=== PATIENT | male | born 1980 | race Caucasian/White ===

== ENCOUNTER 2023-04-20 08:13 | Outpatient (OUT) | payer BC, SELFPAY ==
[2023-04-20 08:46] LABS: Basophils Absolute Auto 0.2 10^3/uL (0.0-0.1); Basophils Percent Auto 1.9 % (0.2-2.0); Eosinophils Absolute Auto 0.7 10^3/uL (0.0-0.7); Eosinophils Percent Auto 7.8 % (0.9-7.0); Hematocrit 32.8 % (42.0-54.0); Hemoglobin 10.8 g/dL (14.0-18.0); Immature Granulocytes Abs Auto 0.02 10^3/uL (0.00-0.03); Immature Granulocytes Pct Auto 0.2 % (0.0-0.5); Lymphocytes Absolute Auto 1.3 10^3/uL (1.2-3.8); Lymphocytes Percent Auto 13.9 % (20.5-60.0); Mean Corpuscular HGB Conc 32.9 g/dL (29.9-35.2); Mean Corpuscular Hemoglobin 34.6 pg (25.9-34.0); Mean Corpuscular Volume 105.1 fL (80.0-94.0); Mean Platelet Volume 8.7 fL (9.5-13.5); Monocytes Absolute Auto 0.9 10^3/uL (0.3-0.8); Monocytes Percent Auto 9.7 % (1.7-12.0); Neutrophils Absolute Auto 6.2 10^3/uL (1.4-6.5); Neutrophils Percent Auto 66.5 % (43.0-75.0); Platelet Count 137 10^3/uL (150-450); Red Blood Count 3.12 10^6/uL (4.70-6.10); Red Cell Distribution Width 17.7 % (11.0-15.0); White Blood Count 9.4 10^3/uL (4.0-11.0)
[2023-04-20 09:15] LABS: BOX Test Sent Out Y
[2023-04-20 09:19] LABS: Alanine Aminotransferase 26 U/L (16-63); Albumin Globulin Ratio 0.7; Albumin Level 2.1 g/dL (3.4-5.0); Alkaline Phosphatase 82 U/L (46-116); Anion Gap 6.9; Aspartate Amino Transferase 17 U/L (15-37); BUN Creatinine Ratio 11.8; Bilirubin Total 0.6 mg/dL (0.2-1.0); Calcium 8.5 mg/dL (8.5-10.1); Carbon Dioxide 33.3 mmol/L (21.0-32.0); Chloride 105 mmol/L (98-107); Estimated GFR (African America >60 (>=60); Estimated GFR (Non-African Ame >60 (>=60); Gamma Glutamyl Transpeptidase 152 U/L (15-85); Glucose 80 mg/dL (74-106); Magnesium 1.5 mg/dL (1.8-2.4); Phosphorus 3.4 mg/dL (2.6-4.7); Potassium 4.2 mmol/L (3.5-5.1); Sodium 141 mmol/L (136-145); Total Protein 5.1 g/dL (6.4-8.2)
[2023-04-23 09:08] LABS: Basophils Absolute Auto 0.1 10^3/uL (0.0-0.1); Basophils Percent Auto 2.1 % (0.2-2.0); Eosinophils Absolute Auto 0.5 10^3/uL (0.0-0.7); Eosinophils Percent Auto 8.8 % (0.9-7.0); Hematocrit 32.6 % (42.0-54.0); Hemoglobin 10.7 g/dL (14.0-18.0); Immature Granulocytes Abs Auto 0.01 10^3/uL (0.00-0.03); Immature Granulocytes Pct Auto 0.2 % (0.0-0.5); Lymphocytes Absolute Auto 1.1 10^3/uL (1.2-3.8); Lymphocytes Percent Auto 19.2 % (20.5-60.0); Mean Corpuscular HGB Conc 32.8 g/dL (29.9-35.2); Mean Corpuscular Hemoglobin 34.1 pg (25.9-34.0); Mean Corpuscular Volume 103.8 fL (80.0-94.0); Mean Platelet Volume 8.6 fL (9.5-13.5); Monocytes Absolute Auto 0.5 10^3/uL (0.3-0.8); Monocytes Percent Auto 9.1 % (1.7-12.0); Neutrophils Absolute Auto 3.5 10^3/uL (1.4-6.5); Neutrophils Percent Auto 60.6 % (43.0-75.0); Platelet Count 114 10^3/uL (150-450); Red Blood Count 3.14 10^6/uL (4.70-6.10); White Blood Count 5.8 10^3/uL (4.0-11.0)
[2023-04-23 10:33] LABS: Alanine Aminotransferase 24 U/L (16-63); Albumin Globulin Ratio 0.8; Albumin Level 2.4 g/dL (3.4-5.0); Alkaline Phosphatase 82 U/L (46-116); Anion Gap 6.8; Aspartate Amino Transferase 15 U/L (15-37); BUN Creatinine Ratio 8.7; Bilirubin Total 0.6 mg/dL (0.2-1.0); Calcium 8.8 mg/dL (8.5-10.1); Carbon Dioxide 34.7 mmol/L (21.0-32.0); Chloride 102 mmol/L (98-107); Estimated GFR (African America >60 (>=60); Estimated GFR (Non-African Ame >60 (>=60); Gamma Glutamyl Transpeptidase 138 U/L (15-85); Globulin 3.2 g/dL; Glucose 78 mg/dL (74-106); Magnesium 1.3 mg/dL (1.8-2.4); Phosphorus 3.6 mg/dL (2.6-4.7); Potassium 3.5 mmol/L (3.5-5.1); Sodium 140 mmol/L (136-145); Total Protein 5.6 g/dL (6.4-8.2)
== END 2023-04-20 08:14 | disposition home or self-care (01) ==
LOC: LAB 08:20
DX: K76.9 Liver disease, unspecified (principal); Z48.23 Encounter for aftercare following liver transplant; Z94.4 Liver transplant status; Z41.8 Encounter for other procedures for purposes other than remedying health state; E61.2 Magnesium deficiency; E83.30 Disorder of phosphorus metabolism, unspecified; R73.02 Impaired glucose tolerance (oral)
CPT/HCPCS: 36415; 80053; 82977; 83735; 84100; 85025

== ENCOUNTER 2023-04-23 08:30 | Outpatient (OUT) | payer BC, SELFPAY | END 2023-04-23 08:31 | disposition home or self-care (01) | LOC: LAB 04-28 15:40 | DX: K76.9 Liver disease, unspecified (principal); Z48.23 Encounter for aftercare following liver transplant; Z94.4 Liver transplant status; Z41.8 Encounter for other procedures for purposes other than remedying health state; E61.2 Magnesium deficiency; E83.30 Disorder of phosphorus metabolism, unspecified; R73.02 Impaired glucose tolerance (oral) | CPT/HCPCS: 36415; 80053; 82977; 83735; 84100; 85025 ==

== ENCOUNTER 2023-04-28 07:52 | Outpatient (RCR) | payer BC, SELFPAY ==
[2023-04-28 08:17] LABS: Basophils Absolute Auto 0.1 10^3/uL (0.0-0.1); Basophils Percent Auto 2.2 % (0.2-2.0); Eosinophils Percent Auto 19.4 % (0.9-7.0); Hematocrit 33.1 % (42.0-54.0); Hemoglobin 10.8 g/dL (14.0-18.0); Immature Granulocytes Abs Auto 0.01 10^3/uL (0.00-0.03); Immature Granulocytes Pct Auto 0.2 % (0.0-0.5); Lymphocytes Absolute Auto 1.2 10^3/uL (1.2-3.8); Lymphocytes Percent Auto 23.7 % (20.5-60.0); Mean Corpuscular HGB Conc 32.6 g/dL (29.9-35.2); Mean Corpuscular Hemoglobin 33.5 pg (25.9-34.0); Mean Corpuscular Volume 102.8 fL (80.0-94.0); Mean Platelet Volume 8.6 fL (9.5-13.5); Monocytes Absolute Auto 0.5 10^3/uL (0.3-0.8); Monocytes Percent Auto 10.9 % (1.7-12.0); Neutrophils Absolute Auto 2.2 10^3/uL (1.4-6.5); Neutrophils Percent Auto 43.6 % (43.0-75.0); Platelet Count 166 10^3/uL (150-450); Red Blood Count 3.22 10^6/uL (4.70-6.10); Red Cell Distribution Width 15.8 % (11.0-15.0); White Blood Count 4.9 10^3/uL (4.0-11.0)
[2023-04-28 08:49] LABS: Alanine Aminotransferase 20 U/L (16-63); Albumin Globulin Ratio 0.8; Albumin Level 2.7 g/dL (3.4-5.0); Alkaline Phosphatase 84 U/L (46-116); Aspartate Amino Transferase 14 U/L (15-37); BUN Creatinine Ratio 10.3; Bilirubin Total 0.5 mg/dL (0.2-1.0); Carbon Dioxide 34.9 mmol/L (21.0-32.0); Chloride 103 mmol/L (98-107); Estimated GFR (African America >60 (>=60); Estimated GFR (Non-African Ame >60 (>=60); Gamma Glutamyl Transpeptidase 126 U/L (15-85); Globulin 3.3 g/dL; Glucose 81 mg/dL (74-106); Magnesium 1.5 mg/dL (1.8-2.4); Phosphorus 3.3 mg/dL (2.6-4.7); Potassium 4.9 mmol/L (3.5-5.1); Sodium 140 mmol/L (136-145)
[2023-04-30 08:35] LABS: Basophils Absolute Auto 0.1 10^3/uL (0.0-0.1); Basophils Percent Auto 1.6 % (0.2-2.0); Eosinophils Absolute Auto 0.9 10^3/uL (0.0-0.7); Eosinophils Percent Auto 17.8 % (0.9-7.0); Hematocrit 32.1 % (42.0-54.0); Hemoglobin 10.6 g/dL (14.0-18.0); Immature Granulocytes Abs Auto 0.01 10^3/uL (0.00-0.03); Immature Granulocytes Pct Auto 0.2 % (0.0-0.5); Lymphocytes Absolute Auto 1.2 10^3/uL (1.2-3.8); Lymphocytes Percent Auto 24.8 % (20.5-60.0); Mean Corpuscular Hemoglobin 33.2 pg (25.9-34.0); Mean Corpuscular Volume 100.6 fL (80.0-94.0); Mean Platelet Volume 8.2 fL (9.5-13.5); Monocytes Absolute Auto 0.6 10^3/uL (0.3-0.8); Monocytes Percent Auto 11.9 % (1.7-12.0); Neutrophils Absolute Auto 2.2 10^3/uL (1.4-6.5); Neutrophils Percent Auto 43.7 % (43.0-75.0); Platelet Count 176 10^3/uL (150-450); Red Blood Count 3.19 10^6/uL (4.70-6.10); Red Cell Distribution Width 15.3 % (11.0-15.0)
[2023-04-30 09:12] LABS: Alanine Aminotransferase 19 U/L (16-63); Albumin Globulin Ratio 0.8; Albumin Level 2.8 g/dL (3.4-5.0); Alkaline Phosphatase 91 U/L (46-116); Anion Gap 8.9; Aspartate Amino Transferase 18 U/L (15-37); BUN Creatinine Ratio 11.8; Bilirubin Total 0.5 mg/dL (0.2-1.0); Calcium 9.5 mg/dL (8.5-10.1); Chloride 103 mmol/L (98-107); Cholesterol 163 mg/dL (<=200); Estimated GFR (African America >60 (>=60); Estimated GFR (Non-African Ame >60 (>=60); Gamma Glutamyl Transpeptidase 121 U/L (15-85); Globulin 3.3 g/dL; Glucose 83 mg/dL (74-106); HDL Cholesterol 55 mg/dL (40-60); Magnesium 1.6 mg/dL (1.8-2.4); Phosphorus 3.6 mg/dL (2.6-4.7); Potassium 4.9 mmol/L (3.5-5.1); Sodium 136 mmol/L (136-145); Total Protein 6.1 g/dL (6.4-8.2); Triglycerides 105 mg/dL (<=150)
[2023-05-04 09:25] LABS: Basophils Absolute Auto 0.1 10^3/uL (0.0-0.1); Basophils Percent Auto 2.2 % (0.2-2.0); Eosinophils Absolute Auto 0.6 10^3/uL (0.0-0.7); Eosinophils Percent Auto 11.5 % (0.9-7.0); Hematocrit 33.9 % (42.0-54.0); Hemoglobin 11.2 g/dL (14.0-18.0); Immature Granulocytes Abs Auto 0.01 10^3/uL (0.00-0.03); Immature Granulocytes Pct Auto 0.2 % (0.0-0.5); Lymphocytes Absolute Auto 1.3 10^3/uL (1.2-3.8); Lymphocytes Percent Auto 24.3 % (20.5-60.0); Mean Corpuscular Hemoglobin 32.7 pg (25.9-34.0); Mean Corpuscular Volume 98.8 fL (80.0-94.0); Mean Platelet Volume 8.3 fL (9.5-13.5); Monocytes Absolute Auto 0.7 10^3/uL (0.3-0.8); Monocytes Percent Auto 12.2 % (1.7-12.0); Neutrophils Absolute Auto 2.7 10^3/uL (1.4-6.5); Neutrophils Percent Auto 49.6 % (43.0-75.0); Platelet Count 215 10^3/uL (150-450); Red Blood Count 3.43 10^6/uL (4.70-6.10); Red Cell Distribution Width 14.8 % (11.0-15.0); White Blood Count 5.5 10^3/uL (4.0-11.0)
[2023-05-04 10:47] LABS: Anion Gap 8.2; BUN Creatinine Ratio 12.1; Calcium 9.4 mg/dL (8.5-10.1); Carbon Dioxide 29.9 mmol/L (21.0-32.0); Chloride 105 mmol/L (98-107); Estimated GFR (African America >60 (>=60); Estimated GFR (Non-African Ame >60 (>=60); Glucose 83 mg/dL (74-106); Potassium 5.1 mmol/L (3.5-5.1); Sodium 138 mmol/L (136-145)
[2023-05-04 10:48] LABS: Alanine Aminotransferase 19 U/L (16-63); Albumin Globulin Ratio 0.9; Albumin Level 2.9 g/dL (3.4-5.0); Alkaline Phosphatase 95 U/L (46-116); Aspartate Amino Transferase 17 U/L (15-37); Bilirubin Total 0.5 mg/dL (0.2-1.0); Gamma Glutamyl Transpeptidase 109 U/L (15-85); Globulin 3.4 g/dL; Magnesium 1.4 mg/dL (1.8-2.4); Phosphorus 3.6 mg/dL (2.6-4.7); Total Protein 6.3 g/dL (6.4-8.2)
[2023-05-07 08:21] LABS: Basophils Absolute Auto 0.1 10^3/uL (0.0-0.1); Basophils Percent Auto 1.7 % (0.2-2.0); Eosinophils Absolute Auto 0.4 10^3/uL (0.0-0.7); Eosinophils Percent Auto 5.7 % (0.9-7.0); Hematocrit 34.8 % (42.0-54.0); Hemoglobin 11.7 g/dL (14.0-18.0); Immature Granulocytes Abs Auto 0.01 10^3/uL (0.00-0.03); Immature Granulocytes Pct Auto 0.2 % (0.0-0.5); Lymphocytes Absolute Auto 1.7 10^3/uL (1.2-3.8); Lymphocytes Percent Auto 25.5 % (20.5-60.0); Mean Corpuscular HGB Conc 33.6 g/dL (29.9-35.2); Mean Corpuscular Hemoglobin 33.3 pg (25.9-34.0); Mean Corpuscular Volume 99.1 fL (80.0-94.0); Mean Platelet Volume 8.7 fL (9.5-13.5); Monocytes Absolute Auto 0.8 10^3/uL (0.3-0.8); Monocytes Percent Auto 11.7 % (1.7-12.0); Neutrophils Absolute Auto 3.6 10^3/uL (1.4-6.5); Neutrophils Percent Auto 55.2 % (43.0-75.0); Platelet Count 164 10^3/uL (150-450); Red Blood Count 3.51 10^6/uL (4.70-6.10); Red Cell Distribution Width 14.3 % (11.0-15.0); White Blood Count 6.5 10^3/uL (4.0-11.0)
[2023-05-07 08:55] LABS: Alanine Aminotransferase 16 U/L (16-63); Albumin Level 3.2 g/dL (3.4-5.0); Alkaline Phosphatase 100 U/L (46-116); Anion Gap 9.9; Aspartate Amino Transferase 15 U/L (15-37); BUN Creatinine Ratio 11.9; Bilirubin Total 0.6 mg/dL (0.2-1.0); Calcium 9.5 mg/dL (8.5-10.1); Carbon Dioxide 31.2 mmol/L (21.0-32.0); Chloride 102 mmol/L (98-107); Estimated GFR (African America >60 (>=60); Estimated GFR (Non-African Ame 58 (>=60); Gamma Glutamyl Transpeptidase 103 U/L (15-85); Globulin 3.2 g/dL; Glucose 92 mg/dL (74-106); Magnesium 1.4 mg/dL (1.8-2.4); Phosphorus 4.6 mg/dL (2.6-4.7); Potassium 5.1 mmol/L (3.5-5.1); Sodium 138 mmol/L (136-145); Total Protein 6.4 g/dL (6.4-8.2)
[2023-05-07 09:14] LABS: BOX Test Sent Out Y
[2023-05-11 08:12] LABS: Basophils Absolute Auto 0.1 10^3/uL (0.0-0.1); Basophils Percent Auto 1.8 % (0.2-2.0); Eosinophils Absolute Auto 0.3 10^3/uL (0.0-0.7); Eosinophils Percent Auto 4.9 % (0.9-7.0); Hematocrit 36.8 % (42.0-54.0); Hemoglobin 12.1 g/dL (14.0-18.0); Immature Granulocytes Abs Auto 0.01 10^3/uL (0.00-0.03); Immature Granulocytes Pct Auto 0.2 % (0.0-0.5); Lymphocytes Absolute Auto 1.4 10^3/uL (1.2-3.8); Lymphocytes Percent Auto 23.5 % (20.5-60.0); Mean Corpuscular HGB Conc 32.9 g/dL (29.9-35.2); Mean Corpuscular Hemoglobin 32.3 pg (25.9-34.0); Mean Corpuscular Volume 98.1 fL (80.0-94.0); Mean Platelet Volume 8.9 fL (9.5-13.5); Monocytes Absolute Auto 0.7 10^3/uL (0.3-0.8); Monocytes Percent Auto 10.8 % (1.7-12.0); Neutrophils Absolute Auto 3.6 10^3/uL (1.4-6.5); Neutrophils Percent Auto 58.8 % (43.0-75.0); Platelet Count 161 10^3/uL (150-450); Red Blood Count 3.75 10^6/uL (4.70-6.10); Red Cell Distribution Width 13.7 % (11.0-15.0); White Blood Count 6.1 10^3/uL (4.0-11.0)
[2023-05-11 10:18] LABS: Alanine Aminotransferase 17 U/L (16-63); Albumin Level 3.4 g/dL (3.4-5.0); Alkaline Phosphatase 107 U/L (46-116); Anion Gap 10.8; Aspartate Amino Transferase 16 U/L (15-37); BUN Creatinine Ratio 14.6; Bilirubin Total 0.5 mg/dL (0.2-1.0); Calcium 9.4 mg/dL (8.5-10.1); Carbon Dioxide 26.4 mmol/L (21.0-32.0); Chloride 104 mmol/L (98-107); Estimated GFR (African America >60 (>=60); Estimated GFR (Non-African Ame >60 (>=60); Gamma Glutamyl Transpeptidase 109 U/L (15-85); Globulin 3.3 g/dL; Glucose 79 mg/dL (74-106); Magnesium 1.4 mg/dL (1.8-2.4); Phosphorus 3.2 mg/dL (2.6-4.7); Potassium 4.2 mmol/L (3.5-5.1); Sodium 137 mmol/L (136-145); Total Protein 6.7 g/dL (6.4-8.2)
[2023-05-14 08:24] LABS: Basophils Absolute Auto 0.1 10^3/uL (0.0-0.1); Basophils Percent Auto 1.6 % (0.2-2.0); Eosinophils Absolute Auto 0.3 10^3/uL (0.0-0.7); Eosinophils Percent Auto 5.1 % (0.9-7.0); Hematocrit 36.6 % (42.0-54.0); Immature Granulocytes Abs Auto 0.01 10^3/uL (0.00-0.03); Immature Granulocytes Pct Auto 0.2 % (0.0-0.5); Lymphocytes Absolute Auto 1.5 10^3/uL (1.2-3.8); Lymphocytes Percent Auto 26.5 % (20.5-60.0); Mean Corpuscular HGB Conc 32.8 g/dL (29.9-35.2); Mean Corpuscular Hemoglobin 31.3 pg (25.9-34.0); Mean Corpuscular Volume 95.6 fL (80.0-94.0); Mean Platelet Volume 8.9 fL (9.5-13.5); Monocytes Absolute Auto 0.6 10^3/uL (0.3-0.8); Monocytes Percent Auto 9.8 % (1.7-12.0); Neutrophils Absolute Auto 3.2 10^3/uL (1.4-6.5); Neutrophils Percent Auto 56.8 % (43.0-75.0); Platelet Count 181 10^3/uL (150-450); Red Blood Count 3.83 10^6/uL (4.70-6.10); Red Cell Distribution Width 13.3 % (11.0-15.0); White Blood Count 5.7 10^3/uL (4.0-11.0)
[2023-05-14 09:14] LABS: Alanine Aminotransferase 17 U/L (16-63); Albumin Globulin Ratio 1.1; Albumin Level 3.5 g/dL (3.4-5.0); Alkaline Phosphatase 95 U/L (46-116); Anion Gap 8.6; Aspartate Amino Transferase 13 U/L (15-37); BUN Creatinine Ratio 13.6; Bilirubin Total 0.6 mg/dL (0.2-1.0); Calcium 9.6 mg/dL (8.5-10.1); Carbon Dioxide 33.2 mmol/L (21.0-32.0); Chloride 101 mmol/L (98-107); Estimated GFR (African America >60 (>=60); Estimated GFR (Non-African Ame 59 (>=60); Gamma Glutamyl Transpeptidase 90 U/L (15-85); Globulin 3.3 g/dL; Glucose 96 mg/dL (74-106); Magnesium 1.5 mg/dL (1.8-2.4); Phosphorus 3.9 mg/dL (2.6-4.7); Potassium 4.8 mmol/L (3.5-5.1); Sodium 138 mmol/L (136-145); Total Protein 6.8 g/dL (6.4-8.2)
[2023-05-14 11:57] LABS: BOX Test Sent Out Y
[2023-05-21 08:25] LABS: Basophils Absolute Auto 0.1 10^3/uL (0.0-0.1); Basophils Percent Auto 1.2 % (0.2-2.0); Eosinophils Absolute Auto 0.3 10^3/uL (0.0-0.7); Eosinophils Percent Auto 5.5 % (0.9-7.0); Hematocrit 35.4 % (42.0-54.0); Immature Granulocytes Abs Auto 0.01 10^3/uL (0.00-0.03); Immature Granulocytes Pct Auto 0.2 % (0.0-0.5); Lymphocytes Absolute Auto 1.6 10^3/uL (1.2-3.8); Lymphocytes Percent Auto 26.7 % (20.5-60.0); Mean Corpuscular HGB Conc 33.9 g/dL (29.9-35.2); Mean Corpuscular Hemoglobin 32.1 pg (25.9-34.0); Mean Corpuscular Volume 94.7 fL (80.0-94.0); Mean Platelet Volume 8.7 fL (9.5-13.5); Monocytes Absolute Auto 0.5 10^3/uL (0.3-0.8); Monocytes Percent Auto 9.1 % (1.7-12.0); Neutrophils Absolute Auto 3.4 10^3/uL (1.4-6.5); Neutrophils Percent Auto 57.3 % (43.0-75.0); Platelet Count 162 10^3/uL (150-450); Red Blood Count 3.74 10^6/uL (4.70-6.10); Red Cell Distribution Width 13.2 % (11.0-15.0)
[2023-05-21 09:29] LABS: Alanine Aminotransferase 19 U/L (16-63); Albumin Globulin Ratio 1.2; Albumin Level 3.6 g/dL (3.4-5.0); Alkaline Phosphatase 84 U/L (46-116); Anion Gap 10.7; Aspartate Amino Transferase 17 U/L (15-37); BUN Creatinine Ratio 12.8; Bilirubin Total 0.5 mg/dL (0.2-1.0); Calcium 9.3 mg/dL (8.5-10.1); Carbon Dioxide 28.5 mmol/L (21.0-32.0); Chloride 104 mmol/L (98-107); Estimated GFR (African America >60 (>=60); Estimated GFR (Non-African Ame >60 (>=60); Gamma Glutamyl Transpeptidase 64 U/L (15-85); Glucose 93 mg/dL (74-106); Magnesium 1.6 mg/dL (1.8-2.4); Phosphorus 3.8 mg/dL (2.6-4.7); Potassium 5.2 mmol/L (3.5-5.1); Sodium 138 mmol/L (136-145); Total Protein 6.6 g/dL (6.4-8.2)
[2023-05-21 15:37] LABS: BOX Test Sent Out y
== END 2023-05-23 11:54 | disposition home or self-care (01) ==
LOC: LAB 07:52
DX: K76.9 Liver disease, unspecified (principal); Z48.23 Encounter for aftercare following liver transplant; Z94.4 Liver transplant status; Z41.8 Encounter for other procedures for purposes other than remedying health state; E61.2 Magnesium deficiency; E83.30 Disorder of phosphorus metabolism, unspecified; R73.02 Impaired glucose tolerance (oral)
CPT/HCPCS: 36415; 80053; 80061; 80197; 82977; 83735; 84100; 85025; 87497

== ENCOUNTER 2023-05-25 08:05 | Outpatient (RCR) | payer BC, SELFPAY ==
[2023-05-25 08:55] LABS: Basophils Absolute Auto 0.1 10^3/uL (0.0-0.1); Basophils Percent Auto 0.9 % (0.2-2.0); Eosinophils Absolute Auto 0.4 10^3/uL (0.0-0.7); Hematocrit 37.7 % (42.0-54.0); Hemoglobin 12.5 g/dL (14.0-18.0); Immature Granulocytes Abs Auto 0.01 10^3/uL (0.00-0.03); Immature Granulocytes Pct Auto 0.2 % (0.0-0.5); Lymphocytes Absolute Auto 1.6 10^3/uL (1.2-3.8); Lymphocytes Percent Auto 28.4 % (20.5-60.0); Mean Corpuscular HGB Conc 33.2 g/dL (29.9-35.2); Mean Corpuscular Hemoglobin 31.3 pg (25.9-34.0); Mean Corpuscular Volume 94.3 fL (80.0-94.0); Mean Platelet Volume 9.5 fL (9.5-13.5); Monocytes Absolute Auto 0.5 10^3/uL (0.3-0.8); Monocytes Percent Auto 9.5 % (1.7-12.0); Platelet Count 165 10^3/uL (150-450); White Blood Count 5.6 10^3/uL (4.0-11.0)
[2023-05-25 09:29] LABS: Alanine Aminotransferase 19 U/L (16-63); Albumin Globulin Ratio 1.2; Albumin Level 3.5 g/dL (3.4-5.0); Alkaline Phosphatase 81 U/L (46-116); Aspartate Amino Transferase 15 U/L (15-37); BUN Creatinine Ratio 16.5; Bilirubin Total 0.5 mg/dL (0.2-1.0); Calcium 9.2 mg/dL (8.5-10.1); Carbon Dioxide 29.7 mmol/L (21.0-32.0); Chloride 103 mmol/L (98-107); Estimated GFR (African America >60 (>=60); Estimated GFR (Non-African Ame >60 (>=60); Gamma Glutamyl Transpeptidase 56 U/L (15-85); Glucose 91 mg/dL (74-106); Magnesium 1.5 mg/dL (1.8-2.4); Phosphorus 4.1 mg/dL (2.6-4.7); Potassium 4.7 mmol/L (3.5-5.1); Sodium 138 mmol/L (136-145); Total Protein 6.5 g/dL (6.4-8.2)
[2023-05-28 08:20] LABS: Basophils Absolute Auto 0.1 10^3/uL (0.0-0.1); Basophils Percent Auto 1.3 % (0.2-2.0); Eosinophils Absolute Auto 0.4 10^3/uL (0.0-0.7); Eosinophils Percent Auto 7.1 % (0.9-7.0); Hematocrit 37.2 % (42.0-54.0); Hemoglobin 12.4 g/dL (14.0-18.0); Immature Granulocytes Abs Auto 0.01 10^3/uL (0.00-0.03); Immature Granulocytes Pct Auto 0.2 % (0.0-0.5); Lymphocytes Absolute Auto 1.9 10^3/uL (1.2-3.8); Lymphocytes Percent Auto 31.5 % (20.5-60.0); Mean Corpuscular HGB Conc 33.3 g/dL (29.9-35.2); Mean Corpuscular Hemoglobin 31.2 pg (25.9-34.0); Mean Corpuscular Volume 93.5 fL (80.0-94.0); Monocytes Absolute Auto 0.7 10^3/uL (0.3-0.8); Monocytes Percent Auto 10.9 % (1.7-12.0); Platelet Count 153 10^3/uL (150-450); Red Blood Count 3.98 10^6/uL (4.70-6.10); Red Cell Distribution Width 12.8 % (11.0-15.0); White Blood Count 6.1 10^3/uL (4.0-11.0)
[2023-05-28 08:31] LABS: BOX Test Sent Out Y
[2023-05-28 09:00] LABS: Alanine Aminotransferase 17 U/L (16-63); Albumin Globulin Ratio 1.2; Albumin Level 3.5 g/dL (3.4-5.0); Alkaline Phosphatase 79 U/L (46-116); Anion Gap 10.9; Aspartate Amino Transferase 15 U/L (15-37); BUN Creatinine Ratio 12.7; Bilirubin Total 0.4 mg/dL (0.2-1.0); Calcium 9.3 mg/dL (8.5-10.1); Carbon Dioxide 28.8 mmol/L (21.0-32.0); Chloride 103 mmol/L (98-107); Estimated GFR (African America >60 (>=60); Estimated GFR (Non-African Ame >60 (>=60); Gamma Glutamyl Transpeptidase 53 U/L (15-85); Globulin 2.8 g/dL; Glucose 115 mg/dL (74-106); Magnesium 1.5 mg/dL (1.8-2.4); Phosphorus 4.1 mg/dL (2.6-4.7); Potassium 4.7 mmol/L (3.5-5.1); Sodium 138 mmol/L (136-145); Total Protein 6.3 g/dL (6.4-8.2)
[2023-06-01 10:13] LABS: Basophils Absolute Auto 0.1 10^3/uL (0.0-0.1); Eosinophils Absolute Auto 0.3 10^3/uL (0.0-0.7); Eosinophils Percent Auto 5.6 % (0.9-7.0); Hematocrit 37.7 % (42.0-54.0); Hemoglobin 12.9 g/dL (14.0-18.0); Immature Granulocytes Abs Auto 0.02 10^3/uL (0.00-0.03); Immature Granulocytes Pct Auto 0.3 % (0.0-0.5); Lymphocytes Absolute Auto 1.7 10^3/uL (1.2-3.8); Lymphocytes Percent Auto 29.2 % (20.5-60.0); Mean Corpuscular HGB Conc 34.2 g/dL (29.9-35.2); Mean Corpuscular Hemoglobin 31.2 pg (25.9-34.0); Mean Corpuscular Volume 91.3 fL (80.0-94.0); Mean Platelet Volume 9.4 fL (9.5-13.5); Monocytes Absolute Auto 0.5 10^3/uL (0.3-0.8); Monocytes Percent Auto 8.9 % (1.7-12.0); Neutrophils Absolute Auto 3.2 10^3/uL (1.4-6.5); Platelet Count 149 10^3/uL (150-450); Red Blood Count 4.13 10^6/uL (4.70-6.10); Red Cell Distribution Width 12.8 % (11.0-15.0); White Blood Count 5.9 10^3/uL (4.0-11.0)
[2023-06-01 10:42] LABS: Alanine Aminotransferase 24 U/L (16-63); Albumin Globulin Ratio 1.2; Albumin Level 3.6 g/dL (3.4-5.0); Alkaline Phosphatase 84 U/L (46-116); Anion Gap 10.7; Aspartate Amino Transferase 19 U/L (15-37); BUN Creatinine Ratio 15.8; Bilirubin Total 0.5 mg/dL (0.2-1.0); Calcium 9.4 mg/dL (8.5-10.1); Carbon Dioxide 28.9 mmol/L (21.0-32.0); Chloride 103 mmol/L (98-107); Estimated GFR (African America >60 (>=60); Estimated GFR (Non-African Ame >60 (>=60); Gamma Glutamyl Transpeptidase 55 U/L (15-85); Glucose 108 mg/dL (74-106); Magnesium 1.5 mg/dL (1.8-2.4); Phosphorus 3.5 mg/dL (2.6-4.7); Potassium 4.6 mmol/L (3.5-5.1); Sodium 138 mmol/L (136-145); Total Protein 6.6 g/dL (6.4-8.2)
[2023-06-04 08:56] LABS: Basophils Absolute Auto 0.1 10^3/uL (0.0-0.1); Basophils Percent Auto 1.1 % (0.2-2.0); Eosinophils Absolute Auto 0.3 10^3/uL (0.0-0.7); Eosinophils Percent Auto 6.5 % (0.9-7.0); Hematocrit 37.5 % (42.0-54.0); Hemoglobin 12.6 g/dL (14.0-18.0); Immature Granulocytes Abs Auto 0.01 10^3/uL (0.00-0.03); Immature Granulocytes Pct Auto 0.2 % (0.0-0.5); Lymphocytes Absolute Auto 1.5 10^3/uL (1.2-3.8); Lymphocytes Percent Auto 28.5 % (20.5-60.0); Mean Corpuscular HGB Conc 33.6 g/dL (29.9-35.2); Mean Corpuscular Hemoglobin 30.9 pg (25.9-34.0); Mean Corpuscular Volume 91.9 fL (80.0-94.0); Mean Platelet Volume 9.2 fL (9.5-13.5); Monocytes Absolute Auto 0.6 10^3/uL (0.3-0.8); Monocytes Percent Auto 11.8 % (1.7-12.0); Neutrophils Absolute Auto 2.7 10^3/uL (1.4-6.5); Neutrophils Percent Auto 51.9 % (43.0-75.0); Platelet Count 156 10^3/uL (150-450); Red Blood Count 4.08 10^6/uL (4.70-6.10); Red Cell Distribution Width 12.8 % (11.0-15.0); White Blood Count 5.3 10^3/uL (4.0-11.0)
[2023-06-04 09:25] LABS: Alanine Aminotransferase 23 U/L (16-63); Albumin Globulin Ratio 1.2; Albumin Level 3.7 g/dL (3.4-5.0); Alkaline Phosphatase 83 U/L (46-116); Anion Gap 7.8; Aspartate Amino Transferase 17 U/L (15-37); BUN Creatinine Ratio 13.5; Bilirubin Total 0.6 mg/dL (0.2-1.0); Calcium 9.1 mg/dL (8.5-10.1); Carbon Dioxide 29.8 mmol/L (21.0-32.0); Chloride 103 mmol/L (98-107); Estimated GFR (African America >60 (>=60); Estimated GFR (Non-African Ame >60 (>=60); Gamma Glutamyl Transpeptidase 50 U/L (15-85); Globulin 3.1 g/dL; Glucose 115 mg/dL (74-106); Magnesium 1.6 mg/dL (1.8-2.4); Phosphorus 3.6 mg/dL (2.6-4.7); Potassium 4.6 mmol/L (3.5-5.1); Sodium 136 mmol/L (136-145); Total Protein 6.8 g/dL (6.4-8.2)
[2023-06-08 08:18] LABS: Basophils Absolute Auto 0.1 10^3/uL (0.0-0.1); Basophils Percent Auto 1.6 % (0.2-2.0); Eosinophils Absolute Auto 0.4 10^3/uL (0.0-0.7); Hematocrit 39.2 % (42.0-54.0); Hemoglobin 13.5 g/dL (14.0-18.0); Immature Granulocytes Abs Auto 0.01 10^3/uL (0.00-0.03); Immature Granulocytes Pct Auto 0.2 % (0.0-0.5); Lymphocytes Absolute Auto 1.7 10^3/uL (1.2-3.8); Lymphocytes Percent Auto 30.5 % (20.5-60.0); Mean Corpuscular HGB Conc 34.4 g/dL (29.9-35.2); Mean Corpuscular Hemoglobin 31.1 pg (25.9-34.0); Mean Corpuscular Volume 90.3 fL (80.0-94.0); Mean Platelet Volume 8.9 fL (9.5-13.5); Monocytes Absolute Auto 0.6 10^3/uL (0.3-0.8); Monocytes Percent Auto 9.9 % (1.7-12.0); Neutrophils Absolute Auto 2.8 10^3/uL (1.4-6.5); Neutrophils Percent Auto 50.8 % (43.0-75.0); Platelet Count 159 10^3/uL (150-450); Red Blood Count 4.34 10^6/uL (4.70-6.10); Red Cell Distribution Width 12.7 % (11.0-15.0); White Blood Count 5.5 10^3/uL (4.0-11.0)
[2023-06-08 09:38] LABS: BOX Test Sent Out Y
[2023-06-08 10:31] LABS: Alanine Aminotransferase 15 U/L (16-63); Albumin Globulin Ratio 1.3; Albumin Level 3.8 g/dL (3.4-5.0); Alkaline Phosphatase 80 U/L (46-116); Anion Gap 9.4; Aspartate Amino Transferase 15 U/L (15-37); BUN Creatinine Ratio 13.6; Bilirubin Total 0.5 mg/dL (0.2-1.0); Calcium 9.3 mg/dL (8.5-10.1); Carbon Dioxide 30.9 mmol/L (21.0-32.0); Chloride 103 mmol/L (98-107); Estimated GFR (African America >60 (>=60); Estimated GFR (Non-African Ame >60 (>=60); Gamma Glutamyl Transpeptidase 44 U/L (15-85); Glucose 108 mg/dL (74-106); Magnesium 1.7 mg/dL (1.8-2.4); Phosphorus 3.9 mg/dL (2.6-4.7); Potassium 4.3 mmol/L (3.5-5.1); Sodium 139 mmol/L (136-145); Total Protein 6.8 g/dL (6.4-8.2)
[2023-06-11 08:36] LABS: Basophils Absolute Auto 0.1 10^3/uL (0.0-0.1); Basophils Percent Auto 1.4 % (0.2-2.0); Eosinophils Absolute Auto 0.3 10^3/uL (0.0-0.7); Eosinophils Percent Auto 5.7 % (0.9-7.0); Hematocrit 38.4 % (42.0-54.0); Hemoglobin 13.3 g/dL (14.0-18.0); Immature Granulocytes Abs Auto 0.02 10^3/uL (0.00-0.03); Immature Granulocytes Pct Auto 0.4 % (0.0-0.5); Lymphocytes Absolute Auto 1.6 10^3/uL (1.2-3.8); Lymphocytes Percent Auto 31.8 % (20.5-60.0); Mean Corpuscular HGB Conc 34.6 g/dL (29.9-35.2); Mean Corpuscular Hemoglobin 30.9 pg (25.9-34.0); Mean Corpuscular Volume 89.3 fL (80.0-94.0); Mean Platelet Volume 8.9 fL (9.5-13.5); Monocytes Absolute Auto 0.5 10^3/uL (0.3-0.8); Monocytes Percent Auto 9.8 % (1.7-12.0); Neutrophils Absolute Auto 2.6 10^3/uL (1.4-6.5); Neutrophils Percent Auto 50.9 % (43.0-75.0); Platelet Count 160 10^3/uL (150-450); Red Cell Distribution Width 12.7 % (11.0-15.0); White Blood Count 5.1 10^3/uL (4.0-11.0)
[2023-06-11 09:41] LABS: Alanine Aminotransferase 19 U/L (16-63); Albumin Globulin Ratio 1.3; Albumin Level 3.7 g/dL (3.4-5.0); Alkaline Phosphatase 81 U/L (46-116); Anion Gap 9.3; Aspartate Amino Transferase 17 U/L (15-37); BUN Creatinine Ratio 15.5; Bilirubin Total 0.6 mg/dL (0.2-1.0); Calcium 9.1 mg/dL (8.5-10.1); Carbon Dioxide 30.4 mmol/L (21.0-32.0); Chloride 102 mmol/L (98-107); Estimated GFR (African America >60 (>=60); Estimated GFR (Non-African Ame >60 (>=60); Gamma Glutamyl Transpeptidase 39 U/L (15-85); Globulin 2.9 g/dL; Glucose 96 mg/dL (74-106); Magnesium 1.7 mg/dL (1.8-2.4); Phosphorus 3.8 mg/dL (2.6-4.7); Potassium 4.7 mmol/L (3.5-5.1); Sodium 137 mmol/L (136-145); Total Protein 6.6 g/dL (6.4-8.2)
[2023-06-15 08:32] LABS: Basophils Absolute Auto 0.1 10^3/uL (0.0-0.1); Basophils Percent Auto 1.3 % (0.2-2.0); Eosinophils Absolute Auto 0.3 10^3/uL (0.0-0.7); Hematocrit 39.7 % (42.0-54.0); Hemoglobin 13.4 g/dL (14.0-18.0); Immature Granulocytes Abs Auto 0.02 10^3/uL (0.00-0.03); Immature Granulocytes Pct Auto 0.4 % (0.0-0.5); Lymphocytes Absolute Auto 1.8 10^3/uL (1.2-3.8); Lymphocytes Percent Auto 33.5 % (20.5-60.0); Mean Corpuscular HGB Conc 33.8 g/dL (29.9-35.2); Mean Corpuscular Hemoglobin 30.5 pg (25.9-34.0); Mean Corpuscular Volume 90.2 fL (80.0-94.0); Mean Platelet Volume 8.8 fL (9.5-13.5); Monocytes Absolute Auto 0.6 10^3/uL (0.3-0.8); Monocytes Percent Auto 10.6 % (1.7-12.0); Neutrophils Absolute Auto 2.6 10^3/uL (1.4-6.5); Neutrophils Percent Auto 49.2 % (43.0-75.0); Platelet Count 168 10^3/uL (150-450); Red Cell Distribution Width 12.5 % (11.0-15.0); White Blood Count 5.4 10^3/uL (4.0-11.0)
[2023-06-15 10:20] LABS: Alanine Aminotransferase 19 U/L (16-63); Albumin Globulin Ratio 1.3; Albumin Level 3.7 g/dL (3.4-5.0); Alkaline Phosphatase 82 U/L (46-116); Anion Gap 11.6; Aspartate Amino Transferase 16 U/L (15-37); BUN Creatinine Ratio 16.2; Bilirubin Total 0.5 mg/dL (0.2-1.0); Calcium 9.1 mg/dL (8.5-10.1); Carbon Dioxide 29.9 mmol/L (21.0-32.0); Chloride 103 mmol/L (98-107); Estimated GFR (African America >60 (>=60); Estimated GFR (Non-African Ame >60 (>=60); Gamma Glutamyl Transpeptidase 41 U/L (15-85); Globulin 2.9 g/dL; Glucose 90 mg/dL (74-106); Magnesium 1.5 mg/dL (1.8-2.4); Phosphorus 4.2 mg/dL (2.6-4.7); Potassium 4.5 mmol/L (3.5-5.1); Sodium 140 mmol/L (136-145); Total Protein 6.6 g/dL (6.4-8.2)
[2023-06-15 13:30] LABS: BOX Test Sent Out DONE
[2023-06-18 08:24] LABS: Basophils Absolute Auto 0.1 10^3/uL (0.0-0.1); Basophils Percent Auto 1.3 % (0.2-2.0); Eosinophils Absolute Auto 0.2 10^3/uL (0.0-0.7); Eosinophils Percent Auto 4.4 % (0.9-7.0); Hematocrit 39.9 % (42.0-54.0); Hemoglobin 13.4 g/dL (14.0-18.0); Lymphocytes Absolute Auto 1.9 10^3/uL (1.2-3.8); Lymphocytes Percent Auto 36.2 % (20.5-60.0); Mean Corpuscular HGB Conc 33.6 g/dL (29.9-35.2); Mean Corpuscular Hemoglobin 30.5 pg (25.9-34.0); Mean Corpuscular Volume 90.7 fL (80.0-94.0); Mean Platelet Volume 8.9 fL (9.5-13.5); Monocytes Absolute Auto 0.6 10^3/uL (0.3-0.8); Monocytes Percent Auto 10.6 % (1.7-12.0); Neutrophils Absolute Auto 2.5 10^3/uL (1.4-6.5); Neutrophils Percent Auto 47.5 % (43.0-75.0); Platelet Count 150 10^3/uL (150-450); Red Cell Distribution Width 12.6 % (11.0-15.0); White Blood Count 5.2 10^3/uL (4.0-11.0)
[2023-06-18 09:11] LABS: Alanine Aminotransferase 19 U/L (16-63); Albumin Globulin Ratio 1.3; Albumin Level 3.8 g/dL (3.4-5.0); Alkaline Phosphatase 84 U/L (46-116); Anion Gap 11.8; Aspartate Amino Transferase 18 U/L (15-37); Bilirubin Total 0.6 mg/dL (0.2-1.0); Calcium 9.2 mg/dL (8.5-10.1); Carbon Dioxide 27.6 mmol/L (21.0-32.0); Chloride 103 mmol/L (98-107); Estimated GFR (African America >60 (>=60); Estimated GFR (Non-African Ame >60 (>=60); Gamma Glutamyl Transpeptidase 36 U/L (15-85); Glucose 96 mg/dL (74-106); Magnesium 1.6 mg/dL (1.8-2.4); Phosphorus 4.2 mg/dL (2.6-4.7); Potassium 4.4 mmol/L (3.5-5.1); Sodium 138 mmol/L (136-145); Total Protein 6.8 g/dL (6.4-8.2)
[2023-06-18 10:04] LABS: BOX Test Sent Out Y
[2023-06-22 09:50] LABS: Basophils Absolute Auto 0.1 10^3/uL (0.0-0.1); Basophils Percent Auto 1.2 % (0.2-2.0); Eosinophils Absolute Auto 0.2 10^3/uL (0.0-0.7); Eosinophils Percent Auto 4.8 % (0.9-7.0); Hematocrit 40.2 % (42.0-54.0); Hemoglobin 13.6 g/dL (14.0-18.0); Lymphocytes Absolute Auto 1.8 10^3/uL (1.2-3.8); Lymphocytes Percent Auto 37.4 % (20.5-60.0); Mean Corpuscular HGB Conc 33.8 g/dL (29.9-35.2); Mean Corpuscular Hemoglobin 30.2 pg (25.9-34.0); Mean Corpuscular Volume 89.3 fL (80.0-94.0); Mean Platelet Volume 9.6 fL (9.5-13.5); Monocytes Absolute Auto 0.5 10^3/uL (0.3-0.8); Monocytes Percent Auto 10.3 % (1.7-12.0); Neutrophils Absolute Auto 2.2 10^3/uL (1.4-6.5); Neutrophils Percent Auto 46.3 % (43.0-75.0); Platelet Count 172 10^3/uL (150-450); Red Cell Distribution Width 12.5 % (11.0-15.0); White Blood Count 4.8 10^3/uL (4.0-11.0)
[2023-06-22 10:27] LABS: Alanine Aminotransferase 19 U/L (16-63); Albumin Globulin Ratio 1.2; Albumin Level 3.7 g/dL (3.4-5.0); Alkaline Phosphatase 86 U/L (46-116); Anion Gap 9.8; Aspartate Amino Transferase 12 U/L (15-37); BUN Creatinine Ratio 16.3; Bilirubin Total 0.5 mg/dL (0.2-1.0); Calcium 9.1 mg/dL (8.5-10.1); Carbon Dioxide 31.1 mmol/L (21.0-32.0); Chloride 104 mmol/L (98-107); Estimated GFR (African America >60 (>=60); Estimated GFR (Non-African Ame >60 (>=60); Gamma Glutamyl Transpeptidase 36 U/L (15-85); Glucose 95 mg/dL (74-106); Magnesium 1.6 mg/dL (1.8-2.4); Phosphorus 4.2 mg/dL (2.6-4.7); Potassium 4.9 mmol/L (3.5-5.1); Sodium 140 mmol/L (136-145); Total Protein 6.7 g/dL (6.4-8.2)
== END 2023-06-23 17:51 | disposition home or self-care (01) ==
LOC: LAB 08:05
DX: K76.9 Liver disease, unspecified (principal); Z48.23 Encounter for aftercare following liver transplant; Z94.4 Liver transplant status; Z41.8 Encounter for other procedures for purposes other than remedying health state; E61.2 Magnesium deficiency; E83.30 Disorder of phosphorus metabolism, unspecified; R73.02 Impaired glucose tolerance (oral)
CPT/HCPCS: 36415; 80053; 80321; 82977; 83735; 84100; 85025

== ENCOUNTER 2023-06-25 09:00 | Outpatient (RCR) | payer BC, SELFPAY ==
[2023-06-25 09:29] LABS: Basophils Absolute Auto 0.1 10^3/uL (0.0-0.1); Eosinophils Absolute Auto 0.3 10^3/uL (0.0-0.7); Eosinophils Percent Auto 5.2 % (0.9-7.0); Hematocrit 39.7 % (42.0-54.0); Hemoglobin 13.6 g/dL (14.0-18.0); Immature Granulocytes Abs Auto 0.01 10^3/uL (0.00-0.03); Immature Granulocytes Pct Auto 0.2 % (0.0-0.5); Lymphocytes Absolute Auto 1.7 10^3/uL (1.2-3.8); Lymphocytes Percent Auto 33.5 % (20.5-60.0); Mean Corpuscular HGB Conc 34.3 g/dL (29.9-35.2); Mean Corpuscular Hemoglobin 29.8 pg (25.9-34.0); Mean Corpuscular Volume 86.9 fL (80.0-94.0); Mean Platelet Volume 9.1 fL (9.5-13.5); Monocytes Absolute Auto 0.5 10^3/uL (0.3-0.8); Monocytes Percent Auto 9.8 % (1.7-12.0); Neutrophils Absolute Auto 2.5 10^3/uL (1.4-6.5); Neutrophils Percent Auto 50.3 % (43.0-75.0); Platelet Count 165 10^3/uL (150-450); Red Blood Count 4.57 10^6/uL (4.70-6.10); Red Cell Distribution Width 12.3 % (11.0-15.0)
[2023-06-25 09:41] LABS: BOX Test Sent Out Y
[2023-06-25 09:52] LABS: Alanine Aminotransferase 18 U/L (16-63); Albumin Globulin Ratio 1.3; Albumin Level 3.8 g/dL (3.4-5.0); Alkaline Phosphatase 87 U/L (46-116); Aspartate Amino Transferase 15 U/L (15-37); BUN Creatinine Ratio 14.9; Bilirubin Total 0.6 mg/dL (0.2-1.0); Calcium 9.1 mg/dL (8.5-10.1); Carbon Dioxide 29.6 mmol/L (21.0-32.0); Chloride 101 mmol/L (98-107); Estimated GFR (African America >60 (>=60); Estimated GFR (Non-African Ame >60 (>=60); Gamma Glutamyl Transpeptidase 35 U/L (15-85); Glucose 106 mg/dL (74-106); Magnesium 1.4 mg/dL (1.8-2.4); Phosphorus 4.6 mg/dL (2.6-4.7); Potassium 4.6 mmol/L (3.5-5.1); Sodium 136 mmol/L (136-145); Total Protein 6.8 g/dL (6.4-8.2)
[2023-06-29 08:40] LABS: Basophils Absolute Auto 0.1 10^3/uL (0.0-0.1); Basophils Percent Auto 1.3 % (0.2-2.0); Eosinophils Absolute Auto 0.3 10^3/uL (0.0-0.7); Eosinophils Percent Auto 5.4 % (0.9-7.0); Hematocrit 38.6 % (42.0-54.0); Hemoglobin 13.3 g/dL (14.0-18.0); Lymphocytes Absolute Auto 1.8 10^3/uL (1.2-3.8); Lymphocytes Percent Auto 37.8 % (20.5-60.0); Mean Corpuscular HGB Conc 34.5 g/dL (29.9-35.2); Mean Corpuscular Hemoglobin 30.3 pg (25.9-34.0); Mean Corpuscular Volume 87.9 fL (80.0-94.0); Mean Platelet Volume 10.3 fL (9.5-13.5); Monocytes Absolute Auto 0.5 10^3/uL (0.3-0.8); Monocytes Percent Auto 10.8 % (1.7-12.0); Neutrophils Absolute Auto 2.1 10^3/uL (1.4-6.5); Neutrophils Percent Auto 44.7 % (43.0-75.0); Platelet Count 150 10^3/uL (150-450); Red Blood Count 4.39 10^6/uL (4.70-6.10); Red Cell Distribution Width 12.3 % (11.0-15.0); White Blood Count 4.7 10^3/uL (4.0-11.0)
[2023-06-29 08:50] LABS: Alanine Aminotransferase 20 U/L (16-63); Albumin Globulin Ratio 1.2; Albumin Level 3.6 g/dL (3.4-5.0); Alkaline Phosphatase 88 U/L (46-116); Anion Gap 10.9; Aspartate Amino Transferase 18 U/L (15-37); BUN Creatinine Ratio 18.1; Bilirubin Total 0.6 mg/dL (0.2-1.0); Calcium 9.4 mg/dL (8.5-10.1); Carbon Dioxide 29.1 mmol/L (21.0-32.0); Chloride 102 mmol/L (98-107); Estimated GFR (African America >60 (>=60); Estimated GFR (Non-African Ame >60 (>=60); Gamma Glutamyl Transpeptidase 31 U/L (15-85); Globulin 3.1 g/dL; Glucose 98 mg/dL (74-106); Phosphorus 4.9 mg/dL (2.6-4.7); Sodium 137 mmol/L (136-145); Total Protein 6.7 g/dL (6.4-8.2)
[2023-06-29 09:18] LABS: Magnesium 1.6 mg/dL (1.8-2.4)
[2023-07-06 08:23] LABS: Basophils Absolute Auto 0.1 10^3/uL (0.0-0.1); Basophils Percent Auto 1.1 % (0.2-2.0); Eosinophils Absolute Auto 0.3 10^3/uL (0.0-0.7); Eosinophils Percent Auto 5.8 % (0.9-7.0); Hematocrit 38.2 % (42.0-54.0); Immature Granulocytes Abs Auto 0.01 10^3/uL (0.00-0.03); Immature Granulocytes Pct Auto 0.2 % (0.0-0.5); Lymphocytes Absolute Auto 1.9 10^3/uL (1.2-3.8); Lymphocytes Percent Auto 33.2 % (20.5-60.0); Mean Corpuscular Hemoglobin 29.8 pg (25.9-34.0); Mean Corpuscular Volume 87.6 fL (80.0-94.0); Mean Platelet Volume 9.5 fL (9.5-13.5); Monocytes Absolute Auto 0.6 10^3/uL (0.3-0.8); Monocytes Percent Auto 10.9 % (1.7-12.0); Neutrophils Absolute Auto 2.8 10^3/uL (1.4-6.5); Neutrophils Percent Auto 48.8 % (43.0-75.0); Platelet Count 163 10^3/uL (150-450); Red Blood Count 4.36 10^6/uL (4.70-6.10); Red Cell Distribution Width 12.4 % (11.0-15.0); White Blood Count 5.7 10^3/uL (4.0-11.0)
[2023-07-06 08:27] LABS: BOX Test Sent Out Y
[2023-07-06 08:51] LABS: Alanine Aminotransferase 23 U/L (16-63); Albumin Globulin Ratio 1.2; Albumin Level 3.6 g/dL (3.4-5.0); Alkaline Phosphatase 89 U/L (46-116); Anion Gap 10.6; Aspartate Amino Transferase 13 U/L (15-37); BUN Creatinine Ratio 17.8; Bilirubin Total 0.4 mg/dL (0.2-1.0); Calcium 8.8 mg/dL (8.5-10.1); Carbon Dioxide 31.2 mmol/L (21.0-32.0); Chloride 102 mmol/L (98-107); Estimated GFR (African America >60 (>=60); Estimated GFR (Non-African Ame >60 (>=60); Gamma Glutamyl Transpeptidase 31 U/L (15-85); Glucose 117 mg/dL (74-106); Phosphorus 4.3 mg/dL (2.6-4.7); Potassium 4.8 mmol/L (3.5-5.1); Sodium 139 mmol/L (136-145); Total Protein 6.6 g/dL (6.4-8.2)
[2023-07-06 09:12] LABS: Magnesium 1.6 mg/dL (1.8-2.4)
[2023-07-13 08:21] LABS: Basophils Absolute Auto 0.1 10^3/uL (0.0-0.1); Eosinophils Absolute Auto 0.3 10^3/uL (0.0-0.7); Eosinophils Percent Auto 5.9 % (0.9-7.0); Hematocrit 38.3 % (42.0-54.0); Hemoglobin 13.3 g/dL (14.0-18.0); Immature Granulocytes Abs Auto 0.02 10^3/uL (0.00-0.03); Immature Granulocytes Pct Auto 0.4 % (0.0-0.5); Lymphocytes Absolute Auto 1.8 10^3/uL (1.2-3.8); Lymphocytes Percent Auto 33.3 % (20.5-60.0); Mean Corpuscular HGB Conc 34.7 g/dL (29.9-35.2); Mean Corpuscular Hemoglobin 29.9 pg (25.9-34.0); Mean Corpuscular Volume 86.1 fL (80.0-94.0); Mean Platelet Volume 9.4 fL (9.5-13.5); Monocytes Absolute Auto 0.5 10^3/uL (0.3-0.8); Monocytes Percent Auto 9.1 % (1.7-12.0); Neutrophils Absolute Auto 2.6 10^3/uL (1.4-6.5); Neutrophils Percent Auto 50.3 % (43.0-75.0); Platelet Count 163 10^3/uL (150-450); Red Blood Count 4.45 10^6/uL (4.70-6.10); Red Cell Distribution Width 12.6 % (11.0-15.0); White Blood Count 5.3 10^3/uL (4.0-11.0)
[2023-07-13 09:05] LABS: BOX Test Sent Out Y
[2023-07-13 09:51] LABS: Alanine Aminotransferase 15 U/L (16-63); Albumin Globulin Ratio 1.3; Albumin Level 3.7 g/dL (3.4-5.0); Alkaline Phosphatase 89 U/L (46-116); Anion Gap 10.4; Aspartate Amino Transferase 15 U/L (15-37); BUN Creatinine Ratio 17.3; Bilirubin Total 0.5 mg/dL (0.2-1.0); Calcium 9.2 mg/dL (8.5-10.1); Carbon Dioxide 30.9 mmol/L (21.0-32.0); Chloride 103 mmol/L (98-107); Estimated GFR (African America >60 (>=60); Estimated GFR (Non-African Ame >60 (>=60); Gamma Glutamyl Transpeptidase 25 U/L (15-85); Globulin 2.9 g/dL; Glucose 105 mg/dL (74-106); Magnesium 1.5 mg/dL (1.8-2.4); Phosphorus 3.8 mg/dL (2.6-4.7); Potassium 4.3 mmol/L (3.5-5.1); Sodium 140 mmol/L (136-145); Total Protein 6.6 g/dL (6.4-8.2)
[2023-07-20 08:14] LABS: Basophils Absolute Auto 0.1 10^3/uL (0.0-0.1); Basophils Percent Auto 1.4 % (0.2-2.0); Eosinophils Absolute Auto 0.4 10^3/uL (0.0-0.7); Hemoglobin 13.6 g/dL (14.0-18.0); Immature Granulocytes Abs Auto 0.02 10^3/uL (0.00-0.03); Immature Granulocytes Pct Auto 0.4 % (0.0-0.5); Lymphocytes Absolute Auto 1.8 10^3/uL (1.2-3.8); Lymphocytes Percent Auto 34.4 % (20.5-60.0); Mean Corpuscular Hemoglobin 29.7 pg (25.9-34.0); Mean Corpuscular Volume 87.3 fL (80.0-94.0); Mean Platelet Volume 9.4 fL (9.5-13.5); Monocytes Absolute Auto 0.6 10^3/uL (0.3-0.8); Monocytes Percent Auto 11.7 % (1.7-12.0); Neutrophils Absolute Auto 2.3 10^3/uL (1.4-6.5); Neutrophils Percent Auto 45.1 % (43.0-75.0); Platelet Count 172 10^3/uL (150-450); Red Blood Count 4.58 10^6/uL (4.70-6.10); Red Cell Distribution Width 12.9 % (11.0-15.0); White Blood Count 5.1 10^3/uL (4.0-11.0)
[2023-07-20 09:25] LABS: Alanine Aminotransferase 23 U/L (16-63); Albumin Globulin Ratio 1.2; Albumin Level 3.5 g/dL (3.4-5.0); Alkaline Phosphatase 94 U/L (46-116); Anion Gap 9.5; Aspartate Amino Transferase 17 U/L (15-37); BUN Creatinine Ratio 17.8; Bilirubin Total 0.4 mg/dL (0.2-1.0); Calcium 8.7 mg/dL (8.5-10.1); Carbon Dioxide 31.9 mmol/L (21.0-32.0); Chloride 102 mmol/L (98-107); Estimated GFR (African America >60 (>=60); Estimated GFR (Non-African Ame >60 (>=60); Gamma Glutamyl Transpeptidase 34 U/L (15-85); Glucose 98 mg/dL (74-106); Phosphorus 4.4 mg/dL (2.6-4.7); Potassium 4.4 mmol/L (3.5-5.1); Sodium 139 mmol/L (136-145); Total Protein 6.5 g/dL (6.4-8.2)
[2023-07-20 09:47] LABS: Magnesium 1.6 mg/dL (1.8-2.4)
[2023-08-10 08:19] LABS: Basophils Absolute Auto 0.1 10^3/uL (0.0-0.1); Basophils Percent Auto 1.4 % (0.2-2.0); Eosinophils Absolute Auto 0.4 10^3/uL (0.0-0.7); Eosinophils Percent Auto 5.6 % (0.9-7.0); Hematocrit 40.1 % (42.0-54.0); Hemoglobin 13.6 g/dL (14.0-18.0); Immature Granulocytes Abs Auto 0.02 10^3/uL (0.00-0.03); Immature Granulocytes Pct Auto 0.3 % (0.0-0.5); Lymphocytes Percent Auto 30.6 % (20.5-60.0); Mean Corpuscular HGB Conc 33.9 g/dL (29.9-35.2); Mean Corpuscular Hemoglobin 29.5 pg (25.9-34.0); Mean Platelet Volume 9.4 fL (9.5-13.5); Monocytes Absolute Auto 0.7 10^3/uL (0.3-0.8); Monocytes Percent Auto 10.5 % (1.7-12.0); Neutrophils Absolute Auto 3.3 10^3/uL (1.4-6.5); Neutrophils Percent Auto 51.6 % (43.0-75.0); Platelet Count 171 10^3/uL (150-450); Red Blood Count 4.61 10^6/uL (4.70-6.10); Red Cell Distribution Width 12.6 % (11.0-15.0); White Blood Count 6.4 10^3/uL (4.0-11.0)
[2023-08-10 09:21] LABS: Alanine Aminotransferase 24 U/L (16-63); Albumin Globulin Ratio 1.1; Albumin Level 3.5 g/dL (3.4-5.0); Alkaline Phosphatase 96 U/L (46-116); Anion Gap 11.8; Aspartate Amino Transferase 13 U/L (15-37); BUN Creatinine Ratio 19.6; Bilirubin Total 0.5 mg/dL (0.2-1.0); Calcium 9.2 mg/dL (8.5-10.1); Carbon Dioxide 30.5 mmol/L (21.0-32.0); Chloride 100 mmol/L (98-107); Chol HDL Ratio 3.6; Cholesterol 169 mg/dL (<=200); Estimated GFR (African America >60 (>=60); Estimated GFR (Non-African Ame >60 (>=60); Gamma Glutamyl Transpeptidase 31 U/L (15-85); Globulin 3.3 g/dL; Glucose 101 mg/dL (74-106); HDL Cholesterol 47 mg/dL (40-60); Magnesium 1.9 mg/dL (1.8-2.4); Phosphorus 3.9 mg/dL (2.6-4.7); Potassium 4.3 mmol/L (3.5-5.1); Sodium 138 mmol/L (136-145); Total Protein 6.8 g/dL (6.4-8.2); Triglycerides 166 mg/dL (<=150); VLDL CHOLESTEROL 33.2 mg/dL
== END 2023-07-23 16:56 | disposition home or self-care (01) ==
LOC: LAB 09:00
DX: K76.9 Liver disease, unspecified (principal); Z48.23 Encounter for aftercare following liver transplant; Z94.4 Liver transplant status; Z41.8 Encounter for other procedures for purposes other than remedying health state; E61.2 Magnesium deficiency; E83.30 Disorder of phosphorus metabolism, unspecified; R73.02 Impaired glucose tolerance (oral)
CPT/HCPCS: 36415; 80053; 80321; 82977; 83735; 84100; 85025

== ENCOUNTER 2023-07-27 08:02 | Outpatient (RCR) | payer BC, SELFPAY ==
[2023-07-27 08:28] LABS: Basophils Absolute Auto 0.1 10^3/uL (0.0-0.1); Basophils Percent Auto 1.1 % (0.2-2.0); Eosinophils Absolute Auto 0.4 10^3/uL (0.0-0.7); Eosinophils Percent Auto 6.7 % (0.9-7.0); Hematocrit 39.8 % (42.0-54.0); Hemoglobin 13.7 g/dL (14.0-18.0); Immature Granulocytes Abs Auto 0.01 10^3/uL (0.00-0.03); Immature Granulocytes Pct Auto 0.2 % (0.0-0.5); Lymphocytes Absolute Auto 1.7 10^3/uL (1.2-3.8); Lymphocytes Percent Auto 31.2 % (20.5-60.0); Mean Corpuscular HGB Conc 34.4 g/dL (29.9-35.2); Mean Corpuscular Hemoglobin 29.5 pg (25.9-34.0); Mean Corpuscular Volume 85.6 fL (80.0-94.0); Mean Platelet Volume 9.4 fL (9.5-13.5); Monocytes Absolute Auto 0.6 10^3/uL (0.3-0.8); Monocytes Percent Auto 11.2 % (1.7-12.0); Neutrophils Absolute Auto 2.7 10^3/uL (1.4-6.5); Neutrophils Percent Auto 49.6 % (43.0-75.0); Platelet Count 174 10^3/uL (150-450); Red Blood Count 4.65 10^6/uL (4.70-6.10); Red Cell Distribution Width 12.8 % (11.0-15.0); White Blood Count 5.4 10^3/uL (4.0-11.0)
[2023-07-27 09:20] LABS: Alanine Aminotransferase 18 U/L (16-63); Albumin Globulin Ratio 1.2; Albumin Level 3.8 g/dL (3.4-5.0); Alkaline Phosphatase 93 U/L (46-116); Aspartate Amino Transferase 18 U/L (15-37); BUN Creatinine Ratio 18.6; Bilirubin Total 0.9 mg/dL (0.2-1.0); Calcium 9.3 mg/dL (8.5-10.1); Carbon Dioxide 30.5 mmol/L (21.0-32.0); Chloride 100 mmol/L (98-107); Estimated GFR (African America >60 (>=60); Estimated GFR (Non-African Ame >60 (>=60); Gamma Glutamyl Transpeptidase 35 U/L (15-85); Globulin 3.2 g/dL; Glucose 99 mg/dL (74-106); Magnesium 1.6 mg/dL (1.8-2.4); Phosphorus 4.1 mg/dL (2.6-4.7); Potassium 4.5 mmol/L (3.5-5.1); Sodium 138 mmol/L (136-145)
== END 2023-08-21 15:47 | disposition home or self-care (01) ==
LOC: LAB 08:02
DX: K76.9 Liver disease, unspecified (principal); Z48.23 Encounter for aftercare following liver transplant; Z94.4 Liver transplant status; Z41.8 Encounter for other procedures for purposes other than remedying health state; E83.30 Disorder of phosphorus metabolism, unspecified; R73.02 Impaired glucose tolerance (oral)
CPT/HCPCS: 36415; 80053; 80061; 82977; 83735; 84100; 85025

== ENCOUNTER 2023-08-25 10:21 | Outpatient (RCR) | payer BC, SELFPAY ==
[2023-08-25 10:53] LABS: Basophils Absolute Auto 0.1 10^3/uL (0.0-0.1); Basophils Percent Auto 1.3 % (0.2-2.0); Eosinophils Absolute Auto 0.4 10^3/uL (0.0-0.7); Eosinophils Percent Auto 6.3 % (0.9-7.0); Hematocrit 40.5 % (42.0-54.0); Hemoglobin 13.7 g/dL (14.0-18.0); Immature Granulocytes Abs Auto 0.01 10^3/uL (0.00-0.03); Immature Granulocytes Pct Auto 0.2 % (0.0-0.5); Lymphocytes Absolute Auto 1.7 10^3/uL (1.2-3.8); Lymphocytes Percent Auto 31.5 % (20.5-60.0); Mean Corpuscular HGB Conc 33.8 g/dL (29.9-35.2); Mean Corpuscular Hemoglobin 29.6 pg (25.9-34.0); Mean Corpuscular Volume 87.5 fL (80.0-94.0); Mean Platelet Volume 9.4 fL (9.5-13.5); Monocytes Absolute Auto 0.6 10^3/uL (0.3-0.8); Monocytes Percent Auto 10.1 % (1.7-12.0); Neutrophils Absolute Auto 2.8 10^3/uL (1.4-6.5); Neutrophils Percent Auto 50.6 % (43.0-75.0); Platelet Count 161 10^3/uL (150-450); Red Blood Count 4.63 10^6/uL (4.70-6.10); Red Cell Distribution Width 12.6 % (11.0-15.0); White Blood Count 5.5 10^3/uL (4.0-11.0)
[2023-08-25 12:35] LABS: BOX Test Sent Out Y
[2023-08-25 16:25] LABS: Alanine Aminotransferase 31 U/L (16-63); Albumin Globulin Ratio 1.1; Albumin Level 3.6 g/dL (3.4-5.0); Alkaline Phosphatase 99 U/L (46-116); Anion Gap 11.1; Aspartate Amino Transferase 23 U/L (15-37); BUN Creatinine Ratio 13.1; Bilirubin Total 0.5 mg/dL (0.2-1.0); Calcium 9.4 mg/dL (8.5-10.1); Carbon Dioxide 29.5 mmol/L (21.0-32.0); Chloride 103 mmol/L (98-107); Estimated GFR (African America >60 (>=60); Estimated GFR (Non-African Ame >60 (>=60); Gamma Glutamyl Transpeptidase 30 U/L (15-85); Globulin 3.2 g/dL; Glucose 100 mg/dL (74-106); Magnesium 1.6 mg/dL (1.8-2.4); Phosphorus 4.2 mg/dL (2.6-4.7); Potassium 4.6 mmol/L (3.5-5.1); Sodium 139 mmol/L (136-145); Total Protein 6.8 g/dL (6.4-8.2)
== END 2023-08-25 10:22 | disposition home or self-care (01) ==
LOC: LAB 10:21
DX: K76.9 Liver disease, unspecified (principal); Z48.23 Encounter for aftercare following liver transplant; Z94.4 Liver transplant status; Z41.8 Encounter for other procedures for purposes other than remedying health state; E61.2 Magnesium deficiency; E83.30 Disorder of phosphorus metabolism, unspecified; R73.02 Impaired glucose tolerance (oral)
CPT/HCPCS: 36415; 80053; 82977; 83735; 84100; 85025; 87497

== ENCOUNTER 2023-09-16 09:06 | Outpatient (RCR) | payer BC, SELFPAY ==
[2023-09-16 09:20] LABS: BOX Test Sent Out Y
[2023-09-16 09:33] LABS: Basophils Absolute Auto 0.1 10^3/uL (0.0-0.1); Eosinophils Absolute Auto 0.3 10^3/uL (0.0-0.7); Eosinophils Percent Auto 4.5 % (0.9-7.0); Hematocrit 42.3 % (42.0-54.0); Hemoglobin 14.3 g/dL (14.0-18.0); Immature Granulocytes Abs Auto 0.01 10^3/uL (0.00-0.03); Immature Granulocytes Pct Auto 0.1 % (0.0-0.5); Lymphocytes Absolute Auto 2.1 10^3/uL (1.2-3.8); Lymphocytes Percent Auto 28.7 % (20.5-60.0); Mean Corpuscular HGB Conc 33.8 g/dL (29.9-35.2); Mean Corpuscular Hemoglobin 29.7 pg (25.9-34.0); Mean Corpuscular Volume 87.9 fL (80.0-94.0); Mean Platelet Volume 9.1 fL (9.5-13.5); Monocytes Absolute Auto 0.6 10^3/uL (0.3-0.8); Monocytes Percent Auto 7.5 % (1.7-12.0); Neutrophils Absolute Auto 4.3 10^3/uL (1.4-6.5); Neutrophils Percent Auto 58.2 % (43.0-75.0); Platelet Count 194 10^3/uL (150-450); Red Blood Count 4.81 10^6/uL (4.70-6.10); Red Cell Distribution Width 12.2 % (11.0-15.0); White Blood Count 7.3 10^3/uL (4.0-11.0)
[2023-09-16 09:41] LABS: Alanine Aminotransferase 25 U/L (16-63); Albumin Globulin Ratio 1.1; Albumin Level 3.8 g/dL (3.4-5.0); Alkaline Phosphatase 117 U/L (46-116); Anion Gap 10.8; Aspartate Amino Transferase 19 U/L (15-37); BUN Creatinine Ratio 12.7; Bilirubin Total 0.8 mg/dL (0.2-1.0); Calcium 9.5 mg/dL (8.5-10.1); Carbon Dioxide 30.7 mmol/L (21.0-32.0); Chloride 102 mmol/L (98-107); Estimated GFR (African America >60 (>=60); Estimated GFR (Non-African Ame >60 (>=60); Gamma Glutamyl Transpeptidase 41 U/L (15-85); Globulin 3.5 g/dL; Glucose 93 mg/dL (74-106); Magnesium 1.7 mg/dL (1.8-2.4); Phosphorus 3.2 mg/dL (2.6-4.7); Potassium 4.5 mmol/L (3.5-5.1); Sodium 139 mmol/L (136-145); Total Protein 7.3 g/dL (6.4-8.2)
== END 2023-09-23 17:25 | disposition home or self-care (01) ==
LOC: LAB 09:06
DX: K76.9 Liver disease, unspecified (principal); Z48.23 Encounter for aftercare following liver transplant; Z94.4 Liver transplant status; Z41.8 Encounter for other procedures for purposes other than remedying health state; E83.30 Disorder of phosphorus metabolism, unspecified; E61.2 Magnesium deficiency; R73.02 Impaired glucose tolerance (oral)
CPT/HCPCS: 36415; 80053; 82977; 83735; 84100; 85025

== ENCOUNTER 2023-09-28 08:01 | Outpatient (RCR) | payer OTHER, SELFPAY ==
--- OUTSIDE RECORDS SUMMARY | 2023-09-28 08:09 | XMS_ITS | CCD ---
Author Name Unknown Address [id number] [place] [address] Organization [facility] Care Team Providers Care Solar Consultant Name Role Phone MIKE MCGOWAN Primary Care Physician MISC, DR BULLOCK Attending Unavailable MISC, DR BULLOCK Consulting Unavailable MISC, DR BULLOCK Admitting Unavailable ZIEBER, DR DORI Frias Consulting Unavailable CHINEDU SETHI Primary Care Physician [phone] Unavailable Primary Care Provider Unavailabl e Unavailable Primary Care Provider Unavailabl e Unavailable Primary Care Provider Unavailabl e GHAZARIAN, KAUSHAL V Primary Care Physician Ghazarian V, [facility] Primary Care Provider [phone] Teena Gonzalez CNP Unavailable Zuleika RN, Christine Castro Unavailable Unavailable Ghazarian MD Ramses [facility] Primary Care Provider ROSE SAUCEDO Attending Unavailable JERONIMO, SELMA Referring [facility] Primary Care Unavailable DEANGELO BOLAND Referring Unavailable [facility] Primary Care Unavailable TREVA LOERA Attending Unavailabl e ABSTACY PAUL Referring Unavailable AZARIAN, [facility] Primary Care Unavailable JERONIMO, SELMA Admitting Unavailable GHAZARIAN, KAUSHAL Primary Care Unavailable YOLIS MCKEON Attending Unavailable STACY BAER Referring Unavailable LUIS E BROOKS Referring Unavailable LUIS E BROOKS Attending Unavailable [facility] Primary Care Unavailable TREVA LOERA Referring Unavailabl e DEANGELO BOLAND Attending Unavailable [facility], [facility] Primary Care Unavailable AMANDA VILLARREAL Referring Unavailable MELLY PHAN Referring Unavailabl e LINGANNA, GEE Attending Unavailable LINGANNA, GEE Admitting Unavailable JERONIMO, SELMA Referring Unavailable GHAZARIAN, KAUSHAL Primary Care Unavailable JERONIMO, SELMA Referring Unavailable JERONIMO, SELMA Attending Unavailable GHAZARIAN, KAUSHAL Primary Care Unavailable WAKIM WOLFF, TREVA Referring Unavailabl e GHAZARIAN, KAUSHAL Primary Care Unavailable GHAZARIAN, KAUSHAL Primary Care Unavailable LUIS E BROOKS Attending Unavailable ROSE SAUCEDO Referring Unavailable GHAZARIAN, KAUSHAL Primary Care Unavailable SALAM, DANIELS Referring Unavailable SALAM, DANIELS Referring Unavailable WAKIM WOLFF, TREVA Referring Unavailabl e GHAZARIAN, KAUSHAL Primary Care Unavailable GHAZARIAN, KAUSHAL Primary Care Unavailable AMANDA VILLARREAL Attending Unavailable SALAM, Daniels Attending Unavailable AARONMAGGY Attending Unavailable SALAM, Daniels Admitting Unavailable SALAM, Daniels Attending Unavailable SALAM, Daniels Referring Unavailable PULLCE, HORTENSIA Admitting Unavailable PULLCE, HORTENSIA Attending Unavailable WAKIM-WOLFF, TREVA Admitting Unavailabl e WAKIM-WOLFF, TREVA Attending Unavailabl e WAKIM-WOLFF, TREVA Admitting Unavailabl e WAKIM-WOLFF, TREVA Attending Unavailabl e WAKIM-WOLFF, TREVA Attending Unavailabl e WAKIM-WOLFF, TREVA Admitting Unavailabl e Sarmini, Amrik Mcgowan Attending Unavaila ble Allergies Allergy Classification Reported Allergen(s) Allergy Type Date of Onset Reaction(s) Facility (20 sources) Penicillins; Translations: [penicillins] Drug allergy (disorder) 5 unknown [facility] Repository (20 sources) Penicillins Drug Allergy 5 Unknown [facility] (1 source) No Known Medication Allergies; Translations: [No Known Medication Allergies] Propensity to adverse reactions (disorder) [facility] Repository Medications Current Medications Medication Drug Class(es) Dates Sig (Normalized) Sig (Original) aspirin 81 mg oral tablet (14 sources) Platelet Aggregation Inhibitor, Nonsteroidal Anti-inflammatory Drug Start: 05-28-2023 Aspirin Low Dose 81 mg oral enteric coated tablet Refills(s) 0 Start Date: 05/28/23 Status: Ordered Start: 09-07-2023 take 1 tablet by page th once daily aspirin, enteric coated (ECOTRIN LOW STRENGTH) 81 mg EC tablet Take 1 tablet by mouth once daily. 30 tablet 11 04/30/2023 Active Comment on above: Take 1 tablet by [facility] once daily. BMX Solution (16 sources) Start: 2 take 5 mL by mouth every two hours BMX Solution 5 mL, Oral, q2hr Chest pain, 90 mL, Refill(s) 1 Start Date: 04/30/22 Status: Ordered buprenorphine 8 mg / naloxone 2 mg sublingual tablet (20 sources) Partial Opioid Agonist, Opioid Antagonist Start: 3 take 1 tablet by mouth twice daily buprenorphine-nalox one 8 mg-2 mg sublingual tablet DISSOLVE 1 TABLET IN MOUTH TWICE A DAY Start Date: 05/28/23 Status: Ordered buprenorphine-na loxone (SUBOXONE) 8-2 mg film Dissolve 1 Film under the tongue twice daily. 0 Active Comment on above: Dissolve 1 Film unde r the tongue twice daily. cyclobenzaprine hydrochloride 5 mg oral tablet (20 sources) Muscle Relaxant Start: End: 023 take 1 tablet by mouth at bedtime cyclobenzaprine 5 mg Tab 5 mg = 1 tab(s), Oral, Bedtime, # 14 tab(s), Refills(s) 0, Pharmacy: [facility]/pharmacy #[id number], 193, cm, 03/20/22 16:13:00 EDT, Height/Length Dosing, 103, kg, 03/20/22 16:13:00 EDT, Weight Dosing Start Date: 04/03/22 Status: Ordered Comment on above: Take 5 mg by mouth. Take 5 mg by mouth t wice daily as needed. fluticasone (20 sources) Corticosteroid Start: 022 fluticasone Top 0.05% Crm 30 gram 1 oly, Topical, BID, 60 gm, Refill(s) 1, [facility]/pharmacy #[id number], 193, cm, 03/20/22 16:13:00 EDT, Height/Length Dosing, 103, kg, 03/20/22 16:13:00 EDT, Weight Dosing Start Date: 03/20/22 Status: Ordered Start: 03-20-2022 fluticasone To p 0.05% Crm 30 gram 1 oly, Topical, BID, 60 gm, Refill(s) 1, [facility]/pharmacy #[id number], 193, cm, 03/20/22 16:13:00 EDT, Height/Length Dosing, 103, kg, 03/20/22 16:13:00 EDT, Weight Dosing Start Date: 03/20/22 Status: Ordered Start: 03-20-2022 Fluticasone Pr opionate (CUTIVATE) 0.05 % cream Apply to affected area twice daily. APPLY TO AFFECTED AREA 0 03/20/2022 Active Comment on above: Apply to affected ar ea twice daily. APPLY TO AFFECTED AREA iv contrast (will be provided with radiology test) (2 sources) Start: 12-11-2022 End: 12-12-2022 iv contrast (will be provided with radiology test) Indications: Alcoholic cirrhosis of liver with ascites (HCC) CT LIVER W IVCON Inject, intravenously, once for 1 dose. No IV access, insert saline lock prior to the beginning of sedation, infusion, injection of imaging exam. Discontinue saline lock post exam. If Pt. has a central line or IVAD, may access for administration according to line specific nursing protocol. Once exam is complete flush line and de-access according to line specific nursing protocol in the CT contrast administration guidelines link. 1 Each 0 12/11/2022 12/12/2022 Active Start: 04-30-2022 End: 05-01-2022 iv contrast (will be provide d with radiology test) Indications: Alcoholic cirrhosis of liver with ascites (HCC) , Liver transplant candidate CT LIVER W IVCON Inject, intravenously, once for 1 dose. No IV access, insert saline lock prior to the beginning of sedation, infusion, injection of imaging exam. Discontinue saline lock post exam. If Pt. has a central line or IVAD, may access for administration according to line specific nursing protocol. Once exam is complete flush line and de-access according to line specific nursing protocol in the CT contrast administration guidelines link. 1 Each 0 04/30/2022 05/01/2022 Active Comment on above: CT LIVER W IVCON Inj ect, intravenously, once for 1 dose. No IV access, insert saline lock prior to the beginning of sedation, infusion, injection of imaging exam. Discontinue saline lock post exam. If Pt. has a central line or IVAD, may access for administration according to line specific nursing protocol. Once exam is complete flush line and de-access according to line specific nursing protocol in the CT contrast administration guidelines link. losartan potassium 50 mg oral tablet (14 sources) Angiotensin 2 Receptor Estela Start: 05-22-2023 End: 05-21-2024 take 1 tablet by mouth once daily losartan 50 mg Tab TAKE 1 TABLET BY MOUTH EVERY DAY Start Date: 05/28/23 Status: Ordered take 1 tablet by mouth once lorenzo y losartan (COZAAR) 50 mg tablet Take 50 mg by mouth once daily. 0 Suspended Comment on above: Take 50 mg by mouth once daily. Take 1 tablet by page th once daily. mecobalamin 1 mg oral lozenge (4 sources) Start: 2021 take 1 mg by mouth once daily methylcobalamin 1 mg oral lozenge 1 lozenge, Oral, Daily, # 30 EA, Refills(s) 0, Pharmacy: [facility]/pharmacy #[id number], 193, cm, 03/20/22 16:13:00 EDT, Height/Length Dosing, 103, kg, 03/20/22 16:13:00 EDT, Weight Dosing Start Date: 03/27/22 Status: Ordered methylPREDNISolone 4 mg oral tablet (1 source) Corticosteroid Start: 2021 End: 2021 Medrol Dosepack 4 mg Tab = 1 packet(s), Oral, As Directed, as directed on package labeling, X 6 day(s), # 21 tab(s), Refills(s) 0, Pharmacy: [facility]/pharmacy #[id number], 193, cm, 03/20/22 16:13:00 EDT, Height/Length Dosing, 103, kg, 03/20/22 16:13:00 EDT, Weight Dosing Start Date: 03/20/22 Stop Date: 03/26/22 Status: Ordered nystatin [id number] unt/ml oral suspension (8 sources) Polyene Antifungal Start: 2022 End: 2022 take 5 mL by mouth four times daily nystatin (MYCOSTATIN) 100,000 units/mL oral liquid Take 5 mL by mouth four times daily for 15 days. Swish and swallow. 300 mL 0 04/10/2023 04/28/2023 Active Comment on above: Take 5 mL by mouth f our times daily for 15 days. Swish and swallow. oxyCODONE hydrochloride 5 mg oral tablet (5 sources) Opioid Agonist Start: 2022 End: 2022 take 1 tablet by mouth every six hours as needed oxyCODONE IR (ROXICODONE) 5 mg immediate release tablet Indications: Postoperative pain , Liver transplant recipient (HCC) Take 1 tablet by mouth every 6 hours as needed for up to 5 days. 20 tablet 0 04/13/2023 04/18/2023 Active Comment on above: Take 1 tablet by page every 6 hours as needed for up to 5 days. predniSONE 5 mg oral tablet (9 sources) Start: 2022 End: 2022 predniSONE (DELTASONE) 5 mg tablet Take 3 tablets by mouth daily from 04/14-04/17/23. Take 2 tablets daily from 04/18-04/21/23. Take 1 tablet daily from 04/22-04/25/23. 24 tablet 0 04/22/2023 04/13/2023 Discontinued Start: 04-22-2023 End: 04-13-2023 predniSONE (DELTASONE) 5 mg tablet Take 4 tablets daily from 04/10-04/13/23. Take 3 tablets daily from 04/14-04/17/23. Take 2 tablets daily from 04/18-04/21/23. Take 1 tablet daily from 04/22-04/25/23. 40 tablet 0 04/22/2023 04/13/2023 Discontinued Start: 04-14-2023 End: 04-30-2023 predniSONE (DELTASONE) 5 mg tablet Take 3 tablets by mouth daily from 04/14-04/17/23. Take 2 tablets daily from 04/18-04/21/23. Take 1 tablet daily from 04/22-04/25/23. 24 tablet 0 04/14/2023 04/30/2023 Discontinued (Course of therapy completed) Comment on above: Take 4 tablets daily from 04/10-04/13/23. Take 3 tablets daily from 04/14-04/17/23. Take 2 tablets daily from 04/18-04/21/23. Take 1 tablet daily from 04/22-04/25/23. Take 3 tablets by mo uth daily from 04/14-04/17/23. Take 2 tablets daily from 04/18-04/21/23. Take 1 tablet daily from 04/22-04/25/23. sulfamethoxazole 800 mg / trimethoprim 160 mg oral tablet (20 sources) Dihydrofolate Reductase Inhibitor Antibacterial, Sulfonamide Antimicrobial Start: take 1 tablet by mouth once sulfamethoxazole- trimethoprim 800 mg-160 mg Tab TAKE 1 TABLET BY MOUTH EVERY THURSDAY,THURSDAY, AND THURSDAY Start Date: 05/28/23 Status: Ordered Comment on above: Take 1 tablet by page th every Thursday,Thursday,Thursday. tacrolimus 1 mg oral capsule (20 sources) Calcineurin Inhibitor Immunosuppressant Start: End: tacrolimus 1 mg oral capsule Refills(s) 0 Start Date: 05/28/23 Status: Ordered Start: 04-10-2023 End: 04-30-2023 take 1 capsule by mouth twice daily tacrolimus IR (PROGRAF) 1 mg capsule Take 5 capsules by mouth twice daily. Dose increase 300 capsule 11 04/30/2023 Active Comment on above: Take 3 capsules by m outh twice daily. Take 4 capsules by m outh twice daily. Take 5 capsules by m outh twice daily. Dose increase Take 3 capsules by m outh two times a day. Take 4 capsules by m outh two times a day. torsemide 20 mg oral tablet (17 sources) Loop Diuretic Start: 04-22-2023 End: 05-21-2024 take 2 tablets by mouth once daily as needed torsemide 20 mg Tab TAKE 2 TABLETS BY MOUTH EVERY DAY NEEDED Start Date: 05/28/23 Status: Ordered Comment on above: Take 2 tablets by mo uth once daily. Take 2 tablets by mo uth as needed. Ventolin HFA 90 mcg/inh Aerosol (4 sources) Start: 03-28-2022 take 2 puff(s) by inhalation four times daily for wheezing Ventolin HFA 90 mcg/inh Aerosol 2 puff(s), Inhalation, QID for wheezing, 18 gram, Refill(s) 0, [facility]/pharmacy #[id number], 193, cm, 03/20/22 16:13:00 EDT, Height/Length Dosing, 103, kg, 03/20/22 16:13:00 EDT, Weight Dosing Start Date: 03/28/22 Status: Ordered Vitamin B12 1000 mcg Tab (17 sources) Start: 04-24-2022 take 1 tablet by mouth once daily Vitamin B12 1000 mcg Tab 1,000 mcg = 1 tab(s), Oral, Daily, # 100 tab(s), Refills(s) 1, Pharmacy: [facility]/pharmacy #[id number], 193, cm, 04/24/22 13:13:00 EDT, Height/Length Dosing, 99.9, kg, 04/24/22 13:13:00 EDT, Weight Dosing Start Date: 04/24/22 Status: Ordered Completed/Discontinued Medications Medication Drug Class(es) Dates Sig (Normalized) Sig (Original) acyclovir 400 mg oral tablet (20 sources) Herpesvirus Nucleoside Analog DNA Polymerase Inhibitor, Herpes Simplex Virus Nucleoside Analog DNA Polymerase Inhibitor, Herpes Zoster Virus Nucleoside Analog DNA Polymerase Inhibitor Start: 04-10-2023 take 1 tablet by mouth twice daily acyclovir (ZOVIRAX) 400 mg tablet Take 1 tablet by mouth twice daily. 60 tablet 2 04/10/2023 Active Comment on above: Take 1 tablet by page twice daily. carvedilol 12.5 mg oral tablet (20 sources) alpha-Adrenergic Estela, beta-Adrenergic Estela Start: 04-10-2023 End: 07-07-2023 take 1 tablet by mouth twice daily at mealtime carvedilol (COREG) 12.5 mg tablet Take 1 tablet by mouth twice daily with meals. 60 tablet 11 07/07/2023 Active Start: 03-23-2023 take 1 tablet by page th twice daily carvedilol (COREG) 3.125 mg tablet Take 1 tablet by mouth twice daily. 60 tablet 11 03/23/2023 Suspended Comment on above: Take 1 tablet by page th twice daily. Take 1 tablet by page twice daily with meals. docusate sodium 100 mg oral capsule (20 sources) Start: 04-13-20 take 1 capsule by mouth twice daily docusate sodium (COLACE) 100 mg capsule Take 1 capsule by mouth twice daily. 60 capsule 1 04/13/2023 Active Comment on above: Take 1 capsule by mo [facility] twice daily. fludrocortisone acetate 0.1 mg oral tablet (18 sources) Start: 04-15-20 End: 07-07-20 take 1 tablet by mouth once daily fludrocortisone (FLORINEF) 0.1 mg tablet Take 1 tablet by mouth once daily. 30 tablet 5 07/07/2023 Active Comment on above: Take 1 tablet by page th once daily. furosemide 40 mg oral tablet (20 sources) Loop Diuretic Start: 04-17-20 take 1 tablet by mouth once daily as needed furosemide (LASIX) 40 mg tablet Take 1 tablet by mouth once daily as needed. only take one dose if 2-3 pound weight gain that is persistent over 48 hours(2 days) 14 tablet 0 04/13/2023 Active Start: 03-28-2022 take 1 tablet by page th once daily Lasix 20 mg Tab 20 mg = 1 tab(s), Oral, Daily, # 30 tab(s), Refills(s) 0, Pharmacy: [facility]/pharmacy #[id number], 193, cm, 03/20/22 16:13:00 EDT, Height/Length Dosing, 103, kg, 03/20/22 16:13:00 EDT, Weight Dosing Start Date: 03/28/22 Status: Ordered Comment on above: Take 40 mg by mouth once daily. Take 1 tablet by page th once daily as needed. only take one dose if 2-3 pound weight gain that is persistent over 48 hours(2 days) gabapentin 100 mg oral capsule (18 sources) Anti-epileptic Agent Start: 04-30-2023 End: 05-30-2023 NEURONTIN 100 mg capsule Take 1 capsule by mouth twice daily for 30 days. Working on lowering dose -bid for one week and then lower to daily and then stop 60 capsule 0 04/30/2023 05/22/2023 Discontinued (Course of therapy completed) Start: 03-23-2023 End: 05-22-2023 take 1 capsule by mouth three times daily NEURONTIN 100 mg capsule Take 1 capsule by mouth three times daily for 60 days. 90 capsule 1 03/23/2023 04/30/2023 Discontinued Comment on above: Take 1 capsule by mo [facility] three times daily for 60 days. Take 1 capsule by mo [facility] twice daily for 30 days. Working on lowering dose -bid for one week and then lower to daily and then stop hydrALAZINE hydrochloride 25 mg oral tablet (10 sources) Arteriolar Vasodilator Start: 08 End: take 1 tablet by mouth every eight hours hydrALAZINE (APRESOLINE) 25 mg tablet Take 1 tablet by mouth every 8 hours. 90 tablet 1 04/13/2023 05/22/2023 Discontinued (Course of therapy completed) Comment on above: Take 1 tablet by page every 8 hours. isosorbide dinitrate 10 mg oral tablet (10 sources) Nitrate Vasodilator Start: End: take 1 tablet by mouth three times daily isosorbide dinitrate (ISORDIL) 10 mg tablet Take 1 tablet by mouth three times daily. Take at 9am, 3pm and 9pm 90 tablet 1 04/13/2023 05/22/2023 Discontinued (Course of therapy completed) Comment on above: Take 1 tablet by page three times daily. Take at 9am, 3pm and 9pm magnesium oxide 400 mg oral tablet (12 sources) Start: take 2 tablets by mouth twice daily magnesium oxide (MAG-OX) 400 mg (241.3 mg magnesium) tablet Take 2 tablets by mouth twice daily. Separate from Cellcept (mycophenolate) by 2 hours, so take them at 12pm and 5pm. 120 tablet 5 05/10/2023 Active Comment on above: Take 2 tablets by mo [facility] twice daily. Separate from Cellcept by 2 hours, so take them at 12pm and 5pm. Take 2 tablets by mo ut twice daily. Separate from Cellcept (mycophenolate) by 2 hours, so take them at 12pm and 5pm. mycophenolate mofetil 250 mg oral capsule (20 sources) Start: take 4 capsules by mouth twice daily mycophenolate mofetil (CELLCEPT) 250 mg capsule Take 4 capsules by mouth twice daily. 240 capsule 11 04/10/2023 Active Comment on above: Take 4 capsules by m out twice daily. naloxone hydrochloride 40 mg/ml nasal spray (20 sources) Opioid Antagonist Start: naloxone 4 mg/actuation nasal spray (NARCAN) Use 1 spray in one nostril as needed for overdose. May repeat every 2 to 3 min in alternating nostrils until medical assistance is available 1 Each 0 04/13/2023 Active Comment on above: Use 1 spray in one n ostril as needed for overdose. May repeat every 2 to 3 min in alternating nostrils until medical assistance is available 24 hr nicotine 0.875 mg/hr transdermal system (18 sources) Cholinergic Nicotinic Agonist Start: End: apply 1 dose transdermal route once daily nicotine (NICODERM) 21 mg/24 hr Apply 1 Patch as directed once daily. 35 Patch 0 04/14/2023 Active Comment on above: Apply 1 Patch as dir ected once daily. pantoprazole 40 mg delayed release oral tablet (11 sources) Proton Pump Inhibitor Start: End: take 1 tablet by mouth once daily pantoprazole DR (PROTONIX) 40 mg tablet Take 1 tablet by mouth once daily. 30 tablet 1 04/13/2023 05/22/2023 Discontinued (Course of therapy completed) Comment on above: Take 1 tablet by page th DAILY (6 AM). Take 1 tablet by page th once daily. perflutren lipid microspheres 1.3 mL in NaCl (PF) 0.9% 10 mL injection (DEFINITY) (20 sources) Start: End: perflutren lipid microspheres 1.3 mL in NaCl (PF) 0.9% 10 mL injection (DEFINITY) Start: 04-01-2023 End: 06-30-2024 perflutren lipid microsphere s 1.3 mL in NaCl (PF) 0.9% 10 mL injection (DEFINITY) Start: 04-30-2022 End: 05-22-2023 perflutren lipid microsphere s 1.3 mL in NaCl (PF) 0.9% 10 mL injection (DEFINITY) Start: 04-30-2022 End: 07-30-2023 perflutren lipid microsphere s 1.3 mL in NaCl (PF) 0.9% 10 mL injection (DEFINITY) potassium chloride 20 meq extended release oral tablet (1 source) take 20 mEq by mouth once daily POTASSIUM CHLORIDE ORAL Take 20 mEq by mouth once daily. 0 Suspended Comment on above: Take 20 mEq by mouth once daily. sennosides, skilled nursing 8.6 mg oral tablet (8 sources) Start: 04-13-2023 End: 04-30-2023 take 1 tablet by mouth every twelve hours as needed senna (SENOKOT) 8.6 mg tab Take 1 tablet by mouth twice daily as needed for constipation. 0 04/13/2023 04/30/2023 Discontinued (Course of therapy completed) Comment on above: Take 1 tablet by page th twice daily as needed for constipation. sodium chloride 1000 mg oral tablet (20 sources) Start: 04-13-2023 End: 04-30-2023 take 1 tablet by mouth three times daily sodium chloride 1 gram tab Take 1 tablet by mouth three times daily. 90 tablet 0 04/13/2023 04/30/2023 Discontinued (Clinical Decision) Start: 04-30-2022 End: 06-30-2024 sodium chloride 0.9 % (flush ) 10 mL (BD POSIFLUSH) Comment on above: Take 1 tablet by page three times daily. spironolactone 100 mg oral tablet (20 sources) Aldosterone Antagonist Start: 04-02-20 take 1 tablet by mouth once daily spironolactone (ALDACTONE) 100 mg tablet Take 100 mg by mouth once daily. 0 04/02/2022 Suspended Start: 03-28-2022 take 1 tablet by page once daily spironolactone 25 mg Tab 25 mg = 1 tab(s), Oral, Daily, # 30 tab(s), Refills(s) 0, Pharmacy: [facility]/pharmacy #[id number], 193, cm, 03/20/22 16:13:00 EDT, Height/Length Dosing, 103, kg, 03/20/22 16:13:00 EDT, Weight Dosing Start Date: 03/28/22 Status: Ordered Comment on above: Take 100 mg by mouth . Take 100 mg by mouth once daily. vitamin b12 1 mg oral tablet (20 sources) Vitamin B12 Start: 04-24-2022 End: 04-13-2023 take 1 tablet by mouth once daily cyanocobalamin (VITAMIN B-12) 1,000 mcg tab Take 1,000 mcg by mouth once daily. 0 04/24/2022 04/13/2023 Discontinued Start: 04-17-2022 Vitamin B12 Re fills(s) 0 Start Date: 04/17/22 Status: Ordered Comment on above: Take 1,000 mcg by mo [facility] once daily. Problems Active Problems Problem Classification Problem Date Documented Da te Episodic/Chronic Alcohol-related disorders (20 sources) Alcohol abuse; Translations: [Alcohol abuse, uncomplicated] Onset: 04-09-2022 Chronic Congestive heart failure; nonhypertensive (20 sources) Acute systolic heart failure; Translations: [Acute systolic (congestive) heart failure] Onset: 04-07-2023 04-13-2023 Chronic Deficiency and other anemia (20 sources) Anemia; Translations: [Anemia, unspecified] Onset: 04-03-2023 10-23-2022 Episodic Diseases of white blood cells (20 sources) Leukocytosis; Translations: [Elevated white blood cell count, unspecified] Onset: 04-08-2023 04-09-2023 Chronic Esophageal disorders (20 sources) Esophageal varices without bleeding; Translations: [Esophageal varices without bleeding] Onset: 05-23-2022 Chronic Essential hypertension (20 sources) Hypertensive disorder; Translations: [Essential (primary) hypertension] Onset: 04-03-2023 04-03-2023 Chronic Genitourinary symptoms and ill-defined conditions (20 sources) Blood in urine; Translations: [Hematuria, unspecified] Onset: 03-20-2022 Episodic Immunity disorders (20 sources) Patient immunocompromised; Translations: [Immunodeficiency, unspecified] Onset: 04-08-2023 04-09-2023 Chronic Open wounds of extremities (20 sources) Laceration of forearm 04-03-2022 Episodic Other aftercare (1 source) Encounter for aftercare following liver transplant; Translations: [Encounter for aftercare following liver transplant (HCC)] Onset: 04-15-2023 Chronic Other gastrointestinal disorders (1 source) Abdominal bloating 09-15-2023 Episodic Other liver diseases (20 sources) Cirrhosis of liver; Translations: [Unspecified cirrhosis of liver] Onset: 04-02-2022 Chronic Other liver diseases (3 sources) Liver transplant status; Translations: [Immunosuppressive management encounter following liver transplant (HCC)] Onset: 04-06-2023 Chronic Other liver diseases (20 sources) Jaundice; Translations: [Unspecified jaundice] Onset: 03-20-2022 Episodic Other liver diseases (4 sources) Unspecified jaundice; Translations: [UNSPECIFIED JAUNDICE] Onset: 03-21-2022 Episodic Other nutritional; endocrine; and metabolic disorders (1 source) Overweight in adulthood with body mass index of 25 or more but less than 30; Translations: [Body mass index (BMI) 27.0-27.9, adult] Onset: 03-20-2022 Episodic Laureen-; endo-; and myocarditis; cardiomyopathy (except that caused by tuberculosis or sexually transmitted disease) (1 source) Cardiomyopathy; Translations: [Other cardiomyopathies] 05-22-2023 Chronic Residual codes; unclassified (20 sources) Awaiting transplantation of liver; Translations: [Awaiting organ transplant status] Onset: 04-04-2023 Chronic Residual codes; unclassified (1 source) Awaiting transplantation; Translations: [Awaiting organ transplant status] Chronic Residual codes; unclassified (19 sources) Edema of lower extremity 04-17-2022 Episodic Residual codes; unclassified (20 sources) Edema of lower leg ; Translations: [Localized edema] Onset: 04-21-2023 04-24-2022 Episodic Residual codes; unclassified (1 source) Prevention status; Translations: [Encounter for other specified prophylactic measures] 04-15-2023 Episodic Spondylosis; intervertebral disc disorders; other back problems (20 sources) Low back pain; Translations: [Low back pain, unspecified] Onset: 03-20-2022 Episodic Substance-related disorders (12 sources) Nicotine dependence; Translations: [Nicotine dependence, unspecified, uncomplicated] Onset: 04-02-2023 04-02-2023 Chronic Unclassified (1 source) LOW BACK PAIN, UNSPECIFIED; Translations: [LOW BACK PAIN, UNSPECIFIED] Onset: 03-27-2022 Unclassified (20 sources) Liver function test increased 04-09-2022 Unclassified (1 source) NO SHOW Unclassified (1 source) Finding of sensation of bladder 09-15-2023 Unclassified (1 source) Established Patient Onset: 05-22-2023 Unclassified (1 source) Encounter for monitoring tacrolimus therapy; Translations: [Encounter for monitoring tacrolimus therapy] Onset: 04-15-2023 Past or Other Problems Problem Classification Problem Date Documented Date Episodic/Chronic Acute and unspecified renal failure (20 sources) Acute injury of kidney; Translations: [Acute kidney failure, unspecified] Onset: 04-01-2023 04-01-2023 Episodic Acute posthemorrhagic anemia (20 sources) Acute posthemorrhagic anemia; Translations: [Acute posthemorrhagic anemia] Onset: 04-06-2023 04-06-2023 Episodic Administrative/social admission (6 sources) Patient encounter status; Translations: [Other specified counseling] Onset: 04-15-2023 Episodic Allergic reactions (20 sources) Allergy to penicillin; Translations: [Allergy status to penicillin] Onset: 04-08-2023 04-09-2023 Episodic Complications of surgical procedures or medical care (20 sources) Pulmonary insufficiency following surgery; Translations: [Other postprocedural complications and disorders of respiratory system, not elsewhere classified] Onset: 04-04-2023 04-04-2023 Episodic Deficiency and other anemia (1 source) Anemia, unspecified; Translations: [Anemia, unspecified type] Onset: 05-22-2023 Episodic Fluid and electrolyte disorders (2 sources) Hyponatremia; Translations: [Hypo-osmolality and hyponatremia] Onset: 04-15-2023 04-15-2023 Episodic Intestinal obstruction without hernia (20 sources) Intestinal obstruction co-occurrent and due to decreased peristalsis; Translations: [Ileus, unspecified] Onset: 04-06-2023 04-06-2023 Episodic Nutritional deficiencies (16 sources) Cobalamin deficiency; Translations: [Deficiency of other specified B group vitamins] Onset: 05-22-2023 11-27-2022 Episodic Other aftercare (1 source) Other usp (current) drug therapy; Translations: [Immunosuppressive management encounter following liver transplant (HCC)] Onset: 04-06-2023 Episodic Other aftercare (1 source) Encounter for therapeutic drug level monitoring; Translations: [Encounter for monitoring tacrolimus therapy] Onset: 04-15-2023 Episodic Other nervous system disorders (20 sources) Postoperative pain ; Translations: [Other acute postprocedural pain] Onset: 04-04-2023 04-04-2023 Episodic Other nervous system disorders (1 source) Other acute postprocedural pain; Translations: [Postoperative pain] Onset: 04-04-2023 Episodic Other screening for suspected conditions (not mental disorders or infectious disease) (6 sources) Blood chemistry abnormal; Translations: [Other specified abnormal findings of blood chemistry] Onset: 04-09-2022 Episodic Residual codes; unclassified (13 sources) Tobacco user; Translations: [Tobacco use] Onset: 03-20-2022 Episodic Residual codes; unclassified (1 source) Localized edema; Translations: [Lower leg edema] Onset: 05-22-2023 Episodic Residual codes; unclassified (1 source) Tobacco use; Translations: [Tobacco user] Onset: 05-22-2023 Episodic Residual codes; unclassified (1 source) Encounter for other specified prophylactic measures; Translations: [Need for prophylactic immunotherapy] Onset: 04-15-2023 Episodic Respiratory failure; insufficiency; arrest (adult) (20 sources) Acute hypoxemic respiratory failure; Translations: [Acute respiratory failure with hypoxia] Onset: 04-06-2023 04-06-2023 Episodic Substance-related disorders (20 sources) Psychoactive substance abuse; Translations: [Other psychoactive substance use, unspecified, uncomplicated] Onset: 04-09-2022 Episodic Unclassified (3 sources) Exposure to 2019 novel coronavirus; Translations: [Contact with and (suspected) exposure to COVID19] Results Test Name Value Interpretation Reference Range Facility CYTOMEGALOVIRUS (CMV) DNA, Q UANTITATIVE PCR, PLASMAon 09-16-2023 CMV DNA DEVYN+probe Qn (P) Not detected Normal Not Detected [facility] Comment on above: Order Comment: Rasta kennedy Type: BLOOD SPECIMENOrdering Facility: [facility] Address: , , Performed By: #### C MVQNT ####[facility] LAB[facility]IA [id number] [place] [address] [place] Tacrolimus Bld-mCncon 2023 Tacrolimus (Bld) [Mass/Vol] 5.1 ng/mL Normal 5.0-20.0 [facility] Comment on above: Order Comment: Rasta kennedy Type: BLOOD SPECIMENOrdering Facility: [facility] Address: , , Result Comment: Jennifer vidualized target levels for a given patient will depend on many factors (including the type of organ transplant, time since transplantation, concurrent medications, and other clinical factors), and should be assessed by those health care providers experienced in the management of immunosuppression. Reference ranges and high/low indicator flags are provided as general guidelines only. The treating physician must determine appropriate target levels/dosing based on the specific clinical situation. Test performed by chemiluminescent immunoassay using NWIXniTraklight i. Performed By: #### 1 1253-2 ####[facility] LABCLIA [id number] [facility] AREAAnup [id number] [place] [id number] [place] Lab Reportson 09-15-2023 Lab Reports [id number] Normal [facility] Patient Educationon 09-15-19 Patient Education Gastroenterology Abdominal Bloating When you have abdominal bloating, your abdomen may feel full, tight, or painful. It may also look bigger than normal or swollen (distended). Common causes of abdominal bloating include: ? Swallowing air. ? Constipation. ? Problems digesting food. ? Eating too much. ? Irritable bowel syndrome. This is a condition that affects the large intestine. ? Lactose intolerance. This is an inability to digest lactose, a natural sugar in dairy products. ? Celiac disease. This is a condition that affects the ability to digest gluten, a protein found in some grains. ? Gastroparesis. This is a condition that slows down the movement of food in the stomach and small intestine. It is more common in people with diabetes mellitus. ? Gastroesophageal reflux disease (GERD). This is a condition that makes stomach acid flow back into the esophagus. ? Urinary retention. This means that the body is holding onto urine, and the bladder cannot be emptied all the way. Follow these instructions at home: Eating and drinking ? Avoid eating too much. ? Try not to swallow air while talking or eating. ? Avoid eating while lying down. ? Avoid these foods and drinks: ? Foods that cause gas, such as broccoli, cabbage, cauliflower, and baked beans. ? Carbonated drinks. ? Hard candy. ? Chewing gum. Medicines ? Take vrga-fcg-iwerkcy and prescription medicines only as told by your health care provider. ? Take probiotic medicines. These medicines contain live bacteria or yeasts that can help digestion. ? Take coated peppermint oil capsules. General instructions ? Try to exercise regularly. Exercise may help to relieve bloating that is caused by gas and relieve constipation. ? Keep all follow-up visits. This is important. Contact a health care provider if: ? You have nausea and vomiting. ? You have diarrhea. ? You have abdominal pain. ? You have unusual weight loss or weight gain. ? You have severe pain, and medicines do not help. Get help right away if: ? You have chest pain. ? You have trouble breathing. ? You have shortness of breath. ? You have trouble urinating. ? You have darker urine than normal. ? You have blood in your stools or have dark, tarry stools. These symptoms may represent a serious problem that is an emergency. Do not wait to see if the symptoms will go away. Get medical help right away. Call your local emergency services (911 in the [place] Do not drive yourself to the hospital. Summary ? Abdominal bloating means that the abdomen is swollen. ? Common causes of abdominal bloating are swallowing air, constipation, and problems digesting food. ? Avoid eating too much and avoid swallowing air. ? Avoid foods that cause gas, carbonated drinks, hard candy, and chewing gum. This information is not intended to replace advice given to you by your health care provider. Make sure you discuss any questions you have with your health care provider. Document Revised: 03/12/2021 Document Reviewed: 03/12/2021 [employer] Patient Education ? [address] [employer] [facility] Urology Office/Clinic Noteon 09-15-2023 Urology Office/Clinic Note Chief Complaint New Pt *Incomplete Bladder Emptying HPI Staff New pt, Never before seen in our office. Here today due to feeling like he is not emptying his bladder. S/P Liver Transplant 04/04/23 @ [facility]. Still feels bloated in lower abdomen. States the bloating worsens over a few days time. During this time his urinary output is a lower volume. His stream is weak, sometimes just dribbling. Has to force it out sometimes. Sometimes a little burning. Will get severe urgency, then only a small amount when he goes to void. Then pt takes a diuretic. Bloating improves significantly. Urine volume increases significantly. Urine stream/flow improves and returns to baseline as it has been prior to surgery/transplant. No urinary complaints at this time. Then process starts again. Says he spoke w the transplant team and they told him he needed to see a local urologist. Drinks about 2-3x 16oz bottles sprite daily, 2-3x 16oz water bottles daily, and a few glasses of juice or milk. no urinary issues prior to transplant. had severe kidney dysfunction during post-op period but recent renal fx back to normal. PVR 32ml Denies constipation. Says bowels working well/normally. No issues w UTIs. No gross hematuria. History of Present Illness staff HPI reviewed and agree. Review of Systems PHQ Score Initial Depression Screen Score: 0 SCORE no fever, chills, malaise, myalgia. no rash/lesions. no chest pain, palpitations, or SOB. no nausea, vomiting. no unilateral calf swelling, redness, pain Physical Exam Vitals & Measurements HR: 68(Peripheral) RR: 16 BP: 116/77 HT: 77 in HT: 195 cm WT: 111.9 kg WT: 246.18 lb BMI: 29.43 General: nontoxic, NAD Mouth: moist mucosa Lungs: normal respiratory effort Cardio: regular rate, good distal perfusion Abdomen: mild diffuse abdominal distention, no suprapubic tenderness, no CVA tenderness Neurologic: Grossly normal Skin: No rashes or suspicious lesions Assessment/Plan 1. Feeling of incomplete bladder emptying (R39.14: Feeling of incomplete bladder emptying) PVR (cc): 09/15/23 - 32 Labs: 03/30/23 - BUN 35, Cr 2.2, eGFR 38 08/27/23 - BUN 14, Cr 1.07, eGFR 60 No issues with urination prior to transplant. Sx seem directly related to volume of urine. Reports difficulty voiding when urine volume/output is low and improved/normal voiding when urine volume/output is high w diuretic use. This does not sound like bladder/prostate/urethral issue but rather pre-renal. Recommended pt to complete voiding diary, including several days off diuretic and several days on diuretic. Pt to drop it off for review once complete. We discussed possible evaluation of lower urinary tract with cystoscopy +/- UroCuff/UDS, however this seems unnecessary at this point. Ordered: [id number] Measure Post Void residual urine and/or bladder capacity by US- non-imaging Urnls Dip Stick Auto w/o Microscopy POC 18040 2. Weak urinary stream (R39.12: Poor urinary stream) see #1. 3. Alcoholic cirrhosis (K70.30: Alcoholic cirrhosis of liver without ascites) S/p liver transplant 04/04/23 @ [facility]. Follow-up With When Contact Information AARON DINH, MAGGY Gonzalez, URL [address] [place] [address] Additional Instructions: Follow up pending voiding diary Patient Education Abdominal Bloating Total time spent reviewing previous notes/results/external documents, preparing the chart, conducting the encounter with the patient and family, ordering tests/medications, and documenting the encounter was 30 minutes. Documentation recorded by the scribcarlos Villagomez accurately reflects the services(s) I performed and decisions made by me. Authenticated by Maggy Suarez PA-C on 09/15/2023 18:10:18. I, Rita Villagomez, personally scribed for Maggy Suarez PA-C on 09/15/2023 14:11:36. Problem List/Past Medical History Ongoing Abdominal bloating ALC (alcoholic liver cirrhosis) Alcohol abuse Alcoholic cirrhosis Anemia Esophageal varices Feeling of incomplete bladder emptying Forearm laceration Hematuria Illicit drug use Jaundice LFT elevation Lower back pain Lower extremity edema Lower leg edema Vitamin B 12 deficiency Historical No qualifying data Procedure/Surgical History Esophagogastroduodenoscopy (07/18/2022), Esophagogastroduodenoscopy (05/23/2022), Esophagogastroduodenoscopy (04/30/2022), Entire transplanted liver. Medications Aspirin Low Dose 81 mg oral enteric coated tablet buprenorphine-naloxone 8 mg-2 mg sublingual tablet Lasix 40 mg Tab, 40 mg= 1 tab(s), Oral, Daily, 3 refills losartan 50 mg Tab sulfamethoxazole-trimethopr im 800 mg-160 mg Tab tacrolimus 1 mg oral capsule torsemide 20 mg Tab Allergies penicillins (unknown) Social History Alcohol Past, 05/28/2023 Substance Abuse - Denies Substance Abuse, 05/28/2023 Tobacco - High Risk, 03/20/2022 10 or more cigaret (more content not included)... Normal [facility] Comment on above: Result Comment: Elec tronically Signed By: MAGGY SUAREZ PA-C\.br\Date and Time Signed: 09/15/23 18:11 EST\.br\Electronically Co-Signed By: Rita Villagomez.br\Date and Time Co-Signed: 01/23/24 14:15 EST PHOSPHATIDYLETHANOL (PETH)on 08-25-2023 EER PETH See Note Normal [facility] Comment on above: Order Comment: Speci men Type: BLOOD SPECIMENOrdering Facility: [facility] Address: , , Result Comment: Auth orized individuals can access the [facility] Report using the following link:[email or web address] Performed By: #### P ETH ####[facility] [id number] [place] [address] PETH 16:0/18.2 (PLPETH) <10 Normal [facility] Comment on above: Order Comment: Speci men Type: BLOOD SPECIMENOrdering Facility: [facility] Address: , , Result Comment: Refe rence ranges are not well established. Performed By: #### P ETH ####[facility] [id number] [place] [address] PETH 16:0/18:1 (POPETH) <10 Normal [facility] Comment on above: Order Comment: Speci men Type: BLOOD SPECIMENOrdering Facility: [facility] Address: , , Result Comment: PEth 16:0/18:1 (POPEth)Less than 10 ng/mL............Not detectedLess than 20 ng/mL............Abstinence or light [id number] - 200 ng/mL................Moderate alcohol consumptionGreater than 200 ng/mL........Heavy alcohol consumption or chronicalcohol use(Reference: Jessica Pulliam and Anup Dee 2018 J. Forensic Sci) Performed By: #### P ETH ####[facility] [id number] [place] [address] PETH INTERPRETATION See Note Normal [facility] Comment on above: Order Comment: Speci men Type: BLOOD SPECIMENOrdering Facility: [facility] Address: , , Result Comment: Phos phatidylethanol (PEth) is a group of phospholipids formed inthe presence of ethanol, phospholipase D and phosphatidylcholine.PEth is known to be a direct alcohol biomarker. The predominantPEth homologues are PEth 16:0/18:1 (POPEth) and PEth 16:0/18:2(PLPEth), which account for 37-46% and 26-28% of the total PEthhomologues, respectively. PEth is incorporated into thephospholipid membrane of red blood cells and has a generalhalf-life of 4-10 days and a window of detection of 2-4 weeks.However, the window of detection is longer in individuals whochronically or excessively consume alcohol. The limit ofquantification is 10 ng/mL. Serial monitoring of PEth may behelpful in monitoring alcohol abstinence over time. PEth resultsshould be interpreted in the context of the patient's clinical andbehavioral history.Patients with advanced liver disease may have falsely elevatedPEth concentrations (Reyna GALLOWAY et al 2018, Alcoholism Clinical &Experimental Research).This test was developed and its performance characteristicsdetermined by [employer]. It has not been cleared orapproved by the U.S. Food and Drug Administration. This test wasperformed in a CLIA-certified laboratory and is intended forclinical purposes.Performed By: [employer] [place], [place] [address]Mnpmumluhk Director: Audi Bundy MD, PhDCLIA Number: [id number] Performed By: #### P ETH ####[facility] [id number] [place] [address] CYTOMEGALOVIRUS (CMV) DNA, Q UANTITATIVE PCR, PLASMAon 08-10-2023 CMV DNA DEVYN+probe Qn (P) Not detected Normal Not Detected [facility] Comment on above: Order Comment: Speci men Type: BLOOD SPECIMENOrdering Facility: [facility] Address: , , Performed By: #### C MVQNT ####[facility] LABCLIA [id number] [place] [address] [place] Tacrolimus Bld-mCncon 2022 Tacrolimus (Bld) [Mass/Vol] 6.0 ng/mL Normal 5.0-20.0 [facility] Comment on above: Order Comment: Rasta kennedy Type: BLOOD SPECIMENOrdering Facility: [facility] Address: , , Result Comment: Jennifer vidualized target levels for a given patient will depend on many factors (including the type of organ transplant, time since transplantation, concurrent medications, and other clinical factors), and should be assessed by those health care providers experienced in the management of immunosuppression. Reference ranges and high/low indicator flags are provided as general guidelines only. The treating physician must determine appropriate target levels/dosing based on the specific clinical situation. Test performed by chemiluminescent immunoassay using D[employer] Al[employer] i. Performed By: #### 1 1253-2 ####[facility] LABCLIA [id number] [place] [address] [place] CYTOMEGALOVIRUS (CMV) DNA, Q UANTITATIVE PCR, PLASMAon 07-27-2023 CMV DNA DEVYN+probe Qn (P) Not detected Normal Not Detected [facility] Comment on above: Order Comment: Rasta kennedy Type: BLOOD SPECIMENOrdering Facility: [facility] Address: , , Performed By: #### C MVQNT ####[facility] LABCLIA [id number] [place] [address] [place] Tacrolimus Bld-ncon 2022 Tacrolimus (Bld) [Mass/Vol] 6.5 ng/mL Normal 5.0-20.0 [facility] Comment on above: Order Comment: Rasta kennedy Type: BLOOD SPECIMENOrdering Facility: [facility] Address: , , Result Comment: Jennifer vidualized target levels for a given patient will depend on many factors (including the type of organ transplant, time since transplantation, concurrent medications, and other clinical factors), and should be assessed by those health care providers experienced in the management of immunosuppression. Reference ranges and high/low indicator flags are provided as general guidelines only. The treating physician must determine appropriate target levels/dosing based on the specific clinical situation. Test performed by chemiluminescent immunoassay using Dickson Alinity i. Performed By: #### 1 1253-2 ####[facility] LABCLIA [id number] [address] [place] CYTOMEGALOVIRUS (CMV) DNA, Q UANTITATIVE PCR, PLASMAon 07-20-2023 CMV DNA DEVYN+probe (P) [Log units/Vol] <1.54 Normal [facility] Comment on above: Order Comment: Rasta kennedy Type: BLOOD SPECIMENOrdering Facility: [facility] Address: , , Performed By: #### C MVQNT ####[facility] LABCLIA [id number] [address] [place] CMV DNA DEVYN+probe Qn (P) Detected Abnormal Not Detected [facility] Comment on above: Order Comment: Rasta kennedy Type: BLOOD SPECIMENOrdering Facility: [facility] Address: , , Performed By: #### C MVQNT ####[facility] LABCLIA [id number] [address] [place] CMV DNA NUMERIC <35 Normal [facility] Comment on above: Order Comment: Rasta kennedy Type: BLOOD SPECIMENOrdering Facility: [facility] Address: , , Performed By: #### C MVQNT ####[facility] LABCLIA [id number] [place] [address] [place] Tacrolimus Bld-[facility] 2022 Tacrolimus (Bld) [Mass/Vol] 8.8 ng/mL Normal 5.0-20.0 [facility] Comment on above: Order Comment: Rasta kennedy Type: BLOOD SPECIMENOrdering Facility: [facility] Address: , , Result Comment: Jennifer vidualized target levels for a given patient will depend on many factors (including the type of organ transplant, time since transplantation, concurrent medications, and other clinical factors), and should be assessed by those health care providers experienced in the management of immunosuppression. Reference ranges and high/low indicator flags are provided as general guidelines only. The treating physician must determine appropriate target levels/dosing based on the specific clinical situation. Test performed by chemiluminescent immunoassay using NWIXniTraklight i. Performed By: #### 1 1253-2 ####[facility] LABCLIA [id number] [place] [address] [place] CYTOMEGALOVIRUS (CMV) DNA, Q UANTITATIVE PCR, PLASMAon 07-13-2023 CMV DNA DEVYN+probe Qn (P) Not detected Normal Not Detected [facility] Comment on above: Order Comment: Rasta kennedy Type: BLOOD SPECIMENOrdering Facility: [facility] Address: , , Performed By: #### C MVQNT ####[facility] LABIA [id number] [place] [address] [place] Tacrolimus Bld-mCncon 2022 Tacrolimus (Bld) [Mass/Vol] 7.8 ng/mL Normal 5.0-20.0 [facility] Comment on above: Order Comment: Rasta kennedy Type: BLOOD SPECIMENOrdering Facility: [facility] Address: , , Result Comment: Jennifer vidualized target levels for a given patient will depend on many factors (including the type of organ transplant, time since transplantation, concurrent medications, and other clinical factors), and should be assessed by those health care providers experienced in the management of immunosuppression. Reference ranges and high/low indicator flags are provided as general guidelines only. The treating physician must determine appropriate target levels/dosing based on the specific clinical situation. Test performed by chemiluminescent immunoassay using Dickson Alinity i. Performed By: #### 1 1253-2 ####[facility] [id number] [place] [address] [place] CYTOMEGALOVIRUS (CMV) DNA, Q [facility]ANTITATIVE PCR, [facility] CMV DNA DEVYN+probe Qn (P) Not detected Normal Not Detected [facility] Comment on above: Order Comment: Rasta kennedy Type: BLOOD SPECIMENOrdering Facility: [facility] Address: , , Performed By: #### C MVQNT ####[facility] [id number] [place] [address] [place] Tacrolimus Bld-mCncon 2022 Tacrolimus (Bld) [Mass/Vol] 8.1 ng/mL Normal 5.0-20.0 [facility] Comment on above: Order Comment: Rasta kennedy Type: BLOOD SPECIMENOrdering Facility: [facility] Address: , , Result Comment: Jennifer vidualized target levels for a given patient will depend on many factors (including the type of organ transplant, time since transplantation, concurrent medications, and other clinical factors), and should be assessed by those health care providers experienced in the management of immunosuppression. Reference ranges and high/low indicator flags are provided as general guidelines only. The treating physician must determine appropriate target levels/dosing based on the specific clinical situation. Test performed by chemiluminescent immunoassay using Dickson Alinity i. Performed By: #### 1 1253-2 ####[facility] LABCLIA [id number] [place] [address] [place] CYTOMEGALOVIRUS (CMV) DNA, Q UANTITATIVE PCR, PL[facility]MAon 06-29-2023 CMV DNA DEVYN+probe Qn (P) Not detected Normal Not Detected [facility] Comment on above: Order Comment: Rasta kennedy Type: BLOOD SPECIMENOrdering Facility: [facility] Address: , , Performed By: #### C MVQNT ####[facility] LABCLIA [id number] [place] [address] [place] Tacrolimus Bld-mCncon 2022 Tacrolimus (Bld) [Mass/Vol] 12.8 ng/mL Normal 5.0-20.0 [facility] Comment on above: Order Comment: Rasta kennedy Type: BLOOD SPECIMENOrdering Facility: [facility] Address: , , Result Comment: Jennifer vidualized target levels for a given patient will depend on many factors (including the type of organ transplant, time since transplantation, concurrent medications, and other clinical factors), and should be assessed by those health care providers experienced in the management of immunosuppression. Reference ranges and high/low indicator flags are provided as general guidelines only. The treating physician must determine appropriate target levels/dosing based on the specific clinical situation. Test performed by chemiluminescent immunoassay using Dickson Alinity i. Performed By: #### 1 1253-2 ####[facility] LABCLIA [id number] [place] [address] [place] CYTOMEGALOVIRUS (CMV) DNA, Q UANTITATIVE PCR, [facility]MAon 06-25-2023 CMV DNA DEVYN+probe (P) [Log units/Vol] <1.54 Normal [facility] Comment on above: Order Comment: Rasta kennedy Type: BLOOD SPECIMENOrdering Facility: [facility] Address: , , Performed By: #### C MVQNT ####[facility] LABCLIA [id number] [place] [address] [place] [facility] [place] CMV DNA DEVYN+probe Qn (P) Detected Abnormal Not Detected [facility] Comment on above: Order Comment: Rasta kennedy Type: BLOOD SPECIMENOrdering Facility: [facility] Address: , , Performed By: #### C MVQNT ####[facility] LABCLIA [id number] [address] [place] CMV DNA NUMERIC <35 Normal [facility] Comment on above: Order Comment: Rasta kennedy Type: BLOOD SPECIMENOrdering Facility: [facility] Address: , , Performed By: #### C MVQNT ####[facility] LABCLIA [id number] [place] [address] [place] Tacrolimus Bld-ncon 2022 Tacrolimus (Bld) [Mass/Vol] 9.3 ng/mL Normal 5.0-20.0 [facility] Comment on above: Order Comment: Rasta kennedy Type: BLOOD SPECIMENOrdering Facility: [facility] Address: , , Result Comment: Jennifer vidualized target levels for a given patient will depend on many factors (including the type of organ transplant, time since transplantation, concurrent medications, and other clinical factors), and should be assessed by those health care providers experienced in the management of immunosuppression. Reference ranges and high/low indicator flags are provided as general guidelines only. The treating physician must determine appropriate target levels/dosing based on the specific clinical situation. Test performed by chemiluminescent immunoassay using NWIXniTraklight i. Performed By: #### 1 1253-2 ####[facility] LABCLIA [id number] [place] [address] [place] Physician Orderon 06-24-2023 Physician Order [id number] Normal [facility] CYTOMEGALOVIRUS (CMV) DNA, Q UANTITATIVE PCR, PLASMAon 06-22-2023 CMV DNA DEVYN+probe (P) [Log units/Vol] <1.54 Normal [facility] Comment on above: Order Comment: Rasta kennedy Type: BLOOD SPECIMENOrdering Facility: [facility] Address: , , Performed By: #### C MVQNT ####[facility] LABIA [id number] [address] [place] CMV DNA DEVYN+probe Qn (P) Detected Abnormal Not Detected [facility] Comment on above: Order Comment: Rasta kennedy Type: BLOOD SPECIMENOrdering Facility: [facility] Address: , , Performed By: #### C MVQNT ####[facility] LABIA [id number] [address] [place] CMV DNA NUMERIC <35 Normal [facility] Comment on above: Order Comment: Rasta kennedy Type: BLOOD SPECIMENOrdering Facility: [facility] Address: , , Performed By: #### C MVQNT ####[facility] LABIA [id number] [place] [address] [place] Tacrolimus Bld-mCncon 2022 Tacrolimus (Bld) [Mass/Vol] 9.1 ng/mL Normal 5.0-20.0 [facility] Comment on above: Order Comment: Rasta kennedy Type: BLOOD SPECIMENOrdering Facility: [facility] Address: , , Result Comment: Jennifer vidualized target levels for a given patient will depend on many factors (including the type of organ transplant, time since transplantation, concurrent medications, and other clinical factors), and should be assessed by those health care providers experienced in the management of immunosuppression. Reference ranges and high/low indicator flags are provided as general guidelines only. The treating physician must determine appropriate target levels/dosing based on the specific clinical situation. Test performed by chemiluminescent immunoassay using SWYF Alinity i. Performed By: #### 1 1253-2 ####[facility] LABCLIA [id number] [place] [address] [place] CYTOMEGALOVIRUS (CMV) DNA, Q UANTITATIVE PCR, PLASMAon 06-18-2023 CMV DNA DEVYN+probe (P) [Log units/Vol] 1.57 log IU/mL Normal [facility] Comment on above: Order Comment: Rasta kennedy Type: BLOOD SPECIMENOrdering Facility: [facility] Address: , , Performed By: #### C MVQNT ####[facility] LABCLIA [id number] [place] [address] [place] CMV DNA DEVYN+probe Qn (P) Detected Abnormal Not Detected [facility] Comment on above: Order Comment: Rasta kennedy Type: BLOOD SPECIMENOrdering Facility: [facility] Address: , , Performed By: #### C MVQNT ####[facility] LABCLIA [id number] [place] [address] [place] CMV DNA NUMERIC 37 IU/mL High [facility] Comment on above: Order Comment: Rasta kennedy Type: BLOOD SPECIMENOrdering Facility: [facility] Address: , , Performed By: #### C MVQNT ####[facility] LABCLIA [id number] [place] [address] [place] Tacrolimus Bld-[facility] 2022 Tacrolimus (Bld) [Mass/Vol] 9.7 ng/mL Normal 5.0-20.0 [facility] Comment on above: Order Comment: Rasta kennedy Type: BLOOD SPECIMENOrdering Facility: [facility] Address: , , Result Comment: Jennifer vidualized target levels for a given patient will depend on many factors (including the type of organ transplant, time since transplantation, concurrent medications, and other clinical factors), and should be assessed by those health care providers experienced in the management of immunosuppression. Reference ranges and high/low indicator flags are provided as general guidelines only. The treating physician must determine appropriate target levels/dosing based on the specific clinical situation. Test performed by chemiluminescent immunoassay using Dickson Alinity i. Performed By: #### 1 1253-2 ####[facility] LABCLIA [id number] [place] [address] [place] CYTOMEGALOVIRUS (CMV) DNA, Q UANTITATIVE PCR, PLASMAon 06-15-2023 CMV DNA DEVYN+probe Qn (P) Not detected Normal Not Detected [facility] Comment on above: Order Comment: Rasta kennedy Type: BLOOD SPECIMENOrdering Facility: [facility] Address: , , Performed By: #### C MVQNT ####[facility] LABCLIA [id number] [address] STATES OF [facility] Tacrolimus Bld-mCncon 2022 Tacrolimus (Bld) [Mass/Vol] 10.9 ng/mL Normal 5.0-20.0 [facility] Comment on above: Order Comment: Rasta kennedy Type: BLOOD SPECIMENOrdering Facility: [facility] Address: , , Result Comment: Jennifer vidualized target levels for a given patient will depend on many factors (including the type of organ transplant, time since transplantation, concurrent medications, and other clinical factors), and should be assessed by those health care providers experienced in the management of immunosuppression. Reference ranges and high/low indicator flags are provided as general guidelines only. The treating physician must determine appropriate target levels/dosing based on the specific clinical situation. Test performed by chemiluminescent immunoassay using Dickson Alinity i. Performed By: #### 1 1253-2 ####[facility] LABCLIA [id number] [place] [address] [place] CYTOMEGALOVIRUS (CMV) DNA, Q UANTITATIVE PCR, PLASMAon 06-11-2023 CMV DNA DEVYN+probe Qn (P) Not detected Normal Not Detected [facility] Comment on above: Order Comment: Speci men Type: BLOOD SPECIMENOrdering Facility: [facility] Address: , , Performed By: #### C MVQNT ####[facility] LABCLIA [id number] [place] [id number] [place] PHOSPHATIDYLETHANOL (PETH)on 06-11-2023 EER PETH See Note Normal [facility] Comment on above: Order Comment: Speci men Type: BLOOD SPECIMENOrdering Facility: [facility] Address: , , Result Comment: Auth orized individuals can access the [facility] Report using the following link:[email or web address] By: [employer] [place], [place] [address]Vberkttska Director: Audi Bundy MD, PhDCLIA Number: [id number] Performed By: #### P ETH ####[facility] [id number] [place] [address] PETH 16:0/18.2 (PLPETH) <10 Normal [facility] Comment on above: Order Comment: Speci men Type: BLOOD SPECIMENOrdering Facility: [facility] Address: , , Performed By: #### P ETH ####[facility] [id number] [place] [address] PETH 16:0/18:1 (POPETH) <10 Normal [facility] Comment on above: Order Comment: Speci men Type: BLOOD SPECIMENOrdering Facility: [facility] Address: , , Result Comment: INTE RPRETIVE INFORMATION:Phosphatidylethanol (PEth), Whole BloodPhosphatidylethanol (PEth) homologues Result InterpretationPEth 16:0/18:1 (POPEth)Less than 10 ng/mL............Not detectedLess than 20 ng/mL............Abstinence or light alcohol [id number] - 200 ng/mL................Moderate alcohol consumptionGreater than 200 ng/mL........Heavy alcohol consumption or chronic alcohol usePEth 16:0/18:2 (PLPEth).......Reference ranges are not well established.(Reference: Jessica Pulliam and Anup Dee 2018 J. Forensic Sci)Phosphatidylethanol (PEth) is a group of phospholipids formed inthe presence of ethanol, phospholipase D and phosphatidylcholine.PEth is known to be a direct alcohol biomarker. The predominantPEth homologues are PEth 16:0/18:1 (POPEth) and PEth 16:0/18:2(PLPEth), which account for 37-46% and 26-28% of the total PEthhomologues, respectively. PEth is incorporated into thephospholipid membrane of red blood cells and has a generalhalf-life of 4-10 days and a window of detection of 2-4 weeks.However, the window of detection is longer in individuals whochronically or excessively consume alcohol. The limit ofquantification is 10 ng/mL. Serial monitoring of PEth may behelpful in monitoring alcohol abstinence over time. PEth resultsshould be interpreted in the context of the patient's clinical andbehavioral history. Patients with advanced liver disease may havefalsely elevated PEth concentrations (Reyna GALLOWAY et al 2018,Alcoholism Clinical and Experimental Research).This test was developed and its performance characteristicsdetermined by [employer]. It has not been cleared orapproved by the U.S. Food and Drug Administration. This test wasperformed in a CLIA-certified laboratory and is intended forclinical purposes. Performed By: #### P ETH ####[facility] [id number] [place] [address] Tacrolimus Bld-[facility] 2022 Tacrolimus (Bld) [Mass/Vol] 8.3 ng/mL Normal 5.0-20.0 [facility] Comment on above: Order Comment: Speci men Type: BLOOD SPECIMENOrdering Facility: [facility] Address: , , Result Comment: Jennifer vidualized target levels for a given patient will depend on many factors (including the type of organ transplant, time since transplantation, concurrent medications, and other clinical factors), and should be assessed by those health care providers experienced in the management of immunosuppression. Reference ranges and high/low indicator flags are provided as general guidelines only. The treating physician must determine appropriate target levels/dosing based on the specific clinical situation. Test performed by chemiluminescent immunoassay using SWYF Alinity i. Performed By: #### 1 1253-2 ####[facility] LABIA [id number] [place] [address] [place] CYTOMEGALOVIRUS (CMV) DNA, Q UANTITATIVE PCR, PLASMAon 06-08-2023 CMV DNA DEVYN+probe (P) [Log units/Vol] <1.54 Normal [facility] Comment on above: Order Comment: Rasta kennedy Type: BLOOD SPECIMENOrdering Facility: [facility] Address: , , Performed By: #### C MVQNT ####[facility] LABIA [id number] [address] [place] CMV DNA DEVYN+probe Qn (P) Detected Abnormal Not Detected [facility] Comment on above: Order Comment: Rasta kennedy Type: BLOOD SPECIMENOrdering Facility: [facility] Address: , , Performed By: #### C MVQNT ####[facility] LABIA [id number] [address] [place] CMV DNA NUMERIC <35 Normal [facility] Comment on above: Order Comment: Rasta kennedy Type: BLOOD SPECIMENOrdering Facility: [facility] Address: , , Performed By: #### C MVQNT ####[facility] LABIA [id number] [place] [address] [place] Tacrolimus Bld-ncon 2022 Tacrolimus (Bld) [Mass/Vol] 7.2 ng/mL Normal 5.0-20.0 [facility] Comment on above: Order Comment: Rasta kennedy Type: BLOOD SPECIMENOrdering Facility: [facility] Address: , , Result Comment: Jennifer vidualized target levels for a given patient will depend on many factors (including the type of organ transplant, time since transplantation, concurrent medications, and other clinical factors), and should be assessed by those health care providers experienced in the management of immunosuppression. Reference ranges and high/low indicator flags are provided as general guidelines only. The treating physician must determine appropriate target levels/dosing based on the specific clinical situation. Test performed by chemiluminescent immunoassay using Dickson Alinity i. Performed By: #### 1 1253-2 ####[facility] LABCLIA [id number] [place] [address] [place] CYTOMEGALOVIRUS (CMV) DNA, Q UANTITATIVE PCR, PLASMAon 06-04-2023 CMV DNA DEVYN+probe Qn (P) Not detected Normal Not Detected [facility] Comment on above: Order Comment: Rasta kennedy Type: BLOOD SPECIMENOrdering Facility: [facility] Address: , , Performed By: #### C MVQNT ####[facility] LABCLIA [id number] [place] [address] [place] Tacrolimus Bld-mCncon 2022 Tacrolimus (Bld) [Mass/Vol] 4.2 ng/mL Low 5.0-20.0 [facility] Comment on above: Order Comment: Rasta kennedy Type: BLOOD SPECIMENOrdering Facility: [facility] Address: , , Result Comment: Jennifer vidualized target levels for a given patient will depend on many factors (including the type of organ transplant, time since transplantation, concurrent medications, and other clinical factors), and should be assessed by those health care providers experienced in the management of immunosuppression. Reference ranges and high/low indicator flags are provided as general guidelines only. The treating physician must determine appropriate target levels/dosing based on the specific clinical situation. Test performed by chemiluminescent immunoassay using Dickson Alinity i. Performed By: #### 1 1253-2 ####[facility] LABCLIA [id number] [place] [address] [place] CYTOMEGALOVIRUS (CMV) DNA, Q UANTITATIVE PCR, PLASMAon 06-01-2023 CMV DNA DEVYN+probe Qn (P) Not detected Normal Not Detected [facility] Comment on above: Order Comment: Rasta kennedy Type: BLOOD SPECIMENOrdering Facility: [facility] Address: , , Performed By: #### C MVQNT ####[facility] LABCLIA [id number] [facility] [id number] [address] [place] [facility] Comprehensive metabolic 2000 panelon 06-01-2023 Albumin [Mass/Vol] 4.6 g/dL Normal 3.9-4.9 [facility] Comment on above: Order Comment: Speci men Type: BLOOD SPECIMENOrdering Facility: [facility] Address: [address] [place] [address] Performed By: #### 2 4323-8 ####[facility] LABCLIA [id number] [place] [address] ALP [Catalytic activity/Vol] 92 U/L Normal 38-113 [facility] Comment on above: Order Comment: Speci men Type: BLOOD SPECIMENOrdering Facility: [facility] Address: [address] [place] [address] Performed By: #### 2 4323-8 ####[facility] LABCLIA [id number] [place] [address] ALT [Catalytic activity/Vol] 15 U/L Normal 10-54 [facility] Comment on above: Order Comment: Speci men Type: BLOOD SPECIMENOrdering Facility: [facility] Address: [address] [place] [address] Performed By: #### 2 4323-8 ####[facility] LABCLIA [id number] [place] [address] Anion gap [Moles/Vol] 10 mmol/L Normal 9-18 [facility] Comment on above: Order Comment: Speci men Type: BLOOD SPECIMENOrdering Facility: [facility] Address: [address] [place] [address] Performed By: #### 2 4323-8 ####[facility] LABCLIA [id number] [place] [address] AST [Catalytic activity/Vol] 18 U/L Normal 14-40 [facility] Comment on above: Order Comment: Speci men Type: BLOOD SPECIMENOrdering Facility: [facility] Address: [address] [place] [address] Performed By: #### 2 4323-8 ####[facility] LABCLIA [id number] [place] [address] Bilirubin [Mass/Vol] 0.6 mg/dL Normal 0.2-1.3 [facility] Comment on above: Order Comment: Speci men Type: BLOOD SPECIMENOrdering Facility: [facility] Address: [address] [place] [address] Performed By: #### 2 4323-8 ####[facility] LABCLIA [id number] [place] [address] Calcium [Mass/Vol] 10.2 mg/dL Normal 8.5-10.2 [facility] Comment on above: Order Comment: Speci men Type: BLOOD SPECIMENOrdering Facility: [facility] Address: [address] [place] [address] Performed By: #### 2 4323-8 ####[facility] LABCLIA [id number] [place] [address] Chloride [Moles/Vol] 102 mmol/L Normal 97-105 [facility] Comment on above: Order Comment: Speci men Type: BLOOD SPECIMENOrdering Facility: [facility] Address: [address] [place] [address] Performed By: #### 2 4323-8 ####[facility] LABCLIA [id number] [place] [address] CO2 [Moles/Vol] 28 mmol/L Normal 22-30 [facility] Comment on above: Order Comment: Speci men Type: BLOOD SPECIMENOrdering Facility: [facility] Address: [address] [place] [address] Performed By: #### 2 4323-8 ####[facility] LABCLIA [id number] [place] [address] Creatinine [Mass/Vol] 1.00 mg/dL Normal 0.73-1.22 [facility] Comment on above: Order Comment: Rasta kennedy Type: BLOOD SPECIMENOrdering Facility: [facility] Address: [place] [address] Performed By: #### 2 4323-8 ####[facility] LABCLIA [id number] [place] [address] Creatinine and Glomerular filtration rate.predicted panel (S/P/Bld) 96 mL/min/1.73m??? Normal >=60 [facility] Comment on above: Order Comment: Rasta kennedy Type: BLOOD SPECIMENOrdering Facility: [facility] Address: [place] [address] Result Comment: Karma mated Glomerular Filtration Rate (eGFR) is calculated using the 2020 CKD-EPI creatinine equation. This equation utilizes serum creatinine, sex, and age as parameters. The creatinine assay has traceable calibration to isotope dilution-mass spectrometry. Refer to KDIGO guidelines for clinical interpretation. In patients with unstable renal function, e.g. those with acute kidney injury, the eGFR may not accurately reflect actual GFR. Performed By: #### 2 4323-8 ####[facility] LABCLIA [id number] [place] [address] Glucose [Mass/Vol] 114 mg/dL High 74-99 [facility] Comment on above: Order Comment: Rasta kennedy Type: BLOOD SPECIMENOrdering Facility: [facility] Address: [address] [place] [id number] Result Comment: The [place] Diabetes Association (ADA) provides guidance for cutoff values for fasting glucose and random glucose. The ADA defines fasting as no caloric intake for at least 8 hours. Fasting plasma glucose results between 100 to 125 mg/dL indicate increased risk for diabetes (prediabetes).Fasting plasma glucose results greater than or equal to 126 mg/dL meet the criteria for diagnosis of diabetes. In the absence of unequivocal hyperglycemia, results should be confirmed by repeat testing. In a patient with classic symptoms of hyperglycemia or hyperglycemic crisis, random plasma glucose results greater than or equal to 200 mg/dL meet the criteria for diagnosis of diabetes.Reference: Standards of Medical Care in Diabetes 2016, [place] [employer]. Diabetes Care. 2016.39(Suppl 1). Performed By: #### 2 4323-8 ####[facility] LABCLIA [id number] [place] [address] Potassium [Moles/Vol] 5.0 mmol/L Normal 3.7-5.1 [facility] Comment on above: Order Comment: Speci men Type: BLOOD SPECIMENOrdering Facility: [facility] Address: [address] [place] [address] Performed By: #### 2 4323-8 ####[facility] LABCLIA [id number] [place] [address] Protein [Mass/Vol] 6.4 g/dL Normal 6.3-8.0 [facility] Comment on above: Order Comment: Speci men Type: BLOOD SPECIMENOrdering Facility: [facility] Address: [address] [place] [address] Performed By: #### 2 4323-8 ####[facility] LABCLIA [id number] [place] [address] Sodium [Moles/Vol] 140 mmol/L Normal 136-144 [facility] Comment on above: Order Comment: Speci men Type: BLOOD SPECIMENOrdering Facility: [facility] Address: [address] [place] [address] Performed By: #### 2 4323-8 ####[facility] LABCLIA [id number] [place] [address] Urea nitrogen [Mass/Vol] 16 mg/dL Normal 9-24 [facility] Comment on above: Order Comment: Speci men Type: BLOOD SPECIMENOrdering Facility: [facility] Address: [address] [place] [address] Performed By: #### 2 4323-8 ####[facility] LABCLIA [id number] [place] [address] Albumin [Mass/Vol] 4.6 g/dL 3.9 - 4.9 g/dL [facility] ALP [Catalytic activity/Vol] 92 U/L 38 - 113 U/L [facility] ALT [Catalytic activity/Vol] 15 U/L 10 - 54 U/L [facility] Anion gap [Moles/Vol] 10 mmol/L 9 - 18 mmol/L [facility] AST [Catalytic activity/Vol] 18 U/L 14 - 40 U/L [facility] Bilirubin [Mass/Vol] 0.6 mg/dL 0.2 - 1 .3 mg/dL [facility] Calcium [Mass/Vol] 10.2 mg/dL 8.5 - 10. 2 mg/dL [facility] Chloride [Moles/Vol] 102 mmol/L 97 - 10 5 mmol/L [facility] CO2 [Moles/Vol] 28 mmol/L 22 - 30 mmol/L [facility] Creatinine [Mass/Vol] 1.00 mg/dL 0.73 - 1.22 mg/dL [facility] Estimated Glomerular Filtration Rate 96 mL/min/1.73m >=60 mL/min/1.73m [facility] Glucose [Mass/Vol] 114 mg/dL High 74 - 99 mg/dL [facility] Potassium [Moles/Vol] 5.0 mmol/L 3.7 - 5.1 mmol/L [facility] Protein [Mass/Vol] 6.4 g/dL 6.3 - 8.0 g/dL [facility] Sodium [Moles/Vol] 140 mmol/L 136 - 144 mmol/L [facility] Urea nitrogen [Mass/Vol] 16 mg/dL 9 - 24 mg/dL [facility] NT PRO BNPon 06-01-2023 Natriuretic peptide.B prohormone N-Terminal [Mass/Vol] 486 pg/mL High <125 pg/mL [facility] NT-proBNP SerPl-mCncon 06-01 Natriuretic peptide.B prohormone N-Terminal [Mass/Vol] 486 pg/mL High <125 [facility] Comment on above: Order Comment: Speci men Type: BLOOD SPECIMENOrdering Facility: [facility] Address: [address] [place] [address] Performed By: #### 3 3762-6 ####[facility] LABCLIA [id number] [place] [address] [place] Tacrolimus Bld-mCncon 2022 Tacrolimus (Bld) [Mass/Vol] 5.8 ng/mL Normal 5.0-20.0 [facility] Comment on above: Order Comment: Speci men Type: BLOOD SPECIMENOrdering Facility: [facility] Address: , , Result Comment: Jennifer vidualized target levels for a given patient will depend on many factors (including the type of organ transplant, time since transplantation, concurrent medications, and other clinical factors), and should be assessed by those health care providers experienced in the management of immunosuppression. Reference ranges and high/low indicator flags are provided as general guidelines only. The treating physician must determine appropriate target levels/dosing based on the specific clinical situation. Test performed by chemiluminescent immunoassay using SWYF Alinity i. Performed By: #### 1 1253-2 ####[facility] LABCLIA [id number] [place] [address] [place] CNPNon 05-29-2023 CNPN Normal [facility] Ambulatory Visit Summaryon 1 Ambulatory Visit Summary KATHY HAYNES Mauricio :1980 Visit Date:05/28/2023 Ambulatory Visit Instructions Your Diagnosis ALC (alcoholic liver cirrhosis) Esophageal varices Jaundice Vitamin B 12 deficiency Your Care Team Attending Physician - Rachele EUGENE, Amrik Mcgowan Primary Care Physician - JANAY EUGENE, KAUSHAL Pearce This Is Your Medications List BMX Solution acyclovir (acyclovir 400 mg Tab) aspirin (Aspirin Low Dose 81 mg oral enteric coated tablet) buprenorphine-naloxone (buprenorphine-naloxone 8 mg-2 mg sublingual tablet) carvedilol (carvedilol 12.5 mg Tab) cyanocobalamin (Vitamin B12 1000 mcg Tab) cyclobenzaprine (cyclobenzaprine 5 mg Tab) docusate (docusate sodium 100 mg Cap) fludrocortisone (fludrocortisone 0.1 mg Tab) fluticasone topical (fluticasone Top 0.05% Crm 30 gram) furosemide (Lasix 40 mg Tab) furosemide (Lasix 40 mg Tab) losartan (losartan 50 mg Tab) magnesium oxide (magnesium oxide 400 mg Tab) mycophenolate mofetil (mycophenolate mofetil 250 mg Cap) naloxone (naloxone 4 mg/0.1 mL nasal spray) nicotine (nicotine 21 mg/24 hr Transderm ER Film) spironolactone (spironolactone 100 mg Tab) spironolactone (spironolactone 100 mg Tab) sulfamethoxazole-trimethopr im (sulfamethoxazole-trimethop rim 800 mg-160 mg Tab) tacrolimus (tacrolimus 1 mg oral capsule) torsemide (torsemide 20 mg Tab) Procedures Performed Esophagogastroduodenoscopy (07/18/2022), Esophagogastroduodenoscopy (05/23/2022), Esophagogastroduodenoscopy (04/30/2022), Entire transplanted liver. Discharge Vitals Heart Rate (Peripheral) 62 Respiratory Rate 16 Blood Pressure 149/83 Height 193 cm Height 76 in Weight 94.2 kg Weight 207.24 lb BMI 25.29 Medications What How Much When Why Instructions Unchanged acyclovir (acyclovir 400 mg Tab) TAKE 1 TABLET TWICE A DAY Unchanged aspirin (Aspirin Low Dose 81 mg oral enteric coated tablet) Unchanged BMX Solution 5 Milliliter By Mouth Every 2 hours as needed for Chest pain Unchanged buprenorphine-naloxone (buprenorphine-naloxone 8 mg-2 mg sublingual tablet) DISSOLVE 1 TABLET IN MOUTH TWICE A DAY Unchanged carvedilol (carvedilol 12.5 mg Tab) TAKE 1 TABLET TWICE A DAY WITH MEALS Unchanged cyanocobalamin (Vitamin B12 1000 mcg Tab) 1 Tablets By Mouth Every day Unchanged cyclobenzaprine (cyclobenzaprine 5 mg Tab) 1 Tablets By Mouth At bedtime Muscle strain Unchanged docusate (docusate sodium 100 mg Cap) TAKE 1 CAPSULE TWICE A DAY Unchanged fludrocortisone (fludrocortisone 0.1 mg Tab) TAKE 1 TABLET BY MOUTH EVERY DAY Unchanged fluticasone topical (fluticasone Top 0.05% Crm 30 gram) 1 Application Topical 2 times a day Unchanged furosemide (Lasix 40 mg Tab) 1 Tablets By Mouth Every day Unchanged furosemide (Lasix 40 mg Tab) 1 Tablets By Mouth Every day Unchanged losartan (losartan 50 mg Tab) TAKE 1 TABLET BY MOUTH EVERY DAY Unchanged magnesium oxide (magnesium oxide 400 mg Tab) TAKE 2 TABS TWICE A DAY (AT 12 PM AND 5 PM), SEPARATE FROM CELLCEPT BY 2 HOURS Unchanged mycophenolate mofetil (mycophenolate mofetil 250 mg Cap) TAKE 4 CAPSULES BY MOUTH TWICE A DAY Unchanged naloxone (naloxone 4 mg/ 0.1 mL nasal spray) 4 Milligram Nasal Inhalation As Directed for suspected overdose symptoms Unchanged nicotine (nicotine 21 mg/ 24 hr Transderm ER Film) Unchanged spironolactone (spironolactone 100 mg Tab) 1 Tablets By Mouth Every day Unchanged spironolactone (spironolactone 100 mg Tab) 1 Tablets By Mouth Every day Unchanged sulfamethoxazole-trimethopr im (sulfamethoxazole-trimethop rim 800 mg-160 mg Tab) TAKE 1 TABLET BY MOUTH EVERY THURSDAY,THURSDAY,AND THURSDAY Unchanged tacrolimus (tacrolimus 1 mg oral capsule) Unchanged torsemide (torsemide 20 mg Tab) TAKE 2 TABLETS BY MOUTH EVERY DAY NEEDED Medications and Immunizations Administered Not Given influenza virus vaccine, inactivated, Patient Refuses Allergies penicillins (unknown) Problems Ongoing - Any problem that you are currently receiving treatment for. ALC (alcoholic liver cirrhosis) Alcohol abuse Alcoholic cirrhosis Anemia Esophageal varices Forearm laceration Hematuria Illicit drug use Jaundice LFT elevation Lower back pain Lower extremity edema Lower leg edema Vitamin B [address] [facility] Family Medicine Office/Clini c Noteon 05-28-2023 Gastroenterology Office/Clinic Note Chief Complaint 6 mon follow up HPI Staff This is a 42 year old male who presents today for a 6 month follow up. History of Present Illness Kathy Haynes is a 42-year-old male who presents today for a follow-up. He is accompanied by an adult female. He was last seen in 04/2022. He has a history of alcohol induced liver cirrhosis. His MELD score initially was 25, but has been gradually improving down to 221 based on his last visit. It is complicated with esophageal varices that was banded, ascites, and lower extremities edema for which he was started on step 1 diuretics. He was sent to [facility] for liver transplant evaluation. The patient reports that he was told that he should be on the list by 12/11/2022. He states that he is considering a live donor. He denies confusion. He has stopped drinking alcohol completely. The patient reports that he was seeing Dr. Sethi. He states that he switched to his primary care physician and he was given vitamin B12 due to it being low. He states that it helps him with his energy. Review of Systems PHQ Score Initial Depression Screen Score: 0 Constitutional: no fever, no chills, no sweats, no weakness Skin: no Jaundice, no rash, no lesions, no petechiae ENMT: no ear pain, no sore throat, no congestion, no hoarseness Respiratory: no shortness of breath, no cough, no orthopnea, no wheezing Cardiovascular: no chest pain, no palpitations, no edema Gastrointestinal: no nausea, no vomiting, no diarrhea, no constipation, no GI bleeding, no abdominal pain, no dysphagia, no bloating, no heartburn Genitourinary: no dysuria, no hematuria, no discharge, no pain Musculoskeletal: no back pain, no trauma Neurologic: no numbness, no sleeping problems Additional ROS info: Except as noted in the above Review of Systems and in the History of Present Illness all other systems have been reviewed and are negative or noncontributory. Physical Exam Vitals & Measurements HR: 112(Peripheral) RR: 16 BP: 139/56 HT: 76 in HT: 193 cm WT: 101.1 kg WT: 222.42 lb BMI: 27.14 Constitutional: Appearance: well developed Skin: Inspection: no rashes, ulcers, icterus, or telangiectasias. Jaundice. Eyes: Conjunctivae/lids: normal conjunctivae and lids. Sclera icterus bilaterally. ENMT: Hearing: within normal limits. Lips/Teeth/Gums: normal oral mucosa Neck: Neck: normal motion, central trachea Respiratory: Percussion: thorax normoresonant. Auscultation: normal breath sounds; no rubs, wheezes, rale or ronchi. Cardiovascular: Auscultation: normal rhythm, S1 and S2; no rubs, murmurs or gallop. Peripheral: no edema Gastrointestinal/Abdomen: Abdomen: normal consistency and bowel sounds; no tenderness or masses. Liver/Spleen: normal size and consistency, not palpable. Rectal: deferred Musculoskeletal: Gait/station: normal gait Assessment/Plan 1. ALC (alcoholic liver cirrhosis) (K70.30: Alcoholic cirrhosis of liver without ascites) MELD score is 18. The patient quit drinking alcohol on 06/2022. His liver cirrhosis decompensated with esophageal varices which was banded and he had esophageal varices which was banded. 2. Esophageal varices (I85.00: Esophageal varices without bleeding) The patient has large esophageal varices which was banded. His last EGD was done in 06/2022 and showed distal esophageal varices. We will repeat an EGD annually.4The patient is currently being evaluated at [facility] for potential listing.This is well controlled with STI, 1 diuretics and 2 g salt restriction. 3. 3. Jaundice (R17: Unspecified jaundice) Hepatic encephalopathy: None. This is secondary to liver cirrhosis. The patient is being considered for liver transplant listing. 4. Vitamin B 12 deficiency (E53.8: Deficiency of other specified B group vitamins) His last ultrasound was done on 10/2022 and showed no focal liver lesions. Vitamin B12 deficiency: We will recheck vitamin B12. ATTESTATION: Documentation services were performed after patient or guardian consented to allow Arline Sonal Robison to record this visit. GORDY patient service specialist and provider reviewed before signing. GORDY: Cody Quiros. Follow-up No qualifying data available Problem List/Past Medical History Ongoing ALC (alcoholic liver cirrhosis) Alcohol abuse Alcoholic cirrhosis Anemia Esophageal varices Forearm laceration Hematuria Illicit drug use Jaundice LFT elevation Lower back pain Lower extremity edema Lower leg edema Vitamin B 12 deficiency Historical No qualifying data Procedure/Surgical History Esophagogastroduodenoscopy (07/18/2022), Esophagogastroduodenoscopy (05/23/2022), Esophagogastroduodenoscopy (04/30/2022). Medications BMX Solution, 5 mL, Oral, q2hr, PRN, 1 refills, Self Directed cyclobenzaprine 5 mg Tab, 5 mg= 1 tab(s), Oral, Bedtime fluticasone Top 0.05% Crm 30 gram, 1 oly, Topical, BID, 1 refills, Self Directed Lasix 40 mg Tab, 40 mg= 1 tab(s), Oral, Daily, 3 refills (more content not included)... Normal [facility] Comment on above: Result Comment: Elec tronically Signed By: Deangelo Sampson I\.meme\Date and Time Signed: 05/28/23 08:21 EDT Gastroenterology Office/Clin ic Noteon 05-28-2023 Gastroenterology Office/Clinic Note Chief Complaint alcoholic liver cirrhosis HPI Staff Patient is a(n) 43 year old male who presents today for a(n) 6 month follow up. Last visit 11/27/22 w/Dr. Pepe: 1. ALC (alcoholic liver cirrhosis) (K70.30: Alcoholic cirrhosis of liver without ascites) MELD score is 18. The patient quit drinking alcohol on 06/2022. His liver cirrhosis decompensated with esophageal varices which was banded and he had esophageal varices which was banded. 2. Esophageal varices (I85.00: Esophageal varices without bleeding) The patient has large esophageal varices which was banded. His last EGD was done in 06/2022 and showed distal esophageal varices. We will repeat an EGD annually. The patient is currently being evaluated at [facility] for potential listing.This is well controlled with STI, 1 diuretics and 2 g salt restriction. 3. Jaundice (R17: Unspecified jaundice) Hepatic encephalopathy: None. This is secondary to liver cirrhosis. The patient is being considered for liver transplant listing. 4. Vitamin B 12 deficiency (E53.8: Deficiency of other specified B group vitamins) His last ultrasound was done on 10/2022 and showed no focal liver lesions. Vitamin B12 deficiency: We will recheck vitamin B12. Cirrhosis etiology: Years of diagnosis: Labs: 04/09/22 -KIRAN: positive -AMA: -Anti smooth muscle antibody: 10 -Ceruloplasmin: 26.4 -alpha 1 antitrypsin: -Hepatitis panel (Hep A, Hep B and Hep C serologies) - Hep A IgM: negative - Hep B surface antigen: non-reactive antibody: non-reactive core antibody: negative - Hep C: -Iron Studies: 07/03/22 --Iron: 192 --Ferritin: 523 --TIBC: 223 US liver 11/04/22: IMPRESSION: CIRRHOSIS. GALLBLADDER SLUDGE AND/OR TINY CALCULI, GALLBLADDER DISTENTION, AND MILD GALLBLADDER WALL THICKENING WITHOUT SIGNIFICANT CHANGE. Fibroscan: Liver Biopsy 04/04/2023: A. [place] liver and gallbladder, total hepatectomy and cholecystectomy: - Cirrhosis. See comment A - Mild chronic cholecystitis with cholelithiasis. B. Donor gallbladder, cholecystectomy: - Acute hemorrhagic cholecystitis with mucosal reactive changes. C. Donor liver, wedge biopsy: - Subcapsular hepatic parenchyma with mild ischemia/reperfusion injury. See comment C NOSIS COMMENT Result Comments: Comment A: The hepatic parenchyma demonstrates established cirrhosis. The portal tracts and fibrous septa contain imxp-sd-edqiqfcu lymphocyte-predominant inflammatory infiltrate and minimal interface activity. Foci of bile ductular reaction are present, but the [place] bile ducts are intact. There is no significant steatosis, hepatocyte ballooning, Porsha-Denk bodies, or inflammation. Occasional canalicular cholestasis is noted. PAS-D stain does not reveal diagnostic intracytoplasmic inclusions. Prussian blue stain highlights iron deposition (3+ out of 4+) predominantly within hepatocytes. Overall, given the clinical history of long-term ethanol use, the histologic changes may represent cirrhosis due to burnt-out steatotic liver disease. Comment C: A verma finding in the current wedge biopsy is the presence of confluent hepatocyte necrosis involving approximately 10% of the parenchyma, together with occasional centrilobular hepatocyte loss and acidophil bodies. The lobules demonstrate minimal (<5 %) macrovesicular steatosis but no hepatocyte ballooning, Porsha Denk bodies or inflammation. The portal areas contain intact [place] bile ducts and vasculature, and txuulr-ac-iodivku lymphocytic inflammation. Neutrophilic inflammation in the portal areas is likely procedural (i.e.surgical hepatitis). Trichrome stain highlights some portal and perivenular/perisinusoidal fibrosis, the significance of which is unclear due to the subcapsular nature of this biopsy. No diagnostic cytoplasmic inclusions are identified on PAS-D stain. Prussian blue stain is negative for iron. Overall, these histologic features are likely attributable to mild ischemia/reperfusion injury. Please correlate clinically History of Present Illness s/p OLT March doner Doing well issues On [facility], follows closely transplant team there, was seeing Dr. Wolff as well from hepatology there Review of Systems PHQ Score Initial Depression Screen Score: 0 Physical Exam Vitals & Measurements HR: 62(Peripheral) RR: 16 BP: 149/83 SpO2: 100% HT: 76 in HT: 193 cm WT: 94.2 kg WT: 207.24 lb BMI: 25.29 Assessment/Plan 1. ALC (alcoholic liver cirrhosis) (K70.30: Alcoholic cirrhosis of liver without ascites) Status post OLT cadaver, March 2023, excellent result Following closely with transplant team, continue to follow their 2. Esophageal varices (I85.00: Esophageal varices without bleeding) Status post transplant, no need to repeat EGDs 3. Jaundice (R17: Unspecified jaundice) Resolved 4. Vitamin B 12 deficiency (E53.8: Deficiency of other specified B group vitamins) F (more content not included)... Normal [facility] Comment on above: Result Comment: Elec tronically Signed By: Rachele EUGENE, Amrik Mcgowan\.br\Date and Time Signed: 05/28/23 15:27 EDT CYTOMEGALOVIRUS (CMV) DNA, Q UANTITATIVE PCR, PLASMAon 05-27-2023 CMV DNA DEVYN+probe Qn (P) Not detected Normal Not Detected [facility] Comment on above: Order Comment: Rasta kennedy Type: BLOOD SPECIMENOrdering Facility: [facility] Address: , , Performed By: #### C MVQNT ####[facility] LABCLIA [id number] [place] [address] [place] Tacrolimus Bld-mCncon 2022 Tacrolimus (Bld) [Mass/Vol] 19.4 ng/mL Normal 5.0-20.0 [facility] Comment on above: Order Comment: Rasta kennedy Type: BLOOD SPECIMENOrdering Facility: [facility] Address: , , Result Comment: Jennifer vidualized target levels for a given patient will depend on many factors (including the type of organ transplant, time since transplantation, concurrent medications, and other clinical factors), and should be assessed by those health care providers experienced in the management of immunosuppression. Reference ranges and high/low indicator flags are provided as general guidelines only. The treating physician must determine appropriate target levels/dosing based on the specific clinical situation. Test performed by chemiluminescent immunoassay using SWYF Alinity i. Performed By: #### 1 1253-2 ####[facility] LABCLIA [id number] [place] [address] [place] CYTOMEGALOVIRUS (CMV) DNA, Q UANTITATIVE PCR, PLASMAon 05-25-2023 CMV DNA DEVYN+probe Qn (P) Not detected Normal Not Detected [facility] Comment on above: Order Comment: Rasta kennedy Type: BLOOD SPECIMENOrdering Facility: [facility] Address: , , Performed By: #### C MVQNT ####[facility] LABIA [id number] [place] [address] [place] Tacrolimus Bld-mCncon 2022 Tacrolimus (Bld) [Mass/Vol] 10.6 ng/mL Normal 5.0-20.0 [facility] Comment on above: Order Comment: Rasta kennedy Type: BLOOD SPECIMENOrdering Facility: [facility] Address: , , Result Comment: Jennifer vidualized target levels for a given patient will depend on many factors (including the type of organ transplant, time since transplantation, concurrent medications, and other clinical factors), and should be assessed by those health care providers experienced in the management of immunosuppression. Reference ranges and high/low indicator flags are provided as general guidelines only. The treating physician must determine appropriate target levels/dosing based on the specific clinical situation. Test performed by chemiluminescent immunoassay using [employer]Traklight i. Performed By: #### 1 1253-2 ####[facility] [id number] [place] [address] [place] CNOVon 05-22-2023 CNOV Normal [facility] CNOV Normal [facility] CYTOMEGALOVIRUS (CMV) DNA, Q UANTITATIVE PCR, PLASMAon 05-21-2023 CMV DNA DEVYN+probe Qn (P) Not detected Normal Not Detected [facility] Comment on above: Order Comment: Rasta kennedy Type: BLOOD SPECIMENOrdering Facility: [facility] Address: , , Performed By: #### C MVQNT ####[facility] [id number] [place] [address] [place] Tacrolimus Bld-mCncon 2022 Tacrolimus (Bld) [Mass/Vol] 9.8 ng/mL Normal 5.0-20.0 [facility] Comment on above: Order Comment: Rasta kennedy Type: BLOOD SPECIMENOrdering Facility: [facility] Address: , , Result Comment: Jennifer vidualized target levels for a given patient will depend on many factors (including the type of organ transplant, time since transplantation, concurrent medications, and other clinical factors), and should be assessed by those health care providers experienced in the management of immunosuppression. Reference ranges and high/low indicator flags are provided as general guidelines only. The treating physician must determine appropriate target levels/dosing based on the specific clinical situation. Test performed by chemiluminescent immunoassay using SWYF Alinity i. Performed By: #### 1 1253-2 ####[facility] LABCLIA [id number] [facility] [id number] CBC W Auto Differential pane l (Bld)on 05-18-2023 Basophils (Bld) [#/Vol] 0.07 10*3/uL Normal <0.11 [facility] Comment on above: Order Comment: Speci men Type: BLOOD SPECIMENOrdering Facility: [facility] Address: [address] [address] Performed By: #### 5 7021-8 ####[facility] LABCLIA [id number] [place] [address] Basophils/100 WBC (Bld) 1.2 % Normal [facility] Comment on above: Order Comment: Speci men Type: BLOOD SPECIMENOrdering Facility: [facility] Address: [address] [address] Performed By: #### 5 7021-8 ####[facility] LABCLIA [id number] [place] [address] Differential cell count method Nom (Bld) Auto Normal [facility] Comment on above: Order Comment: Speci men Type: BLOOD SPECIMENOrdering Facility: [facility] Address: [address] [address] Performed By: #### 5 7021-8 ####[facility] LABCLIA [id number] [place] [address] Eosinophils (Bld) [#/Vol] 0.30 10*3/uL Normal <0.46 [facility] Comment on above: Order Comment: Speci men Type: BLOOD SPECIMENOrdering Facility: [facility] Address: [address] [address] Performed By: #### 5 7021-8 ####[facility] LABCLIA [id number] [place] [address] Eosinophils/100 WBC (Bld) 5.0 % Normal [facility] Comment on above: Order Comment: Speci men Type: BLOOD SPECIMENOrdering Facility: [facility] Address: [address] [place] [address] Performed By: #### 5 7021-8 ####[facility] LABCLIA [id number] [place] [address] Erythrocyte distribution width (RBC) [Ratio] 13.3 % Normal 11.5-15.0 [facility] Comment on above: Order Comment: Speci men Type: BLOOD SPECIMENOrdering Facility: [facility] Address: [address] [place] [address] Performed By: #### 5 7021-8 ####[facility] LABCLIA [id number] [place] [address] Hematocrit (Bld) [Volume fraction] 35.7 % Low 39.0-51.0 [facility] Comment on above: Order Comment: Speci men Type: BLOOD SPECIMENOrdering Facility: [facility] Address: [address] [place] [address] Performed By: #### 5 7021-8 ####[facility] LABCLIA [id number] [place] [address] Hemoglobin (Bld) [Mass/Vol] 12.0 g/dL Low 13.0-17.0 [facility] Comment on above: Order Comment: Speci men Type: BLOOD SPECIMENOrdering Facility: [facility] Address: [address] [place] [address] Performed By: #### 5 7021-8 ####[facility] LABCLIA [id number] [place] [address] Immature granulocytes (Bld) [#/Vol] 10*3/uL Normal <0.10 [facility] Comment on above: Order Comment: Speci men Type: BLOOD SPECIMENOrdering Facility: [facility] Address: [address] [place] [address] Performed By: #### 5 7021-8 ####[facility] LABCLIA [id number] [place] [address] Immature granulocytes/100 WBC (Bld) 0.3 % Normal [facility] Comment on above: Order Comment: Speci men Type: BLOOD SPECIMENOrdering Facility: [facility] Address: [address] [place] [address] Performed By: #### 5 7021-8 ####[facility] LABCLIA [id number] [place] [address] Lymphocytes (Bld) [#/Vol] 1.70 10*3/uL Normal 1.00-4.00 [facility] Comment on above: Order Comment: Speci men Type: BLOOD SPECIMENOrdering Facility: [facility] Address: [address] [address] Performed By: #### 5 7021-8 ####[facility] LABCLIA [id number] [place] [address] Lymphocytes/100 WBC (Bld) 28.3 % Normal [facility] Comment on above: Order Comment: Speci men Type: BLOOD SPECIMENOrdering Facility: [facility] Address: [address] [address] Performed By: #### 5 7021-8 ####[facility] LABCLIA [id number] [place] [address] MCH (RBC) [Entitic mass] 31.3 pg Normal 26.0-34.0 [facility] Comment on above: Order Comment: Speci men Type: BLOOD SPECIMENOrdering Facility: [facility] Address: [address] [place] [address] Performed By: #### 5 7021-8 ####[facility] LABCLIA [id number] [place] [address] MCHC (RBC) [Mass/Vol] 33.6 g/dL Normal 30.5-36.0 [facility] Comment on above: Order Comment: Speci men Type: BLOOD SPECIMENOrdering Facility: [facility] Address: [address] [place] [address] Performed By: #### 5 7021-8 ####[facility] LABIA [id number] [place] [address] MCV (RBC) [Entitic vol] 93.2 fL Normal 80.0-100.0 [facility] Comment on above: Order Comment: Speci men Type: BLOOD SPECIMENOrdering Facility: [facility] Address: [address] [place] [address] Performed By: #### 5 7021-8 ####[facility] LABIA [id number] [place] [address] Monocytes (Bld) [#/Vol] 0.71 10*3/uL Normal <0.87 [facility] Comment on above: Order Comment: Speci men Type: BLOOD SPECIMENOrdering Facility: [facility] Address: [address] [place] [address] Performed By: #### 5 7021-8 ####[facility] LABCLIA [id number] [place] [address] Monocytes/100 WBC (Bld) 11.8 % Normal [facility] Comment on above: Order Comment: Speci men Type: BLOOD SPECIMENOrdering Facility: [facility] Address: [address] [place] [address] Performed By: #### 5 7021-8 ####[facility] LABCLIA [id number] [place] [address] Neutrophils (Bld) [#/Vol] 3.21 10*3/uL Normal 1.45-7.50 [facility] Comment on above: Order Comment: Speci men Type: BLOOD SPECIMENOrdering Facility: [facility] Address: [address] [place] [address] Performed By: #### 5 7021-8 ####[facility] LABCLIA [id number] [place] [address] Neutrophils/100 WBC (Bld) 53.4 % Normal [facility] Comment on above: Order Comment: Speci men Type: BLOOD SPECIMENOrdering Facility: [facility] Address: [address] [place] [address] Performed By: #### 5 7021-8 ####[facility] LABCLIA [id number] [place] [address] Nucleated RBC (Bld) [#/Vol] 10*3/uL Normal <0.01 [facility] Comment on above: Order Comment: Speci men Type: BLOOD SPECIMENOrdering Facility: [facility] Address: [address] [place] [address] Performed By: #### 5 7021-8 ####[facility] LABCLIA [id number] [place] [address] Nucleated RBC/100 WBC (Bld) [Ratio] 0.0 /100 WBC Normal [facility] Comment on above: Order Comment: Speci men Type: BLOOD SPECIMENOrdering Facility: [facility] Address: [address] [place] [address] Performed By: #### 5 7021-8 ####[facility] LABCLIA [id number] [place] [address] Platelet mean volume (Bld) [Entitic vol] 8.7 fL Low 9.0-12.7 [facility] Comment on above: Order Comment: Speci men Type: BLOOD SPECIMENOrdering Facility: [facility] Address: [address] [place] [address] Performed By: #### 5 7021-8 ####[facility] LABCLIA [id number] [place] [address] Platelets (Bld) [#/Vol] 164 10*3/uL Normal 150-400 [facility] Comment on above: Order Comment: Speci men Type: BLOOD SPECIMENOrdering Facility: [facility] Address: [address] [place] [address] Performed By: #### 5 7021-8 ####[facility] LABCLIA [id number] [place] [address] RBC (Bld) [#/Vol] 3.83 10*6/uL Low 4.20-6.00 [facility] Comment on above: Order Comment: Speci men Type: BLOOD SPECIMENOrdering Facility: [facility] Address: [address] [place] [address] Performed By: #### 5 7021-8 ####[facility] LABCLIA [id number] [place] [address] WBC (Bld) [#/Vol] 6.01 10*3/uL Normal 3.70-11.00 [facility] Comment on above: Order Comment: Speci men Type: BLOOD SPECIMENOrdering Facility: [facility] Address: [address] [place] [address] Performed By: #### 5 7021-8 ####[facility] LABCLIA [id number] [place] [address] CYTOMEGALOVIRUS (CMV) DNA, Q UANTITATIVE PCR, PLASMAon 05-18-2023 CMV DNA DEVYN+probe Qn (P) Not detected Normal Not Detected [facility] Comment on above: Order Comment: Speci men Type: BLOOD SPECIMENOrdering Facility: [facility] Address: [address] [place] [address] Performed By: #### C MVQNT ####[facility] LABCLIA [id number] [facility] [id number] [address] [facility] Comprehensive metabolic 2000 panelon 05-18-2023 Albumin [Mass/Vol] 4.2 g/dL Normal 3.9-4.9 [facility] Comment on above: Order Comment: Speci men Type: BLOOD SPECIMENOrdering Facility: [facility] Address: [address] [place] [address] Performed By: #### 2 777-1, , ####[facility] LABCLIA [id number] [place] [address] ALP [Catalytic activity/Vol] 96 U/L Normal 38-113 [facility] Comment on above: Order Comment: Speci men Type: BLOOD SPECIMENOrdering Facility: [facility] Address: [address] [place] [address] Performed By: #### 2 777-1, , ####[facility] LABIA [id number] [place] [address] ALT [Catalytic activity/Vol] 9 U/L Low 10-54 [facility] Comment on above: Order Comment: Speci men Type: BLOOD SPECIMENOrdering Facility: [facility] Address: [address] [place] [address] Performed By: #### 2 777-1, , ####[facility] LABIA [id number] [place] [address] Anion gap [Moles/Vol] 8 mmol/L Low 9-18 [facility] Comment on above: Order Comment: Speci men Type: BLOOD SPECIMENOrdering Facility: [facility] Address: [address] [place] [address] Performed By: #### 2 777-1, , ####[facility] LABIA [id number] [place] [address] AST [Catalytic activity/Vol] 14 U/L Normal 14-40 [facility] Comment on above: Order Comment: Speci men Type: BLOOD SPECIMENOrdering Facility: [facility] Address: [address] Performed By: #### 2 777-1, , ####[facility] LABCLIA [id number] [place] [address] Bilirubin [Mass/Vol] 0.3 mg/dL Normal 0.2-1.3 [facility] Comment on above: Order Comment: Speci men Type: BLOOD SPECIMENOrdering Facility: [facility] Address: [address] [address] Performed By: #### 2 777-1, , ####[facility] LABIA [id number] [place] [address] Calcium [Mass/Vol] 10.1 mg/dL Normal 8.5-10.2 [facility] Comment on above: Order Comment: Speci men Type: BLOOD SPECIMENOrdering Facility: [facility] Address: [address] [address] Performed By: #### 2 777-1, , ####[facility] LABIA [id number] [place] [address] Chloride [Moles/Vol] 105 mmol/L Normal 97-105 [facility] Comment on above: Order Comment: Speci men Type: BLOOD SPECIMENOrdering Facility: [facility] Address: [address] [address] Performed By: #### 2 777-1, , ####[facility] LABIA [id number] [place] [address] CO2 [Moles/Vol] 28 mmol/L Normal 22-30 [facility] Comment on above: Order Comment: Speci men Type: BLOOD SPECIMENOrdering Facility: [facility] Address: [address] [address] Performed By: #### 2 777-1, , ####[facility] LABCLIA [id number] [place] [address] Creatinine [Mass/Vol] 1.24 mg/dL High 0.73-1.22 [facility] Comment on above: Order Comment: Speci men Type: BLOOD SPECIMENOrdering Facility: [facility] Address: [address] [place] [address] Performed By: #### 2 777-1, , ####[facility] LABIA [id number] [place] [address] Creatinine and Glomerular filtration rate.predicted panel (S/P/Bld) 74 mL/min/1.73m??? Normal >=60 [facility] Comment on above: Order Comment: Rasta kennedy Type: BLOOD SPECIMENOrdering Facility: [facility] Address: [address] [place] [address] Result Comment: Karma mated Glomerular Filtration Rate (eGFR) is calculated using the 2020 CKD-EPI creatinine equation. This equation utilizes serum creatinine, sex, and age as parameters. The creatinine assay has traceable calibration to isotope dilution-mass spectrometry. Refer to KDIGO guidelines for clinical interpretation. In patients with unstable renal function, e.g. those with acute kidney injury, the eGFR may not accurately reflect actual GFR. Performed By: #### 2 777-1, , ####[facility] LABCLIA [id number] [place] [address] Glucose [Mass/Vol] 95 mg/dL Normal 74-99 [facility] Comment on above: Order Comment: Speci brent Type: BLOOD SPECIMENOrdering Facility: [facility] Address: [address] [place] [address] Result Comment: The [place] Diabetes Association (ADA) provides guidance for cutoff values for fasting glucose and random glucose. The ADA defines fasting as no caloric intake for at least 8 hours. Fasting plasma glucose results between 100 to 125 mg/dL indicate increased risk for diabetes (prediabetes).Fasting plasma glucose results greater than or equal to 126 mg/dL meet the criteria for diagnosis of diabetes. In the absence of unequivocal hyperglycemia, results should be confirmed by repeat testing. In a patient with classic symptoms of hyperglycemia or hyperglycemic crisis, random plasma glucose results greater than or equal to 200 mg/dL meet the criteria for diagnosis of diabetes.Reference: Standards of Medical Care in Diabetes 2016, [place] Diabetes Association. Diabetes Care. 2016.39(Suppl 1). Performed By: #### 2 777-1, , ####[facility] LABCLIA [id number] [place] [address] Potassium [Moles/Vol] 5.2 mmol/L High 3.7-5.1 [facility] Comment on above: Order Comment: Speci men Type: BLOOD SPECIMENOrdering Facility: [facility] Address: [address] [place] [address] Performed By: #### 2 777-1, , ####[facility] LABIA [id number] [place] [address] Protein [Mass/Vol] 6.2 g/dL Low 6.3-8.0 [facility] Comment on above: Order Comment: Speci men Type: BLOOD SPECIMENOrdering Facility: [facility] Address: [address] [place] [address] Performed By: #### 2 777-1, , ####[facility] LABCLIA [id number] [place] [address] Sodium [Moles/Vol] 141 mmol/L Normal 136-144 [facility] Comment on above: Order Comment: Speci men Type: BLOOD SPECIMENOrdering Facility: [facility] Address: [address] [address] Performed By: #### 2 777-1, , ####[facility] LABCLIA [id number] [place] [address] Urea nitrogen [Mass/Vol] 21 mg/dL Normal 9-24 [facility] Comment on above: Order Comment: Speci men Type: BLOOD SPECIMENOrdering Facility: [facility] Address: [address] [place] [address] Performed By: #### 2 777-1, 04114-8, 79619-9 ####[facility] LABCLIA [id number] [place] [address] GGT SerPl-cCncon 05-18-2023 Gamma glutamyl transferase [Catalytic activity/Vol] 61 U/L Normal 10-70 [facility] Comment on above: Order Comment: Speci men Type: BLOOD SPECIMENOrdering Facility: [facility] Address: [address] [place] [address] Performed By: #### 2 324-2 ####[facility] LABCLIA [id number] [place] [address] [place] HBV DNA Qn (S)on 05-18-2023 HBV DNA DEVYN+probe Qn Not detected Normal HBV DNA not detected by PCR [facility] Comment on above: Order Comment: Speci men Type: BLOOD SPECIMENOrdering Facility: [facility] Address: [address] [place] [address] Performed By: #### 1 1258-1 ####[facility] LABCLIA [id number] [place] [address] [place] HCV RNA SerPl DEVYN+probe-aCnc on 05-18-2023 HCV RNA DEVYN+probe Qn Not detected Normal HCV RNA not detected by PCR. [facility] Comment on above: Order Comment: Speci men Type: BLOOD SPECIMENOrdering Facility: [facility] Address: [address] [place] [address] Performed By: #### 1 1011-4 ####[facility] LABCLIA [id number] [place] [address] [place] HIV1 RNA # SerPl DEVYN+probeon 05-18-2023 HIV 1 RNA DEVYN+probe [#/Vol] Not detected Normal HIV-1 RNA not detected by PCR. [facility] Comment on above: Order Comment: Speci men Type: BLOOD SPECIMENOrdering Facility: [facility] Address: [address] [place], [place] [id number] Performed By: #### 2 0447-9 ####[facility] LABCLIA [id number] [place] [address] [facility] Magnesium SerPl-mCncon 05-18 Magnesium [Mass/Vol] 1.7 mg/dL Normal 1.7-2.3 [facility] Comment on above: Order Comment: Speci men Type: BLOOD SPECIMENOrdering Facility: [facility] Address: [address] [place] [address] Performed By: #### 2 777-1, 19759-1, 15275-9 ####[facility] LABCLIA [id number] [place] [address] PHOSPHATIDYLETHANOL (PETH)on 05-18-2023 EER PETH See Note Normal [facility] Comment on above: Order Comment: Speci men Type: BLOOD SPECIMENOrdering Facility: [facility] Address: [address] [place] [address] Result Comment: Auth orized individuals can access the [facility] Report using the following link:[email or web address] By: KORTNEY [address] [place], [place] [address]Euqvtznehq Director: Audi Bundy MD, PhDCLIA Number: [id number] Performed By: #### P ETH ####[facility] [id number] [place] [address] PETH 16:0/18.2 (PLPETH) <10 Normal [facility] Comment on above: Order Comment: Speci men Type: BLOOD SPECIMENOrdering Facility: [facility] Address: [address] [place], [place] [address] [address] Performed By: #### P ETH ####[facility] [id number] [place] [address] PETH 16:0/18:1 (POPETH) <10 Normal [facility] Comment on above: Order Comment: Speci men Type: BLOOD SPECIMENOrdering Facility: [facility] Address: [address] [place] [id number] Result Comment: INTE RPRETIVE INFORMATION:Phosphatidylethanol (PEth), Whole BloodPhosphatidylethanol (PEth) homologues Result InterpretationPEth 16:0/18:1 (POPEth)Less than 10 ng/mL............Not detectedLess than 20 ng/mL............Abstinence or light alcohol [id number] - 200 ng/mL................Moderate alcohol consumptionGreater than 200 ng/mL........Heavy alcohol consumption or chronic alcohol usePEth 16:0/18:2 (PLPEth).......Reference ranges are not well established.(Reference: Jessica Pulliam and Anup Dee 2018 J. Forensic Sci)Phosphatidylethanol (PEth) is a group of phospholipids formed inthe presence of ethanol, phospholipase D and phosphatidylcholine.PEth is known to be a direct alcohol biomarker. The predominantPEth homologues are PEth 16:0/18:1 (POPEth) and PEth 16:0/18:2(PLPEth), which account for 37-46% and 26-28% of the total PEthhomologues, respectively. PEth is incorporated into thephospholipid membrane of red blood cells and has a generalhalf-life of 4-10 days and a window of detection of 2-4 weeks.However, the window of detection is longer in individuals whochronically or excessively consume alcohol. The limit ofquantification is 10 ng/mL. Serial monitoring of PEth may behelpful in monitoring alcohol abstinence over time. PEth resultsshould be interpreted in the context of the patient's clinical andbehavioral history. Patients with advanced liver disease may havefalsely elevated PEth concentrations (Reyna GALLOWAY et al 2018,Alcoholism Clinical and Experimental Research).This test was developed and its performance characteristicsdetermined by [employer]. It has not been cleared orapproved by the U.S. Food and Drug Administration. This test wasperformed in a CLIA-certified laboratory and is intended forclinical purposes. Performed By: #### P ETH ####[facility] [id number] [place] [address] Phosphate SerPl-mCncon 05-18 Phosphate [Mass/Vol] 4.1 mg/dL Normal 2.7-4.8 [facility] Comment on above: Order Comment: Rasta kennedy Type: BLOOD SPECIMENOrdering Facility: [facility] Address: [address] [place] [address] Performed By: #### 2 777-1, 37982-0, 56744-5 ####[facility] LABCLIA [id number] [place] [address] Tacrolimus Bld-ncon 2022 Tacrolimus (Bld) [Mass/Vol] 13.6 ng/mL Normal 5.0-20.0 [facility] Comment on above: Order Comment: Rasta kennedy Type: BLOOD SPECIMENOrdering Facility: [facility] Address: [address] [place] [address] Result Comment: Jennifer vidualized target levels for a given patient will depend on many factors (including the type of organ transplant, time since transplantation, concurrent medications, and other clinical factors), and should be assessed by those health care providers experienced in the management of immunosuppression. Reference ranges and high/low indicator flags are provided as general guidelines only. The treating physician must determine appropriate target levels/dosing based on the specific clinical situation. Test performed by chemiluminescent immunoassay using Dickson Alinity i. Performed By: #### 1 1253-2 ####[facility] LABCLIA [id number] [place] [address] [place] CNPNon 05-14-2023 CNPN Normal [facility] CYTOMEGALOVIRUS (CMV) DNA, Q UANTITATIVE PCR, PLASMAon 05-14-2023 CMV DNA DEVYN+probe (P) [Log units/Vol] <1.54 Normal [facility] Comment on above: Order Comment: Rasta kennedy Type: BLOOD SPECIMENOrdering Facility: [facility] Address: , , Performed By: #### C MVQNT ####[facility] LABCLIA [id number] [place] [address] [place] CMV DNA DEVYN+probe Qn (P) Detected Abnormal Not Detected [facility] Comment on above: Order Comment: Rasta kennedy Type: BLOOD SPECIMENOrdering Facility: [facility] Address: , , Performed By: #### C MVQNT ####[facility] LABCLIA [id number] [place] [address] [place] CMV DNA NUMERIC <35 Normal [facility] Comment on above: Order Comment: Rasta kennedy Type: BLOOD SPECIMENOrdering Facility: [facility] Address: , , Performed By: #### C MVQNT ####[facility] LABCLIA [id number] [place] [address] [place] Tacrolimus Bld-[facility] 2022 Tacrolimus (Bld) [Mass/Vol] 11.1 ng/mL Normal 5.0-20.0 [facility] Comment on above: Order Comment: Rasta kennedy Type: BLOOD SPECIMENOrdering Facility: [facility] Address: , , Result Comment: Jennifer vidualized target levels for a given patient will depend on many factors (including the type of organ transplant, time since transplantation, concurrent medications, and other clinical factors), and should be assessed by those health care providers experienced in the management of immunosuppression. Reference ranges and high/low indicator flags are provided as general guidelines only. The treating physician must determine appropriate target levels/dosing based on the specific clinical situation. Test performed by chemiluminescent immunoassay using SWYF Alinity i. Performed By: #### 1 1253-2 ####[facility] LABCLIA [id number] [place] [address] [place] CYTOMEGALOVIRUS (CMV) DNA, Q UANTITATIVE PCR, PLASMAon 05-07-2023 CMV DNA DEVYN+probe Qn (P) Not detected Normal Not Detected [facility] Comment on above: Order Comment: Rasta kennedy Type: BLOOD SPECIMENOrdering Facility: [facility] Address: , , Performed By: #### C MVQNT ####[facility] LABCLIA [id number] [place] [address] [place] Tacrolimus Bld-mCncon 2022 Tacrolimus (Bld) [Mass/Vol] 10.9 ng/mL Normal 5.0-20.0 [facility] Comment on above: Order Comment: Rasta kennedy Type: BLOOD SPECIMENOrdering Facility: [facility] Address: , , Result Comment: Jennifer vidualized target levels for a given patient will depend on many factors (including the type of organ transplant, time since transplantation, concurrent medications, and other clinical factors), and should be assessed by those health care providers experienced in the management of immunosuppression. Reference ranges and high/low indicator flags are provided as general guidelines only. The treating physician must determine appropriate target levels/dosing based on the specific clinical situation. Test performed by chemiluminescent immunoassay using Dickson Alinity i. Performed By: #### 1 1253-2 ####[facility] LABIA [id number] [place] [address] [place] Basic metabolic 2000 panelon 04-30-2023 Anion gap [Moles/Vol] 8 mmol/L Low 9-18 [facility] Comment on above: Order Comment: Rasta kennedy Type: BLOOD SPECIMENOrdering Facility: [facility] Address: [address] [place] [address] Performed By: #### 2 4321-2, 16556-9 ####[facility] LABIA [id number] [place] [address] [place] Calcium [Mass/Vol] 9.7 mg/dL Normal 8.5-10.2 [facility] Comment on above: Order Comment: Rasta kennedy Type: BLOOD SPECIMENOrdering Facility: [facility] Address: [address] Performed By: #### 2 4321-2, 85042-9 ####[facility] LABCLIA [id number] [place] [address] [place] Chloride [Moles/Vol] 103 mmol/L Normal 97-105 [facility] Comment on above: Order Comment: Speci men Type: BLOOD SPECIMENOrdering Facility: [facility] Address: [address] [place] [address] Performed By: #### 2 4321-2, 82851-0 ####[facility] LABCLIA [id number] [address] [place] CO2 [Moles/Vol] 30 mmol/L Normal 22-30 [facility] Comment on above: Order Comment: Speci men Type: BLOOD SPECIMENOrdering Facility: [facility] Address: [address] [place] [address] Performed By: #### 2 4321-2, 77104-1 ####[facility] LABCLIA [id number] [place] [address] [place] Creatinine [Mass/Vol] 1.19 mg/dL Normal 0.73-1.22 [facility] Comment on above: Order Comment: Speci men Type: BLOOD SPECIMENOrdering Facility: [facility] Address: [address] [place], [place] [address] Performed By: #### 2 4321-2, 88260-4 ####[facility] LABCLIA [id number] [place] [address] [place] Creatinine and Glomerular filtration rate.predicted panel (S/P/Bld) 79 mL/min/1.73m??? Normal >=60 [facility] Comment on above: Order Comment: Speci men Type: BLOOD SPECIMENOrdering Facility: [facility] Address: [address] [place], [place] [address] Result Comment: Karma mated Glomerular Filtration Rate (eGFR) is calculated using the 2020 CKD-EPI creatinine equation. This equation utilizes serum creatinine, sex, and age as parameters. The creatinine assay has traceable calibration to isotope dilution-mass spectrometry. Refer to KDIGO guidelines for clinical interpretation. In patients with unstable renal function, e.g. those with acute kidney injury, the eGFR may not accurately reflect actual GFR. Performed By: #### 2 4321-2, 02067-3 ####[facility] LABCLIA [id number] [place] [address] [place] Glucose [Mass/Vol] 100 mg/dL High 74-99 [facility] Comment on above: Order Comment: Rasta kennedy Type: BLOOD SPECIMENOrdering Facility: [facility] Address: [address] [place] [address] Result Comment: The [place] Diabetes Association (ADA) provides guidance for cutoff values for fasting glucose and random glucose. The ADA defines fasting as no caloric intake for at least 8 hours. Fasting plasma glucose results between 100 to 125 mg/dL indicate increased risk for diabetes (prediabetes).Fasting plasma glucose results greater than or equal to 126 mg/dL meet the criteria for diagnosis of diabetes. In the absence of unequivocal hyperglycemia, results should be confirmed by repeat testing. In a patient with classic symptoms of hyperglycemia or hyperglycemic crisis, random plasma glucose results greater than or equal to 200 mg/dL meet the criteria for diagnosis of diabetes.Reference: Standards of Medical Care in Diabetes 2016, [place] [employer]. Diabetes Care. 2016.39(Suppl 1). Performed By: #### 2 4321-2, 44376-0 ####[facility] LABIA [id number] [place] [address] [place] Potassium [Moles/Vol] 4.9 mmol/L Normal 3.7-5.1 [facility] Comment on above: Order Comment: Rasta kennedy Type: BLOOD SPECIMENOrdering Facility: [facility] Address: [address] [id number] Performed By: #### 2 4321-2, 61339-8 ####[facility] LABCLIA [id number] [place] [address] [place] Sodium [Moles/Vol] 141 mmol/L Normal 136-144 [facility] Comment on above: Order Comment: Speci men Type: BLOOD SPECIMENOrdering Facility: [facility] Address: [address] [place] [address] Performed By: #### 2 4321-2, 60512-1 ####[facility] LABIA [id number] [place] [address] [place] Urea nitrogen [Mass/Vol] 11 mg/dL Normal 9-24 [facility] Comment on above: Order Comment: Speci men Type: BLOOD SPECIMENOrdering Facility: [facility] Address: [address] [place] [place] [address] Performed By: #### 2 4321-2, 32883-0 ####[facility] [id number] [place] [address] [place] CNOVon 04-30-2023 CNOV Normal [facility] NT-proBNP SerPl-mCncon 04-30 Natriuretic peptide.B prohormone N-Terminal [Mass/Vol] 4754 pg/mL High <125 [facility] Comment on above: Order Comment: Speci men Type: BLOOD SPECIMENOrdering Facility: [facility] Address: [address] [place] [address] Performed By: #### 2 4321-2, 27685-2 ####[facility] LABIA [id number] [place] [address] [place] CYTOMEGALOVIRUS (CMV) DNA, Q UANTITATIVE PCR, PLASMAon 04-28-2023 CMV DNA DEVYN+probe Qn (P) Not detected Normal Not Detected [facility] Comment on above: Order Comment: Speci men Type: BLOOD SPECIMENOrdering Facility: [facility] Address: , , Performed By: #### C MVQNT ####[facility] LABCLIA [id number] [address] [place] CMV DNA DEVYN+probe Qn (P) Not detected Normal Not Detected [facility] Comment on above: Order Comment: Rasta kennedy Type: BLOOD SPECIMENOrdering Facility: [facility] Address: , , Performed By: #### C MVQNT ####[facility] LABCLIA [id number] [address] [place] Tacrolimus Bld-mCncon 2022 Tacrolimus (Bld) [Mass/Vol] 8.3 ng/mL Normal 5.0-20.0 [facility] Comment on above: Order Comment: Rasta kennedy Type: BLOOD SPECIMENOrdering Facility: [facility] Address: , , Result Comment: Jennifer vidualized target levels for a given patient will depend on many factors (including the type of organ transplant, time since transplantation, concurrent medications, and other clinical factors), and should be assessed by those health care providers experienced in the management of immunosuppression. Reference ranges and high/low indicator flags are provided as general guidelines only. The treating physician must determine appropriate target levels/dosing based on the specific clinical situation. Test performed by chemiluminescent immunoassay using Dickson Alinity i. Performed By: #### 1 1253-2 ####[facility] LABCLIA [id number] [address] [place] Tacrolimus (Bld) [Mass/Vol] 6.0 ng/mL Normal 5.0-20.0 [facility] Comment on above: Order Comment: Rasta kennedy Type: BLOOD SPECIMENOrdering Facility: [facility] Address: , , Result Comment: Jennifer vidualized target levels for a given patient will depend on many factors (including the type of organ transplant, time since transplantation, concurrent medications, and other clinical factors), and should be assessed by those health care providers experienced in the management of immunosuppression. Reference ranges and high/low indicator flags are provided as general guidelines only. The treating physician must determine appropriate target levels/dosing based on the specific clinical situation. Test performed by chemiluminescent immunoassay using Dickson Alinity i. Performed By: #### 1 1253-2 ####[facility] LABCLIA [id number] [place] [address] [place] CNOVon 04-22-2023 CNOV Normal [facility] CYTOMEGALOVIRUS (CMV) DNA, Q UANTITATIVE PCR, PLASMAon 04-20-2023 CMV DNA DEVYN+probe Qn (P) Not detected Normal Not Detected [facility] Comment on above: Order Comment: Rasta kennedy Type: BLOOD SPECIMENOrdering Facility: [facility] Address: , , Performed By: #### C MVQNT ####[facility] LABCLIA [id number] [place] [address] [place] CMV DNA DEVYN+probe Qn (P) Not detected Normal Not Detected [facility] Comment on above: Order Comment: Rasta kennedy Type: BLOOD SPECIMENOrdering Facility: [facility] Address: , , Performed By: #### C MVQNT ####[facility] LABIA [id number] [place] [address] [place] Tacrolimus Bld-ncon 2022 Tacrolimus (Bld) [Mass/Vol] 5.2 ng/mL Normal 5.0-20.0 [facility] Comment on above: Order Comment: Rasta kennedy Type: BLOOD SPECIMENOrdering Facility: [facility] Address: , , Result Comment: Jennifer vidualized target levels for a given patient will depend on many factors (including the type of organ transplant, time since transplantation, concurrent medications, and other clinical factors), and should be assessed by those health care providers experienced in the management of immunosuppression. Reference ranges and high/low indicator flags are provided as general guidelines only. The treating physician must determine appropriate target levels/dosing based on the specific clinical situation. Test performed by chemiluminescent immunoassay using Dickson Alinity i. Performed By: #### 1 1253-2 ####[facility] LABCLIA [id number] [place] [address] [place] Tacrolimus (Bld) [Mass/Vol] 2.7 ng/mL Low 5.0-20.0 [facility] Comment on above: Order Comment: Rasta kennedy Type: BLOOD SPECIMENOrdering Facility: [facility] Address: , , Result Comment: Jennifer vidualized target levels for a given patient will depend on many factors (including the type of organ transplant, time since transplantation, concurrent medications, and other clinical factors), and should be assessed by those health care providers experienced in the management of immunosuppression. Reference ranges and high/low indicator flags are provided as general guidelines only. The treating physician must determine appropriate target levels/dosing based on the specific clinical situation. Test performed by chemiluminescent immunoassay using SWYF Alinity i. Performed By: #### 1 1253-2 ####[facility] LABCLIA [id number] [place] [address] [place] CNPNon 04-17-2023 CNPN Normal [facility] CNPNon 04-16-2023 CNPN Normal [facility] CBC W Auto Differential pane l (Bld)on 04-15-2023 Anisocytosis Ql (Bld) Present Normal [facility] Comment on above: Order Comment: Rasta kennedy Type: BLOOD SPECIMENOrdering Facility: [facility] Address: [address] [place] [address] Performed By: #### 5 7021-8 ####[facility] LABIA [id number] [place] [address] [place] Basophils (Bld) [#/Vol] 0.27 10*3/uL High <0.11 [facility] Comment on above: Order Comment: Yuryi men Type: BLOOD SPECIMENOrdering Facility: [facility] Address: [address] [place] [address] Performed By: #### 5 7021-8 ####[facility] LABIA [id number] [address] [place] Basophils/100 WBC (Bld) 1.7 % Normal [facility] Comment on above: Order Comment: Yuryi men Type: BLOOD SPECIMENOrdering Facility: [facility] Address: [address] Performed By: #### 5 7021-8 ####[facility] LABCLIA [id number] [place] [address] [place] Differential cell count method Nom (Bld) Manual Normal [facility] Comment on above: Order Comment: Speci men Type: BLOOD SPECIMENOrdering Facility: [facility] Address: [address] [place], [place] [address] Performed By: #### 5 7021-8 ####[facility] LABCLIA [id number] [place] [address] [place] Eosinophils (Bld) [#/Vol] 1.98 10*3/uL High <0.46 [facility] Comment on above: Order Comment: Speci men Type: BLOOD SPECIMENOrdering Facility: [facility] Address: [address] [place], [place] [address] Performed By: #### 5 7021-8 ####[facility] LABCLIA [id number] [place] [address] [place] Eosinophils/100 WBC (Bld) 12.7 % Normal [facility] Comment on above: Order Comment: Speci men Type: BLOOD SPECIMENOrdering Facility: [facility] Address: [address] [place], [place] [address] Performed By: #### 5 7021-8 ####[facility] LABCLIA [id number] [place] [address] [place] Erythrocyte distribution width (RBC) [Ratio] 18.6 % High 11.5-15.0 [facility] Comment on above: Order Comment: Speci men Type: BLOOD SPECIMENOrdering Facility: [facility] Address: [address] [place], [place] [address] Performed By: #### 5 7021-8 ####[facility] LABCLIA [id number] [place] [address] [place] Hematocrit (Bld) [Volume fraction] 32.5 % Low 39.0-51.0 [facility] Comment on above: Order Comment: Speci men Type: BLOOD SPECIMENOrdering Facility: [facility] Address: [address] [place], [place] [address] Performed By: #### 5 7021-8 ####[facility] LABCLIA [id number] [place] [address] [place] Hemoglobin (Bld) [Mass/Vol] 10.9 g/dL Low 13.0-17.0 [facility] Comment on above: Order Comment: Speci men Type: BLOOD SPECIMENOrdering Facility: [facility] Address: [address] [place] [address] Performed By: #### 5 7021-8 ####[facility] LABCLIA [id number] [place] [address] [place] Lymphocytes (Bld) [#/Vol] 2.78 10*3/uL Normal 1.00-4.00 [facility] Comment on above: Order Comment: Speci men Type: BLOOD SPECIMENOrdering Facility: [facility] Address: [address] [place], [place] [address] Performed By: #### 5 7021-8 ####[facility] LABIA [id number] [place] [address] [place] Lymphocytes/100 WBC (Bld) 17.8 % Normal [facility] Comment on above: Order Comment: Speci men Type: BLOOD SPECIMENOrdering Facility: [facility] Address: [address] [place], [place] [address] Performed By: #### 5 7021-8 ####[facility] LABCLIA [id number] [place] [address] [place] MCH (RBC) [Entitic mass] 34.6 pg High 26.0-34.0 [facility] Comment on above: Order Comment: Speci men Type: BLOOD SPECIMENOrdering Facility: [facility] Address: [address] Performed By: #### 5 7021-8 ####[facility] LABCLIA [id number] [place] [address] [place] MCHC (RBC) [Mass/Vol] 33.5 g/dL Normal 30.5-36.0 [facility] Comment on above: Order Comment: Speci men Type: BLOOD SPECIMENOrdering Facility: [facility] Address: [address] Performed By: #### 5 7021-8 ####[facility] LABCLIA [id number] [place] [address] [place] MCV (RBC) [Entitic vol] 103.2 fL High 80.0-100.0 [facility] Comment on above: Order Comment: Speci men Type: BLOOD SPECIMENOrdering Facility: [facility] Address: [address] Performed By: #### 5 7021-8 ####[facility] LABCLIA [id number] [place] [address] [place] Monocytes (Bld) [#/Vol] 0.92 10*3/uL High <0.87 [facility] Comment on above: Order Comment: Speci men Type: BLOOD SPECIMENOrdering Facility: [facility] Address: [address] Performed By: #### 5 7021-8 ####[facility] LABCLIA [id number] [place] [address] [place] Monocytes/100 WBC (Bld) 5.9 % Normal [facility] Comment on above: Order Comment: Speci men Type: BLOOD SPECIMENOrdering Facility: [facility] Address: [address] Performed By: #### 5 7021-8 ####[facility] LABCLIA [id number] [place] [address] [place] MYELO% 1.7 % Normal [facility] Comment on above: Order Comment: Speci men Type: BLOOD SPECIMENOrdering Facility: [facility] Address: [address] [place] [address] Performed By: #### 5 7021-8 ####[facility] LABCLIA [id number] [place] [address] [place] Neutrophils (Bld) [#/Vol] 9.40 10*3/uL High 1.45-7.50 [facility] Comment on above: Order Comment: Speci men Type: BLOOD SPECIMENOrdering Facility: [facility] Address: [address] [place] [address] Performed By: #### 5 7021-8 ####[facility] LABCLIA [id number] [place] [address] [place] Neutrophils/100 WBC (Bld) 60.2 % Normal [facility] Comment on above: Order Comment: Speci men Type: BLOOD SPECIMENOrdering Facility: [facility] Address: [address] [place], [place] [address] Performed By: #### 5 7021-8 ####[facility] LABCLIA [id number] [place] [address] [place] Nucleated RBC (Bld) [#/Vol] 10*3/uL Normal <0.01 [facility] Comment on above: Order Comment: Speci men Type: BLOOD SPECIMENOrdering Facility: [facility] Address: [address] [place], [place] [address] Performed By: #### 5 7021-8 ####[facility] LABCLIA [id number] [place] [address] [place] Nucleated RBC/100 WBC (Bld) [Ratio] 0.0 /100 WBC Normal [facility] Comment on above: Order Comment: Speci men Type: BLOOD SPECIMENOrdering Facility: [facility] Address: [address] [place] [address] Performed By: #### 5 7021-8 ####[facility] LABCLIA [id number] [place] [address] [place] Ovalocytes LM Ql (Bld) Few Normal [facility] Comment on above: Order Comment: Speci men Type: BLOOD SPECIMENOrdering Facility: [facility] Address: [address] [place] [address] Performed By: #### 5 7021-8 ####[facility] [facility] [id number] [place] [address] [place] Platelet mean volume (Bld) [Entitic vol] 10.1 fL Normal 9.0-12.7 [facility] Comment on above: Order Comment: Speci men Type: BLOOD SPECIMENOrdering Facility: [facility] Address: [address] [place] [address] Performed By: #### 5 7021-8 ####[facility] [id number] [place] [address] [place] Platelets (Bld) [#/Vol] 153 10*3/uL Normal 150-400 [facility] Comment on above: Order Comment: Speci men Type: BLOOD SPECIMENOrdering Facility: [facility] Address: [address] [place] [address] Performed By: #### 5 7021-8 ####[facility]CLIA [id number] [place] [address] [place] Platelets Estimate (Bld) [#/Vol] Adequate Normal [facility] Comment on above: Order Comment: Speci men Type: BLOOD SPECIMENOrdering Facility: [facility] Address: [address] [place] [address] Performed By: #### 5 7021-8 ####[facility]CL[facility] [id number] [place] [address] [place] Polychromasia LM Ql (Bld) Slight Normal [facility] Comment on above: Order Comment: Speci men Type: BLOOD SPECIMENOrdering Facility: [facility] Address: [address] [place], [place] [address] Performed By: #### 5 7021-8 ####[facility]CL[facility] [id number] [place] [address] [place] RBC (Bld) [#/Vol] 3.15 10*6/uL Low 4.20-6.00 [facility] Comment on above: Order Comment: Speci men Type: BLOOD SPECIMENOrdering Facility: [facility] Address: [address] [place] [address] Performed By: #### 5 7021-8 ####[facility] [id number] [place] [address] [place] RED CELL MORPH Reviewed: see result s of individual morphologies Normal [facility] Comment on above: Order Comment: Speci men Type: BLOOD SPECIMENOrdering Facility: [facility] Address: [address] [place], [place] [address] Performed By: #### 5 7021-8 ####[facility] [id number] [place] [address] [place] WBC (Bld) [#/Vol] 15.62 10*3/uL High 3.70-11.00 [facility] Comment on above: Order Comment: Speci men Type: BLOOD SPECIMENOrdering Facility: [facility] Address: [address] [place], [place] [address] Performed By: #### 5 7021-8 ####[facility] [id number] [place] [address] [place] WBC Left Shift Ql (Bld) Present Normal [facility] Comment on above: Order Comment: Speci men Type: BLOOD SPECIMENOrdering Facility: [facility] Address: [address] [place] [id number] Performed By: #### 5 7021-8 ####[facility] [id number] [place] [address] [place] CNOVon 04-15-2023 CNOV Normal [facility] metabolic 2000 panelon 04-15-2023 Albumin [Mass/Vol] 2.7 g/dL Low 3.9-4.9 [facility] Comment on above: Order Comment: Speci men Type: BLOOD SPECIMENOrdering Facility: [facility] Address: [address] [place] [address] Performed By: #### 2 4323-8, 2324-2, , 2776- ####[facility] [id number] [place] [address] [place] ALP [Catalytic activity/Vol] 92 U/L Normal 38-113 [facility] Comment on above: Order Comment: Speci men Type: BLOOD SPECIMENOrdering Facility: [facility] Address: [address] [place] [address] Performed By: #### 2 4323-8, 4-2, , 2776- ####[facility] [id number] [place] [address] [place] ALT [Catalytic activity/Vol] 39 U/L Normal 10-54 [facility] Comment on above: Order Comment: Speci men Type: BLOOD SPECIMENOrdering Facility: [facility] Address: [address] [place] [id number] Performed By: #### 2 4323-8, 4-2, , 2776- ####[facility] [id number] [place] [address] [place] Anion gap [Moles/Vol] 6 mmol/L Low 9-18 [facility] Comment on above: Order Comment: Speci men Type: BLOOD SPECIMENOrdering Facility: [facility] Address: [address] [place], [place] [address] Performed By: #### 2 4323-8, 4-2, , 2776-08 ####[facility] [id number] [place] [address] [place] AST [Catalytic activity/Vol] 28 U/L Normal 14-40 [facility] Comment on above: Order Comment: Speci men Type: BLOOD SPECIMENOrdering Facility: [facility] Address: [address] [place] [address] Performed By: #### 2 4323-8, 4-2, , 2776-08 ####[facility] [id number] [place] [address] [place] Bilirubin [Mass/Vol] 0.6 mg/dL Normal 0.2-1.3 [facility] Comment on above: Order Comment: Speci men Type: BLOOD SPECIMENOrdering Facility: [facility] Address: [address] [place] [address] Performed By: #### 2 4323-8, 2324-2, , 2776-08 ####[facility] [id number] [place] [address] [place] Calcium [Mass/Vol] 8.3 mg/dL Low 8.5-10.2 [facility] Comment on above: Order Comment: Speci men Type: BLOOD SPECIMENOrdering Facility: [facility] Address: [address] [place] [place] [address] Performed By: #### 2 4323-8, 2324-2, , 2776-08 ####[facility] [id number] [place] [address] [place] Chloride [Moles/Vol] 98 mmol/L Normal 97-105 [facility] Comment on above: Order Comment: Speci men Type: BLOOD SPECIMENOrdering Facility: [facility] Address: [address] [place] [id number] Performed By: #### 2 4323-8, 2324-2, , 2776- ####[facility] [id number] [place] [address] [place] CO2 [Moles/Vol] 27 mmol/L Normal 22-30 [facility] Comment on above: Order Comment: Speci men Type: BLOOD SPECIMENOrdering Facility: [facility] Address: [address] [place] [place] [address] Performed By: #### 2 4323-8, 2324-2, , 2776-08 ####[facility] [id number] [place] [address] [place] Creatinine [Mass/Vol] 1.21 mg/dL Normal 0.73-1.22 [facility] Comment on above: Order Comment: Speci men Type: BLOOD SPECIMENOrdering Facility: [facility] Address: [address] [place] [address] Performed By: #### 2 4323-8, 2324-2, , 2776-08 ####[facility] [id number] [place] [address] [place] Creatinine and Glomerular filtration rate.predicted panel (S/P/Bld) 77 mL/min/1.73m??? Normal >=60 [facility] Comment on above: Order Comment: Speci men Type: BLOOD SPECIMENOrdering Facility: [facility] Address: [address] [place] [address] Result Comment: Karma mated Glomerular Filtration Rate (eGFR) is calculated using the 2020 CKD-EPI creatinine equation. This equation utilizes serum creatinine, sex, and age as parameters. The creatinine assay has traceable calibration to isotope dilution-mass spectrometry. Refer to KDIGO guidelines for clinical interpretation. In patients with unstable renal function, e.g. those with acute kidney injury, the eGFR may not accurately reflect actual GFR. Performed By: #### 2 4323-8, 4-2, , 2776-08 ####[facility]CL[facility] [id number] [address] [address] [place] Glucose [Mass/Vol] 88 mg/dL Normal 74-99 [facility] Comment on above: Order Comment: Rasta kennedy Type: BLOOD SPECIMENOrdering Facility: [facility] Address: [address] [place] [address] Result Comment: The [place] [employer] (ADA) provides guidance for cutoff values for fasting glucose and random glucose. The ADA defines fasting as no caloric intake for at least 8 hours. Fasting plasma glucose results between 100 to 125 mg/dL indicate increased risk for diabetes (prediabetes).Fasting plasma glucose results greater than or equal to 126 mg/dL meet the criteria for diagnosis of diabetes. In the absence of unequivocal hyperglycemia, results should be confirmed by repeat testing. In a patient with classic symptoms of hyperglycemia or hyperglycemic crisis, random plasma glucose results greater than or equal to 200 mg/dL meet the criteria for diagnosis of diabetes.Reference: Standards of Medical Care in Diabetes 2016, [place] [employer]. Diabetes Care. 2016.39(Suppl 1). Performed By: #### 2 4323-8, 2323-2, , 2776-08 ####[facility] [id number] [address] [address] [place] Potassium [Moles/Vol] 4.8 mmol/L Normal 3.7-5.1 [facility] Comment on above: Order Comment: Rasta kennedy Type: BLOOD SPECIMENOrdering Facility: [facility] Address: [address] [place] [address] Performed By: #### 2 4323-8, 2323-2, , 2776-08 ####[facility]CLIA [id number] [address] [address] [place] Protein [Mass/Vol] 4.5 g/dL Low 6.3-8.0 [facility] Comment on above: Order Comment: Speci men Type: BLOOD SPECIMENOrdering Facility: [facility] Address: [address] [place] [address] Performed By: #### 2 4323-8, 2324-2, 64362-5, 7- ####[facility] [id number] [place] [address] [place] Sodium [Moles/Vol] 131 mmol/L Low 136-144 [facility] Comment on above: Order Comment: Speci men Type: BLOOD SPECIMENOrdering Facility: [facility] Address: [address] [place] [address] Performed By: #### 2 4323-8, 4-2, , 2776- ####[facility] [id number] [place] [address] [place] Urea nitrogen [Mass/Vol] 17 mg/dL Normal 9-24 [facility] Comment on above: Order Comment: Speci men Type: BLOOD SPECIMENOrdering Facility: [facility] Address: [address] [place] [address] Performed By: #### 2 4323-8, 4-2, , 2776- ####[facility] [id number] [place] [address] [place] GGT SerPl-cCncon 04-15-2023 Gamma glutamyl transferase [Catalytic activity/Vol] 184 U/L High 10-70 [facility] Comment on above: Order Comment: Speci men Type: BLOOD SPECIMENOrdering Facility: [facility] Address: [address] [place] [address] Performed By: #### 2 4323-8, 4-2, , 2776- ####[facility] [id number] [place] [address] [place] Magnesium SerPl-mCncon 04-15 Magnesium [Mass/Vol] 1.8 mg/dL Normal 1.7-2.3 [facility] Comment on above: Order Comment: Speci men Type: BLOOD SPECIMENOrdering Facility: [facility] Address: [address] [place] [address] Performed By: #### 2 4323-8, 2324-2, 49116-9, 7-1 ####[facility] [id number] [place] [address] [place] Phosphate SerPl-ncon 04-15 Phosphate [Mass/Vol] 3.5 mg/dL Normal 2.7-4.8 [facility] Comment on above: Order Comment: Speci men Type: BLOOD SPECIMENOrdering Facility: [facility] Address: [address] [place] [address] Performed By: #### 2 4323-8, 2324-2, , 2776- ####[facility] [id number] [place] [address] [place] Tacrolimus Bld-ncon 2022 Tacrolimus (Bld) [Mass/Vol] 6.2 ng/mL Normal 5.0-20.0 [facility] Comment on above: Order Comment: Speci brent Type: BLOOD SPECIMENOrdering Facility: [facility] Address: [address] [place] [address] Result Comment: Jennifer vidualized target levels for a given patient will depend on many factors (including the type of organ transplant, time since transplantation, concurrent medications, and other clinical factors), and should be assessed by those health care providers experienced in the management of immunosuppression. Reference ranges and high/low indicator flags are provided as general guidelines only. The treating physician must determine appropriate target levels/dosing based on the specific clinical situation. Test performed by chemiluminescent immunoassay using SWYF Alinity i. Performed By: #### 1 1253-2 ####[facility] [id number] [place] [address] [place] CNPNon 04-14-2023 CNPN Normal [facility] CASE MANAGEMon 04-13-2023 CASE MANAGEM Normal [facility] CBC W Auto Differential pane l (Bld)on 04-13-2023 Anisocytosis Ql (Bld) Present Normal [facility] Comment on above: Order Comment: Speci men Type: BLOOD SPECIMENOrdering Facility: [facility] Address: [address] [place] [address] Performed By: #### 5 7021-8 ####[facility] [id number] [place] [address] [place] Basophils (Bld) [#/Vol] 0.18 10*3/uL High <0.11 [facility] Comment on above: Order Comment: Speci men Type: BLOOD SPECIMENOrdering Facility: [facility] Address: [address] [place] [address] Performed By: #### 5 7021-8 ####[facility] [id number] [place] [address] [place] Basophils/100 WBC (Bld) 0.9 % Normal [facility] Comment on above: Order Comment: Speci men Type: BLOOD SPECIMENOrdering Facility: [facility] Address: [address] [place] [address] Performed By: #### 5 7021-8 ####[facility]CL[facility] [id number] [place] [address] [place] Differential cell count method Nom (Bld) Manual Normal [facility] Comment on above: Order Comment: Speci men Type: BLOOD SPECIMENOrdering Facility: [facility] Address: [address] [place] [address] Performed By: #### 5 7021-8 ####[facility] [id number] [place] [address] [place] Eosinophils (Bld) [#/Vol] 2.71 10*3/uL High <0.46 [facility] Comment on above: Order Comment: Speci men Type: BLOOD SPECIMENOrdering Facility: [facility] Address: [address] Performed By: #### 5 7021-8 ####[facility]CLIA [id number] [place] [address] [place] Eosinophils/100 WBC (Bld) 13.2 % Normal [facility] Comment on above: Order Comment: Speci men Type: BLOOD SPECIMENOrdering Facility: [facility] Address: [address] [place], [place] [address] Performed By: #### 5 7021-8 ####[facility] [id number] [place] [address] [place] Erythrocyte distribution width (RBC) [Ratio] 17.4 % High 11.5-15.0 [facility] Comment on above: Order Comment: Speci men Type: BLOOD SPECIMENOrdering Facility: [facility] Address: [address] [place], [place] [address] Performed By: #### 5 7021-8 ####[facility] [id number] [place] [address] [place] Hematocrit (Bld) [Volume fraction] 32.9 % Low 39.0-51.0 [facility] Comment on above: Order Comment: Speci men Type: BLOOD SPECIMENOrdering Facility: [facility] Address: [address] Performed By: #### 5 7021-8 ####[facility] [id number] [place] [address] [place] Hemoglobin (Bld) [Mass/Vol] 11.8 g/dL Low 13.0-17.0 [facility] Comment on above: Order Comment: Speci men Type: BLOOD SPECIMENOrdering Facility: [facility] Address: [address] Performed By: #### 5 7021-8 ####[facility]CL[facility] [id number] [place] [address] [place] Lymphocytes (Bld) [#/Vol] 2.71 10*3/uL Normal 1.00-4.00 [facility] Comment on above: Order Comment: Speci men Type: BLOOD SPECIMENOrdering Facility: [facility] Address: [address] Performed By: #### 5 7021-8 ####[facility]CL[facility] [id number] [address] [place] Lymphocytes/100 WBC (Bld) 13.2 % Normal [facility] Comment on above: Order Comment: Speci men Type: BLOOD SPECIMENOrdering Facility: [facility] Address: [address] Performed By: #### 5 7021-8 ####[facility]CLIA [id number] [place] [address] [place] MCH (RBC) [Entitic mass] 34.5 pg High 26.0-34.0 [facility] Comment on above: Order Comment: Speci men Type: BLOOD SPECIMENOrdering Facility: [facility] Address: [address] Performed By: #### 5 7021-8 ####[facility] [id number] [place] [address] [place] MCHC (RBC) [Mass/Vol] 35.9 g/dL Normal 30.5-36.0 [facility] Comment on above: Order Comment: Speci men Type: BLOOD SPECIMENOrdering Facility: [facility] Address: [address] Performed By: #### 5 7021-8 ####[facility] [id number] [place] [address] [place] MCV (RBC) [Entitic vol] 96.2 fL Normal 80.0-100.0 [facility] Comment on above: Order Comment: Speci men Type: BLOOD SPECIMENOrdering Facility: [facility] Address: [address] [place] [address] Performed By: #### 5 7021-8 ####[facility] [id number] [place] [address] [place] Metamyelocytes/100 WBC (Bld) 0.9 % Normal [facility] Comment on above: Order Comment: Speci men Type: BLOOD SPECIMENOrdering Facility: [facility] Address: [address] [place] [address] Performed By: #### 5 7021-8 ####[facility] [id number] [place] [address] [place] Monocytes (Bld) [#/Vol] 1.44 10*3/uL High <0.87 [facility] Comment on above: Order Comment: Speci men Type: BLOOD SPECIMENOrdering Facility: [facility] Address: [address] [place], [place] [address] Performed By: #### 5 7021-8 ####[facility] [id number] [place] [address] [place] Monocytes/100 WBC (Bld) 7.0 % Normal [facility] Comment on above: Order Comment: Speci men Type: BLOOD SPECIMENOrdering Facility: [facility] Address: [address] [place], [place] [address] Performed By: #### 5 7021-8 ####[facility] [id number] [place] [address] [place] Neutrophils (Bld) [#/Vol] 13.30 10*3/uL High 1.45-7.50 [facility] Comment on above: Order Comment: Speci men Type: BLOOD SPECIMENOrdering Facility: [facility] Address: [address] Performed By: #### 5 7021-8 ####[facility] [id number] [address] [place] Neutrophils/100 WBC (Bld) 64.8 % Normal [facility] Comment on above: Order Comment: Speci men Type: BLOOD SPECIMENOrdering Facility: [facility] Address: [address] [place], [place] [address] Performed By: #### 5 7021-8 ####[facility] [id number] [place] [address] [place] Nucleated RBC (Bld) [#/Vol] 10*3/uL Normal <0.01 [facility] Comment on above: Order Comment: Speci men Type: BLOOD SPECIMENOrdering Facility: [facility] Address: [address] [place], [place] [address] Performed By: #### 5 7021-8 ####[facility] [id number] [address] [place] Nucleated RBC/100 WBC (Bld) [Ratio] 0.0 /100 WBC Normal [facility] Comment on above: Order Comment: Speci men Type: BLOOD SPECIMENOrdering Facility: [facility] Address: [address] [place], [place] [address] Performed By: #### 5 7021-8 ####[facility] [id number] [place] [address] [place] Ovalocytes LM Ql (Bld) Few Normal [facility] Comment on above: Order Comment: Speci men Type: BLOOD SPECIMENOrdering Facility: [facility] Address: [address] [place], [place] [address] Performed By: #### 5 7021-8 ####[facility] [id number] [place] [address] [place] Platelet mean volume (Bld) [Entitic vol] 9.4 fL Normal 9.0-12.7 [facility] Comment on above: Order Comment: Speci men Type: BLOOD SPECIMENOrdering Facility: [facility] Address: [address] [place] [address] Performed By: #### 5 7021-8 ####[facility] [id number] [place] [address] [place] Platelets (Bld) [#/Vol] 116 10*3/uL Low 150-400 [facility] Comment on above: Order Comment: Speci men Type: BLOOD SPECIMENOrdering Facility: [facility] Address: [address] [place] [address] Performed By: #### 5 7021-8 ####[facility] [id number] [place] [address] [place] Platelets Estimate (Bld) [#/Vol] Decreased Normal [facility] Comment on above: Order Comment: Speci men Type: BLOOD SPECIMENOrdering Facility: [facility] Address: [address] [place] [address] Performed By: #### 5 7021-8 ####[facility] [id number] [place] [address] [place] Polychromasia LM Ql (Bld) Slight Normal [facility] Comment on above: Order Comment: Speci men Type: BLOOD SPECIMENOrdering Facility: [facility] Address: [address] [place], [place] [address] Performed By: #### 5 7021-8 ####[facility] [id number] [place] [address] [place] RBC (Bld) [#/Vol] 3.42 10*6/uL Low 4.20-6.00 [facility] Comment on above: Order Comment: Speci men Type: BLOOD SPECIMENOrdering Facility: [facility] Address: [address] [place] [address] Performed By: #### 5 7021-8 ####[facility] [facility] [id number] [place] [address] [place] RED CELL MORPH Reviewed: see result s of individual morphologies Normal [facility] Comment on above: Order Comment: Speci men Type: BLOOD SPECIMENOrdering Facility: [facility] Address: [address] [address] Performed By: #### 5 7021-8 ####[facility]IA [id number] [place] [address] [place] WBC (Bld) [#/Vol] 20.53 10*3/uL High 3.70-11.00 [facility] Comment on above: Order Comment: Speci men Type: BLOOD SPECIMENOrdering Facility: [facility] Address: [address] [place] [address] Performed By: #### 5 7021-8 ####[facility] [id number] [place] [address] [place] WBC Left Shift Ql (Bld) Present Normal [facility] Comment on above: Order Comment: Speci men Type: BLOOD SPECIMENOrdering Facility: [facility] Address: [address] [place] [address] Performed By: #### 5 7021-8 ####[facility] [id number] [place] [address] [place] CMV DNA DETECTION AND QUANTo n 04-13-2023 CMV DNA DEVYN+probe Qn (P) Not detected Normal Not Detected [facility] Comment on above: Order Comment: Speci men Type: BLOOD SPECIMENOrdering Facility: [facility] Address: [address] [place] [address] Performed By: #### C MVQNT ####[facility] [id number] [place] [address] [place] CNCOon 04-13-2023 CNCO Letter Text Letter Text Normal [facility] CNDSon 04-13-2023 CNDS Normal [facility] CONSULT PROGon 04-13-2023 CONSULT PROG Normal [facility] Comprehensive metabolic 2000 panelon 04-13-2023 Albumin [Mass/Vol] 2.5 g/dL Low 3.9-4.9 [facility] Comment on above: Order Comment: Speci men Type: BLOOD SPECIMENOrdering Facility: [facility] Address: [address] [address] Performed By: #### 2 4323-8, , 2776-08 ####[facility] [id number] [place] [address] [place] ALP [Catalytic activity/Vol] 102 U/L Normal 38-113 [facility] Comment on above: Order Comment: Speci men Type: BLOOD SPECIMENOrdering Facility: [facility] Address: [address] [place] [address] Performed By: #### 2 4323-8, , 2776-08 ####[facility] [id number] [address] [place] ALT [Catalytic activity/Vol] 44 U/L Normal 10-54 [facility] Comment on above: Order Comment: Speci men Type: BLOOD SPECIMENOrdering Facility: [facility] Address: [address] [id number] Performed By: #### 2 4323-8, , 2776-08 ####[facility] [id number] [place] [address] [place] Anion gap [Moles/Vol] 7 mmol/L Low 9-18 [facility] Comment on above: Order Comment: Speci men Type: BLOOD SPECIMENOrdering Facility: [facility] Address: [address] Performed By: #### 2 4323-8, 95713-0, 2776-08 ####[facility] [id number] [place] [address] [place] AST [Catalytic activity/Vol] 25 U/L Normal 14-40 [facility] Comment on above: Order Comment: Speci men Type: BLOOD SPECIMENOrdering Facility: [facility] Address: [address] Performed By: #### 2 4323-8, 66158-6, 2776- ####[facility]IA [id number] [place] [address] [place] Bilirubin [Mass/Vol] 0.7 mg/dL Normal 0.2-1.3 [facility] Comment on above: Order Comment: Speci men Type: BLOOD SPECIMENOrdering Facility: [facility] Address: [address] [address] Performed By: #### 2 4323-8, , 2776-08 ####[facility]IA [id number] [place] [address] [place] Calcium [Mass/Vol] 8.1 mg/dL Low 8.5-10.2 [facility] Comment on above: Order Comment: Speci men Type: BLOOD SPECIMENOrdering Facility: [facility] Address: [address] Performed By: #### 2 4323-8, 61158-2, 2776-08 ####[facility]IA [id number] [place] [address] [place] Chloride [Moles/Vol] 95 mmol/L Low 97-105 [facility] Comment on above: Order Comment: Speci men Type: BLOOD SPECIMENOrdering Facility: [facility] Address: [address] Performed By: #### 2 4323-8, , 2776-08 ####[facility] [id number] [place] [address] [place] CO2 [Moles/Vol] 26 mmol/L Normal 22-30 [facility] Comment on above: Order Comment: Speci men Type: BLOOD SPECIMENOrdering Facility: [facility] Address: [address] [place] [address] Performed By: #### 2 4323-8, , 2776-08 ####[facility]IA [id number] [place] [address] [place] Creatinine [Mass/Vol] 1.40 mg/dL High 0.73-1.22 [facility] Comment on above: Order Comment: Speci men Type: BLOOD SPECIMENOrdering Facility: [facility] Address: [address] [place] [address] Performed By: #### 2 4323-8, , 2776-08 ####[facility] LABIA [id number] [address] [place] Creatinine and Glomerular filtration rate.predicted panel (S/P/Bld) 65 mL/min/1.73m??? Normal >=60 [facility] Comment on above: Order Comment: Speci men Type: BLOOD SPECIMENOrdering Facility: [facility] Address: [address] [place] [address] Result Comment: Karma mated Glomerular Filtration Rate (eGFR) is calculated using the 2020 CKD-EPI creatinine equation. This equation utilizes serum creatinine, sex, and age as parameters. The creatinine assay has traceable calibration to isotope dilution-mass spectrometry. Refer to KDIGO guidelines for clinical interpretation. In patients with unstable renal function, e.g. those with acute kidney injury, the eGFR may not accurately reflect actual GFR. Performed By: #### 2 4323-8, 75263-9, 2776-08 ####[facility]CL[facility] [id number] [place] [address] [place] Glucose [Mass/Vol] 93 mg/dL Normal 74-99 [facility] Comment on above: Order Comment: Speci men Type: BLOOD SPECIMENOrdering Facility: [facility] Address: [address] [place] [address] Result Comment: The [place] [employer] (ADA) provides guidance for cutoff values for fasting glucose and random glucose. The ADA defines fasting as no caloric intake for at least 8 hours. Fasting plasma glucose results between 100 to 125 mg/dL indicate increased risk for diabetes (prediabetes).Fasting plasma glucose results greater than or equal to 126 mg/dL meet the criteria for diagnosis of diabetes. In the absence of unequivocal hyperglycemia, results should be confirmed by repeat testing. In a patient with classic symptoms of hyperglycemia or hyperglycemic crisis, random plasma glucose results greater than or equal to 200 mg/dL meet the criteria for diagnosis of diabetes.Reference: Standards of Medical Care in Diabetes 2016, [place] [employer]. Diabetes Care. 2016.39(Suppl 1). Performed By: #### 2 4323-8, , 2776-08 ####[facility]IA [id number] [place] [address] [place] Potassium [Moles/Vol] 5.0 mmol/L Normal 3.7-5.1 [facility] Comment on above: Order Comment: Speci men Type: BLOOD SPECIMENOrdering Facility: [facility] Address: [address] [place], [place] [address] Performed By: #### 2 4323-8, , 2776-08 ####[facility] LABIA [id number] [address] [address] [place] Protein [Mass/Vol] 4.1 g/dL Low 6.3-8.0 [facility] Comment on above: Order Comment: Speci men Type: BLOOD SPECIMENOrdering Facility: [facility] Address: [address] [place] [address] Performed By: #### 2 4323-8, , 2776-08 ####[facility] LABIA [id number] [address] [address] [place] Sodium [Moles/Vol] 128 mmol/L Low 136-144 [facility] Comment on above: Order Comment: Speci men Type: BLOOD SPECIMENOrdering Facility: [facility] Address: [address] [place] [address] Performed By: #### 2 4323-8, , 2776-08 ####[facility] LABIA [id number] [address] [address] [place] Urea nitrogen [Mass/Vol] 28 mg/dL High 9-24 [facility] Comment on above: Order Comment: Speci men Type: BLOOD SPECIMENOrdering Facility: [facility] Address: [address] [place] [address] Performed By: #### 2 4323-8, , 2776-08 ####[facility] [id number] [address] [address] [place] Magnesium SerPl-mCncon 04-13 Magnesium [Mass/Vol] 2.1 mg/dL Normal 1.7-2.3 [facility] Comment on above: Order Comment: Speci men Type: BLOOD SPECIMENOrdering Facility: [facility] Address: [address] [place] [address] Performed By: #### 2 4323-8, , 2776-08 ####[facility] [id number] [address] [address] [place] NURSING PROGon 04-13-2023 NURSING PROG Normal [facility] NUTRITIONon 04-13-2023 NUTRITION Normal [facility] PT EDon 04-13-2023 PT ED Normal [facility] PT ED Normal [facility] PT ED Normal [facility] PT panel Coag (PPP)on 2022 INR Coag (PPP) [Relative time] 1.1 {INR} Normal 0.9-1.3 [facility] Comment on above: Order Comment: Rasta kennedy Type: BLOOD SPECIMENOrdering Facility: [facility] Address: [address] [id number] Result Comment: Binta min K Antagonist (VKA) Therapeutic Range: INR 2 to 3 (Target INR of 2.5)Note: For patients treated with VKA drugs, such as warfarin, the [place] [employer] 2012 Guideline recommends a therapeutic INR range of 2 to 3 (target INR of 2.5). This recommendation includes high-risk patients with antiphospholipid syndrome with previous arterial or venous thromboembolism, current-generation mechanical or bioprosthetic aortic heart valve replacement.Note: Patients with mechanical aortic valve replacement and additional risk factors for thromboembolic events (atrial fibrillation, previous thromboembolism, LV dysfunction, hypercoagulable conditions) or an older generation mechanical AVR (i.e., ball in-Cage) or any mechanical MVR should have a INR therapeutic range of 2.5 to 3.5 (target INR of 3).Robyn GH, et al. Chest 2012, 141:7S-47SNishimyumiko RA, et al. [facility] 2017, 70: 252-289 Performed By: #### 3 4528-0, 17543-0 ####[facility] [id number] [place] [address] [place] PT Coag (PPP) [Time] 11.1 s Normal 9.7-13.0 [facility] Comment on above: Order Comment: Rasta kennedy Type: BLOOD SPECIMENOrdering Facility: [facility] Address: [place] [address] Performed By: #### 3 4528-0, 31556-3 ####[facility] [id number] [place] [address] [place] Phosphate SerPl-mCncon 04-13 Phosphate [Mass/Vol] 3.2 mg/dL Normal 2.7-4.8 [facility] Comment on above: Order Comment: Rasta kennedy Type: BLOOD SPECIMENOrdering Facility: [facility] Address: [address] [place] [address] Performed By: #### 2 4323-8, 70582-0, 2777-1 ####[facility] [id number] [place] [address] [place] SOCIAL WORKon 04-13-2023 SOCIAL WORK Normal [facility] TYPE + SCREENon 04-13-2023 ABO A Normal [facility] Comment on above: Order Comment: Speci men Type: BLOOD SPECIMENOrdering Facility: [facility] Address: [address] [place] [address] Performed By: #### T SCR ####[facility] [id number] [place] [address] [place] HISTORICAL AB SCR STATUS Negative Normal [facility] Comment on above: Order Comment: Speci men Type: BLOOD SPECIMENOrdering Facility: [facility] Address: [address] [place] [address] Performed By: #### T SCR ####[facility] [id number] [place] [address] [place] Rh Nom (Bld) Positive Normal [facility] Comment on above: Order Comment: Speci men Type: BLOOD SPECIMENOrdering Facility: [facility] Address: [address] [place] [address] Performed By: #### T SCR ####[facility] [id number] [place] [address] [place] TYPE AND SCREEN EXPIRATION 04/16/2023 23:59 Normal [facility] Comment on above: Order Comment: Speci men Type: BLOOD SPECIMENOrdering Facility: [facility] Address: [address] [place] [address] Performed By: #### T SCR ####[facility] [id number] [place] [address] [place] Tacrolimus Bld-mCncon 2022 Tacrolimus (Bld) [Mass/Vol] 7.8 ng/mL Normal 5.0-20.0 [facility] Comment on above: Order Comment: Rasta kennedy Type: BLOOD SPECIMENOrdering Facility: [facility] Address: [address] [place] [address] Result Comment: Jennifer vidualized target levels for a given patient will depend on many factors (including the type of organ transplant, time since transplantation, concurrent medications, and other clinical factors), and should be assessed by those health care providers experienced in the management of immunosuppression. Reference ranges and high/low indicator flags are provided as general guidelines only. The treating physician must determine appropriate target levels/dosing based on the specific clinical situation. Test performed by chemiluminescent immunoassay using SWYF Alinity i. Performed By: #### 1 1253-2 ####[facility] [id number] [address] [place] aPTT PPPon 04-13-2023 aPTT Coag (PPP) [Time] 23.2 s Normal 23.0-32.4 [facility] Comment on above: Order Comment: Rasta kennedy Type: BLOOD SPECIMENOrdering Facility: [facility] Address: [address] [place] [address] Performed By: #### 3 4528-0, 51088-6 ####[facility] [id number] [place] [address] [place] CBC W Auto Differential pane l (Bld)on 04-12-2023 Anisocytosis Ql (Bld) Present Normal [facility] Comment on above: Order Comment: Rasta kennedy Type: BLOOD SPECIMENOrdering Facility: [facility] Address: [address] [place] [address] Performed By: #### 5 7021-8 ####[facility] [id number] [place] [address] [place] Basophils (Bld) [#/Vol] 0.00 10*3/uL Normal <0.11 [facility] Comment on above: Order Comment: Speci men Type: BLOOD SPECIMENOrdering Facility: [facility] Address: [address] Performed By: #### 5 7021-8 ####[facility] [id number] [place] [address] [place] Basophils/100 WBC (Bld) 0.0 % Normal [facility] Comment on above: Order Comment: Speci men Type: BLOOD SPECIMENOrdering Facility: [facility] Address: [address] [place], [place] [address] Performed By: #### 5 7021-8 ####[facility] [id number] [place] [address] [place] Differential cell count method Nom (Bld) Manual Normal [facility] Comment on above: Order Comment: Speci men Type: BLOOD SPECIMENOrdering Facility: [facility] Address: [address] [place], [place] [address] Performed By: #### 5 7021-8 ####[facility]CLIA [id number] [place] [address] [place] Eosinophils (Bld) [#/Vol] 3.58 10*3/uL High <0.46 [facility] Comment on above: Order Comment: Speci men Type: BLOOD SPECIMENOrdering Facility: [facility] Address: [address] [place], [place] [address] Performed By: #### 5 7021-8 ####[facility]CL[facility] [id number] [place] [address] [place] Eosinophils/100 WBC (Bld) 14.8 % Normal [facility] Comment on above: Order Comment: Speci men Type: BLOOD SPECIMENOrdering Facility: [facility] Address: [address] [place], [place] [address] Performed By: #### 5 7021-8 ####[facility] LABIA [id number] [place] [address] [place] Erythrocyte distribution width (RBC) [Ratio] 17.4 % High 11.5-15.0 [facility] Comment on above: Order Comment: Speci men Type: BLOOD SPECIMENOrdering Facility: [facility] Address: [address] [place] [address] Performed By: #### 5 7021-8 ####[facility]IA [id number] [place] [address] [place] Hematocrit (Bld) [Volume fraction] 32.7 % Low 39.0-51.0 [facility] Comment on above: Order Comment: Speci men Type: BLOOD SPECIMENOrdering Facility: [facility] Address: [address] [place] [address] Performed By: #### 5 7021-8 ####[facility] [id number] [place] [address] [place] Hemoglobin (Bld) [Mass/Vol] 11.8 g/dL Low 13.0-17.0 [facility] Comment on above: Order Comment: Speci men Type: BLOOD SPECIMENOrdering Facility: [facility] Address: [address] [place] [address] Performed By: #### 5 7021-8 ####[facility] [id number] [place] [address] [place] Lymphocytes (Bld) [#/Vol] 1.26 10*3/uL Normal 1.00-4.00 [facility] Comment on above: Order Comment: Speci men Type: BLOOD SPECIMENOrdering Facility: [facility] Address: [address] [place], [place] [address] Performed By: #### 5 7021-8 ####[facility] [id number] [place] [address] [place] Lymphocytes/100 WBC (Bld) 5.2 % Normal [facility] Comment on above: Order Comment: Speci men Type: BLOOD SPECIMENOrdering Facility: [facility] Address: [address] [place], [place] [address] Performed By: #### 5 7021-8 ####[facility] LABIA [id number] [place] [address] [place] MCH (RBC) [Entitic mass] 34.9 pg High 26.0-34.0 [facility] Comment on above: Order Comment: Speci men Type: BLOOD SPECIMENOrdering Facility: [facility] Address: [address] [place], [place] [address] Performed By: #### 5 7021-8 ####[facility]IA [id number] [place] [address] [place] MCHC (RBC) [Mass/Vol] 36.1 g/dL High 30.5-36.0 [facility] Comment on above: Order Comment: Speci men Type: BLOOD SPECIMENOrdering Facility: [facility] Address: [address] [place], [place] [address] Performed By: #### 5 7021-8 ####[facility]IA [id number] [place] [address] [place] MCV (RBC) [Entitic vol] 96.7 fL Normal 80.0-100.0 [facility] Comment on above: Order Comment: Speci men Type: BLOOD SPECIMENOrdering Facility: [facility] Address: [address] [place], [place] [address] Performed By: #### 5 7021-8 ####[facility]IA [id number] [place] [address] [place] Monocytes (Bld) [#/Vol] 1.89 10*3/uL High <0.87 [facility] Comment on above: Order Comment: Speci men Type: BLOOD SPECIMENOrdering Facility: [facility] Address: [address] [place] [address] Performed By: #### 5 7021-8 ####[facility] [id number] [place] [address] [place] Monocytes/100 WBC (Bld) 7.8 % Normal [facility] Comment on above: Order Comment: Speci men Type: BLOOD SPECIMENOrdering Facility: [facility] Address: [address] [place], [place] [address] Performed By: #### 5 7021-8 ####[facility] [id number] [place] [address] [place] MYELO% 2.6 % Normal [facility] Comment on above: Order Comment: Speci men Type: BLOOD SPECIMENOrdering Facility: [facility] Address: [address] [place], [place] [address] Performed By: #### 5 7021-8 ####[facility]IA [id number] [place] [address] [place] Neutrophils (Bld) [#/Vol] 16.82 10*3/uL High 1.45-7.50 [facility] Comment on above: Order Comment: Speci men Type: BLOOD SPECIMENOrdering Facility: [facility] Address: [address] [place], [place] [address] Performed By: #### 5 7021-8 ####[facility] [id number] [place] [address] [place] Neutrophils/100 WBC (Bld) 69.6 % Normal [facility] Comment on above: Order Comment: Speci men Type: BLOOD SPECIMENOrdering Facility: [facility] Address: [address] [place], [place] [address] Performed By: #### 5 7021-8 ####[facility] [id number] [place] [address] [place] Nucleated RBC (Bld) [#/Vol] 10*3/uL Normal <0.01 [facility] Comment on above: Order Comment: Speci men Type: BLOOD SPECIMENOrdering Facility: [facility] Address: [address] Performed By: #### 5 7021-8 ####[facility] [id number] [place] [address] [place] Nucleated RBC/100 WBC (Bld) [Ratio] 0.0 /100 WBC Normal [facility] Comment on above: Order Comment: Speci men Type: BLOOD SPECIMENOrdering Facility: [facility] Address: [address] [place], [place] [address] Performed By: #### 5 7021-8 ####[facility] [id number] [place] [address] [place] Ovalocytes LM Ql (Bld) Few Normal [facility] [facility] Comment on above: Order Comment: Speci men Type: BLOOD SPECIMENOrdering Facility: [facility] Address: [address] [place], [place] [address] Performed By: #### 5 7021-8 ####[facility] LABIA [id number] [place] [address] [place] Platelet mean volume (Bld) [Entitic vol] 10.7 fL Normal 9.0-12.7 [facility] Comment on above: Order Comment: Speci men Type: BLOOD SPECIMENOrdering Facility: [facility] Address: [address] [place], [place] [address] Performed By: #### 5 7021-8 ####[facility] LABCLIA [id number] [place] [address] [place] Platelets (Bld) [#/Vol] 97 10*3/uL Low 150-400 [facility] Comment on above: Order Comment: Speci men Type: BLOOD SPECIMENOrdering Facility: [facility] Address: [address] [place] [address] Result Comment: No c lot detected. Performed By: #### 5 7021-8 ####[facility] LABCLIA [id number] [place] [address] [place] Platelets Estimate (Bld) [#/Vol] Decreased Normal [facility] Comment on above: Order Comment: Speci men Type: BLOOD SPECIMENOrdering Facility: [facility] Address: [address] Performed By: #### 5 7021-8 ####[facility]IA [id number] [place] [address] [place] Polychromasia LM Ql (Bld) Slight Normal [facility] Comment on above: Order Comment: Speci men Type: BLOOD SPECIMENOrdering Facility: [facility] Address: [address] [place], [place] [address] Performed By: #### 5 7021-8 ####[facility]IA [id number] [place] [address] [place] RBC (Bld) [#/Vol] 3.38 10*6/uL Low 4.20-6.00 [facility] Comment on above: Order Comment: Speci men Type: BLOOD SPECIMENOrdering Facility: [facility] Address: [address] [place] [address] Performed By: #### 5 7021-8 ####[facility]IA [id number] [place] [address] [place] RBC FRAGMENTS Few Abnormal None Seen [facility] Comment on above: Order Comment: Speci men Type: BLOOD SPECIMENOrdering Facility: [facility] Address: [address] [place] [address] Performed By: #### 5 7021-8 ####[facility]IA [id number] [place] [address] [place] RED CELL MORPH Reviewed: see result s of individual morphologies Normal [facility] Comment on above: Order Comment: Speci men Type: BLOOD SPECIMENOrdering Facility: [facility] Address: [address] [place] [address] Performed By: #### 5 7021-8 ####[facility] LABCLIA [id number] [place] [address] [place] WBC (Bld) [#/Vol] 24.17 10*3/uL High 3.70-11.00 [facility] Comment on above: Order Comment: Speci men Type: BLOOD SPECIMENOrdering Facility: [facility] Address: [address] [place] [address] Performed By: #### 5 7021-8 ####[facility] LABCLIA [id number] [place] [address] [place] WBC Left Shift Ql (Bld) Present Normal [facility] Comment on above: Order Comment: Speci men Type: BLOOD SPECIMENOrdering Facility: [facility] Address: [address] [place] [address] Performed By: #### 5 7021-8 ####[facility]IA [id number] [place] [address] [place] Comprehensive metabolic 2000 panelon 04-12-2023 Albumin [Mass/Vol] 2.6 g/dL Low 3.9-4.9 [facility] Comment on above: Order Comment: Speci men Type: BLOOD SPECIMENOrdering Facility: [facility] Address: [address] [place], [place] [address] Performed By: #### 2 4323-8, 06771-2, 2777-1 ####[facility]IA [id number] [place] [address] [place] ALP [Catalytic activity/Vol] 105 U/L Normal 38-113 [facility] Comment on above: Order Comment: Speci men Type: BLOOD SPECIMENOrdering Facility: [facility] Address: [address] [address] Performed By: #### 2 4323-8, 48745-4, 2776-08 ####[facility] LABCLIA [id number] [place] [address] [place] ALT [Catalytic activity/Vol] 50 U/L Normal 10-54 [facility] Comment on above: Order Comment: Speci men Type: BLOOD SPECIMENOrdering Facility: [facility] Address: [address] [place] [address] Performed By: #### 2 4323-8, , 2776-08 ####[facility]IA [id number] [place] [address] [place] Anion gap [Moles/Vol] 9 mmol/L Normal 9-18 [facility] Comment on above: Order Comment: Speci men Type: BLOOD SPECIMENOrdering Facility: [facility] Address: [address] [place] [address] Performed By: #### 2 4323-8, , 2776-08 ####[facility]IA [id number] [place] [address] [place] AST [Catalytic activity/Vol] 37 U/L Normal 14-40 [facility] Comment on above: Order Comment: Speci men Type: BLOOD SPECIMENOrdering Facility: [facility] Address: [address] [place], [place] [address] Performed By: #### 2 4323-8, , 2776-08 ####[facility] LABCLIA [id number] [place] [address] [place] Bilirubin [Mass/Vol] 0.9 mg/dL Normal 0.2-1.3 [facility] Comment on above: Order Comment: Speci men Type: BLOOD SPECIMENOrdering Facility: [facility] Address: [address] [place], [place] [address] Performed By: #### 2 4323-8, , 2776-08 ####[facility] LABCLIA [id number] [place] [address] [place] Calcium [Mass/Vol] 7.9 mg/dL Low 8.5-10.2 [facility] Comment on above: Order Comment: Speci men Type: BLOOD SPECIMENOrdering Facility: [facility] Address: [address] [address] Performed By: #### 2 432-8, , 2776-08 ####[facility] LABCLIA [id number] [place] [address] [place] Chloride [Moles/Vol] 95 mmol/L Low 97-105 [facility] Comment on above: Order Comment: Speci men Type: BLOOD SPECIMENOrdering Facility: [facility] Address: [address] [address] Performed By: #### 2 432-8, , 2776-08 ####[facility] LABCLIA [id number] [place] [address] [place] CO2 [Moles/Vol] 24 mmol/L Normal 22-30 [facility] Comment on above: Order Comment: Speci men Type: BLOOD SPECIMENOrdering Facility: [facility] Address: [address] Performed By: #### 2 432-8, , 2776-08 ####[facility] LABCLIA [id number] [place] [address] [place] Creatinine [Mass/Vol] 1.23 mg/dL High 0.73-1.22 [facility] Comment on above: Order Comment: Speci men Type: BLOOD SPECIMENOrdering Facility: [facility] Address: [address] Performed By: #### 2 4323-8, 19368-72776-08 ####[facility] LABCLIA [id number] [place] [address] [place] Creatinine and Glomerular filtration rate.predicted panel (S/P/Bld) 76 mL/min/1.73m??? Normal >=60 [facility] Comment on above: Order Comment: Rasta kennedy Type: BLOOD SPECIMENOrdering Facility: [facility] Address: [address] [place] [address] Result Comment: Karma mated Glomerular Filtration Rate (eGFR) is calculated using the 2020 CKD-EPI creatinine equation. This equation utilizes serum creatinine, sex, and age as parameters. The creatinine assay has traceable calibration to isotope dilution-mass spectrometry. Refer to KDIGO guidelines for clinical interpretation. In patients with unstable renal function, e.g. those with acute kidney injury, the eGFR may not accurately reflect actual GFR. Performed By: #### 2 4323-8, 89573-1, 2776-08 ####[facility]IA [id number] [place] [address] [place] Glucose [Mass/Vol] 81 mg/dL Normal 74-99 [facility] Comment on above: Order Comment: Rasta kennedy Type: BLOOD SPECIMENOrdering Facility: [facility] Address: [address] [place] [address] Result Comment: The [place] [employer] (ADA) provides guidance for cutoff values for fasting glucose and random glucose. The ADA defines fasting as no caloric intake for at least 8 hours. Fasting plasma glucose results between 100 to 125 mg/dL indicate increased risk for diabetes (prediabetes).Fasting plasma glucose results greater than or equal to 126 mg/dL meet the criteria for diagnosis of diabetes. In the absence of unequivocal hyperglycemia, results should be confirmed by repeat testing. In a patient with classic symptoms of hyperglycemia or hyperglycemic crisis, random plasma glucose results greater than or equal to 200 mg/dL meet the criteria for diagnosis of diabetes.Reference: Standards of Medical Care in Diabetes 2016, [place] [employer]. Diabetes Care. 2016.39(Suppl 1). Performed By: #### 2 4323-8, 83569-2, 2776- ####[facility] LABCLIA [id number] [place] [address] [place] Potassium [Moles/Vol] 4.8 mmol/L Normal 3.7-5.1 [facility] Comment on above: Order Comment: Speci men Type: BLOOD SPECIMENOrdering Facility: [facility] Address: [address] [place] [address] Performed By: #### 2 4323-8, , 2776-08 ####[facility] LABCLIA [id number] [place] [address] [place] Protein [Mass/Vol] 4.3 g/dL Low 6.3-8.0 [facility] Comment on above: Order Comment: Speci men Type: BLOOD SPECIMENOrdering Facility: [facility] Address: [address] [place] [address] Performed By: #### 2 4323-8, , 2776-08 ####[facility] LABIA [id number] [place] [address] [place] Sodium [Moles/Vol] 128 mmol/L Low 136-144 [facility] Comment on above: Order Comment: Speci men Type: BLOOD SPECIMENOrdering Facility: [facility] Address: [address] [place] [address] Performed By: #### 2 4323-8, , 2776-08 ####[facility] LABCLIA [id number] [place] [address] [place] Urea nitrogen [Mass/Vol] 34 mg/dL High 9-24 [facility] Comment on above: Order Comment: Speci men Type: BLOOD SPECIMENOrdering Facility: [facility] Address: [address] Performed By: #### 2 4323-8, , 2776-08 ####[facility] LABCLIA [id number] [place] [address] [place] Magnesium SerPl-mCncon 04-12 Magnesium [Mass/Vol] 2.3 mg/dL Normal 1.7-2.3 [facility] Comment on above: Order Comment: Speci men Type: BLOOD SPECIMENOrdering Facility: [facility] Address: [address] [place] [address] Performed By: #### 2 4323-8, 10479-7, 2777-1 ####[facility] LABCLIA [id number] [place] [address] [place] PT panel Coag (PPP)on 2022 INR Coag (PPP) [Relative time] 1.1 {INR} Normal 0.9-1.3 [facility] Comment on above: Order Comment: Speci men Type: BLOOD SPECIMENOrdering Facility: [facility] Address: [address] [place] [address] Result Comment: Binta min K Antagonist (VKA) Therapeutic Range: INR 2 to 3 (Target INR of 2.5)Note: For patients treated with VKA drugs, such as warfarin, the [place] [employer] 2012 Guideline recommends a therapeutic INR range of 2 to 3 (target INR of 2.5). This recommendation includes high-risk patients with antiphospholipid syndrome with previous arterial or venous thromboembolism, current-generation mechanical or bioprosthetic aortic heart valve replacement.Note: Patients with mechanical aortic valve replacement and additional risk factors for thromboembolic events (atrial fibrillation, previous thromboembolism, LV dysfunction, hypercoagulable conditions) or an older generation mechanical AVR (i.e., ball in-Cage) or any mechanical MVR should have a INR therapeutic range of 2.5 to 3.5 (target INR of 3).Robyn GH, et al. Chest 2012, 141:7S-47SNishimura RA, et al. [facility] 2017, 70: 252-289 Performed By: #### 3 4528-0, 87749-4 ####[facility] LABCLIA [id number] [address] [place] PT Coag (PPP) [Time] 11.2 s Normal 9.7-13.0 [facility] Comment on above: Order Comment: Rasta kennedy Type: BLOOD SPECIMENOrdering Facility: [facility] Address: [address] [place] [address] Performed By: #### 3 4528-0, 19839-3 ####[facility] LABCLIA [id number] [place] [address] [place] Phosphate SerPl-ncon 04-12 Phosphate [Mass/Vol] 2.7 mg/dL Normal 2.7-4.8 [facility] Comment on above: Order Comment: Rasta kennedy Type: BLOOD SPECIMENOrdering Facility: [facility] Address: [address] [place] [address] Performed By: #### 2 4323-8, 63975-2, 2777-1 ####[facility] LABCLIA [id number] [place] [address] [place] Tacrolimus Bld-mCncon 2022 Tacrolimus (Bld) [Mass/Vol] 8.1 ng/mL Normal 5.0-20.0 [facility] Comment on above: Order Comment: Rasta kennedy Type: BLOOD SPECIMENOrdering Facility: [facility] Address: [address] [place] [address] Result Comment: Jennifer vidualized target levels for a given patient will depend on many factors (including the type of organ transplant, time since transplantation, concurrent medications, and other clinical factors), and should be assessed by those health care providers experienced in the management of immunosuppression. Reference ranges and high/low indicator flags are provided as general guidelines only. The treating physician must determine appropriate target levels/dosing based on the specific clinical situation. Test performed by chemiluminescent immunoassay using SWYF Alinity i. Performed By: #### 1 1253-2 ####[facility] LABCLIA [id number] [place] [address] [place] aPTT PPPon 04-12-2023 aPTT Coag (PPP) [Time] 23.4 s Normal 23.0-32.4 [facility] Comment on above: Order Comment: Speci men Type: BLOOD SPECIMENOrdering Facility: [facility] Address: [address] [place] [address] Performed By: #### 3 4528-0, 21249-8 ####[facility] LABCLIA [id number] [place] [address] [place] CBC W Auto Differential pane l (Bld)on 04-11-2023 Anisocytosis Ql (Bld) Present Normal [facility] Comment on above: Order Comment: Speci men Type: BLOOD SPECIMENOrdering Facility: [facility] Address: [address] [place] [address] Performed By: #### 5 7021-8 ####[facility] LABCLIA [id number] [place] [address] [place] Basophils (Bld) [#/Vol] 0.00 10*3/uL Normal <0.11 [facility] Comment on above: Order Comment: Speci men Type: BLOOD SPECIMENOrdering Facility: [facility] Address: [address] [place] [address] Performed By: #### 5 7021-8 ####[facility] LABCLIA [id number] [address] [place] Basophils/100 WBC (Bld) 0.0 % Normal [facility] Comment on above: Order Comment: Speci men Type: BLOOD SPECIMENOrdering Facility: [facility] Address: [address] [place], [place] [address] Performed By: #### 5 7021-8 ####[facility] LABCLIA [id number] [place] [address] [place] Differential cell count method Nom (Bld) Manual Normal [facility] Comment on above: Order Comment: Speci men Type: BLOOD SPECIMENOrdering Facility: [facility] Address: [address] Performed By: #### 5 7021-8 ####[facility] LABCLIA [id number] [place] [address] [place] Eosinophils (Bld) [#/Vol] 2.88 10*3/uL High <0.46 [facility] Comment on above: Order Comment: Speci men Type: BLOOD SPECIMENOrdering Facility: [facility] Address: [address] [address] Performed By: #### 5 7021-8 ####[facility] LABCLIA [id number] [place] [address] [place] Eosinophils/100 WBC (Bld) 12.8 % Normal [facility] Comment on above: Order Comment: Speci men Type: BLOOD SPECIMENOrdering Facility: [facility] Address: [address] [place], [place] [address] Performed By: #### 5 7021-8 ####[facility] LABCLIA [id number] [place] [address] [place] Erythrocyte distribution width (RBC) [Ratio] 16.2 % High 11.5-15.0 [facility] Comment on above: Order Comment: Speci men Type: BLOOD SPECIMENOrdering Facility: [facility] Address: [address] [place], [place] [address] Performed By: #### 5 7021-8 ####[facility] LABCLIA [id number] [place] [address] [place] Hematocrit (Bld) [Volume fraction] 32.9 % Low 39.0-51.0 [facility] Comment on above: Order Comment: Speci men Type: BLOOD SPECIMENOrdering Facility: [facility] Address: [address] [place], [place] [address] Performed By: #### 5 7021-8 ####[facility] LABCLIA [id number] [place] [address] [place] Hemoglobin (Bld) [Mass/Vol] 12.0 g/dL Low 13.0-17.0 [facility] Comment on above: Order Comment: Speci men Type: BLOOD SPECIMENOrdering Facility: [facility] Address: [address] [place] [address] Performed By: #### 5 7021-8 ####[facility] LABCLIA [id number] [place] [address] [place] Lymphocytes (Bld) [#/Vol] 0.36 10*3/uL Low 1.00-4.00 [facility] Comment on above: Order Comment: Speci men Type: BLOOD SPECIMENOrdering Facility: [facility] Address: [address] [place] [address] Performed By: #### 5 7021-8 ####[facility]CLIA [id number] [address] [place] Lymphocytes/100 WBC (Bld) 1.6 % Normal [facility] Comment on above: Order Comment: Speci men Type: BLOOD SPECIMENOrdering Facility: [facility] Address: [address] [place] [address] Performed By: #### 5 7021-8 ####[facility] LABCLIA [id number] [place] [address] [place] MCH (RBC) [Entitic mass] 34.7 pg High 26.0-34.0 [facility] Comment on above: Order Comment: Speci men Type: BLOOD SPECIMENOrdering Facility: [facility] Address: [address] [place] [address] Performed By: #### 5 7021-8 ####[facility] LABCLIA [id number] [place] [address] [place] MCHC (RBC) [Mass/Vol] 36.5 g/dL High 30.5-36.0 [facility] Comment on above: Order Comment: Speci men Type: BLOOD SPECIMENOrdering Facility: [facility] Address: [address] Performed By: #### 5 7021-8 ####[facility]IA [id number] [place] [address] [place] MCV (RBC) [Entitic vol] 95.1 fL Normal 80.0-100.0 [facility] Comment on above: Order Comment: Speci men Type: BLOOD SPECIMENOrdering Facility: [facility] Address: [address] Performed By: #### 5 7021-8 ####[facility] [id number] [place] [address] [place] Monocytes (Bld) [#/Vol] 1.62 10*3/uL High <0.87 [facility] Comment on above: Order Comment: Speci men Type: BLOOD SPECIMENOrdering Facility: [facility] Address: [address] Performed By: #### 5 7021-8 ####[facility] [id number] [place] [address] [place] Monocytes/100 WBC (Bld) 7.2 % Normal [facility] Comment on above: Order Comment: Speci men Type: BLOOD SPECIMENOrdering Facility: [facility] Address: [address] [place] [address] Performed By: #### 5 7021-8 ####[facility]IA [id number] [place] [address] [place] Neutrophils (Bld) [#/Vol] 17.62 10*3/uL High 1.45-7.50 [facility] Comment on above: Order Comment: Speci men Type: BLOOD SPECIMENOrdering Facility: [facility] Address: [address] Performed By: #### 5 7021-8 ####[facility]CLIA [id number] [place] [address] [place] Neutrophils/100 WBC (Bld) 78.4 % Normal [facility] Comment on above: Order Comment: Speci men Type: BLOOD SPECIMENOrdering Facility: [facility] Address: [address] [place], [place] [address] Performed By: #### 5 7021-8 ####[facility]CLIA [id number] [place] [address] [place] Nucleated RBC (Bld) [#/Vol] 10*3/uL Normal <0.01 [facility] Comment on above: Order Comment: Speci men Type: BLOOD SPECIMENOrdering Facility: [facility] Address: [address] [place] [address] Performed By: #### 5 7021-8 ####[facility]IA [id number] [place] [address] [place] Nucleated RBC/100 WBC (Bld) [Ratio] 0.0 /100 WBC Normal [facility] Comment on above: Order Comment: Speci men Type: BLOOD SPECIMENOrdering Facility: [facility] Address: [address] [place], [place] [address] Performed By: #### 5 7021-8 ####[facility] [id number] [place] [address] [place] Ovalocytes LM Ql (Bld) Few Normal [facility] Comment on above: Order Comment: Speci men Type: BLOOD SPECIMENOrdering Facility: [facility] Address: [address] [place], [place] [address] Performed By: #### 5 7021-8 ####[facility] LABCLIA [id number] [place] [address] [place] Platelet mean volume (Bld) [Entitic vol] 10.8 fL Normal 9.0-12.7 [facility] Comment on above: Order Comment: Speci men Type: BLOOD SPECIMENOrdering Facility: [facility] Address: [address] Performed By: #### 5 7021-8 ####[facility] LABCLIA [id number] [place] [address] [place] Platelets (Bld) [#/Vol] 70 10*3/uL Low 150-400 [facility] Comment on above: Order Comment: Speci men Type: BLOOD SPECIMENOrdering Facility: [facility] Address: [address] [address] Result Comment: No c lot detected. Performed By: #### 5 7021-8 ####[facility] LABCLIA [id number] [place] [address] [place] Platelets Estimate (Bld) [#/Vol] Decreased Normal [facility] Comment on above: Order Comment: Speci men Type: BLOOD SPECIMENOrdering Facility: [facility] Address: [address] [address] Performed By: #### 5 7021-8 ####[facility] LABCLIA [id number] [place] [address] [place] Polychromasia LM Ql (Bld) Slight Normal [facility] Comment on above: Order Comment: Speci men Type: BLOOD SPECIMENOrdering Facility: [facility] Address: [address] Performed By: #### 5 7021-8 ####[facility] LABCLIA [id number] [place] [address] [place] RBC (Bld) [#/Vol] 3.46 10*6/uL Low 4.20-6.00 [facility] Comment on above: Order Comment: Speci men Type: BLOOD SPECIMENOrdering Facility: [facility] Address: [address] Performed By: #### 5 7021-8 ####[facility] LABIA [id number] [place] [address] [place] RED CELL MORPH Reviewed: see result s of individual morphologies Normal [facility] Comment on above: Order Comment: Speci men Type: BLOOD SPECIMENOrdering Facility: [facility] Address: [address] [place], [place] [address] Performed By: #### 5 7021-8 ####[facility] LABIA [id number] [place] [address] [place] WBC (Bld) [#/Vol] 22.47 10*3/uL High 3.70-11.00 [facility] Comment on above: Order Comment: Speci men Type: BLOOD SPECIMENOrdering Facility: [facility] Address: [address] [place], [place] [address] Performed By: #### 5 7021-8 ####[facility] [id number] [place] [address] [place] CONSULT PROGon 04-11-2023 CONSULT PROG Normal [facility] Comprehensive metabolic 2000 panelon 04-11-2023 Albumin [Mass/Vol] 2.6 g/dL Low 3.9-4.9 [facility] Comment on above: Order Comment: Speci men Type: BLOOD SPECIMENOrdering Facility: [facility] Address: [address] [id number] Performed By: #### 2 4323-8, LIPNF, 20422-1, 2777-1 ####[facility] [id number] [place] [address] [place] ALP [Catalytic activity/Vol] 121 U/L High 38-113 [facility] Comment on above: Order Comment: Speci men Type: BLOOD SPECIMENOrdering Facility: [facility] Address: [address] [place], [place] [address] Performed By: #### 2 4323-8, LIPNF, 60291-1, 2776-08 ####[facility] LABCLIA [id number] [place] [address] [place] ALT [Catalytic activity/Vol] 54 U/L Normal 10-54 [facility] Comment on above: Order Comment: Speci men Type: BLOOD SPECIMENOrdering Facility: [facility] Address: [address] [place] [address] Performed By: #### 2 4323-8, LIPNF, , 2776-08 ####[facility] LABCLIA [id number] [place] [address] [place] Anion gap [Moles/Vol] 7 mmol/L Low 9-18 [facility] Comment on above: Order Comment: Speci men Type: BLOOD SPECIMENOrdering Facility: [facility] Address: [address] [place] [address] Performed By: #### 2 4323-8, LIPNF, , 2776-08 ####[facility] LABIA [id number] [place] [address] [place] AST [Catalytic activity/Vol] 37 U/L Normal 14-40 [facility] Comment on above: Order Comment: Speci men Type: BLOOD SPECIMENOrdering Facility: [facility] Address: [address] [place] [address] Performed By: #### 2 4323-8, LIPNF, , 2776-08 ####[facility] LABCLIA [id number] [place] [address] [place] Bilirubin [Mass/Vol] 1.1 mg/dL Normal 0.2-1.3 [facility] Comment on above: Order Comment: Speci men Type: BLOOD SPECIMENOrdering Facility: [facility] Address: [address] [place] [address] Performed By: #### 2 4323-8, LIPNF, , 2776-08 ####[facility] LABCLIA [id number] [place] [address] [place] Calcium [Mass/Vol] 7.6 mg/dL Low 8.5-10.2 [facility] Comment on above: Order Comment: Speci men Type: BLOOD SPECIMENOrdering Facility: [facility] Address: [address] [place] [address] Performed By: #### 2 4323-8, LIPNF, , 2776-08 ####[facility] LABCLIA [id number] [place] [address] [place] Chloride [Moles/Vol] 95 mmol/L Low 97-105 [facility] Comment on above: Order Comment: Speci men Type: BLOOD SPECIMENOrdering Facility: [facility] Address: [address] [place] [address] Performed By: #### 2 4323-8, LIPNF, , 2776-08 ####[facility] LABIA [id number] [place] [address] [place] CO2 [Moles/Vol] 23 mmol/L Normal 22-30 [facility] Comment on above: Order Comment: Speci men Type: BLOOD SPECIMENOrdering Facility: [facility] Address: [address] [place], [place] [address] Performed By: #### 2 4323-8, LIPNF, , 2776-08 ####[facility] LABCLIA [id number] [place] [address] [place] Creatinine [Mass/Vol] 1.48 mg/dL High 0.73-1.22 [facility] Comment on above: Order Comment: Speci men Type: BLOOD SPECIMENOrdering Facility: [facility] Address: [address] [place] [address] Performed By: #### 2 4323-8, LIPNF, 73471-42776-08 ####[facility] LABCLIA [id number] [place] [address] [place] Creatinine and Glomerular filtration rate.predicted panel (S/P/Bld) 61 mL/min/1.73m??? Normal >=60 [facility] Comment on above: Order Comment: Rasta kennedy Type: BLOOD SPECIMENOrdering Facility: [facility] Address: [address] [place] [address] Result Comment: Karma mated Glomerular Filtration Rate (eGFR) is calculated using the 2020 CKD-EPI creatinine equation. This equation utilizes serum creatinine, sex, and age as parameters. The creatinine assay has traceable calibration to isotope dilution-mass spectrometry. Refer to KDIGO guidelines for clinical interpretation. In patients with unstable renal function, e.g. those with acute kidney injury, the eGFR may not accurately reflect actual GFR. Performed By: #### 2 4323-8, LIPSEBASTIAN, , 2776-08 ####[facility] LABCLIA [id number] [place] [address] [place] Glucose [Mass/Vol] 137 mg/dL High 74-99 [facility] Comment on above: Order Comment: Rasta kennedy Type: BLOOD SPECIMENOrdering Facility: [facility] Address: [address] [place] [address] Result Comment: The [place] Diabetes Association (ADA) provides guidance for cutoff values for fasting glucose and random glucose. The ADA defines fasting as no caloric intake for at least 8 hours. Fasting plasma glucose results between 100 to 125 mg/dL indicate increased risk for diabetes (prediabetes).Fasting plasma glucose results greater than or equal to 126 mg/dL meet the criteria for diagnosis of diabetes. In the absence of unequivocal hyperglycemia, results should be confirmed by repeat testing. In a patient with classic symptoms of hyperglycemia or hyperglycemic crisis, random plasma glucose results greater than or equal to 200 mg/dL meet the criteria for diagnosis of diabetes.Reference: Standards of Medical Care in Diabetes 2016, [place] Diabetes Association. Diabetes Care. 2016.39(Suppl 1). Performed By: #### 2 4323-8, LIPNF, , 2776-08 ####[facility] LABCLIA [id number] [place] [address] [place] Potassium [Moles/Vol] 4.1 mmol/L Normal 3.7-5.1 [facility] Comment on above: Order Comment: Speci men Type: BLOOD SPECIMENOrdering Facility: [facility] Address: [address] [place], [place] [address] Performed By: #### 2 4323-8, LIPNF, , 2776-08 ####[facility] LABIA [id number] [place] [address] [place] Protein [Mass/Vol] 4.4 g/dL Low 6.3-8.0 [facility] Comment on above: Order Comment: Speci men Type: BLOOD SPECIMENOrdering Facility: [facility] Address: [address] [place], [place] [address] Performed By: #### 2 4323-8, LIPNF, , 2776-08 ####[facility] [id number] [place] [address] [place] Sodium [Moles/Vol] 125 mmol/L Low 136-144 [facility] Comment on above: Order Comment: Speci men Type: BLOOD SPECIMENOrdering Facility: [facility] Address: [address] [place], [place] [address] Performed By: #### 2 4323-8, LIPNF, , 2776-08 ####[facility] LABIA [id number] [place] [address] [place] Urea nitrogen [Mass/Vol] 52 mg/dL High 9-24 [facility] Comment on above: Order Comment: Speci men Type: BLOOD SPECIMENOrdering Facility: [facility] Address: [address] [place], [place] [address] Performed By: #### 2 4323-8, LIPNF, , 2777-1 ####[facility] LABCLIA [id number] [address] HbA1c (Bld)on 04-11-2023 Average glucose Estimated from glycated hemoglobin (Bld) [Mass/Vol] 68 mg/dL Normal [facility] Comment on above: Order Comment: Rasta kennedy Type: BLOOD SPECIMENOrdering Facility: [facility] Address: [address] [place] [address] Result Comment: eAG: (Estimated average glucose) is a calculated value from HgbA1c and is senior patient account representative of the average blood glucose level in the last 2-3 month period. Performed By: #### 5 5454-3 ####[facility] LABIA [id number] [address] HbA1c (Bld) [Mass fraction] 4.0 % Low 4.3-5.6 [facility] Comment on above: Order Comment: Rasta kenndey Type: BLOOD SPECIMENOrdering Facility: [facility] Address: [address] [place] [address] Result Comment: [place] Diabetes Association guidelines indicate that patients with HgbA1c in the range 5.7-6.4% are at increased risk for development of diabetes, and intervention by lifestyle modification may be beneficial. HgbA1c greater or equal to 6.5% is considered diagnostic of diabetes. Performed By: #### 5 5454-3 ####[facility] LABCLIA [id number] [address] OF [facility] LIPID PANEL, NONFASTINGon Cholesterol [Mass/Vol] 92 mg/dL Normal <200 [facility] Comment on above: Order Comment: Rasta kennedy Type: BLOOD SPECIMENOrdering Facility: [facility] Address: [address] [place] [address] Result Comment: <200 mg/dL, Desirable 200-239 mg/dL, Borderline high>239 mg/dL, High Performed By: #### 2 4323-8, LIPNF, 26552-5, 2777-1 ####[facility] LABCLIA [id number] [address] OF [facility] HDL CHOLESTEROL, NF 32 mg/dL Low >39 [facility] Comment on above: Order Comment: Yuryi men Type: BLOOD SPECIMENOrdering Facility: [facility] Address: [address] [address] Result Comment: 40-5 9 mg/dL, Acceptable>59 mg/dL, High: Negative risk factor for coronary heart disease<40 mg/dL, Low: Positive risk factor for coronary heart disease Performed By: #### 2 4323-8, LIPNF, 94949-9, 2777-1 ####[facility] LABCLIA [id number] [address] LDL CHOLESTEROL, NF 38 mg/dL Normal <100 [facility] Comment on above: Order Comment: Speci men Type: BLOOD SPECIMENOrdering Facility: [facility] Address: [address] [address] Result Comment: <100 mg/dL, Optimal 100-129 mg/dL, Near optimal/above optimal 130-159 mg/dL, Borderline high 160-189 mg/dL, High>189 mg/dL, Very highSecondary prevention optimal LDL Cholesterol levels are recommended to be < 70 mg/dL Performed By: #### 2 4323-8, LIPNF, 19595-5, 2777-1 ####[facility] LABCLIA [id number] [address] LDL/HDL RATIO, NF 1.19 mg/dL Normal <2.54 [facility] Comment on above: Order Comment: Speci men Type: BLOOD SPECIMENOrdering Facility: [facility] Address: [address] [place] [address] Result Comment: Refcarlos talamantesce:1. National Cholesterol Education Program ATP III Guideline At-A-Glance Quick Desk Reference: National Heart, Lung, and Blood [place]. National Institutes of Health. 2001: NIH Publication No. 01-3305.2. An International Atherosclerosis Society position paper: global recommendations for the management of dyslipidemia: executive summary, Atherosclerosis. 2014: 232(2):410-413. Performed By: #### 2 4323-8, LIPNF, , 2776- ####[facility] LABCLIA [id number] [address] [place] NON HDL CHOL, NF 60 mg/dL Normal <130 [facility] Comment on above: Order Comment: Speci men Type: BLOOD SPECIMENOrdering Facility: [facility] Address: [address] [place] [address] Result Comment: <130 mg/dL, Optimal 130-159 mg/dL, Near optimal/above optimal 160-189 mg/dL, Borderline high 190-219 mg/dL, High>219 mg/dL, Very highSecondary prevention optimal non HDL Cholesterol levels are recommended to be <100 mg/dL Performed By: #### 2 4323-8, LIPNF, , 2776-08 ####[facility] LABCLIA [id number] [address] OF [facility] T CHOL/HDL RATIO NF 2.88 mg/dL Normal <5.10 [facility] Comment on above: Order Comment: Rasta kennedy Type: BLOOD SPECIMENOrdering Facility: [facility] Address: [address] [place] [address] Performed By: #### 2 4323-8, LIPNF, , 2776-08 ####[facility] LABCLIA [id number] [address] [place] TRIGLYCERIDES, NF 108 mg/dL Normal <150 [facility] Comment on above: Order Comment: Rasta kennedy Type: BLOOD SPECIMENOrdering Facility: [facility] Address: [address] [address] Result Comment: <150 mg/dL, Normal 150-199 mg/dL, Borderline high 200-499 mg/dL, High>499 mg/dL, Very high Performed By: #### 2 4323-8, LIPNF, , 2776-08 ####[facility] LABCLIA [id number] [place] [address] [place] VLDL CHOLESTEROL, NF 22 mg/dL Normal <30 [facility] Comment on above: Order Comment: Rasta kennedy Type: BLOOD SPECIMENOrdering Facility: [facility] Address: [address] [place] [address] Performed By: #### 2 4323-8, LIPNF, , 2776-08 ####[facility] LABCLIA [id number] [place] [address] [place] Magnesium SerPl-mCncon 04-11 Magnesium [Mass/Vol] 2.6 mg/dL High 1.7-2.3 [facility] Comment on above: Order Comment: Rasta kennedy Type: BLOOD SPECIMENOrdering Facility: [facility] Address: [address] [place] [address] Performed By: #### 2 4323-8, LIPSEBASTIAN, , 2776-08 ####[facility] LABIA [id number] [address] [place] PT panel Coag (PPP)on 2022 INR Coag (PPP) [Relative time] 1.1 {INR} Normal 0.9-1.3 [facility] Comment on above: Order Comment: Rasta kennedy Type: BLOOD SPECIMENOrdering Facility: [facility] Address: [address] [place] [address] Result Comment: Binta min K Antagonist (VKA) Therapeutic Range: INR 2 to 3 (Target INR of 2.5)Note: For patients treated with VKA drugs, such as warfarin, the [place] [employer] 2012 Guideline recommends a therapeutic INR range of 2 to 3 (target INR of 2.5). This recommendation includes high-risk patients with antiphospholipid syndrome with previous arterial or venous thromboembolism, current-generation mechanical or bioprosthetic aortic heart valve replacement.Note: Patients with mechanical aortic valve replacement and additional risk factors for thromboembolic events (atrial fibrillation, previous thromboembolism, LV dysfunction, hypercoagulable conditions) or an older generation mechanical AVR (i.e., ball in-Cage) or any mechanical MVR should have a INR therapeutic range of 2.5 to 3.5 (target INR of 3).Robyn ALFORD, et al. Chest 2012, 141:7S-47SSindhu RA, et al. [facility] 2017, 70: 252-289 Performed By: #### 3 4528-0, 06826-8 ####[facility] LABIA [id number] [place] [address] [place] PT Coag (PPP) [Time] 11.2 s Normal 9.7-13.0 [facility] Comment on above: Order Comment: Speci men Type: BLOOD SPECIMENOrdering Facility: [facility] Address: [address] [place] [address] Performed By: #### 3 4528-0, 72456-5 ####[facility] LABIA [id number] [place] [address] [place] Phosphate SerPl-mCncon 04-11 Phosphate [Mass/Vol] 2.7 mg/dL Normal 2.7-4.8 [facility] Comment on above: Order Comment: Yuryi men Type: BLOOD SPECIMENOrdering Facility: [facility] Address: [address] [place] [address] Performed By: #### 2 4323-8, LIPNF, 79176-8, 2777-1 ####[facility] [id number] [place] [address] [place] Tacrolimus Bld-mCncon 2022 Tacrolimus (Bld) [Mass/Vol] 9.2 ng/mL Normal 5.0-20.0 [facility] Comment on above: Order Comment: Speci men Type: BLOOD SPECIMENOrdering Facility: [facility] Address: [address] [place] [address] Result Comment: Jennifer vidualized target levels for a given patient will depend on many factors (including the type of organ transplant, time since transplantation, concurrent medications, and other clinical factors), and should be assessed by those health care providers experienced in the management of immunosuppression. Reference ranges and high/low indicator flags are provided as general guidelines only. The treating physician must determine appropriate target levels/dosing based on the specific clinical situation. Test performed by chemiluminescent immunoassay using [employer]Traklight i. Performed By: #### 1 1253-2 ####[facility] LABCLIA [id number] [address] STATES OF [facility] aPTT PPPon 04-11-2023 aPTT Coag (PPP) [Time] 24.4 s Normal 23.0-32.4 [facility] Comment on above: Order Comment: Rasta kennedy Type: BLOOD SPECIMENOrdering Facility: [facility] Address: [address] [place] [address] Performed By: #### 3 4528-0, 60245-6 ####[facility] LABIA [id number] [address] [place] CASE MANAGEMon 04-10-2023 CASE MANAGEM Normal [facility] CBC W Auto Differential pane l (Bld)on 04-10-2023 Anisocytosis Ql (Bld) Present Normal [facility] Comment on above: Order Comment: Rasta kennedy Type: BLOOD SPECIMENOrdering Facility: [facility] Address: [address] [address] Performed By: #### 5 7021-8 ####[facility] LABIA [id number] [place] [address] [place] Basophils (Bld) [#/Vol] 0.03 10*3/uL Normal <0.11 [facility] Comment on above: Order Comment: Rasta kennedy Type: BLOOD SPECIMENOrdering Facility: [facility] Address: [address] [address] Performed By: #### 5 7021-8 ####[facility] LABCLIA [id number] [place] [address] [place] Basophils/100 WBC (Bld) 0.2 % Normal [facility] Comment on above: Order Comment: Speci men Type: BLOOD SPECIMENOrdering Facility: [facility] Address: [address] [place] [address] Performed By: #### 5 7021-8 ####[facility] LABCLIA [id number] [place] [address] [place] Differential cell count method Nom (Bld) Auto Normal [facility] Comment on above: Order Comment: Speci men Type: BLOOD SPECIMENOrdering Facility: [facility] Address: [address] [place] [address] Performed By: #### 5 7021-8 ####[facility] LABCLIA [id number] [place] [address] [place] Eosinophils (Bld) [#/Vol] 2.79 10*3/uL High <0.46 [facility] Comment on above: Order Comment: Speci men Type: BLOOD SPECIMENOrdering Facility: [facility] Address: [address] [place], [place] [address] Performed By: #### 5 7021-8 ####[facility] LABCLIA [id number] [place] [address] [place] Eosinophils/100 WBC (Bld) 16.6 % Normal [facility] Comment on above: Order Comment: Speci men Type: BLOOD SPECIMENOrdering Facility: [facility] Address: [address] [place], [place] [address] Performed By: #### 5 7021-8 ####[facility] LABCLIA [id number] [place] [address] [place] Erythrocyte distribution width (RBC) [Ratio] 16.5 % High 11.5-15.0 [facility] Comment on above: Order Comment: Speci men Type: BLOOD SPECIMENOrdering Facility: [facility] Address: [address] Performed By: #### 5 7021-8 ####[facility] LABCLIA [id number] [place] [address] [place] Hematocrit (Bld) [Volume fraction] 29.9 % Low 39.0-51.0 [facility] Comment on above: Order Comment: Speci men Type: BLOOD SPECIMENOrdering Facility: [facility] Address: [address] [place], [place] [address] Performed By: #### 5 7021-8 ####[facility] LABCLIA [id number] [place] [address] [place] Hemoglobin (Bld) [Mass/Vol] 11.2 g/dL Low 13.0-17.0 [facility] Comment on above: Order Comment: Speci men Type: BLOOD SPECIMENOrdering Facility: [facility] Address: [address] [place], [place] [address] Performed By: #### 5 7021-8 ####[facility] LABCLIA [id number] [place] [address] [place] Immature granulocytes (Bld) [#/Vol] 0.10 10*3/uL High <0.10 [facility] Comment on above: Order Comment: Speci men Type: BLOOD SPECIMENOrdering Facility: [facility] Address: [address] [place], [place] [address] Performed By: #### 5 7021-8 ####[facility] LABCLIA [id number] [place] [address] [place] Immature granulocytes/100 WBC (Bld) 0.6 % Normal [facility] Comment on above: Order Comment: Speci men Type: BLOOD SPECIMENOrdering Facility: [facility] Address: [address] [place], [place] [address] Performed By: #### 5 7021-8 ####[facility] LABCLIA [id number] [place] [address] [place] Lymphocytes (Bld) [#/Vol] 1.06 10*3/uL Normal 1.00-4.00 [facility] Comment on above: Order Comment: Speci men Type: BLOOD SPECIMENOrdering Facility: [facility] Address: [address] [place] [address] Performed By: #### 5 7021-8 ####[facility] LABIA [id number] [address] [place] Lymphocytes/100 WBC (Bld) 6.3 % Normal [facility] Comment on above: Order Comment: Speci men Type: BLOOD SPECIMENOrdering Facility: [facility] Address: [address] [place] [address] Performed By: #### 5 7021-8 ####[facility] LABIA [id number] [address] [place] MCH (RBC) [Entitic mass] 34.9 pg High 26.0-34.0 [facility] Comment on above: Order Comment: Speci men Type: BLOOD SPECIMENOrdering Facility: [facility] Address: [address] [place] [address] Performed By: #### 5 7021-8 ####[facility] LABIA [id number] [place] [address] [place] MCHC (RBC) [Mass/Vol] 37.5 g/dL High 30.5-36.0 [facility] Comment on above: Order Comment: Speci men Type: BLOOD SPECIMENOrdering Facility: [facility] Address: [address] [place], [place] [address] Performed By: #### 5 7021-8 ####[facility] LABIA [id number] [place] [address] [place] MCV (RBC) [Entitic vol] 93.1 fL Normal 80.0-100.0 [facility] Comment on above: Order Comment: Speci men Type: BLOOD SPECIMENOrdering Facility: [facility] Address: [address] [place], [place] [address] Performed By: #### 5 7021-8 ####[facility] LABCLIA [id number] [place] [address] [place] Monocytes (Bld) [#/Vol] 1.78 10*3/uL High <0.87 [facility] Comment on above: Order Comment: Speci men Type: BLOOD SPECIMENOrdering Facility: [facility] Address: [address] [place], [place] [address] Performed By: #### 5 7021-8 ####[facility] LABCLIA [id number] [place] [address] [place] Monocytes/100 WBC (Bld) 10.6 % Normal [facility] Comment on above: Order Comment: Speci men Type: BLOOD SPECIMENOrdering Facility: [facility] Address: [address] [place], [place] [address] Performed By: #### 5 7021-8 ####[facility] LABCLIA [id number] [place] [address] [place] Neutrophils (Bld) [#/Vol] 11.00 10*3/uL High 1.45-7.50 [facility] Comment on above: Order Comment: Speci men Type: BLOOD SPECIMENOrdering Facility: [facility] Address: [address] [place], [place] [address] Performed By: #### 5 7021-8 ####[facility] LABCLIA [id number] [place] [address] [place] Neutrophils/100 WBC (Bld) 65.7 % Normal [facility] Comment on above: Order Comment: Speci men Type: BLOOD SPECIMENOrdering Facility: [facility] Address: [address] [place], [place] [address] Result Comment: Diff erential confirmed by visual scan of peripheral blood smear slide. Performed By: #### 5 7021-8 ####[facility] LABIA [id number] [address] Nucleated RBC (Bld) [#/Vol] 10*3/uL Normal <0.01 [facility] Comment on above: Order Comment: Speci men Type: BLOOD SPECIMENOrdering Facility: [facility] Address: [address] [place], [place] [address] Performed By: #### 5 7021-8 ####[facility] [id number] [address] [place] Nucleated RBC/100 WBC (Bld) [Ratio] 0.0 /100 WBC Normal [facility] Comment on above: Order Comment: Speci men Type: BLOOD SPECIMENOrdering Facility: [facility] Address: [address] [place], [place] [address] Performed By: #### 5 7021-8 ####[facility] [id number] [address] STATES [facility] Ovalocytes LM Ql (Bld) Few Normal [facility] Comment on above: Order Comment: Speci men Type: BLOOD SPECIMENOrdering Facility: [facility] Address: [address] [place], [place] [address] Performed By: #### 5 7021-8 ####[facility] LABIA [id number] [address] [place] Platelet mean volume (Bld) [Entitic vol] 10.9 fL Normal 9.0-12.7 [facility] Comment on above: Order Comment: Speci men Type: BLOOD SPECIMENOrdering Facility: [facility] Address: [address] [place], [place] [address] Performed By: #### 5 7021-8 ####[facility] LABIA [id number] [place] [address] [place] Platelets (Bld) [#/Vol] 43 10*3/uL Low 150-400 [facility] Comment on above: Order Comment: Speci men Type: BLOOD SPECIMENOrdering Facility: [facility] Address: [address] [place] [address] Result Comment: No c lot detected. Performed By: #### 5 7021-8 ####[facility] LABCLIA [id number] [place] [address] [place] Platelets Estimate (Bld) [#/Vol] Decreased Normal [facility] Comment on above: Order Comment: Speci men Type: BLOOD SPECIMENOrdering Facility: [facility] Address: [address] [place] [address] Performed By: #### 5 7021-8 ####[facility] LABCLIA [id number] [place] [address] [place] Polychromasia LM Ql (Bld) Slight Normal [facility] Comment on above: Order Comment: Speci men Type: BLOOD SPECIMENOrdering Facility: [facility] Address: [address] [place], [place] [address] Performed By: #### 5 7021-8 ####[facility] LABCLIA [id number] [place] [address] [place] RBC (Bld) [#/Vol] 3.21 10*6/uL Low 4.20-6.00 [facility] Comment on above: Order Comment: Speci men Type: BLOOD SPECIMENOrdering Facility: [facility] Address: [address] [place], [place] [address] Performed By: #### 5 7021-8 ####[facility] LABCLIA [id number] [place] [address] [place] RED CELL MORPH Reviewed: see result s of individual morphologies Normal [facility] Comment on above: Order Comment: Speci men Type: BLOOD SPECIMENOrdering Facility: [facility] Address: [address] Performed By: #### 5 7021-8 ####[facility] LABCLIA [id number] [place] [address] [place] WBC (Bld) [#/Vol] 16.76 10*3/uL High 3.70-11.00 [facility] Comment on above: Order Comment: Speci men Type: BLOOD SPECIMENOrdering Facility: [facility] Address: [address] Performed By: #### 5 7021-8 ####[facility] LABIA [id number] [place] [address] [place] CONSULT PROGon 04-10-2023 CONSULT PROG Normal [facility] CONSULT PROG Normal [facility] metabolic 2000 panelon 04-10-2023 Albumin [Mass/Vol] 2.6 g/dL Low 3.9-4.9 [facility] Comment on above: Order Comment: Speci men Type: BLOOD SPECIMENOrdering Facility: [facility] Address: [address] [place], [place] [address] Performed By: #### 1 9123-9, 2777-, 22398-9 ####[facility] LABIA [id number] [place] [address] [place] ALP [Catalytic activity/Vol] 103 U/L Normal 38-113 [facility] Comment on above: Order Comment: Speci men Type: BLOOD SPECIMENOrdering Facility: [facility] Address: [address] Performed By: #### 1 9123-9, 2777-1, 95920-4 ####[facility] LABCLIA [id number] [place] [address] [place] ALT [Catalytic activity/Vol] 60 U/L High 10-54 [facility] Comment on above: Order Comment: Speci men Type: BLOOD SPECIMENOrdering Facility: [facility] Address: [address] [place], [place] [address] Performed By: #### 1 9123-9, 27702-21, 46576-4 ####[facility] LABCLIA [id number] [place] [address] [place] Anion gap [Moles/Vol] 8 mmol/L Low 9-18 [facility] Comment on above: Order Comment: Speci men Type: BLOOD SPECIMENOrdering Facility: [facility] Address: [address] [place] [address] Performed By: #### 1 9123-9, 27702-21, ####[facility] LABCLIA [id number] [place] [address] [place] AST [Catalytic activity/Vol] 42 U/L High 14-40 [facility] Comment on above: Order Comment: Speci men Type: BLOOD SPECIMENOrdering Facility: [facility] Address: [address] [place] [address] Performed By: #### 1 9123-9, 27702-21, 59974-4 ####[facility] LABIA [id number] [place] [address] [place] Bilirubin [Mass/Vol] 1.3 mg/dL Normal 0.2-1.3 [facility] Comment on above: Order Comment: Speci men Type: BLOOD SPECIMENOrdering Facility: [facility] Address: [address] [place], [place] [address] Performed By: #### 1 9123-9, 27702-21, 81634-0 ####[facility] LABIA [id number] [place] [address] [place] Calcium [Mass/Vol] 7.7 mg/dL Low 8.5-10.2 [facility] Comment on above: Order Comment: Speci men Type: BLOOD SPECIMENOrdering Facility: [facility] Address: [address] [place] [address] Performed By: #### 1 9123-9, 2777-, 76052-0 ####[facility] LABIA [id number] [place] [address] [place] Chloride [Moles/Vol] 94 mmol/L Low 97-105 [facility] Comment on above: Order Comment: Speci men Type: BLOOD SPECIMENOrdering Facility: [facility] Address: [address] [place] [address] Performed By: #### 1 9123-9, 2777, 57551-9 ####[facility] LABIA [id number] [place] [address] [place] CO2 [Moles/Vol] 23 mmol/L Normal 22-30 [facility] Comment on above: Order Comment: Speci men Type: BLOOD SPECIMENOrdering Facility: [facility] Address: [address] [place] [address] Performed By: #### 1 9123-9, 2777, 94901-5 ####[facility] LABIA [id number] [place] [address] [place] Creatinine [Mass/Vol] 2.02 mg/dL High 0.73-1.22 [facility] Comment on above: Order Comment: Speci men Type: BLOOD SPECIMENOrdering Facility: [facility] Address: [address] [place] [address] Performed By: #### 1 9123-9, 2777-, 42566-6 ####[facility] LABIA [id number] [place] [address] [place] Creatinine and Glomerular filtration rate.predicted panel (S/P/Bld) 42 mL/min/1.73m??? Low >=60 [facility] Comment on above: Order Comment: Speci men Type: BLOOD SPECIMENOrdering Facility: [facility] Address: [address] [place] [address] [place] [address] Result Comment: Karma mated Glomerular Filtration Rate (eGFR) is calculated using the 2020 CKD-EPI creatinine equation. This equation utilizes serum creatinine, sex, and age as parameters. The creatinine assay has traceable calibration to isotope dilution-mass spectrometry. Refer to KDIGO guidelines for clinical interpretation. In patients with unstable renal function, e.g. those with acute kidney injury, the eGFR may not accurately reflect actual GFR. Performed By: #### 1 9123-9, 27702-21, ####[facility] LABCLIA [id number] [place] [address] [place] Glucose [Mass/Vol] 103 mg/dL High 74-99 [facility] Comment on above: Order Comment: Specсергей kennedy Type: BLOOD SPECIMENOrdering Facility: [facility] Address: [address] Result Comment: The [place] [employer] (ADA) provides guidance for cutoff values for fasting glucose and random glucose. The ADA defines fasting as no caloric intake for at least 8 hours. Fasting plasma glucose results between 100 to 125 mg/dL indicate increased risk for diabetes (prediabetes).Fasting plasma glucose results greater than or equal to 126 mg/dL meet the criteria for diagnosis of diabetes. In the absence of unequivocal hyperglycemia, results should be confirmed by repeat testing. In a patient with classic symptoms of hyperglycemia or hyperglycemic crisis, random plasma glucose results greater than or equal to 200 mg/dL meet the criteria for diagnosis of diabetes.Reference: Standards of Medical Care in Diabetes 2016, [place] [employer]. Diabetes Care. 2016.39(Suppl 1). Performed By: #### 1 9123-9, 27702-21, 80669-6 ####[facility] LABIA [id number] [place] [address] [place] Potassium [Moles/Vol] 4.5 mmol/L Normal 3.7-5.1 [facility] Comment on above: Order Comment: Speci men Type: BLOOD SPECIMENOrdering Facility: [facility] Address: [address] [id number] Performed By: #### 1 9123-9, 2777-, 24034-5 ####[facility] LABCLIA [id number] [place] [address] [place] Protein [Mass/Vol] 4.6 g/dL Low 6.3-8.0 [facility] Comment on above: Order Comment: Speci men Type: BLOOD SPECIMENOrdering Facility: [facility] Address: [address] [place] [address] Performed By: #### 1 9123-9, 2777-, 74926-0 ####[facility] LABCLIA [id number] [place] [address] [place] Sodium [Moles/Vol] 125 mmol/L Low 136-144 [facility] Comment on above: Order Comment: Speci men Type: BLOOD SPECIMENOrdering Facility: [facility] Address: [address] [place] [address] Performed By: #### 1 9123-9, 27702-21, 00844-7 ####[facility] LABIA [id number] [place] [address] [place] Urea nitrogen [Mass/Vol] 73 mg/dL High 9-24 [facility] Comment on above: Order Comment: Speci men Type: BLOOD SPECIMENOrdering Facility: [facility] Address: [address] [place] [address] Performed By: #### 1 9123-9, 2777, 97383-7 ####[facility] LABCLIA [id number] [place] [address] [place] Magnesium SerPl-mCncon 04-10 Magnesium [Mass/Vol] 2.8 mg/dL High 1.7-2.3 [facility] Comment on above: Order Comment: Speci men Type: BLOOD SPECIMENOrdering Facility: [facility] Address: [address] [place] [address] Performed By: #### 1 9123-9, 2777-1, 60670-3 ####[facility] LABIA [id number] [place] [address] [place] NUTRITIONon 04-10-2023 NUTRITION Normal [facility] PT EDon 04-10-2023 PT ED Normal [facility] PT panel Coag (PPP)on 2022 INR Coag (PPP) [Relative time] 1.1 {INR} Normal 0.9-1.3 [facility] Comment on above: Order Comment: Speci men Type: BLOOD SPECIMENOrdering Facility: [facility] Address: [address] [place] [address] Result Comment: Binta min K Antagonist (VKA) Therapeutic Range: INR 2 to 3 (Target INR of 2.5)Note: For patients treated with VKA drugs, such as warfarin, the [place] [employer] 2012 Guideline recommends a therapeutic INR range of 2 to 3 (target INR of 2.5). This recommendation includes high-risk patients with antiphospholipid syndrome with previous arterial or venous thromboembolism, current-generation mechanical or bioprosthetic aortic heart valve replacement.Note: Patients with mechanical aortic valve replacement and additional risk factors for thromboembolic events (atrial fibrillation, previous thromboembolism, LV dysfunction, hypercoagulable conditions) or an older generation mechanical AVR (i.e., ball in-Cage) or any mechanical MVR should have a INR therapeutic range of 2.5 to 3.5 (target INR of 3).Robyn GH, et al. Chest 2012, 141:7S-47SNishdino RA, et al. JAC 2017, 70: 252-289 Performed By: #### 3 4528-0, 75440-0 ####[facility] LABIA [id number] [place] [address] [place] PT Coag (PPP) [Time] 11.4 s Normal 9.7-13.0 [facility] Comment on above: Order Comment: Speci men Type: BLOOD SPECIMENOrdering Facility: [facility] Address: [address] [place] [id number] Performed By: #### 3 4528-0, 11699-4 ####[facility] LABCLIA [id number] [address] OF [facility] Phosphate SerPl-mCncon 04-10 Phosphate [Mass/Vol] 3.5 mg/dL Normal 2.7-4.8 [facility] Comment on above: Order Comment: Speci men Type: BLOOD SPECIMENOrdering Facility: [facility] Address: [address] [place] [address] Performed By: #### 1 9123-9, 2777-1, 68143-5 ####[facility] LABCLIA [id number] [address] THERAPY NTon 04-10-2023 THERAPY NT Normal [facility] TYPE + SCREENon 04-10-2023 ABO A Normal [facility] Comment on above: Order Comment: Speci men Type: BLOOD SPECIMENOrdering Facility: [facility] Address: [address] [place] [address] Performed By: #### T SCR ####[facility] BANKIA [id number] [address] HISTORICAL AB SCR STATUS Negative Normal [facility] Comment on above: Order Comment: Speci men Type: BLOOD SPECIMENOrdering Facility: [facility] Address: [address] [place] [address] Performed By: #### T SCR ####[facility] BLOOD BANKCLIA [id number] [address] Rh Nom (Bld) Positive Normal [facility] Comment on above: Order Comment: Speci men Type: BLOOD SPECIMENOrdering Facility: [facility] Address: [address] [place] [address] Performed By: #### T SCR ####[facility]LO[facility] BANKIA [id number] [address] OF [facility] TYPE AND SCREEN EXPIRATION 04/13/2023 23:59 Normal [facility] Comment on above: Order Comment: Speci men Type: BLOOD SPECIMENOrdering Facility: [facility] Address: [address] [place] [phone] Performed By: #### T SCR ####CC [facility] BLOOD BANKCLMS [id number] [address] [place] Tacrolimus Bld-mCncon 2022 Tacrolimus (Bld) [Mass/Vol] 8.8 ng/mL Normal 5.0-20.0 [facility] Comment on above: Order Comment: Speci men Type: BLOOD SPECIMENOrdering Facility: [facility] Address: [address] [address] Result Comment: Jennifer vidualized target levels for a given patient will depend on many factors (including the type of organ transplant, time since transplantation, concurrent medications, and other clinical factors), and should be assessed by those health care providers experienced in the management of immunosuppression. Reference ranges and high/low indicator flags are provided as general guidelines only. The treating physician must determine appropriate target levels/dosing based on the specific clinical situation. Test performed by chemiluminescent immunoassay using Dickson Alinity i. Performed By: #### 1 1253-2 ####[facility] LABIA [id number] [address] [place] aPTT PPPon 04-10-2023 aPTT Coag (PPP) [Time] 23.1 s Normal 23.0-32.4 [facility] Comment on above: Order Comment: Speci men Type: BLOOD SPECIMENOrdering Facility: [facility] Address: [address] [place] [address] Performed By: #### 3 4528-0, 42445-6 ####[facility] LABIA [id number] [address] [place] CASE MANAGEMon 04-09-2023 CASE MANAGEM Normal [facility] CBC W Auto Differential pane l (Bld)on 04-09-2023 Basophils (Bld) [#/Vol] 10*3/uL Normal <0.11 [facility] Comment on above: Order Comment: Speci men Type: BLOOD SPECIMENOrdering Facility: [facility] Address: [address] [place] [address] Performed By: #### 5 7021-8 ####[facility] LABCLIA [id number] [place] [address] [place] Basophils/100 WBC (Bld) 0.1 % Normal [facility] Comment on above: Order Comment: Speci men Type: BLOOD SPECIMENOrdering Facility: [facility] Address: [address] [place] [address] Performed By: #### 5 7021-8 ####[facility] LABCLIA [id number] [place] [address] [place] Differential cell count method Nom (Bld) Auto Normal [facility] Comment on above: Order Comment: Speci men Type: BLOOD SPECIMENOrdering Facility: [facility] Address: [address] [place], [place] [address] Performed By: #### 5 7021-8 ####[facility] LABCLIA [id number] [place] [address] [place] Eosinophils (Bld) [#/Vol] 0.13 10*3/uL Normal <0.46 [facility] Comment on above: Order Comment: Speci men Type: BLOOD SPECIMENOrdering Facility: [facility] Address: [address] Performed By: #### 5 7021-8 ####[facility] LABCLIA [id number] [place] [address] [place] Eosinophils/100 WBC (Bld) 1.1 % Normal [facility] Comment on above: Order Comment: Speci men Type: BLOOD SPECIMENOrdering Facility: [facility] Address: [address] [place], [place] [address] Performed By: #### 5 7021-8 ####[facility] LABIA [id number] [place] [address] [place] Erythrocyte distribution width (RBC) [Ratio] 14.5 % Normal 11.5-15.0 [facility] Comment on above: Order Comment: Speci men Type: BLOOD SPECIMENOrdering Facility: [facility] Address: [address] [place], [place] [address] Performed By: #### 5 7021-8 ####[facility] LABIA [id number] [place] [address] [place] Hematocrit (Bld) [Volume fraction] 26.2 % Low 39.0-51.0 [facility] Comment on above: Order Comment: Speci men Type: BLOOD SPECIMENOrdering Facility: [facility] Address: [address] [place], [place] [address] Performed By: #### 5 7021-8 ####[facility] LABIA [id number] [place] [address] [place] Hemoglobin (Bld) [Mass/Vol] 9.7 g/dL Low 13.0-17.0 [facility] Comment on above: Order Comment: Speci men Type: BLOOD SPECIMENOrdering Facility: [facility] Address: [address] [place], [place] [address] Performed By: #### 5 7021-8 ####[facility] LABIA [id number] [place] [address] [place] Immature granulocytes (Bld) [#/Vol] 0.09 10*3/uL Normal <0.10 [facility] Comment on above: Order Comment: Speci men Type: BLOOD SPECIMENOrdering Facility: [facility] Address: [address] [place], [place] [address] Performed By: #### 5 7021-8 ####[facility] LABIA [id number] [place] [address] [place] Immature granulocytes/100 WBC (Bld) 0.8 % Normal [facility] Comment on above: Order Comment: Speci men Type: BLOOD SPECIMENOrdering Facility: [facility] Address: [address] [place] [address] Performed By: #### 5 7021-8 ####[facility] LABCLIA [id number] [place] [address] [place] Lymphocytes (Bld) [#/Vol] 0.63 10*3/uL Low 1.00-4.00 [facility] Comment on above: Order Comment: Speci men Type: BLOOD SPECIMENOrdering Facility: [facility] Address: [address] [place] [address] Performed By: #### 5 7021-8 ####[facility] LABCLIA [id number] [place] [address] [place] Lymphocytes/100 WBC (Bld) 5.3 % Normal [facility] Comment on above: Order Comment: Speci men Type: BLOOD SPECIMENOrdering Facility: [facility] Address: [address] [place] [address] Performed By: #### 5 7021-8 ####[facility] LABCLIA [id number] [place] [address] [place] MCH (RBC) [Entitic mass] 34.3 pg High 26.0-34.0 [facility] Comment on above: Order Comment: Speci men Type: BLOOD SPECIMENOrdering Facility: [facility] Address: [address] [place], [place] [address] Performed By: #### 5 7021-8 ####[facility] LABCLIA [id number] [place] [address] [place] MCHC (RBC) [Mass/Vol] 37.0 g/dL High 30.5-36.0 [facility] Comment on above: Order Comment: Speci men Type: BLOOD SPECIMENOrdering Facility: [facility] Address: [address] Performed By: #### 5 7021-8 ####[facility] LABCLIA [id number] [place] [address] [place] MCV (RBC) [Entitic vol] 92.6 fL Normal 80.0-100.0 [facility] Comment on above: Order Comment: Speci men Type: BLOOD SPECIMENOrdering Facility: [facility] Address: [address] Performed By: #### 5 7021-8 ####[facility] LABCLIA [id number] [place] [address] [place] Monocytes (Bld) [#/Vol] 1.07 10*3/uL High <0.87 [facility] Comment on above: Order Comment: Speci men Type: BLOOD SPECIMENOrdering Facility: [facility] Address: [address] Performed By: #### 5 7021-8 ####[facility] LABCLIA [id number] [place] [address] [place] Monocytes/100 WBC (Bld) 9.0 % Normal [facility] Comment on above: Order Comment: Speci men Type: BLOOD SPECIMENOrdering Facility: [facility] Address: [address] Performed By: #### 5 7021-8 ####[facility] LABCLIA [id number] [place] [address] [place] Neutrophils (Bld) [#/Vol] 9.98 10*3/uL High 1.45-7.50 [facility] Comment on above: Order Comment: Speci men Type: BLOOD SPECIMENOrdering Facility: [facility] Address: [address] Performed By: #### 5 7021-8 ####[facility] LABCLIA [id number] [place] [address] [place] Neutrophils/100 WBC (Bld) 83.7 % Normal [facility] Comment on above: Order Comment: Speci men Type: BLOOD SPECIMENOrdering Facility: [facility] Address: [address] [place] [address] Performed By: #### 5 7021-8 ####[facility] LABCLIA [id number] [place] [address] [place] Nucleated RBC (Bld) [#/Vol] 10*3/uL Normal <0.01 [facility] Comment on above: Order Comment: Speci men Type: BLOOD SPECIMENOrdering Facility: [facility] Address: [address] [place], [place] [address] Performed By: #### 5 7021-8 ####[facility] LABCLIA [id number] [place] [address] [place] Nucleated RBC/100 WBC (Bld) [Ratio] 0.0 /100 WBC Normal [facility] Comment on above: Order Comment: Speci men Type: BLOOD SPECIMENOrdering Facility: [facility] Address: [address] [place], [place] [address] Performed By: #### 5 7021-8 ####[facility] LABCLIA [id number] [place] [address] [place] Platelet mean volume (Bld) [Entitic vol] 12.7 fL Normal 9.0-12.7 [facility] Comment on above: Order Comment: Speci men Type: BLOOD SPECIMENOrdering Facility: [facility] Address: [address] [place], [place] [address] Performed By: #### 5 7021-8 ####[facility] LABCLIA [id number] [place] [address] [place] Platelets (Bld) [#/Vol] 36 10*3/uL Low 150-400 [facility] Comment on above: Order Comment: Speci men Type: BLOOD SPECIMENOrdering Facility: [facility] Address: [address] [place] [address] Result Comment: No c lot detected.Results checked and verified. Performed By: #### 5 7021-8 ####[facility] LABIA [id number] [place] [address] [place] RBC (Bld) [#/Vol] 2.83 10*6/uL Low 4.20-6.00 [facility] Comment on above: Order Comment: Speci men Type: BLOOD SPECIMENOrdering Facility: [facility] Address: [address] [place] [address] Performed By: #### 5 7021-8 ####[facility] LABIA [id number] [place] [address] [place] WBC (Bld) [#/Vol] 11.91 10*3/uL High 3.70-11.00 [facility] Comment on above: Order Comment: Speci men Type: BLOOD SPECIMENOrdering Facility: [facility] Address: [address] [place] [address] Result Comment: No c lot detected.Results checked and verified. Performed By: #### 5 7021-8 ####[facility] [id number] [place] [address] [place] CONSULTon 04-09-2023 CONSULT Normal [facility] CONSULT PROGon 04-09-2023 CONSULT PROG Normal [facility] CONSULT PROG Normal [facility] CRP SerPl-mCncon 04-09-2023 CRP [Mass/Vol] 0.5 mg/dL Normal <0.9 [facility] Comment on above: Order Comment: Speci men Type: BLOOD SPECIMENOrdering Facility: [facility] Address: [address] [place] [address] Performed By: #### 1 988-5, 58806-1, 69043-5, 2777- ####[facility] LABCLIA [id number] [place] [address] [place] Comprehensive metabolic 2000 panelon 04-09-2023 Albumin [Mass/Vol] 2.7 g/dL Low 3.9-4.9 [facility] Comment on above: Order Comment: Speci men Type: BLOOD SPECIMENOrdering Facility: [facility] Address: [address] [place], [place] [address] Performed By: #### 1 988-5, 67931-0, 62074-7, 2776- ####[facility] LABIA [id number] [place] [address] [place] ALP [Catalytic activity/Vol] 103 U/L Normal 38-113 [facility] Comment on above: Order Comment: Speci men Type: BLOOD SPECIMENOrdering Facility: [facility] Address: [address] [place], [place] [address] Performed By: #### 1 988-5, 56926-5, , 2776-08 ####[facility] LABIA [id number] [place] [address] [place] ALT [Catalytic activity/Vol] 58 U/L High 10-54 [facility] Comment on above: Order Comment: Speci men Type: BLOOD SPECIMENOrdering Facility: [facility] Address: [address] [place], [place] [address] Performed By: #### 1 988-5, 13189-3, 79498-8, 2776-08 ####[facility] LABIA [id number] [place] [address] [place] Anion gap [Moles/Vol] 11 mmol/L Normal 9-18 [facility] Comment on above: Order Comment: Speci men Type: BLOOD SPECIMENOrdering Facility: [facility] Address: [address] [place], [place] [address] Performed By: #### 1 988-5, 37886-5, , 2776-08 ####[facility] LABCLIA [id number] [place] [address] [place] AST [Catalytic activity/Vol] 40 U/L Normal 14-40 [facility] Comment on above: Order Comment: Speci men Type: BLOOD SPECIMENOrdering Facility: [facility] Address: [address] [place] [address] Performed By: #### 1 988-5, 59003-2, , 2776-08 ####[facility] LABIA [id number] [place] [address] [place] Bilirubin [Mass/Vol] 1.5 mg/dL High 0.2-1.3 [facility] Comment on above: Order Comment: Speci men Type: BLOOD SPECIMENOrdering Facility: [facility] Address: [address] [place] [address] Performed By: #### 1 988-5, 61552-3, , 2776-08 ####[facility] LABIA [id number] [place] [address] [place] Calcium [Mass/Vol] 7.7 mg/dL Low 8.5-10.2 [facility] Comment on above: Order Comment: Speci men Type: BLOOD SPECIMENOrdering Facility: [facility] Address: [address] [place], [place] [address] Performed By: #### 1 988-5, 37632-5, , 2776-08 ####[facility]IA [id number] [place] [address] [place] Chloride [Moles/Vol] 92 mmol/L Low 97-105 [facility] Comment on above: Order Comment: Speci men Type: BLOOD SPECIMENOrdering Facility: [facility] Address: [address] [place] [address] Performed By: #### 1 988-5, 02569-1, , 2776-08 ####[facility] LABCLIA [id number] [place] [address] [place] CO2 [Moles/Vol] 21 mmol/L Low 22-30 [facility] Comment on above: Order Comment: Speci men Type: BLOOD SPECIMENOrdering Facility: [facility] Address: [address] [place] [address] Performed By: #### 1 988-5, 22325-8, , 2776-08 ####[facility]IA [id number] [place] [address] [place] Creatinine [Mass/Vol] 2.02 mg/dL High 0.73-1.22 [facility] Comment on above: Order Comment: Speci men Type: BLOOD SPECIMENOrdering Facility: [facility] Address: [address] [place] [address] Performed By: #### 1 988-5, 61626-8, , 2776-08 ####[facility] LABIA [id number] [address] [place] Creatinine and Glomerular filtration rate.predicted panel (S/P/Bld) 42 mL/min/1.73m??? Low >=60 [facility] Comment on above: Order Comment: Speci men Type: BLOOD SPECIMENOrdering Facility: [facility] Address: [address] [place] [address] Result Comment: Karma mated Glomerular Filtration Rate (eGFR) is calculated using the 2020 CKD-EPI creatinine equation. This equation utilizes serum creatinine, sex, and age as parameters. The creatinine assay has traceable calibration to isotope dilution-mass spectrometry. Refer to KDIGO guidelines for clinical interpretation. In patients with unstable renal function, e.g. those with acute kidney injury, the eGFR may not accurately reflect actual GFR. Performed By: #### 1 988-5, 66747-1, 91886-6, 2776-08 ####[facility] LABCLIA [id number] [address] [address] [place] Glucose [Mass/Vol] 128 mg/dL High 74-99 [facility] Comment on above: Order Comment: Speci men Type: BLOOD SPECIMENOrdering Facility: [facility] Address: [address] [place], [place] [address] Result Comment: The [place] [employer] (ADA) provides guidance for cutoff values for fasting glucose and random glucose. The ADA defines fasting as no caloric intake for at least 8 hours. Fasting plasma glucose results between 100 to 125 mg/dL indicate increased risk for diabetes (prediabetes).Fasting plasma glucose results greater than or equal to 126 mg/dL meet the criteria for diagnosis of diabetes. In the absence of unequivocal hyperglycemia, results should be confirmed by repeat testing. In a patient with classic symptoms of hyperglycemia or hyperglycemic crisis, random plasma glucose results greater than or equal to 200 mg/dL meet the criteria for diagnosis of diabetes.Reference: Standards of Medical Care in Diabetes 2016, [place] [employer]. Diabetes Care. 2016.39(Suppl 1). Performed By: #### 1 988-5, 82866-1, 60588-9, 2777-1 ####[facility] LABCLIA [id number] [place] [address] [place] Potassium [Moles/Vol] 4.8 mmol/L Normal 3.7-5.1 [facility] Comment on above: Order Comment: Speci men Type: BLOOD SPECIMENOrdering Facility: [facility] Address: [address] [place], [place] [id number] Performed By: #### 1 988-5, 72953-1, 19115-1, 2777-1 ####[facility] LABIA [id number] [place] [address] [place] Protein [Mass/Vol] 4.4 g/dL Low 6.3-8.0 [facility] Comment on above: Order Comment: Speci men Type: BLOOD SPECIMENOrdering Facility: [facility] Address: [address] [place] [address] Performed By: #### 1 988-5, 26635-2, 38937-4, 2777-1 ####[facility] LABCLIA [id number] [place] [address] [place] Sodium [Moles/Vol] 124 mmol/L Low 136-144 [facility] Comment on above: Order Comment: Speci men Type: BLOOD SPECIMENOrdering Facility: [facility] Address: [address] [place] [address] Performed By: #### 1 988-5, 79997-2, 86359-1, 2776- ####[facility]IA [id number] [place] [address] [place] Urea nitrogen [Mass/Vol] 83 mg/dL High 9-24 [facility] Comment on above: Order Comment: Speci men Type: BLOOD SPECIMENOrdering Facility: [facility] Address: [address] [place] [address] Performed By: #### 1 988-5, 36316-2, 86928-2, 2776- ####[facility] [id number] [place] [address] [place] Magnesium SerPl-mCncon 04-09 Magnesium [Mass/Vol] 2.8 mg/dL High 1.7-2.3 [facility] Comment on above: Order Comment: Speci men Type: BLOOD SPECIMENOrdering Facility: [facility] Address: [address] [place], [place] [phone] Performed By: #### 1 988-5, 57369-4, 15206-5, 2777-1 ####[facility] LABIA [id number] [place] [address] [place] PT panel Coag (PPP)on 2022 INR Coag (PPP) [Relative time] 1.2 {INR} Normal 0.9-1.3 [facility] Comment on above: Order Comment: Rasta kennedy Type: BLOOD SPECIMENOrdering Facility: [facility] Address: [place] [address] Result Comment: Binta min K Antagonist (VKA) Therapeutic Range: INR 2 to 3 (Target INR of 2.5)Note: For patients treated with VKA drugs, such as warfarin, the [place] [employer] 2012 Guideline recommends a therapeutic INR range of 2 to 3 (target INR of 2.5). This recommendation includes high-risk patients with antiphospholipid syndrome with previous arterial or venous thromboembolism, current-generation mechanical or bioprosthetic aortic heart valve replacement.Note: Patients with mechanical aortic valve replacement and additional risk factors for thromboembolic events (atrial fibrillation, previous thromboembolism, LV dysfunction, hypercoagulable conditions) or an older generation mechanical AVR (i.e., ball in-Cage) or any mechanical MVR should have a INR therapeutic range of 2.5 to 3.5 (target INR of 3).Robyn GH, et al. Chest 2012, 141:7S-47SNishdino RA, et al. [facility] 2017, 70: 252-289 Performed By: #### 3 4528-0, 71268-8 ####[facility] [id number] [place] [address] [place] PT Coag (PPP) [Time] 12.3 s Normal 9.7-13.0 [facility] Comment on above: Order Comment: Rasta kennedy Type: BLOOD SPECIMENOrdering Facility: [facility] Address: [place] [address] Performed By: #### 3 4528-0, 38149-0 ####[facility] [id number] [place] [address] [place] Phosphate SerPl-mCncon 04-09 Phosphate [Mass/Vol] 5.1 mg/dL High 2.7-4.8 [facility] Comment on above: Order Comment: Rasta kennedy Type: BLOOD SPECIMENOrdering Facility: [facility] Address: [place] [address] Performed By: #### 1 988-5, 03818-8, 77497-8, 2777-1 ####[facility]IA [id number] [place] [address] [place] Tacrolimus Bld-mCncon 2022 Tacrolimus (Bld) [Mass/Vol] 9.9 ng/mL Normal 5.0-20.0 [facility] Comment on above: Order Comment: Rasta kennedy Type: BLOOD SPECIMENOrdering Facility: [facility] Address: [address] [place] [address] Result Comment: Jennifer vidualized target levels for a given patient will depend on many factors (including the type of organ transplant, time since transplantation, concurrent medications, and other clinical factors), and should be assessed by those health care providers experienced in the management of immunosuppression. Reference ranges and high/low indicator flags are provided as general guidelines only. The treating physician must determine appropriate target levels/dosing based on the specific clinical situation. Test performed by chemiluminescent immunoassay using Dickson Alinity i. Performed By: #### 1 1253-2 ####[facility] [id number] [address] [place] aPTT PPPon 04-09-2023 aPTT Coag (PPP) [Time] 24.5 s Normal 23.0-32.4 [facility] Comment on above: Order Comment: Rasta kennedy Type: BLOOD SPECIMENOrdering Facility: [facility] Address: [address] [place] [address] Performed By: #### 3 4528-0, 24747-0 ####[facility] [id number] [address] [place] CBC W Auto Differential pane l (Bld)on 04-08-2023 Basophils (Bld) [#/Vol] 10*3/uL Normal <0.11 [facility] Comment on above: Order Comment: Rasta kennedy Type: BLOOD SPECIMENOrdering Facility: [facility] Address: [address] [place], [place] [phone] Performed By: #### 5 7021-8 ####[facility] LABCLIA [id number] [address] [place] Basophils/100 WBC (Bld) 0.1 % Normal [facility] Comment on above: Order Comment: Speci men Type: BLOOD SPECIMENOrdering Facility: [facility] Address: [address] [place], [place] [address] Performed By: #### 5 7021-8 ####[facility] LABCLIA [id number] [place] [address] [place] Differential cell count method Nom (Bld) Auto Normal [facility] Comment on above: Order Comment: Speci men Type: BLOOD SPECIMENOrdering Facility: [facility] Address: [address] [place], [place] [address] Performed By: #### 5 7021-8 ####[facility]CLIA [id number] [address] [place] Eosinophils (Bld) [#/Vol] 0.07 10*3/uL Normal <0.46 [facility] Comment on above: Order Comment: Speci men Type: BLOOD SPECIMENOrdering Facility: [facility] Address: [address] [place], [place] [address] Performed By: #### 5 7021-8 ####[facility] LABCLIA [id number] [address] [place] [facility] Eosinophils/100 WBC (Bld) 0.5 % Normal [facility] Comment on above: Order Comment: Speci men Type: BLOOD SPECIMENOrdering Facility: [facility] Address: [address] [place] [address] Performed By: #### 5 7021-8 ####[facility]CLIA [id number] [address] [place] Erythrocyte distribution width (RBC) [Ratio] 14.3 % Normal 11.5-15.0 [facility] Comment on above: Order Comment: Speci men Type: BLOOD SPECIMENOrdering Facility: [facility] Address: [address] [place] [address] Performed By: #### 5 7021-8 ####[facility] LABCLIA [id number] [place] [address] [place] Hematocrit (Bld) [Volume fraction] 30.2 % Low 39.0-51.0 [facility] Comment on above: Order Comment: Speci men Type: BLOOD SPECIMENOrdering Facility: [facility] Address: [address] [place] [address] Performed By: #### 5 7021-8 ####[facility]CL[facility] [id number] [place] [address] [place] Hemoglobin (Bld) [Mass/Vol] 11.0 g/dL Low 13.0-17.0 [facility] Comment on above: Order Comment: Speci men Type: BLOOD SPECIMENOrdering Facility: [facility] Address: [address] [place], [place] [address] Performed By: #### 5 7021-8 ####[facility] [id number] [place] [address] [place] Immature granulocytes (Bld) [#/Vol] 0.14 10*3/uL High <0.10 [facility] Comment on above: Order Comment: Speci men Type: BLOOD SPECIMENOrdering Facility: [facility] [facility] Address: [address] Performed By: #### 5 7021-8 ####[facility] LABCLIA [id number] [place] [address] [place] Immature granulocytes/100 WBC (Bld) 1.0 % Normal [facility] Comment on above: Order Comment: Speci men Type: BLOOD SPECIMENOrdering Facility: [facility] Address: [address] [place] [address] Performed By: #### 5 7021-8 ####[facility] LABCLIA [id number] [place] [address] [place] Lymphocytes (Bld) [#/Vol] 0.77 10*3/uL Low 1.00-4.00 [facility] Comment on above: Order Comment: Speci men Type: BLOOD SPECIMENOrdering Facility: [facility] Address: [address] Performed By: #### 5 7021-8 ####[facility] LABCLIA [id number] [address] [place] Lymphocytes/100 WBC (Bld) 5.8 % Normal [facility] Comment on above: Order Comment: Speci men Type: BLOOD SPECIMENOrdering Facility: [facility] Address: [address] [place], [place] [address] Performed By: #### 5 7021-8 ####[facility] LABIA [id number] [place] [address] [place] MCH (RBC) [Entitic mass] 33.6 pg Normal 26.0-34.0 [facility] Comment on above: Order Comment: Speci men Type: BLOOD SPECIMENOrdering Facility: [facility] Address: [address] Performed By: #### 5 7021-8 ####[facility] LABCLIA [id number] [place] [address] [place] MCHC (RBC) [Mass/Vol] 36.4 g/dL High 30.5-36.0 [facility] Comment on above: Order Comment: Speci men Type: BLOOD SPECIMENOrdering Facility: [facility] Address: [address] Performed By: #### 5 7021-8 ####[facility] LABCLIA [id number] [place] [address] [place] MCV (RBC) [Entitic vol] 92.4 fL Normal 80.0-100.0 [facility] Comment on above: Order Comment: Speci men Type: BLOOD SPECIMENOrdering Facility: [facility] Address: [address] [place] [address] Performed By: #### 5 7021-8 ####[facility] LABCLIA [id number] [place] [address] [place] Monocytes (Bld) [#/Vol] 0.74 10*3/uL Normal <0.87 [facility] Comment on above: Order Comment: Speci men Type: BLOOD SPECIMENOrdering Facility: [facility] Address: [address] [place] [address] Performed By: #### 5 7021-8 ####[facility] LABCLIA [id number] [address] [place] Monocytes/100 WBC (Bld) 5.5 % Normal [facility] Comment on above: Order Comment: Speci men Type: BLOOD SPECIMENOrdering Facility: [facility] Address: [address] [place], [place] [address] Performed By: #### 5 7021-8 ####[facility] LABIA [id number] [place] [address] [place] Neutrophils (Bld) [#/Vol] 11.66 10*3/uL High 1.45-7.50 [facility] Comment on above: Order Comment: Speci men Type: BLOOD SPECIMENOrdering Facility: [facility] Address: [address] [place], [place] [address] Performed By: #### 5 7021-8 ####[facility] LABCLIA [id number] [place] [address] [place] Neutrophils/100 WBC (Bld) 87.1 % Normal [facility] Comment on above: Order Comment: Speci men Type: BLOOD SPECIMENOrdering Facility: [facility] Address: [address] Performed By: #### 5 7021-8 ####[facility] LABIA [id number] [address] [place] Nucleated RBC (Bld) [#/Vol] 0.02 10*3/uL High <0.01 [facility] Comment on above: Order Comment: Speci men Type: BLOOD SPECIMENOrdering Facility: [facility] Address: [address] Performed By: #### 5 7021-8 ####[facility] LABIA [id number] [address] [place] Nucleated RBC/100 WBC (Bld) [Ratio] 0.1 /100 WBC Normal [facility] Comment on above: Order Comment: Speci men Type: BLOOD SPECIMENOrdering Facility: [facility] Address: [address] Performed By: #### 5 7021-8 ####[facility] LABIA [id number] [place] [address] [place] Platelet mean volume (Bld) [Entitic vol] 12.5 fL Normal 9.0-12.7 [facility] Comment on above: Order Comment: Speci men Type: BLOOD SPECIMENOrdering Facility: [facility] Address: [address] Performed By: #### 5 7021-8 ####[facility] LABIA [id number] [place] [address] [place] Platelets (Bld) [#/Vol] 42 10*3/uL Low 150-400 [facility] Comment on above: Order Comment: Speci men Type: BLOOD SPECIMENOrdering Facility: [facility] Address: [address] [place] [address] Result Comment: No c lot detected. Performed By: #### 5 7021-8 ####[facility] LABCLIA [id number] [place] [address] [place] RBC (Bld) [#/Vol] 3.27 10*6/uL Low 4.20-6.00 [facility] Comment on above: Order Comment: Speci men Type: BLOOD SPECIMENOrdering Facility: [facility] Address: [address] [place] [address] Performed By: #### 5 7021-8 ####[facility] LABCLIA [id number] [place] [address] [place] WBC (Bld) [#/Vol] 13.39 10*3/uL High 3.70-11.00 [facility] Comment on above: Order Comment: Speci men Type: BLOOD SPECIMENOrdering Facility: [facility] Address: [address] [place] [address] Performed By: #### 5 7021-8 ####[facility] LABIA [id number] [place] [address] [place] CONSULTon 04-08-2023 CONSULT Normal [facility] CONSULT PROGon 04-08-2023 CONSULT PROG Normal [facility] CRP SerPl-mCncon 04-08-2023 CRP [Mass/Vol] 1.1 mg/dL High <0.9 [facility] Comment on above: Order Comment: Speci men Type: BLOOD SPECIMENOrdering Facility: [facility] Address: [address] [place] [address] Performed By: #### 1 988-5, 80560-1, HSTNT, 73451-7, 2777-1 ####[facility] LABCLIA [id number] [place] [address] [place] Comprehensive metabolic 2000 panelon 04-08-2023 Albumin [Mass/Vol] 3.2 g/dL Low 3.9-4.9 [facility] Comment on above: Order Comment: Speci men Type: BLOOD SPECIMENOrdering Facility: [facility] Address: [address] Performed By: #### 1 988-5, 90335-9, HSTNT, , 2776- ####[facility] LABCLIA [id number] [place] [address] [place] ALP [Catalytic activity/Vol] 99 U/L Normal 38-113 [facility] Comment on above: Order Comment: Speci men Type: BLOOD SPECIMENOrdering Facility: [facility] Address: [address] Performed By: #### 1 988-5, 32940-7, HSTNT, , 2776-08 ####[facility] [id number] [place] [address] [place] ALT [Catalytic activity/Vol] 74 U/L High 10-54 [facility] Comment on above: Order Comment: Speci men Type: BLOOD SPECIMENOrdering Facility: [facility] Address: [address] [place], [place] [address] Performed By: #### 1 988-5, 90664-4, HSTNT, , 2776-08 ####[facility] LABIA [id number] [place] [address] [place] Anion gap [Moles/Vol] 12 mmol/L Normal 9-18 [facility] Comment on above: Order Comment: Speci men Type: BLOOD SPECIMENOrdering Facility: [facility] Address: [address] Performed By: #### 1 988-5, 38337-6, HSTNT, , 2776- ####[facility] LABCLIA [id number] [place] [address] [place] AST [Catalytic activity/Vol] 48 U/L High 14-40 [facility] Comment on above: Order Comment: Speci men Type: BLOOD SPECIMENOrdering Facility: [facility] Address: [address] [place] [address] Performed By: #### 1 988-5, 86821-9, HSTNT, 75975-1, 2777-1 ####[facility] LABCLIA [id number] [place] [address] [place] Bilirubin [Mass/Vol] 2.2 mg/dL High 0.2-1.3 [facility] Comment on above: Order Comment: Speci men Type: BLOOD SPECIMENOrdering Facility: [facility] Address: [address] [place] [address] Performed By: #### 1 988-5, 88853-9, HSTNT, 29002-6, 2776-1 ####[facility] LABCLIA [id number] [place] [address] [place] Calcium [Mass/Vol] 7.9 mg/dL Low 8.5-10.2 [facility] Comment on above: Order Comment: Speci men Type: BLOOD SPECIMENOrdering Facility: [facility] Address: [address] [place] [address] Performed By: #### 1 988-5, 66429-5, HSTNT, 43091-0, 2776-1 ####[facility] LABCLIA [id number] [place] [address] [place] Chloride [Moles/Vol] 91 mmol/L Low 97-105 [facility] Comment on above: Order Comment: Speci men Type: BLOOD SPECIMENOrdering Facility: [facility] Address: [address] [place] [address] Performed By: #### 1 988-5, 64896-3, HSTNT, 20607-5, 7-1 ####[facility] LABCLIA [id number] [id number] [address] [place] CO2 [Moles/Vol] 21 mmol/L Low 22-30 [facility] Comment on above: Order Comment: Speci men Type: BLOOD SPECIMENOrdering Facility: [facility] Address: [address] [place] [address] Performed By: #### 1 988-5, 97853-2, HSTNT, 37470-6, 2776- ####[facility] LABCLIA [id number] [place] [address] [place] Creatinine [Mass/Vol] 1.67 mg/dL High 0.73-1.22 [facility] Comment on above: Order Comment: Speci men Type: BLOOD SPECIMENOrdering Facility: [facility] Address: [address] [place] [address] Performed By: #### 1 988-5, 11253-2, HSTNT, , 2776-08 ####[facility] LABIA [id number] [place] [address] [place] ESTIMATED GLOMERULAR FILTRATION RATE 52 mL/min/1.73m??? Low >=60 [facility] Comment on above: Order Comment: Rasta kennedy Type: BLOOD SPECIMENOrdering Facility: [facility] Address: [address] [place] [address] Result Comment: Karma mated Glomerular Filtration Rate (eGFR) is calculated using the 2020 CKD-EPI creatinine equation. This equation utilizes serum creatinine, sex, and age as parameters. The creatinine assay has traceable calibration to isotope dilution-mass spectrometry. Refer to KDIGO guidelines for clinical interpretation. In patients with unstable renal function, e.g. those with acute kidney injury, the eGFR may not accurately reflect actual GFR. Performed By: #### 1 988-5, 76412-0, HSTNT, 60656-5, 2776- ####[facility] LABCLIA [id number] [place] [address] [place] Glucose [Mass/Vol] 130 mg/dL High 74-99 [facility] Comment on above: Order Comment: Speci men Type: BLOOD SPECIMENOrdering Facility: [facility] Address: [address] [place], [place] [address] Result Comment: The [place] [employer] (ADA) provides guidance for cutoff values for fasting glucose and random glucose. The ADA defines fasting as no caloric intake for at least 8 hours. Fasting plasma glucose results between 100 to 125 mg/dL indicate increased risk for diabetes (prediabetes).Fasting plasma glucose results greater than or equal to 126 mg/dL meet the criteria for diagnosis of diabetes. In the absence of unequivocal hyperglycemia, results should be confirmed by repeat testing. In a patient with classic symptoms of hyperglycemia or hyperglycemic crisis, random plasma glucose results greater than or equal to 200 mg/dL meet the criteria for diagnosis of diabetes.Reference: Standards of Medical Care in Diabetes 2016, [place] [employer]. Diabetes Care. 2016.39(Suppl 1). Performed By: #### 1 988-5, 13433-9, HSTNT, , 2776-08 ####[facility] LABCLIA [id number] [place] [address] [place] Potassium [Moles/Vol] 4.8 mmol/L Normal 3.7-5.1 [facility] Comment on above: Order Comment: Yuryi brent Type: BLOOD SPECIMENOrdering Facility: [facility] Address: [address] [place], [place] [address] Performed By: #### 1 988-5, 52001-1, HSTNT, , 2776-08 ####[facility] LABCLIA [id number] [place] [address] [place] Protein [Mass/Vol] 5.0 g/dL Low 6.3-8.0 [facility] Comment on above: Order Comment: Yuryi men Type: BLOOD SPECIMENOrdering Facility: [facility] Address: [address] [place], [place] [address] Performed By: #### 1 988-5, 98652-3, HSTNT, , 2776-08 ####[facility] LABCLIA [id number] [address] [address] [place] Sodium [Moles/Vol] 124 mmol/L Low 136-144 [facility] Comment on above: Order Comment: Speci men Type: BLOOD SPECIMENOrdering Facility: [facility] Address: [address] [place] [address] Performed By: #### 1 988-5, 24669-7, HSTNT, 11382-7, 2776- ####[facility] LABCLIA [id number] [place] [address] [place] Urea nitrogen [Mass/Vol] 76 mg/dL High 9-24 [facility] Comment on above: Order Comment: Speci men Type: BLOOD SPECIMENOrdering Facility: [facility] Address: [address] [place] [address] Performed By: #### 1 988-5, 57887-6, HSTNT, , 2776- ####[facility] LABIA [id number] [place] [address] [place] HIGH SENSITIVITY TROPONIN To n 04-08-2023 HIGH SENSITIVITY AZRA 91 ng/L High <12 [facility] Comment on above: Order Comment: Speci men Type: BLOOD SPECIMENOrdering Facility: [facility] Address: [address] [place] [address] Result Comment: When assessing risk for acute coronary syndromes: In patients undergoing blood draw greater than or equal to 2 hours from symptom onset, with history of very low to moderate risk and non-ischemic ECG, an initial hs-Troponin T less than 12 ng/L AND a 1 hour delta hs-Troponin T less than 3 ng/L should be considered very low risk for 30 day MACE. Performed By: #### 1 988-5, 93738-6, HSTNT, 06524-2, 2776-1 ####[facility] LABCLIA [id number] [place] [address] [place] Magnesium SerPl-mCncon 04-08 Magnesium [Mass/Vol] 2.8 mg/dL High 1.7-2.3 [facility] Comment on above: Order Comment: Speci men Type: BLOOD SPECIMENOrdering Facility: [facility] Address: [address] [place] [address] Performed By: #### 1 9123-9, 2777-1 ####[facility] LABCLIA [id number] [address] Magnesium [Mass/Vol] 2.7 mg/dL High 1.7-2.3 [facility] Comment on above: Order Comment: Speci men Type: BLOOD SPECIMENOrdering Facility: [facility] Address: [address] [place] [address] Performed By: #### 1 988-5, 79883-3, HSTNT, 38726-8, 2777-1 ####[facility] LABCLIA [id number] [address] [place] Osmolality SerPlon Osmolality [Osmolality] 286 mosm/kg Normal 275-300 [facility] Comment on above: Order Comment: Speci men Type: BLOOD SPECIMENOrdering Facility: [facility] Address: [address] [place] [address] Performed By: #### 2 692-2 ####[facility] LABCLIA [id number] [address] [place] Osmolality Uron 04-08-2023 Osmolality (U) [Osmolality] 547 mosm/kg Normal 50-1200 [facility] Comment on above: Order Comment: Speci men Type: URINE SPECIMENOrdering Facility: [facility] Address: [address] [place], [place] [address] Performed By: #### 2 695-5 ####[facility] LABCLIA [id number] [address] [id number] [address] [place] PT panel Coag (PPP)on 2022 INR Coag (PPP) [Relative time] 1.2 {INR} Normal 0.9-1.3 [facility] Comment on above: Order Comment: Rasta kennedy Type: BLOOD SPECIMENOrdering Facility: [facility] Address: [place] [address] Result Comment: Binta min K Antagonist (VKA) Therapeutic Range: INR 2 to 3 (Target INR of 2.5)Note: For patients treated with VKA drugs, such as warfarin, the [place] [employer] 2012 Guideline recommends a therapeutic INR range of 2 to 3 (target INR of 2.5). This recommendation includes high-risk patients with antiphospholipid syndrome with previous arterial or venous thromboembolism, current-generation mechanical or bioprosthetic aortic heart valve replacement.Note: Patients with mechanical aortic valve replacement and additional risk factors for thromboembolic events (atrial fibrillation, previous thromboembolism, LV dysfunction, hypercoagulable conditions) or an older generation mechanical AVR (i.e., ball in-Cage) or any mechanical MVR should have a INR therapeutic range of 2.5 to 3.5 (target INR of 3).Robyn GH, et al. Chest 2012, 141:7S-47SNishimura RA, et al. [facility] 2017, 70: 252-289 Performed By: #### 3 4528-0, 03993-9 ####[facility] LABIA [id number] [address] [address] [place] PT Coag (PPP) [Time] 12.7 s Normal 9.7-13.0 [facility] Comment on above: Order Comment: Rasta kennedy Type: BLOOD SPECIMENOrdering Facility: [facility] Address: [place] [address] Performed By: #### 3 4528-0, 90304-0 ####[facility] LABIA [id number] [address] [address] [place] Phosphate SerPl-mCncon 04-08 Phosphate [Mass/Vol] 5.0 mg/dL High 2.7-4.8 [facility] Comment on above: Order Comment: Speci men Type: BLOOD SPECIMENOrdering Facility: [facility] Address: [place] [id number] Performed By: #### 1 9123-9, 2777-1 ####[facility] LABCLIA [id number] [place] [address] [place] Phosphate [Mass/Vol] 5.4 mg/dL High 2.7-4.8 [facility] Comment on above: Order Comment: Speci men Type: BLOOD SPECIMENOrdering Facility: [facility] Address: [place] [address] Performed By: #### 1 988-5, 30752-7, HSTNT, 37236-2, 277- ####[facility] LABIA [id number] [address] [place] SOCIAL WORKon 04-08-2023 SOCIAL WORK Normal [facility] THERAPY NTon 04-08-2023 THERAPY NT Normal [facility] Tacrolimus Bld-mCncon 2022 Tacrolimus (Bld) [Mass/Vol] 9.6 ng/mL Normal 5.0-20.0 [facility] Comment on above: Order Comment: Speci men Type: BLOOD SPECIMENOrdering Facility: [facility] Address: [place] [address] Result Comment: Jennifer vidualized target levels for a given patient will depend on many factors (including the type of organ transplant, time since transplantation, concurrent medications, and other clinical factors), and should be assessed by those health care providers experienced in the management of immunosuppression. Reference ranges and high/low indicator flags are provided as general guidelines only. The treating physician must determine appropriate target levels/dosing based on the specific clinical situation. Test performed by chemiluminescent immunoassay using SWYF Alinity i. Performed By: #### 1 1253-2 ####[facility] LABCLIA [id number] [place] [address] [place] XR CHEST 1V FRONTAL PORTon 0 04-08-2023 XR CHEST 1V FRONTAL PORT Normal [facility] aPTT PPPon 04-08-2023 aPTT Coag (PPP) [Time] 25.1 s Normal 23.0-32.4 [facility] Comment on above: Order Comment: Speci men Type: BLOOD SPECIMENOrdering Facility: [facility] Address: [address] [place] [address] Performed By: #### 3 4528-0, 34715-3 ####[facility] LABCLIA [id number] [place] [address] [place] CBC W Auto Differential pane l (Bld)on 04-07-2023 Basophils (Bld) [#/Vol] 0.00 10*3/uL Normal <0.11 [facility] Comment on above: Order Comment: Speci men Type: BLOOD SPECIMENOrdering Facility: [facility] Address: [address] [place] [address] Performed By: #### 5 7021-8 ####[facility] LABCLIA [id number] [place] [address] [place] Basophils/100 WBC (Bld) 0.0 % Normal [facility] Comment on above: Order Comment: Speci men Type: BLOOD SPECIMENOrdering Facility: [facility] Address: [address] [place] [address] Performed By: #### 5 7021-8 ####[facility] LABCLIA [id number] [place] [address] [place] Differential cell count method Nom (Bld) Manual Normal [facility] Comment on above: Order Comment: Speci men Type: BLOOD SPECIMENOrdering Facility: [facility] Address: [address] [place] [address] Performed By: #### 5 7021-8 ####[facility] LABCLIA [id number] [place] [address] [place] Eosinophils (Bld) [#/Vol] 0.00 10*3/uL Normal <0.46 [facility] Comment on above: Order Comment: Speci men Type: BLOOD SPECIMENOrdering Facility: [facility] Address: [address] [place] [address] Performed By: #### 5 7021-8 ####[facility] LABCLIA [id number] [address] [place] Eosinophils/100 WBC (Bld) 0.0 % Normal [facility] Comment on above: Order Comment: Speci men Type: BLOOD SPECIMENOrdering Facility: [facility] Address: [address] [place] [address] Performed By: #### 5 7021-8 ####[facility] LABIA [id number] [address] [place] Erythrocyte distribution width (RBC) [Ratio] 14.5 % Normal 11.5-15.0 [facility] Comment on above: Order Comment: Speci men Type: BLOOD SPECIMENOrdering Facility: [facility] Address: [address] [place], [place] [address] Performed By: #### 5 7021-8 ####[facility] LABIA [id number] 73 [address] [place] Hematocrit (Bld) [Volume fraction] 30.8 % Low 39.0-51.0 [facility] Comment on above: Order Comment: Speci men Type: BLOOD SPECIMENOrdering Facility: [facility] Address: [address] [place], [place] [address] Performed By: #### 5 7021-8 ####[facility] LABIA [id number] [place] [address] [place] Hemoglobin (Bld) [Mass/Vol] 11.1 g/dL Low 13.0-17.0 [facility] Comment on above: Order Comment: Speci men Type: BLOOD SPECIMENOrdering Facility: [facility] Address: [address] Performed By: #### 5 7021-8 ####[facility] LABCLIA [id number] [place] [address] [place] Lymphocytes (Bld) [#/Vol] 0.22 10*3/uL Low 1.00-4.00 [facility] Comment on above: Order Comment: Speci men Type: BLOOD SPECIMENOrdering Facility: [facility] Address: [address] Performed By: #### 5 7021-8 ####[facility] LABCLIA [id number] [address] [place] Lymphocytes/100 WBC (Bld) 0.9 % Normal [facility] Comment on above: Order Comment: Speci men Type: BLOOD SPECIMENOrdering Facility: [facility] Address: [address] [place], [place] [address] Performed By: #### 5 7021-8 ####[facility] LABCLIA [id number] [place] [address] [place] MCH (RBC) [Entitic mass] 33.9 pg Normal 26.0-34.0 [facility] Comment on above: Order Comment: Speci men Type: BLOOD SPECIMENOrdering Facility: [facility] Address: [address] [place], [place] [address] Performed By: #### 5 7021-8 ####[facility] LABCLIA [id number] [place] [address] [place] MCHC (RBC) [Mass/Vol] 36.0 g/dL Normal 30.5-36.0 [facility] Comment on above: Order Comment: Speci men Type: BLOOD SPECIMENOrdering Facility: [facility] Address: [address] [place], [place] [address] Performed By: #### 5 7021-8 ####[facility] LABCLIA [id number] [place] [address] [place] MCV (RBC) [Entitic vol] 94.2 fL Normal 80.0-100.0 [facility] Comment on above: Order Comment: Speci men Type: BLOOD SPECIMENOrdering Facility: [facility] Address: [address] [place] [address] Performed By: #### 5 7021-8 ####[facility] LABCLIA [id number] [place] [address] [place] Monocytes (Bld) [#/Vol] 1.45 10*3/uL High <0.87 [facility] Comment on above: Order Comment: Speci men Type: BLOOD SPECIMENOrdering Facility: [facility] Address: [address] [place], [place] [address] Performed By: #### 5 7021-8 ####[facility] LABCLIA [id number] [place] [address] [place] Monocytes/100 WBC (Bld) 6.0 % Normal [facility] Comment on above: Order Comment: Speci men Type: BLOOD SPECIMENOrdering Facility: [facility] Address: [address] [place], [place] [address] Performed By: #### 5 7021-8 ####[facility] LABCLIA [id number] [place] [address] [place] Neutrophils (Bld) [#/Vol] 22.45 10*3/uL High 1.45-7.50 [facility] Comment on above: Order Comment: Speci men Type: BLOOD SPECIMENOrdering Facility: [facility] Address: [address] [place], [place] [address] Performed By: #### 5 7021-8 ####[facility] LABCLIA [id number] [place] [address] [place] Neutrophils/100 WBC (Bld) 93.1 % Normal [facility] Comment on above: Order Comment: Speci men Type: BLOOD SPECIMENOrdering Facility: [facility] Address: [address] Performed By: #### 5 7021-8 ####[facility] LABCLIA [id number] [address] [place] [facility] Nucleated RBC (Bld) [#/Vol] 10*3/uL Normal <0.01 [facility] Comment on above: Order Comment: Speci men Type: BLOOD SPECIMENOrdering Facility: [facility] Address: [address] Performed By: #### 5 7021-8 ####[facility] LABCLIA [id number] [place] [address] [place] Nucleated RBC/100 WBC (Bld) [Ratio] 0.0 /100 WBC Normal [facility] Comment on above: Order Comment: Speci men Type: BLOOD SPECIMENOrdering Facility: [facility] Address: [address] Performed By: #### 5 7021-8 ####[facility] LABCLIA [id number] [place] [address] [place] Ovalocytes LM Ql (Bld) Few Normal [facility] Comment on above: Order Comment: Speci men Type: BLOOD SPECIMENOrdering Facility: [facility] Address: [address] Performed By: #### 5 7021-8 ####[facility] LABCLIA [id number] [place] [address] [place] Platelet mean volume (Bld) [Entitic vol] 11.6 fL Normal 9.0-12.7 [facility] Comment on above: Order Comment: Speci men Type: BLOOD SPECIMENOrdering Facility: [facility] Address: [address] Performed By: #### 5 7021-8 ####[facility] LABCLIA [id number] [place] [address] [place] Platelets (Bld) [#/Vol] 54 10*3/uL Low 150-400 [facility] Comment on above: Order Comment: Speci men Type: BLOOD SPECIMENOrdering Facility: [facility] Address: [address] [place] [address] Result Comment: Resu lts checked and verified.No clot detected. Performed By: #### 5 7021-8 ####[facility] LABCLIA [id number] [place] [address] [place] Platelets Estimate (Bld) [#/Vol] Decreased Normal [facility] Comment on above: Order Comment: Speci men Type: BLOOD SPECIMENOrdering Facility: [facility] Address: [address] [place] [address] Performed By: #### 5 7021-8 ####[facility] LABCLIA [id number] [place] [address] [place] Polychromasia LM Ql (Bld) Slight Normal [facility] Comment on above: Order Comment: Speci men Type: BLOOD SPECIMENOrdering Facility: [facility] Address: [address] [place] [address] Performed By: #### 5 7021-8 ####[facility] LABCLIA [id number] [place] [address] [place] RBC (Bld) [#/Vol] 3.27 10*6/uL Low 4.20-6.00 [facility] Comment on above: Order Comment: Speci men Type: BLOOD SPECIMENOrdering Facility: [facility] Address: [address] [place] [address] Performed By: #### 5 7021-8 ####[facility] LABCLIA [id number] [place] [address] [place] RBC FRAGMENTS Few Abnormal None Seen [facility] Comment on above: Order Comment: Speci men Type: BLOOD SPECIMENOrdering Facility: [facility] Address: [address] Performed By: #### 5 7021-8 ####[facility] LABCLIA [id number] [place] [address] [place] RED CELL MORPH Reviewed: see result s of individual morphologies Normal [facility] Comment on above: Order Comment: Speci men Type: BLOOD SPECIMENOrdering Facility: [facility] Address: [address] Performed By: #### 5 7021-8 ####[facility] LABIA [id number] [place] [address] [place] WBC (Bld) [#/Vol] 24.11 10*3/uL High 3.70-11.00 [facility] Comment on above: Order Comment: Speci men Type: BLOOD SPECIMENOrdering Facility: [facility] Address: [address] Performed By: #### 5 7021-8 ####[facility] LABIA [id number] [place] [address] [place] CNPNon 04-07-2023 CNPN Normal [facility] CONSULTon 04-07-2023 CONSULT Normal [facility] CRP SerPl-mCncon 04-07-2023 CRP [Mass/Vol] 1.5 mg/dL High <0.9 [facility] Comment on above: Order Comment: Speci men Type: BLOOD SPECIMENOrdering Facility: [facility] Address: [address] Performed By: #### 2 4323-8, 1987-5, 44718-4, 2777-1 ####[facility] LABCLIA [id number] [place] [address] [place] Comprehensive metabolic 2000 panelon 04-07-2023 Albumin [Mass/Vol] 2.9 g/dL Low 3.9-4.9 [facility] Comment on above: Order Comment: Speci men Type: BLOOD SPECIMENOrdering Facility: [facility] Address: [address] [place] [address] Performed By: #### 2 4323-8, HSTNT, 10494-8 ####[facility] LABCLIA [id number] [place] [address] [place] ALP [Catalytic activity/Vol] 79 U/L Normal 38-113 [facility] Comment on above: Order Comment: Speci men Type: BLOOD SPECIMENOrdering Facility: [facility] Address: [address] [place] [address] Performed By: #### 2 4323-8, HSTNT, 56671-3 ####[facility] LABCLIA [id number] [place] [address] [place] ALT [Catalytic activity/Vol] 82 U/L High 10-54 [facility] Comment on above: Order Comment: Speci men Type: BLOOD SPECIMENOrdering Facility: [facility] Address: [address] [place] [address] Performed By: #### 2 4323-8, HSTNT, 43278-9 ####[facility] LABCLIA [id number] [place] [address] [place] Anion gap [Moles/Vol] 12 mmol/L Normal 9-18 [facility] Comment on above: Order Comment: Speci men Type: BLOOD SPECIMENOrdering Facility: [facility] Address: [address] [place], [place] [address] Performed By: #### 2 4323-8, HSTNT, 12290-6 ####[facility] LABCLIA [id number] [place] [address] [place] AST [Catalytic activity/Vol] 69 U/L High 14-40 [facility] Comment on above: Order Comment: Speci men Type: BLOOD SPECIMENOrdering Facility: [facility] Address: [address] [place] [id number] Performed By: #### 2 4323-8, HSTNT, 54407-0 ####[facility] LABCLIA [id number] [place] [address] [place] Bilirubin [Mass/Vol] 2.1 mg/dL High 0.2-1.3 [facility] Comment on above: Order Comment: Speci men Type: BLOOD SPECIMENOrdering Facility: [facility] Address: [address] [place] [address] Performed By: #### 2 4323-8, HSTNT, 28204-2 ####[facility] LABCLIA [id number] [place] [address] [place] Calcium [Mass/Vol] 7.9 mg/dL Low 8.5-10.2 [facility] Comment on above: Order Comment: Speci men Type: BLOOD SPECIMENOrdering Facility: [facility] Address: [address] [place] [address] Performed By: #### 2 4323-8, HSTNT, 36008-3 ####[facility] LABCLIA [id number] [place] [address] [place] Chloride [Moles/Vol] 94 mmol/L Low 97-105 [facility] Comment on above: Order Comment: Speci men Type: BLOOD SPECIMENOrdering Facility: [facility] Address: [address] [place] [id number] Performed By: #### 2 4323-8, HSTNT, 94341-8 ####[facility] LABCLIA [id number] [place] [address] [place] CO2 [Moles/Vol] 20 mmol/L Low 22-30 [facility] Comment on above: Order Comment: Speci men Type: BLOOD SPECIMENOrdering Facility: [facility] Address: [address] [place] [address] Performed By: #### 2 4323-8, HSTNT, 04402-6 ####[facility] LABIA [id number] [address] [place] Creatinine [Mass/Vol] 1.64 mg/dL High 0.73-1.22 [facility] Comment on above: Order Comment: Rasta men Type: BLOOD SPECIMENOrdering Facility: [facility] Address: [address] [place] [address] Performed By: #### 2 4323-8, HSTNT, 47339-4 ####[facility] LABIA [id number] [place] [address] [place] ESTIMATED GLOMERULAR FILTRATION RATE 54 mL/min/1.73m??? Low >=60 [facility] Comment on above: Order Comment: Rasta kennedy Type: BLOOD SPECIMENOrdering Facility: [facility] Address: [address] [place] [address] Result Comment: Karma mated Glomerular Filtration Rate (eGFR) is calculated using the 2020 CKD-EPI creatinine equation. This equation utilizes serum creatinine, sex, and age as parameters. The creatinine assay has traceable calibration to isotope dilution-mass spectrometry. Refer to KDIGO guidelines for clinical interpretation. In patients with unstable renal function, e.g. those with acute kidney injury, the eGFR may not accurately reflect actual GFR. Performed By: #### 2 4323-8, HSTNT, 72982-0 ####[facility] LABIA [id number] [place] [address] [place] Glucose [Mass/Vol] 135 mg/dL High 74-99 [facility] Comment on above: Order Comment: Yuryi men Type: BLOOD SPECIMENOrdering Facility: [facility] Address: [address] [place] [address] Result Comment: The [place] [employer] (ADA) provides guidance for cutoff values for fasting glucose and random glucose. The ADA defines fasting as no caloric intake for at least 8 hours. Fasting plasma glucose results between 100 to 125 mg/dL indicate increased risk for diabetes (prediabetes).Fasting plasma glucose results greater than or equal to 126 mg/dL meet the criteria for diagnosis of diabetes. In the absence of unequivocal hyperglycemia, results should be confirmed by repeat testing. In a patient with classic symptoms of hyperglycemia or hyperglycemic crisis, random plasma glucose results greater than or equal to 200 mg/dL meet the criteria for diagnosis of diabetes.Reference: Standards of Medical Care in Diabetes 2016, [place] [employer]. Diabetes Care. 2016.39(Suppl 1). Performed By: #### 2 4323-8, HSTNT, 41176-6 ####[facility] LABCLIA [id number] [place] [address] [place] Potassium [Moles/Vol] 4.5 mmol/L Normal 3.7-5.1 [facility] Comment on above: Order Comment: Speci men Type: BLOOD SPECIMENOrdering Facility: [facility] Address: [address] [place] [address] Performed By: #### 2 4323-8, HSTNT, 97435-7 ####[facility] LABCLIA [id number] [place] [address] [place] Protein [Mass/Vol] 5.2 g/dL Low 6.3-8.0 [facility] Comment on above: Order Comment: Speci men Type: BLOOD SPECIMENOrdering Facility: [facility] Address: [address] Performed By: #### 2 4323-8, HSTNT, 09031-0 ####[facility] LABCLIA [id number] [place] [address] [place] Sodium [Moles/Vol] 126 mmol/L Low 136-144 [facility] Comment on above: Order Comment: Speci men Type: BLOOD SPECIMENOrdering Facility: [facility] Address: [address] [place] [address] Performed By: #### 2 4323-8, HSTNT, 07602-0 ####[facility] LABCLIA [id number] [place] [address] [place] Urea nitrogen [Mass/Vol] 67 mg/dL High 9-24 [facility] Comment on above: Order Comment: Speci men Type: BLOOD SPECIMENOrdering Facility: [facility] Address: [address] [place] [address] Performed By: #### 2 4323-8, HSTNT, 31910-3 ####[facility] LABCLIA [id number] [place] [address] [place] Albumin [Mass/Vol] 3.1 g/dL Low 3.9-4.9 [facility] Comment on above: Order Comment: Speci men Type: BLOOD SPECIMENOrdering Facility: [facility] Address: [address] [place] [address] Performed By: #### 2 4328, 1987-12, , 2776-08 ####[facility] LABCLIA [id number] [place] [address] [place] ALP [Catalytic activity/Vol] 80 U/L Normal 38-113 [facility] Comment on above: Order Comment: Speci men Type: BLOOD SPECIMENOrdering Facility: [facility] Address: [address] [place], [place] [address] Performed By: #### 2 4323-8, 1987-12, , 2776-08 ####[facility] LABCLIA [id number] [place] [address] [place] ALT [Catalytic activity/Vol] 85 U/L High 10-54 [facility] Comment on above: Order Comment: Speci men Type: BLOOD SPECIMENOrdering Facility: [facility] Address: [address] [place], [place] [address] Performed By: #### 2 4323-8, 1987-12, , 2776-08 ####[facility] LABCLIA [id number] [place] [address] [place] Anion gap [Moles/Vol] 13 mmol/L Normal 9-18 [facility] Comment on above: Order Comment: Speci men Type: BLOOD SPECIMENOrdering Facility: [facility] Address: [address] [place] [address] Performed By: #### 2 432-8, 1987-12, , 2776-08 ####[facility] LABCLIA [id number] [place] [address] [place] AST [Catalytic activity/Vol] 78 U/L High 14-40 [facility] Comment on above: Order Comment: Speci men Type: BLOOD SPECIMENOrdering Facility: [facility] Address: [address] [place] [address] Performed By: #### 2 4328, 1987-12, , 2776-08 ####[facility] LABCLIA [id number] [place] [address] [place] Bilirubin [Mass/Vol] 2.1 mg/dL High 0.2-1.3 [facility] Comment on above: Order Comment: Speci men Type: BLOOD SPECIMENOrdering Facility: [facility] Address: [address] [place] [address] Performed By: #### 2 4328, 1987-12, , 2776-08 ####[facility] LABCLIA [id number] [place] [address] [place] Calcium [Mass/Vol] 7.9 mg/dL Low 8.5-10.2 [facility] Comment on above: Order Comment: Speci men Type: BLOOD SPECIMENOrdering Facility: [facility] Address: [address] [place], [place] [address] Performed By: #### 2 4328, 1987-12, , 2776-08 ####[facility] LABCLIA [id number] [place] [address] [place] Chloride [Moles/Vol] 94 mmol/L Low 97-105 [facility] Comment on above: Order Comment: Speci men Type: BLOOD SPECIMENOrdering Facility: [facility] Address: [address] [place] [address] Performed By: #### 2 432-8, 1987-12, , 2776-08 ####[facility] LABIA [id number] [place] [id number] [place] CO2 [Moles/Vol] 18 mmol/L Low 22-30 [facility] Comment on above: Order Comment: Speci men Type: BLOOD SPECIMENOrdering Facility: [facility] Address: [address] [place] [address] Performed By: #### 2 432-8, 1987-12, , 2776-08 ####[facility] LABIA [id number] [place] [address] [place] Creatinine [Mass/Vol] 1.57 mg/dL High 0.73-1.22 [facility] Comment on above: Order Comment: Speci men Type: BLOOD SPECIMENOrdering Facility: [facility] Address: [address] [place] [address] Performed By: #### 2 4328, 1987-12, , 2776-08 ####[facility] LABIA [id number] [place] [address] [place] ESTIMATED GLOMERULAR FILTRATION RATE 56 mL/min/1.73m??? Low >=60 [facility] Comment on above: Order Comment: Speci men Type: BLOOD SPECIMENOrdering Facility: [facility] Address: [address] [place] [address] Result Comment: Karma mated Glomerular Filtration Rate (eGFR) is calculated using the 2020 CKD-EPI creatinine equation. This equation utilizes serum creatinine, sex, and age as parameters. The creatinine assay has traceable calibration to isotope dilution-mass spectrometry. Refer to KDIGO guidelines for clinical interpretation. In patients with unstable renal function, e.g. those with acute kidney injury, the eGFR may not accurately reflect actual GFR. Performed By: #### 2 4323-03, 1987-12, , 2776-08 ####[facility] LABCLIA [id number] [address] [address] [place] Glucose [Mass/Vol] 141 mg/dL High 74-99 [facility] Comment on above: Order Comment: Rasta kennedy Type: BLOOD SPECIMENOrdering Facility: [facility] Address: [address] [place] [address] Result Comment: The [place] Diabetes [employer] (ADA) provides guidance for cutoff values for fasting glucose and random glucose. The ADA defines fasting as no caloric intake for at least 8 hours. Fasting plasma glucose results between 100 to 125 mg/dL indicate increased risk for diabetes (prediabetes).Fasting plasma glucose results greater than or equal to 126 mg/dL meet the criteria for diagnosis of diabetes. In the absence of unequivocal hyperglycemia, results should be confirmed by repeat testing. In a patient with classic symptoms of hyperglycemia or hyperglycemic crisis, random plasma glucose results greater than or equal to 200 mg/dL meet the criteria for diagnosis of diabetes.Reference: Standards of Medical Care in Diabetes 2016, [place] [employer]. Diabetes Care. 2016.39(Suppl 1). Performed By: #### 2 4323-03, 1987-12, , 2776-08 ####[facility] LABCLIA [id number] [place] [id number] [place] Potassium [Moles/Vol] 4.6 mmol/L Normal 3.7-5.1 [facility] Comment on above: Order Comment: Rasta kennedy Type: BLOOD SPECIMENOrdering Facility: [facility] Address: [address] [place] [address] Performed By: #### 2 4323-03, 1987-12, , 2776-08 ####[facility] LABCLIA [id number] [place] [address] [place] Protein [Mass/Vol] 5.2 g/dL Low 6.3-8.0 [facility] Comment on above: Order Comment: Speci men Type: BLOOD SPECIMENOrdering Facility: [facility] Address: [address] [place], [place] [id number] Performed By: #### 2 8, 1987-12, , 2776-08 ####[facility] LABCLIA [id number] [place] [address] [place] Sodium [Moles/Vol] 125 mmol/L Low 136-144 [facility] Comment on above: Order Comment: Speci men Type: BLOOD SPECIMENOrdering Facility: [facility] Address: [address] [place] [address] Performed By: #### 2 8, 1987-12, , 2776-08 ####[facility] LABCLIA [id number] [place] [address] [place] Urea nitrogen [Mass/Vol] 66 mg/dL High 9-24 [facility] Comment on above: Order Comment: Speci men Type: BLOOD SPECIMENOrdering Facility: [facility] Address: [address] [place], [place] [id number] Performed By: #### 2 4328, 1987-12, , 2776-08 ####[facility] LABIA [id number] [place] [address] [place] ECG COMPLETEon 04-07-2023 ECG COMPLETE Normal [facility] HIGH SENSITIVITY TROPONIN To n 04-07-2023 HIGH SENSITIVITY AZRA 121 ng/L High <12 [facility] Comment on above: Order Comment: Speci men Type: BLOOD SPECIMENOrdering Facility: [facility] Address: [address] [place], [place] [address] Result Comment: When assessing risk for acute coronary syndromes: In patients undergoing blood draw greater than or equal to 2 hours from symptom onset, with history of very low to moderate risk and non-ischemic ECG, an initial hs-Troponin T less than 12 ng/L AND a 1 hour delta hs-Troponin T less than 3 ng/L should be considered very low risk for 30 day MACE. Performed By: #### 2 4323-8, HSTNT, 89218-8 ####[facility] LABCLIA [id number] [place] [address] [place] Magnesium SerPl-mCncon 04-07 Magnesium [Mass/Vol] 2.4 mg/dL High 1.7-2.3 [facility] Comment on above: Order Comment: Speci men Type: BLOOD SPECIMENOrdering Facility: [facility] Address: [address] [place] [address] Performed By: #### 2 4323-8, 1987-, 79183-7, 2777-1 ####[facility] [id number] [address] [place] Osmolality Uron 04-07-2023 Osmolality (U) [Osmolality] 645 mosm/kg Normal 50-1200 [facility] Comment on above: Order Comment: Speci men Type: URINE SPECIMENOrdering Facility: [facility] Address: [address] [place] [address] Performed By: #### 2 695-5 ####[facility] [id number] [address] [place] PT panel Coag (PPP)on 2022 INR Coag (PPP) [Relative time] 1.3 {INR} Normal 0.9-1.3 [facility] Comment on above: Order Comment: Speci men Type: BLOOD SPECIMENOrdering Facility: [facility] Address: [address] [place] [address] Result Comment: Binta min K Antagonist (VKA) Therapeutic Range: INR 2 to 3 (Target INR of 2.5)Note: For patients treated with VKA drugs, such as warfarin, the [place] [employer] 2012 Guideline recommends a therapeutic INR range of 2 to 3 (target INR of 2.5). This recommendation includes high-risk patients with antiphospholipid syndrome with previous arterial or venous thromboembolism, current-generation mechanical or bioprosthetic aortic heart valve replacement.Note: Patients with mechanical aortic valve replacement and additional risk factors for thromboembolic events (atrial fibrillation, previous thromboembolism, LV dysfunction, hypercoagulable conditions) or an older generation mechanical AVR (i.e., ball in-Cage) or any mechanical MVR should have a INR therapeutic range of 2.5 to 3.5 (target INR of 3).Robyn ALFORD, et al. Chest 2012, 141:7S-47SNishdino RA, et al. [facility] 2017, 70: 252-289 Performed By: #### 3 4528-0, 35351-5 ####[facility] LABCLIA [id number] [place] [address] [place] PT Coag (PPP) [Time] 13.5 s High 9.7-13.0 [facility] Comment on above: Order Comment: Speci men Type: BLOOD SPECIMENOrdering Facility: [facility] Address: [address] [place] [address] Performed By: #### 3 4528-0, 70796-4 ####[facility] LABIA [id number] [place] [address] [place] Phosphate SerPl-mCncon 04-07 Phosphate [Mass/Vol] 4.8 mg/dL Normal 2.7-4.8 [facility] Comment on above: Order Comment: Speci men Type: BLOOD SPECIMENOrdering Facility: [facility] Address: [address] [id number] Performed By: #### 2 4323-8, 1987-, 94524-2, 2777-1 ####[facility] LABIA [id number] [place] [address] [place] Procalcitonin SerPl-mCncon 0 04-07-2023 Procalcitonin [Mass/Vol] 4.14 ng/mL High <0.09 [facility] Comment on above: Order Comment: Speci men Type: BLOOD SPECIMENOrdering Facility: [facility] Address: [address] [place] [address] Result Comment: For a guided interpretation of test results, please visit the Change in Procalcitonin Calculator, [email or web address]. Performed By: #### 3 3959-8 ####[facility] LABCLIA [id number] [address] [place] Procalcitonin [Mass/Vol] 3.45 ng/mL High <0.09 [facility] Comment on above: Order Comment: Speci men Type: BLOOD SPECIMENOrdering Facility: [facility] Address: [address] [place] [address] Result Comment: For a guided interpretation of test results, please visit the Change in Procalcitonin Calculator, [email or web address]. Performed By: #### 2 4323-8, HSTNT, 11917-2 ####[facility] LABIA [id number] [place] [address] [place] Sodium ?Tm Ur-sCncon 023 Sodium Unsp time (U) [Moles/Vol] <20 Normal 14-216 [facility] Comment on above: Order Comment: Speci men Type: URINE SPECIMENOrdering Facility: [facility] Address: [address] [place] [address] Performed By: #### 3 5678-2 ####[facility] LABIA [id number] [place] [address] [place] THERAPY NTon 04-07-2023 THERAPY NT Normal [facility] TYPE + SCREENon 04-07-2023 ABO A Normal [facility] Comment on above: Order Comment: Speci men Type: BLOOD SPECIMENOrdering Facility: [facility] Address: [address] [place] [address] Performed By: #### T SCR ####[facility] BANKCLIA [id number] [address] HISTORICAL AB SCR STATUS Negative Normal [facility] Comment on above: Order Comment: Speci men Type: BLOOD SPECIMENOrdering Facility: [facility] Address: [address] [place] [address] Performed By: #### T SCR ####[facility] BLOOD BANKCLIA [id number] [address] [place] Rh Nom (Bld) Positive Normal [facility] Comment on above: Order Comment: Speci men Type: BLOOD SPECIMENOrdering Facility: [facility] Address: [address] [place] [address] Performed By: #### T SCR ####[facility] BLOOD BANKCLIA [id number] [address] [place] TYPE AND SCREEN EXPIRATION 04/10/2023 23:59 Normal [facility] Comment on above: Order Comment: Speci men Type: BLOOD SPECIMENOrdering Facility: [facility] Address: [address] [place] [address] Performed By: #### T SCR ####[facility] BLOOD BANKCLIA [id number] [address] [place] Tacrolimus Bld-mCncon 2022 Tacrolimus (Bld) [Mass/Vol] 2.8 ng/mL Low 5.0-20.0 [facility] Comment on above: Order Comment: Speci men Type: BLOOD SPECIMENOrdering Facility: [facility] Address: [address] [place] [address] Result Comment: Jennifer vidualized target levels for a given patient will depend on many factors (including the type of organ transplant, time since transplantation, concurrent medications, and other clinical factors), and should be assessed by those health care providers experienced in the management of immunosuppression. Reference ranges and high/low indicator flags are provided as general guidelines only. The treating physician must determine appropriate target levels/dosing based on the specific clinical situation. Test performed by chemiluminescent immunoassay using SWYF Alinity i. Performed By: #### 1 1253-2 ####[facility] LABCLIA [id number] [place] [address] [place] XR CHEST 1V FRONTAL PORTon 0 04-07-2023 XR CHEST 1V FRONTAL PORT Normal [facility] aPTT PPPon 04-07-2023 aPTT Coag (PPP) [Time] 26.4 s Normal 23.0-32.4 [facility] Comment on above: Order Comment: Speci men Type: BLOOD SPECIMENOrdering Facility: [facility] Address: [address] [place] [address] Performed By: #### 3 4528-0, 61592-5 ####[facility] LABIA [id number] [place] [address] [place] ALLIED HEALTHon 04-06-2023 ALLIED HEALTH Normal [facility] CASE MGT INIT ASSESon 2022 CASE MGT INIT ASSES Normal [facility] CBC W Auto Differential pane l (Bld)on 04-06-2023 Basophils (Bld) [#/Vol] 0.04 10*3/uL Normal <0.11 [facility] Comment on above: Order Comment: Speci men Type: BLOOD SPECIMENOrdering Facility: [facility] Address: [address] [place] [place] [address] Performed By: #### 5 7021-8 ####[facility] LABIA [id number] [address] [place] Basophils/100 WBC (Bld) 0.2 % Normal [facility] Comment on above: Order Comment: Speci men Type: BLOOD SPECIMENOrdering Facility: [facility] Address: [address] [place] [address] Performed By: #### 5 7021-8 ####[facility] LABIA [id number] [address] [place] Differential cell count method Nom (Bld) Auto Normal [facility] Comment on above: Order Comment: Speci men Type: BLOOD SPECIMENOrdering Facility: [facility] Address: [address] [place] [address] Performed By: #### 5 7021-8 ####[facility] LABCLIA [id number] [place] [address] [place] Eosinophils (Bld) [#/Vol] 0.03 10*3/uL Normal <0.46 [facility] Comment on above: Order Comment: Speci men Type: BLOOD SPECIMENOrdering Facility: [facility] Address: [address] [place] [address] Performed By: #### 5 7021-8 ####[facility] LABCLIA [id number] [place] [address] [place] Eosinophils/100 WBC (Bld) 0.1 % Normal [facility] Comment on above: Order Comment: Speci men Type: BLOOD SPECIMENOrdering Facility: [facility] Address: [address] [place], [place] [address] Performed By: #### 5 7021-8 ####[facility] LABCLIA [id number] [place] [address] [place] Erythrocyte distribution width (RBC) [Ratio] 14.2 % Normal 11.5-15.0 [facility] Comment on above: Order Comment: Speci men Type: BLOOD SPECIMENOrdering Facility: [facility] Address: [address] [place], [place] [address] Performed By: #### 5 7021-8 ####[facility] LABCLIA [id number] [place] [address] [place] Hematocrit (Bld) [Volume fraction] 28.2 % Low 39.0-51.0 [facility] Comment on above: Order Comment: Speci men Type: BLOOD SPECIMENOrdering Facility: [facility] Address: [address] Performed By: #### 5 7021-8 ####[facility] LABCLIA [id number] [place] [address] [place] Hemoglobin (Bld) [Mass/Vol] 10.1 g/dL Low 13.0-17.0 [facility] Comment on above: Order Comment: Speci men Type: BLOOD SPECIMENOrdering Facility: [facility] Address: [address] Performed By: #### 5 7021-8 ####[facility] LABCLIA [id number] [place] [address] [place] Immature granulocytes (Bld) [#/Vol] 0.23 10*3/uL High <0.10 [facility] Comment on above: Order Comment: Speci men Type: BLOOD SPECIMENOrdering Facility: [facility] Address: [address] Performed By: #### 5 7021-8 ####[facility] LABIA [id number] [place] [address] [place] Immature granulocytes/100 WBC (Bld) 1.0 % Normal [facility] Comment on above: Order Comment: Speci men Type: BLOOD SPECIMENOrdering Facility: [facility] Address: [address] Performed By: #### 5 7021-8 ####[facility] LABCLIA [id number] [place] [address] [place] Lymphocytes (Bld) [#/Vol] 0.67 10*3/uL Low 1.00-4.00 [facility] Comment on above: Order Comment: Speci men Type: BLOOD SPECIMENOrdering Facility: [facility] Address: [address] Performed By: #### 5 7021-8 ####[facility] LABCLIA [id number] [place] [address] [place] Lymphocytes/100 WBC (Bld) 2.9 % Normal [facility] Comment on above: Order Comment: Speci men Type: BLOOD SPECIMENOrdering Facility: [facility] Address: [address] [place] [address] Performed By: #### 5 7021-8 ####[facility] LABIA [id number] [place] [address] [place] MCH (RBC) [Entitic mass] 33.9 pg Normal 26.0-34.0 [facility] Comment on above: Order Comment: Speci men Type: BLOOD SPECIMENOrdering Facility: [facility] Address: [address] [place] [address] Performed By: #### 5 7021-8 ####[facility] [id number] [place] [address] [place] MCHC (RBC) [Mass/Vol] 35.8 g/dL Normal 30.5-36.0 [facility] Comment on above: Order Comment: Speci men Type: BLOOD SPECIMENOrdering Facility: [facility] Address: [address] [place], [place] [address] Performed By: #### 5 7021-8 ####[facility] [id number] [place] [address] [place] MCV (RBC) [Entitic vol] 94.6 fL Normal 80.0-100.0 [facility] Comment on above: Order Comment: Speci men Type: BLOOD SPECIMENOrdering Facility: [facility] Address: [address] [place], [place] [address] Performed By: #### 5 7021-8 ####[facility] LABIA [id number] [place] [address] [place] Monocytes (Bld) [#/Vol] 1.21 10*3/uL High <0.87 [facility] Comment on above: Order Comment: Speci men Type: BLOOD SPECIMENOrdering Facility: [facility] Address: [address] Performed By: #### 5 7021-8 ####[facility] LABCLIA [id number] [place] [address] [place] Monocytes/100 WBC (Bld) 5.2 % Normal [facility] Comment on above: Order Comment: Speci men Type: BLOOD SPECIMENOrdering Facility: [facility] Address: [address] Performed By: #### 5 7021-8 ####[facility] LABIA [id number] [place] [address] [place] Neutrophils (Bld) [#/Vol] 21.30 10*3/uL High 1.45-7.50 [facility] Comment on above: Order Comment: Speci men Type: BLOOD SPECIMENOrdering Facility: [facility] Address: [address] Performed By: #### 5 7021-8 ####[facility] LABCLIA [id number] [place] [address] [place] Neutrophils/100 WBC (Bld) 90.6 % Normal [facility] Comment on above: Order Comment: Speci men Type: BLOOD SPECIMENOrdering Facility: [facility] Address: [address] [place] [address] Performed By: #### 5 7021-8 ####[facility] LABCLIA [id number] [place] [address] [place] Nucleated RBC (Bld) [#/Vol] 10*3/uL Normal <0.01 [facility] Comment on above: Order Comment: Speci men Type: BLOOD SPECIMENOrdering Facility: [facility] Address: [address] Performed By: #### 5 7021-8 ####[facility] LABIA [id number] [place] [address] [place] Nucleated RBC/100 WBC (Bld) [Ratio] 0.0 /100 WBC Normal [facility] Comment on above: Order Comment: Speci men Type: BLOOD SPECIMENOrdering Facility: [facility] Address: [address] [place] [address] Performed By: #### 5 7021-8 ####[facility] LABIA [id number] [place] [address] [place] Platelet mean volume (Bld) [Entitic vol] 10.5 fL Normal 9.0-12.7 [facility] Comment on above: Order Comment: Speci men Type: BLOOD SPECIMENOrdering Facility: [facility] Address: [address] [place] [address] Performed By: #### 5 7021-8 ####[facility] [id number] [place] [address] [place] Platelets (Bld) [#/Vol] 74 10*3/uL Low 150-400 [facility] Comment on above: Order Comment: Speci men Type: BLOOD SPECIMENOrdering Facility: [facility] Address: [address] [place] [address] Result Comment: No c lot detected. Performed By: #### 5 7021-8 ####[facility] [id number] [place] [address] [place] RBC (Bld) [#/Vol] 2.98 10*6/uL Low 4.20-6.00 [facility] Comment on above: Order Comment: Speci men Type: BLOOD SPECIMENOrdering Facility: [facility] Address: [address] [place] [address] Performed By: #### 5 7021-8 ####[facility] LABIA [id number] [place] [address] [place] WBC (Bld) [#/Vol] 23.48 10*3/uL High 3.70-11.00 [facility] Comment on above: Order Comment: Speci men Type: BLOOD SPECIMENOrdering Facility: [facility] Address: [address] [place] [address] Performed By: #### 5 7021-8 ####[facility] LABCLIA [id number] [address] STATES OF [facility] CBC panel Auto (Bld)on 04-06 Erythrocyte distribution width (RBC) [Ratio] 14.5 % Normal 11.5-15.0 [facility] Comment on above: Order Comment: Speci men Type: BLOOD SPECIMENOrdering Facility: [facility] Address: [address] [place] [address] Performed By: #### 5 8410-2 ####[facility] LABIA [id number] [address] [place] Hematocrit (Bld) [Volume fraction] 29.6 % Low 39.0-51.0 [facility] Comment on above: Order Comment: Speci men Type: BLOOD SPECIMENOrdering Facility: [facility] Address: [address] [place] [address] Performed By: #### 5 8410-2 ####[facility] LABCLIA [id number] [place] [address] [place] Hemoglobin (Bld) [Mass/Vol] 10.7 g/dL Low 13.0-17.0 [facility] Comment on above: Order Comment: Speci men Type: BLOOD SPECIMENOrdering Facility: [facility] Address: [address] [place] [address] Performed By: #### 5 8410-2 ####[facility] LABCLIA [id number] [place] [address] [place] MCH (RBC) [Entitic mass] 34.7 pg High 26.0-34.0 [facility] Comment on above: Order Comment: Speci men Type: BLOOD SPECIMENOrdering Facility: [facility] Address: [address] [place], [place] [address] Performed By: #### 5 8410-2 ####[facility] LABCLIA [id number] [address] [place] MCHC (RBC) [Mass/Vol] 36.1 g/dL High 30.5-36.0 [facility] Comment on above: Order Comment: Speci men Type: BLOOD SPECIMENOrdering Facility: [facility] Address: [address] [place] [address] Performed By: #### 5 8410-2 ####[facility] LABIA [id number] [address] [place] MCV (RBC) [Entitic vol] 96.1 fL Normal 80.0-100.0 [facility] Comment on above: Order Comment: Speci men Type: BLOOD SPECIMENOrdering Facility: [facility] Address: [address] [place], [place] [address] Performed By: #### 5 8410-2 ####[facility] LABIA [id number] [place] [address] [place] Nucleated RBC (Bld) [#/Vol] 0.02 10*3/uL High <0.01 [facility] Comment on above: Order Comment: Speci men Type: BLOOD SPECIMENOrdering Facility: [facility] Address: [address] [place], [place] [address] Performed By: #### 5 8410-2 ####[facility] LABIA [id number] [address] [place] Platelet mean volume (Bld) [Entitic vol] 11.2 fL Normal 9.0-12.7 [facility] Comment on above: Order Comment: Speci men Type: BLOOD SPECIMENOrdering Facility: [facility] Address: [address] [address] Performed By: #### 5 8410-2 ####[facility] LABIA [id number] [place] [address] [place] Platelets (Bld) [#/Vol] 39 10*3/uL Low 150-400 [facility] Comment on above: Order Comment: Speci men Type: BLOOD SPECIMENOrdering Facility: [facility] Address: [address] [place] [address] Result Comment: Resu lts checked and verified.No clot detected. Performed By: #### 5 8410-2 ####[facility] [id number] [place] [address] [place] RBC (Bld) [#/Vol] 3.08 10*6/uL Low 4.20-6.00 [facility] Comment on above: Order Comment: Speci men Type: BLOOD SPECIMENOrdering Facility: [facility] Address: [address] [place] [address] Performed By: #### 5 8410-2 ####[facility] LABIA [id number] [place] [address] [place] WBC (Bld) [#/Vol] 34.26 10*3/uL High 3.70-11.00 [facility] Comment on above: Order Comment: Speci men Type: BLOOD SPECIMENOrdering Facility: [facility] Address: [address] [place] [address] Performed By: #### 5 8410-2 ####[facility] LABIA [id number] [place] [address] [place] CMV DNA DETECTION AND QUANTo n 04-06-2023 CMV DNA DEVYN+probe Qn (P) Not detected Normal Not Detected [facility] Comment on above: Order Comment: Speci men Type: BLOOD SPECIMENOrdering Facility: [facility] Address: [address] [place] [address] Performed By: #### C MVQNT ####[facility] LABCLIA [id number] [place] [address] [place] CRP SerPl-mCncon 04-06-2023 CRP [Mass/Vol] 0.9 mg/dL High <0.9 [facility] Comment on above: Order Comment: Speci men Type: BLOOD SPECIMENOrdering Facility: [facility] Address: [address] Performed By: #### 1 988-5, 27859-2, HSTNT, 79484-2, 2777-1 ####[facility] LABIA [id number] [place] [address] [place] Comprehensive metabolic 2000 panelon 04-06-2023 Albumin [Mass/Vol] 3.2 g/dL Low 3.9-4.9 [facility] Comment on above: Order Comment: Speci men Type: BLOOD SPECIMENOrdering Facility: [facility] Address: [address] Performed By: #### 2 4323-8 ####[facility] LABIA [id number] [place] [address] [place] ALP [Catalytic activity/Vol] 81 U/L Normal 38-113 [facility] Comment on above: Order Comment: Speci men Type: BLOOD SPECIMENOrdering Facility: [facility] Address: [address] Performed By: #### 2 4323-8 ####[facility] LABIA [id number] [place] [address] [place] ALT [Catalytic activity/Vol] 90 U/L High 10-54 [facility] Comment on above: Order Comment: Speci men Type: BLOOD SPECIMENOrdering Facility: [facility] Address: [address] Performed By: #### 2 4323-8 ####[facility] LABCLIA [id number] [place] [address] [place] Anion gap [Moles/Vol] 12 mmol/L Normal 9-18 [facility] Comment on above: Order Comment: Speci men Type: BLOOD SPECIMENOrdering Facility: [facility] Address: [address] [place] [address] Performed By: #### 2 4323-8 ####[facility] LABCLIA [id number] [place] [address] [place] AST [Catalytic activity/Vol] 126 U/L High 14-40 [facility] Comment on above: Order Comment: Speci men Type: BLOOD SPECIMENOrdering Facility: [facility] Address: [address] [place] [address] Performed By: #### 2 4323-8 ####[facility] LABCLIA [id number] [place] [address] [place] Bilirubin [Mass/Vol] 2.5 mg/dL High 0.2-1.3 [facility] Comment on above: Order Comment: Speci men Type: BLOOD SPECIMENOrdering Facility: [facility] Address: [address] [place], [place] [address] Performed By: #### 2 4323-8 ####[facility] LABCLIA [id number] [place] [address] [place] Calcium [Mass/Vol] 8.1 mg/dL Low 8.5-10.2 [facility] Comment on above: Order Comment: Speci men Type: BLOOD SPECIMENOrdering Facility: [facility] Address: [address] [place], [place] [address] Performed By: #### 2 4323-8 ####[facility] LABCLIA [id number] [place] [address] [place] Chloride [Moles/Vol] 101 mmol/L Normal 97-105 [facility] Comment on above: Order Comment: Speci men Type: BLOOD SPECIMENOrdering Facility: [facility] Address: [address] [place] [address] Performed By: #### 2 4323-8 ####[facility] LABCLIA [id number] [place] [address] [place] CO2 [Moles/Vol] 18 mmol/L Low 22-30 [facility] Comment on above: Order Comment: Speci men Type: BLOOD SPECIMENOrdering Facility: [facility] Address: [address] [place] [address] Performed By: #### 2 4323-8 ####[facility] LABIA [id number] [address] STATES OF [facility] Creatinine [Mass/Vol] 1.49 mg/dL High 0.73-1.22 [facility] Comment on above: Order Comment: Speci men Type: BLOOD SPECIMENOrdering Facility: [facility] Address: [address] [place] [address] Performed By: #### 2 4323-8 ####[facility] LABIA [id number] [address] ESTIMATED GLOMERULAR FILTRATION RATE 60 mL/min/1.73m??? Normal >=60 [facility] Comment on above: Order Comment: Speci men Type: BLOOD SPECIMENOrdering Facility: [facility] Address: [address] [place] [address] Result Comment: Karma mated Glomerular Filtration Rate (eGFR) is calculated using the 2020 CKD-EPI creatinine equation. This equation utilizes serum creatinine, sex, and age as parameters. The creatinine assay has traceable calibration to isotope dilution-mass spectrometry. Refer to KDIGO guidelines for clinical interpretation. In patients with unstable renal function, e.g. those with acute kidney injury, the eGFR may not accurately reflect actual GFR. Performed By: #### 2 4323-8 ####[facility] LABCLIA [id number] [place] [address] [place] Glucose [Mass/Vol] 162 mg/dL High 74-99 [facility] Comment on above: Order Comment: Speci men Type: BLOOD SPECIMENOrdering Facility: [facility] Address: [address] [place] [address] Result Comment: The [place] Diabetes [employer] (ADA) provides guidance for cutoff values for fasting glucose and random glucose. The ADA defines fasting as no caloric intake for at least 8 hours. Fasting plasma glucose results between 100 to 125 mg/dL indicate increased risk for diabetes (prediabetes).Fasting plasma glucose results greater than or equal to 126 mg/dL meet the criteria for diagnosis of diabetes. In the absence of unequivocal hyperglycemia, results should be confirmed by repeat testing. In a patient with classic symptoms of hyperglycemia or hyperglycemic crisis, random plasma glucose results greater than or equal to 200 mg/dL meet the criteria for diagnosis of diabetes.Reference: Standards of Medical Care in Diabetes 2016, [place] [employer]. Diabetes Care. 2016.39(Suppl 1). Performed By: #### 2 4323-8 ####[facility] LABCLIA [id number] [place] [address] [place] Potassium [Moles/Vol] 4.4 mmol/L Normal 3.7-5.1 [facility] Comment on above: Order Comment: Speci men Type: BLOOD SPECIMENOrdering Facility: [facility] Address: [address] [place] [address] Performed By: #### 2 4323-8 ####[facility] LABCLIA [id number] [place] [address] [place] Protein [Mass/Vol] 4.9 g/dL Low 6.3-8.0 [facility] Comment on above: Order Comment: Speci men Type: BLOOD SPECIMENOrdering Facility: [facility] Address: [address] [place] [address] Performed By: #### 2 4323-8 ####[facility] LABCLIA [id number] [place] [address] [place] Sodium [Moles/Vol] 131 mmol/L Low 136-144 [facility] Comment on above: Order Comment: Speci men Type: BLOOD SPECIMENOrdering Facility: [facility] Address: [address] [place], [place] [address] Performed By: #### 2 4323-8 ####[facility] LABCLIA [id number] [place] [address] [place] Urea nitrogen [Mass/Vol] 59 mg/dL High 9-24 [facility] Comment on above: Order Comment: Speci men Type: BLOOD SPECIMENOrdering Facility: [facility] Address: [address] [place], [place] [address] Performed By: #### 2 4323-8 ####[facility] LABCLIA [id number] [place] [address] [place] Albumin [Mass/Vol] 3.3 g/dL Low 3.9-4.9 [facility] Comment on above: Order Comment: Speci men Type: BLOOD SPECIMENOrdering Facility: [facility] Address: [address] [place], [place] [address] Performed By: #### 1 988-5, 76041-2, HSTNT, 16729-7, 2776- ####[facility] LABCLIA [id number] [place] [address] [place] ALP [Catalytic activity/Vol] 69 U/L Normal 38-113 [facility] Comment on above: Order Comment: Speci men Type: BLOOD SPECIMENOrdering Facility: [facility] Address: [address] Performed By: #### 1 988-5, 74369-7, HSTNT, 73565-5, 2776-1 ####[facility] LABCLIA [id number] [place] [address] [place] ALT [Catalytic activity/Vol] 95 U/L High 10-54 [facility] Comment on above: Order Comment: Speci men Type: BLOOD SPECIMENOrdering Facility: [facility] Address: [address] Performed By: #### 1 988-5, 90472-8, HSTNT, , 2776- ####[facility] LABCLIA [id number] [place] [address] [place] Anion gap [Moles/Vol] 12 mmol/L Normal 9-18 [facility] Comment on above: Order Comment: Speci men Type: BLOOD SPECIMENOrdering Facility: [facility] Address: [address] [place], [place] [address] Performed By: #### 1 988-5, 71260-8, HSTNT, , 2776- ####[facility] LABIA [id number] [place] [address] [place] AST [Catalytic activity/Vol] 146 U/L High 14-40 [facility] Comment on above: Order Comment: Speci men Type: BLOOD SPECIMENOrdering Facility: [facility] Address: [address] [place], [place] [address] Performed By: #### 1 988-5, 13927-8, HSTNT, , 2776- ####[facility] LABCLIA [id number] [place] [address] [place] Bilirubin [Mass/Vol] 2.7 mg/dL High 0.2-1.3 [facility] Comment on above: Order Comment: Speci men Type: BLOOD SPECIMENOrdering Facility: [facility] Address: [address] [place], [place] [address] Performed By: #### 1 988-5, 68065-6, HSTNT, , 2776- ####[facility] LABCLIA [id number] [place] [address] [place] Calcium [Mass/Vol] 8.4 mg/dL Low 8.5-10.2 [facility] Comment on above: Order Comment: Speci men Type: BLOOD SPECIMENOrdering Facility: [facility] Address: [address] [place] [address] Performed By: #### 1 988-5, 44299-3, HSTNT, 64257-8, 2776-1 ####[facility] LABCLIA [id number] [place] [address] [place] Chloride [Moles/Vol] 100 mmol/L Normal 97-105 [facility] Comment on above: Order Comment: Speci men Type: BLOOD SPECIMENOrdering Facility: [facility] Address: [address] [place] [address] Performed By: #### 1 988-5, 83884-9, HSTNT, 47840-8, 2776- ####[facility] LABCLIA [id number] [place] [address] [place] CO2 [Moles/Vol] 19 mmol/L Low 22-30 [facility] Comment on above: Order Comment: Speci men Type: BLOOD SPECIMENOrdering Facility: [facility] Address: [address] [place] [address] Performed By: #### 1 988-5, 76160-1, HSTNT, 95033-3, 2776- ####[facility] LABCLIA [id number] [place] [address] [place] Creatinine [Mass/Vol] 1.30 mg/dL High 0.73-1.22 [facility] Comment on above: Order Comment: Speci men Type: BLOOD SPECIMENOrdering Facility: [facility] Address: [address] [place] [address] Performed By: #### 1 988-5, 42828-9, HSTNT, 43711-1, 2776-1 ####[facility] LABCLIA [id number] [place] [address] [place] ESTIMATED GLOMERULAR FILTRATION RATE 71 mL/min/1.73m??? Normal >=60 [facility] Comment on above: Order Comment: Rasta kennedy Type: BLOOD SPECIMENOrdering Facility: [facility] Address: [address] [facility] [place] [address] Result Comment: Karma mated Glomerular Filtration Rate (eGFR) is calculated using the 2020 CKD-EPI creatinine equation. This equation utilizes serum creatinine, sex, and age as parameters. The creatinine assay has traceable calibration to isotope dilution-mass spectrometry. Refer to KDIGO guidelines for clinical interpretation. In patients with unstable renal function, e.g. those with acute kidney injury, the eGFR may not accurately reflect actual GFR. Performed By: #### 1 988-5, 21706-1, HSTNT, 62791-8, 2776- ####[facility] LABCLIA [id number] [place] [address] [place] Glucose [Mass/Vol] 152 mg/dL High 74-99 [facility] Comment on above: Order Comment: Rasta kennedy Type: BLOOD SPECIMENOrdering Facility: [facility] Address: [address] [place] [address] Result Comment: The [place] Diabetes Association (ADA) provides guidance for cutoff values for fasting glucose and random glucose. The ADA defines fasting as no caloric intake for at least 8 hours. Fasting plasma glucose results between 100 to 125 mg/dL indicate increased risk for diabetes (prediabetes).Fasting plasma glucose results greater than or equal to 126 mg/dL meet the criteria for diagnosis of diabetes. In the absence of unequivocal hyperglycemia, results should be confirmed by repeat testing. In a patient with classic symptoms of hyperglycemia or hyperglycemic crisis, random plasma glucose results greater than or equal to 200 mg/dL meet the criteria for diagnosis of diabetes.Reference: Standards of Medical Care in Diabetes 2016, [place] [employer]. Diabetes Care. 2016.39(Suppl 1). Performed By: #### 1 988-5, 01389-0, HSTNT, 92857-4, 2776- ####[facility] LABCLIA [id number] [place] [address] [place] Potassium [Moles/Vol] 4.6 mmol/L Normal 3.7-5.1 [facility] Comment on above: Order Comment: Speci men Type: BLOOD SPECIMENOrdering Facility: [facility] Address: [address] [place] [address] Performed By: #### 1 988-5, 67310-6, HSTNT, , 2776- ####[facility] LABIA [id number] [place] [address] [place] Protein [Mass/Vol] 5.4 g/dL Low 6.3-8.0 [facility] Comment on above: Order Comment: Speci men Type: BLOOD SPECIMENOrdering Facility: [facility] Address: [address] [place] [address] Performed By: #### 1 988-5, 67693-9, HSTNT, , 2776- ####[facility] LABIA [id number] [place] [address] [place] Sodium [Moles/Vol] 131 mmol/L Low 136-144 [facility] Comment on above: Order Comment: Speci men Type: BLOOD SPECIMENOrdering Facility: [facility] Address: [address] [place] [address] Performed By: #### 1 988-5, 69141-4, HSTNT, , 2776- ####[facility] LABCLIA [id number] [place] [address] [place] Urea nitrogen [Mass/Vol] 46 mg/dL High 9-24 [facility] Comment on above: Order Comment: Speci men Type: BLOOD SPECIMENOrdering Facility: [facility] Address: [address] [place] [address] Performed By: #### 1 988-5, 89245-8, HSTNT, , 2776- ####[facility] LABCLIA [id number] [place] [id number] [place] Creatinine Unsp time (U) [Ma ss/Vol]on 04-06-2023 Creatinine (U) [Mass/Vol] 39.7 mg/dL Normal 20.0-300.0 [facility] Comment on above: Order Comment: Speci men Type: URINE SPECIMENOrdering Facility: [facility] Address: [address] [place] [address] Performed By: #### U UNR, 65821-3 ####[facility] LABCLIA [id number] [address] HIGH SENSITIVITY TROPONIN To n 04-06-2023 HIGH SENSITIVITY AZRA 175 ng/L High <12 [facility] Comment on above: Order Comment: Speci men Type: BLOOD SPECIMENOrdering Facility: [facility] Address: [address] [place] [address] Result Comment: When assessing risk for acute coronary syndromes: In patients undergoing blood draw greater than or equal to 2 hours from symptom onset, with history of very low to moderate risk and non-ischemic ECG, an initial hs-Troponin T less than 12 ng/L AND a 1 hour delta hs-Troponin T less than 3 ng/L should be considered very low risk for 30 day MACE. Performed By: #### 1 988-5, 67858-5, HSTNT, 92171-8, 2777-1 ####[facility] LABCLIA [id number] [place] [id number] [place] Lab Miscellaneous-LCon 04-06 Lab Miscellaneous COMMENT Invalid Interpretation Code [facility] Comment on above: Result Comment: Test Ordered: [id number] Phosphatidylethanol (PEth) PHOSPHATIDYLETHANOL Negative MX Phosphatidylethanol (PEth) Negative ng/mL MX Analyzed compound: PEth 16:0/18:1. 3-vylpahwmz-4-vivdzz-hj-rxdzjsa-3-phosphoethanol. Analysis performed by Liquid Chromatography with Tandem Mass Spectrometry (LC/MS/MS). Detection limit: 20 ng/mL PEth levels in excess of 20 ng/mL are considered evidence of moderate to heavy ethanol consumption. However, the Center for Substance Abuse Treatment (CSAT) advises caution in interpretation and use of biomarkers alone to assess alcohol use. Results should be interpreted in the context of all available clinical and behavioral information. Reference: Substance Abuse and Mental Health Services Administration (2012). The Role of Biomarkers in the Treatment of Alcohol Use Disorders , 2012 Revision. Advisory, Volume 11, Issue 2. This test was developed and its performance characteristics determined by [employer]. It has not been cleared or approved by the Food and Drug Administration. Performed at: [facility] [id number] PhD Arcelia Banegas Performed By: #### 1 [id number] ####[facility] [address] [place] [address] Magnesium [facility] 04-06 Magnesium [Mass/Vol] 2.4 mg/dL High 1.7-2.3 [facility] Comment on above: Order Comment: Speci men Type: BLOOD SPECIMENOrdering Facility: [facility] Address: [address] [place] [address] Performed By: #### 1 988-5, 89605-9, HSTNT, 22233-8, 2777-1 ####[facility] LABCLIA [id number] [facility] [id number] [address] [place] PT panel Coag (PPP)on 2022 INR Coag (PPP) [Relative time] 1.4 {INR} High 0.9-1.3 [facility] Comment on above: Order Comment: Speci brent Type: BLOOD SPECIMENOrdering Facility: [facility] Address: [address] [place] [address] Result Comment: Binta min K Antagonist (VKA) Therapeutic Range: INR 2 to 3 (Target INR of 2.5)Note: For patients treated with VKA drugs, such as warfarin, the [place] [employer] 2012 Guideline recommends a therapeutic INR range of 2 to 3 (target INR of 2.5). This recommendation includes high-risk patients with antiphospholipid syndrome with previous arterial or venous thromboembolism, current-generation mechanical or bioprosthetic aortic heart valve replacement.Note: Patients with mechanical aortic valve replacement and additional risk factors for thromboembolic events (atrial fibrillation, previous thromboembolism, LV dysfunction, hypercoagulable conditions) or an older generation mechanical AVR (i.e., ball in-Cage) or any mechanical MVR should have a INR therapeutic range of 2.5 to 3.5 (target INR of 3).Robyn GH, et al. Chest 2012, 141:7S-47SNishimura RA, et al. [facility] 2017, 70: 252-289 Performed By: #### 3 4528-0, 37825-1 ####[facility] LABCLIA [id number] [place] [address] [place] PT Coag (PPP) [Time] 14.2 s High 9.7-13.0 [facility] Comment on above: Order Comment: Speci men Type: BLOOD SPECIMENOrdering Facility: [facility] Address: [address] [place] [address] Performed By: #### 3 4528-0, 96570-1 ####[facility] LABCLIA [id number] [place] [address] [place] Phosphate SerPl-ncon 04-06 Phosphate [Mass/Vol] 3.4 mg/dL Normal 2.7-4.8 [facility] Comment on above: Order Comment: Rasta kennedy Type: BLOOD SPECIMENOrdering Facility: [facility] Address: [address] [place] [address] Performed By: #### 1 988-5, 11310-3, HSTNT, 21531-1, 2777-1 ####[facility] LABCLIA [id number] [place] [address] [place] THERAPY NTon 04-06-2023 THERAPY NT Normal [facility] THERAPY NT Normal [facility] Tacrolimus Bld-mCncon 2022 Tacrolimus (Bld) [Mass/Vol] ng/mL Low 5.0-20.0 [facility] Comment on above: Order Comment: Speci men Type: BLOOD SPECIMENOrdering Facility: [facility] Address: Vishal [facility] [address] Result Comment: Drug concentration below assay detection limit. Please confirm drug regimen and cancel any standing orders for this drug level if the drug has been discontinued. Reference ranges and high/low indicator flags are provided as general guidelines only. The treating physician must determine appropriate target levels/dosing based on the specific clinical situation. Test performed by chemiluminescent immunoassay using SWYF Alinity i. Performed By: #### 1 1253-2 ####[facility] LABCLIA [id number] [place] [address] [place] UREA NITROGEN RND URon 04-06 Urea nitrogen [Mass/Vol] 549 mg/dL Normal 140-1500 [facility] Comment on above: Order Comment: Speci men Type: URINE SPECIMENOrdering Facility: [facility] Address: [address] Performed By: #### U UNR, 19706-1 ####[facility] LABCLIA [id number] [place] [address] [place] XR ABDOMEN 1V SUPINEon 04-06 XR ABDOMEN 1V SUPINE Normal [facility] XR CHEST 1V FRONTAL PORTon 0 04-06-2023 XR CHEST 1V FRONTAL PORT Normal [facility] aPTT PPPon 04-06-2023 aPTT Coag (PPP) [Time] 25.7 s Normal 23.0-32.4 [facility] Comment on above: Order Comment: Speci men Type: BLOOD SPECIMENOrdering Facility: [facility] Address: [address] Performed By: #### 3 4528-0, 15534-5 ####[facility] LABCLIA [id number] [place] [address] [place] ARTERIAL BLOOD GASESon 04-05 Base deficit (BldA) [Moles/Vol] -2 mmol/L Normal -2-0 [facility] Comment on above: Order Comment: Speci men Type: ARTERIAL BLOOD SPECIMENOrdering Facility: [facility] Address: [address] [place] [address] Performed By: #### A LLBG ####[facility] LABCLIA [id number] [place] [address] [place] Body temperature 100.22 [degF] Normal [facility] Comment on above: Order Comment: Speci men Type: ARTERIAL BLOOD SPECIMENOrdering Facility: [facility] Address: [address] [place] [address] Performed By: #### A LLBG ####[facility] LABIA [id number] [place] [place] [address] [place] Calcium.ionized (Bld) [Mass/Vol] 1.19 mmol/L Normal 1.08-1.30 [facility] Comment on above: Order Comment: Speci men Type: ARTERIAL BLOOD SPECIMENOrdering Facility: [facility] Address: [address] [place], [place] [address] Performed By: #### A LLBG ####[facility] LABIA [id number] [address] [place] Calcium.ionized adjusted to pH 7.4 (BldA) [Moles/Vol] 1.19 mmol/L Normal 1.08-1.30 [facility] Comment on above: Order Comment: Speci men Type: ARTERIAL BLOOD SPECIMENOrdering Facility: [facility] Address: [address] [place], [place] [address] Performed By: #### A LLBG ####[facility] LABCLIA [id number] [place] [address] [place] Carboxyhemoglobin (BldA) [Mass fraction] 2.0 % Normal 0.0-2.0 [facility] Comment on above: Order Comment: Speci men Type: ARTERIAL BLOOD SPECIMENOrdering Facility: [facility] Address: [address] [address] Result Comment: Carb oxyhemoglobin Reference Range for Smokers: 2.0-8.0% Performed By: #### A LLBG ####[facility] LABCLIA [id number] [place] [address] [place] CO2 (Bld) [Partial pressure] 35 mm Hg Low 36-46 [facility] Comment on above: Order Comment: Speci men Type: ARTERIAL BLOOD SPECIMENOrdering Facility: [facility] Address: [address] [address] Performed By: #### A LLBG ####[facility] LABCLIA [id number] [place] [address] [place] CO2 adjusted to patient's actual temperature (Bld) [Partial pressure] 37 mmHg Normal 36-46 [facility] Comment on above: Order Comment: Speci men Type: ARTERIAL BLOOD SPECIMENOrdering Facility: [facility] Address: [address] [address] Performed By: #### A LLBG ####[facility] LABCLIA [id number] [place] [address] [place] Glucose [Mass/Vol] 191 mg/dL High 60-105 [facility] Comment on above: Order Comment: Speci men Type: ARTERIAL BLOOD SPECIMENOrdering Facility: [facility] Address: [address] Performed By: #### A LLBG ####[facility] LABCLIA [id number] [place] [address] [place] HCO3 (Bld) [Moles/Vol] 21 mmol/L Low 22-26 [facility] Comment on above: Order Comment: Speci men Type: ARTERIAL BLOOD SPECIMENOrdering Facility: [facility] Address: [address] Performed By: #### A LLBG ####[facility] LABCLIA [id number] [place] [address] [place] Hematocrit (Bld) [Volume fraction] 28.1 % Low 39.0-51.0 [facility] Comment on above: Order Comment: Speci men Type: ARTERIAL BLOOD SPECIMENOrdering Facility: [facility] Address: [address] [place] [address] Performed By: #### A LLBG ####[facility] LABIA [id number] [place] [address] [place] Hemoglobin (Bld) [Mass/Vol] 9.1 g/dL Low 13.0-17.0 [facility] Comment on above: Order Comment: Speci men Type: ARTERIAL BLOOD SPECIMENOrdering Facility: [facility] Address: [address] [place] [address] Performed By: #### A LLBG ####[facility] LABIA [id number] [address] STATES OF [facility] Lactate [Moles/Vol] 2.9 mmol/L High 0.5-2.2 [facility] Comment on above: Order Comment: Speci men Type: ARTERIAL BLOOD SPECIMENOrdering Facility: [facility] Address: [address] [place] [address] Performed By: #### A LLBG ####[facility] LABIA [id number] [address] [place] Methemoglobin (Bld) [Mass fraction] 0.6 % Normal 0.0-1.5 [facility] Comment on above: Order Comment: Speci men Type: ARTERIAL BLOOD SPECIMENOrdering Facility: [facility] Address: [address] [place], [place] [address] Performed By: #### A LLBG ####[facility] LABIA [id number] [place] [address] [place] O2 THERAPY Ventilator Normal [facility] Comment on above: Order Comment: Speci men Type: ARTERIAL BLOOD SPECIMENOrdering Facility: [facility] Address: [address] Performed By: #### A LLBG ####[facility] LABCLIA [id number] [place] [address] [place] Oxygen (Bld) [Partial pressure] 148 mm Hg High 85-95 [facility] Comment on above: Order Comment: Speci men Type: ARTERIAL BLOOD SPECIMENOrdering Facility: [facility] Address: [address] Performed By: #### A LLBG ####[facility] LABCLIA [id number] [address] [place] Oxygen adjusted to patient's actual temperature (Bld) [Partial pressure] 153 mmHg High 85-95 [facility] Comment on above: Order Comment: Speci men Type: ARTERIAL BLOOD SPECIMENOrdering Facility: [facility] Address: [address] Performed By: #### A LLBG ####[facility] LABCLIA [id number] [place] [address] [place] Oxyhemoglobin (BldA) [Mass fraction] 97 % Normal 95-98 [facility] Comment on above: Order Comment: Speci men Type: ARTERIAL BLOOD SPECIMENOrdering Facility: [facility] Address: [address] Performed By: #### A LLBG ####[facility] LABCLIA [id number] [place] [address] [place] pH (Bld) 7.40 [pH] Normal 7.35-7.45 [facility] Comment on above: Order Comment: Speci men Type: ARTERIAL BLOOD SPECIMENOrdering Facility: [facility] Address: [address] Performed By: #### A LLBG ####[facility] LABCLIA [id number] [place] [address] [place] pH adjusted to patient's actual temperature (Bld) 7.39 Normal 7.35-7.45 [facility] Comment on above: Order Comment: Speci men Type: ARTERIAL BLOOD SPECIMENOrdering Facility: [facility] Address: [address] [place] [address] Performed By: #### A LLBG ####[facility] LABCLIA [id number] [place] [address] [place] Potassium [Moles/Vol] 4.3 mmol/L Normal 3.5-5.0 [facility] Comment on above: Order Comment: Speci men Type: ARTERIAL BLOOD SPECIMENOrdering Facility: [facility] Address: [address] [place] [address] Performed By: #### A LLBG ####[facility] LABIA [id number] [place] [address] [place] Sodium [Moles/Vol] 135 mmol/L Low 136-144 [facility] Comment on above: Order Comment: Speci men Type: ARTERIAL BLOOD SPECIMENOrdering Facility: [facility] Address: [address] [place] [address] Performed By: #### A LLBG ####[facility] LABIA [id number] [place] [address] [place] Order Comment: Speci men Type: BLOOD SPECIMENOrdering Facility: [facility] Address: [address] [place] [address] Performed By: #### 2 4323-8, 1987-5, HSTNT, 83019-1, 2777-1 ####[facility] LABIA [id number] [place] [address] [place] Ammonia Plas-sCncon 04-05-20 23 Ammonia (P) [Moles/Vol] 38 umol/L Normal 16-60 [facility] Comment on above: Order Comment: Speci men Type: BLOOD SPECIMENOrdering Facility: [facility] Address: [address] [place], [place] [address] Performed By: #### 1 6362-6 ####[facility] LABCLIA [id number] [place] [address] [place] CBC W Auto Differential pane l (Bld)on 04-05-2023 Basophils (Bld) [#/Vol] 10*3/uL Normal <0.11 [facility] Comment on above: Order Comment: Speci men Type: BLOOD SPECIMENOrdering Facility: [facility] Address: [address] [place], [place] [address] Performed By: #### 5 7021-8 ####[facility] LABIA [id number] [place] [address] [place] Basophils/100 WBC (Bld) 0.2 % Normal [facility] Comment on above: Order Comment: Speci men Type: BLOOD SPECIMENOrdering Facility: [facility] Address: [address] [place], [place] [address] Performed By: #### 5 7021-8 ####[facility] LABIA [id number] [place] [address] [place] Differential cell count method Nom (Bld) Auto Normal [facility] Comment on above: Order Comment: Speci men Type: BLOOD SPECIMENOrdering Facility: [facility] Address: [address] [place], [place] [address] Performed By: #### 5 7021-8 ####[facility] LABCLIA [id number] [place] [address] [place] Eosinophils (Bld) [#/Vol] 10*3/uL Normal <0.46 [facility] Comment on above: Order Comment: Speci men Type: BLOOD SPECIMENOrdering Facility: [facility] Address: [address] [place], [place] [address] Performed By: #### 5 7021-8 ####[facility] LABCLIA [id number] [place] [address] [place] Eosinophils/100 WBC (Bld) 0.0 % Normal [facility] Comment on above: Order Comment: Speci men Type: BLOOD SPECIMENOrdering Facility: [facility] Address: [address] [place], [place] [address] Performed By: #### 5 7021-8 ####[facility] LABIA [id number] [place] [address] [place] Erythrocyte distribution width (RBC) [Ratio] 14.6 % Normal 11.5-15.0 [facility] Comment on above: Order Comment: Speci men Type: BLOOD SPECIMENOrdering Facility: [facility] Address: [address] [place], [place] [address] Performed By: #### 5 7021-8 ####[facility] LABIA [id number] [address] [place] Hematocrit (Bld) [Volume fraction] 26.7 % Low 39.0-51.0 [facility] Comment on above: Order Comment: Speci men Type: BLOOD SPECIMENOrdering Facility: [facility] Address: [address] [place], [place] [address] Performed By: #### 5 7021-8 ####[facility] LABIA [id number] [place] [address] [place] Hemoglobin (Bld) [Mass/Vol] 9.3 g/dL Low 13.0-17.0 [facility] Comment on above: Order Comment: Speci men Type: BLOOD SPECIMENOrdering Facility: [facility] Address: [address] [place], [place] [address] Performed By: #### 5 7021-8 ####[facility] LABIA [id number] [address] [id number] [address] [place] Immature granulocytes (Bld) [#/Vol] 0.03 10*3/uL Normal <0.10 [facility] Comment on above: Order Comment: Speci men Type: BLOOD SPECIMENOrdering Facility: [facility] Address: [address] [place] [address] Performed By: #### 5 7021-8 ####[facility] LABCLIA [id number] [address] [place] Immature granulocytes/100 WBC (Bld) 0.5 % Normal [facility] Comment on above: Order Comment: Speci men Type: BLOOD SPECIMENOrdering Facility: [facility] Address: [address] [place] [address] Performed By: #### 5 7021-8 ####[facility] LABCLIA [id number] [place] [address] [place] Lymphocytes (Bld) [#/Vol] 0.43 10*3/uL Low 1.00-4.00 [facility] Comment on above: Order Comment: Speci men Type: BLOOD SPECIMENOrdering Facility: [facility] Address: [address] [place], [place] [address] Performed By: #### 5 7021-8 ####[facility] LABCLIA [id number] [address] [place] Lymphocytes/100 WBC (Bld) 6.5 % Normal [facility] Comment on above: Order Comment: Speci men Type: BLOOD SPECIMENOrdering Facility: [facility] Address: [address] [place], [place] [address] Performed By: #### 5 7021-8 ####[facility] LABCLIA [id number] [place] [address] [place] MCH (RBC) [Entitic mass] 34.1 pg High 26.0-34.0 [facility] Comment on above: Order Comment: Speci men Type: BLOOD SPECIMENOrdering Facility: [facility] Address: [address] Performed By: #### 5 7021-8 ####[facility] LABCLIA [id number] [address] [place] MCHC (RBC) [Mass/Vol] 34.8 g/dL Normal 30.5-36.0 [facility] Comment on above: Order Comment: Speci men Type: BLOOD SPECIMENOrdering Facility: [facility] Address: [address] [place], [place] [address] Performed By: #### 5 7021-8 ####[facility] LABIA [id number] [place] [address] [place] MCV (RBC) [Entitic vol] 97.8 fL Normal 80.0-100.0 [facility] Comment on above: Order Comment: Speci men Type: BLOOD SPECIMENOrdering Facility: [facility] Address: [address] [place], [place] [address] Performed By: #### 5 7021-8 ####[facility] LABIA [id number] [place] [address] [place] Monocytes (Bld) [#/Vol] 0.24 10*3/uL Normal <0.87 [facility] Comment on above: Order Comment: Speci men Type: BLOOD SPECIMENOrdering Facility: [facility] Address: [address] [place], [place] [address] Performed By: #### 5 7021-8 ####[facility] LABCLIA [id number] [address] [place] Monocytes/100 WBC (Bld) 3.7 % Normal [facility] Comment on above: Order Comment: Speci men Type: BLOOD SPECIMENOrdering Facility: [facility] Address: [address] [place], [place] [address] Performed By: #### 5 7021-8 ####[facility] LABCLIA [id number] [place] [address] [place] Neutrophils (Bld) [#/Vol] 5.86 10*3/uL Normal 1.45-7.50 [facility] Comment on above: Order Comment: Speci men Type: BLOOD SPECIMENOrdering Facility: [facility] Address: [address] [place] [address] Performed By: #### 5 7021-8 ####[facility] LABCLIA [id number] [place] [address] [place] Neutrophils/100 WBC (Bld) 89.1 % Normal [facility] Comment on above: Order Comment: Speci men Type: BLOOD SPECIMENOrdering Facility: [facility] Address: [address] [place] [address] Performed By: #### 5 7021-8 ####[facility] LABCLIA [id number] [place] [address] [place] Nucleated RBC (Bld) [#/Vol] 10*3/uL Normal <0.01 [facility] Comment on above: Order Comment: Speci men Type: BLOOD SPECIMENOrdering Facility: [facility] Address: [address] [place], [place] [address] Performed By: #### 5 7021-8 ####[facility] LABIA [id number] [place] [address] [place] Nucleated RBC/100 WBC (Bld) [Ratio] 0.0 /100 WBC Normal [facility] Comment on above: Order Comment: Speci men Type: BLOOD SPECIMENOrdering Facility: [facility] Address: [address] [place], [place] [address] Performed By: #### 5 7021-8 ####[facility] LABCLIA [id number] [place] [address] [place] Platelet mean volume (Bld) [Entitic vol] 9.8 fL Normal 9.0-12.7 [facility] Comment on above: Order Comment: Speci men Type: BLOOD SPECIMENOrdering Facility: [facility] Address: [address] [place] [address] Performed By: #### 5 7021-8 ####[facility] LABCLIA [id number] [place] [address] [place] Platelets (Bld) [#/Vol] 42 10*3/uL Low 150-400 [facility] Comment on above: Order Comment: Speci men Type: BLOOD SPECIMENOrdering Facility: [facility] Address: [address] [place] [address] Result Comment: No c lot detected. Performed By: #### 5 7021-8 ####[facility] LABIA [id number] [place] [address] [place] RBC (Bld) [#/Vol] 2.73 10*6/uL Low 4.20-6.00 [facility] Comment on above: Order Comment: Speci men Type: BLOOD SPECIMENOrdering Facility: [facility] Address: [address] [place] [address] Performed By: #### 5 7021-8 ####[facility] LABIA [id number] [place] [address] [place] WBC (Bld) [#/Vol] 6.57 10*3/uL Normal 3.70-11.00 [facility] Comment on above: Order Comment: Speci men Type: BLOOD SPECIMENOrdering Facility: [facility] Address: [address] [place] [address] Performed By: #### 5 7021-8 ####[facility] LABIA [id number] [place] [address] [place] CMV DNA DETECTION AND QUANTo n 04-05-2023 CMV DNA DEVYN+probe Qn (P) Not detected Normal Not Detected [facility] Comment on above: Order Comment: Speci men Type: BLOOD SPECIMENOrdering Facility: [facility] Address: [address] [place] [address] Performed By: #### C MVQNT ####[facility] LABCLIA [id number] [place] [address] [place] CRP SerPl-mCncon 04-05-2023 CRP [Mass/Vol] 0.9 mg/dL High <0.9 [facility] Comment on above: Order Comment: Speci men Type: BLOOD SPECIMENOrdering Facility: [facility] Address: [address] [place] [address] Performed By: #### 2 4323-03, 1987-12, HSTNT, , 2776-08 ####[facility] LABCLIA [id number] [place] [address] [place] Comprehensive metabolic 2000 panelon 04-05-2023 Albumin [Mass/Vol] 3.8 g/dL Low 3.9-4.9 [facility] Comment on above: Order Comment: Speci men Type: BLOOD SPECIMENOrdering Facility: [facility] Address: [address] [place] [address] Performed By: #### 2 4323-03, 1987-12, HSTNT, , 2776-08 ####[facility] LABIA [id number] [place] [address] [place] ALP [Catalytic activity/Vol] 48 U/L Normal 38-113 [facility] Comment on above: Order Comment: Speci men Type: BLOOD SPECIMENOrdering Facility: [facility] Address: [address] [place], [place] [address] Performed By: #### 2 4323-03, 1987-12, HSTNT, , 2776-08 ####[facility] LABCLIA [id number] [place] [address] [place] ALT [Catalytic activity/Vol] 99 U/L High 10-54 [facility] Comment on above: Order Comment: Speci men Type: BLOOD SPECIMENOrdering Facility: [facility] Address: [address] Performed By: #### 2 4323-03, 1987-12, HSTNT, , 2776-08 ####[facility] LABCLIA [id number] [place] [address] [place] Anion gap [Moles/Vol] 14 mmol/L Normal 9-18 [facility] Comment on above: Order Comment: Speci men Type: BLOOD SPECIMENOrdering Facility: [facility] Address: [address] Performed By: #### 2 4323-03, 1987-12, HSTNT, , 2776-08 ####[facility] LABIA [id number] [place] [address] [place] AST [Catalytic activity/Vol] 251 U/L High 14-40 [facility] Comment on above: Order Comment: Speci men Type: BLOOD SPECIMENOrdering Facility: [facility] Address: [address] [place], [place] [address] Performed By: #### 2 4323-03, 1987-12, HSTNT, , 2776-08 ####[facility] LABIA [id number] [place] [address] [place] Bilirubin [Mass/Vol] 3.6 mg/dL High 0.2-1.3 [facility] Comment on above: Order Comment: Speci men Type: BLOOD SPECIMENOrdering Facility: [facility] Address: [address] Performed By: #### 2 4323-03, 1987-12, HSTNT, , 2776-08 ####[facility] LABCLIA [id number] [place] [id number] [place] Calcium [Mass/Vol] 8.7 mg/dL Normal 8.5-10.2 [facility] Comment on above: Order Comment: Speci men Type: BLOOD SPECIMENOrdering Facility: [facility] Address: [address] [place], [place] [address] Performed By: #### 2 4323-03, 1987-12, HSTNT, , 2776-08 ####[facility] LABCLIA [id number] [place] [id number] [place] Chloride [Moles/Vol] 102 mmol/L Normal 97-105 [facility] Comment on above: Order Comment: Speci men Type: BLOOD SPECIMENOrdering Facility: [facility] Address: [address] [place] [address] Performed By: #### 2 4323-03, 1987-12, HSTNT, , 2776-08 ####[facility] LABCLIA [id number] [place] [address] [place] CO2 [Moles/Vol] 19 mmol/L Low 22-30 [facility] Comment on above: Order Comment: Speci men Type: BLOOD SPECIMENOrdering Facility: [facility] Address: [address] [place] [address] Performed By: #### 2 4323-03, 1987-12, HSTNT, , 2776-08 ####[facility] LABCLIA [id number] [place] [address] [place] Creatinine [Mass/Vol] 1.07 mg/dL Normal 0.73-1.22 [facility] Comment on above: Order Comment: Speci men Type: BLOOD SPECIMENOrdering Facility: [facility] Address: [address] [place], [place] [address] Performed By: #### 2 4323-03, 1987-12, HSTNT, , 2776-08 ####[facility] LABCLIA [id number] [place] [id number] [place] ESTIMATED GLOMERULAR FILTRATION RATE 89 mL/min/1.73m??? Normal >=60 [facility] Comment on above: Order Comment: Rasta kennedy Type: BLOOD SPECIMENOrdering Facility: [facility] Address: [place] [place] [address] Result Comment: Karma mated Glomerular Filtration Rate (eGFR) is calculated using the 2020 CKD-EPI creatinine equation. This equation utilizes serum creatinine, sex, and age as parameters. The creatinine assay has traceable calibration to isotope dilution-mass spectrometry. Refer to KDIGO guidelines for clinical interpretation. In patients with unstable renal function, e.g. those with acute kidney injury, the eGFR may not accurately reflect actual GFR. Performed By: #### 2 4323-03, 1987-12, HSTNT, , 2776-08 ####[facility] LABCLIA [id number] [place] [id number] [place] Glucose [Mass/Vol] 193 mg/dL High 74-99 [facility] Comment on above: Order Comment: Rasta kennedy Type: BLOOD SPECIMENOrdering Facility: [facility] Address: [place] [address] Result Comment: The [place] Diabetes Association (ADA) provides guidance for cutoff values for fasting glucose and random glucose. The ADA defines fasting as no caloric intake for at least 8 hours. Fasting plasma glucose results between 100 to 125 mg/dL indicate increased risk for diabetes (prediabetes).Fasting plasma glucose results greater than or equal to 126 mg/dL meet the criteria for diagnosis of diabetes. In the absence of unequivocal hyperglycemia, results should be confirmed by repeat testing. In a patient with classic symptoms of hyperglycemia or hyperglycemic crisis, random plasma glucose results greater than or equal to 200 mg/dL meet the criteria for diagnosis of diabetes.Reference: Standards of Medical Care in Diabetes 2016, [place] [employer]. Diabetes Care. 2016.39(Suppl 1). Performed By: #### 2 4323-03, 1987-12, HSTNT, , 2776-08 ####[facility] LABCLIA [id number] [place] [address] [place] Potassium [Moles/Vol] 4.5 mmol/L Normal 3.7-5.1 [facility] Comment on above: Order Comment: Speci men Type: BLOOD SPECIMENOrdering Facility: [facility] Address: [address] [place] [address] Performed By: #### 2 8, 1987-12, HSTNT, , 2776-08 ####[facility] LABCLIA [id number] [place] [address] [place] Protein [Mass/Vol] 5.5 g/dL Low 6.3-8.0 [facility] Comment on above: Order Comment: Speci men Type: BLOOD SPECIMENOrdering Facility: [facility] Address: [address] [place] [address] Performed By: #### 2 8, 1987-12, HSTNT, , 2776-08 ####[facility] LABCLIA [id number] [place] [address] [place] Urea nitrogen [Mass/Vol] 20 mg/dL Normal 9-24 [facility] Comment on above: Order Comment: Speci men Type: BLOOD SPECIMENOrdering Facility: [facility] Address: [address] [place] [address] Performed By: #### 2 8, 1987-12, HSTNT, , 2776-08 ####[facility] LABCLIA [id number] [place] [address] [place] Fibrinogen PPP-mCncon 2022 Fibrinogen Coag (PPP) [Mass/Vol] 151 mg/dL Low 200-400 [facility] Comment on above: Order Comment: Speci men Type: BLOOD SPECIMENOrdering Facility: [facility] Address: [address] [place] [address] Performed By: #### 3 255-7, 53683-1, 58992-3 ####[facility] LABCLIA [id number] [place] [address] [place] HIGH SENSITIVITY TROPONIN To n 04-05-2023 HIGH SENSITIVITY AZRA 14 ng/L High <12 [facility] Comment on above: Order Comment: Speci men Type: BLOOD SPECIMENOrdering Facility: [facility] Address: [address] [place] [address] Result Comment: When assessing risk for acute coronary syndromes: In patients undergoing blood draw greater than or equal to 2 hours from symptom onset, with history of very low to moderate risk and non-ischemic ECG, an initial hs-Troponin T less than 12 ng/L AND a 1 hour delta hs-Troponin T less than 3 ng/L should be considered very low risk for 30 day MACE. Performed By: #### 2 4323-8, 1987-12, HSTNT, , 2776-08 ####[facility] LABIA [id number] [place] [address] [place] Magnesium SerPl-mCncon 04-05 Magnesium [Mass/Vol] 2.3 mg/dL Normal 1.7-2.3 [facility] Comment on above: Order Comment: Speci men Type: BLOOD SPECIMENOrdering Facility: [facility] Address: [address] [place] [address] Performed By: #### 2 432-8, 1987-12, HSTNT, , 2776-08 ####[facility] LABIA [id number] [place] [id number] [place] NUTRITIONon 04-05-2023 NUTRITION Normal [facility] PT panel Coag (PPP)on 2022 INR Coag (PPP) [Relative time] 1.5 {INR} High 0.9-1.3 [facility] Comment on above: Order Comment: Speci men Type: BLOOD SPECIMENOrdering Facility: [facility] Address: [address] [place], [place] [address] Result Comment: Binta min K Antagonist (VKA) Therapeutic Range: INR 2 to 3 (Target INR of 2.5)Note: For patients treated with VKA drugs, such as warfarin, the [place] [employer] 2012 Guideline recommends a therapeutic INR range of 2 to 3 (target INR of 2.5). This recommendation includes high-risk patients with antiphospholipid syndrome with previous arterial or venous thromboembolism, current-generation mechanical or bioprosthetic aortic heart valve replacement.Note: Patients with mechanical aortic valve replacement and additional risk factors for thromboembolic events (atrial fibrillation, previous thromboembolism, LV dysfunction, hypercoagulable conditions) or an older generation mechanical AVR (i.e., ball in-Cage) or any mechanical MVR should have a INR therapeutic range of 2.5 to 3.5 (target INR of 3).Robyn GH, et al. Chest 2012, 141:7S-47SNishimura RA, et al. [facility] 2017, 70: 252-289 Performed By: #### 3 255-7, 04618-2, 42460-9 ####[facility] LABCLIA [id number] [place] [address] [place] PT Coag (PPP) [Time] 15.3 s High 9.7-13.0 [facility] Comment on above: Order Comment: Specсергей men Type: BLOOD SPECIMENOrdering Facility: [facility] Address: [address] [place] [address] Performed By: #### 3 255-7, 82073-5, 07634-4 ####[facility] LABCLIA [id number] [place] [address] [place] Phosphate SerPl-mCncon 04-05 Phosphate [Mass/Vol] 3.9 mg/dL Normal 2.7-4.8 [facility] Comment on above: Order Comment: Rasta kennedy Type: BLOOD SPECIMENOrdering Facility: [facility] Address: [address] [place] [address] Performed By: #### 2 4323-8, 1988-5, HSTNT, 34479-3, 2777-1 ####[facility] LABCLIA [id number] [address] Procalcitonin SerPl-mCncon 0 04-05-2023 Procalcitonin [Mass/Vol] 7.97 ng/mL High <0.09 [facility] Comment on above: Order Comment: Speci men Type: BLOOD SPECIMENOrdering Facility: [facility] Address: [address] [place] [address] Result Comment: For a guided interpretation of test results, please visit the Change in Procalcitonin Calculator, [email or web address]. Performed By: #### 3 3959-8 ####[facility] [id number] [address] [place] THROMBOGRAPH PANELon 023 Clot angle TEG (Bld) [Angle] 59.6 degrees Normal 47.0-74.0 [facility] Comment on above: Order Comment: Speci men Type: BLOOD SPECIMENOrdering Facility: [facility] Address: [address] [place] [address] Performed By: #### T EGPNP ####[facility] [id number] [address] STATES [facility] Clot Lysis 30 Min post maximum clot amplitude TEG (Bld) [Length fraction] 0.2 % Normal 0.0-8.0 [facility] Comment on above: Order Comment: Speci men Type: BLOOD SPECIMENOrdering Facility: [facility] Address: [address] [place] [address] Performed By: #### T EGPNP ####[facility] [id number] [address] [place] Clotting time after addition of heparinase TEG (Bld) Reviewed by Ame Weiss M.D., Ph.D Normal [facility] Comment on above: Order Comment: Speci men Type: BLOOD SPECIMENOrdering Facility: [facility] Address: [address] [place] [address] Performed By: #### T EGPNP ####[facility] LABCLIA [id number] [address] [place] Clotting time TEG (Bld) 4.7 minutes Normal 4.0-10.0 [facility] Comment on above: Order Comment: Speci men Type: BLOOD SPECIMENOrdering Facility: [facility] Address: [address] [place] [address] Performed By: #### T EGPNP ####[facility] LABCLIA [id number] [address] [place] Coagulation index TEG Qn (Bld) -2.6 Normal -4.6-3.2 [facility] Comment on above: Order Comment: Yuryi brent Type: BLOOD SPECIMENOrdering Facility: [facility] Address: [address] [place] [address] Result Comment: The Coagulation Index, a secondary parameter, is labeled by the electronics assembler and tester as for research use only and is used per the electronics assembler and tester's instructions. Its performance characteristics were determined by [facility]'s Jass Abril [facility] Pathology and Laboratory Medicine [place] in a manner consistent with CLIA requirements. This test has not been cleared by the U.S. Food and Drug Administration. Performed By: #### T EGPNP ####[facility] LABIA [id number] [address] [place] INTERPRETATION(THROM BOGRAPH HEPARINASE) Normal [facility] Comment on above: Order Comment: Speci men Type: BLOOD SPECIMENOrdering Facility: [facility] Address: [address] [place] [address] Result Comment: A th romboelastograph (TEG) study was performed using citrate-anticoagulated whole blood.The R value, a measure of coagulation function, is within the normal range. This indicates normal coagulation function. The angle, a measure of fibrinogen function, is within normal range. This is indicative of normal fibrinogen concentration or function. The Maximal Amplitude (MA), a measure of platelet function, is decreased. A decreased MA can be seen with increased anti-platelet drug effect, thrombocytopenia, or platelet dysfunction. The Ly30, a measure of fibrinolysis, is normal. This is indicative of normal fibrinolytic function. The coagulation index (CI), a measure of hemostasis function, is within the normal range. The CI is a calculated parameter based on the other TEG results. Performed By: #### T EGPNP ####[facility] LABCLIA [id number] [place] [address] [place] Maximum clot firmness TEG (Bld) [Length] 40.2 mm Low 51.0-75.0 [facility] Comment on above: Order Comment: Rasta kennedy Type: BLOOD SPECIMENOrdering Facility: [facility] Address: [address] [place] [address] Performed By: #### T EGPNP ####[facility] LABIA [id number] [place] [address] [place] XR CHEST 1V FRONTAL PORTon 0 04-05-2023 XR CHEST 1V FRONTAL PORT Normal [facility] XR CHEST 1V FRONTAL PORT Normal [facility] XR CHEST 1V FRONTAL PORT Normal [facility] aPTT PPPon 04-05-2023 aPTT Coag (PPP) [Time] 35.6 s High 23.0-32.4 [facility] Comment on above: Order Comment: Rasta kennedy Type: BLOOD SPECIMENOrdering Facility: [facility] Address: [address] [place] [address] Performed By: #### 3 255-7, 31530-2, 21688-6 ####[facility] LABIA [id number] [address] [place] ANES POSTPROC EVALon 023 ANES POSTPROC EVAL Normal [facility] ANES PRE-OPon 04-04-2023 ANES PRE-OP Normal [facility] ARTERIAL BLOOD GASESon 04-04 Base deficit (BldA) [Moles/Vol] -3 mmol/L Low -2-0 [facility] Comment on above: Order Comment: Speci men Type: ARTERIAL BLOOD SPECIMENOrdering Facility: [facility] Address: [address] [place] [address] Performed By: #### A LLBG ####[facility] LABIA [id number] [place] [address] [place] Body temperature 98.6 [degF] Normal [facility] Comment on above: Order Comment: Speci men Type: ARTERIAL BLOOD SPECIMENOrdering Facility: [facility] Address: [address] [place] [address] Performed By: #### A LLBG ####[facility] [id number] [place] [address] [place] Calcium.ionized (Bld) [Mass/Vol] 1.23 mmol/L Normal 1.08-1.30 [facility] Comment on above: Order Comment: Speci men Type: ARTERIAL BLOOD SPECIMENOrdering Facility: [facility] Address: [address] [place] [address] Performed By: #### A LLBG ####[facility] [id number] [address] [place] Calcium.ionized adjusted to pH 7.4 (BldA) [Moles/Vol] 1.21 mmol/L Normal 1.08-1.30 [facility] Comment on above: Order Comment: Speci men Type: ARTERIAL BLOOD SPECIMENOrdering Facility: [facility] Address: [address] [place], [place] [address] Performed By: #### A LLBG ####[facility] [id number] [place] [address] [place] Carboxyhemoglobin (BldA) [Mass fraction] 2.7 % High 0.0-2.0 [facility] Comment on above: Order Comment: Speci men Type: ARTERIAL BLOOD SPECIMENOrdering Facility: [facility] Address: [address] [place], [place] [address] Result Comment: Carb oxyhemoglobin Reference Range for Smokers: 2.0-8.0% Performed By: #### A LLBG ####[facility] LABCLIA [id number] [address] [place] CO2 (Bld) [Partial pressure] 38 mm Hg Normal 36-46 [facility] Comment on above: Order Comment: Speci men Type: ARTERIAL BLOOD SPECIMENOrdering Facility: [facility] Address: [address] Performed By: #### A LLBG ####[facility] LABCLIA [id number] [place] [address] [place] Glucose [Mass/Vol] 164 mg/dL High 60-105 [facility] Comment on above: Order Comment: Speci men Type: ARTERIAL BLOOD SPECIMENOrdering Facility: [facility] Address: [address] Performed By: #### A LLBG ####[facility] LABIA [id number] [place] [address] [place] HCO3 (Bld) [Moles/Vol] 22 mmol/L Normal 22-26 [facility] Comment on above: Order Comment: Speci men Type: ARTERIAL BLOOD SPECIMENOrdering Facility: [facility] Address: [address] Performed By: #### A LLBG ####[facility] LABCLIA [id number] [address] [place] Hematocrit (Bld) [Volume fraction] 29.7 % Low 39.0-51.0 [facility] Comment on above: Order Comment: Speci men Type: ARTERIAL BLOOD SPECIMENOrdering Facility: [facility] Address: [address] Performed By: #### A LLBG ####[facility] LABCLIA [id number] [place] Hemoglobin (Bld) [Mass/Vol] 9.6 g/dL Low 13.0-17.0 [facility] Comment on above: Order Comment: Speci men Type: ARTERIAL BLOOD SPECIMENOrdering Facility: [facility] Address: [address] [place] [address] Performed By: #### A LLBG ####[facility] LABIA [id number] [place] [address] [place] Lactate [Moles/Vol] 2.7 mmol/L High 0.5-2.2 [facility] Comment on above: Order Comment: Speci men Type: ARTERIAL BLOOD SPECIMENOrdering Facility: [facility] Address: [address] [place] [address] Performed By: #### A LLBG ####[facility] LABIA [id number] [address] [place] Methemoglobin (Bld) [Mass fraction] 0.7 % Normal 0.0-1.5 [facility] Comment on above: Order Comment: Speci men Type: ARTERIAL BLOOD SPECIMENOrdering Facility: [facility] Address: [address] [place], [place] [address] Performed By: #### A LLBG ####[facility] LABIA [id number] [place] [address] [place] O2 THERAPY Ventilator Normal [facility] Comment on above: Order Comment: Speci men Type: ARTERIAL BLOOD SPECIMENOrdering Facility: [facility] Address: [address] [place], [place] [address] Performed By: #### A LLBG ####[facility] LABCLIA [id number] [address] [place] Oxygen (Bld) [Partial pressure] 120 mm Hg High 85-95 [facility] Comment on above: Order Comment: Speci men Type: ARTERIAL BLOOD SPECIMENOrdering Facility: [facility] Address: [address] [place] [address] Performed By: #### A LLBG ####[facility] LABIA [id number] [place] [address] [place] Oxyhemoglobin (BldA) [Mass fraction] 96 % Normal 95-98 [facility] Comment on above: Order Comment: Speci men Type: ARTERIAL BLOOD SPECIMENOrdering Facility: [facility] Address: [address] Performed By: #### A LLBG ####[facility] LABIA [id number] [place] [address] [place] pH (Bld) 7.37 [pH] Normal 7.35-7.45 [facility] Comment on above: Order Comment: Speci men Type: ARTERIAL BLOOD SPECIMENOrdering Facility: [facility] Address: [address] [place], [place] [address] Performed By: #### A LLBG ####[facility] LABIA [id number] [place] [address] [place] Potassium [Moles/Vol] 4.8 mmol/L Normal 3.5-5.0 [facility] Comment on above: Order Comment: Speci men Type: ARTERIAL BLOOD SPECIMENOrdering Facility: [facility] Address: [address] [place], [place] [address] Performed By: #### A LLBG ####[facility] LABIA [id number] [place] [address] [place] Sodium [Moles/Vol] 135 mmol/L Low 136-144 [facility] Comment on above: Order Comment: Speci men Type: ARTERIAL BLOOD SPECIMENOrdering Facility: [facility] Address: [address] [place] [address] Performed By: #### A LLBG ####[facility] LABIA [id number] [place] [address] [place] Base deficit (BldA) [Moles/Vol] -4 mmol/L Low -2-0 [facility] Comment on above: Order Comment: Speci men Type: ARTERIAL BLOOD SPECIMENOrdering Facility: [facility] Address: [address] [place] [address] Performed By: #### A LLBG ####[facility] LABCLIA [id number] [place] [address] [place] Calcium.ionized (Bld) [Mass/Vol] 1.19 mmol/L Normal 1.08-1.30 [facility] Comment on above: Order Comment: Speci men Type: ARTERIAL BLOOD SPECIMENOrdering Facility: [facility] Address: [address] [place] [address] Performed By: #### A LLBG ####[facility] LABCLIA [id number] [place] [address] [place] Calcium.ionized adjusted to pH 7.4 (BldA) [Moles/Vol] 1.17 mmol/L Normal 1.08-1.30 [facility] Comment on above: Order Comment: Speci men Type: ARTERIAL BLOOD SPECIMENOrdering Facility: [facility] Address: [address] [place] [address] Performed By: #### A LLBG ####[facility] LABCLIA [id number] [place] [address] [place] Carboxyhemoglobin (BldA) [Mass fraction] 2.4 % High 0.0-2.0 [facility] Comment on above: Order Comment: Speci men Type: ARTERIAL BLOOD SPECIMENOrdering Facility: [facility] Address: [address] [place], [place] [address] Result Comment: Carb oxyhemoglobin Reference Range for Smokers: 2.0-8.0% Performed By: #### A LLBG ####[facility] LABCLIA [id number] [place] [address] [place] CO2 (Bld) [Partial pressure] 37 mm Hg Normal 36-46 [facility] Comment on above: Order Comment: Speci men Type: ARTERIAL BLOOD SPECIMENOrdering Facility: [facility] Address: [address] Performed By: #### A LLBG ####[facility] LABCLIA [id number] [place] [address] [place] CO2 adjusted to patient's actual temperature (Bld) [Partial pressure] 37 mmHg Normal 36-46 [facility] Comment on above: Order Comment: Speci men Type: ARTERIAL BLOOD SPECIMENOrdering Facility: [facility] Address: [address] Performed By: #### A LLBG ####[facility] LABCLIA [id number] [place] [address] [place] Glucose [Mass/Vol] 149 mg/dL High 60-105 [facility] Comment on above: Order Comment: Speci men Type: ARTERIAL BLOOD SPECIMENOrdering Facility: [facility] Address: [address] [place], [place] [address] Performed By: #### A LLBG ####[facility] LABCLIA [id number] [place] [address] [place] HCO3 (Bld) [Moles/Vol] 21 mmol/L Low 22-26 [facility] Comment on above: Order Comment: Speci men Type: ARTERIAL BLOOD SPECIMENOrdering Facility: [facility] Address: [address] Performed By: #### A LLBG ####[facility] LABCLIA [id number] [place] [address] [place] Hematocrit (Bld) [Volume fraction] 29.5 % Low 39.0-51.0 [facility] Comment on above: Order Comment: Speci men Type: ARTERIAL BLOOD SPECIMENOrdering Facility: [facility] Address: [address] Performed By: #### A LLBG ####[facility] LABIA [id number] [place] [address] [place] Hemoglobin (Bld) [Mass/Vol] 9.5 g/dL Low 13.0-17.0 [facility] Comment on above: Order Comment: Speci men Type: ARTERIAL BLOOD SPECIMENOrdering Facility: [facility] Address: [address] [place], [place] [address] Performed By: #### A LLBG ####[facility] LABIA [id number] [place] [address] [place] Lactate [Moles/Vol] 3.3 mmol/L High 0.5-2.2 [facility] Comment on above: Order Comment: Speci men Type: ARTERIAL BLOOD SPECIMENOrdering Facility: [facility] Address: [address] [place], [place] [address] Performed By: #### A LLBG ####[facility] LABIA [id number] [place] [address] [place] Methemoglobin (Bld) [Mass fraction] 1.8 % High 0.0-1.5 [facility] Comment on above: Order Comment: Speci men Type: ARTERIAL BLOOD SPECIMENOrdering Facility: [facility] Address: [address] [place] [address] Performed By: #### A LLBG ####[facility] LABIA [id number] [place] [address] [place] Oxygen (Bld) [Partial pressure] 117 mm Hg High 85-95 [facility] Comment on above: Order Comment: Speci men Type: ARTERIAL BLOOD SPECIMENOrdering Facility: [facility] Address: [address] [place], [place] [address] Performed By: #### A LLBG ####[facility] LABIA [id number] [address] [id number] [address] [place] Oxygen adjusted to patient's actual temperature (Bld) [Partial pressure] 117 mmHg High 85-95 [facility] Comment on above: Order Comment: Speci men Type: ARTERIAL BLOOD SPECIMENOrdering Facility: [facility] Address: [address] [place] [address] Performed By: #### A LLBG ####[facility] LABCLIA [id number] [address] [place] Oxyhemoglobin (BldA) [Mass fraction] 94 % Low 95-98 [facility] Comment on above: Order Comment: Speci men Type: ARTERIAL BLOOD SPECIMENOrdering Facility: [facility] Address: [address] [place], [place] [address] Performed By: #### A LLBG ####[facility] LABCLIA [id number] [address] [place] pH (Bld) 7.37 [pH] Normal 7.35-7.45 [facility] Comment on above: Order Comment: Speci men Type: ARTERIAL BLOOD SPECIMENOrdering Facility: [facility] Address: [address] [place], [place] [address] Performed By: #### A LLBG ####[facility] LABCLIA [id number] [address] pH adjusted to patient's actual temperature (Bld) 7.37 Normal 7.35-7.45 [facility] Comment on above: Order Comment: Speci men Type: ARTERIAL BLOOD SPECIMENOrdering Facility: [facility] Address: [address] [place], [place] [address] Performed By: #### A LLBG ####[facility] LABCLIA [id number] [place] [address] [place] Potassium [Moles/Vol] 4.8 mmol/L Normal 3.5-5.0 [facility] Comment on above: Order Comment: Speci men Type: ARTERIAL BLOOD SPECIMENOrdering Facility: [facility] Address: [address] [place] [address] Performed By: #### A LLBG ####[facility] LABCLIA [id number] [place] [address] [place] Sodium [Moles/Vol] 134 mmol/L Low 136-144 [facility] Comment on above: Order Comment: Speci men Type: ARTERIAL BLOOD SPECIMENOrdering Facility: [facility] Address: [address] Performed By: #### A LLBG ####[facility] LABIA [id number] [address] [place] Base deficit (BldA) [Moles/Vol] -2 mmol/L Normal -2-0 [facility] Comment on above: Order Comment: Speci men Type: ARTERIAL BLOOD SPECIMENOrdering Facility: [facility] Address: [address] Performed By: #### A LLBG ####[facility] LABIA [id number] [place] [address] [place] Calcium.ionized (Bld) [Mass/Vol] 1.20 mmol/L Normal 1.08-1.30 [facility] Comment on above: Order Comment: Speci men Type: ARTERIAL BLOOD SPECIMENOrdering Facility: [facility] Address: [address] [place] [address] Performed By: #### A LLBG ####[facility] LABIA [id number] [place] [address] [place] Calcium.ionized adjusted to pH 7.4 (BldA) [Moles/Vol] 1.21 mmol/L Normal 1.08-1.30 [facility] Comment on above: Order Comment: Speci men Type: ARTERIAL BLOOD SPECIMENOrdering Facility: [facility] Address: [address] [place] [address] Performed By: #### A LLBG ####[facility] LABCLIA [id number] [place] [address] [place] Carboxyhemoglobin (BldA) [Mass fraction] 2.2 % High 0.0-2.0 [facility] Comment on above: Order Comment: Speci men Type: ARTERIAL BLOOD SPECIMENOrdering Facility: [facility] Address: [address] [place] [address] Result Comment: Carb oxyhemoglobin Reference Range for Smokers: 2.0-8.0% Performed By: #### A LLBG ####[facility] LABCLIA [id number] [place] [address] [place] CO2 (Bld) [Partial pressure] 34 mm Hg Low 36-46 [facility] Comment on above: Order Comment: Speci men Type: ARTERIAL BLOOD SPECIMENOrdering Facility: [facility] Address: [address] [place] [address] Performed By: #### A LLBG ####[facility] LABIA [id number] [place] [address] [place] CO2 adjusted to patient's actual temperature (Bld) [Partial pressure] 34 mmHg Low 36-46 [facility] Comment on above: Order Comment: Speci men Type: ARTERIAL BLOOD SPECIMENOrdering Facility: [facility] Address: [address] [place] [address] Performed By: #### A LLBG ####[facility] LABIA [id number] [place] [address] [place] Glucose [Mass/Vol] 134 mg/dL High 60-105 [facility] Comment on above: Order Comment: Speci men Type: ARTERIAL BLOOD SPECIMENOrdering Facility: [facility] Address: [address] [place], [place] [address] Performed By: #### A LLBG ####[facility] LABIA [id number] [place] [address] [place] HCO3 (Bld) [Moles/Vol] 21 mmol/L Low 22-26 [facility] Comment on above: Order Comment: Speci men Type: ARTERIAL BLOOD SPECIMENOrdering Facility: [facility] Address: [address] [place], [place] [address] Performed By: #### A LLBG ####[facility] LABIA [id number] [place] [address] [place] Hematocrit (Bld) [Volume fraction] 32.2 % Low 39.0-51.0 [facility] Comment on above: Order Comment: Speci men Type: ARTERIAL BLOOD SPECIMENOrdering Facility: [facility] Address: [address] [place], [place] [address] Performed By: #### A LLBG ####[facility] LABIA [id number] [address] [place] Hemoglobin (Bld) [Mass/Vol] 10.4 g/dL Low 13.0-17.0 [facility] Comment on above: Order Comment: Speci men Type: ARTERIAL BLOOD SPECIMENOrdering Facility: [facility] Address: [address] [place], [place] [address] Performed By: #### A LLBG ####[facility] LABIA [id number] [place] [address] [place] Lactate [Moles/Vol] 2.3 mmol/L High 0.5-2.2 [facility] Comment on above: Order Comment: Speci men Type: ARTERIAL BLOOD SPECIMENOrdering Facility: [facility] Address: [address] Performed By: #### A LLBG ####[facility] LABIA [id number] [place] [address] [place] Methemoglobin (Bld) [Mass fraction] 1.4 % Normal 0.0-1.5 [facility] Comment on above: Order Comment: Speci men Type: ARTERIAL BLOOD SPECIMENOrdering Facility: [facility] Address: [address] [place], [place] Performed By: #### A LLBG ####[facility] LABCLIA [id number] [place] [address] [place] Oxygen (Bld) [Partial pressure] 179 mm Hg High 85-95 [facility] Comment on above: Order Comment: Speci men Type: ARTERIAL BLOOD SPECIMENOrdering Facility: [facility] Address: [address] Performed By: #### A LLBG ####[facility] LABCLIA [id number] [place] [address] [place] Oxygen adjusted to patient's actual temperature (Bld) [Partial pressure] 179 mmHg High 85-95 [facility] Comment on above: Order Comment: Speci men Type: ARTERIAL BLOOD SPECIMENOrdering Facility: [facility] Address: [address] Performed By: #### A LLBG ####[facility] LABCLIA [id number] [place] [address] [place] Oxyhemoglobin (BldA) [Mass fraction] 96 % Normal 95-98 [facility] Comment on above: Order Comment: Speci men Type: ARTERIAL BLOOD SPECIMENOrdering Facility: [facility] Address: [address] [place] [address] Performed By: #### A LLBG ####[facility] LABCLIA [id number] [place] [address] [place] pH (Bld) 7.41 [pH] Normal 7.35-7.45 [facility] Comment on above: Order Comment: Speci men Type: ARTERIAL BLOOD SPECIMENOrdering Facility: [facility] Address: [address] [place] [address] Performed By: #### A LLBG ####[facility] LABCLIA [id number] [place] [address] [place] pH adjusted to patient's actual temperature (Bld) 7.41 Normal 7.35-7.45 [facility] Comment on above: Order Comment: Speci men Type: ARTERIAL BLOOD SPECIMENOrdering Facility: [facility] Address: [address] [place], [place] [address] Performed By: #### A LLBG ####[facility] LABCLIA [id number] [place] [address] [place] Potassium [Moles/Vol] 4.5 mmol/L Normal 3.5-5.0 [facility] Comment on above: Order Comment: Speci men Type: ARTERIAL BLOOD SPECIMENOrdering Facility: [facility] Address: [address] [place], [place] [address] Performed By: #### A LLBG ####[facility] LABCLIA [id number] [place] [address] [place] Sodium [Moles/Vol] 135 mmol/L Low 136-144 [facility] Comment on above: Order Comment: Speci men Type: ARTERIAL BLOOD SPECIMENOrdering Facility: [facility] Address: [address] [place], [place] [address] Performed By: #### A LLBG ####[facility] LABCLIA [id number] [place] [address] [place] ARTERIAL BLOOD GASES WITH IO NIZED MAGNESIUMon 04-04-2023 Base deficit (BldA) [Moles/Vol] -4 mmol/L Low -2-0 [facility] Comment on above: Order Comment: Speci men Type: ARTERIAL BLOOD SPECIMENOrdering Facility: [facility] Address: [address] [place], [place] [address] Performed By: #### A LLMG ####[facility] LABCLIA [id number] [place] [address] [place] Calcium.ionized (Bld) [Mass/Vol] 1.18 mmol/L Normal 1.08-1.30 [facility] Comment on above: Order Comment: Speci men Type: ARTERIAL BLOOD SPECIMENOrdering Facility: [facility] Address: [address] [place] [address] Performed By: #### A LLMG ####[facility] LABCLIA [id number] [place] [address] [place] Calcium.ionized adjusted to pH 7.4 (BldA) [Moles/Vol] 1.15 mmol/L Normal 1.08-1.30 [facility] Comment on above: Order Comment: Speci men Type: ARTERIAL BLOOD SPECIMENOrdering Facility: [facility] Address: [address] [place] [address] Performed By: #### A LLMG ####[facility] LABIA [id number] [place] [address] [place] Carboxyhemoglobin (BldA) [Mass fraction] 2.6 % High 0.0-2.0 [facility] Comment on above: Order Comment: Speci men Type: ARTERIAL BLOOD SPECIMENOrdering Facility: [facility] Address: [address] [place] [address] Result Comment: Carb oxyhemoglobin Reference Range for Smokers: 2.0-8.0% Performed By: #### A LLMG ####[facility] LABIA [id number] [place] [address] [place] CO2 (Bld) [Partial pressure] 36 mm Hg Normal 36-46 [facility] Comment on above: Order Comment: Speci men Type: ARTERIAL BLOOD SPECIMENOrdering Facility: [facility] Address: [address] [place] [address] Performed By: #### A LLMG ####[facility] LABCLIA [id number] [place] [address] [place] CO2 adjusted to patient's actual temperature (Bld) [Partial pressure] 36 mmHg Normal 36-46 [facility] Comment on above: Order Comment: Speci men Type: ARTERIAL BLOOD SPECIMENOrdering Facility: [facility] Address: [address] Performed By: #### A LLMG ####[facility] LABCLIA [id number] [place] [address] [place] Glucose [Mass/Vol] 141 mg/dL High 60-105 [facility] Comment on above: Order Comment: Speci men Type: ARTERIAL BLOOD SPECIMENOrdering Facility: [facility] Address: [address] Performed By: #### A LLMG ####[facility] LABCLIA [id number] [place] [address] [place] HCO3 (Bld) [Moles/Vol] 20 mmol/L Low 22-26 [facility] Comment on above: Order Comment: Speci men Type: ARTERIAL BLOOD SPECIMENOrdering Facility: [facility] Address: [address] [place], [place] [address] Performed By: #### A LLMG ####[facility] LABIA [id number] [place] [address] [place] Hematocrit (Bld) [Volume fraction] 29.2 % Low 39.0-51.0 [facility] Comment on above: Order Comment: Speci men Type: ARTERIAL BLOOD SPECIMENOrdering Facility: [facility] Address: [address] [place], [place] [address] Performed By: #### A LLMG ####[facility] LABCLIA [id number] [place] [address] [place] Hemoglobin (Bld) [Mass/Vol] 9.4 g/dL Low 13.0-17.0 [facility] Comment on above: Order Comment: Speci men Type: ARTERIAL BLOOD SPECIMENOrdering Facility: [facility] Address: [address] [place], [place] [address] Performed By: #### A LLMG ####[facility] LABCLIA [id number] [place] [address] [place] Lactate [Moles/Vol] 2.7 mmol/L High 0.5-2.2 [facility] Comment on above: Order Comment: Speci men Type: ARTERIAL BLOOD SPECIMENOrdering Facility: [facility] Address: [address] [place] [address] Performed By: #### A LLMG ####[facility] LABIA [id number] [place] [address] [place] Magnesium [Moles/Vol] 0.78 mmol/L High 0.45-0.60 [facility] Comment on above: Order Comment: Speci men Type: ARTERIAL BLOOD SPECIMENOrdering Facility: [facility] Address: [address] [place] [address] Performed By: #### A LLMG ####[facility] LABIA [id number] [address] [place] Methemoglobin (Bld) [Mass fraction] 1.1 % Normal 0.0-1.5 [facility] Comment on above: Order Comment: Speci men Type: ARTERIAL BLOOD SPECIMENOrdering Facility: [facility] Address: [address] [place], [place] [address] Performed By: #### A LLMG ####[facility] LABIA [id number] [place] [address] [place] Oxygen (Bld) [Partial pressure] 186 mm Hg High 85-95 [facility] Comment on above: Order Comment: Speci men Type: ARTERIAL BLOOD SPECIMENOrdering Facility: [facility] Address: [address] [place], [place] [address] Performed By: #### A LLMG ####[facility] LABCLIA [id number] [place] [address] [place] Oxygen adjusted to patient's actual temperature (Bld) [Partial pressure] 186 mmHg High 85-95 [facility] Comment on above: Order Comment: Speci men Type: ARTERIAL BLOOD SPECIMENOrdering Facility: [facility] Address: [address] [place], [place] [address] Performed By: #### A LLMG ####[facility] LABCLIA [id number] [place] [address] [place] Oxyhemoglobin (BldA) [Mass fraction] 96 % Normal 95-98 [facility] Comment on above: Order Comment: Speci men Type: ARTERIAL BLOOD SPECIMENOrdering Facility: [facility] Address: [address] Performed By: #### A LLMG ####[facility] LABCLIA [id number] [place] [address] [place] pH (Bld) 7.36 [pH] Normal 7.35-7.45 [facility] Comment on above: Order Comment: Speci men Type: ARTERIAL BLOOD SPECIMENOrdering Facility: [facility] Address: [address] [place], [place] [address] Performed By: #### A LLMG ####[facility] LABCLIA [id number] [place] [address] [place] pH adjusted to patient's actual temperature (Bld) 7.36 Normal 7.35-7.45 [facility] Comment on above: Order Comment: Speci men Type: ARTERIAL BLOOD SPECIMENOrdering Facility: [facility] Address: [address] Performed By: #### A LLMG ####[facility] LABCLIA [id number] [place] [address] [place] Potassium [Moles/Vol] 4.5 mmol/L Normal 3.5-5.0 [facility] Comment on above: Order Comment: Speci men Type: ARTERIAL BLOOD SPECIMENOrdering Facility: [facility] Address: [address] [place], [place] [address] Performed By: #### A LLMG ####[facility] LABCLIA [id number] [place] [address] [place] Sodium [Moles/Vol] 133 mmol/L Low 136-144 [facility] Comment on above: Order Comment: Speci men Type: ARTERIAL BLOOD SPECIMENOrdering Facility: [facility] Address: [address] [place] [address] Performed By: #### A LLMG ####[facility] [id number] [place] [address] [place] Base deficit (BldA) [Moles/Vol] -4 mmol/L Low -2-0 [facility] Comment on above: Order Comment: Speci men Type: ARTERIAL BLOOD SPECIMENOrdering Facility: [facility] Address: [address] [place] [address] Performed By: #### A LLMG ####[facility] [id number] [place] [address] [place] Calcium.ionized (Bld) [Mass/Vol] 1.22 mmol/L Normal 1.08-1.30 [facility] Comment on above: Order Comment: Speci men Type: ARTERIAL BLOOD SPECIMENOrdering Facility: [facility] Address: [address] [place], [place] [address] Performed By: #### A LLMG ####[facility] [id number] [place] [address] [place] Calcium.ionized adjusted to pH 7.4 (BldA) [Moles/Vol] 1.19 mmol/L Normal 1.08-1.30 [facility] Comment on above: Order Comment: Speci men Type: ARTERIAL BLOOD SPECIMENOrdering Facility: [facility] Address: [address] [place], [place] [address] Performed By: #### A LLMG ####[facility] [id number] [place] [address] [place] Carboxyhemoglobin (BldA) [Mass fraction] 2.1 % High 0.0-2.0 [facility] Comment on above: Order Comment: Speci men Type: ARTERIAL BLOOD SPECIMENOrdering Facility: [facility] Address: [address] [place], [place] [address] Result Comment: Carb oxyhemoglobin Reference Range for Smokers: 2.0-8.0% Performed By: #### A LLMG ####[facility] LABCLIA [id number] [place] [address] [place] CO2 (Bld) [Partial pressure] 38 mm Hg Normal 36-46 [facility] Comment on above: Order Comment: Speci men Type: ARTERIAL BLOOD SPECIMENOrdering Facility: [facility] Address: [address] [place] [address] Performed By: #### A LLMG ####[facility] LABCLIA [id number] [place] [address] [place] CO2 adjusted to patient's actual temperature (Bld) [Partial pressure] 38 mmHg Normal 36-46 [facility] Comment on above: Order Comment: Speci men Type: ARTERIAL BLOOD SPECIMENOrdering Facility: [facility] Address: [address] [place], [place] [address] Performed By: #### A LLMG ####[facility] LABCLIA [id number] [place] [address] [place] Glucose [Mass/Vol] 138 mg/dL High 60-105 [facility] Comment on above: Order Comment: Speci men Type: ARTERIAL BLOOD SPECIMENOrdering Facility: [facility] Address: [address] [place] [address] Performed By: #### A LLMG ####[facility] LABCLIA [id number] [place] [address] [place] HCO3 (Bld) [Moles/Vol] 21 mmol/L Low 22-26 [facility] Comment on above: Order Comment: Speci men Type: ARTERIAL BLOOD SPECIMENOrdering Facility: [facility] Address: [address] Performed By: #### A LLMG ####[facility] LABCLIA [id number] [address] [place] Hematocrit (Bld) [Volume fraction] 30.7 % Low 39.0-51.0 [facility] Comment on above: Order Comment: Speci men Type: ARTERIAL BLOOD SPECIMENOrdering Facility: [facility] Address: [address] [place] [address] Performed By: #### A LLMG ####[facility] LABCLIA [id number] [place] [address] [place] Hemoglobin (Bld) [Mass/Vol] 9.9 g/dL Low 13.0-17.0 [facility] Comment on above: Order Comment: Speci men Type: ARTERIAL BLOOD SPECIMENOrdering Facility: [facility] Address: [address] [place] [address] Performed By: #### A LLMG ####[facility] LABCLIA [id number] [place] [address] [place] Lactate [Moles/Vol] 2.6 mmol/L High 0.5-2.2 [facility] Comment on above: Order Comment: Speci men Type: ARTERIAL BLOOD SPECIMENOrdering Facility: [facility] Address: [address] [place], [place] [address] Performed By: #### A LLMG ####[facility] LABCLIA [id number] [place] [address] [place] Magnesium [Moles/Vol] 0.49 mmol/L Normal 0.45-0.60 [facility] Comment on above: Order Comment: Speci men Type: ARTERIAL BLOOD SPECIMENOrdering Facility: [facility] Address: [address] [place], [place] [address] Performed By: #### A LLMG ####[facility] LABCLIA [id number] [place] [address] [place] Methemoglobin (Bld) [Mass fraction] 1.8 % High 0.0-1.5 [facility] Comment on above: Order Comment: Speci men Type: ARTERIAL BLOOD SPECIMENOrdering Facility: [facility] Address: [address] [place] [address] Performed By: #### A LLMG ####[facility] LABCLIA [id number] [place] [address] [place] Oxygen (Bld) [Partial pressure] 249 mm Hg High 85-95 [facility] Comment on above: Order Comment: Speci men Type: ARTERIAL BLOOD SPECIMENOrdering Facility: [facility] Address: [address] [place] [address] Performed By: #### A LLMG ####[facility] LABCLIA [id number] [place] [address] [place] Oxygen adjusted to patient's actual temperature (Bld) [Partial pressure] 249 mmHg High 85-95 [facility] Comment on above: Order Comment: Speci men Type: ARTERIAL BLOOD SPECIMENOrdering Facility: [facility] Address: [address] [place], [place] [address] Performed By: #### A LLMG ####[facility] LABCLIA [id number] [place] [address] [place] Oxyhemoglobin (BldA) [Mass fraction] 95 % Normal 95-98 [facility] Comment on above: Order Comment: Speci men Type: ARTERIAL BLOOD SPECIMENOrdering Facility: [facility] Address: [address] [place], [place] [address] Performed By: #### A LLMG ####[facility] LABCLIA [id number] [place] [address] [place] pH (Bld) 7.35 [pH] Normal 7.35-7.45 [facility] Comment on above: Order Comment: Speci men Type: ARTERIAL BLOOD SPECIMENOrdering Facility: [facility] Address: [address] Performed By: #### A LLMG ####[facility] LABCLIA [id number] [place] [address] [place] pH adjusted to patient's actual temperature (Bld) 7.35 Normal 7.35-7.45 [facility] Comment on above: Order Comment: Speci men Type: ARTERIAL BLOOD SPECIMENOrdering Facility: [facility] Address: [address] Performed By: #### A LLMG ####[facility] LABCLIA [id number] [place] [address] [place] Potassium [Moles/Vol] 4.4 mmol/L Normal 3.5-5.0 [facility] Comment on above: Order Comment: Speci men Type: ARTERIAL BLOOD SPECIMENOrdering Facility: [facility] Address: [address] Performed By: #### A LLMG ####[facility] LABCLIA [id number] [place] [address] [place] Sodium [Moles/Vol] 134 mmol/L Low 136-144 [facility] Comment on above: Order Comment: Speci men Type: ARTERIAL BLOOD SPECIMENOrdering Facility: [facility] Address: [address] [place] [address] Performed By: #### A LLMG ####[facility] LABCLIA [id number] [place] [address] [place] Base deficit (BldA) [Moles/Vol] -3 mmol/L Low -2-0 [facility] Comment on above: Order Comment: Speci men Type: ARTERIAL BLOOD SPECIMENOrdering Facility: [facility] Address: [address] Performed By: #### A LLMG ####[facility] LABCLIA [id number] [place] [address] [place] Calcium.ionized (Bld) [Mass/Vol] 1.19 mmol/L Normal 1.08-1.30 [facility] Comment on above: Order Comment: Speci men Type: ARTERIAL BLOOD SPECIMENOrdering Facility: [facility] Address: [address] [place] [address] Performed By: #### A LLMG ####[facility] LABCLIA [id number] [place] [address] [place] Calcium.ionized adjusted to pH 7.4 (BldA) [Moles/Vol] 1.20 mmol/L Normal 1.08-1.30 [facility] Comment on above: Order Comment: Speci men Type: ARTERIAL BLOOD SPECIMENOrdering Facility: [facility] Address: [address] [place] [address] Performed By: #### A LLMG ####[facility] LABIA [id number] [place] [address] [place] Carboxyhemoglobin (BldA) [Mass fraction] 2.4 % High 0.0-2.0 [facility] Comment on above: Order Comment: Speci men Type: ARTERIAL BLOOD SPECIMENOrdering Facility: [facility] Address: [address] [place] [address] Result Comment: Carb oxyhemoglobin Reference Range for Smokers: 2.0-8.0% Performed By: #### A LLMG ####[facility] LABCLIA [id number] [place] [address] [place] CO2 (Bld) [Partial pressure] 33 mm Hg Low 36-46 [facility] Comment on above: Order Comment: Speci men Type: ARTERIAL BLOOD SPECIMENOrdering Facility: [facility] Address: [address] [place] [address] Performed By: #### A LLMG ####[facility] LABCLIA [id number] [address] [place] CO2 adjusted to patient's actual temperature (Bld) [Partial pressure] 33 mmHg Low 36-46 [facility] Comment on above: Order Comment: Speci men Type: ARTERIAL BLOOD SPECIMENOrdering Facility: [facility] Address: [address] [place] [address] Performed By: #### A LLMG ####[facility] LABCLIA [id number] [place] [address] [place] Glucose [Mass/Vol] 147 mg/dL High 60-105 [facility] Comment on above: Order Comment: Speci men Type: ARTERIAL BLOOD SPECIMENOrdering Facility: [facility] Address: [address] [place], [place] [address] Performed By: #### A LLMG ####[facility] LABCLIA [id number] [place] [address] [place] HCO3 (Bld) [Moles/Vol] 21 mmol/L Low 22-26 [facility] Comment on above: Order Comment: Speci men Type: ARTERIAL BLOOD SPECIMENOrdering Facility: [facility] Address: [address] [place], [place] [address] Performed By: #### A LLMG ####[facility] LABCLIA [id number] [place] [address] [place] Hematocrit (Bld) [Volume fraction] 30.9 % Low 39.0-51.0 [facility] Comment on above: Order Comment: Speci men Type: ARTERIAL BLOOD SPECIMENOrdering Facility: [facility] Address: [address] [place], [place] [address] Performed By: #### A LLMG ####[facility] LABCLIA [id number] [place] [address] [place] Hemoglobin (Bld) [Mass/Vol] 10.0 g/dL Low 13.0-17.0 [facility] Comment on above: Order Comment: Speci men Type: ARTERIAL BLOOD SPECIMENOrdering Facility: [facility] Address: [address] Performed By: #### A LLMG ####[facility] LABCLIA [id number] [place] [address] [place] Lactate [Moles/Vol] 2.2 mmol/L Normal 0.5-2.2 [facility] Comment on above: Order Comment: Speci men Type: ARTERIAL BLOOD SPECIMENOrdering Facility: [facility] Address: [address] Performed By: #### A LLMG ####[facility] LABIA [id number] [place] [address] [place] Magnesium [Moles/Vol] 0.37 mmol/L Low 0.45-0.60 [facility] Comment on above: Order Comment: Speci men Type: ARTERIAL BLOOD SPECIMENOrdering Facility: [facility] Address: [address] [place], [place] [address] Performed By: #### A LLMG ####[facility] LABIA [id number] [place] [address] [place] Methemoglobin (Bld) [Mass fraction] 1.9 % High 0.0-1.5 [facility] Comment on above: Order Comment: Speci men Type: ARTERIAL BLOOD SPECIMENOrdering Facility: [facility] Address: [address] Performed By: #### A LLMG ####[facility] LABIA [id number] [place] [address] [place] Oxygen (Bld) [Partial pressure] 172 mm Hg High 85-95 [facility] Comment on above: Order Comment: Speci men Type: ARTERIAL BLOOD SPECIMENOrdering Facility: [facility] Address: [address] Performed By: #### A LLMG ####[facility] LABCLIA [id number] [place] [address] [place] Oxygen adjusted to patient's actual temperature (Bld) [Partial pressure] 172 mmHg High 85-95 [facility] Comment on above: Order Comment: Speci men Type: ARTERIAL BLOOD SPECIMENOrdering Facility: [facility] Address: [address] [place] [address] Performed By: #### A LLMG ####[facility] LABIA [id number] [place] [address] [place] Oxyhemoglobin (BldA) [Mass fraction] 95 % Normal 95-98 [facility] Comment on above: Order Comment: Speci men Type: ARTERIAL BLOOD SPECIMENOrdering Facility: [facility] Address: [address] [place] [address] Performed By: #### A LLMG ####[facility] LABIA [id number] [place] [address] [place] pH (Bld) 7.41 [pH] Normal 7.35-7.45 [facility] Comment on above: Order Comment: Speci men Type: ARTERIAL BLOOD SPECIMENOrdering Facility: [facility] Address: [address] [place], [place] [address] Performed By: #### A LLMG ####[facility] LABIA [id number] [place] [address] [place] pH adjusted to patient's actual temperature (Bld) 7.41 Normal 7.35-7.45 [facility] Comment on above: Order Comment: Speci men Type: ARTERIAL BLOOD SPECIMENOrdering Facility: [facility] Address: [address] [place], [place] [address] Performed By: #### A LLMG ####[facility] LABCLIA [id number] [place] [address] [place] Potassium [Moles/Vol] 4.2 mmol/L Normal 3.5-5.0 [facility] Comment on above: Order Comment: Speci men Type: ARTERIAL BLOOD SPECIMENOrdering Facility: [facility] Address: [address] [place] [address] Performed By: #### A LLMG ####[facility] LABIA [id number] [place] [address] [place] Sodium [Moles/Vol] 133 mmol/L Low 136-144 [facility] Comment on above: Order Comment: Speci men Type: ARTERIAL BLOOD SPECIMENOrdering Facility: [facility] Address: [address] [place] [address] Performed By: #### A LLMG ####[facility] LABIA [id number] [address] [place] Base deficit (BldA) [Moles/Vol] -2 mmol/L Normal -2-0 [facility] Comment on above: Order Comment: Speci men Type: ARTERIAL BLOOD SPECIMENOrdering Facility: [facility] Address: [address] [place] [address] Performed By: #### A LLMG ####[facility] LABIA [id number] [place] [address] [place] Calcium.ionized (Bld) [Mass/Vol] 1.23 mmol/L Normal 1.08-1.30 [facility] Comment on above: Order Comment: Speci men Type: ARTERIAL BLOOD SPECIMENOrdering Facility: [facility] Address: [address] Performed By: #### A LLMG ####[facility] LABIA [id number] [place] [address] [place] Calcium.ionized adjusted to pH 7.4 (BldA) [Moles/Vol] 1.24 mmol/L Normal 1.08-1.30 [facility] Comment on above: Order Comment: Speci men Type: ARTERIAL BLOOD SPECIMENOrdering Facility: [facility] Address: [address] [place], [place] [address] Performed By: #### A LLMG ####[facility] LABCLIA [id number] [address] [place] Carboxyhemoglobin (BldA) [Mass fraction] 2.7 % High 0.0-2.0 [facility] Comment on above: Order Comment: Speci men Type: ARTERIAL BLOOD SPECIMENOrdering Facility: [facility] Address: [address] [place] [address] Result Comment: Carb oxyhemoglobin Reference Range for Smokers: 2.0-8.0% Performed By: #### A LLMG ####[facility] LABCLIA [id number] [place] [address] [place] CO2 (Bld) [Partial pressure] 35 mm Hg Low 36-46 [facility] Comment on above: Order Comment: Speci men Type: ARTERIAL BLOOD SPECIMENOrdering Facility: [facility] Address: [address] Performed By: #### A LLMG ####[facility] LABCLIA [id number] [address] [place] CO2 adjusted to patient's actual temperature (Bld) [Partial pressure] 35 mmHg Low 36-46 [facility] Comment on above: Order Comment: Speci men Type: ARTERIAL BLOOD SPECIMENOrdering Facility: [facility] Address: [address] Performed By: #### A LLMG ####[facility] LABCLIA [id number] [place] [address] [place] Glucose [Mass/Vol] 140 mg/dL High 60-105 [facility] Comment on above: Order Comment: Speci men Type: ARTERIAL BLOOD SPECIMENOrdering Facility: [facility] Address: [address] Performed By: #### A LLMG ####[facility] LABCLIA [id number] [place] [address] [place] HCO3 (Bld) [Moles/Vol] 22 mmol/L Normal 22-26 [facility] Comment on above: Order Comment: Speci men Type: ARTERIAL BLOOD SPECIMENOrdering Facility: [facility] Address: [address] [place] [address] Performed By: #### A LLMG ####[facility] LABIA [id number] [place] [address] [place] Hematocrit (Bld) [Volume fraction] 28.5 % Low 39.0-51.0 [facility] Comment on above: Order Comment: Speci men Type: ARTERIAL BLOOD SPECIMENOrdering Facility: [facility] Address: [address] [place] [address] Performed By: #### A LLMG ####[facility] LABCLIA [id number] [place] [address] [place] Hemoglobin (Bld) [Mass/Vol] 9.2 g/dL Low 13.0-17.0 [facility] Comment on above: Order Comment: Speci men Type: ARTERIAL BLOOD SPECIMENOrdering Facility: [facility] Address: [address] [place] [address] Performed By: #### A LLMG ####[facility] LABIA [id number] [place] [address] [place] Lactate [Moles/Vol] 2.0 mmol/L Normal 0.5-2.2 [facility] Comment on above: Order Comment: Speci men Type: ARTERIAL BLOOD SPECIMENOrdering Facility: [facility] Address: [address] [place] [address] Performed By: #### A LLMG ####[facility] LABCLIA [id number] [place] [address] [place] Magnesium [Moles/Vol] 0.36 mmol/L Low 0.45-0.60 [facility] Comment on above: Order Comment: Speci men Type: ARTERIAL BLOOD SPECIMENOrdering Facility: [facility] Address: [address] [place] [address] Performed By: #### A LLMG ####[facility] LABCLIA [id number] [place] [address] [place] Methemoglobin (Bld) [Mass fraction] 1.7 % High 0.0-1.5 [facility] Comment on above: Order Comment: Speci men Type: ARTERIAL BLOOD SPECIMENOrdering Facility: [facility] Address: [address] Performed By: #### A LLMG ####[facility] LABCLIA [id number] [place] [address] [place] Oxygen (Bld) [Partial pressure] 128 mm Hg High 85-95 [facility] Comment on above: Order Comment: Speci men Type: ARTERIAL BLOOD SPECIMENOrdering Facility: [facility] Address: [address] [place] [address] Performed By: #### A LLMG ####[facility] LABCLIA [id number] [place] [address] [place] Oxygen adjusted to patient's actual temperature (Bld) [Partial pressure] 128 mmHg High 85-95 [facility] Comment on above: Order Comment: Speci men Type: ARTERIAL BLOOD SPECIMENOrdering Facility: [facility] Address: [address] [place] [address] Performed By: #### A LLMG ####[facility] LABCLIA [id number] [place] [address] [place] Oxyhemoglobin (BldA) [Mass fraction] 95 % Normal 95-98 [facility] Comment on above: Order Comment: Speci men Type: ARTERIAL BLOOD SPECIMENOrdering Facility: [facility] Address: [address] [place] [address] Performed By: #### A LLMG ####[facility] LABCLIA [id number] [place] [address] [place] pH (Bld) 7.41 [pH] Normal 7.35-7.45 [facility] Comment on above: Order Comment: Speci men Type: ARTERIAL BLOOD SPECIMENOrdering Facility: [facility] Address: [address] [place] [address] Performed By: #### A LLMG ####[facility] LABCLIA [id number] [place] [address] [place] pH adjusted to patient's actual temperature (Bld) 7.41 Normal 7.35-7.45 [facility] Comment on above: Order Comment: Speci men Type: ARTERIAL BLOOD SPECIMENOrdering Facility: [facility] Address: [address] [place] [address] Performed By: #### A LLMG ####[facility] LABCLIA [id number] [place] [address] [place] Potassium [Moles/Vol] 4.2 mmol/L Normal 3.5-5.0 [facility] Comment on above: Order Comment: Speci men Type: ARTERIAL BLOOD SPECIMENOrdering Facility: [facility] Address: [address] [place], [place] [address] Performed By: #### A LLMG ####[facility] LABIA [id number] [place] [address] [place] Sodium [Moles/Vol] 134 mmol/L Low 136-144 [facility] Comment on above: Order Comment: Speci men Type: ARTERIAL BLOOD SPECIMENOrdering Facility: [facility] Address: [address] [place], [place] [address] Performed By: #### A LLMG ####[facility] LABCLIA [id number] [place] [address] [place] Base excess Calc (Bld) [Moles/Vol] 0 mmol/L Normal 0-2 [facility] Comment on above: Order Comment: Speci men Type: ARTERIAL BLOOD SPECIMENOrdering Facility: [facility] Address: [address] [place] [address] Performed By: #### A LLMG ####[facility] LABCLIA [id number] [place] [address] [place] Calcium.ionized (Bld) [Mass/Vol] 1.28 mmol/L Normal 1.08-1.30 [facility] Comment on above: Order Comment: Speci men Type: ARTERIAL BLOOD SPECIMENOrdering Facility: [facility] Address: [address] [place] [address] Performed By: #### A LLMG ####[facility] LABIA [id number] [place] [address] [place] Calcium.ionized adjusted to pH 7.4 (BldA) [Moles/Vol] 1.32 mmol/L High 1.08-1.30 [facility] Comment on above: Order Comment: Speci men Type: ARTERIAL BLOOD SPECIMENOrdering Facility: [facility] Address: [address] [place] [address] Performed By: #### A LLMG ####[facility] LABIA [id number] [place] [address] [place] Carboxyhemoglobin (BldA) [Mass fraction] 3.8 % High 0.0-2.0 [facility] Comment on above: Order Comment: Speci men Type: ARTERIAL BLOOD SPECIMENOrdering Facility: [facility] Address: [address] [place] [address] Result Comment: Carb oxyhemoglobin Reference Range for Smokers: 2.0-8.0% Performed By: #### A LLMG ####[facility] LABIA [id number] [place] [address] [place] CO2 (Bld) [Partial pressure] 33 mm Hg Low 36-46 [facility] Comment on above: Order Comment: Speci men Type: ARTERIAL BLOOD SPECIMENOrdering Facility: [facility] Address: [address] Performed By: #### A LLMG ####[facility] LABCLIA [id number] [address] [place] CO2 adjusted to patient's actual temperature (Bld) [Partial pressure] 33 mmHg Low 36-46 [facility] Comment on above: Order Comment: Speci men Type: ARTERIAL BLOOD SPECIMENOrdering Facility: [facility] Address: [address] Performed By: #### A LLMG ####[facility] LABCLIA [id number] [place] [address] [place] Glucose [Mass/Vol] 130 mg/dL High 60-105 [facility] Comment on above: Order Comment: Speci men Type: ARTERIAL BLOOD SPECIMENOrdering Facility: [facility] Address: [address] [place], [place] [address] Performed By: #### A LLMG ####[facility] LABCLIA [id number] [place] [address] [place] HCO3 (Bld) [Moles/Vol] 23 mmol/L Normal 22-26 [facility] Comment on above: Order Comment: Speci men Type: ARTERIAL BLOOD SPECIMENOrdering Facility: [facility] Address: [address] Performed By: #### A LLMG ####[facility] LABCLIA [id number] [place] [address] [place] Hematocrit (Bld) [Volume fraction] 24.1 % Low 39.0-51.0 [facility] Comment on above: Order Comment: Speci men Type: ARTERIAL BLOOD SPECIMENOrdering Facility: [facility] Address: [address] [place], [place] [address] Performed By: #### A LLMG ####[facility] LABCLIA [id number] [place] [address] [place] Hemoglobin (Bld) [Mass/Vol] 7.7 g/dL Low 13.0-17.0 [facility] Comment on above: Order Comment: Speci men Type: ARTERIAL BLOOD SPECIMENOrdering Facility: [facility] Address: [address] [place] [address] Performed By: #### A LLMG ####[facility] LABIA [id number] [place] [address] [place] Lactate [Moles/Vol] 1.4 mmol/L Normal 0.5-2.2 [facility] Comment on above: Order Comment: Speci men Type: ARTERIAL BLOOD SPECIMENOrdering Facility: [facility] Address: [address] [place] [address] Performed By: #### A LLMG ####[facility] LABIA [id number] [place] [address] [place] Magnesium [Moles/Vol] 0.35 mmol/L Low 0.45-0.60 [facility] Comment on above: Order Comment: Speci men Type: ARTERIAL BLOOD SPECIMENOrdering Facility: [facility] Address: [address] [place], [place] [address] Performed By: #### A LLMG ####[facility] LABIA [id number] [place] [address] [place] Methemoglobin (Bld) [Mass fraction] 0.8 % Normal 0.0-1.5 [facility] Comment on above: Order Comment: Speci men Type: ARTERIAL BLOOD SPECIMENOrdering Facility: [facility] Address: [address] [place], [place] [address] Performed By: #### A LLMG ####[facility] LABIA [id number] [place] [address] [place] Oxygen (Bld) [Partial pressure] 141 mm Hg High 85-95 [facility] Comment on above: Order Comment: Speci men Type: ARTERIAL BLOOD SPECIMENOrdering Facility: [facility] Address: [address] Performed By: #### A LLMG ####[facility] LABCLIA [id number] [place] [address] [place] Oxygen adjusted to patient's actual temperature (Bld) [Partial pressure] 141 mmHg High 85-95 [facility] Comment on above: Order Comment: Speci men Type: ARTERIAL BLOOD SPECIMENOrdering Facility: [facility] Address: [address] Performed By: #### A LLMG ####[facility] LABIA [id number] [place] [address] [place] Oxyhemoglobin (BldA) [Mass fraction] 95 % Normal 95-98 [facility] Comment on above: Order Comment: Speci men Type: ARTERIAL BLOOD SPECIMENOrdering Facility: [facility] Address: [address] Performed By: #### A LLMG ####[facility] LABIA [id number] [place] [address] [place] pH (Bld) 7.46 [pH] High 7.35-7.45 [facility] Comment on above: Order Comment: Speci men Type: ARTERIAL BLOOD SPECIMENOrdering Facility: [facility] Address: [address] [place] [address] Performed By: #### A LLMG ####[facility] LABCLIA [id number] [place] [address] [place] pH adjusted to patient's actual temperature (Bld) 7.46 High 7.35-7.45 [facility] Comment on above: Order Comment: Speci men Type: ARTERIAL BLOOD SPECIMENOrdering Facility: [facility] Address: [address] Performed By: #### A LLMG ####[facility] LABIA [id number] [place] [address] [place] Potassium [Moles/Vol] 3.8 mmol/L Normal 3.5-5.0 [facility] Comment on above: Order Comment: Speci men Type: ARTERIAL BLOOD SPECIMENOrdering Facility: [facility] Address: [address] [place] [address] Performed By: #### A LLMG ####[facility] [id number] [address] [place] Sodium [Moles/Vol] 136 mmol/L Normal 136-144 [facility] Comment on above: Order Comment: Speci men Type: ARTERIAL BLOOD SPECIMENOrdering Facility: [facility] Address: [address] [place] [address] Performed By: #### A LLMG ####[facility] [id number] [place] [address] [place] Amylase SerPl-cCncon 023 Amylase [Catalytic activity/Vol] 29 U/L Low 30-104 [facility] Comment on above: Order Comment: Speci men Type: BLOOD SPECIMENOrdering Facility: [facility] Address: [address] [place] [address] Performed By: #### H STNT, 28732-5, 84832-7, 2777-1, 1798-8 ####[facility] [id number] [place] [address] [place] BRIEF OP NOTon 04-04-2023 BRIEF OP NOT Normal [facility] CBC W Auto Differential pane l (Bld)on 04-04-2023 Basophils (Bld) [#/Vol] 0.05 10*3/uL Normal <0.11 [facility] Comment on above: Order Comment: Speci men Type: BLOOD SPECIMENOrdering Facility: [facility] Address: [address] [place] [address] Performed By: #### 5 7021-8 ####[facility] LABCLIA [id number] [address] [place] Basophils/100 WBC (Bld) 1.1 % Normal [facility] Comment on above: Order Comment: Speci men Type: BLOOD SPECIMENOrdering Facility: [facility] Address: [address] [place], [place] [address] Performed By: #### 5 7021-8 ####[facility] LABCLIA [id number] [place] [address] [place] Differential cell count method Nom (Bld) Auto Normal [facility] Comment on above: Order Comment: Speci men Type: BLOOD SPECIMENOrdering Facility: [facility] Address: [address] [place], [place] [address] Performed By: #### 5 7021-8 ####[facility] LABCLIA [id number] [place] [address] [place] Eosinophils (Bld) [#/Vol] 0.15 10*3/uL Normal <0.46 [facility] Comment on above: Order Comment: Speci men Type: BLOOD SPECIMENOrdering Facility: [facility] Address: [address] [place], [place] [address] Performed By: #### 5 7021-8 ####[facility] LABCLIA [id number] [address] [place] Eosinophils/100 WBC (Bld) 3.4 % Normal [facility] Comment on above: Order Comment: Speci men Type: BLOOD SPECIMENOrdering Facility: [facility] Address: [address] [place], [place] [address] Performed By: #### 5 7021-8 ####[facility] LABCLIA [id number] [place] [address] [place] Erythrocyte distribution width (RBC) [Ratio] 13.2 % Normal 11.5-15.0 [facility] Comment on above: Order Comment: Speci men Type: BLOOD SPECIMENOrdering Facility: [facility] Address: [address] Performed By: #### 5 7021-8 ####[facility] LABCLIA [id number] [place] [address] [place] Hematocrit (Bld) [Volume fraction] 27.6 % Low 39.0-51.0 [facility] Comment on above: Order Comment: Speci men Type: BLOOD SPECIMENOrdering Facility: [facility] Address: [address] Performed By: #### 5 7021-8 ####[facility] LABIA [id number] [place] [address] [place] Hemoglobin (Bld) [Mass/Vol] 9.5 g/dL Low 13.0-17.0 [facility] Comment on above: Order Comment: Speci men Type: BLOOD SPECIMENOrdering Facility: [facility] Address: [address] Performed By: #### 5 7021-8 ####[facility] LABIA [id number] [place] [address] [place] Immature granulocytes (Bld) [#/Vol] 10*3/uL Normal <0.10 [facility] Comment on above: Order Comment: Speci men Type: BLOOD SPECIMENOrdering Facility: [facility] Address: [address] Performed By: #### 5 7021-8 ####[facility] LABCLIA [id number] [address] [place] Immature granulocytes/100 WBC (Bld) 0.2 % Normal [facility] Comment on above: Order Comment: Speci men Type: BLOOD SPECIMENOrdering Facility: [facility] Address: [address] Performed By: #### 5 7021-8 ####[facility] LABCLIA [id number] [place] [address] [place] Lymphocytes (Bld) [#/Vol] 1.08 10*3/uL Normal 1.00-4.00 [facility] Comment on above: Order Comment: Speci men Type: BLOOD SPECIMENOrdering Facility: [facility] Address: [address] [place], [place] [address] Performed By: #### 5 7021-8 ####[facility] LABCLIA [id number] [address] STATES OF [facility] Lymphocytes/100 WBC (Bld) 24.8 % Normal [facility] Comment on above: Order Comment: Speci men Type: BLOOD SPECIMENOrdering Facility: [facility] Address: [address] [place], [place] [address] Performed By: #### 5 7021-8 ####[facility] LABIA [id number] [address] [place] MCH (RBC) [Entitic mass] 34.9 pg High 26.0-34.0 [facility] Comment on above: Order Comment: Speci men Type: BLOOD SPECIMENOrdering Facility: [facility] Address: [address] [place], [place] [address] Performed By: #### 5 7021-8 ####[facility] LABIA [id number] [address] [place] MCHC (RBC) [Mass/Vol] 34.4 g/dL Normal 30.5-36.0 [facility] Comment on above: Order Comment: Speci men Type: BLOOD SPECIMENOrdering Facility: [facility] Address: [address] [place] [address] Performed By: #### 5 7021-8 ####[facility] LABIA [id number] [id number] [address] [place] MCV (RBC) [Entitic vol] 101.5 fL High 80.0-100.0 [facility] Comment on above: Order Comment: Speci men Type: BLOOD SPECIMENOrdering Facility: [facility] Address: [address] [place], [place] [address] Performed By: #### 5 7021-8 ####[facility] LABCLIA [id number] [place] [address] [place] Monocytes (Bld) [#/Vol] 0.45 10*3/uL Normal <0.87 [facility] Comment on above: Order Comment: Speci men Type: BLOOD SPECIMENOrdering Facility: [facility] Address: [address] [place], [place] [address] Performed By: #### 5 7021-8 ####[facility] LABCLIA [id number] [address] [place] Monocytes/100 WBC (Bld) 10.3 % Normal [facility] Comment on above: Order Comment: Speci men Type: BLOOD SPECIMENOrdering Facility: [facility] Address: [address] [place], [place] [address] Performed By: #### 5 7021-8 ####[facility] LABCLIA [id number] [place] [address] [place] Neutrophils (Bld) [#/Vol] 2.61 10*3/uL Normal 1.45-7.50 [facility] Comment on above: Order Comment: Speci men Type: BLOOD SPECIMENOrdering Facility: [facility] Address: [address] [place], [place] [address] Performed By: #### 5 7021-8 ####[facility] LABCLIA [id number] [place] [address] [place] Neutrophils/100 WBC (Bld) 60.2 % Normal [facility] Comment on above: Order Comment: Speci men Type: BLOOD SPECIMENOrdering Facility: [facility] Address: [address] Performed By: #### 5 7021-8 ####[facility] LABIA [id number] [place] [address] [place] Nucleated RBC (Bld) [#/Vol] 10*3/uL Normal <0.01 [facility] Comment on above: Order Comment: Speci men Type: BLOOD SPECIMENOrdering Facility: [facility] Address: [address] [place], [place] [address] Performed By: #### 5 7021-8 ####[facility] LABIA [id number] [place] [address] [place] Nucleated RBC/100 WBC (Bld) [Ratio] 0.0 /100 WBC Normal [facility] Comment on above: Order Comment: Speci men Type: BLOOD SPECIMENOrdering Facility: [facility] Address: [address] [place], [place] [address] Performed By: #### 5 7021-8 ####[facility] [id number] [place] [address] [place] Platelet mean volume (Bld) [Entitic vol] 10.4 fL Normal 9.0-12.7 [facility] Comment on above: Order Comment: Speci men Type: BLOOD SPECIMENOrdering Facility: [facility] Address: [address] [place], [place] [address] Performed By: #### 5 7021-8 ####[facility] LABIA [id number] [place] [address] [place] Platelets (Bld) [#/Vol] 64 10*3/uL Low 150-400 [facility] Comment on above: Order Comment: Speci men Type: BLOOD SPECIMENOrdering Facility: [facility] Address: [address] [place], [place] [address] Result Comment: Resu lts checked and verified.No clot detected. Performed By: #### 5 7021-8 ####[facility] LABCLIA [id number] [place] [address] [place] RBC (Bld) [#/Vol] 2.72 10*6/uL Low 4.20-6.00 [facility] Comment on above: Order Comment: Speci men Type: BLOOD SPECIMENOrdering Facility: [facility] Address: [address] [place] [address] Performed By: #### 5 7021-8 ####[facility] LABIA [id number] [place] [address] [place] WBC (Bld) [#/Vol] 4.35 10*3/uL Normal 3.70-11.00 [facility] Comment on above: Order Comment: Speci men Type: BLOOD SPECIMENOrdering Facility: [facility] Address: [address] [place] [address] Performed By: #### 5 7021-8 ####[facility] LABIA [id number] [address] [place] CBC panel Auto (Bld)on 04-04 Erythrocyte distribution width (RBC) [Ratio] 14.6 % Normal 11.5-15.0 [facility] Comment on above: Order Comment: Speci men Type: BLOOD SPECIMENOrdering Facility: [facility] Address: [address] [place], [place] [address] Performed By: #### 5 8410-2 ####[facility] LABIA [id number] [address] [place] Hematocrit (Bld) [Volume fraction] 27.4 % Low 39.0-51.0 [facility] Comment on above: Order Comment: Speci men Type: BLOOD SPECIMENOrdering Facility: [facility] Address: [address] [place] [address] Performed By: #### 5 8410-2 ####[facility] LABCLIA [id number] [address] [place] Hemoglobin (Bld) [Mass/Vol] 9.7 g/dL Low 13.0-17.0 [facility] Comment on above: Order Comment: Speci men Type: BLOOD SPECIMENOrdering Facility: [facility] Address: [address] [place] [address] Performed By: #### 5 8410-2 ####[facility] LABIA [id number] [address] [place] MCH (RBC) [Entitic mass] 34.6 pg High 26.0-34.0 [facility] Comment on above: Order Comment: Speci men Type: BLOOD SPECIMENOrdering Facility: [facility] Address: [address] [place] [address] Performed By: #### 5 8410-2 ####[facility] LABIA [id number] [address] [place] [facility] MCHC (RBC) [Mass/Vol] 35.4 g/dL Normal 30.5-36.0 [facility] Comment on above: Order Comment: Speci men Type: BLOOD SPECIMENOrdering Facility: [facility] Address: [address] [place], [place] [address] Performed By: #### 5 8410-2 ####[facility] LABIA [id number] [address] [place] MCV (RBC) [Entitic vol] 97.9 fL Normal 80.0-100.0 [facility] Comment on above: Order Comment: Speci men Type: BLOOD SPECIMENOrdering Facility: [facility] Address: [address] [place], [place] [address] Performed By: #### 5 8410-2 ####[facility] LABIA [id number] [address] [place] Nucleated RBC (Bld) [#/Vol] 10*3/uL Normal <0.01 [facility] Comment on above: Order Comment: Speci men Type: BLOOD SPECIMENOrdering Facility: [facility] Address: [address] [place] [address] Performed By: #### 5 8410-2 ####[facility] LABCLIA [id number] [place] [address] [place] Platelet mean volume (Bld) [Entitic vol] 10.1 fL Normal 9.0-12.7 [facility] Comment on above: Order Comment: Speci men Type: BLOOD SPECIMENOrdering Facility: [facility] Address: [address] [place] [address] Performed By: #### 5 8410-2 ####[facility]IA [id number] [place] [address] [place] Platelets (Bld) [#/Vol] 104 10*3/uL Low 150-400 [facility] Comment on above: Order Comment: Speci men Type: BLOOD SPECIMENOrdering Facility: [facility] Address: [address] [place] [address] Result Comment: Resu lts checked and verified.No clot detected. Performed By: #### 5 8410-2 ####[facility]IA [id number] [place] [address] [place] RBC (Bld) [#/Vol] 2.80 10*6/uL Low 4.20-6.00 [facility] Comment on above: Order Comment: Speci men Type: BLOOD SPECIMENOrdering Facility: [facility] Address: [address] [place] [address] Performed By: #### 5 8410-2 ####[facility]IA [id number] [place] [address] [place] WBC (Bld) [#/Vol] 13.90 10*3/uL High 3.70-11.00 [facility] Comment on above: Order Comment: Speci men Type: BLOOD SPECIMENOrdering Facility: [facility] Address: [address] [place] [address] Performed By: #### 5 8410-2 ####[facility] LABCLIA [id number] [place] [address] [place] CMV IgG Qnon 04-04-2023 CMV IGG QUAL Positive Abnormal Negative [facility] Comment on above: Order Comment: Speci men Type: BLOOD SPECIMENOrdering Facility: [facility] Address: [address] [place] [address] Result Comment: The result suggests recent or past infection with Cytomegalovirus (CMV). Positive result may also be seen due to presence of passively-transferred antibodies. Please correlate with patient's history. Performed By: #### 7 852-7 ####[facility] LABCLIA [id number] [place] [address] [place] CMV IgG SerPl-aCncon 023 CMV IgG Qn 2.70 U/mL Normal [facility] Comment on above: Order Comment: Speci [facility] Type: BLOOD SPECIMENOrdering Facility: [facility] Address: [address] [place] [address] Result Comment: The magnitude of the measured result is not indicative of the amount of antibody present.U/mL values are interpreted as follows:Negative <0.6Equivocal 0.6 to <0.70Positive >=0.70 Performed By: #### 7 852-7 ####[facility] LABCLIA [id number] [place] [address] [place] CNPNon 04-04-2023 CNPN Normal [facility] Comprehensive metabolic 2000 panelon 04-04-2023 Albumin [Mass/Vol] 3.7 g/dL Low 3.9-4.9 [facility] Comment on above: Order Comment: Speci men Type: BLOOD SPECIMENOrdering Facility: [facility] Address: [address] [place] [address] Performed By: #### 2 4323-8, 96587-2 ####[facility] LABCLIA [id number] [place] [address] [place] ALP [Catalytic activity/Vol] 56 U/L Normal 38-113 [facility] Comment on above: Order Comment: Speci men Type: BLOOD SPECIMENOrdering Facility: [facility] Address: [address] [place] [address] Performed By: #### 2 4323-8, 13747-1 ####[facility] LABCLIA [id number] [place] [address] [place] ALT [Catalytic activity/Vol] 110 U/L High 10-54 [facility] Comment on above: Order Comment: Speci men Type: BLOOD SPECIMENOrdering Facility: [facility] Address: [address] [place] [address] Performed By: #### 2 4323-8, 91664-6 ####[facility] LABCLIA [id number] [place] [address] [place] Anion gap [Moles/Vol] 13 mmol/L Normal 9-18 [facility] Comment on above: Order Comment: Speci men Type: BLOOD SPECIMENOrdering Facility: [facility] Address: [address] [place] [address] Performed By: #### 2 4323-8, 46583-2 ####[facility] LABCLIA [id number] [place] [address] [place] AST [Catalytic activity/Vol] 308 U/L High 14-40 [facility] Comment on above: Order Comment: Speci men Type: BLOOD SPECIMENOrdering Facility: [facility] Address: [address] [place] [address] Performed By: #### 2 4323-8, 21539-9 ####[facility] LABCLIA [id number] [place] [address] [place] Bilirubin [Mass/Vol] 4.3 mg/dL High 0.2-1.3 [facility] Comment on above: Order Comment: Speci men Type: BLOOD SPECIMENOrdering Facility: [facility] Address: [address] [place] [address] Performed By: #### 2 4323-8, 72359-2 ####[facility] LABCLIA [id number] [place] [address] [place] Calcium [Mass/Vol] 9.0 mg/dL Normal 8.5-10.2 [facility] Comment on above: Order Comment: Speci men Type: BLOOD SPECIMENOrdering Facility: [facility] Address: [address] [place] [address] Performed By: #### 2 4323-8, 39449-3 ####[facility] LABCLIA [id number] [place] [address] [place] Chloride [Moles/Vol] 102 mmol/L Normal 97-105 [facility] Comment on above: Order Comment: Speci men Type: BLOOD SPECIMENOrdering Facility: [facility] Address: [address] [place], [place] [address] Performed By: #### 2 4323-8, 51779-8 ####[facility] LABCLIA [id number] [place] [address] [place] CO2 [Moles/Vol] 20 mmol/L Low 22-30 [facility] Comment on above: Order Comment: Speci men Type: BLOOD SPECIMENOrdering Facility: [facility] Address: [address] [place] [id number] Performed By: #### 2 4323-8, 23295-1 ####[facility] LABCLIA [id number] [place] [address] [place] Creatinine [Mass/Vol] 0.98 mg/dL Normal 0.73-1.22 [facility] Comment on above: Order Comment: Speci men Type: BLOOD SPECIMENOrdering Facility: [facility] Address: [address] [address] Performed By: #### 2 4323-8, 30766-9 ####[facility] LABCLIA [id number] [place] [address] [place] ESTIMATED GLOMERULAR FILTRATION RATE 99 mL/min/1.73m??? Normal >=60 [facility] Comment on above: Order Comment: Rasta kennedy Type: BLOOD SPECIMENOrdering Facility: [facility] Address: [address] [address] Result Comment: Karma mated Glomerular Filtration Rate (eGFR) is calculated using the 2020 CKD-EPI creatinine equation. This equation utilizes serum creatinine, sex, and age as parameters. The creatinine assay has traceable calibration to isotope dilution-mass spectrometry. Refer to KDIGO guidelines for clinical interpretation. In patients with unstable renal function, e.g. those with acute kidney injury, the eGFR may not accurately reflect actual GFR. Performed By: #### 2 4323-8, 82171-6 ####[facility] LABCLIA [id number] [place] [address] [place] Glucose [Mass/Vol] 166 mg/dL High 74-99 [facility] Comment on above: Order Comment: Rasta kennedy Type: BLOOD SPECIMENOrdering Facility: [facility] Address: [address] [place] [address] Result Comment: The [place] Diabetes [employer] (ADA) provides guidance for cutoff values for fasting glucose and random glucose. The ADA defines fasting as no caloric intake for at least 8 hours. Fasting plasma glucose results between 100 to 125 mg/dL indicate increased risk for diabetes (prediabetes).Fasting plasma glucose results greater than or equal to 126 mg/dL meet the criteria for diagnosis of diabetes. In the absence of unequivocal hyperglycemia, results should be confirmed by repeat testing. In a patient with classic symptoms of hyperglycemia or hyperglycemic crisis, random plasma glucose results greater than or equal to 200 mg/dL meet the criteria for diagnosis of diabetes.Reference: Standards of Medical Care in Diabetes 2016, [place] [employer]. Diabetes Care. 2016.39(Suppl 1). Performed By: #### 2 4323-8, 58139-9 ####[facility] LABCLIA [id number] [place] [address] [place] Potassium [Moles/Vol] 4.9 mmol/L Normal 3.7-5.1 [facility] Comment on above: Order Comment: Speci men Type: BLOOD SPECIMENOrdering Facility: [facility] Address: [address] [place] [address] Performed By: #### 2 4323-8, 73453-2 ####[facility] LABCLIA [id number] [place] [address] [place] Protein [Mass/Vol] 5.5 g/dL Low 6.3-8.0 [facility] Comment on above: Order Comment: Speci men Type: BLOOD SPECIMENOrdering Facility: [facility] Address: [address] [place] [address] Performed By: #### 2 4323-8, 94539-0 ####[facility] LABIA [id number] [place] [address] [place] Sodium [Moles/Vol] 135 mmol/L Low 136-144 [facility] Comment on above: Order Comment: Speci men Type: BLOOD SPECIMENOrdering Facility: [facility] Address: [address] [place], [place] [address] Performed By: #### 2 4323-8, 90928-4 ####[facility] LABCLIA [id number] [place] [address] [place] Urea nitrogen [Mass/Vol] 16 mg/dL Normal 9-24 [facility] Comment on above: Order Comment: Speci men Type: BLOOD SPECIMENOrdering Facility: [facility] Address: [address] Performed By: #### 2 4323-8, 43629-5 ####[facility] LABCLIA [id number] [place] [address] [place] Albumin [Mass/Vol] 4.2 g/dL Normal 3.9-4.9 [facility] Comment on above: Order Comment: Speci men Type: BLOOD SPECIMENOrdering Facility: [facility] Address: [address] [place] [address] Performed By: #### 2 4323-8 ####[facility] LABCLIA [id number] [place] [address] [place] ALP [Catalytic activity/Vol] 98 U/L Normal 38-113 [facility] Comment on above: Order Comment: Speci men Type: BLOOD SPECIMENOrdering Facility: [facility] Address: [address] [place] [address] Performed By: #### 2 4323-8 ####[facility] LABCLIA [id number] [address] [place] ALT [Catalytic activity/Vol] 17 U/L Normal 10-54 [facility] Comment on above: Order Comment: Speci men Type: BLOOD SPECIMENOrdering Facility: [facility] Address: [address] [place], [place] [address] Performed By: #### 2 4323-8 ####[facility] LABCLIA [id number] [place] [address] [place] Anion gap [Moles/Vol] 10 mmol/L Normal 9-18 [facility] Comment on above: Order Comment: Speci men Type: BLOOD SPECIMENOrdering Facility: [facility] Address: [address] [place], [place] [address] Performed By: #### 2 4323-8 ####[facility] LABCLIA [id number] [place] [address] [place] AST [Catalytic activity/Vol] 42 U/L High 14-40 [facility] Comment on above: Order Comment: Speci men Type: BLOOD SPECIMENOrdering Facility: [facility] Address: [address] [place] [address], [place] Performed By: #### 2 4323-8 ####[facility] LABCLIA [id number] [place] [address] [place] Bilirubin [Mass/Vol] 3.2 mg/dL High 0.2-1.3 [facility] Comment on above: Order Comment: Speci men Type: BLOOD SPECIMENOrdering Facility: [facility] Address: [address] [place] [address] Performed By: #### 2 4323-8 ####[facility] LABCLIA [id number] [place] [address] [place] Calcium [Mass/Vol] 10.2 mg/dL Normal 8.5-10.2 [facility] Comment on above: Order Comment: Speci men Type: BLOOD SPECIMENOrdering Facility: [facility] Address: [address] Performed By: #### 2 4323-8 ####[facility] LABCLIA [id number] [place] [address] [place] Chloride [Moles/Vol] 99 mmol/L Normal 97-105 [facility] Comment on above: Order Comment: Speci men Type: BLOOD SPECIMENOrdering Facility: [facility] Address: [address] [place] [address] Performed By: #### 2 4323-8 ####[facility] LABCLIA [id number] [place] [address] [place] CO2 [Moles/Vol] 23 mmol/L Normal 22-30 [facility] Comment on above: Order Comment: Speci men Type: BLOOD SPECIMENOrdering Facility: [facility] Address: [address] [place] [address] Performed By: #### 2 4323-8 ####[facility] LABCLIA [id number] [address] OF [facility] Creatinine [Mass/Vol] 0.98 mg/dL Normal 0.73-1.22 [facility] Comment on above: Order Comment: Rasta kennedy Type: BLOOD SPECIMENOrdering Facility: [facility] Address: [address] [address] Performed By: #### 2 4323-8 ####[facility] LABCLIA [id number] [address] OF [facility] ESTIMATED GLOMERULAR FILTRATION RATE 99 mL/min/1.73m??? Normal >=60 [facility] Comment on above: Order Comment: Rasta kennedy Type: BLOOD SPECIMENOrdering Facility: [facility] Address: [address] [address] Result Comment: Karma mated Glomerular Filtration Rate (eGFR) is calculated using the 2020 CKD-EPI creatinine equation. This equation utilizes serum creatinine, sex, and age as parameters. The creatinine assay has traceable calibration to isotope dilution-mass spectrometry. Refer to KDIGO guidelines for clinical interpretation. In patients with unstable renal function, e.g. those with acute kidney injury, the eGFR may not accurately reflect actual GFR. Performed By: #### 2 4323-8 ####[facility] LABCLIA [id number] [address] [place] Glucose [Mass/Vol] 111 mg/dL High 74-99 [facility] Comment on above: Order Comment: Rasta kenendy Type: BLOOD SPECIMENOrdering Facility: [facility] Address: [address] [place] [address] Result Comment: The [place] Diabetes [employer] (ADA) provides guidance for cutoff values for fasting glucose and random glucose. The ADA defines fasting as no caloric intake for at least 8 hours. Fasting plasma glucose results between 100 to 125 mg/dL indicate increased risk for diabetes (prediabetes).Fasting plasma glucose results greater than or equal to 126 mg/dL meet the criteria for diagnosis of diabetes. In the absence of unequivocal hyperglycemia, results should be confirmed by repeat testing. In a patient with classic symptoms of hyperglycemia or hyperglycemic crisis, random plasma glucose results greater than or equal to 200 mg/dL meet the criteria for diagnosis of diabetes.Reference: Standards of Medical Care in Diabetes 2016, [place] [employer]. Diabetes Care. 2016.39(Suppl 1). Performed By: #### 2 4323-8 ####[facility] LABCLIA [id number] [place] [address] [place] Potassium [Moles/Vol] 4.5 mmol/L Normal 3.7-5.1 [facility] Comment on above: Order Comment: Speci men Type: BLOOD SPECIMENOrdering Facility: [facility] Address: [address] [address] Performed By: #### 2 4323-8 ####[facility] LABCLIA [id number] [place] [address] [place] Protein [Mass/Vol] 7.1 g/dL Normal 6.3-8.0 [facility] Comment on above: Order Comment: Speci men Type: BLOOD SPECIMENOrdering Facility: [facility] Address: [address] Performed By: #### 2 4323-8 ####[facility] LABCLIA [id number] [place] [address] [place] Sodium [Moles/Vol] 132 mmol/L Low 136-144 [facility] Comment on above: Order Comment: Speci men Type: BLOOD SPECIMENOrdering Facility: [facility] Address: [address] Performed By: #### 2 4323-8 ####[facility] LABCLIA [id number] [place] [address] [place] Urea nitrogen [Mass/Vol] 14 mg/dL Normal 9-24 [facility] Comment on above: Order Comment: Speci men Type: BLOOD SPECIMENOrdering Facility: [facility] Address: [address] Performed By: #### 2 4323-8 ####[facility] LABCLIA [id number] [place] [address] [place] ECG COMPLETEon 04-04-2023 ECG COMPLETE Normal [facility] Fibrinogen PPP-mCncon 2022 Fibrinogen Coag (PPP) [Mass/Vol] 154 mg/dL Low 200-400 [facility] Comment on above: Order Comment: Speci men Type: BLOOD SPECIMENOrdering Facility: [facility] Address: [address] [place] [address] Performed By: #### 3 255-7, 61745-4 ####[facility] [id number] [place] [address] [place] Fibrinogen Coag (PPP) [Mass/Vol] 131 mg/dL Low 200-400 [facility] Comment on above: Order Comment: Speci men Type: BLOOD SPECIMENOrdering Facility: [facility] Address: [address] [place] [address] Performed By: #### 3 255-7 ####[facility] [id number] [place] [address] [place] GLOBAL HEMOSTASISon 04-04-20 23 CITRATED FUNCTIONAL FIBRINOGEN LEVEL 228.1 mg/dL Low 278.0-581.0 [facility] Comment on above: Order Comment: Speci men Type: BLOOD SPECIMENOrdering Facility: [facility] Address: [address] [place] [address] Performed By: #### T EGGLBL ####[facility] LABIA [id number] [place] [address] [place] Clot angle TEG (Bld) [Angle] 59.6 degrees Low 63.0-78.0 [facility] Comment on above: Order Comment: Speci men Type: BLOOD SPECIMENOrdering Facility: [facility] Address: [address] [place] [address] Performed By: #### T EGGLBL ####[facility] LABIA [id number] [address] Clot formation TEG (Bld) [Time] 3.3 minutes High 0.8-2.1 [facility] Comment on above: Order Comment: Speci men Type: BLOOD SPECIMENOrdering Facility: [facility] Address: [address] [place] [address] Performed By: #### T EGGLBL ####[facility] LABCLIA [id number] [address] Clotting time after addition of heparinase TEG (Bld) 6.2 minutes Normal 4.3-8.3 [facility] Comment on above: Order Comment: Speci men Type: BLOOD SPECIMENOrdering Facility: [facility] Address: [address] [place] [address] Performed By: #### T EGGLBL ####[facility] LABCLIA [id number] [address] Clotting time.extrinsic coagulation system activated Rotational TEG (Bld) 8.7 minutes Normal 4.6-9.1 [facility] Comment on above: Order Comment: Speci men Type: BLOOD SPECIMENOrdering Facility: [facility] Address: [address] [place] [address] Performed By: #### T EGGLBL ####[facility] LABCLIA [id number] [address] Maximum clot firmness TEG (Bld) [Length] <40.0 Low 52.0-69.0 [facility] Comment on above: Order Comment: Speci men Type: BLOOD SPECIMENOrdering Facility: [facility] Address: [address] [place], [place] [address] Performed By: #### T EGGLBL ####[facility] LABCLIA [id number] [address] Maximum clot firmness.extrinsic coagulation system activated.platelets inhibited Rotational TEG (Bld) [Length] <40.0 Low 52.0-70.0 [facility] Comment on above: Order Comment: Speci men Type: BLOOD SPECIMENOrdering Facility: [facility] Address: [address] [place] [address] Result Comment: 12.5 Performed By: #### T EGGLBL ####[facility] LABCLIA [id number] [place] [address] [place] [facility]ROMBOGRAPH INTERP [facility] Comment on above: Order Comment: Speci men Type: BLOOD SPECIMENOrdering Facility: [facility] Address: [address] Result Comment: A th romboelastograph (TEG) study was performed using citrate-anticoagulated whole blood treated with and without heparinase to neutralize a heparin effect. The R value, a measure of coagulation function, is within the normal range. This indicates normal coagulation function. The K time (K), a measure of time to clot formation is prolonged. This is indicative of decreased fibrinogen and platelet function, and anticoagulants. The angle, a measure of fibrinogen function, is decreased. This is indicative of decreased fibrinogen concentration or function. The Maximal Amplitude (MA), a measure of platelet function, is decreased. A decreased MA can be seen with increased anti-platelet drug effect, thrombocytopenia, or platelet dysfunction. The fibrinogen contribution clot formation is decreased due to decreased fibrinogen concentration or dysfunction. Performed By: #### T EGGLBL ####[facility] LABCLIA [id number] [place] [address] [place] CITRATED FUNCTIONAL FIBRINOGEN LEVEL 242.7 mg/dL Low 278.0-581.0 [facility] Comment on above: Order Comment: Speci men Type: BLOOD SPECIMENOrdering Facility: [facility] Address: [address] [place] [address] Performed By: #### T EGGLBL ####[facility] LABCLIA [id number] [place] [address] [place] Clot angle TEG (Bld) [Angle] 68.7 degrees Normal 63.0-78.0 [facility] Comment on above: Order Comment: Speci men Type: BLOOD SPECIMENOrdering Facility: [facility] Address: [address] Performed By: #### T EGGLBL ####[facility] LABIA [id number] [address] [place] Clot formation TEG (Bld) [Time] 2.2 minutes High 0.8-2.1 [facility] Comment on above: Order Comment: Speci men Type: BLOOD SPECIMENOrdering Facility: [facility] Address: [address] Performed By: #### T EGGLBL ####[facility] LABIA [id number] [address] [place] Clotting time after addition of heparinase TEG (Bld) 5.5 minutes Normal 4.3-8.3 [facility] Comment on above: Order Comment: Speci men Type: BLOOD SPECIMENOrdering Facility: [facility] Address: [address] [place], [place] [address] Performed By: #### T EGGLBL ####[facility] [id number] [address] [place] Clotting time.extrinsic coagulation system activated Rotational TEG (Bld) 4.4 minutes Low 4.6-9.1 [facility] Comment on above: Order Comment: Speci men Type: BLOOD SPECIMENOrdering Facility: [facility] Address: [address] Performed By: #### T EGGLBL ####[facility] LABIA [id number] [address] [place] Maximum clot firmness TEG (Bld) [Length] <40.0 Low 52.0-69.0 [facility] Comment on above: Order Comment: Speci men Type: BLOOD SPECIMENOrdering Facility: [facility] Address: [address] [address] Performed By: #### T EGGLBL ####[facility] [id number] [address] Maximum clot firmness.extrinsic coagulation system activated.platelets inhibited Rotational TEG (Bld) [Length] <40.0 Low 52.0-70.0 [facility] Comment on above: Order Comment: Speci men Type: BLOOD SPECIMENOrdering Facility: [facility] Address: [address] [address] Result Comment: 13.3 Performed By: #### T EGGLBL ####[facility] [id number] [address] THROMBOGRAPH INTERP Normal [facility] Comment on above: Order Comment: Speci men Type: BLOOD SPECIMENOrdering Facility: [facility] Address: [address] [place] [address] Result Comment: A th romboelastograph (TEG) study was performed using citrate-anticoagulated whole blood treated with and without heparinase to neutralize a heparin effect. The R value, a measure of coagulation function, is within the normal range. This indicates normal coagulation function. The K time (K), a measure of time to clot formation is prolonged. This is indicative of decreased fibrinogen and platelet function, and anticoagulants. The angle, a measure of fibrinogen function, is within normal range. This is indicative of normal fibrinogen concentration or function. The Maximal Amplitude (MA), a measure of platelet function, is decreased. A decreased MA can be seen with increased anti-platelet drug effect, thrombocytopenia, or platelet dysfunction. The fibrinogen contribution clot formation is decreased due to decreased fibrinogen concentration or dysfunction. Performed By: #### T EGGLBL ####[facility] [id number] [address] OF [facility] HBV DNA Qn (S)on 04-04-2023 HBV DNA DEVYN+probe Qn Not detected Normal HBV DNA not detected by PCR [facility] Comment on above: Order Comment: Speci men Type: BLOOD SPECIMENOrdering Facility: [facility] Address: [address] [place] [address] Performed By: #### 1 1258-1 ####[facility] LABCLIA [id number] [address] OF [facility] HBV core Ab Ser Qlon 023 HBV core Ab Ql (S) Negative Normal Negative [facility] Comment on above: Order Comment: Speci men Type: BLOOD SPECIMENOrdering Facility: [facility] Address: [address] [place] [address] Result Comment: No e vidence of current or past infection with Hepatitis B virus. Should recent infection be suspected, repeat testing may be considered 3-4 weeks after this draw. Performed By: #### 5 195-3, 38906-1, 68849-6, 96134-1 ####[facility] LABCLIA [id number] [address] HBV surface Ab Ql (S)on 03-24 HBV surface Ab Qn (S) <8.00 Normal [facility] Comment on above: Order Comment: Speci men Type: BLOOD SPECIMENOrdering Facility: [facility] Address: [address] [place] [address] Result Comment: <8 m IU/mL: No serological evidence of immunity to Hepatitis B Virus.>/= 8 to <12 mIU/mL: No serological evidence of immunity to Hepatitis B Virus.>/= 12 mIU/mL: Consistent with serological evidence of immunity to Hepatitis B Virus. Performed By: #### 5 195-3, 55642-3, 70976-8, 78684-5 ####[facility] LABIA [id number] [address] OF [facility] HBV surface Ab Ser Qlon 03-24 HBV surface Ab Ql (S) Negative Normal [facility] Comment on above: Order Comment: Speci men Type: BLOOD SPECIMENOrdering Facility: [facility] Address: [address] [place] [address] Result Comment: No s erological evidence of immunity to Hepatitis B Virus. Performed By: #### 5 195-3, 60787-0, 44325-1, 44110-9 ####[facility] LABCLIA [id number] [address] [place] HBV surface Ag Ser Qlon 03-24 HBV surface Ag Ql (S) Negative Normal Negative [facility] Comment on above: Order Comment: Speci men Type: BLOOD SPECIMENOrdering Facility: [facility] Address: [address] [place] [address] Performed By: #### 5 195-3, 84111-1, 53984-5, 33823-9 ####[facility] LABIA [id number] [address] HCV Ab Ser Qlon 04-04-2023 HCV Ab Ql (S) Negative Normal Negative [facility] Comment on above: Order Comment: Speci [facility] Type: BLOOD SPECIMENOrdering Facility: [facility] Address: [address] [place] [address] Result Comment: The result suggests no evidence of active infection with Hepatitis C virus. Should recent infection be suspected, repeat testing may be considered 4-6 weeks after this draw. Performed By: #### 1 6128-1 ####[facility] LABIA [id number] [place] HCV RNA SerPl DEVYN+probe-aCnc on 04-04-2023 HCV RNA DEVYN+probe Qn Not detected Normal HCV RNA not detected by PCR. [facility] Comment on above: Order Comment: Speci [facility] Type: BLOOD SPECIMENOrdering Facility: [facility] Address: [address] [place] [address] Performed By: #### 1 1011-4 ####[facility] LABCLIA [id number] [address] [place] HIGH SENSITIVITY TROPONIN To n 04-04-2023 HIGH SENSITIVITY AZRA 31 ng/L High <12 [facility] Comment on above: Order Comment: Speci men Type: BLOOD SPECIMENOrdering Facility: [facility] Address: [address] [place] [address] Result Comment: When assessing risk for acute coronary syndromes: In patients undergoing blood draw greater than or equal to 2 hours from symptom onset, with history of very low to moderate risk and non-ischemic ECG, an initial hs-Troponin T less than 12 ng/L AND a 1 hour delta hs-Troponin T less than 3 ng/L should be considered very low risk for 30 day MACE. Performed By: #### H STNT, 07698-9, 08498-0, 2777-1, 1798-8 ####[facility] LABCLIA [id number] [place] [address] [place] HISTORY PHYSICALon 3 HISTORY PHYSICAL Normal [facility] HISTORY PHYSICAL Normal [facility] HIV 1+2 Ab IA Qlon 3 HIV 1 and 2 Ab IA.rapid Nom Normal [facility] Comment on above: Order Comment: Speci men Type: BLOOD SPECIMENOrdering Facility: [facility] Address: [address] [place], [place] [address] Result Comment: Test not indicated. Performed By: #### 5 195-3, 06193-3, 30665-0, 15504-5 ####[facility] LABCLIA [id number] [place] [address] [place] HIV 1+2 Ab+HIV1 p24 Ag IA Ql Non-Reactive Normal Nonreactive [facility] Comment on above: Order Comment: Speci men Type: BLOOD SPECIMENOrdering Facility: [facility] Address: [address] [place] [address] [place] [id number] Performed By: #### 5 195-3, 19160-1, 02809-3, 94143-9 ####[facility] LABCLIA [id number] [place] [address] [place] HIVINT Normal [facility] Comment on above: Order Comment: Speci men Type: BLOOD SPECIMENOrdering Facility: [facility] Address: [address] [place] [address] Result Comment: No e vidence of HIV-1 or HIV-2 infection. Should recent infection be suspected, repeat testing may be considered 2-3 weeks after this draw.[place] Rev. Code 3701.243(E): This information has been disclosed to you from confidential records protected from disclosure by state law. ???You shall make no further disclosure of this information without the specific, written, and informed release of the individual to whom it pertains or as otherwise permitted by state law. A general authorization for the release of medical or other information is not sufficient for the purpose of the release of HIV test results or diagnoses. Performed By: #### 5 195-3, 22935-7, 90909-4, 63271-1 ####[facility] LABCLIA [id number] [place] [address] [place] LIVER REC INIT W/Uon 023 ALLOGEN RESULTS TO FOLLOW See Allogen report to follow Normal [facility] Comment on above: Order Comment: Speci men Type: BLOOD SPECIMENOrdering Facility: [facility] Address: [address] [place] [address] Performed By: #### L RIPW ####[facility]IESCLIA [id number] [place] [address] [place] Magnesium [facility] 04-04 Magnesium [Mass/Vol] 2.3 mg/dL Normal 1.7-2.3 [facility] Comment on above: Order Comment: Speci men Type: BLOOD SPECIMENOrdering Facility: [facility] Address: [address] [place] [address] Performed By: #### H STNT, 78237-8, 57123-1, 2777-1, 1798-8 ####[facility] LABCLIA [id number] [place] [address] [place] NT-proBNP SerPl-ncon 04-04 Natriuretic peptide.B prohormone N-Terminal [Mass/Vol] 1309 pg/mL High <125 [facility] Comment on above: Order Comment: Speci men Type: BLOOD SPECIMENOrdering Facility: [facility] Address: [address] [place] [address] Performed By: #### H STNT, 87771-1, 27956-6, 2777-1, 1798-8 ####[facility] LABCLIA [id number] [address] [place] OPERATIVE NOon 04-04-2023 OPERATIVE NO Normal [facility] PT panel Coag (PPP)on 2022 INR Coag (PPP) [Relative time] 1.5 {INR} High 0.9-1.3 [facility] Comment on above: Order Comment: Speci men Type: BLOOD SPECIMENOrdering Facility: [facility] Address: [address] [place] [address] Result Comment: Binta min K Antagonist (VKA) Therapeutic Range: INR 2 to 3 (Target INR of 2.5)Note: For patients treated with VKA drugs, such as warfarin, the [place] [employer] 2012 Guideline recommends a therapeutic INR range of 2 to 3 (target INR of 2.5). This recommendation includes high-risk patients with antiphospholipid syndrome with previous arterial or venous thromboembolism, current-generation mechanical or bioprosthetic aortic heart valve replacement.Note: Patients with mechanical aortic valve replacement and additional risk factors for thromboembolic events (atrial fibrillation, previous thromboembolism, LV dysfunction, hypercoagulable conditions) or an older generation mechanical AVR (i.e., ball in-Cage) or any mechanical MVR should have a INR therapeutic range of 2.5 to 3.5 (target INR of 3).Robyn GH, et al. Chest 2012, 141:7S-47SNishimura RA, et al. [facility] 2017, 70: 252-289 Performed By: #### 3 255-7, 14908-0 ####[facility] LABCLIA [id number] [id number] [address] [place] PT Coag (PPP) [Time] 15.5 s High 9.7-13.0 [facility] Comment on above: Order Comment: Speci men Type: BLOOD SPECIMENOrdering Facility: [facility] Address: [place] [address] Performed By: #### 3 255-7, 53845-9 ####[facility] LABIA [id number] [address] [place] INR Coag (PPP) [Relative time] 1.7 {INR} High 0.9-1.3 [facility] Comment on above: Order Comment: Speci men Type: BLOOD SPECIMENOrdering Facility: [facility] Address: [address] [place] [address] Result Comment: Binta min K Antagonist (VKA) Therapeutic Range: INR 2 to 3 (Target INR of 2.5)Note: For patients treated with VKA drugs, such as warfarin, the [place] [employer] 2012 Guideline recommends a therapeutic INR range of 2 to 3 (target INR of 2.5). This recommendation includes high-risk patients with antiphospholipid syndrome with previous arterial or venous thromboembolism, current-generation mechanical or bioprosthetic aortic heart valve replacement.Note: Patients with mechanical aortic valve replacement and additional risk factors for thromboembolic events (atrial fibrillation, previous thromboembolism, LV dysfunction, hypercoagulable conditions) or an older generation mechanical AVR (i.e., ball in-Cage) or any mechanical MVR should have a INR therapeutic range of 2.5 to 3.5 (target INR of 3).Robyn GH, et al. Chest 2012, 141:7S-47SNishimyumiko RA, et al. [facility] 2017, 70: 252-289 Performed By: #### 3 4528-0 ####[facility] LABIA [id number] [address] [place] PT Coag (PPP) [Time] 16.9 s High 9.7-13.0 [facility] Comment on above: Order Comment: Speci men Type: BLOOD SPECIMENOrdering Facility: [facility] Address: [address] [place] [address] Performed By: #### 3 4528-0 ####[facility] LABIA [id number] [place] [address] [place] INR Coag (PPP) [Relative time] 1.4 {INR} High 0.9-1.3 [facility] Comment on above: Order Comment: Specсергей kennedy Type: BLOOD SPECIMENOrdering Facility: [facility] Address: [address] [place] [address] Result Comment: Binta min K Antagonist (VKA) Therapeutic Range: INR 2 to 3 (Target INR of 2.5)Note: For patients treated with VKA drugs, such as warfarin, the [place] [employer] 2012 Guideline recommends a therapeutic INR range of 2 to 3 (target INR of 2.5). This recommendation includes high-risk patients with antiphospholipid syndrome with previous arterial or venous thromboembolism, current-generation mechanical or bioprosthetic aortic heart valve replacement.Note: Patients with mechanical aortic valve replacement and additional risk factors for thromboembolic events (atrial fibrillation, previous thromboembolism, LV dysfunction, hypercoagulable conditions) or an older generation mechanical AVR (i.e., ball in-Cage) or any mechanical MVR should have a INR therapeutic range of 2.5 to 3.5 (target INR of 3).Robyn ALFORD, et al. Chest 2012, 141:7S-47SSindhu RA, et al. [facility] 2017, 70: 252-289 Performed By: #### 3 4528-0, 12727-9 ####[facility] LABIA [id number] [place] [address] [place] PT Coag (PPP) [Time] 14.1 s High 9.7-13.0 [facility] Comment on above: Order Comment: Rasta kennedy Type: BLOOD SPECIMENOrdering Facility: [facility] Address: [place] [address] Performed By: #### 3 4528-0, 13511-9 ####[facility] LABIA [id number] [address] [place] Phosphate SerPl-mCncon 04-04 Phosphate [Mass/Vol] 3.1 mg/dL Normal 2.7-4.8 [facility] Comment on above: Order Comment: Speci men Type: BLOOD SPECIMENOrdering Facility: [facility] Address: [address] [place] [address] Performed By: #### H STNT, 64431-2, 23394-3, 2777-1, 1798-8 ####[facility] LABCLIA [id number] [place] [address] [place] Platelets Auto (Bld) [#/Vol] on 04-04-2023 Platelets (Bld) [#/Vol] 88 10*3/uL Low 150-400 [facility] Comment on above: Order Comment: Speci men Type: BLOOD SPECIMENOrdering Facility: [facility] Address: [address] [place] [address] Result Comment: Resu lts checked and verified.No clot detected. Performed By: #### 7 77-3 ####[facility] LABIA [id number] [address] STATES [facility] Procalcitonin SerPl-mCncon 0 04-04-2023 Procalcitonin [Mass/Vol] 6.58 ng/mL High <0.09 [facility] Comment on above: Order Comment: Speci men Type: BLOOD SPECIMENOrdering Facility: [facility] Address: [address] [place] [address] Result Comment: For a guided interpretation of test results, please visit the Change in Procalcitonin Calculator, [email or web address]. Performed By: #### 2 4323-8, 61665-0 ####[facility] LABCLIA [id number] [address] [place] SARS-CoV-2 RNA Resp Ql DEVYN+p robeon 04-04-2023 SARS-CoV-2 (COVID-19) RNA DEVYN+probe Ql (Resp) COVID 19 RESULT: Not detected The method used is RT-PCR or an equivalent NAAT method. Reference Range(the expected result in uninfected individuals): Not detected Normal [facility] Comment on above: Performed By: #### 9 4500-6 ####[facility] LABCLIA [id number] [address] STAPH AUREUS PCRon 3 S. aureus and MRSA panel DEVYN+probe (Nose) Normal Negative [facility] Comment on above: Order Comment: Speci men Type: SWAB OF INTERNAL NOSEOrdering Facility: [facility] Address: [address] [place] [address] Result Comment: Nega tive for Staphylococcus aureus by PCR.Negative for MRSA by PCR Performed By: #### S APCR ####[facility] LABCLIA [id number] [address] OF [facility] SURGICAL PATHOLOGYon 023 CASE REPORT Normal [facility] Comment on above: Order Comment: Speci men Type: TISSUE SPECIMENOrdering Facility: [facility] Address: [address] [place] [address] Result Comment: Surg ical Pathology Report Case: [id number] Provider: Selma Gomez MD Collected: 04/04/2023 12:59 PMOrdering Location: Admitting Received: 04/06/2023 08:50 AMPathologist: Kenny Donovan MD, PhDSpecimens: A) - LIVER RESECTION, [place] Liver B) - GALLBLADDER, Donor gallbladder C) - LIVER BIOPSY, Donor liver biopsy Performed By: #### S ####[facility] LABCLIA [id number] [address] OF [facility] CLINICAL HISTORY Normal [facility] Comment on above: Order Comment: Speci men Type: TISSUE SPECIMENOrdering Facility: [facility] Address: [address] [place] [address] Result Comment: Pre- op diagnosis:Alcoholic cirrhosis of liver (HCC) [K70.30] Performed By: #### S ####[facility] LABCLIA [id number] [address] DIAGNOSIS COMMENT Normal [facility] Comment on above: Order Comment: Speci men Type: TISSUE SPECIMENOrdering Facility: [facility] Address: [address] [place] [address] Result Comment: Comm ent A: The hepatic parenchyma demonstrates established cirrhosis. The portal tracts and fibrous septa contain tjpj-ci-jalqwwhv lymphocyte-predominant inflammatory infiltrate and minimal interface activity. Foci of bile ductular reaction are present, but the [place] bile ducts are intact. There is no significant steatosis, hepatocyte ballooning, Porsha-Denk bodies, or inflammation. Occasional canalicular cholestasis is noted. PAS-D stain does not reveal diagnostic intracytoplasmic inclusions. Prussian blue stain highlights iron deposition (3+ out of 4+) predominantly within hepatocytes. Overall, given the clinical history of long-term ethanol use, the histologic changes may represent cirrhosis due to burnt-out steatotic liver disease.Comment C: A verma finding in the current wedge biopsy is the presence of confluent hepatocyte necrosis involving approximately 10% of the parenchyma, together with occasional centrilobular hepatocyte loss and acidophil bodies. The lobules demonstrate minimal (<5 %) macrovesicular steatosis but no hepatocyte ballooning, Porsha Denk bodies or inflammation. The portal areas contain intact [place] bile ducts and vasculature, and sudfkz-lq-opahcyu lymphocytic inflammation. Neutrophilic inflammation in the portal areas is likely procedural (i.e.surgical hepatitis). Trichrome stain highlights some portal and perivenular/perisinusoidal fibrosis, the significance of which is unclear due to the subcapsular nature of this biopsy. No diagnostic cytoplasmic inclusions are identified on PAS-D stain. Prussian blue stain is negative for iron. Overall, these histologic features are likely attributable to mild ischemia/reperfusion injury. Please correlate clinically Performed By: #### S ####[facility] LABCLIA [id number] [address] FINAL DIAGNOSIS Normal [facility] Comment on above: Order Comment: Speci men Type: TISSUE SPECIMENOrdering Facility: [facility] Address: [address] [place] [address] Result Comment: A. N ative liver and gallbladder, total hepatectomy and cholecystectomy:- Cirrhosis. See comment A- Mild chronic cholecystitis with cholelithiasis.B. Donor gallbladder, cholecystectomy:- Acute hemorrhagic cholecystitis with mucosal reactive changes.C. Donor liver, wedge biopsy:- Subcapsular hepatic parenchyma with mild ischemia/reperfusion injury. See comment C Performed By: #### S ####[facility] LABCLIA [id number] [address] FINAL PERFORMING LAB Normal [facility] Comment on above: Order Comment: Speci men Type: TISSUE SPECIMENOrdering Facility: [facility] Address: [address] [place] [address] Result Comment: Diag nostic interpretation performed at [facility], [address] [place] [address] CLIA# [id number] Director: Milind Yang M.D. Performed By: #### S ####[facility] LABIA [id number] [address] GROSS DESCRIPTION Normal [facility] Comment on above: Order Comment: Rasta kennedy Type: TISSUE SPECIMENOrdering Facility: [facility] Address: [address] [place] [address] Result Comment: Rita. Yuriy IVAZALEA RESECTIONReceived in formalin, labeled [place] liver is an entire liver with attached gallbladder weighing 1411.3 g and measuring 20.5 x 19 x 8.5 cm. The capsular surface is butts and dull with a micronodular texture. The overall configuration of the liver is swollen with blunted edges. The hepatic and portal veins are unremarkable. The specimen is sectioned to reveal butts-brown and fibrotic cut surfaces displaying a grossly micronodular pattern. Cirrhotic nodules range in size from less than 0.1 to 0.5 cm. Nodules >1cm are not present. Intrahepatic bile ducts are prominent. Bile lakes are not present. Fibrosis is centered about the portal tracts and is moderate. The gallbladder measures 11 x 5.8 x 2.5 cm with attached 0.2 cm in length by 0.2 cm in diameter cystic duct. The serosal surface is smooth and unremarkable. The hepatic bed is rough and irregular. Opening reveals a moderate amount of brown viscous bile admixed with multiple black, friable calculi ranging from 0.1 to 1 cm in greatest dimension 0.2. The mucosal surface is butts and velvety. No polyps or lesions are identified. The gallbladder wall measures 0.2 cm in thickness. Cnc Programmer sections are submitted as follows:A1 hepatic duct, artery, and portal vein margins shavedA2-A3 hepatic vein margins, shavedA4-A6 senior patient account representative liver to include central, peripheral and subcapsular areasA7 senior patient account representative liverA8 senior patient account representative gallbladder to include cystic ductB. GALLBLADDERReceived in formalin labeled donor gallbladder is a 6.2 x 2.5 x 2 cm cholecystectomy specimen. The serosal surface is duval-brown and remarkable for a sutured defect located at the fundus. The hepatic bed is cauterized. Opening of the gallbladder reveals dark brown-red viscous bile admixed with clotted blood. No calculi are identified. The gallbladder mucosa is brown-dark red and velvety with an average wall thickness of 0.3 cm. No polyps or mass lesions are identified. The cystic duct margin (en face) and senior patient account representative sections of the gallbladder wall are submitted in B1.C. LIVER BIOPSYReceived in formalin, labeled donor liver biopsy is a 0.8 x 0.5 x 0.3 cm wedge of butts, rubbery liver parenchyma. Sectioning reveals unremarkable cut surfaces. The specimen is submitted entirely in C1.[facility] April 06, 2023 11:38 AMGross examination performed at [facility], [address] [place] [address] Performed By: #### S ####[facility] LABCLIA [id number] [facility] [id number] [place] [address] [place] TRANSPLANT CONFIRM ABO/RHon 04-04-2023 ABO A Normal [facility] Comment on above: Order Comment: Speci men Type: BLOOD SPECIMENOrdering Facility: [facility] Address: [address] [place] [id number] Performed By: #### T RCABO ####CC MAIN BLOOD BANKCLIA [id number] [address] [place] Rh Nom (Bld) Positive Normal [facility] Comment on above: Order Comment: Speci men Type: BLOOD SPECIMENOrdering Facility: [facility] Address: [address] [place] [address] Performed By: #### T RCABO ####CC MAIN BLOOD BANKCLIA [id number] [address] TYPE + SCREENon 04-04-2023 ABO A Normal [facility] Comment on above: Order Comment: Speci men Type: BLOOD SPECIMENOrdering Facility: [facility] Address: [address] [place] [address] Performed By: #### T SCR ####CC MA[facility] BLOOD BANKCLIA [id number] [address] OF [facility] HISTORICAL AB SCR STATUS Negative Normal [facility] Comment on above: Order Comment: Speci men Type: BLOOD SPECIMENOrdering Facility: [facility] Address: [address] [place] [address] Performed By: #### T SCR ####CC MAIN BLOOD BANKCLIA [id number] [address] [place] Rh Nom (Bld) Positive Normal [facility] Comment on above: Order Comment: Speci men Type: BLOOD SPECIMENOrdering Facility: [facility] Address: [address] Performed By: #### T SCR ####CC MAIN BLOOD BANKCLIA [id number] [address] [place] TYPE AND SCREEN EXPIRATION 04/07/2023 23:59 Normal [facility] Comment on above: Order Comment: Speci men Type: BLOOD SPECIMENOrdering Facility: [facility] Address: [address] [place] [address] Performed By: #### T SCR ####CC [facility] BLOOD BANKCLIA [id number] [place] [address] [place] US ABD LIVER VASCULARon 03-24 US ABD LIVER VASCULAR Normal [facility] US DOPPLER COMPLETEon 2022 US DOPPLER COMPLETE Normal [facility] XR CHEST 1V FRONTAL PORTon 0 04-04-2023 XR CHEST 1V FRONTAL PORT Normal [facility] XR CHEST 1V FRONTAL PORT Normal [facility] XR CHEST 1V FRONTAL PORT Normal [facility] aPTT PPPon 04-04-2023 aPTT Coag (PPP) [Time] 72.3 s High 23.0-32.4 [facility] Comment on above: Order Comment: Speci men Type: BLOOD SPECIMENOrdering Facility: [facility] Address: [address] [place] [address] Performed By: #### 1 4979-9 ####[facility] LABCLIA [id number] [address] [place] aPTT Coag (PPP) [Time] 31.9 s Normal 23.0-32.4 [facility] Comment on above: Order Comment: Speci men Type: BLOOD SPECIMENOrdering Facility: [facility] Address: [address] [place] [address] Performed By: #### 3 4528-0, 81106-0 ####[facility] LABCLIA [id number] [place] [address] [place] Basic metabolic 2000 panelon 04-03-2023 Anion gap [Moles/Vol] 9 mmol/L Normal 9-18 [facility] Comment on above: Order Comment: Speci men Type: BLOOD SPECIMENOrdering Facility: [facility] Address: [address] [place] [address] Performed By: #### 2 4321-2 ####[facility] LABCLIA [id number] [place] [address] [place] Calcium [Mass/Vol] 9.6 mg/dL Normal 8.5-10.2 [facility] Comment on above: Order Comment: Speci men Type: BLOOD SPECIMENOrdering Facility: [facility] Address: [address] [place] [address] Performed By: #### 2 4321-2 ####[facility] LABCLIA [id number] [place] [address] [place] Chloride [Moles/Vol] 102 mmol/L Normal 97-105 [facility] Comment on above: Order Comment: Speci men Type: BLOOD SPECIMENOrdering Facility: [facility] Address: [address] [place] [address] Performed By: #### 2 4321-2 ####[facility] LABCLIA [id number] [place] [address] [place] CO2 [Moles/Vol] 24 mmol/L Normal 22-30 [facility] Comment on above: Order Comment: Speci men Type: BLOOD SPECIMENOrdering Facility: [facility] Address: [address] [place], [place] [address] Performed By: #### 2 4321-2 ####[facility] LABCLIA [id number] [place] [address] [place] Creatinine [Mass/Vol] 1.04 mg/dL Normal 0.73-1.22 [facility] Comment on above: Order Comment: Speci men Type: BLOOD SPECIMENOrdering Facility: [facility] Address: [address] Performed By: #### 2 4321-2 ####[facility] LABCLIA [id number] [place] [address] [place] ESTIMATED GLOMERULAR FILTRATION RATE 93 mL/min/1.73m??? Normal >=60 [facility] Comment on above: Order Comment: Speci men Type: BLOOD SPECIMENOrdering Facility: [facility] Address: [address] [place] [address] Result Comment: Karma mated Glomerular Filtration Rate (eGFR) is calculated using the 2020 CKD-EPI creatinine equation. This equation utilizes serum creatinine, sex, and age as parameters. The creatinine assay has traceable calibration to isotope dilution-mass spectrometry. Refer to KDIGO guidelines for clinical interpretation. In patients with unstable renal function, e.g. those with acute kidney injury, the eGFR may not accurately reflect actual GFR. Performed By: #### 2 4321-2 ####[facility] LABCLIA [id number] [place] [address] [place] Glucose [Mass/Vol] 106 mg/dL High 74-99 [facility] Comment on above: Order Comment: Rasta kennedy Type: BLOOD SPECIMENOrdering Facility: [facility] Address: [address] [address] Result Comment: The [place] Diabetes [employer] (ADA) provides guidance for cutoff values for fasting glucose and random glucose. The ADA defines fasting as no caloric intake for at least 8 hours. Fasting plasma glucose results between 100 to 125 mg/dL indicate increased risk for diabetes (prediabetes).Fasting plasma glucose results greater than or equal to 126 mg/dL meet the criteria for diagnosis of diabetes. In the absence of unequivocal hyperglycemia, results should be confirmed by repeat testing. In a patient with classic symptoms of hyperglycemia or hyperglycemic crisis, random plasma glucose results greater than or equal to 200 mg/dL meet the criteria for diagnosis of diabetes.Reference: Standards of Medical Care in Diabetes 2016, [place] [employer]. Diabetes Care. 2016.39(Suppl 1). Performed By: #### 2 4321-2 ####[facility] LABCLIA [id number] [place] [address] [place] Potassium [Moles/Vol] 4.8 mmol/L Normal 3.7-5.1 [facility] Comment on above: Order Comment: Rasta kennedy Type: BLOOD SPECIMENOrdering Facility: [facility] Address: [address] [address] Performed By: #### 2 4321-2 ####[facility] LABCLIA [id number] [place] [address] [place] Sodium [Moles/Vol] 135 mmol/L Low 136-144 [facility] Comment on above: Order Comment: Speci men Type: BLOOD SPECIMENOrdering Facility: [facility] Address: [address] [place] [address] Performed By: #### 2 4321-2 ####[facility] LABCLIA [id number] [place] [address] [place] Urea nitrogen [Mass/Vol] 18 mg/dL Normal 9-24 [facility] Comment on above: Order Comment: Speci men Type: BLOOD SPECIMENOrdering Facility: [facility] Address: [address] [place] [address] Performed By: #### 2 4321-2 ####[facility] LABCLIA [id number] [place] [address] [place] CBC panel Auto (Bld)on 04-03 Erythrocyte distribution width (RBC) [Ratio] 13.3 % Normal 11.5-15.0 [facility] Comment on above: Order Comment: Speci men Type: BLOOD SPECIMENOrdering Facility: [facility] Address: [address] [place], [place] [address] Performed By: #### 5 8410-2 ####[facility] LABCLIA [id number] [place] [address] [place] Hematocrit (Bld) [Volume fraction] 28.3 % Low 39.0-51.0 [facility] Comment on above: Order Comment: Speci men Type: BLOOD SPECIMENOrdering Facility: [facility] Address: [address] [place], [place] [address] Performed By: #### 5 8410-2 ####[facility] LABCLIA [id number] [place] [address] [place] Hemoglobin (Bld) [Mass/Vol] 9.6 g/dL Low 13.0-17.0 [facility] Comment on above: Order Comment: Speci men Type: BLOOD SPECIMENOrdering Facility: [facility] Address: [address] Performed By: #### 5 8410-2 ####[facility] [id number] [address] STATES [facility] MCH (RBC) [Entitic mass] 35.0 pg High 26.0-34.0 [facility] Comment on above: Order Comment: Speci men Type: BLOOD SPECIMENOrdering Facility: [facility] Address: [address] Performed By: #### 5 8410-2 ####[facility] [id number] [address] [place] MCHC (RBC) [Mass/Vol] 33.9 g/dL Normal 30.5-36.0 [facility] Comment on above: Order Comment: Speci men Type: BLOOD SPECIMENOrdering Facility: [facility] Address: [address] [place], [place] [address] Performed By: #### 5 8410-2 ####[facility] [id number] [address] [place] MCV (RBC) [Entitic vol] 103.3 fL High 80.0-100.0 [facility] Comment on above: Order Comment: Speci men Type: BLOOD SPECIMENOrdering Facility: [facility] Address: [address] Performed By: #### 5 8410-2 ####[facility] [id number] [address] [place] Nucleated RBC (Bld) [#/Vol] 10*3/uL Normal <0.01 [facility] Comment on above: Order Comment: Speci men Type: BLOOD SPECIMENOrdering Facility: [facility] Address: [address] Performed By: #### 5 8410-2 ####[facility] LABIA [id number] [place] [address] [place] Platelet mean volume (Bld) [Entitic vol] 10.2 fL Normal 9.0-12.7 [facility] Comment on above: Order Comment: Speci men Type: BLOOD SPECIMENOrdering Facility: [facility] Address: [address] [place], [place] [address] Performed By: #### 5 8410-2 ####[facility] LABIA [id number] [place] [address] [place] Platelets (Bld) [#/Vol] 67 10*3/uL Low 150-400 [facility] Comment on above: Order Comment: Speci men Type: BLOOD SPECIMENOrdering Facility: [facility] Address: [address] [place], [place] [address] Result Comment: Resu lts checked and verified.No clot detected. Performed By: #### 5 8410-2 ####[facility] LABIA [id number] [place] [address] [place] RBC (Bld) [#/Vol] 2.74 10*6/uL Low 4.20-6.00 [facility] Comment on above: Order Comment: Speci men Type: BLOOD SPECIMENOrdering Facility: [facility] Address: [address] [place], [place] [address] Performed By: #### 5 8410-2 ####[facility] LABIA [id number] [place] [address] [place] WBC (Bld) [#/Vol] 5.07 10*3/uL Normal 3.70-11.00 [facility] Comment on above: Order Comment: Speci men Type: BLOOD SPECIMENOrdering Facility: [facility] Address: [address] [place], [place] [address] Performed By: #### 5 8410-2 ####[facility] LABCLIA [id number] [place] [address] [place] CNCOon 04-03-2023 CNCO Letter Text Normal [facility] CNDSon 04-03-2023 CNDS Normal [facility] Comprehensive metabolic 2000 panelon 04-03-2023 Albumin [Mass/Vol] 3.9 g/dL Normal 3.9-4.9 [facility] Comment on above: Order Comment: Speci men Type: BLOOD SPECIMENOrdering Facility: [facility] Address: [address] [address] Performed By: #### 2 4323-8 ####[facility] LABCLIA [id number] [place] [address] [place] ALP [Catalytic activity/Vol] 91 U/L Normal 38-113 [facility] Comment on above: Order Comment: Speci men Type: BLOOD SPECIMENOrdering Facility: [facility] Address: [address] [address] Performed By: #### 2 4323-8 ####[facility] LABCLIA [id number] [place] [address] [place] ALT [Catalytic activity/Vol] 16 U/L Normal 10-54 [facility] Comment on above: Order Comment: Speci men Type: BLOOD SPECIMENOrdering Facility: [facility] Address: [address] [place] [address] Performed By: #### 2 4323-8 ####[facility] LABCLIA [id number] [place] [address] [place] Anion gap [Moles/Vol] 11 mmol/L Normal 9-18 [facility] Comment on above: Order Comment: Speci men Type: BLOOD SPECIMENOrdering Facility: [facility] Address: [address] Performed By: #### 2 4323-8 ####[facility] LABCLIA [id number] [place] [address] [place] AST [Catalytic activity/Vol] 37 U/L Normal 14-40 [facility] Comment on above: Order Comment: Speci men Type: BLOOD SPECIMENOrdering Facility: [facility] Address: [address] [place] [address] Performed By: #### 2 4323-8 ####[facility] LABCLIA [id number] [place] [address] [place] Bilirubin [Mass/Vol] 3.5 mg/dL High 0.2-1.3 [facility] Comment on above: Order Comment: Speci men Type: BLOOD SPECIMENOrdering Facility: [facility] Address: [address] [place] [address] Performed By: #### 2 4323-8 ####[facility] LABCLIA [id number] [place] [address] [place] Calcium [Mass/Vol] 9.5 mg/dL Normal 8.5-10.2 [facility] Comment on above: Order Comment: Speci men Type: BLOOD SPECIMENOrdering Facility: [facility] Address: [address] [place] [address] Performed By: #### 2 4323-8 ####[facility] LABCLIA [id number] [place] [address] [place] Chloride [Moles/Vol] 103 mmol/L Normal 97-105 [facility] Comment on above: Order Comment: Speci men Type: BLOOD SPECIMENOrdering Facility: [facility] Address: [address] [place], [place] [address] Performed By: #### 2 4323-8 ####[facility] LABCLIA [id number] [place] [address] [place] CO2 [Moles/Vol] 21 mmol/L Low 22-30 [facility] Comment on above: Order Comment: Speci men Type: BLOOD SPECIMENOrdering Facility: [facility] Address: [address] [address] Performed By: #### 2 4323-8 ####[facility] LABIA [id number] [address] STATES OF [facility] Creatinine [Mass/Vol] 1.04 mg/dL Normal 0.73-1.22 [facility] Comment on above: Order Comment: Speci men Type: BLOOD SPECIMENOrdering Facility: [facility] Address: [address] [address] Performed By: #### 2 4323-8 ####[facility] LABIA [id number] [address] OF [facility] ESTIMATED GLOMERULAR FILTRATION RATE 93 mL/min/1.73m??? Normal >=60 [facility] Comment on above: Order Comment: Speci men Type: BLOOD SPECIMENOrdering Facility: [facility] Address: [address] [address] Result Comment: Karma mated Glomerular Filtration Rate (eGFR) is calculated using the 2020 CKD-EPI creatinine equation. This equation utilizes serum creatinine, sex, and age as parameters. The creatinine assay has traceable calibration to isotope dilution-mass spectrometry. Refer to KDIGO guidelines for clinical interpretation. In patients with unstable renal function, e.g. those with acute kidney injury, the eGFR may not accurately reflect actual GFR. Performed By: #### 2 4323-8 ####[facility] LABIA [id number] [address] [place] Glucose [Mass/Vol] 94 mg/dL Normal 74-99 [facility] Comment on above: Order Comment: Speci men Type: BLOOD SPECIMENOrdering Facility: [facility] Address: [address] [address] Result Comment: The [place] Diabetes [employer] (ADA) provides guidance for cutoff values for fasting glucose and random glucose. The ADA defines fasting as no caloric intake for at least 8 hours. Fasting plasma glucose results between 100 to 125 mg/dL indicate increased risk for diabetes (prediabetes).Fasting plasma glucose results greater than or equal to 126 mg/dL meet the criteria for diagnosis of diabetes. In the absence of unequivocal hyperglycemia, results should be confirmed by repeat testing. In a patient with classic symptoms of hyperglycemia or hyperglycemic crisis, random plasma glucose results greater than or equal to 200 mg/dL meet the criteria for diagnosis of diabetes.Reference: Standards of Medical Care in Diabetes 2016, [place] [employer]. Diabetes Care. 2016.39(Suppl 1). Performed By: #### 2 4323-8 ####[facility] LABIA [id number] [place] [address] [place] Potassium [Moles/Vol] 4.5 mmol/L Normal 3.7-5.1 [facility] Comment on above: Order Comment: Speci men Type: BLOOD SPECIMENOrdering Facility: [facility] Address: [address] [place] [address] Performed By: #### 2 4323-8 ####[facility] LABIA [id number] [place] [address] [place] Protein [Mass/Vol] 6.6 g/dL Normal 6.3-8.0 [facility] Comment on above: Order Comment: Yuryi men Type: BLOOD SPECIMENOrdering Facility: [facility] Address: [address] [place] [address] Performed By: #### 2 4323-8 ####[facility] LABIA [id number] [place] [address] [place] Sodium [Moles/Vol] 135 mmol/L Low 136-144 [facility] Comment on above: Order Comment: Speci men Type: BLOOD SPECIMENOrdering Facility: [facility] Address: [address] [place] [address] Performed By: #### 2 4323-8 ####[facility] LABIA [id number] [place] [address] [place] Urea nitrogen [Mass/Vol] 17 mg/dL Normal 9-24 [facility] Comment on above: Order Comment: Speci men Type: BLOOD SPECIMENOrdering Facility: [facility] Address: [address] [place] [address] Performed By: #### 2 4323-8 ####[facility] LABCLIA [id number] [place] [address] [place] PT panel Coag (PPP)on 2022 INR Coag (PPP) [Relative time] 1.4 {INR} High 0.9-1.3 [facility] Comment on above: Order Comment: Speci brent Type: BLOOD SPECIMENOrdering Facility: [facility] Address: [place] [address] Result Comment: Binta min K Antagonist (VKA) Therapeutic Range: INR 2 to 3 (Target INR of 2.5)Note: For patients treated with VKA drugs, such as warfarin, the [place] [employer] 2012 Guideline recommends a therapeutic INR range of 2 to 3 (target INR of 2.5). This recommendation includes high-risk patients with antiphospholipid syndrome with previous arterial or venous thromboembolism, current-generation mechanical or bioprosthetic aortic heart valve replacement.Note: Patients with mechanical aortic valve replacement and additional risk factors for thromboembolic events (atrial fibrillation, previous thromboembolism, LV dysfunction, hypercoagulable conditions) or an older generation mechanical AVR (i.e., ball in-Cage) or any mechanical MVR should have a INR therapeutic range of 2.5 to 3.5 (target INR of 3).Robyn GH, et al. Chest 2012, 141:7S-47SNishimyumiko RA, et al. [facility] 2017, 70: 252-289 Performed By: #### 3 4528-0 ####[facility] [id number] [place] [address] [place] PT Coag (PPP) [Time] 14.2 s High 9.7-13.0 [facility] Comment on above: Order Comment: Speci men Type: BLOOD SPECIMENOrdering Facility: [facility] Address: [address] [place] [id number] Performed By: #### 3 4528-0 ####[facility] LABCLIA [id number] [place] [address] [place] Basic metabolic 2000 panelon 04-02-2023 Anion gap [Moles/Vol] 10 mmol/L Normal 9-18 [facility] Comment on above: Order Comment: Speci men Type: BLOOD SPECIMENOrdering Facility: [facility] Address: [address] [place] [address] Performed By: #### 2 4321-2, 2531-0 ####[facility] LABCLIA [id number] [place] [address] [place] Calcium [Mass/Vol] 9.9 mg/dL Normal 8.5-10.2 [facility] Comment on above: Order Comment: Speci men Type: BLOOD SPECIMENOrdering Facility: [facility] Address: [address] Performed By: #### 2 4320-2, 2531-0 ####[facility] LABCLIA [id number] [place] [address] [place] Chloride [Moles/Vol] 100 mmol/L Normal 97-105 [facility] Comment on above: Order Comment: Speci men Type: BLOOD SPECIMENOrdering Facility: [facility] Address: [address] [place] [address] Performed By: #### 2 4320-2, 2532-0 ####[facility] LABCLIA [id number] [place] [address] [place] CO2 [Moles/Vol] 23 mmol/L Normal 22-30 [facility] Comment on above: Order Comment: Speci men Type: BLOOD SPECIMENOrdering Facility: [facility] Address: [address] Performed By: #### 2 4320-2, 2532-0 ####[facility] LABCLIA [id number] [place] [address] [place] Creatinine [Mass/Vol] 1.10 mg/dL Normal 0.73-1.22 [facility] Comment on above: Order Comment: Rasta kennedy Type: BLOOD SPECIMENOrdering Facility: [facility] Address: [address] [place] [address] Performed By: #### 2 432-2, 2531-0 ####[facility] LABIA [id number] [address] STATES OF [facility] ESTIMATED GLOMERULAR FILTRATION RATE 86 mL/min/1.73m??? Normal >=60 [facility] Comment on above: Order Comment: Rasta kennedy Type: BLOOD SPECIMENOrdering Facility: [facility] Address: [address] [place] [address] Result Comment: Karma mated Glomerular Filtration Rate (eGFR) is calculated using the 2020 CKD-EPI creatinine equation. This equation utilizes serum creatinine, sex, and age as parameters. The creatinine assay has traceable calibration to isotope dilution-mass spectrometry. Refer to KDIGO guidelines for clinical interpretation. In patients with unstable renal function, e.g. those with acute kidney injury, the eGFR may not accurately reflect actual GFR. Performed By: #### 2 4320-09, 0 ####[facility] LABIA [id number] [place] [address] [place] Glucose [Mass/Vol] 90 mg/dL Normal 74-99 [facility] Comment on above: Order Comment: Rasta kennedy Type: BLOOD SPECIMENOrdering Facility: [facility] Address: [address] [place] [address] Result Comment: The [place] [employer] (ADA) provides guidance for cutoff values for fasting glucose and random glucose. The ADA defines fasting as no caloric intake for at least 8 hours. Fasting plasma glucose results between 100 to 125 mg/dL indicate increased risk for diabetes (prediabetes).Fasting plasma glucose results greater than or equal to 126 mg/dL meet the criteria for diagnosis of diabetes. In the absence of unequivocal hyperglycemia, results should be confirmed by repeat testing. In a patient with classic symptoms of hyperglycemia or hyperglycemic crisis, random plasma glucose results greater than or equal to 200 mg/dL meet the criteria for diagnosis of diabetes.Reference: Standards of Medical Care in Diabetes 2016, [place] [employer]. Diabetes Care. 2016.39(Suppl 1). Performed By: #### 2 4320-09, 0 ####[facility] LABCLIA [id number] [place] [address] [place] Potassium [Moles/Vol] 5.3 mmol/L High 3.7-5.1 [facility] Comment on above: Order Comment: Speci men Type: BLOOD SPECIMENOrdering Facility: [facility] Address: [address] [place] [address] Performed By: #### 2 4320-09, ####[facility] LABCLIA [id number] [place] [address] [place] Sodium [Moles/Vol] 133 mmol/L Low 136-144 [facility] Comment on above: Order Comment: Speci men Type: BLOOD SPECIMENOrdering Facility: [facility] Address: [address] [place], [place] [address] Performed By: #### 2 4320-09, ####[facility] LABCLIA [id number] [place] [address] [place] Urea nitrogen [Mass/Vol] 20 mg/dL Normal 9-24 [facility] Comment on above: Order Comment: Speci men Type: BLOOD SPECIMENOrdering Facility: [facility] Address: [address] [place] [address] Performed By: #### 2 4320-09, 0 ####[facility] LABCLIA [id number] [place] [id number] [place] CASE MGT INIT ASSESon 2022 CASE MGT INIT ASSES Normal [facility] CBC panel Auto (Bld)on 04-02 Erythrocyte distribution width (RBC) [Ratio] 13.3 % Normal 11.5-15.0 [facility] Comment on above: Order Comment: Speci men Type: BLOOD SPECIMENOrdering Facility: [facility] Address: [address] [place] [address] Performed By: #### 5 8410-2 ####[facility] LABIA [id number] [address] STATES OF [facility] Hematocrit (Bld) [Volume fraction] 30.4 % Low 39.0-51.0 [facility] Comment on above: Order Comment: Speci men Type: BLOOD SPECIMENOrdering Facility: [facility] Address: [address] [place] [address] Performed By: #### 5 8410-2 ####[facility] LABIA [id number] [address] [place] Hemoglobin (Bld) [Mass/Vol] 10.3 g/dL Low 13.0-17.0 [facility] Comment on above: Order Comment: Speci men Type: BLOOD SPECIMENOrdering Facility: [facility] Address: [address] [place] [address] Performed By: #### 5 8410-2 ####[facility] LABIA [id number] [place] [address] [place] MCH (RBC) [Entitic mass] 34.8 pg High 26.0-34.0 [facility] Comment on above: Order Comment: Speci men Type: BLOOD SPECIMENOrdering Facility: [facility] Address: [address] [place] [address] Performed By: #### 5 8410-2 ####[facility] LABIA [id number] [address] [place] MCHC (RBC) [Mass/Vol] 33.9 g/dL Normal 30.5-36.0 [facility] Comment on above: Order Comment: Speci men Type: BLOOD SPECIMENOrdering Facility: [facility] Address: [address] Performed By: #### 5 8410-2 ####[facility] LABIA [id number] [address] [place] MCV (RBC) [Entitic vol] 102.7 fL High 80.0-100.0 [facility] Comment on above: Order Comment: Speci men Type: BLOOD SPECIMENOrdering Facility: [facility] Address: [address] Performed By: #### 5 8410-2 ####[facility] [id number] [place] [address] [place] Nucleated RBC (Bld) [#/Vol] 10*3/uL Normal <0.01 [facility] Comment on above: Order Comment: Speci men Type: BLOOD SPECIMENOrdering Facility: [facility] Address: [address] [place], [place] [address] Performed By: #### 5 8410-2 ####[facility] [id number] [place] [address] [place] Platelet mean volume (Bld) [Entitic vol] 9.5 fL Normal 9.0-12.7 [facility] Comment on above: Order Comment: Speci men Type: BLOOD SPECIMENOrdering Facility: [facility] Address: [address] [place], [place] [address] Performed By: #### 5 8410-2 ####[facility]IA [id number] [place] [address] [place] Platelets (Bld) [#/Vol] 91 10*3/uL Low 150-400 [facility] Comment on above: Order Comment: Speci men Type: BLOOD SPECIMENOrdering Facility: [facility] Address: [address] [place], [place] [address] Result Comment: Resu lts checked and verified.No clot detected. Performed By: #### 5 8410-2 ####[facility] LABCLIA [id number] [place] [address] [place] RBC (Bld) [#/Vol] 2.96 10*6/uL Low 4.20-6.00 [facility] Comment on above: Order Comment: Speci men Type: BLOOD SPECIMENOrdering Facility: [facility] Address: [address] [address] Performed By: #### 5 8410-2 ####[facility] LABIA [id number] [place] [address] [place] [facility] [place] WBC (Bld) [#/Vol] 7.06 10*3/uL Normal 3.70-11.00 [facility] Comment on above: Order Comment: Speci men Type: BLOOD SPECIMENOrdering Facility: [facility] Address: [address] [place] [address] Performed By: #### 5 8410-2 ####[facility] LABIA [id number] [place] [address] [place] Erythrocyte distribution width (RBC) [Ratio] 13.4 % Normal 11.5-15.0 [facility] Comment on above: Order Comment: Speci men Type: BLOOD SPECIMENOrdering Facility: [facility] Address: [address] [place] [address] Performed By: #### 5 8410-2 ####[facility]IA [id number] [place] [address] [place] Hematocrit (Bld) [Volume fraction] 27.5 % Low 39.0-51.0 [facility] Comment on above: Order Comment: Speci men Type: BLOOD SPECIMENOrdering Facility: [facility] Address: [address] [place] [address] Performed By: #### 5 8410-2 ####[facility] [id number] [address] [place] Hemoglobin (Bld) [Mass/Vol] 9.1 g/dL Low 13.0-17.0 [facility] Comment on above: Order Comment: Speci men Type: BLOOD SPECIMENOrdering Facility: [facility] Address: [address] [place] [address] Performed By: #### 5 8410-2 ####[facility] [id number] [address] [place] MCH (RBC) [Entitic mass] 34.7 pg High 26.0-34.0 [facility] Comment on above: Order Comment: Speci men Type: BLOOD SPECIMENOrdering Facility: [facility] Address: [address] [place] [address] Performed By: #### 5 8410-2 ####[facility] [id number] [address] OF [facility] MCHC (RBC) [Mass/Vol] 33.1 g/dL Normal 30.5-36.0 [facility] Comment on above: Order Comment: Speci men Type: BLOOD SPECIMENOrdering Facility: [facility] Address: [address] [place] [address] Performed By: #### 5 8410-2 ####[facility] [id number] [place] [address] [place] MCV (RBC) [Entitic vol] 105.0 fL High 80.0-100.0 [facility] Comment on above: Order Comment: Speci men Type: BLOOD SPECIMENOrdering Facility: [facility] Address: [address] [place] [address] Performed By: #### 5 8410-2 ####[facility] [id number] [address] [place] Nucleated RBC (Bld) [#/Vol] 10*3/uL Normal <0.01 [facility] Comment on above: Order Comment: Speci men Type: BLOOD SPECIMENOrdering Facility: [facility] Address: [address] [place] [address] Performed By: #### 5 8410-2 ####[facility] LABCLIA [id number] [place] [address] [place] Platelet mean volume (Bld) [Entitic vol] 10.3 fL Normal 9.0-12.7 [facility] Comment on above: Order Comment: Speci men Type: BLOOD SPECIMENOrdering Facility: [facility] Address: [address] [place] [address] Performed By: #### 5 8410-2 ####[facility] LABIA [id number] [place] [address] [place] Platelets (Bld) [#/Vol] 57 10*3/uL Low 150-400 [facility] Comment on above: Order Comment: Speci men Type: BLOOD SPECIMENOrdering Facility: [facility] Address: [address] [place] [address] Result Comment: No c lot detected. Performed By: #### 5 8410-2 ####[facility]IA [id number] [place] [address] [place] RBC (Bld) [#/Vol] 2.62 10*6/uL Low 4.20-6.00 [facility] Comment on above: Order Comment: Speci men Type: BLOOD SPECIMENOrdering Facility: [facility] Address: [address] [place], [place] [address] Performed By: #### 5 8410-2 ####[facility]IA [id number] [place] [address] [place] WBC (Bld) [#/Vol] 4.53 10*3/uL Normal 3.70-11.00 [facility] Comment on above: Order Comment: Speci men Type: BLOOD SPECIMENOrdering Facility: [facility] Address: [address] [address] Performed By: #### 5 8410-2 ####[facility] LABIA [id number] [place] [address] [place] Comprehensive metabolic 2000 panelon 04-02-2023 Albumin [Mass/Vol] 3.6 g/dL Low 3.9-4.9 [facility] Comment on above: Order Comment: Speci men Type: BLOOD SPECIMENOrdering Facility: [facility] Address: [address] [place] [address] Performed By: #### 4 542-7, 09698-0 ####[facility]IA [id number] [place] [address] [place] ALP [Catalytic activity/Vol] 82 U/L Normal 38-113 [facility] Comment on above: Order Comment: Speci men Type: BLOOD SPECIMENOrdering Facility: [facility] Address: [address] Performed By: #### 4 542-7, 52207-6 ####[facility]IA [id number] [address] [place] ALT [Catalytic activity/Vol] 14 U/L Normal 10-54 [facility] Comment on above: Order Comment: Speci men Type: BLOOD SPECIMENOrdering Facility: [facility] Address: [address] Performed By: #### 4 542-7, 56422-5 ####[facility]IA [id number] [place] [address] [place] Anion gap [Moles/Vol] 11 mmol/L Normal 9-18 [facility] Comment on above: Order Comment: Speci men Type: BLOOD SPECIMENOrdering Facility: [facility] Address: [address] [place], [place] [address] Performed By: #### 4 542-7, 89698-3 ####[facility] LABCLIA [id number] [place] [address] [place] AST [Catalytic activity/Vol] 35 U/L Normal 14-40 [facility] Comment on above: Order Comment: Speci men Type: BLOOD SPECIMENOrdering Facility: [facility] Address: [address] [place] [address] Performed By: #### 4 542-7, 50310-9 ####[facility] [id number] [place] [address] [place] Bilirubin [Mass/Vol] 2.7 mg/dL High 0.2-1.3 [facility] Comment on above: Order Comment: Speci men Type: BLOOD SPECIMENOrdering Facility: [facility] Address: [address] [address] Performed By: #### 4 542-7, 26837-7 ####[facility] LABIA [id number] [place] [address] [place] Calcium [Mass/Vol] 9.3 mg/dL Normal 8.5-10.2 [facility] Comment on above: Order Comment: Speci men Type: BLOOD SPECIMENOrdering Facility: [facility] Address: [address] Performed By: #### 4 542-7, 28638-1 ####[facility]IA [id number] [place] [address] [place] Chloride [Moles/Vol] 105 mmol/L Normal 97-105 [facility] Comment on above: Order Comment: Speci men Type: BLOOD SPECIMENOrdering Facility: [facility] Address: [address] Performed By: #### 4 542-7, 06416-2 ####[facility] [id number] [address] [place] CO2 [Moles/Vol] 20 mmol/L Low 22-30 [facility] Comment on above: Order Comment: Speci men Type: BLOOD SPECIMENOrdering Facility: [facility] Address: [address] [place] [address] Performed By: #### 4 542-7, 46475-8 ####[facility] LABCLIA [id number] [address] STATES OF [facility] Creatinine [Mass/Vol] 1.17 mg/dL Normal 0.73-1.22 [facility] Comment on above: Order Comment: Speci men Type: BLOOD SPECIMENOrdering Facility: [facility] Address: [address] [place] [address] Performed By: #### 4 542-7, 26866-8 ####[facility] LABCLIA [id number] [address] OF [facility] ESTIMATED GLOMERULAR FILTRATION RATE 80 mL/min/1.73m??? Normal >=60 [facility] Comment on above: Order Comment: Speci men Type: BLOOD SPECIMENOrdering Facility: [facility] Address: [address] [place] [address] Result Comment: Karma mated Glomerular Filtration Rate (eGFR) is calculated using the 2020 CKD-EPI creatinine equation. This equation utilizes serum creatinine, sex, and age as parameters. The creatinine assay has traceable calibration to isotope dilution-mass spectrometry. Refer to KDIGO guidelines for clinical interpretation. In patients with unstable renal function, e.g. those with acute kidney injury, the eGFR may not accurately reflect actual GFR. Performed By: #### 4 542-7, 78737-8 ####[facility] LABCLIA [id number] [place] [address] [place] Glucose [Mass/Vol] 86 mg/dL Normal 74-99 [facility] Comment on above: Order Comment: Speci men Type: BLOOD SPECIMENOrdering Facility: [facility] Address: [address] [place] [address] Result Comment: The [place] [employer] (ADA) provides guidance for cutoff values for fasting glucose and random glucose. The ADA defines fasting as no caloric intake for at least 8 hours. Fasting plasma glucose results between 100 to 125 mg/dL indicate increased risk for diabetes (prediabetes).Fasting plasma glucose results greater than or equal to 126 mg/dL meet the criteria for diagnosis of diabetes. In the absence of unequivocal hyperglycemia, results should be confirmed by repeat testing. In a patient with classic symptoms of hyperglycemia or hyperglycemic crisis, random plasma glucose results greater than or equal to 200 mg/dL meet the criteria for diagnosis of diabetes.Reference: Standards of Medical Care in Diabetes 2016, [place] [employer]. Diabetes Care. 2016.39(Suppl 1). Performed By: #### 4 542-7, 85872-2 ####[facility] [id number] [place] [address] [place] Potassium [Moles/Vol] 5.6 mmol/L High 3.7-5.1 [facility] Comment on above: Order Comment: Speci men Type: BLOOD SPECIMENOrdering Facility: [facility] Address: [address] [address] Performed By: #### 4 542-7, 51515-1 ####[facility] [id number] [place] [address] [place] Protein [Mass/Vol] 6.0 g/dL Low 6.3-8.0 [facility] Comment on above: Order Comment: Speci men Type: BLOOD SPECIMENOrdering Facility: [facility] Address: [address] [address] Performed By: #### 4 542-7, 59214-1 ####[facility] [id number] [place] [address] [place] Sodium [Moles/Vol] 136 mmol/L Normal 136-144 [facility] Comment on above: Order Comment: Speci men Type: BLOOD SPECIMENOrdering Facility: [facility] Address: [address] [place], [place] [address] Performed By: #### 4 542-7, 00904-3 ####[facility] [id number] [place] [address] [place] [facility] Urea nitrogen [Mass/Vol] 24 mg/dL Normal 9-24 [facility] Comment on above: Order Comment: Speci men Type: BLOOD SPECIMENOrdering Facility: [facility] Address: [address] [place], [place] [address] Performed By: #### 4 542-7, 28437-8 ####[facility] [id number] [place] [address] [place] Haptoglob SerPl-mCncon 04-02 Haptoglobin [Mass/Vol] mg/dL Low 31-238 [facility] Comment on above: Order Comment: Speci men Type: BLOOD SPECIMENOrdering Facility: [facility] Address: [address] [place] [address] Performed By: #### 4 542-7, 52761-7 ####[facility] [id number] [place] [address] [place] LDH SerPl-cCncon 04-02-2023 LDH [Catalytic activity/Vol] 196 U/L Normal 135-225 [facility] Comment on above: Order Comment: Speci men Type: BLOOD SPECIMENOrdering Facility: [facility] Address: [address] [place], [place] [address] Performed By: #### 2 4321-2, 2532-0 ####[facility] [id number] [place] [address] [place] PT panel Coag (PPP)on 2022 INR Coag (PPP) [Relative time] 1.4 {INR} High 0.9-1.3 [facility] Comment on above: Order Comment: Speci men Type: BLOOD SPECIMENOrdering Facility: [facility] Address: [address] [place], [place] [address] Result Comment: Binta min K Antagonist (VKA) Therapeutic Range: INR 2 to 3 (Target INR of 2.5)Note: For patients treated with VKA drugs, such as warfarin, the [place] [employer] 2012 Guideline recommends a therapeutic INR range of 2 to 3 (target INR of 2.5). This recommendation includes high-risk patients with antiphospholipid syndrome with previous arterial or venous thromboembolism, current-generation mechanical or bioprosthetic aortic heart valve replacement.Note: Patients with mechanical aortic valve replacement and additional risk factors for thromboembolic events (atrial fibrillation, previous thromboembolism, LV dysfunction, hypercoagulable conditions) or an older generation mechanical AVR (i.e., ball in-Cage) or any mechanical MVR should have a INR therapeutic range of 2.5 to 3.5 (target INR of 3).Robyn ALFORD, et al. Chest 2012, 141:7S-47SNishdino RA, et al. [facility] 2017, 70: 252-289 Performed By: #### 3 4528-0 ####[facility] LABCL[facility] [id number] [place] [address] [place] PT Coag (PPP) [Time] 14.1 s High 9.7-13.0 [facility] Comment on above: Order Comment: Speci men Type: BLOOD SPECIMENOrdering Facility: [facility] Address: [address] [place], [place] [address] Performed By: #### 3 4528-0 ####[facility] LABCLIA [id number] [place] [address] [place] THERAPY NTon 04-02-2023 THERAPY NT Normal [facility] THERAPY NT Normal [facility] Urinalysis complete panel (U )on 04-02-2023 Bilirubin Ql (U) Negative Normal Negative [facility] Comment on above: Order Comment: Speci men Type: URINE SPECIMENOrdering Facility: [facility] Address: [address] [id number] Performed By: #### 2 4356-8 ####[facility]CL[facility] [id number] [place] [address] [place] Clarity (Unsp spec) Clear Normal Clear [facility] Comment on above: Order Comment: Speci men Type: URINE SPECIMENOrdering Facility: [facility] Address: [address] [address] Performed By: #### 2 4356-8 ####[facility]CL[facility] [id number] [place] [address] [place] Color (U) Yellow Normal Yellow [facility] Comment on above: Order Comment: Speci men Type: URINE SPECIMENOrdering Facility: [facility] Address: [address] [address] Performed By: #### 2 4356-8 ####[facility]CL[facility] [id number] [place] [address] [place] Epithelial cells LM.HPF (Urine sed) [#/Area] Few Normal [facility] Comment on above: Order Comment: Speci men Type: URINE SPECIMENOrdering Facility: [facility] Address: [address] [place] [address] Performed By: #### 2 4356-8 ####[facility]CL[facility] [id number] [place] [address] [place] Glucose Test strip (U) [Mass/Vol] Negative Normal Trace, Negative [facility] Comment on above: Order Comment: Speci men Type: URINE SPECIMENOrdering Facility: [facility] Address: [address] Performed By: #### 2 4356-8 ####[facility]CL[facility] [id number] [place] [address] [place] Hemoglobin Ql (U) Negative Normal Negative, Trace [facility] Comment on above: Order Comment: Speci men Type: URINE SPECIMENOrdering Facility: [facility] Address: [address] Performed By: #### 2 4356-8 ####[facility]CL[facility] [id number] [place] [address] [place] Hyaline casts (Urine sed) [#/Area] 1-3 /LPF Abnormal 0 /LPF [facility] Comment on above: Order Comment: Speci men Type: URINE SPECIMENOrdering Facility: [facility] Address: [address] [place] [address] Performed By: #### 2 4356-8 ####[facility]CL[facility] [id number] [place] [address] [place] Ketones Ql (U) Negative Normal Trace, Negative [facility] Comment on above: Order Comment: Speci men Type: URINE SPECIMENOrdering Facility: [facility] Address: [address] [place] [address] Performed By: #### 2 4356-8 ####[facility] [id number] [place] [address] [place] Leukocyte esterase Test strip Ql (U) Negative Normal Negative, 25 Ovidio/uL [facility] Comment on above: Order Comment: Speci men Type: URINE SPECIMENOrdering Facility: [facility] Address: [address] [place] [address] Performed By: #### 2 4356-8 ####[facility]CL[facility] [id number] [place] [address] [place] Nitrite Ql (U) Negative Normal Negative [facility] Comment on above: Order Comment: Speci men Type: URINE SPECIMENOrdering Facility: [facility] Address: [address] [place], [place] [address] Performed By: #### 2 4356-8 ####[facility]CL[facility] [id number] [place] [address] [place] pH (U) 6.0 [pH] Normal 5.0-8.0 [facility] Comment on above: Order Comment: Speci men Type: URINE SPECIMENOrdering Facility: [facility] Address: [address] [place], [place] [address] Performed By: #### 2 4356-8 ####[facility] [id number] [place] [address] [place] Protein (U) [Mass/Vol] Trace Normal Trace, Negative [facility] Comment on above: Order Comment: Speci men Type: URINE SPECIMENOrdering Facility: [facility] Address: [address] Performed By: #### 2 4356-8 ####[facility] [id number] [place] [address] [place] RBC LM.HPF (Urine sed) [#/Area] 0-3 /HPF Normal 0-3 /HPF [facility] Comment on above: Order Comment: Speci men Type: URINE SPECIMENOrdering Facility: [facility] Address: [address] [place], [place] [address] Performed By: #### 2 4356-8 ####[facility] [id number] [place] [address] [place] Specific gravity (U) [Rel density] 1.022 Normal 1.005-1.030 [facility] Comment on above: Order Comment: Speci men Type: URINE SPECIMENOrdering Facility: [facility] Address: [address] [place], [place] [address] Performed By: #### 2 4356-8 ####[facility] [id number] [place] [address] [place] Urobilinogen Ql (U) Negative Normal Negative [facility] Comment on above: Order Comment: Speci men Type: URINE SPECIMENOrdering Facility: [facility] Address: [address] Performed By: #### 2 4356-8 ####[facility] LABCLIA [id number] [place] [address] [place] WBC LM.HPF (Urine sed) [#/Area] 0-5 /HPF Normal 0-5 /HPF [facility] Comment on above: Order Comment: Speci men Type: URINE SPECIMENOrdering Facility: [facility] Address: [address] [place] [address] Performed By: #### 2 4356-8 ####[facility] LABIA [id number] [place] [address] [place] CBC panel Auto (Bld)on 04-01 Erythrocyte distribution width (RBC) [Ratio] 13.5 % Normal 11.5-15.0 [facility] Comment on above: Order Comment: Speci men Type: BLOOD SPECIMENOrdering Facility: [facility] Address: [address] [place] [address] Performed By: #### 5 8410-2 ####[facility] [id number] [place] [address] [place] Hematocrit (Bld) [Volume fraction] 30.2 % Low 39.0-51.0 [facility] Comment on above: Order Comment: Speci men Type: BLOOD SPECIMENOrdering Facility: [facility] Address: [address] [place] [address] Performed By: #### 5 8410-2 ####[facility] LABIA [id number] [place] [address] [place] Hemoglobin (Bld) [Mass/Vol] 10.5 g/dL Low 13.0-17.0 [facility] Comment on above: Order Comment: Speci men Type: BLOOD SPECIMENOrdering Facility: [facility] Address: [address] [place] [address] Performed By: #### 5 8410-2 ####[facility] LABIA [id number] [address] MCH (RBC) [Entitic mass] 35.5 pg High 26.0-34.0 [facility] Comment on above: Order Comment: Speci men Type: BLOOD SPECIMENOrdering Facility: [facility] Address: [address] [place] [address] Performed By: #### 5 8410-2 ####[facility] LABIA [id number] [address] STATES [facility] MCHC (RBC) [Mass/Vol] 34.8 g/dL Normal 30.5-36.0 [facility] Comment on above: Order Comment: Speci men Type: BLOOD SPECIMENOrdering Facility: [facility] Address: [address] [place] [address] Performed By: #### 5 8410-2 ####[facility] LABCLIA [id number] [address] [place] MCV (RBC) [Entitic vol] 102.0 fL High 80.0-100.0 [facility] Comment on above: Order Comment: Speci men Type: BLOOD SPECIMENOrdering Facility: [facility] Address: [address] [place] [address] Performed By: #### 5 8410-2 ####[facility] LABIA [id number] [address] [place] Nucleated RBC (Bld) [#/Vol] 10*3/uL Normal <0.01 [facility] Comment on above: Order Comment: Speci men Type: BLOOD SPECIMENOrdering Facility: [facility] Address: [address] [place], [place] [address] Performed By: #### 5 8410-2 ####[facility] LABCLIA [id number] [address] [place] Platelet mean volume (Bld) [Entitic vol] 9.9 fL Normal 9.0-12.7 [facility] Comment on above: Order Comment: Speci men Type: BLOOD SPECIMENOrdering Facility: [facility] Address: [address] [place] [address] Performed By: #### 5 8410-2 ####[facility] LABCLIA [id number] [place] [address] [place] Platelets (Bld) [#/Vol] 75 10*3/uL Low 150-400 [facility] Comment on above: Order Comment: Speci men Type: BLOOD SPECIMENOrdering Facility: [facility] Address: [address] [place] [address] Result Comment: No c lot detected. Performed By: #### 5 8410-2 ####[facility] LABCLIA [id number] [place] [address] [place] RBC (Bld) [#/Vol] 2.96 10*6/uL Low 4.20-6.00 [facility] Comment on above: Order Comment: Speci men Type: BLOOD SPECIMENOrdering Facility: [facility] Address: [address] [place] [address] Performed By: #### 5 8410-2 ####[facility] LABCLIA [id number] [place] [address] [place] WBC (Bld) [#/Vol] 5.72 10*3/uL Normal 3.70-11.00 [facility] Comment on above: Order Comment: Speci men Type: BLOOD SPECIMENOrdering Facility: [facility] Address: [address] [place] [address] Performed By: #### 5 8410-2 ####[facility] LABCLIA [id number] [place] [address] [place] CNCOon 04-01-2023 CN[facility] Letter Text Normal [facility] Comprehensive metabolic 2000 panelon 04-01-2023 Albumin [Mass/Vol] 3.7 g/dL Low 3.9-4.9 [facility] Comment on above: Order Comment: Speci men Type: BLOOD SPECIMENOrdering Facility: [facility] Address: [address] Performed By: #### 2 4323-8 ####[facility] LABCLIA [id number] [place] [address] [place] ALP [Catalytic activity/Vol] 99 U/L Normal 38-113 [facility] Comment on above: Order Comment: Speci men Type: BLOOD SPECIMENOrdering Facility: [facility] Address: [address] Performed By: #### 2 4323-8 ####[facility] LABCLIA [id number] [place] [address] [place] ALT [Catalytic activity/Vol] 17 U/L Normal 10-54 [facility] Comment on above: Order Comment: Speci men Type: BLOOD SPECIMENOrdering Facility: [facility] Address: [address] Performed By: #### 2 4323-8 ####[facility] LABCLIA [id number] [place] [address] [place] Anion gap [Moles/Vol] 8 mmol/L Low 9-18 [facility] Comment on above: Order Comment: Speci men Type: BLOOD SPECIMENOrdering Facility: [facility] Address: [address] Performed By: #### 2 4323-8 ####[facility] LABCLIA [id number] [place] [address] [place] AST [Catalytic activity/Vol] 42 U/L High 14-40 [facility] Comment on above: Order Comment: Speci men Type: BLOOD SPECIMENOrdering Facility: [facility] Address: [address] Performed By: #### 2 4323-8 ####[facility] LABCLIA [id number] [place] [address] [place] Bilirubin [Mass/Vol] 2.4 mg/dL High 0.2-1.3 [facility] Comment on above: Order Comment: Speci men Type: BLOOD SPECIMENOrdering Facility: [facility] Address: [address] [place] [address] Performed By: #### 2 4323-8 ####[facility] LABCLIA [id number] [place] [address] [place] Calcium [Mass/Vol] 9.8 mg/dL Normal 8.5-10.2 [facility] Comment on above: Order Comment: Speci men Type: BLOOD SPECIMENOrdering Facility: [facility] Address: [address] [place] [address] Performed By: #### 2 4323-8 ####[facility] LABCLIA [id number] [place] [address] [place] Chloride [Moles/Vol] 102 mmol/L Normal 97-105 [facility] Comment on above: Order Comment: Speci men Type: BLOOD SPECIMENOrdering Facility: [facility] Address: [address] [place] [address] Performed By: #### 2 4323-8 ####[facility] LABCLIA [id number] [place] [address] [place] CO2 [Moles/Vol] 25 mmol/L Normal 22-30 [facility] Comment on above: Order Comment: Speci men Type: BLOOD SPECIMENOrdering Facility: [facility] Address: [address] [place], [place] [address] Performed By: #### 2 4323-8 ####[facility] LABCLIA [id number] [place] [address] [place] Creatinine [Mass/Vol] 1.76 mg/dL High 0.73-1.22 [facility] Comment on above: Order Comment: Speci men Type: BLOOD SPECIMENOrdering Facility: [facility] Address: [address] [place] [address] Performed By: #### 2 4323-8 ####[facility] LABCLIA [id number] [place] [address] [place] ESTIMATED GLOMERULAR FILTRATION RATE 49 mL/min/1.73m??? Low >=60 [facility] Comment on above: Order Comment: Rasta men Type: BLOOD SPECIMENOrdering Facility: [facility] Address: [address] [place] [address] Result Comment: Karma mated Glomerular Filtration Rate (eGFR) is calculated using the 2020 CKD-EPI creatinine equation. This equation utilizes serum creatinine, sex, and age as parameters. The creatinine assay has traceable calibration to isotope dilution-mass spectrometry. Refer to KDIGO guidelines for clinical interpretation. In patients with unstable renal function, e.g. those with acute kidney injury, the eGFR may not accurately reflect actual GFR. Performed By: #### 2 4323-8 ####[facility] LABCLIA [id number] [place] [address] [place] Glucose [Mass/Vol] 116 mg/dL High 74-99 [facility] Comment on above: Order Comment: Rasta brent Type: BLOOD SPECIMENOrdering Facility: [facility] Address: [address] [place] [address] Result Comment: The [place] Diabetes [employer] (ADA) provides guidance for cutoff values for fasting glucose and random glucose. The ADA defines fasting as no caloric intake for at least 8 hours. Fasting plasma glucose results between 100 to 125 mg/dL indicate increased risk for diabetes (prediabetes).Fasting plasma glucose results greater than or equal to 126 mg/dL meet the criteria for diagnosis of diabetes. In the absence of unequivocal hyperglycemia, results should be confirmed by repeat testing. In a patient with classic symptoms of hyperglycemia or hyperglycemic crisis, random plasma glucose results greater than or equal to 200 mg/dL meet the criteria for diagnosis of diabetes.Reference: Standards of Medical Care in Diabetes 2016, [place] [employer]. Diabetes Care. 2016.39(Suppl 1). Performed By: #### 2 4323-8 ####[facility] LABCLIA [id number] [place] [address] [place] Potassium [Moles/Vol] 5.4 mmol/L High 3.7-5.1 [facility] Comment on above: Order Comment: Speci men Type: BLOOD SPECIMENOrdering Facility: [facility] Address: [address] [place] [address] Performed By: #### 2 4323-8 ####[facility] LABIA [id number] [place] [address] [place] Protein [Mass/Vol] 7.1 g/dL Normal 6.3-8.0 [facility] Comment on above: Order Comment: Speci men Type: BLOOD SPECIMENOrdering Facility: [facility] Address: [address] [place] [address] Performed By: #### 2 4323-8 ####[facility] LABIA [id number] [place] [address] [place] Sodium [Moles/Vol] 135 mmol/L Low 136-144 [facility] Comment on above: Order Comment: Speci men Type: BLOOD SPECIMENOrdering Facility: [facility] Address: [address] [place] [address] Performed By: #### 2 4323-8 ####[facility] LABIA [id number] [place] [address] [place] Urea nitrogen [Mass/Vol] 29 mg/dL High 9-24 [facility] Comment on above: Order Comment: Speci men Type: BLOOD SPECIMENOrdering Facility: [facility] Address: [address] [place] [address] Performed By: #### 2 4323-8 ####[facility] LABIA [id number] [place] [address] [place] Creatinine Unsp time (U) [Ma ss/Vol]on 04-01-2023 Creatinine (U) [Mass/Vol] 75.3 mg/dL Normal 20.0-300.0 [facility] Comment on above: Order Comment: Speci men Type: URINE SPECIMENOrdering Facility: [facility] Address: [address] [place] [address] Performed By: #### 3 5678-2, 36047-6 ####[facility] LABIA [id number] [place] [address] [place] ECG COMPLETEon 04-01-2023 ECG COMPLETE Normal [facility] HISTORY PHYSICALon HISTORY PHYSICAL [facility] NURSING PROGon 04-01-2023 NURSING PROG Normal [facility] Osmolality SerPlon Osmolality [Osmolality] 292 mosm/kg Normal 275-300 [facility] Comment on above: Order Comment: Speci men Type: BLOOD SPECIMENOrdering Facility: [facility] Address: [address] [place] [address] Performed By: #### 2 692-2 ####[facility] LABIA [id number] [place] [address] [place] Osmolality Uron 04-01-2023 Osmolality (U) [Osmolality] 471 mosm/kg Normal 50-1200 [facility] Comment on above: Order Comment: Speci men Type: URINE SPECIMENOrdering Facility: [facility] Address: [address] [place] [address] Performed By: #### 2 695-5 ####[facility] LABIA [id number] [place] [address] [place] Sodium ?Tm Ur-sCncon 023 Sodium Unsp time (U) [Moles/Vol] 108 mmol/L Normal 14-216 [facility] Comment on above: Order Comment: Speci men Type: URINE SPECIMENOrdering Facility: [facility] Address: [address] [place] [address] Performed By: #### 3 5678-2, 77588-7 ####[facility] LABCLIA [id number] [address] [place] [id number] [place] US KIDNEY/BLADDERon 04-01-20 23 US KIDNEY/BLADDER Normal [facility] CNCOon 03-31-2023 CNCO Clinical report post ed in error Void Comment: Liver Txp Listing Letter Letter Text Normal [facility] CNPNon 03-31-2023 CNPN Normal [facility] BMPon 03-30-2023 Creatinine [Mass/Vol] 2.2 mg/dL High 0.5-1.3 [facility] Comment on above: Performed By: #### 2 774444, 4614268, 64556475, 6641575, 9135201 ####[facility] [address] [place] [address] Urea nitrogen [Mass/Vol] 35 mg/dL High 5-21 [facility] Comment on above: Performed By: #### 2 732409, 8444664, 92223417, 7919554, 9651864 ####[facility] [address] [place] [address] Urea nitrogen/Creatinine [Mass ratio] 16 No Units Normal 10-20 [facility] Comment on above: Performed By: #### 2 264769, 7296714, 99536228, 5499104, 4713043 ####[facility] [address] [place] [address] Anion gap [Moles/Vol] 14 mmol/L Normal 6-16 [facility] Comment on above: Performed By: #### 2 231066, 7599935, 87949217, 4041516, 4088560 ####[facility] [address] [place] [address] Calcium [Mass/Vol] 9.7 mg/dL Normal 8.9-11.1 [facility] Comment on above: Performed By: #### 2 319361, 1004438, 19546782, 6178001, 0188251 ####[facility] [address] [place] [address] Chloride [Moles/Vol] 100 mmol/L Low 101-111 [facility] Comment on above: Performed By: #### 2 491188, 8739065, 44743281, 6640389, 0486627 ####[facility] [address] [place] [address] CO2 [Moles/Vol] 25 mmol/L Normal 21-31 [facility] Comment on above: Performed By: #### 2 346087, 0256917, 71678727, 1982569, 3807082 ####[facility] [address] [place] [address] Glucose [Mass/Vol] 142 mg/dL Normal 55-199 [facility] Comment on above: Result Comment: If t his glucose result represents a fasting glucose, interpretation should refer to the following reference range: 55-99 mg/dL Performed By: #### 2 074638, 5068687, 06797060, 2766997, 8204637 ####[facility] [address] [place] [address] Potassium [Moles/Vol] 5.2 mmol/L Normal 3.5-5.3 [facility] Comment on above: Performed By: #### 2 393310, 4208397, 52160346, 3220321, 8670056 ####[facility] [address] [place] [address] Sodium [Moles/Vol] 134 mmol/L Low 135-145 [facility] Comment on above: Performed By: #### 2 095825, 0239026, 19638476, 3125311, 1619347 ####[facility] [address] [place] [address] CBC w/Indiceson 03-30-2023 Erythrocyte distribution width (RBC) [Ratio] 14.4 % High 10.9-14.2 [facility] Comment on above: Performed By: #### 2 260393, 3440788, 79728382, 2834779, 8215944 ####[address] [place] [address] Hematocrit (Bld) [Volume fraction] 31.0 % Low 37.7-49.0 [facility] Comment on above: Performed By: #### 2 173575, 6716533, 08709556, 0426776, 2097825 ####[address] [address] Hemoglobin (Bld) [Mass/Vol] 10.8 g/dL Low 13.5-17.5 [facility] Comment on above: Performed By: #### 2 607092, 3487062, 59187112, 0976170, 5311839 ####[address] [address] MCH (RBC) [Entitic mass] 35.1 pg High 27.0-34.0 [facility] Comment on above: Performed By: #### 2 245014, 2816684, 02254944, 7575513, 2551607 ####[address] [address] MCHC (RBC) [Mass/Vol] 34.7 g/dL Normal 31.4-36.0 [facility] Comment on above: Performed By: #### 2 615845, 5271455, 17065458, 7266086, 2239019 ####[address] [address] MCV (RBC) [Entitic vol] 101.1 fL High 80.0-100.0 [facility] Comment on above: Performed By: #### 2 161766, 8430726, 49063024, 6487265, 0676313 ####[address] [address] Platelet mean volume (Bld) [Entitic vol] 7.5 fL Normal 6.4-10.8 [facility] Comment on above: Performed By: #### 2 410412, 0466217, 62074732, 3977882, 7935831 ####[address] [place] [address] Platelets (Bld) [#/Vol] 75.0 E9/L Low 150.0-500.0 [facility] Comment on above: Result Comment: Plat elet count verified using smear estimate 03/30/2023 17:26:53 EDT Performed By: #### 2 989030, 9264824, 88379264, 8159779, 0895995 ####[facility] [address] [place] [address] RBC (Bld) [#/Vol] 3.1 E12/L Low 4.3-5.9 [facility] Comment on above: Performed By: #### 2 344576, 4711135, 15612721, 8093405, 4503029 ####[facility] [address] [place] [address] WBC corrected for nucl RBC Auto (Bld) [#/Vol] 5.6 E9/L Normal 4.0-11.0 [facility] Comment on above: Performed By: #### 2 984499, 4579965, 16815649, 9870934, 5137876 ####[facility] [address] [place] [address] CHEMISTRYOrdered By: SYSTEM SYSTEM on 03-30-2023 Albumin [Mass/Vol] 3.8 g/dL Normal 3.3 - 5.0 gm/dL [facility] Albumin/Globulin [Mass ratio] 1.1 {ratio} Normal 1.1 - 2.2 [facility] ALP [Catalytic activity/Vol] 80 [iU]/d Normal 21 - 98 Int._Unit/L [facility] ALT No additional P-5'-P [Catalytic activity/Vol] 20 [iU]/d Normal 6 - 46 Int._Unit/L [facility] Anion gap [Moles/Vol] 14 mmol/L Normal 6 - 16 mEq/L [facility] AST [Catalytic activity/Vol] 48 [iU]/d High 5 - 43 Int._Unit/L [facility] Bilirubin [Mass/Vol] 3.2 mg/dL High 0.0 - 1 .1 mg/dL [facility] Bilirubin.direct [Mass/Vol] 0.9 mg/dL High 0.1 - 0.4 mg/dL [facility] Bilirubin.indirect [Mass or moles/Vol] 2.3 mg/dL High 0.1 - 0.9 mg/dL [facility] Calcium [Mass/Vol] 9.7 mg/dL Normal 8.9 - 11. 1 mg/dL [facility] Chloride [Moles/Vol] 100 mmol/L Low 101 - 1 11 mmol/L [facility] CO2 [Moles/Vol] 25 mmol/L Normal 21 - 31 mmol/L [facility] Creatinine [Mass/Vol] 2.2 mg/dL High 0.5 - 1.3 mg/dL [facility] GFR/1.73 sq M.predicted among non-blacks MDRD (S/P/Bld) [Vol rate/Area] 38 mL/min/1.73 m2 Low >=59mL/min/1 .73 m2 [facility] S Globulin (S) [Mass/Vol] 3.5 g/dL Normal 1.4 - 4.0 gm/dL [facility] Glucose [Mass/Vol] 142 mg/dL Normal 55 - 199 mg/dL [facility] Potassium [Moles/Vol] 5.2 mmol/L Normal 3.5 - 5.3 mmol/L [facility] Protein [Mass/Vol] 7.3 g/dL Normal 6.0 - 7.8 gm/dL [facility] Sodium [Moles/Vol] 134 mmol/L Low 135 - 145 mmol/L [facility] Urea nitrogen [Mass/Vol] 35 mg/dL High 5 - 21 mg/dL [facility] Urea nitrogen/Creatinine [Mass ratio] 16 mg/mg Normal 10 - 20 [facility] COAGULATIONOrdered By: Erendira Wolfe on 03-30-2023 INR Coag (PPP) [Relative time] 1.5 {INR} Invalid Interpretation Code [facility] Auto Coag PT Coag (PPP) [Time] 16.9 s High 9.4 - 1 2.5 second(s) [facility] Auto Coag HEMATOLOGYOrdered By: Elise Kumar on 03-30-2023 Erythrocyte distribution width (RBC) [Ratio] 14.4 % High 10.9 - 14.2 % [facility] HemeAutoSS Hematocrit (Bld) [Volume fraction] 31.0 % Low 37.7 - 49.0 % [facility] Hemoglobin (Bld) [Mass/Vol] 10.8 g/dL Low 13.5 - 17.5 gm/dL [facility] MCH (RBC) [Entitic mass] 35.1 pg High 27.0 - 34.0 pg [facility] MCHC (RBC) [Mass/Vol] 34.7 g/dL Normal 31.4 - 36.0 gm/dL [facility] MCV (RBC) [Entitic vol] 101.1 fL High 80.0 - 100.0 fL [facility] Platelet mean volume (Bld) [Entitic vol] 7.5 fL Normal 6.4 - 10.8 fL [facility] Platelets (Bld) [#/Vol] 75.0 E9/L Low 150.0 - 500.0 E9/L [facility] Comment on above: Result Comment: Plat elet count verified using smear estimate 03/30/2023 17:26:53 EDT RBC (Bld) [#/Vol] 3.1 E12/L Low 4.3 - 5.9 E12/L [facility] WBC corrected for nucl RBC Auto (Bld) [#/Vol] 5.6 E9/L Normal 4.0 - 11.0 E9/L [facility] HemeAutoSS Hep Func Panelon 03-30-2023 Albumin [Mass/Vol] 3.8 g/dL Normal 3.3-5.0 [facility] Comment on above: Performed By: #### 2 071714, 7345877, 36080294, 7250290, 6634713 ####[facility] [address] [place] [address] Albumin/Globulin (S) [Mass conc ratio] 1.1 Normal 1.1-2.2 [facility] Comment on above: Performed By: #### 2 562611, 3389910, 64591392, 8589800, 6821126 ####[facility] [address] [place] [address] ALP [Catalytic activity/Vol] 80 Int._Unit/L Normal 21-98 [facility] Comment on above: Performed By: #### 2 330088, 1899909, 80801341, 4942234, 5489164 ####[facility] [address] [place] [address] ALT No additional P-5'-P [Catalytic activity/Vol] 20 Int._Unit/L Normal 6-46 [facility] Comment on above: Performed By: #### 2 763225, 8078629, 93840024, 6016495, 3732852 ####[facility] [address] [place] [address] AST [Catalytic activity/Vol] 48 Int._Unit/L High 5-43 [facility] Comment on above: Performed By: #### 2 328921, 7917206, 04003818, 7323276, 9010623 ####[facility] [address] [place] [address] Bilirubin [Mass/Vol] 3.2 mg/dL High 0.0-1.1 [facility] Comment on above: Performed By: #### 2 442170, 2016154, 86822961, 6700332, 7997948 ####[facility] [address] [place] [address] Bilirubin.direct [Mass/Vol] 0.9 mg/dL High 0.1-0.4 [facility] Comment on above: Performed By: #### 2 872109, 3147086, 76029805, 8435821, 5405283 ####[facility] [address] [place] [address] Bilirubin.indirect [Mass or moles/Vol] 2.3 mg/dL High 0.1-0.9 [facility] Comment on above: Performed By: #### 2 828007, 8495418, 13824101, 9389919, 3191386 ####[facility] [address] [place] [address] Globulin (S) [Mass/Vol] 3.5 g/dL Normal 1.4-4.0 [facility] Comment on above: Performed By: #### 2 541507, 2143969, 71461717, 2021092, 2637235 ####[facility] [address] [place] [address] Protein [Mass/Vol] 7.3 g/dL Normal 6.0-7.8 [facility] Comment on above: Performed By: #### 2 150633, 2857190, 75442579, 5513777, 8229679 ####[facility] [address] [place] [address] Lab Miscellaneous-LCon 03-30 Test Code 799912 Invalid Interpretation Code [facility] Comment on above: Performed By: #### 1 [id number] ####[facility] [address] [place] [address] Test Name PEth Invalid Interpretation Code [facility] Comment on above: Performed By: #### 1 [id number] ####[facility] [address] [place] [address] PTon 03-30-2023 INR Coag (PPP) [Relative time] 1.5 {INR} Invalid Interpretation Code [facility] Comment on above: Result Comment: INR results are specifically intended to assess patients stabilized on long-term Anticoagulation therapy suggested INR?s ?Less Intensive Anticoagulation? 2.0 ? 3.0 Conventional Range 3.0 ? 4.5 Performed By: #### 2 049823, 3762002, 07006752, 0337694, 2161941 ####[facility] [address] [place] [address] PT Coag (PPP) [Time] 16.9 second(s) High 9.4-12.5 [facility] Comment on above: Result Comment: 15 d ays - 4 weeks 1 - 5 months 6 -11 months 1- 5 years 6-10 years 11 -17 years Mean: 11.2 (9.5-12.6) Mean: 11.0 (9.7-12.8) Mean: 11.0 (9.8-13.0) Mean: 11.3 (9.9-13.4) Mean: 11.7 (10.0-14.6) Mean: 11.8 (10.0 - 14.1) Pediatric Reference ranges were obtained from a study by adarsh Saul al. prepared from 1437 samples obtained at 7 different centers using the same coagulation reagent and instrumentation as [facility]. Currently there are no coagulation studies available worldwide for children to 14 days, and no normal ranges. Performed By: #### 2 357247, 2588439, 79532744, 6686761, 2701608 ####[facility] [address] [place] [address] Reference Laboratory Testing Ordered By: Wanda Dee on 03-30-2023 Test Code 843729 Invalid Interpretation Code [facility] SendOuts Test Name PEth Invalid Interpretation Code [facility] 03-30-2023 GFR/1.73 sq M.predicted among non-blacks MDRD (S/P/Bld) [Vol rate/Area] 38 mL/min/1.73 m2 Low >=59 [facility] Comment on above: Order Comment: Order added by Discern Expert. Result Comment: Marketing Production Manager nishi kidney disease could be indicated at eGFR's of less than 60 mL/min/1.73m2. Kidney failure is indicated at less than 15 mL/min/1.73m2. Performed By: #### 2 967270, 2111852, 06166068, 0588830, 2450868 ####[facility] [address] [place] [address] CNPNon 03-26-2023 CNPN Normal [facility] Lab Miscellaneous-LCon 03-17 Lab Miscellaneous COMMENT Invalid Interpretation Code [facility] Comment on above: Result Comment: Test Ordered: [id number] Phosphatidylethanol (PEth) PHOSPHATIDYLETHANOL Negative MX Phosphatidylethanol (PEth) Negative ng/mL MX Analyzed compound: PEth 16:0/18:1. 1-seixbibtq-8-chstqv-iu-updwmjy-3-phosphoethanol. Analysis performed by Liquid Chromatography with Tandem Mass Spectrometry (LC/MS/MS). Detection limit: 20 ng/mL PEth levels in excess of 20 ng/mL are considered evidence of moderate to heavy ethanol consumption. However, the Center for Substance Abuse Treatment (CSAT) advises caution in interpretation and use of biomarkers alone to assess alcohol use. Results should be interpreted in the context of all available clinical and behavioral information. Reference: Substance Abuse and Mental Health Services Administration (2012). The Role of Biomarkers in the Treatment of Alcohol Use Disorders , 2012 Revision. Advisory, Volume 11, Issue 2. This test was developed and its performance characteristics determined by [employer]. It has not been cleared or approved by the Food and Drug Administration. Performed at: [address] [id number] PhD Arcelia Banegas Performed By: #### 1 [id number] ####[facility] [address] [place] [address] CNPNon 03-13-2023 CNPN Normal [facility] 03-12-2023 Anion gap [Moles/Vol] 12 mmol/L Normal 6-16 [facility] Comment on above: Performed By: #### 2 552992, 4821608, 8590745, 8808660, 54456669 ####[facility] [address] [place] [address] Calcium [Mass/Vol] 10.1 mg/dL Normal 8.9-11.1 [facility] Comment on above: Performed By: #### 2 057580, 1997230, 1256093, 1270864, 20038277 ####[facility] [address] [place] [address] Chloride [Moles/Vol] 100 mmol/L Low 101-111 [facility] Comment on above: Performed By: #### 2 046324, 6306879, 0300226, 5496210, 49773457 ####[facility] [address] [place] [address] CO2 [Moles/Vol] 26 mmol/L Normal 21-31 [facility] Comment on above: Performed By: #### 2 100233, 6405602, 3898157, 2431331, 22975606 ####[facility] [address] [place] [address] Creatinine [Mass/Vol] 1.1 mg/dL Normal 0.5-1.3 [facility] Comment on above: Performed By: #### 2 784359, 9835308, 3992541, 1868638, 69887971 ####[facility] [address] [place] [address] Glucose [Mass/Vol] 60 mg/dL Normal 55-199 [facility] Comment on above: Result Comment: If t his glucose result represents a fasting glucose, interpretation should refer to the following reference range: 55-99 mg/dL Performed By: #### 2 430576, 0199888, 3245188, 8652852, 67817024 ####[facility] [address] [place] [address] Potassium [Moles/Vol] 4.1 mmol/L Normal 3.5-5.3 [facility] Comment on above: Performed By: #### 2 658490, 3940815, 6329518, 0211216, 23028608 ####[facility] [address] [place] [address] Sodium [Moles/Vol] 134 mmol/L Low 135-145 [facility] Comment on above: Performed By: #### 2 683619, 2492182, 6074273, 3356607, 54436802 ####[facility] [address] [place] [address] Urea nitrogen [Mass/Vol] 15 mg/dL Normal 5-21 [facility] Comment on above: Performed By: #### 2 911922, 9922028, 9941739, 8185747, 52616933 ####[facility] [address] [place] [address] Urea nitrogen/Creatinine [Mass ratio] 14 No Units Normal 10-20 [facility] Comment on above: Performed By: #### 2 990917, 6171647, 5267073, 5194606, 92851952 ####[facility] [address] [place] [address] CBC w/Indiceson 03-12-2023 Erythrocyte distribution width (RBC) [Ratio] 14.7 % High 10.9-14.2 [facility] Comment on above: Performed By: #### 2 199104, 6750587, 2443116, 2355667, 07693435 ####[address] [place] [address] Hematocrit (Bld) [Volume fraction] 30.8 % Low 37.7-49.0 [facility] Comment on above: Performed By: #### 2 404170, 5690928, 1235433, 8597063, 66388537 ####[address] [place] [address] Hemoglobin (Bld) [Mass/Vol] 10.8 g/dL Low 13.5-17.5 [facility] Comment on above: Performed By: #### 2 989564, 9493865, 5743428, 5131801, 38325200 ####[address] [address] MCH (RBC) [Entitic mass] 35.6 pg High 27.0-34.0 [facility] Comment on above: Performed By: #### 2 368340, 4544267, 9298641, 4124534, 10699459 ####[address] [address] MCHC (RBC) [Mass/Vol] 34.9 g/dL Normal 31.4-36.0 [facility] Comment on above: Performed By: #### 2 245038, 8864758, 9492362, 8357926, 82882234 ####[address] [place] [address] MCV (RBC) [Entitic vol] 101.9 fL High 80.0-100.0 [facility] Comment on above: Performed By: #### 2 482645, 4637750, 9400797, 4772815, 79217752 ####[address] [place] [address] Platelet mean volume (Bld) [Entitic vol] 7.8 fL Normal 6.4-10.8 [facility] Comment on above: Performed By: #### 2 412428, 9060649, 7378897, 7103334, 96304300 ####[facility] [address] [place] [address] Platelets (Bld) [#/Vol] 92.0 E9/L Low 150.0-500.0 [facility] Comment on above: Performed By: #### 2 454501, 0615877, 3565567, 5100925, 01401449 ####[address] [address] RBC (Bld) [#/Vol] 3.0 E12/L Low 4.3-5.9 [facility] Comment on above: Performed By: #### 2 549603, 4646646, 8135511, 8678389, 23405307 ####[facility] [address] [place] [address] WBC corrected for nucl RBC Auto (Bld) [#/Vol] 6.0 E9/L Normal 4.0-11.0 [facility] Comment on above: Performed By: #### 2 839651, 2381419, 2504149, 8162845, 36652722 ####[address] [address] CHEMISTRYOrdered By: SYSTEM SYSTEM on 03-12-2023 Albumin [Mass/Vol] 4.1 g/dL Normal 3.3 - 5.0 gm/dL [facility] Albumin/Globulin [Mass ratio] 1.1 {ratio} Normal 1.1 - 2.2 [facility] ALP [Catalytic activity/Vol] 100 [iU]/d High 21 - 98 Int._Unit/L [facility] ALT No additional P-5'-P [Catalytic activity/Vol] 21 [iU]/d Normal 6 - 46 Int._Unit/L [facility] Anion gap [Moles/Vol] 12 mmol/L Normal 6 - 16 mEq/L [facility] AST [Catalytic activity/Vol] 50 [iU]/d High 5 - 43 Int._Unit/L [facility] Bilirubin [Mass/Vol] 2.9 mg/dL High 0.0 - 1 .1 mg/dL [facility] Bilirubin.direct [Mass/Vol] 0.8 mg/dL High 0.1 - 0.4 mg/dL [facility] Bilirubin.indirect [Mass or moles/Vol] 2.1 mg/dL High 0.1 - 0.9 mg/dL [facility] Calcium [Mass/Vol] 10.1 mg/dL Normal 8.9 - 11. 1 mg/dL [facility] Chloride [Moles/Vol] 100 mmol/L Low 101 - 1 11 mmol/L [facility] CO2 [Moles/Vol] 26 mmol/L Normal 21 - 31 mmol/L [facility] Creatinine [Mass/Vol] 1.1 mg/dL Normal 0.5 - 1.3 mg/dL [facility] GFR/1.73 sq M.predicted among non-blacks MDRD (S/P/Bld) [Vol rate/Area] 86 mL/min/1.73 m2 Normal >=59mL/min/1 .73 m2 [facility] S Globulin (S) [Mass/Vol] 3.6 g/dL Normal 1.4 - 4.0 gm/dL [facility] Glucose [Mass/Vol] 60 mg/dL Normal 55 - 199 mg/dL [facility] Potassium [Moles/Vol] 4.1 mmol/L Normal 3.5 - 5.3 mmol/L [facility] Protein [Mass/Vol] 7.7 g/dL Normal 6.0 - 7.8 gm/dL [facility] Sodium [Moles/Vol] 134 mmol/L Low 135 - 145 mmol/L [facility] Urea nitrogen [Mass/Vol] 15 mg/dL Normal 5 - 21 mg/dL [facility] Urea nitrogen/Creatinine [Mass ratio] 14 mg/mg Normal 10 - 20 [facility] COAGULATIONOrdered By: Roxy Kumar on 03-12-2023 INR Coag (PPP) [Relative time] 1.5 {INR} Invalid Interpretation Code [facility] Auto Coag PT Coag (PPP) [Time] 17.4 s High 9.4 - 1 2.5 second(s) [facility] Auto Coag Consent for Treatmenton 02-22 Consent for Treatment [id number]#[id number]:[address] [facility] HEMATOLOGYOrdered By: Renae Martínez on 03-12-2023 Erythrocyte distribution width (RBC) [Ratio] 14.7 % High 10.9 - 14.2 % [facility] HemeAutoSS Hematocrit (Bld) [Volume fraction] 30.8 % Low 37.7 - 49.0 % [facility] HemeAutoSS Hemoglobin (Bld) [Mass/Vol] 10.8 g/dL Low 13.5 - 17.5 gm/dL [facility] HemeAutoSS MCH (RBC) [Entitic mass] 35.6 pg High 27.0 - 34.0 pg [facility] HemeAutoSS MCHC (RBC) [Mass/Vol] 34.9 g/dL Normal 31.4 - 36.0 gm/dL [facility] HemeAutoSS MCV (RBC) [Entitic vol] 101.9 fL High 80.0 - 100.0 fL [facility] HemeAutoSS Platelet mean volume (Bld) [Entitic vol] 7.8 fL Normal 6.4 - 10.8 fL [facility] HemeAutoSS Platelets (Bld) [#/Vol] 92.0 E9/L Low 150.0 - 500.0 E9/L [facility] HemeAutoSS RBC (Bld) [#/Vol] 3.0 E12/L Low 4.3 - 5.9 E12/L [facility] HemeAutoSS WBC corrected for nucl RBC Auto (Bld) [#/Vol] 6.0 E9/L Normal 4.0 - 11.0 E9/L [facility] HemeAutoSS Hep Func Panelon 03-12-2023 Albumin [Mass/Vol] 4.1 g/dL Normal 3.3-5.0 [facility] Comment on above: Performed By: #### 2 955348, 1171796, 5342075, 7008198, 94899974 ####[facility] [address] [place] [address] Albumin/Globulin (S) [Mass conc ratio] 1.1 Normal 1.1-2.2 [facility] Comment on above: Performed By: #### 2 117744, 3614564, 0762113, 4735003, 07885855 ####[facility] [address] [place] [address] ALP [Catalytic activity/Vol] 100 Int._Unit/L High 21-98 [facility] Comment on above: Performed By: #### 2 714472, 1452221, 9829344, 2852696, 80864300 ####[facility] [address] [place] [address] ALT No additional P-5'-P [Catalytic activity/Vol] 21 Int._Unit/L Normal 6-46 [facility] Comment on above: Performed By: #### 2 746860, 7104895, 7427959, 8339606, 14654785 ####[facility] [address] [place] [address] AST [Catalytic activity/Vol] 50 Int._Unit/L High 5-43 [facility] Comment on above: Performed By: #### 2 872202, 0189398, 3959218, 9062431, 34950116 ####[facility] [address] [place] [address] Bilirubin [Mass/Vol] 2.9 mg/dL High 0.0-1.1 [facility] Comment on above: Performed By: #### 2 770145, 9473692, 4944315, 9487626, 05104906 ####[facility] [address] [place] [address] Bilirubin.direct [Mass/Vol] 0.8 mg/dL High 0.1-0.4 [facility] Comment on above: Performed By: #### 2 687023, 5625988, 6766974, 1220903, 26517800 ####[facility] [address] [place] [address] Bilirubin.indirect [Mass or moles/Vol] 2.1 mg/dL High 0.1-0.9 [facility] Comment on above: Performed By: #### 2 009661, 0800416, 2317958, 2411169, 42223253 ####[facility] [address] [place] [address] Globulin (S) [Mass/Vol] 3.6 g/dL Normal 1.4-4.0 [facility] Comment on above: Performed By: #### 2 533126, 9985273, 1204609, 1572558, 92394221 ####[facility] [address] [place] [address] Protein [Mass/Vol] 7.7 g/dL Normal 6.0-7.8 [facility] Comment on above: Performed By: #### 2 157099, 9763332, 7375359, 6730966, 87980112 ####[facility] [address] [place] [address] Lab Miscellaneous-LCon 03-12 Test Code [id number] Invalid Interpretation Code [facility] Comment on above: Performed By: #### 1 [id number] ####[facility] [address] [place] [address] Test Name PET Invalid Interpretation Code [facility] Comment on above: Performed By: #### 1 [id number] ####[facility] [address] [place] [address] PTon 03-12-2023 INR Coag (PPP) [Relative time] 1.5 {INR} Invalid Interpretation Code [facility] Comment on above: Result Comment: INR results are specifically intended to assess patients stabilized on long-term Anticoagulation therapy suggested INR?s ?Less Intensive Anticoagulation? 2.0 ? 3.0 Conventional Range 3.0 ? 4.5 Performed By: #### 2 719170, 8723345, 8725288, 8976761, 74893690 ####[facility] [address] [place] [address] PT Coag (PPP) [Time] 17.4 second(s) High 9.4-12.5 [facility] Comment on above: Result Comment: 15 d ays - 4 weeks 1 - 5 months 6 -11 months 1- 5 years 6-10 years 11 -17 years Mean: 11.2 (9.5-12.6) Mean: 11.0 (9.7-12.8) Mean: 11.0 (9.8-13.0) Mean: 11.3 (9.9-13.4) Mean: 11.7 (10.0-14.6) Mean: 11.8 (10.0 - 14.1) Pediatric Reference ranges were obtained from a study by Jairon Kirk et al. prepared from 1437 samples obtained at 7 different centers using the same coagulation reagent and instrumentation as [facility]. Currently there are no coagulation studies available worldwide for children to 14 days, and no normal ranges. Performed By: #### 2 104281, 4870822, 5762833, 1739308, 50889923 ####[facility] [address] [place] [address] Physician Orderon 03-12-2023 Physician Order [id number]#[id number]:[address] [facility] Reference Laboratory Testing Ordered By: Mariza Rivas on 03-12-2023 Test Code 241729 Invalid Interpretation Code [facility] SendOutsSS Test Name PET Invalid Interpretation Code [facility] SendOutsSS eGFRon 03-12-2023 GFR/1.73 sq M.predicted among non-blacks MDRD (S/P/Bld) [Vol rate/Area] 86 mL/min/1.73 m2 Normal >=59 [facility] Comment on above: Order Comment: Order added by Discern Expert. Result Comment: Marketing Production Manager nishi kidney disease could be indicated at eGFR's of less than 60 mL/min/1.73m2. Kidney failure is indicated at less than 15 mL/min/1.73m2. Performed By: #### 2 851355, 7900646, 6877961, 4726538, 11455581 ####[facility] [address] [place] [address] AFP SerPl-mCncon 01-20-2023 AFP [Mass/Vol] 9.2 ng/mL Normal <11.0 [facility] Comment on above: Order Comment: Speci men Type: BLOOD SPECIMENOrdering Facility: [facility] Address: [address] [id number] Result Comment: The test is typically used as an aid in managing hepatocellular carcinoma and non-seminomatous testicular cancer when used in conjunction with physical examination, histology, and other clinical evaluation procedures. Normal levels of AFP do not entirely exclude the possibility of the above-mentioned conditions, other malignancies, and chronic liver diseases. The normal range has not been established for newborns.The Alpha-Fetoprotein test was performed using the Siemens NutraMedaur XP chemiluminometric immunoassay method. Results obtained with different assay methods or kits cannot be used interchangeably. Performed By: #### 1 834-1 ####[facility] LABIA [id number] [place] [address] [place] Basic metabolic 2000 panelon 01-20-2023 Anion gap [Moles/Vol] 13 mmol/L Normal 9-18 [facility] Comment on above: Order Comment: Speci men Type: BLOOD SPECIMENOrdering Facility: [facility] Address: [address] [place], [place] [id number] Performed By: #### 2 4321-2, 77185-7 ####[facility] LABIA [id number] [place] [address] [place] Calcium [Mass/Vol] 9.5 mg/dL Normal 8.5-10.2 [facility] Comment on above: Order Comment: Speci men Type: BLOOD SPECIMENOrdering Facility: [facility] Address: [address] [place] [address] Performed By: #### 2 4321-2, 27302-3 ####[facility] LABIA [id number] [place] [address] [place] Chloride [Moles/Vol] 97 mmol/L Normal 97-105 [facility] Comment on above: Order Comment: Speci men Type: BLOOD SPECIMENOrdering Facility: [facility] Address: [address] [address] Performed By: #### 2 4321-2, 35744-9 ####[facility] LABIA [id number] [address] CO2 [Moles/Vol] 23 mmol/L Normal 22-30 [facility] Comment on above: Order Comment: Speci men Type: BLOOD SPECIMENOrdering Facility: [facility] Address: [address] [place] [address] Performed By: #### 2 432-2, 24401-5 ####[facility] LABIA [id number] [address] Creatinine [Mass/Vol] 1.15 mg/dL Normal 0.73-1.22 [facility] Comment on above: Order Comment: Speci men Type: BLOOD SPECIMENOrdering Facility: [facility] Address: [address] [place] [address] Performed By: #### 2 4320-2, 84942-1 ####[facility]IA [id number] [address] ESTIMATED GLOMERULAR FILTRATION RATE 82 mL/min/1.73m??? Normal >=60 [facility] Comment on above: Order Comment: Speci men Type: BLOOD SPECIMENOrdering Facility: [facility] Address: [address] [place] [address] Result Comment: Karma mated Glomerular Filtration Rate (eGFR) is calculated using the 2020 CKD-EPI creatinine equation. This equation utilizes serum creatinine, sex, and age as parameters. The creatinine assay has traceable calibration to isotope dilution-mass spectrometry. Refer to KDIGO guidelines for clinical interpretation. In patients with unstable renal function, e.g. those with acute kidney injury, the eGFR may not accurately reflect actual GFR. Performed By: #### 2 4321-2, 69858-8 ####[facility] LABCLIA [id number] [id number], [place] [address] [place] Glucose [Mass/Vol] 100 mg/dL High 74-99 [facility] Comment on above: Order Comment: Speci men Type: BLOOD SPECIMENOrdering Facility: [facility] Address: [address] [place] [address] Result Comment: The [place] Diabetes Association (ADA) provides guidance for cutoff values for fasting glucose and random glucose. The ADA defines fasting as no caloric intake for at least 8 hours. Fasting plasma glucose results between 100 to 125 mg/dL indicate increased risk for diabetes (prediabetes).Fasting plasma glucose results greater than or equal to 126 mg/dL meet the criteria for diagnosis of diabetes. In the absence of unequivocal hyperglycemia, results should be confirmed by repeat testing. In a patient with classic symptoms of hyperglycemia or hyperglycemic crisis, random plasma glucose results greater than or equal to 200 mg/dL meet the criteria for diagnosis of diabetes.Reference: Standards of Medical Care in Diabetes 2016, [place] Diabetes Association. Diabetes Care. 2016.39(Suppl 1). Performed By: #### 2 432-, 29728-4 ####[facility] LABCLIA [id number] [place] [address] [place] Potassium [Moles/Vol] 4.7 mmol/L Normal 3.7-5.1 [facility] Comment on above: Order Comment: Speci men Type: BLOOD SPECIMENOrdering Facility: [facility] Address: [address] [place] [address] Performed By: #### 2 43208-25, 19722-9 ####[facility] LABCLIA [id number] [place] [address] [place] Sodium [Moles/Vol] 133 mmol/L Low 136-144 [facility] Comment on above: Order Comment: Speci men Type: BLOOD SPECIMENOrdering Facility: [facility] Address: [address] [place] [address] Performed By: #### 2 43208-25, 89084-6 ####[facility] LABCLIA [id number] [place] [address] [place] Urea nitrogen [Mass/Vol] 16 mg/dL Normal 9-24 [facility] Comment on above: Order Comment: Speci men Type: BLOOD SPECIMENOrdering Facility: [facility] Address: [address] [place] [address] Performed By: #### 2 4321-2, 29682-8 ####[facility] LABCLIA [id number] [place] [address] [place] CBC W Auto Differential pane l (Bld)on 01-20-2023 Basophils (Bld) [#/Vol] 0.07 10*3/uL Normal <0.11 [facility] Comment on above: Order Comment: Speci men Type: BLOOD SPECIMENOrdering Facility: [facility] Address: [address] [place] [address] Performed By: #### 5 7021-8 ####[facility] LABCLIA [id number] [place] [address] [place] Basophils/100 WBC (Bld) 1.0 % Normal [facility] Comment on above: Order Comment: Speci men Type: BLOOD SPECIMENOrdering Facility: [facility] Address: [address] [place] [address] Performed By: #### 5 7021-8 ####[facility] LABCLIA [id number] [address] [place] Differential cell count method Nom (Bld) Auto Normal [facility] Comment on above: Order Comment: Speci men Type: BLOOD SPECIMENOrdering Facility: [facility] Address: [address] [place] [address] Performed By: #### 5 7021-8 ####[facility] LABCLIA [id number] [place] [address] [place] Eosinophils (Bld) [#/Vol] 0.28 10*3/uL Normal <0.46 [facility] Comment on above: Order Comment: Speci men Type: BLOOD SPECIMENOrdering Facility: [facility] Address: [address] [address] Performed By: #### 5 7021-8 ####[facility] LABCLIA [id number] [place] [address] [place] Eosinophils/100 WBC (Bld) 4.1 % Normal [facility] Comment on above: Order Comment: Speci men Type: BLOOD SPECIMENOrdering Facility: [facility] Address: [address] Performed By: #### 5 7021-8 ####[facility] LABCLIA [id number] [place] [address] [place] Erythrocyte distribution width (RBC) [Ratio] 13.6 % Normal 11.5-15.0 [facility] Comment on above: Order Comment: Speci men Type: BLOOD SPECIMENOrdering Facility: [facility] Address: [address] Performed By: #### 5 7021-8 ####[facility] LABCLIA [id number] [place] [address] [place] Hematocrit (Bld) [Volume fraction] 31.6 % Low 39.0-51.0 [facility] Comment on above: Order Comment: Speci men Type: BLOOD SPECIMENOrdering Facility: [facility] Address: [address] [place], [place] [address] Performed By: #### 5 7021-8 ####[facility] LABCLIA [id number] [place] [address] [place] Hemoglobin (Bld) [Mass/Vol] 11.1 g/dL Low 13.0-17.0 [facility] Comment on above: Order Comment: Speci men Type: BLOOD SPECIMENOrdering Facility: [facility] Address: [address] Performed By: #### 5 7021-8 ####[facility] LABCLIA [id number] [place] [address] [place] Immature granulocytes (Bld) [#/Vol] 10*3/uL Normal <0.10 [facility] Comment on above: Order Comment: Speci men Type: BLOOD SPECIMENOrdering Facility: [facility] Address: [address] [place] [address] Performed By: #### 5 7021-8 ####[facility] LABCLIA [id number] [place] [address] [place] Immature granulocytes/100 WBC (Bld) 0.3 % Normal [facility] Comment on above: Order Comment: Speci men Type: BLOOD SPECIMENOrdering Facility: [facility] Address: [address] [place] [address] Performed By: #### 5 7021-8 ####[facility] LABIA [id number] [place] [address] [place] Lymphocytes (Bld) [#/Vol] 1.70 10*3/uL Normal 1.00-4.00 [facility] Comment on above: Order Comment: Speci men Type: BLOOD SPECIMENOrdering Facility: [facility] Address: [address] [place], [place] [address] Performed By: #### 5 7021-8 ####[facility] LABCLIA [id number] [place] [address] [place] Lymphocytes/100 WBC (Bld) 25.1 % Normal [facility] Comment on above: Order Comment: Speci men Type: BLOOD SPECIMENOrdering Facility: [facility] Address: [address] [place], [place] [address] Performed By: #### 5 7021-8 ####[facility] LABCLIA [id number] [place] [address] [place] MCH (RBC) [Entitic mass] 36.3 pg High 26.0-34.0 [facility] Comment on above: Order Comment: Speci men Type: BLOOD SPECIMENOrdering Facility: [facility] Address: [address] Performed By: #### 5 7021-8 ####[facility] LABIA [id number] [place] [address] [place] MCHC (RBC) [Mass/Vol] 35.1 g/dL Normal 30.5-36.0 [facility] Comment on above: Order Comment: Speci men Type: BLOOD SPECIMENOrdering Facility: [facility] Address: [address] Performed By: #### 5 7021-8 ####[facility] LABCLIA [id number] [place] [address] [place] MCV (RBC) [Entitic vol] 103.3 fL High 80.0-100.0 [facility] Comment on above: Order Comment: Speci men Type: BLOOD SPECIMENOrdering Facility: [facility] Address: [address] Performed By: #### 5 7021-8 ####[facility] LABIA [id number] [place] [address] [place] Monocytes (Bld) [#/Vol] 0.61 10*3/uL Normal <0.87 [facility] Comment on above: Order Comment: Speci men Type: BLOOD SPECIMENOrdering Facility: [facility] Address: [address] Performed By: #### 5 7021-8 ####[facility] LABIA [id number] [address] [place] Monocytes/100 WBC (Bld) 9.0 % Normal [facility] Comment on above: Order Comment: Speci men Type: BLOOD SPECIMENOrdering Facility: [facility] Address: [address] Performed By: #### 5 7021-8 ####[facility] LABCLIA [id number] [place] [address] [place] Neutrophils (Bld) [#/Vol] 4.09 10*3/uL Normal 1.45-7.50 [facility] Comment on above: Order Comment: Speci men Type: BLOOD SPECIMENOrdering Facility: [facility] Address: [address] [place] [address] Performed By: #### 5 7021-8 ####[facility] LABCLIA [id number] [place] [address] [place] Neutrophils/100 WBC (Bld) 60.5 % Normal [facility] Comment on above: Order Comment: Speci men Type: BLOOD SPECIMENOrdering Facility: [facility] Address: [address] [place] [address] Performed By: #### 5 7021-8 ####[facility] LABIA [id number] [place] [address] [place] Nucleated RBC (Bld) [#/Vol] 10*3/uL Normal <0.01 [facility] Comment on above: Order Comment: Speci men Type: BLOOD SPECIMENOrdering Facility: [facility] Address: [address] [place] [address] Performed By: #### 5 7021-8 ####[facility] LABCLIA [id number] [place] [address] [place] Nucleated RBC/100 WBC (Bld) [Ratio] 0.0 /100 WBC Normal [facility] Comment on above: Order Comment: Speci men Type: BLOOD SPECIMENOrdering Facility: [facility] Address: [address] [place], [place] [address] Performed By: #### 5 7021-8 ####[facility] LABIA [id number] [place] [address] [place] Platelet mean volume (Bld) [Entitic vol] 9.6 fL Normal 9.0-12.7 [facility] Comment on above: Order Comment: Speci men Type: BLOOD SPECIMENOrdering Facility: [facility] Address: [address] [place] [address] Performed By: #### 5 7021-8 ####[facility] LABCLIA [id number] [place] [address] [place] Platelets (Bld) [#/Vol] 109 10*3/uL Low 150-400 [facility] Comment on above: Order Comment: Speci men Type: BLOOD SPECIMENOrdering Facility: [facility] Address: [address] [place] [address] Result Comment: Resu lts checked and verified.No clot detected. Performed By: #### 5 7021-8 ####[facility] LABIA [id number] [place] [address] [place] RBC (Bld) [#/Vol] 3.06 10*6/uL Low 4.20-6.00 [facility] Comment on above: Order Comment: Speci men Type: BLOOD SPECIMENOrdering Facility: [facility] Address: [address] [place] [address] Performed By: #### 5 7021-8 ####[facility] LABIA [id number] [place] [address] [place] WBC (Bld) [#/Vol] 6.77 10*3/uL Normal 3.70-11.00 [facility] Comment on above: Order Comment: Speci men Type: BLOOD SPECIMENOrdering Facility: [facility] Address: [address] [place], [place] [address] Performed By: #### 5 7021-8 ####[facility] LABCLIA [id number] [place] [address] [place] CT LIVER W IVCONon 3 CT LIVER W IVCON Normal Cleadel[facility] Hepatic function 2000 panelo n 01-20-2023 Albumin [Mass/Vol] 3.8 g/dL Low 3.9-4.9 [facility] Comment on above: Order Comment: Speci men Type: BLOOD SPECIMENOrdering Facility: [facility] Address: [address] [place] [address] Performed By: #### 2 4321-2, 20529-7 ####[facility] LABCLIA [id number] [place] [address] [place] ALP [Catalytic activity/Vol] 110 U/L Normal 38-113 [facility] Comment on above: Order Comment: Speci men Type: BLOOD SPECIMENOrdering Facility: [facility] Address: [address] [place] [address] Performed By: #### 2 4320-2, 02425-0 ####[facility] LABCLIA [id number] [place] [address] [place] ALT [Catalytic activity/Vol] 26 U/L Normal 10-54 [facility] Comment on above: Order Comment: Speci men Type: BLOOD SPECIMENOrdering Facility: [facility] Address: [address] [place] [address] Performed By: #### 2 1-2, 17307-2 ####[facility] LABCLIA [id number] [place] [address] [place] AST [Catalytic activity/Vol] 56 U/L High 14-40 [facility] Comment on above: Order Comment: Speci men Type: BLOOD SPECIMENOrdering Facility: [facility] Address: [address] [place], [place] [address] Performed By: #### 2 1-2, 05628-5 ####[facility] LABCLIA [id number] [place] [address] [place] Bilirubin [Mass/Vol] 4.0 mg/dL High 0.2-1.3 [facility] Comment on above: Order Comment: Speci men Type: BLOOD SPECIMENOrdering Facility: [facility] Address: [address] [address] Performed By: #### 2 432-2, 71628-8 ####[facility] LABCLIA [id number] [place] [address] [place] Bilirubin.conjugated [Mass/Vol] 1.2 mg/dL High <0.2 [facility] Comment on above: Order Comment: Speci men Type: BLOOD SPECIMENOrdering Facility: [facility] Address: [address] [place] [address] Performed By: #### 2 2, 87894-4 ####[facility] LABIA [id number] [place] [address] [place] Protein [Mass/Vol] 7.1 g/dL Normal 6.3-8.0 [facility] Comment on above: Order Comment: Speci men Type: BLOOD SPECIMENOrdering Facility: [facility] Address: [address] [place] [address] Performed By: #### 2 2, 60210-3 ####[facility] LABIA [id number] [place] [address] [place] PHOSPHATIDYLETHANOL (PETH)on 01-20-2023 EER PETH See Note Normal [facility] Comment on above: Order Comment: Speci men Type: BLOOD SPECIMENOrdering Facility: [facility] Address: [address] [place] [address] Result Comment: Auth orized individuals can access the [facility] Report using the following link:[email or web address] By: KORTNEY Gordon[address] [place] [email or web address] Director: Audi Bundy MD, PhD Performed By: #### P ETH ####[facility] [id number] [place] [address] PETH 16:0/18.2 (PLPETH) <10 Normal [facility] Comment on above: Order Comment: Speci men Type: BLOOD SPECIMENOrdering Facility: [facility] Address: [address] [address] Performed By: #### P ETH ####[facility]CLIA [id number] [place] [address] PETH 16:0/18:1 (POPETH) <10 Normal [facility] Comment on above: Order Comment: Speci men Type: BLOOD SPECIMENOrdering Facility: [facility] Address: [address] [address] Result Comment: INTE RPRETIVE INFORMATION:Phosphatidylethanol (PEth), Whole BloodPhosphatidylethanol (PEth) homologues Result InterpretationPEth 16:0/18:1 (POPEth)Less than 10 ng/mL............Not detectedLess than 20 ng/mL............Abstinence or light alcohol jehgtsgrmde28 - 200 ng/mL................Moderate alcohol consumptionGreater than 200 ng/mL........Heavy alcohol consumption or chronic alcohol usePEth 16:0/18:2 (PLPEth).......Reference ranges are not well established.(Reference: Jessica Pulliam and Anup Dee 2018 J. Forensic Sci)Phosphatidylethanol (PEth) is a group of phospholipids formed inthe presence of ethanol, phospholipase D and phosphatidylcholine.PEth is known to be a direct alcohol biomarker. The predominantPEth homologues are PEth 16:0/18:1 (POPEth) and PEth 16:0/18:2(PLPEth), which account for 37-46% and 26-28% of the total PEthhomologues, respectively. PEth is incorporated into thephospholipid membrane of red blood cells and has a generalhalf-life of 4-10 days and a window of detection of 2-4 weeks.However, the window of detection is longer in individuals whochronically or excessively consume alcohol. The limit ofquantification is 10 ng/mL. Serial monitoring of PEth may behelpful in monitoring alcohol abstinence over time. PEth resultsshould be interpreted in the context of the patient's clinical andbehavioral history. Patients with advanced liver disease may havefalsely elevated PEth concentrations (Reyna GALLOWAY et al 2018,Alcoholism Clinical & Experimental Research).This test was developed and its performance characteristicsdetermined by [employer]. It has not been cleared orapproved by the U.S. Food and Drug Administration. This test wasperformed in a CLIA-certified laboratory and is intended forclinical purposes. Performed By: #### P ETH ####[facility]OR[facility]IESCLIA [id number] [place] [address] PT panel Coag (PPP)on 2022 INR Coag (PPP) [Relative time] 1.3 {INR} Normal 0.9-1.3 [facility] Comment on above: Order Comment: Speci men Type: BLOOD SPECIMENOrdering Facility: [facility] Address: [address] [place] [address] Result Comment: Binta min K Antagonist (VKA) Therapeutic Range: INR 2 to 3 (Target INR of 2.5)Note: For patients treated with VKA drugs, such as warfarin, the [place] [employer] 2012 Guideline recommends a therapeutic INR range of 2 to 3 (target INR of 2.5). This recommendation includes high-risk patients with antiphospholipid syndrome with previous arterial or venous thromboembolism, current-generation mechanical or bioprosthetic aortic heart valve replacement.Note: Patients with mechanical aortic valve replacement and additional risk factors for thromboembolic events (atrial fibrillation, previous thromboembolism, LV dysfunction, hypercoagulable conditions) or an older generation mechanical AVR (i.e., ball in-Cage) or any mechanical MVR should have a INR therapeutic range of 2.5 to 3.5 (target INR of 3).Robyn GH, et al. Chest 2012, 141:7S-47SSindhu RA, et al. [facility] 2017, 70: 252-289 Performed By: #### 3 4528-0 ####[facility] LABCLIA [id number] [facility] [id number] [address] [place] PT Coag (PPP) [Time] 13.4 s High 9.7-13.0 [facility] Comment on above: Order Comment: Speci men Type: BLOOD SPECIMENOrdering Facility: [facility] Address: [address] [place] [address] Performed By: #### 3 4528-0 ####[facility] LABCLIA [id number] [place] [address] [place] TOX SCREEN ROUT URon 023 Amphetamines Confirm (U) [Mass/Vol] Negative Normal Negative [facility] Comment on above: Order Comment: Speci men Type: URINE SPECIMENOrdering Facility: [facility] Address: [address] [place] [address] Result Comment: Cuto ff threshold at 1000 ng/mL. Performed By: #### U TOX2 ####[facility] LABIA [id number] [place] [address] [place] BARBITURATES, URINE Negative Normal Negative [facility] Comment on above: Order Comment: Speci men Type: URINE SPECIMENOrdering Facility: [facility] Address: [address] [place] [address] Result Comment: Cuto ff threshold at 200 ng/mL. Performed By: #### U TOX2 ####[facility] LABCLIA [id number] [place] [address] [place] BENZODIAZEPINES, UR Negative Normal Negative [facility] Comment on above: Order Comment: Speci men Type: URINE SPECIMENOrdering Facility: [facility] Address: [address] [place] [address] Result Comment: Cuto ff threshold at 200 ng/mL. Performed By: #### U TOX2 ####[facility] LABCLIA [id number] [place] [address] [place] CANNABINOIDS,URINE Positive Abnormal Negative [facility] Comment on above: Order Comment: Speci men Type: URINE SPECIMENOrdering Facility: [facility] Address: [address] [address] Result Comment: Cuto ff threshold at 50 ng/mL. Performed By: #### U TOX2 ####[facility] LABCLIA [id number] [place] [address] [place] Cocaine Ql (U) Negative Normal Negative [facility] Comment on above: Order Comment: Speci men Type: URINE SPECIMENOrdering Facility: [facility] Address: [address] [place] [address] Result Comment: Cuto ff threshold at 300 ng/mL. Performed By: #### U TOX2 ####[facility] LABCLIA [id number] [place] [address] [place] Ethanol (U) [Mass/Vol] <11 Normal <11 [facility] Comment on above: Order Comment: Speci men Type: URINE SPECIMENOrdering Facility: [facility] Address: [address] [place] [address] Performed By: #### U TOX2 ####[facility] LABCLIA [id number] [place] [address] [place] Opiates Screen Ql (U) Negative Normal Negative [facility] Comment on above: Order Comment: Speci men Type: URINE SPECIMENOrdering Facility: [facility] Address: [address] [place] [address] Result Comment: Cuto ff threshold at 300 ng/mL. Performed By: #### U TOX2 ####[facility] LABCLIA [id number] [place] [address] [place] oxyCODONE cutoff Screen (U) [Mass/Vol] Negative Normal Negative [facility] Comment on above: Order Comment: Speci men Type: URINE SPECIMENOrdering Facility: [facility] Address: [address] [place] [address] Result Comment: Cuto ff threshold at 100 ng/mL. Performed By: #### U TOX2 ####[facility] LABCLIA [id number] [place] [address] [place] Phencyclidine Ql (U) Negative Normal Negative [facility] Comment on above: Order Comment: Speci men Type: URINE SPECIMENOrdering Facility: [facility] Address: [address] [place] [address] Result Comment: Cuto ff threshold at 25 ng/mL. Performed By: #### U TOX2 ####[facility] LABCLIA [id number] [place] [address] [place] CNPNon 12-11-2022 CNPN Normal [facility] Lab Reportson 12-11-2022 Lab Reports [id number]:[address] [facility] RAD - Ultrasound Reporton RAD - Ultrasound Report [id number]#[id number]:[address] [facility] Coding Summary.on 12-10-2022 Coding Summary. CD:[id number] Ww+PGhl YWQ+HH3UAMWdQ41jvFVffZ9wH8B MTElOSywgQVBQTElOSyIgbmFtZT 1kaXNjZXJu IC8+GN3rVLQuEdvydBAsx4Q6fEN 2E17gks0dEFquiJQ8RBUmYdTypw yto2jvdQq5GMgdWcqyCtSm UFNodQ07KED2bS08Rj22aMZkvEU ta9puvHy5JcLvARZbJPV3nYkwGN bpk4JpMCChY20gqVJmh1W8 MXBejJjhwDNvQyOhwVL2qJ7tQKv tggxsm3yygoxnNfw9lx01sWTqd7 G1sKB9J6TlyrF2KIErxNQn TrjzlMRHqH7wiizdq4yyvywmFbK mJPNeJZc4VYi9FWNqoHmcTgYsEH 18MWO5XKYmluUzD0VmLCVm cWpxDjP8p7L1Oz2AL0KYCelaU3V NTUFSWTwvdGQ+RA14dc99I8KrOx wcAyp4BMVaMHC1eYZ3sN1r OHTqFCfcz0E8zYL4V4VpqkWqxs1 it2egZKAeMVucO80zpVSpb4A0QD CysVY3UXBgyXcfLsMrkG97 Oyc+TJKzzCxog1FvRecxt7oai0o pxFg3LdmvAYWefyXceYugHSR6o3 FjPl3bSIShxER0aPZ0xR1w ZmDzRbI3VEwtR022MpJljVYcYky vY73fD3SnqUO+EHDnZsz8QIPlnH ilMY6qI0NaBWHavnzupGZf uWwdTP6nHCHrxyftZJWmrX4xSWG oB9n5YdJlYzH0PDsaG6UfAKRyed rzGx04tS8nBhPdPfV7AAlp O6FixvJ6BFGedZDpPHkoFIC0T67 ot8U3HAEjACUnRWG7kCO0tQ8tlW lnbjogbGVmdDsgdmVydGlj UIyySDcmR299MRBifKmlRuSmLWe uZyBEYXRlOiAgMDQvMTkvMjAyMz wvdGQ+UKPkZMX9nFhgLOBa cIRxXJsnNw9euGpywOxwBF0aWWM trujeYQLmvP6yPATwmCZftJkcVF 5aOIQbohhrs299ItVqJXY2 JQNacYXiL0JmbB4lAqFlPFRzYFB hE4CwhKSsHNdtB757XNtaMjK9RI ImlnGcI0PaCLXyxJiqUvA9 v6J9Qs0Ve6OrvfqgT0GgqORuMzP gUinbUGv8L0IdSgesbTF+PC90YW CxDM95JLq2VWT9xQieKDkd PXMrL0TswG4tOcTnSZYfVQEfLny +PHRhYmxlIHdpZHRoPScxMDAlJy DinTowGN3cTe2cCSKxLAMj pPdqxZIqSdYce7pmNTFfCDmmHY7 xrQyiK4XpjCH6MIGka1k1Qf86Q5 0rI6YrbNZ+IQDtlLO5rLR1 zJ2aJxWhVtO9BXkjY592XxFilUO pObohr6akl8aamUu8HjW0ZFXgfz MpxReeOIG7y6OdMh76J09n IHdpZHRoPSIxNSUiIHZhbGlnbj0 pkE7aHv9+TTHdzUO1gAA9eS6yKh FuBeJ9OTgdJ824VoHrjIZj Aktqn3pvk1fgfAu6FmWiBTSlecF neIkmWFG3m2ToEt62V7KpyNbvs1 SrLbj5ek17qFUmz7K2cOZ2 A3JqIHSgkcvnrUEjfGgjDF2dQNT saexhAZUllL0wHNFmI5q0NxVyBg L7EXhfC1SzjyN9BJPxiIPk ZDLkdVJXgZ3yomjyd1qtfugsVeB jTJNoJAu0AUi1AZKtcGckHjUuMA D8ZrN1HOD4rMOhcD1opSgl vshjnW2gTrd+DVN0lXIwqGZKYX3 lOjwvdGQ+NWJmRUA3nVxsRBjfVL LhgA1uMFJmG7s5YaPyHtM7 LVnrM9CgjyR3QMLbdYFwMXLotQX RcD0uzlqna8wvwouwWxUjYNPzVZ g0NJs4RHGhzJenOvAsXKH6 HoA8IQT7qJLjiU6axIpnsfbzvZ9 wOyc+DqtltQbpECE0RJz2Q0OmWn h1MCYvmHmlOU5wwEHwEEyl Br1brWsjpCmfQV0sHOJgowyzr38 5MbMyw0yjUTUzeORnPGxjJEW7S2 0ol2H0OKQyHNKjIYI3eTG9 gY6diJaxzdhqaQEsmNwnkyOxrQr uMHbaAAcqZ120WAAvrGdwExXoWR m9K5MjLqj0HRJcuFrxZT2m rNGvBGjaYw1ezHnteCesWW6qCWQ pprjck112RqMjv3hhHPMduGNmUX lmCOB8I57lr5K6MIIaHFSb MIQ0iVD1nU3shQdlgktmwAEohTr jtoUigQjiXZwtZVotF635BCOgxP tdIwMbsIv6Z5AmYue0KIRj iEksUU1iiMWtSAgfEu6ooPdoqWa cVF0iMTNkeujwg053BrEcn8gnLU UgeIGdKMxlONL0O64qo4Z0 IMYmQMBrYBF8mSV7jD1syLophtq gbGVmdDsgdmVydGljYWwtYWxpZ2 46IHRvcDsnPlBhdGllbnQg SLcxFBf2M0IwAsivzFN+RW25OFI nHH98zJMqhVGsm0ujeRt5ZuVgUL DkJQP4hBeeUExrg5YzOUHm R77ysPMsc7V9GTEweOakkJLbCqR owRY5mT7iSFprkykex4xlzuyzNj cjf0yqvr67pS96V09aRDce IEFxCNSnKXXzHIKvkFcdqp9dkA2 wIi8+NDJtxBF9nOP8jU3vNTTjLs A9EIutP939OhCylMDjNmaf a2efx0rwiWv8DfM7NMFdvrEfuVs dLMR9m9YkIi55V99tZGfyEULyOK WyFAVlZIXgwKyhwh7tgV9g Ii8+WBNunKL7fQY1eT5hHrCzKyU 6WWdoW060OiTbwVFfYuwbH07cI9 JvdXA+YMLjTid4XETtoLwi DU6unBPyJJegHb4cBCL7MwZxFyS fGQqoO6NyZSXoxepihzytfXA5HW XwYDOiqY42Pk8kxXugFMJs sZIIpQ8gwncqi7wbcxkuZuIdHNO yOXo1QLn2YLMjsZrbSuDxCYY0Xw J3VZX5mUJxjY3gpCfmizuy rE8lI3CkCONsljiiIm97cI5zTcJ pJaJ2AKctNhz+SFVOVCwgVEhPTU FMQQo8T8TaLnl7ZPShkUkb TK0frJHfGFgbDu8joOfunBvkXN7 jYAPrnpqxVYIjaD1mSYIcvAQkgP mxBF6dZRHsfdfpk882HqJh XCN3VZLpiNCxJ6XqfU2bJlPvGRU rBHXxP2HfrQVaBMrtW660IEouAh L7SQTrfcNfX9CfYYYuoWri AcS9d6B9Ea8kNS7iBq1eIUudZB6 4UK27nSXqf8M6wBO2J4UeFZMmrh qkznuuvBI7TKKeGLWqtU44 xXXqWSezRi7bx5C2x040EEToKTV jaP47Jy0xjGjdUGYosSODpU6bfv yjf3ainhirBmAtORIvVMw6 WLf6XHDhsEnmHqDxFJM6QtY1KXJ 6gJTjfK0ndZtnwdtasT2aXhf+ND LnJSVimvV4S8WcNjp9BBFl kPefFE7feXXnVPnrAu8tuLgcdQo jZG0fKMUxdrkrXVOceX8zVQYutJ CvbYvzIX6zTTOyynmso944 WzAgZBX0HOYfzJXuI1HgiO5cMyC fOCQqZOQzK2PumTUyMAdbC255CJ awEfQ2OCQgcwZeV6WfDFVa dTxeTyS6d7N6Gn5GXJinBR55PH8 3lBHkl0M2hXF5D1QuOYPkttnpyt kgpLX4PEXgVUFpfC76wJHo JVgtCp2pk1N7a200FCPnIKBpuK6 5Va7fpWruGERbjSAGdO0uuzlck4 yjrltbHnGeKPHoEDy1TEs4 ZXHrlSuoHsAbKQN8NjF6MAJ5hOK icI7rqNxycvdueL0gKrx+T3V0cG D7rQIweRaygDE+SZ78rn34 M8OwVssfLlc9TVVfZGC1zHF9uX7 fFDPjCKmlf0K9wPQ8Q2QdllTmax 4ef6ejYSJlTGzaB36ckSIj u1G2MNQrxYI2QSYnjKeoWnPqwI4 3Oyc+FJLdjVfpn1CbNihfv6dgd8 vcbMt8JkFwCVAmbvZxcDue TUX2i3KfTz08G09aNEesWPUfNNG jQMCzOAEriMlvug9grS8sAd2+PG ZhxHG9hEB1wZ5mVcArEfA3 KNbvW970HzFmqIRjCigwm2ytl9j krKg7HeHaILYrsoWzoDonJDS1i5 ZaIo08G4AunEtml8KaKzc1 ab69mRXcx8S7iZU7T5EzTYSfqwo ylFYwaNifNP7qQVCvxctkWYOgzB 0cFRKwG0t1WgCnWrG0IFzg W9FmveN7PDSklWDsPJGbdMSDkO6 kuoqcx3ttwurwLiQbXUFhTOe0CA o5ZSKpaKbiZnTlSEA7FmI4 IDA1rVVwgE6qpTbgydhnaT1qKxa +IHn3l5rysVCnNB5ihSN1RX21ZS 70fEOsd2B3aUM4P6OaMGJe jaxaeblyxEG7NBLwPCVjaE87Zg6 yaUluVm9mRPPuQJW4HQYxaGEyM0 AscD7wMjYnWKNoTAKtN3Rr hQAeNOcwM251ROmwDgF8VVIjlgC yT8SbIAIcjLxtZxM7o4R6Ef0TCF 67ZJ18YI14bSBua1V0xTA5 H2HoYJIooqbolfqpnHN4SZYrXVO xgR83Xa2zsRakWb7xEFPlAGS4MS YdzDInX8BmeE2jCoSvQROz KHSpP0NspWYePLfmF631NBxnDaT 3MSEsdhIdH6IyNYFinMoaYtW1j8 H1Lc8FKd22VL79VT35oPDg f0S3eOP9A4DfMBNxjnlclibppOH 8UYIqJWQawI20Pr3jgAuzAu5dQZ QnHGL0PJVmhKCbB6KhbL7o XsOuBPEfRJSbT9RvhQLkCWidN99 0VRjlZoA1DIPcfrOsX5RjTBProO nxVeS9c3F3Kv3XPDluvzy1 V0KuYogpoEE+FG43TBWeZF20gFX trLUdb9xwxCs6LyJqWHPmSVM4fS uuOOnvs1KhDCNzO06ikKNp e0C3KIQq (more content not included)... Normal [facility] Coding Summary.on 12-03-2022 Coding Summary. CD:[id number] Ww+PGhl YWQ+QU9EHGHjL90csOKbsH8uI5R MTElOSywgQVBQTElOSyIgbmFtZT 1kaXNjZXJu IC8+AN6jBPVvXmlyeENws9J1hNX 3K22asz7hNFkxrPN2HUUrSqVjxu iqk9edvHz3HRmuYassQcPg HFKozF85URQ5uV43Bo35pPHplID mx9iqyLa0LiYxYYKoIXM6sRzbVU kwz7NwPUFmL88lqLWhu1C5 WMPaaSnxuIGiQeTanSS5yZ9hPSf wwahpw8sxkcdcHqg4qc45oPAhf9 F0iZZ8U0OqbxG3YTZjvJZn UlfgwFOBwA4tcjzeh6qyrzkkIoH jHSQmORt1ABg0TSYllJqvYzTfTP 10PMG4PRDigxIwH4WkMBWc uZdeIaF9x1F4Zl2MN1YXZhovM5I NTUFSWTwvdGQ+EC35vr17J4HaMd tbSkl1WGYpPQR7gBQ8eC3n SDZtXTntw9U6uPH1K4MwzlBghv2 de4uvHEExPOtaE17zoTGdh9V4QO ZnkYU0LOXfcAabCuKiiP66 Oyc+GTZxxQceg6GkUcpil8tmd2f arCz8AacbIGNsweQorThwRLC4n8 TfSd6mGYMhvFT3bZM8oU8d JaBcUuR5MNbmC875YjQzsFWtIxz mJ75jH1KmyIQ+IAOiMql1YERdwW bxYI6rP0PhHTWtpyktnXDz dKkaOR6zHGMfigaaNNZhpZ7jMHR yU4a0MmHfMwN7UWqjS0NfYYBxpx taVv60uS2sLuPtIjI9RPfi S5DojbU0FHLkgBXyURrzDKU4L30 ik7M5LGYqLSZsHCE7sJN6bZ7jsB lnbjogbGVmdDsgdmVydGlj KGwkGCsdX073LKKiwUdeQhTeHBv uZyBEYXRlOiAgMDQvMTIvMjAyMz wvdGQ+DMSmWOY4lNdhAKFg uMOmDAbcKe3dnRipgQnhFQ7cYUC vjwqgKTFajH7jCEYjqMHbgJuqYA 9aFZHkynrei424VhBiPSP8 PQMivEBpY8HclY2rJzDyHFFwPTD uP0OffVMmROhmX948GBejBqQ0CL NhubFeA3TjBWSuvJheIeH8 v1U7Gz7Uo7MyrxzjR6KfbKAbIdM qNknqWBh1O5ZsDdynrMT+PC90YW VwPF88EZc2UXL8pZffYLwj TUGcE4JbqC2vGrUcKVGyHQJbSdr +PHRhYmxlIHdpZHRoPScxMDAlJy OtmJjwMJ5dYj8yOADwBROw oUaylZHiStFbi3beRKCnYMrfVZ9 ktFljY5HjbVC1HJTux8s9Tw02O8 7fB9RwqXO+CUKtoNX0cCQ3 tP2gHlDwZbP5FLctA011FeYvtSE zRzabo7obi4rwkJu7HpV0OVFtnb EphIdbCPR0p3ZhIe06A71q IHdpZHRoPSIxNSUiIHZhbGlnbj0 yuB3xBn3+LLZhfYP9bQX9vX5aZx RgKoI1LMmvL358OhTknMHa Gvwka0ilu5bbqWm7WwCcGCEgcrJ irMsgCWN0z1MaPf22Z3ZqoEqnz7 IwVqy7sl73uUVpp6I7dOB8 O3XkVHYzokzznUIxqNbxKA5eKMU kzrynDVNirI9tJCMfJ4u3UuCfDc I9DLabF1XzaiF4JSNkiMFu ZGSzeIKUtZ5trovyd1dnrqgbRpA dKIHtTSa1KOv9CPFxwDltVvCmMS S8RvM0PBO5nVMauA7unXsi yccmjC2tSty+NEW0kCVroVUCYW7 lOjwvdGQ+BUGaWKX2lTmoBUshRO DveG7oLRGgN2z1JkLuCfN6 WZjrU8OvreB7PTLfjJVaUBNwvHK ZbS0cpgdcu7rceahtHnYzZPMnYC j9IJn4WVWpdOneKcTpBSQ2 OtY7JZE1qHZqoY2vgBifstswxV5 wOyc+BxkgaIvoTGX2ZHn3T4UyLb g9FXHlrMzlPM7shIFiZInp Hx1sdGwciIphSE9hSGVweygnn94 4OpUij4zoDJFvlSUwFOmqFUV9E3 0fc8R6TAJbIGRgGBI1eRC6 iA2qqKdmodmgxPJjuDzbhcNryOt nMNuyJVquE499VZHvxTuuFyZvOI i0P1UcWby7OXOlaVyjIO8r kLUyNDfaAt2zlSghfAwwZX2ePGK wdnozu026LkTwa5zkBFYfzSJsYK nqBVO1O44my1T9IPVxYIXt ZIX1hKZ4aB6mdJwhgghdvYAkkRj fskLfhUytMUjnJDooB526OVXcwB fhJvDhbRf0O7OcRue7JWWc jFqaNY0hdWEfUMoiYm8tvDsdtTr gZH6uFOXkumyhd536NlNio6mnPP RstYJoHUogLSN5Q45fd8A9 RYAcQVUrVOA5jWM6fR7agGdswjq gbGVmdDsgdmVydGljYWwtYWxpZ2 46IHRvcDsnPlBhdGllbnQg BKlhXCm9W2TtAcwkaAW+TB27VMK nCQ00gECamBNwx1shpGh6AgVyPQ DwNEY9yOplQZfac3LtRNCr W32clOKtt3N6LKZuhDwarSAjNoK qiYC7dA2sJSotsdtem0qhkstrQu ojm2rlud82lD62V60dKTbj AWEcTDGbGUPcFCNbeScksd2jqX5 wIi8+MGFqmFT0zDC8tF0oBKFuBr J5IKmnG638GsZvqTFxSnmk x8msw4rufOg4AmB3BHQzqmFsaAc dHES5f3GsMn29T16xJShrZRJrXX RwPTBtBZHmoTdxte8uqN8k Ii8+LWFewWW0vTC1kO8lKgMtDxM 8WEylD098RhHrxEAbMyccQ18oU9 JvdXA+SAVqAuh5YVAbrWfg PP1cjRBxXLqaMh9qVVE2ThPbUjR dXSaeB9HzJCCrqxzjkcaywZT5YY XmLGWzrS68Zf1ckMqkRHNs vRPEjW4okzuhm3oyoydoQsRuGIN lTLf7TPg7OQWuyPhaQdWmXOG8Ga U2BYK2qRUrfW9jgFstlurh oV3uK7NfYOZqiorkAb00wL7dNsP cOjW3OJgsUyh+SFVOVCwgVEhPTU PCINx3J5OyExp3VHNneCck RG6fmBSlOLbvLw6bxTjnhFyqTR9 kEACztmivYDXmaG3dUQJzzAMdtN wcJZ6jRWSzraklo726IaFk EYT8HLKrdYInO7BvhF7nJqQoRZS pARSmG0StgBPuPRxnS729NPbeQg C2HJMmlsXnS3VvVPZuzYyj IzW7m2L0Aq5sGE5rNy4vGVanVG8 6KY97vMFjh9X8xHA7J4UmQXSkxz kjgldddUM2XFAgCLWmmF18 zWEuLQcoLp9po8G5m087KRBxGWL zwG97Zk9xiZuqLFWxgGYGrK7qtx xsk8vcypteTqWkHTYgVOh6 TLm1TBJplKggPtNaOMO9AeG7XRP 4tBKalC0hzLqxybhzhU8xVnv+ND EdDULcldB6S9WqWug1UTVc vWsbVM7saZBwFLogLl5zfAaqpWz oTO7wWNUignjgQMHmpQ5sVLQnlU FfmVlvNU8sAFOnlsolo861 NuBvZVH3HHYfoKGcL2PlzL4fWmL aLEAcMUMtD4EbgGViRIlgF086QA uiVyY6UENgktAiY7QeVDBh qHyrPrN6r4O2Wl0NVLfaKO22HG7 5xSFem1Q8uNI1G0OhLOOiilqjhf agbOT9EKEmVCZigQ47vUAp CGxsEx1zh3N6v390OYJfGXZnfD7 1Eg9quNgjFYEagDPHvW5vrzkik5 wjunicIrBzKKRmIDl6OZx9 CVQqgKijLjRrAMA3TxE2VWE7mXQ amC7qmXycxxloxW3pZgi+T3V0cG U0yVAxzQqicOL+LI72ft11 W9AtNbhnShc6PAMeEQP5cLK4oC1 jIRDtZIlib7I4xWJ6B5BphuBirl 6ek9oxVLJtOPkmD92swECq x1F9DNXqyMZ4SSJpzGfiVvVauT3 3Oyc+EBNihEerr6SzZvolh8wsu3 qioIn3GsAfRULfmcOwmExq XWK4z5DzSx48R48rYMcmXQUlPHM yDEMxDZYkhAtzec6vfJ1qFr5+PG OvlBD5kIZ6hV8sXmHrOiH4 HGslR960PxVbcCMaDbgzc9lod6z lnKd7VpFpMWNdflVvqTtnQGG7o8 GdOg45U1JfyXdjv6LsCcg4 ez65yEVjl4Y0bTU0B1CjRORswas aeVGktSwuNQ2iMCMnmqjcQAQpwG 9hEVIaM6j9WpOcFvC3GPqb C1RlveB8ZBJwbOJoHXWbhLNHtU0 lpjtmk3rvuorsYwVeLPYnQUo3QP b7KJZtdBblHeJpKSZ8PtA0 QSA3rWZlhH9cbIjaistouF7kWtc +RCt6d8pbuWYaXZ0obWE5TI27UN 01kEEyx9Q8nBK5F9XnDJWy cyqbtbzkaNR0ADZxIICfvC00Tm8 nwXkkXj6dMCJgPMM2MUFoqOHaP5 JhdG2dOsHxSSWiVZCsQ9Tk kVYnBWsuZ009IPnnMfB9MMBjiqZ eR5LaHCPrkQcwSuE4j9D1Xz5WAV 55DZ03PC22eZNde2O1dFQ0 G3MbZSIzfzbexsocsUB2NZArFQZ ehV13Vs9kvLcoTf0cFOHeTMK4JF LbxNPfO5XfzJ5vVcWdFFUc WUVzD9LgkCAaGMpjW080RVlpClU 9VWUvyiWzA9AwJVKjvTepZsT4v7 F3Ex2VRr69JW94XP03nURj j3W8kVD0Q8JaXRTtyyowxhvjuNU 2SDEzOJMynC55Hn1qnSbmXk3zPH NiWHS9OVAxgHIwO5AxqD6q PxLpXMKjPLIkO4HwfTFnAJcgQ47 6NEisHbF0UUQbvzCqU6DaNBAjsW zuAqV1f9P2Wn7JFTpxkdo4 Y0VhCzuxmGR+ZQ09GKSuKV66oUR eqZDhf1yzgBz6FkAbBLHnZXN8oJ foADrgt8QiOSPbV67yjFPv f3X6RWGg (more content not included)... Normal [facility] Family Medicine Office/Clini c Noteon 12-01-2022 Family Medicine Office/Clinic Note Chief Complaint 6 mon follow up HPI Staff This is a 42 year old male who presents today for a 6 month follow up. History of Present Illness Kathy Haynes is a 42-year-old male who presents today for a follow-up. He is accompanied by an adult female. He was last seen in 04/2022. He has a history of alcohol induced liver cirrhosis. His MELD score initially was 25, but has been gradually improving down to 221 based on his last visit. It is complicated with esophageal varices that was banded, ascites, and lower extremities edema for which he was started on step 1 diuretics. He was sent to [facility] for liver transplant evaluation. The patient reports that he was told that he should be on the list by 12/11/2022. He states that he is considering a live donor. He denies confusion. He has stopped drinking alcohol completely. The patient reports that he was seeing Dr. Sethi. He states that he switched to his primary care physician and he was given vitamin B12 due to it being low. He states that it helps him with his energy. Review of Systems PHQ Score Initial Depression Screen Score: 0 Constitutional: no fever, no chills, no sweats, no weakness Skin: no Jaundice, no rash, no lesions, no petechiae ENMT: no ear pain, no sore throat, no congestion, no hoarseness Respiratory: no shortness of breath, no cough, no orthopnea, no wheezing Cardiovascular: no chest pain, no palpitations, no edema Gastrointestinal: no nausea, no vomiting, no diarrhea, no constipation, no GI bleeding, no abdominal pain, no dysphagia, no bloating, no heartburn Genitourinary: no dysuria, no hematuria, no discharge, no pain Musculoskeletal: no back pain, no trauma Neurologic: no numbness, no sleeping problems Additional ROS info: Except as noted in the above Review of Systems and in the History of Present Illness all other systems have been reviewed and are negative or noncontributory. Physical Exam Vitals & Measurements HR: 112(Peripheral) RR: 16 BP: 139/56 HT: 76 in HT: 193 cm WT: 101.1 kg WT: 222.42 lb BMI: 27.14 Constitutional: Appearance: well developed Skin: Inspection: no rashes, ulcers, icterus, or telangiectasias. Jaundice. Eyes: Conjunctivae/lids: normal conjunctivae and lids. Sclera icterus bilaterally. ENMT: Hearing: within normal limits. Lips/Teeth/Gums: normal oral mucosa Neck: Neck: normal motion, central trachea Respiratory: Percussion: thorax normoresonant. Auscultation: normal breath sounds; no rubs, wheezes, rale or ronchi. Cardiovascular: Auscultation: normal rhythm, S1 and S2; no rubs, murmurs or gallop. Peripheral: no edema Gastrointestinal/Abdomen: Abdomen: normal consistency and bowel sounds; no tenderness or masses. Liver/Spleen: normal size and consistency, not palpable. Rectal: deferred Musculoskeletal: Gait/station: normal gait Assessment/Plan 1. ALC (alcoholic liver cirrhosis) (K70.30: Alcoholic cirrhosis of liver without ascites) MELD score is 18. The patient quit drinking alcohol on 06/2022. His liver cirrhosis decompensated with esophageal varices which was banded and he had esophageal varices which was banded. 2. Esophageal varices (I85.00: Esophageal varices without bleeding) The patient has large esophageal varices which was banded. His last EGD was done in 06/2022 and showed distal esophageal varices. We will repeat an EGD annually.4The patient is currently being evaluated at [facility] for potential listing.This is well controlled with STI, 1 diuretics and 2 g salt restriction. 3. 3. Jaundice (R17: Unspecified jaundice) Hepatic encephalopathy: None. This is secondary to liver cirrhosis. The patient is being considered for liver transplant listing. 4. Vitamin B 12 deficiency (E53.8: Deficiency of other specified B group vitamins) His last ultrasound was done on 10/2022 and showed no focal liver lesions. Vitamin B12 deficiency: We will recheck vitamin B12. ATTESTATION: Documentation services were performed after patient or guardian consented to allow [employer] to record this visit. GORDY patient service specialist and provider reviewed before signing. GORDY: Cody Quiros. Follow-up No qualifying data available Problem List/Past Medical History Ongoing ALC (alcoholic liver cirrhosis) Alcohol abuse Alcoholic cirrhosis Anemia Esophageal varices Forearm laceration Hematuria Illicit drug use Jaundice LFT elevation Lower back pain Lower extremity edema Lower leg edema Vitamin B 12 deficiency Historical No qualifying data Procedure/Surgical History Esophagogastroduodenoscopy (07/18/2022), Esophagogastroduodenoscopy (05/23/2022), Esophagogastroduodenoscopy (04/30/2022). Medications BMX Solution, 5 mL, Oral, q2hr, PRN, 1 refills, Self Directed cyclobenzaprine 5 mg Tab, 5 mg= 1 tab(s), Oral, Bedtime fluticasone Top 0.05% Crm 30 gram, 1 oly, Topical, BID, 1 refills, Self Directed Lasix 40 mg Tab, 40 mg= 1 tab(s), Oral, Daily, 3 refills (more content not included)... Normal [facility] Comment on above: Result Comment: Elec tronically Signed By: Frances PEPE MD\.br\Date and Time Signed: 11/30/22 22:47 EDT\.br\Electronically Co-Signed By: CODY QUIROS\.br\Date and Time Co-Signed: 11/27/22 17:19 EDT Ambulatory Visit Summaryon 0 11-27-2022 Ambulatory Visit Summary KATHY HAYNES :1980 Visit Date:11/27/2022 Ambulatory Visit Instructions Your Diagnosis ALC (alcoholic liver cirrhosis) Esophageal varices Jaundice Vitamin B 12 deficiency Your Care Team Attending Physician - TONY EUGENE, Frances Primary Care Physician - JANAY EUGENE, KAUSHAL Pearce This Is Your Medications List furosemide (Lasix 40 mg Tab) spironolactone (spironolactone 100 mg Tab) Contact prescribing physician if questions or concerns BMX Solution cyanocobalamin (Vitamin B12 1000 mcg Tab) cyclobenzaprine (cyclobenzaprine 5 mg Tab) fluticasone topical (fluticasone Top 0.05% Crm 30 gram) Procedures Performed Esophagogastroduodenoscopy (07/18/2022), Esophagogastroduodenoscopy (05/23/2022), Esophagogastroduodenoscopy (04/30/2022). Discharge Vitals Heart Rate (Peripheral) 112 Respiratory Rate 16 Blood Pressure 139/56 Height 193 cm Height 76 in Weight 101.1 kg Weight 222.42 lb BMI 27.14 What to do next You Need to Complete the Following Vitamin B12 Level, Blood, Routine collect, 11/27/22, Order for future visit, Lab Collect, Vitamin B 12 deficiency, Print Label By Order Location Medications What How Much When Why Instructions Unchanged furosemide (Lasix 40 mg Tab) 1 Tablets By Mouth Every day Pickup at [facility]acy #[id number] Unchanged spironolactone (spironolactone 100 mg Tab) 1 Tablets By M[id number] Unchanged BMX Solution 5 Milliliter By Mouth Every 2 hours as needed for Chest pain Contact prescribing physician if questions or concerns Unchanged cyanocobalamin (Vitamin B12 1000 mcg Tab) 1 Tablets By Mouth Every day Contact prescribing physician if questions or concerns Unchanged cyclobenzaprine (cyclobenzaprine 5 mg Tab) 1 Tablets By Mouth At bedtime Muscle strain Contact prescribing physician if questions or concerns Unchanged fluticasone topical (fluticasone Top 0.05% Crm 30 gram) 1 Application Topical 2 times a day Contact prescribing physician if questions or concerns [id number] [address], [place] [phone] Allergies penicillins (unknown) Problems Ongoing - Any problem that you are currently receiving treatment for. ALC (alcoholic liver cirrhosis) Alcohol abuse Alcoholic cirrhosis Anemia Esophageal varices Forearm laceration Hematuria Illicit drug use Jaundice LFT elevation Lower back pain Lower extremity edema Lower leg edema Vitamin B [address] [facility] CNPNon 11-27-2022 CNPN Normal [facility] AFP SerPl-mCncon 11-20-2022 AFP [Mass/Vol] 9.0 ng/mL Normal <11.0 [facility] Comment on above: Order Comment: Speci men Type: BLOOD SPECIMENOrdering Facility: [facility] Address: [facility] [place] [address] Result Comment: The test is typically used as an aid in managing hepatocellular carcinoma and non-seminomatous testicular cancer when used in conjunction with physical examination, histology, and other clinical evaluation procedures. Normal levels of AFP do not entirely exclude the possibility of the above-mentioned conditions, other malignancies, and chronic liver diseases. The normal range has not been established for newborns.The Alpha-Fetoprotein test was performed using the Siemens NutraMedaur XP chemiluminometric immunoassay method. Results obtained with different assay methods or kits cannot be used interchangeably. Performed By: #### 1 834-1 ####[facility] [id number] [place] [address] [place] CBC panel Auto (Bld)on 11-20 Erythrocyte distribution width (RBC) [Ratio] 12.7 % Normal 11.5-15.0 [facility] Comment on above: Order Comment: Speci men Type: BLOOD SPECIMENOrdering Facility: [facility] Address: [address] [place] [address] Performed By: #### 5 8410-2 ####[facility] [id number] [place] [address] [place] Hematocrit (Bld) [Volume fraction] 36.5 % Low 39.0-51.0 [facility] Comment on above: Order Comment: Speci men Type: BLOOD SPECIMENOrdering Facility: [facility] Address: [address] [place] [address] Performed By: #### 5 8410-2 ####[facility] [id number] [place] [address] [place] Hemoglobin (Bld) [Mass/Vol] 12.4 g/dL Low 13.0-17.0 [facility] Comment on above: Order Comment: Speci men Type: BLOOD SPECIMENOrdering Facility: [facility] Address: [address] [place] [address] Performed By: #### 5 8410-2 ####[facility] [id number] [place] [address] [place] MCH (RBC) [Entitic mass] 34.3 pg High 26.0-34.0 [facility] Comment on above: Order Comment: Speci men Type: BLOOD SPECIMENOrdering Facility: [facility] Address: [address] [place] [address] Performed By: #### 5 8410-2 ####[facility] [id number] [address] MCHC (RBC) [Mass/Vol] 34.0 g/dL Normal 30.5-36.0 [facility] Comment on above: Order Comment: Speci men Type: BLOOD SPECIMENOrdering Facility: [facility] Address: [address] [place] [address] Performed By: #### 5 8410-2 ####[facility] [id number] [place] [address] [place] MCV (RBC) [Entitic vol] 101.1 fL High 80.0-100.0 [facility] Comment on above: Order Comment: Speci men Type: BLOOD SPECIMENOrdering Facility: [facility] Address: [address] [place] [address] Performed By: #### 5 8410-2 ####[facility] LABIA [id number] [place] [address] [place] Nucleated RBC (Bld) [#/Vol] 10*3/uL Normal <0.01 [facility] Comment on above: Order Comment: Speci men Type: BLOOD SPECIMENOrdering Facility: [facility] Address: [address] [place], [place] [address] Performed By: #### 5 8410-2 ####[facility] LABIA [id number] [place] [address] [place] Platelet mean volume (Bld) [Entitic vol] 8.8 fL Low 9.0-12.7 [facility] Comment on above: Order Comment: Speci men Type: BLOOD SPECIMENOrdering Facility: [facility] Address: [address] [place], [place] [address] Performed By: #### 5 8410-2 ####[facility] LABIA [id number] [place] [address] [place] Platelets (Bld) [#/Vol] 97 10*3/uL Low 150-400 [facility] Comment on above: Order Comment: Speci men Type: BLOOD SPECIMENOrdering Facility: [facility] Address: [address] Result Comment: Resu lts checked and verified.No clot detected. Performed By: #### 5 8410-2 ####[facility] LABCLIA [id number] [place] [address] [place] RBC (Bld) [#/Vol] 3.61 10*6/uL Low 4.20-6.00 [facility] Comment on above: Order Comment: Speci men Type: BLOOD SPECIMENOrdering Facility: [facility] Address: [address] [address] Performed By: #### 5 8410-2 ####[facility] LABCLIA [id number] [place] [address] [place] WBC (Bld) [#/Vol] 6.39 10*3/uL Normal 3.70-11.00 [facility] Comment on above: Order Comment: Speci men Type: BLOOD SPECIMENOrdering Facility: [facility] Address: [address] [place], [place] [address] Performed By: #### 5 8410-2 ####[facility] LABCLIA [id number] [place] [address] [place] CNSWon 11-20-2022 CNSW Normal [facility] Comprehensive metabolic 2000 panelon 11-20-2022 Albumin [Mass/Vol] 4.0 g/dL Normal 3.9-4.9 [facility] Comment on above: Order Comment: Speci men Type: BLOOD SPECIMENOrdering Facility: [facility] Address: [address] [place], [place] [address] Performed By: #### 2 4323-8 ####[facility] LABCLIA [id number] [place] [address] [place] ALP [Catalytic activity/Vol] 149 U/L High 38-113 [facility] Comment on above: Order Comment: Speci men Type: BLOOD SPECIMENOrdering Facility: [facility] Address: [address] [address] Performed By: #### 2 4323-8 ####[facility] LABCLIA [id number] [address] [place] ALT [Catalytic activity/Vol] 28 U/L Normal 10-54 [facility] Comment on above: Order Comment: Speci men Type: BLOOD SPECIMENOrdering Facility: [facility] Address: [address] [address] Performed By: #### 2 4323-8 ####[facility] LABCLIA [id number] [place] [address] [place] Anion gap [Moles/Vol] 11 mmol/L Normal 9-18 [facility] Comment on above: Order Comment: Speci men Type: BLOOD SPECIMENOrdering Facility: [facility] Address: [address] Performed By: #### 2 4323-8 ####[facility] LABCLIA [id number] [address] [place] AST [Catalytic activity/Vol] 56 U/L High 14-40 [facility] Comment on above: Order Comment: Speci men Type: BLOOD SPECIMENOrdering Facility: [facility] Address: [address] Performed By: #### 2 4323-8 ####[facility] LABCLIA [id number] [place] [address] [place] Bilirubin [Mass/Vol] 3.7 mg/dL High 0.2-1.3 [facility] Comment on above: Order Comment: Speci men Type: BLOOD SPECIMENOrdering Facility: [facility] Address: [address] Performed By: #### 2 4323-8 ####[facility] LABCLIA [id number] [place] [address] [place] Calcium [Mass/Vol] 9.9 mg/dL Normal 8.5-10.2 [facility] Comment on above: Order Comment: Speci men Type: BLOOD SPECIMENOrdering Facility: [facility] Address: [address] [place] [address] Performed By: #### 2 4323-8 ####[facility] LABCLIA [id number] [place] [address] [place] Chloride [Moles/Vol] 94 mmol/L Low 97-105 [facility] Comment on above: Order Comment: Speci men Type: BLOOD SPECIMENOrdering Facility: [facility] Address: [address] [place] [address] Performed By: #### 2 4323-8 ####[facility] LABCLIA [id number] [place] [address] [place] CO2 [Moles/Vol] 25 mmol/L Normal 22-30 [facility] Comment on above: Order Comment: Speci men Type: BLOOD SPECIMENOrdering Facility: [facility] Address: [address] [place], [place] [address] Performed By: #### 2 4323-8 ####[facility] LABCLIA [id number] [place] [address] [place] Creatinine [Mass/Vol] 0.85 mg/dL Normal 0.73-1.22 [facility] Comment on above: Order Comment: Speci men Type: BLOOD SPECIMENOrdering Facility: [facility] Address: [address] [place], [place] [address] Performed By: #### 2 4323-8 ####[facility] LABCLIA [id number] [place] [address] [place] ESTIMATED GLOMERULAR FILTRATION RATE 112 mL/min/1.73m??? Normal >=60 [facility] Comment on above: Order Comment: Rasta kennedy Type: BLOOD SPECIMENOrdering Facility: [facility] Address: [address] Result Comment: Karma mated Glomerular Filtration Rate (eGFR) is calculated using the 2020 CKD-EPI creatinine equation. This equation utilizes serum creatinine, sex, and age as parameters. The creatinine assay has traceable calibration to isotope dilution-mass spectrometry. Refer to KDIGO guidelines for clinical interpretation. In patients with unstable renal function, e.g. those with acute kidney injury, the eGFR may not accurately reflect actual GFR. Performed By: #### 2 4323-8 ####[facility] LABCLIA [id number] [place] [address] [place] Glucose [Mass/Vol] 102 mg/dL High 74-99 [facility] Comment on above: Order Comment: Rasta kennedy Type: BLOOD SPECIMENOrdering Facility: [facility] Address: [address] [place] [address] Result Comment: The [place] Diabetes Association (ADA) provides guidance for cutoff values for fasting glucose and random glucose. The ADA defines fasting as no caloric intake for at least 8 hours. Fasting plasma glucose results between 100 to 125 mg/dL indicate increased risk for diabetes (prediabetes).Fasting plasma glucose results greater than or equal to 126 mg/dL meet the criteria for diagnosis of diabetes. In the absence of unequivocal hyperglycemia, results should be confirmed by repeat testing. In a patient with classic symptoms of hyperglycemia or hyperglycemic crisis, random plasma glucose results greater than or equal to 200 mg/dL meet the criteria for diagnosis of diabetes.Reference: Standards of Medical Care in Diabetes 2016, [place] Diabetes Association. Diabetes Care. 2016.39(Suppl 1). Performed By: #### 2 4323-8 ####[facility] LABIA [id number] [place] [address] [place] Potassium [Moles/Vol] 4.9 mmol/L Normal 3.7-5.1 [facility] Comment on above: Order Comment: Rasta kennedy Type: BLOOD SPECIMENOrdering Facility: [facility] Address: [address] [address] Performed By: #### 2 4323-8 ####[facility] LABCLIA [id number] [address] [place] Protein [Mass/Vol] 7.7 g/dL Normal 6.3-8.0 [facility] Comment on above: Order Comment: Speci men Type: BLOOD SPECIMENOrdering Facility: [facility] Address: [address] [place] [address] Performed By: #### 2 4323-8 ####[facility] LABCLIA [id number] [place] [address] [place] Sodium [Moles/Vol] 130 mmol/L Low 136-144 [facility] Comment on above: Order Comment: Speci men Type: BLOOD SPECIMENOrdering Facility: [facility] Address: [address] [place] [address] Performed By: #### 2 4323-8 ####[facility] LABCLIA [id number] [address] [place] Urea nitrogen [Mass/Vol] 14 mg/dL Normal 9-24 [facility] Comment on above: Order Comment: Speci men Type: BLOOD SPECIMENOrdering Facility: [facility] Address: [address] [place] [address] Performed By: #### 2 4323-8 ####[facility] LABCLIA [id number] [place] [address] [place] LIVER REC HLA AB SCREENon ALLOGEN RESULTS TO FOLLOW See Allogen report to follow Normal [facility] Comment on above: Order Comment: Speci men Type: BLOOD SPECIMENOrdering Facility: [facility] Address: [address] [place] [address] Performed By: #### L RECAB ####[facility] [id number] [place] [address] [place] PHOSPHATIDYLETHANOL (PETH)on 11-20-2022 PETH 16:0/18.2 (PLPETH) <10 Normal [facility] Comment on above: Order Comment: Speci men Type: BLOOD SPECIMENOrdering Facility: [facility] Address: [address] [place] [address] Result Comment: Perf ormed By: [facility] [address] [place], [place] [address]Kiqbtkaqfg Director: Audi Bundy MD, PhD Performed By: #### P ETH ####[facility] LABORATORIESCLIA [id number] [place] [address] PETH 16:0/18:1 (POPETH) <10 Normal [facility] Comment on above: Order Comment: Speci men Type: BLOOD SPECIMENOrdering Facility: [facility] Address: [address] [place] [address] Result Comment: INTE RPRETIVE INFORMATION:Phosphatidylethanol (PEth), Whole BloodPhosphatidylethanol (PEth) homologues Result InterpretationPEth 16:0/18:1 (POPEth)Less than 10 ng/mL............Not detectedLess than 20 ng/mL............Abstinence or light alcohol voqqmwndrra76 - 200 ng/mL................Moderate alcohol consumptionGreater than 200 ng/mL........Heavy alcohol consumption or chronic alcohol usePEth 16:0/18:2 (PLPEth).......Reference ranges are not well established.(Reference: Jessica Pulliam and Anup Dee 2018 J. Forensic Sci)Phosphatidylethanol (PEth) is a group of phospholipids formed inthe presence of ethanol, phospholipase D and phosphatidylcholine.PEth is known to be a direct alcohol biomarker. The predominantPEth homologues are PEth 16:0/18:1 (POPEth) and PEth 16:0/18:2(PLPEth), which account for 37-46% and 26-28% of the total PEthhomologues, respectively. PEth is incorporated into thephospholipid membrane of red blood cells and has a generalhalf-life of 4-10 days and a window of detection of 2-4 weeks.However, the window of detection is longer in individuals whochronically or excessively consume alcohol. The limit ofquantification is 10 ng/mL. Serial monitoring of PEth may behelpful in monitoring alcohol abstinence over time. PEth resultsshould be interpreted in the context of the patient's clinical andbehavioral history. Patients with advanced liver disease may havefalsely elevated PEth concentrations (Reyna GALLOWAY et al 2018,Alcoholism Clinical & Experimental Research).This test was developed and its performance characteristicsdetermined by [employer]. It has not been cleared orapproved by the U.S. Food and Drug Administration. This test wasperformed in a CLIA-certified laboratory and is intended forclinical purposes. Performed By: #### P ETH ####[facility] LABORATORIESCLIA [id number] [place] [address] PT panel Coag (PPP)on 2022 INR Coag (PPP) [Relative time] 1.3 {INR} Normal 0.9-1.3 [facility] Comment on above: Order Comment: Speci men Type: BLOOD SPECIMENOrdering Facility: [facility] Address: [address] [place] [id number] Result Comment: Binta min K Antagonist (VKA) Therapeutic Range: INR 2 to 3 (Target INR of 2.5)Note: For patients treated with VKA drugs, such as warfarin, the [place] [employer] 2012 Guideline recommends a therapeutic INR range of 2 to 3 (target INR of 2.5). This recommendation includes high-risk patients with antiphospholipid syndrome with previous arterial or venous thromboembolism, current-generation mechanical or bioprosthetic aortic heart valve replacement.Note: Patients with mechanical aortic valve replacement and additional risk factors for thromboembolic events (atrial fibrillation, previous thromboembolism, LV dysfunction, hypercoagulable conditions) or an older generation mechanical AVR (i.e., ball in-Cage) or any mechanical MVR should have a INR therapeutic range of 2.5 to 3.5 (target INR of 3).Robyn ALFORD, et al. Chest 2012, 141:7S-47SSindhu FAUST, et al. [facility] 2017, 70: 252-289 Performed By: #### 3 4528-0 ####[facility] LABCLIA [id number] [place] [address] [place] PT Coag (PPP) [Time] 13.1 s High 9.7-13.0 [facility] Comment on above: Order Comment: Speci men Type: BLOOD SPECIMENOrdering Facility: [facility] Address: [address] [place] [address] Performed By: #### 3 4528-0 ####[facility] LABCLIA [id number] [address] [place] TYPE + SCREENon 11-20-2022 ABO A Normal [facility] Comment on above: Order Comment: Speci men Type: BLOOD SPECIMENOrdering Facility: [facility] Address: [address] [place] [address] Performed By: #### T SCR ####[facility] BLOOD BANKIA [id number] [place] [address] [place] HISTORICAL AB SCR STATUS Negative Normal [facility] Comment on above: Order Comment: Speci men Type: BLOOD SPECIMENOrdering Facility: [facility] Address: [address] [place] [address] Performed By: #### T SCR ####[facility] BLOOD BANKIA [id number] [place] [address] [place] Rh Nom (Bld) Positive Normal [facility] Comment on above: Order Comment: Speci men Type: BLOOD SPECIMENOrdering Facility: [facility] Address: [address] [place], [place] [address] Performed By: #### T SCR ####[facility] BLOOD BANKIA [id number] [place] [address] [place] TYPE AND SCREEN EXPIRATION 11/23/2022 23:59 Normal [facility] Comment on above: Order Comment: Speci men Type: BLOOD SPECIMENOrdering Facility: [facility] Address: [address] [place] [address] Performed By: #### T SCR ####[facility] BLOOD [facility] [id number] [place] [address] [place] US ABD LIVER VASCULARon -3 US ABD LIVER VASCULAR Normal [facility] US DOPPLER COMPLETEon 2022 US DOPPLER COMPLETE Normal [facility] Coding Summary.on 11-12-2022 Coding Summary. CD:[id number] Ww+PGhl YWQ+MY1PZHXpD82lnOPtdC6fH8E MTElOSywgQVBQTElOSyIgbmFtZT 1kaXNjZXJu IC8+YO8gPLFvFiscvMZff9V3vHH 7N57mhz4fGRxkgPB0PWJrSlTlfe qcy6gqiWp5BMjxUuyqZuLd ATGveF56XGX0oJ75Jz25hVNfiUN uu3fskFb0EkHgBJAiMSW9lZtwPH phu8RoSJNgK14ukSHkf1O3 PSUlrExluCVeMjTcaKF8rF1oOMe mdsxlh8htbjswRht8fc15cRCzh3 Z5qEI3M7ZghjT5SPRlnEIc JzooqXVDpF9cyspyn1hrkkpoImD jXKEhFOm7PWi2MLScxXuqBhClLT 81IZG7BDTklxJqI9UsIKMa kHhwRvT7i6H5Mx9CG0UJLgjzA9A NTUFSWTwvdGQ+CP35oo89Q4UlMk puCys3GTCoEQG9fDP9yX3b WCWjRJbig8Q2oEF7F1MpgqXxlc7 cg1qbMGVlNMghA65zqHZvd7B7BE SljBF0XLRyoBqsCvTmcW75 Oyc+CNKsvUjww1UkYusnx8oxj7i dlAn3YtltNRJbigBavJcfESU6x3 TlSt7aZOHnuND7sWI3iP6k FcSpXvP8OIlfZ969WgAmnUGxHcg mS82qU9KeeRD+EQBmQml9OHYvjQ tbGO4aD4YeNXLxqnvabXPu iXonEW1wVBQobpbhRALssK4jOCU oB0x1LsCbWcZ7YJfpG8RzWGBpkf hbHd29jJ4uNpCaCzW4BIdb F7KlbjN2PQSsoPVoPUzuOMP7W27 dp6J6QJYmMVQhAFH9oKO3zL5poI lnbjogbGVmdDsgdmVydGlj SUbhYPpgJ010ODIbiOcmRzHpQXu uZyBEYXRlOiAgMDMvMjIvMjAyMz wvdGQ+UTCeIZC8pZzwZVBw tQOzDKomZe1eeQtfcOxhJB9cRHL jpehqQPAfiF2iZSPteHYexDzuJN 2wTGIjuwwrl469QpZjTNK4 FLSzvLDbQ2HqlE0zQaTxNYAdECQ pC5KegEFtSYjiE053GXfzJfX3VF IfmhDlY6BrBXDqkWyiWvF4 n8X9Nz6Ik6FqxbtfB7JztDErLoL gVfcjYOb0O9LxAyenzWL+PC90YW TeJY45OQk9UEN0fTdcLDhq YGDxZ0WnqL6gMlOaMVRdUQTlDgm +PHRhYmxlIHdpZHRoPScxMDAlJy VimDazYS1pLu3eAYWrEFUi yAxrjSCePpNdc2urTRCyZSvoSG5 bfZkvF3OlrSU1RWEzk8w7Ey69Y0 5dQ9WzjKQ+VOTwbMG9gPT7 wH9hSpYpTpQ7PKeuV355PjImuKP qFgvjq3epa5walBc2HlU9HTOyro OufUyiAIB4f9VsFp73C86f IHdpZHRoPSIxNSUiIHZhbGlnbj0 rlT7wMa2+ROEcqEN0pWE6nP8aPz SxJfG8JRqhW787OnUemWEi Pjqms5nvb5iwiEa3DvTuVUOlkpZ rvDpiOFY4u8SdWn79Z3PsqFeum1 XnImp3ns75vYJti2I8yED9 U4BjBQBqhaiorOBnnRcoUM8sSKF wuotkUUAfxL4vXCNtB2t4FeOnWk M1ZGelN6SumgI0DMZosJQv MSDbyUKQzQ0ustzph6otsynbTiM wELKfVWg2ZZp5BFPakVxdPiVbCO Y2EsZ7ZJJ6fSWrwB6dnHdq twtbkS2xNof+QLT9hFNaxZUXIU8 lOjwvdGQ+PEXpPPL2lZmvJBtbXJ CulY7tIAKpR2b5NvQiEyE1 YPbpH9TuhnO9PXXuuHJzVSFwhBP SvT8hgqytz0rsracxHbMwPOShRV v8ONh5CGYbfUelEiNbGSS6 RnT0KTX8jQCjeR3omIhvplhxfZ1 wOyc+MerrdWoxNDR3YBw3T6GwNh m1XHLsuIcaVC6ylTKfQRir Bq4ngKbwcInnWS0oNTTlxmdsy73 1IdKza5orVPZjrRRuWLuuCRS0G5 6ol9Q5WADmQGMwLGK7xTL6 zF2kjKraksatoCHznWvkhrKycLi nLKviACmaR495FJEsaKgdWnMtMB z5J6SoIzi5LRZipSgcAF1z cECsYXucNd2yjAlupEynIU9qRVZ vcxdrf290WyJxq4cfPIOsiBAqLB yqTGN7L83fm5B9SOVvJWRd BQU2qKB3kC2fcYtbekhgaAZvxVo hbbUjaUlxGZjvAKujX641MCLnsS gfGjDnyKd7V7HfOww7QXRc vHccEQ8peUQgKXfxJh5yjMxycDj kMC1uTFNdlidto721NwCni2nfSQ UvkWKaKEopFIT6C36ks4F4 DRAkWJQlSNX6yWJ1bI7uiYpbzex gbGVmdDsgdmVydGljYWwtYWxpZ2 46IHRvcDsnPlBhdGllbnQg UNlaURw6F2YwBgcgaZT+CN75JQP bBU33dFJpsPFiz0ldwIn1KbCcCF MsCPU0wPjvYZnyk0YzWINx V55xrEDft5Y9BRMabEglgRYtBpQ amNO3cF0oUBzbpwlrj2irskxsWq lyg2ijhh55vZ56B68sIGln PBUtRIWaANRsMYZkjGwayb3cjQ0 wIi8+ZPZymWM5gRP7qI1gKAEtSj T3WMwfX888BjAbaQVvZmcx e0pxn1cbgRo7HjX4QLTfcmMmnXb eZXU4u0EaOw22C02pCNvoZGMyHK JvECPdEHBhsTwzeo2scT3y Ii8+SNSypYF1bNO4vB9qMtVjGqG 1VAmyJ382HmYysZZkPocrE40cU1 JvdXA+CARuNbl4BIKfnPll HQ6pqYDmWOphTi1rGDQ7UnGsTxK xRVujQ5CyNNDgmtxfcqsxpPI6EO OmRVItxY11Qg8noSamDICt aJGWiT4vfnyag5pswlqsPeNnPHE iAEt6RDv9UREuzCynWmFqULD7Mu L5AVV8aFZynG6nlKdijjhz oX0gF2SmPWSidqvhBa36jI3fTnO uSqX0YVkpTcv+SFVOVCwgVEhPTU OWZNe3Q8XlYdf0XDBhrAgb UU6skTHkDWxgCj2goDezeZrpCM4 xQYKqadopTZTdfV4eFLIzmLSaeI arNU3cIYTiytrgv183NmYy MBJ8EWJkrLRpS2FxoP2qJqTtQXN tUOQpN4NspUIgTFawV190VRskGm L8JPOxytVpA2AsDVEupClk VuJ7p7I1Kz7yZB1iOz2lNXpfID2 2DV37rLWla9O7wDW8Q9MsPJMxee apycvwuLD6DKAvMTItaU16 gAHbUKxcRl4qj9B1j694FQCiUYF vnK81Gw2wlIhcGLKkkVSUzL8szx eed1ickjrzLoUfXOBlNHn5 VWx5LHZdeQucVeJuFPB5GrA1IDQ 8nYQhsQ4rkEjrgxuasW1wFyo+ND OoPYMotyS4T2IpQys6JWYx eTqoMZ2tqXPqVGlaSc9bwVdjlWo lIG1qEGYevafbPZSskI8vOBSffD YqcYriXD1oBUSovwnng146 SyBzUTV3SIMirNFdS1YwnH9fLiX uHGIjDDMyY5CmeFNtAKcuH450YJ egQzV1JRBpfxBeG3ReEGMz tCbaTpL1b5K6Tm2INXhaRB02ZB8 2yOVud9I3nRS0M9UzVTDbhidlcu uohJC6MFDrULScjI45rEZr AIpcVj8ax2P3j624CUDvPRYvqU1 3Zn5uzLdyICAmxDGQoW1qyntwm2 amsphoLpYyXYCoBZf0DTg7 HKBmbFbvIiOkKKY9GzJ8VPP3oSQ hvI7xuHxkjdfpuW1zKia+T3V0cG Z0dCIzcMjbjRB+FO10tv92 R5YjSrpuZrg9UYQzWWD0xWO7kJ6 oTSEjSKfyx3T2xER5J0AsvjLtfw 3nv6ofBFWwYBayY11ukEMl s5N4YLNazJI3WJKfiJlkXeIvtU5 3Oyc+OAXnaNvhc8EyFzczo9llg1 ymfPn3YmLrVAPjzwQdcAig ATU1j4ChFl46L20vECyqAYPoNNL dRPDpNOOogQlikt3qtF9rLj2+PG IdwVW5mAW3jN3yLiVkHkV9 STxyD074EdQluLFhPnxor3kya0u tkYy7GrDwXAZieeIxmPleBSX3y2 EjOg25V2FzhEbhv7XbHfl5 eu99mMXtk3Y4mUY6D6NdQVAivoo dpLEhxCmeLS4eNYZalzmrRISdtC 5dFAWkX5k1BxAtBgQ5LLij S5MqgpR9SJKqxEKeECPxzUHIqJ1 uaolrz5gtgyiiAzTfTRSzUEq4VR x4MKGaaCdrMlHyPAA6ExW4 DPW3aKGdkP2ygEniotnppY2tKsc +CIn2b9ndbCGmQG4xnLQ0GQ26XL 60lECko6I6rHN3W0DjRHKq tnuswpwwwJJ7GMBzILRwrX66Qi0 ecGcaGo1yQATiPGK9AQFhtYViZ9 YeoQ9lUbVnCUTvSPIgM7Fa cMNjYEgbC747PBslQaJ8NBDjmhI iR8GoYTUzoMncJdJ5f6Z4Eo9HPN 36ZL23GW55cEMjw0T1gMP5 C5DxVPPmdjxbxjebsVF3DRFiMFQ wrA11Pe3kcXcrNk7rDAGkBDC4XP WfdBIoB2LgqS9rTzTyWARv OAToY1OphLCcUMhuG530NFjtFfZ 5PKOtcuPlJ6AdHCAmlLbmIbL4z5 V8Wo9IVc38MN18JP62lYAd v3K3gIX0P4QsDHMarpwhptdcjMQ 5EGIyDUBilS22Ff3zjAnvPd2bTU QpMHJ8DVHnsCYuI2PdrJ4u OgOiHESyWPUiB6KtwATuLQklK33 3MCttElR0CLBxxuJyF5ZfBYGtzD ogPjV5c7R2Lx0UFStlioj8 D3IjVahbuES+FY05MQVmRK83vXC bsTDtl4qaiDx2DmEuOUEdQRK9yT giHPekf6CbSRIyO26jyCIo z5K4OFLe (more content not included)... Normal [facility] US Abdomen, Limitedon 2022 US Abdomen, Limited Exam Date/Time: 11/04/2022 07:55 EDT Reason for Exam: [id number];Other (please specify) Report IMPRESSION: CIRRHOSIS. GALLBLADDER SLUDGE AND/OR TINY CALCULI, GALLBLADDER DISTENTION, AND MILD GALLBLADDER WALL THICKENING WITHOUT SIGNIFICANT CHANGE. EXAMINATION: US Abdomen, Limited HISTORY: Cirrhosis. COMPARISON: Ultrasound 04/11/2022 TECHNIQUE: Ultrasound evaluation was performed of the right upper quadrant of the abdomen FINDINGS: Nodularity of the contour of the liver. Increased echogenicity of the liver and coarsening of the echotexture. No liver lesion or intrahepatic biliary dilatation identified. Liver length measured at approximately 19.9 cm. The gallbladder is distended measuring approximately 14.4 cm in length. There is echogenic debris is present within the gallbladder. Irregularity of the nondependent inner wall of the gallbladder is nonspecific and may represent cholesterolosis or tiny polyps. The gallbladder wall is mildly thickened measuring approximately 4.3 mm in diameter, which is less thick than on prior examination. No pericholecystic fluid. Common bile duct is normal measuring approximately 4 mm in diameter. The pancreas is poorly Ordering Provider: Frances PEPE FINAL REPORT Dictated: 11/05/2022 10:46 am Jass Campbell DO Signed (Electronic Signature): 11/05/2022 10:46 am Signed by: Jass Campbell DO Transcribed by: LILLI Technologist: HW Normal [facility] Consent for Treatmenton 10-22 Consent for Treatment [id number]:[address] [facility] Lab Miscellaneous-LCon 11-04 Lab Miscellaneous COMMENT Invalid Interpretation Code [facility] Comment on above: Result Comment: Test Ordered: [id number] Phosphatidylethanol (PEth) Phosphatidylethanol (PEth) Negative ng/mL MX Reference Range: NEGATIVE Analyzed compound: PEth 16:0/18:1. 3-eroqimknn-7-fumswh-zj-pssccyh-3-phosphoethanol. Analysis performed by Liquid Chromatography with Tandem Mass Spectrometry (LC/MS/MS). Detection limit: 20 ng/mL PEth levels in excess of 20 ng/mL are considered evidence of moderate to heavy ethanol consumption. However, the Center for Substance Abuse Treatment (CSAT) advises caution in interpretation and use of biomarkers alone to assess alcohol use. Results should be interpreted in the context of all available clinical and behavioral information. Reference: Substance Abuse and Mental Health Services Administration (2012). The Role of Biomarkers in the Treatment of Alcohol Use Disorders , 2012 Revision. Advisory, Volume 11, Issue 2. This test was developed and its performance characteristics determined by [employer]. It has not been cleared or approved by the Food and Drug Administration. Performed at: [facility] [id number] PhD Arcelia Banegas Performed By: #### 1 [id number] ####[address] [place] [address] Coding Summary.on 11-01-2022 Coding Summary. CD:[id number] Gh0bWw+ PGhlYWQ+DR4KVMKuE83hpIIghK2 zT6YJXPmUFdgdOAZMQZaHNuUgfb AcGF1abXJgBNNz IC8+ZI5jTDLpLtrxzMEkj2B7nZZ 5Z04yue8iWUqipHL9EMZgXoHmye vza9mwxTr9KPkgUzplCqSg LWZnhX87LOL5fF56Qp91eOFqjYI ld3njjLc5FfQhEVHiGCF9zIabJH ooa1CfJZWkT64ntVXpj8N7 GMGjfUpxcSAqGuRigWL2eH8rQSw uhxrwn2cokpwfIrf9ke40qJKuv5 W1aUR7I7VdryB5XQBbvAVd UadwwDQSqR5kioccl3pmmwcnOzK jGDCfEHm7TOr7LOXoySucDkYqKW 96VAQ2DEKobmTuA4TvCMHx lSsgOjC7h7O5Pw2ST9LRHqjfO9V NTUFSWTwvdGQ+AA36tf06T9PnPb ntHpn9MRGzGVU9gMC7wE7l RDIqVGjsr4W4nVP1M8DvnsXicp8 qi1alCRKeYYylX08ngRQae1B7AO TrySC3UYLbnFmpLfEwlS45 Oyc+XSNamImac1LoJsuds7mye5u ceJe0JscrGTUtrmSfmOxpLDT5o0 KcVw7lIZWmxUY7oVC0lT4q TwYaBjS1IHexK621GqXrpFNxYoz sC14cL1JrlIM+OYPkQev6KLIvlV znYU7tX3BhSOEtsmacrRSo rXrmIO9uNHVqaqjdWMHfkE6aOVR hD8n1XyRrIwF8DQewD8UpRNQhlj kwZd69kB2jQcFpLdX1KEsz Q7CrhrT7UKAkhHOsQEpeEUW0G20 ak6B8MARjCGGrKZS4hQA1aD7taP lnbjogbGVmdDsgdmVydGlj YIxgMUcdT787HKVyvCveFlDiVLl uZyBEYXRlOiAgMDMvMTEvMjAyMz wvdGQ+NKDwKGN4sDioNZZx tZTaGDctQu8iuXyimMccKM5cVCA ffirnHODvmF1aGWXprXUesIkjTQ 1hUNImqlueo075FzUsSRE0 BUWxlAKdM6PyyN9nAzYfLADxZYK aG4FwrLHzMSakL523OGiwYsH5JV FlwkSdG2GuEEUutIcrJhM3 n2U7Ev0Dg4FaggrdL5FrpWWhTeG mFwklGPw4M8CzFlxgfSF+PC90YW KbFF69OSi7DAR7xEwjNPcw EDFzR0OsvH3hGrHvANTrOGDySyt +PHRhYmxlIHdpZHRoPScxMDAlJy GlwRjzYS7hYq6zTOPuJJIn mCcbwDBhJvExr1dcRTIuWCliZW5 noRkqW3NkqJK4KYNow3b6Xh35C8 4xL7SuqKT+LTIgsOB1rPF1 eL3jIgXpSpJ1UUorN780TcTjbGZ iWxvqf1obj4vdnTl3XoE8MIIgjx LbnEhaGUQ9p1QmXi99B09b IHdpZHRoPSIxNSUiIHZhbGlnbj0 akJ4qVs3+HUAzaAE6yRJ8gS5vIc JmMpD6CNgrY645HiFduLGa Mmlez2hcc7twlDw0TaCrXKRuzxZ tvPdiNMZ7g4GzIr90R2PtaQvsg0 VvXpb8mu25oTZon8K4sPO5 D9GxXZXrnsulbOBbiYelCC1hHRE ucnyhERYvoO1qHSQrN9i0QgCcXi S9NKthC4EmblP7OWJsxBRk IYYaiOOHyW1yagkzm9nbujfzBoF oDVOyAEt5NFl7ADKhsGbxKvBfZQ E5XvM0XGY8zXUmhJ8jvSox eanjqU9vQat+DWP8cUYbzDSCDJ9 lOjwvdGQ+OXTbCQJ7bZksHJgyRV WheG6nINXaH1x5FmMqShF6 MPwgA4EzepQ6UYIleGBnSFGjiCL MxR0eketqr7gpaulnEmVfXYAeNU d2UAl5DTWvjQhnXbSdDDZ6 LeT7EPD7rYEejV7mqGvgsgbxhA8 wOyc+IayynGevNQR9AQw7T3UcFg w8PQXgrXzdUM9hbYJrRYtu Bb1hxExinVqxLN2kAMDkvixel94 8QlTwq8kvMOTtoGLvBPwbKZM5Y2 8nz9H5RUZuYLZeDPZ8hBJ3 gZ0csPjfvnfhyVCccFraczJigCp eQPlfNNseF084KBSbeHakIjYkWE s8P1RkBwi6NYUspRhhLP7b cLJvHKgkYn8uwMxnoQzgRP8uOGX udmhck503XvKbp9nbBFEfxDWoHH qcPXT0I98sf2I3KVJwSVRx ZLU5lYR1tH8idJasfcigzMNidKy ydoOswNbaZRumLUekV324CZWhzZ apYoQhwYr9V3VwNvx0EVSy iQezWO2bvMHjBOsmMb5yaCijoJr nZX9zDGDagnuzk165XhYsz2kvUJ IxmEBtPBgfYML8G09sl3U4 EZFhOUJxSOJ6bHY6eH0foLfuuwj gbGVmdDsgdmVydGljYWwtYWxpZ2 46IHRvcDsnPlBhdGllbnQg TGgtQOt6H6WqImyrjTD+MR39XLO sOQ37jHTjjVLwe0ejvSm3LbMtOO YcEVZ9xYjxEPhxc1PzGTFy O49hcLIdr3A0IXWzvGrzvKWgBhD irFB2iM5kZKgbwprhl1anysxzBg epb9ohee70sB36M98oSSfv OULqVEXyUXUaNXTjaNwgux6beK9 wIi8+MKHlnBT9aGL9wA8dRPBySa H4YYbrT525KtMdnEBuBpev c9jcn3ioyLk8XtH5JYMlsqPczYd kKDL8h0DhZu25I05hEXtlEVEzJK KxLXBiEYGqjYvrww8bcC4c Ii8+NBYcxCJ8sHJ5kM0tIjFgBkP 7JRvcR526GsNiuSVsJefpS63vX9 JvdXA+JQTiTxu8AAAfiTfe KB4tmMBaHZihNl2kDQT2PiMgOvK vPGaeN1ZpCBRklxhgsxrlnVP6WS ZqEESagB24Aw3ffEetRPZo qEYDbI6noldjb8pdnwvtZrObKTA vUEc0FSj0FJQiiQyyMsRvNWA2Tx O6VHT1cUDodO4qxRjwptgp yX9xS8YdLYPyroixEu59tM3uCoV iLkI4CUaxMci+SFVOVCwgVEhPTU CLOBo7C7YjWgb5WRNcrHam YK1kwBQfCGaqCj4jvDkgtLotGP6 dQYXfbitfAHSdzT2qNECbyTFvjJ deQC5sOQQusaaee181UmRb PJA5MGDvxFRfH6TqsG9xXlRbSAP sBRKuD7YeqVKlLReiN031HXzoVx E3OVXxrtNfV9JqSIKxgWoa UcM8v7B6La6rDQ3hMe0fBFvwRJ3 5IK46wHPsz2I2jSK1Q4KgNTVcfk bjduwszNL2OPWqZOPdfI92 hCNqZGhoJc9mj4T1i662BBLiICQ vuF94Lv5oqKrbHXYdgNPArM4bmy trs2pccvalNjGsLULvAKn6 YDn5MZFuhSnzXoJnUCW8CaY1FPO 7lLYtmR9fgTfzwjyriP2uIzo+ND EsXAByaqR1J4XhGff5AUSr nJygJB1ohFShYWqvQp7xzHehcAa mTN2xFOXrlovsEEEzrD9iRWQzmC LdtWjeMX6rYGFadtmrr187 RcHgTUV7WWMgjYBiM9FxrC4yMtJ wXQHvQYChL0NwmNNqJQpuV501YJ beGkA1PQYbyzKuH5UvUAIs zWsnPfS6v1A8Qm2GBIqxOQ30XR0 9sTIpa5N7cYU3P9XtJBTivlwmyw hadOE0HBNeQEHllZ37uWWx TYqlBm4br7R0r618MQDdTOSwkR9 3Oz3vjHzsTRXilYGQdA6wcqcor7 nfjqzwOoVyVZGxBNy4AHi1 WUYxbSvnMkNmSUT7PyS3FAQ6zSX gkQ6rmErbmujkvW5jJpw+T3V0cG F8pJQjbRknhLA+KK17fm92 D7DrFlehFkl9KDCnAZI8xOP5yG7 zWXUbXZmis7Y8uMF2N4ZxzfAjbd 0ue9jrUOYwZLqcQ27ltDEh d7W1FHGzrNT5LRIwwOhmNoTftP0 3Oyc+TIErsZomg2WeNfvos0zfk6 yumOd1BdAzFRRxzuZqbBad KFF5y2LcBs96L27mOFyvRGFiOMO rTJHlQKVkuFqpof8tqI9dZk8+PG ShcJE5iGP2dV8zPlZaPyB9 RFltM576QxPltOUiZmrqm4snc7c ctCq2YvLpBRWcnsQspCkjJTM9n5 QuGo43J3XabBnld6FcHal6 lh82vRRow7J7oBL7Q8RrBDGnmfo nbMAhaRrjGR3tCUZpfjvwNBKinS 2sNRJoE2s5YwPgWaQ1XLco S5JwahR0IGXucUIsFDDyjHVHuP0 uuvqxw1iufwoeNpVgXVKbXQi4UJ z8LCEfcGckXxDoIRV1FmP5 GZJ1nVDawJ8xqAsoxztruU8xClc +WEx9j8zdoLHlVK5tqQY5QE79JE 53dFFjp1N1yID3T8YuFJPd vmptgwebdIT4XWFlPMCrgA99Xi2 mwHcuVo7zRNLgDTD0UESccLWfD1 TclJ3mOoOrHWYnPIUzT5Jr tIErEAbzA934ZUooAcR8DGLqytA gT7WmHYVytBqmRoI9v6I9Jz7IGA 61UE79RH94eWSoi7D5qXH7 J6QkHYHtoleocqtzwLB1KKWfAYY khN30Gh7zrBeeEn2eIPSgFFL1AU TsmGGyG9NndN4uNxGiNVHs BJZuG8XnvPOdWGtgG017QChwNnN 1AVYpcpCvW0NgCVWijXfjJcH0u5 M1Tg8PCb83AU11XN02qGZk v7Q0sOQ4J1JwAFZvpoqtnzzyeJG 6QLVxIGLpjS02Gv8ijNykRg6tYU DxAQB1ASJjiBTtP2PupC9w JkMiXRJuLVByB4HrjXFlXTzmC75 1OMjmPeR5FCJroxUdA0ZgVOZplD vyZpJ8s0N0Hz4DBAuohjj3 M1CaQmrlfZE+OE24CVXsDF53zIE xpNCyc2rxrCq4BfUyCIHjORD5eE bsURbsr8ReNYKzN63koFUa c2U6 (more content not included)... Normal [facility] Coding Summary.on 10-31-2022 Coding Summary. CD:[id number]:[id number] Gh0bWw+ PGhlYWQ+TD1DRKUsO67qbNRjzX8 mJ1TBQMyUHdadEAPHLOzKWtSfaf WzAQ6smYZoCOSp IC8+JU3dIQUvGvomjJKzx7N6lFD 8Z35lck2nJOifyZF3QYMdNiKnsm voa7htpKc0OJchYunkNdKz SXWwnC19TRB3qY28Tr84nOFhsSS nf9ykwEx0EcCuOQZiXBF7aUwmQC kup8VvLJLkA60hiYQfu1A9 HBZznRkkfPFcOzTgbCU8rN9pOPw psiamt4dbehjvUbk3xa29wLXkv3 E3sID6H2KsbjC7DQOwoJVl DenxlXIFlL5exjfmp1kwonvnSyT zBKJwSPn3LUm0SLOlyFqbWjTpBQ 35OGI5ZDYutqWnB1QaOEOe wZfgEjC3b5Q5Yq4DP6ACXxhrO7X NTUFSWTwvdGQ+ML65rf10J8RkEq dvHnv0ABAqYFA6pTN8gH4u IVLbDAqmj8V7lHV2B9LcmaGuxo1 ax9kgOUNnFOeeN77feMYoa0H1BO UpnCR2NGSwgXrmNpEckR39 Oyc+OYMkuOdav4XpSuxoj7xml1h lwWi9KhjvZBXvucEdiLxxWUS1b8 FaMw9aBWWyrLY2bRR2yX5k WfIkGkA3WCzsD092OeJyhTTjCdq pH21fV1TdlBC+MIObRbc1BJGkfN obVZ0bW7SoTBZvvesuvHSg mSwpUR1qUIQpnbmtNLEwgG3gCXI xQ8c8AcSyStJ7PSrzL7UvBQGlun gqSb62nS3xPzBpWzK2QRmz F5QoyqW5AWZfbEPxIJiiMQR9I90 ux9H8DADtRTVcFHU4iZY6lJ7raN lnbjogbGVmdDsgdmVydGlj KSszSUgyE498NZBkmCvgXuDkIFl uZyBEYXRlOiAgMDMvMTAvMjAyMz wvdGQ+BWQxNDM6hGfvORZc nWPyNHlhPd3mdXitjEgcWC4uULD wtrsuNDIjiG0pETJmnGZllRnpZW 7oWMYfaevgi515VaMvMIO5 RTHgpSNfD8IgsP0fHfFqKLXcETZ uS6OuzZEqCXtpX932TUicOvG8RG MfqwTcA0VrDBNtaFjbYaQ1 f8M4Rj8Ym0CfodxqC9DhzGJpCxN lHifbVSt5I7HrSqrsgGI+PC90YW GbZF07MAr6LDV6eFstBQqg FXRgS1WpbK4gQzKeHOKlQMJwOmx +PHRhYmxlIHdpZHRoPScxMDAlJy AcjUhjIW6sOj3rQKBjMADf aKqhoXSdBuWoq4dmBYCiQUvvXG5 mjHhlN5EmyIM8JHDkv4i8Yp17F0 6eA8OrkBR+BQHjwRB9aNL1 rO6kDoEiVbS1QXlgA506QlOleHM nWgdjq1ahm1pmyQa9HrD7LKXviu DknLegIIK1i9XoXv00K31d IHdpZHRoPSIxNSUiIHZhbGlnbj0 dhA3iSu8+KTAwnMO9fAC3aE4qYa YkQvS4QBkbA560LaRemGBs Lkdei7fdj7znzTj7WuNuMSDuolL usLgmOYL9t8KfUg02O4ZtbYnpa4 XfRbp8ce65xBSzd6R1aSP4 O9FcHKXtvpxscHOxuWcvEF7dNHT uommgBPDspV6xFBMkY1q9HlIgBe K9POnmI7OsfbX7LXMyzGIu CDHcpTUWaR6owybpl1tzgzwsBiI gIWEwILo0VIx7AGGwwZaySnAaTN I9EuJ6FQS6qHYjtO0llYlw nadouV6yHmc+KCK6hSHmuKRYVP3 lOjwvdGQ+FQYqCWD4vFvxTFmjIT BblV0qSFAeO2g6LeSzNpJ8 ILsoL4ThvtA1WNNnfVBdADLziNA IpO5vbkyse4xnbpzwEsWaYNLdRM k3JNy7MRMdwAvfYxGzYIP0 ByI4UPE6xOSorI9lnJtlmpcihW3 wOyc+AjjtfWmoORC0CCc9D7YqYi q6RBNrcZdbOK9pqKKpDBmi Da4mrYbudNepRW0rIDLscgdmp63 0JaJds9nvLIVhiBRdHHsbHHW2L3 2rc2C3FPWzLPNlHOZ2lBD2 rS5ksPmpghnykAPzvRifydIheUb pQHdzDAloL873IXEftItwLgVcVL c7G1NgBwc6KTJknEegXT5d fDDeGHqcCs2phYtkpJbtAX6pSFL rzlddk620SoQjj3ymKNFtjPIcRL uoUEH9N57gc2C8YHAxEZUu TFY7iTL4uI0ufXgavqufiZVovNj omcSksNdeKCkjSVztS283BWIidP cmLcUtgBd3E9HcDhy4UOMm iGynYU2rdSMtVQvnXs6bsEjjaLz mYD0lTRKymybgm152BiVgb7fiVG NdgBQrTAncTRZ9J87kn8J4 MHIrKARjHRU2xEF2dT3gcQxxtfh gbGVmdDsgdmVydGljYWwtYWxpZ2 46IHRvcDsnPlBhdGllbnQg JCohXGu0W1EmQackhML+IC88UXV nVB93iUPakLAro5ydkUq6AnIaEJ FgAOF8vSthSVgho6LbFQOo G62aqPOox3S2DPJsoCrxeMSmTdI zbES4bL8pVHagpvdld4ecxqapTk pyf3vavb35bQ40A12nTRcu UQBsRFKeKICsOBVrrDtrsz2lfS8 wIi8+SDMqsBB8cCY6nX6wJCNiNp I0LZwqX054SvFgzMTfLwdi q8rjt8clqJl8UuM3MEHumtRgkVu hHED0o1MhKe35P82gLZxaLTUcYR GlQFHkXRRrdBbaxu7ebT9a Ii8+LWUftLE4xAF7tZ2dGlWmLsK 9PMecM210NcDtaXWtSsuzB26oI0 JvdXA+MJFtFxb9FZZnfWva HM0oyLJhDCnmKw0oUJJ1JqJbVlJ nOJygJ5OlROOwurlarpkwmUH4UC GmIRViyG82Gj4moOrgRCZp wMZAvA9jlxnbp5oivtniYzPkLPR hLVm3LXu3GDExwUruQgOoTBZ5Le X6VFJ8dPEleR1ozKzlutfl dC1oN4HiQZDxwokhXc50lV3bNsE fBiZ7QFwbFuy+SFVOVCwgVEhPTU QBJUp5X5RnYoy0PSMzhSsi TO1yaDShAEyfFa7trLeukXxvHB5 lTRLzifjoHNNsfN6kWGLxaFVlgP gePH8fCPStitxwz020SbBo VJU9OFSdlQXkT2FocS6oGmCdSFV wEQWfX5VxdIVsJOfvR102VUjiHb Q4HNBittVuU9OjKMMkeIkx YdH4h7T1Tz5zOF3tQk6iBBxkPS1 6LA26uILxl4V4oYS2C0BbLTPpue ketwstpAG3BBCzSBNnrB08 hQYmCCsuRp9bi9X6l813JTVcEJR jlA89Fp3ffSzcTUTxvVSBcH6lvq fuz0vguixfMzLnBDNcHUc9 TQw1RSJkjSniPcXvDWS5MvZ8JZQ 0wFOspN9umWspgtcmwA3sCou+ND TiYLWcohK2H2DaFeo9UKXg eLgnAH6ywIHhFRhzJk7mlYigvFk xIZ7fLSYpeijsUMSieH9xQKHlhL XuiZkrRU9yFXLjxvewb733 SlQdVIZ9PNXhwPAoQ8PpeL0nSxY iLGTuILFoF3NhuMIkVAgaC586EQ efBrB4HRUlvrOaZ0LuEVTl rPjbJsS7q1B9Ru5BFDheDE51SL9 6nWJao6I7lFH7D6PqMMGdpkkelz cqkVX9NOEjSAUinL62sGEv GZmwEj6vo0R6h407BNYiCAUsvG0 7Az8jvRxhFUIpnEFNsF9cixecx0 dbjobeXyXtBJUlFMt7EXt9 DULfhEsfVqRyUXV0SvJ7KNG5nEJ txO7yhBwfarkysQ2kDwb+T3V0cG W6tFZvsIlcuCP+PT36rx36 G8NpYvxeHbj8MOHlTTG4zMQ6iV9 sRKGxKKxbu7H0fVL9Y0UkyiZilj 4rm7qoBGFtFHpnF33vzKSg e5E7UHOlyQW9XGTvtJuhFmGtiO0 3Oyc+YNIdcBobt4KiFuule1nte2 tdcXv6SgEpONYocqWljQfp QWX4r0ItRc99P44qFTglQBNiRDX vIJCmJHMkiFyadd7mbG1xUp6+PG VhaQT1vZU2aS3aTwXpGtK3 CUruK622UuBcxASmVzgto2ply3k lfDk2UsHpZOQdqhIeoXkmRJX8u7 XnNr57Z3TgaLtit7OmStg5 ds63lUSts3N5oGB4M9JkTHPiukf xmAOstEktWC6tBVLygfqxVCFtlY 1bBJYxQ2o4YaQaVcB4WXtd F9DdyuU2EBLcmFZkPOMfqYKBzA8 piurfs5ntpmpxZjWwSXHrCFh9ZI i3UCWvkFpxJyGgEMH1CsX0 HCN6dCVjxC3aaIocbmotjL5xIts +JZz7s8wwzBXdKH3obUE2NN80PN 82nDBuw7I3oLZ2E5WmCFMf fjdxvzfsjMC6ASMmTTDjfA92Lw0 maYftAy2cNTGaNUH7BLVszUSvD2 ZdvT7bMdYfLSSzZRRsZ6Lc sXJjWMuoM883XHpvYnM1ULDlwyW eN6GiVRQfqUzpBcL7i2F9Ra6KIX 58HS11OL94yZFvf9W4pTZ2 Z9XtPJGdhpgmtqsdeZB4QYWeHVF yrR57Ny5kyCjjRb1lPZPaYGP1XJ SzxOCbM5IljN2dHbVzBROt NTKjX1FnaFMyHRqjS517KLiaExU 2PQZvrfAoA5QkUVNnpBadEkT7b6 I6Mr9NEh08OW27VK32qUZi q0C9eMB4V9KcWNUceloyshynvZB 0KYHsEMMgoD04Rq9daQbuKq7iVX LmLYR8CNIwvKFxC7AzoQ5n RrJoHKWpSANqS8BlyJXhJKcbR26 0IWzaUyL2NJWyyyKuJ5CyNRVlfB bhAhK0i7S4Pp2XTChzkpt6 M5CoEtqrlDA+DN49NRSpET50qKU kaANan9wgnDs1HuNtKKIhDGR0kR niBPyyd5ZjTYJyQ18ggIQc c2U6 (more content not included)... [facility] Physician Orderon 10-31-2022 Physician Order [id number]#[id number]:127 [facility] Provider Letteron 10-29-2022 Provider Letter (Inserted Image. Moni ble to display) October 29, 2022 KATHY HAYNES [address] [place] [phone] KATHY HAYNES 1980 Dear Kathy Haynes, We have been trying to reach you with no success. It is important that you return our call regarding your lab results upon receiving this letter. Also, at the time of your call, please provide us with your current information. Thank you for your prompt attention to this matter. Sincerely, Chinedu Sethi, [facility] [address] [place] [address] [facility] CHEMISTRYOrdered By: SYSTEM SYSTEM on 10-28-2022 Albumin [Mass/Vol] 3.7 g/dL Normal 3.3 - 5.0 gm/dL [facility] Albumin/Globulin [Mass ratio] 1.1 {ratio} Normal 1.1 - 2.2 [facility] ALP [Catalytic activity/Vol] 103 [iU]/d High 21 - 98 Int._Unit/L [facility] ALT No additional P-5'-P [Catalytic activity/Vol] 26 [iU]/d Normal 6 - 46 Int._Unit/L [facility] AST [Catalytic activity/Vol] 51 [iU]/d High 5 - 43 Int._Unit/L [facility] Bilirubin [Mass/Vol] 6.3 mg/dL High 0.0 - 1 .1 mg/dL [facility] Bilirubin.direct [Mass/Vol] 1.8 mg/dL High 0.1 - 0.4 mg/dL [facility] Remisol Bilirubin.indirect [Mass or moles/Vol] 4.5 mg/dL High 0.1 - 0.9 mg/dL [facility] Remisol Globulin (S) [Mass/Vol] 3.5 g/dL Normal 1.4 - 4.0 gm/dL [facility] Remisol Protein [Mass/Vol] 7.2 g/dL Normal 6.0 - 7.8 gm/dL [facility] Remisol Consent for Treatmenton Consent for Treatment [id number]#[id number]:[address] [facility] Hep Func Panelon 10-28-2022 Albumin [Mass/Vol] 3.7 g/dL Normal 3.3-5.0 [facility] Comment on above: Performed By: #### 2 [id number] ####[facility] [address] [place] [address] Albumin/Globulin (S) [Mass conc ratio] 1.1 Normal 1.1-2.2 [facility] Comment on above: Performed By: #### 2 547886 ####[facility] [address] [place] [address] ALP [Catalytic activity/Vol] 103 Int._Unit/L High 21-98 [facility] Comment on above: Performed By: #### 2 921615 ####[facility] [address] [place] [address] ALT No additional P-5'-P [Catalytic activity/Vol] 26 Int._Unit/L Normal 6-46 [facility] Comment on above: Performed By: #### 2 413455 ####[facility] [address] [place] [address] AST [Catalytic activity/Vol] 51 Int._Unit/L High 5-43 [facility] Comment on above: Performed By: #### 2 125208 ####[facility] [address] [place] [address] Bilirubin [Mass/Vol] 6.3 mg/dL High 0.0-1.1 [facility] Comment on above: Performed By: #### 2 142432 ####[address] [address] Bilirubin.direct [Mass/Vol] 1.8 mg/dL High 0.1-0.4 [facility] Comment on above: Performed By: #### 2 282241 ####[address] [address] Bilirubin.indirect [Mass or moles/Vol] 4.5 mg/dL High 0.1-0.9 [facility] Comment on above: Performed By: #### 2 636220 ####[address] [address] Globulin (S) [Mass/Vol] 3.5 g/dL Normal 1.4-4.0 [facility] Comment on above: Performed By: #### 2 002628 ####[address] [address] Protein [Mass/Vol] 7.2 g/dL Normal 6.0-7.8 [facility] Comment on above: Performed By: #### 2 375843 ####[place] [id number] Lab Miscellaneous-LCon 10-28 Test Code 293495 Invalid Interpretation Code [facility] Comment on above: Performed By: #### 1 [id number] ####[place] [id number] Test Name PEth Invalid Interpretation Code [facility] Comment on above: Performed By: #### 1 [id number] ####[address] [address] Physician Orderon 10-28-2022 Physician Order [id number]#1.00CD:[address] [facility] Reference Laboratory Testing Ordered By: Estelita Reddy on 10-28-2022 Test Code 679510 Invalid Interpretation Code [facility] SendOutsSS Test Name Radha Invalid Interpretation Code [facility] SendOutsSS Auto Diffon 10-23-2022 Basophils/100 WBC (Bld) 1.1 % Normal 0.0-2.0 [facility] Comment on above: Order Comment: Order Added by Discern Expert. Performed By: #### 1 8052456, 0835645, 0995405, 9555187, 6762416 ####[facility] [address] [place] [address] Basophils/Leukocytes Auto (Bld) [Pure # fraction] 0.0 E9/L Normal 0.0-0.2 [facility] Comment on above: Order Comment: Order Added by Discern Expert. Performed By: #### 1 6656537, 9604429, 7612694, 3462430, 3084779 ####[address] [address] Eosinophils/100 WBC (Bld) 2.8 % Normal 0.0-8.0 [facility] Comment on above: Order Comment: Order Added by Discern Expert. Performed By: #### 1 6592750, 6339545, 1826351, 8906537, 3127706 ####[address] [address] Eosinophils/Leukocyt es Auto (Bld) [Pure # fraction] 0.1 E9/L Normal 0.0-0.5 [facility] Comment on above: Order Comment: Order Added by Discern Expert. Performed By: #### 1 3190823, 1414770, 3983861, 5404587, 4187105 ####[place] [address] [place] [address] Lymphocytes/100 WBC (Bld) 23.0 % Normal 14.0-50.0 [facility] Comment on above: Order Comment: Order Added by Discern Expert. Performed By: #### 1 2483451, 0098462, 9313945, 3547809, 1365238 ####[place] [address] [place] [address] Lymphocytes/Leukocyt es Auto (Bld) [Pure # fraction] 1.0 E9/L Normal 1.0-4.0 [facility] Comment on above: Order Comment: Order Added by Discern Expert. Performed By: #### 1 8266060, 4041663, 3843129, 6847808, 9561687 ####[facility] [address] [place] [address] Monocytes/100 WBC (Bld) 11.8 % Normal 4.0-14.0 [facility] Comment on above: Order Comment: Order Added by Discern Expert. Performed By: #### 1 8251066, 4168839, 1277149, 1172174, 3395241 ####[place] [address] [place] [address] Monocytes/Leukocytes Auto (Bld) [Pure # fraction] 0.5 E9/L Normal 0.2-1.0 [facility] Comment on above: Order Comment: Order Added by Discern Expert. Performed By: #### 1 7351895, 3351203, 4157436, 4933741, 2373912 ####[place] [address] [place] [address] Neutrophils/100 WBC (Bld) 61.3 % Normal 36.0-75.0 [facility] Comment on above: Order Comment: Order Added by Discern Expert. Performed By: #### 1 5434320, 6579395, 0426039, 2639582, 4704387 ####[place] [address] [place] [address] Neutrophils/Leukocyt es Auto (Bld) [Pure # fraction] 2.8 E9/L Normal 2.0-7.5 [facility] Comment on above: Order Comment: Order Added by Discern Expert. Performed By: #### 1 8963755, 3395900, 7420725, 3402227, 6514565 ####[place] [address] [place] [address] BMPon 10-23-2022 Anion gap [Moles/Vol] 9 mmol/L Normal 6-16 [facility] Comment on above: Performed By: #### 1 8640358, 2233243, 6270666, 5292995, 4742314 ####[facility] [address] [place] [address] Calcium [Mass/Vol] 9.2 mg/dL Normal 8.9-11.1 [facility] Comment on above: Performed By: #### 1 9937650, 8996725, 1389023, 9775327, 9081194 ####[facility] [address] [place] [address] Chloride [Moles/Vol] 98 mmol/L Low 101-111 [facility] Comment on above: Performed By: #### 1 7060501, 2264341, 5133920, 6971200, 8064535 ####[facility] [address] [place] [address] CO2 [Moles/Vol] 28 mmol/L Normal 21-31 [facility] Comment on above: Performed By: #### 1 5174873, 9739485, 4430277, 2804993, 3265164 ####[facility] [address] [place] [address] Creatinine [Mass/Vol] 0.9 mg/dL Normal 0.5-1.3 [facility] Comment on above: Performed By: #### 1 8703954, 9814297, 8167142, 2038115, 9905874 ####[facility] [address] [place] [address] Glucose [Mass/Vol] 115 mg/dL Normal 55-199 [facility] Comment on above: Result Comment: If t his glucose result represents a fasting glucose, interpretation should refer to the following reference range: 55-99 mg/dL Performed By: #### 1 5498809, 3565396, 2482120, 8550948, 4980923 ####[facility] [address] [place] [address] Potassium [Moles/Vol] 4.3 mmol/L Normal 3.5-5.3 [facility] Comment on above: Performed By: #### 1 1127391, 9388301, 5164916, 8920831, 0952570 ####[facility] [address] [place] [address] Sodium [Moles/Vol] 131 mmol/L Low 135-145 [facility] Comment on above: Performed By: #### 1 2950088, 6563144, 2870259, 7620558, 5631457 ####[facility] [address] [place] [address] Urea nitrogen [Mass/Vol] 11 mg/dL Normal 5-21 [facility] Comment on above: Performed By: #### 1 7670372, 6520583, 2572429, 1943732, 5051578 ####[facility] [address] [place] [address] Urea nitrogen/Creatinine [Mass ratio] 12 No Units Normal 10-20 [facility] Comment on above: Performed By: #### 1 1198791, 8901196, 1594378, 8981581, 6961141 ####[facility] [address] [place] [address]44157 CBC w/ Auto Diffon 3 Erythrocyte distribution width (RBC) [Ratio] 14.5 % High 10.9-14.2 [facility] Comment on above: Performed By: #### 1 4969644, 6596379, 8687345, 3959689, 4830894 ####[facility] [address] [place] [address] Hematocrit (Bld) [Volume fraction] 38.7 % Normal 37.7-49.0 [facility] Comment on above: Performed By: #### 1 4810025, 7580060, 6383095, 9313396, 3538808 ####[facility] [address] [place] [address] Hemoglobin (Bld) [Mass/Vol] 13.4 g/dL Low 13.5-17.5 [facility] Comment on above: Performed By: #### 1 4373007, 8859659, 5123843, 5712401, 1682295 ####[facility] [address] [place] [address] MCH (RBC) [Entitic mass] 36.1 pg High 27.0-34.0 [facility] Comment on above: Performed By: #### 1 0146724, 4051003, 9945923, 6128169, 9096148 ####[facility] [address] [place] [address] MCHC (RBC) [Mass/Vol] 34.7 g/dL Normal 31.4-36.0 [facility] Comment on above: Performed By: #### 1 5775843, 0290481, 0960763, 9923491, 0900090 ####[place] [address] [place] [address] MCV (RBC) [Entitic vol] 104.0 fL High 80.0-100.0 [facility] Comment on above: Performed By: #### 1 8961476, 8269189, 5354741, 1998826, 1305644 ####[address] [address] Platelet mean volume (Bld) [Entitic vol] 7.3 fL Normal 6.4-10.8 [facility] Comment on above: Performed By: #### 1 7623565, 0211095, 6786705, 0075730, 1596940 ####[address] [address] Platelets (Bld) [#/Vol] 85.0 E9/L Low 150.0-500.0 [facility] Comment on above: Result Comment: Plat elet count verified using smear estimate Results Verified By Repeat Analysis Slide reviewed by BR. Performed By: #### 1 2382889, 3478335, 1241708, 9729938, 1800410 ####[place] [address] [place] [address] RBC (Bld) [#/Vol] 3.7 E12/L Low 4.3-5.9 [facility] Comment on above: Performed By: #### 1 4376258, 5437302, 3288798, 4554290, 7919825 ####[address] [place] [address] WBC corrected for nucl RBC Auto (Bld) [#/Vol] 4.5 E9/L Normal 4.0-11.0 [facility] Comment on above: Performed By: #### 1 4821547, 9390540, 3624861, 8507385, 8044210 ####[facility] [address] [place] [address] CHEMISTRYOrdered By: SYSTEM SYSTEM on 10-23-2022 Anion gap [Moles/Vol] 9 mmol/L Normal 6 - 16 mEq/L [facility] Calcium [Mass/Vol] 9.2 mg/dL Normal 8.9 - 11. 1 mg/dL [facility] Chloride [Moles/Vol] 98 mmol/L Low 101 - 1 11 mmol/L [facility] CO2 [Moles/Vol] 28 mmol/L Normal 21 - 31 mmol/L [facility] Creatinine [Mass/Vol] 0.9 mg/dL Normal 0.5 - 1.3 mg/dL [facility] GFR/1.73 sq M.predicted among blacks MDRD (S/P/Bld) [Vol rate/Area] mL/min/1.73 m2 Normal >=59mL/min/1 .73 m2 [facility] Chem S GFR/1.73 sq M.predicted among non-blacks MDRD (S/P/Bld) [Vol rate/Area] mL/min/1.73 m2 Normal >=59mL/min/1 .73 m2 [facility] Chem S Glucose [Mass/Vol] 115 mg/dL Normal 55 - 199 mg/dL [facility] Potassium [Moles/Vol] 4.3 mmol/L Normal 3.5 - 5.3 mmol/L [facility] Sodium [Moles/Vol] 131 mmol/L Low 135 - 145 mmol/L [facility] Urea nitrogen [Mass/Vol] 11 mg/dL Normal 5 - 21 mg/dL [facility] Urea nitrogen/Creatinine [Mass ratio] 12 mg/mg Normal 10 - 20 [facility] COAGULATIONOrdered By: Lester Martínez on 10-23-2022 INR Coag (PPP) [Relative time] 1.8 {INR} Invalid Interpretation Code [facility] Auto Coag PT Coag (PPP) [Time] 20.0 s High 9.4 - 1 2.5 second(s) [facility] Auto Coag Consent for Treatmenton Consent for Treatment [id number]#1.00CD:[address] [facility] HEMATOLOGYOrdered By: SYSTEM SYSTEM on 10-23-2022 Basophils/100 WBC (Bld) 1.1 % Normal 0.0 - 2.0 % [facility] HemeAutoSS Basophils/Leukocytes Auto (Bld) [Pure # fraction] 0.0 E9/L Normal 0.0 - 0.2 E9/L [facility] HemeAutoSS Eosinophils/100 WBC (Bld) 2.8 % Normal 0.0 - 8.0 % [facility] Eosinophils/Leukocyt es Auto (Bld) [Pure # fraction] 0.1 E9/L Normal 0.0 - 0.5 E9/L [facility] Lymphocytes/100 WBC (Bld) 23.0 % Normal 14.0 - 50.0 % [facility] Lymphocytes/Leukocyt es Auto (Bld) [Pure # fraction] 1.0 E9/L Normal 1.0 - 4.0 E9/L [facility] Monocytes/100 WBC (Bld) 11.8 % Normal 4.0 - 14.0 % [facility] Monocytes/Leukocytes Auto (Bld) [Pure # fraction] 0.5 E9/L Normal 0.2 - 1.0 E9/L [facility] Neutrophils/100 WBC (Bld) 61.3 % Normal 36.0 - 75.0 % [facility] Neutrophils/Leukocyt es Auto (Bld) [Pure # fraction] 2.8 E9/L Normal 2.0 - 7.5 E9/L [facility] HEMATOLOGYOrdered By: Peri Washington on 10-23-2022 Erythrocyte distribution width (RBC) [Ratio] 14.5 % High 10.9 - 14.2 % [facility] Hematocrit (Bld) [Volume fraction] 38.7 % Normal 37.7 - 49.0 % [facility] Hemoglobin (Bld) [Mass/Vol] 13.4 g/dL Low 13.5 - 17.5 gm/dL [facility] MCH (RBC) [Entitic mass] 36.1 pg High 27.0 - 34.0 pg [facility] MCHC (RBC) [Mass/Vol] 34.7 g/dL Normal 31.4 - 36.0 gm/dL [facility] MCV (RBC) [Entitic vol] 104.0 fL High 80.0 - 100.0 fL [facility] Platelet mean volume (Bld) [Entitic vol] 7.3 fL Normal 6.4 - 10.8 fL [facility] Platelets (Bld) [#/Vol] 85.0 E9/L Low 150.0 - 500.0 E9/L [facility] Comment on above: Result Comment: Plat elet count verified using smear estimate Results Verified By Repeat Analysis Slide reviewed by BR. RBC (Bld) [#/Vol] 3.7 E12/L Low 4.3 - 5.9 E12/L [facility] WBC corrected for nucl RBC Auto (Bld) [#/Vol] 4.5 E9/L Normal 4.0 - 11.0 E9/L [facility] PTon 10-23-2022 INR Coag (PPP) [Relative time] 1.8 {INR} Invalid Interpretation Code [facility] Comment on above: Result Comment: INR results are specifically intended to assess patients stabilized on long-term Anticoagulation therapy suggested INR?s ?Less Intensive Anticoagulation? 2.0 ? 3.0 Conventional Range 3.0 ? 4.5 Performed By: #### 1 [id number] ####[facility] [address] [place] [address] PT Coag (PPP) [Time] 20.0 second(s) High 9.4-12.5 [facility] Comment on above: Result Comment: 15 d ays - 4 weeks 1 - 5 months 6 -11 months 1- 5 years 6-10 years 11 -17 years Mean: 11.2 (9.5-12.6) Mean: 11.0 (9.7-12.8) Mean: 11.0 (9.8-13.0) Mean: 11.3 (9.9-13.4) Mean: 11.7 (10.0-14.6) Mean: 11.8 (10.0 - 14.1) Pediatric Reference ranges were obtained from a study by daarsh Saul al. prepared from 1437 samples obtained at 7 different centers using the same coagulation reagent and instrumentation as [facility]. Currently there are no coagulation studies available worldwide for children to 14 days, and no normal ranges. Performed By: #### 1 [id number] ####[facility] [address] [place] [address] Physician Orderon 10-23-2022 Physician Order [id number]#1.00CD:[address] [facility] eGFRon 10-23-2022 GFR/1.73 sq M.predicted among blacks MDRD (S/P/Bld) [Vol rate/Area] mL/min/{1.73_m2} Normal >=59 [facility] Comment on above: Order Comment: Order added by Discern Expert. Result Comment: eGFR is race adjusted. AA=. Performed By: #### 1 [id number] ####[facility] [address] [place] [address] GFR/1.73 sq M.predicted among non-blacks MDRD (S/P/Bld) [Vol rate/Area] mL/min/{1.73_m2} Normal >=59 [facility] Comment on above: Order Comment: Order added by Discern Expert. Result Comment: Marketing Production Manager nishi kidney disease could be indicated at eGFR's of less than 60 mL/min/1.73m2. Kidney failure is indicated at less than 15 mL/min/1.73m2. Performed By: #### 1 [id number] ####[facility] [address] [place] [address] CNSWon 10-20-2022 CNSW Normal [facility] CNPNon 10-08-2022 CNPN [facility] CHEMISTRYOrdered By: iStreamPlan[employer] SYSTEM on 07-31-2022 Albumin [Mass/Vol] 4.0 g/dL Normal 3.3 - 5.0 gm/dL [facility] Remisol Albumin/Globulin [Mass ratio] 1.1 {ratio} Normal 1.1 - 2.2 [facility] Rem[facility] ALP [Catalytic activity/Vol] 118 [iU]/d High 21 - 98 Int._Unit/L [facility] Remisol ALT No additional P-5'-P [Catalytic activity/Vol] 23 [iU]/d Normal 6 - 46 Int._Unit/L [facility] Remisol AST [Catalytic activity/Vol] 49 [iU]/d High 5 - 43 Int._Unit/L [facility] Bilirubin [Mass/Vol] 5.4 mg/dL High 0.0 - 1 .1 mg/dL [facility] Bilirubin.direct [Mass/Vol] 1.8 mg/dL High 0.1 - 0.4 mg/dL [facility] Bilirubin.indirect [Mass or moles/Vol] 3.6 mg/dL High 0.1 - 0.9 mg/dL [facility] Globulin (S) [Mass/Vol] 3.7 g/dL Normal 1.4 - 4.0 gm/dL [facility] Protein [Mass/Vol] 7.7 g/dL Normal 6.0 - 7.8 gm/dL [facility] COAGULATIONOrdered By: Kane Light on 07-31-2022 aPTT Coag (PPP) [Time] 40.3 s High 25.1 - 36.5 second(s) [facility] Auto Coag INR Coag (PPP) [Relative time] 1.6 {INR} Invalid Interpretation Code [facility] Auto Coag PT Coag (PPP) [Time] 18.7 s High 9.4 - 1 2.5 second(s) [facility] Auto Coag Laboratory - Chemistry and C hemistry - challengeOrdered By: [employer]StreamPlan[employer] SYSTEM on 07-03-2022 Ferritin [Mass/Vol] 523 ng/mL High 24 - 336 ng/mL [facility] Rem[facility] Iron [Mass/Vol] 192 ug/dL High 35 - 153 mcg/dL [facility] Iron binding capacity [Mass/Vol] 223 ug/dL Low 250 - 400 mcg/dL [facility] Transferrin [Mass/Vol] 160 mg/dL Low 200 - 370 mg/dL [facility] Remisol No Panel InformationOrdered By: Generated DomainUser on 07-03-2022 Lab Miscellaneous COMMENT Invalid Interpretation Code [facility] Comment on above: Result Comment: Test Ordered: [id number] Hered.Hemochromatosis, DNA Hereditary Hemochromatosis Comment TG Result: c.845G>A (p.[id number]) - Not Detected c.187C>G (p.Mmi08Zmu) - Not Detected c.193A>T (p.Zyl23Gak) - Not Detected Not associated with increased risk to develop clinical symptoms of Hereditary Hemochromatosis. In symptomatic individuals, other causes of iron overload should be evaluated. See Additional Information and Comments. Additional Clinical Information: Hereditary hemochromatosis (HFE related) is an autosomal recessive iron storage disorder. Patients may have a genetic diagnosis of hereditary hemochromatosis and never show clinical symptoms. Clinical symptoms typically appear between 40 to 60 years in males and after menopause in females. Signs and symptoms may include organ damage, primarily in the liver, risk for hepatocellular carcinoma, diabetes, and heart disease due to iron accumulation. Life expectancy may be decreased in individuals who develop cirrhosis. Treatment for clinically symptomatic individuals may include therapeutic phlebotomy. Liver transplant may be used to treat end stage liver failure. For preventive care, monitoring for iron overload is recommended for patients who are homozygous for c.845G>A (p.[id number]) and have yet to experience clinical symptoms. Comments: The most common HFE variants associated with hereditary hemochromatosis are c.845G>A (p.Cwy251Nsu), c.187C>G (p.Rbt08Ezp), c.193A>T (p.Umz29Sea). While patients homozygous for c.845G>A (p.[id number]) are the most likely to present clinical symptoms, less than 10% develop clinically significant iron overload with tissue and organ damage. Genetic counseling is recommended to discuss the potential clinical implications of positive results, as well as recommendations for testing family members. Genetic Coordinators are available for health care providers to discuss results at [phone] Test Details: Three variants analyzed: c.845G>A (p.Cfp252Cjp), commonly referred to as C282Y c.187C>G (p.Gid11Yxb), commonly referred to as H63D c.193A>T (p.Adb88Xqh), commonly referred to as S65C Methods/Limitations: DNA Analysis of the HFE gene ([id number]) was performed by PCR amplification followed by restriction enzyme digestion analyses. Results must be combined with clinical information for the most accurate interpretation. Molecular-based testing is highly accurate, but as in any laboratory test, diagnostic errors may occur. False positive or false negative results may occur for reasons that include genetic variants, blood transfusions, bone marrow transplantation, somatic or tissue-specific mosaicism, mislabeled samples, or erroneous representation of family relationships. This test was developed and its performance characteristics determined by [facility]. It has not been cleared or approved by the Food and Drug Administration. References: Chuy BR, Joshua PC, Chance KV, Farooq LW, Rodrigo ; [place] [employer]. Diagnosis and management of hemochromatosis: 2011 practice guideline by the [place] [employer]. Hepatology. 2010;54(1):328-43. doi: 10.1002/hep.22049. PMID: 47302069; PMCID: OUV3822201. Rajeev G, Eze P, Erika DW, Carrie H, Dawn O, Felipe S, Robles I, Judson M, Fede S. [facility] best practice guidelines for the molecular genetic diagnosis of hereditary hemochromatosis (HH). Eur J Hum Radha. 2016 Nov;24(4):479-95. doi: 10.1038/ejhg.2015.128. Epub 2014Feb 28. PMID: 93450628; PMCID: [id number]. Nadira Campoverde, PhD, FACMG Keo Root, PhD Nickolas Pereira, PhD, FACMG Tai Jensen, PhD, FACMG Carlitos Mckeon, PhD, FACMG Mauricio Salmon, PhD, FACMG Wanda Sorto, PhD, FACMG Sakina Delgado, PhD, FACMG Performed at: [address] [id number] PhD Arcelia Pinedo Panel InformationOrdered By: Aminah Jean on 07-03-2022 Test Code [id number] Invalid Interpretation Code [facility] SendOutsSS Test Name Hemochromotosis Invalid Interpretation Code [facility] CHEMISTRYOrdered By: SYSTEM SYSTEM on 06-19-2022 CRP [Mass/Vol] mg/dL Normal <=1.9mg/dL [facility] Remisol CHEMISTRYOrdered By: Eric Chu on 06-19-2022 HbA1c (Bld) [Mass fraction] 4.0 % Normal <=5.9% [facility] ChemAutoSS HEMATOLOGYOrdered By: SYSTEM SYSTEM on 06-19-2022 Basophils/100 WBC (Bld) 0.8 % Normal 0.0 - 2.0 % [facility] Basophils/Leukocytes Auto (Bld) [Pure # fraction] 0.0 E9/L Normal 0.0 - 0.2 E9/L [facility] Eosinophils/100 WBC (Bld) 4.6 % Normal 0.0 - 8.0 % [facility] Eosinophils/Leukocyt es Auto (Bld) [Pure # fraction] 0.2 E9/L Normal 0.0 - 0.5 E9/L [facility] Lymphocytes/100 WBC (Bld) 38.5 % Normal 14.0 - 50.0 % [facility] Lymphocytes/Leukocyt es Auto (Bld) [Pure # fraction] 1.5 E9/L Normal 1.0 - 4.0 E9/L [facility] Monocytes/100 WBC (Bld) 10.4 % Normal 4.0 - 14.0 % [facility] Monocytes/Leukocytes Auto (Bld) [Pure # fraction] 0.4 E9/L Normal 0.2 - 1.0 E9/L [facility] Neutrophils/100 WBC (Bld) 45.7 % Normal 36.0 - 75.0 % [facility] Neutrophils/Leukocyt es Auto (Bld) [Pure # fraction] 1.8 E9/L Low 2.0 - 7.5 E9/L [facility] HEMATOLOGYOrdered By: Zoraida Hylton on 06-19-2022 Erythrocyte distribution width (RBC) [Ratio] 14.4 % High 10.9 - 14.2 % [facility] Hematocrit (Bld) [Volume fraction] 31.9 % Low 37.7 - 49.0 % [facility] Hemoglobin (Bld) [Mass/Vol] 11.2 g/dL Low 13.5 - 17.5 gm/dL [facility] MCH (RBC) [Entitic mass] 36.3 pg High 27.0 - 34.0 pg [facility] MCHC (RBC) [Mass/Vol] 35.0 g/dL Normal 31.4 - 36.0 gm/dL [facility] MCV (RBC) [Entitic vol] 103.7 fL High 80.0 - 100.0 fL [facility] Platelet mean volume (Bld) [Entitic vol] 7.2 fL Normal 6.4 - 10.8 fL [facility] Platelets (Bld) [#/Vol] 83.0 E9/L Low 150.0 - 500.0 E9/L [facility] Comment on above: Result Comment: Slid e reviewed by KD. RBC (Bld) [#/Vol] 3.1 E12/L Low 4.3 - 5.9 E12/L [facility] WBC corrected for nucl RBC Auto (Bld) [#/Vol] 4.0 E9/L Normal 4.0 - 11.0 E9/L [facility] Laboratory - Chemistry and C hemistry - challengeOrdered By: SYSTEM SYSTEM on 06-06-2022 Albumin [Mass/Vol] 3.6 g/dL Normal 3.3 - 5.0 gm/dL [facility] Albumin/Globulin [Mass ratio] 0.8 {ratio} Low 1.1 - 2.2 [facility] ALP [Catalytic activity/Vol] 114 [iU]/d High 21 - 98 Int._Unit/L [facility] ALT No additional P-5'-P [Catalytic activity/Vol] 23 [iU]/d Normal 6 - 46 Int._Unit/L [facility] AST [Catalytic activity/Vol] 57 [iU]/d High 5 - 43 Int._Unit/L [facility] Bilirubin [Mass/Vol] 5.7 mg/dL High 0.0 - 1 .1 mg/dL [facility] Bilirubin.direct [Mass/Vol] 2.1 mg/dL High 0.1 - 0.4 mg/dL [facility] Bilirubin.indirect [Mass or moles/Vol] 3.6 mg/dL High 0.1 - 0.9 mg/dL [facility] Globulin (S) [Mass/Vol] 4.4 g/dL High 1.4 - 4.0 gm/dL [facility] Protein [Mass/Vol] 8.0 g/dL High 6.0 - 7.8 gm/dL [facility] Laboratory - CoagulationOrde red By: Sherine Case on 06-06-2022 aPTT Coag (PPP) [Time] 40.3 s High 25.1 - 36.5 second(s) [facility] INR Coag (PPP) [Relative time] 1.3 {INR} Invalid Interpretation Code [facility] PT Coag (PPP) [Time] 15.1 s High 9.4 - 1 2.5 second(s) [facility] Laboratory - Chemistry and C hemistry - challengeOrdered By: SYSTEM SYSTEM on 05-30-2022 Albumin [Mass/Vol] 3.3 g/dL Normal 3.3 - 5.0 gm/dL [facility] Albumin/Globulin [Mass ratio] 0.8 {ratio} Low 1.1 - 2.2 [facility] ALP [Catalytic activity/Vol] 100 [iU]/d High 21 - 98 Int._Unit/L [facility] ALT No additional P-5'-P [Catalytic activity/Vol] 22 [iU]/d Normal 6 - 46 Int._Unit/L [facility] AST [Catalytic activity/Vol] 56 [iU]/d High 5 - 43 Int._Unit/L [facility] Bilirubin [Mass/Vol] 6.8 mg/dL High 0.0 - 1 .1 mg/dL [facility] Bilirubin.direct [Mass/Vol] 2.4 mg/dL High 0.1 - 0.4 mg/dL [facility] Bilirubin.indirect [Mass or moles/Vol] 4.4 mg/dL High 0.1 - 0.9 mg/dL [facility] Globulin (S) [Mass/Vol] 4.3 g/dL High 1.4 - 4.0 gm/dL [facility] Protein [Mass/Vol] 7.6 g/dL Normal 6.0 - 7.8 gm/dL [facility] Laboratory - CoagulationOrde red By: Maggy Chu on 05-30-2022 aPTT Coag (PPP) [Time] 40.6 s High 25.1 - 36.5 second(s) [facility] INR Coag (PPP) [Relative time] 1.7 {INR} Invalid Interpretation Code [facility] PT Coag (PPP) [Time] 19.5 s High 9.4 - 1 2.5 second(s) [facility] Laboratory - Chemistry and C hemistry - challengeOrdered By: SYSTEM SYSTEM on 05-21-2022 Albumin [Mass/Vol] 3.4 g/dL Normal 3.3 - 5.0 gm/dL [facility] Albumin/Globulin [Mass ratio] 0.8 {ratio} Low 1.1 - 2.2 [facility] ALP [Catalytic activity/Vol] 102 [iU]/d High 21 - 98 Int._Unit/L [facility] ALT No additional P-5'-P [Catalytic activity/Vol] 18 [iU]/d Normal 6 - 46 Int._Unit/L [facility] AST [Catalytic activity/Vol] 52 [iU]/d High 5 - 43 Int._Unit/L [facility] Bilirubin [Mass/Vol] 5.3 mg/dL High 0.0 - 1 .1 mg/dL [facility] Bilirubin.direct [Mass/Vol] 2.0 mg/dL High 0.1 - 0.4 mg/dL [facility] Bilirubin.indirect [Mass or moles/Vol] 3.3 mg/dL High 0.1 - 0.9 mg/dL [facility] Globulin (S) [Mass/Vol] 4.5 g/dL High 1.4 - 4.0 gm/dL [facility] Protein [Mass/Vol] 7.9 g/dL High 6.0 - 7.8 gm/dL [facility] Laboratory - CoagulationOrde red By: Tonya Washington on 05-21-2022 aPTT Coag (PPP) [Time] 40.2 s High 25.1 - 36.5 second(s) [facility] INR Coag (PPP) [Relative time] 1.7 {INR} Invalid Interpretation Code [facility] PT Coag (PPP) [Time] 18.9 s High 9.4 - 1 2.5 second(s) [facility] No Panel Informationon 05-13 [facility] CHEMISTRYOrdered By: SYSTEM SYSTEM on 04-24-2022 Albumin [Mass/Vol] 2.6 g/dL Low 3.3 - 5.0 gm/dL [facility] Albumin/Globulin [Mass ratio] 0.5 {ratio} Low 1.1 - 2.2 [facility] ALP [Catalytic activity/Vol] 113 [iU]/d High 21 - 98 Int._Unit/L [facility] ALT No additional P-5'-P [Catalytic activity/Vol] 22 [iU]/d Normal 6 - 46 Int._Unit/L [facility] AST [Catalytic activity/Vol] 64 [iU]/d High 5 - 43 Int._Unit/L [facility] Bilirubin [Mass/Vol] 8.9 mg/dL High 0.0 - 1 .1 mg/dL [facility] Bilirubin.direct [Mass/Vol] 3.9 mg/dL High 0.1 - 0.4 mg/dL [facility] Bilirubin.indirect [Mass or moles/Vol] 5.0 mg/dL High 0.1 - 0.9 mg/dL [facility] Globulin (S) [Mass/Vol] 4.8 g/dL High 1.4 - 4.0 gm/dL [facility] Protein [Mass/Vol] 7.4 g/dL Normal 6.0 - 7.8 gm/dL [facility] COAGULATIONOrdered By: Lester Martínez on 04-24-2022 INR Coag (PPP) [Relative time] 1.8 {INR} Invalid Interpretation Code [facility] PT Coag (PPP) [Time] 20.8 s High 9.4 - 1 2.5 second(s) [facility] HEMATOLOGYOrdered By: Conchita Hazel on 04-24-2022 Sed Rate Automated 57 mm/h High 0 - 19 mm/hr [facility] HemeAutoSS CHEMISTRYOrdered By: SYSTEM SYSTEM on 04-17-2022 Albumin [Mass/Vol] 2.7 g/dL Low 3.3 - 5.0 gm/dL [facility] Albumin/Globulin [Mass ratio] 0.6 {ratio} Low 1.1 - 2.2 [facility] ALP [Catalytic activity/Vol] 130 [iU]/d High 21 - 98 Int._Unit/L [facility] ALT No additional P-5'-P [Catalytic activity/Vol] 27 [iU]/d Normal 6 - 46 Int._Unit/L [facility] Anion gap [Moles/Vol] 13 mmol/L Normal 6 - 16 mEq/L [facility] AST [Catalytic activity/Vol] 79 [iU]/d High 5 - 43 Int._Unit/L [facility] Bilirubin [Mass/Vol] 13.3 mg/dL High 0.0 - 1 .1 mg/dL [facility] Calcium [Mass/Vol] 9.1 mg/dL Normal 8.9 - 11. 1 mg/dL [facility] Chloride [Moles/Vol] 99 mmol/L Low 101 - 1 11 mmol/L [facility] CO2 [Moles/Vol] 28 mmol/L Normal 21 - 31 mmol/L [facility] Creatinine [Mass/Vol] 0.6 mg/dL Normal 0.5 - 1.3 mg/dL [facility] GFR/1.73 sq M.predicted among blacks MDRD (S/P/Bld) [Vol rate/Area] mL/min/1.73 m2 Normal >=59mL/min/1 .73 m2 [facility] S GFR/1.73 sq M.predicted among non-blacks MDRD (S/P/Bld) [Vol rate/Area] mL/min/1.73 m2 Normal >=59mL/min/1 .73 m2 [facility] S Globulin (S) [Mass/Vol] 4.6 g/dL High 1.4 - 4.0 gm/dL [facility] Glucose [Mass/Vol] 96 mg/dL Normal 55 - 199 mg/dL [facility] Potassium [Moles/Vol] 4.0 mmol/L Normal 3.5 - 5.3 mmol/L [facility] Protein [Mass/Vol] 7.3 g/dL Normal 6.0 - 7.8 gm/dL [facility] Sodium [Moles/Vol] 136 mmol/L Normal 135 - 145 mmol/L [facility] Urea nitrogen [Mass/Vol] 9 mg/dL Normal 5 - 21 mg/dL [facility] Urea nitrogen/Creatinine [Mass ratio] 15 mg/mg Normal 10 - 20 [facility] COAGULATIONOrdered By: Kane Light on 04-17-2022 INR Coag (PPP) [Relative time] 1.8 {INR} Invalid Interpretation Code [facility] PT Coag (PPP) [Time] 20.3 s High 9.4 - 1 2.5 second(s) [facility] CHEMISTRYOrdered By: SYSTEM SYSTEM on 04-14-2022 ALP [Catalytic activity/Vol] 121 [iU]/d High 21 - 98 Int._Unit/L [facility] ALT No additional P-5'-P [Catalytic activity/Vol] 23 [iU]/d Normal 6 - 46 Int._Unit/L [facility] AST [Catalytic activity/Vol] 66 [iU]/d High 5 - 43 Int._Unit/L [facility] COAGULATIONOrdered By: Kane Light on 04-14-2022 INR Coag (PPP) [Relative time] 2.0 {INR} Invalid Interpretation Code [facility] PT Coag (PPP) [Time] 23.3 s High 9.4 - 1 2.5 second(s) [facility] CHEMISTRYOrdered By: SYSTEM SYSTEM on 04-09-2022 Albumin [Mass/Vol] 2.6 g/dL Low 3.3 - 5.0 gm/dL [facility] Albumin/Globulin [Mass ratio] 0.5 {ratio} Low 1.1 - 2.2 [facility] ALP [Catalytic activity/Vol] 154 [iU]/d High 21 - 98 Int._Unit/L [facility] ALT No additional P-5'-P [Catalytic activity/Vol] 32 [iU]/d Normal 6 - 46 Int._Unit/L [facility] Anion gap [Moles/Vol] 12 mmol/L Normal 6 - 16 mEq/L [facility] AST [Catalytic activity/Vol] 94 [iU]/d High 5 - 43 Int._Unit/L [facility] Bilirubin [Mass/Vol] 16.8 mg/dL Invalid Interpretation Code 0.0 - 1.1 mg/dL [facility] Comment on above: Result Comment: Crit ical Result verified by repeat analysis\Critical Result [id number] Called to JESSE MENA AT [facility] by ARON MARTÍNEZ And Read Back For Confirmation at: 04/09/2022 14:30:05 Calcium [Mass/Vol] 9.0 mg/dL Normal 8.9 - 11. 1 mg/dL [facility] Chloride [Moles/Vol] 99 mmol/L Low 101 - 1 11 mmol/L [facility] CO2 [Moles/Vol] 29 mmol/L Normal 21 - 31 mmol/L [facility] Creatinine [Mass/Vol] 0.6 mg/dL Normal 0.5 - 1.3 mg/dL [facility] GFR/1.73 sq M.predicted among blacks MDRD (S/P/Bld) [Vol rate/Area] mL/min/1.73 m2 Normal >=59mL/min/1 .73 m2 [facility] S GFR/1.73 sq M.predicted among non-blacks MDRD (S/P/Bld) [Vol rate/Area] mL/min/1.73 m2 Normal >=59mL/min/1 .73 m2 [facility] S Globulin (S) [Mass/Vol] 5.0 g/dL High 1.4 - 4.0 gm/dL [facility] Glucose [Mass/Vol] 115 mg/dL Normal 55 - 199 mg/dL [facility] Potassium [Moles/Vol] 3.7 mmol/L Normal 3.5 - 5.3 mmol/L [facility] Protein [Mass/Vol] 7.6 g/dL Normal 6.0 - 7.8 gm/dL [facility] Sodium [Moles/Vol] 136 mmol/L Normal 135 - 145 mmol/L [facility] Urea nitrogen [Mass/Vol] 5 mg/dL Normal 5 - 21 mg/dL [facility] Urea nitrogen/Creatinine [Mass ratio] 8 mg/mg Low 10 - 20 [facility] COAGULATIONOrdered By: Celena Chu on 04-09-2022 INR Coag (PPP) [Relative time] 1.8 {INR} Invalid Interpretation Code [facility] PT Coag (PPP) [Time] 20.5 s High 9.4 - 1 2.5 second(s) [facility] HEMATOLOGYOrdered By: SYSTEM SYSTEM on 04-09-2022 Basophils/100 WBC (Bld) 0.8 % Normal 0.0 - 2.0 % [facility] Basophils/Leukocytes Auto (Bld) [Pure # fraction] 0.0 E9/L Normal 0.0 - 0.2 E9/L [facility] Eosinophils/100 WBC (Bld) 4.0 % Normal 0.0 - 8.0 % [facility] Eosinophils/Leukocyt es Auto (Bld) [Pure # fraction] 0.3 E9/L Normal 0.0 - 0.5 E9/L [facility] Lymphocytes/100 WBC (Bld) 19.3 % Normal 14.0 - 50.0 % [facility] Lymphocytes/Leukocyt es Auto (Bld) [Pure # fraction] 1.2 E9/L Normal 1.0 - 4.0 E9/L [facility] Monocytes/100 WBC (Bld) 8.9 % Normal 4.0 - 14.0 % [facility] Monocytes/Leukocytes Auto (Bld) [Pure # fraction] 0.6 E9/L Normal 0.2 - 1.0 E9/L [facility] Neutrophils/100 WBC (Bld) 67.0 % Normal 36.0 - 75.0 % [facility] Neutrophils/Leukocyt es Auto (Bld) [Pure # fraction] 4.2 E9/L Normal 2.0 - 7.5 E9/L [facility] HEMATOLOGYOrdered By: Peri Luna on 04-09-2022 Erythrocyte distribution width (RBC) [Ratio] 14.9 % High 10.9 - 14.2 % [facility] Hematocrit (Bld) [Volume fraction] 37.4 % Low 37.7 - 49.0 % [facility] Hemoglobin (Bld) [Mass/Vol] 13.2 g/dL Low 13.5 - 17.5 gm/dL [facility] Macrocytes Ql (Bld) Present (04/09/22 11:36 AM) Normal [facility] MCH (RBC) [Entitic mass] 39.3 pg High 27.0 - 34.0 pg [facility] MCHC (RBC) [Mass/Vol] 35.3 g/dL Normal 31.4 - 36.0 gm/dL [facility] MCV (RBC) [Entitic vol] 111.5 fL High 80.0 - 100.0 fL [facility] Morphology Greg (Bld) [Interp] See Morphology (04/09/22 11:36 AM) Normal [facility] Platelet mean volume (Bld) [Entitic vol] 7.2 fL Normal 6.4 - 10.8 fL [facility] Platelets (Bld) [#/Vol] 100.0 E9/L Low 150.0 - 500.0 E9/L [facility] Comment on above: Result Comment: Plat elet count verified using smear estimate RBC (Bld) [#/Vol] 3.4 E12/L Low 4.3 - 5.9 E12/L [facility] WBC corrected for nucl RBC Auto (Bld) [#/Vol] 6.3 E9/L Normal 4.0 - 11.0 E9/L [facility] CBC AUTO DIFFon 03-21-2022 BASO # 0.0 103/ul Normal 0.0-0.1 [facility] Comment on above: Performed By: #### C BC #### [facility] [address] [address] [address] Geovany Cotter Basophils/100 WBC (Bld) 0.0 % Critically low 0.2-2.0 [facility] Comment on above: Performed By: #### C BC #### [facility] [address] [address] [address] Geovany Cotter EO # 0.0 103/ul Normal 0.0-0.7 [facility] Comment on above: Performed By: #### C BC #### [facility] [address] [address] [address] Geovany Cotter Eosinophils/100 WBC (Bld) 0.3 % Critically low 0.9-7.0 [facility] Comment on above: Performed By: #### C BC #### [facility] [address] [place] [address] Dr. Geovany Cotter Erythrocyte distribution width (RBC) [Ratio] 15.9 % Critically high 11.0-15.0 [facility] Comment on above: Performed By: #### C BC #### [facility] [address] [place] [address] Dr. Geovany Cotter Hematocrit (Bld) [Volume fraction] 36.2 % Critically low 42.0-54.0 [facility] Comment on above: Performed By: #### C BC #### [facility] [address] [place] [address] Dr. Geovany Cotter Hemoglobin (Bld) [Mass/Vol] 12.9 g/dL Critically low 14.0-18.0 [facility] Comment on above: Performed By: #### C BC #### [facility] [address] [place] [address] Dr. Geovany Cotter IG # 0.01 10e3/ul Normal 0.00-0.03 [facility] Comment on above: Performed By: #### C BC #### [facility] [address] [place] [address] Dr. Geovany Cotter IG % 0.2 % Normal 0.0-0.5 [facility] Comment on above: Performed By: #### C BC #### [facility] [address] [place] [address] Dr. Geovany Cotter LYMPH # 0.6 103/ul Critically low 1.2-3.8 [facility] Comment on above: Performed By: #### C BC #### [facility] [address] [place] [address] Dr. Geovany Cotter Lymphocytes/100 WBC (Bld) 9.6 % Critically low 20.5-60.0 [facility] Comment on above: Performed By: #### C BC #### [facility] [address] [place] [address] Dr. Geovany Cotter MANUAL DIFF REQ NO Normal [facility] Comment on above: Performed By: #### C BC #### [facility] [address] [place] [address] Dr. Geovany Cotter MCH (RBC) [Entitic mass] 37.5 pg Critically high 25.9-34.0 [facility] Comment on above: Performed By: #### C BC #### [facility] [address] [place] [address] Dr. Geovany Cotter MCHC (RBC) [Mass/Vol] 35.6 g/dL Critically high 29.9-35.2 [facility] Comment on above: Performed By: #### C BC #### [facility] [address] [place] [address] Dr. Geovany Cotter MCV (RBC) [Entitic vol] 105.2 fL Critically high 80.0-94.0 [facility] Comment on above: Performed By: #### C BC #### [facility] [address] [place] [address] Dr. Geovany Cotter MONO # 0.4 103/ul Normal 0.3-0.8 [facility] Comment on above: Performed By: #### C BC #### [facility] [address] [place] [address] Dr. Geovany Cotter Monocytes/100 WBC (Bld) 7.2 % Normal 1.7-12.0 [facility] Comment on above: Performed By: #### C BC #### [facility] [address] [place] [address] Dr. Geovany Cotter NEUT # 4.8 103/ul Normal 1.4-6.5 [facility] Comment on above: Performed By: #### C BC #### [facility] [address] [place] [address] Dr. Geovany Cotter Neutrophils/100 WBC (Bld) 82.7 % Critically high 43.0-75.0 [facility] Comment on above: Performed By: #### C BC #### [facility] [address] [place] [address] Dr. Geovany Cotter Platelet mean volume (Bld) [Entitic vol] 10.2 fL Normal 9.5-13.5 [facility] Comment on above: Performed By: #### C BC #### [facility] [address] [place] [address] Dr. Geovany Cotter PLT 80 103/ul Critically low 150-450 [facility] Comment on above: Performed By: #### C BC #### [facility] [address] [place] [address] Dr. Geovany Cotter RBC 3.44 106/ul Critically low 4.70-6.10 [facility] Comment on above: Performed By: #### C BC #### [facility] [address] [place] [address] Dr. Geovany Cotter WBC 5.9 103/ul Normal 4.0-11.0 [facility] Comment on above: Performed By: #### C BC #### [facility] [address] [place] [address] Dr. Geovany Cotter CRPon 03-21-2022 CRP 3.2 mg/dL Critically high <=1.0 [facility] Comment on above: Performed By: #### C RP, CMP #### [facility] [address] [place] [address] Dr. Geovany Cotter PROF 14(COMP METB)on 022 Albumin [Mass/Vol] 2.5 g/dL Critically low 3.4-5.0 [facility] Comment on above: Performed By: #### C RP, CMP #### [facility] [address] [place] [address] Dr. Geovany Cotter Albumin/Globulin [Mass ratio] 0.5 {ratio} Normal [facility] Comment on above: Performed By: #### C RP, CMP #### [facility] [address] [place] [address] Dr. Geovany Cotter ALP [Catalytic activity/Vol] 166 U/L Critically high 46-116 [facility] Comment on above: Performed By: #### C RP, CMP #### [facility] [address] [place] [address] Dr. Geovany Cotter ALT [Catalytic activity/Vol] 37 U/L Normal 16-63 [facility] Comment on above: Performed By: #### C RP, CMP #### [facility] [address] [address] [address] Geovany Cotter Anion gap [Moles/Vol] 11.6 mmol/L Normal [facility] Comment on above: Performed By: #### C RP, CMP #### [facility] [address] [address] [address] Geovany Cotter AST [Catalytic activity/Vol] 123 U/L Critically high 15-37 [facility] Comment on above: Performed By: #### C RP, CMP #### [facility] [address] [place] [address] Dr. Geovany Cotter Bilirubin [Mass/Vol] 10.6 mg/dL Critically high 0.2-1.0 [facility] Comment on above: Performed By: #### C RP, CMP #### [facility] [address] [place] [address] Dr. Geovany Cotter Calcium [Mass/Vol] 8.3 mg/dL Critically low 8.5-10.1 [facility] Comment on above: Performed By: #### C RP, CMP #### [facility] [address] [place] [address] Dr. Geovany Cotter Chloride [Moles/Vol] 97 mmol/L Critically low 98-107 [facility] Comment on above: Performed By: #### C RP, CMP #### [facility] [address] [place] [address] Dr. Geovany Cotter CO2 [Moles/Vol] 28.3 mmol/L Normal 21.0-32.0 [facility] Comment on above: Performed By: #### C RP, CMP #### [facility] [address] [place] [address] Dr. Geovany Cotter Creatinine [Mass/Vol] 1.21 mg/dL Normal 0.70-1.30 [facility] Comment on above: Performed By: #### C RP, CMP #### [facility] [address] [place] [address] Dr. Geovany Cotter EGFR-AF LATVIAN >60 Normal >=60 [facility] Comment on above: Performed By: #### C RP, CMP #### [facility] [address] [address] [address] Geovany Cotter EGFR-NON AF LATVIAN >60 Normal >=60 [facility] Comment on above: Performed By: #### C RP, CMP #### [facility] [address] [address] [address] Geovany Cotter Globulin (S) [Mass/Vol] 4.7 g/dL Normal [facility] Comment on above: Performed By: #### C RP, CMP #### [facility] [address] [address] [address] Geovany Cotter Glucose [Mass/Vol] 107 mg/dL Critically high 74-106 [facility] Comment on above: Performed By: #### C RP, CMP #### [facility] [address] [place] [address] Dr. Geovany Cotter Potassium [Moles/Vol] 3.9 mmol/L Normal 3.5-5.1 [facility] Comment on above: Performed By: #### C RP, CMP #### [facility] [address] [place] [address] Dr. Geovany Cotter Protein [Mass/Vol] 7.2 g/dL Normal 6.4-8.2 [facility] Comment on above: Performed By: #### C RP, CMP #### [facility] [address] [place] [address] Dr. eGovany Cotter Sodium [Moles/Vol] 133 mmol/L Critically low 136-145 [facility] Comment on above: Performed By: #### C RP, CMP #### [facility] [address] [place] [address] Dr. Geovany Cotter Urea nitrogen [Mass/Vol] 11.0 mg/dL Normal 7.0-18.0 [facility] Comment on above: Performed By: #### C RP, CMP #### [facility] [address] [place] [address] Dr. Geovany Cotter Urea nitrogen/Creatinine [Mass ratio] 9.0 mg/mg Normal [facility] Comment on above: Performed By: #### C RP, CMP #### [facility] [address] [place] [address] Dr. Geovany Cotter PROTIMEon 03-21-2022 INR Coag (PPP) [Relative time] 1.53 {INR} Normal [facility] Comment on above: Performed By: #### P T #### [facility] [address] [place] [address] Dr. Geovany Cotter INR GUIDELINES SEE BELOW Normal [facility] Comment on above: Result Comment: WILLIAMS RED INR: 2.0 - 3.0 CONDITIONS NOT LISTED BELOW 2.5 - 3.5 FOR PROSTHETIC HEART VALVE REPLACEMENT 2.5 - 3.5 RECURRENT THROMBOSIS Performed By: #### P T #### [facility] [address] [place] [address] Dr. Geovany Cotter PT Coag (PPP) [Time] 16.1 s Critically high 9.0-11.6 [facility] Comment on above: Performed By: #### P T #### [facility] [address] [place] [address] Dr. Geovany Cotter SED RATE [facility] 2021 SED RATE 24 mm/hr Critically high <=15 [facility] Comment on above: Performed By: #### S EDR #### [facility] [address] [place] [address] Dr. Geovany Cotter UA RANDOMon 03-21-2022 Bilirubin Ql (U) LARGE Abnormal NEGATIVE [facility] Comment on above: Performed By: #### U A #### [facility] [address] [place] [address] Dr. Geovany Cotter Clarity (U) CLOUDY Abnormal CLEAR [facility] Comment on above: Performed By: #### U A #### [facility] [address] [place] [address] Dr. Geovany Cotter Color (U) DK. ORANGE Abnormal YELLOW [facility] Comment on above: Performed By: #### U A #### [facility] [address] [place] [address] Dr. Geovayn Cotter Glucose Ql (U) Negative Normal NEGATIVE [facility] Comment on above: Performed By: #### U A #### [facility] [address] [place] [address] Dr. Geovany Cotter Hemoglobin Ql (U) LARGE Abnormal NEGATIVE [facility] Comment on above: Performed By: #### U A #### [facility] [address] [place] [address] Dr. Geovany Cotter Ketones Ql (U) Negative Normal NEGATIVE [facility] Comment on above: Performed By: #### U A #### [facility] [address] [place] [address] Dr. Geovany Cotter LEUKOCYTES Negative Normal NEGATIVE [facility] Comment on above: Performed By: #### U A #### [facility] [address] [place] [address] Dr. Geovany Cotter Nitrite Ql (U) Negative Normal NEGATIVE [facility] Comment on above: Performed By: #### U A #### [facility] [address] [place] [address] Dr. Geovany Cotter pH (U) 5.5 [pH] Normal 5-9 [facility] Comment on above: Performed By: #### U A #### [facility] [address] [place] [address] Dr. Geovany Cotter SPEC GRAVITY >=1.030 Abnormal 1.005-<=1.02 5 [facility] Comment on above: Performed By: #### U A #### [facility] [address] [place] [address] Dr. Geovany Cotter UA PROTEIN TRACE Normal NEGATIVE/ TRACE [facility] Comment on above: Performed By: #### U A #### [facility] [address] [place] [address] Dr. Geovany Cotter Urobilinogen Qn (U) 1.0 {Ruben'U}/dL Normal 0.2 - 1. 0 [facility] Comment on above: Performed By: #### U A #### [facility] [address] [place] [address] Dr. Geovany Cotter XR KUB 1 VIEWon 03-21-2022 XR KUB 1 VIEW EXAMINATION: XR KUB 1 VIEW HISTORY: Blood in urine , bilateral flank pain, bilateral leg swelling COMPARISON: No relevant comparison available. FINDINGS: KIDNEY/URETER - RIGHT: No visible renal or ureteral calcifications. KIDNEY/URETER - LEFT: No visible renal or ureteral calcifications. PELVIS: No visible ureteral calcifications. Any visible calcifications favor phleboliths. BOWEL: No abnormal dilation or deviation. BONES: No acute abnormality. OTHER: Negative. No abnormal gaseous collections. IMPRESSION: 1. No visible urinary tract calculi. 2. Normal bowel gas pattern. No suspicious findings. Electronically authenticated by: DORI YOO Date: 2022-03-21 17:58 Normal [facility] Vital Signs Date Time Vital Sign Value Performing Clinician Facility 09-15-2023 13:24-0500 Blood Pressure Location MAGGY SUAREZ [facility] 09-15-2023 13:24-0500 Diastolic blood pressure 77 mm[Hg] MAGGY SUAREZ [facility] 09-15-2023 13:24-0500 Heart rate 68 /min MAGGY SUAREZ [facility] 09-15-2023 13:24-0500 Respiratory rate 16 /min MAGGY SUAREZ [facility] 09-15-2023 13:24-0500 Systolic blood pressure 116 mm[Hg] MAGGY SUAREZ [facility] 05-22-2023 12:10-0400 Body height 195.6 cm Amanda Villarreal MD Work Phone: [facility] 05-22-2023 12:10-0400 Body weight 92.08 kg Amanda Villarreal MD Work Phone: [facility] 05-22-2023 12:10-0400 Diastolic blood pressure 89 mm[Hg] Amanda Villarreal MD Work Phone: [facility] 05-22-2023 12:10-0400 Heart rate 60 /min Amanda Villarreal MD Work Phone: [facility] 05-22-2023 12:10-0400 SaO2% (BldA) [Mass fraction] 98 % Amanda Villarreal MD Work Phone: [facility] 05-22-2023 12:10-0400 Systolic blood pressure 138 mm[Hg] Amanda Villarreal MD Work Phone: [facility] 04-30-2023 15:57-0400 Body height 195.6 cm Rose Saucedo AUTO DESIGN CHECKER.ELECTRICAL LOGGING OPERATOR Work Phone: [facility] 04-30-2023 15:57-0400 Body temperature 97 [degF] Rose Saucedo AUTO DESIGN CHECKER.ELECTRICAL LOGGING OPERATOR Work Phone: [facility] 04-30-2023 15:57-0400 Body weight 100.7 kg Rose Saucedo AUTO DESIGN CHECKER.ELECTRICAL LOGGING OPERATOR Work Phone: [facility] 04-30-2023 15:57-0400 Diastolic blood pressure 77 mm[Hg] Rose Saucedo AUTO DESIGN CHECKER.ELECTRICAL LOGGING OPERATOR Work Phone: [facility] 04-30-2023 15:57-0400 Heart rate 76 /min Rose Saucedo AUTO DESIGN CHECKER.ELECTRICAL LOGGING OPERATOR Work Phone: [facility] 04-30-2023 15:57-0400 Respiratory rate 16 /min Rose Saucedo AUTO DESIGN CHECKER.ELECTRICAL LOGGING OPERATOR Work Phone: [facility] 04-30-2023 15:57-0400 SaO2% (BldA) [Mass fraction] 99 % Rose Saucedo AUTO DESIGN CHECKER.ELECTRICAL LOGGING OPERATOR Work Phone: [facility] 04-30-2023 15:57-0400 Systolic blood pressure 122 mm[Hg] Rose Saucedo AUTO DESIGN CHECKER.ELECTRICAL LOGGING OPERATOR Work Phone: [facility] 04-15-2023 13:32-0400 Body height 195.6 cm Selma Gomez MD Work Phone: [facility] 04-15-2023 13:32-0400 Body temperature 97.11 [degF] Selma Gomez MD Work Phone: [facility] 04-15-2023 13:32-0400 Body weight 92.99 kg Selma Gomez MD Work Phone: [facility] 04-15-2023 13:32-0400 Diastolic blood pressure 75 mm[Hg] Selma Gomez MD Work Phone: [facility] 04-15-2023 13:32-0400 Heart rate 74 /min Selma Gomez MD Work Phone: [facility] 04-15-2023 13:32-0400 Respiratory rate 16 /min Selma Gomez MD Work Phone: [facility] 04-15-2023 13:32-0400 SaO2% (BldA) [Mass fraction] 99 % Selma Gomez MD Work Phone: [facility] 04-15-2023 13:32-0400 Systolic blood pressure 124 mm[Hg] Selma Gastelum Work Phone: [facility] 04-05-2023 02:02-0400 SaO2% (BldA) [Mass fraction] 100 % ROSE SAUCEDO [facility] Comment on above: Order Comment: Specimen Type: ARTERIAL B LOOD SPECIMENOrdering Facility: [facility] Address: [address] [place] [address] Performed By: #### A LLBG ####[facility] [id number] [address] OF [facility] 04-04-2023 19:48-0400 SaO2% (BldA) [Mass fraction] 99 % ROSE SAUCEDO [facility] Comment on above: Order Comment: Specimen Type: ARTERIAL B LOOD SPECIMENOrdering Facility: [facility] Address: [address] [place] [address] Performed By: #### A LLBG ####[facility] [id number] [address] [place] 04-04-2023 18:32-0400 SaO2% (BldA) [Mass fraction] 99 % ROSE SAUCEDO [facility] Comment on above: Order Comment: Specimen Type: ARTERIAL B LOOD SPECIMENOrdering Facility: [facility] Address: [address] [place], [place] [id number] Performed By: #### A LLBG ####[facility] [id number] [address] [id number] [facility] 04-04-2023 17:18-0400 SaO2% (BldA) [Mass fraction] 100 % ROSE SAUCEDO [facility] Comment on above: Order Comment: Specimen Type: ARTERIAL B LOOD SPECIMENOrdering Facility: [facility] Address: [address] [place] [address] Performed By: #### A LLMG ####[facility] [id number] [address] 04-04-2023 15:52-0400 SaO2% (BldA) [Mass fraction] 99 % ROES SAUCEDO [facility] Comment on above: Order Comment: Specimen Type: ARTERIAL B LOOD SPECIMENOrdering Facility: [facility] Address: [address] [place], [place] [address] Performed By: #### A LLMG ####[facility] [id number] [address] [id number] [facility] 04-04-2023 15:20-0400 SaO2% (BldA) [Mass fraction] 99 % ROSE SAUCEDO [facility] Comment on above: Order Comment: Specimen Type: ARTERIAL B LOOD SPECIMENOrdering Facility: [facility] Address: [address] [place], [place] [address] Performed By: #### A LLBG ####[facility] [id number] [address] [id number] [facility] 04-04-2023 14:44-0400 SaO2% (BldA) [Mass fraction] 99 % ROSE SAUCEDO [facility] Comment on above: Order Comment: Specimen Type: ARTERIAL B LOOD SPECIMENOrdering Facility: [facility] Address: [address] [place] [id number] Performed By: #### A LLMG ####[facility] LABCLIA [id number] [address] 04-04-2023 13:28-0400 SaO2% (BldA) [Mass fraction] 99 % ROSE SAUCEDO [facility] Comment on above: Order Comment: Specimen Type: ARTERIAL B LOOD SPECIMENOrdering Facility: [facility] Address: [address] [place] [address] Performed By: #### A LLMG ####[facility] [id number] [address] 04-04-2023 12:05-0400 SaO2% (BldA) [Mass fraction] 100 % ROSE SAUCEDO [facility] Comment on above: Order Comment: Specimen Type: ARTERIAL B LOOD SPECIMENOrdering Facility: [facility] Address: [address] [place] [address] Performed By: #### A LLMG ####[facility] LABCLIA [id number] [address] OF [facility] 07-18-2022 10:50-0500 Blood Pressure Location [employer] 07-18-2022 10:50-0500 Diastolic blood pressure 58 mm[Hg] Daniels SALAM [facility] 07-18-2022 10:50-0500 Heart rate 71 /min Daniels SALAM [facility] 07-18-2022 10:50-0500 Respiratory rate 14 /min [facility] [employer] 07-18-2022 10:50-0500 SaO2% (BldA) [Mass fraction] 100 % Daniels SALAM [facility] 07-18-2022 10:50-0500 Systolic blood pressure 144 mm[Hg] Daniels SALAM [facility] 07-18-2022 10:35-0500 Blood Pressure Location Daniels SALAM [facility] 07-18-2022 10:35-0500 Diastolic blood pressure 73 mm[Hg] Daniels SALAM [facility] 07-18-2022 10:35-0500 Heart rate 70 /min Daniels SALAM [facility] 07-18-2022 10:35-0500 Respiratory rate 13 /min Daniels SALAM [facility] 07-18-2022 10:35-0500 SaO2% (BldA) [Mass fraction] 99 % Daniels SALAM [facility] 07-18-2022 10:35-0500 Systolic blood pressure 130 mm[Hg] Daniels SALAM [facility] 07-18-2022 10:30-0500 Blood Pressure Location Daniels SAL[facility] 07-18-2022 10:30-0500 Diastolic blood pressure 74 mm[Hg] Daniels SALAM [facility] 07-18-2022 10:30-0500 Heart rate 64 /min Daniels SALAM [facility] 07-18-2022 10:30-0500 Respiratory rate 16 /min Daniels SALAM [facility] 07-18-2022 10:30-0500 SaO2% (BldA) [Mass fraction] 97 % Daniels SALAM [facility] 07-18-2022 10:30-0500 Systolic blood pressure 119 mm[Hg] Daniels SALAM [facility] 07-18-2022 10:22-0500 Body temperature 99.68 [degF] Daniels SALAM [facility] 07-18-2022 10:11-0500 Body temperature 98.6 [degF] Daniels SALAM [facility] 06-12-2022 14:14-0400 Blood Pressure Location Daniels SALAM [facility] 06-12-2022 14:14-0400 Diastolic blood pressure 84 mm[Hg] Daniels SALAM [facility] 06-12-2022 14:14-0400 Heart rate 70 /min Daniels SALAM [facility] 06-12-2022 14:14-0400 Respiratory rate 16 /min Daniels SALAM [facility] 06-12-2022 14:14-0400 Systolic blood pressure 132 mm[Hg] Daniels SALAM [facility] 05-23-2022 13:30-0400 Blood Pressure Location Daniels SALAM [facility] 05-23-2022 13:30-0400 Diastolic blood pressure 79 mm[Hg] Daniels SALAM [facility] 05-23-2022 13:30-0400 Heart rate 67 /min Daniels SALAM [facility] 05-23-2022 13:30-0400 Respiratory rate 12 /min Daniels SALAM [facility] 05-23-2022 13:30-0400 SaO2% (BldA) [Mass fraction] 99 % Daniels SALAM [facility] 05-23-2022 13:30-0400 Systolic blood pressure 131 mm[Hg] Daniels SALAM [facility] 05-23-2022 13:20-0400 Blood Pressure Location Daniels SALAM [facility] 05-23-2022 13:20-0400 Diastolic blood pressure 89 mm[Hg] Daniels SALAM [facility] 05-23-2022 13:20-0400 Heart rate 71 /min Daniels SALAM [facility] 05-23-2022 13:20-0400 Respiratory rate 12 /min Daniels SALAM [facility] 05-23-2022 13:20-0400 SaO2% (BldA) [Mass fraction] 100 % Daniels SALAM [facility] 05-23-2022 13:20-0400 Systolic blood pressure 131 mm[Hg] Daniels SALAM [facility] 05-23-2022 13:15-0400 Blood Pressure Location Daniels SALAM [facility] 05-23-2022 13:15-0400 Diastolic blood pressure 62 mm[Hg] Daniels SALAM [facility] 05-23-2022 13:15-0400 Heart rate 70 /min Daniels SALAM [facility] 05-23-2022 13:15-0400 Respiratory rate 14 /min Daniels SAL[facility] 05-23-2022 13:15-0400 SaO2% (BldA) [Mass fraction] 99 % Frances PEPE [facility] 05-23-2022 13:15-0400 Systolic blood pressure 102 mm[Hg] Frances ROMOAM [facility] 05-23-2022 13:07-0400 Body temperature 97.34 [degF] Frances ROMOAM [facility] 05-23-2022 12:00-0400 Body temperature 98.96 [degF] Frances PEPE [facility] 05-14-2022 15:33-0400 Body height 195.[address] Work Phone: [facility] 05-14-2022 15:33-0400 Body weight 92.[address] Work Phone: [facility] 05-14-2022 08:25-0400 Body height 195.6 cm [facility] Work Phone: [facility] 05-14-2022 08:25-0400 Body temperature 98.4 [degF] [facility] Work Phone: [facility] 05-14-2022 08:25-0400 Body weight 92.58 kg [facility] Work Phone: [facility] 05-14-2022 08:25-0400 Diastolic blood pressure 70 mm[Hg] [facility] Work Phone: [facility] 05-14-2022 08:25-0400 Heart rate 82 /min [facility] Work Phone: [facility] 05-14-2022 08:25-0400 Respiratory rate 14 /min [facility] Work Phone: [facility] 05-14-2022 08:25-0400 SaO2% (BldA) [Mass fraction] 95 % [facility] Work Phone: [facility] 05-14-2022 08:25-0400 Systolic blood pressure 124 mm[Hg] [facility] Work Phone: [facility] 05-12-2022 14:01-0400 Body height 195.6 cm Treva Wolff MD Work Phone: [facility] 05-12-2022 14:01-0400 Body temperature 98.2 [degF] Treva Wolff MD Work Phone: [facility] 05-12-2022 14:01-0400 Body weight 93.76 kg Treva Wolff MD Work Phone: [facility] 05-12-2022 14:01-0400 Diastolic blood pressure 68 mm[Hg] Treva Wolff MD Work Phone: [facility] 05-12-2022 14:01-0400 Heart rate 75 /min Treva Wolff MD Work Phone: [facility] 05-12-2022 14:01-0400 SaO2% (BldA) [Mass fraction] 100 % Treva Wolff MD Work Phone: [facility] 05-12-2022 14:01-0400 Systolic blood pressure 130 mm[Hg] Treva Wolff MD Work Phone: [facility] 04-30-2022 14:50-0400 Diastolic blood pressure 92 mm[Hg] Daniels SALAM [facility] 04-30-2022 14:50-0400 Heart rate 66 /min Daniels SALAM [facility] 04-30-2022 14:50-0400 Respiratory rate 11 /min Daniels SALAM [facility] 04-30-2022 14:50-0400 SaO2% (BldA) [Mass fraction] 99 % Daniels SALAM [facility] 04-30-2022 14:50-0400 Systolic blood pressure 154 mm[Hg] Daniels SALAM [facility] 04-30-2022 14:40-0400 Diastolic blood pressure 99 mm[Hg] Daniels SALAM [facility] 04-30-2022 14:40-0400 Heart rate 75 /min Daniels SALAM [facility] 04-30-2022 14:40-0400 Respiratory rate 22 /min Daniels SALAM [facility] 04-30-2022 14:40-0400 SaO2% (BldA) [Mass fraction] 99 % Daniels SALAM [facility] 04-30-2022 14:40-0400 Systolic blood pressure 136 mm[Hg] Daniels SALAM [facility] 04-30-2022 14:35-0400 Diastolic blood pressure 99 mm[Hg] Daniels SALAM [facility] 04-30-2022 14:35-0400 Heart rate 84 /min Daniels SALAM [facility] 04-30-2022 14:35-0400 Respiratory rate 76 /min Daniels SAL[facility] 04-30-2022 14:35-0400 SaO2% (BldA) [Mass fraction] 98 % Daniels SALAM [facility] 04-30-2022 14:35-0400 Systolic blood pressure 142 mm[Hg] Daniels SALAM [facility] 04-30-2022 14:27-0400 Blood Pressure Location Daniels SALAM [facility] 04-30-2022 14:27-0400 Body temperature 97.52 [degF] Daniels SALAM [facility] 04-30-2022 14:27-0400 Respiratory rate 18 /min Daniels SALAM [facility] 04-30-2022 14:23-0400 Respiratory rate 20 /min Daniels SALAM [facility] 04-30-2022 14:21-0400 Respiratory rate 20 /min Daniels SAL[facility] 04-30-2022 14:15-0400 Blood Pressure Location Daniels SALAM [facility] 04-30-2022 14:15-0400 Body temperature 97.52 [degF] Daniels SALAM [facility] 04-09-2022 10:30-0400 Blood Pressure Location Daniels SALAM [facility] 04-09-2022 10:30-0400 Diastolic blood pressure 80 mm[Hg] Daniels SALAM [facility] 04-09-2022 10:30-0400 Heart rate 85 /min Daniels SALAM [facility] 04-09-2022 10:30-0400 Respiratory rate 14 /min Daniels SALAM [facility] 04-09-2022 10:30-0400 Systolic blood pressure 130 mm[Hg] Daniels SALAM [facility] 03-20-2022 16:08-0400 Blood Pressure Location CHINEDU SETHI [facility] 03-20-2022 16:08-0400 Body temperature 98.42 [degF] CHINEDU SIDELL [facility] 03-20-2022 16:08-0400 Diastolic blood pressure 80 mm[Hg] CHINEDU SIDELL [facility] 03-20-2022 16:08-0400 Heart rate 89 /min CHINEDU SIDELL [facility] 03-20-2022 16:08-0400 SaO2% (BldA) [Mass fraction] 99 % CHINEDU SIDELL [facility] 03-20-2022 16:08-0400 Systolic blood pressure 134 mm[Hg] CHINEDU SIDELL [facility] Encounters Encounter Date Encounter Type Care Provider Facility Start: 09-25-2023 ambulatory Frances PEPE Facility:[facility] Start: 09-15-2023 End: 09-16-2023 ambulatory MAGGY SUAREZ Facility:[facility] Start: 09-15-2023 End: 09-15-2023 Patient encounter procedure MAGGY SUAREZ [facility] Start: 07-24-2023 End: 07-24-2023 ambulatory LUIS E BROOKS Facility:[facility] Start: 07-21-2023 ambulatory Luis E castro MD Work Phone: [facility] Comment on above: Still some bloating Start: 07-21-2023 Patient encounter procedure Luis E Brooks MD Work Phone: [facility] Comment on above: Coming up appointmen t Start: 07-13-2023 ambulatory Christine To [facility] Comment on above: Happy Thanksgiving! Start: 07-13-2023 E-mail encounter fro m caregiver Christine To RN [facility] Start: 07-07-2023 Refill Rose harmon AUTO DESIGN CHECKER.ELECTRICAL LOGGING OPERATOR Work Phone: [facility] Comment on above: Refill Request Start: 07-06-2023 Refill Rose Cheko s AUTO DESIGN CHECKER.ELECTRICAL LOGGING OPERATOR Work Phone: [facility] Comment on above: Refill Request Start: 07-03-2023 Refill [facility] Comment on above: Refill Request (Lowe r tacrolimus) Start: 06-26-2023 ambulatory [facility] Comment on above: Bloated Start: 06-08-2023 Refill [facility] Comment on above: Rx Refills (Increase fk back to 4mg bid) Start: 06-01-2023 End: 06-01-2023 ambulatory Christine To RN [facility] Comment on above: Bloodwork question Labs Start: 05-28-2023 End: 05-29-2023 ambulatory Amrik Jeffrey Facility:[facility] Start: 05-22-2023 End: 05-22-2023 ambulatory [facility] Facility:[facility] Start: 05-22-2023 End: 05-23-2023 ambulatory LUIS E BROOKS Facility:[facility] Start: 05-22-2023 End: 05-22-2023 Patient encounter procedure Amanda Villarreal MD Work Phone: Cardiology Comment on above: Cardiomyopathy, da schemic (HCC) (Primary Dx); Liver transplant recipient (HCC); Chronic systolic heart failure (HCC) Start: 05-18-2023 End: 05-18-2023 ambulatory KAUSHAL STEWART Facility:[facility] Start: 05-05-2023 End: 05-05-2023 ambulatory TREVA WOLFF Facility:[facility] Start: 04-30-2023 End: 05-01-2023 ambulatory DEANGELO BOLAND Facility:[facility] Start: 04-30-2023 End: 04-30-2023 Patient encounter procedure Rose Saucedo APRN.ELECTRICAL LOGGING OPERATOR Work Phone: [facility] Comment on above: Liver replaced by tr ansplant (HCC) (Primary Dx); Immunosuppressed status (HCC) Start: 04-22-2023 End: 04-22-2023 Refill Christine To RN [facility] Comment on above: Refill Request (Inc /) Refill Request Start: 04-17-2023 Telephone encounter Liver Txp Coordinator Work Phone: Transplant Center Comment on above: Medication Question (lasix) Start: 04-16-2023 Telephone encounter Liver Txp Coordinator Work Phone: Transplant Center Start: 04-15-2023 End: 04-16-2023 ambulatory SELMA JERONIMO Facility:[facility] Start: 04-15-2023 End: 04-15-2023 Patient encounter procedure Selma Gomez MD Work Phone: Transplant Center Comment on above: Encounter for afterc are following liver transplant (HCC) (Primary Dx); Liver replaced by transplant (HCC); Need for prophylactic immunotherapy; Encounter for monitoring tacrolimus therapy; Encounter for medication review and counseling; Hyponatremia Start: 04-15-2023 End: 04-16-2023 ambulatory SELMA JERONIMO Facility:[facility] Start: 04-14-2023 Telephone encounter Liver Txp Coordinator Work Phone: Transplant Center Comment on above: Hospital F/U Start: 04-13-2023 End: 04-13-2023 Orders Only Liver Txp Coordinator Work Phone: Transplant Center Comment on above: Liver replaced by tr ansplant (HCC) (Primary Dx) lab letter Start: 04-04-2023 Telephone encounter Pawel Machuca RN Transplant Center Comment on above: Organ Offer Start: 04-04-2023 End: 04-13-2023 Evaluation and management of inpatient SELMA JERONIMO Facility:[facility] Start: 04-03-2023 Orders Only Johnnie marion MD Work Phone: Pulmonary Medicine Comment on above: ALISON (acute kidney in jury) (HCC) (Primary Dx) Start: 04-01-2023 Orders Only Hortensia Angeles RN Transpl ant Center Comment on above: Alcoholic cirrhosis of liver with ascites (HCC) (Primary Dx) Start: 04-01-2023 End: 04-03-2023 Evaluation and management of inpatient MELLY VELÁZQUEZ [facility] Facility:[facility] Start: 03-31-2023 Telephone encounter Hortensia Angeles helicopter officer Center Comment on above: Listed For Liver Tra nsplant ALISON vs HRS; Follow U p Start: 03-30-2023 End: 03-31-2023 ambulatory TREVA HART Facility:[facility] Start: 03-30-2023 End: 03-30-2023 Patient encounter procedure TREVA HART [facility] Start: 03-26-2023 Orders Only Hortensia Angeles RN Transpl ant Center Comment on above: Alcoholic cirrhosis of liver with ascites (HCC) (Primary Dx) Start: 03-23-2023 End: 03-23-2023 ambulatory Treva Wolff MD Work Phone: Gastroenterology Comment on above: Alcoholic cirrhosis of liver with ascites (HCC) (Primary Dx) Start: 03-23-2023 End: 03-23-2023 Telemedicine consultation with patient Treva Wolff MD Work Phone: [facility] Start: 03-12-2023 End: 03-13-2023 ambulatory TREVA HART Facility:[facility] Start: 03-12-2023 End: 03-12-2023 Patient encounter procedure TREVA HART [facility] Start: 01-20-2023 End: 01-21-2023 ambulatory TREVA WOLFF Facility:[facility] Start: 01-20-2023 End: 01-20-2023 Subsequent hospital visit by physician Ct 2 Main Qb (I-Stat) Radiology Comment on above: Alcoholic cirrhosis of liver with ascites (HCC) [K70.31] Start: 12-11-2022 Telephone encounter Hortensia Angeles [facility] officer Center Comment on above: Liver Transplant Isabel ection Committee Outcome Patient Notifi Abnormal results of liver function studies (Primary Dx); Alcoholic cirrhosis of liver with ascites (HCC) Start: 11-27-2022 End: 11-28-2022 [facility] Start: 11-27-2022 Telephone encounter Hortensia Angeles helicopter officer Center Comment on above: CHEMICAL DEPENDENCY SUBCOMMITTEE OUTCOME PATIENT NOTIFICATI Start: 11-20-2022 End: 11-21-2022 ambulatory STACY WILSON ELMAGD Facility:[facility] Start: 11-20-2022 End: 11-20-2022 Subsequent hospital visit by physician Us Main A21 1 Radiology Comment on above: Alcoholic cirrhosis of liver with ascites (HCC) [K70.31] Start: 11-04-2022 End: 11-05-2022 ambulatory Daniels SALAM Facility:[facility] Start: 11-04-2022 End: 11-04-2022 Patient encounter procedure Daniels SALAM [facility] Start: 10-28-2022 End: 10-29-2022 ambulatory TREVA HART Facility:[facility] Start: 10-28-2022 End: 10-28-2022 Patient encounter procedure TREVA PUTNAMELLIOTTNICHOLAS [facility] Start: 10-23-2022 End: 10-24-2022 ambulatory HORTENSIA LIMA Facility:[facility] Start: 10-23-2022 End: 10-23-2022 Patient encounter procedure HORTENSIA LIMA [facility] Start: 10-21-2022 Orders Only Hortensia Angeles RN Transpl [facility] Comment on above: Alcoholic cirrhosis of liver with ascites (HCC) (Primary Dx) Start: 10-20-2022 Social Work Lobo Frazierkryfky Yuriy ISW Work Phone: Transplant Center Start: 10-14-2022 Orders Only Hortensia Pulice RN Transpl ant Center Comment on above: Alcoholic cirrhosis of liver with ascites (HCC) (Primary Dx) Start: 10-09-2022 Orders Only Hortensia Angeles RN Transpl ant Center Comment on above: Alcoholic cirrhosis of liver with ascites (HCC) (Primary Dx); Alcoholic cirrhosis, unspecified whether ascites present (HCC) Start: 10-08-2022 Telephone encounter Hortensia Angeles RN Transplant Center Comment on above: CHEMICAL DEPENDENCY SELECTION COMMITTEE OUTCOME PATIENT NOT Start: 09-19-2022 Telephone encounter Hortensia Angeles RN Transplant Center Comment on above: Patient Update Start: 09-18-2022 Telephone encounter Hortensia Angeles helicopter officer Center Comment on above: Patient Update Start: 09-04-2022 Telephone encounter Hortensia Angeles [facility] officer Center Comment on above: CHEMICAL DEPENDENCY OUTCOME PATIENT CALL Start: 09-03-2022 ambulatory Melly Castro MD Work Phone: Transplant Center Comment on above: CHEMICAL DEPENDENCY TRANSPLANT SELECTION MEETING OUTCOME Start: 08-29-2022 [facility] Comment on above: Appointment Start: 08-07-2022 Telephone encounter Hortensia Angeles helicopter officer Center Comment on above: CHEMICAL DEPENDENCY SUBCOMITTEE OUTCOME PATIENT CALL Start: 08-06-2022 ambulatory Melly Castro MD Work Phone: Transplant Center Comment on above: CHEMICAL DEPENDENCY SUBCOMMITTEE Start: 07-31-2022 End: 07-31-2022 Patient encounter procedure Daniels SALAM [facility] Start: 07-25-2022 Telephone encounter Liver Txp Coordinator Work Phone: Transplant Center Comment on above: Care Everywhere Start: 07-18-2022 End: 07-18-2022 Patient encounter procedure Daniels SALAM [facility] Start: 07-02-2022 Telephone encounter Hortensia Angeles helicopter officer Center Comment on above: POSITIVE PETH RESULT S Start: 06-26-2022 Telephone encounter Hortensia Angeles RN Transplant Center Comment on above: CHEMCICAL DEPENDENCY MEETING OUTCOME PATIENT CALL Alcoholic cirrhosis of liver with ascites (HCC) (Primary Dx) Start: 06-25-2022 ambulatory Melly Castro MD Work Phone: Transplant Center Comment on above: CHEMICAL DEPENDENCY SELECTION COMMITTEE Start: 06-19-2022 End: 06-19-2022 Patient encounter procedure CHINEDU SETHI [facility] Start: 06-12-2022 End: 10-09-2022 Recurring Frances PEPE [facility] Start: 06-12-2022 End: 06-12-2022 Patient encounter procedure Frances PEPE [facility] Start: 06-05-2022 Orders Only Hortensia Angeles RN [facility] Comment on above: Alcoholic cirrhosis of liver with ascites (HCC) (Primary Dx) Start: 06-04-2022 ambulatory Melly Castro MD Work Phone: Transplant Center Comment on above: CHEMCIAL DEPENDENCY MEETING Start: 06-02-2022 End: 06-02-2022 Social Work Lobo Roseanne CLANCY Work Phone: Transplant Center Start: 05-23-2022 End: 05-23-2022 Patient encounter procedure Frances PEPE [facility] Start: 05-22-2022 Orders Only Hortensia Angeles RN Transpl [facility] Comment on above: Alcoholic cirrhosis of liver with ascites (HCC) (Primary Dx); Alcoholic cirrhosis, unspecified whether ascites present (HCC) Start: 05-14-2022 End: 05-14-[address] Work Phone: Nutrition Therapy Comment on above: Patient Education; A ssessment Start: 05-14-2022 Nursing evaluation o f patient and report Hortensia Angeles RN Transplant Center Comment on above: Encounter for educat ion (Primary Dx) Start: 05-14-2022 End: 05-14-2022 Patient encounter procedure Anest[facility] Work Phone: Transplant Center Comment on above: Alcoholic cirrhosis of liver with ascites (HCC) (Primary Dx); Liver transplant candidate NO SHOW (Primary Dx) Alcoholic cirrhosis of liver with ascites (HCC) (Primary Dx); Pre-transplant evaluation for liver transplant [Z01.818 (ICD-10-CM)]; Liver transplant candidate Start: 05-14-2022 End: 05-14-2022 Patient encounter status Javi Nguyễn MD Work Phone: Transplant Center Start: 05-13-2022 End: 05-13-2022 Orders Only Hortensia Angeles RN Transplant Center Comment on above: Alcoholic cirrhosis of liver with ascites (HCC) (Primary Dx) Alcoholic cirrhosis of liver with ascites (HCC) [K70.31] Start: 05-12-2022 End: 05-12-2022 Patient encounter procedure Treva Wolff MD Work Phone: Transplant Center Comment on above: Alcoholic cirrhosis of liver with ascites (HCC) (Primary Dx); Liver transplant candidate Start: 05-09-2022 End: 05-09-2022 ambulatory Liver Txp Coordinator Work Phone: Transplant Center Comment on above: Encounter for educat ion about transplantation (Primary Dx) Start: 05-09-2022 End: 05-09-2022 Telemedicine consultation with patient Liver Txp Coordinator Work Phone: [facility] Start: 05-08-2022 End: 08-19-2022 Recurring [facility] [facility] Start: 05-08-2022 End: 11-04-2022 Recurring [employer] [facility] Start: 05-07-2022 Telephone encounter Liver Txp Coordinator Work Phone: Transplant Center Comment on above: Reminder Call Start: 04-30-2022 Telephone encounter Gracie Inder helicopter officer Center Comment on above: Referral - Liver Txp (Evaluation scheduling) Start: 04-30-2022 End: 04-30-2022 Patient encounter procedure Danielsazalea PEPE [facility] Start: 04-29-2022 Telephone encounter Gracie Loving RN Transplant Center Comment on above: Referral - Liver Txp (Intake-pt to call back about scheduling) Start: 04-24-2022 End: 04-24-2022 Patient encounter procedure Daniels SALAM [facility] Start: 04-24-2022 End: 07-24-2022 Recurring Frances ROMOAM [facility] Start: 04-18-2022 Telephone encounter Liver Txp Coordinator Work Phone: Transplant Center Comment on above: Referral - Liver Txp Start: 04-17-2022 End: 04-17-2022 Patient encounter procedure Daniels SALAM [facility] Start: 04-14-2022 End: 04-14-2022 Patient encounter procedure Daniels SALAM [facility] Start: 04-11-2022 End: 04-11-2022 Patient encounter procedure Daniels SALAM [facility] Start: 04-09-2022 End: 04-09-2022 Patient encounter procedure Daniels SALAM [facility] Start: 03-21-2022 End: 03-22-[address] BULLOCK [facility] Facility: Start: 03-20-2022 End: 03-20-2022 Patient encounter procedure CHINEDU SETHI [facility] [place] Procedures Date Procedure Procedure Detail Performing Clinician Start: 05-05-2023 Echocardiography ROSE SAUCEDO Start: 04-13-2023 Antibody screen ROSE SAUCEDO Comment on above: Order Comment: Specimen Type: BLOOD SPEC IMENOrdering Facility: [facility] Address: [address] [place] [address] Performed By: #### T SCR ####CC MAIN BLOOD BANKCLIA [id number] [address] Start: 04-11-2023 Lipid 1996 panel - Serum or Plasma Liver Coordinator Work Phone: Start: 04-10-2023 Antibody screen ROES SAUCEDO Comment on above: Order Comment: Specimen Type: BLOOD SPEC IMENOrdering Facility: [facility] Address: [address] [place] [address] Performed By: #### T SCR ####CC MAIN BLOOD BANKCLIA [id number] [address] Start: 04-08-2023 Echocardiography ROSE SAUCEDO Start: 04-07-2023 Echocardiography ROSE SAUCEDO Start: 04-07-2023 Antibody screen ROSE SAUCEDO Comment on above: Order Comment: Specimen Type: BLOOD SPEC IMENOrdering Facility: [facility] Address: [address] [place] [address] Performed By: #### T SCR ####CC MAIN BLOOD BANKCLIA [id number] [address] Start: 04-06-2023 H/O: liver recipient Liver transplant recipient Liver Coordinator Work Phone: Start: 04-04-2023 Antibody screen ROSE SAUCEDO Comment on above: Order Comment: Specimen Type: BLOOD SPEC IMENOrdering Facility: [facility] Address: [address] [place] [address] Performed By: #### T SCR ####CC MAIN BLOOD BANKCLIA [id number] [address] Start: 01-20-2023 Ct abdomen w/contrast material Hortensia frye RN Start: 11-20-2022 Antibody screen ROSE SAUCEDO Comment on above: Order Comment: Specimen Type: BLOOD SPEC IMENOrdering Facility: [facility] Address: [address] [place] [address] Performed By: #### T SCR ####CC MAIN BLOOD BANKCLIA [id number] [address] [place] Start: 11-20-2022 Dup-scan artl prudence abdl/pel/scrot&/rpr orgn com Hortensia Angeles RN Start: 11-20-2022 ABD LIVER VASCULAR Hortensia Angeles RN Start: 07-18-2022 Esophagogastroduodenoscopy [facility] [employer] Start: 05-23-2022 Esophagogastroduodenoscopy [facility] Start: 05-13-2022 Ct abdomen w/contrast material Treva Wolff MD Work Phone: Start: 05-13-2022 Ct thorax w/contrast material Treva Wolff MD Work Phone: Start: 04-30-2022 Esophagogastroduodenoscopy [facility] [employer] 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 Work Phone: H/O: liver recipient Liver trans plant recipient (HCC) Amanda Villarreal MD Work Phone: Plan of Treatment Date Care Activity Detail Author Start: 03-13-2032 [facility] Start: 04-11-2028 Lipid 1996 panel - Serum or Plasma Lipid Screening [facility] Start: 04-11-2028 LIPID SCREEN LIPID SCREEN [facility] Start: 05-12-2027 LIPID SCREEN LIPID SCREEN [facility] Start: 04-30-2024 BP CONTROLLED (<130/80) BP CONTROLLED (<130/80) [facility] Start: 04-15-2024 BP CONTROLLED (<130/80) BP CONTROLLED (<130/80) [facility] Start: 05-14-2023 BP CONTROLLED (<130/80) BP CONTROLLED (<130/80) [facility] Start: 05-04-2023 End: 04-01-2024 Echocardiography ECHO Cardiology Routine Alcoholic cirrhosis of liver with ascites (HCC) Expected: 05/04/2023, Expires: 04/01/2024 [facility] Work Phone: Comment on above: Expected: 05/04/2023, Expires: 4 Start: 04-24-2023 Influenza vaccination [facility] Start: 04-15-2023 End: 06-15-2023 CBC W Auto Differential panel - Blood CBC + DIFF Lab Routine Liver replaced by transplant (HCC) Expected: 04/15/2023, Expires: 06/15/2023 [facility] Work Phone: Comment on above: Expected: 04/15/2023, Expires: 3 Start: 04-15-2023 End: 06-15-2023 Comprehensive metabolic 2000 panel - Serum or Plasma COMP METABOLIC PANEL Lab Routine Liver replaced by transplant (HCC) Expected: 04/15/2023, Expires: 06/15/2023 [facility] Work Phone: Comment on above: Expected: 04/15/2023, Expires: 3 Start: 04-15-2023 End: 06-15-2023 Gamma glutamyl transferase [Enzymatic activity/volume] in Serum or Plasma GGT BLD Lab Routine Liver replaced by transplant (HCC) Expected: 04/15/2023, Expires: 06/15/2023 [facility] Work Phone: Comment on above: Expected: 04/15/2023, Expires: Start: 04-15-2023 End: 06-15-2023 Magnesium [Mass/volume] in Serum or Plasma MAGNESIUM BLD Lab Routine Liver replaced by transplant (HCC) Expected: 04/15/2023, Expires: 06/15/2023 [facility] Work Phone: Comment on above: Expected: 04/15/2023, Expires: Start: 04-15-2023 End: 06-15-2023 Phosphate [Mass/volume] in Serum or Plasma PHOSPHORUS INORGANIC Lab Routine Liver replaced by transplant (HCC) Expected: 04/15/2023, Expires: 06/15/2023 [facility] Work Phone: Comment on above: Expected: 04/15/2023, Expires: 3 Start: 04-15-2023 End: 06-15-2023 Tacrolimus [Mass/volume] in Blood TACROLIMUS/FK-506 BL Lab Routine Liver replaced by transplant (HCC) Expected: 04/15/2023, Expires: 06/15/2023 [facility] Work Phone: Comment on above: Expected: 04/15/2023, Expires: Start: 04-06-2023 End: 06-06-2023 Comprehensive metabolic 2000 panel - Serum or Plasma COMP METABOLIC PANEL Lab Routine ALISON (acute kidney injury) (HCC) Expected: 04/06/2023, Expires: 06/06/2023 [facility] Work Phone: Comment on above: Expected: 04/06/2023, Expires: Start: 01-10-2023 End: 01-10-2024 Ct abdomen w/contrast material CT LIVER W IVCON Radiology Routine Abnormal results of liver function studies Alcoholic cirrhosis of liver with ascites (HCC) Expected: 01/10/2023, Expires: 01/10/2024 [facility] Work Phone: Comment on above: Expected: 01/10/2023, Expires: 4 Start: 01-10-2023 End: 03-12-2023 TOX SCREEN ROUT UR TOX SCREEN ROUT UR Lab Routine Alcoholic cirrhosis of liver with ascites (HCC) Expected: 01/10/2023, Expires: 03/12/2023 [facility] Work Phone: Comment on above: Expected: 01/10/2023, Expires: 3 Start: 12-11-2022 End: 02-10-2023 [id number] [Mass/volume] in Serum or Plasma ALPHA FETOPROTEIN BL Lab Routine Alcoholic cirrhosis of liver with ascites (HCC) Expected: 12/11/2022 (Approximate), Expires: 02/10/2023 [facility] Work Phone: Comment on above: Expected: 12/11/2022 (Approximate), Expi res: 02/10/2023 Start: 12-11-2022 End: 02-10-2023 Basic metabolic 2000 panel - Serum or Plasma BASIC METABOLIC PNL Lab Routine Alcoholic cirrhosis of liver with ascites (HCC) Expected: 12/11/2022, Expires: 02/10/2023 [facility] Work Phone: Comment on above: Expected: 12/11/2022, Expires: 3 Start: 12-11-2022 End: 02-10-2023 CBC W Auto Differential panel - Blood CBC + DIFF Lab STAT Alcoholic cirrhosis of liver with ascites (HCC) Expected: 12/11/2022 (Approximate), Expires: 02/10/2023 [facility] Work Phone: Comment on above: Expected: 12/11/2022 (Approximate), Expi res: 02/10/2023 Start: 12-11-2022 End: 02-10-2023 Hepatic function 2000 panel - Serum or Plasma HEPATIC FUNCTION PNL Lab Routine Alcoholic cirrhosis of liver with ascites (HCC) Expected: 12/11/2022, Expires: 02/10/2023 [facility] Work Phone: Comment on above: Expected: 12/11/2022, Expires: 3 Start: 12-11-2022 End: 02-10-2023 PHOSPHATIDYLETHANOL (PETH) PHOSPHATIDYLETHANOL (PETH) Lab Routine Alcoholic cirrhosis of liver with ascites (HCC) Expected: 12/11/2022, Expires: 02/10/2023 [facility] Work Phone: Comment on above: Expected: 12/11/2022, Expires: 3 Start: 11-11-2022 Hepatitis A Vaccine (2 of 3 - Hep A Twinrix risk 3-dose series) Hepatitis A Vaccine (2 of 3 - Hep A Twinrix risk 3-dose series) [facility] Start: 11-11-2022 Hepatitis B Vaccine (2 of 3 - Hep B Twinrix 3-dose series) Hepatitis B Vaccine (2 of 3 - Hep B Twinrix 3-dose series) [facility] Start: 10-29-2022 End: 12-29-2022 [id number] [Mass/volume] in Serum or Plasma ALPHA FETOPROTEIN BL Lab Routine Alcoholic cirrhosis of liver with ascites (HCC) Expected: 10/29/2022 (Approximate), Expires: 12/29/2022 [facility] Work Phone: Comment on above: Expected: 10/29/2022 (Approximate), Expi res: 12/29/2022 Start: 10-29-2022 End: 12-29-2022 CBC panel - Blood by Automated count CBC Lab Routine Alcoholic cirrhosis of liver with ascites (HCC) Expected: 10/29/2022 (Approximate), Expires: 12/29/2022 [facility] Work Phone: Comment on above: Expected: 10/29/2022 (Approximate), Expi res: 12/29/2022 Start: 10-29-2022 End: 12-29-2022 Comprehensive metabolic 2000 panel - Serum or Plasma COMP METABOLIC PANEL Lab Routine Alcoholic cirrhosis of liver with ascites (HCC) Expected: 10/29/2022 (Approximate), Expires: 12/29/2022 [facility] Work Phone: Comment on above: Expected: 10/29/2022 (Approximate), Expi res: 12/29/2022 Start: 10-29-2022 End: 11-08-2023 Dup-scan artl prudence abdl/pel/scrot&/rpr orgn com US DOPPLER COMPLETE Radiology Routine Alcoholic cirrhosis of liver with ascites (HCC) Expected: 10/29/2022 (Approximate), Expires: 11/08/2023 [facility] Work Phone: Comment on above: Expected: 10/29/2022 (Approximate), Expi res: 11/08/2023 Start: 10-29-2022 End: 12-29-2022 PHOSPHATIDYLETHANOL (PETH) PHOSPHATIDYLETHANOL (PETH) Lab Routine Alcoholic cirrhosis of liver with ascites (HCC) Expected: 10/29/2022 (Approximate), Expires: 12/29/2022 [facility] Work Phone: Comment on above: Expected: 10/29/2022 (Approximate), Expi res: 12/29/2022 Start: 10-29-2022 End: 12-29-2022 PT panel - Platelet poor plasma by Coagulation assay PROTHROMBIN TIME/PT Lab Routine Alcoholic cirrhosis of liver with ascites (HCC) Expected: 10/29/2022 (Approximate), Expires: 12/29/2022 [facility] Work Phone: Comment on above: Expected: 10/29/2022 (Approximate), Expi res: 12/29/2022 Start: 10-29-2022 End: 12-29-2022 TOX SCREEN ROUT UR TOX SCREEN ROUT UR Lab Routine Alcoholic cirrhosis of liver with ascites (HCC) Expected: 10/29/2022 (Approximate), Expires: 12/29/2022 [facility] Work Phone: Comment on above: Expected: 10/29/2022 (Approximate), Expi res: 12/29/2022 Start: 10-29-2022 End: 12-29-2022 TYPE + SCREEN TYPE + SCREEN Blood Bank Routine Alcoholic cirrhosis of liver with ascites (HCC) Expected: 10/29/2022 (Approximate), Expires: 12/29/2022 [facility] Work Phone: Comment on above: Expected: 10/29/2022 (Approximate), Expi res: 12/29/2022 Start: 10-29-2022 End: 11-08-2023 US ABD LIVER VASCULAR US ABD LIVER VASCULAR Radiology Routine Alcoholic cirrhosis of liver with ascites (HCC) Expected: 10/29/2022 (Approximate), Expires: 11/08/2023 [facility] Work Phone: Comment on above: Expected: 10/29/2022 (Approximate), Expi res: 11/08/2023 Start: 10-21-2022 End: 12-21-2022 CBC panel - Blood by Automated count CBC Lab Routine Alcoholic cirrhosis of liver with ascites (HCC) Expected: 10/21/2022, Expires: 12/21/2022 [facility] Work Phone: Comment on above: Expected: 10/21/2022, Expires: 3 Start: 10-21-2022 End: 12-21-2022 Comprehensive metabolic 2000 panel - Serum or Plasma COMP METABOLIC PANEL Lab Routine Alcoholic cirrhosis of liver with ascites (HCC) Expected: 10/21/2022, Expires: 12/21/2022 [facility] Work Phone: Comment on above: Expected: 10/21/2022, Expires: 3 Start: 10-21-2022 End: 12-21-2022 PHOSPHATIDYLETHANOL (PETH) PHOSPHATIDYLETHANOL (PETH) Lab Routine Alcoholic cirrhosis of liver with ascites (HCC) Expected: 10/21/2022, Expires: 12/21/2022 [facility] Work Phone: Comment on above: Expected: 10/21/2022, Expires: 3 Start: 10-21-2022 End: 12-21-2022 PT panel - Platelet poor plasma by Coagulation assay PROTHROMBIN TIME/PT Lab Routine Alcoholic cirrhosis of liver with ascites (HCC) Expected: 10/21/2022, Expires: 12/21/2022 [facility] Work Phone: Comment on above: Expected: 10/21/2022, Expires: 3 Start: 08-24-2022 DEPRESSION ASSESSMENT DEPRESSION ASSESSMENT [facility] Start: 07-31-2022 End: 09-30-2022 CBC panel - Blood by Automated count CBC Lab Routine Alcoholic cirrhosis of liver with ascites (HCC) Expected: 07/31/2022 (Approximate), Expires: 09/30/2022 [facility] Work Phone: Comment on above: Expected: 07/31/2022 (Approximate), Expi res: 09/30/2022 Start: 07-31-2022 End: 09-30-2022 Comprehensive metabolic 2000 panel - Serum or Plasma COMP METABOLIC PANEL Lab Routine Alcoholic cirrhosis of liver with ascites (HCC) Expected: 07/31/2022 (Approximate), Expires: 09/30/2022 [facility] Work Phone: Comment on above: Expected: 07/31/2022 (Approximate), Expi res: 09/30/2022 Start: 07-31-2022 End: 09-30-2022 HERPES SIMPLEX TYPE 1 AND 2 IG HERPES SIMPLEX TYPE 1 AND 2 IG Lab Routine Alcoholic cirrhosis of liver with ascites (HCC) Expected: 07/31/2022 (Approximate), Expires: 09/30/2022 [facility] Work Phone: Comment on above: Expected: 07/31/2022 (Approximate), Expi res: 09/30/2022 Start: 07-31-2022 End: 06-26-2023 LIVER REC HLA AB SCREEN LIVER REC HLA AB SCREEN ALLOGEN JOSS Alcoholic cirrhosis of liver with ascites (HCC) Expected: 07/31/2022 (Approximate), Expires: 06/26/2023 [facility] Work Phone: Comment on above: Expected: 07/31/2022 (Approximate), Expi res: 06/26/2023 Start: 07-31-2022 End: 09-30-2022 PHOSPHATIDYLETHANOL (PETH) PHOSPHATIDYLETHANOL (PETH) Lab Routine Alcoholic cirrhosis of liver with ascites (HCC) Expected: 07/31/2022 (Approximate), Expires: 09/30/2022 [facility] Work Phone: Comment on above: Expected: 07/31/2022 (Approximate), Expi res: 09/30/2022 Start: 07-31-2022 End: 09-30-2022 PT panel - Platelet poor plasma by Coagulation assay PROTHROMBIN TIME/PT Lab Routine Alcoholic cirrhosis of liver with ascites (HCC) Expected: 07/31/2022 (Approximate), Expires: 09/30/2022 [facility] Work Phone: Comment on above: Expected: 07/31/2022 (Approximate), Expi res: 09/30/2022 Start: 07-31-2022 End: 09-30-2022 TYPE + SCREEN TYPE + SCREEN Blood Bank Routine Alcoholic cirrhosis of liver with ascites (HCC) Expected: 07/31/2022 (Approximate), Expires: 09/30/2022 [facility] Work Phone: Comment on above: Expected: 07/31/2022 (Approximate), Expi res: 09/30/2022 Start: 05-12-2022 End: 04-30-2023 25-hydroxyvitamin D3 [Mass/volume] in Serum or Plasma VITAMIN D 25 HYDROXY Lab Routine Alcoholic cirrhosis of liver with ascites (HCC) Liver transplant candidate Expected: 05/12/2022, Expires: 04/30/2023 [facility] Work Phone: Comment on above: Expected: 05/12/2022, Expires: 3 Start: 05-12-2022 End: 04-30-2023 ALPHA 1 ANTITRYPSIN PHENOTYPE ALPHA 1 ANTITRYPSIN PHENOTYPE Lab Routine Alcoholic cirrhosis of liver with ascites (HCC) Liver transplant candidate Expected: 05/12/2022, Expires: 04/30/2023 [facility] Work Phone: Comment on above: Expected: 05/12/2022, Expires: 3 Start: 05-12-2022 End: 04-30-2023 Alpha tocopherol [Mass/volume] in Serum or Plasma VITAMIN E/TOCOPHEROL Lab Routine Alcoholic cirrhosis of liver with ascites (HCC) Liver transplant candidate Expected: 05/12/2022, Expires: 04/30/2023 [facility] Work Phone: Comment on above: Expected: 05/12/2022, Expires: 3 Start: 05-12-2022 End: 04-30-2023 Pkust-[id number] [Mass/volume] in Serum or Plasma ALPHA FETOPROTEIN BL Lab Routine Alcoholic cirrhosis of liver with ascites (HCC) Liver transplant candidate Expected: 05/12/2022, Expires: 04/30/2023 [facility] Work Phone: Comment on above: Expected: 05/12/2022, Expires: 3 Start: 05-12-2022 End: 04-30-2023 aPTT in Platelet poor plasma by Coagulation assay ACTIVATED PTT Lab Routine Alcoholic cirrhosis of liver with ascites (HCC) Liver transplant candidate Expected: 05/12/2022, Expires: 04/30/2023 [facility] Work Phone: Comment on above: Expected: 05/12/2022, Expires: 3 Start: 05-12-2022 End: 04-30-2023 Basic metabolic 2000 panel - Serum or Plasma BASIC METABOLIC PNL Lab Routine Alcoholic cirrhosis of liver with ascites (HCC) Liver transplant candidate Expected: 05/12/2022, Expires: 04/30/2023 [facility] Work Phone: Comment on above: Expected: 05/12/2022, Expires: 3 Start: 05-12-2022 End: 04-30-2023 BLOOD TB SCREEN BLOOD TB SCREEN Lab Routine Alcoholic cirrhosis of liver with ascites (HCC) Liver transplant candidate Expected: 05/12/2022, Expires: 04/30/2023 [facility] Work Phone: Comment on above: Expected: 05/12/2022, Expires: 3 Start: 05-12-2022 End: 04-30-2023 CBC W Auto Differential panel - Blood CBC + DIFF Lab STAT Alcoholic cirrhosis of liver with ascites (HCC) Liver transplant candidate Expected: 05/12/2022, Expires: 04/30/2023 [facility] Work Phone: Comment on above: Expected: 05/12/2022, Expires: 3 Start: 05-12-2022 End: 04-30-2023 Chronic hepatitis differentiation between hepatitis B and C virus panel - Serum or Plasma HEP REMOTE PANEL BL Lab Routine Alcoholic cirrhosis of liver with ascites (HCC) Liver transplant candidate Expected: 05/12/2022, Expires: 04/30/2023 [facility] Work Phone: Comment on above: Expected: 05/12/2022, Expires: 3 Start: 05-12-2022 End: 05-30-2023 Ct abdomen w/contrast material CT LIVER W IVCON Radiology Routine Alcoholic cirrhosis of liver with ascites (HCC) Liver transplant candidate Expected: 05/12/2022, Expires: 05/30/2023 [facility] Work Phone: Comment on above: Expected: 05/12/2022, Expires: 3 Start: 05-12-2022 End: 05-30-2023 Ct thorax w/o contrast material CT CHEST WO IVCON Radiology Routine Alcoholic cirrhosis of liver with ascites (HCC) Liver transplant candidate Expected: 05/12/2022, Expires: 05/30/2023 [facility] Work Phone: Comment on above: Expected: 05/12/2022, Expires: 3 Start: 05-12-2022 End: 04-30-2023 Cytomegalovirus IgG Ab [Units/volume] in Serum or Plasma CMV IGG ANTIBODY BL Lab Routine Alcoholic cirrhosis of liver with ascites (HCC) Liver transplant candidate Expected: 05/12/2022, Expires: 04/30/2023 [facility] Work Phone: Comment on above: Expected: 05/12/2022, Expires: 3 Start: 05-12-2022 End: 04-30-2023 ECG COMPLETE ECG COMPLETE ECG Routine Alcoholic cirrhosis of liver with ascites (HCC) Liver transplant candidate Expected: 05/12/2022, Expires: 04/30/2023 [facility] Work Phone: Comment on above: Expected: 05/12/2022, Expires: 3 Start: 05-12-2022 End: 09-07-2023 Echocardiography ECHO Cardiology Routine Alcoholic cirrhosis of liver with ascites (HCC) Liver transplant candidate Expected: 05/12/2022, Expires: 04/30/2023 [facility] Work Phone: Comment on above: Expected: 05/12/2022, Expires: 3 Start: 05-12-2022 End: 04-30-2023 Татьяна Marino virus capsid IgG Ab [Units/volume] in Serum ТАТЬЯНА-MARINO VCA IGG Lab Routine Alcoholic cirrhosis of liver with ascites (HCC) Liver transplant candidate Expected: 05/12/2022, Expires: 04/30/2023 [facility] Work Phone: Comment on above: Expected: 05/12/2022, Expires: 3 Start: 05-12-2022 End: 04-30-2023 Ferritin [Mass/volume] in Serum or Plasma FERRITIN BLD Lab Routine Alcoholic cirrhosis of liver with ascites (HCC) Liver transplant candidate Expected: 05/12/2022, Expires: 04/30/2023 [facility] Work Phone: Comment on above: Expected: 05/12/2022, Expires: 3 Start: 05-12-2022 End: 04-30-2023 Hepatic function 2000 panel - Serum or Plasma HEPATIC FUNCTION PNL Lab Routine Alcoholic cirrhosis of liver with ascites (HCC) Liver transplant candidate Expected: 05/12/2022, Expires: 04/30/2023 [facility] Work Phone: Comment on above: Expected: 05/12/2022, Expires: 3 Start: 05-12-2022 End: 04-30-2023 HEPATITIS A ANTIBODY, IGG HEPATITIS A ANTIBODY, IGG Lab Routine Alcoholic cirrhosis of liver with ascites (HCC) Liver transplant candidate Expected: 05/12/2022, Expires: 04/30/2023 [facility] Work Phone: Comment on above: Expected: 05/12/2022, Expires: 3 Start: 05-12-2022 End: 04-30-2023 HIV 1+2 Ab [Presence] in Serum or Plasma by Immunoassay HIV 1 2 COMBO(AG/AB),WITH REFLEX TO DIFFERENTIATION Lab Routine Alcoholic cirrhosis of liver with ascites (HCC) Liver transplant candidate Expected: 05/12/2022, Expires: 04/30/2023 [facility] Work Phone: Comment on above: Expected: 05/12/2022, Expires: 3 Start: 05-12-2022 End: 04-30-2023 Iron and Iron binding capacity panel - Serum or Plasma IRON + TIBC Lab Routine Alcoholic cirrhosis of liver with ascites (HCC) Liver transplant candidate Expected: 05/12/2022, Expires: 04/30/2023 [facility] Work Phone: Comment on above: Expected: 05/12/2022, Expires: 3 Start: 05-12-2022 End: 04-30-2023 Lipid 1996 panel - Serum or Plasma LIPID PANEL BASIC Lab Routine Alcoholic cirrhosis of liver with ascites (HCC) Liver transplant candidate Expected: 05/12/2022, Expires: 04/30/2023 [facility] Work Phone: Comment on above: Expected: 05/12/2022, Expires: 3 Start: 05-12-2022 End: 04-30-2023 LIVER REC INIT W/U LIVER REC INIT W/U ALLOGEN Routine Alcoholic cirrhosis of liver with ascites (HCC) Liver transplant candidate Expected: 05/12/2022, Expires: 04/30/2023 [facility] Work Phone: Comment on above: Expected: 05/12/2022, Expires: 3 Start: 05-12-2022 End: 07-12-2022 PHOSPHATIDYLETHANOL (PETH) PHOSPHATIDYLETHANOL (PETH) Lab Routine Alcoholic cirrhosis of liver with ascites (HCC) Liver transplant candidate Expected: 05/12/2022, Expires: 07/12/2022 [facility] Work Phone: Comment on above: Expected: 05/12/2022, Expires: 2 Start: 05-12-2022 End: 04-30-2023 PT panel - Platelet poor plasma by Coagulation assay PROTHROMBIN TIME/PT Lab STAT Alcoholic cirrhosis of liver with ascites (HCC) Liver transplant candidate Expected: 05/12/2022, Expires: 04/30/2023 [facility] Work Phone: Comment on above: Expected: 05/12/2022, Expires: 3 Start: 05-12-2022 End: 04-30-2023 Retinol [Mass/volume] in Serum or Plasma VITAMIN A/RETINOL Lab Routine Alcoholic cirrhosis of liver with ascites (HCC) Liver transplant candidate Expected: 05/12/2022, Expires: 04/30/2023 [facility] Work Phone: Comment on above: Expected: 05/12/2022, Expires: 3 Start: 05-12-2022 End: 04-30-2023 RUBEOLA (MEASLES)IGG RUBEOLA (MEASLES)IGG Lab Routine Alcoholic cirrhosis of liver with ascites (HCC) Liver transplant candidate Expected: 05/12/2022, Expires: 04/30/2023 [facility] Work Phone: Comment on above: Expected: 05/12/2022, Expires: 3 Start: 05-12-2022 End: 05-30-2023 SPIROMETRY BASELINE ONLY SPIROMETRY BASELINE ONLY PFT Routine Alcoholic cirrhosis of liver with ascites (HCC) Liver transplant candidate Expected: 05/12/2022, Expires: 05/30/2023 [facility] Work Phone: Comment on above: Expected: 05/12/2022, Expires: 3 Start: 05-12-2022 End: 04-30-2023 SYPHILIS TOTAL W/REFLEX SYPHILIS TOTAL W/REFLEX Lab Routine Alcoholic cirrhosis of liver with ascites (HCC) Liver transplant candidate Expected: 05/12/2022, Expires: 04/30/2023 [facility] Work Phone: Comment on above: Expected: 05/12/2022, Expires: 3 Start: 05-12-2022 End: 04-30-2023 Thyrotropin [Units/volume] in Serum or Plasma TSH BLD Lab Routine Alcoholic cirrhosis of liver with ascites (HCC) Liver transplant candidate Expected: 05/12/2022, Expires: 04/30/2023 [facility] Work Phone: Comment on above: Expected: 05/12/2022, Expires: 3 Start: 05-12-2022 End: 07-12-2022 TOX SCREEN ROUT UR TOX SCREEN ROUT UR Lab Routine Alcoholic cirrhosis of liver with ascites (HCC) Liver transplant candidate Expected: 05/12/2022, Expires: 07/12/2022 [facility] Work Phone: Comment on above: Expected: 05/12/2022, Expires: 2 Start: 05-12-2022 End: 04-30-2023 TOXICOLOGY PANEL BLD TOXICOLOGY PANEL BLD Lab Routine Alcoholic cirrhosis of liver with ascites (HCC) Liver transplant candidate Expected: 05/12/2022, Expires: 04/30/2023 [facility] Work Phone: Comment on above: Expected: 05/12/2022, Expires: 3 Start: 05-12-2022 End: 04-30-2023 TRANSPLANT CONFIRM ABO/RH TRANSPLANT CONFIRM ABO/RH Blood Bank Routine Alcoholic cirrhosis of liver with ascites (HCC) Liver transplant candidate Expected: 05/12/2022, Expires: 04/30/2023 [facility] Work Phone: Comment on above: Expected: 05/12/2022, Expires: 3 Start: 05-12-2022 End: 04-30-2023 TYPE + SCREEN TYPE + SCREEN Blood Bank STAT Alcoholic cirrhosis of liver with ascites (HCC) Liver transplant candidate Expected: 05/12/2022, Expires: 04/30/2023 [facility] Work Phone: Comment on above: Expected: 05/12/2022, Expires: 3 Start: 05-12-2022 End: 04-30-2023 VARICELLA ZOSTER IGG VARICELLA ZOSTER IGG Lab Routine Alcoholic cirrhosis of liver with ascites (HCC) Liver transplant candidate Expected: 05/12/2022, Expires: 04/30/2023 [facility] Work Phone: Comment on above: Expected: 05/12/2022, Expires: 3 Start: 04-24-2022 Influenza vaccination INFLUENZA (#1) [facility] Start: 08-24-2021 DEPRESSION ASSESSMENT DEPRESSION ASSESSMENT [facility] Start: 2016 LIPID SCREEN LIPID SCREEN [facility] Start: 2000 HEPATITIS A (1 of 2 - Risk 2-dose series) HEPATITIS A (1 of 2 - Risk 2-dose series) [facility] Start: 2000 Hepatitis A Vaccine (1 of 2 - Risk 2-dose series) Hepatitis A Vaccine (1 of 2 - Risk 2-dose series) [facility] Start: 2000 SHINGRIX VACCINE (1 of 2) SHINGRIX VACCINE (1 of 2) [facility] Start: 1999 ANNUAL PCP TEAM CHRONIC DISEASE VISIT ANNUAL PCP TEAM CHRONIC DISEASE VISIT [facility] Start: 1999 BP CONTROLLED (<130/80) BP CONTROLLED (<130/80) [facility] Start: 1999 HEPATITIS C SCREENING HEPATITIS C SCREENING [facility] Start: 1999 HIV SCREENING HIV SCREENING [facility] Start: 1993 Adult depression screening assessment DEPRESSION SCREENING [facility] Start: 1987 PNEUMOCOCCAL (1 - PCV) PNEUMOCOCCAL (1 - PCV) [facility] Start: 1987 Pneumococcal vaccination Pneumococcal Vaccine (1 - PCV) [facility] Start: 1986 COVID-19 VACCINE (#1) COVID-19 VACCINE (#1) [facility] Start: 1982 HEPATITIS A (1 of 2 - Risk 2-dose series) HEPATITIS A (1 of 2 - Risk 2-dose series) [facility] Start: 1981 COVID-19 VACCINE (#1) COVID-19 VACCINE (#1) [facility] Start: 1981 HEPATITIS B (1 of 3 - 3-dose series) HEPATITIS B (1 of 3 - 3-dose series) [facility] Start: 1981 Hepatitis B Vaccine (1 of 3 - 3-dose series) Hepatitis B Vaccine (1 of 3 - 3-dose series) [facility] ALLOGEN HLA-AB SUM RPT ALLOGEN H LA-AB SUM RPT Lab Routine 11/20/2022 1:04 PM EDT [facility] TOX SCREEN ROUT UR TOX SCREEN RO UT UR Lab Routine Alcoholic cirrhosis of liver with ascites (HCC) Ordered: 10/21/2022 [facility] Work Phone: Comment on above: Ordered: 10/21/2022 [facility] PAVILIO N [facility] Immunizations Immunization Date Immunization Notes Care Provider Alexey villalta 10-14-2022 hepatitis A and hepatitis B vaccine TREVA HART [facility] 03-13-2022 tetanus toxoid, reduced diphtheria toxoid, and acellular pertussis vaccine, adsorbed Daniels SALAM [facility] NEGATED: Highlighted row has not occurred!05-28-2023 influenza virus vaccine, unspecified formulation MAGGY SUAREZ [facility] NEGATED: Highlighted row has not occurred!06-12-2022 influenza virus vaccine, unspecified formulation Daniels SALAM [facility] NEGATED: Highlighted row has not occurred!05-08-2022 influenza virus vaccine, unspecified formulation Daniels SALAM [facility] NEGATED: Highlighted row has not occurred!04-24-2022 influenza virus vaccine, unspecified formulation Daniels SALAM [facility] Payers Date Payer Category Payer Unknown [id number] 2022 Unknown [id number] 1981 Unknown [id number] 1981 Unknown [id number] [id number] 1981 Unknown [id number] 2.16.8 [id number] 1981 Unknown [id number] 2.16.8 [id number] 1981 Unknown [id number] 2.16.8 [id number] 1981 Unknown [id number] 2.16.8 [id number] 1981 Unknown [id number] 2.16.8 [id number] 1981 Unknown [id number] 2.16.8 [id number] 1981 Unknown [id number] 2.16.8 [id number] 1959 Self-pay [id number] Social History Date Type Detail Facility Start: 03-20-2022 End: 09-15-2023 Tobacco smoking status Heavy tobacco smoker (finding) [facility] Tobacco smoking status Never [facility] Start: 05-12-2022 End: 04-15-2023 Sex Assigned At Male [facility] Start: 1980 Sex Assigned At Not on file C [facility] Start: 04-27-2022 End: 05-23-2022 Exposure to SARS-CoV-2 (event) Unable to assess [facility] Start: 05-12-2022 Tobacco smoking stat [facility] Smokes tobacco daily [facility] Work Phone: End: 04-03-2023 History of tobacco use Cigarette Smoker [facility] Work Phone: Start: 05-12-2022 End: 04-15-2023 Cigarettes smoked current (pack per day) - Reported 1 [facility] Start: 05-12-2022 End: 05-22-2023 Tobacco use and exposure Smokeless tobacco non-user [facility] Work Phone: Start: 05-12-2022 End: 05-22-2023 Alcohol intake Ex-drinker (finding) [facility] Start: 05-02-2022 End: 05-14-2022 Exposure to SARS-CoV-2 (event) Not sure [facility] How hard is it for y ou to pay for the very basics like food, housing, medical care, and heating Not very hard [facility] (I/We) worried roro (my/our) food would run out before (I/we) got money to buy more. Never true [facility] In the past 12 month s, was there a time when you were not able to pay the mortgage or rent on time? No [facility] Start: 05-22-2023 Tobacco smoking stat [facility] Ex-smoker [facility] End: 04-03-2023 History of tobacco use Current smoker [facility] Functional Status Date Assessment Result Facility 09-15-2023 Functional Status N/A [facility] 07-18-2022 Functional Status N/A [facility] 06-12-2022 Functional Status N/A [facility] 05-23-2022 Functional Status N/A [facility] 04-30-2022 Functional Status N/A [facility] 04-09-2022 No [facility] 03-20-2022 Functional Status N/A [facility] [place] Clinical Notes 03-20-2022 to 09-15-2023 Telephone Encounter - Christine To RN - 07/07/2023 11:31 AM ESTTelephone Encounter - Mike Lopeznidhi [facility] - 07/07/2023 11:27 AM ESTPatient Amanda Alvarez MD - 05/22/2023 12:15 PM EDT Note Date & Type Note Facility 09-15-2023 Hospital Discharg e instructions Patient Education 09/15/2023 14:09:25 Abdominal Bloating Abdominal Bloating When you have abdominal bloating, your abdomen may feel full, tight, or painful. It may also look bigger than normal or swollen (distended). Common causes of abdominal bloating include: Swallowing air. Constipation. Problems digesting food. Eating too much. Irritable bowel syndrome. This is a condition that affects the large intestine. Lactose intolerance. This is an inability to digest lactose, a natural sugar in dairy products. Celiac disease. This is a condition that affects the ability to digest gluten, a protein found in some grains. Gastroparesis. This is a condition that slows down the movement of food in the stomach and small intestine. It is more common in people with diabetes mellitus. Gastroesophageal reflux disease (GERD). This is a condition that makes stomach acid flow back into the esophagus. Urinary retention. This means that the body is holding onto urine, and the bladder cannot be emptied all the way. Follow these instructions at home: Eating and drinking Avoid eating too much. Try not to swallow air while talking or eating. Avoid eating while lying down. Avoid these foods and drinks: ?Foods that cause gas, such as broccoli, cabbage, cauliflower, and baked beans. ?Carbonated drinks. ?Hard candy. ?Chewing gum. Medicines Take rkou-ypi-qoiqocr and prescription medicines only as told by your health care provider. Take probiotic medicines. These medicines contain live bacteria or yeasts that can help digestion. Take coated peppermint oil capsules. General instructions Try to exercise regularly. Exercise may help to relieve bloating that is caused by gas and relieve constipation. Keep all follow-up visits. This is important. Contact a health care provider if: You have nausea and vomiting. You have diarrhea. You have abdominal pain. You have unusual weight loss or weight gain. You have severe pain, and medicines do not help. Get help right away if: You have chest pain. You have trouble breathing. You have shortness of breath. You have trouble urinating. You have darker urine than normal. You have blood in your stools or have dark, tarry stools. These symptoms may represent a serious problem that is an emergency. Do not wait to see if the symptoms will go away. Get medical help right away. Call your local emergency services (911 in the [place] Do not drive yourself to the hospital. Summary Abdominal bloating means that the abdomen is swollen. Common causes of abdominal bloating are swallowing air, constipation, and problems digesting food. Avoid eating too much and avoid swallowing air. Avoid foods that cause gas, carbonated drinks, hard candy, and chewing gum. This information is not intended to replace advice given to you by your health care provider. Make sure you discuss any questions you have with your health care provider. Document Revised: 03/12/2021 Document Reviewed: 03/12/2021 [employer] Patient Education 2022 [employer]. Follow Up Care 07/31/2023 10:35:13 With:MAGGY SUAREZ PA-C, URL Address: [address] [facility] [place] [address] When: Unknown [facility] 08-26-2023 Note [facility] 07-07-2023 Miscellaneous Notes Patient's request for medication is as follows: Requested Prescriptions Pending Prescriptions Disp Refills fludrocortisone (FLORINEF) 0.1 mg tablet 30 tablet 5 Sig: Take 1 tablet by mouth once daily. Please approve the above prescription(s) to electronically send to pharmacy. Christine To RN Patient requests refill of: Requested Prescriptions Pending Prescriptions Disp Refills fludrocortisone (FLORINEF) 0.1 mg tablet 30 tablet 5 Sig: Take 1 tablet by mouth once daily. If approved, please e-script the attached order to [facility]. Thank you, Fariba Lopez [facility] [phone] documented in this encounter [facility] 07-06-2023 Miscellaneous Notes Patient's request for medication is as follows: please call Dr Amanda Villarreal for the carvedilol and he no longer needs acyclovir. Requested Prescriptions Pending Prescriptions Disp Refills fludrocortisone (FLORINEF) 0.1 mg tablet 30 tablet 4 Sig: Take 1 tablet by mouth once daily. Please approve the above prescription(s) to electronically send to pharmacy. Christine To RN Can patient stop acyclovir? Patient requests refill of: Requested Prescriptions Pending Prescriptions Disp Refills fludrocortisone (FLORINEF) 0.1 mg tablet 30 tablet 2 Sig: Take 1 tablet by mouth once daily. carvedilol (COREG) 12.5 mg tablet 60 tablet 2 Sig: Take 1 tablet by mouth twice daily with meals. acyclovir (ZOVIRAX) 400 mg tablet 60 tablet 0 Sig: Take 1 tablet by mouth twice daily. If approved, please e-script the attached order to [facility]. Thank you, Jenny Singh [facility] [phone] documented in this encounter [facility] 07-03-2023 Miscellaneous Notes Noted tacrolimus levels 9 and now 12, plan to lower to 3mg bid and continue to monitor labs. Per my r/w M> STEPAN Saucedo. Patient's request for medication is as follows: Requested Prescriptions Pending Prescriptions Disp Refills tacrolimus IR (PROGRAF) 1 mg capsule 180 capsule 11 Sig: Take 3 capsules by mouth two times a day. Please approve the above prescription(s) to electronically send to pharmacy. Christine To RN documented in this encounter [facility] 06-08-2023 Miscellaneous Notes Noted that there were 3 tacro levels put in under 05/25/23 but with entry dates of 05/26, 05/29 and 06/05- the one for 06/01 was entered correctly. I called to the reference lab to have them investigate the error and then d/w our staff the low fk level of 4.2 was from 06/05. We called to the pt, explained the issue and then asked him to increase the tacrolimus by 1mg now and then back to 4mg bid tonight. Rosa verbalized understanding of above instructions and will call with report or sooner PRN. Patient's request for medication is as follows: Requested Prescriptions Pending Prescriptions Disp Refills tacrolimus IR (PROGRAF) 1 mg capsule 240 capsule 11 Sig: Take 4 capsules by mouth two times a day. Please approve the above prescription(s) to electronically send to pharmacy. BAO Washington RN (Molly), BSN, [facility] Liver Hl7 Developer documented in this encounter [facility] 06-06-2023 Note HNO ID: [id number] Author: Note, Interface Service: ? Author Type: ? Type: Progress Notes Filed: 06/06/2023 2:30 AM Note Text: Epic Scheduled Downtime: 06/06/2023 1:00:00 AM to 06/06/2023 1:28:00 AM [facility] 06-04-2023 Note [facility] 05-22-2023 Note [facility] 05-22-2023 Instructions Amanda Villarreal MD - 05/22/2023 1:12 PM EDT Nice to meet you. Your ejection fraction has improved to normal. Continue your carvedilol twice a day. Stop hydralazine and isosorbide, both. Restart losartan 50 mg once a day. Get labs checked in a week. Otherwise I can see you in 6 months time. Goal BP is < 130/80. documented in this encounter [facility] 05-22-2023 History of Presen t illness Narrative Images from the original note were not included. Heart and Vascular [place] [facility] SECTION OF HEART FAILURE and CARDIAC TRANSPLANT MEDICINE OUTPATIENT VISIT DATE May 22, 2023 OUTPATIENT VISIT TYPE New patient PRIMARY CARE PHYSICIAN: Kaushal Stewart MD [address] [place] [id number] CHIEF COMPLAINT: Follow-up NURSING INTAKE (Patient s concerns and/or recent hospitalizations/ER visits): Kathy Haynes is a 43 year old male from [place], [place] here for cardiac evaluation after hospitalization 04/04-04/13/2023: HOSPITAL COURSE: Kathy Haynes is a 42 year old male with history of HTN, current smoker, and EtOH cirrhosis c/b portal HTN, ascites, splenomegaly, thrombocytopenia, EV s/p banding (04/2022) who 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 He is s/p DBD OLT, piggyback, PV main to PV main, donor AQUILES to donor AQUILES, [id number], NMP with organox on 04/04/23. MELD at time of transplant was 21. Patient was transferred to the SICU intubated but off pressors. Crossmatch was negative. No simulect and tacrolimus was started on 04/05/23. Ultrasound of the liver after surgery on 04/04/23 showed patent liver vasculature. He was extubated on 04/05/23. Patient with increased oxygen requirements on 04/06/23 with pulmonary edema on chest xray. He was given lasix postoperatively. He developed an ALISON that improved. He had infiltrates on the chest xray so Levofloxacin was started on 04/06/23 and consult with infectious disease. Levofloxacin was stopped on 04/08/23 as recommended by infectious disease due to no signs of pneumonia. He was weaned from oxygen on 04/08/23. Patient with leukocytosis but normal CRP. He did not show other signs of infection so he was monitored off of antibiotics postoperatively.Patient had a KUB that showed an ileus. Patient was given Miralax and senna with good results. Liver function was improving appropriately. Patient had an ECHO on 04/07/23 which showed a decreased EF of 35% so consult with cardiovascular medicine. Patient sodium was decreasing so he was started on salt tabs. Repeat ECHO on 04/08/23 showed an EF of 40%. Cardiology recommended hydralazine, carvedilol, and isordil. Patient was transferred to [facility] on 04/09/23. Consult with allergy medicine who recommended a test dose with amoxicillin. Patient was monitored off antibiotics but could followup with allergy medicine to assess for penicillin allergy. Physical therapy recommended home with no skilled needs. He was given a bolus of normal saline of 500cc before discharge due to creatinine was 1.40. He was tolerating a diet and having BMs. He was advised to continue with smoking cessation. He was advised to continue with his Suboxone as previously prescribed for his history of substance use.He was given a 5 day supply of oxycodone 5mg every 6 hours as needed for management of his acute postoperative pain after liver transplantation. Patient was stable for discharge to home on April 14, 2023. Mr. Haynes states that since discharge, he states he has been feeling well. His most recent echocardiogram on 05/04 showed an EF of 52%. He is here today for follow up. HF Nursing Assessment: Chest Pain: No Skipping or irregular heartbeats: No Shortness of breath at rest: no Shortness of breath with activity: No Cough: No Waking up in the middle of the night gasping for air: No Lightheadedness or dizziness: No Feeling like you are going to pass out: No Actually passing out: No Poor energy level: No Unintentional weight gain: No Unintentional weight loss: No Swelling in your legs,feet, abdomen: No Filling up quickly when you eat: No HISTORY OF PRESENT ILLNESS: 43 yoM with LV systolic dysfunction and chronic systolic HFrEF secondary to nonischemic CM. Recent OLT as noted above. Last seen by Deangelo Boland in HF clinic here on 04/22/23. Heart feels fine Some exercise - walking around He can walk for a while - standing in one spot feet gets tingly He can ride a bike a couple of blocks Denies chest pain or dyspnea Last 3 Encounter BP Readings: Date: BP: 05/22/2023 149/90 05/22/2023 138/89 04/30/2023 122/77 Last 2 Encounter Wt Readings: Date: Wt: 05/22/2023 92.1 kg (203 lb) 05/22/2023 92.1 kg (203 lb) PAST MEDICAL HISTORY Diagnosis Date Alcoholic cirrhosis (HCC) Ascites Bilateral leg edema COVID-19 virus infection 02/2022 positive home test, mild symptoms Current smoker 04/29/2022 3/4 PPD Hypertension Jaundice Low back pain PAST SURGICAL HISTORY Procedure Laterality Date UNLISTED STOMACH SURGERY stomach surgery as an infant (3 weeks old) SOCIAL HISTORY Social History Tobacco Use Smoking status: Every Day Packs/day: 1.00 Years: 12.00 Additional pack years: 0.00 Total pack years: 12.00 Types: Cigarettes Smokeless tobacco: Never Substance Use Topics Alcohol use: Not Currently Drug use: Yes Types: Marijuana FAMILY HISTORY Problem Relation Age of Onset Diabetes Mother other (liver cirrhosis) Paternal Grandmother ALLERGIES: ALLERGIES Allergen Reactions Penicillins Unknown CURRENT MEDICATIONS: tacrolimus IR (PROGRAF) 1 mg capsule^Take 4 capsules by mouth twice daily.^Disp: 240 capsule^Rfl: 11 magnesium oxide (MAG-OX) 400 mg (241.3 mg magnesium) tablet^Take 2 tablets by mouth twice daily. Separate from Cellcept by 2 hours, so take them at 12pm and 5pm.^Disp: 120 tablet^Rfl: 5 NEURONTIN 100 mg capsule^Take 1 capsule by mouth twice daily for 30 days. Working on lowering dose -bid for one week and then lower to daily and then stop^Disp: 60 capsule^Rfl: 0 aspirin, enteric coated (ECOTRIN LOW STRENGTH) 81 mg EC tablet^Take 1 tablet by mouth once daily.^Disp: 30 tablet^Rfl: 11 torsemide (DEMADEX) 20 mg tablet^Take 2 tablets by mouth once daily.^Disp: 60 tablet^Rfl: 5 fludrocortisone (FLORINEF) 0.1 mg tablet^Take 1 tablet by mouth once daily.^Disp: 30 tablet^Rfl: 2 docusate sodium (COLACE) 100 mg capsule^Take 1 capsule by mouth twice daily.^Disp: 60 capsule^Rfl: [address] (PROTONIX) 40 mg tablet^Take 1 tablet by mouth once daily.^Disp: 30 tablet^Rfl: 1 naloxone 4 mg/actuation nasal spray (NARCAN)^Use 1 spray in one nostril as needed for overdose. May repeat every 2 to 3 min in alternating nostrils until medical assistance is available^Disp: 1 Each^Rfl: 0 nicotine (NICODERM) 21 mg/24 hr^Apply 1 Patch as directed once daily.^Disp: 35 Patch^Rfl: 0 hydrALAZINE (APRESOLINE) 25 mg tablet^Take 1 tablet by mouth every 8 hours.^Disp: 90 tablet^Rfl: 1 isosorbide dinitrate (ISORDIL) 10 mg tablet^Take 1 tablet by mouth three times daily. Take at 9am, 3pm and 9pm^Disp: 90 tablet^Rfl: 1 acyclovir (ZOVIRAX) 400 mg tablet^Take 1 tablet by mouth twice daily.^Disp: 60 tablet^Rfl: 2 carvedilol (COREG) 12.5 mg tablet^Take 1 tablet by mouth twice daily with meals.^Disp: 60 tablet^Rfl: 2 mycophenolate mofetil (CELLCEPT) 250 mg capsule^Take 4 capsules by mouth twice daily.^Disp: 240 capsule^Rfl: 11 sulfamethoxazole-trimethoprim (BACTRIM DS) 800-160 mg per tablet^Take 1 tablet by mouth every Thursday,Thursday,Thursday.^Disp: 15 tablet^Rfl: 11 buprenorphine-naloxone (SUBOXONE) 8-2 mg film^Dissolve 1 Film under the tongue twice daily.^Disp: ^Rfl: REVIEW OF SYSTEMS: CONSTITUTION: Negative for: Fever, Night sweats and Recent weight change HEENT: Negative for: Hearing loss RESPIRATORY: Negative for: Cough and Difficulty breathing GASTROINTESTINAL: Negative for: Melena, Nausea, Diarrhea, Abdominal distention and Early satiety MUSCULOSKELETAL: Negative for: Arthralgias and Myalgias NEUROLOGICAL: SKIN: EYES: Negative for: Visual disturbance CARDIOVASCULAR: Negative for: Chest pain, Leg swelling, Arrhythmia and Pre-syncope GENITOURINARY: Negative for: Difficulty urinating all other systems reviewed and are negative PATIENT ENTERED DATA: KCCQ-12 Scores 04/22/2023 Physical Limitation Score 75 (Class II Heart Failure ) Symptom Frequency Score 56.25 (Class III Heart Failure ) Quality of Life Score 75 (Class II Heart Failure ) Social Limitation Score 75 (Class II Heart Failure) Overall Summary Score 70.31 (Class II Heart Failure ) PHQ-9 04/22/2023 Score 3 PROMIS Global Health - (T-Scores - the mean of general population = 50. Five points is a clinically meaningful difference.) 04/22/2023 Physical T-Score 57.7 Mental T-Score 67.6 PHYSICAL EXAMINATION: BP 138/89 (BP Site: Left Arm, BP Position: Sitting) Pulse 60 Ht 195.6 cm (6' 5 ) Wt 92.1 kg (203 lb) SpO2 98% BMI 24.07 kg/m General: Well appearing, in no acute distress. Skin: No clubbing, no cyanosis. Eyes: Extra ocular movements intact Oropharynx: Teeth in good repair. Neck: No jugular venous distention, no carotid bruits, carotids have a normal upstroke, no palpable thyromegaly. Lungs: Clear to auscultation bilaterally, no wheezing or rhonchi. Heart: Regular rhythm, PMI not displaced, S1, S2 normal, no S3, no S4, no heaves, no rub and no murmur. Abdomen: Soft, nontender, bowel sounds normal, no palpable organomegaly, no bruits. Extremities: No peripheral edema . Grade 2/4 distal pulses bilaterally. Neuro: Oriented to person, place and time, alert, cooperative, gait coordinated. CARDIOVASCULAR MEDICINE TESTING: I have personally reviewed the Electrocardiogram, Chest X-ray, Laboratory Testing, and Echocardiogram. Last ECHO Result Conclusion ECHO Collected: 05/05/2023 12:56 PM (Final result) Impression: CONCLUSIONS: - Exam indication: Limit LV Function - The left ventricle is mildly dilated. There is left ventricular hypertrophy. Left ventricular systolic function is normal. EF = 52 5% (2D biplane) Grade I left ventricular diastolic dysfunction. - Exam was compared with the prior echocardiographic exam performed on 04/08/2023. Improvement in in LV size and LVEF. * * * Final * * * Last EKG Result Conclusion ECG COMPLETE Collected: 04/07/2023 6:13 PM (Final result) Impression: NORMAL SINUS RHYTHM POSSIBLE LEFT ATRIAL ENLARGEMENT PROLONGED QT INTERVAL OR TU FUSION, CONSIDER HYPOKALEMIA ABNORMAL ECG Confirmed by STAN GRACE MD ([id number]) on 04/18/2023 6:09:49 PM Component Latest Ref Rng & Units 05/21/2023 WBC 4.0 - 11.0 10:3/uL 6.0 RBC 4.70 - 6.10 10:6uL 3.74 (A) HGB 14.0 - 18.0 g/dL 12.0 (A) HCT 42.0 - 54.0 % 35.4 (A) MCV 80.0 - 94.0 fL 94.7 (A) MCHC 29.9 - 35.2 g/dL 33.9 Platelet 150 - 450 10:3u/l 162 RDW 11.0 - 15.0 % 13.2 Neutrophil % 43.0 - 75.0 % 57.3 Immature Gran % 0.0 - 0.5 % 0.2 Lymphocyte % 20.5 - 60.0 10:3/uL 26.7 Monocyte % 1.7 - 12.0 10:3u/L 9.1 Eosinophil % 0.9 - 7.0 10:3u/L 5.5 Basophil % 0.2 - 2.0 10:3u/L 1.2 NEUT ABS 1.4 - 6.5 10:3u/L 3.4 LYMPH ABS 1.2 - 3.8 K/uL 1.6 MONO ABS 0.3 - 0.8 K/uL 0.5 EOS ABS 0.0 - 0.7 K/uL 0.3 BASO ABS 0.0 - 0.1 K/uL 0.1 NA 136 - 145 mmol/L 138 K 3.5 - 5.1 mmol/L 5.2 (A) Chloride 98 - 107 mmol/L 104 CO2 21.0 - 32.0 mmol/L 28.5 Glucose 74 - 106 mg/dL 93 BUN 7.0 - 18.0 mg/dL 16.0 Creatinine 0.70 - 1.30 mg/dL 1.25 GFR >=60 mL/MIN >60 (A) GFR AFR AMER >=60 mL/MIN >60 (A) Total Protein 6.4 - 8.2 g/dL 6.6 Albumin 3.4 - 5.0 g/dL 3.6 Calcium 8.5 - 10.1 mg/dL 9.3 Bili Total 0.2 - 1.0 mg/dL 0.5 AST 15 - 37 U/L 17 ALT (SGPT) 16 - 63 U/L 19 Alk Phos Total 46 - 116 U/L 84 GGT 15 - 85 U/L 64 Phosphorus 2.6 - 4.7 mg/dL 3.8 Magnesium 1.8 - 2.4 mg/dL 1.6 (A) CMV DNA Not Detected Not detected Tacrolimus/FK506 5.0 - 20.0 ng/mL 9.8 IMPRESSION: NYHA Functional Class: II Stage: C heart failure Target weight: current 43 yoM with previous LV systolic dysfunction and chronic systolic HFrEF now improved EF doing well. Heart Failure specific medications (list current, note updates or changes, note prior intolerance): BB: Carvedilol 12.5 mg BID ACEI/ARB/ARNI: Losartan 50 mg daily MRA: none SGLT2: none Diuretic: Torsemide 40 mg daily as needed Digoxin: none Vasodilators: none Anti-arrhythmics: none Ivabradine: none Other anti-HTN: none PLAN AND RECOMMENDATIONS: Nice to meet you. Your ejection fraction has improved to normal. Continue your carvedilol twice a day. Stop hydralazine and isosorbide, both. Restart losartan 50 mg once a day. Get labs checked in a week. Otherwise I can see you in 6 months time. Goal BP is < 130/80. I personally interviewed, confirmed and edited the above information as obtained by others I personally spent 60 minutes in total time involved in the management and care of this patient. We discussed natural history of disease, current treatment options, and future potential treatment options. We discussed diet, exercise, other non-medical management as above. Amanda Villarreal MD, [facility] Section Of Heart Failure and Cardiac Transplant Medicine Heart and Vascular [place] [facility] Desk [id number] [place] [address] documented in this encounter [facility] 04-30-2023 Note [facility] 04-30-2023 History of Presen t illness Narrative POST LIVER TRANSPLANT FOLLOW UP Kathy Haynes [id number] Date of Transplant: 04/04/23 Original liver diagnosis: alcoholic cirrhosis Explanted liver:alcoholic cirrhosis Medication List: Current Outpatient Medications Medication Sig tacrolimus IR (PROGRAF) 1 mg capsule Take 4 capsules by mouth twice daily. torsemide (DEMADEX) 20 mg tablet Take 2 tablets by mouth once daily. fludrocortisone (FLORINEF) 0.1 mg tablet Take 1 tablet by mouth once daily. docusate sodium (COLACE) 100 mg capsule Take 1 capsule by mouth twice daily. senna (SENOKOT) 8.6 mg tab Take 1 tablet by mouth twice daily as needed for constipation. sodium chloride 1 gram tab Take 1 tablet by mouth three times daily. pantoprazole DR (PROTONIX) 40 mg tablet Take 1 tablet by mouth once daily. naloxone 4 mg/actuation nasal spray (NARCAN) Use 1 spray in one nostril as needed for overdose. May repeat every 2 to 3 min in alternating nostrils until medical assistance is available nicotine (NICODERM) 21 mg/24 hr Apply 1 Patch as directed once daily. hydrALAZINE (APRESOLINE) 25 mg tablet Take 1 tablet by mouth every 8 hours. isosorbide dinitrate (ISORDIL) 10 mg tablet Take 1 tablet by mouth three times daily. Take at 9am, 3pm and 9pm predniSONE (DELTASONE) 5 mg tablet Take 3 tablets by mouth daily from 04/14-04/17/23. Take 2 tablets daily from 04/18-04/21/23. Take 1 tablet daily from 04/22-04/25/23. acyclovir (ZOVIRAX) 400 mg tablet Take 1 tablet by mouth twice daily. carvedilol (COREG) 12.5 mg tablet Take 1 tablet by mouth twice daily with meals. mycophenolate mofetil (CELLCEPT) 250 mg capsule Take 4 capsules by mouth twice daily. sulfamethoxazole-trimethoprim (BACTRIM DS) 800-160 mg per tablet Take 1 tablet by mouth every Thursday,Thursday,Thursday. buprenorphine-naloxone (SUBOXONE) 8-2 mg film Dissolve 1 Film under the tongue twice daily. NEURONTIN 100 mg capsule Take 1 capsule by mouth three times daily for 60 days. Current Facility-Administered Medications Medication Dose Route Frequency perflutren lipid microspheres 1.3 mL in NaCl (PF) 0.9% 10 mL injection (DEFINITY) INTRAVENOUS DIRECTED PRN sodium chloride 0.9 % (flush) 10 mL (BD POSIFLUSH) 10 mL INTRAVENOUS DIRECTED PRN perflutren lipid microspheres 1.3 mL in NaCl (PF) 0.9% 10 mL injection (DEFINITY) INTRAVENOUS DIRECTED PRN sodium chloride 0.9 % (flush) 10 mL (BD POSIFLUSH) 10 mL INTRAVENOUS DIRECTED PRN Vitals: BP 122/77 Pulse 76 Temp 97 Resp 16 Ht 6' 5 (1.96m) Wt 222 lb (100.7kg) SpO2 99% BMI 26.32 kg/(m^2). PHYSICAL EXAMINATION: General appearance: well appearing, in no acute distress, and alert Skin: skin color, texture, turgor normal, no rashes or lesions Heart: Negative. RRR without murmur, gallop, or rubs. No ectopy Abdomen: soft, ND, NT Hyder removed today Extremities: Extremities normal. No deformities, edema, or skin discoloration. Good capillary refill. Neuro: Negative. ASSESSMENT: Mr. Haynes is a 42 y/o male s/p OLT for ETOH with DBD donor. Post operatively he had an ECHO on 04/07/23 which showed a decreased EF of 35% so consult with cardiovascular medicine. Patient sodium was decreasing so he was started on salt tabs. Repeat ECHO on 04/08/23 showed an EF of 40%. Cardiology recommended hydralazine, carvedilol. He presents to clinic today for his 3 week post txp follow up and staple removal. He looks good and is feeling well, he has lost the excess fluid from last appt PLAN: - Labs - stable liver graft function - IS MMF 1 G bid, Tacrolmus 4 mg bid-->increase to 5mg bid pred taper completed - Torsemide increased by cardiology, and lasix stopped along w/ salt tabs - Cardiology for follow up with ECHO 05/22/23 - Plan to d/c florinef in the next 1-2 weeks - Start baby ASA 81 mg daily - ok to try and wean Neurontin--> TID to BID for now - RTC in 3 weeks *Pt. d/w Dr. Jeronimo Rose S CLARA Saucedo.ELECTRICAL LOGGING OPERATOR documented in this encounter [facility] 04-22-2023 Note [facility] 04-22-2023 Miscellaneous Notes Patient's request for medication is as follows: d/w staff on 04/22/23 , dose increased to 4mg bid and pt notified and dose increased on Thursday night. Requested Prescriptions Pending Prescriptions Disp Refills tacrolimus IR (PROGRAF) 1 mg capsule 240 capsule 11 Sig: Take 4 capsules by mouth twice daily. Please approve the above prescription(s) to electronically send to pharmacy. Christine To RN (Molly), BSN, [facility] Liver Hl7 Developer documented in this encounter [facility] 04-17-2023 Miscellaneous Notes Received a call from Kathy Haynes's s/o Rosa to clarify if lasix needs to be taken every day per clinic visit notes on 04/15/23 or per d/c instructions (only if sustained weight gain of 2-3lbs in 48hr period) Rosa stated pt has been between 205 and 208lbs, has gained 1-2lbs since leaving hospital. Instructed to have pt weigh himself same time every morning, after he has urinated, being mindful/ consistent of amount of clothing that he is wearing when weighing. Pt has been having frequent stools and instructed to decrease amount of laxatives/ stool softeners that pt is taking, goal of having at least 1 BM/ day. Rosa denies diarrhea, but rather frequent soft stools. Reached out to Dr. Gomez to clarify on lasix dose and will update Rosa. Instructed to follow d/c instructions for lasix per cardiology recs at this time unless instructed otherwise by Dr. Gomez. Noted cards appt scheduled for next week, instructed Rosa details in MyChart Instructed to call for any further issues or questions. Annamaria Hickey RN, BSN Liver Hl7 Developer documented in this encounter [facility] 04-16-2023 Miscellaneous Notes Reached out to Kathy Haynes'eden s/o Rosa and drainage from drain removal site improved after additional stitch placed yesterday. They had started florinef and have increased sodium as instructed yesterday. Rosa requesting letter stating that pt is not able work at this time. Reviewed that I will include 3 months post transplant and will reassess at that time. Reviewed that we want our patients back to work when able, goal is 3 months transplant. Instructed to call for any further issues or questions. Annamaria Hickey RN, BSN Liver Hl7 Developer documented in this encounter [facility] 04-15-2023 Note [facility] 04-15-2023 History of Presen t illness Narrative Images from the original note were not included. Patient Name: Kathy Haynes Date of Service: April 15, 2023 Kathy Haynes is a 42 yo male with a h/o EtOH related cirrhos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 Currently patient is feeling well, ambulating, tolerating diet. Denies fevers or chills. His main reported issue is significant draining from his drain sites. Also reporting some constipation for which he is taking miralax and colace. Otherwise no particular complaints. PHYSICAL EXAMINATION BP 124/75 Pulse 74 Temp 97.1 Resp 16 Ht 6' 5.008 (1.96m) Wt 205 lb (93.0kg) SpO2 99% BMI 24.30 kg/(m^2). Gen: alert, cooperative, not jaundice, NAD CV: RRR Resp: Unlabored on RA Abd: soft, ND, NT, incision healing well. Drain sites with fluid actively draining (sutured at bedside) Ext: warm, bilateral lower extremity pitting edema present Medications: Current Outpatient Medications on File Prior to Visit Medication Sig docusate sodium (COLACE) 100 mg capsule Take 1 capsule by mouth twice daily. senna (SENOKOT) 8.6 mg tab Take 1 tablet by mouth twice daily as needed for constipation. oxyCODONE IR (ROXICODONE) 5 mg immediate release tablet Take 1 tablet by mouth every 6 hours as needed for up to 5 days. sodium chloride 1 gram tab Take 1 tablet by mouth three times daily. pantoprazole DR (PROTONIX) 40 mg tablet Take 1 tablet by mouth once daily. naloxone 4 mg/actuation nasal spray (NARCAN) Use 1 spray in one nostril as needed for overdose. May repeat every 2 to 3 min in alternating nostrils until medical assistance is available nicotine (NICODERM) 21 mg/24 hr Apply 1 Patch as directed once daily. hydrALAZINE (APRESOLINE) 25 mg tablet Take 1 tablet by mouth every 8 hours. isosorbide dinitrate (ISORDIL) 10 mg tablet Take 1 tablet by mouth three times daily. Take at 9am, 3pm and 9pm furosemide (LASIX) 40 mg tablet Take 1 tablet by mouth once daily as needed. only take one dose if 2-3 pound weight gain that is persistent over 48 hours(2 days) predniSONE (DELTASONE) 5 mg tablet Take 3 tablets by mouth daily from 04/14-04/17/23. Take 2 tablets daily from 04/18-04/21/23. Take 1 tablet daily from 04/22-04/25/23. acyclovir (ZOVIRAX) 400 mg tablet Take 1 tablet by mouth twice daily. carvedilol (COREG) 12.5 mg tablet Take 1 tablet by mouth twice daily with meals. mycophenolate mofetil (CELLCEPT) 250 mg capsule Take 4 capsules by mouth twice daily. sulfamethoxazole-trimethoprim (BACTRIM DS) 800-160 mg per tablet Take 1 tablet by mouth every Thursday,Thursday,Thursday. tacrolimus IR (PROGRAF) 1 mg capsule Take 3 capsules by mouth twice daily. nystatin (MYCOSTATIN) 100,000 units/mL oral liquid Take 5 mL by mouth four times daily for 15 days. Swish and swallow. buprenorphine-naloxone (SUBOXONE) 8-2 mg film Dissolve 1 Film under the tongue twice daily. NEURONTIN 100 mg capsule Take 1 capsule by mouth three times daily for 60 days. Current Facility-Administered Medications on File Prior to Visit Medication perflutren lipid microspheres 1.3 mL in NaCl (PF) 0.9% 10 mL injection (DEFINITY) sodium chloride 0.9 % (flush) 10 mL (BD POSIFLUSH) perflutren lipid microspheres 1.3 mL in NaCl (PF) 0.9% 10 mL injection (DEFINITY) sodium chloride 0.9 % (flush) 10 mL (BD POSIFLUSH) LABORATORY RESULTS: WBC 15.62 04/15/2023 Hemoglobin 10.9 04/15/2023 Hematocrit 32.5 04/15/2023 Platelet Count 153 04/15/2023 Glucose 88 04/15/2023 BUN 17 04/15/2023 Creatinine 1.21 04/15/2023 Sodium 131 04/15/2023 Potassium 4.8 04/15/2023 Chloride 98 04/15/2023 CO2 27 04/15/2023 Albumin 2.7 04/15/2023 Calcium, Total 8.3 04/15/2023 Alkaline Phosphatase 92 04/15/2023 Bilirubin, Total 0.6 04/15/2023 AST 28 04/15/2023 ALT 39 04/15/2023 Explant Pathology: FINAL DIAGNOSIS A. [place] liver and gallbladder, total hepatectomy and cholecystectomy: - Cirrhosis. See comment A - Mild chronic cholecystitis with cholelithiasis. B. Donor gallbladder, cholecystectomy: - Acute hemorrhagic cholecystitis with mucosal reactive changes. C. Donor liver, wedge biopsy: - Subcapsular hepatic parenchyma with mild ischemia/reperfusion injury. See comment C ASSESSMENT/PLAN: Kathy Haynes is a 42 yo male with a h/o EtOH related cirrhosis s/p DBD-OLT on 04/04/23 Impression: Status post liver transplant. Doing well. - Liver function: Stable graft function. - Immunosuppression: Currently on FK 3 mg BID, MMF 1g BID, and prednisone taper. Therapeutic drug levels on current immunosuppressants. No change in IS - Lower extremity edema and ascites: continue Lasix dose increased to 40 mg daily, continue to monitor - Leukocytosis: downtrending, no current signs and symptoms of infection. Will continue to monitor. - Hyponatremia: Patient instructed to increase salt intake and limit free water. Florinef 0.1 mg daily ordered. - Explant pathology discussed with patient - Decreased EF ~40% after transplant - Asymptomatic. Has scheduled follow up with cardiology - appreciate recommendations - RTC in 2 weeks for staple removal Selma Gomez MD documented in this encounter [facility] 04-14-2023 Miscellaneous Notes Follow up phone call to [facility] where Kathy Haynes was recently discharged Reviewed and verified that they will be going to lab tomorrow 04/15/23 as in-pt team would like to see labs prior to appt. [facility] provided list of lab locations, likely will go to [place] or [place] location. Reminded to go in the morning prior to labs Reviewed and verified medication list. No issues setting up pill box [facility] had reported that pt had taken 20mg lasix as he was feeling swollen . Reviewed that per in-pt sign out, pt should only take lasix for weight gain of 2-3lbs in 48hrs. Pt reports continued weight loss, no weight gain. Reviewed vital signs and frequency. BP/ HR twice daily, weight and temperature daily Continues to lose weight Reviewed any current pain issues, prescribed pain meds and non-pharmacological interventions. - rotating oxycodone and tylenol, trying to wean myself off pain meds with the constipation . Moved BM's yesterday but still feels constipated- instructed to take stool softeners and can take miralax daily as well, until resolved. Reviewed upcoming appointments- Future Appointments Date Time Provider Department Center 04/15/2023 1:15 PM Surgeons, Liver [facility]CTMN [facility] 04/22/2023 3:00 PM Deangelo Boland APRN.ELECTRICAL LOGGING OPERATOR CARD [facility] 04/30/2023 3:30 PM Selma Gomez MD TXCTMN [facility] 05/05/2023 12:30 PM CARD SURGICAL ECHO MAIN JB2 CAFSMN [facility] 05/22/2023 12:15 PM Amanda Villarreal MD CARD [facility] Reviewed wounds, drains and dressing changes. - drain site removal leaking, [facility] thinks could use additional stitch- will assess tomorrow 04/15/23 and instructed to change dressing as needed. No s/s infection Reviewed nutritional status and supplements currently being used. - eating well with no nausea, no diarrhea. Drinking at least 64oz water/ day Reviewed office contact and after hours contact; [phone], coordinator contact Annamaria Hickey, BAO Liver Hl7 Developer documented in this encounter [facility] 04-13-2023 Note [facility] 04-12-2023 Note [facility] 04-12-2023 Note [facility] 04-11-2023 Note [facility] 04-10-2023 Note [facility] 04-09-2023 Note [facility] 04-09-2023 Note [facility] 04-08-2023 Note [facility] 04-08-2023 Note [facility] 04-07-2023 Note [facility] 04-07-2023 Note [facility] 04-06-2023 Note [facility] 04-06-2023 Note [facility] 04-06-2023 Note [facility] 04-05-2023 Note [facility] 04-05-2023 Note [facility] 04-05-2023 Note [facility] 04-04-2023 Note [facility] 04-04-2023 Note [facility] 04-04-2023 Note [facility] 04-04-2023 Note [facility] 04-04-2023 Note [facility] 04-04-2023 Note [facility] 04-04-2023 Note HNO ID: [id number] Author: Note, Interface Service: ? Author Type: ? Type: Progress Notes Filed: 04/04/2023 2:25 AM Note Text: Epic Scheduled Downtime: 04/04/2023 1:00:13 AM to 04/04/2023 2:13:13 AM [facility] 04-04-2023 Miscellaneous Notes Called and informed pt of a liver offer per Dr. Gomez. Informed pt that donors are tested prior to organ donation and the tests that are used to look for HIV, HCV and HBV are extremely good. However, as with every test, there can be a small chance that the test is negative even if the virus is present. A negative test might occur if the donor had a very recent infection. For this reason, we try to identify donors who have potential exposures for HIV, HCV or HBV in the last month that might be missed by our testing. The chance of dying while waiting for another organ offer may be greater than the risk of infection. While this risk is very low, it is important for all organ recipients to know that a small risk exists and for this reason all recipients will be tested for these viruses after transplantation. Donor is DCD No Donor has tested positive for COVID: No Patient has been informed that extra vessel/s may be used for the procedure and may be from a donor organ that has risk factors present for undetected HIV, HBV, and HCV infection. Explained that the donor was tested prior to organ donation, however, there can be a small chance that the test is negative even if the virus is present. The risk of transmission is very low but not zero. For this reason, all recipients are tested for these viruses after transplant. Pt agreed to come to the [facility] for potential liver transplant. Explained the possibility of a dry run and also the possibility of waiting prior to surgery for an extended period of time. Instructed the patient to stop eating and drinking at this time. Coordinator Contact information was provided to the patient and the patient was instructed to report to admitting unit for COVID testing. Gave them contact info to [facility] [phone] and [facility] [phone]. Pt informed to bring medications from home. All questions answered at this time. Contact information was provided to the patient. K score 80% Pawel Machuca RN documented in this encounter [facility] 04-03-2023 Note [facility] 04-02-2023 History of Past i llness Narrative Problem Noted Date Diagnosed Date Resolved Date Nicotine use disorder, F17.2 04/02/2023 05/22/2023 Last Assessment & Plan: Assessment: active tobacco use, 2 packs per day up to the day of transplant Plan: nicotine patch encourage cessation nicotine gum PRN documented as of this encounter (statuses as of 06/02/2023) [facility]08-10-2023 History of Past illness Narrative* Problem Noted Date Diagnosed Date Resolved Date Nicotine use disorder, F17.2 04/02/2023 05/22/2023 Last Assessment & Plan: Assessment: active tobacco use, 2 packs per day up to the day of transplant Plan: nicotine patch encourage cessation nicotine gum PRN documented as of this encounter (statuses as of 06/09/2023) [facility]08-10-2023 History of Past illness Narrative* Problem Noted Date Diagnosed Date Resolved Date Nicotine use disorder, F17.2 04/02/2023 05/22/2023 Last Assessment & Plan: Assessment: active tobacco use, 2 packs per day up to the day of transplant Plan: nicotine patch encourage cessation nicotine gum PRN documented as of this encounter (statuses as of 07/03/2023) [facility]-10-2023 History of Past illness Narrative* Problem Noted Date Diagnosed Date Resolved Date Nicotine use disorder, F17.2 04/02/2023 05/22/2023 Last Assessment & Plan: Assessment: active tobacco use, 2 packs per day up to the day of transplant Plan: nicotine patch encourage cessation nicotine gum PRN documented as of this encounter (statuses as of 07/07/2023) [facility]08-10-2023 History of Past illness Narrative* Problem Noted Date Diagnosed Date Resolved Date Nicotine use disorder, F17.2 04/02/2023 05/22/2023 Last Assessment & Plan: Assessment: active tobacco use, 2 packs per day up to the day of transplant Plan: nicotine patch encourage cessation nicotine gum PRN documented as of this encounter (statuses as of 07/07/2023) [facility]08-10-2023 History of Past illness Narrative* Problem Noted Date Diagnosed Date Resolved Date Nicotine use disorder, F17.2 04/02/2023 05/22/2023 Last Assessment & Plan: Assessment: active tobacco use, 2 packs per day up to the day of transplant Plan: nicotine patch encourage cessation nicotine gum PRN documented as of this encounter (statuses as of 07/19/2023) [facility] History of Past illness Narrative* Problem Noted Date Diagnosed Date Resolved Date Nicotine use disorder, F17.2 04/02/2023 05/22/2023 Last Assessment & Plan: Assessment: active tobacco use, 2 packs per day up to the day of transplant Plan: nicotine patch encourage cessation nicotine gum PRN documented as of this encounter (statuses as of 07/22/2023) [facility] History of Past illness Narrative* Problem Noted Date Diagnosed Date Resolved Date Nicotine use disorder, F17.2 04/02/2023 05/22/2023 Last Assessment & Plan: Assessment: active tobacco use, 2 packs per day up to the day of transplant Plan: nicotine patch encourage cessation nicotine gum PRN documented as of this encounter (statuses as of 07/23/2023) [facility] History of Past illness Narrative* Problem Noted Date Diagnosed Date Resolved Date Nicotine use disorder, F17.2 04/02/2023 05/22/2023 Last Assessment & Plan: Assessment: active tobacco use, 2 packs per day up to the day of transplant Plan: nicotine patch encourage cessation nicotine gum PRN documented as of this encounter (statuses as of 07/23/2023) [facility] History of Past illness Narrative* Problem Noted Date Diagnosed Date Resolved Date ALISON (acute kidney injury) 04/01/2023 documented as of this encounter (statuses as of 04/04/2023) [facility] History of Past illness Narrative* Problem Noted Date Diagnosed Date Resolved Date ALISON (acute kidney injury) 04/01/2023 documented as of this encounter (statuses as of 04/04/2023) [facility]08-08-2023 Miscellaneous Notes* Telephone Encounter - Hortensia Angeles RN - 03/31/2023 3:26 PM EDT Patient had labs drawn at [facility] yesterday and they are scanned into [employer]. Creat went up to 2.2 which is new for him. He is lsited and MELD is 25. Reviewed with Dr. Velázquez since I was unable to reach Dr Stephanie Wolff- she advised direct admission to work him up for ALISON vs HRS. Of note patient has been having some flank pain. Instructed to stop his diuretics and stop his coreg. Direct admission request called into bed management and they will call girlfriennirav Madrigal once bedis ready. Patient is currently at work today til 5pm. [facility] Miscellaneous Notes* Telephone Encounter - Hortensia Angeles RN - 03/31/2023 3:16 PM EDT Spoke with Girlfriend Kaitlin, advised that patient is listed for liver transplant, MELD 25. Lab results used for listing obtained at [facility] dated 03/30/23: Na 134, Cr 2.2, TB 3.2, Alb 3.8, INR 1.5. Pt reports encephalopathy: none and ascites: some. Advised Kaitlin to call the office with changesin phone/address/medical insurance/worsening medical condition/local hospitalizations. Pt informed on how to access post liver transplant educational information online at [email or web address] (login: liver). Upcoming appointments reviewed, importance of maintaining f/u appointments was discussed. Is pt on dialysis at time of listing? No Does pt have a living donor? No Patient is willing to accept a Hepatitis C positive donor: Yes Per discussion at selection committee, pt can receive a DCD donor: Yes KARNO[place]KY INDEX SCALE (Adult patients aged 18 and older) - Used to rate a patient's functional status before and after a medical procedure: 80 - Normal activity with effort: some signs or symptoms of disease. 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 Transplant Coordinators performing verification: 1. Hortensia Angeles RN, BSN, CCTC 2. Elizabeth Lamar RN, MSN, CCTC Patient has been added to the [facility] waiting list. report given to donor coordinator: Pawel Angeles RN Pre-Hl7 Developer [facility] History of Present illness Narrative* Treva Loera MD - 03/23/2023 2:57 PM EDT virtual visit [facility] He has a PMHx of: - alcohol associated cirrhosis c/b ascites, varices - scoliosis was presented to selection again in November 2022 deferred bec too well, amd to verify cirrhosis in the absence of a liver biopsy CT scan showed below. he is tired a lot , c/o peripheral neuropathy Liver History: Etiology: Alcohol associated cirrhosis diagnosed March 2022 Diagnosed: imaging Last Imaging: March 2022. No hepatic lesions, cirrhosis Last EGD: 05/01/2022 MELD 3.0: 18 at 01/20/2023 1:13 PM MELD-Na: 19 at 01/20/2023 1:13 PM Calculated from: Serum Creatinine: 1.15 mg/dL at 01/20/2023 1:13 PM Serum Sodium: 133 mmol/L at 01/20/2023 1:13 PM Total Bilirubin: 4.0 mg/dL at 01/20/2023 1:13 PM Serum Albumin: 3.8 g/dL (Using max of 3.5 g/dL) at 01/20/2023 1:13 PM INR(ratio): 1.3 at 01/20/2023 1:13 PM Age at listing (hypothetical): 42 years Sex: Male at 01/20/2023 1:13 PM Complications of Cirrhosis: 1. Ascites: Yes, never had a paracentesis 2. SBP: No 3. Non-bleeding varices: Yes 4. Variceal hemorrhage: No 5. Portosystemic encephalopathy: No 6. Hepatorenal syndrome: No 7. Hepatopulmonary syndrome: No 8. Hepatic hydrothorax: No 9. Recurrent cholangitis (PSC): N/A PAST MEDICAL HISTORY Diagnosis Date Alcoholic cirrhosis (HCC) Ascites Bilateral leg edema COVID-19 virus infection 02/2022 positive home test, mild symptoms Current smoker 04/29/2022 3/4 PPD Hypertension Jaundice Low back pain PAST SURGICAL HISTORY Procedure Laterality Date UNLISTED STOMACH SURGERY stomach surgery as an (3 weeks old) pyloroplasy as a baby psoriasis Social History Social History Tobacco Use Smoking status: Every Day Packs/day: 1.00 Years: 12.00 Total pack years: 12.00 Types: Cigarettes Smokeless tobacco: Never Substance Use Topics Alcohol use: Not Currently Drug use: Yes Types: Marijuana Family Hisotry FAMILY HISTORY Problem Relation Age of Onset Diabetes Mother other (liver cirrhosis) Paternal Grandmother Medications Medications reviewed: Yes No current outpatient medications on file prior to visit. Current Facility-Administered Medications on File Prior to Visit Medication perflutren lipid microspheres 1.3 mL in NaCl (PF) 0.9% 10 mL injection (DEFINITY) sodium chloride 0.9 % (flush) 10 mL (BD POSIFLUSH) Allergies ALLERGIES Allergen Reactions Penicillins Unknown Review of Systems: 14 point ROS -ve except as mentioned in the HPI o/e: video visit EGD done a few times, banded, last time was done by Dr Pepe in June Selection Committee 11/2022: This is a 42 yr old male with alcoholic cirrhosis. He has been deferred at this time as his latest ultrasound did not show cirrhosis and his MELD score is improving. He needs a follow up catscan and f/u with Dr Lora Wolff then to determine if liver biopsy is needed- as he may cont to improve and not need transplant. US:10/2022 IMPRESSION: PATENT HEPATIC VASCULATURE WITH APPROPRIATELY DIRECTED FLOW. MILDLY HETEROGENEOUS HEPATIC ECHOTEXTURE WITHOUT OVERT CIRRHOTIC MORPHOLOGY. NO HEPATIC LESION. 12/2022 IMPRESSION: Cirrhotic liver with secondary signs of portal hypertension including splenomegaly and a few small varices. No focal hepatic mass. Cholelithiasis. OPTN / Li-RADS: OPTN 5 / Li-RADS 5: None a/p; Mr Haynes has alcohol related cirrhosis based on imaging from OSH No liver Bx Portal hypertension , banded E varices, last egd was Jun 2022 no banding done Ascites responding to diuretics Was presented twice to CD committee and deferred for complete exam due to lack of liver biopsy and was improving However no improvement since last seen in clinic. Cirrhosis seen an CT with portal hypertension Plan: Continue diuretics Discuss starting coreg, did not discuss with pcp, I will start low dose Twinrix completed Liver US every 6m and rtc with me in 6m CT shows cirrhosis and P HTN continue w plan for transplant Alcohol neuropathy, start neurontin Reggie Hart MD During this visit, I Spent 30 min reviewing labs, prior notes, imaging studies, and discussing diagnosis and differential diagnosis and plan of care . [facility] Note[facility] History of Present illness Narrative* Jazzmine Arango RN - 01/20/2023 1:00 PM EDT Radiology Service Progress Note DATE OF SERVICE: January 20, 2023 TIME: 1:33 PM PATIENT WEIGHT: 220 LBS PATIENT IDENTITY VERIFICATION COMPLETED USING TWO (2) STANDARD IDENTIFIERS: Name and Date of confirmed by patient verbally and Name and Date of confirmed by identification band. FALL SCREENING: Has the patient had 2 falls in the last year or 1 fall with injury or currently using an Ambulatory Assistive Device (Walker, Cane, Wheelchair, Crutches, etc.)? No PATIENT GENDER DATA: Male ALLERGIES: Reviewed and unchanged CONTRAST ALLERGY: No EXAM: CT -CONTRAST INDUCED NEPHROPATHY RISK FACTORS: History of Kidney surgery, Kidney neoplasm, Liver disease, and/or any recent Nephrotoxic Chemotherapy or other Nephrotoxic medications CREATININE: Creatinine Date Value Ref Range Status 11/20/2022 0.85 0.73 - 1.22 mg/dL Final 05/12/2022 0.81 0.73 - 1.22 mg/dL Final Estimated Glomerular Filtration Rate Date Value Ref Range Status 11/20/2022 112 >=60 mL/min/1.73m Final Comment: Estimated Glomerular Filtration Rate (eGFR) is calculated using the 2020 CKD-EPI creatinine equation. This equation utilizes serum creatinine, sex, and age as parameters. The creatinine assay has traceable calibration to isotope dilution- mass spectrometry. Refer to KDIGO guidelines for clinical interpretation. In patients with unstable renal function, e.g. those with acute kidney injury, the eGFRmay not accurately reflect actual GFR. P.O.C.T. RESULTS: N/A January 20, 2023 TREATMENT: No Hydration needed. IV SITE: Ambulatory: A peripheral IV was started in the Right antecubital site with a Angio cath: 20 gauge. and A Saline lock was inserted per protocol IV SITE APPEARANCE: Clean,Dry and Intact SIGNATURE: Jazzmine Arango RN PATIENT NAME: Kathy Haynes DATE: January 20, 2023 TIME: 1:33 PM * RT Daryl(R) - 01/20/2023 1:00 PM EDT Radiology Service Progress Note PATIENT NAME: Kathy Haynes DATE OF SERVICE: January 20, 2023 TIME: 1:54 PM PATIENT IDENTITY VERIFICATION COMPLETED USING TWO (2) IDENTIFIERS: Name and Date of confirmedby patient verbally and Name and Date of confirmed by identification band. FALL SCREENING: Has the patient had 2 falls in the last year or 1 fall with injury or currently using an Ambulatory Assistive Device (Walker, Cane, Wheelchair, Crutches, etc.)? No PATIENT GENDER DATA: Male PATIENT RELEVANT IMPLANT DATA REVIEWED: Yes RADIOLOGY DEPARTMENT: CT; Exam(s) Completed: Liver PERIPHERAL IV DATA: Site assessment: Clean,Dry and Intact, Site disposition Discontinued SIGNED BY: RT Daryl(R) January 20, 2023 1:54 PM documented in [facility] encounter[facility] Evaluation + Plan note Future Scheduled Tests Laboratory* Basic Metabolic Panel 12/15/22 * Ferritin 10/23/22 * Iron Level 10/23/22 * Vitamin B12 Level 10/23/22 * Vitamin B12 Level 11/27/[address] [facility] 04-20-2023 Miscellaneous Notes* Telephone Encounter - Hortensia Angeles RN - 12/11/2022 9:47 AM EDT I spoke with patient and informed him that we discussed his case at our Liver Committee meeting andhe has been deferred at this time- as his latest ultrasound showed no cirrhosis and his MELD score has improved. He needs a follow up catscan and then to see Dr Stephanie Wolff to determine if a liver biopsy is warranted- as he may cont to improve off alcohol and may not require a transplant. He verbalized understanding and appreciated the call. documented in this encounterDayton [facility]04-06-2023 NoteFire[facility]04-06-2023 Miscellaneous Notes* Telephone Encounter - Hortensia Angeles RN - 11/27/2022 3:31 PM EDT I spoke with patient today and informed him that he was discussed at our chemical dependency subcommittee yesterday and has been approved to go to full committee. Informed him that I will present himon 12/10/22. He still needs to get his dental clearance which he will set up JOSS. He understands that he should cont to f/u with his counselor locally. All questions answered. documented in this encounterDayton Osteopathic Hospital04-05-2023 NoteFirelands [facility]04-05-2023 History of Present illness Narrative* JULIETH Sen - 11/26/2022 1:28 PM EDT OLTx Update to Original Psychosocial Evaluation Name: Kathy Haynes Medical Record: [id number] Assessment Date: November 26, 2022 Met with: Patient and his significant other in-clinic. MELD-Na score: 20 at 11/20/2022 9:59 AM MELD score: 14 at 11/20/2022 9:59 AM Calculated from: Serum Creatinine: 0.85 mg/dL (Using min of 1 mg/dL) at 11/20/2022 9:59 AM Serum Sodium: 130 mmol/L at 11/20/2022 9:59 AM Total Bilirubin: 3.7 mg/dL at 11/20/2022 9:59 AM INR(ratio): 1.3 at 11/20/2022 9:59 AM Age: 42 years IMPRESSION: Patient has made suitable progress with substance use treatment and development of insight. Patienthas completed substance use treatment program through [facility] and meets [facility] guidelines. RECOMMENDATION: Recommend patient be approved for liver transplant pending completion of OLT evaluation, approval by Selection Committee, and confirmation of patient's suboxone prescription. CHEMICAL DEPENDENCY: Met with patient in clinic to discuss patient's progress in substance use treatment and developmentof insight. Patient states that he has completed his treatment program through [facility], and that he is set up to see a counselor every few weeks to address substance use history as well as other concerns such as anger. Patient states that he glad he went through the program, and feels it has been helpful. Although patient demonstrates improved insight, he does still somewhat minimize his past alcohol use prior to treatment. Patient denied ongoing use of kratom, and stated that his use of the substance only occurred one time. Discussed with patient that he is to abstain from kratom moving forward. Patient expressed his understanding and agreement. Patient presented his medical marijuana card, which he sent electronically. Patient's [place] [employer] ID# [id number] and expires 05/23/2023. Discussed with patient that his counselor from [facility] indicated that he tested positive for suboxone. Discussed with patient that this medication is not in his chart. Patient stated that he was prescribed suboxone by a provider near his home. Discussed with patient that he should notify transplant team of any outside medications, and that his suboxone prescription will need to be verified. Patient's last reported use of alcohol was sometime around the beginning of August 2022. Patient [facility] on 11/20. Patient meets Standard [facility] Chemical Dependency Guidelines with three months sobriety and three months concurrent treatment. SHEILA Sen LISW-S, November 26, 2022 1:28 PM documented in this encounterDayton Osteopathic Hospital02-27-2023 NoteFirelands [facility]02-27-2023 History of Present illness Narrative* JULIETH Sen - 10/20/2022 3:38 PM EST Spoke to patient's substance use treatment counselor Connie ([phone]), along with pt's RN Coordinator Lesley. Connie called to inquire about patient being prescribed suboxone, whichshe stated patient was positive for at last tox screen with [facility]. There is no record in pt's EMR and med list indicating an active prescription for suboxone. There is also no indication in Care Everywhere of patient having an active suboxone prescription. Connie stated that they plan to ask patient to provide a prescription for suboxone at his next meeting. Connie stated that patient also uses medical marijuana and a substance available over the counter called kratom. Patient will need to provide a valid medical marijuana card to his substance use treatment program as well as to [facility]. Connie stated she will provide updates on pt's status, and will send to [facility] pt's suboxone prescription and medical marijuana card if patient is able to provide them. Patient will be asked to complete a PEth test in the next several days to ensure compliance with alcohol abstinence. Will plan to follow-up with patient to assess progress in substance use treatment and towards meeting standard [facility] chemical dependency guidelines. SHEILA Sen, JULIETH-S, October 20, 2022 3:38 PM documented in this encounterDayton Osteopathic Hospital02-16-2023 Miscellaneous Notes* Addendum Note - Hortensia Angeles RN - 10/09/2022 11:26 AM ESTAddended by: HORTENSIA ANGELES on: 10/09/2022 11:26 AM Modules accepted: Orders documented in this encounterDayton Osteopathic Hospital02-16-2023 NoteFirelands [facility]02-16-2023 Miscellaneous Notes* Telephone Encounter - Hortensia Angeles RN - 10/09/2022 8:20 AM EST I called and spoke with patient that he was discussed at our Chemical Dependency Selection Committee meeting and he has been deferred for 4 weeks. He needs to cont with his CD rehab and I also told him we would be checking some labs on him soon. I asked him about missing his appt with his CD counselor (Amandeep) however patient stated that he didn't know he had an appt with her. He will contacther this week to straighten this out. All other questions answered. documented in this encounterDayton Osteopathic Hospital01-27-2023 Miscellaneous Notes* Telephone Encounter - Hortensia Angeles RN - 09/19/2022 1:50 PM EST I spoke with patient and read him Michelle note from yesterday. He stated he would reach out to Connie about starting the program next week. 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 Patient told me that he would let me know next week once he starts his rehab. documented in this encounterDayton Osteopathic Hospital01-26-2023 History of Present illness Narrative* JULIETH Sen - 09/18/2022 4:07 PM EST OLTx Update to Original Psychosocial Evaluation Received return phone call from pt's substance use treatment counselor Connie ([phone] ex [phone]) with [facility]. Connie indicated that she is currently seeing patient once every three weeks, and that they are considering bringing patient in to their [facility] program which is a twice weekly group substance use treatment program. Connie stated that it was her determination that patient's alcohol use was not severe enough as to warrantinclusion in their IOP program. Connie was aware of patient's relapse at the end of 05/2022, butboocarlos was not aware that patient had a high positive PEth test with a value of 126 on 07/31/2022. Connie offered to provide weekly progress reports regarding patient's program participation. Pratima additionally have random tox screens through this program. Discussed with Connie that patient's relapse and general resistance to treatment demonstrate concerning behavior. Connie stated her agreement, but stated her opinion that the [facility] program would likely be best for patient. Patient should proceed with this program, but should be closely followed to ensure appropriate program participation. Provided Connie with email address to provide weekly progress reports. Patient should have continued PEth testing and follow-up to ensure compliance in maintaining sobriety and working towards meeting standard [facility] chemical dependency guidelines. As patient was previously recommended to complete an IOP program, patient should be required [facility] if there are any subsequent relapses or concerns regarding compliance. Recommendation: Recommend patient be deferred four (4) weeks from liver transplant listing in orderto begin substance use treatment participation and work towards meeting standard [facility] chemical dependency guidelines. SHEILA Sen, JULIETH-S, September 18, 2022 4:07 PM documented in this encounterDayton Osteopathic Hospital01-26-2023 Miscellaneous Notes* Telephone Encounter - Hortensia Angeles RN - 09/18/2022 9:37 AM EST I left a message for patients counselor Connie at [facility] [phone]- patient claims that she has been trying to reach our high school social studies tutor Lobo. I asked that she call us back. I have also asked Lobo earlier in the week to reach out to her. Patient is interested in doing the [facility] as his rehab through [facility] and then they also have an aftercare program. documented in this encounterDayton Osteopathic Hospital01-18-2023 Miscellaneous Notes* Telephone Encounter - Hortensia Angeles RN - 09/10/2022 11:06 AM EST I called patient again last evening and he didn't answer and I couldn't leave a voicemail- so then I sent him a text message to call me. He never did call me so I reached out to his girlfriend Kaitlin. I spoke with Kaitlin. She informed me that patient has NOT started his IOP yet and that he is stilldrinking some- not much but some. He states that he still has cravings- she is doing everything she can to get him into the IOP program- I informed her that he was discussed back on 09/03/2022 and deferred for 4 weeks and that he also already had the strike 1 that was given to him back in July. She will make sure that he gets this information- she and his mother are doing everything they can to help him. * Telephone Encounter - Hortensia Angeles RN - 09/04/2022 12:45 PM EST Message left for patient to call me. He was discussed at our CD committee yesterday and deferred for another 4 weeks to work on his IOP program. Will await his return call. documented in this encounterDayton Osteopathic Hospital01-12-2023 History of Present illness Narrative* Hortensia Angeles RN - 09/04/2022 12:37 PM EST The patient was re-presented at the Liver Transplant Chemical Dependency Subcommittee Meeting on 09/03/2022 and was deferred for 4 weeks. Patient does not meet chemical dependency guidelines set forth by the [place] [employer] [facility]. Narrative with diagnosis: This is a 42 yr old gentleman with alcoholic liver disease. Symptoms of his liver disease include portal htn, EV, ascites, and jaundice. MELD-Na score: 19 at 05/12/2022 12:13 PM MELD score: 17 at 05/12/2022 12:13 PM Calculated from: Serum Creatinine: 0.81 mg/dL (Using min of 1 mg/dL) at 05/12/2022 12:13 PM Serum Sodium: 135 mmol/L at 05/12/2022 12:13 PM Total Bilirubin: 6.5 mg/dL at 05/12/2022 12:13 PM INR(ratio): 1.4 at 05/12/2022 12:13 PM Age: 42 years Attendees included: Yolis Mckeon MD Amanda Mey, BAO Muleln, BAO Lamar, BAO Springer, Wanda Bruce MD Courtney Hale, MD Lobo Fowler, JULIETH Velázquez, MD Cohen, Gloria Hayes, Geovanna Pritchett, JOSE Angeles, BAO English, MD Yudy Young, RD BAO Oneal MD Sulemon Chaudhry, MD Jean Morgano, BAO documented in this encounterDayton Osteopathic Hospital01-06-2023 Miscellaneous Notes* Telephone Encounter - Kina Corona - 08/29/2022 2:44 PM EST Called Kathy Haynes to remind them of an appointment with Dr. Wolff on 09/01/22. Phone number provided was incorrect. Phone number in chart is a disconnected number. Did sent MyChart reminder documented in this encounterDayton Osteopathic Hospital12-15-2022 Miscellaneous Notes* Telephone Encounter - Hortensia Angeles RN - 08/07/2022 1:11 PM EST I spoke with patient today and informed him that he was discussed with the chemical dependency subcommittee yesterday 08/06/2022 and he has been deferred for 4 weeks and that he needs to start an IOPprogram. I also informed him that this is strike 1 since he had a relapse in May. He informed me that he does have an appointment with his counselor 08/13/21 to get started with IOP. All questions answered. documented in this encounterDayton Osteopathic Hospital12-15-2022 History of Present illness Narrative* Hortensia Angeles RN - 08/07/2022 12:10 PM EST The patient was re-presented at the Liver Transplant Chemical Dependency Subcommittee Meeting on 08/06/2022 and was deferred for 4 weeks. He was also given strike 1 since he had a relapse of alcohol in May. Patient does not meet chemical dependency guidelines set forth by the [place] [employer] [facility] [employer]. Narrative with diagnosis: This is a 42 yr old gentleman with alcoholic liver disease. Complicationsof liver disease include ascites, CHEY, and jaundice. He has been deferred for 4 weeks, and needs tostart an IOP program MELD-Na score: 19 at 05/12/2022 12:13 PM MELD score: 17 at 05/12/2022 12:13 PM Calculated from: Serum Creatinine: 0.81 mg/dL (Using min of 1 mg/dL) at 05/12/2022 12:13 PM Serum Sodium: 135 mmol/L at 05/12/2022 12:13 PM Total Bilirubin: 6.5 mg/dL at 05/12/2022 12:13 PM INR(ratio): 1.4 at 05/12/2022 12:13 PM Age: 42 years Attendees included: Aminah Woods, Tonya Szymanski RN Williams, Brittney, APP Haider, Mahnur, MD Dominguez, Supriya Bruce, Fiona Lugo OLY Jasmin Hawkins, MD Servando Wynn, MD Roro Blank, Dorothy aMyorga MD Bijan Eghtesad, MD Roddy James, PharmD Claritza English, BAO Farfan, JULIETH Dumont, BAO Springer, JULIETH Bradford, Selma Martel, MD Gabriel Kelley, MD Melba Miguel, ELECTRICAL LOGGING OPERATOR Lee Joseph, MD Nirav Ríos, PA-C Aletha Geller, MD Connie Ruff, MD Supriya Rajput, PA-C Elizabeth Lamar, BAO Najera, BAO Espinosa, PA-C Melly Velázquez, MD Gonzalo Woods, Jasmin Hernandez, MD Jenny Martinez, BAO Cronin, JULIETH Alvarado, PA-C Lesley Angeles, Sandra Garcia, MD Amee Clobert, BAO Saucedo, ELECTRICAL LOGGING OPERATOR MD Svetlana Guillen, MD Jayson Esparza, MD Gee Herrmann MD [facility], Yudy GARCIA documented in this encounterDayton Osteopathic Hospital11-25-2022 Hospital Discharge instructions Patient Education 07/18/2022 10:29:03 Esophageal Varices Esophageal Varices Esophageal varices are enlarged veins in the part of the body that moves food from the mouth to thestomach (esophagus). They develop when extra blood is forced to flow through these veins because the blood's normal pathway is blocked. Without treatment, esophageal varices eventually break and bleed (hemorrhage), which can be life-threatening. What are the causes? This condition may be caused by: Scarring of the liver (cirrhosis) due to alcoholism. This is the most common cause. Long-term (chronic) liver disease. Severe heart failure. A blood clot in a vein that supplies the liver (portal vein). A disease that causes inflammation in the organs and other body areas (sarcoidosis). A parasitic infection that can cause liver damage (schistosomiasis). What are the signs or symptoms? Esophageal varices usually do not cause symptoms unless they start to bleed. Symptoms of bleeding esophageal varices include: Vomiting material that is bright red or that is black and looks like coffee grounds. Coughing up blood. Stools (feces) that look black and tarry. Dizziness or light-headedness. Low blood pressure. Loss of consciousness. How is this diagnosed? This condition is diagnosed with a procedure called endoscopy. During endoscopy, your health care provider uses a flexible tube with a small camera on the end of it (endoscope) to look down your throat and examine your esophagus. You may also have other tests, including: Imaging tests such as a CT scan or ultrasound. Blood tests. How is this treated? This condition may be treated with medicines or procedures that reduce pressure in the varices and reduce the risk of bleeding. Medicines are usually used for varices that are not bleeding. Procedures that may be done for bleeding varices include: Placing an elastic band around the varices to keep them from bleeding (variceal ligation). Replacing blood that you have lost due to bleeding. This may include getting a transfusion of bloodor parts of blood, such as platelets or clotting factors. You may be given antibiotic medicine to help prevent infection. Getting an injection that causes the varices to shrink and close (sclerotherapy). You may also be given medicines that tighten (constrict) blood vessels or change blood flow. Placing a tube into your esophagus and then passing a balloon through the tube and inflating the balloon (balloon tamponade). The balloon applies pressure to the bleeding veins to help stop the bleeding. Placing a small tube within the veins in the liver (transjugular intrahepatic portosystemic shunt, TIPS). This decreases blood flow and pressure in the esophageal varices. If other treatments do not work, you may need a liver transplant. Follow these instructions at home: Take [id number] and prescription medicines only as told by your health care provider. If you were prescribed an antibiotic medicine, take it as told by your health care provider. Do notstop taking the antibiotic even if you start to feel better. Do not take any NSAIDs (such as aspirin or ibuprofen) before first getting approval from your health care provider. Do not drink alcohol. Return to your normal activities as told by your health care provider. Ask your health care provider what activities are safe for you. Keep all follow-up visits as told by your health care provider. This is important. Contact a health care provider if: You have abdominal pain. You are unable to eat or drink. Get help right away if: You have blood in your stool or vomit. You have stools that look black or tarry. You have chest pain. You feel dizzy or have low blood pressure. You lose consciousness. These symptoms may represent a serious problem that is an emergency. Do not wait to see if the symptoms will go away. Get medical help right away. Call your local emergency services (911 in the [place] Do not drive yourself to the hospital. Summary Esophageal varices are enlarged veins in the esophagus, the part of your body that moves food from your mouth to your stomach. Without treatment, esophageal varices eventually break and bleed (hemorrhage), which can be life-threatening. Esophageal varices usually do not cause symptoms unless they start to bleed. Keep all follow-up visits as told by your health care provider. This is important. This information is not intended to replace advice given to you by your health care provider. Make sure you discuss any questions you have with your health care provider. Document Released: 10/30/2004 Document Revised: 07/23/2018 Document Reviewed: 05/12/2018 [employer] Patient Education 2020 [employer]. 07/18/2022 10:29:03 Endoscopy, Care After Procedure [facility] Endoscopy Care After Procedure Please read the instructions outlined below and refer to this sheet in the next few weeks. These discharge instructions provide you with general information on caring [facility] Your doctor may also give you specific instructions. While your treatment has been planned according to the most current medical practices available, unavoidable complications occasionally occur. If you have any problems or questions after discharge, please call your doctor. ACTIVITY You may resume your regular activity but move at a slower pace for the next 24 hours. Take frequent rest periods for the next 24 hours. Walking will help expel (get rid of) the air and reduce the bloated feeling in your abdomen. No driving for 24 hours (because of the anesthesia (medicine) used during the test). You may shower. Do not sign any important legal documents or operate any machinery for 24 hours (because of the anesthesia used during the test). NUTRITION Drink plenty of fluids. You may resume your normal diet. Begin with a light meal and progress to your normal diet. Avoid alcoholic beverages for 24 hours or as instructed by your caregiver. MEDICATIONS You may resume your normal medications unless your caregiver tells you otherwise. WHAT YOU CAN EXPECT TODAY You may experience abdominal discomfort such as a feeling of fullness or gas pains. FOLLOW-UP Your doctor will discuss the results of your test with you. SEEK IMMEDIATE MEDICAL ATTENTION IF ANY OF THE FOLLOWING OCCUR: Excessive nausea (feeling sick to your stomach) and/or vomiting. Severe abdominal pain and distention (swelling). Trouble swallowing. Temperature over 100 F (37.8 C). Rectal bleeding or vomiting of blood. Document Released: 03/24/2005 Document Re-Released: 02/01/2007 [facility] Patient Information [employer]. Follow Up Care 06/12/2022 14:54:10 With:Frances PEPE Address: [address] [place] [address]. [address] [place] [address] [facility] (1) When:1 to 2 weeks Comments:Call for any problems. [facility]11-09-2022 Miscellaneous Notes* Telephone Encounter - Hortensia Angeles RN - 07/02/2022 1:55 PM EST I spoke with patient last evening regarding positive peth test from 06/19/2022 of 104. When confronted about this he stated he may have had a drink at a [employer] that had something in it but he wasn't sure. He said he would make sure that this doesn't happen again. I told him that with his history he needs definitely needs to make every attempt to make sure this doesn't happen again. I advised him to call his SW Lobo and discuss this with him also. documented in this encounterDayton Osteopathic Hospital11-03-2022 Miscellaneous Notes* Telephone Encounter - Hortensia Angeles RN - 06/26/2022 9:38 AM EDT I spoke to patient's significant other- Rosa Nuñez and informed her that Jim was discussed at CD committee yesterday and deferred for 4 weeks. Informed her that he needs to cont doing his AA meetings and that he is also eligible for medically urgent exception if needed. She verbalized understanding and relay all of this information to Jim. I told her that I would schedule Jim to come back for f/u in a month before we present him next- she agreed with the plan. All questions answered. documented in this encounterDayton Osteopathic Hospital11-03-2022 History of Present illness Narrative* Hortensia Angeles RN - 06/26/2022 9:31 AM EDT The patient was presented at the Liver Transplant Chemical Dependency Subcommittee Meeting on 06/25/2022 and was deferred for 4 weeks. Patient does not meet chemical dependency guidelines set forth by the [place] [facility] [employer] [facility]. Narrative with diagnosis: THis is a 42 yr old male with alcoholic liver disease. His liver disease has been complicated by ascites, CHEY, and jaundice. He has been deferred for 4 weeks. He can be eligible for a medical urgent exception if needed. MELD-Na score: 19 at 05/12/2022 12:13 PM MELD score: 17 at 05/12/2022 12:13 PM Calculated from: Serum Creatinine: 0.81 mg/dL (Using min of 1 mg/dL) at 05/12/2022 12:13 PM Serum Sodium: 135 mmol/L at 05/12/2022 12:13 PM Total Bilirubin: 6.5 mg/dL at 05/12/2022 12:13 PM INR(ratio): 1.4 at 05/12/2022 12:13 PM Age: 42 years Attendees included: MD Roro Rodriguez MD Steve Firkins, MD Maura George, BAO Farfan, MD Shoshana Scott LISW D Antoni Klein, PA-C Omar Massoud, MD Barb Mastroianni, BAO Najera, RN CLARA Hatch MD Jean Morgano, BAO Robb, ALLEGRA Martinez, JULIETH Mina PA-C Lori Pulice, BAO Colbert, BAO Saucedo, ELECTRICAL LOGGING OPERATOR Gee Foss, MD Teresa Berrios, ELECTRICAL LOGGING OPERATOR Helena Jimenes [facility] Wanda Camarena documented in this encounterDayton Osteopathic Hospital10-25-2022 Evaluation + Plan note Future Scheduled Tests Laboratory* Basic Metabolic Panel 06/17/22 * CBC w/ Auto Diff 06/17/22 * PT 03/20/22 Radiology* XR Abdomen 1 View 03/20/22 * XR Spine Lumbosacral Minimum 4 Views 03/20/22 [facility]10-13-20[facility] History of Present illness Narrative* Hortensia Angeles RN - 06/05/2022 9:30 AM EDT The patient was presented at the Liver Transplant Chemical Dependency Subcommittee Meeting on 06/04/2022 and was deferred for 4 weeks. Patient does not meet chemical dependency guidelines set forth by the [place] [facility]. Narrative with diagnosis: THis is a 42 yr old male with alcoholic liver disease. His liver disease has been complicated by ascites, CHEY, and jaundice. He has been deferred for 4 weeks. He needs to continue his 2-3 AA meeting weekly or his individual counseling. MELD-Na score: 19 at 05/12/2022 12:13 PM MELD score: 17 at 05/12/2022 12:13 PM Calculated from: Serum Creatinine: 0.81 mg/dL (Using min of 1 mg/dL) at 05/12/2022 12:13 PM Serum Sodium: 135 mmol/L at 05/12/2022 12:13 PM Total Bilirubin: 6.5 mg/dL at 05/12/2022 12:13 PM INR(ratio): 1.4 at 05/12/2022 12:13 PM Age: 42 years Attendees included: MD Geovanna Jimenez MD Dian Jung Chiang, MD Carly Pool, BAO English, BAO Farfan, JULIETH Dumont, MD Supriya Jensen, JULIETH Lamar, BAO Najera, BAO Hutchinson, DEANNA Espinosa, PA-C Melly Velázquez, MD Gonzalo Woods, BAO Martinez, BAO Cronin, JULIETH Alvarado, PA-C Lesley Angeles, BAO Colbert, BAO Cohen, MD Svetlana Denis, BAO Duncan, PA-C MD Gee Maloney, MD Bella Case, DEANNA documented in this encounterDayton Osteopathic Hospital10-10-2022 History of Present illness Narrative* JULIETH Sen - 06/02/2022 1:00 PM EDT Orthotopic Liver Transplant (OLT) Psychosocial Evaluation Patient: Kathy Haynes Date Evaluated: June 02, 2022 Patient consents to participate in psychosocial evaluation for liver transplant: Yes Patient agrees to have the following present during evaluation: Pt's significant other Rosa Patient Location: Patient at home and seen by video visit. Identifying Information: Pt prefers to be called: Jim or Kathy Preferred pronoun: his Age: [age] year old Ethnicity: White - White// Heritage [place] Citizen: Yes Preferred Language: German Lives now: Kathy Haynes [phone] [place] [id number] Impressions: Social Support- Patient lives at home with his partner and his partner's two children in a two story house in [place], [place]. Patient's partner Rosa Chow will serve as the primary caregiver, while pt's stepdaughter Carlos Cummings will serve as the secondary caregiver. Patient has his mother or niece available asadditional caregiver support as needed. Patient will stay at home or secure local lodging in [place] for their post-transplant recovery and follow-up period. Insurance/Financial- Patient has adequate insurance coverage for transplant through their [place] plan. Pt's insurance isbought and paid for by pt's parents. Patient has household income through his employment and his partner's employment. Patient reports that their household income is adequate to cover living expensesand bills, and is adequate to cover transplant related expenses including lodging if needed. Chemical Dependency- Patient has a substance use history that includes use of cigarettes, alcohol, and medicinal cannabis. Patient currently smokes, and reports smoking approximately 1 pack of cigarettes daily. Patient first started using alcohol around Age 19, and continued daily use for much of his adult life. Patient was drinking approximately 3-4 beers and 1-2 shots of liquor daily prior to cessation on 04/09/2022. Patient states that his cessation of alcohol occurred shortly after learning of his liver disease for the first time in February 2022. Patient's use has been somewhat problematic in that it involved cravings, driving while intoxicated to include a DUI arrest at Age 22, and withdrawal following cessation. Pt states that his partner and mother do not drink and are able to serve as sober supports for him. Patient meets DSM-5 criteria for diagnosis with a mild alcohol use disorder, in early remission.Discussed with patient that he should pursue some level of alcohol treatment to include individual counseling and/or regular participation in AA sessions. Patient expressed his understanding and agreement to pursue these treatment options. Patient does not meet standard OSOTC guidelines for chemical dependency at this time. Patient is not yet suitable for a medically urgent exception based on his need to participate in substance use treatment programming. Mental Health/Coping- Patient reports a mental health history that includes no past psychiatric diagnoses or concerns. Patient is future-oriented, and denies any history of SI/HI. Patient has minimal coping skills, and states that his main coping skill used to be drinking. Patient enjoys spending outside, but was not able to articulate any other coping skills. Discussed with patient that he should develop additional coping skills in moving forward with transplant evaluation and substance use treatment programming. There are no mental health concerns for this patient in proceeding with transplant evaluation and listing. Compliance- There are no compliance concerns for this patient at this time. Comprehension of Medical Issues and Transplant- Patient has fair understanding of their condition and associated treatment. Patient has fair understanding of the transplant process and post-transplant patient expectations. Patient is a reliable historian and generally accurate with providing information to the medical team. SIPAT Total Score: SIPAT Total Score: 21 SIPAT Score Interpretation 0 - 6 Excellent candidate Recommend to list for transplantation without reservations. 7 - 20 Good candidate Recommend to list for transplantation - although monitoring of identified risk factors may be required. 21 - 39 Minimally Acceptable Candidate Consider Listing. Identified risk factors must be satisfactorily addressed before representing for consideration. 40 - 69 Poor Candidate Recommend deferral while identified risks are satisfactorily addressed. > 70 High Risk candidate, significant risks identified Surgery is not recommended while identified risk factors continue to be present. Recommendations: Recommend patient be deferred four (4) weeks from liver transplant listing in order to begin participation in substance use treatment. Patient is a medium psychosocial risk for liver transplant from a social work perspective, and is unsuitable for listing at this time due to his need to participate in substance use treatment. Plan: Will plan for follow-up with patient to assess participation in substance use treatment programming. Medical History: Diagnosis/Reason for referral: It is inflammation of my liver that alcohol caused and put scar tissue on my liver. Date first told of liver disease: End February 2022 Symptoms: fluid in abdomen (ascites), fatigue, and cirrhosis Previously evaluated for OLT: NO MELD-Na score: 19 at 05/12/2022 12:13 PM MELD score: 17 at 05/12/2022 12:13 PM Calculated from: Serum Creatinine: 0.81 mg/dL (Using min of 1 mg/dL) at 05/12/2022 12:13 PM Serum Sodium: 135 mmol/L at 05/12/2022 12:13 PM Total Bilirubin: 6.5 mg/dL at 05/12/2022 12:13 PM INR(ratio): 1.4 at 05/12/2022 12:13 PM Age: 42 years Other medical concerns: None Previous surgeries: Stomach surgery as a small child PCP: Dr. Frances Pepe Date of last physical: One week ago Other providers/specialists: None Personal History: Born: [place] G[place] up where: [place] Parents: Pt was raised by: Mother and father Siblings: Two brothers Pt is the: Oldest Describes upbringing as: It was alright Life changing events: Parents divorce when patient was a teenager. 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 How many? 2 Names and Ages: Nikki 19, Janee-14, Partners two children are 18 and 15 and live with pt. Location: With patient. Health issues: None Quality of relationships:Good Currently Resides with: Partner and partner's two children Own/Rent: Owned by patient and partner Length of time at current residence:Five years Set up of home: [employer] Working Utilities: Yes Pets: Two dogs and three cats-Pt's mother or children can help care for pets as needed. Hobbies/Interests: Watching racing, watching football, spending time with children Community Supports: Restorationism: No Other supports: spouse/partner, adult children, parent(s), and friends Functioning Abilities: ADL's: is independent with all ADL's. Ambulation: No current problems noted Community Services/Agencies: None Driving: Yes Valid See [place]'s License: Yes Access to Transporation: Yes Caregiving for others: Minor children Medications/medical appointments: Uses MyChart: Yes How do you track appointments: Kept in partner's phone calendar. Does anyone attend appointments with you: Pt's partner Knows names of medications: Patient knows the names and purposes of all prescribed medications. How are medications stored/organized: Kept in weekly pillbox Medication compliance: Fair, missing only 1-2 doses per week Who else knows medications and where they are located: Pt's partner Rosa. Comprehension of Medical Situation: Level of understanding re: diagnosis, disease, condition: Patient has fair understanding of their condition and associated treatment. Knowledge of transplant: Patient has fair understanding of the transplant process and post-transplant patient expectations. Know a txp patient: No Volunteer to contact: Not at this time. History of working with medical records specialist: Patient works well with healthcare providers. Compliant: Good with consistent follow through Motivation for a transplant: I want to feel better and be able to see my girls graduate. Living Donor: Pt's partner, mother, and brother. Discussed MELD score, evaluation process, selection committee, listing, waiting, the call, surgery,hospital recovery time, hospital stay, discharge, usp recovery Financial: Insurance: [employer] [place]-Through pt's parents. Prescription Coverage : Yes Which pharmacy do you use: [facility] in [place], [place] Coverage for anti-rejection medications: Yes Travel/Lodging Benefits: Unknown Sources of Household income: Patient has household income through pt's employment and partner's employment. Disability (Y/N): No, but may apply for SSDI moving forward. Current Financial Concerns: None Plan for time away from work: Patient may apply for SSDI. Plan for lodging arrangements if needed: Patient will stay at or home or locally in [place] for post-transplant lodging during their follow-up period. Fundraising discussed/encouraged: Discussed with patient and provided fundraising information. Potential financial barriers to transplant: None Social Support: Where will you stay for your initial recovery?: Patient will stay at home or secure local lodging for post-transplant lodging during their follow-up period. Primary support person: Rosa Chanalicia-Partner Availability 16/03 Driving: Yes Medical/Health Concerns: History of Hepatitis C Secondary support people: Carlos Orozcoley-Pt's stepdaughter Contact #: [phone] Availability 16/03 Driving: Yes Medical/Health Concerns: None Who can drive you, be off work, learn your medications, etc.: Pt's partner, stepdaughter, or mother. Plan for children or pets: Family can help for children as needed. Other people available: Pt's mother or niece. Family stressors/disagreements: None If multiple caregivers are identified are they able to work together?: Yes Patient and Care -Partner(s) read and signed- Patient and Powder Mixer Commitment: Discussed verbally with patient and caregivers. Mental Health History/Coping: Current Mental Status: Patient is fully alert and oriented. Appearance: Patient appears stated age, is well dressed, and well groomed. Thought Content: Patient displays organized thought content, with appropriate mood and affect. MH History: None Suicidal Ideation/Attempts: None Psychiatric Hospitalizations: None Medications, Counseling, or professional help: None Coping Skills: Spend time outside, used to be drinking. Potential barriers to transplant: Needs to develop additional coping skills. Is a referral to Transplant Psychiatry needed?: Not at this time. Tobacco, Drugs, Alcohol Use: Tobacco: Yes First Use: Age 18 Last Use: Current Frequency: Daily Amount: 1ppd Method: Smoking Alcohol: Yes First Use: Age 19 Last Use: 04/09/2022 Frequency: 3-4 beers and 1-2 shots of fireball Amount: Daily Marijuana: Yes First Use: Age 16 Last Use: Current, medical. Discussed no longer smoking, but only using edibles moving forward. Cocaine: None Heroin: None LSD: None Uppers/Downers: None Prescription Drugs: Tried percocet as a teenager. Non Prescription Drugs (OTC): None Did anyone (medical doctors) tell you you should stop drinking and if so, who? Yes Problems associated with substance use? Work/School: No Family: No Social/Lost Relationships: No Debt: No Psychological/psychiatric problem: Yes Health/physical problem: Yes Violence: No Legal: Yes Preoccupation: Yes DSM 5 Substance Use Disorder Criteria: The substance is often taken in larger amounts or over a longer period than was intended. No 2. There is a persistent desire or unsuccessful effort to cut down or control use of the substance.No 3. A great deal of time is spent in activities necessary to obtain the substance, use the substance, or recover from its effects. No 4. Craving, or a strong desire or urge to use the substance. Yes 5. Recurrent use of the substance resulting in a failure to fulfill major role obligations at work,school, or home. No 6. Continued use of the substance despite having persistent or recurrent social or interpersonal problems caused or exacerbated by the effects of its use. No 7. Important social, occupational, or recreational activities are given up or reduced because of use of the substance. No 8. Recurrent use of the substance in situations in which it is physically hazardous. Yes 9. Use of the substance is continued despite knowledge of having a persistent or recurrent physicalor psychological problem that is likely to have been caused or exacerbated by the substance. No 10. Tolerance, as defined by either of the following: No a. A need for markedly increased amounts of the substance to achieve intoxication or desired effect. b. A markedly diminished effect with continued use of the same amount of the substance. 11. Withdrawal, as manifested by either of the following: Yes a. The characteristic withdrawal syndrome for that substance (as specified in the DSM- V for each substance). b. The substance (or a closely related substance) is taken to relieve or avoid withdrawal symptoms. Level of Severity: Mild (2-3) Moderate (4-5) Severe (6+) Insight: Aware of problem, Admits to problem, Realizes severity of problem, and Demonstrates fair insight Does the patient acknowledge dependence (Y/N)? Yes History of AoD treatment: None, but Feelings about lifelong sobriety: Patient is agreeable to treatment and lifelong sobriety. Substance present in the home: None Sober supports: Pt's partner and mother. Any interventions needed at this time: Yes, patient needs to participate in AA or individual counseling. Patient agreeable to treatment if recommended? Yes Does the patient meet standard OSOTC guidelines for chemical Dependency? Patient does not meet standard OSOTC guidelines for chemical dependency at this time. Medically Urgent Recidivism Risk Factors: Has not been abstinent for more than 3 months (outside a controlled environment): Yes 2. Has not participated in at least 1 month (3 meetings a week for 4 weeks=12) of an active recovery program (structured treatment program and/or documented 12 step meeting attendance with sponsor selection contact): Yes 3. Has not participated in at least 3 months (3 meetings a week for 12 weeks=36) of an active recovery program (structured treatment program and/or documented 12 step meeting attendance with sponsor selection contact): Yes 4. Does not have an adequate sober, stable social network to support the patient s commitment to abstinence both pre and post- transplant: No 5. Does not have insight into his/her past misuse/abuse: No 6. Persistent desire or unsuccessful efforts to cut down or control use: No 7. Continued to use substance despite being told the use is affecting his/her health: No 8. Has a psychiatric disorder and does not have adequate coping skills for dealing with stressors: Yes 9. History of problems at work, school or home due to substance use: No 10. Has had two or more failures with a structured rehabilitation program: No 11. Has failed random toxicology screens during medical evaluation for transplant: No 12. Meets criteria for multiple substance use disorders: Yes 13. History of driving under the influence or other legal consequences of substance use: Yes Appropriate for a Medically Urgency Exception Request: Patient is not suitable for a medically urgent exception at this time based on his need to participate in treatment. Patient is positive for / relapse risk factors. Advance Directives: Living Will: None Durable Power of Community Service Organization Director: None Information given: Discussed with patient and provided instructions on how to complete advanced directives. SHEILA Sen LISW-S June 02, 2022 12:56 PM documented in this encounterDayton Osteopathic Hospital09-30-2022 Hospital Discharge instructions Patient Education 05/23/2022 13:15:54 Endoscopy, Care After Procedure [facility] Endoscopy Care After Procedure Please read the instructions outlined below and refer to this sheet in the next few weeks. These discharge instructions provide you with general information on caring for [facility] Your doctor may also give you specific instructions. While your treatment has been planned according to the most current medical practices available, unavoidable complications occasionally occur. If you have any problems or questions after discharge, please call your doctor. ACTIVITY You may resume your regular activity but move at a slower pace for the next 24 hours. Take frequent rest periods for the next 24 hours. Walking will help expel (get rid of) the air and reduce the bloated feeling in your abdomen. No driving for 24 hours (because of the anesthesia (medicine) used during the test). You may shower. Do not sign any important legal documents or operate any machinery for 24 hours (because of the anesthesia used during the test). NUTRITION Drink plenty of fluids. You may resume your normal diet. Begin with a light meal and progress to your normal diet. Avoid alcoholic beverages for 24 hours or as instructed by your caregiver. MEDICATIONS You may resume your normal medications unless your caregiver tells you otherwise. WHAT YOU CAN EXPECT TODAY You may experience abdominal discomfort such as a feeling of fullness or gas pains. FOLLOW-UP Your doctor will discuss the results of your test with you. SEEK IMMEDIATE MEDICAL ATTENTION IF ANY OF THE FOLLOWING OCCUR: Excessive nausea (feeling sick to your stomach) and/or vomiting. Severe abdominal pain and distention (swelling). Trouble swallowing. Temperature over 100 F (37.8 C). Rectal bleeding or vomiting of blood. Document Released: 03/24/2005 Document Re-Released: 02/01/2007 ExitCare Patient Information 2010 [employer]. Follow Up Care 05/08/2022 12:26:51 With:Frances PEPE Address: [address] [place] [address]. [address] [place] [address] Business ([employer] When:1 to 2 weeks Comments:Call for any problems. [facility]09-30-2022 Evaluation + Plan noteExtracted from: Title:Anesthesia Pre-Op endo Author:Nirav Steve MD Date:05/23/22 Plan [place] Society of Anesthesiologists (ASA) physical status classification: Class II. Anesthetic Preoperative Plan Anesthesia: General. . Anesthetic plan, risks, benefits, and alternatives discussed with the patient and/or family. Patient verbalized understanding. Pt agrees with anesthetic plan and accepts all risks including but not limited to; Bleeding, infection(including covid-19), nerve injury, dental injury, eye injury, headache, low blood pressure, serious problems with the heart and lungs, allergic reactions, and .. Future Appointments Appointment Date:06/12/2022 02:00:00 PM Scheduled Provider:Frances PEPE MD Location:[facility]ment Type:[facility] Follow Up Future Scheduled Tests Laboratory* PT & PTT 05/15/22 * PT & PTT 05/29/22 * PT & PTT 06/05/22 * Urinalysis 03/20/22 * CBC w/ Auto Diff 03/20/22 * Comprehensive Metabolic Panel 03/20/22 * C-Reactive Protein 03/20/22 * Hepatic Function Panel 05/15/22 * Hepatic Function Panel 05/29/22 * Hepatic Function Panel 06/05/22 * PT 03/20/22 Radiology* XR Abdomen 1 View 03/20/22 * XR Spine Lumbosacral Minimum 4 Views 03/20/22 [facility]09-22-2022 History of Present illness Narrative* Forest Koenig - 05/15/2022 10:43 AM EDT Encounter closed per email 05/15/22 documented in this encounterDayton Osteopathic Hospital09-21-2022 Instructions* Patient Instructions* Yudy Parisi RD - 05/14/2022 4:41 PM EDT Plate method for Lunch/Dinner 1/2 plate vegetables, 1/4 plate starch or whole grains, 1/4 plate lean sources of protein Following a High protein diet & Low Fat Diet PRIORITIZE a good protein source at all meals and snacks -red meat 1x per week or use LEAN ground sirloin -lean cuts of chicken (no skin, fat trimmed) and turkey -Fish 2x per week -choose low-fat or non-fat dairy options (cheese, yogurt, cottage cheese, etc.) -AVOID fried foods Low-Sodium Diet *2000mg or less sodium/day *do not add any additional salt to food *use sodium-free seasonings like herbs and spices *avoid canned foods *avoid processed foods Personal: Home-made breakfast sandwich with egg, surinamese muffin, cheese OR cereal with milk 1% chocolate milk Zone [facility] Protein Bar KIND Breakfast protein bar Restaurant/fast food 1x per week Reduced Sodium Lunchmeat - [place] or ham or PB&J Premier Protein - Chocolate Shake or Muscle Milk No salt added cans or reduced sodium cans and rinse them and drain them documented in this encounterDayton Osteopathic Hospital09-21-2022 History of Present illness Narrative* Yudy Parisi RD - 05/14/2022 3:33 PM EDT This visit was performed via telephone interview due to the COVID-19 epidemic as an effort to protect patients and minimize exposure. This Team Access Model visit is a telephone encounter. It required patient-provider interaction for the medical decision making as documented below. Nutrition Therapy Initial Assessment Nutrition Diagnosis: Behavioral-Environmental: Food and nutrition related knowledge deficit, related to, lack of prior exposure to information , as evidenced by client has no prior knowledge of need for food and nutrition - related information. RECOMMENDED MALNUTRITION DIAGNOSIS: NO MALNUTRITION IDENTIFIED NUTRITION CARE PLAN Nutrition Intervention 05/14/2022: Plate method for Lunch/Dinner 1/2 plate vegetables, 1/4 plate starch or whole grains, 1/4 plate lean sources of protein Following a High protein diet & Low Fat Diet PRIORITIZE a good protein source at all meals and snacks -red meat 1x per week or use LEAN ground sirloin -lean cuts of chicken (no skin, fat trimmed) and turkey -Fish 2x per week -choose low-fat or non-fat dairy options (cheese, yogurt, cottage cheese, etc.) -AVOID fried foods Low-Sodium Diet *2000mg or less sodium/day *do not add any additional salt to food *use sodium-free seasonings like herbs and spices *avoid canned foods *avoid processed foods Personal: Home-made breakfast sandwich with egg, surinamese muffin, cheese OR cereal with milk 1% chocolate milk Zone Perfect Madhu's Bar [facility] Protein Bar KIND Breakfast protein bar Restaurant/fast food 1x per week Reduced Sodium Lunchmeat - [place]ira or ham or PB&J Premier Protein - Chocolate Shake or Muscle Milk No salt added cans or reduced sodium cans and rinse them and drain them Nutrition Pre-Transplant Assessment No contraindications Nutrition Monitoring & Evaluation: Monitor weight status and labs as available. Monitor diet recall for adherence to recommendations. Need for Follow up: PRN Patient presents for evaluation prior to consideration for liver transplant. Patient is on diuretics, weight has shifted related to fluid shifts. Patient's symptoms are: None Diet History: Breakfast - 2 blueberry (donuts hostes) and milk Snack - candy Lunch - sandwich or leftovers from home Or restaurant 3/3 Resturants 5-guys, long jerrica kojo, applebees Dinner - hamburger helper or chicken and spaghetti or lasagna with corn potatoes or peas Beverages - water, tea, gatorade Alcohol- none Vitamins/Supplements - B12 Activity: Activities of Daily Living: Active 75% of the day. 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 Resting Metabolic Rate: 1954 Malnutrition Screening Significant unintentional weight loss? No Eating less than 75% of usual intake for more than 2 weeks? No Potential Signs of Inflammation: unable to determine at this time Education Materials Provided: Healthy Lunch/Dinner Plate and Your Sodium- Controlled Diet READINESS TO LEARN Cognitive ability: Alert and oriented Motivation to learn: Interested Family support: Unable to assess - Family not present Instruction provided to: Patient Patient learns best by: Unable to Assess Factors affecting learning: Unable to assess Physical limitations affecting learning: None Referred/Supervised by: Abimael/Andre BHARDWAJ Billing Type: Initial Assess/15 min 3 units SIGNATURE: Yudy Parisi RD PATIENT NAME: Kathy Haynes DATE: May 14, 2022 TIME: 3:34 PM PAGER: N/A [facility] History of Present illness Narrative* Hortensia Angeles RN - 05/14/2022 12:48 PM EDT AMBULATORY PATIENT EDUCATION NOTE Met with patient/family to discuss the following information: [x] SRTR information provided and questions answered. Informed patient to call practice coordinator with any questions [x] Patient was provided the [facility]OS brochure on multiple listing and waiting time transfer [x]Evaluation process including presentation to selection committee, OSOTC approval and listing criteria reviewed [x]Surgical procedure, including post-operative management, hospitalization, lifelong immunosuppressive medications and their side effects (including the risk for hypertension, diabetes, kidney problems and cancers) and director long term care follow up after transplant. Possibility of recurrent disease discussed with patient. [x]Patient is aware of the potential medical, surgical or psychosocial risks [x] Patient is aware that they will need a care management associate to be available for the first 8-12 weeks after discharge from the hospital. [x] Patient informed that in order to maintain their UNOS listing status periodic test will be required. If they fail to keep appointments or to undergo required lab testing, listing status may be affected. [x]Discussed organ donor risk factors, including potential risk of developing transmissible diseaseincluding but not limited to HIV, hepatitis B and C, malaria, and malignancy during liver transplant. [x]Patient advised that they may be asked to consider donors with positive lab results such as Hepatitis B or Hepatitis C, depending on their circumstances [x]Patient was advised of his/her right to decline offers for transplant without any penalty [x]Patient was advised that he/she can refuse transplantation at any time prior to transplant without any penalty. [x]Patient was advised that if they choose not to proceed with transplant, alternative treatment will be provided. Alternative treatment may include medications to control fluid buildup or medications to prevent confusion. [x] Patient told their protected health information would be released to OSOT and OS in order linda placed on the UNOS waiting list for a donor organ. [x] Patient told that my medical information and procedures, without revealing my identity may be used for teaching and research activities. [x] Patient told they are responsible for arranging for payment for costs that are not covered by insurance. Patient advised that insurance approval is needed prior to listing. [x] Patient told that the [facility] is a teaching facility and part of care, under the guidance of my physicians, may be conducted by Residents, [place] and students. [x]Patient advised that transplants not performed in a medicare-approved hospital may negatively affect payment for medication coverage by Medicare Part B. [x]We make every attempt to provide transplant services 24 hours per day. We would notify you of any closure and assist in making alternative transplant arrangements. READINESS TO LEARN COGNITIVE ABILITY: Alert and oriented MOTIVATION TO LEARN: Eager FAMILY SUPPORT: High - Very involved in pt care INSTRUCTION PROVIDED TO: Patient and friend/other PATIENT LEARNS BEST BY: Multiple Methods FACTORS AFFECTING LEARNING: None PHYSICAL LIMITATIONS AFFECTING LEARNING: None LEARNING RESPONSE DIAGNOSIS: ALCOHOL METHOD OF INSTRUCTION: Group class instruction PATIENT / FAMILY RESPONSE: Verbalizes understanding of: OLT EVALUATION and SELECTION PROCESS FOLLOW-UP PLAN: Patient instructed to call with any further issues SUPPLEMENTAL MATERIAL: None REFERRAL (RECOMMENDATION): None Electronically Signed By: Hortensia Angeles RN In Department: TRANSPLANT CENTER documented in [facility]Day[facility] History of Present illness Narrative* Stan Phan MD - 05/14/2022 9:00 AM EDT INITIAL CONSULT ANESTHESIA LIVER TRANSPLANT SERVICE DATE: 05/14/2022 SERVICE TIME: 844 Consulting Service: Transplant Surgery (Dr. Gomez) Opinion/Advice Regarding: Anesthetic evaluation and preparation prior to possible transplantation. My findings and recommendations will be communicated through the shared medical records. ASSESSMENT AND PLAN: Kathy Haynes is a 42 year old male with end stage liver disease as described in the HPI below. According to my assessment, Mr. Kathy Haynes is an acceptable candidate for orthotopic liver transplant from an anesthetic point of view and requires no further workup at this time. Anesthesia for transplantation with risks, benefits, and alternatives was discussed with patient including the participation of anesthesiology residents, invasive monitoring, massive blood transfusion, and possibility of prolonged intubation. The patient and/or family appears to understand and wishes to proceed. SUBJECTIVE: CHIEF COMPLAINT: Consultation for liver transplant evaluation. HPI: This is a 42 year old male who presents with end-stage liver disease from ETOH complicated by the following:Ascites and Electrolyte Imbalance. Patient has had cirrhosis for 1 year. The patient also has the following active medical conditions to be considered in their evaluation: EtOH cirrhosis, smoker (tobacco and marijuana), Esophageal varices (S/P banding 05/01). Patient Currently has the Following Access: None There is no problem list on file for this patient. PAST MEDICAL HISTORY Diagnosis Date Alcoholic cirrhosis (HCC) Ascites Bilateral leg edema COVID-19 virus infection 02/2022 positive home test, mild symptoms Current smoker 04/29/2022 3/4 PPD Hypertension Jaundice Low back pain PAST SURGICAL HISTORY Procedure Laterality Date UNLISTED STOMACH SURGERY stomach surgery as an infant (3 weeks old) FAMILY HISTORY Problem Relation Age of Onset Diabetes Mother other (liver cirrhosis) Paternal Grandmother SOCIAL HISTORY: Social History Tobacco Use Smoking status: Every Day Packs/day: 1.00 Years: 12.00 Pack years: 12.00 Types: Cigarettes Smokeless tobacco: Never Substance Use Topics Alcohol use: Not Currently Drug use: Yes Types: Marijuana MEDICATIONS: Current Facility-Administered Medications Medication Dose Route Frequency perflutren lipid microspheres 1.3 mL in NaCl (PF) 0.9% 10 mL injection (DEFINITY) INTRAVENOUS DIRECTED PRN sodium chloride 0.9 % (flush) 10 mL (BD POSIFLUSH) 10 mL INTRAVENOUS DIRECTED PRN ALLERGIES: ALLERGIES Allergen Reactions Penicillins Unknown OBJECTIVE REVIEW OF SYSTEMS: PAIN ASSESSMENT: Negative for pain, history of chronic pain, or current treatment for a chronic pain condition. GENERAL: No weight loss, malaise or fevers. HEENT: No TMJ, dentition or trach. NECK: Negative for lumps, goiter, pain and significant neck swelling. RESPIRATORY: Cough dry. Wheezing. CARDIOVASCULAR: Negative for chest pain, leg swelling or palpitations. GI: Esophageal varices : No history of dysuria, frequency or incontinence. No difficulty urinating, nocturia > 1 timeper night or hematuria. MUSCULOSKELETAL: Negative for joint pain or swelling, back pain or muscle pain. SKIN: Jaundice. PSYCH: Negative for sleep disturbance, mood disorder and recent psychosocial stressors. HEMATOLOGY/LYMPHOLOGY: Negative for prolonged bleeding, bruising easily or swollen nodes. ENDOCRINE: Negative for cold or heat intolerance, polyuria, polydipsia and goiter. NEURO: No history of headaches, syncope, paralysis, seizures or tremors. PHYSICAL EXAM: VITAL SIGNS: There were no vitals taken for this visit. GENERAL: No distress. Cooperative. HEENT: PATIENT INTUBATED AND/OR HAS TRACHEOSTOMY: No MOUTH OPENING/TMJ: Full jaw ROM MICROGNATHIA/OVERBITE: No MALLAMPATI SCORE: MP 1 DENTITION: Upper dentures. Lower - few missing THYROMENTAL DIST: WNL SHORT NECK: No NECK FLEX: Full ROM. NECK EXTENSION: Full ROM. NECK: No carotid bruits, no neck mass or tracheal deviation. SKIN: Jaundice. CARDIAC: Regular rate and rhythm. LUNGS: Wheezing B/L lower lobes. NEURO: Grossly normal, no focal deficits. ABDOMEN: Abdomen soft, non-tender. Bowel sounds normal. No masses or organomegaly. MUSCULOSKELETAL: Negative ADVERSE ANESTHESIA EVENT: No history of adverse event. INTUBATION HISTORY: History of general anesthesia without difficulty. Patient WILL accept blood products while under anesthesia during surgery. PLANNED ANESTHETIC: General SPECIAL ANESTHESIA CONSIDERATIONS: Potential for multiple transfusions POST-OP PAIN MANAGEMENT PLAN: PRN and/or IV narcotics per PCP. DATA: Diagnostic tests reviewed for today's visit: EKG Reading: NSR Stress Test: Not done. Echocardiogram: 05/13/2022 CONCLUSIONS: - Exam indication: Pre-op evaluation for liver transplant - The left ventricle is mildly dilated. Left ventricular systolic function is normal. EF = 67 5% (2D biplane) Normal left ventricular diastolic function. - The right ventricle is normal in size. Right ventricular systolic function is normal. - The left atrial cavity is moderately dilated. - Estimated right ventricular systolic pressure is 39 mmHg consistent with mild pulmonary hypertension. Estimated right atrial pressure is 8 mmHg based on IVC assessment. - The patient has not had a prior CC echocardiographic exam for comparison. Cardiac Cath: Not done. PFT Test: PRE-BRONCH POST-BRONCH Pred LLN ULN Actual %Pred Actual %Chng SPIROMETRY FVC (L) 6.70 5.32 8.09 6.40 95 FEV1 (L) 5.27 4.17 6.32 4.82 91 FEV1/FVC 0.79 0.69 0.88 0.75 95 FEF25 (L/sec) 9.29 FEF50 (L/sec) 6.43 4.31 8.56 5.24 81 FEF75 (L/sec) 1.90 0.92 3.69 1.30 68 EIC94-92 (L/sec) 4.83 2.80 7.40 3.85 79 PEF L/s (L/sec) 11.94 9.10 14.79 11.47 96 FIVC (L) 6.44 FIF50 (L/sec) 6.91 PIF (L/sec) 6.99 Time (sec) 12.60 NEEMA (L) 0.12 FET PEF (sec) 0.07 Outside Hospital Records: To be scanned into [facility] Laboratory and Testing: Lab Value Units Date High Low HB 12.5 g/dL 05/12/2022 17.0 13.0 HCT 36.6 % 05/12/2022 51.0 39.0 WBC 4.62 k/uL 05/12/2022 11.00 3.70 PLT 123 k/uL 05/12/2022 400 150 NA 135 mmol/L 05/12/2022 144 136 K 4.2 mmol/L 05/12/2022 5.1 3.7 GLUC 149 mg/dL 05/12/2022 99 74 BUN 6 mg/dL 05/12/2022 24 9 CREAT 0.81 mg/dL 05/12/2022 1.22 0.73 PTSEC 14.9 sec 05/12/2022 13.0 9.7 INR 1.4 no uni* 05/12/2022 1.3 0.9 APTT 30.9 sec 05/12/2022 32.4 23.0 ALT 21 U/L 05/12/2022 54 10 AST 58 U/L 05/12/2022 40 14 TBILI 6.5 mg/dL 05/12/2022 1.3 0.2 TSH 1.580 mIU/L 05/12/2022 4.200 0.270 GFR No results within date range. FIBRAG No results within date range. No results found for: ANTINT SIGNATURE: Stan Phan MD PATIENT NAME: Kathy Haynes DATE: May 14, 2022 TIME: 7:09 AM PAGER/CONTACT #: [phone] documented in this [facility]Day[facility] History of Present illness Narrative* Javi Nguyễn MD - 05/14/2022 8:53 AM EDT Images from the original note were not included. LIVER TRANSPLANT EVALUATION Patient Name: Kathy Haynes Date of Service: May 14, 2022 Liver disease secondary to: Laennec's cirrhosis Liver disease diagnosed in: October 2021 Number of hospital admissions with liver disease: 1 HPI: Kathy Haynes is a 42 yo male current smoker with PMH significant for HTN, and alcohol cirrhosisc/b portal HTN, splenomegaly, thrombocytopenia, ascites, edema, EV. No GIB, no HE. EV with banding done 2 weeks ago. Patient had left arm injury from work in October 2021 where ED staff noted jaundice.Patient states he developed ascites and LE edema after having covid in January. Controlled with diuretics, has not required paracentesis. Reports alcohol use since his 20s, which increased to daily use for the last 5 years (3-4 beers daily, +/- liquor). He quit 04/09/22. Continues to smoke cigarettes. Also reports marijuana use (up to twice/day) for appetite stimulation. MELD-Na score: 19 at 05/12/2022 12:13 PM MELD score: 17 at 05/12/2022 12:13 PM Calculated from: Serum Creatinine: 0.81 mg/dL (Using min of 1 mg/dL) at 05/12/2022 12:13 PM Serum Sodium: 135 mmol/L at 05/12/2022 12:13 PM Total Bilirubin: 6.5 mg/dL at 05/12/2022 12:13 PM INR(ratio): 1.4 at 05/12/2022 12:13 PM Age: 42 years There is no height or weight on file to calculate BMI. Bilirubin, Total (mg/dL) Date Value 05/12/2022 6.5 INR (no units) Date Value 05/12/2022 1.4 Creatinine (mg/dL) Date Value 05/12/2022 0.81 PAST MEDICAL HISTORY Diagnosis Date Alcoholic cirrhosis (HCC) Ascites Bilateral leg edema COVID-19 virus infection 02/2022 positive home test, mild symptoms Current smoker 04/29/2022 3/4 PPD Hypertension Jaundice Low back pain PAST SURGICAL HISTORY Procedure Laterality Date UNLISTED STOMACH SURGERY stomach surgery as an infant (3 weeks old) FAMILY HISTORY Problem Relation Age of Onset Diabetes Mother other (liver cirrhosis) Paternal Grandmother Employer And Job Title: None on file Years Of Education Completed: Not specified Marital Status: Single Social History Tobacco Use Smoking status: Every Day Packs/day: 1.00 Years: 12.00 Pack years: 12.00 Types: Cigarettes Smokeless tobacco: Never Substance Use Topics Alcohol use: Not Currently Drug use: Yes Types: Marijuana ALLERGIES Allergen Reactions Penicillins Unknown Current Outpatient Medications Medication Sig cyanocobalamin (VITAMIN B-12) 1,000 mcg tab Take 1,000 mcg by mouth once daily. cyclobenzaprine (FLEXERIL) 5 mg tablet Take 5 mg by mouth. Fluticasone Propionate (CUTIVATE) 0.05 % cream Apply to affected area twice daily. APPLY TO AFFECTED AREA furosemide (LASIX) 40 mg tablet Take 40 mg by mouth once daily. spironolactone (ALDACTONE) 100 mg tablet Take 100 mg by mouth. Current Facility-Administered Medications Medication Dose Route Frequency perflutren lipid microspheres 1.3 mL in NaCl (PF) 0.9% 10 mL injection (DEFINITY) INTRAVENOUS DIRECTED PRN sodium chloride 0.9 % (flush) 10 mL (BD POSIFLUSH) 10 mL INTRAVENOUS DIRECTED PRN REVIEW OF SYSTEMS: MUSCULOSKELETAL: No arthralgia, joint pain, or swelling. SKIN: No rashes, lesions. + Jaundice HEMATOLOGY: No bruising or abnormal bleeding. ENDOCRINE: No chronic fatigue, significant weight loss/gain, heat/cold intolerance. INFECT: No fevers, chills, rigors or night sweats. CVS: No chest pain, palpitations, PND. RS: No cough, dyspnea, or hemoptysis. NEURO: No focal weakness, focal sensory loss, headache, visual changes, seizure activity, ataxia, speech/language loss. PSYCH: No history of psychiatric problems, no history of depression PHYSICAL EXAMINATION There were no vitals taken for this visit. General appearance: Awake, conversant, acutely ill, in no apparent distress. Eyes: Pupils equal and reactive bilaterally. Icteric sclera. ENT: Mucous membranes moist. No drainage from ears or nose. Neck supple and trachea midline. No lymphadenopathy. Respiratory: CTA bilaterally. Without respiratory distress, wheezing, or rhonchi. Equal chest excursion. Cardiovascular: S1 S2 auscultated. No murmur, rub, or gallop appreciated. Peripheral pulses palpable and equal. Minimal LE edema. Gastrointestinal: Abdomen soft, distended, nontender. Without mass or pulsatile mass. Atraumatic and without ecchymosis. Genitourinary: Deferred. Musculoskeletal: Appropriate muscle mass, without deformities. No clubbing, cyanosis, or edema. Skin: Limited exam due to patient clinical condition. Warm, pale, dry. CR < 3 seconds. Psychiatric: Calm, cooperative, appropriate affect. Heme/Lymph: No abnormal bleeding, ecchymosis, inflammation, or swelling. Neurologic: GCS = 15 (E4, V5, M6). Without focal deficits. LABORATORY RESULTS: CBC: Hemoglobin (g/dL) Date Value 05/12/2022 12.5 Hematocrit (%) Date Value 05/12/2022 36.6 WBC (k/uL) Date Value 05/12/2022 4.62 Platelet Count (k/uL) Date Value 05/12/2022 123 Chemistries: Glucose (mg/dL) Date Value 05/12/2022 149 Potassium (mmol/L) Date Value 05/12/2022 4.2 Sodium (mmol/L) Date Value 05/12/2022 135 Chloride (mmol/L) Date Value 05/12/2022 98 CO2 (mmol/L) Date Value 05/12/2022 29 Creatinine (mg/dL) Date Value 05/12/2022 0.81 BUN (mg/dL) Date Value 05/12/2022 6 Anion Gap (mmol/L) Date Value 05/12/2022 8 Calcium, Total (mg/dL) Date Value 05/12/2022 9.3 Albumin (g/dL) Date Value 05/12/2022 3.4 (L) Bilirubin, Total (mg/dL) Date Value 05/12/2022 6.5 (H) Bilirubin, Conjugated (mg/dL) Date Value 05/12/2022 3.0 (H) Alkaline Phosphatase (U/L) Date Value 05/12/2022 121 (H) AST (U/L) Date Value 05/12/2022 58 (H) ALT (U/L) Date Value 05/12/2022 21 Protein, Total (g/dL) Date Value 05/12/2022 7.0 Tumor Markers: 05/12/22 AFP: 7.5 RADIOLOGICAL INVESTIGATIONS: CXR: none CT chest w contrast 05/13/22: No CT evidence of neoplastic process in the chest. There is a small low-density left pleural effusion. There is associated dependent atelectasis in the left lower lobe. CT liver w contrast 05/13/22: Liver: Hepatic morphology and masses: Cirrhotic liver morphology. No mass. Geographic regions of peripheral hypervascularity within the right posterior hepatic lobe and lateral segment of left lobe, likely fatty sparing or perfusional. Hepatic vasculature and collaterals: ... Portal venous system (splenic vein, main portal vein, left and right anterior and right posterior portal vein branches): Patent. Portal vein diameter: 1.5 cm. Celiac trunk and SMA: Patent. No stenosis. Hepatic artery: Patent. Replaced right hepatic artery originates from SMA. Hepatic veins: Patent. Collaterals: Spontaneous splenorenal shunt: Small Recanalized paraumbilical vein: Suspect small recanalized umbilical vein Esophageal varices: Absent Mesenteric portosystemic collaterals: Present Related extrahepatic findings: Spleen: 17.3 cm (craniocaudally), enlarged. No mass. Few granulomatous calcifications. Mesentery/Peritoneum: Small volume ascites. No mass. Other findings: Biliary: No bile duct dilation. Cholelithiasis. Pancreas: No mass or duct dilation. Adrenals: No mass. Kidneys: No mass, calculus or hydronephrosis. GI tract: No dilation or wall thickening. Lymph nodes: No abdominal lymphadenopathy. Vasculature (other): No abdominal aortic aneurysm. Bones/Soft Tissues: Degenerative change. Lower thorax: A chest CT performed will be reported separately. [facility] [employer] (topogram) images: No additional findings. Duplex Liver: none Liver Biopsy: none Cardiac Evaluation: Echo 05/13/22 CONCLUSIONS: - Exam indication: Pre-op evaluation for liver transplant - The left ventricle is mildly dilated. Left ventricular systolic function is normal. EF = 67 5% (2D biplane) Normal left ventricular diastolic function. - The right ventricle is normal in size. Right ventricular systolic function is normal. - The left atrial cavity is moderately dilated. - Estimated right ventricular systolic pressure is 39 mmHg consistent with mild pulmonary hypertension. Estimated right atrial pressure is 8 mmHg based on IVC assessment. - The patient has not had a prior CC echocardiographic exam for comparison. ASSESSMENT: Kathy Haynes is a 42 yo male current smoker with HTN, ETOH cirrhosis portal HTN, splenomegaly, thrombocytopenia, EV, ascites, edema. Denies GIB, HE. Ascites and edema controlled with diuretics. Had EVbanding 2 weeks ago. Quit drinking alcohol 04/09/22. Currently doing outpatient counseling. He is working on obtaining his medical marijuana card. States he uses marijuana for appetite stimulation. 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 Patients states his ascites/edema has significantly improved in the last month. MELD-Na decreased from 24 --> 19. It is possible that his condition may continue to improve now that he has quit drinking. 1) Any sign/source of infection: No, Any positive culture: No 2) Any extra hepatic malignancy: No 3) Any major respiratory or cardiac co-morbidity (non hepatic related) precluding transplant:No 4) Any ongoing substance abuse: No 5) on any organ support: No 6) Any surgical risks: Previous surgery: Yes, pyloromyotomy during infancy. Any PV thrombus: No Any shunt: Yes, splenic. Any arterial pathology: No An overview of the transplant process was discussed with the patient. I reviewed types of organ donors, including standard and extended criteria donors; living donation was also discussed. Risks, benefits, and alternatives of liver transplant were reviewed with patient in detail, includingbut not limited to need for re-operation, primary non-function, bile leak, hepatic artery thrombosis, and . Short and director long term care outcomes data was discussed. I reviewed an expected standard post-operative recovery and early follow-up. Lastly, I discussed the need for immunosuppressive therapy associated with transplant. Kathy Haynes is a good candidate for liver transplantation. Possible living donor: Yes, patient's girlfriend. DCD candidate: Yes. HCV Donor: Kathy Haynes wishes to pursue the option of obtaining a HCV positive organ. Patient was accompanied by girlfriend. Advantages and disadvantages of HCV viremic donor transplantation were reviewed. Patient received education on the risk of transmission of HCV following HCV viremic donor transplantation, the natural history of HCV, current therapies for HCV, side effects of therapy, and need for monitoring during and after therapy for HCV. Provided ppatient with educational slide packet and handout titled Transplantation of Hepatitis C Viremic Organs into Hepatitis C Negative Recipients . The risks of HCV transmission post-transplant, fibrosing cholestatic HCV, treatment failure, chronic HCV, cirrhosis and hepatic and non-hepatic manifestations of acute and chronic HCV were specifically discussed. Patient and girlfriend verbalized understanding of the risks and benefits of receiving a hepatitis C viremic organ, and provided verbal consent to be enrolled in the protocol. All of their questions were answered. Rerlo-lm-BVSE: STUDY TITLE: A Multicenter, Prospective, Open-label, Randomized Controlled Clinical Trial to Compare the Safety and Effectiveness of the VitaSmartTM Liver Machine Perfusion System with Static Cold Storage for Organ Preservation Prior to Liver Transplantation ([facility] to [facility]) ([facility] to [facility]) IRB No: [id number] IT GENERALIST: Javi Nguyễn MD, PhD Pager: COORDINATOR/Research Coordinator/Rigger Supervisor: Christine Clement MS PI discussed the above mentioned research protocol with patient and family. All questions were addressed and answered. The IRB approved Informed Consent document was reviewed with the patient. The study purpose, follow up visits, risks, alternatives and costs were discussed. Patient is aware that this study is completely voluntary. A copy of the Informed Consent will be given to the patient, along with the Wireless Engineer's contact information. PLAN: - Continue transplant evaluation. - Smoking cessation. Teresa Israel APRN.ELECTRICAL LOGGING OPERATOR May 14, 2022 8:53 AM *Patient seen and discussed with Dr. Nguyễn. Attending Note I have personally performed a face to face assessment of the patient and have reviewed the OLY note. I performed a substantive portion of the visit including all aspects of the following. My verma findings include: history of alcoholic cirrhosis with decompensation. However, now his liver function and clinical symptoms are improving after he stopped drinking. Other additions or changes: No surgical contraindications for liver transplantation. Reasonable to list him, but this is possibility that he recovers further. Signature: Javi Nguyễn MD Date: 05/24/2022 Time: 1:55 AM documented in this encounterDay[facility] History of Present illness Narrative* Elise Do RN - 05/13/2022 1:30 PM EDT Radiology Service Progress Note DATE OF SERVICE: May 13, 2022 TIME: 12:47 PM PATIENT WEIGHT: 205 LBS PATIENT IDENTITY VERIFICATION COMPLETED USING TWO (2) STANDARD IDENTIFIERS: Name and Date of confirmed by patient verbally. FALL SCREENING: Has the patient had 2 falls in the last year or 1 fall with injury or currently using an Ambulatory Assistive Device (Walker, Cane, Wheelchair, Crutches, etc.)? No PATIENT GENDER DATA: Male ALLERGIES: Reviewed and unchanged CONTRAST ALLERGY: No EXAM: CT -CONTRAST INDUCED NEPHROPATHY RISK FACTORS: Not applicable CREATININE: Creatinine Date Value Ref Range Status 05/12/2022 0.81 0.73 - 1.22 mg/dL Final Estimated Glomerular Filtration Rate Date Value Ref Range Status 05/12/2022 114 >=60 mL/min/1.73m Final Comment: Estimated Glomerular Filtration Rate (eGFR) is calculated using the 2020 CKD-EPI creatinine equation. This equation utilizes serum creatinine, sex, and age as parameters. The creatinine assay has traceable calibration to isotope dilution- mass spectrometry. Refer to KDIGO guidelines for clinical interpretation. In patients with unstable renal function, e.g. those with acute kidney injury, the eGFRmay not accurately reflect actual GFR. P.O.C.T. RESULTS: N/A May 13, 2022 TREATMENT: N/A IV SITE: Ambulatory: A peripheral IV was started in the Right antecubital site with a Angio cath: 20 gauge. IV SITE APPEARANCE: Clean,Dry and Intact SIGNATURE: Elise Do RN PATIENT NAME: Kathy Haynes DATE: May 13, 2022 TIME: 12:47 PM * RT Yared(R) - 05/13/2022 1:30 PM EDT Radiology Service Progress Note PATIENT NAME: Kathy Haynes DATE OF SERVICE: May 13, 2022 TIME: 1:03 PM PATIENT IDENTITY VERIFICATION COMPLETED USING TWO (2) IDENTIFIERS: Name and Date of confirmedby patient verbally and Name and Date of confirmed by identification band. FALL SCREENING: Has the patient had 2 falls in the last year or 1 fall with injury or currently using an Ambulatory Assistive Device (Walker, Cane, Wheelchair, Crutches, etc.)? No PATIENT GENDER DATA: Male PATIENT RELEVANT IMPLANT DATA REVIEWED: Yes RADIOLOGY DEPARTMENT: CT; Exam(s) Completed: Chest and Liver PERIPHERAL IV DATA: Site assessment: Clean,Dry and Intact, Site disposition Discontinued SIGNED BY: RT Yared(R) May 13, 2022 1:03 PM documented in this encounterDayton [facility]09-19-[facility] History of Present illness Narrative* Treva Wolff MD - 05/12/2022 1:45 PM EDT Images from the original note were not included. Hepatology Clinic Note PATIENT NAME: Kathy Haynes ; AGE: 9 1980; 42 year old PCP: Dr. Pinedo primary care provider on file. FOLLOW UP PLAN: See end of note ATTENDING PRECEPTOR: See end of note SUBJECTIVE Kathy Haynes identified by name and personal history. Nursing notes reviewed Chief Complaint No chief complaint on file. History of Present Illness Kathy Haynes is a 42 year old male who presents to [facility] pre transplant evaluation clinic for OLT evaluation referred by Dr. Pepe. He has a PMHx of: - alcohol associated cirrhosis c/b ascites, varices - scoliosis Mr. Haynes is here today with his girlfriend. Mr. Haynes was diagnosed with cirrhosis in February 2022 when he presented to the ED for a sprain of his left forearm. Prior to this presentation he had noticed yellowing of his skin for several months. Atthat time he was found to have an elevated bilirubin (10), plt 80, hb 12.9, AST 123, ALT 37, alk phos 166, INR 1.53 and was referred to a electronic assembler group leader. He was seen by Dr. Pepe in March 2022. Since then work up of liver disease has included: negative for hep A, B C, normal KIRAN AMA ASMA normal ceruloplasmin. He underwent a screening EGD for varices on 05/01/2022 which showed large EV banded, moderate PHG. He had small volume ascites on imaging in March 2022 but has never had a paracentesis. On repeat labs in March 2022 he had an increasing bilirubin and INR so was referred to [facility] for anOLT eval. Today he has no complaints. Most labs are in progress, INR 1.4 (improved). States that the jandice has also improved. States that his last drink was on 04/09/2022 after clinic visit with Dr. Pepe; when he was informed that he has alcohol associated cirrhosis. Prior to this he was never told that alcohol was harming his body and he should quit. He use to have 2-3 beers during the week and a 6 packon the weekend + a couple of fireball shots. He has been drinking heavily for the last 10 years. Nohistory of withdrawal, no DUIs, never felt that his alcohol use was an issue and never tried to stop drinking. Last week he started outpatient alcohol counseling. In the past he had an opioid use disorder and would snort percocet daily in his early 20s for a few years. He quit on his own. Currentlysmokes marijuana and has an appointment next week for evaluation for medical marijuana. Smokes a pack a day for 10-12 years. 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 He lives with his girlfriend. Social support is his gf, mom and daughters. MELD Na: 24 from labs on 04/17/22 Liver History: Etiology: Alcohol associated cirrhosis diagnosed March 2022 Diagnosed: imaging Last Imaging: March 2022. No hepatic lesions, cirrhosis Last EGD: 05/01/2022 Transplant status: undergoing an OLT evaluation MELD-Na score: 19 at 05/12/2022 12:13 PM MELD score: 17 at 05/12/2022 12:13 PM Calculated from: Serum Creatinine: 0.81 mg/dL (Using min of 1 mg/dL) at 05/12/2022 12:13 PM Serum Sodium: 135 mmol/L at 05/12/2022 12:13 PM Total Bilirubin: 6.5 mg/dL at 05/12/2022 12:13 PM INR(ratio): 1.4 at 05/12/2022 12:13 PM Age: 42 years Complications of Cirrhosis: 1. Ascites: Yes, never had a paracentesis 2. SBP: No 3. Non-bleeding varices: Yes 4. Variceal hemorrhage: No 5. Portosystemic encephalopathy: No 6. Hepatorenal syndrome: No 7. Hepatopulmonary syndrome: No 8. Hepatic hydrothorax: No 9. Recurrent cholangitis (PSC): N/A CBC, Coags, BMP, Mg, Phos Recent Labs 05/12/22 1213 WBC 4.62 HB 12.5* HCT 36.6* PLT 123* INR 1.4* APTT 30.9 NA 135* K 4.2 CHLOR 98 CO2 29 BUN 6* CREAT 0.81 GLUC 149* CA 9.3 Liver Function, Amylase, & Lipase Recent Labs 05/12/22 1213 TPROT 7.0 ALB 3.4* ALT 21 AST 58* ALKPHOS 121* TBILI 6.5* PAST MEDICAL HISTORY Diagnosis Date Alcoholic cirrhosis (HCC) Ascites Bilateral leg edema COVID-19 virus infection 02/2022 positive home test, mild symptoms Current smoker 04/29/2022 3/4 PPD Hypertension Jaundice Low back pain PAST SURGICAL HISTORY Procedure Laterality Date UNLISTED STOMACH SURGERY stomach surgery as an infant (3 weeks old) Social History Social History Tobacco Use Smoking status: Every Day Packs/day: 1.00 Years: 12.00 Pack years: 12.00 Types: Cigarettes Smokeless tobacco: Never Substance Use Topics Alcohol use: Not Currently Drug use: Yes Types: Marijuana Family Hisotry FAMILY HISTORY Problem Relation Age of Onset Diabetes Mother other (liver cirrhosis) Paternal Grandmother Medications Medications reviewed: Yes No current outpatient medications on file prior to visit. Current Facility-Administered Medications on File Prior to Visit Medication perflutren lipid microspheres 1.3 mL in NaCl (PF) 0.9% 10 mL injection (DEFINITY) sodium chloride 0.9 % (flush) 10 mL (BD POSIFLUSH) Allergies ALLERGIES Allergen Reactions Penicillins Unknown Review of Systems: 14 point ROS -ve except as mentioned in the HPI OBJECTIVE BP 130/68 Pulse 75 Temp (Src) 98.2 (Oral) Ht 6' 5 (1.96m) Wt 206 lb 11.2 oz (93.8kg) SpO2 100% BMI 24.51 kg/(m^2). General: Pt sitting on bed in no acute distress, speaking in full coherent sentences, nondiaphoretic, cooperative HEENT: +ve scleral icterus, EOMI, oropharynx clear, moist mucous membranes Cardiac: Regular Rhythm, S1 and S2 without appreciation of murmurs, no rubs/gallops/clicks Lungs: clear to auscultation bilaterally Abdomen: soft, non-tender, non-distended, active bowel sounds, linear surgical scar on the right Extremities: warm, no edema, Radial pulses 2+ bilaterally Neurologic: A&Ox3, no asterixis Skin: +ve jaundice ASSESSMENT AND PLAN Kathy Haynes is a 42 year old male with recently diagnosed decompensated alcohol associated liver disease who is here for an OLT evaluation. MELD score in March 2022 was 24 but I suspect that it mustbe improved with cessation of alcohol use . His complications of liver disease are ascites which iswell controlled diuretics and non-bleeding EV s/p banding. He does not appear to have medical contraindications to transplant. His history of polysubstance use is concerning but he is highly motivated and has enrolled himself in a AUD program which is reassuring. When told to stop smoking and stop using non-medical marijuana he was receptive and agreed to do so. He has good social support, his girl friend accompanied him today and he has other family members to help as well. #Decompensated Alcohol associated cirrhosis c/b ascites and non-bleeding EV s/p banding - Ascites: continue lasix 40 and spironolactone 100 - EV: s/p banding 05/01/2022. He is scheduled for a repeat scope. - HCC screening: Will require q6 month screen - Will f/up Hep B and A serologies to see need for vaccination - continue transplant evaluation Preceptor: clinic visit and plan will be discussed with Dr. Abimael Colon MD Hepatology Fellow Date: May 12, 2022 Time: 12:27 PM Hepatology staff note: I saw and evaluated the patient. I agree with the findings and plan of care as listed above. Mr Haynes is a 42 yo . Has alcohol related cirrhosis dx 03/2022 when presented to ED for wrist sprain.His Liver panel was abnormal with elevated bilirubin. He had been drinking for years > 2-4 beersa day. last alcohol was 04/09/22 has enrolled with alcohol counseling. other laboratory work up was reported negative. EGD 05/01/2022 showed large varices that were banded. 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 psoriasis a/p; Mr Haynes has alcohol related cirrhosis based on imaging from OSH No liver Bx Portal hypertension Advised to stop smoking and opioids use and to continue with alcohol rehab No obvious contraindications to begin transplant evaluation Continue diuretics, PFT Start Coreg Continue with plan for EGD as planned with Dr Pepe at local hospital and HCC screening Vaccination if indicated Expect MELD will drop and medical condition will improve with abstinence Adviced to see account manager b2b locally Reggie Hart MD documented in this encounterDayton [facility]-16-[facility] History of Present illness Narrative* Gonzalo Woods RN - 05/09/2022 9:58 AM EDT The following information has been provided/discussed with the patient/family during Shared MedicalAppointment education class: Informed Consent for Organ Transplant Program Participation version June 24, 2021. SRTR information provided and questions answered. Informed patient to call practice coordinator with any questions. UNOS information regarding multiple listings for organ transplantation A copy of [place] solid Organ Transplant Consortium (OSOTC) criteria. The information was reviewed with patient and all questions answered. Evaluation process including presentation to selection committee, OSOTC approval and listing criteria Surgical procedure, including post-operative management, hospitalization, immunosuppressive medications and their side effects (including the risk for hypertension, diabetes, kidney problems and cancers) and usp follow up after transplant. Possibility of recurrent disease discussed with patient. Patient was advised that if they choose not to proceed with transplant, alternative treatment will be provided Potential medical or psychosocial risks Discussed organ donor risk factors including potential risk of developing transmissible disease including but not limited to HIV, hepatitis B and C, malaria, and malignancy. Patient's right to decline such offers for transplant was also addressed Patient was provided with [facility] information sheet regarding transplantation of HepatitisC viremic organs into Hepatitis C negative recipients. Risks and benefits of hepatitis C transplantand treatment were discussed. Patient was advised that he/she can refuse transplantation at any time prior to transplant without any penalty. Patient advised that transplants not performed in a medicare-approved hospital may negatively affect payment for medication coverage by Medicare Part B. INFORMED CONSENT Kathy Haynes Medical Record: [id number] Informed consent for Organ Transplant Program Participation Informed Consent for Organ Transplant Program Participation version June 24, 2021 was providedto patient. The risks, benefits, alternatives and anticipated outcomes of the Organ Transplant Program Participation, and tasks of the personnel to be involved were discussed with the patient. The patient consents to participation in the Organ Transplant Program. The patient was provided an opportunity to ask questions and have questions answered. Gonzalo Woods RN May 09, 2022 documented in this encounterDayton [facility]09-14-2022 Miscellaneous Notes* Telephone Encounter - Wili Rojas - 05/07/2022 9:54 AM EDT Unable to leave patient vm at this time . documented in this encounterDayton [facility]09-07-2022 Hospital Discharge instructions Patient Education 04/30/2022 14:48:16 Esophageal Varices Esophageal Varices Esophageal varices are enlarged veins in the part of the body that moves food from the mouth to thestomach (esophagus). They develop when extra blood is forced to flow through these veins because the blood's normal pathway is blocked. Without treatment, esophageal varices eventually break and bleed (hemorrhage), which can be life-threatening. What are the causes? This condition may be caused by: Scarring of the liver (cirrhosis) due to alcoholism. This is the most common cause. Long-term (chronic) liver disease. Severe heart failure. A blood clot in a vein that supplies the liver (portal vein). A disease that causes inflammation in the organs and other body areas (sarcoidosis). A parasitic infection that can cause liver damage (schistosomiasis). What are the signs or symptoms? Esophageal varices usually do not cause symptoms unless they start to bleed. Symptoms of bleeding esophageal varices include: Vomiting material that is bright red or that is black and looks like coffee grounds. Coughing up blood. Stools (feces) that look black and tarry. Dizziness or light-headedness. Low blood pressure. Loss of consciousness. How is this diagnosed? This condition is diagnosed with a procedure called endoscopy. During endoscopy, your health care provider uses a flexible tube with a small camera on the end of it (endoscope) to look down your throat and examine your esophagus. You may also have other tests, including: Imaging tests such as a CT scan or ultrasound. Blood tests. How is this treated? This condition may be treated with medicines or procedures that reduce pressure in the varices and reduce the risk of bleeding. Medicines are usually used for varices that are not bleeding. Procedures that may be done for bleeding varices include: Placing an elastic band around the varices to keep them from bleeding (variceal ligation). Replacing blood that you have lost due to bleeding. This may include getting a transfusion of bloodor parts of blood, such as platelets or clotting factors. You may be given antibiotic medicine to help prevent infection. Getting an injection that causes the varices to shrink and close (sclerotherapy). You may also be given medicines that tighten (constrict) blood vessels or change blood flow. Placing a tube into your esophagus and then passing a balloon through the tube and inflating the balloon (balloon tamponade). The balloon applies pressure to the bleeding veins to help stop the bleeding. Placing a small tube within the veins in the liver (transjugular intrahepatic portosystemic shunt, TIPS). This decreases blood flow and pressure in the esophageal varices. If other treatments do not work, you may need a liver transplant. Follow these instructions at home: Take zubr-peu-yuilqla and prescription medicines only as told by your health care provider. If you were prescribed an antibiotic medicine, take it as told by your health care provider. Do notstop taking the antibiotic even if you start to feel better. Do not take any NSAIDs (such as aspirin or ibuprofen) before first getting approval from your health care provider. Do not drink alcohol. Return to your normal activities as told by your health care provider. Ask your health care provider what activities are safe for you. Keep all follow-up visits as told by your health care provider. This is important. Contact a health care provider if: You have abdominal pain. You are unable to eat or drink. Get help right away if: You have blood in your stool or vomit. You have stools that look black or tarry. You have chest pain. You feel dizzy or have low blood pressure. You lose consciousness. These symptoms may represent a serious problem that is an emergency. Do not wait to see if the symptoms will go away. Get medical help right away. Call your local emergency services (911 in the [place] Do not drive yourself to the hospital. Summary Esophageal varices are enlarged veins in the esophagus, the part of your body that moves food from your mouth to your stomach. Without treatment, esophageal varices eventually break and bleed (hemorrhage), which can be life-threatening. Esophageal varices usually do not cause symptoms unless they start to bleed. Keep all follow-up visits as told by your health care provider. This is important. This information is not intended to replace advice given to you by your health care provider. Make sure you discuss any questions you have with your health care provider. Document Released: 10/30/2004 Document Revised: 07/23/2018 Document Reviewed: 05/12/2018 [employer] Patient Education 2020 [employer] 04/30/2022 14:48:16 Upper Endoscopy, Adult, Care After Upper Endoscopy, Adult, Care After This sheet gives you information about how to care for yourself after your procedure. Your health care provider may also give you more specific instructions. If you have problems or questions, contact your health care provider. What can I expect after the procedure? After the procedure, it is common to have: A sore throat. Mild stomach pain or discomfort. Bloating. Nausea. Follow these instructions at home: Follow instructions from your health care provider about what to eat or drink after your procedure. Return to your normal activities as told by your health care provider. Ask your health care provider what activities are safe for you. Take fbce-iku-vywpyjg and prescription medicines only as told by your health care provider. Do not drive for 24 hours if you were given a sedative during your procedure. Keep all follow-up visits as told by your health care provider. This is important. Contact a health care provider if you have: A sore throat that lasts longer than one day. Trouble swallowing. Get help right away if: You vomit blood or your vomit looks like coffee grounds. You have: ?A fever. ?Bloody, black, or tarry stools. ?A severe sore throat or you cannot swallow. ?Difficulty breathing. ?Severe pain in your chest or abdomen. Summary After the procedure, it is common to have a sore throat, mild stomach discomfort, bloating, and nausea. Do not drive for 24 hours if you were given a sedative during the procedure. Follow instructions from your health care provider about what to eat or drink after your procedure. Return to your normal activities as told by your health care provider. This information is not intended to replace advice given to you by your health care provider. Make sure you discuss any questions you have with your health care provider. Document Released: 02/08/2013 Document Revised: 02/01/2019 Document Reviewed: 01/10/2019 [employer] Patient Education 2020 [employer]. [facility]09-07-2022 Evaluation + Plan noteExtracted from: Title:Post-anesthesia - General Author:Maninder Harrington DO Date:04/30/22 Plan Transfer/ Discharge: Condition stable. Extracted from: Title:Pre-anesthesia - Endoscopy Author:Maninder Bañuelos Jr., DO Date:04/30/22 Plan [place] [employer] Anesthesiologists (ASA) physical status classification: Class III. Anesthetic Preoperative Plan Anesthesia: General. . Anesthetic plan, risks, benefits, and alternatives discussed with the patient and/or family. Patient verbalized understanding. Future Appointments Appointment Date:05/08/2022 10:20:00 AM Scheduled Provider: Location:[facility] Appointment Type: Nurse Visit Appointment Date:05/08/2022 12:00:00 PM Scheduled Provider:Frances PEPE MD Location:[facility] App[facility]ment Type:[facility] Follow Up Future Scheduled Tests Laboratory* Urinalysis 03/20/22 * CBC w/ Auto Diff 03/20/22 * Comprehensive Metabolic Panel 03/20/22 * C-Reactive Protein 03/20/22 * PT 03/20/22 Radiology* XR Abdomen 1 View 03/20/22 * XR Spine Lumbosacral Minimum 4 Views 03/20/22 [facility]09-07-2022 Miscellaneous Notes* Telephone Encounter - Gracie Loving RN - 04/30/2022 11:40 AM EDT See full intake note from 04/29/22. Spoke with pt's significant other. They would like to schedule transplant evaluation the week of 05/12/22. Advised that education class will be 05/09/22. Pt is now active on [employer]. Explained how to do virtual visits. Will submit orders for scheduling. Gracie Loving RN [facility] Miscellaneous Notes* Telephone Encounter - Gracie Loving RN - 04/29/2022 9:51 PM EDT [facility] Referral for Liver Transplant This is a 41 year old male with ETOH liver disease referred for OLT evaluation by Dr. Pepe. I spoke with Patient today and obtained all necessary information. Full eval will be scheduled per protocol. Pt has had a previous liver transplant evaluation: No Instructed Patient to get dental clearance and provide the following medical records: dermatology clearance, EGD report (sched for tomorrow). Pt has had COVID-19 vaccination: No-he is willing to get Pt to bring COVID-19 vaccination card: Yes If pt has not had COVID-19 vaccination, pt was advised that it is a requirement at [facility] to be fully vaccinated to be listed for transplant: Yes Patient instructed to review liver transplant information online at [email or web address] or paperinformation sent via FedEx and to have someone accompany them to appointments (explained current [facility] visitation policy regarding outpatient visits due to COVID 19). All questions answered. Contact information provided and advised to call our office with any questions/concerns or schedule changes. Will schedule eval after pt speaks with his support about coming for eval. He will call back to letme know dates. MELD Na: 24 from labs on 04/17/22 Medical History: PAST MEDICAL HISTORY Diagnosis Date Alcoholic cirrhosis (HCC) Ascites Bilateral leg edema COVID-19 virus infection 02/2022 positive home test, mild symptoms Current smoker 04/29/2022 3/4 PPD Hypertension Jaundice Low back pain Surgical History: PAST SURGICAL HISTORY Procedure Laterality Date UNLISTED STOMACH SURGERY stomach surgery as an (3 weeks old) Last Weight: 210 Lbs Mobility aid: None Substance History: Smoking: Yes: Amount: 3/4 PPD, # of years: 16, Last use: current Cough: No Hoarseness: No ETOH: Yes: Last Drink: January or February 2022-drank beer daily, more on weekends, Rehab: No Drugs: Yes: Last Use: snorted percocet age [age], marijuana a couple days ago- uses 1-2x/wk (no card) Rehab: No I advised pt to abstain from alcohol and/or drug use: Yes Advised to start alcohol treatment [facility] Maintenance: Last Mammogram: Not applicable Last Pap: Not applicable Last Dental Exam: 9-10 mo Last Derm Visit: never Last Colonoscopy: never, age 41 Last Endoscopy: scheduled tomorrow Medications: Med list obtained: Yes Beta Estela: No No current outpatient medications on file. No current facility-administered medications for this visit. ALLERGIES Allergen Reactions Penicillins Unknown Vaccination History (from previous 10 years - Hepatitis A and B, Tetanus, Zostivax, Flu, Pneumonia,etc.): Epic Gracie Loving RN documented in this encounterDay[facility] Miscellaneous Notes* Telephone Encounter - Angela Boss - 04/18/2022 9:27 AM EDT LIVER TRANSPLANT REFERRAL Kathy Haynes [id number] Diagnosis: Cirrhosis-ETOH, Last [id number] Date of diagnosis: 04-07-2022 MELD Na: 25 Referring MD: Dr. Frances Pepe Gastro MD: Dr. Frances Pepe COVID-19: Are you vaccinated for COVID19? No-patient is willing to get vaccine in order to get list. MyCHART Is the patient signed up for MyChart? No If YES - send patient the OLT New Referral Message If NO - obtain their email address AND send mychart sign up information: email address: [email or web address] How long does it take you to drive to [facility]? 2 hours Who will accompany you to your transplant evaluation? Patient's fiance, mom Have you ever been evaluated for liver transplant? No If yes, where? N/A Status: N/A Outside Records Needed: Yes Where are outside records being requested from: [facility] Requested? Yes Full or Partial Evaluation? partial Do you have a potential living donor? No A nurse will call for medical intake, -who should she call? Patient -what phone number? [phone] Advise patient that the call may come from a restricted phone number for intake. Additional Comments: Patient DOES NOT have any insurance and is currently working on getting insurance (Medicaid) Angela Boss documented in this [facility] Hospital Discharge instructions Follow Up Care 03/21/2022 10:56:46 With:TONY EUGENE, ISREAL Daniels, REGENCY MERIDIAN Address: [facility] [address] [place] [address]- When:2 weeks [facility] [id number] Evaluation + Plan note Future Scheduled Tests Laboratory* Sedimentation Rate Automated 03/20/22 * Urinalysis 03/20/22 * CBC w/ Auto Diff 03/20/22 * Comprehensive Metabolic Panel 03/20/22 * C-Reactive Protein 03/20/22 * PT 03/20/22 Radiology* XR Abdomen 1 View 03/20/22 * XR Spine Lumbosacral Minimum 4 Views 03/20/22 [facility] [place] Evaluation + Plan note Future Appointments Appointment Date:04/11/2022 08:00:00 AM Scheduled Provider: Location:.[facility] Appointment Type:US Abdominal/Pelvis (FT) Appointment Date:04/17/2022 01:00:00 PM Scheduled Provider:Frances PEPE MD Location:[facility] Appointment Type:[facility] Follow Up Appointment Date:04/17/2022 03:30:00 PM Scheduled Provider:Jass Caruso DO Location:[facility] Occupational Health Appointment Type:IH Injury Follow up BW (FT) Future Scheduled Tests Laboratory* Sedimentation Rate Automated 03/20/22 * Urinalysis 03/20/22 * CBC w/ Auto Diff 03/20/22 * Comprehensive Metabolic Panel 03/20/22 * C-Reactive Protein 03/20/22 * PT 03/20/22 Radiology* XR Abdomen 1 View 03/20/22 * US Liver 04/11/22 * XR Spine Lumbosacral Minimum 4 Views 03/20/22 [facility] Evaluation + Plan note Future Appointments Appointment Date:04/11/2022 08:00:00 AM Scheduled Provider: Location:.[facility] Appointment Type:US Abdominal/Pelvis (FT) Appointment Date:04/17/2022 01:00:00 PM Scheduled Provider:Frances PEPE MD Location:[facility] Appointment Type:[facility] Follow Up Appointment Date:04/17/2022 03:30:00 PM Scheduled Provider:Jass Caruso DO Location:[facility] Occupational Health Appointment Type:IH Injury Follow up BW (FT) Diagnostic Tests Pending * HCV Antibody RFX to Quant PCR 04/09/22 * KIRAN w/Reflex if POS 04/09/22 * Antineutrophil Cytoplasmic Antibody 04/09/22 * Ceruloplasmin 04/09/22 * CMV Antibody IgG 04/09/22 * CMV Antibody IgM 04/09/22 * HBV Core Ab 04/09/22 * Hepatitis A Antibody IgM 04/09/22 * Hepatitis B Surface Antibody 04/09/22 * Hepatitis B Surface Antigen 04/09/22 * HIV Screen 4th Generation wRfx 04/09/22 * Hsv,IgM I/II Combo 04/09/22 * Smooth Muscle Antibody Screen 04/09/22 Future Scheduled Tests Laboratory* Sedimentation Rate Automated 03/20/22 * Urinalysis 03/20/22 * CBC w/ Auto Diff 03/20/22 * Comprehensive Metabolic Panel 03/20/22 * C-Reactive Protein 03/20/22 * PT 03/20/22 Radiology* XR Abdomen 1 View 03/20/22 * US Liver 04/11/22 * XR Spine Lumbosacral Minimum 4 [facility] App[facility]ments Appointment Date:04/17/2022 01:00:00 PM Scheduled Provider:Frances PEPE MD Location:[facility] Appointment Type:BADH Follow Up Appointment Date:04/17/2022 03:30:00 PM Scheduled Provider:Jass Caruso DO Location:[facility] Occupational Health Appointment Type:IH Injury Follow up [facility] () Future Scheduled Tests Laboratory* Sedimentation Rate Automated 03/20/22 * Urinalysis 03/20/22 * CBC w/ Auto Diff 03/20/22 * Comprehensive Metabolic Panel 03/20/22 * C-Reactive Protein 03/20/22 * PT 03/20/22 Radiology* XR Abdomen 1 View 03/20/22 * XR Spine Lumbosacral Minimum 4 Views 03/20/22 [facility] Future Appointments Appointment Date:04/24/2022 01:00:00 PM Scheduled Provider:Frances PEPE MD Location:[facility] Appointment Type:BAD Follow Up Future Scheduled Tests Laboratory* Sedimentation Rate Automated 03/20/22 * Urinalysis 03/20/22 * CBC w/ Auto Diff 03/20/22 * Comprehensive Metabolic Panel 03/20/22 * C-Reactive Protein 03/20/22 * PT 03/20/22 Radiology* XR Abdomen 1 View 03/20/22 * XR Spine Lumbosacral Minimum 4 Views 03/20/22 [facility] Future Appointments Appointment Date:04/30/2022 02:45:00 PM Scheduled Provider: Location:[facility] Appointment Type:Surgery FT Appointment Date:05/08/2022 12:00:00 PM Scheduled Provider:Frances PEPE MD Location:[facility] Appointment Type:[facility] Follow Up Future Scheduled Tests Laboratory* Urinalysis 03/20/22 * CBC w/ Auto Diff 03/20/22 * Comprehensive Metabolic Panel 03/20/22 * C-Reactive Protein 03/20/22 * PT 03/20/22 Radiology* XR Abdomen 1 View 03/20/22 * XR Spine Lumbosacral Minimum 4 Views 03/20/22 [facility] Future Appointments Appointment Date:07/11/2022 03:15:00 PM Scheduled Provider: Location:[facility] Appointment Type:Surgery PAT COVID Testing Appointment Date:07/18/2022 11:00:00 AM Scheduled Provider: Location:[facility] Appointment Type:Surgery FT Future Scheduled Tests Laboratory* PT & PTT 05/15/22 * PT & PTT 06/06/22 * Urinalysis 03/20/22 * CBC w/ Auto Diff 03/20/22 * Comprehensive Metabolic Panel 03/20/22 * C-Reactive Protein 03/20/22 * Hepatic Function Panel 05/15/22 * Hepatic Function Panel 06/06/22 * PT 03/20/22 Radiology* XR Abdomen 1 View 03/20/22 * XR Spine Lumbosacral Minimum 4 Views 03/20/22 [facility] Evaluation + Plan note Future Appointments Appointment Date:07/11/2022 03:15:00 PM Scheduled Provider: Location:[facility] Appointment Type:Surgery PAT COVID Testing Appointment Date:07/18/2022 11:00:00 AM Scheduled Provider: Location:[facility] Appointment Type:Surgery FT Diagnostic Tests Pending * Urinalysis 06/19/22 Future Scheduled Tests Laboratory* PT & PTT 05/15/22 * PT & PTT 06/06/22 * Basic Metabolic Panel 06/17/22 * CBC w/ Auto Diff 06/17/22 * Hepatic Function Panel 05/15/22 * Hepatic Function Panel 06/06/22 * PT 03/20/22 Radiology* XR Abdomen 1 View 03/20/22 * XR Spine Lumbosacral Minimum 4 Views 03/20/22 [facility] Future Appointments Appointment Date:08/28/2022 02:15:00 PM Scheduled Provider:Frances PEPE MD Location:[facility] Appointment Type:BADH Follow Up Future Scheduled Tests Laboratory* PT & PTT 07/23/22 * Basic Metabolic Panel 06/17/22 * CBC w/ Auto Diff 06/17/22 * Hepatic Function Panel 07/23/22 * PT 03/20/22 Radiology* XR Abdomen 1 View 03/20/22 * XR Spine Lumbosacral Minimum 4 Views 03/20/22 [facility] Future Appointments Appointment Date:08/28/2022 02:15:00 PM Scheduled Provider:Frances PEPE MD Location:[facility] Appointment Type:BAD Follow Up Diagnostic Tests Pending * PT & PTT 07/31/22 * Hepatic Function Panel 07/31/22 Future Scheduled Tests Laboratory* Basic Metabolic Panel 06/17/22 * CBC w/ Auto Diff 06/17/22 * PT 03/20/22 Radiology* XR Abdomen 1 View 03/20/22 * XR Spine Lumbosacral Minimum 4 Views 03/20/22 [facility] Future Appointments Appointment Date:08/28/2022 02:15:00 PM Scheduled Provider:Frances PEPE MD Location:[facility] Appointment Type:BADH Follow Up Future Scheduled Tests Laboratory* Basic Metabolic Panel 06/17/22 * CBC w/ Auto Diff 06/17/22 * PT 03/20/22 Radiology* XR Abdomen 1 View 03/20/22 * XR Spine Lumbosacral Minimum 4 Views 03/20/22 [facility] Future Appointments Appointment Date:11/04/2022 07:30:00 AM Scheduled Provider: Location:.[facility] Appointment Type:US Abdominal/Pelvis (FT) Appointment Date:11/13/2022 01:30:00 PM Scheduled Provider:Frances PEPE MD Location:[facility] Appointment Type:BADH Follow Up Future Scheduled Tests Laboratory* Basic Metabolic Panel 06/17/22 * CBC w/ Auto Diff 06/17/22 * PT 03/20/22 Radiology* XR Abdomen 1 View 03/20/22 * US Liver 11/04/22 * XR Spine Lumbosacral Minimum 4 Views 03/20/22 [facility] Future Appointments Appointment Date:11/04/2022 07:30:00 AM Scheduled Provider: [facility] Appointment Type:US Abdominal/Pelvis () Appointment Date:11/13/2022 01:30:00 PM Scheduled Provider:Frances PEPE MD Location:[facility] Appointment Type:BAD Follow Up Future Scheduled Tests Laboratory* Ferritin 10/23/22 * Iron Level 10/23/22 * Vitamin B12 Level 10/23/22 Radiology* XR Abdomen 1 View 03/20/22 * US Liver 11/04/22 * XR Spine Lumbosacral Minimum 4 Views 03/20/22 [facility] Future Appointments Appointment Date:11/04/2022 07:30:00 AM Scheduled Provider: [facility] Appointment Type:US Abdominal/Pelvis () Appointment Date:11/13/2022 01:30:00 PM Scheduled Provider:Frances PEPE MD Location:[facility] Appointment Type:[facility] Follow Up Diagnostic Tests Pending * Drug Screen Urine 10/28/22 Future Scheduled Tests Laboratory* Ferritin 10/23/22 * Iron Level 10/23/22 * Vitamin B12 Level 10/23/22 Radiology* XR Abdomen 1 View 03/20/22 * US Liver 11/04/22 * XR Spine Lumbosacral Minimum 4 Views 03/20/22 [facility] Future Appointments Appointment Date:11/13/2022 01:30:00 PM Scheduled Provider:Frances PEPE MD Location:[facility] Appointment Type:BAD Follow Up Future Scheduled Tests Laboratory* Ferritin 10/23/22 * Iron Level 10/23/22 * Vitamin B12 Level 10/23/22 Radiology* XR Abdomen 1 View 03/20/22 * XR Spine Lumbosacral Minimum 4 Views 03/20/22 [facility] Future Appointments Appointment Date:05/28/2023 03:00:00 PM Scheduled Provider:Frances PEPE MD Location:[facility] Appointment Type:BAD Follow Up Future Scheduled Tests Laboratory* Basic Metabolic Panel 12/15/22 * Ferritin 10/23/22 * Iron Level 10/23/22 * Vitamin B12 Level 10/23/22 * Vitamin B12 Level 11/27/22 Radiology* XR Abdomen 1 View 03/20/22 * XR Spine Lumbosacral Minimum 4 Views 03/20/22 [facility] + Plan note Future Appointments Appointment Date:05/28/2023 03:00:00 PM Scheduled Provider:Amrik Jeffrey MD Location:[facility] Appointment Type:[facility] Follow Up Future Scheduled Tests Laboratory* Basic Metabolic Panel 12/15/22 * Ferritin 10/23/22 * Iron Level 10/23/22 * Vitamin B12 Level 10/23/22 * Vitamin B12 Level 11/27/22 [facility] note* Diagnosis Alcoholic cirrhosis of liver with ascites (HCC)- Primary Alcoholic cirrhosis of liver Liver transplant candidate [facility] Diagnosis Encounter for education about transplantation- Primary documented in this encounter [facility] note* Diagnosis Alcoholic cirrhosis of liver with ascites (HCC)- Primary Alcoholic cirrhosis of liver [facility]* Diagnosis Alcoholic cirrhosis of liver with ascites (HCC) Alcoholic cirrhosis of liver Liver transplant candidate [facility]* Diagnosis Alcoholic cirrhosis of liver with ascites (HCC)- Primary Alcoholic cirrhosis of liver Liver transplant candidate [facility]* Diagnosis Encounter for education- Primary Counseling NOS documented in this encounter [facility] note* Diagnosis NO SHOW- Primary [facility]* Diagnosis Alcoholic cirrhosis of liver with ascites (HCC)- Primary Alcoholic cirrhosis of liver Liver transplant candidate Dietary counseling and surveillance Dietary surveillance and counseling Awaiting organ transplant Awaiting organ transplant status [facility]* Diagnosis Alcoholic cirrhosis of liver with ascites (HCC)- Primary Alcoholic cirrhosis of liver Liver transplant candidate [facility]* Diagnosis Alcoholic cirrhosis, unspecified whether ascites present (HCC) [facility]* Diagnosis Alcoholic cirrhosis of liver with ascites (HCC)- Primary Alcoholic cirrhosis of liver Pre-transplant evaluation for liver transplant [Z01.818 (ICD-10-CM)] [facility] Diagnosis Alcoholic cirrhosis of liver with ascites (HCC)- Primary Alcoholic cirrhosis of liver [facility] Diagnosis Alcoholic cirrhosis, unspecified whether ascites present (HCC) [facility] Diagnosis Alcoholic cirrhosis of liver with ascites (HCC)- Primary Alcoholic cirrhosis of liver [facility] Diagnosis Alcoholic cirrhosis of liver with ascites (HCC)- Primary Alcoholic cirrhosis of liver [facility]* Diagnosis Alcoholic cirrhosis of liver with ascites (HCC) Alcoholic cirrhosis of liver [facility] Diagnosis Abnormal results of liver function studies- Primary Nonspecific abnormal results of liver function study Alcoholic cirrhosis of liver with ascites (HCC) Alcoholic cirrhosis of liver [facility] Diagnosis Abnormal results of liver function studies Nonspecific abnormal results of liver function study Alcoholic cirrhosis of liver with ascites (HCC) Alcoholic cirrhosis of liver [facility] Diagnosis Alcoholic cirrhosis of liver with ascites (HCC)- Primary Alcoholic cirrhosis of liver [facility] Diagnosis Alcoholic cirrhosis of liver with ascites (HCC)- Primary Alcoholic cirrhosis of liver [facility]* Diagnosis Alcoholic cirrhosis of liver with ascites (HCC)- Primary Alcoholic cirrhosis of liver [facility] Diagnosis ALISON (acute kidney injury) (HCC)- Primary Acute kidney failure, unspecified [facility] Diagnosis Alcoholic cirrhosis of liver with ascites (HCC) Alcoholic cirrhosis of liver [facility] Diagnosis Liver replaced by transplant (HCC)- Primary Liver replaced by transplant [facility] Diagnosis Liver replaced by transplant (HCC)- Primary Liver replaced by transplant [facility] Diagnosis Encounter for aftercare following liver transplant (HCC)- Primary Aftercare following organ transplant Liver replaced by transplant (HCC) Liver replaced by transplant Need for prophylactic immunotherapy Encounter for monitoring tacrolimus therapy Encounter for therapeutic drug monitoring Encounter for medication review and counseling Other specified counseling Hyponatremia Hyposmolality and/or hyponatremia [facility]* Diagnosis Postoperative pain Other acute postoperative pain Liver transplant recipient (HCC) documented in this encounter [facility] note* Diagnosis Liver replaced by transplant (HCC)- Primary Liver replaced by transplant Immunosuppressed status (HCC) Unspecified disorder of immune mechanism documented in this encounter [facility] note* Diagnosis Cardiomyopathy, nonischemic (HCC)- Primary Other primary cardiomyopathies Liver transplant recipient (HCC) Chronic systolic heart failure (HCC) Chronic systolic heart failure documented in this encounter [facility] course Narrative No data available for this section [facility] Discharge instructions No data available for this section [facility] Progress note No data available for this section [facility] Reason for referral (narrative)* Diagnostic Procedure Only (Routine) - Closed Specialty Diagnoses / Procedures Referred By Wendy small Referred To Contact CT IMAGING Diagnoses Alcoholic cirrhosis of liver with ascites (HCC) Liver transplant candidate Procedures CT LIVER W IVCON CT ABDOMEN W/CONTRAST Treva Loera MD [address] [place] [address] Ct Imaging Referral ID Status Reason Start Date Expiration Date V isits Requested Visits Authorized [id number] Closed Auto-Generate d Referral 04/30/2022 08/23/2022 1 1 [facility] for referral (narrative)* Diagnostic Procedure Only (Routine) - Pending Review Specialty Diagnoses / Procedures Referred By Wendy small Referred To Contact US IMAGING Diagnoses Alcoholic cirrhosis of liver with ascites (HCC) Procedures US DOPPLER COMPLETE DUP-SCAN ARTL PRUDENCE ABDL/PEL/SCROT&/RPR ORGN COM Treva Loera MD [address] [place] [address] Us Imaging Referral ID Status Reason Start Date Expiration Date Visits Requested Visits Authorized [id number] Pending Review Auto-Generat ed Referral 10/29/2022 11/08/2023 1 1 * Diagnostic Procedure Only (Routine) - Pending Review Specialty Diagnoses / Procedures Referred By Wendy t Referred To Contact US IMAGING Diagnoses Alcoholic cirrhosis of liver with ascites (HCC) Procedures US ABD LIVER VASCULAR US ABDOMINAL REAL TIME W/IMAGE LIMITED DUP-SCAN ARTL PRUDENCE ABDL/PEL/SCROT&/RPR ORGN COM Treva Loera MD [address] [place] [address] Us Imaging Referral ID Status Reason Start Date Expiration Date Visits Requested Visits Authorized [id number] Pending Review Auto-Generat ed Referral 10/29/2022 11/08/2023 1 1 [facility] for referral (narrative)* Diagnostic Procedure Only (Routine) - Closed Specialty Diagnoses / Procedures Referred By Wendy t Referred To Contact US IMAGING Diagnoses Alcoholic cirrhosis of liver with ascites (HCC) Procedures US DOPPLER COMPLETE DUP-SCAN ARTL PRUDENCE ABDL/PEL/SCROT&/RPR ORGN COM Treva Loera MD [address] [place] [address] Us Imaging Referral ID Status Reason Start Date Expiration Date V isits Requested Visits Authorized [id number] Closed Auto-Generated Referral Patient Cleared - INN Insurance Found 10/29/2022 11/08/2023 1 1 * Diagnostic Procedure Only (Routine) - Closed Specialty Diagnoses / Procedures Referred By Wendy t Referred To Contact US IMAGING Diagnoses Alcoholic cirrhosis of liver with ascites (HCC) Procedures US ABD LIVER VASCULAR US ABDOMINAL REAL TIME W/IMAGE LIMITED DUP-SCAN ARTL PRUDENCE ABDL/PEL/SCROT&/RPR ORGN COM Treva Loera MD [address] [place] [address] Us Imaging Referral ID Status Reason Start Date Expiration Date V isits Requested Visits Authorized [id number] Closed Auto-Generated Referral Patient Cleared - INN Insurance Found 10/29/2022 11/08/2023 1 1 [facility] ([facility]ative[facility] Outpatient Procedure (Routine) - Pending Review Specialty Diagnoses / Procedures Referred By Contac t Referred To Contact [facility] Diagnoses Alcoholic cirrhosis of liver with ascites (HCC) Procedures ECHO ECHO TTHRC R-T 2D W/WOM-MODE COMPL SPEC&COLR D Treva Loera MD [address] [place] [address] [facility] [address] [place] [address] Referral ID Status Reason Start Date Expiration Date Visits Requested Visits Authorized [id number] Pending Review Auto-Generat ed Referral 05/04/2023 03/31/2024 1 1 [facility] Summary Purpose Family History No Family History Records Found No data available for this section No Family History Records FoundNo Family History Records Found Advance Directives No Advanced Directives Records FoundLatest Code Status on File Code Status Date Activated Date Inactivated Comments Full Code 04/01/2023 12:07 PM Question Answer Comments Full Code Order Discussed With: Patient Documents on File Type Date 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 Advance Directive(s) 04/02/2023 6:07 PM Latest Code Status on File Code Status Date Activated Date Inactivated Comments Full Code 04/01/2023 12:07 PM 04/03/2023 6:22 PM Question Answer Comments Full Code Order Discussed With: Patient Latest Code Status on File Code Status Date Activated Date Inactivated Comments Full Code 04/06/2023 2:17 PM Question Answer Comments Full Code Order Discussed With: Discussion Not Medically Appropriate Code Status History Code Status Date Activated Date Inactivated Comments Full Code 04/01/2023 12:07 PM 04/03/2023 6:22 PM Question Answer Comments Full Code Order Discussed With: Patient Latest Code Status on File Code Status Date Activated Date Inactivated Comments Full Code 04/06/2023 2:17 PM 04/13/2023 8:28 PM Question Answer Comments Full Code Order Discussed With: Discussion Not Medically Appropriate Latest Code Status on File Code Status Date Activated Date Inactivated Comments Full Code 04/06/2023 2:17 PM 04/13/2023 8:28 PM Question Answer Comments Full Code Order Discussed With: Discussion Not Medically Appropriate Code Status History Code Status Date Activated Date Inactivated Comments Full Code 04/01/2023 12:07 PM 04/03/2023 6:22 PM Question Answer Comments Full Code Order Discussed With: Patient Reason for Referral Specialty Diagnoses / Procedures Referred By Contac t Referred To Contact TRANSPLANT Diagnoses Alcoholic cirrhosis of liver with ascites (HCC) Procedures REFERRAL FOR TRANSPLANT WAITLIST AUTHORIZATION Treva Loera MD [address] [place] [address] [facility] [address] [place] [address] Referral ID Status Reason Start Date Expiration Date Visits Requested Visits Authorized [id number] Pending Review PCP Requested Referral 03/26/2023 03/25/2024 99 99 Specialty Diagnoses / Procedures Referred By Contac t Referred To Contact CT IMAGING Diagnoses Abnormal results of liver function studies Alcoholic cirrhosis of liver with ascites (HCC) Procedures CT LIVER W IVCON CT ABDOMEN W/CONTRAST Treva Loera MD [address] [address] [address] Imaging Referral ID Status Reason Start Date Expiration Date Visits Requested Visits Authorized [id number] Pending Review Auto-Generat ed Referral 01/10/2023 01/10/2024 1 1 Specialty Diagnoses / Procedures Referred By Contac t Referred To Contact Diagnoses Alcoholic cirrhosis of liver with ascites (HCC) Liver transplant candidate Procedures CONSULT TO HEPATOLOGY OFFICE/OUTPATIENT [facility] MDM 60-74 MINUTES Treva Loera MD [address] [address] Referral ID Status Reason Start Date Expiration Date Visits Requested Visits Authorized [id number] Pending Review PCP Requested Referral 05/12/2022 04/30/2023 1 1 Specialty Diagnoses / Procedures Referred By Wendy t Referred To Contact [facility] Diagnoses Alcoholic cirrhosis of liver with ascites (HCC) Liver transplant candidate Procedures SPIROMETRY BASELINE ONLY SPMTRY W/VC EXPIRATORY PRUDENCE W/WO MXML VOL VNTJ Treva Loera MD [address] [place] [place] [address] [facility] [place] [facility] [place] [address] Referral ID Status Reason Start Date Expiration Date Visits Requested Visits Authorized [id number] Pending Review Auto-Generat ed Referral 05/12/2022 05/30/2023 1 1 Specialty Diagnoses / Procedures Referred By Contac t Referred To Contact [facility] Diagnoses Alcoholic cirrhosis of liver with ascites (HCC) Liver transplant candidate Procedures ECG COMPLETE ECG ROUTINE ECG W/LEAST 12 LDS W/I&R Treva Loera MD [address] [place] [address] [address] [place] [address] Referral ID Status Reason Start Date Expiration Date Visits Requested Visits Authorized [id number] Pending Review Auto-Generat ed Referral 05/12/2022 04/30/2023 1 1 Specialty Diagnoses / Procedures Referred By Wendy t Referred To Contact [facility] Diagnoses Alcoholic cirrhosis of liver with ascites (HCC) Liver transplant candidate Procedures ECHO ECHO TTHRC R-T 2D W/WOM-MODE COMPL SPEC&COLR D Treva Loera MD [address] [place] [address] [address] [place] [address] Referral ID Status Reason Start Date Expiration Date Visits Requested Visits Authorized [id number] Pending Review Auto-Generat ed Referral 05/12/2022 04/30/2023 1 1 Specialty Diagnoses / Procedures Referred By Wendy t Referred To Contact CT IMAGING Diagnoses Alcoholic cirrhosis of liver with ascites (HCC) Liver transplant candidate Procedures CT LIVER W IVCON CT ABDOMEN W/CONTRAST Treva Loera MD [address] [place] [address] Ct Imaging Referral ID Status Reason Start Date Expiration Date Visits Requested Visits Authorized [id number] Pending Review Auto-Generat ed Referral 05/12/2022 05/30/2023 1 1 Specialty Diagnoses / Procedures Referred By Contac t Referred To Contact CT IMAGING Diagnoses Alcoholic cirrhosis of liver with ascites (HCC) Liver transplant candidate Procedures CT CHEST WO IVCON DIAGNOSTIC COMPUTED TOMOGRAPHY THORAX W/O CNTRST Treva Loera MD [address] [place] [address] Ct Imaging Referral ID Status Reason Start Date Expiration Date Visits Requested Visits Authorized [id number] Pending Review Auto-Generat ed Referral 05/12/2022 05/30/2023 1 1 Specialty Diagnoses / Procedures Referred By Contac t Referred To Contact Nutrition Diagnoses Alcoholic cirrhosis of liver with ascites (HCC) Liver transplant candidate Procedures CONSULT TO NUTRITION THERAPY OFFICE/OUTPATIENT [facility] 60-74 MINUTES Treva Loera MD [address] [place] [address] Referral ID Status Reason Start Date Expiration Date Visits Requested Visits Authorized [id number] Pending Review PCP Requested Referral 05/12/2022 04/30/2023 1 1 Specialty Diagnoses / Procedures Referred By Contac t Referred To Contact Infectious Diseases Diagnoses Alcoholic cirrhosis of liver with ascites (HCC) Liver transplant candidate Procedures CONSULT TO INFECTIOUS DISEASES OFFICE/OUTPATIENT [facility] 60-74 MINUTES Treva Loera MD [address] [place] [address] Referral ID Status Reason Start Date Expiration Date Visits Requested Visits Authorized [id number] Pending Review PCP Requested Referral 05/12/2022 04/30/2023 1 1 Specialty Diagnoses / Procedures Referred By Contac t Referred To Contact Anesthesiology Diagnoses Alcoholic cirrhosis of liver with ascites (HCC) Liver transplant candidate Procedures CONSULT TO ANESTHESIOLOGY OFFICE/OUTPATIENT [facility] 60-74 MINUTES Treva Loera MD [address] [place] [address] Referral ID Status Reason Start Date Expiration Date Visits Requested Visits Authorized [id number] Pending Review PCP Requested Referral 05/12/2022 04/30/2023 1 1 Additional Source Comments Care Team (unrecognized sect ion and content) Solar Consultant Relationship Specialty Start Date End Date Kaushal Stewart V [address] [place] [id number] PCP - General Internal Medicine 04/02/23 Teena Gonzalez CNP [address] [place] [address] Family Medicine 04/02/23 Solar Consultant Relationship Specialty Start Date End Date Kaushal Stewart V [address] [place] [address] PCP - General Internal Medicine 04/02/23 Teena Gonzalez CNP [address] [place] [address] Family Medicine 04/02/23 Solar Consultant Relationship Specialty Start Date End Date Kaushal Stewart V [address] [place] [address] PCP - General Internal Medicine 04/02/23 Teena Gonzalez CNP [address] [place] [address] Family Medicine 04/02/23 Christine To RN [facility] [address] [place] [address] Registered Nurse Transplant Center 04/07/23 Solar Consultant Relationship Specialty Start Date End Date Kaushal Stewart V [address] [place] [address] PCP - General Internal Medicine 04/02/23 Teena Gonzalez CNP [address] [place] [address] Family Medicine 04/02/23 Christine To RN [facility] [address] [place] [address] Registered Nurse Transplant Center 04/07/23 Solar Consultant Relationship Specialty Start Date End Date BeeStefano josephhar Ramses [address] [place], [place] [phone] PCP - General Internal Medicine 04/02/23 Teena Gonzalez CNP [address] [place] [id number] Family Medicine 04/02/23 Christine To RN [facility] [address] [place] [address] Registered Nurse Transplant Center 04/07/23 Solar Consultant Relationship Specialty Start Date End Date Kaushal Stewart V [address] [place], [place] [phone] PCP - General Internal Medicine 04/02/23 Teena Gonzalez CNP [address] [id number] Family Medicine 04/02/23 Christine To, RN [facility] [address] [place] [address] Registered Nurse Transplant Center 04/07/23 Solar Consultant Relationship Specialty Start Date End Date Kaushal Stewart V [address] [place], [place] [phone] PCP - General Internal Medicine 04/02/23 Teena Gonzalez CNP [address] [place] [address] Family Medicine 04/02/23 Christine To, RN [facility] [address] [place] [address] Registered Nurse Transplant Center 04/07/23 Solar Consultant Relationship Specialty Start Date End Date Kaushal Stewart V [address] [place], [place] [phone] PCP - General Internal Medicine 04/02/23 Teena Gonzalez, STEPAN [address] [place] [address] Family Medicine 04/02/23 Christine To RN [address] [address] Registered Nurse Transplant Center 04/07/23 Solar Consultant Relationship Specialty Start Date End Date Zeeindra Kaushal, Ramses [address] [place], [place] [phone] PCP - General Internal Medicine 04/02/23 Teena Gonzalez CNP [address] [place] [address] Family Medicine 04/02/23 Christine To RN [address] [address] Registered Nurse Transplant Center 04/07/23 Solar Consultant Relationship Specialty Start Date End Date ZeeindraKaushal Ramses [address] [place] [address] PCP - General Internal Medicine 04/02/23 Teena Gonzalez CNP [address] [place] [address] Family Medicine 04/02/23 Christine To RN [id number] [place] [address] Registered Nurse Transplant Center 04/07/23 Solar Consultant Relationship Specialty Start Date End Date Kaushal Stewart V [address] [place] [address] PCP - General Internal Medicine 04/02/23 Teena Gonzalez CNP [address] [place] [address] Family Medicine 04/02/23 Christine To, RN [facility] [address] [place] [address] Registered Nurse Transplant Center 04/07/23 Solar Consultant Relationship Specialty Start Date End Date Kaushal Stewart V [address] [place] [phone] PCP - General Internal Medicine 04/02/23 Teena Gonzalez CNP [address] [phone] Family Medicine 04/02/23 Christine To, RN [facility] [address] [place] [address] Registered Nurse Transplant Center 04/07/23 Solar Consultant Relationship Specialty Start Date End Date Kaushal Stewart V, MD [address] [facility] [address] [place] [phone] PCP - General Internal Medicine 04/02/23 Teena Gonzalez CNP [address] [place] [address] Family Medicine 04/02/23 Christine To, RN [facility] [address] [place] [address] Registered Nurse Transplant Center 04/07/23 Solar Consultant Relationship Specialty Start Date End Date Kaushal Stewart V, MD [address] [place] [address] PCP - General Internal Medicine 04/02/23 Teena Gonzalez CNP [address] [place] [address] Family Medicine 04/02/23 Christine To RN [facility] [address] [place] [address] Registered Nurse Transplant Center 04/07/23 Solar Consultant Relationship Specialty Start Date End Date Kaushal Stewart V, MD [address] [place] [address] PCP - General Internal Medicine 04/02/23 Teena Gonzalez CNP [address] [place] [address] Family [facility] 04/02/23 Christine To RN [facility] [address] [place] [address] Registered Nurse Transplant Center 04/07/23 Solar Consultant Relationship Specialty Start Date End Date Kaushal Stewart V, MD [address] [place] [address] PCP - General Internal Medicine 04/02/23 Teena Gonzalez CNP [address] [place] [address] Family Medicine 04/02/23 Christine To RN [facility] [address] [place] [address] Registered Nurse Transplant Center 04/07/23 Solar Consultant Relationship Specialty Start Date End Date Kaushal Stewart V, MD [address] [place] [address] PCP - General Internal Medicine 04/02/23 Teena Gonzalez CNP [address] [place] [address] Family Medicine 04/02/23 Christine To RN [facility] [address] [place] [address] Registered Nurse Transplant [place] 04/07/23 Solar Consultant Relationship Specialty Start Date End Date Kaushal Stewart V, MD [address] [place] [address] PCP - General Internal Medicine 04/02/23 Teena Gonzalez CNP [address] [place] [address] Family Medicine 04/02/23 Christine To RN [facility] [address] [place] [address] Registered Nurse Transplant [place] 04/07/23 (unrecognized sect ion and content) No Status Records FoundNo Status Records FoundNo Status Records Found INFORMATION SOURCE (unrecogn ized section and content) DATE CREATED AUTHOR 03/28/2022 [facility] DATE CREATED AUTHOR AUTHOR'S ORGANIZ ATION 09/22/2023 [facility] DATE CREATED AUTHOR AUTHOR'S ORGANIZ ATION 09/27/2023 [facility] Source Comments (unrecognize d section and content) In the event this informatio n is protected by the Federal Confidentiality of Alcohol and Drug Abuse Patient Records regulations: The Federal rules restrict any use of the information to criminally investigate or prosecute any alcohol or drug abuse patient.[facility] HospitalIn the event this information is protected by the Federal Confidentiality of Alcohol and Drug Abuse Patient Records regulations: The Federal rules restrict any use of the information to criminally investigate or prosecute any alcohol or drug abuse patient.[facility] HospitalIn the event this information is protected by the Federal Confidentiality of Alcohol and Drug Abuse Patient Records regulations: The Federal rules restrict any use of the information to criminally investigate or prosecute any alcohol or drug abuse patient.[facility] HospitalIn the event this information is protected by the Federal Confidentiality of Alcohol and Drug Abuse Patient Records regulations: The Federal rules restrict any use of the information to criminally investigate or prosecute any alcohol or drug abuse patient.[facility] HospitalIn the event this information is protected by the Federal Confidentiality of Alcohol and Drug Abuse Patient Records regulations: The Federal rules restrict any use of the information to criminally investigate or prosecute any alcohol or drug abuse patient.[facility] HospitalIn the event this information is protected by the Federal Confidentiality of Alcohol and Drug Abuse Patient Records regulations: The Federal rules restrict any use of the information to criminally investigate or prosecute any alcohol or drug abuse patient.[facility] HospitalIn the event this information is protected by the Federal Confidentiality of Alcohol and Drug Abuse Patient Records regulations: The Federal rules restrict any use of the information to criminally investigate or prosecute any alcohol or drug abuse patient.[facility] HospitalIn the event this information is protected by the Federal Confidentiality of Alcohol and Drug Abuse Patient Records regulations: The Federal rules restrict any use of the information to criminally investigate or prosecute any alcohol or drug abuse patient.[facility] HospitalIn the event this information is protected by the Federal Confidentiality of Alcohol and Drug Abuse Patient Records regulations: The Federal rules restrict any use of the information to criminally investigate or prosecute any alcohol or drug abuse patient.[facility] HospitalIn the event this information is protected by the Federal Confidentiality of Alcohol and Drug Abuse Patient Records regulations: The Federal rules restrict any use of the information to criminally investigate or prosecute any alcohol or drug abuse patient.[facility] HospitalIn the event this information is protected by the Federal Confidentiality of Alcohol and Drug Abuse Patient Records regulations: The Federal rules restrict any use of the information to criminally investigate or prosecute any alcohol or drug abuse patient.[facility] HospitalIn the event this information is protected by the Federal Confidentiality of Alcohol and Drug Abuse Patient Records regulations: The Federal rules restrict any use of the information to criminally investigate or prosecute any alcohol or drug abuse patient.[facility] HospitalIn the event this information is protected by the Federal Confidentiality of Alcohol and Drug Abuse Patient Records regulations: The Federal rules restrict any use of the information to criminally investigate or prosecute any alcohol or drug abuse patient.[facility] HospitalIn the event this information is protected by the Federal Confidentiality of Alcohol and Drug Abuse Patient Records regulations: The Federal rules restrict any use of the information to criminally investigate or prosecute any alcohol or drug abuse patient.[facility] HospitalIn the event this information is protected by the Federal Confidentiality of Alcohol and Drug Abuse Patient Records regulations: The Federal rules restrict any use of the information to criminally investigate or prosecute any alcohol or drug abuse patient.[facility] HospitalIn the event this information is protected by the Federal Confidentiality of Alcohol and Drug Abuse Patient Records regulations: The Federal rules restrict any use of the information to criminally investigate or prosecute any alcohol or drug abuse patient.[facility] HospitalIn the event this information is protected by the Federal Confidentiality of Alcohol and Drug Abuse Patient Records regulations: The Federal rules restrict any use of the information to criminally investigate or prosecute any alcohol or drug abuse patient.[facility] HospitalIn the event this information is protected by the Federal Confidentiality of Alcohol and Drug Abuse Patient Records regulations: The Federal rules restrict any use of the information to criminally investigate or prosecute any alcohol or drug abuse patient.[facility] HospitalIn the event this information is protected by the Federal Confidentiality of Alcohol and Drug Abuse Patient Records regulations: The Federal rules restrict any use of the information to criminally investigate or prosecute any alcohol or drug abuse patient.[facility] HospitalIn the event this information is protected by the Federal Confidentiality of Alcohol and Drug Abuse Patient Records regulations: The Federal rules restrict any use of the information to criminally investigate or prosecute any alcohol or drug abuse patient.[facility] HospitalIn the event this information is protected by the Federal Confidentiality of Alcohol and Drug Abuse Patient Records regulations: The Federal rules restrict any use of the information to criminally investigate or prosecute any alcohol or drug abuse patient.[facility] HospitalIn the event this information is protected by the Federal Confidentiality of Alcohol and Drug Abuse Patient Records regulations: The Federal rules restrict any use of the information to criminally investigate or prosecute any alcohol or drug abuse patient.[facility] HospitalIn the event this information is protected by the Federal Confidentiality of Alcohol and Drug Abuse Patient Records regulations: The Federal rules restrict any use of the information to criminally investigate or prosecute any alcohol or drug abuse patient.[facility] HospitalIn the event this information is protected by the Federal Confidentiality of Alcohol and Drug Abuse Patient Records regulations: The Federal rules restrict any use of the information to criminally investigate or prosecute any alcohol or drug abuse patient.[facility] HospitalIn the event this information is protected by the Federal Confidentiality of Alcohol and Drug Abuse Patient Records regulations: The Federal rules restrict any use of the information to criminally investigate or prosecute any alcohol or drug abuse patient.[facility] HospitalIn the event this information is protected by the Federal Confidentiality of Alcohol and Drug Abuse Patient Records regulations: The Federal rules restrict any use of the information to criminally investigate or prosecute any alcohol or drug abuse patient.[facility] HospitalIn the event this information is protected by the Federal Confidentiality of Alcohol and Drug Abuse Patient Records regulations: The Federal rules restrict any use of the information to criminally investigate or prosecute any alcohol or drug abuse patient.[facility] HospitalIn the event this information is protected by the Federal Confidentiality of Alcohol and Drug Abuse Patient Records regulations: The Federal rules restrict any use of the information to criminally investigate or prosecute any alcohol or drug abuse patient.[facility] HospitalIn the event this information is protected by the Federal Confidentiality of Alcohol and Drug Abuse Patient Records regulations: The Federal rules restrict any use of the information to criminally investigate or prosecute any alcohol or drug abuse patient.[facility] HospitalIn the event this information is protected by the Federal Confidentiality of Alcohol and Drug Abuse Patient Records regulations: The Federal rules restrict any use of the information to criminally investigate or prosecute any alcohol or drug abuse patient.[facility] HospitalIn the event this information is protected by the Federal Confidentiality of Alcohol and Drug Abuse Patient Records regulations: The Federal rules restrict any use of the information to criminally investigate or prosecute any alcohol or drug abuse patient.[facility] HospitalIn the event this information is protected by the Federal Confidentiality of Alcohol and Drug Abuse Patient Records regulations: The Federal rules restrict any use of the information to criminally investigate or prosecute any alcohol or drug abuse patient.[facility] HospitalIn the event this information is protected by the Federal Confidentiality of Alcohol and Drug Abuse Patient Records regulations: The Federal rules restrict any use of the information to criminally investigate or prosecute any alcohol or drug abuse patient.[facility] HospitalIn the event this information is protected by the Federal Confidentiality of Alcohol and Drug Abuse Patient Records regulations: The Federal rules restrict any use of the information to criminally investigate or prosecute any alcohol or drug abuse patient.[facility] HospitalIn the event this information is protected by the Federal Confidentiality of Alcohol and Drug Abuse Patient Records regulations: The Federal rules restrict any use of the information to criminally investigate or prosecute any alcohol or drug abuse patient.[facility] HospitalIn the event this information is protected by the Federal Confidentiality of Alcohol and Drug Abuse Patient Records regulations: The Federal rules restrict any use of the information to criminally investigate or prosecute any alcohol or drug abuse patient.[facility] HospitalIn the event this information is protected by the Federal Confidentiality of Alcohol and Drug Abuse Patient Records regulations: The Federal rules restrict any use of the information to criminally investigate or prosecute any alcohol or drug abuse patient.[facility] HospitalIn the event this information is protected by the Federal Confidentiality of Alcohol and Drug Abuse Patient Records regulations: The Federal rules restrict any use of the information to criminally investigate or prosecute any alcohol or drug abuse patient.[facility] HospitalIn the event this information is protected by the Federal Confidentiality of Alcohol and Drug Abuse Patient Records regulations: The Federal rules restrict any use of the information to criminally investigate or prosecute any alcohol or drug abuse patient.[facility] HospitalIn the event this information is protected by the Federal Confidentiality of Alcohol and Drug Abuse Patient Records regulations: The Federal rules restrict any use of the information to criminally investigate or prosecute any alcohol or drug abuse patient.[facility] HospitalIn the event this information is protected by the Federal Confidentiality of Alcohol and Drug Abuse Patient Records regulations: The Federal rules restrict any use of the information to criminally investigate or prosecute any alcohol or drug abuse patient.[facility] HospitalIn the event this information is protected by the Federal Confidentiality of Alcohol and Drug Abuse Patient Records regulations: The Federal rules restrict any use of the information to criminally investigate or prosecute any alcohol or drug abuse patient.[facility] HospitalIn the event this information is protected by the Federal Confidentiality of Alcohol and Drug Abuse Patient Records regulations: The Federal rules restrict any use of the information to criminally investigate or prosecute any alcohol or drug abuse patient.[facility] HospitalIn the event this information is protected by the Federal Confidentiality of Alcohol and Drug Abuse Patient Records regulations: The Federal rules restrict any use of the information to criminally investigate or prosecute any alcohol or drug abuse patient.[facility] HospitalIn the event this information is protected by the Federal Confidentiality of Alcohol and Drug Abuse Patient Records regulations: The Federal rules restrict any use of the information to criminally investigate or prosecute any alcohol or drug abuse patient.[facility] HospitalIn the event this information is protected by the Federal Confidentiality of Alcohol and Drug Abuse Patient Records regulations: The Federal rules restrict any use of the information to criminally investigate or prosecute any alcohol or drug abuse patient.[facility] HospitalIn the event this information is protected by the Federal Confidentiality of Alcohol and Drug Abuse Patient Records regulations: The Federal rules restrict any use of the information to criminally investigate or prosecute any alcohol or drug abuse patient.[facility] HospitalIn the event this information is protected by the Federal Confidentiality of Alcohol and Drug Abuse Patient Records regulations: The Federal rules restrict any use of the information to criminally investigate or prosecute any alcohol or drug abuse patient.[facility] HospitalIn the event this information is protected by the Federal Confidentiality of Alcohol and Drug Abuse Patient Records regulations: The Federal rules restrict any use of the information to criminally investigate or prosecute any alcohol or drug abuse patient.[facility] HospitalIn the event this information is protected by the Federal Confidentiality of Alcohol and Drug Abuse Patient Records regulations: The Federal rules restrict any use of the information to criminally investigate or prosecute any alcohol or drug abuse patient.[facility] HospitalIn the event this information is protected by the Federal Confidentiality of Alcohol and Drug Abuse Patient Records regulations: The Federal rules restrict any use of the information to criminally investigate or prosecute any alcohol or drug abuse patient.[facility] HospitalIn the event this information is protected by the Federal Confidentiality of Alcohol and Drug Abuse Patient Records regulations: The Federal rules restrict any use of the information to criminally investigate or prosecute any alcohol or drug abuse patient.[facility] HospitalIn the event this information is protected by the Federal Confidentiality of Alcohol and Drug Abuse Patient Records regulations: The Federal rules restrict any use of the information to criminally investigate or prosecute any alcohol or drug abuse patient.[facility] HospitalIn the event this information is protected by the Federal Confidentiality of Alcohol and Drug Abuse Patient Records regulations: The Federal rules restrict any use of the information to criminally investigate or prosecute any alcohol or drug abuse patient.[facility] HospitalIn the event this information is protected by the Federal Confidentiality of Alcohol and Drug Abuse Patient Records regulations: The Federal rules restrict any use of the information to criminally investigate or prosecute any alcohol or drug abuse patient.[facility] HospitalIn the event this information is protected by the Federal Confidentiality of Alcohol and Drug Abuse Patient Records regulations: The Federal rules restrict any use of the information to criminally investigate or prosecute any alcohol or drug abuse patient.[facility] HospitalIn the event this information is protected by the Federal Confidentiality of Alcohol and Drug Abuse Patient Records regulations: The Federal rules restrict any use of the information to criminally investigate or prosecute any alcohol or drug abuse patient.[facility] HospitalIn the event this information is protected by the Federal Confidentiality of Alcohol and Drug Abuse Patient Records regulations: The Federal rules restrict any use of the information to criminally investigate or prosecute any alcohol or drug abuse patient.[facility] HospitalIn the event this information is protected by the Federal Confidentiality of Alcohol and Drug Abuse Patient Records regulations: The Federal rules restrict any use of the information to criminally investigate or prosecute any alcohol or drug abuse patient.[facility] HospitalIn the event this information is protected by the Federal Confidentiality of Alcohol and Drug Abuse Patient Records regulations: The Federal rules restrict any use of the information to criminally investigate or prosecute any alcohol or drug abuse patient.[facility] HospitalIn the event this information is protected by the Federal Confidentiality of Alcohol and Drug Abuse Patient Records regulations: The Federal rules restrict any use of the information to criminally investigate or prosecute any alcohol or drug abuse patient.[facility] HospitalIn the event this information is protected by the Federal Confidentiality of Alcohol and Drug Abuse Patient Records regulations: The Federal rules restrict any use of the information to criminally investigate or prosecute any alcohol or drug abuse patient.[facility] HospitalIn the event this information is protected by the Federal Confidentiality of Alcohol and Drug Abuse Patient Records regulations: The Federal rules restrict any use of the information to criminally investigate or prosecute any alcohol or drug abuse patient.[facility] HospitalIn the event this information is protected by the Federal Confidentiality of Alcohol and Drug Abuse Patient Records regulations: The Federal rules restrict any use of the information to criminally investigate or prosecute any alcohol or drug abuse patient.[facility] HospitalIn the event this information is protected by the Federal Confidentiality of Alcohol and Drug Abuse Patient Records regulations: The Federal rules restrict any use of the information to criminally investigate or prosecute any alcohol or drug abuse patient.[facility] HospitalIn the event this information is protected by the Federal Confidentiality of Alcohol and Drug Abuse Patient Records regulations: The Federal rules restrict any use of the information to criminally investigate or prosecute any alcohol or drug abuse patient.[facility] HospitalIn the event this information is protected by the Federal Confidentiality of Alcohol and Drug Abuse Patient Records regulations: The Federal rules restrict any use of the information to criminally investigate or prosecute any alcohol or drug abuse patient.[facility] HospitalIn the event this information is protected by the Federal Confidentiality of Alcohol and Drug Abuse Patient Records regulations: The Federal rules restrict any use of the information to criminally investigate or prosecute any alcohol or drug abuse patient.[facility] HospitalIn the event this information is protected by the Federal Confidentiality of Alcohol and Drug Abuse Patient Records regulations: The Federal rules restrict any use of the information to criminally investigate or prosecute any alcohol or drug abuse patient.[facility] HospitalIn the event this information is protected by the Federal Confidentiality of Alcohol and Drug Abuse Patient Records regulations: The Federal rules restrict any use of the information to criminally investigate or prosecute any alcohol or drug abuse patient.[facility] Reason for Visit (unrecogniz ed section and content) Reason Comments Radiology CT Specialty Diagnoses / Procedures Referred By Contac t Referred To Contact CT IMAGING Diagnoses Abnormal results of liver function studies Alcoholic cirrhosis of liver with ascites (HCC) Procedures CT LIVER W IVCON CT ABDOMEN W/CONTRAST Treva Loera MD [address] [place] [address] Ct Imaging Referral ID Status Reason Start Date Expiration Date V isits Requested Visits Authorized [id number] Closed Auto-Generate d Referral Patient Cleared INN/SMCP Payor Auth Obtained 01/10/2023 01/10/2024 1 1 Reason Comments New Patient Specialty Diagnoses / Procedures Referred By Contac t Referred To Contact TRANSPLANT Diagnoses Alcoholic cirrhosis, unspecified whether ascites present (HCC) Procedures CONSULT TO TRANSPLANT CENTER OFFICE/OUTPATIENT NEW HIGH MDM 60-74 MINUTES ECG ROUTINE ECG W/LEAST 12 LDS I&R ONLY ECHO TTHRC R-T 2D W/WOM-MODE COMPL SPEC&COLR D COLONOSCOPY W/BIOPSY SINGLE/MULTIPLE US ABDOMINAL REAL TIME W/IMAGE DOCUMENTATION ECHO TTHRC R-T 2D W/WO M-MODE COMPLETE REST&ST CYTP C/V AUTO THIN LYR PREPJ SCR MNL RESCR PHYS SCREENING MAMMOGRAM BILATERAL DXA BONE DENSITY STUDY SITES AXIAL SKEL OFFICE/OUTPATIENT NEW HIGH MDM 60-[address] ABDOMEN W & W/O CONTRAST CT ANGIOGRAPHY CHEST W/CONTRAST/NONCONTRAST MRI ABDOMEN W/O & W/CONTRAST MATERIAL COLLECTION VENOUS BLOOD VENIPUNCTURE Frances Pepe MD [address] [place] [address] [facility] [address] [place] [address] Referral ID Status Reason Start Date Expiration Date Visits Requested Visits Authorized [id number] Authorized PCP Requested Referral Financial Clearance Required - OON Payor Patient Cleared INN/SMCP Payor Auth Obtained 04/24/2022 04/24/2023 99 99 Reason Comments Referral - Liver Txp Reason Comments Referral - Liver Txp Intake-pt to call b ack about scheduling Reason Comments Referral - Liver Txp Evaluation scheduli ng Reason Comments Reminder Call Reason Comments Transplant Evaluation Consent Patient Education (Transplant) Specialty Diagnoses / Procedures Referred By Contac t Referred To Contact TRANSPLANT Diagnoses Alcoholic cirrhosis, unspecified whether ascites present (HCC) Procedures CONSULT TO TRANSPLANT CENTER OFFICE/OUTPATIENT NEW HIGH MDM 60-74 MINUTES ECG ROUTINE ECG W/LEAST 12 LDS I&R ONLY ECHO TTHRC R-T 2D W/WOM-MODE COMPL SPEC&COLR D COLONOSCOPY W/BIOPSY SINGLE/MULTIPLE US ABDOMINAL REAL TIME W/IMAGE DOCUMENTATION ECHO TTHRC R-T 2D W/WO M-MODE COMPLETE REST&ST CYTP C/V AUTO THIN LYR PREPJ SCR MNL RESCR PHYS SCREENING MAMMOGRAM BILATERAL DXA BONE DENSITY STUDY 1/> SITES AXIAL SKEL OFFICE/OUTPATIENT [facility] 60-[address] ABDOMEN W & W/O CONTRAST CT ANGIOGRAPHY CHEST W/CONTRAST/NONCONTRAST MRI ABDOMEN W/O & W/CONTRAST MATERIAL COLLECTION VENOUS BLOOD VENIPUNCTURE Frances Pepe MD [address] [place] [address] [facility] Main [address] [place] [address] Reason Comments No Show Specialty Diagnoses / Procedures Referred By Contac t Referred To Contact Infectious Diseases Diagnoses Alcoholic cirrhosis of liver with ascites (HCC) Liver transplant candidate Procedures CONSULT TO INFECTIOUS DISEASES OFFICE/OUTPATIENT [facility] 60-74 MINUTES Treva Loera MD [address] [place] [address] [place] [address] Referral ID Status Reason Start Date Expiration Date Visits Requested Visits Authorized [id number] Authorized PCP Requested Referral 04/30/2022 08/23/2022 1 1 Reason Comments Patient Education Assessment Specialty Diagnoses / Procedures Referred By Contac t Referred To Contact Nutrition / NUTR MAIN Diagnoses Alcoholic cirrhosis of liver with ascites (HCC) Liver transplant candidate Procedures CONSULT TO NUTRITION THERAPY OFFICE/OUTPATIENT [facility] 60-74 MINUTES Treva Loera MD [address] [place] [id number] [place] [address] [address] [place] [address] Referral ID Status Reason Start Date Expiration Date V isits Requested Visits Authorized [id number] Closed PCP Requested Referral OON/Self Pay Override 04/30/2022 08/23/2022 1 1 Reason Comments CHEMCIAL DEPENDENCY MEETING Reason Comments CHEMCICAL DEPENDENCY MEETING OUTCOME PAT IENT CALL Reason Comments CHEMICAL DEPENDENCY SELECTION COMMITTEE Reason Comments POSITIVE PETH RESULTS Reason Comments Care Everywhere Reason Comments CHEMICAL DEPENDENCY SUBCOMITTEE OUTCOME PATIENT CALL Reason Comments CHEMICAL DEPENDENCY SUBCOMMITTEE Reason Comments Appointment Reason Comments CHEMICAL DEPENDENCY TRANSPLANT SELECTION MEETING OUTCOME Reason Comments CHEMICAL DEPENDENCY OUTCOME PATIENT CALL Reason Comments Patient Update Reason Comments CHEMICAL DEPENDENCY SELECTION COMMITTEE OUTCOME PATIENT NOT Specialty Diagnoses / Procedures Referred By Contac t Referred To Contact TRANSPLANT Diagnoses Alcoholic cirrhosis, unspecified whether ascites present (HCC) Procedures CONSULT TO TRANSPLANT CENTER OFFICE/OUTPATIENT NEW HIGH MDM 60-74 MINUTES ECG ROUTINE ECG W/LEAST 12 LDS I&R ONLY ECHO TTHRC R-T 2D W/WOM-MODE COMPL SPEC&COLR D COLONOSCOPY W/BIOPSY SINGLE/MULTIPLE US ABDOMINAL REAL TIME W/IMAGE DOCUMENTATION ECHO TTHRC R-T 2D W/WO M-MODE COMPLETE REST&ST CYTP C/V AUTO THIN LYR PREPJ SCR MNL RESCR PHYS SCREENING MAMMOGRAM BILATERAL DXA BONE DENSITY STUDY /> SITES AXIAL SKEL OFFICE/OUTPATIENT NEW HIGH MDM 60-[address] ABDOMEN W & W/O CONTRAST CT ANGIOGRAPHY CHEST W/CONTRAST/NONCONTRAST MRI ABDOMEN W/O & W/CONTRAST MATERIAL COLLECTION VENOUS BLOOD VENIPUNCTURE Frances Pepe MD [address] [place] [address] [facility] Main [address] [place] [address] Referral ID Status Reason Start Date Expiration Date Visits Requested Visits Authorized [id number] Authorized PCP Requested Referral Financial Clearance Required - OON Payor Patient Cleared INN/SMCP Payor Auth Obtained OON/Self Pay Override 04/24/2022 04/24/2023 99 99 Reason Comments CHEMICAL DEPENDENCY SUBCOMMITTEE OUTCOME PATIENT NOTIFICATI Reason Comments Liver Transplant Selection Committee Out come Patient Notifi Reason Comments Cirrhosis Reason Comments Listed For Liver Transplant Reason Comments ALISON vs HRS Follow Up Reason Comments Organ Offer Reason Comments Hospital F/U Reason Comments Established Patient Specialty Diagnoses / Procedures Referred By Contac t Referred To Contact TRANSPLANT Diagnoses Alcoholic cirrhosis, unspecified whether ascites present (HCC) Procedures CONSULT TO TRANSPLANT CENTER OFFICE/OUTPATIENT NEW HIGH MDM 60-74 MINUTES ECG ROUTINE ECG W/LEAST 12 LDS I&R ONLY ECHO TTHRC R-T 2D W/WOM-MODE COMPL SPEC&COLR D COLONOSCOPY W/BIOPSY SINGLE/MULTIPLE US ABDOMINAL REAL TIME W/IMAGE DOCUMENTATION ECHO TTHRC R-T 2D W/WO M-MODE COMPLETE REST&ST CYTP C/V AUTO THIN LYR PREPJ SCR MNL RESCR PHYS SCREENING MAMMOGRAM BILATERAL DXA BONE DENSITY STUDY / SITES AXIAL SKEL OFFICE/OUTPATIENT NEW HIGH MDM 60-[address] ABDOMEN W & W/O CONTRAST CT ANGIOGRAPHY CHEST W/CONTRAST/NONCONTRAST MRI ABDOMEN W/O & W/CONTRAST MATERIAL COLLECTION VENOUS BLOOD VENIPUNCTURE Frances Pepe MD [address] [place] [address] [facility] [address] [place] [address] Reason Comments Refill Request Inc 11/25 Reason Comments Refill Request Specialty Diagnoses / Procedures Referred By Contac t Referred To Contact TRANSPLANT Diagnoses Alcoholic cirrhosis of liver with ascites (HCC) Procedures REFERRAL FOR TRANSPLANT WAITLIST AUTHORIZATION Treva Loera MD [address] [address] [facility] [address] [place] [address] Referral ID Status Reason Start Date Expiration Date Visits Requested Visits Authorized [id number] Authorized PCP Requested Referral 03/26/2023 03/28/2024 99 99 Reason Comments Medication Question lasix Reason Comments Rx Refills Increase fk back to 4mg bid Reason Comments Refill Request Lower tacrolimus Reason Comments Consult Specialty Diagnoses / Procedures Referred By Contact Referred To Contact Cardiology / CARDIOVASCULAR MEDICINE Diagnoses Follow-up exam Hospital D/C 2 week follow up new 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 This clinical summary was aggregated from multiple sources. Caution should be exercised in using it in the provision of clinical care. This summary normalizes information from multiple sources, and as a consequence, information in this document may materially change the coding, format and clinical context of patient data. In addition, data may be omitted in some cases. CLINICAL DECISIONS SHOULD BE BASED ON THE PRIMARY CLINICAL RECORDS. [facility], [facility]. provides no warranty or guarantee of the accuracy or completeness of information in this document.
[2023-09-28 09:00] LABS: Basophils Absolute Auto 0.1 10^3/uL (0.0-0.1); Basophils Percent Auto 1.3 % (0.2-2.0); Eosinophils Absolute Auto 0.3 10^3/uL (0.0-0.7); Eosinophils Percent Auto 5.3 % (0.9-7.0); Hemoglobin 14.6 g/dL (14.0-18.0); Immature Granulocytes Abs Auto 0.01 10^3/uL (0.00-0.03); Immature Granulocytes Pct Auto 0.2 % (0.0-0.5); Lymphocytes Absolute Auto 2.3 10^3/uL (1.2-3.8); Lymphocytes Percent Auto 37.9 % (20.5-60.0); Mean Corpuscular Hemoglobin 29.9 pg (25.9-34.0); Mean Corpuscular Volume 88.1 fL (80.0-94.0); Monocytes Absolute Auto 0.5 10^3/uL (0.3-0.8); Monocytes Percent Auto 8.3 % (1.7-12.0); Neutrophils Absolute Auto 2.9 10^3/uL (1.4-6.5); Platelet Count 179 10^3/uL (150-450); Red Blood Count 4.88 10^6/uL (4.70-6.10); Red Cell Distribution Width 12.2 % (11.0-15.0); White Blood Count 6.2 10^3/uL (4.0-11.0)
[2023-09-28 09:06] LABS: Alanine Aminotransferase 34 U/L (16-63); Albumin Globulin Ratio 1.1; Albumin Level 3.9 g/dL (3.4-5.0); Alkaline Phosphatase 132 U/L (46-116); Anion Gap 10.1; Aspartate Amino Transferase 27 U/L (15-37); Bilirubin Total 0.9 mg/dL (0.2-1.0); Calcium 9.4 mg/dL (8.5-10.1); Carbon Dioxide 32.1 mmol/L (21.0-32.0); Chloride 102 mmol/L (98-107); Estimated GFR (African America >60 (>=60); Estimated GFR (Non-African Ame >60 (>=60); Gamma Glutamyl Transpeptidase 40 U/L (15-85); Globulin 3.4 g/dL; Glucose 102 mg/dL (74-106); Magnesium 1.7 mg/dL (1.8-2.4); Phosphorus 3.5 mg/dL (2.6-4.7); Potassium 4.2 mmol/L (3.5-5.1); Sodium 140 mmol/L (136-145); Total Protein 7.3 g/dL (6.4-8.2)
[2023-10-19 08:38] LABS: BOX Test Sent Out Y
[2023-10-19 08:46] LABS: Basophils Absolute Auto 0.1 10^3/uL (0.0-0.1); Basophils Percent Auto 1.3 % (0.2-2.0); Eosinophils Absolute Auto 0.3 10^3/uL (0.0-0.7); Hematocrit 43.2 % (42.0-54.0); Hemoglobin 14.8 g/dL (14.0-18.0); Immature Granulocytes Abs Auto 0.01 10^3/uL (0.00-0.03); Immature Granulocytes Pct Auto 0.2 % (0.0-0.5); Lymphocytes Absolute Auto 2.5 10^3/uL (1.2-3.8); Lymphocytes Percent Auto 40.3 % (20.5-60.0); Mean Corpuscular HGB Conc 34.3 g/dL (29.9-35.2); Mean Corpuscular Hemoglobin 29.7 pg (25.9-34.0); Mean Corpuscular Volume 86.6 fL (80.0-94.0); Mean Platelet Volume 9.3 fL (9.5-13.5); Monocytes Absolute Auto 0.5 10^3/uL (0.3-0.8); Monocytes Percent Auto 8.2 % (1.7-12.0); Neutrophils Absolute Auto 2.8 10^3/uL (1.4-6.5); Platelet Count 180 10^3/uL (150-450); Red Blood Count 4.99 10^6/uL (4.70-6.10); White Blood Count 6.2 10^3/uL (4.0-11.0)
[2023-10-19 08:58] LABS: Alanine Aminotransferase 33 U/L (16-63); Albumin Globulin Ratio 1.2; Alkaline Phosphatase 137 U/L (46-116); Anion Gap 9.4; Aspartate Amino Transferase 21 U/L (15-37); BUN Creatinine Ratio 17.7; Bilirubin Total 0.5 mg/dL (0.2-1.0); Calcium 9.3 mg/dL (8.5-10.1); Carbon Dioxide 32.9 mmol/L (21.0-32.0); Chloride 100 mmol/L (98-107); Estimated GFR (African America >60 (>=60); Estimated GFR (Non-African Ame >60 (>=60); Gamma Glutamyl Transpeptidase 43 U/L (15-85); Globulin 3.4 g/dL; Glucose 103 mg/dL (74-106); Magnesium 1.6 mg/dL (1.8-2.4); Phosphorus 3.9 mg/dL (2.6-4.7); Potassium 4.3 mmol/L (3.5-5.1); Sodium 138 mmol/L (136-145); Total Protein 7.4 g/dL (6.4-8.2)
== END 2023-10-22 17:40 | disposition home or self-care (01) ==
LOC: LAB 08:01
DX: K76.9 Liver disease, unspecified (principal); Z48.23 Encounter for aftercare following liver transplant; Z94.4 Liver transplant status; Z41.8 Encounter for other procedures for purposes other than remedying health state; E61.2 Magnesium deficiency; E83.30 Disorder of phosphorus metabolism, unspecified; R73.02 Impaired glucose tolerance (oral)
CPT/HCPCS: 36415; 80053; 82977; 83735; 84100; 85025

== ENCOUNTER 2023-11-03 08:00 | Outpatient (OUT) | payer OTHER, SELFPAY ==
--- OUTSIDE RECORDS SUMMARY | 2023-11-03 08:07 | XMS_ITS | CCD ---
Author Name Unknown Address [address] [place] [address] Organization [facility] Care Team Providers Care Nurse Practitioner Home Assessments Name Role Phone MIKE MCGOWAN Primary Care Physician MISC, DR BULLOCK Attending Unavailable MISC, DR BULLOCK Consulting Unavailable MISC, DR BULLOCK Admitting Unavailable ZIEBER, DR DORI Frias Consulting Unavailable CHINEDU SETHI Primary Care Physician Unavailable Primary Care Provider Unavailabl e Unavailable Primary Care Provider Unavailabl e Unavailable Primary Care Provider Unavailabl e GHAZARIAN, KAUSHAL V Primary Care Physician Ghazarian V, Kaushal Primary Care Provider Teena Gonzalez CNP Unavailable Zuleika RN, Christine Castro Unavailable Unavailable Beeazarian MD Pearce Gohar Primary Care Provider [phone] Frances PEPE Attending Unavailable MAGGY SUAREZ Attending Unavailable SALAM, Frances Admitting Unavailable SALAM, Frances Attending Unavailable CLARISSAAMFrances Referring Unavailable PULLCE HORTENSIA Admitting Unavailable PULLCEHORTENSIA Attending Unavailable WAKIM-WOLFF, TREVA Admitting Unavailabl e WAKIM-WOLFF, TREVA Attending Unavailabl e WAKIM-WOLFF, TREVA Admitting Unavailabl e WAKIM-WOLFF, TREVA Attending Unavailabl e WAKIM-WOLFF, TREVA Attending Unavailabl e WAKIM-WOLFF, TREVA Admitting Unavailabl e Amrik Jeffrey Attending Unavaila ROSE Sloan Attending Unavailable SELMA DECKER Referring Unavailable GHAZARIAN, KAUSHAL Primary Care Unavailable REAY DEANGELO E Referring Unavailable GHAZARIAN, [facility] Primary Care Unavailable TREVA LOERA Attending Unavailabl e ABU ELMAGD, STACY M Referring Unavailable [facility] Primary Care Unavailable JERONIMO, SELMA Admitting Unavailable [facility], [facility] Primary Care Unavailable YOLIS MCKEON Attending Unavailable ABU ELMAGD, STACY M Referring Unavailable LUIS E BROOKS Referring Unavailable LUIS E BROOKS Attending Unavailable [facility] Primary Care Unavailable TREVA LOERA Referring Unavailabl e REAY, DEANGELO Gonzaelz Attending Unavailable [facility] Primary Care Unavailable AMANDA VILLARREAL Referring Unavailable ALLI LR, MELLY Referring Unavailabl e GEE MAXWELL Attending Unavailable GEE MAXWELL Admitting Unavailable JERONIMO, SELMA Referring Unavailable [facility] Primary Care Unavailable JERONIMO, SELMA Referring Unavailable JERONIMO, SELMA Attending Unavailable [facility] Primary Care Unavailable TREVA LOERA Referring Unavailabl e [facility], [facility] Primary Care Unavailable [facility], [facility] Primary Care Unavailable LUIS E BROOKS Attending Unavailable ROSE SAUCEDO Referring Unavailable [facility] Primary Care Unavailable SALAM, DANIELS Referring Unavailable SALAM, DANIELS Referring Unavailable TREVA LOERA Referring Unavailabl e [facility] Primary Care Unavailable [facility] Primary Care Unavailable AMANDA VILLARREAL Attending Unavailable Allergies Allergy Classification Reported Allergen(s) Allergy Type Date of Onset Reaction(s) Facility (20 sources) Penicillins; Translations: [penicillins] Drug allergy (disorder) 5 unknown [facility] Repository (20 sources) Penicillins Drug Allergy 5 Unknown [facility] (1 source) No Known Medication Allergies; Translations: [No Known Medication Allergies] Propensity to adverse reactions (disorder) [facility] Repository Medications Current Medications Medication Drug Class(es) Dates Sig (Normalized) Sig (Original) aspirin 81 mg oral tablet (14 sources) Platelet Aggregation Inhibitor, Nonsteroidal Anti-inflammatory Drug Start: 05-28-2023 Aspirin Low Dose 81 mg oral enteric coated tablet Refills(s) 0 Start Date: 05/28/23 Status: Ordered Start: 04-30-2023 take 1 tablet by paeg th once daily aspirin, enteric coated (ECOTRIN LOW STRENGTH) 81 mg EC tablet Take 1 tablet by mouth once daily. 30 tablet 11 04/30/2023 Active Comment on above: Take 1 tablet by [facility] once daily. BMX Solution (16 sources) Start: [...] Bedtime, # 14 tab(s), Refills(s) 0, Pharmacy: [facility]/pharmacy #[id number], 193, cm, 03/20/22 16:13:00 EDT, Height/Length Dosing, 103, kg, 03/20/22 16:13:00 EDT, Weight Dosing Start Date: 04/03/22 Status: Ordered Comment on above: Take 5 mg by mouth. Take 5 mg by mouth t wice daily as needed. fluticasone (20 sources) Corticosteroid Start: fluticasone Top 0.05% Crm 30 gram 1 oly, Topical, BID, 60 gm, Refill(s) 1, [facility]/pharmacy #[id number], 193, cm, 03/20/22 16:13:00 EDT, Height/Length Dosing, 103, kg, 03/20/22 16:13:00 EDT, Weight Dosing Start Date: 03/20/22 Status: Ordered Start: 03-20-2022 fluticasone To p 0.05% Crm 30 gram 1 oly, Topical, BID, 60 gm, Refill(s) 1, [facility]/pharmacy #[id number], 193, cm, 03/20/22 16:13:00 EDT, Height/Length [...] Daily, # 30 EA, Refills(s) 0, Pharmacy: [facility]/pharmacy #[id number], 193, cm, 03/20/22 16:13:00 EDT, Height/Length Dosing, 103, kg, 03/20/22 16:13:00 EDT, Weight Dosing Start Date: 03/27/22 Status: Ordered methylPREDNISolone 4 mg oral tablet (1 source) Corticosteroid Start: 2021 End: 2021 Medrol Dosepack 4 mg Tab = 1 packet(s), Oral, As Directed, as directed on package labeling, X 6 day(s), # 21 tab(s), Refills(s) 0, Pharmacy: [facility]/pharmacy #[id number], 193, cm, 03/20/22 16:13:00 EDT, Height/Length Dosing, 103, kg, 03/20/22 16:13:00 EDT, Weight Dosing Start Date: 03/20/22 Stop Date: 03/26/22 Status: Ordered nystatin 005891 unt/ml oral suspension (8 sources) Polyene Antifungal [...] QID for wheezing, 18 gram, Refill(s) 0, [facility]/pharmacy #[id number], 193, cm, 03/20/22 16:13:00 EDT, Height/Length Dosing, 103, kg, 03/20/22 16:13:00 EDT, Weight Dosing Start Date: 03/28/22 Status: Ordered Vitamin B12 1000 mcg Tab (17 sources) Start: 04-24-2022 take 1 tablet by mouth once daily Vitamin B12 1000 mcg Tab 1,000 mcg = 1 tab(s), Oral, Daily, # 100 tab(s), Refills(s) 1, Pharmacy: [facility]/pharmacy #[id number], 193, cm, 04/24/22 13:13:00 EDT, Height/Length [...] twice daily. Take 1 tablet by page th twice daily with meals. docusate sodium 100 mg oral capsule (20 sources) Start: 04-13-20 take 1 capsule by mouth twice daily docusate sodium (COLACE) 100 mg capsule Take 1 capsule by mouth twice daily. 60 capsule 1 04/13/2023 Active Comment on above: Take 1 capsule by mo [facility] twice daily. fludrocortisone acetate 0.1 mg oral tablet (18 sources) Start: 04-15-20 End: 11-14-20 23 take 1 tablet by mouth once daily [...] Daily, # 30 tab(s), Refills(s) 0, Pharmacy: [facility]/pharmacy #[id number], 193, cm, 03/20/22 16:13:00 EDT, Height/Length [...] on above: Take 1 capsule by mo [facility] three times daily for 60 days. Take 1 capsule by mo [facility] twice daily for 30 days. Working on lowering dose -bid for one week and then lower to daily and then stop hydrALAZINE hydrochloride 25 mg oral tablet (10 sources) Arteriolar Vasodilator Start: End: take 1 tablet by mouth every [...] on above: Take 2 tablets by mo [facility] twice daily. Separate from Cellcept by 2 [...] 20 mEq by mouth once daily. sennosides, penitentiary 8.6 mg oral tablet (8 sources) Start: [...] Comment on above: Take 1 tablet by apge th three times daily. spironolactone 100 mg oral tablet (20 sources) Aldosterone Antagonist Start: 04-02-20 take 1 tablet by mouth once daily spironolactone (ALDACTONE) 100 mg tablet Take 100 mg by mouth once daily. 0 04/02/2022 Suspended Start: 03-28-2022 take 1 tablet by page th once daily spironolactone 25 mg Tab 25 mg = 1 tab(s), Oral, Daily, # 30 tab(s), Refills(s) 0, Pharmacy: [facility]/pharmacy #[id number], 193, cm, 03/20/22 16:13:00 EDT, Height/Length [...] on above: Take 1,000 mcg by mo [facility] once daily. Problems Active Problems Problem Classification [...] 11-27-2022 Episodic Other aftercare (1 source) Other half-way (current) drug therapy; Translations: [Immunosuppressive management encounter [...] CYTOMEGALOVIRUS (CMV) DNA, Q UANTITATIVE PCR, PLASMAon 09-28-2023 CMV DNA DEVYN+probe Qn (P) Not detected Normal Not Detected [facility] Comment on above: Order Comment: Rasta kennedy Type: BLOOD SPECIMENOrdering Facility: [facility] Address: , , Performed By: #### C MVQNT ####[facility] LABCLIA [id number] [place] [address] [place] Patient Logson 09-28-2023 Patient Logs [id number]#[id number] Normal [facility] Tacrolimus Bld-mCncon 2023 Tacrolimus (Bld) [Mass/Vol] 7.9 ng/mL Normal 5.0-20.0 [facility] Comment on above: Order Comment: Rasta [...] Alinity i. Performed By: #### 1 1253-2 ####[facility] LABCLIA [id number] [place] [address] [place] CYTOMEGALOVIRUS (CMV) DNA, Q UANTITATIVE PCR, PLASMAon 09-16-2023 CMV DNA DEVYN+probe Qn (P) Not detected Normal Not Detected [facility] Comment on above: Order Comment: Rasta kennedy Type: BLOOD SPECIMENOrdering Facility: [facility] Address: , , Performed By: #### C MVQNT ####[facility] LABIA [id number] [address] [place] Tacrolimus Bld-mCncon 2023 Tacrolimus (Bld) [Mass/Vol] 5.1 ng/mL Normal 5.0-20.0 [facility] Comment on above: Order Comment: Rasta [...] Alinity i. Performed By: #### 1 1253-2 ####[facility] LABCLIA [id number] [place] [address] [place] Lab Reportson 09-15-2023 Lab Reports [id number]#1.00TIFF Normal [facility] Patient Educationon 09-15-19 Patient Education Gastroenterology Abdominal [...] candy. ? Chewing gum. Medicines ? Take jmnk-pbo-lesaqnc and prescription medicines only as told by [...] provider. Document Revised: 03/12/2021 Document Reviewed: 03/12/2021 [employer] [place] Patient Education ? 2022 [employer]. Normal [facility] Urology Office/Clinic Noteon 09-15-2023 Urology Office/Clinic Note Chief Complaint New Pt *Incomplete Bladder Emptying HPI Staff New pt, Never before seen in our office. Here today due to feeling like he is not emptying his bladder. S/P Liver Transplant 04/04/23 @ [facility]. Still feels bloated in lower abdomen. States [...] this seems unnecessary at this point. Ordered: [id number] Measure Post Void residual urine and/or bladder capacity by US- non-imaging Urnls Dip Stick Auto w/o Microscopy POC 99042 2. Weak urinary stream (R39.12: Poor urinary stream) see #1. 3. Alcoholic cirrhosis (K70.30: Alcoholic cirrhosis of liver without ascites) S/p liver transplant 04/04/23 @ [facility]. Follow-up With When Contact Information AARON DINH, MAGGY Gonzalez, URL [address] [place] [address] Additional Instructions: Follow up pending voiding diary Patient Education Abdominal Bloating Total time spent reviewing previous notes/results/external documents, preparing the chart, conducting the encounter with the patient and family, ordering tests/medications, and documenting the encounter was 30 minutes. Documentation recorded by the scribe Rita Villagomez accurately reflects the services(s) I performed and decisions made by me. Authenticated by Maggy Suarez PA-C on 09/15/2023 18:10:18. IRiat, personally scribed for Maggy Suarez PA-C on [...] more cigaret (more content not included)... Normal [facility] Comment on above: Result Comment: Elec tronically Signed By: MAGGY SUAREZ PA-C\.br\Date and Time Signed: 09/15/23 18:11 EST\.br\Electronically Co-Signed By: Rita Villagomez\.br\Date and Time Co-Signed: 09/15/23 14:15 EST PHOSPHATIDYLETHANOL (PETH)on 08-25-2023 EER PETH See Note Normal [facility] Comment on above: Order Comment: Speci men Type: BLOOD SPECIMENOrdering Facility: [facility] Address: , , Result Comment: Auth orized individuals can access the [facility] Report using the following link:[email or web address] Performed By: #### P ETH ####[facility] [id number] [place] [address] PETH 16:0/18.2 (PLPETH) <10 Normal [facility] Comment on above: Order Comment: Speci men Type: BLOOD SPECIMENOrdering Facility: [facility] Address: , , Result Comment: Refe rence ranges are not well established. Performed By: #### P ETH ####[facility] [id number] [place] [address] PETH 16:0/18:1 (POPETH) <10 Normal [facility] Comment on above: Order Comment: Speci men Type: BLOOD SPECIMENOrdering Facility: [facility] Address: , , Result Comment: PEth 16:0/18:1 (POPEth)Less than 10 ng/mL............Not detectedLess than 20 ng/mL............Abstinence or light ocxwggewvcavdadxyu77 - 200 ng/mL................Moderate alcohol consumptionGreater than 200 ng/mL........Heavy alcohol consumption or chronicalcohol use(Reference: Jessica Pulliam and Anup Dee 2018 J. Forensic Sci) Performed By: #### P ETH ####[facility] [id number] [place] [address] PETH INTERPRETATION See Note Normal [facility] Comment on above: Order Comment: Speci [...] was developed and its performance characteristicsdetermined by [facility]. It has not been cleared orapproved by the U.S. Food and Drug Administration. This test wasperformed in a CLIA-certified laboratory and is intended forclinical purposes.Performed By: [facility] [place] [id number] Director: Audi Bundy MD, PhDCLIA Number: [id number] Performed By: #### P ETH ####[facility] [id number] [place] [address] CYTOMEGALOVIRUS (CMV) DNA, Q UANTITATIVE PCR, [facility] CMV DNA DEVYN+probe Qn (P) Not detected Normal Not Detected [facility] Comment on above: Order Comment: Specсергей kennedy Type: BLOOD SPECIMENOrdering Facility: [facility] Address: , , Performed By: #### C MVQNT ####[facility] LABCLIA [id number] [place] [address] [place] Tacrolimus Bld-ncon 2022 Tacrolimus (Bld) [Mass/Vol] 6.0 ng/mL Normal 5.0-20.0 [facility] Comment on above: Order Comment: Rasta [...] situation. Test performed by chemiluminescent immunoassay using [employer] Alinity i. Performed By: #### 1 1253-2 ####[facility] LABCLIA [id number] [place] [address] [place] CYTOMEGALOVIRUS (CMV) DNA, Q UANTITATIVE PCR, PLASMAon 07-27-2023 CMV DNA DEVYN+probe Qn (P) Not detected Normal Not Detected [facility] Comment on above: Order Comment: Rasta kennedy Type: BLOOD SPECIMENOrdering Facility: [facility] Address: , , Performed By: #### C MVQNT ####[facility] LABCLIA [id number] [place] [address] [place] Tacrolimus Bld-mCncon 2022 Tacrolimus (Bld) [Mass/Vol] 6.5 ng/mL Normal 5.0-20.0 [facility] Comment on above: Order Comment: Rasta [...] Alinity i. Performed By: #### 1 1253-2 ####[facility] LABCLIA [id number] [place] [address] [place] CYTOMEGALOVIRUS (CMV) DNA, Q UANTITATIVE PCR, PLASMAon 07-20-2023 CMV DNA DEVYN+probe (P) [Log units/Vol] <1.54 Normal [facility] Comment on above: Order Comment: Rasta kennedy Type: BLOOD SPECIMENOrdering Facility: [facility] Address: , , Performed By: #### C MVQNT ####[facility] LABCLIA [id number] [address] [id number] CMV DNA DEVYN+probe Qn (P) Detected Abnormal Not Detected [facility] Comment on above: Order Comment: Rasta kennedy Type: BLOOD SPECIMENOrdering Facility: [facility] Address: , , Performed By: #### C MVQNT ####[facility] LABCLIA [id number] [address] [place] CMV DNA NUMERIC <35 Normal [facility] Comment on above: Order Comment: Rasta kennedy Type: BLOOD SPECIMENOrdering Facility: [facility] Address: , , Performed By: #### C MVQNT ####[facility] LABCLIA [id number] [address] [place] Tacrolimus Bld-ncon 2022 Tacrolimus (Bld) [Mass/Vol] 8.8 ng/mL Normal 5.0-20.0 [facility] Comment on above: Order Comment: Rasta [...] Alinity i. Performed By: #### 1 1253-2 ####[facility] LABCLIA [id number] [place] [address] [place] [facility] [place] CYTOMEGALOVIRUS (CMV) DNA, Q UANTITATIVE PCR, PLASMAon 07-13-2023 CMV DNA DEVYN+probe Qn (P) Not detected Normal Not Detected [facility] Comment on above: Order Comment: Rasta kennedy Type: BLOOD SPECIMENOrdering Facility: [facility] Address: , , Performed By: #### C MVQNT ####[facility] LABCLIA [id number] [place] [address] [place] Tacrolimus Bld-mCncon 2022 Tacrolimus (Bld) [Mass/Vol] 7.8 ng/mL Normal 5.0-20.0 [facility] Comment on above: Order Comment: Rasta [...] situation. Test performed by chemiluminescent immunoassay using [employer] i. Performed By: #### 1 1253-2 ####[facility] LABCLIA [id number] [place] [address] [place] CYTOMEGALOVIRUS (CMV) DNA, Q UANTITATIVE PCR, PLASMAon 07-06-2023 CMV DNA DEVYN+probe Qn (P) Not detected Normal Not Detected [facility] Comment on above: Order Comment: Rasta kennedy Type: BLOOD SPECIMENOrdering Facility: [facility] Address: , , Performed By: #### C MVQNT ####[facility] LABCLIA [id number] [place] [address] [place] Tacrolimus Bld-ncon 2022 Tacrolimus (Bld) [Mass/Vol] 8.1 ng/mL Normal 5.0-20.0 [facility] Comment on above: Order Comment: Rasta [...] Alinity i. Performed By: #### 1 1253-2 ####[facility] LABCLIA [id number] [address] OF [facility] CYTOMEGALOVIRUS (CMV) DNA, Q UANTITATIVE PCR, PLASMAon 06-29-2023 CMV DNA DEVYN+probe Qn (P) Not detected Normal Not Detected [facility] Comment on above: Order Comment: Rasta kennedy Type: BLOOD SPECIMENOrdering Facility: [facility] Address: , , Performed By: #### C MVQNT ####[facility] LABCLIA [id number] [address] [place] Tacrolimus Bld-mCncon 2022 Tacrolimus (Bld) [Mass/Vol] 12.8 ng/mL Normal 5.0-20.0 [facility] Comment on above: Order Comment: Rasta [...] Alinity i. Performed By: #### 1 1253-2 ####[facility] LABCLIA [id number] [place] [address] [place] CYTOMEGALOVIRUS (CMV) DNA, Q UANTITATIVE PCR, PLASMAon 06-25-2023 CMV DNA DEVYN+probe (P) [Log units/Vol] <1.54 Normal [facility] Comment on above: Order Comment: Rasta kennedy Type: BLOOD SPECIMENOrdering Facility: [facility] Address: , , Performed By: #### C MVQNT ####[facility] LABCLIA [id number] [address] [place] CMV DNA DEVYN+probe Qn (P) Detected Abnormal Not Detected [facility] Comment on above: Order Comment: Rasta kennedy Type: BLOOD SPECIMENOrdering Facility: [facility] Address: , , Performed By: #### C MVQNT ####[facility] LABCLIA [id number] [address] CMV DNA NUMERIC <35 Normal [facility] Comment on above: Order Comment: Rasta kennedy Type: BLOOD SPECIMENOrdering Facility: [facility] Address: , , Performed By: #### C MVQNT ####[facility] LABIA [id number] [address] [place] Tacrolimus Bld-mCncon 2022 Tacrolimus (Bld) [Mass/Vol] 9.3 ng/mL Normal 5.0-20.0 [facility] Comment on above: Order Comment: Rasta [...] Alinity i. Performed By: #### 1 1253-2 ####[facility] LABCLIA [id number] [place] [address] [place] Physician Orderon 06-24-2023 Physician Order [id number]#1.00TIFF Normal [facility] CYTOMEGALOVIRUS (CMV) DNA, Q UANTITATIVE PCR, PLASMAon 06-22-2023 CMV DNA DEVYN+probe (P) [Log units/Vol] <1.54 Normal [facility] Comment on above: Order Comment: Rasta kennedy Type: BLOOD SPECIMENOrdering Facility: [facility] Address: , , Performed By: #### C MVQNT ####[facility] LABCLIA [id number] [place] [address] [place] CMV DNA DEVYN+probe Qn (P) Detected Abnormal Not Detected [facility] Comment on above: Order Comment: Rasta kennedy Type: BLOOD SPECIMENOrdering Facility: [facility] Address: , , Performed By: #### C MVQNT ####[facility] LABCLIA [id number] [place] [address] [place] CMV DNA NUMERIC <35 Normal [facility] Comment on above: Order Comment: Rasta kennedy Type: BLOOD SPECIMENOrdering Facility: [facility] Address: , , Performed By: #### C MVQNT ####[facility] LABCLIA [id number] [place] [address] [place] Tacrolimus d-[facility] 2022 Tacrolimus (Bld) [Mass/Vol] 9.1 ng/mL Normal 5.0-20.0 [facility] Comment on above: Order Comment: Rasta [...] situation. Test performed by chemiluminescent immunoassay using [employer] i. Performed By: #### 1 1253-2 ####[facility] LABCLIA [id number] [place] [address] [place] CYTOMEGALOVIRUS (CMV) DNA, Q UANTITATIVE PCR, PLASMAon 06-18-2023 CMV DNA DEVYN+probe (P) [Log units/Vol] 1.57 log IU/mL Normal [facility] Comment on above: Order Comment: Rasta kennedy Type: BLOOD SPECIMENOrdering Facility: [facility] Address: , , Performed By: #### C MVQNT ####[facility] LABCLIA [id number] [place] [address] [place] CMV DNA DEVYN+probe Qn (P) Detected Abnormal Not Detected [facility] Comment on above: Order Comment: Rasta kennedy Type: BLOOD SPECIMENOrdering Facility: [facility] Address: , , Performed By: #### C MVQNT ####[facility] LABCLIA [id number] [place] [address] [place] CMV DNA NUMERIC 37 IU/mL High [facility] Comment on above: Order Comment: Rasta kennedy Type: BLOOD SPECIMENOrdering Facility: [facility] Address: , , Performed By: #### C MVQNT ####[facility] LABCLIA [id number] [place] [address] [place] Tacrolimus Bld-[facility] 2022 Tacrolimus (Bld) [Mass/Vol] 9.7 ng/mL Normal 5.0-20.0 [facility] Comment on above: Order Comment: Rasta [...] situation. Test performed by chemiluminescent immunoassay using [employer] i. Performed By: #### 1 1253-2 ####[facility] LABCLIA [id number] [place] [address] [place] CYTOMEGALOVIRUS (CMV) DNA, Q UANTITATIVE PCR, PLASMAon 06-15-2023 CMV DNA DEVYN+probe Qn (P) Not detected Normal Not Detected [facility] Comment on above: Order Comment: Rasta kennedy Type: BLOOD SPECIMENOrdering Facility: [facility] Address: , , Performed By: #### C MVQNT ####[facility] LABCLIA [id number] [place] [address] [place] Tacrolimus Bld-mCncon 2022 Tacrolimus (Bld) [Mass/Vol] 10.9 ng/mL Normal 5.0-20.0 [facility] Comment on above: Order Comment: Rasta [...] Alinity i. Performed By: #### 1 1253-2 ####[facility] LABCLIA [id number] [place] [address] [place] CYTOMEGALOVIRUS (CMV) DNA, Q UANTITATIVE PCR, PLASMAon 06-11-2023 CMV DNA DEVYN+probe Qn (P) Not detected Normal Not Detected [facility] Comment on above: Order Comment: Rasta kennedy Type: BLOOD SPECIMENOrdering Facility: Post [facility] Address: , , Performed By: #### C MVQNT ####[facility] LABCLIA [id number] [place] [address] [place] PHOSPHATIDYLETHANOL (PETH)on 06-11-2023 EER PETH See Note Normal [facility] Comment on above: Order Comment: Rasta kennedy Type: BLOOD SPECIMENOrdering Facility: [facility] Address: , , Result Comment: Auth orized individuals can access the ARUPEnhanced Report using the following link:[email or web address] By: KORTNEY [email or web address] [place], [place] [address]Bawrxegfna Director: Audi Bundy MD, PhDCLIA Number: [id number] Performed By: #### P ETH ####[facility] [id number] [place] [address] PETH 16:0/18.2 (PLPETH) <10 Normal [facility] Comment on above: Order Comment: Speci men Type: BLOOD SPECIMENOrdering Facility: [facility] Address: , , Performed By: #### P ETH ####[facility] [id number] [place] [address] PETH 16:0/18:1 (POPETH) <10 Normal [facility] Comment on above: Order Comment: Speci men Type: BLOOD SPECIMENOrdering Facility: [facility] Address: , , Result Comment: INTE RPRETIVE INFORMATION:Phosphatidylethanol (PEth), Whole BloodPhosphatidylethanol (PEth) homologues Result InterpretationPEth 16:0/18:1 (POPEth)Less than 10 ng/mL............Not detectedLess than 20 ng/mL............Abstinence or light alcohol okiyhlyycbk29 - 200 ng/mL................Moderate alcohol consumptionGreater than 200 [...] was developed and its performance characteristicsdetermined by [employer]. It has not been cleared orapproved by the U.S. Food and Drug Administration. This test wasperformed in a CLIA-certified laboratory and is intended forclinical purposes. Performed By: #### P ETH ####[facility]IESCLIA [id number] [place] [address] Tacrolimus Bld-mCncon 2022 Tacrolimus (Bld) [Mass/Vol] 8.3 ng/mL Normal 5.0-20.0 [facility] Comment on above: Order Comment: Speci [...] Alinity i. Performed By: #### 1 1253-2 ####[facility] LABCLIA [id number] [place] [address] [place] CYTOMEGALOVIRUS (CMV) DNA, Q UANTITATIVE PCR, PLASMAon 06-08-2023 CMV DNA DEVYN+probe (P) [Log units/Vol] <1.54 Normal [facility] Comment on above: Order Comment: Rasta kennedy Type: BLOOD SPECIMENOrdering Facility: [facility] Address: , , Performed By: #### C MVQNT ####[facility] LABCLIA [id number] [place] [address] [place] CMV DNA DEVYN+probe Qn (P) Detected Abnormal Not Detected [facility] Comment on above: Order Comment: Rasta kennedy Type: BLOOD SPECIMENOrdering Facility: [facility] Address: , , Performed By: #### C MVQNT ####[facility] LABCLIA [id number] [place] [address] [place] CMV DNA NUMERIC <35 Normal [facility] Comment on above: Order Comment: Rasta kennedy Type: BLOOD SPECIMENOrdering Facility: [facility] Address: , , Performed By: #### C MVQNT ####[facility] LABCLIA [id number] [place] [address] [place] Tacrolimus Bld-[facility] 2022 Tacrolimus (Bld) [Mass/Vol] 7.2 ng/mL Normal 5.0-20.0 [facility] Comment on above: Order Comment: Ratsa kennedy Type: BLOOD SPECIMENOrdering Facility: [facility] [...] situation. Test performed by chemiluminescent immunoassay using [employer] Alinity i. Performed By: #### 1 1253-2 ####[facility] LABCLIA [id number] [place] [address] [place] CYTOMEGALOVIRUS (CMV) DNA, Q UANTITATIVE PCR, PLASMAon 06-04-2023 CMV DNA DEVYN+probe Qn (P) Not detected Normal Not Detected [facility] Comment on above: Order Comment: Rasta kennedy Type: BLOOD SPECIMENOrdering Facility: [facility] Address: , , Performed By: #### C MVQNT ####[facility] LABCLIA [id number] [place] [address] [place] Tacrolimus Bld-mCncon 2022 Tacrolimus (Bld) [Mass/Vol] 4.2 ng/mL Low 5.0-20.0 [facility] Comment on above: Order Comment: Rasta [...] situation. Test performed by chemiluminescent immunoassay using [employer] Alinity i. Performed By: #### 1 1253-2 ####[facility] LABCLIA [id number] [place] [address] [place] CYTOMEGALOVIRUS (CMV) DNA, Q UANTITATIVE PCR, PLASMAon 06-01-2023 CMV DNA DEVYN+probe Qn (P) Not detected Normal Not Detected [facility] Comment on above: Order Comment: Rasta kennedy Type: BLOOD SPECIMENOrdering Facility: [facility] Address: , , Performed By: #### C MVQNT ####[facility] LABIA [id number] [place] [address] [place] Comprehensive metabolic 2000 panelon 06-01-2023 Albumin [Mass/Vol] 4.6 g/dL Normal 3.9-4.9 [facility] [place] Comment on above: Order Comment: Rasta kennedy Type: BLOOD SPECIMENOrdering Facility: [facility] Address: [address] [place] [address] Performed By: #### 2 4743-8 ####[facility] LABCLIA [id number] [place] [address] ALP [Catalytic activity/Vol] 92 U/L Normal 38-113 [facility] Comment on above: Order Comment: Speci men Type: BLOOD SPECIMENOrdering Facility: [facility] Address: [address] [place] [address] Performed By: #### 2 4323-8 ####[facility] LABCLIA [id number] [place] [address] ALT [Catalytic activity/Vol] 15 U/L Normal 10-54 [facility] Comment on above: Order Comment: Speci men Type: BLOOD SPECIMENOrdering Facility: [facility] Address: [address] [place] [address] Performed By: #### 2 4323-8 ####[facility] LABCLIA [id number] [place] [address] Anion gap [Moles/Vol] 10 mmol/L Normal 9-18 [facility] Comment on above: Order Comment: Speci men Type: BLOOD SPECIMENOrdering Facility: [facility] Address: [address] [place] [address] Performed By: #### 2 4323-8 ####[facility] LABCLIA [id number] [place] [address] AST [Catalytic activity/Vol] 18 U/L Normal 14-40 [facility] Comment on above: Order Comment: Speci men Type: BLOOD SPECIMENOrdering Facility: [facility] Address: [address] [place] [address] Performed By: #### 2 4323-8 ####[facility] LABCLIA [id number] [place] [address] Bilirubin [Mass/Vol] 0.6 mg/dL Normal 0.2-1.3 [facility] Comment on above: Order Comment: Speci men Type: BLOOD SPECIMENOrdering Facility: [facility] Address: [address] [place] [address] Performed By: #### 2 4323-8 ####[facility] LABCLIA [id number] [place] [address] Calcium [Mass/Vol] 10.2 mg/dL Normal 8.5-10.2 [facility] [place] Comment on above: Order Comment: Speci men Type: BLOOD SPECIMENOrdering Facility: [facility] Address: [address] [place] [address] Performed By: #### 2 4323-8 ####[facility] LABCLIA [id number] [place] [address] Chloride [Moles/Vol] 102 mmol/L Normal 97-105 [facility] Comment on above: Order Comment: Speci men Type: BLOOD SPECIMENOrdering Facility: [facility] Address: [address] [place] [address] Performed By: #### 2 4323-8 ####[facility] LABCLIA [id number] [place] [address] CO2 [Moles/Vol] 28 mmol/L Normal 22-30 [facility] Comment on above: Order Comment: Speci men Type: BLOOD SPECIMENOrdering Facility: [facility] Address: [address] [place] [address] Performed By: #### 2 4323-8 ####[facility] LABCLIA [id number] [place] [address] Creatinine [Mass/Vol] 1.00 mg/dL Normal 0.73-1.22 [facility] Comment on above: Order Comment: Speci men Type: BLOOD SPECIMENOrdering Facility: [facility] Address: [address] [place] [address] Performed By: #### 2 4323-8 ####[facility] LABCLIA [id number] [place] [address] Creatinine and Glomerular filtration rate.predicted panel (S/P/Bld) 96 mL/min/1.73m??? Normal >=60 [facility] Comment on above: Order Comment: Rasta kennedy Type: BLOOD SPECIMENOrdering Facility: [facility] Address: [place] [address] Result Comment: Karma mated Glomerular Filtration Rate [...] actual GFR. Performed By: #### 2 4323-8 ####[facility] LABCLIA [id number] [place] [address] Glucose [Mass/Vol] 114 mg/dL High 74-99 [facility] [place] Comment on above: Order Comment: Rasta kennedy Type: BLOOD SPECIMENOrdering Facility: [facility] Address: [place] [address] Result Comment: The [place] [employer] Association (ADA) provides guidance for cutoff [...] Standards of Medical Care in Diabetes 2016, [place] [employer]. Diabetes Care. 2016.39(Suppl 1). Performed By: #### 2 4323-8 ####[facility] LABCLIA [id number] [place] [address] Potassium [Moles/Vol] 5.0 mmol/L Normal 3.7-5.1 [facility] Comment on above: Order Comment: Rasta kennedy Type: BLOOD SPECIMENOrdering Facility: [facility] Address: [address] [address] Performed By: #### 2 4323-8 ####[facility] LABCLIA [id number] [place] [address] Protein [Mass/Vol] 6.4 g/dL Normal 6.3-8.0 [facility] [place] Comment on above: Order Comment: Speci men Type: BLOOD SPECIMENOrdering Facility: [facility] Address: [address] [place] [address] Performed By: #### 2 4323-8 ####[facility] LABCLIA [id number] [place] [address] Sodium [Moles/Vol] 140 mmol/L Normal 136-144 [facility] [place] Comment on above: Order Comment: Speci men Type: BLOOD SPECIMENOrdering Facility: [facility] Address: [address] [place] [address] Performed By: #### 2 4323-8 ####[facility] LABCLIA [id number] [place] [address] Urea nitrogen [Mass/Vol] 16 mg/dL Normal 9-24 [facility] Comment on above: Order Comment: Speci men Type: BLOOD SPECIMENOrdering Facility: [facility] Address: [address] [place] [address] Performed By: #### 2 4323-8 ####[facility] LABCLIA [id number] [place] [address] Albumin [Mass/Vol] 4.6 g/dL 3.9 - 4.9 g/dL [facility] ALP [Catalytic activity/Vol] 92 U/L 38 - 113 U/L [facility] ALT [Catalytic activity/Vol] 15 U/L 10 - 54 U/L [facility] Anion gap [Moles/Vol] 10 mmol/L 9 - 18 mmol/L [facility] AST [Catalytic activity/Vol] 18 U/L 14 - 40 U/L [facility] Bilirubin [Mass/Vol] 0.6 mg/dL 0.2 - 1 .3 mg/dL [facility] Calcium [Mass/Vol] 10.2 mg/dL 8.5 - 10. 2 mg/dL [facility] Chloride [Moles/Vol] 102 mmol/L 97 - 10 5 mmol/L [facility] CO2 [Moles/Vol] 28 mmol/L 22 - 30 mmol/L [facility] Creatinine [Mass/Vol] 1.00 mg/dL 0.73 - 1.22 mg/dL [facility] Estimated Glomerular Filtration Rate 96 mL/min/1.73m >=60 mL/min/1.73m [facility] Glucose [Mass/Vol] 114 mg/dL High 74 - 99 mg/dL [facility] Potassium [Moles/Vol] 5.0 mmol/L 3.7 - 5.1 mmol/L [facility] Protein [Mass/Vol] 6.4 g/dL 6.3 - 8.0 g/dL [facility] Sodium [Moles/Vol] 140 mmol/L 136 - 144 mmol/L [facility] Urea nitrogen [Mass/Vol] 16 mg/dL 9 - 24 mg/dL [facility] NT PRO BNPon 06-01-2023 Natriuretic peptide.B prohormone N-Terminal [Mass/Vol] 486 pg/mL High <125 pg/mL [facility] NT-proBNP SerPl-ncon 06-01 Natriuretic peptide.B prohormone N-Terminal [Mass/Vol] 486 pg/mL High <125 [facility] Comment on above: Order Comment: Rasta kennedy Type: BLOOD SPECIMENOrdering Facility: [facility] Address: [address] [place] [address] Performed By: #### 3 3762-6 ####[facility] LABCLIA [id number] [place] [address] [place] Tacrolimus Bld-mCncon 2022 Tacrolimus (Bld) [Mass/Vol] 5.8 ng/mL Normal 5.0-20.0 [facility] Comment on above: Order Comment: Rasta [...] Alinity i. Performed By: #### 1 1253-2 ####[facility] LABCLIA [id number] [place] [address] [place] CNPNon 05-29-2023 CNPN Normal [facility] Ambulatory Visit Summaryon 1 Ambulatory Visit Summary KATHY HAYNES :1980 Visit Date:05/28/2023 Ambulatory Visit Instructions Your [...] leg edema Vitamin B 12 deficiency Normal [facility] Medicine Office/Clini c Noteon 05-28-2023 Gastroenterology Office/Clinic [...] step 1 diuretics. He was sent to [facility] for liver transplant evaluation. The patient [...] annually.4The patient is currently being evaluated at [facility] for potential listing.This [...] patient or guardian consented to allow Arline Robison to record this visit. GORDY multi media specialist and provider reviewed before signing. GORDY: Maxwel Quiros. Follow-up No qualifying data available Problem [...] 3 refills (more content not included)... Normal [facility] Comment on above: Result Comment: Elec tronically Signed By: Deangelo Sampson I\.br\Date and Time Signed: 05/28/23 08:21 EDT Gastroenterology [...] The patient is currently being evaluated at [facility] for potential listing.This [...] SIGNIFICANT CHANGE. Fibroscan: Liver Biopsy 04/04/2023: A. [place] liver and gallbladder, total hepatectomy and cholecystectomy: [...] The portal tracts and fibrous septa contain adeh-qr-zfkqattm lymphocyte-predominant inflammatory infiltrate and minimal interface activity. Foci of bile ductular reaction are present, but the [place] bile ducts are intact. There is no [...] or inflammation. The portal areas contain intact [place] bile ducts and vasculature, and iwydfy-vr-crcwevl lymphocytic inflammation. Neutrophilic inflammation in the portal [...] History of Present Illness s/p OLT March cadaver doner Doing well issues On IS, follows [...] vitamins) F (more content not included)... Normal [facility] Comment on above: Result Comment: Elec tronically Signed By: Rachele EUGENE, Amrik Mcgowan\.br\Date and Time Signed: 05/28/23 15:27 EDT CYTOMEGALOVIRUS (CMV) DNA, Q UANTITATIVE PCR, PLASMAon 05-27-2023 CMV DNA DEVYN+probe Qn (P) Not detected Normal Not Detected [facility] Comment on above: Order Comment: Rasta kennedy Type: BLOOD SPECIMENOrdering Facility: [facility] Address: , , Performed By: #### C MVQNT ####[facility] LABCLIA [id number] [place] [address] [place] Tacrolimus Bld-mCncon 2022 Tacrolimus (Bld) [Mass/Vol] 19.4 ng/mL Normal 5.0-20.0 [facility] Comment on above: Order Comment: Rasta [...] situation. Test performed by chemiluminescent immunoassay using [employer] Alinity i. Performed By: #### 1 1253-2 ####[facility] LABCLIA [id number] [place] [address] [place] CYTOMEGALOVIRUS (CMV) DNA, Q UANTITATIVE PCR, PLASMAon 05-25-2023 CMV DNA DEVYN+probe Qn (P) Not detected Normal Not Detected [facility] Comment on above: Order Comment: Rasta kennedy Type: BLOOD SPECIMENOrdering Facility: [facility] Address: , , Performed By: #### C MVQNT ####[facility] LABIA [id number] [place] [address] [place] Tacrolimus Bld-mCncon 2022 Tacrolimus (Bld) [Mass/Vol] 10.6 ng/mL Normal 5.0-20.0 [facility] Comment on above: Order Comment: Rasta [...] Alinity i. Performed By: #### 1 1253-2 ####[facility] LABCLIA [id number] [place] [address] [place] CNOVon 05-22-2023 CNOV Normal [facility] CNOV Normal [facility] CYTOMEGALOVIRUS (CMV) DNA, Q UANTITATIVE PCR, PLASMAon 05-21-2023 CMV DNA DEVYN+probe Qn (P) Not detected Normal Not Detected [facility] Comment on above: Order Comment: Rasta kennedy Type: BLOOD SPECIMENOrdering Facility: [facility] Address: , , Performed By: #### C MVQNT ####[facility] LABCLIA [id number] [place] [address] [place] Tacrolimus Bld-mCncon 2022 Tacrolimus (Bld) [Mass/Vol] 9.8 ng/mL Normal 5.0-20.0 [facility] Comment on above: Order Comment: Rasta [...] Alinity i. Performed By: #### 1 1253-2 ####[facility] LABCLIA [id number] [place] [address] [place] CBC W Auto Differential pane l (Bld)on 05-18-2023 Basophils (Bld) [#/Vol] 0.07 10*3/uL Normal <0.11 [facility] Comment on above: Order Comment: Speci men Type: BLOOD SPECIMENOrdering Facility: [facility] Address: [address] [address] Performed By: #### 5 7021-8 ####[facility] LABCLIA [id number] [place] [address] Basophils/100 WBC (Bld) 1.2 % Normal [facility] Comment on above: Order Comment: Speci men Type: BLOOD SPECIMENOrdering Facility: [facility] Address: [address] [place] [address] Performed By: #### 5 7021-8 ####[facility] LABCLIA [id number] [place] [address] Differential cell count method Nom (Bld) Auto Normal [facility] Comment on above: Order Comment: Speci men Type: BLOOD SPECIMENOrdering Facility: [facility] Address: [address] [place] [address] Performed By: #### 5 7021-8 ####[facility] LABCLIA [id number] [place] [address] Eosinophils (Bld) [#/Vol] 0.30 10*3/uL Normal <0.46 [facility] Comment on above: Order Comment: Speci men Type: BLOOD SPECIMENOrdering Facility: [facility] Address: [address] [place] [address] Performed By: #### 5 7021-8 ####[facility] LABCLIA [id number] [place] [address] Eosinophils/100 WBC (Bld) 5.0 % Normal [facility] Comment on above: Order Comment: Speci men Type: BLOOD SPECIMENOrdering Facility: [facility] Address: [address] [place] [address] Performed By: #### 5 7021-8 ####[facility] LABCLIA [id number] [place] [address] Erythrocyte distribution width (RBC) [Ratio] 13.3 % Normal 11.5-15.0 [facility] Comment on above: Order Comment: Speci men Type: BLOOD SPECIMENOrdering Facility: [facility] Address: [address] [place] [address] Performed By: #### 5 7021-8 ####[facility] LABCLIA [id number] [place] [address] Hematocrit (Bld) [Volume fraction] 35.7 % Low 39.0-51.0 [facility] Comment on above: Order Comment: Speci men Type: BLOOD SPECIMENOrdering Facility: [facility] Address: [address] [place] [address] Performed By: #### 5 7021-8 ####[facility] LABIA [id number] [place] [address] Hemoglobin (Bld) [Mass/Vol] 12.0 g/dL Low 13.0-17.0 [facility] Comment on above: Order Comment: Speci men Type: BLOOD SPECIMENOrdering Facility: [facility] Address: [address] [place] [address] Performed By: #### 5 7021-8 ####[facility] LABCLIA [id number] [place] [address] Immature granulocytes (Bld) [#/Vol] 10*3/uL Normal <0.10 [facility] Comment on above: Order Comment: Speci men Type: BLOOD SPECIMENOrdering Facility: [facility] Address: [address] [place] [address] Performed By: #### 5 7021-8 ####[facility] LABIA [id number] [place] [address] Immature granulocytes/100 WBC (Bld) 0.3 % Normal [facility] Comment on above: Order Comment: Speci men Type: BLOOD SPECIMENOrdering Facility: [facility] Address: [address] [place] [address] Performed By: #### 5 7021-8 ####[facility] LABCLIA [id number] [place] [address] Lymphocytes (Bld) [#/Vol] 1.70 10*3/uL Normal 1.00-4.00 [facility] Comment on above: Order Comment: Speci men Type: BLOOD SPECIMENOrdering Facility: [facility] Address: [address] [place] [address] Performed By: #### 5 7021-8 ####[facility] LABCLIA [id number] [place] [address] Lymphocytes/100 WBC (Bld) 28.3 % Normal [facility] Comment on above: Order Comment: Speci men Type: BLOOD SPECIMENOrdering Facility: [facility] Address: [address] [place] [address] Performed By: #### 5 7021-8 ####[facility] LABIA [id number] [place] [address] MCH (RBC) [Entitic mass] 31.3 pg Normal 26.0-34.0 [facility] Comment on above: Order Comment: Speci men Type: BLOOD SPECIMENOrdering Facility: [facility] Address: [address] [place] [address] Performed By: #### 5 7021-8 ####[facility] LABCLIA [id number] [place] [address] MCHC (RBC) [Mass/Vol] 33.6 g/dL Normal 30.5-36.0 [facility] Comment on above: Order Comment: Speci men Type: BLOOD SPECIMENOrdering Facility: [facility] Address: [address] [place] [address] Performed By: #### 5 7021-8 ####[facility] LABCLIA [id number] [place] [address] MCV (RBC) [Entitic vol] 93.2 fL Normal 80.0-100.0 [facility] Comment on above: Order Comment: Speci men Type: BLOOD SPECIMENOrdering Facility: [facility] Address: [address] [place] [address] Performed By: #### 5 7021-8 ####[facility] LABCLIA [id number] [place] [address] Monocytes (Bld) [#/Vol] 0.71 10*3/uL Normal <0.87 [facility] Comment on above: Order Comment: Speci men Type: BLOOD SPECIMENOrdering Facility: [facility] Address: [address] [place] [address] Performed By: #### 5 7021-8 ####[facility] LABCLIA [id number] [place] [address] Monocytes/100 WBC (Bld) 11.8 % Normal [facility] Comment on above: Order Comment: Speci men Type: BLOOD SPECIMENOrdering Facility: [facility] Address: [address] [place] [address] Performed By: #### 5 7021-8 ####[facility] LABCLIA [id number] [place] [address] Neutrophils (Bld) [#/Vol] 3.21 10*3/uL Normal 1.45-7.50 [facility] Comment on above: Order Comment: Speci men Type: BLOOD SPECIMENOrdering Facility: [facility] Address: [address] [place] [address] Performed By: #### 5 7021-8 ####[facility] LABCLIA [id number] [place] [address] Neutrophils/100 WBC (Bld) 53.4 % Normal [facility] Comment on above: Order Comment: Speci men Type: BLOOD SPECIMENOrdering Facility: [facility] Address: [address] [address] Performed By: #### 5 7021-8 ####[facility] LABCLIA [id number] [place] [address] Nucleated RBC (Bld) [#/Vol] 10*3/uL Normal <0.01 [facility] Comment on above: Order Comment: Speci men Type: BLOOD SPECIMENOrdering Facility: [facility] Address: [address] [address] Performed By: #### 5 7021-8 ####[facility] LABCLIA [id number] [place] [address] Nucleated RBC/100 WBC (Bld) [Ratio] 0.0 /100 WBC Normal [facility] Comment on above: Order Comment: Speci men Type: BLOOD SPECIMENOrdering Facility: [facility] Address: [address] [address] Performed By: #### 5 7021-8 ####[facility] LABCLIA [id number] [place] [address] Platelet mean volume (Bld) [Entitic vol] 8.7 fL Low 9.0-12.7 [facility] Comment on above: Order Comment: Speci men Type: BLOOD SPECIMENOrdering Facility: [facility] Address: [address] [address] Performed By: #### 5 7021-8 ####[facility] LABCLIA [id number] [place] [address] Platelets (Bld) [#/Vol] 164 10*3/uL Normal 150-400 [facility] Comment on above: Order Comment: Speci men Type: BLOOD SPECIMENOrdering Facility: [facility] Address: [address] [place] [address] Performed By: #### 5 7021-8 ####[facility] LABCLIA [id number] [place] [address] RBC (Bld) [#/Vol] 3.83 10*6/uL Low 4.20-6.00 [facility] Comment on above: Order Comment: Speci men Type: BLOOD SPECIMENOrdering Facility: [facility] Address: [address] [place] [address] Performed By: #### 5 7021-8 ####[facility] LABCLIA [id number] [place] [address] WBC (Bld) [#/Vol] 6.01 10*3/uL Normal 3.70-11.00 [facility] Comment on above: Order Comment: Speci men Type: BLOOD SPECIMENOrdering Facility: [facility] Address: [address] [place] [address] Performed By: #### 5 7021-8 ####[facility] LABCLIA [id number] [place] [id number] CYTOMEGALOVIRUS (CMV) DNA, Q UANTITATIVE PCR, PLASMAon 05-18-2023 CMV DNA DEVYN+probe Qn (P) Not detected Normal Not Detected [facility] Comment on above: Order Comment: Speci men Type: BLOOD SPECIMENOrdering Facility: [facility] Address: [address] [place] [address] Performed By: #### C MVQNT ####[facility] LABCLIA [id number] [place] [address] [place] Comprehensive metabolic 2000 panelon 05-18-2023 Albumin [Mass/Vol] 4.2 g/dL Normal 3.9-4.9 [facility] [place] Comment on above: Order Comment: Speci men Type: BLOOD SPECIMENOrdering Facility: [facility] Address: [address] [place] [address] Performed By: #### 2 777-1, 47657-8, 35534-6 ####[facility] LABCLIA [id number] [place] [address] ALP [Catalytic activity/Vol] 96 U/L Normal 38-113 [facility] Comment on above: Order Comment: Speci men Type: BLOOD SPECIMENOrdering Facility: [facility] Address: [address] [place] [address] Performed By: #### 2 777-1, , ####[facility] LABCLIA [id number] [place] [address] ALT [Catalytic activity/Vol] 9 U/L Low 10-54 [facility] Comment on above: Order Comment: Speci men Type: BLOOD SPECIMENOrdering Facility: [facility] Address: [address] [place] [address] Performed By: #### 2 777-1, , ####[facility] LABCLIA [id number] [place] [address] Anion gap [Moles/Vol] 8 mmol/L Low 9-18 [facility] Comment on above: Order Comment: Speci men Type: BLOOD SPECIMENOrdering Facility: [facility] Address: [address] [place] [address] Performed By: #### 2 777-1, , ####[facility] LABIA [id number] [place] [address] AST [Catalytic activity/Vol] 14 U/L Normal 14-40 [facility] Comment on above: Order Comment: Speci men Type: BLOOD SPECIMENOrdering Facility: [facility] Address: [address] [place], [place] [address] Performed By: #### 2 777-1, , ####[facility] LABCLIA [id number] [place] [address] Bilirubin [Mass/Vol] 0.3 mg/dL Normal 0.2-1.3 [facility] Comment on above: Order Comment: Speci men Type: BLOOD SPECIMENOrdering Facility: [facility] Address: [address] Performed By: #### 2 777-1, , ####[facility] LABCLIA [id number] [place] [address] Calcium [Mass/Vol] 10.1 mg/dL Normal 8.5-10.2 [facility] Comment on above: Order Comment: Speci men Type: BLOOD SPECIMENOrdering Facility: [facility] Address: [address] Performed By: #### 2 777-1, , ####[facility] LABIA [id number] [place] [address] Chloride [Moles/Vol] 105 mmol/L Normal 97-105 [facility] Comment on above: Order Comment: Speci men Type: BLOOD SPECIMENOrdering Facility: [facility] Address: [address] [address] Performed By: #### 2 777-1, , ####[facility] LABIA [id number] [place] [address] CO2 [Moles/Vol] 28 mmol/L Normal 22-30 [facility] Comment on above: Order Comment: Speci men Type: BLOOD SPECIMENOrdering Facility: [facility] Address: [address] Performed By: #### 2 777-1, , ####[facility] LABIA [id number] [place] [address] Creatinine [Mass/Vol] 1.24 mg/dL High 0.73-1.22 [facility] Comment on above: Order Comment: Speci men Type: BLOOD SPECIMENOrdering Facility: [facility] Address: [address] [place] [address] Performed By: #### 2 777-1, 01636-0, 70555-8 ####[facility] LABCLIA [id number] [place] [address] Creatinine and Glomerular filtration rate.predicted panel (S/P/Bld) 74 mL/min/1.73m??? Normal >=60 [facility] Comment on above: Order Comment: Rasta kennedy Type: BLOOD SPECIMENOrdering Facility: [facility] Address: [address] [place] [address] Result Comment: Karma mated Glomerular Filtration Rate [...] actual GFR. Performed By: #### 2 777-1, 18938-9, ####[facility] LABCLIA [id number] [place] [address] Glucose [Mass/Vol] 95 mg/dL Normal 74-99 [facility] [place] Comment on above: Order Comment: Rasta kenendy Type: BLOOD SPECIMENOrdering Facility: [facility] Address: [address] [place] [address] Result Comment: The [place] Diabetes [employer] (ADA) provides guidance for cutoff [...] Standards of Medical Care in Diabetes 2016, [place] [employer]. Diabetes Care. 2016.39(Suppl 1). Performed By: #### 2 777-1, , ####[facility] LABCLIA [id number] [place] [address] Potassium [Moles/Vol] 5.2 mmol/L High 3.7-5.1 [facility] Comment on above: Order Comment: Speci men Type: BLOOD SPECIMENOrdering Facility: [facility] Address: [address] [place] [address] Performed By: #### 2 777-1, , ####[facility] LABCLIA [id number] [place] [address] Protein [Mass/Vol] 6.2 g/dL Low 6.3-8.0 [facility] Comment on above: Order Comment: Speci men Type: BLOOD SPECIMENOrdering Facility: [facility] Address: [address] [place] [address] Performed By: #### 2 777-1, , ####[facility] LABIA [id number] [place] [address] Sodium [Moles/Vol] 141 mmol/L Normal 136-144 [facility] Comment on above: Order Comment: Speci men Type: BLOOD SPECIMENOrdering Facility: [facility] Address: [address] [place] [address] Performed By: #### 2 777-1, , ####[facility] LABCLIA [id number] [place] [address] Urea nitrogen [Mass/Vol] 21 mg/dL Normal 9-24 [facility] Comment on above: Order Comment: Speci men Type: BLOOD SPECIMENOrdering Facility: [facility] Address: [address] [place] [address] Performed By: #### 2 777-1, , ####[facility] LABCLIA [id number] [place] [address] GGT SerPl-cCncon 05-18-2023 Gamma glutamyl transferase [Catalytic activity/Vol] 61 U/L Normal 10-70 [facility] Comment on above: Order Comment: Speci men Type: BLOOD SPECIMENOrdering Facility: [facility] Address: [address] [place], [place] [address] Performed By: #### 2 324-2 ####[facility] LABCLIA [id number] [address] [place] HBV DNA Qn (S)on 05-18-2023 HBV DNA DEVYN+probe Qn Not detected Normal HBV DNA not detected by PCR [facility] Comment on above: Order Comment: Speci men Type: BLOOD SPECIMENOrdering Facility: [facility] Address: [address] [place] [address] Performed By: #### 1 1258-1 ####[facility] LABCLIA [id number] [address] HCV RNA SerPl DEVYN+probe-aCnc on 05-18-2023 HCV RNA DEVYN+probe Qn Not detected Normal HCV RNA not detected by PCR. [facility] Comment on above: Order Comment: Speci men Type: BLOOD SPECIMENOrdering Facility: [facility] Address: [address] [place], [place] [address] Performed By: #### 1 1011-4 ####[facility] LABCLIA [id number] [address] [place] HIV1 RNA # SerPl DEVYN+probeon 05-18-2023 HIV 1 RNA DEVYN+probe [#/Vol] Not detected Normal HIV-1 RNA not detected by PCR. [facility] Comment on above: Order Comment: Speci men Type: BLOOD SPECIMENOrdering Facility: [facility] Address: [address] [place], [place] [address] Performed By: #### 2 0447-9 ####[facility] LABCLIA [id number] [address] [place] Magnesium SerPl-mCncon 05-18 Magnesium [Mass/Vol] 1.7 mg/dL Normal 1.7-2.3 [facility] Comment on above: Order Comment: Speci men Type: BLOOD SPECIMENOrdering Facility: [facility] Address: [address] [place] [address] Performed By: #### 2 777-1, 12662-9, 11076-4 ####[facility] LABCLIA [id number] [place] [address] PHOSPHATIDYLETHANOL (PETH)on 05-18-2023 EER PETH See Note Normal [facility] Comment on above: Order Comment: Speci men Type: BLOOD SPECIMENOrdering Facility: [facility] Address: [address] [place] [address] Result Comment: Auth orized individuals can access the [facility] Report using the following link:[email or web address] By: KORTNEY [email or web address] [place], [place] [address]Pxjymkgzua Director: Audi Bundy MD, PhDCLIA Number: [id number] Performed By: #### P ETH ####[facility] [id number] [place] [address] PETH 16:0/18.2 (PLPETH) <10 Normal [facility] Comment on above: Order Comment: Speci men Type: BLOOD SPECIMENOrdering Facility: [facility] Address: [address] [place] [address] Performed By: #### P ETH ####[facility] LABORATORIESCLIA [id number] [place] [address] PETH 16:0/18:1 (POPETH) <10 Normal [facility] Comment on above: Order Comment: Speci men Type: BLOOD SPECIMENOrdering Facility: [facility] Address: [address] [place] [address] Result Comment: INTE RPRETIVE INFORMATION:Phosphatidylethanol (PEth), Whole BloodPhosphatidylethanol (PEth) homologues Result InterpretationPEth 16:0/18:1 (POPEth)Less than 10 ng/mL............Not detectedLess than 20 ng/mL............Abstinence or light alcohol surcditnsvs66 - 200 ng/mL................Moderate alcohol consumptionGreater than 200 [...] was developed and its performance characteristicsdetermined by [employer]. It has not been cleared orapproved by the U.S. Food and Drug Administration. This test wasperformed in a CLIA-certified laboratory and is intended forclinical purposes. Performed By: #### P ETH ####[facility] LABORATORIESCLIA [id number] [place] [address] Phosphate [facility] Foundationon 05-18 Phosphate [Mass/Vol] 4.1 mg/dL Normal 2.7-4.8 [facility] Comment on above: Order Comment: Rasta kennedy Type: BLOOD SPECIMENOrdering Facility: [facility] Address: [address] [id number] Performed By: #### 2 777-1, 64134-9, 59982-0 ####[facility] LABCLIA [id number] [place] [address] Tacrolimus Bld-ncon 2022 Tacrolimus (Bld) [Mass/Vol] 13.6 ng/mL Normal 5.0-20.0 [facility] Comment on above: Order Comment: Rasta kennedy Type: BLOOD SPECIMENOrdering Facility: [facility] Address: [address] [address] Result Comment: Jennifer vidualized target levels for [...] Alinity i. Performed By: #### 1 1253-2 ####[facility] LABCLIA [id number] [place] [address] [place] CNPNon 05-14-2023 CNPN Normal [facility] CYTOMEGALOVIRUS (CMV) DNA, Q UANTITATIVE PCR, PLASMAon 05-14-2023 CMV DNA DEVYN+probe (P) [Log units/Vol] <1.54 Normal [facility] Comment on above: Order Comment: Rasta kennedy Type: BLOOD SPECIMENOrdering Facility: [facility] Address: , , Performed By: #### C MVQNT ####[facility] LABCLIA [id number] [place] [address] [place] CMV DNA DEVYN+probe Qn (P) Detected Abnormal Not Detected [facility] Comment on above: Order Comment: Rasta kennedy Type: BLOOD SPECIMENOrdering Facility: [facility] Address: , , Performed By: #### C MVQNT ####[facility] LABCLIA [id number] [place] [address] [place] CMV DNA NUMERIC <35 Normal [facility] Comment on above: Order Comment: Rasta kennedy Type: BLOOD SPECIMENOrdering Facility: [facility] Address: , , Performed By: #### C MVQNT ####[facility] LABCLIA [id number] [place] [address] [place] Tacrolimus Bld-mCncon 2022 Tacrolimus (Bld) [Mass/Vol] 11.1 ng/mL Normal 5.0-20.0 [facility] Comment on above: Order Comment: Rasta [...] situation. Test performed by chemiluminescent immunoassay using [employer] Alinity i. Performed By: #### 1 1253-2 ####[facility] LABCLIA [id number] [place] [address] [place] CYTOMEGALOVIRUS (CMV) DNA, Q UANTITATIVE PCR, PLASMAon 05-07-2023 CMV DNA DEVYN+probe Qn (P) Not detected Normal Not Detected [facility] Comment on above: Order Comment: Rasta kennedy Type: BLOOD SPECIMENOrdering Facility: [facility] Address: , , Performed By: #### C MVQNT ####[facility] LABCLIA [id number] [place] [address] [place] Tacrolimus Bld-mCncon 2022 Tacrolimus (Bld) [Mass/Vol] 10.9 ng/mL Normal 5.0-20.0 [facility] Comment on above: Order Comment: Rasta knenedy Type: BLOOD SPECIMENOrdering Facility: [facility] [...] situation. Test performed by chemiluminescent immunoassay using [employer] Alinity i. Performed By: #### 1 1253-2 ####[facility] LABCLIA [id number] [place] [address] [place] Basic metabolic 2000 panelon 04-30-2023 Anion gap [Moles/Vol] 8 mmol/L Low 9-18 [facility] Comment on above: Order Comment: Rasta kennedy Type: BLOOD SPECIMENOrdering Facility: [facility] Address: [address] [address] Performed By: #### 2 4321-2, 16315-9 ####[facility] LABIA [id number] [place] [address] [place] Calcium [Mass/Vol] 9.7 mg/dL Normal 8.5-10.2 [facility] Comment on above: Order Comment: Rasta kennedy Type: BLOOD SPECIMENOrdering Facility: [facility] Address: [address] [id number] Performed By: #### 2 4321-2, 32044-9 ####[facility] LABCLIA [id number] [address] [place] Chloride [Moles/Vol] 103 mmol/L Normal 97-105 [facility] Comment on above: Order Comment: Rasta kennedy Type: BLOOD SPECIMENOrdering Facility: [facility] Address: [address] [place] [address] Performed By: #### 2 4321-2, 01201-2 ####[facility] LABIA [id number] [place] [address] [place] [facility] CO2 [Moles/Vol] 30 mmol/L Normal 22-30 [facility] Comment on above: Order Comment: Speci men Type: BLOOD SPECIMENOrdering Facility: [facility] Address: [address] [place] [address] Performed By: #### 2 4321-2, 35351-6 ####[facility] LABIA [id number] [address] Creatinine [Mass/Vol] 1.19 mg/dL Normal 0.73-1.22 [facility] Comment on above: Order Comment: Speci men Type: BLOOD SPECIMENOrdering Facility: [facility] Address: [address] [place] [address] Performed By: #### 2 4321-2, 41694-2 ####[facility] LABIA [id number] [address] Creatinine and Glomerular filtration rate.predicted panel (S/P/Bld) 79 mL/min/1.73m??? Normal >=60 [facility] Comment on above: Order Comment: Speci men Type: BLOOD SPECIMENOrdering Facility: [facility] Address: [address] [place] [address] Result Comment: Karma mated Glomerular Filtration Rate [...] actual GFR. Performed By: #### 2 4321-2, 80129-2 ####[facility] LABIA [id number] [place] [address] [place] Glucose [Mass/Vol] 100 mg/dL High 74-99 [facility] Comment on above: Order Comment: Speci men Type: BLOOD SPECIMENOrdering Facility: [facility] Address: [address] [place] [address] Result Comment: The [place] Diabetes Association (ADA) provides guidance for cutoff [...] Standards of Medical Care in Diabetes 2016, [place] [employer]. Diabetes Care. 2016.39(Suppl 1). Performed By: #### 2 4321-2, 81475-5 ####[facility] LABCLIA [id number] [place] [address] [place] Potassium [Moles/Vol] 4.9 mmol/L Normal 3.7-5.1 [facility] Comment on above: Order Comment: Yuryi men Type: BLOOD SPECIMENOrdering Facility: [facility] Address: [address] [place] [address] Performed By: #### 2 4321-2, 34836-5 ####[facility] LABCLIA [id number] [place] [address] [place] Sodium [Moles/Vol] 141 mmol/L Normal 136-144 [facility] Comment on above: Order Comment: Speci men Type: BLOOD SPECIMENOrdering Facility: [facility] Address: [address] [address] Performed By: #### 2 4321-2, 28178-7 ####[facility] LABCLIA [id number] [place] [address] [place] Urea nitrogen [Mass/Vol] 11 mg/dL Normal 9-24 [facility] Comment on above: Order Comment: Speci men Type: BLOOD SPECIMENOrdering Facility: [facility] Address: [address] [place] [address] Performed By: #### 2 4321-2, 15585-0 ####[facility] LABCLIA [id number] [place] [address] [place] CNOVon 04-30-2023 CNOV Normal [facility] NT-proBNP SerPl-mCncon 04-30 Natriuretic peptide.B prohormone N-Terminal [Mass/Vol] 4754 pg/mL High <125 [facility] Comment on above: Order Comment: Yuryi brent Type: BLOOD SPECIMENOrdering Facility: [facility] Address: [address] [place] [address] Performed By: #### 2 4321-2, 83163-6 ####[facility] LABCLIA [id number] [place] [address] [place] CYTOMEGALOVIRUS (CMV) DNA, Q UANTITATIVE PCR, PLASMAon 04-28-2023 CMV DNA DEVYN+probe Qn (P) Not detected Normal Not Detected [facility] Comment on above: Order Comment: Speci men Type: BLOOD SPECIMENOrdering Facility: [facility] Address: , , Performed By: #### C MVQNT ####[facility] LABCLIA [id number] [place] [address] [place] CMV DNA DEVYN+probe Qn (P) Not detected Normal Not Detected [facility] Comment on above: Order Comment: Yuryi men Type: BLOOD SPECIMENOrdering Facility: [facility] Address: , , Performed By: #### C MVQNT ####[facility] LABCLIA [id number] [place] [address] [place] Tacrolimus Bld-mCncon 2022 Tacrolimus (Bld) [Mass/Vol] 8.3 ng/mL Normal 5.0-20.0 [facility] Comment on above: Order Comment: Rasta [...] Alinity i. Performed By: #### 1 1253-2 ####[facility] LABCLIA [id number] [place] [address] [place] Tacrolimus (Bld) [Mass/Vol] 6.0 ng/mL Normal 5.0-20.0 [facility] Comment on above: Order Comment: Rasta [...] Alinity i. Performed By: #### 1 1253-2 ####[facility] LABCLIA [id number] [place] [address] [place] CNOVon 04-22-2023 CNOV Normal [facility] CYTOMEGALOVIRUS (CMV) DNA, Q UANTITATIVE PCR, PLASMAon 04-20-2023 CMV DNA DEVYN+probe Qn (P) Not detected Normal Not Detected [facility] Comment on above: Order Comment: Rasta kennedy Type: BLOOD SPECIMENOrdering Facility: [facility] Address: , , Performed By: #### C MVQNT ####[facility] LABCLIA [id number] [address] CMV DNA DEVYN+probe Qn (P) Not detected Normal Not Detected [facility] Comment on above: Order Comment: Rasta kennedy Type: BLOOD SPECIMENOrdering Facility: [facility] Address: , , Performed By: #### C MVQNT ####[facility] LABIA [id number] [address] [place] Tacrolimus Bld-mCncon 2022 Tacrolimus (Bld) [Mass/Vol] 5.2 ng/mL Normal 5.0-20.0 [facility] Comment on above: Order Comment: Rasta [...] Alinity i. Performed By: #### 1 1253-2 ####[facility] LABIA [id number] [place] [address] [place] Tacrolimus (Bld) [Mass/Vol] 2.7 ng/mL Low 5.0-20.0 [facility] Comment on above: Order Comment: Rasta [...] Alinity i. Performed By: #### 1 1253-2 ####[facility] LABCLIA [id number] [place] [address] [place] CNPNon 04-17-2023 CNPN Normal [facility] CNPNon 04-16-2023 CNPN Normal [facility] CBC W Auto Differential pane l (Bld)on 04-15-2023 Anisocytosis Ql (Bld) Present Normal [facility] Comment on above: Order Comment: Speci men Type: BLOOD SPECIMENOrdering Facility: [facility] Address: [address] Performed By: #### 5 7021-8 ####[facility] LABIA [id number] [place] [address] [place] Basophils (Bld) [#/Vol] 0.27 10*3/uL High <0.11 [facility] Comment on above: Order Comment: Speci men Type: BLOOD SPECIMENOrdering Facility: [facility] Address: [address] Performed By: #### 5 7021-8 ####[facility] LABCLIA [id number] [address] [place] Basophils/100 WBC (Bld) 1.7 % Normal [facility] Comment on above: Order Comment: Speci men Type: BLOOD SPECIMENOrdering Facility: [facility] Address: [address] Performed By: #### 5 7021-8 ####[facility] LABIA [id number] [place] [address] [place] Differential cell count method Nom (Bld) Manual Normal [facility] Comment on above: Order Comment: Speci men Type: BLOOD SPECIMENOrdering Facility: [facility] Address: [address] Performed By: #### 5 7021-8 ####[facility] LABCLIA [id number] [place] [address] [place] Eosinophils (Bld) [#/Vol] 1.98 10*3/uL High <0.46 [facility] Comment on above: Order Comment: Speci men Type: BLOOD SPECIMENOrdering Facility: [facility] Address: [address] [place] [address] Performed By: #### 5 7021-8 ####[facility] LABCLIA [id number] [place] [address] [place] Eosinophils/100 WBC (Bld) 12.7 % Normal [facility] Comment on above: Order Comment: Speci men Type: BLOOD SPECIMENOrdering Facility: [facility] Address: [address] [place] [address] Performed By: #### 5 7021-8 ####[facility] LABCLIA [id number] [place] [address] [place] Erythrocyte distribution width (RBC) [Ratio] 18.6 % High 11.5-15.0 [facility] Comment on above: Order Comment: Speci men Type: BLOOD SPECIMENOrdering Facility: [facility] Address: [address] [place] [address] Performed By: #### 5 7021-8 ####[facility] LABIA [id number] [place] [address] [place] Hematocrit (Bld) [Volume fraction] 32.5 % Low 39.0-51.0 [facility] Comment on above: Order Comment: Speci men Type: BLOOD SPECIMENOrdering Facility: [facility] Address: [address] [place], [place] [address] Performed By: #### 5 7021-8 ####[facility] LABCLIA [id number] [place] [address] [place] Hemoglobin (Bld) [Mass/Vol] 10.9 g/dL Low 13.0-17.0 [facility] Comment on above: Order Comment: Speci men Type: BLOOD SPECIMENOrdering Facility: [facility] [facility] Address: [address] [place] [address] Performed By: #### 5 7021-8 ####[facility] LABCLIA [id number] [place] [address] [place] Lymphocytes (Bld) [#/Vol] 2.78 10*3/uL Normal 1.00-4.00 [facility] Comment on above: Order Comment: Speci men Type: BLOOD SPECIMENOrdering Facility: [facility] Address: [address] [place] [address] Performed By: #### 5 7021-8 ####[facility] LABCLIA [id number] [address] [place] Lymphocytes/100 WBC (Bld) 17.8 % Normal [facility] Comment on above: Order Comment: Speci men Type: BLOOD SPECIMENOrdering Facility: [facility] Address: [address] [place] [address] Performed By: #### 5 7021-8 ####[facility] LABCLIA [id number] [place] [address] [place] MCH (RBC) [Entitic mass] 34.6 pg High 26.0-34.0 [facility] Comment on above: Order Comment: Speci men Type: BLOOD SPECIMENOrdering Facility: [facility] Address: [address] [place], [place] [address] Performed By: #### 5 7021-8 ####[facility] LABCLIA [id number] [place] [address] [place] MCHC (RBC) [Mass/Vol] 33.5 g/dL Normal 30.5-36.0 [facility] Comment on above: Order Comment: Speci men Type: BLOOD SPECIMENOrdering Facility: [facility] Address: [address] Performed By: #### 5 7021-8 ####[facility] LABIA [id number] [place] [address] [place] MCV (RBC) [Entitic vol] 103.2 fL High 80.0-100.0 [facility] Comment on above: Order Comment: Speci men Type: BLOOD SPECIMENOrdering Facility: [facility] Address: [address] [place], [place] [address] Performed By: #### 5 7021-8 ####[facility] LABIA [id number] [place] [address] [place] Monocytes (Bld) [#/Vol] 0.92 10*3/uL High <0.87 [facility] Comment on above: Order Comment: Speci men Type: BLOOD SPECIMENOrdering Facility: [facility] Address: [address] [place], [place] [address] Performed By: #### 5 7021-8 ####[facility] LABIA [id number] [place] [address] [place] Monocytes/100 WBC (Bld) 5.9 % Normal [facility] Comment on above: Order Comment: Speci men Type: BLOOD SPECIMENOrdering Facility: [facility] Address: [address] [place], [place] [address] Performed By: #### 5 7021-8 ####[facility] LABCLIA [id number] [place] [address] [place] MYELO% 1.7 % Normal [facility] Comment on above: Order Comment: Speci men Type: BLOOD SPECIMENOrdering Facility: [facility] Address: [address] [place], [place] [address] Performed By: #### 5 7021-8 ####[facility] LABIA [id number] [address] [id number] [address] [place] Neutrophils (Bld) [#/Vol] 9.40 10*3/uL High 1.45-7.50 [facility] Comment on above: Order Comment: Speci men Type: BLOOD SPECIMENOrdering Facility: [facility] Address: [address] [place] [address] Performed By: #### 5 7021-8 ####[facility] LABCLIA [id number] [place] [address] [place] Neutrophils/100 WBC (Bld) 60.2 % Normal [facility] Comment on above: Order Comment: Speci men Type: BLOOD SPECIMENOrdering Facility: [facility] Address: [address] [place] [address] Performed By: #### 5 7021-8 ####[facility] LABCLIA [id number] [place] [address] [place] Nucleated RBC (Bld) [#/Vol] 10*3/uL Normal <0.01 [facility] Comment on above: Order Comment: Speci men Type: BLOOD SPECIMENOrdering Facility: [facility] Address: [address] [place] [address] Performed By: #### 5 7021-8 ####[facility] LABCLIA [id number] [place] [address] [place] Nucleated RBC/100 WBC (Bld) [Ratio] 0.0 /100 WBC Normal [facility] Comment on above: Order Comment: Speci men Type: BLOOD SPECIMENOrdering Facility: [facility] Address: [address] [place], [place] [address] Performed By: #### 5 7021-8 ####[facility] LABCLIA [id number] [place] [address] [place] Ovalocytes LM Ql (Bld) Few Normal [facility] Comment on above: Order Comment: Speci men Type: BLOOD SPECIMENOrdering Facility: [facility] Address: [address] [place] [address] Performed By: #### 5 7021-8 ####[facility] LABCLIA [id number] [place] [address] [place] Platelet mean volume (Bld) [Entitic vol] 10.1 fL Normal 9.0-12.7 [facility] Comment on above: Order Comment: Speci men Type: BLOOD SPECIMENOrdering Facility: [facility] Address: [address] Performed By: #### 5 7021-8 ####[facility] LABIA [id number] [place] [address] [place] Platelets (Bld) [#/Vol] 153 10*3/uL Normal 150-400 [facility] Comment on above: Order Comment: Speci men Type: BLOOD SPECIMENOrdering Facility: [facility] Address: [address] [place] [address] Performed By: #### 5 7021-8 ####[facility] LABIA [id number] [place] [address] [place] Platelets Estimate (Bld) [#/Vol] Adequate Normal [facility] Comment on above: Order Comment: Speci men Type: BLOOD SPECIMENOrdering Facility: [facility] Address: [address] [place], [place] [address] Performed By: #### 5 7021-8 ####[facility] LABCLIA [id number] [place] [address] [place] Polychromasia LM Ql (Bld) Slight Normal [facility] Comment on above: Order Comment: Speci men Type: BLOOD SPECIMENOrdering Facility: [facility] Address: [address] [place] [address] Performed By: #### 5 7021-8 ####[facility] LABCLIA [id number] [place] [address] [place] RBC (Bld) [#/Vol] 3.15 10*6/uL Low 4.20-6.00 [facility] Comment on above: Order Comment: Speci men Type: BLOOD SPECIMENOrdering Facility: [facility] Address: [address] Performed By: #### 5 7021-8 ####[facility] LABCLIA [id number] [place] [address] [place] RED CELL MORPH Reviewed: see result s of individual morphologies Normal [facility] Comment on above: Order Comment: Speci men Type: BLOOD SPECIMENOrdering Facility: [facility] Address: [address] [place], [place] [address] Performed By: #### 5 7021-8 ####[facility] LABIA [id number] [place] [address] [place] WBC (Bld) [#/Vol] 15.62 10*3/uL High 3.70-11.00 [facility] Comment on above: Order Comment: Speci men Type: BLOOD SPECIMENOrdering Facility: [facility] Address: [address] [place], [place] [address] Performed By: #### 5 7021-8 ####[facility] LABCLIA [id number] [place] [address] [place] WBC Left Shift Ql (Bld) Present Normal [facility] Comment on above: Order Comment: Speci men Type: BLOOD SPECIMENOrdering Facility: [facility] Address: [address] Performed By: #### 5 7021-8 ####[facility] LABCLIA [id number] [place] [address] [place] CNOVon 04-15-2023 CNOV Normal [facility] Comprehensive metabolic 2000 panelon 04-15-2023 Albumin [Mass/Vol] 2.7 g/dL Low 3.9-4.9 [facility] [place] Comment on above: Order Comment: Speci men Type: BLOOD SPECIMENOrdering Facility: [facility] Address: [address] [place] [address] Performed By: #### 2 4323-8, 4-2, , 2776- ####[facility] LABCLIA [id number] [place] [address] [place] ALP [Catalytic activity/Vol] 92 U/L Normal 38-113 [facility] Comment on above: Order Comment: Speci men Type: BLOOD SPECIMENOrdering Facility: [facility] Address: [address] [place] [address] Performed By: #### 2 4323-8, 4-2, , 2776- ####[facility] LABCLIA [id number] [place] [address] [place] ALT [Catalytic activity/Vol] 39 U/L Normal 10-54 [facility] Comment on above: Order Comment: Speci men Type: BLOOD SPECIMENOrdering Facility: [facility] Address: [address] [place] [address] Performed By: #### 2 4323-8, 2323-2, , 2776-08 ####[facility] LABIA [id number] [place] [address] [place] Anion gap [Moles/Vol] 6 mmol/L Low 9-18 [facility] Comment on above: Order Comment: Speci men Type: BLOOD SPECIMENOrdering Facility: [facility] Address: [address] [place] [address] Performed By: #### 2 4323-8, 2323-2, , 2776-08 ####[facility] LABCLIA [id number] [place] [address] [place] AST [Catalytic activity/Vol] 28 U/L Normal 14-40 [facility] Comment on above: Order Comment: Speci men Type: BLOOD SPECIMENOrdering Facility: [facility] Address: [address] Performed By: #### 2 4323-8, 2323-2, , 2776-08 ####[facility] LABCLIA [id number] [place] [address] [place] Bilirubin [Mass/Vol] 0.6 mg/dL Normal 0.2-1.3 [facility] Comment on above: Order Comment: Speci men Type: BLOOD SPECIMENOrdering Facility: [facility] Address: [address] [place] [address] Performed By: #### 2 4323-8, 2323-2, , 2776-08 ####[facility] LABCLIA [id number] [place] [address] [place] Calcium [Mass/Vol] 8.3 mg/dL Low 8.5-10.2 [facility] [place] Comment on above: Order Comment: Speci men Type: BLOOD SPECIMENOrdering Facility: [facility] Address: [address] [place] [address] Performed By: #### 2 4323-8, 232-2, , 2776-08 ####[facility] LABCLIA [id number] [place] [address] [place] Chloride [Moles/Vol] 98 mmol/L Normal 97-105 [facility] Comment on above: Order Comment: Speci men Type: BLOOD SPECIMENOrdering Facility: [facility] Address: [address] Performed By: #### 2 4323-8, 2323-2, , 2776-08 ####[facility] LABCLIA [id number] [place] [id number] [place] CO2 [Moles/Vol] 27 mmol/L Normal 22-30 [facility] Comment on above: Order Comment: Speci men Type: BLOOD SPECIMENOrdering Facility: [facility] Address: [address] [place] [id number] Performed By: #### 2 4323-8, 2324-2, , 2776-08 ####[facility] LABCLIA [id number] [place] [address] [place] Creatinine [Mass/Vol] 1.21 mg/dL Normal 0.73-1.22 [facility] Comment on above: Order Comment: Speci men Type: BLOOD SPECIMENOrdering Facility: [facility] Address: [address] Performed By: #### 2 4323-8, 2324-2, , 2776-08 ####[facility] LABCLIA [id number] [place] [address] [place] Creatinine and Glomerular filtration rate.predicted panel (S/P/Bld) 77 mL/min/1.73m??? Normal >=60 [facility] Comment on above: Order Comment: Speci men Type: BLOOD SPECIMENOrdering Facility: [facility] Address: [address] Result Comment: Karma mated Glomerular Filtration [...] actual GFR. Performed By: #### 2 4323-8, 2324-2, , 2776-08 ####[facility] LABCLIA [id number] [place] [id number] [place] Glucose [Mass/Vol] 88 mg/dL Normal 74-99 [facility] [place] Comment on above: Order Comment: Speci men Type: BLOOD SPECIMENOrdering Facility: [facility] Address: [place] [address] Result Comment: The [place] [employer] (ADA) provides guidance for cutoff [...] Standards of Medical Care in Diabetes 2016, [place] [employer]. Diabetes Care. 2016.39(Suppl 1). Performed By: #### 2 4323-8, 2323-2, , 2776-08 ####[facility] LABCLIA [id number] [place] [address] [place] Potassium [Moles/Vol] 4.8 mmol/L Normal 3.7-5.1 [facility] Comment on above: Order Comment: Speci men Type: BLOOD SPECIMENOrdering Facility: [facility] Address: [address] [place] [id number] Performed By: #### 2 4323-8, 2, , 2776-08 ####[facility] LABCLIA [id number] [place] [id number] [place] Protein [Mass/Vol] 4.5 g/dL Low 6.3-8.0 [facility] Comment on above: Order Comment: Speci men Type: BLOOD SPECIMENOrdering Facility: [facility] Address: [address] [place] [id number] Performed By: #### 2 4323-8, 2323-2, , 2776-08 ####[facility] LABCLIA [id number] [place] [id number] [place] Sodium [Moles/Vol] 131 mmol/L Low 136-144 [facility] Comment on above: Order Comment: Speci men Type: BLOOD SPECIMENOrdering Facility: [facility] Address: [address] [place] [address] Performed By: #### 2 4323-8, 4-2, 52262-5, 2776- ####[facility] LABCLIA [id number] [place] [address] [place] Urea nitrogen [Mass/Vol] 17 mg/dL Normal 9-24 [facility] Comment on above: Order Comment: Speci men Type: BLOOD SPECIMENOrdering Facility: [facility] Address: [address] [place] [address] Performed By: #### 2 4323-8, 2323-2, , 2776- ####[facility] LABCLIA [id number] [place] [address] [place] GGT SerPl-cCncon 04-15-2023 Gamma glutamyl transferase [Catalytic activity/Vol] 184 U/L High 10-70 [facility] Comment on above: Order Comment: Speci men Type: BLOOD SPECIMENOrdering Facility: [facility] Address: [address] [place] [address] Performed By: #### 2 4323-8, 4-2, 47726-3, 2776- ####[facility] LABCLIA [id number] [place] [address] [place] Magnesium SerPl-mCncon 04-15 Magnesium [Mass/Vol] 1.8 mg/dL Normal 1.7-2.3 [facility] Comment on above: Order Comment: Speci men Type: BLOOD SPECIMENOrdering Facility: [facility] Address: [address] [place] [address] Performed By: #### 2 4323-8, 4-2, 28990-1, 2776-1 ####[facility] LABCLIA [id number] [place] [id number] [place] Phosphate SerPl-[facility] 04-15 Phosphate [Mass/Vol] 3.5 mg/dL Normal 2.7-4.8 [facility] Comment on above: Order Comment: Speci men Type: BLOOD SPECIMENOrdering Facility: [facility] Address: [address] [place] [address] Performed By: #### 2 4323-8, 2324-2, 04216-6, 2777-1 ####[facility] [id number] [place] [address] [place] Tacrolimus Bld-[facility] 2022 Tacrolimus (Bld) [Mass/Vol] 6.2 ng/mL Normal 5.0-20.0 [facility] Comment on above: Order Comment: Speci men Type: BLOOD SPECIMENOrdering Facility: [facility] Address: [address] [place] [address] Result Comment: Jennifer vidualized target levels for [...] Alinity i. Performed By: #### 1 1253-2 ####[facility] [id number] [place] [address] [place] CNPNon 04-14-2023 CNPN Normal [facility] CASE MANAGEMon 04-13-2023 CASE MANAGEM Normal [facility] CBC W Auto Differential pane l (Bld)on 04-13-2023 Anisocytosis Ql (Bld) Present Normal [facility] Comment on above: Order Comment: Speci men Type: BLOOD SPECIMENOrdering Facility: [facility] Address: [address] [place] [address] Performed By: #### 5 7021-8 ####[facility] LABCLIA [id number] [place] [address] [place] Basophils (Bld) [#/Vol] 0.18 10*3/uL High <0.11 [facility] Comment on above: Order Comment: Speci men Type: BLOOD SPECIMENOrdering Facility: [facility] Address: [address] [place] [address] Performed By: #### 5 7021-8 ####[facility] LABCLIA [id number] [place] [address] [place] Basophils/100 WBC (Bld) 0.9 % Normal [facility] Comment on above: Order Comment: Speci men Type: BLOOD SPECIMENOrdering Facility: [facility] Address: [address] [place] [address] Performed By: #### 5 7021-8 ####[facility] LABCLIA [id number] [place] [address] [place] Differential cell count method Nom (Bld) Manual Normal [facility] Comment on above: Order Comment: Speci men Type: BLOOD SPECIMENOrdering Facility: [facility] Address: [address] [place], [place] [address] Performed By: #### 5 7021-8 ####[facility] LABCLIA [id number] [place] [address] [place] Eosinophils (Bld) [#/Vol] 2.71 10*3/uL High <0.46 [facility] Comment on above: Order Comment: Speci men Type: BLOOD SPECIMENOrdering Facility: [facility] Address: [address] [place], [place] [address] Performed By: #### 5 7021-8 ####[facility] LABCLIA [id number] [place] [address] [place] Eosinophils/100 WBC (Bld) 13.2 % Normal [facility] Comment on above: Order Comment: Speci men Type: BLOOD SPECIMENOrdering Facility: [facility] Address: [address] [place] [address] Performed By: #### 5 7021-8 ####[facility] LABIA [id number] [place] [address] [place] Erythrocyte distribution width (RBC) [Ratio] 17.4 % High 11.5-15.0 [facility] Comment on above: Order Comment: Speci men Type: BLOOD SPECIMENOrdering Facility: [facility] Address: [address] [place] [address] Performed By: #### 5 7021-8 ####[facility] LABIA [id number] [place] [address] [place] Hematocrit (Bld) [Volume fraction] 32.9 % Low 39.0-51.0 [facility] Comment on above: Order Comment: Speci men Type: BLOOD SPECIMENOrdering Facility: [facility] Address: [address] [place] [address] Performed By: #### 5 7021-8 ####[facility] LABIA [id number] [place] [address] [place] Hemoglobin (Bld) [Mass/Vol] 11.8 g/dL Low 13.0-17.0 [facility] Comment on above: Order Comment: Speci men Type: BLOOD SPECIMENOrdering Facility: [facility] Address: [address] [place], [place] [address] Performed By: #### 5 7021-8 ####[facility] LABIA [id number] [place] [address] [place] Lymphocytes (Bld) [#/Vol] 2.71 10*3/uL Normal 1.00-4.00 [facility] Comment on above: Order Comment: Speci men Type: BLOOD SPECIMENOrdering Facility: [facility] Address: [address] [place] [address] Performed By: #### 5 7021-8 ####[facility] LABIA [id number] [address] [place] Lymphocytes/100 WBC (Bld) 13.2 % Normal [facility] Comment on above: Order Comment: Speci men Type: BLOOD SPECIMENOrdering Facility: [facility] Address: [address] [place], [place] [address] Performed By: #### 5 7021-8 ####[facility] LABIA [id number] [place] [address] [place] MCH (RBC) [Entitic mass] 34.5 pg High 26.0-34.0 [facility] Comment on above: Order Comment: Speci men Type: BLOOD SPECIMENOrdering Facility: [facility] Address: [address] [place], [place] [address] Performed By: #### 5 7021-8 ####[facility] LABIA [id number] [address] [place] MCHC (RBC) [Mass/Vol] 35.9 g/dL Normal 30.5-36.0 [facility] Comment on above: Order Comment: Speci men Type: BLOOD SPECIMENOrdering Facility: [facility] Address: [address] [place], [place] [address] Performed By: #### 5 7021-8 ####[facility] LABIA [id number] [address] [place] MCV (RBC) [Entitic vol] 96.2 fL Normal 80.0-100.0 [facility] Comment on above: Order Comment: Speci men Type: BLOOD SPECIMENOrdering Facility: [facility] Address: [address] [place], [place] [address] Performed By: #### 5 7021-8 ####[facility] LABIA [id number] [id number] [address] [place] Metamyelocytes/100 WBC (Bld) 0.9 % Normal [facility] Comment on above: Order Comment: Speci men Type: BLOOD SPECIMENOrdering Facility: [facility] Address: [address] [place], [place] [address] Performed By: #### 5 7021-8 ####[facility] LABCLIA [id number] [place] [address] [place] Monocytes (Bld) [#/Vol] 1.44 10*3/uL High <0.87 [facility] Comment on above: Order Comment: Speci men Type: BLOOD SPECIMENOrdering Facility: [facility] Address: [address] [place], [place] [address] Performed By: #### 5 7021-8 ####[facility] LABCLIA [id number] [place] [address] [place] Monocytes/100 WBC (Bld) 7.0 % Normal [facility] Comment on above: Order Comment: Speci men Type: BLOOD SPECIMENOrdering Facility: [facility] Address: [address] [place], [place] [address] Performed By: #### 5 7021-8 ####[facility] LABCLIA [id number] [place] [address] [place] Neutrophils (Bld) [#/Vol] 13.30 10*3/uL High 1.45-7.50 [facility] Comment on above: Order Comment: Speci men Type: BLOOD SPECIMENOrdering Facility: [facility] Address: [address] [place], [place] [address] Performed By: #### 5 7021-8 ####[facility] LABCLIA [id number] [place] [address] [place] Neutrophils/100 WBC (Bld) 64.8 % Normal [facility] Comment on above: Order Comment: Speci men Type: BLOOD SPECIMENOrdering Facility: [facility] Address: [address] [place] [address] Performed By: #### 5 7021-8 ####[facility] LABCLIA [id number] [place] [address] [place] [facility] Nucleated RBC (Bld) [#/Vol] 10*3/uL Normal <0.01 [facility] Comment on above: Order Comment: Speci men Type: BLOOD SPECIMENOrdering Facility: [facility] Address: [address] Performed By: #### 5 7021-8 ####[facility] LABCLIA [id number] [place] [address] [place] Nucleated RBC/100 WBC (Bld) [Ratio] 0.0 /100 WBC Normal [facility] Comment on above: Order Comment: Speci men Type: BLOOD SPECIMENOrdering Facility: [facility] Address: [address] [place], [place] [address] Performed By: #### 5 7021-8 ####[facility] LABCLIA [id number] [place] [address] [place] Ovalocytes LM Ql (Bld) Few Normal [facility] Comment on above: Order Comment: Speci men Type: BLOOD SPECIMENOrdering Facility: [facility] Address: [address] [place] [address] Performed By: #### 5 7021-8 ####[facility] LABIA [id number] [place] [address] [place] Platelet mean volume (Bld) [Entitic vol] 9.4 fL Normal 9.0-12.7 [facility] Comment on above: Order Comment: Speci men Type: BLOOD SPECIMENOrdering Facility: [facility] Address: [address] [place] [address] Performed By: #### 5 7021-8 ####[facility] LABCLIA [id number] [id number] [address] [place] Platelets (Bld) [#/Vol] 116 10*3/uL Low 150-400 [facility] Comment on above: Order Comment: Speci men Type: BLOOD SPECIMENOrdering Facility: [facility] Address: [address] [address] Performed By: #### 5 7021-8 ####[facility] LABCLIA [id number] [place] [address] [place] Platelets Estimate (Bld) [#/Vol] Decreased Normal [facility] Comment on above: Order Comment: Speci men Type: BLOOD SPECIMENOrdering Facility: [facility] Address: [address] [place], [place] [id number] Performed By: #### 5 7021-8 ####[facility] LABCLIA [id number] [place] [address] [place] Polychromasia LM Ql (Bld) Slight Normal [facility] Comment on above: Order Comment: Speci men Type: BLOOD SPECIMENOrdering Facility: [facility] Address: [address] [place], [place] [address] Performed By: #### 5 7021-8 ####[facility] LABCLIA [id number] [place] [address] [place] RBC (Bld) [#/Vol] 3.42 10*6/uL Low 4.20-6.00 [facility] Comment on above: Order Comment: Speci men Type: BLOOD SPECIMENOrdering Facility: [facility] Address: [address] Performed By: #### 5 7021-8 ####[facility] LABCLIA [id number] [place] [address] [place] RED CELL MORPH Reviewed: see result s of individual morphologies Normal [facility] Comment on above: Order Comment: Speci men Type: BLOOD SPECIMENOrdering Facility: [facility] Address: [address] [place] [address] Performed By: #### 5 7021-8 ####[facility] LABCLIA [id number] [place] [address] [place] WBC (Bld) [#/Vol] 20.53 10*3/uL High 3.70-11.00 [facility] Comment on above: Order Comment: Speci men Type: BLOOD SPECIMENOrdering Facility: [facility] Address: [address] [address] Performed By: #### 5 7021-8 ####[facility] LABIA [id number] [place] [address] [place] WBC Left Shift Ql (Bld) Present Normal [facility] Comment on above: Order Comment: Speci men Type: BLOOD SPECIMENOrdering Facility: [facility] Address: [address] [place] [address] Performed By: #### 5 7021-8 ####[facility] LABIA [id number] [place] [address] [place] CMV DNA DETECTION AND QUANTo n 04-13-2023 CMV DNA DEVYN+probe Qn (P) Not detected Normal Not Detected [facility] Comment on above: Order Comment: Speci men Type: BLOOD SPECIMENOrdering Facility: [facility] Address: [address] [place] [address] Performed By: #### C MVQNT ####[facility] [id number] [place] [address] [place] CNCOon 04-13-2023 CNCO Letter Text Letter Text Normal [facility] CNDSon 04-13-2023 CNDS Normal [facility] CONSULT PROGon 04-13-2023 CONSULT PROG Normal [facility] Comprehensive metabolic 2000 panelon 04-13-2023 Albumin [Mass/Vol] 2.5 g/dL Low 3.9-4.9 [facility] Comment on above: Order Comment: Speci men Type: BLOOD SPECIMENOrdering Facility: [facility] Address: [address] [address] Performed By: #### 2 4323-8, , 2776-08 ####[facility] LABCLIA [id number] [place] [address] [place] ALP [Catalytic activity/Vol] 102 U/L Normal 38-113 [facility] Comment on above: Order Comment: Speci men Type: BLOOD SPECIMENOrdering Facility: [facility] Address: [address] [address] Performed By: #### 2 4323-8, , 2776-08 ####[facility] LABCLIA [id number] [place] [address] [place] ALT [Catalytic activity/Vol] 44 U/L Normal 10-54 [facility] Comment on above: Order Comment: Speci men Type: BLOOD SPECIMENOrdering Facility: [facility] Address: [address] [place] [address] Performed By: #### 2 4323-8, , 2776-08 ####[facility] LABIA [id number] [place] [address] [place] Anion gap [Moles/Vol] 7 mmol/L Low 9-18 [facility] Comment on above: Order Comment: Speci men Type: BLOOD SPECIMENOrdering Facility: [facility] Address: [address] Performed By: #### 2 4323-8, , 2776-08 ####[facility] LABIA [id number] [place] [address] [place] AST [Catalytic activity/Vol] 25 U/L Normal 14-40 [facility] Comment on above: Order Comment: Speci men Type: BLOOD SPECIMENOrdering Facility: [facility] Address: [address] [address] Performed By: #### 2 4323-8, 43178-5, 2776-08 ####[facility] LABCLIA [id number] [place] [address] [place] Bilirubin [Mass/Vol] 0.7 mg/dL Normal 0.2-1.3 [facility] Comment on above: Order Comment: Speci men Type: BLOOD SPECIMENOrdering Facility: [facility] Address: [address] Performed By: #### 2 4323-8, 50201-8, 2776-08 ####[facility] LABCLIA [id number] [place] [address] [place] Calcium [Mass/Vol] 8.1 mg/dL Low 8.5-10.2 [facility] Comment on above: Order Comment: Speci men Type: BLOOD SPECIMENOrdering Facility: [facility] Address: [address] Performed By: #### 2 4323-8, , 2776-08 ####[facility] LABIA [id number] [place] [address] [place] Chloride [Moles/Vol] 95 mmol/L Low 97-105 [facility] Comment on above: Order Comment: Speci men Type: BLOOD SPECIMENOrdering Facility: [facility] Address: [address] Performed By: #### 2 4323-8, , 2776-08 ####[facility] LABCLIA [id number] [place] [address] [place] CO2 [Moles/Vol] 26 mmol/L Normal 22-30 [facility] Comment on above: Order Comment: Speci men Type: BLOOD SPECIMENOrdering Facility: [facility] Address: [address] Performed By: #### 2 4323-8, , 2776-08 ####[facility] LABIA [id number] [place] [address] [place] Creatinine [Mass/Vol] 1.40 mg/dL High 0.73-1.22 [facility] Comment on above: Order Comment: Speci men Type: BLOOD SPECIMENOrdering Facility: [facility] Address: [address] [place] [address] Performed By: #### 2 4323-8, , 2776-08 ####[facility] LABIA [id number] [address] Creatinine and Glomerular filtration rate.predicted panel (S/P/Bld) 65 mL/min/1.73m??? Normal >=60 [facility] Comment on above: Order Comment: Rasta kennedy Type: BLOOD SPECIMENOrdering Facility: [facility] Address: [address] [place] [address] Result Comment: Karma mated Glomerular Filtration Rate [...] actual GFR. Performed By: #### 2 4323-8, , 2776-08 ####[facility] LABIA [id number] [place] [address] [place] Glucose [Mass/Vol] 93 mg/dL Normal 74-99 [facility] [place] Comment on above: Order Comment: Speci men Type: BLOOD SPECIMENOrdering Facility: [facility] Address: [address] [place] [address] Result Comment: The [place] [employer] (ADA) provides guidance for cutoff [...] Standards of Medical Care in Diabetes 2016, [employer]. Diabetes Care. 2016.39(Suppl 1). Performed By: #### 2 4323-8, , 2776-08 ####[facility] LABCLIA [id number] [place] [address] [place] Potassium [Moles/Vol] 5.0 mmol/L Normal 3.7-5.1 [facility] Comment on above: Order Comment: Speci men Type: BLOOD SPECIMENOrdering Facility: [facility] Address: [address] [place] [address] Performed By: #### 2 432-8, , 2776-08 ####[facility] LABIA [id number] [place] [address] [place] Protein [Mass/Vol] 4.1 g/dL Low 6.3-8.0 [facility] Comment on above: Order Comment: Speci men Type: BLOOD SPECIMENOrdering Facility: [facility] Address: [address] [place], [place] [address] Performed By: #### 2 4323-8, , 2776-08 ####[facility] LABCLIA [id number] [place] [address] [place] Sodium [Moles/Vol] 128 mmol/L Low 136-144 [facility] Comment on above: Order Comment: Speci men Type: BLOOD SPECIMENOrdering Facility: [facility] Address: [address] [place], [place] [address] Performed By: #### 2 4323-8, , 2776-08 ####[facility] LABIA [id number] [address] [address] [place] Urea nitrogen [Mass/Vol] 28 mg/dL High 9-24 [facility] Comment on above: Order Comment: Speci men Type: BLOOD SPECIMENOrdering Facility: [facility] Address: [address] [place] [address] Performed By: #### 2 4323-8, 48630-7, 2777-1 ####[facility] LABIA [id number] [address] [address] [place] Magnesium SerPl-mCncon 04-13 Magnesium [Mass/Vol] 2.1 mg/dL Normal 1.7-2.3 [facility] Comment on above: Order Comment: Speci men Type: BLOOD SPECIMENOrdering Facility: [facility] Address: [address] [place], [place] [address] Performed By: #### 2 4323-8, , 2777-1 ####[facility] [id number] [place] [id number] [place] NURSING PROGon 04-13-2023 NURSING PROG Normal [facility] NUTRITIONon 04-13-2023 NUTRITION Normal [facility] PT EDon 04-13-2023 PT ED Normal [facility] PT ED Normal [facility] PT ED Normal [facility] PT panel Coag (PPP)on 2022 INR Coag (PPP) [Relative time] 1.1 {INR} Normal 0.9-1.3 [facility] Comment on above: Order Comment: Speci men Type: BLOOD SPECIMENOrdering Facility: [facility] Address: [address] [place], [place] [address] Result Comment: Binta min K Antagonist (VKA) Therapeutic Range: INR 2 to 3 (Target INR of 2.5)Note: For patients treated with VKA drugs, such as warfarin, the [employer] 2012 Guideline recommends [...] al. Chest 2012, 141:7S-47SNishimura RA, et al. [facility] 2017, 70: 252-289 Performed By: #### 3 4528-0, 98006-6 ####[facility] LABCLIA [id number] [place] [address] [place] PT Coag (PPP) [Time] 11.1 s Normal 9.7-13.0 [facility] Comment on above: Order Comment: Speci men Type: BLOOD SPECIMENOrdering Facility: [facility] Address: [address] [place] [address] Performed By: #### 3 4528-0, 77404-6 ####[facility] LABCLIA [id number] [place] [address] [place] Phosphate SerPl-mCncon 04-13 Phosphate [Mass/Vol] 3.2 mg/dL Normal 2.7-4.8 [facility] Comment on above: Order Comment: Speci men Type: BLOOD SPECIMENOrdering Facility: [facility] Address: [address] [place], [place] [address] Performed By: #### 2 4323-8, 84546-5, 2777-1 ####[facility] LABCLIA [id number] [place] [address] [place] SOCIAL WORKon 04-13-2023 SOCIAL WORK Normal [facility] TYPE + SCREENon 04-13-2023 ABO A Normal [facility] Comment on above: Order Comment: Speci men Type: BLOOD SPECIMENOrdering Facility: [facility] Address: [address] [place] [address] Performed By: #### T SCR ####[facility] BANKCLIA [id number] [address] HISTORICAL AB SCR STATUS Negative Normal [facility] Comment on above: Order Comment: Speci men Type: BLOOD SPECIMENOrdering Facility: [facility] Address: [address] [place] [address] Performed By: #### T SCR ####[facility]LO[facility] BANKCLIA [id number] [address] [place] Rh Nom (Bld) Positive Normal [facility] Comment on above: Order Comment: Speci men Type: BLOOD SPECIMENOrdering Facility: [facility] Address: [address] [place] [address] Performed By: #### T SCR ####[facility]LO[facility] BANKCLIA [id number] [address] [place] TYPE AND SCREEN EXPIRATION 04/16/2023 23:59 Normal [facility] Comment on above: Order Comment: Speci men Type: BLOOD SPECIMENOrdering Facility: [facility] Address: [address] [place] [address] Performed By: #### T SCR ####[facility] BLOOD BANKCLIA [id number] [address] [place] Tacrolimus Bld-mCncon 2022 Tacrolimus (Bld) [Mass/Vol] 7.8 ng/mL Normal 5.0-20.0 [facility] Comment on above: Order Comment: Speci men Type: BLOOD SPECIMENOrdering Facility: [facility] Address: [address] [place] [address] Result Comment: Jennifer vidualized target levels for [...] situation. Test performed by chemiluminescent immunoassay using [employer] i. Performed By: #### 1 1253-2 ####[facility] LABCLIA [id number] [address] [place] aPTT PPPon 04-13-2023 aPTT Coag (PPP) [Time] 23.2 s Normal 23.0-32.4 [facility] Comment on above: Order Comment: Speci men Type: BLOOD SPECIMENOrdering Facility: [facility] Address: [address] [place] [address] Performed By: #### 3 4528-0, 14379-7 ####[facility] LABCLIA [id number] [address] [place] CBC W Auto Differential pane l (Bld)on 04-12-2023 Anisocytosis Ql (Bld) Present Normal [facility] Comment on above: Order Comment: Speci men Type: BLOOD SPECIMENOrdering Facility: [facility] Address: [address] [place] [address] Performed By: #### 5 7021-8 ####[facility] LABCLIA [id number] [place] [address] [place] Basophils (Bld) [#/Vol] 0.00 10*3/uL Normal <0.11 [facility] Comment on above: Order Comment: Speci men Type: BLOOD SPECIMENOrdering Facility: [facility] Address: [address] [place] [address] Performed By: #### 5 7021-8 ####[facility] LABCLIA [id number] [address] [place] Basophils/100 WBC (Bld) 0.0 % Normal [facility] Comment on above: Order Comment: Speci men Type: BLOOD SPECIMENOrdering Facility: [facility] Address: [address] Performed By: #### 5 7021-8 ####[facility] LABCLIA [id number] [place] [address] [place] Differential cell count method Nom (Bld) Manual Normal [facility] Comment on above: Order Comment: Speci men Type: BLOOD SPECIMENOrdering Facility: [facility] Address: [address] Performed By: #### 5 7021-8 ####[facility] LABCLIA [id number] [place] [address] [place] Eosinophils (Bld) [#/Vol] 3.58 10*3/uL High <0.46 [facility] Comment on above: Order Comment: Speci men Type: BLOOD SPECIMENOrdering Facility: [facility] Address: [address] [place], [place] [address] Performed By: #### 5 7021-8 ####[facility] LABCLIA [id number] [place] [address] [place] Eosinophils/100 WBC (Bld) 14.8 % Normal [facility] Comment on above: Order Comment: Speci men Type: BLOOD SPECIMENOrdering Facility: [facility] Address: [address] [place], [place] [address] Performed By: #### 5 7021-8 ####[facility] LABCLIA [id number] [place] [address] [place] Erythrocyte distribution width (RBC) [Ratio] 17.4 % High 11.5-15.0 [facility] Comment on above: Order Comment: Speci men Type: BLOOD SPECIMENOrdering Facility: [facility] Address: [address] [place], [place] [address] Performed By: #### 5 7021-8 ####[facility] LABCLIA [id number] [place] [address] [place] Hematocrit (Bld) [Volume fraction] 32.7 % Low 39.0-51.0 [facility] Comment on above: Order Comment: Speci men Type: BLOOD SPECIMENOrdering Facility: [facility] Address: [address] [place] [address] Performed By: #### 5 7021-8 ####[facility] LABIA [id number] [place] [address] [place] Hemoglobin (Bld) [Mass/Vol] 11.8 g/dL Low 13.0-17.0 [facility] Comment on above: Order Comment: Speci men Type: BLOOD SPECIMENOrdering Facility: [facility] Address: [address] [place] [address] Performed By: #### 5 7021-8 ####[facility] LABIA [id number] [place] [address] [place] Lymphocytes (Bld) [#/Vol] 1.26 10*3/uL Normal 1.00-4.00 [facility] Comment on above: Order Comment: Speci men Type: BLOOD SPECIMENOrdering Facility: [facility] Address: [address] [place] [address] Performed By: #### 5 7021-8 ####[facility] LABIA [id number] [place] [address] [place] Lymphocytes/100 WBC (Bld) 5.2 % Normal [facility] Comment on above: Order Comment: Speci men Type: BLOOD SPECIMENOrdering Facility: [facility] Address: [address] [place], [place] [address] Performed By: #### 5 7021-8 ####[facility] LABIA [id number] [place] [address] [place] MCH (RBC) [Entitic mass] 34.9 pg High 26.0-34.0 [facility] Comment on above: Order Comment: Speci men Type: BLOOD SPECIMENOrdering Facility: [facility] Address: [address] Performed By: #### 5 7021-8 ####[facility] LABCLIA [id number] [place] [address] [place] MCHC (RBC) [Mass/Vol] 36.1 g/dL High 30.5-36.0 [facility] Comment on above: Order Comment: Speci men Type: BLOOD SPECIMENOrdering Facility: [facility] Address: [address] [place], [place] [address] Performed By: #### 5 7021-8 ####[facility] LABCLIA [id number] [place] [address] [place] MCV (RBC) [Entitic vol] 96.7 fL Normal 80.0-100.0 [facility] Comment on above: Order Comment: Speci men Type: BLOOD SPECIMENOrdering Facility: [facility] Address: [address] [place], [place] [address] Performed By: #### 5 7021-8 ####[facility] LABIA [id number] [place] [address] [place] Monocytes (Bld) [#/Vol] 1.89 10*3/uL High <0.87 [facility] Comment on above: Order Comment: Speci men Type: BLOOD SPECIMENOrdering Facility: [facility] Address: [address] Performed By: #### 5 7021-8 ####[facility] LABIA [id number] [place] [address] [place] Monocytes/100 WBC (Bld) 7.8 % Normal [facility] Comment on above: Order Comment: Speci men Type: BLOOD SPECIMENOrdering Facility: [facility] Address: [address] [place], [place] [address] Performed By: #### 5 7021-8 ####[facility] LABCLIA [id number] [place] [address] [place] MYELO% 2.6 % Normal [facility] Comment on above: Order Comment: Speci men Type: BLOOD SPECIMENOrdering Facility: [facility] Address: [address] [place] [address] Performed By: #### 5 7021-8 ####[facility] LABCLIA [id number] [place] [address] [place] Neutrophils (Bld) [#/Vol] 16.82 10*3/uL High 1.45-7.50 [facility] Comment on above: Order Comment: Speci men Type: BLOOD SPECIMENOrdering Facility: [facility] Address: [address] [place] [address] Performed By: #### 5 7021-8 ####[facility] LABCLIA [id number] [place] [address] [place] Neutrophils/100 WBC (Bld) 69.6 % Normal [facility] Comment on above: Order Comment: Speci men Type: BLOOD SPECIMENOrdering Facility: [facility] Address: [address] [place] [address] Performed By: #### 5 7021-8 ####[facility] LABCLIA [id number] [place] [address] [place] Nucleated RBC (Bld) [#/Vol] 10*3/uL Normal <0.01 [facility] Comment on above: Order Comment: Speci men Type: BLOOD SPECIMENOrdering Facility: [facility] Address: [address] [place] [phone] Performed By: #### 5 7021-8 ####[facility] LABCLIA [id number] [place] [address] [place] Nucleated RBC/100 WBC (Bld) [Ratio] 0.0 /100 WBC Normal [facility] Comment on above: Order Comment: Speci men Type: BLOOD SPECIMENOrdering Facility: [facility] Address: [address] [place], [place] [address] Performed By: #### 5 7021-8 ####[facility] LABIA [id number] [place] [address] [place] Ovalocytes LM Ql (Bld) Few Normal [facility] Comment on above: Order Comment: Speci men Type: BLOOD SPECIMENOrdering Facility: [facility] Address: [address] Performed By: #### 5 7021-8 ####[facility] LABIA [id number] [place] [address] [place] Platelet mean volume (Bld) [Entitic vol] 10.7 fL Normal 9.0-12.7 [facility] Comment on above: Order Comment: Speci men Type: BLOOD SPECIMENOrdering Facility: [facility] Address: [address] Performed By: #### 5 7021-8 ####[facility] [id number] [place] [address] [place] Platelets (Bld) [#/Vol] 97 10*3/uL Low 150-400 [facility] Comment on above: Order Comment: Speci men Type: BLOOD SPECIMENOrdering Facility: [facility] Address: [address] [place] [address] Result Comment: No c lot detected. Performed By: #### 5 7021-8 ####[facility] LABIA [id number] [place] [address] [place] Platelets Estimate (Bld) [#/Vol] Decreased Normal [facility] Comment on above: Order Comment: Speci men Type: BLOOD SPECIMENOrdering Facility: [facility] Address: [address] Performed By: #### 5 7021-8 ####[facility] LABCLIA [id number] [place] [address] [place] Polychromasia LM Ql (Bld) Slight Normal [facility] Comment on above: Order Comment: Speci men Type: BLOOD SPECIMENOrdering Facility: [facility] Address: [address] [place] [phone] Performed By: #### 5 7021-8 ####[facility] LABCLIA [id number] [address] OF [facility] RBC (Bld) [#/Vol] 3.38 10*6/uL Low 4.20-6.00 [facility] Comment on above: Order Comment: Speci men Type: BLOOD SPECIMENOrdering Facility: [facility] Address: [address] [place], [place] [address] Performed By: #### 5 7021-8 ####[facility] LABCLIA [id number] [address] [place] RBC FRAGMENTS Few Abnormal None Seen [facility] Comment on above: Order Comment: Speci men Type: BLOOD SPECIMENOrdering Facility: [facility] Address: [address] [place] [phone] Performed By: #### 5 7021-8 ####[facility] LABIA [id number] [place] [address] [place] RED CELL MORPH Reviewed: see result s of individual morphologies Normal [facility] Comment on above: Order Comment: Speci men Type: BLOOD SPECIMENOrdering Facility: [facility] Address: [address] [place] [phone] Performed By: #### 5 7021-8 ####[facility] LABCLIA [id number] [place] [address] [place] WBC (Bld) [#/Vol] 24.17 10*3/uL High 3.70-11.00 [facility] Comment on above: Order Comment: Speci men Type: BLOOD SPECIMENOrdering Facility: [facility] Address: [address] [place] [address] Performed By: #### 5 7021-8 ####[facility] LABCLIA [id number] [place] [address] [place] WBC Left Shift Ql (Bld) Present Normal [facility] Comment on above: Order Comment: Speci men Type: BLOOD SPECIMENOrdering Facility: [facility] Address: [address] [place] [address] Performed By: #### 5 7021-8 ####[facility] LABCLIA [id number] [place] [address] [place] Comprehensive metabolic 2000 panelon 04-12-2023 Albumin [Mass/Vol] 2.6 g/dL Low 3.9-4.9 [facility] Comment on above: Order Comment: Speci men Type: BLOOD SPECIMENOrdering Facility: [facility] Address: [address] [place] [address] Performed By: #### 2 4323-8, 43019-7, 2777-1 ####[facility] LABCLIA [id number] [place] [address] [place] ALP [Catalytic activity/Vol] 105 U/L Normal 38-113 [facility] Comment on above: Order Comment: Speci men Type: BLOOD SPECIMENOrdering Facility: [facility] Address: [address] Performed By: #### 2 4323-8, 61691-7, 2777-1 ####[facility] LABCLIA [id number] [address] [place] ALT [Catalytic activity/Vol] 50 U/L Normal 10-54 [facility] Comment on above: Order Comment: Speci men Type: BLOOD SPECIMENOrdering Facility: [facility] Address: [address] Performed By: #### 2 4323-8, 12646-5, 2776- ####[facility] LABCLIA [id number] [place] [address] [place] Anion gap [Moles/Vol] 9 mmol/L Normal 9-18 [facility] Comment on above: Order Comment: Speci men Type: BLOOD SPECIMENOrdering Facility: [facility] Address: [address] [place] [address] Performed By: #### 2 4323-8, 00801-8, 2776- ####[facility] LABIA [id number] [place] [address] [place] AST [Catalytic activity/Vol] 37 U/L Normal 14-40 [facility] Comment on above: Order Comment: Speci men Type: BLOOD SPECIMENOrdering Facility: [facility] Address: [address] [place] [address] Performed By: #### 2 4323-8, 40671-9, 2776- ####[facility] LABIA [id number] [place] [address] [place] Bilirubin [Mass/Vol] 0.9 mg/dL Normal 0.2-1.3 [facility] Comment on above: Order Comment: Speci men Type: BLOOD SPECIMENOrdering Facility: [facility] Address: [address] Performed By: #### 2 4323-8, 80635-4, 2776-08 ####[facility] LABIA [id number] [place] [address] [place] Calcium [Mass/Vol] 7.9 mg/dL Low 8.5-10.2 [facility] [place] Comment on above: Order Comment: Speci men Type: BLOOD SPECIMENOrdering Facility: [facility] Address: [address] Performed By: #### 2 4323-8, 76324-9, 2776-08 ####[facility] LABCLIA [id number] [place] [address] [place] Chloride [Moles/Vol] 95 mmol/L Low 97-105 [facility] Comment on above: Order Comment: Speci men Type: BLOOD SPECIMENOrdering Facility: [facility] Address: [address] [place] [address] Performed By: #### 2 4323-8, , 2776-08 ####[facility] LABIA [id number] [place] [address] [place] CO2 [Moles/Vol] 24 mmol/L Normal 22-30 [facility] Comment on above: Order Comment: Speci men Type: BLOOD SPECIMENOrdering Facility: [facility] Address: [address] [place] [address] Performed By: #### 2 4323-8, , 2776-08 ####[facility] LABIA [id number] [place] [address] [place] Creatinine [Mass/Vol] 1.23 mg/dL High 0.73-1.22 [facility] Comment on above: Order Comment: Speci men Type: BLOOD SPECIMENOrdering Facility: [facility] Address: [address] [place] [address] Performed By: #### 2 4323-8, , 2776-08 ####[facility] LABIA [id number] [place] [address] [place] Creatinine and Glomerular filtration rate.predicted panel (S/P/Bld) 76 mL/min/1.73m??? Normal >=60 [facility] Comment on above: Order Comment: Speci men Type: BLOOD SPECIMENOrdering Facility: [facility] Address: [address] [place] [address] Result Comment: Karma mated Glomerular Filtration Rate [...] actual GFR. Performed By: #### 2 4323-8, , 2776-08 ####[facility] LABCLIA [id number] [place] [address] [place] Glucose [Mass/Vol] 81 mg/dL Normal 74-99 [facility] [place] Comment on above: Order Comment: Rasta kennedy Type: BLOOD SPECIMENOrdering Facility: [facility] Address: [address] [place], [place] [address] Result Comment: The [place] Diabetes [employer] (ADA) provides guidance for cutoff [...] Standards of Medical Care in Diabetes 2016, [place] [employer]. Diabetes Care. 2016.39(Suppl 1). Performed By: #### 2 4323-8, , 2776-08 ####[facility] LABIA [id number] [address] [address] [place] Potassium [Moles/Vol] 4.8 mmol/L Normal 3.7-5.1 [facility] Comment on above: Order Comment: Rasta kennedy Type: BLOOD SPECIMENOrdering Facility: [facility] Address: [address] [place] [address] Performed By: #### 2 4323-8, , 2776-08 ####[facility] LABCLIA [id number] [place] [address] [place] Protein [Mass/Vol] 4.3 g/dL Low 6.3-8.0 [facility] [place] Comment on above: Order Comment: Speci men Type: BLOOD SPECIMENOrdering Facility: [facility] Address: [address] [place] [address] Performed By: #### 2 4323-8, , 2776- ####[facility] LABCLIA [id number] [place] [address] [place] Sodium [Moles/Vol] 128 mmol/L Low 136-144 [facility] [place] Comment on above: Order Comment: Speci men Type: BLOOD SPECIMENOrdering Facility: [facility] Address: [address] [place] [address] Performed By: #### 2 4323-8, , 2776-08 ####[facility] LABCLIA [id number] [place] [address] [place] Urea nitrogen [Mass/Vol] 34 mg/dL High 9-24 [facility] Comment on above: Order Comment: Speci men Type: BLOOD SPECIMENOrdering Facility: [facility] Address: [address] [place] [address] Performed By: #### 2 4323-8, , 2776-08 ####[facility] LABCLIA [id number] [place] [id number] [place] Magnesium SerPl-mCncon 04-12 Magnesium [Mass/Vol] 2.3 mg/dL Normal 1.7-2.3 [facility] Comment on above: Order Comment: Speci men Type: BLOOD SPECIMENOrdering Facility: [facility] Address: [address] [place] [address] Performed By: #### 2 4323-8, , 2776- ####[facility] LABCLIA [id number] [place] [id number] [place] PT panel Coag (PPP)on 2022 INR Coag (PPP) [Relative time] 1.1 {INR} Normal 0.9-1.3 [facility] Comment on above: Order Comment: Speci brent Type: BLOOD SPECIMENOrdering Facility: [facility] Address: [address] [place] [address] Result Comment: Binta min K Antagonist (VKA) Therapeutic Range: INR 2 to 3 (Target INR of 2.5)Note: For patients treated with VKA drugs, such as warfarin, the [employer] 2012 Guideline recommends [...] al. Chest 2012, 141:7S-47SNishimura RA, et al. [facility] 2017, 70: 252-289 Performed By: #### 3 4528-0, 70635-7 ####[facility] LABIA [id number] [place] [id number] [place] PT Coag (PPP) [Time] 11.2 s Normal 9.7-13.0 [facility] Comment on above: Order Comment: Yuryi men Type: BLOOD SPECIMENOrdering Facility: [facility] Address: [address] [place] [id number] Performed By: #### 3 4528-0, 90750-5 ####[facility] LABIA [id number] [place] [address] [place] Phosphate SerPl-mCncon 04-12 Phosphate [Mass/Vol] 2.7 mg/dL Normal 2.7-4.8 [facility] Comment on above: Order Comment: Rasta kennedy Type: BLOOD SPECIMENOrdering Facility: [facility] Address: [address] [place] [address] Performed By: #### 2 4323-8, 29530-7, 2777-1 ####[facility] LABCLIA [id number] [place] [address] [place] Tacrolimus Bld-nc 2022 Tacrolimus (Bld) [Mass/Vol] 8.1 ng/mL Normal 5.0-20.0 [facility] Comment on above: Order Comment: Rasta kennedy Type: BLOOD SPECIMENOrdering Facility: [facility] Address: [address] [place] [address] Result Comment: Jennifer vidualized target levels for [...] Alinity i. Performed By: #### 1 1253-2 ####[facility] [id number] [place] [address] [place] aPTT PPPon 04-12-2023 aPTT Coag (PPP) [Time] 23.4 s Normal 23.0-32.4 [facility] Comment on above: Order Comment: Rasta kennedy Type: BLOOD SPECIMENOrdering Facility: [facility] Address: [address] [place] [address] Performed By: #### 3 4528-0, 87906-6 ####[facility] LABIA [id number] [place] [address] [place] CBC W Auto Differential pane l (Bld)on 04-11-2023 Anisocytosis Ql (Bld) Present Normal [facility] Comment on above: Order Comment: Speci men Type: BLOOD SPECIMENOrdering Facility: [facility] Address: [address] [place] [address] Performed By: #### 5 7021-8 ####[facility] LABCLIA [id number] [place] [address] [place] Basophils (Bld) [#/Vol] 0.00 10*3/uL Normal <0.11 [facility] Comment on above: Order Comment: Speci men Type: BLOOD SPECIMENOrdering Facility: [facility] Address: [address] [place] [address] Performed By: #### 5 7021-8 ####[facility] LABCLIA [id number] [place] [address] [place] Basophils/100 WBC (Bld) 0.0 % Normal [facility] Comment on above: Order Comment: Speci men Type: BLOOD SPECIMENOrdering Facility: [facility] Address: [address] [place] [address] Performed By: #### 5 7021-8 ####[facility] LABCLIA [id number] [place] [address] [place] Differential cell count method Nom (Bld) Manual Normal [facility] Comment on above: Order Comment: Speci men Type: BLOOD SPECIMENOrdering Facility: [facility] Address: [address] [place], [place] [address] Performed By: #### 5 7021-8 ####[facility] LABCLIA [id number] [place] [address] [place] Eosinophils (Bld) [#/Vol] 2.88 10*3/uL High <0.46 [facility] Comment on above: Order Comment: Speci men Type: BLOOD SPECIMENOrdering Facility: [facility] Address: [address] [place] [address] Performed By: #### 5 7021-8 ####[facility] LABCLIA [id number] [place] [address] [place] Eosinophils/100 WBC (Bld) 12.8 % Normal [facility] Comment on above: Order Comment: Speci men Type: BLOOD SPECIMENOrdering Facility: [facility] Address: [address] [place], [place] [address] Performed By: #### 5 7021-8 ####[facility] LABCLIA [id number] [place] [address] [place] Erythrocyte distribution width (RBC) [Ratio] 16.2 % High 11.5-15.0 [facility] Comment on above: Order Comment: Speci men Type: BLOOD SPECIMENOrdering Facility: [facility] Address: [address] [place], [place] [address] Performed By: #### 5 7021-8 ####[facility] LABIA [id number] [place] [address] [place] Hematocrit (Bld) [Volume fraction] 32.9 % Low 39.0-51.0 [facility] Comment on above: Order Comment: Speci men Type: BLOOD SPECIMENOrdering Facility: [facility] Address: [address] [place], [place] [address] Performed By: #### 5 7021-8 ####[facility] LABIA [id number] [place] [address] [place] Hemoglobin (Bld) [Mass/Vol] 12.0 g/dL Low 13.0-17.0 [facility] Comment on above: Order Comment: Speci men Type: BLOOD SPECIMENOrdering Facility: [facility] Address: [address] Performed By: #### 5 7021-8 ####[facility] LABIA [id number] [address] [place] Lymphocytes (Bld) [#/Vol] 0.36 10*3/uL Low 1.00-4.00 [facility] Comment on above: Order Comment: Speci men Type: BLOOD SPECIMENOrdering Facility: [facility] Address: [address] [place] [address] Performed By: #### 5 7021-8 ####[facility] LABIA [id number] [address] Lymphocytes/100 WBC (Bld) 1.6 % Normal [facility] Comment on above: Order Comment: Speci men Type: BLOOD SPECIMENOrdering Facility: [facility] Address: [address] [place] [address] Performed By: #### 5 7021-8 ####[facility] LABIA [id number] [address] [place] MCH (RBC) [Entitic mass] 34.7 pg High 26.0-34.0 [facility] Comment on above: Order Comment: Speci men Type: BLOOD SPECIMENOrdering Facility: [facility] Address: [address] [place], [place] [address] Performed By: #### 5 7021-8 ####[facility] LABIA [id number] [address] [place] OF [facility] MCHC (RBC) [Mass/Vol] 36.5 g/dL High 30.5-36.0 [facility] Comment on above: Order Comment: Speci men Type: BLOOD SPECIMENOrdering Facility: [facility] Address: [address] [place], [place] [address] Performed By: #### 5 7021-8 ####[facility] LABIA [id number] [address] [place] MCV (RBC) [Entitic vol] 95.1 fL Normal 80.0-100.0 [facility] Comment on above: Order Comment: Speci men Type: BLOOD SPECIMENOrdering Facility: [facility] Address: [address] Performed By: #### 5 7021-8 ####[facility] LABCLIA [id number] [place] [address] [place] Monocytes (Bld) [#/Vol] 1.62 10*3/uL High <0.87 [facility] Comment on above: Order Comment: Speci men Type: BLOOD SPECIMENOrdering Facility: [facility] Address: [address] Performed By: #### 5 7021-8 ####[facility] LABCLIA [id number] [place] [address] [place] Monocytes/100 WBC (Bld) 7.2 % Normal [facility] Comment on above: Order Comment: Speci men Type: BLOOD SPECIMENOrdering Facility: [facility] Address: [address] Performed By: #### 5 7021-8 ####[facility] LABCLIA [id number] [place] [address] [place] Neutrophils (Bld) [#/Vol] 17.62 10*3/uL High 1.45-7.50 [facility] Comment on above: Order Comment: Speci men Type: BLOOD SPECIMENOrdering Facility: [facility] Address: [address] Performed By: #### 5 7021-8 ####[facility] LABCLIA [id number] [place] [address] [place] Neutrophils/100 WBC (Bld) 78.4 % Normal [facility] Comment on above: Order Comment: Speci men Type: BLOOD SPECIMENOrdering Facility: [facility] Address: [address] Performed By: #### 5 7021-8 ####[facility] LABCLIA [id number] [place] [address] [place] Nucleated RBC (Bld) [#/Vol] 10*3/uL Normal <0.01 [facility] Comment on above: Order Comment: Speci men Type: BLOOD SPECIMENOrdering Facility: [facility] Address: [address] [place] [address] Performed By: #### 5 7021-8 ####[facility] LABIA [id number] [place] [address] [place] Nucleated RBC/100 WBC (Bld) [Ratio] 0.0 /100 WBC Normal [facility] Comment on above: Order Comment: Speci men Type: BLOOD SPECIMENOrdering Facility: [facility] Address: [address] [place] [address] Performed By: #### 5 7021-8 ####[facility] LABIA [id number] [place] [address] [place] Ovalocytes LM Ql (Bld) Few Normal [facility] Comment on above: Order Comment: Speci men Type: BLOOD SPECIMENOrdering Facility: [facility] Address: [address] [place], [place] [address] Performed By: #### 5 7021-8 ####[facility] LABIA [id number] [place] [address] [place] Platelet mean volume (Bld) [Entitic vol] 10.8 fL Normal 9.0-12.7 [facility] Comment on above: Order Comment: Speci men Type: BLOOD SPECIMENOrdering Facility: [facility] Address: [address] [place], [place] [address] Performed By: #### 5 7021-8 ####[facility] LABCLIA [id number] [place] [address] [place] Platelets (Bld) [#/Vol] 70 10*3/uL Low 150-400 [facility] Comment on above: Order Comment: Speci men Type: BLOOD SPECIMENOrdering Facility: [facility] Address: [address] Result Comment: No c lot detected. Performed By: #### 5 7021-8 ####[facility] LABCLIA [id number] [place] [address] [place] Platelets Estimate (Bld) [#/Vol] Decreased Normal [facility] Comment on above: Order Comment: Speci men Type: BLOOD SPECIMENOrdering Facility: [facility] Address: [address] [place] [address] Performed By: #### 5 7021-8 ####[facility] LABCLIA [id number] [place] [address] [place] Polychromasia LM Ql (Bld) Slight Normal [facility] Comment on above: Order Comment: Speci men Type: BLOOD SPECIMENOrdering Facility: [facility] Address: [address] Performed By: #### 5 7021-8 ####[facility] LABCLIA [id number] [place] [address] [place] RBC (Bld) [#/Vol] 3.46 10*6/uL Low 4.20-6.00 [facility] Comment on above: Order Comment: Speci men Type: BLOOD SPECIMENOrdering Facility: [facility] Address: [address] Performed By: #### 5 7021-8 ####[facility] LABCLIA [id number] [place] [address] [place] RED CELL MORPH Reviewed: see result s of individual morphologies Normal [facility] Comment on above: Order Comment: Speci men Type: BLOOD SPECIMENOrdering Facility: [facility] Address: [address] Performed By: #### 5 7021-8 ####[facility] LABCLIA [id number] [place] [address] [place] WBC (Bld) [#/Vol] 22.47 10*3/uL High 3.70-11.00 [facility] Comment on above: Order Comment: Speci men Type: BLOOD SPECIMENOrdering Facility: [facility] Address: [address] [place] [address] Performed By: #### 5 7021-8 ####[facility] LABIA [id number] [place] [address] [place] CONSULT PROGon 04-11-2023 CONSULT PROG Normal [facility] Comprehensive metabolic 2000 panelon 04-11-2023 Albumin [Mass/Vol] 2.6 g/dL Low 3.9-4.9 [facility] Comment on above: Order Comment: Speci men Type: BLOOD SPECIMENOrdering Facility: [facility] Address: [address] [place], [place] [address] Performed By: #### 2 4323-8, LIPNF, 97473-5, 2777-1 ####[facility] LABIA [id number] [place] [address] [place] ALP [Catalytic activity/Vol] 121 U/L High 38-113 [facility] Comment on above: Order Comment: Speci men Type: BLOOD SPECIMENOrdering Facility: [facility] Address: [address] [place], [place] [address] Performed By: #### 2 4323-8, LIPNF, 13493-4, 2777-1 ####[facility] LABIA [id number] [place] [address] [place] ALT [Catalytic activity/Vol] 54 U/L Normal 10-54 [facility] Comment on above: Order Comment: Speci men Type: BLOOD SPECIMENOrdering Facility: [facility] Address: [address] [place], [place] [address] Performed By: #### 2 4323-8, LIPNF, , 2776-08 ####[facility] LABCLIA [id number] [place] [address] [place] Anion gap [Moles/Vol] 7 mmol/L Low 9-18 [facility] Comment on above: Order Comment: Speci men Type: BLOOD SPECIMENOrdering Facility: [facility] Address: [address] [place] [address] Performed By: #### 2 4323-8, LIPNF, , 2776-08 ####[facility] LABCLIA [id number] [place] [address] [place] AST [Catalytic activity/Vol] 37 U/L Normal 14-40 [facility] Comment on above: Order Comment: Speci men Type: BLOOD SPECIMENOrdering Facility: [facility] Address: [address] [place] [address] Performed By: #### 2 4323-8, LIPNF, , 2776-08 ####[facility] LABCLIA [id number] [place] [address] [place] Bilirubin [Mass/Vol] 1.1 mg/dL Normal 0.2-1.3 [facility] Comment on above: Order Comment: Speci men Type: BLOOD SPECIMENOrdering Facility: [facility] Address: [address] [place], [place] [address] Performed By: #### 2 4323-8, LIPNF, , 2776-08 ####[facility] LABCLIA [id number] [place] [address] [place] Calcium [Mass/Vol] 7.6 mg/dL Low 8.5-10.2 [facility] Comment on above: Order Comment: Speci men Type: BLOOD SPECIMENOrdering Facility: [facility] Address: [address] [place], [place] [address] Performed By: #### 2 4323-8, LIPNF, , 2776-08 ####[facility] LABCLIA [id number] [place] [address] [place] Chloride [Moles/Vol] 95 mmol/L Low 97-105 [facility] Comment on above: Order Comment: Speci men Type: BLOOD SPECIMENOrdering Facility: [facility] Address: [address] [place] [address] Performed By: #### 2 4323-8, LIPNF, , 2776-08 ####[facility] LABCLIA [id number] [place] [address] [place] CO2 [Moles/Vol] 23 mmol/L Normal 22-30 [facility] Comment on above: Order Comment: Speci men Type: BLOOD SPECIMENOrdering Facility: [facility] Address: [address] [place] [address] Performed By: #### 2 4323-8, LIPNF, , 2776-08 ####[facility] LABIA [id number] [place] [address] [place] Creatinine [Mass/Vol] 1.48 mg/dL High 0.73-1.22 [facility] Comment on above: Order Comment: Speci men Type: BLOOD SPECIMENOrdering Facility: [facility] Address: [address] [place], [place] [address] Performed By: #### 2 4323-8, LIPNF, , 2776-08 ####[facility] LABIA [id number] [place] [address] [place] Creatinine and Glomerular filtration rate.predicted panel (S/P/Bld) 61 mL/min/1.73m??? Normal >=60 [facility] Comment on above: Order Comment: Speci men Type: BLOOD SPECIMENOrdering Facility: [facility] Address: [address] [place], [place] [address] Result Comment: Karma mated Glomerular Filtration Rate [...] By: #### 2 4323-8, LIPSEBASTIAN, , 2776-08 ####[facility] LABCLIA [id number] [place] [address] [place] Glucose [Mass/Vol] 137 mg/dL High 74-99 [facility] Comment on above: Order Comment: Rasta kennedy Type: BLOOD SPECIMENOrdering Facility: [facility] Address: [address] [place], [place] [address] Result Comment: The [employer] (ADA) provides guidance for cutoff [...] Standards of Medical Care in Diabetes 2016, [place] [employer]. Diabetes Care. 2016.39(Suppl 1). Performed By: #### 2 4323-8, LIPNF, , 2776-08 ####[facility] LABCLIA [id number] [address] [address] [place] Potassium [Moles/Vol] 4.1 mmol/L Normal 3.7-5.1 [facility] Comment on above: Order Comment: Rasta kennedy Type: BLOOD SPECIMENOrdering Facility: [facility] Address: [address] [place] [address] Performed By: #### 2 4323-8, LIPNF, , 2776-08 ####[facility] LABIA [id number] [place] [address] [place] Protein [Mass/Vol] 4.4 g/dL Low 6.3-8.0 [facility] Comment on above: Order Comment: Speci men Type: BLOOD SPECIMENOrdering Facility: [facility] Address: [address] [place] [address] Performed By: #### 2 4323-8, LIPNF, , 2776-08 ####[facility] [id number] [place] [address] [place] Sodium [Moles/Vol] 125 mmol/L Low 136-144 [facility] Comment on above: Order Comment: Speci men Type: BLOOD SPECIMENOrdering Facility: [facility] Address: [address] [place] [address] Performed By: #### 2 4323-8, LIPNF, , 2776-08 ####[facility] [id number] [place] [address] [place] Urea nitrogen [Mass/Vol] 52 mg/dL High 9-24 [facility] Comment on above: Order Comment: Speci men Type: BLOOD SPECIMENOrdering Facility: [facility] Address: [address] [place] [address] Performed By: #### 2 4323-8, LIPNF, , 2776-08 ####[facility] [id number] [place] [address] [place] HbA1c (Bld)on 04-11-2023 Average glucose Estimated from glycated hemoglobin (Bld) [Mass/Vol] 68 mg/dL Normal [facility] Comment on above: Order Comment: Speci men Type: BLOOD SPECIMENOrdering Facility: [facility] Address: [address] [place], [place] [address] Result Comment: eAG: (Estimated average glucose) is a calculated value from HgbA1c and is claims service representative of the average blood glucose level in the last 2-3 month period. Performed By: #### 5 5454-3 ####[facility] LABCLIA [id number] [address] [place] HbA1c (Bld) [Mass fraction] 4.0 % Low 4.3-5.6 [facility] Comment on above: Order Comment: Rasta kennedy Type: BLOOD SPECIMENOrdering Facility: [facility] Address: [address] [place] [address] Result Comment: Amer [place] Diabetes Association guidelines indicate that patients with HgbA1c in the range 5.7-6.4% are at increased risk for development of diabetes, and intervention by lifestyle modification may be beneficial. HgbA1c greater or equal to 6.5% is considered diagnostic of diabetes. Performed By: #### 5 5454-3 ####[facility] LABIA [id number] [address] OF [facility] LIPID PANEL, NONFASTINGon Cholesterol [Mass/Vol] 92 mg/dL Normal <200 [facility] Comment on above: Order Comment: Rasta kennedy Type: BLOOD SPECIMENOrdering Facility: [facility] Address: [address] [place] [address] Result Comment: <200 mg/dL, Desirable 200-239 mg/dL, Borderline high>239 mg/dL, High Performed By: #### 2 4323-8, LIPNF, 14532-9, 2777-1 ####[facility] LABCLIA [id number] [address] [place] HDL CHOLESTEROL, NF 32 mg/dL Low >39 [facility] Comment on above: Order Comment: Rasta kennedy Type: BLOOD SPECIMENOrdering Facility: [facility] Address: [address] [place] [address] Result Comment: 40-5 9 mg/dL, Acceptable>59 mg/dL, High: Negative risk factor for coronary heart disease<40 mg/dL, Low: Positive risk factor for coronary heart disease Performed By: #### 2 4323-8, LIPNF, 16219-2, 2776- ####[facility] LABCLIA [id number] [address] STATES OF [facility] LDL CHOLESTEROL, NF 38 mg/dL Normal <100 [facility] Comment on above: Order Comment: Speci men Type: BLOOD SPECIMENOrdering Facility: [facility] Address: [address] [place] [address] Result Comment: <100 mg/dL, Optimal 100-129 mg/dL, Near optimal/above optimal 130-159 mg/dL, Borderline high 160-189 mg/dL, High>189 mg/dL, Very highSecondary prevention optimal LDL Cholesterol levels are recommended to be < 70 mg/dL Performed By: #### 2 4323-8, LIPNF, , 2776-08 ####[facility] LABIA [id number] [address] LDL/HDL RATIO, NF 1.19 mg/dL Normal <2.54 [facility] Comment on above: Order Comment: Speci men Type: BLOOD SPECIMENOrdering Facility: [facility] Address: [address] [place] [address] Result Comment: Refe rence:1. National Cholesterol Education Program ATP III Guideline At-A-Glance Quick Desk Reference: National Heart, Lung, and Blood Shepherd. National Institutes of Health. 2001: NIH Publication No. 01-3305.2. An International Atherosclerosis Society position paper: global recommendations for the management of dyslipidemia: executive summary, Atherosclerosis. 2014: 232(2):410-413. Performed By: #### 2 4323-8, LIPNF, 18055-2, 2776- ####[facility] LABCLIA [id number] [address] [place] NON HDL CHOL, NF 60 mg/dL Normal <130 [facility] Comment on above: Order Comment: Speci men Type: BLOOD SPECIMENOrdering Facility: [facility] Address: [address] [place] [address] Result Comment: <130 mg/dL, Optimal 130-159 mg/dL, Near optimal/above optimal 160-189 mg/dL, Borderline high 190-219 mg/dL, High>219 mg/dL, Very highSecondary prevention optimal non HDL Cholesterol levels are recommended to be <100 mg/dL Performed By: #### 2 4323-8, LIPNF, , 2776- ####[facility] LABCLIA [id number] [place] [address] [place] T CHOL/HDL RATIO NF 2.88 mg/dL Normal <5.10 [facility] Comment on above: Order Comment: Speci men Type: BLOOD SPECIMENOrdering Facility: [facility] Address: [address] [place] [address] Performed By: #### 2 4323-8, LIPNF, , 2776-08 ####[facility] LABCLIA [id number] [address] OF [facility] TRIGLYCERIDES, NF 108 mg/dL Normal <150 [facility] Comment on above: Order Comment: Speci men Type: BLOOD SPECIMENOrdering Facility: [facility] Address: [address] [place] [address] Result Comment: <150 mg/dL, Normal 150-199 mg/dL, Borderline high 200-499 mg/dL, High>499 mg/dL, Very high Performed By: #### 2 4323-8, LIPNF, , 2776-08 ####[facility] LABCLIA [id number] [address] [place] VLDL CHOLESTEROL, NF 22 mg/dL Normal <30 [facility] Comment on above: Order Comment: Speci men Type: BLOOD SPECIMENOrdering Facility: [facility] Address: [address] [place] [address] Performed By: #### 2 4323-8, LIPNF, , 2776-08 ####[facility] LABCLIA [id number] [place] [id number] [place] [facility] Magnesium SerPl-mCncon 04-11 Magnesium [Mass/Vol] 2.6 mg/dL High 1.7-2.3 [facility] Comment on above: Order Comment: Speci men Type: BLOOD SPECIMENOrdering Facility: [facility] Address: [address] [place] [address] Performed By: #### 2 4323-8, LIPNF, , 2776-08 ####[facility] LABCLIA [id number] [address] OF [facility] PT panel Coag (PPP)on 2022 INR Coag (PPP) [Relative time] 1.1 {INR} Normal 0.9-1.3 [facility] Comment on above: Order Comment: Rasta kennedy Type: BLOOD SPECIMENOrdering Facility: [facility] Address: [address] [place] [address] Result Comment: Binta min K Antagonist (VKA) Therapeutic Range: INR 2 to 3 (Target INR of 2.5)Note: For patients treated with VKA drugs, such as warfarin, the [place] College [employer] 2012 Guideline recommends [...] al. Chest 2012, 141:7S-47SSindhu FAUST, et al. [facility] 2017, 70: 252-289 Performed By: #### 3 4528-0, 19649-3 ####[facility] LABCLIA [id number] [place] [address] [place] PT Coag (PPP) [Time] 11.2 s Normal 9.7-13.0 [facility] Comment on above: Order Comment: Speci men Type: BLOOD SPECIMENOrdering Facility: [facility] Address: [address] [place] [address] Performed By: #### 3 4528-0, 84899-6 ####[facility] LABCLIA [id number] [place] [address] [place] [facility]11 Phosphate [Mass/Vol] 2.7 mg/dL Normal 2.7-4.8 [facility] Comment on above: Order Comment: Speci men Type: BLOOD SPECIMENOrdering Facility: [facility] Address: [address] [place] [address] Performed By: #### 2 4323-8, LIPNF, 61824-7, 2777-1 ####[facility] LABIA [id number] [address] [place] Tacrolimus Bld-ncon 2022 Tacrolimus (Bld) [Mass/Vol] 9.2 ng/mL Normal 5.0-20.0 [facility] Comment on above: Order Comment: Speci men Type: BLOOD SPECIMENOrdering Facility: [facility] Address: [address] [place] [address] Result Comment: Jennifer vidualized target levels for [...] situation. Test performed by chemiluminescent immunoassay using [employer]. Performed By: #### 1 1253-2 ####[facility] LABCLIA [id number] [address] [place] aPTT PPPon 04-11-2023 aPTT Coag (PPP) [Time] 24.4 s Normal 23.0-32.4 [facility] Comment on above: Order Comment: Speci men Type: BLOOD SPECIMENOrdering Facility: [facility] Address: [address] [place] [address] Performed By: #### 3 4528-0, 43064-8 ####[facility] LABCLIA [id number] [place] [address] [place] CASE MANAGEMon 04-10-2023 CASE MANAGEM Normal [facility] CBC W Auto Differential pane l (Bld)on 04-10-2023 Anisocytosis Ql (Bld) Present Normal [facility] Comment on above: Order Comment: Speci men Type: BLOOD SPECIMENOrdering Facility: [facility] Address: [address] [place], [place] [address] Performed By: #### 5 7021-8 ####[facility] LABIA [id number] [place] [address] [place] Basophils (Bld) [#/Vol] 0.03 10*3/uL Normal <0.11 [facility] Comment on above: Order Comment: Speci men Type: BLOOD SPECIMENOrdering Facility: [facility] Address: [address] [place], [place] [address] Performed By: #### 5 7021-8 ####[facility] LABCLIA [id number] [address] [place] Basophils/100 WBC (Bld) 0.2 % Normal [facility] Comment on above: Order Comment: Speci men Type: BLOOD SPECIMENOrdering Facility: [facility] Address: [address] [place] [address] Performed By: #### 5 7021-8 ####[facility] LABCLIA [id number] [place] [address] [place] Differential cell count method Nom (Bld) Auto Normal [facility] Comment on above: Order Comment: Speci men Type: BLOOD SPECIMENOrdering Facility: [facility] Address: [address] [place] [address] Performed By: #### 5 7021-8 ####[facility] LABCLIA [id number] [place] [address] [place] Eosinophils (Bld) [#/Vol] 2.79 10*3/uL High <0.46 [facility] Comment on above: Order Comment: Speci men Type: BLOOD SPECIMENOrdering Facility: [facility] Address: [address] [place] [address] Performed By: #### 5 7021-8 ####[facility] LABCLIA [id number] [place] [address] [place] Eosinophils/100 WBC (Bld) 16.6 % Normal [facility] Comment on above: Order Comment: Speci men Type: BLOOD SPECIMENOrdering Facility: [facility] Address: [address] [place], [place] [address] Performed By: #### 5 7021-8 ####[facility] LABCLIA [id number] [place] [address] [place] Erythrocyte distribution width (RBC) [Ratio] 16.5 % High 11.5-15.0 [facility] Comment on above: Order Comment: Speci men Type: BLOOD SPECIMENOrdering Facility: [facility] Address: [address] [place], [place] [address] Performed By: #### 5 7021-8 ####[facility] LABCLIA [id number] [place] [address] [place] Hematocrit (Bld) [Volume fraction] 29.9 % Low 39.0-51.0 [facility] Comment on above: Order Comment: Speci men Type: BLOOD SPECIMENOrdering Facility: [facility] Address: [address] Performed By: #### 5 7021-8 ####[facility] LABCLIA [id number] [place] [address] [place] Hemoglobin (Bld) [Mass/Vol] 11.2 g/dL Low 13.0-17.0 [facility] Comment on above: Order Comment: Speci men Type: BLOOD SPECIMENOrdering Facility: [facility] Address: [address] Performed By: #### 5 7021-8 ####[facility] LABCLIA [id number] [place] [address] [place] Immature granulocytes (Bld) [#/Vol] 0.10 10*3/uL High <0.10 [facility] Comment on above: Order Comment: Speci men Type: BLOOD SPECIMENOrdering Facility: [facility] Address: [address] Performed By: #### 5 7021-8 ####[facility] LABIA [id number] [place] [address] [place] Immature granulocytes/100 WBC (Bld) 0.6 % Normal [facility] Comment on above: Order Comment: Speci men Type: BLOOD SPECIMENOrdering Facility: [facility] Address: [address] Performed By: #### 5 7021-8 ####[facility] LABCLIA [id number] [place] [address] [place] Lymphocytes (Bld) [#/Vol] 1.06 10*3/uL Normal 1.00-4.00 [facility] Comment on above: Order Comment: Speci men Type: BLOOD SPECIMENOrdering Facility: [facility] Address: [address] Performed By: #### 5 7021-8 ####[facility] LABCLIA [id number] [place] [address] [place] Lymphocytes/100 WBC (Bld) 6.3 % Normal [facility] Comment on above: Order Comment: Speci men Type: BLOOD SPECIMENOrdering Facility: [facility] Address: [address] [place] [address] Performed By: #### 5 7021-8 ####[facility] LABIA [id number] [place] [address] [place] MCH (RBC) [Entitic mass] 34.9 pg High 26.0-34.0 [facility] Comment on above: Order Comment: Speci men Type: BLOOD SPECIMENOrdering Facility: [facility] Address: [address] [place] [address] Performed By: #### 5 7021-8 ####[facility] [id number] [place] [address] [place] MCHC (RBC) [Mass/Vol] 37.5 g/dL High 30.5-36.0 [facility] Comment on above: Order Comment: Speci men Type: BLOOD SPECIMENOrdering Facility: [facility] Address: [address] [place] [address] Performed By: #### 5 7021-8 ####[facility] [id number] [place] [address] [place] MCV (RBC) [Entitic vol] 93.1 fL Normal 80.0-100.0 [facility] Comment on above: Order Comment: Speci men Type: BLOOD SPECIMENOrdering Facility: [facility] Address: [address] [place], [place] [address] Performed By: #### 5 7021-8 ####[facility] LABIA [id number] [place] [address] [place] Monocytes (Bld) [#/Vol] 1.78 10*3/uL High <0.87 [facility] Comment on above: Order Comment: Speci men Type: BLOOD SPECIMENOrdering Facility: [facility] Address: [address] Performed By: #### 5 7021-8 ####[facility] LABIA [id number] [place] [address] [place] Monocytes/100 WBC (Bld) 10.6 % Normal [facility] Comment on above: Order Comment: Speci men Type: BLOOD SPECIMENOrdering Facility: [facility] Address: [address] Performed By: #### 5 7021-8 ####[facility] LABIA [id number] [place] [address] [place] Neutrophils (Bld) [#/Vol] 11.00 10*3/uL High 1.45-7.50 [facility] Comment on above: Order Comment: Speci men Type: BLOOD SPECIMENOrdering Facility: [facility] Address: [address] [place] [address] Performed By: #### 5 7021-8 ####[facility] LABIA [id number] [place] [address] [place] Neutrophils/100 WBC (Bld) 65.7 % Normal [facility] Comment on above: Order Comment: Speci men Type: BLOOD SPECIMENOrdering Facility: [facility] Address: [address] [place], [place] [address] Result Comment: Diff erential confirmed by visual scan of peripheral blood smear slide. Performed By: #### 5 7021-8 ####[facility] LABIA [id number] [place] [address] [place] Nucleated RBC (Bld) [#/Vol] 10*3/uL Normal <0.01 [facility] Comment on above: Order Comment: Speci men Type: BLOOD SPECIMENOrdering Facility: [facility] Address: [address] [place] [address] Performed By: #### 5 7021-8 ####[facility] LABCLIA [id number] [place] [address] [place] Nucleated RBC/100 WBC (Bld) [Ratio] 0.0 /100 WBC Normal [facility] Comment on above: Order Comment: Speci men Type: BLOOD SPECIMENOrdering Facility: [facility] Address: [address] [place], [place] [address] Performed By: #### 5 7021-8 ####[facility] LABIA [id number] [place] [address] [place] Ovalocytes LM Ql (Bld) Few Normal [facility] Comment on above: Order Comment: Speci men Type: BLOOD SPECIMENOrdering Facility: [facility] Address: [address] [place] [address] Performed By: #### 5 7021-8 ####[facility] LABIA [id number] [place] [address] [place] Platelet mean volume (Bld) [Entitic vol] 10.9 fL Normal 9.0-12.7 [facility] Comment on above: Order Comment: Speci men Type: BLOOD SPECIMENOrdering Facility: [facility] Address: [address] [place], [place] [address] Performed By: #### 5 7021-8 ####[facility] LABIA [id number] [place] [address] [place] Platelets (Bld) [#/Vol] 43 10*3/uL Low 150-400 [facility] Comment on above: Order Comment: Speci men Type: BLOOD SPECIMENOrdering Facility: [facility] Address: [address] [place], [place] [address] Result Comment: No c lot detected. Performed By: #### 5 7021-8 ####[facility] LABIA [id number] [place] [address] [place] Platelets Estimate (Bld) [#/Vol] Decreased Normal [facility] Comment on above: Order Comment: Speci men Type: BLOOD SPECIMENOrdering Facility: [facility] Address: [address] [place], [place] [address] Performed By: #### 5 7021-8 ####[facility] LABCLIA [id number] [place] [address] [place] Polychromasia LM Ql (Bld) Slight Normal [facility] Comment on above: Order Comment: Speci men Type: BLOOD SPECIMENOrdering Facility: [facility] Address: [address] [place], [place] [address] Performed By: #### 5 7021-8 ####[facility] LABCLIA [id number] [place] [address] [place] RBC (Bld) [#/Vol] 3.21 10*6/uL Low 4.20-6.00 [facility] Comment on above: Order Comment: Speci men Type: BLOOD SPECIMENOrdering Facility: [facility] Address: [address] [place], [place] [address] Performed By: #### 5 7021-8 ####[facility] LABCLIA [id number] [place] [address] [place] RED CELL MORPH Reviewed: see result s of individual morphologies Normal [facility] Comment on above: Order Comment: Speci men Type: BLOOD SPECIMENOrdering Facility: [facility] Address: [address] [place] [address] Performed By: #### 5 7021-8 ####[facility] LABCLIA [id number] [place] [address] [place] WBC (Bld) [#/Vol] 16.76 10*3/uL High 3.70-11.00 [facility] Comment on above: Order Comment: Speci men Type: BLOOD SPECIMENOrdering Facility: [facility] Address: [address] Performed By: #### 5 7021-8 ####[facility] LABIA [id number] [place] [address] [place] CONSULT PROGon 04-10-2023 CONSULT PROG Normal [facility] CONSULT PROG Normal [facility] Comprehensive metabolic 2000 panelon 04-10-2023 Albumin [Mass/Vol] 2.6 g/dL Low 3.9-4.9 [facility] Comment on above: Order Comment: Speci men Type: BLOOD SPECIMENOrdering Facility: [facility] Address: [address] Performed By: #### 1 9123-9, 2777-, 86430-3 ####[facility] LABCLIA [id number] [place] [address] [place] ALP [Catalytic activity/Vol] 103 U/L Normal 38-113 [facility] Comment on above: Order Comment: Speci men Type: BLOOD SPECIMENOrdering Facility: [facility] Address: [address] Performed By: #### 1 9123-9, 2777-, 41457-2 ####[facility] LABIA [id number] [place] [address] [place] ALT [Catalytic activity/Vol] 60 U/L High 10-54 [facility] Comment on above: Order Comment: Speci men Type: BLOOD SPECIMENOrdering Facility: [facility] Address: [address] Performed By: #### 1 9123-9, 27702-21, 18799-8 ####[facility] LABCLIA [id number] [place] [address] [place] Anion gap [Moles/Vol] 8 mmol/L Low 9-18 [facility] Comment on above: Order Comment: Speci men Type: BLOOD SPECIMENOrdering Facility: [facility] Address: [address] [place] [address] Performed By: #### 1 9123-9, 2776-08, ####[facility] LABCLIA [id number] [place] [address] [place] AST [Catalytic activity/Vol] 42 U/L High 14-40 [facility] Comment on above: Order Comment: Speci men Type: BLOOD SPECIMENOrdering Facility: [facility] Address: [address] [place] [address] Performed By: #### 1 9123-9, 27702-21, 65206-4 ####[facility] LABCLIA [id number] [place] [address] [place] Bilirubin [Mass/Vol] 1.3 mg/dL Normal 0.2-1.3 [facility] Comment on above: Order Comment: Speci men Type: BLOOD SPECIMENOrdering Facility: [facility] Address: [address] [place] [address] Performed By: #### 1 9123-9, 27702-21, 92411-8 ####[facility] LABCLIA [id number] [place] [address] [place] Calcium [Mass/Vol] 7.7 mg/dL Low 8.5-10.2 [facility] Comment on above: Order Comment: Speci men Type: BLOOD SPECIMENOrdering Facility: [facility] Address: [address] [place] [address] Performed By: #### 1 9123-9, 27702-21, 46624-1 ####[facility] LABCLIA [id number] [place] [address] [place] Chloride [Moles/Vol] 94 mmol/L Low 97-105 [facility] Comment on above: Order Comment: Speci men Type: BLOOD SPECIMENOrdering Facility: [facility] Address: [address] [place] [address] Performed By: #### 1 9123-9, 2777-, 44578-0 ####[facility] LABCLIA [id number] [place] [address] [place] CO2 [Moles/Vol] 23 mmol/L Normal 22-30 [facility] Comment on above: Order Comment: Speci men Type: BLOOD SPECIMENOrdering Facility: [facility] Address: [address] [place] [address] Performed By: #### 1 9123-9, 2777, 42271-3 ####[facility] LABCLIA [id number] [place] [address] [place] Creatinine [Mass/Vol] 2.02 mg/dL High 0.73-1.22 [facility] Comment on above: Order Comment: Speci men Type: BLOOD SPECIMENOrdering Facility: [facility] Address: [address] [place] [address] Performed By: #### 1 9123-9, 27702-21, 16801-7 ####[facility] LABIA [id number] [address] [place] Creatinine and Glomerular filtration rate.predicted panel (S/P/Bld) 42 mL/min/1.73m??? Low >=60 [facility] Comment on above: Order Comment: Speci men Type: BLOOD SPECIMENOrdering Facility: [facility] Address: [address] [place] [address] Result Comment: Karma mated Glomerular Filtration Rate [...] actual GFR. Performed By: #### 1 9123-9, 2777-, 48796-2 ####[facility] LABIA [id number] [place] [address] [place] Glucose [Mass/Vol] 103 mg/dL High 74-99 [facility] Comment on above: Order Comment: Speci men Type: BLOOD SPECIMENOrdering Facility: [facility] Address: [address] [place] [address] Result Comment: The [place] Diabetes [employer] (ADA) provides guidance for cutoff [...] Standards of Medical Care in Diabetes 2016, [place] [employer]. Diabetes Care. 2016.39(Suppl 1). Performed By: #### 1 9123-9, 2777-1, 98324-6 ####[facility] LABIA [id number] [place] [address] [place] Potassium [Moles/Vol] 4.5 mmol/L Normal 3.7-5.1 [facility] Comment on above: Order Comment: Speci men Type: BLOOD SPECIMENOrdering Facility: [facility] Address: [address] [place], [place] [address] Performed By: #### 1 9123-9, 2777-1, 52151-4 ####[facility] LABIA [id number] [place] [address] [place] Protein [Mass/Vol] 4.6 g/dL Low 6.3-8.0 [facility] [place] Comment on above: Order Comment: Speci men Type: BLOOD SPECIMENOrdering Facility: [facility] Address: [address] [place] [address] Performed By: #### 1 9123-9, 2777-, 75260-6 ####[facility] LABCLIA [id number] [place] [id number] [place] Sodium [Moles/Vol] 125 mmol/L Low 136-144 Select [facility] [place] Comment on above: Order Comment: Speci men Type: BLOOD SPECIMENOrdering Facility: [facility] Address: [address] [place] [address] Performed By: #### 1 9123-9, 2777-, 70299-5 ####[facility] LABIA [id number] [place] [address] [place] Urea nitrogen [Mass/Vol] 73 mg/dL High 9-24 [facility] Comment on above: Order Comment: Speci men Type: BLOOD SPECIMENOrdering Facility: [facility] Address: [address] [place] [address] Performed By: #### 1 9123-9, 2777, 94415-8 ####[facility] LABIA [id number] [place] [id number] [place] Magnesium SerPl-mCncon 04-10 Magnesium [Mass/Vol] 2.8 mg/dL High 1.7-2.3 [facility] Comment on above: Order Comment: Speci men Type: BLOOD SPECIMENOrdering Facility: [facility] Address: [address] [place], [place] [address] Performed By: #### 1 9123-9, 2777-, 06440-0 ####[facility] LABIA [id number] [place] [id number] [place] NUTRITIONon 04-10-2023 NUTRITION Normal [facility] PT EDon 04-10-2023 PT ED Normal [facility] PT panel Coag (PPP)on 2022 INR Coag (PPP) [Relative time] 1.1 {INR} Normal 0.9-1.3 [facility] Comment on above: Order Comment: Rasta kennedy Type: BLOOD SPECIMENOrdering Facility: [facility] Address: [address] [place] [id number] Result Comment: Ibnta min K Antagonist (VKA) Therapeutic Range: INR 2 to 3 (Target INR of 2.5)Note: For patients treated with VKA drugs, such as warfarin, the [employer] 2012 Guideline recommends [...] al. Chest 2012, 141:7S-47SNishimyumiko RA, et al. [facility] 2017, 70: 252-289 Performed By: #### 3 4528-0, 27518-2 ####[facility] [id number] [place] [address] [place] PT Coag (PPP) [Time] 11.4 s Normal 9.7-13.0 [facility] Comment on above: Order Comment: Rasta kennedy Type: BLOOD SPECIMENOrdering Facility: [facility] Address: [address] [place] [id number] Performed By: #### 3 4528-0, 00726-8 ####[facility] [id number] [place] [address] [place] Phosphate SerPl-ncon 04-10 Phosphate [Mass/Vol] 3.5 mg/dL Normal 2.7-4.8 [facility] Comment on above: Order Comment: Rasta kennedy Type: BLOOD SPECIMENOrdering Facility: [facility] Address: [address] [place] [phone] Performed By: #### 1 9123-9, 2777-1, 93765-7 ####[facility] LABCLIA [id number] [place] [address] [place] THERAPY NTon 04-10-2023 THERAPY NT Normal [facility] TYPE + SCREENon 04-10-2023 ABO A Normal [facility] Comment on above: Order Comment: Speci men Type: BLOOD SPECIMENOrdering Facility: [facility] Address: [address] [place] [address] Performed By: #### T SCR ####[facility] BLOOD BANKCLIA [id number] [address] HISTORICAL AB SCR STATUS Negative Normal [facility] Comment on above: Order Comment: Speci men Type: BLOOD SPECIMENOrdering Facility: [facility] Address: [address] [place] [address] Performed By: #### T SCR ####[facility] BLOOD BANKCLIA [id number] [place] [address] [place] Rh Nom (Bld) Positive Normal [facility] Comment on above: Order Comment: Speci men Type: BLOOD SPECIMENOrdering Facility: [facility] Address: [address] [place] [address] Performed By: #### T SCR ####[facility] BLOOD BANKCLIA [id number] [place] [address] [place] TYPE AND SCREEN EXPIRATION 04/13/2023 23:59 Normal [facility] Comment on above: Order Comment: Speci men Type: BLOOD SPECIMENOrdering Facility: [facility] Address: [address] [place] [address] Performed By: #### T SCR ####[facility] BLOOD BANKCLIA [id number] [place] [address] [place] Tacrolimus Bld-mCncon 2022 Tacrolimus (Bld) [Mass/Vol] 8.8 ng/mL Normal 5.0-20.0 [facility] Comment on above: Order Comment: Rasta kennedy Type: BLOOD SPECIMENOrdering Facility: [facility] Address: [place] [address] Result Comment: Jennifer vidualized target levels for [...] situation. Test performed by chemiluminescent immunoassay using [employer] i. Performed By: #### 1 1253-2 ####[facility] LABCLIA [id number] [place] [address] [place] aPTT PPPon 04-10-2023 aPTT Coag (PPP) [Time] 23.1 s Normal 23.0-32.4 [facility] Comment on above: Order Comment: Rasta kennedy Type: BLOOD SPECIMENOrdering Facility: [facility] Address: [address] [place] [address] Performed By: #### 3 4528-0, 67490-3 ####[facility] LABIA [id number] [place] [address] [place] CASE MANAGEMon 04-09-2023 CASE MANAGEM Normal [facility] CBC W Auto Differential pane l (Bld)on 04-09-2023 Basophils (Bld) [#/Vol] 10*3/uL Normal <0.11 [facility] Comment on above: Order Comment: Rasta kennedy Type: BLOOD SPECIMENOrdering Facility: [facility] Address: [address] [place] [address] Performed By: #### 5 7021-8 ####[facility] LABCLIA [id number] [address] STATES OF [facility] Basophils/100 WBC (Bld) 0.1 % Normal [facility] Comment on above: Order Comment: Speci men Type: BLOOD SPECIMENOrdering Facility: [facility] Address: [address] Performed By: #### 5 7021-8 ####[facility] LABCLIA [id number] [place] [address] [place] Differential cell count method Nom (Bld) Auto Normal [facility] Comment on above: Order Comment: Speci men Type: BLOOD SPECIMENOrdering Facility: [facility] Address: [address] Performed By: #### 5 7021-8 ####[facility] LABCLIA [id number] [place] [address] [place] Eosinophils (Bld) [#/Vol] 0.13 10*3/uL Normal <0.46 [facility] Comment on above: Order Comment: Speci men Type: BLOOD SPECIMENOrdering Facility: [facility] Address: [address] Performed By: #### 5 7021-8 ####[facility] LABIA [id number] [address] [place] Eosinophils/100 WBC (Bld) 1.1 % Normal [facility] Comment on above: Order Comment: Speci men Type: BLOOD SPECIMENOrdering Facility: [facility] Address: [address] Performed By: #### 5 7021-8 ####[facility] LABCLIA [id number] [place] [address] [place] Erythrocyte distribution width (RBC) [Ratio] 14.5 % Normal 11.5-15.0 [facility] Comment on above: Order Comment: Speci men Type: BLOOD SPECIMENOrdering Facility: [facility] Address: [address] Performed By: #### 5 7021-8 ####[facility] LABCLIA [id number] [place] [address] [place] Hematocrit (Bld) [Volume fraction] 26.2 % Low 39.0-51.0 [facility] Comment on above: Order Comment: Speci men Type: BLOOD SPECIMENOrdering Facility: [facility] Address: [address] [place] [address] Performed By: #### 5 7021-8 ####[facility] LABIA [id number] [place] [address] [place] Hemoglobin (Bld) [Mass/Vol] 9.7 g/dL Low 13.0-17.0 [facility] Comment on above: Order Comment: Speci men Type: BLOOD SPECIMENOrdering Facility: [facility] Address: [address] [place] [address] Performed By: #### 5 7021-8 ####[facility] LABIA [id number] [address] [place] Immature granulocytes (Bld) [#/Vol] 0.09 10*3/uL Normal <0.10 [facility] Comment on above: Order Comment: Speci men Type: BLOOD SPECIMENOrdering Facility: [facility] Address: [address] [place] [address] Performed By: #### 5 7021-8 ####[facility] LABIA [id number] [address] [place] Immature granulocytes/100 WBC (Bld) 0.8 % Normal [facility] Comment on above: Order Comment: Speci men Type: BLOOD SPECIMENOrdering Facility: [facility] Address: [address] [place] [address] Performed By: #### 5 7021-8 ####[facility] LABIA [id number] [place] [address] [place] Lymphocytes (Bld) [#/Vol] 0.63 10*3/uL Low 1.00-4.00 [facility] Comment on above: Order Comment: Speci men Type: BLOOD SPECIMENOrdering Facility: [facility] Address: [address] [place] [address] Performed By: #### 5 7021-8 ####[facility] LABIA [id number] [address] Lymphocytes/100 WBC (Bld) 5.3 % Normal [facility] Comment on above: Order Comment: Speci men Type: BLOOD SPECIMENOrdering Facility: [facility] Address: [address] [place] [address] Performed By: #### 5 7021-8 ####[facility] LABIA [id number] [address] [place] MCH (RBC) [Entitic mass] 34.3 pg High 26.0-34.0 [facility] Comment on above: Order Comment: Speci men Type: BLOOD SPECIMENOrdering Facility: [facility] Address: [address] [place], [place] [address] Performed By: #### 5 7021-8 ####[facility] LABIA [id number] [address] [place] MCHC (RBC) [Mass/Vol] 37.0 g/dL High 30.5-36.0 [facility] Comment on above: Order Comment: Speci men Type: BLOOD SPECIMENOrdering Facility: [facility] Address: [address] [place], [place] [address] Performed By: #### 5 7021-8 ####[facility] LABIA [id number] [address] [place] MCV (RBC) [Entitic vol] 92.6 fL Normal 80.0-100.0 [facility] Comment on above: Order Comment: Speci men Type: BLOOD SPECIMENOrdering Facility: [facility] Address: [address] [place] [address] Performed By: #### 5 7021-8 ####[facility] LABCLIA [id number] [place] [address] [place] Monocytes (Bld) [#/Vol] 1.07 10*3/uL High <0.87 [facility] Comment on above: Order Comment: Speci men Type: BLOOD SPECIMENOrdering Facility: [facility] Address: [address] Performed By: #### 5 7021-8 ####[facility] LABCLIA [id number] [place] [address] [place] Monocytes/100 WBC (Bld) 9.0 % Normal [facility] Comment on above: Order Comment: Speci men Type: BLOOD SPECIMENOrdering Facility: [facility] Address: [address] Performed By: #### 5 7021-8 ####[facility] LABCLIA [id number] [place] [address] [place] Neutrophils (Bld) [#/Vol] 9.98 10*3/uL High 1.45-7.50 [facility] Comment on above: Order Comment: Speci men Type: BLOOD SPECIMENOrdering Facility: [facility] Address: [address] [place], [place] [address] Performed By: #### 5 7021-8 ####[facility] LABCLIA [id number] [place] [address] [place] Neutrophils/100 WBC (Bld) 83.7 % Normal [facility] Comment on above: Order Comment: Speci men Type: BLOOD SPECIMENOrdering Facility: [facility] Address: [address] Performed By: #### 5 7021-8 ####[facility] LABCLIA [id number] [place] [id number] [place] Nucleated RBC (Bld) [#/Vol] 10*3/uL Normal <0.01 [facility] Comment on above: Order Comment: Speci men Type: BLOOD SPECIMENOrdering Facility: [facility] Address: [address] [place] [address] Performed By: #### 5 7021-8 ####[facility] LABCLIA [id number] [place] [address] [place] Nucleated RBC/100 WBC (Bld) [Ratio] 0.0 /100 WBC Normal [facility] Comment on above: Order Comment: Speci men Type: BLOOD SPECIMENOrdering Facility: [facility] Address: [address] [place] [address] Performed By: #### 5 7021-8 ####[facility] LABCLIA [id number] [place] [address] [place] Platelet mean volume (Bld) [Entitic vol] 12.7 fL Normal 9.0-12.7 [facility] Comment on above: Order Comment: Speci men Type: BLOOD SPECIMENOrdering Facility: [facility] Address: [address] [place] [address] Performed By: #### 5 7021-8 ####[facility] LABIA [id number] [place] [address] [place] Platelets (Bld) [#/Vol] 36 10*3/uL Low 150-400 [facility] Comment on above: Order Comment: Speci men Type: BLOOD SPECIMENOrdering Facility: [facility] Address: [address] [place] [address] Result Comment: No c lot detected.Results checked and verified. Performed By: #### 5 7021-8 ####[facility] LABCLIA [id number] [place] [address] [place] RBC (Bld) [#/Vol] 2.83 10*6/uL Low 4.20-6.00 [facility] Comment on above: Order Comment: Speci men Type: BLOOD SPECIMENOrdering Facility: [facility] Address: [address] [place] [address] Performed By: #### 5 7021-8 ####[facility] LABCLIA [id number] [place] [address] [place] WBC (Bld) [#/Vol] 11.91 10*3/uL High 3.70-11.00 [facility] Comment on above: Order Comment: Speci men Type: BLOOD SPECIMENOrdering Facility: [facility] Address: [address] [place] [address] Result Comment: No c lot detected.Results checked and verified. Performed By: #### 5 7021-8 ####[facility] LABCLIA [id number] [place] [address] [place] CONSULTon 04-09-2023 CONSULT Normal [facility] CONSULT PROGon 04-09-2023 CONSULT PROG Normal [facility] CONSULT PROG Normal [facility] CRP SerPl-mCncon 04-09-2023 CRP [Mass/Vol] 0.5 mg/dL Normal <0.9 [facility] Comment on above: Order Comment: Speci men Type: BLOOD SPECIMENOrdering Facility: [facility] Address: [address] [place] [address] Performed By: #### 1 988-5, 68800-2, 17594-0, 2777-1 ####[facility] LABCLIA [id number] [place] [address] [place] Comprehensive metabolic 2000 panelon 04-09-2023 Albumin [Mass/Vol] 2.7 g/dL Low 3.9-4.9 [facility] [place] Comment on above: Order Comment: Speci men Type: BLOOD SPECIMENOrdering Facility: [facility] Address: [address] [place] [address] Performed By: #### 1 988-5, 18410-4, 97090-0, 2776- ####[facility] LABCLIA [id number] [place] [address] [place] ALP [Catalytic activity/Vol] 103 U/L Normal 38-113 [facility] Comment on above: Order Comment: Speci men Type: BLOOD SPECIMENOrdering Facility: [facility] Address: [address] [place] [address] Performed By: #### 1 988-5, 25995-3, 70469-0, 2776- ####[facility] LABCLIA [id number] [place] [address] [place] ALT [Catalytic activity/Vol] 58 U/L High 10-54 [facility] Comment on above: Order Comment: Speci men Type: BLOOD SPECIMENOrdering Facility: [facility] Address: [address] [place] [address] Performed By: #### 1 988-5, 57916-4, , 2776-08 ####[facility] LABIA [id number] [place] [address] [place] Anion gap [Moles/Vol] 11 mmol/L Normal 9-18 [facility] Comment on above: Order Comment: Speci men Type: BLOOD SPECIMENOrdering Facility: [facility] Address: [address] [place], [place] [address] Performed By: #### 1 988-5, 81414-0, 66085-9, 2776- ####[facility] LABIA [id number] [place] [address] [place] AST [Catalytic activity/Vol] 40 U/L Normal 14-40 [facility] Comment on above: Order Comment: Speci men Type: BLOOD SPECIMENOrdering Facility: [facility] Address: [address] [place] [address] Performed By: #### 1 988-5, 17894-4, , 2776-08 ####[facility] LABCLIA [id number] [place] [address] [place] Bilirubin [Mass/Vol] 1.5 mg/dL High 0.2-1.3 [facility] Comment on above: Order Comment: Speci men Type: BLOOD SPECIMENOrdering Facility: [facility] Address: [address] [place] [address] Performed By: #### 1 988-5, 31043-0, , 2776-08 ####[facility] LABCLIA [id number] [place] [address] [place] Calcium [Mass/Vol] 7.7 mg/dL Low 8.5-10.2 [facility] [place] Comment on above: Order Comment: Speci men Type: BLOOD SPECIMENOrdering Facility: [facility] Address: [address] [place], [place] [address] Performed By: #### 1 988-5, 20321-5, , 2776-08 ####[facility] LABIA [id number] [place] [address] [place] Chloride [Moles/Vol] 92 mmol/L Low 97-105 [facility] Comment on above: Order Comment: Speci men Type: BLOOD SPECIMENOrdering Facility: [facility] Address: [address] [place] [address] Performed By: #### 1 988-5, 01661-5, , 2776-08 ####[facility] LABCLIA [id number] [place] [address] [place] CO2 [Moles/Vol] 21 mmol/L Low 22-30 [facility] Comment on above: Order Comment: Speci men Type: BLOOD SPECIMENOrdering Facility: [facility] Address: [address] [place], [place] [address] Performed By: #### 1 988-5, 80961-8, 66301-6, 2776-08 ####[facility] LABIA [id number] [place] [address] [place] Creatinine [Mass/Vol] 2.02 mg/dL High 0.73-1.22 [facility] Comment on above: Order Comment: Speci men Type: BLOOD SPECIMENOrdering Facility: [facility] Address: [address] [place] [address] Performed By: #### 1 988-5, 76517-3, , 2776-08 ####[facility] [id number] [place] [address] [place] Creatinine and Glomerular filtration rate.predicted panel (S/P/Bld) 42 mL/min/1.73m??? Low >=60 [facility] Comment on above: Order Comment: Speci men Type: BLOOD SPECIMENOrdering Facility: [facility] Address: [address] [place] [address] Result Comment: Karma mated Glomerular Filtration Rate [...] actual GFR. Performed By: #### 1 988-5, 76300-7, , 2776-08 ####[facility] LABIA [id number] [place] [id number] [place] Glucose [Mass/Vol] 128 mg/dL High 74-99 [facility] [place] Comment on above: Order Comment: Speci men Type: BLOOD SPECIMENOrdering Facility: [facility] Address: [address] [place] [address] Result Comment: The [employer] (ADA) provides guidance for cutoff [...] Standards of Medical Care in Diabetes 2016, [employer]. Diabetes Care. 2016.39(Suppl 1). Performed By: #### 1 988-5, 79871-6, 90816-3, 2776- ####[facility] LABIA [id number] [place] [address] [place] Potassium [Moles/Vol] 4.8 mmol/L Normal 3.7-5.1 [facility] Comment on above: Order Comment: Rasta men Type: BLOOD SPECIMENOrdering Facility: [facility] Address: [address] [place] [address] Performed By: #### 1 988-5, 85319-9, , 2776-08 ####[facility] [id number] [place] [address] [place] Protein [Mass/Vol] 4.4 g/dL Low 6.3-8.0 [facility] [place] Comment on above: Order Comment: Rasta kennedy Type: BLOOD SPECIMENOrdering Facility: [facility] Address: [address] [place] [address] Performed By: #### 1 988-5, 60144-4, 19952-8, 27702-21 ####[facility] [id number] [place] [address] [place] Sodium [Moles/Vol] 124 mmol/L Low 136-144 [facility] [place] Comment on above: Order Comment: Yuryi men Type: BLOOD SPECIMENOrdering Facility: [facility] Address: [address] [place] [address] Performed By: #### 1 988-5, 00564-8, 33887-5, 2777-1 ####[facility] LABIA [id number] [place] [address] [place] Urea nitrogen [Mass/Vol] 83 mg/dL High 9-24 [facility] Comment on above: Order Comment: Speci brent Type: BLOOD SPECIMENOrdering Facility: [facility] Address: [address] [place] [address] Performed By: #### 1 988-5, 46436-1, 16103-5, 2777-1 ####[facility] LABIA [id number] [place] [address] [place] Magnesium SerPl-mCncon 04-09 Magnesium [Mass/Vol] 2.8 mg/dL High 1.7-2.3 [facility] Comment on above: Order Comment: Speci men Type: BLOOD SPECIMENOrdering Facility: [facility] Address: [address] [place] [address] Performed By: #### 1 988-5, 94804-3, 10156-5, 2777-1 ####[facility] [id number] [place] [address] [place] PT panel Coag (PPP)on 2022 INR Coag (PPP) [Relative time] 1.2 {INR} Normal 0.9-1.3 [facility] Comment on above: Order Comment: Speci brent Type: BLOOD SPECIMENOrdering Facility: [facility] Address: [address] [place] [address] Result Comment: Binta min K Antagonist (VKA) Therapeutic Range: INR 2 to 3 (Target INR of 2.5)Note: For patients treated with VKA drugs, such as warfarin, the [employer] 2012 Guideline recommends [...] al. Chest 2012, 141:7S-47SNishdino RA, et al. [facility] 2017, 70: 252-289 Performed By: #### 3 4528-0, 32586-8 ####[facility] LABIA [id number] [place] [address] [place] PT Coag (PPP) [Time] 12.3 s Normal 9.7-13.0 [facility] Comment on above: Order Comment: Rasta kennedy Type: BLOOD SPECIMENOrdering Facility: [facility] Address: [address] [place] [address] Performed By: #### 3 4528-0, 17640-1 ####[facility] LABIA [id number] [place] [address] [place] Phosphate SerPl[facility] 04-09 Phosphate [Mass/Vol] 5.1 mg/dL High 2.7-4.8 [facility] Comment on above: Order Comment: Rasta kennedy Type: BLOOD SPECIMENOrdering Facility: [facility] Address: [address] [place] [address] Performed By: #### 1 988-5, 68271-1, 43822-6, 2777-1 ####[facility] LABIA [id number] [place] [address] [place] Tacrolimus Bld-mCncon 2022 Tacrolimus (Bld) [Mass/Vol] 9.9 ng/mL Normal 5.0-20.0 [facility] Comment on above: Order Comment: Rasta kennedy Type: BLOOD SPECIMENOrdering Facility: [facility] Address: [address] [place] [address] Result Comment: Jennifer vidualized target levels for [...] situation. Test performed by chemiluminescent immunoassay using [employer] i. Performed By: #### 1 1253-2 ####[facility] LABIA [id number] [address] [place] aPTT PPPon 04-09-2023 aPTT Coag (PPP) [Time] 24.5 s Normal 23.0-32.4 [facility] Comment on above: Order Comment: Speci men Type: BLOOD SPECIMENOrdering Facility: [facility] Address: [address] [place] [address] Performed By: #### 3 4528-0, 66152-1 ####[facility] [id number] [address] [place] CBC W Auto Differential pane l (Bld)on 04-08-2023 Basophils (Bld) [#/Vol] 10*3/uL Normal <0.11 [facility] Comment on above: Order Comment: Speci men Type: BLOOD SPECIMENOrdering Facility: [facility] Address: [address] [address] Performed By: #### 5 7021-8 ####[facility] LABIA [id number] [address] [place] [facility] Basophils/100 WBC (Bld) 0.1 % Normal [facility] Comment on above: Order Comment: Speci men Type: BLOOD SPECIMENOrdering Facility: [facility] Address: [address] [address] Performed By: #### 5 7021-8 ####[facility] LABCLIA [id number] [place] [address] [place] Differential cell count method Nom (Bld) Auto Normal [facility] Comment on above: Order Comment: Speci men Type: BLOOD SPECIMENOrdering Facility: [facility] Address: [address] [place] [address] Performed By: #### 5 7021-8 ####[facility] LABCLIA [id number] [place] [address] [place] Eosinophils (Bld) [#/Vol] 0.07 10*3/uL Normal <0.46 [facility] Comment on above: Order Comment: Speci men Type: BLOOD SPECIMENOrdering Facility: [facility] Address: [address] [place] [address] Performed By: #### 5 7021-8 ####[facility] LABCLIA [id number] [place] [address] [place] Eosinophils/100 WBC (Bld) 0.5 % Normal [facility] Comment on above: Order Comment: Speci men Type: BLOOD SPECIMENOrdering Facility: [facility] Address: [address] [place] [address] Performed By: #### 5 7021-8 ####[facility] LABIA [id number] [place] [address] [place] Erythrocyte distribution width (RBC) [Ratio] 14.3 % Normal 11.5-15.0 [facility] Comment on above: Order Comment: Speci men Type: BLOOD SPECIMENOrdering Facility: [facility] Address: [address] [place], [place] [address] Performed By: #### 5 7021-8 ####[facility] LABCLIA [id number] [place] [address] [place] Hematocrit (Bld) [Volume fraction] 30.2 % Low 39.0-51.0 [facility] Comment on above: Order Comment: Speci men Type: BLOOD SPECIMENOrdering Facility: [facility] Address: [address] [place], [place] [address] Performed By: #### 5 7021-8 ####[facility] LABCLIA [id number] [place] [address] [place] Hemoglobin (Bld) [Mass/Vol] 11.0 g/dL Low 13.0-17.0 [facility] Comment on above: Order Comment: Speci men Type: BLOOD SPECIMENOrdering Facility: [facility] Address: [address] [place], [place] [address] Performed By: #### 5 7021-8 ####[facility] LABCLIA [id number] [place] [address] [place] Immature granulocytes (Bld) [#/Vol] 0.14 10*3/uL High <0.10 [facility] Comment on above: Order Comment: Speci men Type: BLOOD SPECIMENOrdering Facility: [facility] Address: [address] [place], [place] [address] Performed By: #### 5 7021-8 ####[facility] LABIA [id number] [place] [address] [place] Immature granulocytes/100 WBC (Bld) 1.0 % Normal [facility] Comment on above: Order Comment: Speci men Type: BLOOD SPECIMENOrdering Facility: [facility] Address: [address] [place], [place] [address] Performed By: #### 5 7021-8 ####[facility] LABCLIA [id number] [place] [address] [place] Lymphocytes (Bld) [#/Vol] 0.77 10*3/uL Low 1.00-4.00 [facility] Comment on above: Order Comment: Speci men Type: BLOOD SPECIMENOrdering Facility: [facility] Address: [address] [place], [place] [address] Performed By: #### 5 7021-8 ####[facility] LABIA [id number] [address] [place] [facility] Lymphocytes/100 WBC (Bld) 5.8 % Normal [facility] Comment on above: Order Comment: Speci men Type: BLOOD SPECIMENOrdering Facility: [facility] Address: [address] [place], [place] [address] Performed By: #### 5 7021-8 ####[facility] LABIA [id number] [place] [address] [place] MCH (RBC) [Entitic mass] 33.6 pg Normal 26.0-34.0 [facility] Comment on above: Order Comment: Speci men Type: BLOOD SPECIMENOrdering Facility: [facility] Address: [address] [place], [place] [address] Performed By: #### 5 7021-8 ####[facility] LABIA [id number] [address] [place] MCHC (RBC) [Mass/Vol] 36.4 g/dL High 30.5-36.0 [facility] Comment on above: Order Comment: Speci men Type: BLOOD SPECIMENOrdering Facility: [facility] Address: [address] [place], [place] [address] Performed By: #### 5 7021-8 ####[facility] LABIA [id number] [address] [place] MCV (RBC) [Entitic vol] 92.4 fL Normal 80.0-100.0 [facility] Comment on above: Order Comment: Speci men Type: BLOOD SPECIMENOrdering Facility: [facility] Address: [address] [place], [place] [address] Performed By: #### 5 7021-8 ####[facility] LABIA [id number] [place] [id number] [address] [place] Monocytes (Bld) [#/Vol] 0.74 10*3/uL Normal <0.87 [facility] Comment on above: Order Comment: Speci men Type: BLOOD SPECIMENOrdering Facility: [facility] Address: [address] Performed By: #### 5 7021-8 ####[facility] LABCLIA [id number] [place] [address] [place] Monocytes/100 WBC (Bld) 5.5 % Normal [facility] Comment on above: Order Comment: Speci men Type: BLOOD SPECIMENOrdering Facility: [facility] Address: [address] Performed By: #### 5 7021-8 ####[facility] LABCLIA [id number] [place] [address] [place] Neutrophils (Bld) [#/Vol] 11.66 10*3/uL High 1.45-7.50 [facility] Comment on above: Order Comment: Speci men Type: BLOOD SPECIMENOrdering Facility: [facility] Address: [address] [place], [place] [address] Performed By: #### 5 7021-8 ####[facility] LABCLIA [id number] [place] [address] [place] Neutrophils/100 WBC (Bld) 87.1 % Normal [facility] Comment on above: Order Comment: Speci men Type: BLOOD SPECIMENOrdering Facility: [facility] Address: [address] Performed By: #### 5 7021-8 ####[facility] LABCLIA [id number] [place] [address] [place] Nucleated RBC (Bld) [#/Vol] 0.02 10*3/uL High <0.01 [facility] Comment on above: Order Comment: Speci men Type: BLOOD SPECIMENOrdering Facility: [facility] Address: [address] Performed By: #### 5 7021-8 ####[facility] LABIA [id number] [place] [address] [place] [facility] Nucleated RBC/100 WBC (Bld) [Ratio] 0.1 /100 WBC Normal [facility] Comment on above: Order Comment: Speci men Type: BLOOD SPECIMENOrdering Facility: [facility] Address: [address] [place], [place] [address] Performed By: #### 5 7021-8 ####[facility] [id number] [place] [address] [place] Platelet mean volume (Bld) [Entitic vol] 12.5 fL Normal 9.0-12.7 [facility] Comment on above: Order Comment: Speci men Type: BLOOD SPECIMENOrdering Facility: [facility] Address: [address] [place], [place] [address] Performed By: #### 5 7021-8 ####[facility] [id number] [place] [address] [place] Platelets (Bld) [#/Vol] 42 10*3/uL Low 150-400 [facility] Comment on above: Order Comment: Speci men Type: BLOOD SPECIMENOrdering Facility: [facility] Address: [address] [place], [place] [address] Result Comment: No c lot detected. Performed By: #### 5 7021-8 ####[facility] [id number] [place] [address] [place] RBC (Bld) [#/Vol] 3.27 10*6/uL Low 4.20-6.00 [facility] Comment on above: Order Comment: Speci men Type: BLOOD SPECIMENOrdering Facility: [facility] Address: [address] [place], [place] [address] Performed By: #### 5 7021-8 ####[facility] LABCLIA [id number] [place] [id number] [place] WBC (Bld) [#/Vol] 13.39 10*3/uL High 3.70-11.00 [facility] Comment on above: Order Comment: Speci men Type: BLOOD SPECIMENOrdering Facility: [facility] Address: [address] [place] [address] Performed By: #### 5 7021-8 ####[facility] LABCLIA [id number] [place] [address] [place] CONSULTon 04-08-2023 CONSULT Normal [facility] CONSULT PROGon 04-08-2023 CONSULT PROG Normal [facility] CRP SerPl-mCncon 04-08-2023 CRP [Mass/Vol] 1.1 mg/dL High <0.9 [facility] Comment on above: Order Comment: Speci men Type: BLOOD SPECIMENOrdering Facility: [facility] Address: [address] Performed By: #### 1 988-5, 39142-1, HSTNT, 46131-0, 2776-1 ####[facility] LABCLIA [id number] [place] [id number] [place] Comprehensive metabolic 2000 panelon 04-08-2023 Albumin [Mass/Vol] 3.2 g/dL Low 3.9-4.9 [facility] Comment on above: Order Comment: Speci men Type: BLOOD SPECIMENOrdering Facility: [facility] Address: [address] Performed By: #### 1 988-5, 88838-3, HSTNT, , 2776- ####[facility] LABCLIA [id number] [place] [id number] [place] ALP [Catalytic activity/Vol] 99 U/L Normal 38-113 [facility] Comment on above: Order Comment: Speci men Type: BLOOD SPECIMENOrdering Facility: [facility] Address: [address] Performed By: #### 1 988-5, 12978-2, HSTNT, , 2776- ####[facility] LABCLIA [id number] [place] [address] [place] ALT [Catalytic activity/Vol] 74 U/L High 10-54 [facility] Comment on above: Order Comment: Speci men Type: BLOOD SPECIMENOrdering Facility: [facility] Address: [address] Performed By: #### 1 988-5, 17266-2, HSTNT, , 2776-08 ####[facility] LABIA [id number] [place] [address] [place] Anion gap [Moles/Vol] 12 mmol/L Normal 9-18 [facility] Comment on above: Order Comment: Speci men Type: BLOOD SPECIMENOrdering Facility: [facility] Address: [address] [place], [place] [address] Performed By: #### 1 988-5, 23413-3, HSTNT, , 2776-08 ####[facility] LABCLIA [id number] [place] [address] [place] AST [Catalytic activity/Vol] 48 U/L High 14-40 [facility] Comment on above: Order Comment: Speci men Type: BLOOD SPECIMENOrdering Facility: [facility] Address: [address] Performed By: #### 1 988-5, 86647-1, HSTNT, , 2776- ####[facility] LABCLIA [id number] [place] [address] [place] Bilirubin [Mass/Vol] 2.2 mg/dL High 0.2-1.3 [facility] Comment on above: Order Comment: Speci men Type: BLOOD SPECIMENOrdering Facility: [facility] Address: [address] [place] [address] Performed By: #### 1 988-5, 28116-1, HSTNT, 26944-0, 2777-1 ####[facility] LABCLIA [id number] [place] [address] [place] Calcium [Mass/Vol] 7.9 mg/dL Low 8.5-10.2 [facility] Comment on above: Order Comment: Speci men Type: BLOOD SPECIMENOrdering Facility: [facility] Address: [address] [place] [address] Performed By: #### 1 988-5, 19604-6, HSTNT, 11970-5, 7-1 ####[facility] LABCLIA [id number] [place] [address] [place] Chloride [Moles/Vol] 91 mmol/L Low 97-105 [facility] Comment on above: Order Comment: Speci men Type: BLOOD SPECIMENOrdering Facility: [facility] Address: [address] [place] [address] Performed By: #### 1 988-5, 29586-2, HSTNT, 65568-7, 2776-1 ####[facility] LABCLIA [id number] [place] [address] [place] CO2 [Moles/Vol] 21 mmol/L Low 22-30 [facility] Comment on above: Order Comment: Speci men Type: BLOOD SPECIMENOrdering Facility: [facility] Address: [address] [place] [address] Performed By: #### 1 988-5, 22844-1, HSTNT, 98667-1, 2777-1 ####[facility] LABCLIA [id number] [place] [address] [place] Creatinine [Mass/Vol] 1.67 mg/dL High 0.73-1.22 [facility] Comment on above: Order Comment: Rasta kennedy Type: BLOOD SPECIMENOrdering Facility: [facility] Address: [address] [place] [address] Performed By: #### 1 988-5, 01881-1, HSTNT, 65136-1, 2776- ####[facility] LABCLIA [id number] [place] [address] [place] ESTIMATED GLOMERULAR FILTRATION RATE 52 mL/min/1.73m??? Low >=60 [facility] Comment on above: Order Comment: Rasta kennedy Type: BLOOD SPECIMENOrdering Facility: [facility] Address: [address] [place] [address] Result Comment: Karma mated Glomerular Filtration Rate [...] actual GFR. Performed By: #### 1 988-5, 71282-2, HSTNT, 44620-8, 2776-08 ####[facility] LABCLIA [id number] [place] [address] [place] Glucose [Mass/Vol] 130 mg/dL High 74-99 [facility] Comment on above: Order Comment: Rasta kennedy Type: BLOOD SPECIMENOrdering Facility: [facility] Address: [address] [place] [address] Result Comment: The [place] [employer] (ADA) provides guidance for cutoff [...] Standards of Medical Care in Diabetes 2016, [place] [employer]. Diabetes Care. 2016.39(Suppl 1). Performed By: #### 1 988-5, 07815-3, HSTNT, , 2776- ####[facility] LABIA [id number] [place] [address] [place] Potassium [Moles/Vol] 4.8 mmol/L Normal 3.7-5.1 [facility] Comment on above: Order Comment: Rasta kennedy Type: BLOOD SPECIMENOrdering Facility: [facility] Address: [address] [place] [address] Performed By: #### 1 988-5, 65985-2, HSTNT, , 2776-08 ####[facility] [id number] [place] [address] [place] Protein [Mass/Vol] 5.0 g/dL Low 6.3-8.0 [facility] Comment on above: Order Comment: Rasta kennedy Type: BLOOD SPECIMENOrdering Facility: [facility] Address: [address] [place] [address] Performed By: #### 1 988-5, 31529-2, HSTNT, , 2776-08 ####[facility] [id number] [place] [address] [place] Sodium [Moles/Vol] 124 mmol/L Low 136-144 [facility] Comment on above: Order Comment: Rasta kennedy Type: BLOOD SPECIMENOrdering Facility: [facility] Address: [address] [place] [address] Performed By: #### 1 988-5, 91527-9, HSTNT, , 2776-08 ####[facility] LABCLIA [id number] [place] [address] [place] Urea nitrogen [Mass/Vol] 76 mg/dL High 9-24 [facility] Comment on above: Order Comment: Speci men Type: BLOOD SPECIMENOrdering Facility: [facility] Address: [address] [place] [address] Performed By: #### 1 988-5, 49575-9, HSTNT, , 2776- ####[facility] LABCLIA [id number] [place] [address] [place] HIGH SENSITIVITY TROPONIN To n 04-08-2023 HIGH SENSITIVITY AZRA 91 ng/L High <12 [facility] Comment on above: Order Comment: Speci men Type: BLOOD SPECIMENOrdering Facility: [facility] Address: [address] [place], [place] [address] Result Comment: When assessing risk for acute [...] day MACE. Performed By: #### 1 988-5, 95125-3, HSTNT, , 2776-08 ####[facility] LABCLIA [id number] [place] [address] [place] Magnesium SerPl-mCncon 04-08 Magnesium [Mass/Vol] 2.8 mg/dL High 1.7-2.3 [facility] Comment on above: Order Comment: Speci men Type: BLOOD SPECIMENOrdering Facility: [facility] Address: [address] Performed By: #### 1 9123-9, 2776- ####[facility] LABCLIA [id number] [place] [address] [place] Magnesium [Mass/Vol] 2.7 mg/dL High 1.7-2.3 [facility] Comment on above: Order Comment: Speci men Type: BLOOD SPECIMENOrdering Facility: [facility] Address: [address] [place] [address] Performed By: #### 1 988-5, 33658-9, HSTNT, 53887-5, 2777-1 ####[facility] LABIA [id number] [place] [address] [place] Osmolality SerPlon Osmolality [Osmolality] 286 mosm/kg Normal 275-300 [facility] Comment on above: Order Comment: Speci men Type: BLOOD SPECIMENOrdering Facility: [facility] Address: [address] [place] [address] Performed By: #### 2 692-2 ####[facility] [id number] [place] [address] [place] Osmolality Uron 04-08-2023 Osmolality (U) [Osmolality] 547 mosm/kg Normal 50-1200 [facility] Comment on above: Order Comment: Speci men Type: URINE SPECIMENOrdering Facility: [facility] Address: [address] [place] [address] Performed By: #### 2 695-5 ####[facility] [id number] [place] [address] [place] PT panel Coag (PPP)on 2022 INR Coag (PPP) [Relative time] 1.2 {INR} Normal 0.9-1.3 [facility] Comment on above: Order Comment: Speci men Type: BLOOD SPECIMENOrdering Facility: [facility] Address: [address] [place] [address] Result Comment: Binta min K Antagonist (VKA) Therapeutic Range: INR 2 to 3 (Target INR of 2.5)Note: For patients treated with VKA drugs, such as warfarin, the [employer] 2012 Guideline recommends [...] al. Chest 2012, 141:7S-47SNishimura RA, et al. [facility] 2017, 70: 252-289 Performed By: #### 3 4528-0, 50329-2 ####[facility] LABCLIA [id number] [place] [address] [place] PT Coag (PPP) [Time] 12.7 s Normal 9.7-13.0 [facility] Comment on above: Order Comment: Speci men Type: BLOOD SPECIMENOrdering Facility: [facility] Address: [address] [place] [address] Performed By: #### 3 4528-0, 73820-2 ####[facility] LABCLIA [id number] [place] [address] [place] Phosphate SerPl-mCncon 04-08 Phosphate [Mass/Vol] 5.0 mg/dL High 2.7-4.8 [facility] Comment on above: Order Comment: Speci men Type: BLOOD SPECIMENOrdering Facility: [facility] Address: [address] [place] [id number] Performed By: #### 1 9123-9, 2777-1 ####[facility] LABCLIA [id number] [place] [address] [place] Phosphate [Mass/Vol] 5.4 mg/dL High 2.7-4.8 [facility] Comment on above: Order Comment: Speci men Type: BLOOD SPECIMENOrdering Facility: [facility] Address: [address] [facility] [place] [address] Performed By: #### 1 988-5, 78338-5, HSTNT, 76880-6, 2777-1 ####[facility] LABCLIA [id number] [place] [address] [place] SOCIAL WORKon 04-08-2023 SOCIAL WORK Normal [facility] THERAPY NTon 04-08-2023 THERAPY NT Normal [facility] Tacrolimus Bld-mCncon 2022 Tacrolimus (Bld) [Mass/Vol] 9.6 ng/mL Normal 5.0-20.0 [facility] Comment on above: Order Comment: Speci men Type: BLOOD SPECIMENOrdering Facility: [facility] Address: [address] [place] [address] Result Comment: Jennifer vidualized target levels for [...] Alinity i. Performed By: #### 1 1253-2 ####[facility] LABCLIA [id number] [place] [address] [place] XR CHEST 1V FRONTAL PORTon 0 04-08-2023 XR CHEST 1V FRONTAL PORT Normal [facility] aPTT PPPon 04-08-2023 aPTT Coag (PPP) [Time] 25.1 s Normal 23.0-32.4 [facility] Comment on above: Order Comment: Speci men Type: BLOOD SPECIMENOrdering Facility: [facility] Address: [address] [place] [address] Performed By: #### 3 4528-0, 80146-9 ####[facility] LABCLIA [id number] [place] [address] [place] CBC W Auto Differential pane l (Bld)on 04-07-2023 Basophils (Bld) [#/Vol] 0.00 10*3/uL Normal <0.11 [facility] Comment on above: Order Comment: Speci men Type: BLOOD SPECIMENOrdering Facility: [facility] Address: [address] [place] [address] Performed By: #### 5 7021-8 ####[facility] LABCLIA [id number] [place] [address] [place] Basophils/100 WBC (Bld) 0.0 % Normal [facility] Comment on above: Order Comment: Speci men Type: BLOOD SPECIMENOrdering Facility: [facility] Address: [address] [place] [address] Performed By: #### 5 7021-8 ####[facility] LABCLIA [id number] [place] [address] [place] Differential cell count method Nom (Bld) Manual Normal [facility] Comment on above: Order Comment: Speci men Type: BLOOD SPECIMENOrdering Facility: [facility] Address: [address] [place], [place] [address] Performed By: #### 5 7021-8 ####[facility] LABCLIA [id number] [place] [address] [place] Eosinophils (Bld) [#/Vol] 0.00 10*3/uL Normal <0.46 [facility] Comment on above: Order Comment: Speci men Type: BLOOD SPECIMENOrdering Facility: [facility] Address: [address] [place], [place] [address] Performed By: #### 5 7021-8 ####[facility] LABCLIA [id number] [address] [place] Eosinophils/100 WBC (Bld) 0.0 % Normal [facility] Comment on above: Order Comment: Speci men Type: BLOOD SPECIMENOrdering Facility: [facility] Address: [address] [place], [place] [address] Performed By: #### 5 7021-8 ####[facility] LABIA [id number] [place] [address] [place] Erythrocyte distribution width (RBC) [Ratio] 14.5 % Normal 11.5-15.0 [facility] Comment on above: Order Comment: Speci men Type: BLOOD SPECIMENOrdering Facility: [facility] Address: [address] [place] [address] Performed By: #### 5 7021-8 ####[facility] [id number] [address] [place] Hematocrit (Bld) [Volume fraction] 30.8 % Low 39.0-51.0 [facility] Comment on above: Order Comment: Speci men Type: BLOOD SPECIMENOrdering Facility: [facility] Address: [address] [place], [place] [address] Performed By: #### 5 7021-8 ####[facility] [id number] [place] [address] [place] Hemoglobin (Bld) [Mass/Vol] 11.1 g/dL Low 13.0-17.0 [facility] Comment on above: Order Comment: Speci men Type: BLOOD SPECIMENOrdering Facility: [facility] Address: [address] [place], [place] [address] Performed By: #### 5 7021-8 ####[facility] LABIA [id number] [place] [address] [place] Lymphocytes (Bld) [#/Vol] 0.22 10*3/uL Low 1.00-4.00 [facility] Comment on above: Order Comment: Speci men Type: BLOOD SPECIMENOrdering Facility: [facility] Address: [address] Performed By: #### 5 7021-8 ####[facility] LABIA [id number] [address] [place] [facility] Lymphocytes/100 WBC (Bld) 0.9 % Normal [facility] Comment on above: Order Comment: Speci men Type: BLOOD SPECIMENOrdering Facility: [facility] Address: [address] Performed By: #### 5 7021-8 ####[facility] LABIA [id number] [place] [address] [place] MCH (RBC) [Entitic mass] 33.9 pg Normal 26.0-34.0 [facility] Comment on above: Order Comment: Speci men Type: BLOOD SPECIMENOrdering Facility: [facility] Address: [address] [place], [place] [id number] Performed By: #### 5 7021-8 ####[facility]IA [id number] [place] [address] [place] MCHC (RBC) [Mass/Vol] 36.0 g/dL Normal 30.5-36.0 [facility] Comment on above: Order Comment: Speci men Type: BLOOD SPECIMENOrdering Facility: [facility] Address: [address] Performed By: #### 5 7021-8 ####[facility] LABIA [id number] [place] [address] [place] MCV (RBC) [Entitic vol] 94.2 fL Normal 80.0-100.0 [facility] Comment on above: Order Comment: Speci men Type: BLOOD SPECIMENOrdering Facility: [facility] Address: [address] Performed By: #### 5 7021-8 ####[facility]IA [id number] [place] [address] [place] [place] Monocytes (Bld) [#/Vol] 1.45 10*3/uL High <0.87 [facility] Comment on above: Order Comment: Speci men Type: BLOOD SPECIMENOrdering Facility: [facility] Address: [address] [address] Performed By: #### 5 7021-8 ####[facility] LABCLIA [id number] [place] [address] [place] Monocytes/100 WBC (Bld) 6.0 % Normal [facility] Comment on above: Order Comment: Speci men Type: BLOOD SPECIMENOrdering Facility: [facility] Address: [address] Performed By: #### 5 7021-8 ####[facility] LABCLIA [id number] [place] [address] [place] Neutrophils (Bld) [#/Vol] 22.45 10*3/uL High 1.45-7.50 [facility] Comment on above: Order Comment: Speci men Type: BLOOD SPECIMENOrdering Facility: [facility] Address: [address] Performed By: #### 5 7021-8 ####[facility] LABCLIA [id number] [place] [address] [place] Neutrophils/100 WBC (Bld) 93.1 % Normal [facility] Comment on above: Order Comment: Speci men Type: BLOOD SPECIMENOrdering Facility: [facility] Address: [address] [place], [place] [address] Performed By: #### 5 7021-8 ####[facility] LABCLIA [id number] [place] [address] [place] Nucleated RBC (Bld) [#/Vol] 10*3/uL Normal <0.01 [facility] Comment on above: Order Comment: Speci men Type: BLOOD SPECIMENOrdering Facility: [facility] Address: [address] Performed By: #### 5 7021-8 ####[facility] LABIA [id number] [address] [place] Nucleated RBC/100 WBC (Bld) [Ratio] 0.0 /100 WBC Normal [facility] Comment on above: Order Comment: Speci men Type: BLOOD SPECIMENOrdering Facility: [facility] Address: [address] [place] [address] Performed By: #### 5 7021-8 ####[facility] LABIA [id number] [place] [address] [place] Ovalocytes LM Ql (Bld) Few Normal [facility] Comment on above: Order Comment: Speci men Type: BLOOD SPECIMENOrdering Facility: [facility] Address: [address] [place] [address] Performed By: #### 5 7021-8 ####[facility] LABIA [id number] [place] [address] [place] Platelet mean volume (Bld) [Entitic vol] 11.6 fL Normal 9.0-12.7 [facility] Comment on above: Order Comment: Speci men Type: BLOOD SPECIMENOrdering Facility: [facility] Address: [address] [place], [place] [address] Performed By: #### 5 7021-8 ####[facility] LABIA [id number] [place] [address] [place] Platelets (Bld) [#/Vol] 54 10*3/uL Low 150-400 [facility] Comment on above: Order Comment: Speci men Type: BLOOD SPECIMENOrdering Facility: [facility] Address: [address] [place] [address] Result Comment: Resu lts checked and verified.No clot detected. Performed By: #### 5 7021-8 ####[facility] LABCLIA [id number] [place] [address] [place] Platelets Estimate (Bld) [#/Vol] Decreased Normal [facility] Comment on above: Order Comment: Speci men Type: BLOOD SPECIMENOrdering Facility: [facility] Address: [address] [place] [address] Performed By: #### 5 7021-8 ####[facility] LABCLIA [id number] [place] [address] [place] Polychromasia LM Ql (Bld) Slight Normal [facility] Comment on above: Order Comment: Speci men Type: BLOOD SPECIMENOrdering Facility: [facility] Address: [address] [place] [address] Performed By: #### 5 7021-8 ####[facility] LABCLIA [id number] [place] [address] [place] RBC (Bld) [#/Vol] 3.27 10*6/uL Low 4.20-6.00 [facility] Comment on above: Order Comment: Speci men Type: BLOOD SPECIMENOrdering Facility: [facility] Address: [address] [place], [place] [address] Performed By: #### 5 7021-8 ####[facility] LABCLIA [id number] [place] [address] [place] RBC FRAGMENTS Few Abnormal None Seen [facility] Comment on above: Order Comment: Speci men Type: BLOOD SPECIMENOrdering Facility: [facility] Address: [address] [place], [place] [address] Performed By: #### 5 7021-8 ####[facility] LABIA [id number] [place] [address] [place] RED CELL MORPH Reviewed: see result s of individual morphologies Normal [facility] Comment on above: Order Comment: Speci men Type: BLOOD SPECIMENOrdering Facility: [facility] Address: [facility] [address] [id number] Performed By: #### 5 7021-8 ####[facility] LABCLIA [id number] [place] [address] [place] WBC (Bld) [#/Vol] 24.11 10*3/uL High 3.70-11.00 [facility] Comment on above: Order Comment: Speci men Type: BLOOD SPECIMENOrdering Facility: [facility] Address: [address] Performed By: #### 5 7021-8 ####[facility] LABCLIA [id number] [place] [address] [place] CNPNon 04-07-2023 CNPN Normal [facility] CONSULTon 04-07-2023 CONSULT Normal [facility] CRP SerPl-mCncon 04-07-2023 CRP [Mass/Vol] 1.5 mg/dL High <0.9 [facility] Comment on above: Order Comment: Speci men Type: BLOOD SPECIMENOrdering Facility: [facility] Address: [address] [place], [place] [address] Performed By: #### 2 4323-8, 1987-5, 38160-5, 2777-1 ####[facility] LABCLIA [id number] [place] [address] [place] Comprehensive metabolic 2000 panelon 04-07-2023 Albumin [Mass/Vol] 2.9 g/dL Low 3.9-4.9 [facility] Comment on above: Order Comment: Speci men Type: BLOOD SPECIMENOrdering Facility: [facility] Address: [address] [place], [place] [address] Performed By: #### 2 4323-8, HSTNT, 01245-6 ####[facility] LABCLIA [id number] [place] [address] [place] ALP [Catalytic activity/Vol] 79 U/L Normal 38-113 [facility] Comment on above: Order Comment: Speci men Type: BLOOD SPECIMENOrdering Facility: [facility] Address: [address] Performed By: #### 2 4323-8, HSTNT, 73275-8 ####[facility] LABCLIA [id number] [place] [address] [place] ALT [Catalytic activity/Vol] 82 U/L High 10-54 [facility] Comment on above: Order Comment: Speci men Type: BLOOD SPECIMENOrdering Facility: [facility] Address: [address] [address] Performed By: #### 2 4323-8, HSTNT, 72923-7 ####[facility] LABCLIA [id number] [place] [address] [place] Anion gap [Moles/Vol] 12 mmol/L Normal 9-18 [facility] Comment on above: Order Comment: Speci men Type: BLOOD SPECIMENOrdering Facility: [facility] Address: [address] [place], [place] [address] Performed By: #### 2 4323-8, HSTNT, 60779-9 ####[facility] LABCLIA [id number] [place] [address] [place] AST [Catalytic activity/Vol] 69 U/L High 14-40 [facility] Comment on above: Order Comment: Speci men Type: BLOOD SPECIMENOrdering Facility: [facility] Address: [address] Performed By: #### 2 4323-8, HSTNT, 33905-4 ####[facility] LABCLIA [id number] [place] [address] [place] Bilirubin [Mass/Vol] 2.1 mg/dL High 0.2-1.3 [facility] Comment on above: Order Comment: Speci men Type: BLOOD SPECIMENOrdering Facility: [facility] Address: [address] Performed By: #### 2 4323-8, HSTNT, 88973-4 ####[facility] LABCLIA [id number] [place] [address] [place] Calcium [Mass/Vol] 7.9 mg/dL Low 8.5-10.2 [facility] Comment on above: Order Comment: Speci men Type: BLOOD SPECIMENOrdering Facility: [facility] Address: [address] [address] Performed By: #### 2 4323-8, HSTNT, 81221-7 ####[facility] LABCLIA [id number] [place] [address] [place] Chloride [Moles/Vol] 94 mmol/L Low 97-105 [facility] Comment on above: Order Comment: Speci men Type: BLOOD SPECIMENOrdering Facility: [facility] Address: [address] [place] [address] Performed By: #### 2 4323-8, HSTNT, 28243-0 ####[facility] LABCLIA [id number] [place] [address] [place] CO2 [Moles/Vol] 20 mmol/L Low 22-30 [facility] Comment on above: Order Comment: Speci men Type: BLOOD SPECIMENOrdering Facility: [facility] Address: [address] Performed By: #### 2 4323-8, HSTNT, 87438-1 ####[facility] LABCLIA [id number] [place] [address] [place] Creatinine [Mass/Vol] 1.64 mg/dL High 0.73-1.22 [facility] Comment on above: Order Comment: Speci men Type: BLOOD SPECIMENOrdering Facility: [facility] Address: [address] [place] [address] Performed By: #### 2 4323-8, HSTNT, 37576-4 ####[facility] LABIA [id number] [place] [address] [place] ESTIMATED GLOMERULAR FILTRATION RATE 54 mL/min/1.73m??? Low >=60 [facility] Comment on above: Order Comment: Rasta kennedy Type: BLOOD SPECIMENOrdering Facility: [facility] Address: [address] [address] Result Comment: Karma mated Glomerular Filtration Rate [...] GFR. Performed By: #### 2 4323-8, HSTNT, 89045-3 ####[facility] LABIA [id number] [place] [address] [place] Glucose [Mass/Vol] 135 mg/dL High 74-99 [facility] Comment on above: Order Comment: Rasta kennedy Type: BLOOD SPECIMENOrdering Facility: [facility] Address: [address] [place] [address] Result Comment: The [employer] (ADA) provides guidance for cutoff [...] Standards of Medical Care in Diabetes 2016, [employer]. Diabetes Care. 2016.39(Suppl 1). Performed By: #### 2 4323-8, HSTNT, 51109-9 ####[facility] LABCLIA [id number] [place] [address] [place] Potassium [Moles/Vol] 4.5 mmol/L Normal 3.7-5.1 [facility] Comment on above: Order Comment: Speci men Type: BLOOD SPECIMENOrdering Facility: [facility] Address: [address] [place], [place] [address] Performed By: #### 2 4323-8, HSTNT, 76043-3 ####[facility] LABCLIA [id number] [place] [address] [place] Protein [Mass/Vol] 5.2 g/dL Low 6.3-8.0 [facility] Comment on above: Order Comment: Speci men Type: BLOOD SPECIMENOrdering Facility: [facility] Address: [address] [place], [place] [address] Performed By: #### 2 4323-8, HSTNT, 79821-6 ####[facility] LABCLIA [id number] [place] [address] [place] Sodium [Moles/Vol] 126 mmol/L Low 136-144 [facility] Comment on above: Order Comment: Speci men Type: BLOOD SPECIMENOrdering Facility: [facility] Address: [address] Performed By: #### 2 4323-8, HSTNT, 47673-1 ####[facility] LABCLIA [id number] [place] [address] [place] Urea nitrogen [Mass/Vol] 67 mg/dL High 9-24 [facility] Comment on above: Order Comment: Speci men Type: BLOOD SPECIMENOrdering Facility: [facility] Address: [address] Performed By: #### 2 4323-8, HSTNT, 95539-0 ####[facility] LABCLIA [id number] [place] [address] [place] Albumin [Mass/Vol] 3.1 g/dL Low 3.9-4.9 [facility] Comment on above: Order Comment: Speci men Type: BLOOD SPECIMENOrdering Facility: [facility] Address: [address] [place] [address] Performed By: #### 2 4328, 1987-12, , 2776-08 ####[facility] LABCLIA [id number] [place] [address] [place] ALP [Catalytic activity/Vol] 80 U/L Normal 38-113 [facility] Comment on above: Order Comment: Speci men Type: BLOOD SPECIMENOrdering Facility: [facility] Address: [address] [place] [address] Performed By: #### 2 8, 1987-12, , 2776-08 ####[facility] LABIA [id number] [place] [address] [place] ALT [Catalytic activity/Vol] 85 U/L High 10-54 [facility] Comment on above: Order Comment: Speci men Type: BLOOD SPECIMENOrdering Facility: [facility] Address: [address] [place] [address] Performed By: #### 2 8, 1987-12, , 2776-08 ####[facility] LABIA [id number] [place] [id number] [place] Anion gap [Moles/Vol] 13 mmol/L Normal 9-18 [facility] Comment on above: Order Comment: Speci men Type: BLOOD SPECIMENOrdering Facility: [facility] Address: [address] [place] [address] Performed By: #### 2 4328, 1987-12, , 2776-08 ####[facility] LABCLIA [id number] [place] [address] [place] AST [Catalytic activity/Vol] 78 U/L High 14-40 [facility] Comment on above: Order Comment: Speci men Type: BLOOD SPECIMENOrdering Facility: [facility] Address: [address] [place] [address] Performed By: #### 2 4328, 1987-12, , 2776-08 ####[facility] LABCLIA [id number] [place] [address] [place] Bilirubin [Mass/Vol] 2.1 mg/dL High 0.2-1.3 [facility] Comment on above: Order Comment: Speci men Type: BLOOD SPECIMENOrdering Facility: [facility] Address: [address] [place] [address] Performed By: #### 2 4328, 1987-12, , 2776-08 ####[facility] LABCLIA [id number] [place] [address] [place] Calcium [Mass/Vol] 7.9 mg/dL Low 8.5-10.2 [facility] Comment on above: Order Comment: Speci men Type: BLOOD SPECIMENOrdering Facility: [facility] Address: [address] [place], [place] [address] Performed By: #### 2 4328, 1987-12, , 2776-08 ####[facility] LABCLIA [id number] [place] [address] [place] Chloride [Moles/Vol] 94 mmol/L Low 97-105 [facility] Comment on above: Order Comment: Speci men Type: BLOOD SPECIMENOrdering Facility: [facility] Address: [address] [place] [address] Performed By: #### 2 4328, 1987-12, , 2776-08 ####[facility] LABCLIA [id number] [place] [address] [place] CO2 [Moles/Vol] 18 mmol/L Low 22-30 [facility] Comment on above: Order Comment: Speci men Type: BLOOD SPECIMENOrdering Facility: [facility] Address: [address] [place] [address] Performed By: #### 2 43238, 1987-12, , 2776-08 ####[facility] LABIA [id number] [place] [address] [place] Creatinine [Mass/Vol] 1.57 mg/dL High 0.73-1.22 [facility] Comment on above: Order Comment: Speci men Type: BLOOD SPECIMENOrdering Facility: [facility] Address: [address] [place] [address] Performed By: #### 2 4328, 1987-12, , 2776-08 ####[facility] [id number] [place] [address] [place] ESTIMATED GLOMERULAR FILTRATION RATE 56 mL/min/1.73m??? Low >=60 [facility] Comment on above: Order Comment: Speci men Type: BLOOD SPECIMENOrdering Facility: [facility] Address: [address] [place] [address] Result Comment: Karma mated Glomerular Filtration Rate [...] actual GFR. Performed By: #### 2 4323-8, 1987-12, , 2776-08 ####[facility] LABIA [id number] [place] [id number] [place] Glucose [Mass/Vol] 141 mg/dL High 74-99 [facility] Comment on above: Order Comment: Speci men Type: BLOOD SPECIMENOrdering Facility: [facility] Address: [address] [place], [place] [id number] Result Comment: The [place] Diabetes [employer] (ADA) provides guidance for cutoff [...] Standards of Medical Care in Diabetes 2016, [place] [employer]. Diabetes Care. 2016.39(Suppl 1). Performed By: #### 2 43238, 1987-12, , 2776-08 ####[facility] LABCLIA [id number] [place] [address] [place] Potassium [Moles/Vol] 4.6 mmol/L Normal 3.7-5.1 [facility] Comment on above: Order Comment: Rasta kennedy Type: BLOOD SPECIMENOrdering Facility: [facility] Address: [address] [place], [place] [id number] Performed By: #### 2 43210-29, 1987-12, , 2776-08 ####[facility] LABCLIA [id number] [place] [address] [place] Protein [Mass/Vol] 5.2 g/dL Low 6.3-8.0 [facility] Comment on above: Order Comment: Rasta kennedy Type: BLOOD SPECIMENOrdering Facility: [facility] Address: [address] [place], [place] [id number] Performed By: #### 2 4328, 1987-12, , 2776-08 ####[facility] LABCLIA [id number] [place] [address] [place] Sodium [Moles/Vol] 125 mmol/L Low 136-144 [facility] Comment on above: Order Comment: Yuryi men Type: BLOOD SPECIMENOrdering Facility: [facility] Address: [address] [place] [address] Performed By: #### 2 4323-03, 1987-12, , 2776-08 ####[facility] LABCLIA [id number] [place] [address] [place] Urea nitrogen [Mass/Vol] 66 mg/dL High 9-24 [facility] Comment on above: Order Comment: Yuryi men Type: BLOOD SPECIMENOrdering Facility: [facility] Address: [address] [place] [address] Performed By: #### 2 4323-03, 1987-12, , 2776-08 ####[facility] LABCLIA [id number] [place] [address] [place] ECG COMPLETEon 04-07-2023 ECG COMPLETE Normal [facility] HIGH SENSITIVITY TROPONIN To n 04-07-2023 HIGH SENSITIVITY AZRA 121 ng/L High <12 [facility] Comment on above: Order Comment: Yuryi brent Type: BLOOD SPECIMENOrdering Facility: [facility] Address: [address] [place] [address] Result Comment: When assessing risk for acute [...] MACE. Performed By: #### 2 4323-8, HSTNT, 94493-8 ####[facility] LABCLIA [id number] [place] [address] [place] Magnesium SerPl-mCncon 04-07 Magnesium [Mass/Vol] 2.4 mg/dL High 1.7-2.3 [facility] Comment on above: Order Comment: Speci men Type: BLOOD SPECIMENOrdering Facility: [facility] Address: [address] [place], [place] [id number] Performed By: #### 2 4323-8, 1987-5, 38612-1, 2777-1 ####[facility] LABCLIA [id number] [place] [id number] [place] Osmolality Uron 04-07-2023 Osmolality (U) [Osmolality] 645 mosm/kg Normal 50-1200 [facility] Comment on above: Order Comment: Speci men Type: URINE SPECIMENOrdering Facility: [facility] Address: [address] [place] [address] Performed By: #### 2 695-5 ####[facility] LABCLIA [id number] [place] [address] [place] PT panel Coag (PPP)on 2022 INR Coag (PPP) [Relative time] 1.3 {INR} Normal 0.9-1.3 [facility] Comment on above: Order Comment: Speci men Type: BLOOD SPECIMENOrdering Facility: [facility] Address: [address] [place] [address] Result Comment: Binta min K Antagonist (VKA) Therapeutic Range: INR 2 to 3 (Target INR of 2.5)Note: For patients treated with VKA drugs, such as warfarin, the [employer] 2012 Guideline recommends [...] of 2.5 to 3.5 (target INR of 3).Guyatt GH, et al. Chest 2012, 141:7S-47SSindhu RA, et al. [facility] 2017, 70: 252-289 Performed By: #### 3 4528-0, 09038-6 ####[facility] LABCLIA [id number] [place] [address] [place] PT Coag (PPP) [Time] 13.5 s High 9.7-13.0 [facility] Comment on above: Order Comment: Speci men Type: BLOOD SPECIMENOrdering Facility: [facility] Address: [address] [place] [address] Performed By: #### 3 4528-0, 12606-0 ####[facility] LABCLIA [id number] [place] [address] [place] Phosphate SerPl-mCncon 04-07 Phosphate [Mass/Vol] 4.8 mg/dL Normal 2.7-4.8 [facility] Comment on above: Order Comment: Speci men Type: BLOOD SPECIMENOrdering Facility: [facility] Address: [address] [place] [address] Performed By: #### 2 4323-8, 1987-5, 04567-8, 2777-1 ####[facility] LABIA [id number] [place] [address] [place] Procalcitonin SerPl-mCncon 0 04-07-2023 Procalcitonin [Mass/Vol] 4.14 ng/mL High <0.09 [facility] Comment on above: Order Comment: Speci men Type: BLOOD SPECIMENOrdering Facility: [facility] Address: [address] [place] [address] Result Comment: For a guided interpretation of test results, please visit the Change in Procalcitonin Calculator, [email or web address]. Performed By: #### 3 3959-8 ####[facility] LABCLIA [id number] [address] Procalcitonin [Mass/Vol] 3.45 ng/mL High <0.09 [facility] Comment on above: Order Comment: Speci men Type: BLOOD SPECIMENOrdering Facility: [facility] Address: [address] [place] [address] Result Comment: For a guided interpretation of test results, please visit the Change in Procalcitonin Calculator, [email or web address]. Performed By: #### 2 4323-8, HSTNT, 32867-2 ####[facility] LABCLIA [id number] [place] [address] [place] Sodium ?Tm Ur-sCncon 023 Sodium Unsp time (U) [Moles/Vol] <20 Normal 14-216 [facility] Comment on above: Order Comment: Speci men Type: URINE SPECIMENOrdering Facility: [facility] Address: [address] [place] [address] Performed By: #### 3 5678-2 ####[facility] LABCLIA [id number] [place] [address] [place] THERAPY NTon 04-07-2023 THERAPY NT Normal [facility] TYPE + SCREENon 04-07-2023 ABO A Normal [facility] Comment on above: Order Comment: Speci men Type: BLOOD SPECIMENOrdering Facility: [facility] Address: [address] [place] [address] Performed By: #### T SCR ####[facility] BLOOD BANKCLIA [id number] [address] [place] HISTORICAL AB SCR STATUS Negative Normal [facility] Comment on above: Order Comment: Speci men Type: BLOOD SPECIMENOrdering Facility: [facility] Address: [address] [place] [address] Performed By: #### T SCR ####[facility] BLOOD BANKIA [id number] [address] [place] [facility] Rh Nom (Bld) Positive Normal [facility] Comment on above: Order Comment: Speci men Type: BLOOD SPECIMENOrdering Facility: [facility] Address: [address] [address] Performed By: #### T SCR ####[facility] BLOOD BANKCLIA [id number] [address] [place] TYPE AND SCREEN EXPIRATION 04/10/2023 23:59 Normal [facility] Comment on above: Order Comment: Speci men Type: BLOOD SPECIMENOrdering Facility: [facility] Address: [address] [place] [address] Performed By: #### T SCR ####[facility] BLOOD BANKIA [id number] [address] [place] Tacrolimus Bld-mCncon 2022 Tacrolimus (Bld) [Mass/Vol] 2.8 ng/mL Low 5.0-20.0 [facility] Comment on above: Order Comment: Speci men Type: BLOOD SPECIMENOrdering Facility: [facility] Address: [address] [place] [address] Result Comment: Jennifer vidualized target levels for [...] situation. Test performed by chemiluminescent immunoassay using [employer] Al[employer] i. Performed By: #### 1 1253-2 ####[facility] LABCLIA [id number] [address] [place] XR CHEST 1V FRONTAL PORTon 0 04-07-2023 XR CHEST 1V FRONTAL PORT Normal [facility] aPTT PPPon 04-07-2023 aPTT Coag (PPP) [Time] 26.4 s Normal 23.0-32.4 [facility] Comment on above: Order Comment: Speci men Type: BLOOD SPECIMENOrdering Facility: [facility] Address: [address] [place] [address] Performed By: #### 3 4528-0, 68828-3 ####[facility] LABCLIA [id number] [place] [address] [place] ALLIED HEALTHon 04-06-2023 ALLIED HEALTH Normal [facility] CASE MGT INIT ASSESon 2022 CASE MGT INIT ASSES Normal [facility] CBC W Auto Differential pane l (Bld)on 04-06-2023 Basophils (Bld) [#/Vol] 0.04 10*3/uL Normal <0.11 [facility] Comment on above: Order Comment: Speci men Type: BLOOD SPECIMENOrdering Facility: [facility] Address: [address] [place] [address] Performed By: #### 5 7021-8 ####[facility] LABCLIA [id number] [place] [address] [place] Basophils/100 WBC (Bld) 0.2 % Normal [facility] Comment on above: Order Comment: Speci men Type: BLOOD SPECIMENOrdering Facility: [facility] Address: [address] [place] [address] Performed By: #### 5 7021-8 ####[facility] LABCLIA [id number] [place] [address] [place] Differential cell count method Nom (Bld) Auto Normal [facility] Comment on above: Order Comment: Speci men Type: BLOOD SPECIMENOrdering Facility: [facility] Address: [address] [place] [address] Performed By: #### 5 7021-8 ####[facility] LABCLIA [id number] [place] [address] [place] Eosinophils (Bld) [#/Vol] 0.03 10*3/uL Normal <0.46 [facility] Comment on above: Order Comment: Speci men Type: BLOOD SPECIMENOrdering Facility: [facility] Address: [address] [address] Performed By: #### 5 7021-8 ####[facility] LABIA [id number] [address] STATES OF [facility] Eosinophils/100 WBC (Bld) 0.1 % Normal [facility] Comment on above: Order Comment: Speci men Type: BLOOD SPECIMENOrdering Facility: [facility] Address: [address] Performed By: #### 5 7021-8 ####[facility] LABIA [id number] [address] [place] Erythrocyte distribution width (RBC) [Ratio] 14.2 % Normal 11.5-15.0 [facility] Comment on above: Order Comment: Speci men Type: BLOOD SPECIMENOrdering Facility: [facility] Address: [address] [place], [place] [address] Performed By: #### 5 7021-8 ####[facility] LABIA [id number] [address] [place] Hematocrit (Bld) [Volume fraction] 28.2 % Low 39.0-51.0 [facility] Comment on above: Order Comment: Speci men Type: BLOOD SPECIMENOrdering Facility: [facility] Address: [address] Performed By: #### 5 7021-8 ####[facility] LABIA [id number] [place] [address] [place] Hemoglobin (Bld) [Mass/Vol] 10.1 g/dL Low 13.0-17.0 [facility] Comment on above: Order Comment: Speci men Type: BLOOD SPECIMENOrdering Facility: [facility] Address: [address] [place], [place] [address] Performed By: #### 5 7021-8 ####[facility] LABCLIA [id number] [place] [address] [place] Immature granulocytes (Bld) [#/Vol] 0.23 10*3/uL High <0.10 [facility] Comment on above: Order Comment: Speci men Type: BLOOD SPECIMENOrdering Facility: [facility] Address: [address] [place], [place] [address] Performed By: #### 5 7021-8 ####[facility] LABCLIA [id number] [place] [address] [place] Immature granulocytes/100 WBC (Bld) 1.0 % Normal [facility] Comment on above: Order Comment: Speci men Type: BLOOD SPECIMENOrdering Facility: [facility] Address: [address] [place], [place] [address] Performed By: #### 5 7021-8 ####[facility] LABCLIA [id number] [place] [address] [place] Lymphocytes (Bld) [#/Vol] 0.67 10*3/uL Low 1.00-4.00 [facility] Comment on above: Order Comment: Speci men Type: BLOOD SPECIMENOrdering Facility: [facility] Address: [address] [place], [place] [address] Performed By: #### 5 7021-8 ####[facility] LABCLIA [id number] [place] [address] [place] Lymphocytes/100 WBC (Bld) 2.9 % Normal [facility] Comment on above: Order Comment: Speci men Type: BLOOD SPECIMENOrdering Facility: [facility] Address: [address] [place], [place] [address] Performed By: #### 5 7021-8 ####[facility] LABCLIA [id number] [place] [address] MCH (RBC) [Entitic mass] 33.9 pg Normal 26.0-34.0 [facility] Comment on above: Order Comment: Speci men Type: BLOOD SPECIMENOrdering Facility: [facility] Address: [address] [place] [address] Performed By: #### 5 7021-8 ####[facility] LABCLIA [id number] [place] [address] [place] MCHC (RBC) [Mass/Vol] 35.8 g/dL Normal 30.5-36.0 [facility] Comment on above: Order Comment: Speci men Type: BLOOD SPECIMENOrdering Facility: [facility] Address: [address] [place] [address] Performed By: #### 5 7021-8 ####[facility] LABCLIA [id number] [place] [address] [place] MCV (RBC) [Entitic vol] 94.6 fL Normal 80.0-100.0 [facility] Comment on above: Order Comment: Speci men Type: BLOOD SPECIMENOrdering Facility: [facility] Address: [address] [place] [address] Performed By: #### 5 7021-8 ####[facility] LABIA [id number] [place] [address] [place] Monocytes (Bld) [#/Vol] 1.21 10*3/uL High <0.87 [facility] Comment on above: Order Comment: Speci men Type: BLOOD SPECIMENOrdering Facility: [facility] Address: [address] [place], [place] [address] Performed By: #### 5 7021-8 ####[facility] LABCLIA [id number] [address] [place] Monocytes/100 WBC (Bld) 5.2 % Normal [facility] Comment on above: Order Comment: Speci men Type: BLOOD SPECIMENOrdering Facility: [facility] Address: [address] Performed By: #### 5 7021-8 ####[facility] LABCLIA [id number] [place] [address] [place] Neutrophils (Bld) [#/Vol] 21.30 10*3/uL High 1.45-7.50 [facility] Comment on above: Order Comment: Speci men Type: BLOOD SPECIMENOrdering Facility: [facility] Address: [address] Performed By: #### 5 7021-8 ####[facility] LABCLIA [id number] [place] [address] [place] Neutrophils/100 WBC (Bld) 90.6 % Normal [facility] Comment on above: Order Comment: Speci men Type: BLOOD SPECIMENOrdering Facility: [facility] Address: [address] Performed By: #### 5 7021-8 ####[facility] LABCLIA [id number] [place] [address] [place] Nucleated RBC (Bld) [#/Vol] 10*3/uL Normal <0.01 [facility] Comment on above: Order Comment: Speci men Type: BLOOD SPECIMENOrdering Facility: [facility] Address: [address] Performed By: #### 5 7021-8 ####[facility] LABCLIA [id number] [place] [address] [place] Nucleated RBC/100 WBC (Bld) [Ratio] 0.0 /100 WBC Normal [facility] Comment on above: Order Comment: Speci men Type: BLOOD SPECIMENOrdering Facility: [facility] Address: [address] Performed By: #### 5 7021-8 ####[facility] LABCLIA [id number] [place] [address] [place] Platelet mean volume (Bld) [Entitic vol] 10.5 fL Normal 9.0-12.7 [facility] Comment on above: Order Comment: Speci men Type: BLOOD SPECIMENOrdering Facility: [facility] Address: [address] [place] [address] Performed By: #### 5 7021-8 ####[facility] LABIA [id number] [place] [address] [place] Platelets (Bld) [#/Vol] 74 10*3/uL Low 150-400 [facility] Comment on above: Order Comment: Speci men Type: BLOOD SPECIMENOrdering Facility: [facility] Address: [address] [place] [address] Result Comment: No c lot detected. Performed By: #### 5 7021-8 ####[facility] LABIA [id number] [place] [address] [place] RBC (Bld) [#/Vol] 2.98 10*6/uL Low 4.20-6.00 [facility] Comment on above: Order Comment: Speci men Type: BLOOD SPECIMENOrdering Facility: [facility] Address: [address] [place] [address] Performed By: #### 5 7021-8 ####[facility] LABIA [id number] [place] [address] [place] WBC (Bld) [#/Vol] 23.48 10*3/uL High 3.70-11.00 [facility] Comment on above: Order Comment: Speci men Type: BLOOD SPECIMENOrdering Facility: [facility] Address: [address] [place] [address] Performed By: #### 5 7021-8 ####[facility] LABIA [id number] [address] [place] CBC panel Auto (Bld)on 04-06 Erythrocyte distribution width (RBC) [Ratio] 14.5 % Normal 11.5-15.0 [facility] Comment on above: Order Comment: Speci men Type: BLOOD SPECIMENOrdering Facility: [facility] Address: [address] [place] [address] Performed By: #### 5 8410-2 ####[facility] LABIA [id number] [address] Hematocrit (Bld) [Volume fraction] 29.6 % Low 39.0-51.0 [facility] Comment on above: Order Comment: Speci men Type: BLOOD SPECIMENOrdering Facility: [facility] Address: [address] [place] [address] Performed By: #### 5 8410-2 ####[facility] LABIA [id number] [address] Hemoglobin (Bld) [Mass/Vol] 10.7 g/dL Low 13.0-17.0 [facility] Comment on above: Order Comment: Speci men Type: BLOOD SPECIMENOrdering Facility: [facility] Address: [address] [place] [address] Performed By: #### 5 8410-2 ####[facility] LABIA [id number] [address] [place] MCH (RBC) [Entitic mass] 34.7 pg High 26.0-34.0 [facility] Comment on above: Order Comment: Speci men Type: BLOOD SPECIMENOrdering Facility: [facility] Address: [address] [place] [address] Performed By: #### 5 8410-2 ####[facility] LABIA [id number] [address] [place] MCHC (RBC) [Mass/Vol] 36.1 g/dL High 30.5-36.0 [facility] Comment on above: Order Comment: Speci men Type: BLOOD SPECIMENOrdering Facility: [facility] Address: [address] Performed By: #### 5 8410-2 ####[facility] [id number] [place] [address] [place] MCV (RBC) [Entitic vol] 96.1 fL Normal 80.0-100.0 [facility] Comment on above: Order Comment: Speci men Type: BLOOD SPECIMENOrdering Facility: [facility] Address: [address] Performed By: #### 5 8410-2 ####[facility] [id number] [place] [address] [place] Nucleated RBC (Bld) [#/Vol] 0.02 10*3/uL High <0.01 [facility] Comment on above: Order Comment: Speci men Type: BLOOD SPECIMENOrdering Facility: [facility] Address: [address] Performed By: #### 5 8410-2 ####[facility] [id number] [place] [address] [place] Platelet mean volume (Bld) [Entitic vol] 11.2 fL Normal 9.0-12.7 [facility] Comment on above: Order Comment: Speci men Type: BLOOD SPECIMENOrdering Facility: [facility] Address: [address] Performed By: #### 5 8410-2 ####[facility] [id number] [place] [address] [place] Platelets (Bld) [#/Vol] 39 10*3/uL Low 150-400 [facility] Comment on above: Order Comment: Speci men Type: BLOOD SPECIMENOrdering Facility: [facility] Address: [address] [address] Result Comment: Resu lts checked and verified.No clot detected. Performed By: #### 5 8410-2 ####[facility] LABIA [id number] [place] [address] [place] RBC (Bld) [#/Vol] 3.08 10*6/uL Low 4.20-6.00 [facility] Comment on above: Order Comment: Speci men Type: BLOOD SPECIMENOrdering Facility: [facility] Address: [address] [address] Performed By: #### 5 8410-2 ####[facility] [id number] [place] [address] [place] WBC (Bld) [#/Vol] 34.26 10*3/uL High 3.70-11.00 [facility] Comment on above: Order Comment: Speci men Type: BLOOD SPECIMENOrdering Facility: [facility] Address: [address] [place] [address] Performed By: #### 5 8410-2 ####[facility] [id number] [address] [place] CMV DNA DETECTION AND QUANTo n 04-06-2023 CMV DNA DEVYN+probe Qn (P) Not detected Normal Not Detected [facility] Comment on above: Order Comment: Speci men Type: BLOOD SPECIMENOrdering Facility: [facility] Address: [address] [address] Performed By: #### C MVQNT ####[facility] [id number] [place] [address] [place] CRP SerPl-mCncon 04-06-2023 CRP [Mass/Vol] 0.9 mg/dL High <0.9 [facility] Comment on above: Order Comment: Speci men Type: BLOOD SPECIMENOrdering Facility: [facility] Address: [address] [place], [place] [address] Performed By: #### 1 988-5, 74281-8, HSTNT, 66298-6, 2777-1 ####[facility] LABCLIA [id number] [place] [address] [place] Comprehensive metabolic 2000 panelon 04-06-2023 Albumin [Mass/Vol] 3.2 g/dL Low 3.9-4.9 [facility] [place] Comment on above: Order Comment: Speci men Type: BLOOD SPECIMENOrdering Facility: [facility] Address: [address] Performed By: #### 2 4323-8 ####[facility] LABCLIA [id number] [place] [address] [place] ALP [Catalytic activity/Vol] 81 U/L Normal 38-113 [facility] Comment on above: Order Comment: Speci men Type: BLOOD SPECIMENOrdering Facility: [facility] Address: [address] Performed By: #### 2 4323-8 ####[facility] LABCLIA [id number] [place] [address] [place] ALT [Catalytic activity/Vol] 90 U/L High 10-54 [facility] Comment on above: Order Comment: Speci men Type: BLOOD SPECIMENOrdering Facility: [facility] Address: [address] [place] [address] Performed By: #### 2 4323-8 ####[facility] LABCLIA [id number] [place] [address] [place] Anion gap [Moles/Vol] 12 mmol/L Normal 9-18 [facility] Comment on above: Order Comment: Speci men Type: BLOOD SPECIMENOrdering Facility: [facility] Address: [address] Performed By: #### 2 4323-8 ####[facility] LABCLIA [id number] [place] [address] [place] AST [Catalytic activity/Vol] 126 U/L High 14-40 [facility] Comment on above: Order Comment: Speci men Type: BLOOD SPECIMENOrdering Facility: [facility] Address: [address] [place] [address] Performed By: #### 2 4323-8 ####[facility] LABCLIA [id number] [place] [address] [place] Bilirubin [Mass/Vol] 2.5 mg/dL High 0.2-1.3 [facility] Comment on above: Order Comment: Speci men Type: BLOOD SPECIMENOrdering Facility: [facility] Address: [address] [place] [address] Performed By: #### 2 4323-8 ####[facility] LABCLIA [id number] [place] [address] [place] Calcium [Mass/Vol] 8.1 mg/dL Low 8.5-10.2 [facility] [place] Comment on above: Order Comment: Speci men Type: BLOOD SPECIMENOrdering Facility: [facility] Address: [address] [place] [address] Performed By: #### 2 4323-8 ####[facility] LABCLIA [id number] [place] [address] [place] Chloride [Moles/Vol] 101 mmol/L Normal 97-105 [facility] Comment on above: Order Comment: Speci men Type: BLOOD SPECIMENOrdering Facility: [facility] Address: [address] [place], [place] [address] Performed By: #### 2 4323-8 ####[facility] LABCLIA [id number] [place] [address] [place] CO2 [Moles/Vol] 18 mmol/L Low 22-30 [facility] Comment on above: Order Comment: Speci men Type: BLOOD SPECIMENOrdering Facility: [facility] Address: [address] [address] Performed By: #### 2 4323-8 ####[facility] [id number] [address] [place] Creatinine [Mass/Vol] 1.49 mg/dL High 0.73-1.22 [facility] Comment on above: Order Comment: Speci men Type: BLOOD SPECIMENOrdering Facility: [facility] Address: [address] [address] Performed By: #### 2 4323-8 ####[facility] [id number] [address] [place] ESTIMATED GLOMERULAR FILTRATION RATE 60 mL/min/1.73m??? Normal >=60 [facility] Comment on above: Order Comment: Speci men Type: BLOOD SPECIMENOrdering Facility: [facility] Address: [address] [place] [address] Result Comment: Karma mated Glomerular Filtration Rate [...] actual GFR. Performed By: #### 2 4323-8 ####[facility] LABIA [id number] [place] [address] [place] Glucose [Mass/Vol] 162 mg/dL High 74-99 [facility] [place] Comment on above: Order Comment: Speci men Type: BLOOD SPECIMENOrdering Facility: [facility] Address: [address] [place] [address] Result Comment: The [place] [employer] (ADA) provides guidance for cutoff [...] Standards of Medical Care in Diabetes 2016, [place] [employer]. Diabetes Care. 2016.39(Suppl 1). Performed By: #### 2 4323-8 ####[facility] LABIA [id number] [place] [address] [place] Potassium [Moles/Vol] 4.4 mmol/L Normal 3.7-5.1 [facility] Comment on above: Order Comment: Yuryi men Type: BLOOD SPECIMENOrdering Facility: [facility] Address: [address] [place] [address] Performed By: #### 2 4323-8 ####[facility] [id number] [place] [address] [place] Protein [Mass/Vol] 4.9 g/dL Low 6.3-8.0 [facility] Comment on above: Order Comment: Yuryi brent Type: BLOOD SPECIMENOrdering Facility: [facility] Address: [address] [place] [address] Performed By: #### 2 4323-8 ####[facility] LABIA [id number] [place] [address] [place] Sodium [Moles/Vol] 131 mmol/L Low 136-144 [facility] Comment on above: Order Comment: Yuryi men Type: BLOOD SPECIMENOrdering Facility: [facility] Address: [address] [place] [address] Performed By: #### 2 4323-8 ####[facility] LABIA [id number] [place] [address] [place] Urea nitrogen [Mass/Vol] 59 mg/dL High 9-24 [facility] Comment on above: Order Comment: Speci men Type: BLOOD SPECIMENOrdering Facility: [facility] Address: [address] [place], [place] [address] Performed By: #### 2 4323-8 ####[facility] LABIA [id number] [place] [address] [place] Albumin [Mass/Vol] 3.3 g/dL Low 3.9-4.9 [facility] [place] Comment on above: Order Comment: Speci men Type: BLOOD SPECIMENOrdering Facility: [facility] Address: [address] [place], [place] [address] Performed By: #### 1 988-5, 18208-8, HSTNT, 68097-9, 2776-08 ####[facility] LABIA [id number] [place] [address] [place] ALP [Catalytic activity/Vol] 69 U/L Normal 38-113 [facility] Comment on above: Order Comment: Speci men Type: BLOOD SPECIMENOrdering Facility: [facility] Address: [address] [place], [place] [address] Performed By: #### 1 988-5, 72801-6, HSTNT, , 2776-08 ####[facility] LABIA [id number] [place] [address] [place] ALT [Catalytic activity/Vol] 95 U/L High 10-54 [facility] Comment on above: Order Comment: Speci men Type: BLOOD SPECIMENOrdering Facility: [facility] Address: [address] [place], [place] [address] Performed By: #### 1 988-5, 95897-5, HSTNT, , 2776- ####[facility] LABIA [id number] [place] [id number] [place] Anion gap [Moles/Vol] 12 mmol/L Normal 9-18 [facility] Comment on above: Order Comment: Speci men Type: BLOOD SPECIMENOrdering Facility: [facility] Address: [address] [place] [address] Performed By: #### 1 988-5, 08677-5, HSTNT, 16126-7, 2777-1 ####[facility] LABCLIA [id number] [place] [address] [place] AST [Catalytic activity/Vol] 146 U/L High 14-40 [facility] Comment on above: Order Comment: Speci men Type: BLOOD SPECIMENOrdering Facility: [facility] Address: [address] [place] [address] Performed By: #### 1 988-5, 92426-1, HSTNT, 85410-2, 7-1 ####[facility] LABCLIA [id number] [place] [address] [place] Bilirubin [Mass/Vol] 2.7 mg/dL High 0.2-1.3 [facility] Comment on above: Order Comment: Speci men Type: BLOOD SPECIMENOrdering Facility: [facility] Address: [address] [place] [address] Performed By: #### 1 988-5, 61453-5, HSTNT, 81473-7, 2776-1 ####[facility] LABCLIA [id number] [place] [address] [place] Calcium [Mass/Vol] 8.4 mg/dL Low 8.5-10.2 [facility] [place] Comment on above: Order Comment: Speci men Type: BLOOD SPECIMENOrdering Facility: [facility] Address: [address] [place] [address] Performed By: #### 1 988-5, 99255-4, HSTNT, 38782-6, 7-1 ####[facility] LABCLIA [id number] [address] [place] Chloride [Moles/Vol] 100 mmol/L Normal 97-105 [facility] Comment on above: Order Comment: Speci men Type: BLOOD SPECIMENOrdering Facility: [facility] Address: [address] [place] [address] Performed By: #### 1 988-5, 94326-8, HSTNT, 25081-4, 7-1 ####[facility] LABIA [id number] [place] [address] [place] CO2 [Moles/Vol] 19 mmol/L Low 22-30 [facility] Comment on above: Order Comment: Speci men Type: BLOOD SPECIMENOrdering Facility: [facility] Address: [address] [place] [address] Performed By: #### 1 988-5, 90640-0, HSTNT, 23098-6, 2776- ####[facility] [id number] [place] [address] [place] Creatinine [Mass/Vol] 1.30 mg/dL High 0.73-1.22 [facility] Comment on above: Order Comment: Speci men Type: BLOOD SPECIMENOrdering Facility: [facility] Address: [address] [place] [address] Performed By: #### 1 988-5, 16999-1, HSTNT, , 2776- ####[facility] [id number] [place] [address] [place] ESTIMATED GLOMERULAR FILTRATION RATE 71 mL/min/1.73m??? Normal >=60 [facility] Comment on above: Order Comment: Speci men Type: BLOOD SPECIMENOrdering Facility: [facility] Address: [address] [place] [address] Result Comment: Karma mated Glomerular Filtration Rate [...] actual GFR. Performed By: #### 1 988-5, 76309-9, HSTNT, , 2776-08 ####[facility] [id number] [address] [address] [place] Glucose [Mass/Vol] 152 mg/dL High 74-99 [facility] [place] Comment on above: Order Comment: Rasta kennedy Type: BLOOD SPECIMENOrdering Facility: [facility] Address: [address] [address] Result Comment: The [place] Diabetes Association (ADA) provides guidance for cutoff [...] Standards of Medical Care in Diabetes 2016, [place] [employer]. Diabetes Care. 2016.39(Suppl 1). Performed By: #### 1 988-5, 61888-1, HSTNT, , 2776-08 ####[facility] LABCLIA [id number] [address] [address] [place] Potassium [Moles/Vol] 4.6 mmol/L Normal 3.7-5.1 [facility] Comment on above: Order Comment: Rasta kennedy Type: BLOOD SPECIMENOrdering Facility: [facility] Address: [address] [place] [address] Performed By: #### 1 988-5, 60685-2, HSTNT, , 2776-08 ####[facility] LABCLIA [id number] [place] [id number] [place] Protein [Mass/Vol] 5.4 g/dL Low 6.3-8.0 [facility] [place] Comment on above: Order Comment: Speci men Type: BLOOD SPECIMENOrdering Facility: [facility] Address: [address] [place] [address] Performed By: #### 1 988-5, 98717-9, HSTNT, 05312-5, 2776- ####[facility] LABIA [id number] [place] [id number] [place] Sodium [Moles/Vol] 131 mmol/L Low 136-144 [facility] [place] Comment on above: Order Comment: Speci men Type: BLOOD SPECIMENOrdering Facility: [facility] Address: [address] [place] [address] Performed By: #### 1 988-5, 71444-4, HSTNT, 33346-5, 2776- ####[facility] [id number] [place] [id number] [place] Urea nitrogen [Mass/Vol] 46 mg/dL High 9-24 [facility] Comment on above: Order Comment: Speci men Type: BLOOD SPECIMENOrdering Facility: [facility] Address: [address] [place], [place] [address] Performed By: #### 1 988-5, 11260-7, HSTNT, 43791-7, 2776- ####[facility] [id number] [place] [id number] [place] Creatinine Unsp time (U) [Ma ss/Vol]on 04-06-2023 Creatinine (U) [Mass/Vol] 39.7 mg/dL Normal 20.0-300.0 [facility] Comment on above: Order Comment: Speci men Type: URINE SPECIMENOrdering Facility: [facility] Address: [address] [place], [place] [address] Performed By: #### U UNR, 28082-7 ####[facility] LABCLIA [id number] [address] HIGH SENSITIVITY TROPONIN To n 04-06-2023 HIGH SENSITIVITY AZRA 175 ng/L High <12 [facility] Comment on above: Order Comment: Speci men Type: BLOOD SPECIMENOrdering Facility: [facility] Address: [address] [address] Result Comment: When assessing risk for acute [...] day MACE. Performed By: #### 1 988-5, 54951-6, HSTNT, 98776-6, 2777-1 ####[facility] LABCLIA [id number] [place] [id number] [facility] Lab Miscellaneous-LCon 04-06 Lab Miscellaneous COMMENT Invalid Interpretation Code [facility] Comment on above: Result Comment: Test Ordered: [id number] Phosphatidylethanol (PEth) PHOSPHATIDYLETHANOL Negative MX Phosphatidylethanol (PEth) Negative ng/mL MX Analyzed compound: PEth 16:0/18:1. 6-lokxgcusj-4-hizgjy-lv-iatfzvy-3-phosphoethanol. Analysis performed by Liquid Chromatography with Tandem [...] developed and its performance characteristics determined by [email or web address]. It has not been cleared or approved by the Food and Drug Administration. Performed at: [facility] [id number] [place], [place] [id number] PhD Arcelia Banegas Performed By: #### 1 [id number] ####[facility] [address] [place] [address] Magnesium [facility] Foundationon 04-06 Magnesium [Mass/Vol] 2.4 mg/dL High 1.7-2.3 [facility] Comment on above: Order Comment: Specсергей kennedy Type: BLOOD SPECIMENOrdering Facility: [facility] Address: [address] [place], [place] [address] Performed By: #### 1 988-5, 41095-1, HSTNT, 87879-3, 2777-1 ####[facility] LABCLIA [id number] [facility] [id number] [place] [address] [place] PT panel Coag (PPP)on 2022 INR Coag (PPP) [Relative time] 1.4 {INR} High 0.9-1.3 [facility] Comment on above: Order Comment: Rasta kennedy Type: BLOOD SPECIMENOrdering Facility: [facility] Address: [address] [place], [place] [address] Result Comment: Binta min K Antagonist (VKA) Therapeutic Range: INR 2 to 3 (Target INR of 2.5)Note: For patients treated with VKA drugs, such as warfarin, the [place] [employer] 2012 Guideline recommends [...] al. Chest 2012, 141:7S-47SNishimura RA, et al. [facility] 2017, 70: 252-289 Performed By: #### 3 4528-0, 63218-2 ####[facility] LABCLIA [id number] [place] [address] [place] PT Coag (PPP) [Time] 14.2 s High 9.7-13.0 [facility] Comment on above: Order Comment: Speci men Type: BLOOD SPECIMENOrdering Facility: [facility] Address: [address] [place] [address] Performed By: #### 3 4528-0, 00243-8 ####[facility] LABIA [id number] [address] [place] Phosphate [facility] Foundationon 04-06 Phosphate [Mass/Vol] 3.4 mg/dL Normal 2.7-4.8 [facility] Comment on above: Order Comment: Speci brent Type: BLOOD SPECIMENOrdering Facility: [facility] Address: [address] [place] [address] Performed By: #### 1 988-5, 05307-9, HSTNT, 46606-2, 2777-1 ####[facility] LABIA [id number] [address] [place] THERAPY NTon 04-06-2023 THERAPY NT Normal [facility] THERAPY NT Normal [facility] Tacrolimus Bld-mCncon 2022 Tacrolimus (Bld) [Mass/Vol] ng/mL Low 5.0-20.0 [facility] Comment on above: Order Comment: Speci brent Type: BLOOD SPECIMENOrdering Facility: [facility] Address: [address] [place] [address] Result Comment: Drug concentration below assay detection limit. Please confirm drug regimen and cancel any standing orders for this drug level if the drug has been discontinued. Reference ranges and high/low indicator flags are provided as general guidelines only. The treating physician must determine appropriate target levels/dosing based on the specific clinical situation. Test performed by chemiluminescent immunoassay using [employer] i. Performed By: #### 1 1253-2 ####[facility] LABCLIA [id number] [place] [address] [place] UREA NITROGEN RND URon 04-06 Urea nitrogen [Mass/Vol] 549 mg/dL Normal 140-1500 [facility] Comment on above: Order Comment: Speci men Type: URINE SPECIMENOrdering Facility: [facility] Address: [address] Performed By: #### U UNR, 71067-3 ####[facility] LABIA [id number] [address] [place] XR ABDOMEN 1V SUPINEon 04-06 XR ABDOMEN 1V SUPINE [facility] XR CHEST 1V FRONTAL PORTon 0 04-06-2023 XR CHEST 1V FRONTAL PORT Normal [facility] aPTT PPPon 04-06-2023 aPTT Coag (PPP) [Time] 25.7 s Normal 23.0-32.4 [facility] Comment on above: Order Comment: Speci men Type: BLOOD SPECIMENOrdering Facility: [facility] Address: [address] [place], [place] [address] Performed By: #### 3 4528-0, 59495-8 ####[facility] LABIA [id number] [address] ARTERIAL BLOOD GASESon 04-05 Base deficit (BldA) [Moles/Vol] -2 mmol/L Normal -2-0 [facility] Comment on above: Order Comment: Speci men Type: ARTERIAL BLOOD SPECIMENOrdering Facility: [facility] Address: [address] [place] [address] Performed By: #### A LLBG ####[facility] LABCLIA [id number] [address] [place] Body temperature 100.22 [degF] Normal [facility] Comment on above: Order Comment: Speci men Type: ARTERIAL BLOOD SPECIMENOrdering Facility: [facility] Address: [address] [place] [address] Performed By: #### A LLBG ####[facility] LABCLIA [id number] [place] [address] [place] Calcium.ionized (Bld) [Mass/Vol] 1.19 mmol/L Normal 1.08-1.30 [facility] Comment on above: Order Comment: Speci men Type: ARTERIAL BLOOD SPECIMENOrdering Facility: [facility] Address: [address] [place] [address] Performed By: #### A LLBG ####[facility] LABCLIA [id number] [place] [address] [place] Calcium.ionized adjusted to pH 7.4 (BldA) [Moles/Vol] 1.19 mmol/L Normal 1.08-1.30 [facility] Comment on above: Order Comment: Speci men Type: ARTERIAL BLOOD SPECIMENOrdering Facility: [facility] Address: [address] [place] [address] Performed By: #### A LLBG ####[facility] LABIA [id number] [place] [address] [place] Carboxyhemoglobin (BldA) [Mass fraction] 2.0 % Normal 0.0-2.0 [facility] Comment on above: Order Comment: Speci men Type: ARTERIAL BLOOD SPECIMENOrdering Facility: [facility] Address: [address] [place], [place] [address] Result Comment: Carb oxyhemoglobin Reference Range for Smokers: 2.0-8.0% Performed By: #### A LLBG ####[facility] LABCLIA [id number] [place] [address] [place] CO2 (Bld) [Partial pressure] 35 mm Hg Low 36-46 [facility] Comment on above: Order Comment: Speci men Type: ARTERIAL BLOOD SPECIMENOrdering Facility: [facility] Address: [address] Performed By: #### A LLBG ####[facility] LABCLIA [id number] [place] [address] [place] CO2 adjusted to patient's actual temperature (Bld) [Partial pressure] 37 mmHg Normal 36-46 [facility] Comment on above: Order Comment: Speci men Type: ARTERIAL BLOOD SPECIMENOrdering Facility: [facility] Address: [address] Performed By: #### A LLBG ####[facility] LABCLIA [id number] [place] [address] [place] Glucose [Mass/Vol] 191 mg/dL High 60-105 [facility] Comment on above: Order Comment: Speci men Type: ARTERIAL BLOOD SPECIMENOrdering Facility: [facility] Address: [address] Performed By: #### A LLBG ####[facility] LABCLIA [id number] [place] [address] [place] HCO3 (Bld) [Moles/Vol] 21 mmol/L Low 22-26 [facility] Comment on above: Order Comment: Speci men Type: ARTERIAL BLOOD SPECIMENOrdering Facility: [facility] Address: [address] Performed By: #### A LLBG ####[facility] LABCLIA [id number] [place] [address] [place] Hematocrit (Bld) [Volume fraction] 28.1 % Low 39.0-51.0 [facility] Comment on above: Order Comment: Speci men Type: ARTERIAL BLOOD SPECIMENOrdering Facility: [facility] Address: [address] Performed By: #### A LLBG ####[facility] LABCLIA [id number] [place] [address] [place] Hemoglobin (Bld) [Mass/Vol] 9.1 g/dL Low 13.0-17.0 [facility] Comment on above: Order Comment: Speci men Type: ARTERIAL BLOOD SPECIMENOrdering Facility: [facility] Address: [address] [place] [address] Performed By: #### A LLBG ####[facility] LABIA [id number] [place] [address] [place] Lactate [Moles/Vol] 2.9 mmol/L High 0.5-2.2 [facility] Comment on above: Order Comment: Speci men Type: ARTERIAL BLOOD SPECIMENOrdering Facility: [facility] Address: [address] [place] [address] Performed By: #### A LLBG ####[facility] LABIA [id number] [place] [address] [place] Methemoglobin (Bld) [Mass fraction] 0.6 % Normal 0.0-1.5 [facility] Comment on above: Order Comment: Speci men Type: ARTERIAL BLOOD SPECIMENOrdering Facility: [facility] Address: [address] [place], [place] [address] Performed By: #### A LLBG ####[facility] LABIA [id number] [place] [address] [place] O2 THERAPY Ventilator Normal [facility] Comment on above: Order Comment: Speci men Type: ARTERIAL BLOOD SPECIMENOrdering Facility: [facility] Address: [address] [place], [place] [address] Performed By: #### A LLBG ####[facility] LABIA [id number] [place] [address] [place] Oxygen (Bld) [Partial pressure] 148 mm Hg High 85-95 [facility] Comment on above: Order Comment: Speci men Type: ARTERIAL BLOOD SPECIMENOrdering Facility: [facility] Address: [address] Performed By: #### A LLBG ####[facility] LABCLIA [id number] [place] [address] [place] Oxygen adjusted to patient's actual temperature (Bld) [Partial pressure] 153 mmHg High 85-95 [facility] Comment on above: Order Comment: Speci men Type: ARTERIAL BLOOD SPECIMENOrdering Facility: [facility] Address: [address] Performed By: #### A LLBG ####[facility] LABCLIA [id number] [place] [address] [place] Oxyhemoglobin (BldA) [Mass fraction] 97 % Normal 95-98 [facility] Comment on above: Order Comment: Speci men Type: ARTERIAL BLOOD SPECIMENOrdering Facility: [facility] Address: [address] Performed By: #### A LLBG ####[facility] LABCLIA [id number] [place] [address] [place] pH (Bld) 7.40 [pH] Normal 7.35-7.45 [facility] Comment on above: Order Comment: Speci men Type: ARTERIAL BLOOD SPECIMENOrdering Facility: [facility] Address: [address] Performed By: #### A LLBG ####[facility] LABCLIA [id number] [place] [address] [place] pH adjusted to patient's actual temperature (Bld) 7.39 Normal 7.35-7.45 [facility] Comment on above: Order Comment: Speci men Type: ARTERIAL BLOOD SPECIMENOrdering Facility: [facility] Address: [address] Performed By: #### A LLBG ####[facility] LABCLIA [id number] [place] [address] [place] Potassium [Moles/Vol] 4.3 mmol/L Normal 3.5-5.0 [facility] Comment on above: Order Comment: Speci men Type: ARTERIAL BLOOD SPECIMENOrdering Facility: [facility] Address: [address] [place] [address] Performed By: #### A LLBG ####[facility] LABCLIA [id number] [place] [address] [place] Sodium [Moles/Vol] 135 mmol/L Low 136-144 [facility] Comment on above: Order Comment: Speci men Type: ARTERIAL BLOOD SPECIMENOrdering Facility: [facility] Address: [address] [place] [address] Performed By: #### A LLBG ####[facility] LABIA [id number] [address] [place] Order Comment: Speci men Type: BLOOD SPECIMENOrdering Facility: [facility] Address: [address] [place] [address] Performed By: #### 2 4323-8, 1987-5, HSTNT, 49687-3, 2777-1 ####[facility] LABIA [id number] [place] [address] [place] Ammonia Plas-sCncon 04-05-20 23 Ammonia (P) [Moles/Vol] 38 umol/L Normal 16-60 [facility] Comment on above: Order Comment: Speci men Type: BLOOD SPECIMENOrdering Facility: [facility] Address: [address] [place] [address] Performed By: #### 1 6362-6 ####[facility] LABIA [id number] [place] [address] [place] CBC W Auto Differential pane l (Bld)on 04-05-2023 Basophils (Bld) [#/Vol] 10*3/uL Normal <0.11 [facility] Comment on above: Order Comment: Speci men Type: BLOOD SPECIMENOrdering Facility: [facility] Address: [address] Performed By: #### 5 7021-8 ####[facility] LABCLIA [id number] [place] [address] [place] Basophils/100 WBC (Bld) 0.2 % Normal [facility] Comment on above: Order Comment: Speci men Type: BLOOD SPECIMENOrdering Facility: [facility] Address: [address] Performed By: #### 5 7021-8 ####[facility] LABCLIA [id number] [place] [address] [place] Differential cell count method Nom (Bld) Auto Normal [facility] Comment on above: Order Comment: Speci men Type: BLOOD SPECIMENOrdering Facility: [facility] Address: [address] Performed By: #### 5 7021-8 ####[facility] LABCLIA [id number] [place] [address] [place] Eosinophils (Bld) [#/Vol] 10*3/uL Normal <0.46 [facility] Comment on above: Order Comment: Speci men Type: BLOOD SPECIMENOrdering Facility: [facility] Address: [address] Performed By: #### 5 7021-8 ####[facility] LABCLIA [id number] [address] [place] Eosinophils/100 WBC (Bld) 0.0 % Normal [facility] Comment on above: Order Comment: Speci men Type: BLOOD SPECIMENOrdering Facility: [facility] Address: [address] Performed By: #### 5 7021-8 ####[facility] LABIA [id number] [place] [address] [place] Erythrocyte distribution width (RBC) [Ratio] 14.6 % Normal 11.5-15.0 [facility] Comment on above: Order Comment: Speci men Type: BLOOD SPECIMENOrdering Facility: [facility] Address: [address] [place] [address] Performed By: #### 5 7021-8 ####[facility] LABIA [id number] [place] [address] [place] Hematocrit (Bld) [Volume fraction] 26.7 % Low 39.0-51.0 [facility] Comment on above: Order Comment: Speci men Type: BLOOD SPECIMENOrdering Facility: [facility] Address: [address] [place] [address] Performed By: #### 5 7021-8 ####[facility] [id number] [place] [address] [place] Hemoglobin (Bld) [Mass/Vol] 9.3 g/dL Low 13.0-17.0 [facility] Comment on above: Order Comment: Speci men Type: BLOOD SPECIMENOrdering Facility: [facility] Address: [address] [place] [address] Performed By: #### 5 7021-8 ####[facility] LABIA [id number] [place] [address] [place] Immature granulocytes (Bld) [#/Vol] 0.03 10*3/uL Normal <0.10 [facility] Comment on above: Order Comment: Speci men Type: BLOOD SPECIMENOrdering Facility: [facility] Address: [address] [place] [address] Performed By: #### 5 7021-8 ####[facility] LABIA [id number] [place] [address] [place] Immature granulocytes/100 WBC (Bld) 0.5 % Normal [facility] Comment on above: Order Comment: Speci men Type: BLOOD SPECIMENOrdering Facility: [facility] Address: [address] [place] [address] Performed By: #### 5 7021-8 ####[facility] LABCLIA [id number] [place] [address] [place] Lymphocytes (Bld) [#/Vol] 0.43 10*3/uL Low 1.00-4.00 [facility] Comment on above: Order Comment: Speci men Type: BLOOD SPECIMENOrdering Facility: [facility] Address: [address] [place] [address] Performed By: #### 5 7021-8 ####[facility] LABCLIA [id number] [place] [address] [place] Lymphocytes/100 WBC (Bld) 6.5 % Normal [facility] Comment on above: Order Comment: Speci men Type: BLOOD SPECIMENOrdering Facility: [facility] Address: [address] [place] [address] Performed By: #### 5 7021-8 ####[facility] LABIA [id number] [place] [address] [place] MCH (RBC) [Entitic mass] 34.1 pg High 26.0-34.0 [facility] Comment on above: Order Comment: Speci men Type: BLOOD SPECIMENOrdering Facility: [facility] Address: [address] [place], [place] [address] Performed By: #### 5 7021-8 ####[facility] LABIA [id number] [place] [address] [place] MCHC (RBC) [Mass/Vol] 34.8 g/dL Normal 30.5-36.0 [facility] Comment on above: Order Comment: Speci men Type: BLOOD SPECIMENOrdering Facility: [facility] Address: [address] [place] [address] Performed By: #### 5 7021-8 ####[facility] LABIA [id number] [place] [address] [place] MCV (RBC) [Entitic vol] 97.8 fL Normal 80.0-100.0 [facility] Comment on above: Order Comment: Speci men Type: BLOOD SPECIMENOrdering Facility: [facility] Address: [address] Performed By: #### 5 7021-8 ####[facility] LABIA [id number] [place] [address] [place] Monocytes (Bld) [#/Vol] 0.24 10*3/uL Normal <0.87 [facility] Comment on above: Order Comment: Speci men Type: BLOOD SPECIMENOrdering Facility: [facility] Address: [address] Performed By: #### 5 7021-8 ####[facility] LABIA [id number] [place] [address] [place] Monocytes/100 WBC (Bld) 3.7 % Normal [facility] Comment on above: Order Comment: Speci men Type: BLOOD SPECIMENOrdering Facility: [facility] Address: [address] [place] [address] Performed By: #### 5 7021-8 ####[facility] LABIA [id number] [place] [address] [place] Neutrophils (Bld) [#/Vol] 5.86 10*3/uL Normal 1.45-7.50 [facility] Comment on above: Order Comment: Speci men Type: BLOOD SPECIMENOrdering Facility: [facility] Address: [address] Performed By: #### 5 7021-8 ####[facility] LABIA [id number] [place] [address] [place] Neutrophils/100 WBC (Bld) 89.1 % Normal [facility] Comment on above: Order Comment: Speci men Type: BLOOD SPECIMENOrdering Facility: [facility] Address: [address] [place], [place] [address] Performed By: #### 5 7021-8 ####[facility] LABCLIA [id number] [place] [address] [place] Nucleated RBC (Bld) [#/Vol] 10*3/uL Normal <0.01 [facility] Comment on above: Order Comment: Speci men Type: BLOOD SPECIMENOrdering Facility: [facility] Address: [address] [place], [place] [address] Performed By: #### 5 7021-8 ####[facility] LABCLIA [id number] [place] [address] [place] Nucleated RBC/100 WBC (Bld) [Ratio] 0.0 /100 WBC Normal [facility] Comment on above: Order Comment: Speci men Type: BLOOD SPECIMENOrdering Facility: [facility] Address: [address] [place], [place] [address] Performed By: #### 5 7021-8 ####[facility] LABCLIA [id number] [place] [address] [place] Platelet mean volume (Bld) [Entitic vol] 9.8 fL Normal 9.0-12.7 [facility] Comment on above: Order Comment: Speci men Type: BLOOD SPECIMENOrdering Facility: [facility] Address: [address] [place] [id number] Performed By: #### 5 7021-8 ####[facility] LABCLIA [id number] [place] [address] [place] Platelets (Bld) [#/Vol] 42 10*3/uL Low 150-400 [facility] Comment on above: Order Comment: Speci men Type: BLOOD SPECIMENOrdering Facility: [facility] Address: [address] [place] [address] Result Comment: No c lot detected. Performed By: #### 5 7021-8 ####[facility] LABCLIA [id number] [place] [address] [place] RBC (Bld) [#/Vol] 2.73 10*6/uL Low 4.20-6.00 [facility] Comment on above: Order Comment: Speci men Type: BLOOD SPECIMENOrdering Facility: [facility] Address: [address] [place] [address] Performed By: #### 5 7021-8 ####[facility] [id number] [place] [address] [place] WBC (Bld) [#/Vol] 6.57 10*3/uL Normal 3.70-11.00 [facility] Comment on above: Order Comment: Speci men Type: BLOOD SPECIMENOrdering Facility: [facility] Address: [address] [place] [address] Performed By: #### 5 7021-8 ####[facility] [id number] [place] [address] [place] CMV DNA DETECTION AND QUANTo n 04-05-2023 CMV DNA DEVYN+probe Qn (P) Not detected Normal Not Detected [facility] Comment on above: Order Comment: Speci men Type: BLOOD SPECIMENOrdering Facility: [facility] Address: [address] [place] [address] Performed By: #### C MVQNT ####[facility] [id number] [place] [address] [place] CRP SerPl-mCncon 04-05-2023 CRP [Mass/Vol] 0.9 mg/dL High <0.9 [facility] Comment on above: Order Comment: Speci men Type: BLOOD SPECIMENOrdering Facility: [facility] Address: [address] [place], [place] [address] [place] [address] Performed By: #### 2 4323-03, 1987-12, HSTNT, , 2776-08 ####[facility] LABCLIA [id number] [address] [address] [place] Comprehensive metabolic 2000 panelon 04-05-2023 Albumin [Mass/Vol] 3.8 g/dL Low 3.9-4.9 [facility] [place] Comment on above: Order Comment: Speci men Type: BLOOD SPECIMENOrdering Facility: [facility] Address: [address] Performed By: #### 2 4323-03, 1987-12, HSTNT, , 2776-08 ####[facility] LABCLIA [id number] [place] [address] [place] ALP [Catalytic activity/Vol] 48 U/L Normal 38-113 [facility] Comment on above: Order Comment: Speci men Type: BLOOD SPECIMENOrdering Facility: [facility] Address: [address] Performed By: #### 2 4323-03, 1987-12, HSTNT, , 2776-08 ####[facility] LABIA [id number] [place] [address] [place] ALT [Catalytic activity/Vol] 99 U/L High 10-54 [facility] Comment on above: Order Comment: Speci men Type: BLOOD SPECIMENOrdering Facility: [facility] Address: [address] [place] [id number] Performed By: #### 2 4323-03, 1987-12, HSTNT, , 2776-08 ####[facility] LABCLIA [id number] [place] [id number] [place] Anion gap [Moles/Vol] 14 mmol/L Normal 9-18 [facility] Comment on above: Order Comment: Speci men Type: BLOOD SPECIMENOrdering Facility: [facility] Address: [address] Performed By: #### 2 4323-03, 1987-12, HSTNT, , 2776-08 ####[facility] LABCLIA [id number] [place] [id number] [place] AST [Catalytic activity/Vol] 251 U/L High 14-40 [facility] Comment on above: Order Comment: Speci men Type: BLOOD SPECIMENOrdering Facility: [facility] Address: [address] [place] [address] Performed By: #### 2 4323-03, 1987-12, HSTNT, , 2776-08 ####[facility] LABCLIA [id number] [place] [address] [place] Bilirubin [Mass/Vol] 3.6 mg/dL High 0.2-1.3 [facility] Comment on above: Order Comment: Speci men Type: BLOOD SPECIMENOrdering Facility: [facility] Address: [address] [place], [place] [address] Performed By: #### 2 4323-03, 1987-12, HSTNT, , 2776-08 ####[facility] LABCLIA [id number] [place] [address] [place] Calcium [Mass/Vol] 8.7 mg/dL Normal 8.5-10.2 [facility] [place] Comment on above: Order Comment: Speci men Type: BLOOD SPECIMENOrdering Facility: [facility] Address: [address] [place], [place] [address] Performed By: #### 2 4323-03, 1987-12, HSTNT, , 2776-08 ####[facility] LABCLIA [id number] [place] [id number] [place] Chloride [Moles/Vol] 102 mmol/L Normal 97-105 [facility] Comment on above: Order Comment: Speci men Type: BLOOD SPECIMENOrdering Facility: [facility] Address: [address] [place] [address] Performed By: #### 2 4323-03, 1987-12, HSTNT, , 2776-08 ####[facility] LABIA [id number] [place] [address] [place] CO2 [Moles/Vol] 19 mmol/L Low 22-30 [facility] Comment on above: Order Comment: Speci men Type: BLOOD SPECIMENOrdering Facility: [facility] Address: [address] [place] [address] Performed By: #### 2 43210-29, 1987-12, HSTNT, , 2776-08 ####[facility] [id number] [place] [address] [place] Creatinine [Mass/Vol] 1.07 mg/dL Normal 0.73-1.22 [facility] Comment on above: Order Comment: Speci men Type: BLOOD SPECIMENOrdering Facility: [facility] Address: [address] [place] [address] Performed By: #### 2 43210-29, 1987-12, HSTNT, , 2776-08 ####[facility] [id number] [place] [address] [place] ESTIMATED GLOMERULAR FILTRATION RATE 89 mL/min/1.73m??? Normal >=60 [facility] Comment on above: Order Comment: Speci men Type: BLOOD SPECIMENOrdering Facility: [facility] Address: [address] [place] [address] Result Comment: Karma mated Glomerular Filtration Rate [...] #### 2 4323-03, 1987-12, HSTNT, , 2776-08 ####[facility] LABCLIA [id number] [address] [address] [place] Glucose [Mass/Vol] 193 mg/dL High 74-99 [facility] [place] Comment on above: Order Comment: Rasta kennedy Type: BLOOD SPECIMENOrdering Facility: [facility] Address: [address] [place] [address] Result Comment: The [employer] (ADA) provides guidance for cutoff [...] Standards of Medical Care in Diabetes 2016, [employer]. Diabetes Care. 2016.39(Suppl 1). Performed By: #### 2 4323-03, 1987-12, HSTNT, , 2776-08 ####[facility] LABCLIA [id number] [address] [address] [place] Potassium [Moles/Vol] 4.5 mmol/L Normal 3.7-5.1 [facility] Comment on above: Order Comment: Rasta kennedy Type: BLOOD SPECIMENOrdering Facility: [facility] Address: [address] [place] [address] Performed By: #### 2 4323-03, 1987-12, HSTNT, , 2776-08 ####[facility] LABCLIA [id number] [address] [address] [place] Protein [Mass/Vol] 5.5 g/dL Low 6.3-8.0 [facility] [place] Comment on above: Order Comment: Speci men Type: BLOOD SPECIMENOrdering Facility: [facility] Address: [address] [place] [address] Performed By: #### 2 4323-8, 1987-12, HSTNT, , 2776- ####[facility] LABCLIA [id number] [place] [address] [place] Urea nitrogen [Mass/Vol] 20 mg/dL Normal 9-24 [facility] Comment on above: Order Comment: Speci men Type: BLOOD SPECIMENOrdering Facility: [facility] Address: [address] [place] [address] Performed By: #### 2 432-8, 1987-12, HSTNT, , 2776-08 ####[facility] LABIA [id number] [place] [address] [place] Fibrinogen PPP-mCncon 2022 Fibrinogen Coag (PPP) [Mass/Vol] 151 mg/dL Low 200-400 [facility] Comment on above: Order Comment: Speci men Type: BLOOD SPECIMENOrdering Facility: [facility] Address: [address] [place] [address] Performed By: #### 3 255-7, 38318-2, 17030-4 ####[facility] LABIA [id number] [place] [address] [place] HIGH SENSITIVITY TROPONIN To n 04-05-2023 HIGH SENSITIVITY AZRA 14 ng/L High <12 [facility] Comment on above: Order Comment: Speci men Type: BLOOD SPECIMENOrdering Facility: [facility] Address: [address] [place] [address] Result Comment: When assessing risk for acute [...] Performed By: #### 2 4323-8, 1987-12, HSTNT, 27796-2, 2776-08 ####[facility] LABCLIA [id number] [address] [address] [place] Magnesium SerPl-mCncon 04-05 Magnesium [Mass/Vol] 2.3 mg/dL Normal 1.7-2.3 [facility] Comment on above: Order Comment: Rasta kennedy Type: BLOOD SPECIMENOrdering Facility: [facility] Address: [address] [place] [address] Performed By: #### 2 4328, 1987-12, HSTNT, , 2776-08 ####[facility] LABCLIA [id number] [address] [address] [place] NUTRITIONon 04-05-2023 NUTRITION Normal [facility] PT panel Coag (PPP)on 2022 INR Coag (PPP) [Relative time] 1.5 {INR} High 0.9-1.3 [facility] Comment on above: Order Comment: Rasta kennedy Type: BLOOD SPECIMENOrdering Facility: [facility] Address: [address] [place] [address] Result Comment: Binta min K Antagonist (VKA) Therapeutic Range: INR 2 to 3 (Target INR of 2.5)Note: For patients treated with VKA drugs, such as warfarin, the [employer] 2012 Guideline recommends [...] al. Chest 2012, 141:7S-47SNishimura RA, et al. [facility] 2017, 70: 252-289 Performed By: #### 3 255-7, 64838-1, 23970-9 ####[facility] LABCLIA [id number] [place] [address] [place] PT Coag (PPP) [Time] 15.3 s High 9.7-13.0 [facility] Comment on above: Order Comment: Speci men Type: BLOOD SPECIMENOrdering Facility: [facility] Address: [address] [place] [address] Performed By: #### 3 255-7, 85389-1, 25472-5 ####[facility] LABIA [id number] [place] [address] [place] Phosphate SerPl-mCncon 04-05 Phosphate [Mass/Vol] 3.9 mg/dL Normal 2.7-4.8 [facility] Comment on above: Order Comment: Speci men Type: BLOOD SPECIMENOrdering Facility: [facility] Address: [address] [place] [address] Performed By: #### 2 4323-8, 1988-5, HSTNT, 85623-6, 2777-1 ####[facility] LABIA [id number] [place] [address] [place] Procalcitonin SerPl-mCncon 0 04-05-2023 Procalcitonin [Mass/Vol] 7.97 ng/mL High <0.09 [facility] Comment on above: Order Comment: Speci men Type: BLOOD SPECIMENOrdering Facility: [facility] Address: [address] [place] [address] Result Comment: For a guided interpretation of test results, please visit the Change in Procalcitonin Calculator, [email or web address]. Performed By: #### 3 3959-8 ####[facility] LABIA [id number] [address] OF [facility] THROMBOGRAPH PANELon 08-13-2 023 Clot angle TEG (Bld) [Angle] 59.6 degrees Normal 47.0-74.0 [facility] Comment on above: Order Comment: Speci men Type: BLOOD SPECIMENOrdering Facility: [facility] Address: [address] [place] [address] Performed By: #### T EGPNP ####[facility] [id number] [address] [place] [facility] Clot Lysis 30 Min post maximum clot amplitude TEG (Bld) [Length fraction] 0.2 % Normal 0.0-8.0 [facility] Comment on above: Order Comment: Speci men Type: BLOOD SPECIMENOrdering Facility: [facility] Address: [address] [place] [address] Performed By: #### T EGPNP ####[facility] [id number] [address] [place] Clotting time after addition of heparinase TEG (Bld) Reviewed by Ame Weiss M.D., Ph.D Normal [facility] Comment on above: Order Comment: Speci men Type: BLOOD SPECIMENOrdering Facility: [facility] Address: [address] Performed By: #### T EGPNP ####[facility] [id number] [address] [place] Clotting time TEG (Bld) 4.7 minutes Normal 4.0-10.0 [facility] Comment on above: Order Comment: Speci men Type: BLOOD SPECIMENOrdering Facility: [facility] Address: [address] Performed By: #### T EGPNP ####[facility] LABCLIA [id number] [place] [address] [place] Coagulation index TEG Qn (Bld) -2.6 Normal -4.6-3.2 [facility] Comment on above: Order Comment: Speci men Type: BLOOD SPECIMENOrdering Facility: [facility] Address: [address] [place] [address] Result Comment: The Coagulation Index, a secondary parameter, is labeled by the fruit farmworker as for research use only and is used per the fruit farmworker's instructions. Its performance characteristics were determined by [facility] Pathology and Laboratory Medicine Shepherd in a manner consistent with CLIA requirements. This test has not been cleared by the U.S. Food and Drug Administration. Performed By: #### T EGPNP ####[facility] LABCLIA [id number] [place] [address] [place] INTERPRETATION(THROM BOGRAPH HEPARINASE) Normal [facility] Comment on above: Order Comment: Speci men Type: BLOOD SPECIMENOrdering Facility: [facility] Address: [address] [place] [address] Result Comment: A th romboelastograph (TEG) study [...] TEG results. Performed By: #### T EGPNP ####[facility] LABCLIA [id number] [place] [address] [place] Maximum clot firmness TEG (Bld) [Length] 40.2 mm Low 51.0-75.0 [facility] Comment on above: Order Comment: Speci men Type: BLOOD SPECIMENOrdering Facility: [facility] Address: [address] [place] [address] Performed By: #### T EGPNP ####[facility] LABCLIA [id number] [place] [address] [place] XR CHEST 1V FRONTAL PORTon 0 04-05-2023 XR CHEST 1V FRONTAL PORT Normal [facility] XR CHEST 1V FRONTAL PORT Normal [facility] XR CHEST 1V FRONTAL PORT Normal [facility] aPTT PPPon 04-05-2023 aPTT Coag (PPP) [Time] 35.6 s High 23.0-32.4 [facility] Comment on above: Order Comment: Speci men Type: BLOOD SPECIMENOrdering Facility: [facility] Address: [address] [place] [address] Performed By: #### 3 255-7, 61753-7, 36726-1 ####[facility] LABCLIA [id number] [place] [address] [place] ANES POSTPROC EVALon 023 ANES POSTPROC EVAL Normal [facility] ANES PRE-OPon 04-04-2023 ANES PRE-OP Normal [facility] ARTERIAL BLOOD GASESon 04-04 Base deficit (BldA) [Moles/Vol] -3 mmol/L Low -2-0 [facility] Comment on above: Order Comment: Speci men Type: ARTERIAL BLOOD SPECIMENOrdering Facility: [facility] Address: [address] [place] [address] Performed By: #### A LLBG ####[facility] LABCLIA [id number] [place] [address] [place] Body temperature 98.6 [degF] Normal [facility] Comment on above: Order Comment: Speci men Type: ARTERIAL BLOOD SPECIMENOrdering Facility: [facility] Address: [address] [place] [address] Performed By: #### A LLBG ####[facility] [id number] [place] [address] [place] Calcium.ionized (Bld) [Mass/Vol] 1.23 mmol/L Normal 1.08-1.30 [facility] Comment on above: Order Comment: Speci men Type: ARTERIAL BLOOD SPECIMENOrdering Facility: [facility] Address: [address] [place] [address] Performed By: #### A LLBG ####[facility] [id number] [place] [address] [place] Calcium.ionized adjusted to pH 7.4 (BldA) [Moles/Vol] 1.21 mmol/L Normal 1.08-1.30 [facility] Comment on above: Order Comment: Speci men Type: ARTERIAL BLOOD SPECIMENOrdering Facility: [facility] Address: [address] [place] [address] Performed By: #### A LLBG ####[facility] [id number] [place] [address] [place] Carboxyhemoglobin (BldA) [Mass fraction] 2.7 % High 0.0-2.0 [facility] Comment on above: Order Comment: Speci men Type: ARTERIAL BLOOD SPECIMENOrdering Facility: [facility] Address: [address] [place], [place] [address] Result Comment: Carb oxyhemoglobin Reference Range for Smokers: 2.0-8.0% Performed By: #### A LLBG ####[facility] [id number] [place] [address] [place] CO2 (Bld) [Partial pressure] 38 mm Hg Normal 36-46 [facility] Comment on above: Order Comment: Speci men Type: ARTERIAL BLOOD SPECIMENOrdering Facility: [facility] Address: [address] [place] [address], [place] Performed By: #### A LLBG ####[facility] LABCLIA [id number] [place] [address] [place] Glucose [Mass/Vol] 164 mg/dL High 60-105 [facility] [place] Comment on above: Order Comment: Speci men Type: ARTERIAL BLOOD SPECIMENOrdering Facility: [facility] Address: [address] Performed By: #### A LLBG ####[facility] LABCLIA [id number] [place] [address] [place] HCO3 (Bld) [Moles/Vol] 22 mmol/L Normal 22-26 [facility] Comment on above: Order Comment: Speci men Type: ARTERIAL BLOOD SPECIMENOrdering Facility: [facility] Address: [address] Performed By: #### A LLBG ####[facility] LABCLIA [id number] [place] [address] [place] Hematocrit (Bld) [Volume fraction] 29.7 % Low 39.0-51.0 [facility] Comment on above: Order Comment: Speci men Type: ARTERIAL BLOOD SPECIMENOrdering Facility: [facility] Address: [address] [place] [address] Performed By: #### A LLBG ####[facility] LABCLIA [id number] [place] [address] [place] Hemoglobin (Bld) [Mass/Vol] 9.6 g/dL Low 13.0-17.0 [facility] Comment on above: Order Comment: Speci men Type: ARTERIAL BLOOD SPECIMENOrdering Facility: [facility] Address: [address] [place] [address] Performed By: #### A LLBG ####[facility] LABCLIA [id number] [place] [address] [place] Lactate [Moles/Vol] 2.7 mmol/L High 0.5-2.2 [facility] Comment on above: Order Comment: Speci men Type: ARTERIAL BLOOD SPECIMENOrdering Facility: [facility] Address: [address] Performed By: #### A LLBG ####[facility] LABCLIA [id number] [place] [address] [place] Methemoglobin (Bld) [Mass fraction] 0.7 % Normal 0.0-1.5 [facility] Comment on above: Order Comment: Speci men Type: ARTERIAL BLOOD SPECIMENOrdering Facility: [facility] Address: [address] Performed By: #### A LLBG ####[facility] LABCLIA [id number] [place] [address] [place] O2 THERAPY Ventilator Normal [facility] Comment on above: Order Comment: Speci men Type: ARTERIAL BLOOD SPECIMENOrdering Facility: [facility] Address: [address] Performed By: #### A LLBG ####[facility] LABCLIA [id number] [address] [place] Oxygen (Bld) [Partial pressure] 120 mm Hg High 85-95 [facility] Comment on above: Order Comment: Speci men Type: ARTERIAL BLOOD SPECIMENOrdering Facility: [facility] Address: [address] Performed By: #### A LLBG ####[facility] LABCLIA [id number] [place] [address] [place] Oxyhemoglobin (BldA) [Mass fraction] 96 % Normal 95-98 [facility] Comment on above: Order Comment: Speci men Type: ARTERIAL BLOOD SPECIMENOrdering Facility: [facility] Address: [address] Performed By: #### A LLBG ####[facility] LABIA [id number] [place] [address] [place] pH (Bld) 7.37 [pH] Normal 7.35-7.45 [facility] Comment on above: Order Comment: Speci men Type: ARTERIAL BLOOD SPECIMENOrdering Facility: [facility] Address: [address] [place], [place] [address] Performed By: #### A LLBG ####[facility] LABIA [id number] [place] [address] [place] Potassium [Moles/Vol] 4.8 mmol/L Normal 3.5-5.0 [facility] Comment on above: Order Comment: Speci men Type: ARTERIAL BLOOD SPECIMENOrdering Facility: [facility] Address: [address] [place], [place] [address] Performed By: #### A LLBG ####[facility] LABIA [id number] [place] [address] [place] Sodium [Moles/Vol] 135 mmol/L Low 136-144 [facility] Comment on above: Order Comment: Speci men Type: ARTERIAL BLOOD SPECIMENOrdering Facility: [facility] Address: [address] [place], [place] [address] Performed By: #### A LLBG ####[facility] LABIA [id number] [place] [address] [place] Base deficit (BldA) [Moles/Vol] -4 mmol/L Low -2-0 [facility] Comment on above: Order Comment: Speci men Type: ARTERIAL BLOOD SPECIMENOrdering Facility: [facility] Address: [address] [place], [place] [address] Performed By: #### A LLBG ####[facility] LABIA [id number] [place] [address] [place] Calcium.ionized (Bld) [Mass/Vol] 1.19 mmol/L Normal 1.08-1.30 [facility] Comment on above: Order Comment: Speci men Type: ARTERIAL BLOOD SPECIMENOrdering Facility: [facility] Address: [address] [place] [address] Performed By: #### A LLBG ####[facility] LABCLIA [id number] [place] [address] [place] Calcium.ionized adjusted to pH 7.4 (BldA) [Moles/Vol] 1.17 mmol/L Normal 1.08-1.30 [facility] Comment on above: Order Comment: Speci men Type: ARTERIAL BLOOD SPECIMENOrdering Facility: [facility] Address: [address] [place] [address] Performed By: #### A LLBG ####[facility] LABCLIA [id number] [place] [address] [place] Carboxyhemoglobin (BldA) [Mass fraction] 2.4 % High 0.0-2.0 [facility] Comment on above: Order Comment: Speci men Type: ARTERIAL BLOOD SPECIMENOrdering Facility: [facility] Address: [address] [place] [address] Result Comment: Carb oxyhemoglobin Reference Range for Smokers: 2.0-8.0% Performed By: #### A LLBG ####[facility] LABCLIA [id number] [place] [address] [place] CO2 (Bld) [Partial pressure] 37 mm Hg Normal 36-46 [facility] Comment on above: Order Comment: Speci men Type: ARTERIAL BLOOD SPECIMENOrdering Facility: [facility] Address: [address] [place] [address] Performed By: #### A LLBG ####[facility] LABCLIA [id number] [place] [address] [place] CO2 adjusted to patient's actual temperature (Bld) [Partial pressure] 37 mmHg Normal 36-46 [facility] Comment on above: Order Comment: Speci men Type: ARTERIAL BLOOD SPECIMENOrdering Facility: [facility] Address: [address] Performed By: #### A LLBG ####[facility] LABCLIA [id number] [place] [address] [place] Glucose [Mass/Vol] 149 mg/dL High 60-105 [facility] Comment on above: Order Comment: Speci men Type: ARTERIAL BLOOD SPECIMENOrdering Facility: [facility] Address: [address] Performed By: #### A LLBG ####[facility] LABIA [id number] [place] [address] [place] HCO3 (Bld) [Moles/Vol] 21 mmol/L Low 22-26 [facility] Comment on above: Order Comment: Speci men Type: ARTERIAL BLOOD SPECIMENOrdering Facility: [facility] Address: [address] Performed By: #### A LLBG ####[facility] LABIA [id number] [place] [address] [place] Hematocrit (Bld) [Volume fraction] 29.5 % Low 39.0-51.0 [facility] Comment on above: Order Comment: Speci men Type: ARTERIAL BLOOD SPECIMENOrdering Facility: [facility] Address: [address] Performed By: #### A LLBG ####[facility] LABCLIA [id number] [place] [address] [place] Hemoglobin (Bld) [Mass/Vol] 9.5 g/dL Low 13.0-17.0 [facility] Comment on above: Order Comment: Speci men Type: ARTERIAL BLOOD SPECIMENOrdering Facility: [facility] Address: [address] Performed By: #### A LLBG ####[facility] LABCLIA [id number] [place] [address] [place] Lactate [Moles/Vol] 3.3 mmol/L High 0.5-2.2 [facility] Comment on above: Order Comment: Speci men Type: ARTERIAL BLOOD SPECIMENOrdering Facility: [facility] Address: [address] [place] [address] Performed By: #### A LLBG ####[facility] LABCLIA [id number] [place] [address] [place] Methemoglobin (Bld) [Mass fraction] 1.8 % High 0.0-1.5 [facility] Comment on above: Order Comment: Speci men Type: ARTERIAL BLOOD SPECIMENOrdering Facility: [facility] Address: [address] [place] [address] Performed By: #### A LLBG ####[facility] LABIA [id number] [place] [address] [place] Oxygen (Bld) [Partial pressure] 117 mm Hg High 85-95 [facility] Comment on above: Order Comment: Speci men Type: ARTERIAL BLOOD SPECIMENOrdering Facility: [facility] Address: [address] [place], [place] [address] Performed By: #### A LLBG ####[facility] LABIA [id number] [place] [address] [place] Oxygen adjusted to patient's actual temperature (Bld) [Partial pressure] 117 mmHg High 85-95 [facility] Comment on above: Order Comment: Speci men Type: ARTERIAL BLOOD SPECIMENOrdering Facility: [facility] Address: [address] [place], [place] [address] Performed By: #### A LLBG ####[facility] LABIA [id number] [place] [address] [place] Oxyhemoglobin (BldA) [Mass fraction] 94 % Low 95-98 [facility] Comment on above: Order Comment: Speci men Type: ARTERIAL BLOOD SPECIMENOrdering Facility: [facility] Address: [address] [place], [place] [address] Performed By: #### A LLBG ####[facility] LABCLIA [id number] [place] [address] [place] pH (Bld) 7.37 [pH] Normal 7.35-7.45 [facility] Comment on above: Order Comment: Speci men Type: ARTERIAL BLOOD SPECIMENOrdering Facility: [facility] Address: [address] [place], [place] [address] Performed By: #### A LLBG ####[facility] LABIA [id number] [place] [address] [place] pH adjusted to patient's actual temperature (Bld) 7.37 Normal 7.35-7.45 [facility] Comment on above: Order Comment: Speci men Type: ARTERIAL BLOOD SPECIMENOrdering Facility: [facility] Address: [address] [place], [place] [address] Performed By: #### A LLBG ####[facility] LABIA [id number] [place] [address] [place] Potassium [Moles/Vol] 4.8 mmol/L Normal 3.5-5.0 [facility] Comment on above: Order Comment: Speci men Type: ARTERIAL BLOOD SPECIMENOrdering Facility: [facility] Address: [address] [place] [address] Performed By: #### A LLBG ####[facility] LABIA [id number] [place] [address] [place] Sodium [Moles/Vol] 134 mmol/L Low 136-144 [facility] Comment on above: Order Comment: Speci men Type: ARTERIAL BLOOD SPECIMENOrdering Facility: [facility] Address: [address] Performed By: #### A LLBG ####[facility] [id number] [place] [address] [place] Base deficit (BldA) [Moles/Vol] -2 mmol/L Normal -2-0 [facility] Comment on above: Order Comment: Speci men Type: ARTERIAL BLOOD SPECIMENOrdering Facility: [facility] Address: [address] [place], [place] [address] Performed By: #### A LLBG ####[facility] [id number] [place] [address] [place] Calcium.ionized (Bld) [Mass/Vol] 1.20 mmol/L Normal 1.08-1.30 [facility] Comment on above: Order Comment: Speci men Type: ARTERIAL BLOOD SPECIMENOrdering Facility: [facility] Address: [address] [place], [place] [address] Performed By: #### A LLBG ####[facility] [id number] [place] [address] [place] Calcium.ionized adjusted to pH 7.4 (BldA) [Moles/Vol] 1.21 mmol/L Normal 1.08-1.30 [facility] Comment on above: Order Comment: Speci men Type: ARTERIAL BLOOD SPECIMENOrdering Facility: [facility] Address: [address] [place], [place] [address] Performed By: #### A LLBG ####[facility] [id number] [place] [address] [place] Carboxyhemoglobin (BldA) [Mass fraction] 2.2 % High 0.0-2.0 [facility] Comment on above: Order Comment: Speci men Type: ARTERIAL BLOOD SPECIMENOrdering Facility: [facility] Address: [address] [place], [place] [address] Result Comment: Carb oxyhemoglobin Reference Range for Smokers: 2.0-8.0% Performed By: #### A LLBG ####[facility] LABCLIA [id number] [place] [address] [place] CO2 (Bld) [Partial pressure] 34 mm Hg Low 36-46 [facility] Comment on above: Order Comment: Speci men Type: ARTERIAL BLOOD SPECIMENOrdering Facility: [facility] Address: [address] [place] [address] Performed By: #### A LLBG ####[facility] LABCLIA [id number] [place] [address] [place] CO2 adjusted to patient's actual temperature (Bld) [Partial pressure] 34 mmHg Low 36-46 [facility] Comment on above: Order Comment: Speci men Type: ARTERIAL BLOOD SPECIMENOrdering Facility: [facility] Address: [address] [place] [address] Performed By: #### A LLBG ####[facility] LABCLIA [id number] [place] [address] [place] Glucose [Mass/Vol] 134 mg/dL High 60-105 [facility] Comment on above: Order Comment: Speci men Type: ARTERIAL BLOOD SPECIMENOrdering Facility: [facility] Address: [address] [place], [place] [address] Performed By: #### A LLBG ####[facility] LABCLIA [id number] [place] [address] [place] HCO3 (Bld) [Moles/Vol] 21 mmol/L Low 22-26 [facility] Comment on above: Order Comment: Speci men Type: ARTERIAL BLOOD SPECIMENOrdering Facility: [facility] Address: [address] [place], [place] [address] Performed By: #### A LLBG ####[facility] LABCLIA [id number] [place] [address] [place] Hematocrit (Bld) [Volume fraction] 32.2 % Low 39.0-51.0 [facility] Comment on above: Order Comment: Speci men Type: ARTERIAL BLOOD SPECIMENOrdering Facility: [facility] Address: [address] Performed By: #### A LLBG ####[facility] LABIA [id number] [place] [address] [place] Hemoglobin (Bld) [Mass/Vol] 10.4 g/dL Low 13.0-17.0 [facility] Comment on above: Order Comment: Speci men Type: ARTERIAL BLOOD SPECIMENOrdering Facility: [facility] Address: [address] Performed By: #### A LLBG ####[facility] LABIA [id number] [place] [address] [place] Lactate [Moles/Vol] 2.3 mmol/L High 0.5-2.2 [facility] Comment on above: Order Comment: Speci men Type: ARTERIAL BLOOD SPECIMENOrdering Facility: [facility] Address: [address] Performed By: #### A LLBG ####[facility] LABIA [id number] [address] [place] Methemoglobin (Bld) [Mass fraction] 1.4 % Normal 0.0-1.5 [facility] Comment on above: Order Comment: Speci men Type: ARTERIAL BLOOD SPECIMENOrdering Facility: [facility] Address: [address] Performed By: #### A LLBG ####[facility] LABIA [id number] [place] [address] [place] Oxygen (Bld) [Partial pressure] 179 mm Hg High 85-95 [facility] Comment on above: Order Comment: Speci men Type: ARTERIAL BLOOD SPECIMENOrdering Facility: [facility] Address: [address] Performed By: #### A LLBG ####[facility] LABCLIA [id number] [place] [address] [place] Oxygen adjusted to patient's actual temperature (Bld) [Partial pressure] 179 mmHg High 85-95 [facility] Comment on above: Order Comment: Speci men Type: ARTERIAL BLOOD SPECIMENOrdering Facility: [facility] Address: [address] [place], [place] [address] Performed By: #### A LLBG ####[facility] LABIA [id number] [place] [address] [place] Oxyhemoglobin (BldA) [Mass fraction] 96 % Normal 95-98 [facility] Comment on above: Order Comment: Speci men Type: ARTERIAL BLOOD SPECIMENOrdering Facility: [facility] Address: [address] [place], [place] [address] Performed By: #### A LLBG ####[facility] LABIA [id number] [place] [address] [place] pH (Bld) 7.41 [pH] Normal 7.35-7.45 [facility] Comment on above: Order Comment: Speci men Type: ARTERIAL BLOOD SPECIMENOrdering Facility: [facility] Address: [address] [place] [address] Performed By: #### A LLBG ####[facility] LABIA [id number] [place] [address] [place] pH adjusted to patient's actual temperature (Bld) 7.41 Normal 7.35-7.45 [facility] Comment on above: Order Comment: Speci men Type: ARTERIAL BLOOD SPECIMENOrdering Facility: [facility] Address: [address] [place] [address] Performed By: #### A LLBG ####[facility] LABIA [id number] [place] [address] [place] Potassium [Moles/Vol] 4.5 mmol/L Normal 3.5-5.0 [facility] Comment on above: Order Comment: Speci men Type: ARTERIAL BLOOD SPECIMENOrdering Facility: [facility] Address: [address] Performed By: #### A LLBG ####[facility] LABIA [id number] [place] [address] [place] Sodium [Moles/Vol] 135 mmol/L Low 136-144 [facility] Comment on above: Order Comment: Speci men Type: ARTERIAL BLOOD SPECIMENOrdering Facility: [facility] Address: [address] [place], [place] [address] Performed By: #### A LLBG ####[facility] [id number] [place] [address] [place] ARTERIAL BLOOD GASES WITH IO NIZED MAGNESIUMon 04-04-2023 Base deficit (BldA) [Moles/Vol] -4 mmol/L Low -2-0 [facility] Comment on above: Order Comment: Speci men Type: ARTERIAL BLOOD SPECIMENOrdering Facility: [facility] Address: [address] [place], [place] [address] Performed By: #### A LLMG ####[facility] [id number] [place] [address] [place] Calcium.ionized (Bld) [Mass/Vol] 1.18 mmol/L Normal 1.08-1.30 [facility] Comment on above: Order Comment: Speci men Type: ARTERIAL BLOOD SPECIMENOrdering Facility: [facility] Address: [address] [place], [place] [address] Performed By: #### A LLMG ####[facility] LABIA [id number] [place] [address] [place] Calcium.ionized adjusted to pH 7.4 (BldA) [Moles/Vol] 1.15 mmol/L Normal 1.08-1.30 [facility] Comment on above: Order Comment: Speci men Type: ARTERIAL BLOOD SPECIMENOrdering Facility: [facility] Address: [address] [place] [address] Performed By: #### A LLMG ####[facility] LABCLIA [id number] [place] [address] [place] Carboxyhemoglobin (BldA) [Mass fraction] 2.6 % High 0.0-2.0 [facility] Comment on above: Order Comment: Speci men Type: ARTERIAL BLOOD SPECIMENOrdering Facility: [facility] Address: [address] [place] [address] Result Comment: Carb oxyhemoglobin Reference Range for Smokers: 2.0-8.0% Performed By: #### A LLMG ####[facility] LABIA [id number] [place] [address] [place] CO2 (Bld) [Partial pressure] 36 mm Hg Normal 36-46 [facility] Comment on above: Order Comment: Speci men Type: ARTERIAL BLOOD SPECIMENOrdering Facility: [facility] Address: [address] [place] [address] Performed By: #### A LLMG ####[facility] LABCLIA [id number] [address] [place] CO2 adjusted to patient's actual temperature (Bld) [Partial pressure] 36 mmHg Normal 36-46 [facility] Comment on above: Order Comment: Speci men Type: ARTERIAL BLOOD SPECIMENOrdering Facility: [facility] Address: [address] Performed By: #### A LLMG ####[facility] LABIA [id number] [place] [address] [place] Glucose [Mass/Vol] 141 mg/dL High 60-105 [facility] Comment on above: Order Comment: Speci men Type: ARTERIAL BLOOD SPECIMENOrdering Facility: [facility] Address: [address] Performed By: #### A LLMG ####[facility] LABCLIA [id number] [place] [address] [place] HCO3 (Bld) [Moles/Vol] 20 mmol/L Low 22-26 [facility] Comment on above: Order Comment: Speci men Type: ARTERIAL BLOOD SPECIMENOrdering Facility: [facility] Address: [address] [place], [place] [address] Performed By: #### A LLMG ####[facility] LABCLIA [id number] [place] [address] [place] Hematocrit (Bld) [Volume fraction] 29.2 % Low 39.0-51.0 [facility] Comment on above: Order Comment: Speci men Type: ARTERIAL BLOOD SPECIMENOrdering Facility: [facility] Address: [address] [place], [place] [address] Performed By: #### A LLMG ####[facility] LABIA [id number] [place] [address] [place] Hemoglobin (Bld) [Mass/Vol] 9.4 g/dL Low 13.0-17.0 [facility] Comment on above: Order Comment: Speci men Type: ARTERIAL BLOOD SPECIMENOrdering Facility: [facility] Address: [address] [place], [place] [address] Performed By: #### A LLMG ####[facility] LABCLIA [id number] [place] [address] [place] Lactate [Moles/Vol] 2.7 mmol/L High 0.5-2.2 [facility] Comment on above: Order Comment: Speci men Type: ARTERIAL BLOOD SPECIMENOrdering Facility: [facility] Address: [address] Performed By: #### A LLMG ####[facility] LABCLIA [id number] [place] [address] [place] Magnesium [Moles/Vol] 0.78 mmol/L High 0.45-0.60 [facility] Comment on above: Order Comment: Speci men Type: ARTERIAL BLOOD SPECIMENOrdering Facility: [facility] Address: [address] [place], [place] [address] Performed By: #### A LLMG ####[facility] LABCLIA [id number] [address] [place] Methemoglobin (Bld) [Mass fraction] 1.1 % Normal 0.0-1.5 [facility] Comment on above: Order Comment: Speci men Type: ARTERIAL BLOOD SPECIMENOrdering Facility: [facility] Address: [address] [place], [place] [address] Performed By: #### A LLMG ####[facility] LABCLIA [id number] [address] [place] Oxygen (Bld) [Partial pressure] 186 mm Hg High 85-95 [facility] Comment on above: Order Comment: Speci men Type: ARTERIAL BLOOD SPECIMENOrdering Facility: [facility] Address: [address] [place], [place] [address] Performed By: #### A LLMG ####[facility] LABCLIA [id number] [address] [place] Oxygen adjusted to patient's actual temperature (Bld) [Partial pressure] 186 mmHg High 85-95 [facility] Comment on above: Order Comment: Speci men Type: ARTERIAL BLOOD SPECIMENOrdering Facility: [facility] Address: [address] [place], [place] [address] Performed By: #### A LLMG ####[facility] LABCLIA [id number] [place] [address] [place] Oxyhemoglobin (BldA) [Mass fraction] 96 % Normal 95-98 [facility] Comment on above: Order Comment: Speci men Type: ARTERIAL BLOOD SPECIMENOrdering Facility: [facility] Address: [address] Performed By: #### A LLMG ####[facility] LABIA [id number] [place] [address] [place] pH (Bld) 7.36 [pH] Normal 7.35-7.45 [facility] Comment on above: Order Comment: Speci men Type: ARTERIAL BLOOD SPECIMENOrdering Facility: [facility] Address: [address] [place], [place] [address] Performed By: #### A LLMG ####[facility] LABIA [id number] [place] [address] [place] pH adjusted to patient's actual temperature (Bld) 7.36 Normal 7.35-7.45 [facility] Comment on above: Order Comment: Speci men Type: ARTERIAL BLOOD SPECIMENOrdering Facility: [facility] Address: [address] [place], [place] [address] Performed By: #### A LLMG ####[facility] LABIA [id number] [place] [address] [place] Potassium [Moles/Vol] 4.5 mmol/L Normal 3.5-5.0 [facility] Comment on above: Order Comment: Speci men Type: ARTERIAL BLOOD SPECIMENOrdering Facility: [facility] Address: [address] [place], [place] [address] Performed By: #### A LLMG ####[facility] LABIA [id number] [place] [address] [place] Sodium [Moles/Vol] 133 mmol/L Low 136-144 [facility] Comment on above: Order Comment: Speci men Type: ARTERIAL BLOOD SPECIMENOrdering Facility: [facility] Address: [address] [place], [place] [address] Performed By: #### A LLMG ####[facility] LABIA [id number] [place] Base deficit (BldA) [Moles/Vol] -4 mmol/L Low -2-0 [facility] Comment on above: Order Comment: Speci men Type: ARTERIAL BLOOD SPECIMENOrdering Facility: [facility] Address: [address] [place] [address] Performed By: #### A LLMG ####[facility] LABCLIA [id number] [place] [address] [place] Calcium.ionized (Bld) [Mass/Vol] 1.22 mmol/L Normal 1.08-1.30 [facility] Comment on above: Order Comment: Speci men Type: ARTERIAL BLOOD SPECIMENOrdering Facility: [facility] Address: [address] [place] [address] Performed By: #### A LLMG ####[facility] LABCLIA [id number] [address] [place] [facility] Calcium.ionized adjusted to pH 7.4 (BldA) [Moles/Vol] 1.19 mmol/L Normal 1.08-1.30 [facility] Comment on above: Order Comment: Speci men Type: ARTERIAL BLOOD SPECIMENOrdering Facility: [facility] Address: [address] [place], [place] [address] Performed By: #### A LLMG ####[facility] LABCLIA [id number] [place] [address] [place] Carboxyhemoglobin (BldA) [Mass fraction] 2.1 % High 0.0-2.0 [facility] Comment on above: Order Comment: Speci men Type: ARTERIAL BLOOD SPECIMENOrdering Facility: [facility] Address: [address] [place], [place] [address] Result Comment: Carb oxyhemoglobin Reference Range for Smokers: 2.0-8.0% Performed By: #### A LLMG ####[facility] LABCLIA [id number] [place] [address] [place] CO2 (Bld) [Partial pressure] 38 mm Hg Normal 36-46 [facility] Comment on above: Order Comment: Speci men Type: ARTERIAL BLOOD SPECIMENOrdering Facility: [facility] Address: [address] [place], [place] [address] Performed By: #### A LLMG ####[facility] LABCLIA [id number] [address] [place] CO2 adjusted to patient's actual temperature (Bld) [Partial pressure] 38 mmHg Normal 36-46 [facility] Comment on above: Order Comment: Speci men Type: ARTERIAL BLOOD SPECIMENOrdering Facility: [facility] Address: [address] [place], [place] [address] Performed By: #### A LLMG ####[facility] LABCLIA [id number] [place] [address] [place] Glucose [Mass/Vol] 138 mg/dL High 60-105 [facility] Comment on above: Order Comment: Speci men Type: ARTERIAL BLOOD SPECIMENOrdering Facility: [facility] Address: [address] [place], [place] [address] Performed By: #### A LLMG ####[facility] LABCLIA [id number] [address] [place] HCO3 (Bld) [Moles/Vol] 21 mmol/L Low 22-26 [facility] Comment on above: Order Comment: Speci men Type: ARTERIAL BLOOD SPECIMENOrdering Facility: [facility] Address: [address] Performed By: #### A LLMG ####[facility] LABCLIA [id number] [address] [place] Hematocrit (Bld) [Volume fraction] 30.7 % Low 39.0-51.0 [facility] Comment on above: Order Comment: Speci men Type: ARTERIAL BLOOD SPECIMENOrdering Facility: [facility] Address: [address] Performed By: #### A LLMG ####[facility] LABIA [id number] [address] [place] Hemoglobin (Bld) [Mass/Vol] 9.9 g/dL Low 13.0-17.0 [facility] Comment on above: Order Comment: Speci men Type: ARTERIAL BLOOD SPECIMENOrdering Facility: [facility] Address: [address] Performed By: #### A LLMG ####[facility] LABIA [id number] [place] [address] [place] Lactate [Moles/Vol] 2.6 mmol/L High 0.5-2.2 [facility] Comment on above: Order Comment: Speci men Type: ARTERIAL BLOOD SPECIMENOrdering Facility: [facility] Address: [address] [place], [place] [address] Performed By: #### A LLMG ####[facility] LABIA [id number] [place] [address] [place] Magnesium [Moles/Vol] 0.49 mmol/L Normal 0.45-0.60 [facility] Comment on above: Order Comment: Speci men Type: ARTERIAL BLOOD SPECIMENOrdering Facility: [facility] Address: [address] Performed By: #### A LLMG ####[facility] LABIA [id number] [place] [address] [place] Methemoglobin (Bld) [Mass fraction] 1.8 % High 0.0-1.5 [facility] Comment on above: Order Comment: Speci men Type: ARTERIAL BLOOD SPECIMENOrdering Facility: [facility] Address: [address] Performed By: #### A LLMG ####[facility] LABIA [id number] [place] [address] [place] Oxygen (Bld) [Partial pressure] 249 mm Hg High 85-95 [facility] Comment on above: Order Comment: Speci men Type: ARTERIAL BLOOD SPECIMENOrdering Facility: [facility] Address: [address] [place], [place] [address] Performed By: #### A LLMG ####[facility] LABCLIA [id number] [place] [address] [place] Oxygen adjusted to patient's actual temperature (Bld) [Partial pressure] 249 mmHg High 85-95 [facility] Comment on above: Order Comment: Speci men Type: ARTERIAL BLOOD SPECIMENOrdering Facility: [facility] Address: [address] [place] [address] Performed By: #### A LLMG ####[facility] LABCLIA [id number] [place] [address] [place] Oxyhemoglobin (BldA) [Mass fraction] 95 % Normal 95-98 [facility] Comment on above: Order Comment: Speci men Type: ARTERIAL BLOOD SPECIMENOrdering Facility: [facility] Address: [address] [place], [place] [address] Performed By: #### A LLMG ####[facility] LABCLIA [id number] [place] [address] [place] pH (Bld) 7.35 [pH] Normal 7.35-7.45 [facility] Comment on above: Order Comment: Speci men Type: ARTERIAL BLOOD SPECIMENOrdering Facility: [facility] Address: [address] [place], [place] [address] Performed By: #### A LLMG ####[facility] LABCLIA [id number] [place] [address] [place] pH adjusted to patient's actual temperature (Bld) 7.35 Normal 7.35-7.45 [facility] Comment on above: Order Comment: Speci men Type: ARTERIAL BLOOD SPECIMENOrdering Facility: [facility] Address: [address] Performed By: #### A LLMG ####[facility] LABCLIA [id number] [place] [address] [place] Potassium [Moles/Vol] 4.4 mmol/L Normal 3.5-5.0 [facility] Comment on above: Order Comment: Speci men Type: ARTERIAL BLOOD SPECIMENOrdering Facility: [facility] Address: [address] Performed By: #### A LLMG ####[facility] LABCLIA [id number] [place] [address] [place] Sodium [Moles/Vol] 134 mmol/L Low 136-144 [facility] [place] Comment on above: Order Comment: Speci men Type: ARTERIAL BLOOD SPECIMENOrdering Facility: [facility] Address: [address] Performed By: #### A LLMG ####[facility] LABCLIA [id number] [place] [address] [place] Base deficit (BldA) [Moles/Vol] -3 mmol/L Low -2-0 [facility] Comment on above: Order Comment: Speci men Type: ARTERIAL BLOOD SPECIMENOrdering Facility: [facility] Address: [address] Performed By: #### A LLMG ####[facility] LABCLIA [id number] [place] [address] [place] Calcium.ionized (Bld) [Mass/Vol] 1.19 mmol/L Normal 1.08-1.30 [facility] Comment on above: Order Comment: Speci men Type: ARTERIAL BLOOD SPECIMENOrdering Facility: [facility] Address: [address] Performed By: #### A LLMG ####[facility] LABCLIA [id number] [place] [address] [place] Calcium.ionized adjusted to pH 7.4 (BldA) [Moles/Vol] 1.20 mmol/L Normal 1.08-1.30 [facility] Comment on above: Order Comment: Speci men Type: ARTERIAL BLOOD SPECIMENOrdering Facility: [facility] Address: [address] [place] [address] Performed By: #### A LLMG ####[facility] LABIA [id number] [place] [address] [place] Carboxyhemoglobin (BldA) [Mass fraction] 2.4 % High 0.0-2.0 [facility] Comment on above: Order Comment: Speci men Type: ARTERIAL BLOOD SPECIMENOrdering Facility: [facility] Address: [address] [place] [address] Result Comment: Carb oxyhemoglobin Reference Range for Smokers: 2.0-8.0% Performed By: #### A LLMG ####[facility] [id number] [place] [address] [place] CO2 (Bld) [Partial pressure] 33 mm Hg Low 36-46 [facility] Comment on above: Order Comment: Speci men Type: ARTERIAL BLOOD SPECIMENOrdering Facility: [facility] Address: [address] [place] [address] Performed By: #### A LLMG ####[facility] LABIA [id number] [place] [address] [place] CO2 adjusted to patient's actual temperature (Bld) [Partial pressure] 33 mmHg Low 36-46 [facility] Comment on above: Order Comment: Speci men Type: ARTERIAL BLOOD SPECIMENOrdering Facility: [facility] Address: [address] [place], [place] [address] Performed By: #### A LLMG ####[facility] [id number] [place] [address] [id number] [address] [place] Glucose [Mass/Vol] 147 mg/dL High 60-105 [facility] [place] Comment on above: Order Comment: Speci men Type: ARTERIAL BLOOD SPECIMENOrdering Facility: [facility] Address: [address] [place] [address] Performed By: #### A LLMG ####[facility] LABCLIA [id number] [place] [address] [place] HCO3 (Bld) [Moles/Vol] 21 mmol/L Low 22-26 [facility] Comment on above: Order Comment: Speci men Type: ARTERIAL BLOOD SPECIMENOrdering Facility: [facility] Address: [address] [place] [address] Performed By: #### A LLMG ####[facility] LABCLIA [id number] [place] [address] [place] Hematocrit (Bld) [Volume fraction] 30.9 % Low 39.0-51.0 [facility] Comment on above: Order Comment: Speci men Type: ARTERIAL BLOOD SPECIMENOrdering Facility: [facility] Address: [address] [place], [place] [address] Performed By: #### A LLMG ####[facility] LABCLIA [id number] [place] [address] [place] Hemoglobin (Bld) [Mass/Vol] 10.0 g/dL Low 13.0-17.0 [facility] Comment on above: Order Comment: Speci men Type: ARTERIAL BLOOD SPECIMENOrdering Facility: [facility] Address: [address] [place], [place] [address] Performed By: #### A LLMG ####[facility] LABCLIA [id number] [place] [address] [place] Lactate [Moles/Vol] 2.2 mmol/L Normal 0.5-2.2 [facility] Comment on above: Order Comment: Speci men Type: ARTERIAL BLOOD SPECIMENOrdering Facility: [facility] Address: [address] Performed By: #### A LLMG ####[facility] LABCLIA [id number] [place] [address] [place] Magnesium [Moles/Vol] 0.37 mmol/L Low 0.45-0.60 [facility] Comment on above: Order Comment: Speci men Type: ARTERIAL BLOOD SPECIMENOrdering Facility: [facility] Address: [address] Performed By: #### A LLMG ####[facility] LABCLIA [id number] [place] [address] [place] Methemoglobin (Bld) [Mass fraction] 1.9 % High 0.0-1.5 [facility] Comment on above: Order Comment: Speci men Type: ARTERIAL BLOOD SPECIMENOrdering Facility: [facility] Address: [address] [place], [place] [address] Performed By: #### A LLMG ####[facility] LABCLIA [id number] [place] [address] [place] Oxygen (Bld) [Partial pressure] 172 mm Hg High 85-95 [facility] Comment on above: Order Comment: Speci men Type: ARTERIAL BLOOD SPECIMENOrdering Facility: [facility] Address: [address] [place] [address] Performed By: #### A LLMG ####[facility] LABCLIA [id number] [place] [address] [place] Oxygen adjusted to patient's actual temperature (Bld) [Partial pressure] 172 mmHg High 85-95 [facility] Comment on above: Order Comment: Speci men Type: ARTERIAL BLOOD SPECIMENOrdering Facility: [facility] Address: [address] [place] [address] Performed By: #### A LLMG ####[facility] LABCLIA [id number] [place] [address] [place] Oxyhemoglobin (BldA) [Mass fraction] 95 % Normal 95-98 [facility] Comment on above: Order Comment: Speci men Type: ARTERIAL BLOOD SPECIMENOrdering Facility: [facility] Address: [address] [place] [address] Performed By: #### A LLMG ####[facility] LABIA [id number] [place] [address] [place] pH (Bld) 7.41 [pH] Normal 7.35-7.45 [facility] Comment on above: Order Comment: Speci men Type: ARTERIAL BLOOD SPECIMENOrdering Facility: [facility] Address: [address] [place] [address] Performed By: #### A LLMG ####[facility] LABIA [id number] [place] [address] [place] pH adjusted to patient's actual temperature (Bld) 7.41 Normal 7.35-7.45 [facility] Comment on above: Order Comment: Speci men Type: ARTERIAL BLOOD SPECIMENOrdering Facility: [facility] Address: [address] [place], [place] [address] Performed By: #### A LLMG ####[facility] LABIA [id number] [place] [address] [place] Potassium [Moles/Vol] 4.2 mmol/L Normal 3.5-5.0 [facility] Comment on above: Order Comment: Speci men Type: ARTERIAL BLOOD SPECIMENOrdering Facility: [facility] Address: [address] [place], [place] [address] Performed By: #### A LLMG ####[facility] LABIA [id number] [place] [address] [place] Sodium [Moles/Vol] 133 mmol/L Low 136-144 [facility] [place] Comment on above: Order Comment: Speci men Type: ARTERIAL BLOOD SPECIMENOrdering Facility: [facility] Address: [address] Performed By: #### A LLMG ####[facility] [id number] [address] [place] Base deficit (BldA) [Moles/Vol] -2 mmol/L Normal -2-0 [facility] Comment on above: Order Comment: Speci men Type: ARTERIAL BLOOD SPECIMENOrdering Facility: [facility] Address: [address] [place], [place] [address] Performed By: #### A LLMG ####[facility] [id number] [place] [address] [place] Calcium.ionized (Bld) [Mass/Vol] 1.23 mmol/L Normal 1.08-1.30 [facility] Comment on above: Order Comment: Speci men Type: ARTERIAL BLOOD SPECIMENOrdering Facility: [facility] Address: [address] [place], [place] [address] Performed By: #### A LLMG ####[facility] [id number] [place] [address] [place] Calcium.ionized adjusted to pH 7.4 (BldA) [Moles/Vol] 1.24 mmol/L Normal 1.08-1.30 [facility] Comment on above: Order Comment: Speci men Type: ARTERIAL BLOOD SPECIMENOrdering Facility: [facility] Address: [address] [place], [place] [address] Performed By: #### A LLMG ####[facility] [id number] [place] [address] [place] Carboxyhemoglobin (BldA) [Mass fraction] 2.7 % High 0.0-2.0 [facility] Comment on above: Order Comment: Speci men Type: ARTERIAL BLOOD SPECIMENOrdering Facility: [facility] Address: [address] [place], [place] [address] Result Comment: Carb oxyhemoglobin Reference Range for Smokers: 2.0-8.0% Performed By: #### A LLMG ####[facility] LABCLIA [id number] [address] STATES OF [facility] CO2 (Bld) [Partial pressure] 35 mm Hg Low 36-46 [facility] Comment on above: Order Comment: Speci men Type: ARTERIAL BLOOD SPECIMENOrdering Facility: [facility] Address: [address] [place] [address] Performed By: #### A LLMG ####[facility] LABCLIA [id number] [address] CO2 adjusted to patient's actual temperature (Bld) [Partial pressure] 35 mmHg Low 36-46 [facility] Comment on above: Order Comment: Speci men Type: ARTERIAL BLOOD SPECIMENOrdering Facility: [facility] Address: [address] [place] [address] Performed By: #### A LLMG ####[facility] LABCLIA [id number] [place] [address] [place] Glucose [Mass/Vol] 140 mg/dL High 60-105 [facility] [place] Comment on above: Order Comment: Speci men Type: ARTERIAL BLOOD SPECIMENOrdering Facility: [facility] Address: [address] [place] [address] Performed By: #### A LLMG ####[facility] LABCLIA [id number] [place] [address] [place] HCO3 (Bld) [Moles/Vol] 22 mmol/L Normal 22-26 [facility] Comment on above: Order Comment: Speci men Type: ARTERIAL BLOOD SPECIMENOrdering Facility: [facility] Address: [address] [place] [address] Performed By: #### A LLMG ####[facility] LABCLIA [id number] [place] [address] [place] Hematocrit (Bld) [Volume fraction] 28.5 % Low 39.0-51.0 [facility] Comment on above: Order Comment: Speci men Type: ARTERIAL BLOOD SPECIMENOrdering Facility: [facility] Address: [address] [place] [address] Performed By: #### A LLMG ####[facility] LABCLIA [id number] [place] [address] [place] Hemoglobin (Bld) [Mass/Vol] 9.2 g/dL Low 13.0-17.0 [facility] Comment on above: Order Comment: Speci men Type: ARTERIAL BLOOD SPECIMENOrdering Facility: [facility] Address: [address] [place] [address] Performed By: #### A LLMG ####[facility] LABCLIA [id number] [place] [address] [place] Lactate [Moles/Vol] 2.0 mmol/L Normal 0.5-2.2 [facility] Comment on above: Order Comment: Speci men Type: ARTERIAL BLOOD SPECIMENOrdering Facility: [facility] Address: [address] [place], [place] [address] Performed By: #### A LLMG ####[facility] LABCLIA [id number] [place] [address] [place] Magnesium [Moles/Vol] 0.36 mmol/L Low 0.45-0.60 [facility] Comment on above: Order Comment: Speci men Type: ARTERIAL BLOOD SPECIMENOrdering Facility: [facility] Address: [address] [place], [place] [address] Performed By: #### A LLMG ####[facility] LABCLIA [id number] [place] [address] [place] Methemoglobin (Bld) [Mass fraction] 1.7 % High 0.0-1.5 [facility] Comment on above: Order Comment: Speci men Type: ARTERIAL BLOOD SPECIMENOrdering Facility: [facility] Address: [address] Performed By: #### A LLMG ####[facility] LABCLIA [id number] [place] [address] [place] Oxygen (Bld) [Partial pressure] 128 mm Hg High 85-95 [facility] Comment on above: Order Comment: Speci men Type: ARTERIAL BLOOD SPECIMENOrdering Facility: [facility] Address: [address] Performed By: #### A LLMG ####[facility] LABCLIA [id number] [place] [address] [place] Oxygen adjusted to patient's actual temperature (Bld) [Partial pressure] 128 mmHg High 85-95 [facility] Comment on above: Order Comment: Speci men Type: ARTERIAL BLOOD SPECIMENOrdering Facility: [facility] Address: [address] Performed By: #### A LLMG ####[facility] LABCLIA [id number] [place] [address] [place] Oxyhemoglobin (BldA) [Mass fraction] 95 % Normal 95-98 [facility] Comment on above: Order Comment: Speci men Type: ARTERIAL BLOOD SPECIMENOrdering Facility: [facility] Address: [address] Performed By: #### A LLMG ####[facility] LABCLIA [id number] [place] [address] [place] pH (Bld) 7.41 [pH] Normal 7.35-7.45 [facility] Comment on above: Order Comment: Speci men Type: ARTERIAL BLOOD SPECIMENOrdering Facility: [facility] Address: [address] Performed By: #### A LLMG ####[facility] LABCLIA [id number] [place] [address] [place] pH adjusted to patient's actual temperature (Bld) 7.41 Normal 7.35-7.45 [facility] Comment on above: Order Comment: Speci men Type: ARTERIAL BLOOD SPECIMENOrdering Facility: [facility] Address: [address] [place] [address] Performed By: #### A LLMG ####[facility] LABCLIA [id number] [place] [address] [place] Potassium [Moles/Vol] 4.2 mmol/L Normal 3.5-5.0 [facility] Comment on above: Order Comment: Speci men Type: ARTERIAL BLOOD SPECIMENOrdering Facility: [facility] Address: [address] [place] [address] Performed By: #### A LLMG ####[facility] LABIA [id number] [place] [address] [place] Sodium [Moles/Vol] 134 mmol/L Low 136-144 [facility] [place] Comment on above: Order Comment: Speci men Type: ARTERIAL BLOOD SPECIMENOrdering Facility: [facility] Address: [address] [place] [address] Performed By: #### A LLMG ####[facility] LABIA [id number] [place] [address] [place] Base excess Calc (Bld) [Moles/Vol] 0 mmol/L Normal 0-2 [facility] Comment on above: Order Comment: Speci men Type: ARTERIAL BLOOD SPECIMENOrdering Facility: [facility] Address: [address] [place], [place] [address] Performed By: #### A LLMG ####[facility] LABCLIA [id number] [place] [address] [place] Calcium.ionized (Bld) [Mass/Vol] 1.28 mmol/L Normal 1.08-1.30 [facility] Comment on above: Order Comment: Speci men Type: ARTERIAL BLOOD SPECIMENOrdering Facility: [facility] Address: [address] [place] [address] Performed By: #### A LLMG ####[facility] LABCLIA [id number] [place] [address] [place] Calcium.ionized adjusted to pH 7.4 (BldA) [Moles/Vol] 1.32 mmol/L High 1.08-1.30 [facility] Comment on above: Order Comment: Speci men Type: ARTERIAL BLOOD SPECIMENOrdering Facility: [facility] Address: [address] [place] [address] Performed By: #### A LLMG ####[facility] LABIA [id number] [place] [address] [place] Carboxyhemoglobin (BldA) [Mass fraction] 3.8 % High 0.0-2.0 [facility] Comment on above: Order Comment: Speci men Type: ARTERIAL BLOOD SPECIMENOrdering Facility: [facility] Address: [address] [place] [address] Result Comment: Carb oxyhemoglobin Reference Range for Smokers: 2.0-8.0% Performed By: #### A LLMG ####[facility] LABIA [id number] [place] [address] [place] CO2 (Bld) [Partial pressure] 33 mm Hg Low 36-46 [facility] Comment on above: Order Comment: Speci men Type: ARTERIAL BLOOD SPECIMENOrdering Facility: [facility] Address: [address] [place] [address] Performed By: #### A LLMG ####[facility] LABCLIA [id number] [place] [address] [place] CO2 adjusted to patient's actual temperature (Bld) [Partial pressure] 33 mmHg Low 36-46 [facility] Comment on above: Order Comment: Speci men Type: ARTERIAL BLOOD SPECIMENOrdering Facility: [facility] Address: [address] Performed By: #### A LLMG ####[facility] LABCLIA [id number] [place] [address] [place] Glucose [Mass/Vol] 130 mg/dL High 60-105 [facility] [place] Comment on above: Order Comment: Speci men Type: ARTERIAL BLOOD SPECIMENOrdering Facility: [facility] Address: [address] Performed By: #### A LLMG ####[facility] LABIA [id number] [place] [address] [place] HCO3 (Bld) [Moles/Vol] 23 mmol/L Normal 22-26 [facility] Comment on above: Order Comment: Speci men Type: ARTERIAL BLOOD SPECIMENOrdering Facility: [facility] Address: [address] [place], [place] [address] Performed By: #### A LLMG ####[facility] LABIA [id number] [place] [address] [place] Hematocrit (Bld) [Volume fraction] 24.1 % Low 39.0-51.0 [facility] Comment on above: Order Comment: Speci men Type: ARTERIAL BLOOD SPECIMENOrdering Facility: [facility] Address: [address] [place], [place] [address] Performed By: #### A LLMG ####[facility] LABCLIA [id number] [place] [address] [place] Hemoglobin (Bld) [Mass/Vol] 7.7 g/dL Low 13.0-17.0 [facility] Comment on above: Order Comment: Speci men Type: ARTERIAL BLOOD SPECIMENOrdering Facility: [facility] Address: [address] [place], [place] [address] Performed By: #### A LLMG ####[facility] LABCLIA [id number] [address] [place] Lactate [Moles/Vol] 1.4 mmol/L Normal 0.5-2.2 [facility] Comment on above: Order Comment: Speci men Type: ARTERIAL BLOOD SPECIMENOrdering Facility: [facility] Address: [address] [place] [address] Performed By: #### A LLMG ####[facility] LABIA [id number] [place] [address] [place] Magnesium [Moles/Vol] 0.35 mmol/L Low 0.45-0.60 [facility] Comment on above: Order Comment: Speci men Type: ARTERIAL BLOOD SPECIMENOrdering Facility: [facility] Address: [address] [place] [address] Performed By: #### A LLMG ####[facility] LABIA [id number] [address] [place] Methemoglobin (Bld) [Mass fraction] 0.8 % Normal 0.0-1.5 [facility] Comment on above: Order Comment: Speci men Type: ARTERIAL BLOOD SPECIMENOrdering Facility: [facility] Address: [address] [place], [place] [address] Performed By: #### A LLMG ####[facility] LABIA [id number] [place] [address] [place] Oxygen (Bld) [Partial pressure] 141 mm Hg High 85-95 [facility] Comment on above: Order Comment: Speci men Type: ARTERIAL BLOOD SPECIMENOrdering Facility: [facility] Address: [address] [place], [place] [address] Performed By: #### A LLMG ####[facility] LABCLIA [id number] [place] [address] [place] Oxygen adjusted to patient's actual temperature (Bld) [Partial pressure] 141 mmHg High 85-95 [facility] Comment on above: Order Comment: Speci men Type: ARTERIAL BLOOD SPECIMENOrdering Facility: [facility] Address: [address] [place] [address] Performed By: #### A LLMG ####[facility] LABCLIA [id number] [place] [address] [place] Oxyhemoglobin (BldA) [Mass fraction] 95 % Normal 95-98 [facility] Comment on above: Order Comment: Speci men Type: ARTERIAL BLOOD SPECIMENOrdering Facility: [facility] Address: [address] Performed By: #### A LLMG ####[facility] LABCLIA [id number] [place] [address] [place] pH (Bld) 7.46 [pH] High 7.35-7.45 [facility] Comment on above: Order Comment: Speci men Type: ARTERIAL BLOOD SPECIMENOrdering Facility: [facility] Address: [address] [place], [place] [address] Performed By: #### A LLMG ####[facility] LABCLIA [id number] [place] [address] [place] pH adjusted to patient's actual temperature (Bld) 7.46 High 7.35-7.45 [facility] Comment on above: Order Comment: Speci men Type: ARTERIAL BLOOD SPECIMENOrdering Facility: [facility] Address: [address] Performed By: #### A LLMG ####[facility] LABCLIA [id number] [place] [address] [place] Potassium [Moles/Vol] 3.8 mmol/L Normal 3.5-5.0 [facility] Comment on above: Order Comment: Speci men Type: ARTERIAL BLOOD SPECIMENOrdering Facility: [facility] Address: [address] [place], [place] [address] Performed By: #### A LLMG ####[facility] LABCLIA [id number] [place] [address] [place] Sodium [Moles/Vol] 136 mmol/L Normal 136-144 [facility] [place] Comment on above: Order Comment: Speci men Type: ARTERIAL BLOOD SPECIMENOrdering Facility: [facility] Address: [address] [place] [address] Performed By: #### A LLMG ####[facility] LABCLIA [id number] [place] [address] [place] Amylase SerPl-cCncon 023 Amylase [Catalytic activity/Vol] 29 U/L Low 30-104 [facility] Comment on above: Order Comment: Speci men Type: BLOOD SPECIMENOrdering Facility: [facility] Address: [address] [place] [address] Performed By: #### H STNT, 58663-1, 87938-7, 2777-1, 1798-8 ####[facility] LABCLIA [id number] [place] [address] [place] BRIEF OP NOTon 04-04-2023 BRIEF OP NOT Normal [facility] CBC W Auto Differential pane l (Bld)on 04-04-2023 Basophils (Bld) [#/Vol] 0.05 10*3/uL Normal <0.11 [facility] Comment on above: Order Comment: Speci men Type: BLOOD SPECIMENOrdering Facility: [facility] Address: [address] Performed By: #### 5 7021-8 ####[facility] LABCLIA [id number] [address] [place] Basophils/100 WBC (Bld) 1.1 % Normal [facility] Comment on above: Order Comment: Speci men Type: BLOOD SPECIMENOrdering Facility: [facility] Address: [address] [place] [address] Performed By: #### 5 7021-8 ####[facility] LABCLIA [id number] [place] [address] [place] Differential cell count method Nom (Bld) Auto Normal [facility] Comment on above: Order Comment: Speci men Type: BLOOD SPECIMENOrdering Facility: [facility] [facility] Address: [address] [place] [address] Performed By: #### 5 7021-8 ####[facility] LABCLIA [id number] [place] [address] [place] Eosinophils (Bld) [#/Vol] 0.15 10*3/uL Normal <0.46 [facility] Comment on above: Order Comment: Speci men Type: BLOOD SPECIMENOrdering Facility: [facility] Address: [address] [place] [address] Performed By: #### 5 7021-8 ####[facility] LABCLIA [id number] [place] [address] [place] Eosinophils/100 WBC (Bld) 3.4 % Normal [facility] Comment on above: Order Comment: Speci men Type: BLOOD SPECIMENOrdering Facility: [facility] Address: [address] [place] [address] Performed By: #### 5 7021-8 ####[facility] LABCLIA [id number] [place] [address] [place] Erythrocyte distribution width (RBC) [Ratio] 13.2 % Normal 11.5-15.0 [facility] Comment on above: Order Comment: Speci men Type: BLOOD SPECIMENOrdering Facility: [facility] Address: [address] [place] [address] Performed By: #### 5 7021-8 ####[facility] LABCLIA [id number] [place] [address] [place] Hematocrit (Bld) [Volume fraction] 27.6 % Low 39.0-51.0 [facility] Comment on above: Order Comment: Speci men Type: BLOOD SPECIMENOrdering Facility: [facility] Address: [address] Performed By: #### 5 7021-8 ####[facility] LABCLIA [id number] [place] [address] [place] Hemoglobin (Bld) [Mass/Vol] 9.5 g/dL Low 13.0-17.0 [facility] Comment on above: Order Comment: Speci men Type: BLOOD SPECIMENOrdering Facility: [facility] Address: [address] Performed By: #### 5 7021-8 ####[facility] LABCLIA [id number] [place] [address] [place] Immature granulocytes (Bld) [#/Vol] 10*3/uL Normal <0.10 [facility] Comment on above: Order Comment: Speci men Type: BLOOD SPECIMENOrdering Facility: [facility] Address: [address] Performed By: #### 5 7021-8 ####[facility] LABCLIA [id number] [place] [address] [place] Immature granulocytes/100 WBC (Bld) 0.2 % Normal [facility] Comment on above: Order Comment: Speci men Type: BLOOD SPECIMENOrdering Facility: [facility] Address: [address] [place] [address] Performed By: #### 5 7021-8 ####[facility] LABCLIA [id number] [place] [address] [place] Lymphocytes (Bld) [#/Vol] 1.08 10*3/uL Normal 1.00-4.00 [facility] Comment on above: Order Comment: Speci men Type: BLOOD SPECIMENOrdering Facility: [facility] Address: [address] Performed By: #### 5 7021-8 ####[facility] LABIA [id number] [place] [address] [place] Lymphocytes/100 WBC (Bld) 24.8 % Normal [facility] Comment on above: Order Comment: Speci men Type: BLOOD SPECIMENOrdering Facility: [facility] Address: [address] [place] [address] Performed By: #### 5 7021-8 ####[facility] [id number] [place] [address] [place] MCH (RBC) [Entitic mass] 34.9 pg High 26.0-34.0 [facility] Comment on above: Order Comment: Speci men Type: BLOOD SPECIMENOrdering Facility: [facility] Address: [address] [place] [address] Performed By: #### 5 7021-8 ####[facility] [id number] [address] [place] MCHC (RBC) [Mass/Vol] 34.4 g/dL Normal 30.5-36.0 [facility] Comment on above: Order Comment: Speci men Type: BLOOD SPECIMENOrdering Facility: [facility] Address: [address] [place] [address] Performed By: #### 5 7021-8 ####[facility] [id number] [place] [address] [place] MCV (RBC) [Entitic vol] 101.5 fL High 80.0-100.0 [facility] Comment on above: Order Comment: Speci men Type: BLOOD SPECIMENOrdering Facility: [facility] Address: [address] [place] [address] Performed By: #### 5 7021-8 ####[facility] [id number] [place] [address] [place] Monocytes (Bld) [#/Vol] 0.45 10*3/uL Normal <0.87 [facility] Comment on above: Order Comment: Speci men Type: BLOOD SPECIMENOrdering Facility: [facility] Address: [address] Performed By: #### 5 7021-8 ####[facility] LABCLIA [id number] [place] [address] [place] Monocytes/100 WBC (Bld) 10.3 % Normal [facility] Comment on above: Order Comment: Speci men Type: BLOOD SPECIMENOrdering Facility: [facility] Address: [address] Performed By: #### 5 7021-8 ####[facility] LABCLIA [id number] [place] [address] [place] Neutrophils (Bld) [#/Vol] 2.61 10*3/uL Normal 1.45-7.50 [facility] Comment on above: Order Comment: Speci men Type: BLOOD SPECIMENOrdering Facility: [facility] Address: [address] [place], [place] [address] Performed By: #### 5 7021-8 ####[facility] LABCLIA [id number] [place] [address] [place] Neutrophils/100 WBC (Bld) 60.2 % Normal [facility] Comment on above: Order Comment: Speci men Type: BLOOD SPECIMENOrdering Facility: [facility] Address: [address] Performed By: #### 5 7021-8 ####[facility] LABCLIA [id number] [place] [address] [place] Nucleated RBC (Bld) [#/Vol] 10*3/uL Normal <0.01 [facility] Comment on above: Order Comment: Speci men Type: BLOOD SPECIMENOrdering Facility: [facility] Address: [address] Performed By: #### 5 7021-8 ####[facility] LABCLIA [id number] [place] [address] [place] Nucleated RBC/100 WBC (Bld) [Ratio] 0.0 /100 WBC Normal [facility] Comment on above: Order Comment: Speci men Type: BLOOD SPECIMENOrdering Facility: [facility] Address: [address] [place], [place] [address] Performed By: #### 5 7021-8 ####[facility] LABIA [id number] [place] [address] [place] Platelet mean volume (Bld) [Entitic vol] 10.4 fL Normal 9.0-12.7 [facility] Comment on above: Order Comment: Speci men Type: BLOOD SPECIMENOrdering Facility: [facility] Address: [address] [place], [place] [address] Performed By: #### 5 7021-8 ####[facility] LABIA [id number] [place] [address] [place] Platelets (Bld) [#/Vol] 64 10*3/uL Low 150-400 [facility] Comment on above: Order Comment: Speci men Type: BLOOD SPECIMENOrdering Facility: [facility] Address: [address] [place], [place] [address] Result Comment: Resu lts checked and verified.No clot detected. Performed By: #### 5 7021-8 ####[facility] LABCLIA [id number] [place] [address] [place] RBC (Bld) [#/Vol] 2.72 10*6/uL Low 4.20-6.00 [facility] Comment on above: Order Comment: Speci men Type: BLOOD SPECIMENOrdering Facility: [facility] Address: [address] [place], [place] [address] Performed By: #### 5 7021-8 ####[facility] LABCLIA [id number] [place] [address] [place] WBC (Bld) [#/Vol] 4.35 10*3/uL Normal 3.70-11.00 [facility] Comment on above: Order Comment: Speci men Type: BLOOD SPECIMENOrdering Facility: [facility] Address: [address] [place], [place] [address] Performed By: #### 5 7021-8 ####[facility] LABIA [id number] [place] [address] [place] CBC panel Auto (Bld)on 04-04 Erythrocyte distribution width (RBC) [Ratio] 14.6 % Normal 11.5-15.0 [facility] Comment on above: Order Comment: Speci men Type: BLOOD SPECIMENOrdering Facility: [facility] Address: [address] [place], [place] [address] Performed By: #### 5 8410-2 ####[facility] [id number] [place] [address] [place] Hematocrit (Bld) [Volume fraction] 27.4 % Low 39.0-51.0 [facility] Comment on above: Order Comment: Speci men Type: BLOOD SPECIMENOrdering Facility: [facility] Address: [address] [place], [place] [address] Performed By: #### 5 8410-2 ####[facility] LABIA [id number] [place] [address] [place] Hemoglobin (Bld) [Mass/Vol] 9.7 g/dL Low 13.0-17.0 [facility] Comment on above: Order Comment: Speci men Type: BLOOD SPECIMENOrdering Facility: [facility] Address: [address] [place], [place] [address] Performed By: #### 5 8410-2 ####[facility] LABIA [id number] [place] [address] MCH (RBC) [Entitic mass] 34.6 pg High 26.0-34.0 [facility] Comment on above: Order Comment: Speci men Type: BLOOD SPECIMENOrdering Facility: [facility] Address: [address] [place] [address] Performed By: #### 5 8410-2 ####[facility] LABCLIA [id number] [address] [place] [facility] MCHC (RBC) [Mass/Vol] 35.4 g/dL Normal 30.5-36.0 [facility] Comment on above: Order Comment: Speci men Type: BLOOD SPECIMENOrdering Facility: [facility] Address: [address] [place] [address] Performed By: #### 5 8410-2 ####[facility] LABCLIA [id number] [address] MCV (RBC) [Entitic vol] 97.9 fL Normal 80.0-100.0 [facility] Comment on above: Order Comment: Speci men Type: BLOOD SPECIMENOrdering Facility: [facility] Address: [address] [place] [address] Performed By: #### 5 8410-2 ####[facility] LABIA [id number] [address] [place] Nucleated RBC (Bld) [#/Vol] 10*3/uL Normal <0.01 [facility] Comment on above: Order Comment: Speci men Type: BLOOD SPECIMENOrdering Facility: [facility] Address: [address] [place], [place] [address] Performed By: #### 5 8410-2 ####[facility] LABCLIA [id number] [address] [place] Platelet mean volume (Bld) [Entitic vol] 10.1 fL Normal 9.0-12.7 [facility] Comment on above: Order Comment: Speci men Type: BLOOD SPECIMENOrdering Facility: [facility] Address: [address] [place] [address] Performed By: #### 5 8410-2 ####[facility] LABCLIA [id number] [place] [address] [place] Platelets (Bld) [#/Vol] 104 10*3/uL Low 150-400 [facility] Comment on above: Order Comment: Speci men Type: BLOOD SPECIMENOrdering Facility: [facility] Address: [address] [place] [address] Result Comment: Resu lts checked and verified.No clot detected. Performed By: #### 5 8410-2 ####[facility] LABIA [id number] [place] [address] [place] RBC (Bld) [#/Vol] 2.80 10*6/uL Low 4.20-6.00 [facility] Comment on above: Order Comment: Speci men Type: BLOOD SPECIMENOrdering Facility: [facility] Address: [address] [place] [address] Performed By: #### 5 8410-2 ####[facility] LABCLIA [id number] [place] [address] [place] WBC (Bld) [#/Vol] 13.90 10*3/uL High 3.70-11.00 [facility] Comment on above: Order Comment: Speci men Type: BLOOD SPECIMENOrdering Facility: [facility] Address: [address] [place] [address] Performed By: #### 5 8410-2 ####[facility] LABIA [id number] [place] [address] [place] CMV IgG Qnon 04-04-2023 CMV IGG QUAL Positive Abnormal Negative [facility] Comment on above: Order Comment: Speci men Type: BLOOD SPECIMENOrdering Facility: [facility] Address: [address] [place] [address] Result Comment: The result suggests recent or past infection with Cytomegalovirus (CMV). Positive result may also be seen due to presence of passively-transferred antibodies. Please correlate with patient's history. Performed By: #### 7 852-7 ####[facility] LABCLIA [id number] [place] [address] [place] CMV IgG SerPl-aCncon 023 CMV IgG Qn 2.70 U/mL Normal [facility] Comment on above: Order Comment: Speci men Type: BLOOD SPECIMENOrdering Facility: [facility] Address: [address] [place] [address] Result Comment: The magnitude of the measured result is not indicative of the amount of antibody present.U/mL values are interpreted as follows:Negative <0.6Equivocal 0.6 to <0.70Positive >=0.70 Performed By: #### 7 852-7 ####[facility] LABCLIA [id number] [place] [address] [place] CNPNon 04-04-2023 CNPN Normal [facility] Comprehensive metabolic 2000 panelon 04-04-2023 Albumin [Mass/Vol] 3.7 g/dL Low 3.9-4.9 [facility] Comment on above: Order Comment: Speci men Type: BLOOD SPECIMENOrdering Facility: [facility] Address: [address] [place] [address] Performed By: #### 2 4323-8, 97779-2 ####[facility] LABCLIA [id number] [place] [address] [place] ALP [Catalytic activity/Vol] 56 U/L Normal 38-113 [facility] Comment on above: Order Comment: Speci men Type: BLOOD SPECIMENOrdering Facility: [facility] Address: [address] [place] [address] Performed By: #### 2 4323-8, 16475-7 ####[facility] LABCLIA [id number] [place] [address] [place] ALT [Catalytic activity/Vol] 110 U/L High 10-54 [facility] Comment on above: Order Comment: Speci men Type: BLOOD SPECIMENOrdering Facility: [facility] Address: [address] [place] [address] Performed By: #### 2 4323-8, 78569-7 ####[facility] LABCLIA [id number] [place] [address] [place] Anion gap [Moles/Vol] 13 mmol/L Normal 9-18 [facility] Comment on above: Order Comment: Speci men Type: BLOOD SPECIMENOrdering Facility: [facility] Address: [address] [place] [address] Performed By: #### 2 4323-8, 63457-1 ####[facility] LABCLIA [id number] [place] [address] [place] AST [Catalytic activity/Vol] 308 U/L High 14-40 [facility] Comment on above: Order Comment: Speci men Type: BLOOD SPECIMENOrdering Facility: [facility] Address: [address] [place] [address] Performed By: #### 2 4323-8, 00965-4 ####[facility] LABCLIA [id number] [place] [address] [place] Bilirubin [Mass/Vol] 4.3 mg/dL High 0.2-1.3 [facility] Comment on above: Order Comment: Speci men Type: BLOOD SPECIMENOrdering Facility: [facility] Address: [address] [place], [place] [address] Performed By: #### 2 4323-8, 26823-7 ####[facility] LABCLIA [id number] [place] [address] [place] Calcium [Mass/Vol] 9.0 mg/dL Normal 8.5-10.2 [facility] Comment on above: Order Comment: Speci men Type: BLOOD SPECIMENOrdering Facility: [facility] Address: [address] [place] [address] Performed By: #### 2 4323-8, 29377-6 ####[facility] LABCLIA [id number] [place] [address] [place] Chloride [Moles/Vol] 102 mmol/L Normal 97-105 [facility] Comment on above: Order Comment: Speci men Type: BLOOD SPECIMENOrdering Facility: [facility] Address: [address] [place] [address] Performed By: #### 2 4323-8, 42377-7 ####[facility] LABCLIA [id number] [place] [address] [place] CO2 [Moles/Vol] 20 mmol/L Low 22-30 [facility] Comment on above: Order Comment: Speci men Type: BLOOD SPECIMENOrdering Facility: [facility] Address: [address] [place] [address] Performed By: #### 2 4323-8, 79391-0 ####[facility] LABCLIA [id number] [place] [address] [place] Creatinine [Mass/Vol] 0.98 mg/dL Normal 0.73-1.22 [facility] Comment on above: Order Comment: Speci men Type: BLOOD SPECIMENOrdering Facility: [facility] Address: [address] [place], [place] [address] Performed By: #### 2 4323-8, 90266-6 ####[facility] LABCLIA [id number] [address] [place] ESTIMATED GLOMERULAR FILTRATION RATE 99 mL/min/1.73m??? Normal >=60 [facility] Comment on above: Order Comment: Speci men Type: BLOOD SPECIMENOrdering Facility: [facility] Address: [facility] [place] [id number] Result Comment: Karma mated Glomerular Filtration Rate [...] actual GFR. Performed By: #### 2 4323-8, 23947-4 ####[facility] LABIA [id number] [place] [address] [place] Glucose [Mass/Vol] 166 mg/dL High 74-99 [facility] Comment on above: Order Comment: Specсергей kennedy Type: BLOOD SPECIMENOrdering Facility: [facility] Address: [address] [place] [address] Result Comment: The [place] [employer] (ADA) provides guidance for cutoff [...] Standards of Medical Care in Diabetes 2016, [place] [employer]. Diabetes Care. 2016.39(Suppl 1). Performed By: #### 2 4323-8, 51598-8 ####[facility] LABIA [id number] [place] [id number] [place] Potassium [Moles/Vol] 4.9 mmol/L Normal 3.7-5.1 [facility] Comment on above: Order Comment: Speci men Type: BLOOD SPECIMENOrdering Facility: [facility] Address: [address] [place] [id number] Performed By: #### 2 4323-8, 72296-5 ####[facility] LABCLIA [id number] [place] [address] [place] Protein [Mass/Vol] 5.5 g/dL Low 6.3-8.0 [facility] Comment on above: Order Comment: Speci men Type: BLOOD SPECIMENOrdering Facility: [facility] Address: [address] [place] [address] Performed By: #### 2 4323-8, 87515-5 ####[facility] LABCLIA [id number] [place] [address] [place] Sodium [Moles/Vol] 135 mmol/L Low 136-144 [facility] Comment on above: Order Comment: Speci men Type: BLOOD SPECIMENOrdering Facility: [facility] Address: [address] [place] [address] Performed By: #### 2 4323-8, 16706-8 ####[facility] LABCLIA [id number] [place] [address] [place] Urea nitrogen [Mass/Vol] 16 mg/dL Normal 9-24 [facility] Comment on above: Order Comment: Speci men Type: BLOOD SPECIMENOrdering Facility: [facility] Address: [address] [place] [address] Performed By: #### 2 4323-8, 46585-5 ####[facility] LABCLIA [id number] [place] [address] [place] Albumin [Mass/Vol] 4.2 g/dL Normal 3.9-4.9 [facility] Comment on above: Order Comment: Speci men Type: BLOOD SPECIMENOrdering Facility: [facility] Address: [address] [place] [address] Performed By: #### 2 4323-8 ####[facility] LABCLIA [id number] [place] [address] [place] ALP [Catalytic activity/Vol] 98 U/L Normal 38-113 [facility] Comment on above: Order Comment: Speci men Type: BLOOD SPECIMENOrdering Facility: [facility] Address: [address] Performed By: #### 2 4323-8 ####[facility] LABCLIA [id number] [place] [address] [place] ALT [Catalytic activity/Vol] 17 U/L Normal 10-54 [facility] Comment on above: Order Comment: Speci men Type: BLOOD SPECIMENOrdering Facility: [facility] Address: [address] [place], [place] [address] Performed By: #### 2 4323-8 ####[facility] LABCLIA [id number] [place] [address] [place] Anion gap [Moles/Vol] 10 mmol/L Normal 9-18 [facility] Comment on above: Order Comment: Speci men Type: BLOOD SPECIMENOrdering Facility: [facility] Address: [address] [place], [place] [address] Performed By: #### 2 4323-8 ####[facility] LABCLIA [id number] [address] [place] AST [Catalytic activity/Vol] 42 U/L High 14-40 [facility] Comment on above: Order Comment: Speci men Type: BLOOD SPECIMENOrdering Facility: [facility] Address: [address] Performed By: #### 2 4323-8 ####[facility] LABCLIA [id number] [place] [address] [place] Bilirubin [Mass/Vol] 3.2 mg/dL High 0.2-1.3 [facility] Comment on above: Order Comment: Speci men Type: BLOOD SPECIMENOrdering Facility: [facility] Address: [address] Performed By: #### 2 4323-8 ####[facility] LABCLIA [id number] [place] [address] [place] Calcium [Mass/Vol] 10.2 mg/dL Normal 8.5-10.2 [facility] Comment on above: Order Comment: Speci men Type: BLOOD SPECIMENOrdering Facility: [facility] Address: [address] Performed By: #### 2 4323-8 ####[facility] LABCLIA [id number] [place] [address] [place] Chloride [Moles/Vol] 99 mmol/L Normal 97-105 [facility] Comment on above: Order Comment: Speci men Type: BLOOD SPECIMENOrdering Facility: [facility] Address: [address] Performed By: #### 2 4323-8 ####[facility] LABCLIA [id number] [place] [address] [place] CO2 [Moles/Vol] 23 mmol/L Normal 22-30 [facility] Comment on above: Order Comment: Speci men Type: BLOOD SPECIMENOrdering Facility: [facility] Address: [address] Performed By: #### 2 4323-8 ####[facility] LABCLIA [id number] [place] [address] [place] Creatinine [Mass/Vol] 0.98 mg/dL Normal 0.73-1.22 [facility] Comment on above: Order Comment: Speci men Type: BLOOD SPECIMENOrdering Facility: [facility] Address: [address] Performed By: #### 2 4323-8 ####[facility] LABCLIA [id number] [place] [address] [place] ESTIMATED GLOMERULAR FILTRATION RATE 99 mL/min/1.73m??? Normal >=60 [facility] Comment on above: Order Comment: Rasta kennedy Type: BLOOD SPECIMENOrdering Facility: [facility] Address: [address] [place] [address] Result Comment: Karma mated Glomerular Filtration Rate [...] actual GFR. Performed By: #### 2 4323-8 ####[facility] LABIA [id number] [place] [address] [place] Glucose [Mass/Vol] 111 mg/dL High 74-99 [facility] Comment on above: Order Comment: Rasta kennedy Type: BLOOD SPECIMENOrdering Facility: [facility] Address: [address] [place] [address] Result Comment: The [place] [employer] (ADA) provides guidance for cutoff [...] Standards of Medical Care in Diabetes 2016, [place] [employer]. Diabetes Care. 2016.39(Suppl 1). Performed By: #### 2 4323-8 ####[facility] LABIA [id number] [place] [address] [place] Potassium [Moles/Vol] 4.5 mmol/L Normal 3.7-5.1 [facility] Comment on above: Order Comment: Rasta kennedy Type: BLOOD SPECIMENOrdering Facility: [facility] Address: [address] Performed By: #### 2 4323-8 ####[facility] LABCLIA [id number] [place] [address] [place] Protein [Mass/Vol] 7.1 g/dL Normal 6.3-8.0 [facility] [place] Comment on above: Order Comment: Speci men Type: BLOOD SPECIMENOrdering Facility: [facility] Address: [address] [address] Performed By: #### 2 4323-8 ####[facility] LABIA [id number] [place] [address] [place] Sodium [Moles/Vol] 132 mmol/L Low 136-144 [facility] [facility] [place] Comment on above: Order Comment: Speci men Type: BLOOD SPECIMENOrdering Facility: [facility] Address: [address] [place] [address] Performed By: #### 2 4323-8 ####[facility] LABIA [id number] [place] [address] [place] Urea nitrogen [Mass/Vol] 14 mg/dL Normal 9-24 [facility] Comment on above: Order Comment: Speci men Type: BLOOD SPECIMENOrdering Facility: [facility] Address: [address] [place], [place] [address] Performed By: #### 2 4323-8 ####[facility] LABIA [id number] [place] [address] [place] ECG COMPLETEon 04-04-2023 ECG COMPLETE Normal [facility] Fibrinogen PPP-mCncon 2022 Fibrinogen Coag (PPP) [Mass/Vol] 154 mg/dL Low 200-400 [facility] Comment on above: Order Comment: Speci men Type: BLOOD SPECIMENOrdering Facility: [facility] Address: [address] [place], [place] [address] Performed By: #### 3 255-7, 62941-8 ####[facility] LABIA [id number] [place] [address] [place] Fibrinogen Coag (PPP) [Mass/Vol] 131 mg/dL Low 200-400 [facility] Comment on above: Order Comment: Speci men Type: BLOOD SPECIMENOrdering Facility: [facility] Address: [address] [place] [address] Performed By: #### 3 255-7 ####[facility] LABIA [id number] [place] [address] [place] GLOBAL HEMOSTASISon 04-04-20 23 CITRATED FUNCTIONAL FIBRINOGEN LEVEL 228.1 mg/dL Low 278.0-581.0 [facility] Comment on above: Order Comment: Speci men Type: BLOOD SPECIMENOrdering Facility: [facility] Address: [address] [place] [address] Performed By: #### T EGGLBL ####[facility] LABIA [id number] [place] [address] [place] Clot angle TEG (Bld) [Angle] 59.6 degrees Low 63.0-78.0 [facility] Comment on above: Order Comment: Speci men Type: BLOOD SPECIMENOrdering Facility: [facility] Address: [address] [place], [place] [address] Performed By: #### T EGGLBL ####[facility] LABIA [id number] [address] [place] Clot formation TEG (Bld) [Time] 3.3 minutes High 0.8-2.1 [facility] Comment on above: Order Comment: Speci men Type: BLOOD SPECIMENOrdering Facility: [facility] Address: [address] [place] [address] Performed By: #### T EGGLBL ####[facility] LABIA [id number] [address] STATES OF [facility] Clotting time after addition of heparinase TEG (Bld) 6.2 minutes Normal 4.3-8.3 [facility] Comment on above: Order Comment: Speci men Type: BLOOD SPECIMENOrdering Facility: [facility] Address: [address] [place] [address] Performed By: #### T EGGLBL ####[facility] LABCLIA [id number] [address] OF [facility] Clotting time.extrinsic coagulation system activated Rotational TEG (Bld) 8.7 minutes Normal 4.6-9.1 [facility] Comment on above: Order Comment: Speci men Type: BLOOD SPECIMENOrdering Facility: [facility] Address: [address] [place] [address] Performed By: #### T EGGLBL ####[facility] LABCLIA [id number] [address] STATES OF [facility] Maximum clot firmness TEG (Bld) [Length] <40.0 Low 52.0-69.0 [facility] Comment on above: Order Comment: Speci men Type: BLOOD SPECIMENOrdering Facility: [facility] Address: [address] [place] [address] Performed By: #### T EGGLBL ####[facility] LABCLIA [id number] [address] Maximum clot firmness.extrinsic coagulation system activated.platelets inhibited Rotational TEG (Bld) [Length] <40.0 Low 52.0-70.0 [facility] Comment on above: Order Comment: Speci men Type: BLOOD SPECIMENOrdering Facility: [facility] Address: [address] [place] [address] Result Comment: 12.5 Performed By: #### T EGGLBL ####[facility] LABCLIA [id number] [place] [address] [place] THROMBOGRAPH INTERP Normal [facility] Comment on above: Order Comment: Rasta kennedy Type: BLOOD SPECIMENOrdering Facility: [facility] Address: [address] [place] [address] Result Comment: A th romboelastograph (TEG) study [...] or dysfunction. Performed By: #### T EGGLBL ####[facility] LABCLIA [id number] [address] STATES OF [facility] CITRATED FUNCTIONAL FIBRINOGEN LEVEL 242.7 mg/dL Low 278.0-581.0 [facility] Comment on above: Order Comment: Rasta kennedy Type: BLOOD SPECIMENOrdering Facility: [facility] Address: [address] [place] [address] Performed By: #### T EGGLBL ####[facility] LABCLIA [id number] [address] OF [facility] Clot angle TEG (Bld) [Angle] 68.7 degrees Normal 63.0-78.0 [facility] Comment on above: Order Comment: Rasta kennedy Type: BLOOD SPECIMENOrdering Facility: [facility] Address: [address] [place] [address] Performed By: #### T EGGLBL ####[facility] LABCLIA [id number] [address] [place] Clot formation TEG (Bld) [Time] 2.2 minutes High 0.8-2.1 [facility] Comment on above: Order Comment: Speci men Type: BLOOD SPECIMENOrdering Facility: [facility] Address: [address] [address] Performed By: #### T EGGLBL ####[facility] LABIA [id number] [address] Clotting time after addition of heparinase TEG (Bld) 5.5 minutes Normal 4.3-8.3 [facility] Comment on above: Order Comment: Speci men Type: BLOOD SPECIMENOrdering Facility: [facility] Address: [address] [place] [address] Performed By: #### T EGGLBL ####[facility] LABIA [id number] [address] Clotting time.extrinsic coagulation system activated Rotational TEG (Bld) 4.4 minutes Low 4.6-9.1 [facility] Comment on above: Order Comment: Speci men Type: BLOOD SPECIMENOrdering Facility: [facility] Address: [address] [place], [place] [address] Performed By: #### T EGGLBL ####[facility] [id number] [address] Maximum clot firmness TEG (Bld) [Length] <40.0 Low 52.0-69.0 [facility] Comment on above: Order Comment: Speci men Type: BLOOD SPECIMENOrdering Facility: [facility] Address: [address] Performed By: #### T EGGLBL ####[facility] LABIA [id number] [address] Maximum clot firmness.extrinsic coagulation system activated.platelets inhibited Rotational TEG (Bld) [Length] <40.0 Low 52.0-70.0 [facility] Comment on above: Order Comment: Speci men Type: BLOOD SPECIMENOrdering Facility: [facility] Address: [address] [place] [address] Result Comment: 13.3 Performed By: #### T EGGLBL ####[facility] [id number] [place] [address] [place] THROMBOGRAPH INTERP Normal [facility] Comment on above: Order Comment: Speci brent Type: BLOOD SPECIMENOrdering Facility: [facility] Address: [address] [place] [address] Result Comment: A th romboelastograph (TEG) study [...] or dysfunction. Performed By: #### T EGGLBL ####[facility] [id number] [place] [address] [place] HBV DNA Qn (S)on 04-04-2023 HBV DNA DEVYN+probe Qn Not detected Normal HBV DNA not detected by PCR [facility] Comment on above: Order Comment: Rasta brent Type: BLOOD SPECIMENOrdering Facility: [facility] Address: [address] [place] [address] Performed By: #### 1 1258-1 ####[facility] [id number] [place] [address] [place] HBV core Ab Ser Qlon 023 HBV core Ab Ql (S) Negative Normal Negative [facility] [place] Comment on above: Order Comment: Rasta brent Type: BLOOD SPECIMENOrdering Facility: [facility] Address: [address] [place] [address] Result Comment: No e vidence of current or past infection with Hepatitis B virus. Should recent infection be suspected, repeat testing may be considered 3-4 weeks after this draw. Performed By: #### 5 195-3, 26174-1, 19396-5, 30366-0 ####[facility] LABCLIA [id number] [address] [place] HBV surface Ab Ql (S)on 03-24 HBV surface Ab Qn (S) <8.00 Normal [facility] Comment on above: Order Comment: Speci men Type: BLOOD SPECIMENOrdering Facility: [facility] Address: [address] [place] [address] Result Comment: <8 m IU/mL: No serological evidence of immunity to Hepatitis B Virus.>/= 8 to <12 mIU/mL: No serological evidence of immunity to Hepatitis B Virus.>/= 12 mIU/mL: Consistent with serological evidence of immunity to Hepatitis B Virus. Performed By: #### 5 195-3, 70475-4, 03078-3, 15763-8 ####[facility] LABCLIA [id number] [address] OF [facility] HBV surface Ab Ser Qlon 03-24 HBV surface Ab Ql (S) Negative Normal [facility] Comment on above: Order Comment: Speci men Type: BLOOD SPECIMENOrdering Facility: [facility] Address: [address] [place] [address] Result Comment: No s erological evidence of immunity to Hepatitis B Virus. Performed By: #### 5 195-3, 50709-8, 45275-6, 75994-2 ####[facility] LABCLIA [id number] [address] [place] HBV surface Ag Ser Qlon 03-24 HBV surface Ag Ql (S) Negative Normal Negative [facility] Comment on above: Order Comment: Speci men Type: BLOOD SPECIMENOrdering Facility: [facility] Address: [address] [place], [place] [address] Performed By: #### 5 195-3, 97749-1, 41065-2, 67910-4 ####[facility] LABCLIA [id number] [address] [place] HCV Ab Ser Qlon 04-04-2023 HCV Ab Ql (S) Negative Normal Negative [facility] Comment on above: Order Comment: Rasta kennedy Type: BLOOD SPECIMENOrdering Facility: [facility] Address: [address] [place] [address] Result Comment: The result suggests no evidence of active infection with Hepatitis C virus. Should recent infection be suspected, repeat testing may be considered 4-6 weeks after this draw. Performed By: #### 1 6128-1 ####[facility] LABCLIA [id number] [place] [address] [place] HCV RNA SerPl DEVYN+probe-aCnc on 04-04-2023 HCV RNA DEVYN+probe Qn Not detected Normal HCV RNA not detected by PCR. [facility] Comment on above: Order Comment: Rasta kennedy Type: BLOOD SPECIMENOrdering Facility: [facility] Address: [address] [place] [address] Performed By: #### 1 1011-4 ####[facility] LABCLIA [id number] [place] [address] [place] HIGH SENSITIVITY TROPONIN To n 04-04-2023 HIGH SENSITIVITY AZRA 31 ng/L High <12 [facility] Comment on above: Order Comment: Rasta kennedy Type: BLOOD SPECIMENOrdering Facility: [facility] Address: [address] [place] [address] Result Comment: When assessing risk for acute [...] day MACE. Performed By: #### H STNT, 60975-0, 64859-6, 2777-1, 1798-8 ####[facility] LABCLIA [id number] [place] [address] [place] HISTORY PHYSICALon 3 HISTORY PHYSICAL Normal [facility] HISTORY PHYSICAL Normal [facility] HIV 1+2 Ab IA Qlon 3 HIV 1 and 2 Ab IA.rapid Nom Normal [facility] Comment on above: Order Comment: Speci men Type: BLOOD SPECIMENOrdering Facility: [facility] Address: [address] [place] [address] Result Comment: Test not indicated. Performed By: #### 5 195-3, 65467-2, 29685-2, 16259-2 ####[facility] LABCLIA [id number] [address] [place] HIV 1+2 Ab+HIV1 p24 Ag IA Ql Non-Reactive Normal Nonreactive [facility] Comment on above: Order Comment: Speci men Type: BLOOD SPECIMENOrdering Facility: [facility] Address: [address] [place] [address] Performed By: #### 5 195-3, 72309-2, 28559-4, 60876-4 ####[facility] LABCLIA [id number] [address] [place] HIVINT Normal [facility] Comment on above: Order Comment: Speci men Type: BLOOD SPECIMENOrdering Facility: [facility] Address: [address] [place] [address] Result Comment: No e vidence of HIV-1 or HIV-2 infection. Should recent infection be suspected, repeat testing may be considered 2-3 weeks after this draw.[place] Rev. Code 3701.243(E): This information has been [...] or diagnoses. Performed By: #### 5 195-3, 44218-6, 20222-4, 42326-3 ####[facility] LABCLIA [id number] [place] [address] [place] LIVER REC INIT W/Uon 023 ALLOGEN RESULTS TO FOLLOW See Allogen report to follow Normal [facility] Comment on above: Order Comment: Speci men Type: BLOOD SPECIMENOrdering Facility: [facility] Address: [address] [place] [address] Performed By: #### L RIPW ####[facility] [id number] [place] [address] [place] Magnesium [facility] 04-04 Magnesium [Mass/Vol] 2.3 mg/dL Normal 1.7-2.3 [facility] Comment on above: Order Comment: Speci men Type: BLOOD SPECIMENOrdering Facility: [facility] Address: [address] [place] [address] Performed By: #### H STNT, 17050-1, 47021-5, 2777-1, 179-8 ####[facility] LABCLIA [id number] [address] [place] NT-proBNP SerPl-ncon 04-04 Natriuretic peptide.B prohormone N-Terminal [Mass/Vol] 1309 pg/mL High <125 [facility] Comment on above: Order Comment: Speci men Type: BLOOD SPECIMENOrdering Facility: [facility] Address: [address] [place] [address] Performed By: #### H STNT, 54484-5, 73259-8, 2777-1, 1798-8 ####[facility] LABCLIA [id number] [address] STATES OF [facility] OPERATIVE NOon 04-04-2023 OPERATIVE NO Normal [facility] PT panel Coag (PPP)on 2022 INR Coag (PPP) [Relative time] 1.5 {INR} High 0.9-1.3 [facility] Comment on above: Order Comment: Rasta kennedy Type: BLOOD SPECIMENOrdering Facility: [facility] Address: [address] [place] [address] Result Comment: Binta min K Antagonist (VKA) Therapeutic Range: INR 2 to 3 (Target INR of 2.5)Note: For patients treated with VKA drugs, such as warfarin, the [employer] 2012 Guideline recommends [...] al. Chest 2012, 141:7S-47SNishimyumiko RA, et al. [facility] 2017, 70: 252-289 Performed By: #### 3 255-7, 35344-6 ####[facility] LABIA [id number] [place] [id number] [place] PT Coag (PPP) [Time] 15.5 s High 9.7-13.0 [facility] Comment on above: Order Comment: Rasta kennedy Type: BLOOD SPECIMENOrdering Facility: [facility] Address: [address] [place] [id number] Performed By: #### 3 255-7, 84128-4 ####[facility] LABIA [id number] [address] [place] INR Coag (PPP) [Relative time] 1.7 {INR} High 0.9-1.3 [facility] Comment on above: Order Comment: Rasta kennedy Type: BLOOD SPECIMENOrdering Facility: [facility] Address: [address] [place] [address] Result Comment: Binta min K Antagonist (VKA) Therapeutic Range: INR 2 to 3 (Target INR of 2.5)Note: For patients treated with VKA drugs, such as warfarin, the [employer] 2012 Guideline recommends [...] al. Chest 2012, 141:7S-47SSindhu RA, et al. [facility] 2017, 70: 252-289 Performed By: #### 3 4528-0 ####[facility] [id number] [place] [address] [place] PT Coag (PPP) [Time] 16.9 s High 9.7-13.0 [facility] Comment on above: Order Comment: Rasta kennedy Type: BLOOD SPECIMENOrdering Facility: [facility] Address: [address] [place] [address] Performed By: #### 3 4528-0 ####[facility] [id number] [place] [address] [place] INR Coag (PPP) [Relative time] 1.4 {INR} High 0.9-1.3 [facility] Comment on above: Order Comment: Rasta kennedy Type: BLOOD SPECIMENOrdering Facility: [facility] Address: [address] [place], [place] [address] Result Comment: Binta min K Antagonist (VKA) Therapeutic Range: INR 2 to 3 (Target INR of 2.5)Note: For patients treated with VKA drugs, such as warfarin, the [employer] 2012 Guideline recommends [...] al. Chest 2012, 141:7S-47SNishdino RA, et al. [facility] 2017, 70: 252-289 Performed By: #### 3 4528-0, 74949-6 ####[facility] [id number] [place] [address] [place] PT Coag (PPP) [Time] 14.1 s High 9.7-13.0 [facility] Comment on above: Order Comment: Speci men Type: BLOOD SPECIMENOrdering Facility: [facility] Address: [address] [place], [place] [address] Performed By: #### 3 4528-0, 44053-8 ####[facility] [id number] [place] [id number] [place] Phosphate SerPl-mCncon 04-04 Phosphate [Mass/Vol] 3.1 mg/dL Normal 2.7-4.8 [facility] Comment on above: Order Comment: Speci men Type: BLOOD SPECIMENOrdering Facility: [facility] Address: [address] [place] [address] Performed By: #### H STNT, 52027-9, 93560-8, 2777-1, 1798-8 ####[facility] LABCLIA [id number] [place] [address] [place] Platelets Auto (Bld) [#/Vol] on 04-04-2023 Platelets (Bld) [#/Vol] 88 10*3/uL Low 150-400 [facility] Comment on above: Order Comment: Speci men Type: BLOOD SPECIMENOrdering Facility: [facility] Address: [address] [place] [address] Result Comment: Resu lts checked and verified.No clot detected. Performed By: #### 7 77-3 ####[facility] LABIA [id number] [address] [place] Procalcitonin SerPl-mCncon 0 04-04-2023 Procalcitonin [Mass/Vol] 6.58 ng/mL High <0.09 [facility] Comment on above: Order Comment: Speci men Type: BLOOD SPECIMENOrdering Facility: [facility] Address: [address] [place] [address] Result Comment: For a guided interpretation of test results, please visit the Change in Procalcitonin Calculator, [email or web address]. Performed By: #### 2 4323-8, 99591-4 ####[facility] LABIA [id number] [place] [address] [place] SARS-CoV-2 RNA Resp Ql DEVYN+p robeon 04-04-2023 SARS-CoV-2 (COVID-19) RNA DEVYN+probe Ql (Resp) COVID 19 RESULT: Not detected The method used is RT-PCR or an equivalent NAAT method. Reference Range(the expected result in uninfected individuals): Not detected Normal [facility] Comment on above: Performed By: #### 9 4500-6 ####[facility] LABCLIA [id number] [place] [address] [place] STAPH AUREUS PCRon S. aureus and MRSA panel DEVYN+probe (Nose) Normal Negative [facility] Comment on above: Order Comment: Speci men Type: SWAB OF INTERNAL NOSEOrdering Facility: [facility] Address: [address] [place] [address] Result Comment: Nega tive for Staphylococcus aureus by PCR.Negative for MRSA by PCR Performed By: #### S APCR ####[facility] LABCLIA [id number] [address] OF [facility] SURGICAL PATHOLOGYon 023 CASE REPORT Normal [facility] Comment on above: Order Comment: Speci men Type: TISSUE SPECIMENOrdering Facility: [facility] Address: [address] [place] [address] Result Comment: Surg ical Pathology Report Case: [id number] Provider: Selma Decker MD Collected: 04/04/2023 12:59 PMOrdering Location: Admitting Received: 04/06/2023 08:50 AMPathologist: Kenny Donovan MD, PhDSpecimens: A) - LIVER RESECTION, [place] Liver B) - GALLBLADDER, Donor gallbladder C) - LIVER BIOPSY, Donor liver biopsy Performed By: #### S ####[facility] LABCLIA [id number] [place] [address] [place] CLINICAL HISTORY Normal [facility] Comment on above: Order Comment: Speci men Type: TISSUE SPECIMENOrdering Facility: [facility] Address: [address] [place] [address] Result Comment: Pre- op diagnosis:Alcoholic cirrhosis of liver (HCC) [K70.30] Performed By: #### S ####[facility] LABCLIA [id number] [address] [place] DIAGNOSIS COMMENT Normal [facility] Comment on above: Order Comment: Speci men Type: TISSUE SPECIMENOrdering Facility: [facility] Address: [address] [place] [address] Result Comment: Comm ent A: The hepatic parenchyma demonstrates established cirrhosis. The portal tracts and fibrous septa contain ycmk-hu-lheqqdpm lymphocyte-predominant inflammatory infiltrate and minimal interface activity. Foci of bile ductular reaction are present, but the [place] bile ducts are intact. There is no [...] or inflammation. The portal areas contain intact [place] bile ducts and vasculature, and ejauuy-mm-agnihik lymphocytic inflammation. Neutrophilic inflammation in the portal [...] Please correlate clinically Performed By: #### S ####[facility] LABCLIA [id number] [address] [place] FINAL DIAGNOSIS Normal [facility] Comment on above: Order Comment: Speci men Type: TISSUE SPECIMENOrdering Facility: [facility] Address: [address] [place] [address] Result Comment: A. N ative liver and gallbladder, total hepatectomy and cholecystectomy:- Cirrhosis. See comment A- Mild chronic cholecystitis with cholelithiasis.B. Donor gallbladder, cholecystectomy:- Acute hemorrhagic cholecystitis with mucosal reactive changes.C. Donor liver, wedge biopsy:- Subcapsular hepatic parenchyma with mild ischemia/reperfusion injury. See comment C Performed By: #### S ####[facility] LABCLIA [id number] [address] FINAL PERFORMING LAB [facility] Comment on above: Order Comment: Speci men Type: TISSUE SPECIMENOrdering Facility: [facility] Address: [address] [place] [address] Result Comment: Diag nostic interpretation performed at [facility], [address] [address] CLIA# [id number] Director: Milind Yang M.D. Performed By: #### S ####[facility] LABCLIA [id number] [address] GROSS DESCRIPTION Normal [facility] Comment on above: Order Comment: Speci men Type: TISSUE SPECIMENOrdering Facility: [facility] Address: [address] [place] [address] Result Comment: Josee Castro IVAZALEA RESECTIONReceived in formalin, labeled [place] liver is an entire liver with attached [...] gallbladder wall measures 0.2 cm in thickness. Rag Boiler sections are submitted as follows:A1 hepatic duct, artery, and portal vein margins shavedA2-A3 hepatic vein margins, shavedA4-A6 claims service representative liver to include central, peripheral and subcapsular areasA7 claims service representative liverA8 claims service representative gallbladder to include cystic ductB. GALLBLADDERReceived [...] The cystic duct margin (en face) and claims service representative sections of the gallbladder wall are submitted in B1.C. LIVER BIOPSYReceived in formalin, labeled donor liver biopsy is a 0.8 x 0.5 x 0.3 cm wedge of butts, rubbery liver parenchyma. Sectioning reveals unremarkable cut surfaces. The specimen is submitted entirely in C1.KSZ April 06, 2023 11:38 AMGross examination performed at [facility], [address] [place] [address] Performed By: #### S ####[facility] LABCLIA [id number] [place] [address] [place] TRANSPLANT CONFIRM ABO/RHon 04-04-2023 ABO A Normal [facility] Comment on above: Order Comment: Speci men Type: BLOOD SPECIMENOrdering Facility: [facility] Address: [address] [address] Performed By: #### T RCABO ####[facility] BLOOD BANKIA [id number] [place] [address] [place] Rh Nom (Bld) Positive Normal [facility] Comment on above: Order Comment: Speci men Type: BLOOD SPECIMENOrdering Facility: [facility] Address: [address] [address] Performed By: #### T RCABO ####[facility] BLOOD BANKIA [id number] [place] [address] [place] TYPE + SCREENon 04-04-2023 ABO A Normal [facility] Comment on above: Order Comment: Speci men Type: BLOOD SPECIMENOrdering Facility: [facility] Address: [address] [place] [address] Performed By: #### T SCR ####CC [facility] BLOOD BANKCLIA [id number] [place] [address] [place] HISTORICAL AB SCR STATUS Negative Normal [facility] Comment on above: Order Comment: Speci men Type: BLOOD SPECIMENOrdering Facility: [facility] Address: [address] [place] [address] Performed By: #### T SCR ####CC [facility] BLOOD BANKCLIA [id number] [address] [place] Rh Nom (Bld) Positive Normal [facility] Comment on above: Order Comment: Speci men Type: BLOOD SPECIMENOrdering Facility: [facility] Address: [address] [place] [address] Performed By: #### T SCR ####CC [facility] BLOOD BANKCLIA [id number] [place] [address] [place] TYPE AND SCREEN EXPIRATION 04/07/2023 23:59 Normal [facility] Comment on above: Order Comment: Speci men Type: BLOOD SPECIMENOrdering Facility: [facility] Address: [address] [place] [address] Performed By: #### T SCR ####CC [facility] BLOOD BANKCLIA [id number] [place] [address] [place] US ABD LIVER VASCULARon 03-24 US ABD LIVER VASCULAR Normal [facility] US DOPPLER COMPLETEon 2022 US DOPPLER COMPLETE Normal [facility] XR CHEST 1V FRONTAL PORTon 0 04-04-2023 XR CHEST 1V FRONTAL PORT Normal [facility] XR CHEST 1V FRONTAL PORT Normal [facility] XR CHEST 1V FRONTAL PORT Normal [facility] aPTT PPPon 04-04-2023 aPTT Coag (PPP) [Time] 72.3 s High 23.0-32.4 [facility] Comment on above: Order Comment: Speci men Type: BLOOD SPECIMENOrdering Facility: [facility] Address: [address] [place] [address] Performed By: #### 1 4979-9 ####[facility] LABCLIA [id number] [place] [address] [place] aPTT Coag (PPP) [Time] 31.9 s Normal 23.0-32.4 [facility] Comment on above: Order Comment: Speci men Type: BLOOD SPECIMENOrdering Facility: [facility] Address: [address] [place] [address] Performed By: #### 3 4528-0, 65571-9 ####[facility] LABCLIA [id number] [place] [address] [place] Basic metabolic 2000 panelon 04-03-2023 Anion gap [Moles/Vol] 9 mmol/L Normal 9-18 [facility] Comment on above: Order Comment: Speci men Type: BLOOD SPECIMENOrdering Facility: [facility] Address: [address] [place] [address] Performed By: #### 2 4321-2 ####[facility] LABCLIA [id number] [place] [address] [place] Calcium [Mass/Vol] 9.6 mg/dL Normal 8.5-10.2 [facility] [place] Comment on above: Order Comment: Speci men Type: BLOOD SPECIMENOrdering Facility: [facility] Address: [address] [place], [place] [address] Performed By: #### 2 4321-2 ####[facility] LABCLIA [id number] [place] [address] [place] Chloride [Moles/Vol] 102 mmol/L Normal 97-105 [facility] Comment on above: Order Comment: Speci men Type: BLOOD SPECIMENOrdering Facility: [facility] Address: [address] [address] Performed By: #### 2 4321-2 ####[facility] LABCLIA [id number] [place] [address] [place] CO2 [Moles/Vol] 24 mmol/L Normal 22-30 [facility] Comment on above: Order Comment: Speci men Type: BLOOD SPECIMENOrdering Facility: [facility] Address: [address] [address] Performed By: #### 2 4321-2 ####[facility] LABIA [id number] [address] STATES OF [facility] Creatinine [Mass/Vol] 1.04 mg/dL Normal 0.73-1.22 [facility] Comment on above: Order Comment: Speci men Type: BLOOD SPECIMENOrdering Facility: [facility] Address: [address] [address] Performed By: #### 2 4321-2 ####[facility] LABIA [id number] [address] ESTIMATED GLOMERULAR FILTRATION RATE 93 mL/min/1.73m??? Normal >=60 [facility] Comment on above: Order Comment: Speci men Type: BLOOD SPECIMENOrdering Facility: [facility] Address: [address] [address] Result Comment: Karma mated Glomerular Filtration Rate [...] actual GFR. Performed By: #### 2 4321-2 ####[facility] LABCLIA [id number] [place] [address] [place] Glucose [Mass/Vol] 106 mg/dL High 74-99 [facility] [place] Comment on above: Order Comment: Speci men Type: BLOOD SPECIMENOrdering Facility: [facility] Address: [address] [address] Result Comment: The [employer] (ADA) provides guidance for cutoff [...] Standards of Medical Care in Diabetes 2016, [place] [employer]. Diabetes Care. 2016.39(Suppl 1). Performed By: #### 2 4321-2 ####[facility] [id number] [place] [address] [place] Potassium [Moles/Vol] 4.8 mmol/L Normal 3.7-5.1 [facility] Comment on above: Order Comment: Speci men Type: BLOOD SPECIMENOrdering Facility: [facility] Address: [address] [address] Performed By: #### 2 4321-2 ####[facility] LABIA [id number] [place] [address] [place] Sodium [Moles/Vol] 135 mmol/L Low 136-144 [facility] [place] Comment on above: Order Comment: Speci men Type: BLOOD SPECIMENOrdering Facility: [facility] Address: [address] [address] Performed By: #### 2 4321-2 ####[facility] [id number] [place] [address] [place] Urea nitrogen [Mass/Vol] 18 mg/dL Normal 9-24 [facility] Comment on above: Order Comment: Speci men Type: BLOOD SPECIMENOrdering Facility: [facility] Address: [address] [place] [address] Performed By: #### 2 4321-2 ####[facility] LABCLIA [id number] [place] [address] [place] CBC panel Auto (Bld)on 04-03 Erythrocyte distribution width (RBC) [Ratio] 13.3 % Normal 11.5-15.0 [facility] Comment on above: Order Comment: Speci men Type: BLOOD SPECIMENOrdering Facility: [facility] Address: [address] [place] [address] Performed By: #### 5 8410-2 ####[facility] LABCLIA [id number] [address] [place] Hematocrit (Bld) [Volume fraction] 28.3 % Low 39.0-51.0 [facility] Comment on above: Order Comment: Speci men Type: BLOOD SPECIMENOrdering Facility: [facility] Address: [address] [place] [address] Performed By: #### 5 8410-2 ####[facility] LABCLIA [id number] [place] [address] [place] Hemoglobin (Bld) [Mass/Vol] 9.6 g/dL Low 13.0-17.0 [facility] Comment on above: Order Comment: Speci men Type: BLOOD SPECIMENOrdering Facility: [facility] Address: [address] [place] [address] Performed By: #### 5 8410-2 ####[facility] LABCLIA [id number] [place] [address] [place] MCH (RBC) [Entitic mass] 35.0 pg High 26.0-34.0 [facility] Comment on above: Order Comment: Speci men Type: BLOOD SPECIMENOrdering Facility: [facility] Address: [address] Performed By: #### 5 8410-2 ####[facility] LABIA [id number] [place] [address] [place] MCHC (RBC) [Mass/Vol] 33.9 g/dL Normal 30.5-36.0 [facility] Comment on above: Order Comment: Speci men Type: BLOOD SPECIMENOrdering Facility: [facility] Address: [address] Performed By: #### 5 8410-2 ####[facility] LABIA [id number] [place] [address] [place] MCV (RBC) [Entitic vol] 103.3 fL High 80.0-100.0 [facility] Comment on above: Order Comment: Speci men Type: BLOOD SPECIMENOrdering Facility: [facility] Address: [address] Performed By: #### 5 8410-2 ####[facility] LABIA [id number] [place] [address] [place] Nucleated RBC (Bld) [#/Vol] 10*3/uL Normal <0.01 [facility] Comment on above: Order Comment: Speci men Type: BLOOD SPECIMENOrdering Facility: [facility] Address: [address] Performed By: #### 5 8410-2 ####[facility] LABIA [id number] [place] [address] [place] Platelet mean volume (Bld) [Entitic vol] 10.2 fL Normal 9.0-12.7 [facility] Comment on above: Order Comment: Speci men Type: BLOOD SPECIMENOrdering Facility: [facility] Address: [address] Performed By: #### 5 8410-2 ####[facility] LABCLIA [id number] [place] [address] [place] Platelets (Bld) [#/Vol] 67 10*3/uL Low 150-400 [facility] Comment on above: Order Comment: Speci men Type: BLOOD SPECIMENOrdering Facility: [facility] Address: [address] [place] [address] Result Comment: Resu lts checked and verified.No clot detected. Performed By: #### 5 8410-2 ####[facility] LABIA [id number] [place] [address] [place] RBC (Bld) [#/Vol] 2.74 10*6/uL Low 4.20-6.00 [facility] Comment on above: Order Comment: Speci men Type: BLOOD SPECIMENOrdering Facility: [facility] Address: [address] [place] [address] Performed By: #### 5 8410-2 ####[facility] LABIA [id number] [place] [address] [place] WBC (Bld) [#/Vol] 5.07 10*3/uL Normal 3.70-11.00 [facility] Comment on above: Order Comment: Speci men Type: BLOOD SPECIMENOrdering Facility: [facility] Address: [address] [place] [address] Performed By: #### 5 8410-2 ####[facility] LABIA [id number] [place] [address] [place] CNCOon 04-03-2023 CNCO Letter Text Normal [facility] CNDSon 04-03-2023 CNDS Normal [facility] Comprehensive metabolic 2000 panelon 04-03-2023 Albumin [Mass/Vol] 3.9 g/dL Normal 3.9-4.9 [facility] [place] Comment on above: Order Comment: Speci men Type: BLOOD SPECIMENOrdering Facility: [facility] Address: [address] [place] [address] Performed By: #### 2 4323-8 ####[facility] LABCLIA [id number] [place] [address] [place] ALP [Catalytic activity/Vol] 91 U/L Normal 38-113 [facility] Comment on above: Order Comment: Speci men Type: BLOOD SPECIMENOrdering Facility: [facility] Address: [address] [address] Performed By: #### 2 4323-8 ####[facility] LABCLIA [id number] [place] [address] [place] ALT [Catalytic activity/Vol] 16 U/L Normal 10-54 [facility] Comment on above: Order Comment: Speci men Type: BLOOD SPECIMENOrdering Facility: [facility] Address: [address] [place], [place] [address] Performed By: #### 2 4323-8 ####[facility] LABCLIA [id number] [place] [address] [place] Anion gap [Moles/Vol] 11 mmol/L Normal 9-18 [facility] Comment on above: Order Comment: Speci men Type: BLOOD SPECIMENOrdering Facility: [facility] Address: [address] [place], [place] [address] Performed By: #### 2 4323-8 ####[facility] LABCLIA [id number] [place] [address] [place] AST [Catalytic activity/Vol] 37 U/L Normal 14-40 [facility] Comment on above: Order Comment: Speci men Type: BLOOD SPECIMENOrdering Facility: [facility] Address: [address] [place], [place] [address] Performed By: #### 2 4323-8 ####[facility] LABCLIA [id number] [place] [address] [place] Bilirubin [Mass/Vol] 3.5 mg/dL High 0.2-1.3 [facility] Comment on above: Order Comment: Speci men Type: BLOOD SPECIMENOrdering Facility: [facility] Address: [address] [place] [address] Performed By: #### 2 4323-8 ####[facility] LABCLIA [id number] [place] [address] [place] Calcium [Mass/Vol] 9.5 mg/dL Normal 8.5-10.2 [facility] [place] Comment on above: Order Comment: Speci men Type: BLOOD SPECIMENOrdering Facility: [facility] Address: [address] [place] [address] Performed By: #### 2 4323-8 ####[facility] LABCLIA [id number] [place] [address] [place] Chloride [Moles/Vol] 103 mmol/L Normal 97-105 [facility] Comment on above: Order Comment: Speci men Type: BLOOD SPECIMENOrdering Facility: [facility] Address: [address] [place], [place] [address] Performed By: #### 2 4323-8 ####[facility] LABCLIA [id number] [place] [address] [place] CO2 [Moles/Vol] 21 mmol/L Low 22-30 [facility] Comment on above: Order Comment: Speci men Type: BLOOD SPECIMENOrdering Facility: [facility] Address: [address] [place], [place] [address] Performed By: #### 2 4323-8 ####[facility] LABCLIA [id number] [place] [address] [place] Creatinine [Mass/Vol] 1.04 mg/dL Normal 0.73-1.22 [facility] Comment on above: Order Comment: Speci men Type: BLOOD SPECIMENOrdering Facility: [facility] Address: [address] [address] Performed By: #### 2 4323-8 ####[facility] LABIA [id number] [address] ESTIMATED GLOMERULAR FILTRATION RATE 93 mL/min/1.73m??? Normal >=60 [facility] Comment on above: Order Comment: Rasta kennedy Type: BLOOD SPECIMENOrdering Facility: [facility] Address: [address] [place] [address] Result Comment: Karma mated Glomerular Filtration Rate [...] actual GFR. Performed By: #### 2 4323-8 ####[facility] LABCLIA [id number] [place] [address] [place] Glucose [Mass/Vol] 94 mg/dL Normal 74-99 [facility] [place] Comment on above: Order Comment: Rasta kennedy Type: BLOOD SPECIMENOrdering Facility: [facility] Address: [address] [place] [address] Result Comment: The [place] Diabetes [employer] (ADA) provides guidance for cutoff [...] Standards of Medical Care in Diabetes 2016, [place] [employer]. Diabetes Care. 2016.39(Suppl 1). Performed By: #### 2 4323-8 ####[facility] LABCLIA [id number] [place] [address] [place] Potassium [Moles/Vol] 4.5 mmol/L Normal 3.7-5.1 [facility] Comment on above: Order Comment: Speci men Type: BLOOD SPECIMENOrdering Facility: [facility] Address: [address] [place] [address] Performed By: #### 2 4323-8 ####[facility] LABIA [id number] [place] [address] [place] Protein [Mass/Vol] 6.6 g/dL Normal 6.3-8.0 [facility] [place] Comment on above: Order Comment: Speci men Type: BLOOD SPECIMENOrdering Facility: [facility] Address: [address] [place] [address] Performed By: #### 2 4323-8 ####[facility] LABIA [id number] [place] [address] [place] Sodium [Moles/Vol] 135 mmol/L Low 136-144 [facility] [place] Comment on above: Order Comment: Speci men Type: BLOOD SPECIMENOrdering Facility: [facility] Address: [address] [place] [address] Performed By: #### 2 4323-8 ####[facility] LABIA [id number] [place] [address] [place] Urea nitrogen [Mass/Vol] 17 mg/dL Normal 9-24 [facility] Comment on above: Order Comment: Speci men Type: BLOOD SPECIMENOrdering Facility: [facility] Address: [address] [place] [address] Performed By: #### 2 4323-8 ####[facility] LABIA [id number] [place] [address] [place] PT panel Coag (PPP)on 2022 INR Coag (PPP) [Relative time] 1.4 {INR} High 0.9-1.3 [facility] Comment on above: Order Comment: Rasta kennedy Type: BLOOD SPECIMENOrdering Facility: [facility] Address: [address] [id number] Result Comment: Binta min K Antagonist (VKA) Therapeutic Range: INR 2 to 3 (Target INR of 2.5)Note: For patients treated with VKA drugs, such as warfarin, the [employer] 2012 Guideline recommends [...] al. Chest 2012, 141:7S-47SNishimyumiko RA, et al. [facility] 2017, 70: 252-289 Performed By: #### 3 4528-0 ####[facility] [id number] [place] [address] [place] PT Coag (PPP) [Time] 14.2 s High 9.7-13.0 [facility] Comment on above: Order Comment: Rasta kennedy Type: BLOOD SPECIMENOrdering Facility: [facility] Address: [place] [address] Performed By: #### 3 4528-0 ####[facility] [id number] [place] [address] [place] Basic metabolic 2000 panelon 04-02-2023 Anion gap [Moles/Vol] 10 mmol/L Normal 9-18 [facility] Comment on above: Order Comment: Rasta kennedy Type: BLOOD SPECIMENOrdering Facility: [facility] Address: [address] [id number] Performed By: #### 2 4320-09, 2531-0 ####[facility] LABCLIA [id number] [place] [address] [place] Calcium [Mass/Vol] 9.9 mg/dL Normal 8.5-10.2 [facility] Comment on above: Order Comment: Speci men Type: BLOOD SPECIMENOrdering Facility: [facility] Address: [address] [place] [address] Performed By: #### 2 4320-09, 2531-0 ####[facility] LABCLIA [id number] [place] [address] [place] Chloride [Moles/Vol] 100 mmol/L Normal 97-105 [facility] Comment on above: Order Comment: Speci men Type: BLOOD SPECIMENOrdering Facility: [facility] Address: [address] Performed By: #### 2 4320-09, 2531-0 ####[facility] LABCLIA [id number] [place] [address] [place] CO2 [Moles/Vol] 23 mmol/L Normal 22-30 [facility] Comment on above: Order Comment: Speci men Type: BLOOD SPECIMENOrdering Facility: [facility] Address: [address] [place] Performed By: #### 2 4320-09, 2531-0 ####[facility] LABCLIA [id number] [place] [address] [place] Creatinine [Mass/Vol] 1.10 mg/dL Normal 0.73-1.22 [facility] Comment on above: Order Comment: Speci men Type: BLOOD SPECIMENOrdering Facility: [facility] Address: [address] Performed By: #### 2 4320-09, 2531-0 ####[facility] LABCLIA [id number] [place] [address] [place] ESTIMATED GLOMERULAR FILTRATION RATE 86 mL/min/1.73m??? Normal >=60 [facility] Comment on above: Order Comment: Yuryсергей kennedy Type: BLOOD SPECIMENOrdering Facility: [facility] Address: [address] [address] Result Comment: Karma mated Glomerular Filtration Rate [...] actual GFR. Performed By: #### 2 4321-2, 253-0 ####[facility] [id number] [place] [address] [place] Glucose [Mass/Vol] 90 mg/dL Normal 74-99 [facility] Comment on above: Order Comment: Rasta kennedy Type: BLOOD SPECIMENOrdering Facility: [facility] Address: [address] [place] [address] Result Comment: The [place] Diabetes [employer] (ADA) provides guidance for cutoff [...] Standards of Medical Care in Diabetes 2016, [place] [employer]. Diabetes Care. 2016.39(Suppl 1). Performed By: #### 2 4321-2, 2532-0 ####[facility] [id number] [place] [address] [place] Potassium [Moles/Vol] 5.3 mmol/L High 3.7-5.1 [facility] Comment on above: Order Comment: Speci men Type: BLOOD SPECIMENOrdering Facility: [facility] Address: [address] [id number] Performed By: #### 2 4321-2, 2531-0 ####[facility] LABCLIA [id number] [place] [address] [place] Sodium [Moles/Vol] 133 mmol/L Low 136-144 [facility] Comment on above: Order Comment: Speci men Type: BLOOD SPECIMENOrdering Facility: [facility] Address: [address] [place], [place] [address] Performed By: #### 2 432-2, 2531-0 ####[facility] LABCLIA [id number] [place] [address] [place] Urea nitrogen [Mass/Vol] 20 mg/dL Normal 9-24 [facility] Comment on above: Order Comment: Speci men Type: BLOOD SPECIMENOrdering Facility: [facility] Address: [address] [place], [place] [address] Performed By: #### 2 4322, 0 ####[facility] LABCLIA [id number] [place] [address] [place] CASE MGT INIT ASSESon 2022 CASE MGT INIT ASSES Normal [facility] CBC panel Auto (Bld)on 04-02 Erythrocyte distribution width (RBC) [Ratio] 13.3 % Normal 11.5-15.0 [facility] Comment on above: Order Comment: Speci men Type: BLOOD SPECIMENOrdering Facility: [facility] Address: [address] [place], [place] [address] Performed By: #### 5 8410-2 ####[facility] LABCLIA [id number] [place] [address] [place] Hematocrit (Bld) [Volume fraction] 30.4 % Low 39.0-51.0 [facility] Comment on above: Order Comment: Speci men Type: BLOOD SPECIMENOrdering Facility: [facility] Address: [address] [place] [address] Performed By: #### 5 8410-2 ####[facility] LABIA [id number] [place] [address] [place] Hemoglobin (Bld) [Mass/Vol] 10.3 g/dL Low 13.0-17.0 [facility] Comment on above: Order Comment: Speci men Type: BLOOD SPECIMENOrdering Facility: [facility] Address: [address] [place] [address] Performed By: #### 5 8410-2 ####[facility] LABIA [id number] [place] [address] [place] MCH (RBC) [Entitic mass] 34.8 pg High 26.0-34.0 [facility] Comment on above: Order Comment: Speci men Type: BLOOD SPECIMENOrdering Facility: [facility] Address: [address] [place] [address] Performed By: #### 5 8410-2 ####[facility] LABIA [id number] [place] [address] [place] MCHC (RBC) [Mass/Vol] 33.9 g/dL Normal 30.5-36.0 [facility] Comment on above: Order Comment: Speci men Type: BLOOD SPECIMENOrdering Facility: [facility] Address: [address] [place], [place] [address] Performed By: #### 5 8410-2 ####[facility] LABIA [id number] [place] [address] [place] MCV (RBC) [Entitic vol] 102.7 fL High 80.0-100.0 [facility] Comment on above: Order Comment: Speci men Type: BLOOD SPECIMENOrdering Facility: [facility] Address: [address] Performed By: #### 5 8410-2 ####[facility] LABIA [id number] [place] [address] [place] Nucleated RBC (Bld) [#/Vol] 10*3/uL Normal <0.01 [facility] Comment on above: Order Comment: Speci men Type: BLOOD SPECIMENOrdering Facility: [facility] Address: [address] [address] Performed By: #### 5 8410-2 ####[facility] [id number] [place] [address] [place] Platelet mean volume (Bld) [Entitic vol] 9.5 fL Normal 9.0-12.7 [facility] Comment on above: Order Comment: Speci men Type: BLOOD SPECIMENOrdering Facility: [facility] Address: [address] [place] [address] Performed By: #### 5 8410-2 ####[facility] [id number] [place] [address] [place] Platelets (Bld) [#/Vol] 91 10*3/uL Low 150-400 [facility] Comment on above: Order Comment: Speci men Type: BLOOD SPECIMENOrdering Facility: [facility] Address: [address] [place], [place] [address] Result Comment: Resu lts checked and verified.No clot detected. Performed By: #### 5 8410-2 ####[facility] [id number] [place] [address] [place] RBC (Bld) [#/Vol] 2.96 10*6/uL Low 4.20-6.00 [facility] Comment on above: Order Comment: Speci men Type: BLOOD SPECIMENOrdering Facility: [facility] Address: [address] [place], [place] [address] Performed By: #### 5 8410-2 ####[facility] LABCLIA [id number] [place] [address] [place] WBC (Bld) [#/Vol] 7.06 10*3/uL Normal 3.70-11.00 [facility] Comment on above: Order Comment: Speci men Type: BLOOD SPECIMENOrdering Facility: [facility] Address: [address] [place], [place] [address] Performed By: #### 5 8410-2 ####[facility] LABIA [id number] [address] [place] Erythrocyte distribution width (RBC) [Ratio] 13.4 % Normal 11.5-15.0 [facility] Comment on above: Order Comment: Speci men Type: BLOOD SPECIMENOrdering Facility: [facility] Address: [address] [place], [place] [address] Performed By: #### 5 8410-2 ####[facility] LABIA [id number] [place] [address] [place] Hematocrit (Bld) [Volume fraction] 27.5 % Low 39.0-51.0 [facility] Comment on above: Order Comment: Speci men Type: BLOOD SPECIMENOrdering Facility: [facility] Address: [address] [place], [place] [address] Performed By: #### 5 8410-2 ####[facility] LABCLIA [id number] [place] [address] [place] Hemoglobin (Bld) [Mass/Vol] 9.1 g/dL Low 13.0-17.0 [facility] Comment on above: Order Comment: Speci men Type: BLOOD SPECIMENOrdering Facility: [facility] Address: [address] [place], [place] [address] Performed By: #### 5 8410-2 ####[facility] LABCLIA [id number] [address] [place] [facility] MCH (RBC) [Entitic mass] 34.7 pg High 26.0-34.0 [facility] Comment on above: Order Comment: Speci men Type: BLOOD SPECIMENOrdering Facility: [facility] Address: [address] [place] [address] Performed By: #### 5 8410-2 ####[facility] LABIA [id number] [address] [place] [facility] MCHC (RBC) [Mass/Vol] 33.1 g/dL Normal 30.5-36.0 [facility] Comment on above: Order Comment: Speci men Type: BLOOD SPECIMENOrdering Facility: [facility] Address: [address] [place] [address] Performed By: #### 5 8410-2 ####[facility] LABCLIA [id number] [address] [place] MCV (RBC) [Entitic vol] 105.0 fL High 80.0-100.0 [facility] Comment on above: Order Comment: Speci men Type: BLOOD SPECIMENOrdering Facility: [facility] Address: [address] [place] [address] Performed By: #### 5 8410-2 ####[facility] LABIA [id number] [place] [address] [place] Nucleated RBC (Bld) [#/Vol] 10*3/uL Normal <0.01 [facility] Comment on above: Order Comment: Speci men Type: BLOOD SPECIMENOrdering Facility: [facility] Address: [address] [place], [place] [address] Performed By: #### 5 8410-2 ####[facility] LABCLIA [id number] [address] [place] Platelet mean volume (Bld) [Entitic vol] 10.3 fL Normal 9.0-12.7 [facility] Comment on above: Order Comment: Speci men Type: BLOOD SPECIMENOrdering Facility: [facility] Address: [address] [place] [address] Performed By: #### 5 8410-2 ####[facility] LABCLIA [id number] [place] [address] [place] Platelets (Bld) [#/Vol] 57 10*3/uL Low 150-400 [facility] Comment on above: Order Comment: Speci men Type: BLOOD SPECIMENOrdering Facility: [facility] Address: [address] [place] [address] Result Comment: No c lot detected. Performed By: #### 5 8410-2 ####[facility] LABCLIA [id number] [place] [address] [place] RBC (Bld) [#/Vol] 2.62 10*6/uL Low 4.20-6.00 [facility] Comment on above: Order Comment: Speci men Type: BLOOD SPECIMENOrdering Facility: [facility] Address: [address] [place] [address] Performed By: #### 5 8410-2 ####[facility] LABCLIA [id number] [place] [address] [place] WBC (Bld) [#/Vol] 4.53 10*3/uL Normal 3.70-11.00 [facility] Comment on above: Order Comment: Speci men Type: BLOOD SPECIMENOrdering Facility: [facility] Address: [address] [place] [address] Performed By: #### 5 8410-2 ####[facility] LABCLIA [id number] [place] [address] [place] Comprehensive metabolic 2000 panelon 04-02-2023 Albumin [Mass/Vol] 3.6 g/dL Low 3.9-4.9 [facility] Comment on above: Order Comment: Speci men Type: BLOOD SPECIMENOrdering Facility: [facility] Address: [address] Performed By: #### 4 542-7, 65952-7 ####[facility] LABCLIA [id number] [place] [address] [place] ALP [Catalytic activity/Vol] 82 U/L Normal 38-113 [facility] Comment on above: Order Comment: Speci men Type: BLOOD SPECIMENOrdering Facility: [facility] Address: [address] Performed By: #### 4 542-7, 81773-7 ####[facility] LABCLIA [id number] [address] [place] ALT [Catalytic activity/Vol] 14 U/L Normal 10-54 [facility] Comment on above: Order Comment: Speci men Type: BLOOD SPECIMENOrdering Facility: [facility] Address: [address] Performed By: #### 4 542-7, 21415-9 ####[facility] LABIA [id number] [place] [address] [place] Anion gap [Moles/Vol] 11 mmol/L Normal 9-18 [facility] Comment on above: Order Comment: Speci men Type: BLOOD SPECIMENOrdering Facility: [facility] Address: [address] [place] [address] Performed By: #### 4 542-7, 17755-8 ####[facility] LABIA [id number] [place] [address] [place] AST [Catalytic activity/Vol] 35 U/L Normal 14-40 [facility] Comment on above: Order Comment: Speci men Type: BLOOD SPECIMENOrdering Facility: [facility] Address: [address] Performed By: #### 4 542-7, 04804-5 ####[facility] LABCLIA [id number] [place] [address] [place] Bilirubin [Mass/Vol] 2.7 mg/dL High 0.2-1.3 [facility] Comment on above: Order Comment: Speci men Type: BLOOD SPECIMENOrdering Facility: [facility] Address: [address] [place], [place] [address] Performed By: #### 4 542-7, ####[facility] LABCLIA [id number] [place] [address] [place] Calcium [Mass/Vol] 9.3 mg/dL Normal 8.5-10.2 [facility] [place] Comment on above: Order Comment: Speci men Type: BLOOD SPECIMENOrdering Facility: [facility] Address: [address] [place] [address] Performed By: #### 4 542-7, ####[facility] LABCLIA [id number] [place] [address] [place] Chloride [Moles/Vol] 105 mmol/L Normal 97-105 [facility] Comment on above: Order Comment: Speci men Type: BLOOD SPECIMENOrdering Facility: [facility] Address: [address] [place], [place] [address] Performed By: #### 4 542-7, ####[facility] LABCLIA [id number] [place] [address] [place] CO2 [Moles/Vol] 20 mmol/L Low 22-30 [facility] Comment on above: Order Comment: Speci men Type: BLOOD SPECIMENOrdering Facility: [facility] Address: [address] Performed By: #### 4 542-7, 61905-6 ####[facility] LABCLIA [id number] [place] [address] [place] Creatinine [Mass/Vol] 1.17 mg/dL Normal 0.73-1.22 [facility] Comment on above: Order Comment: Rasta kennedy Type: BLOOD SPECIMENOrdering Facility: [facility] Address: [address] [place] [place] [address] Performed By: #### 4 542-7, 56182-3 ####[facility] LABCLIA [id number] [address] ESTIMATED GLOMERULAR FILTRATION RATE 80 mL/min/1.73m??? Normal >=60 [facility] Comment on above: Order Comment: Rasta kennedy Type: BLOOD SPECIMENOrdering Facility: [facility] Address: [address] [place] [address] Result Comment: Karma mated Glomerular Filtration Rate [...] actual GFR. Performed By: #### 4 542-7, 67788-8 ####[facility] LABCLIA [id number] [address] STATES OF [facility] Glucose [Mass/Vol] 86 mg/dL Normal 74-99 [facility] [place] Comment on above: Order Comment: Rasta kennedy Type: BLOOD SPECIMENOrdering Facility: [facility] Address: [address] [place], [place] [address] Result Comment: The [employer] (ADA) provides guidance for cutoff [...] Standards of Medical Care in Diabetes 2016, [employer]. Diabetes Care. 2016.39(Suppl 1). Performed By: #### 4 542-7, 58554-6 ####[facility] LABCLIA [id number] [place] [address] [place] Potassium [Moles/Vol] 5.6 mmol/L High 3.7-5.1 [facility] Comment on above: Order Comment: Speci men Type: BLOOD SPECIMENOrdering Facility: [facility] Address: [address] [place] [address] Performed By: #### 4 542-7, 99723-9 ####[facility] LABCLIA [id number] [place] [address] [place] Protein [Mass/Vol] 6.0 g/dL Low 6.3-8.0 [facility] Comment on above: Order Comment: Speci men Type: BLOOD SPECIMENOrdering Facility: [facility] Address: [address] Performed By: #### 4 542-7, 65881-9 ####[facility] LABIA [id number] [place] [address] [place] Sodium [Moles/Vol] 136 mmol/L Normal 136-144 [facility] Comment on above: Order Comment: Speci men Type: BLOOD SPECIMENOrdering Facility: [facility] Address: [address] Performed By: #### 4 542-7, 03192-4 ####[facility] LABCLIA [id number] [place] [address] [place] Urea nitrogen [Mass/Vol] 24 mg/dL Normal 9-24 [facility] Comment on above: Order Comment: Speci men Type: BLOOD SPECIMENOrdering Facility: [facility] Address: [address] Performed By: #### 4 542-7, 86771-0 ####[facility] LABCLIA [id number] [place] [address] [place] Haptoglob SerPl-mCncon 04-02 Haptoglobin [Mass/Vol] mg/dL Low 31-238 [facility] Comment on above: Order Comment: Rasta kennedy Type: BLOOD SPECIMENOrdering Facility: [facility] Address: [address] [place] [address] Performed By: #### 4 542-7, 57224-5 ####[facility] LABCLIA [id number] [place] [address] [place] LDH SerPl-cCncon 04-02-2023 LDH [Catalytic activity/Vol] 196 U/L Normal 135-225 [facility] Comment on above: Order Comment: Rasta kennedy Type: BLOOD SPECIMENOrdering Facility: [facility] Address: [address] [place] [address] Performed By: #### 2 4321-2, 2532-0 ####[facility] LABIA [id number] [address] [place] PT panel Coag (PPP)on 2022 INR Coag (PPP) [Relative time] 1.4 {INR} High 0.9-1.3 [facility] Comment on above: Order Comment: Rasta kennedy Type: BLOOD SPECIMENOrdering Facility: [facility] Address: [address] [place] [address] Result Comment: Binta min K Antagonist (VKA) Therapeutic Range: INR 2 to 3 (Target INR of 2.5)Note: For patients treated with VKA drugs, such as warfarin, the [employer] 2012 Guideline recommends [...] al. Chest 2012, 141:7S-47SSindhu RA, et al. [facility] 2017, 70: 252-289 Performed By: #### 3 4528-0 ####[facility] LABIA [id number] [place] [address] [place] PT Coag (PPP) [Time] 14.1 s High 9.7-13.0 [facility] Comment on above: Order Comment: Speci men Type: BLOOD SPECIMENOrdering Facility: [facility] Address: [address] [place] [address] Performed By: #### 3 4528-0 ####[facility] [id number] [place] [address] [place] THERAPY NTon 04-02-2023 THERAPY NT Normal [facility] THERAPY NT Normal [facility] Urinalysis complete panel (U )on 04-02-2023 Bilirubin Ql (U) Negative Normal Negative [facility] Comment on above: Order Comment: Speci men Type: URINE SPECIMENOrdering Facility: [facility] Address: [address] [place] [address] Performed By: #### 2 4356-8 ####[facility] [id number] [address] [place] Clarity (Unsp spec) Clear Normal Clear [facility] Comment on above: Order Comment: Speci men Type: URINE SPECIMENOrdering Facility: [facility] Address: [address] [place] [address] Performed By: #### 2 4356-8 ####[facility] LABIA [id number] [address] [place] Color (U) Yellow Normal Yellow [facility] Comment on above: Order Comment: Speci men Type: URINE SPECIMENOrdering Facility: [facility] Address: [address] [place] [address] Performed By: #### 2 4356-8 ####[facility] LABCLIA [id number] [place] [address] [place] Epithelial cells LM.HPF (Urine sed) [#/Area] Few Normal [facility] Comment on above: Order Comment: Speci men Type: URINE SPECIMENOrdering Facility: [facility] Address: [address] [place] [address] Performed By: #### 2 4356-8 ####[facility] LABCLIA [id number] [place] [address] [place] Glucose Test strip (U) [Mass/Vol] Negative Normal Trace, Negative [facility] Comment on above: Order Comment: Speci men Type: URINE SPECIMENOrdering Facility: [facility] Address: [address] [place] [address] Performed By: #### 2 4356-8 ####[facility] LABCLIA [id number] [place] [address] [place] Hemoglobin Ql (U) Negative Normal Negative, Trace [facility] Comment on above: Order Comment: Speci men Type: URINE SPECIMENOrdering Facility: [facility] Address: [address] [place], [place] [address] Performed By: #### 2 4356-8 ####[facility] LABCLIA [id number] [place] [address] [place] Hyaline casts (Urine sed) [#/Area] 1-3 /LPF Abnormal 0 /LPF [facility] Comment on above: Order Comment: Speci men Type: URINE SPECIMENOrdering Facility: [facility] Address: [address] [place], [place] [address] Performed By: #### 2 4356-8 ####[facility] LABCLIA [id number] [place] [address] [place] Ketones Ql (U) Negative Normal Trace, Negative [facility] Comment on above: Order Comment: Speci men Type: URINE SPECIMENOrdering Facility: [facility] Address: [address] [place] [address] Performed By: #### 2 4356-8 ####[facility] LABCLIA [id number] [place] [address] [place] Leukocyte esterase Test strip Ql (U) Negative Normal Negative, 25 Ovidio/uL [facility] Comment on above: Order Comment: Speci men Type: URINE SPECIMENOrdering Facility: [facility] Address: [address] [place] [address] Performed By: #### 2 4356-8 ####[facility] LABCLIA [id number] [place] [address] [place] Nitrite Ql (U) Negative Normal Negative [facility] Comment on above: Order Comment: Speci men Type: URINE SPECIMENOrdering Facility: [facility] Address: [address] [place] [address] Performed By: #### 2 4356-8 ####[facility] LABCLIA [id number] [place] [address] [place] pH (U) 6.0 [pH] Normal 5.0-8.0 [facility] Comment on above: Order Comment: Speci men Type: URINE SPECIMENOrdering Facility: [facility] Address: [address] [place], [place] [address] Performed By: #### 2 4356-8 ####[facility] LABCLIA [id number] [place] [address] [place] Protein (U) [Mass/Vol] Trace Normal Trace, Negative [facility] Comment on above: Order Comment: Speci men Type: URINE SPECIMENOrdering Facility: [facility] Address: [address] [place] [address] Performed By: #### 2 4356-8 ####[facility] LABIA [id number] [place] [address] [place] RBC LM.HPF (Urine sed) [#/Area] 0-3 /HPF Normal 0-3 /HPF [facility] Comment on above: Order Comment: Speci men Type: URINE SPECIMENOrdering Facility: [facility] Address: [address] [place] [address] Performed By: #### 2 4356-8 ####[facility] LABIA [id number] [place] [address] [place] Specific gravity (U) [Rel density] 1.022 Normal 1.005-1.030 [facility] Comment on above: Order Comment: Speci men Type: URINE SPECIMENOrdering Facility: [facility] Address: [address] [place] [address] Performed By: #### 2 4356-8 ####[facility] LABIA [id number] [place] [address] [place] [facility] Urobilinogen Ql (U) Negative Normal Negative [facility] Comment on above: Order Comment: Speci men Type: URINE SPECIMENOrdering Facility: [facility] Address: [address] [place], [place] [address] Performed By: #### 2 4356-8 ####[facility] LABIA [id number] [place] [address] [place] WBC LM.HPF (Urine sed) [#/Area] 0-5 /HPF Normal 0-5 /HPF [facility] Comment on above: Order Comment: Speci men Type: URINE SPECIMENOrdering Facility: [facility] Address: [address] [place], [place] [address] Performed By: #### 2 4356-8 ####[facility] LABCLIA [id number] [place] [address] [place] CBC panel Auto (Bld)on 04-01 Erythrocyte distribution width (RBC) [Ratio] 13.5 % Normal 11.5-15.0 [facility] Comment on above: Order Comment: Speci men Type: BLOOD SPECIMENOrdering Facility: [facility] Address: [address] [place] [address] Performed By: #### 5 8410-2 ####[facility] [id number] [place] [address] [place] Hematocrit (Bld) [Volume fraction] 30.2 % Low 39.0-51.0 [facility] Comment on above: Order Comment: Speci men Type: BLOOD SPECIMENOrdering Facility: [facility] Address: [address] [place] [address] Performed By: #### 5 8410-2 ####[facility] [id number] [address] [place] Hemoglobin (Bld) [Mass/Vol] 10.5 g/dL Low 13.0-17.0 [facility] Comment on above: Order Comment: Speci men Type: BLOOD SPECIMENOrdering Facility: [facility] Address: [address] [place] [address] Performed By: #### 5 8410-2 ####[facility] [id number] [place] [address] [place] MCH (RBC) [Entitic mass] 35.5 pg High 26.0-34.0 [facility] Comment on above: Order Comment: Speci men Type: BLOOD SPECIMENOrdering Facility: [facility] Address: [address] [place] [address] Performed By: #### 5 8410-2 ####[facility] [id number] [place] [address] [place] MCHC (RBC) [Mass/Vol] 34.8 g/dL Normal 30.5-36.0 [facility] Comment on above: Order Comment: Speci men Type: BLOOD SPECIMENOrdering Facility: [facility] Address: [address] [place] [address] Performed By: #### 5 8410-2 ####[facility] LABCLIA [id number] [address] [place] MCV (RBC) [Entitic vol] 102.0 fL High 80.0-100.0 [facility] Comment on above: Order Comment: Speci men Type: BLOOD SPECIMENOrdering Facility: [facility] Address: [address] [place], [place] [address] Performed By: #### 5 8410-2 ####[facility] LABIA [id number] [address] [place] Nucleated RBC (Bld) [#/Vol] 10*3/uL Normal <0.01 [facility] Comment on above: Order Comment: Speci men Type: BLOOD SPECIMENOrdering Facility: [facility] Address: [address] [place], [place] [address] Performed By: #### 5 8410-2 ####[facility] LABIA [id number] [address] [place] Platelet mean volume (Bld) [Entitic vol] 9.9 fL Normal 9.0-12.7 [facility] Comment on above: Order Comment: Speci men Type: BLOOD SPECIMENOrdering Facility: [facility] Address: [address] [place], [place] [address] Performed By: #### 5 8410-2 ####[facility] LABCLIA [id number] [place] [address] [place] Platelets (Bld) [#/Vol] 75 10*3/uL Low 150-400 [facility] Comment on above: Order Comment: Speci men Type: BLOOD SPECIMENOrdering Facility: [facility] Address: [address] [place], [place] [address] Result Comment: No c lot detected. Performed By: #### 5 8410-2 ####[facility] LABCLIA [id number] [place] [address] [place] RBC (Bld) [#/Vol] 2.96 10*6/uL Low 4.20-6.00 [facility] Comment on above: Order Comment: Speci men Type: BLOOD SPECIMENOrdering Facility: [facility] Address: [address] [place], [place] [address] Performed By: #### 5 8410-2 ####[facility] LABCLIA [id number] [place] [address] [place] WBC (Bld) [#/Vol] 5.72 10*3/uL Normal 3.70-11.00 [facility] Comment on above: Order Comment: Speci men Type: BLOOD SPECIMENOrdering Facility: [facility] Address: [address] [place] [address] Performed By: #### 5 8410-2 ####[facility] LABCLIA [id number] [place] [address] [place] CNCOon 04-01-2023 CNCO Letter Text Normal [facility] Comprehensive metabolic 2000 panelon 04-01-2023 Albumin [Mass/Vol] 3.7 g/dL Low 3.9-4.9 [facility] Comment on above: Order Comment: Speci men Type: BLOOD SPECIMENOrdering Facility: [facility] Address: [address] [place], [place] [address] Performed By: #### 2 4323-8 ####[facility] LABCLIA [id number] [place] [address] [place] ALP [Catalytic activity/Vol] 99 U/L Normal 38-113 [facility] Comment on above: Order Comment: Speci men Type: BLOOD SPECIMENOrdering Facility: [facility] Address: [address] [address] Performed By: #### 2 4323-8 ####[facility] LABCLIA [id number] [address] [place] ALT [Catalytic activity/Vol] 17 U/L Normal 10-54 [facility] Comment on above: Order Comment: Speci men Type: BLOOD SPECIMENOrdering Facility: [facility] Address: [address] [address] Performed By: #### 2 4323-8 ####[facility] LABCLIA [id number] [place] [address] [place] Anion gap [Moles/Vol] 8 mmol/L Low 9-18 [facility] Comment on above: Order Comment: Speci men Type: BLOOD SPECIMENOrdering Facility: [facility] Address: [address] [address] Performed By: #### 2 4323-8 ####[facility] LABCLIA [id number] [address] [place] AST [Catalytic activity/Vol] 42 U/L High 14-40 [facility] Comment on above: Order Comment: Speci men Type: BLOOD SPECIMENOrdering Facility: [facility] Address: [address] [address] Performed By: #### 2 4323-8 ####[facility] LABCLIA [id number] [place] [address] [place] Bilirubin [Mass/Vol] 2.4 mg/dL High 0.2-1.3 [facility] Comment on above: Order Comment: Speci men Type: BLOOD SPECIMENOrdering Facility: [facility] Address: [address] [address] Performed By: #### 2 4323-8 ####[facility] LABCLIA [id number] [place] [address] [place] Calcium [Mass/Vol] 9.8 mg/dL Normal 8.5-10.2 [facility] [place] Comment on above: Order Comment: Speci men Type: BLOOD SPECIMENOrdering Facility: [facility] Address: [address] [place] [address] Performed By: #### 2 4323-8 ####[facility] LABCLIA [id number] [place] [address] [place] Chloride [Moles/Vol] 102 mmol/L Normal 97-105 [facility] Comment on above: Order Comment: Speci men Type: BLOOD SPECIMENOrdering Facility: [facility] Address: [address] [place] [address] Performed By: #### 2 4323-8 ####[facility] LABCLIA [id number] [place] [address] [place] CO2 [Moles/Vol] 25 mmol/L Normal 22-30 [facility] Comment on above: Order Comment: Speci men Type: BLOOD SPECIMENOrdering Facility: [facility] Address: [address] [place] [address] Performed By: #### 2 4323-8 ####[facility] LABCLIA [id number] [place] [address] [place] Creatinine [Mass/Vol] 1.76 mg/dL High 0.73-1.22 [facility] Comment on above: Order Comment: Speci men Type: BLOOD SPECIMENOrdering Facility: [facility] Address: [address] [place], [place] [address] Performed By: #### 2 4323-8 ####[facility] LABCLIA [id number] [place] [address] [place] ESTIMATED GLOMERULAR FILTRATION RATE 49 mL/min/1.73m??? Low >=60 [facility] Comment on above: Order Comment: Speci men Type: BLOOD SPECIMENOrdering Facility: [facility] Address: [address] [address] Result Comment: Karma mated Glomerular Filtration Rate [...] actual GFR. Performed By: #### 2 4323-8 ####[facility] LABIA [id number] [place] [address] [place] Glucose [Mass/Vol] 116 mg/dL High 74-99 [facility] [place] Comment on above: Order Comment: Rasta kennedy Type: BLOOD SPECIMENOrdering Facility: [facility] Address: [address] [address] Result Comment: The [place] Diabetes [employer] (ADA) provides guidance for cutoff [...] Standards of Medical Care in Diabetes 2016, [place] [employer]. Diabetes Care. 2016.39(Suppl 1). Performed By: #### 2 4323-8 ####[facility] LABIA [id number] [place] [address] [place] Potassium [Moles/Vol] 5.4 mmol/L High 3.7-5.1 [facility] Comment on above: Order Comment: Rasta kennedy Type: BLOOD SPECIMENOrdering Facility: [facility] Address: [address] [address] Performed By: #### 2 4323-8 ####[facility] LABCLIA [id number] [place] [address] [place] Protein [Mass/Vol] 7.1 g/dL Normal 6.3-8.0 [facility] [place] Comment on above: Order Comment: Speci men Type: BLOOD SPECIMENOrdering Facility: [facility] Address: [address] [place] [address] Performed By: #### 2 4323-8 ####[facility] LABCLIA [id number] [place] [address] [place] Sodium [Moles/Vol] 135 mmol/L Low 136-144 [facility] [place] Comment on above: Order Comment: Speci men Type: BLOOD SPECIMENOrdering Facility: [facility] Address: [address] [place] [address] Performed By: #### 2 4323-8 ####[facility] LABCLIA [id number] [place] [address] [place] Urea nitrogen [Mass/Vol] 29 mg/dL High 9-24 [facility] Comment on above: Order Comment: Speci men Type: BLOOD SPECIMENOrdering Facility: [facility] Address: [address] [place] [address] Performed By: #### 2 4323-8 ####[facility] LABCLIA [id number] [place] [address] [place] Creatinine Unsp time (U) [Ma ss/Vol]on 04-01-2023 Creatinine (U) [Mass/Vol] 75.3 mg/dL Normal 20.0-300.0 [facility] Comment on above: Order Comment: Speci men Type: URINE SPECIMENOrdering Facility: [facility] Address: [address] [place] [address] Performed By: #### 3 5678-2, 29083-1 ####[facility] LABCLIA [id number] [address] [place] ECG COMPLETEon 04-01-2023 ECG COMPLETE Normal [facility] HISTORY PHYSICALon 3 HISTORY PHYSICAL Normal [facility] NURSING PROGon 04-01-2023 NURSING PROG Normal [facility] Osmolality SerPlon 3 Osmolality [Osmolality] 292 mosm/kg Normal 275-300 [facility] Comment on above: Order Comment: Speci men Type: BLOOD SPECIMENOrdering Facility: [facility] Address: [address] [place] [address] Performed By: #### 2 692-2 ####[facility] LABCLIA [id number] [place] [address] [place] Osmolality Uron 04-01-2023 Osmolality (U) [Osmolality] 471 mosm/kg Normal 50-1200 [facility] Comment on above: Order Comment: Speci men Type: URINE SPECIMENOrdering Facility: [facility] Address: [address] [place] [address] Performed By: #### 2 695-5 ####[facility] LABCLIA [id number] [place] [address] [place] Sodium ?Tm Ur-sCncon 023 Sodium Unsp time (U) [Moles/Vol] 108 mmol/L Normal 14-216 [facility] Comment on above: Order Comment: Speci men Type: URINE SPECIMENOrdering Facility: [facility] Address: [address] [place] [address] Performed By: #### 3 5678-2, 49384-1 ####[facility] LABCLIA [id number] [place] [address] [place] US KIDNEY/BLADDERon 04-01-20 23 US KIDNEY/BLADDER Normal [facility] CNCOon 03-31-2023 [facility] Clinical report post ed in error Void Comment: Liver Txp Listing Letter Letter Text Normal [facility] CNPNon 03-31-2023 CNPN [facility] 03-30-2023 Creatinine [Mass/Vol] 2.2 mg/dL High 0.5-1.3 [facility] Comment on above: Performed By: #### 2 675506, 9691544, 78188127, 7853983, 1668301 ####[facility] [address] [place] [address] Urea nitrogen [Mass/Vol] 35 mg/dL High 5-21 [facility] Comment on above: Performed By: #### 2 751013, 2289401, 95846688, 7446815, 4416310 ####[facility] [address] AveNlawrence+[place] [address] Urea nitrogen/Creatinine [Mass ratio] 16 No Units Normal 10-20 [facility] Comment on above: Performed By: #### 2 587525, 0039318, 07323294, 6105739, 6312206 ####[facility] [address] [place] [address] Anion gap [Moles/Vol] 14 mmol/L Normal 6-16 [facility] Comment on above: Performed By: #### 2 139219, 2509720, 36819543, 0680599, 0809202 ####[facility] Lxtfaozce[address] [place] [address] Calcium [Mass/Vol] 9.7 mg/dL Normal 8.9-11.1 [facility] Comment on above: Performed By: #### 2 226706, 9868709, 58573671, 0114496, 7608621 ####[facility] Farjbswm[address] [place] [address] Chloride [Moles/Vol] 100 mmol/L Low 101-111 [facility] Comment on above: Performed By: #### 2 319883, 6480295, 60911859, 0280656, 0456304 ####[facility] Ugttfdtb[address] [place] [address] CO2 [Moles/Vol] 25 mmol/L Normal 21-31 [facility] Comment on above: Performed By: #### 2 669127, 6297214, 44327803, 2603374, 7307814 ####[facility] [address] [place] [address] Glucose [Mass/Vol] 142 mg/dL Normal 55-199 [facility] Comment on above: Result Comment: If t his glucose result represents a fasting glucose, interpretation should refer to the following reference range: 55-99 mg/dL Performed By: #### 2 565074, 4364262, 94151964, 6834096, 9061171 ####[facility] [address] [place] [address] Potassium [Moles/Vol] 5.2 mmol/L Normal 3.5-5.3 [facility] Comment on above: Performed By: #### 2 887870, 2625253, 26718248, 3551704, 5653542 ####[facility] [address] [place] [address] Sodium [Moles/Vol] 134 mmol/L Low 135-145 [facility] Comment on above: Performed By: #### 2 106789, 3117494, 64396774, 6870026, 2040676 ####[facility] [address] [place] [address] CBC w/Indiceson 03-30-2023 Erythrocyte distribution width (RBC) [Ratio] 14.4 % High 10.9-14.2 [facility] Comment on above: Performed By: #### 2 036967, 0251254, 09447828, 3297932, 2257005 ####[facility] [address] [place] [address] Hematocrit (Bld) [Volume fraction] 31.0 % Low 37.7-49.0 [facility] Comment on above: Performed By: #### 2 551905, 8340242, 98718478, 8486727, 6759553 ####[facility] [address] [place] [address] Hemoglobin (Bld) [Mass/Vol] 10.8 g/dL Low 13.5-17.5 [facility] Comment on above: Performed By: #### 2 776244, 0977079, 82836141, 3342462, 6447683 ####[facility] [address] [place] [address] MCH (RBC) [Entitic mass] 35.1 pg High 27.0-34.0 [facility] Comment on above: Performed By: #### 2 879561, 4257750, 18562313, 6340526, 8338071 ####[facility] [address] [place] [address] MCHC (RBC) [Mass/Vol] 34.7 g/dL Normal 31.4-36.0 [facility] Comment on above: Performed By: #### 2 162482, 7637550, 67439137, 3216327, 7508966 ####[address] [place] [address] MCV (RBC) [Entitic vol] 101.1 fL High 80.0-100.0 [facility] Comment on above: Performed By: #### 2 381183, 5985995, 22888937, 5821623, 9941613 ####[address] [place] [address] Platelet mean volume (Bld) [Entitic vol] 7.5 fL Normal 6.4-10.8 [facility] Comment on above: Performed By: #### 2 247445, 8928346, 48412468, 1950529, 0014403 ####[address] [place] [address] Platelets (Bld) [#/Vol] 75.0 E9/L Low 150.0-500.0 [facility] Comment on above: Result Comment: Plat elet count verified using smear estimate RC 03/30/2023 17:26:53 EDT Performed By: #### 2 690345, 0884678, 05272686, 5472952, 6757733 ####[address] [place] [address] RBC (Bld) [#/Vol] 3.1 E12/L Low 4.3-5.9 [facility] Comment on above: Performed By: #### 2 292776, 0283248, 19346455, 3352623, 7280318 ####[facility] [address] [place] [address] WBC corrected for nucl RBC Auto (Bld) [#/Vol] 5.6 E9/L Normal 4.0-11.0 [facility] Comment on above: Performed By: #### 2 179191, 1550397, 59070007, 4215544, 0394917 ####[facility] [address] [place] [address] CHEMISTRYOrdered By: SYSTEM SYSTEM on 03-30-2023 Albumin [...] 35.1 pg High 27.0 - 34.0 pg [facility] HemeAutoSS MCHC (RBC) [Mass/Vol] 34.7 g/dL Normal 31.4 - 36.0 gm/dL [facility] HemeAutoSS MCV (RBC) [Entitic vol] 101.1 fL High 80.0 - 100.0 fL [facility] HemeAutoSS Platelet mean volume (Bld) [Entitic vol] 7.5 fL Normal 6.4 - 10.8 fL [facility] HemeAutoSS Platelets (Bld) [#/Vol] 75.0 E9/L Low 150.0 - 500.0 E9/L [facility] HemeAutoSS Comment on above: Result Comment: Plat elet count verified using smear estimate RC 03/30/2023 17:26:53 EDT RBC (Bld) [#/Vol] 3.1 E12/L Low 4.3 - 5.9 E12/L [facility] HemeAutoSS WBC corrected for nucl RBC Auto (Bld) [#/Vol] 5.6 E9/L Normal 4.0 - 11.0 E9/L [facility] HemeAutoSS Hep Func Panelon 03-30-2023 Albumin [Mass/Vol] 3.8 g/dL Normal 3.3-5.0 [facility] Comment on above: Performed By: #### 2 823605, 0150851, 97127207, 0797965, 2202906 ####[facility] [address] [place] [address] Albumin/Globulin (S) [Mass conc ratio] 1.1 Normal 1.1-2.2 [facility] Comment on above: Performed By: #### 2 337930, 0942935, 03084209, 5270029, 2194437 ####[facility] [address] [place] [address] ALP [Catalytic activity/Vol] 80 Int._Unit/L Normal 21-98 [facility] Comment on above: Performed By: #### 2 993859, 8401267, 22754700, 7578440, 0416215 ####[facility] [address] [place] [address] ALT No additional P-5'-P [Catalytic activity/Vol] 20 Int._Unit/L Normal 6-46 [facility] Comment on above: Performed By: #### 2 470305, 1144784, 81902243, 4558036, 2262155 ####[facility] [address] [place] [address] AST [Catalytic activity/Vol] 48 Int._Unit/L High 5-43 [facility] Comment on above: Performed By: #### 2 029982, 5262390, 56356187, 8210868, 5474711 ####[facility] [address] [place] [address] Bilirubin [Mass/Vol] 3.2 mg/dL High 0.0-1.1 [facility] Comment on above: Performed By: #### 2 602854, 3970620, 44988138, 1561541, 2712647 ####[address] [address] Bilirubin.direct [Mass/Vol] 0.9 mg/dL High 0.1-0.4 [facility] Comment on above: Performed By: #### 2 608499, 5170514, 15718605, 9306823, 4417372 ####[address] [address] Bilirubin.indirect [Mass or moles/Vol] 2.3 mg/dL High 0.1-0.9 [facility] Comment on above: Performed By: #### 2 525302, 6218622, 65109911, 9885327, 3266625 ####[address] [place] [address] Globulin (S) [Mass/Vol] 3.5 g/dL Normal 1.4-4.0 [facility] Comment on above: Performed By: #### 2 776642, 4283339, 20303003, 2941225, 2178336 ####[address] [place] [address] Protein [Mass/Vol] 7.3 g/dL Normal 6.0-7.8 [facility] Comment on above: Performed By: #### 2 952036, 1374807, 87617279, 3572992, 6838732 ####[facility] [address] [place] [address] Lab Miscellaneous-LCon 03-30 Test Code 583149 Invalid Interpretation Code [facility] Comment on above: Performed By: #### 1 [id number] ####[facility] [address] [place] [address] Test Name PEth Invalid Interpretation Code [facility] Comment on above: Performed By: #### 1 [id number] ####[facility] [address] [facility] [address] PTon 03-30-2023 INR Coag (PPP) [Relative time] 1.5 {INR} Invalid Interpretation Code [facility] Comment on above: Result Comment: INR results are specifically intended to assess patients stabilized on long-term Anticoagulation therapy suggested INR?s ?Less Intensive Anticoagulation? 2.0 ? 3.0 Conventional Range 3.0 ? 4.5 Performed By: #### 2 238725, 6100848, 10286144, 8344035, 9036604 ####[facility] [address] [place] [address] PT Coag (PPP) [Time] 16.9 second(s) High 9.4-12.5 [facility] Comment on above: Result Comment: 15 [...] the same coagulation reagent and instrumentation as [facility]. Currently there are no coagulation studies available worldwide for children to 14 days, and no normal ranges. Performed By: #### 2 266993, 7578661, 37442745, 0305628, 4833627 ####[facility] [address] [place] [address] Reference Laboratory Testing Ordered By: Wanda Dee on 03-30-2023 Test Code 011466 Invalid Interpretation Code [facility] SendOutsSS Test Name PEth Invalid Interpretation Code [facility] SendOutsSS eGFRon 03-30-2023 GFR/1.73 sq M.predicted among non-blacks MDRD (S/P/Bld) [Vol rate/Area] 38 mL/min/1.73 m2 Low >=59 [facility] Comment on above: Order Comment: Order added by Discern Expert. Result Comment: Cream Separator Operator nishi kidney disease could be indicated at eGFR's of less than 60 mL/min/1.73m2. Kidney failure is indicated at less than 15 mL/min/1.73m2. Performed By: #### 2 560030, 2329420, 18808257, 8929778, 9770113 ####[facility] [address] [place] [address] CNPNon 03-26-2023 CNPN Normal [facility] Lab Miscellaneous-LCon 03-17 Lab Miscellaneous COMMENT Invalid Interpretation Code [facility] Comment on above: Result Comment: Test Ordered: [id number] Phosphatidylethanol (PEth) PHOSPHATIDYLETHANOL Negative MX Phosphatidylethanol (PEth) Negative ng/mL MX Analyzed compound: PEth 16:0/18:1. 0-rkzibgpcc-6-vkkrzx-lf-jpmdcbn-3-phosphoethanol. Analysis performed by Liquid Chromatography with Tandem [...] developed and its performance characteristics determined by [email or web address]. It has not been cleared or approved by the Food and Drug Administration. Performed at: [facility] [address], [place] [id number] PhD Arcelia Banegas Performed By: #### 1 [id number] ####[facility] [address] [place] [address] CNPNon 03-13-2023 CNPN Normal [facility] BMPon 03-12-2023 Anion gap [Moles/Vol] 12 mmol/L Normal 6-16 [facility] Comment on above: Performed By: #### 2 163450, 6410292, 7587058, 4104662, 24366135 ####[facility] [address] AveNlawrence+[place] [address] Calcium [Mass/Vol] 10.1 mg/dL Normal 8.9-11.1 [facility] Comment on above: Performed By: #### 2 317840, 3221592, 9815470, 7867963, 91388048 ####[facility] [address] [place] [address] Chloride [Moles/Vol] 100 mmol/L Low 101-111 [facility] Comment on above: Performed By: #### 2 136399, 6864428, 9865550, 1401040, 70228980 ####[facility] [address] AveNlawrence+[place] [address] CO2 [Moles/Vol] 26 mmol/L Normal 21-31 [facility] Comment on above: Performed By: #### 2 505144, 3358022, 8068524, 6792184, 33251675 ####[facility] [address] AveNlawrence+[place] [address] Creatinine [Mass/Vol] 1.1 mg/dL Normal 0.5-1.3 [facility] Comment on above: Performed By: #### 2 854357, 5131584, 2901038, 4718827, 02476061 ####[facility] [address] [place] [address] Glucose [Mass/Vol] 60 mg/dL Normal 55-199 [facility] Comment on above: Result Comment: If t his glucose result represents a fasting glucose, interpretation should refer to the following reference range: 55-99 mg/dL Performed By: #### 2 635612, 9656444, 0346585, 6034151, 83122752 ####[facility] [address] [place] [address] Potassium [Moles/Vol] 4.1 mmol/L Normal 3.5-5.3 [facility] Comment on above: Performed By: #### 2 084488, 7277967, 2932609, 4929443, 69445808 ####[facility] [address] [place] [address] Sodium [Moles/Vol] 134 mmol/L Low 135-145 [facility] Comment on above: Performed By: #### 2 695529, 4341134, 3226705, 8439794, 91271960 ####[facility] [address] [place] [address] Urea nitrogen [Mass/Vol] 15 mg/dL Normal 5-21 [facility] Comment on above: Performed By: #### 2 331975, 3513126, 2832144, 6828353, 54325687 ####[facility] [address] [place] [address] Urea nitrogen/Creatinine [Mass ratio] 14 No Units Normal 10-20 [facility] Comment on above: Performed By: #### 2 091307, 0236730, 2030650, 9132179, 87903344 ####[facility] [address] [place] [address] CBC w/Indiceson 03-12-2023 Erythrocyte distribution width (RBC) [Ratio] 14.7 % High 10.9-14.2 [facility] Comment on above: Performed By: #### 2 800042, 3545414, 4877673, 9690061, 60149875 ####[facility] [address] [place] [address] Hematocrit (Bld) [Volume fraction] 30.8 % Low 37.7-49.0 [facility] Comment on above: Performed By: #### 2 949448, 7767857, 1528194, 7214539, 88687265 ####[facility] [address] [place] [address] Hemoglobin (Bld) [Mass/Vol] 10.8 g/dL Low 13.5-17.5 [facility] Comment on above: Performed By: #### 2 580422, 1640090, 8889521, 7411522, 93683196 ####[address] [address] MCH (RBC) [Entitic mass] 35.6 pg High 27.0-34.0 [facility] Comment on above: Performed By: #### 2 980282, 6193051, 4410879, 9801380, 28080588 ####[address] [address] MCHC (RBC) [Mass/Vol] 34.9 g/dL Normal 31.4-36.0 [facility] Comment on above: Performed By: #### 2 440625, 3293403, 6916699, 2759999, 63318951 ####[address] [address] MCV (RBC) [Entitic vol] 101.9 fL High 80.0-100.0 [facility] Comment on above: Performed By: #### 2 741796, 8942378, 2205898, 3929856, 10289647 ####[address] [address] Platelet mean volume (Bld) [Entitic vol] 7.8 fL Normal 6.4-10.8 [facility] Comment on above: Performed By: #### 2 468060, 0760608, 6940001, 0574343, 47201554 ####[address] [address] Platelets (Bld) [#/Vol] 92.0 E9/L Low 150.0-500.0 [facility] Comment on above: Performed By: #### 2 526588, 3276435, 1147306, 1428865, 50304117 ####[facility] [address] [place] [address] RBC (Bld) [#/Vol] 3.0 E12/L Low 4.3-5.9 [facility] Comment on above: Performed By: #### 2 407121, 7848401, 8217696, 7423120, 76080679 ####[facility] [address] [place] [address] WBC corrected for nucl RBC Auto (Bld) [#/Vol] 6.0 E9/L Normal 4.0-11.0 [facility] Comment on above: Performed By: #### 2 985172, 2551158, 0176586, 1535889, 83770324 ####[facility] [address] [place] [address] CHEMISTRYOrdered By: SYSTEM SYSTEM on 03-12-2023 Albumin [...] 26 mmol/L Normal 21 - 31 mmol/L FT [facility] Creatinine [Mass/Vol] 1.1 mg/dL Normal 0.5 - 1.3 mg/dL [facility] GFR/1.73 sq M.predicted among non-blacks MDRD (S/P/Bld) [Vol rate/Area] 86 mL/min/1.73 m2 Normal >=59mL/min/1 .73 m2 [facility] Chem S Globulin (S) [Mass/Vol] 3.6 g/dL Normal 1.4 - 4.0 gm/dL [facility] Glucose [Mass/Vol] 60 mg/dL Normal 55 - 199 mg/dL [facility] Potassium [Moles/Vol] 4.1 mmol/L Normal 3.5 - 5.3 mmol/L [facility] Protein [Mass/Vol] 7.7 g/dL Normal 6.0 - 7.8 gm/dL [facility] Remisol Sodium [Moles/Vol] 134 mmol/L Low 135 - 145 mmol/L [facility] Urea nitrogen [Mass/Vol] 15 mg/dL Normal 5 - 21 mg/dL [facility] Urea nitrogen/Creatinine [Mass ratio] 14 mg/mg Normal 10 - 20 [facility] COAGULATIONOrdered By: Roxy Kumar on 03-12-2023 INR Coag (PPP) [Relative time] 1.5 {INR} Invalid Interpretation Code [facility] Auto Coag PT Coag (PPP) [Time] 17.4 s High 9.4 - 1 2.5 second(s) [facility] Auto Coag Consent for Treatmenton 02-22 Consent for Treatment [id number]#[id number]:127 Normal [facility] HEMATOLOGYOrdered By: Renae Martínez on 03-12-2023 Erythrocyte distribution width (RBC) [Ratio] 14.7 % High 10.9 - 14.2 % [facility] HemeAutoSS Hematocrit (Bld) [Volume fraction] 30.8 % [...] 03-12-2023 Albumin [Mass/Vol] 4.1 g/dL Normal 3.3-5.0 [facility] Comment on above: Performed By: #### 2 486581, 9765298, 8739181, 8401019, 70588325 ####[facility] [address] [place] [address] Albumin/Globulin (S) [Mass conc ratio] 1.1 Normal 1.1-2.2 [facility] Comment on above: Performed By: #### 2 332581, 8043716, 2849484, 4285954, 18168656 ####[facility] [address] [place] [address] ALP [Catalytic activity/Vol] 100 Int._Unit/L High 21-98 [facility] Comment on above: Performed By: #### 2 931198, 3842041, 5890219, 5853384, 27250199 ####[facility] [address] [place] [address] ALT No additional P-5'-P [Catalytic activity/Vol] 21 Int._Unit/L Normal 6-46 [facility] Comment on above: Performed By: #### 2 747829, 4020228, 9340966, 0304570, 13817300 ####[facility] [address] [place] [address] AST [Catalytic activity/Vol] 50 Int._Unit/L High 5-43 [facility] Comment on above: Performed By: #### 2 746511, 4774412, 3323591, 6493868, 71151982 ####[address] [address] Bilirubin [Mass/Vol] 2.9 mg/dL High 0.0-1.1 [facility] Comment on above: Performed By: #### 2 673863, 5225366, 8182514, 7456364, 82295715 ####[facility] [address] [place] [address] Bilirubin.direct [Mass/Vol] 0.8 mg/dL High 0.1-0.4 [facility] Comment on above: Performed By: #### 2 218914, 3436915, 9077382, 9598975, 27894815 ####[address] [place] [address] Bilirubin.indirect [Mass or moles/Vol] 2.1 mg/dL High 0.1-0.9 [facility] Comment on above: Performed By: #### 2 850857, 7410351, 3898766, 7042833, 20741087 ####[address] [place] [address] Globulin (S) [Mass/Vol] 3.6 g/dL Normal 1.4-4.0 [facility] Comment on above: Performed By: #### 2 392714, 4844441, 1949941, 5608515, 14493059 ####[facility] [address] [place] [address] Protein [Mass/Vol] 7.7 g/dL Normal 6.0-7.8 [facility] Comment on above: Performed By: #### 2 496402, 3112114, 8480883, 8410566, 51436665 ####[facility] [address] [place] [address] Lab Miscellaneous-LCon 03-12 Test Code 723163 Invalid Interpretation Code [facility] Comment on above: Performed By: #### 1 [id number] ####[facility] [address] [place] [address] Test Name PETH Invalid Interpretation Code [facility] Comment on above: Performed By: #### 1 [id number] ####[facility] [address] [place] [address] PTon 03-12-2023 INR Coag (PPP) [Relative time] 1.5 {INR} Invalid Interpretation Code [facility] Comment on above: Result Comment: INR results are specifically intended to assess patients stabilized on long-term Anticoagulation therapy suggested INR?s ?Less Intensive Anticoagulation? 2.0 ? 3.0 Conventional Range 3.0 ? 4.5 Performed By: #### 2 840458, 7713900, 9819324, 6779126, 08648397 ####[facility] [address] [place] [address] PT Coag (PPP) [Time] 17.4 second(s) High 9.4-12.5 [facility] Comment on above: Result Comment: 15 [...] the same coagulation reagent and instrumentation as [facility]. Currently there are no coagulation studies available worldwide for children to 14 days, and no normal ranges. Performed By: #### 2 946384, 9767217, 3486062, 8180788, 06477819 ####[facility] [address] [place] [address] Physician Orderon 03-12-2023 Physician Order [id number]#[id number]:127 Normal [facility] Reference Laboratory Testing Ordered By: Mariza Rivas on 03-12-2023 Test Code 205842 Invalid Interpretation Code [facility] SendOuts Test Name PETLauren Invalid Interpretation Code [facility] SendOutsSS eGFRon 03-12-2023 GFR/1.73 sq M.predicted among non-blacks MDRD (S/P/Bld) [Vol rate/Area] 86 mL/min/1.73 m2 Normal >=59 [facility] Comment on above: Order Comment: Order added by Discern Expert. Result Comment: Cream Separator Operator nishi kidney disease could be indicated at eGFR's of less than 60 mL/min/1.73m2. Kidney failure is indicated at less than 15 mL/min/1.73m2. Performed By: #### 2 880974, 9900353, 5824465, 2816157, 59685307 ####[facility] [address] [place] [address] AFP SerPl-mCncon 01-20-2023 AFP [Mass/Vol] 9.2 ng/mL Normal <11.0 [facility] Comment on above: Order Comment: Speci men Type: BLOOD SPECIMENOrdering Facility: [facility] Address: [address] [place] [address] Result Comment: The test is typically used [...] Alpha-Fetoprotein test was performed using the Siemens Centaur XP chemiluminometric immunoassay method. Results obtained with different assay methods or kits cannot be used interchangeably. Performed By: #### 1 834-1 ####[facility] LABCLIA [id number] [place] [address] [place] Basic metabolic 2000 panelon 01-20-2023 Anion gap [Moles/Vol] 13 mmol/L Normal 9-18 [facility] Comment on above: Order Comment: Speci men Type: BLOOD SPECIMENOrdering Facility: [facility] Address: [address] [address] Performed By: #### 2 4321-2, 66789-8 ####[facility] LABIA [id number] [place] [address] [place] Calcium [Mass/Vol] 9.5 mg/dL Normal 8.5-10.2 [facility] Comment on above: Order Comment: Speci men Type: BLOOD SPECIMENOrdering Facility: [facility] Address: [address] [address] Performed By: #### 2 4321-2, 27011-7 ####[facility] LABIA [id number] [place] [address] [place] Chloride [Moles/Vol] 97 mmol/L Normal 97-105 [facility] Comment on above: Order Comment: Speci men Type: BLOOD SPECIMENOrdering Facility: [facility] Address: [address] Performed By: #### 2 4321-2, 70124-7 ####[facility] LABIA [id number] [place] [address] [place] CO2 [Moles/Vol] 23 mmol/L Normal 22-30 [facility] Comment on above: Order Comment: Speci men Type: BLOOD SPECIMENOrdering Facility: [facility] Address: [address] [id number] Performed By: #### 2 4321-2, 09148-7 ####[facility] LABIA [id number] [address] STATES OF [facility] Creatinine [Mass/Vol] 1.15 mg/dL Normal 0.73-1.22 [facility] Comment on above: Order Comment: Rasta kennedy Type: BLOOD SPECIMENOrdering Facility: [facility] Address: [address] Performed By: #### 2 4321-2, 49668-7 ####[facility] LABIA [id number] [address] OF [facility] ESTIMATED GLOMERULAR FILTRATION RATE 82 mL/min/1.73m??? Normal >=60 [facility] Comment on above: Order Comment: Rasta kennedy Type: BLOOD SPECIMENOrdering Facility: [facility] Address: [address] [address] Result Comment: Karma mated Glomerular Filtration Rate [...] actual GFR. Performed By: #### 2 4321-2, 64393-1 ####[facility] LABIA [id number] [place] [address] [place] Glucose [Mass/Vol] 100 mg/dL High 74-99 [facility] Comment on above: Order Comment: Rasta kennedy Type: BLOOD SPECIMENOrdering Facility: [facility] Address: [address] [address] Result Comment: The [place] [employer] (ADA) provides guidance for cutoff [...] Standards of Medical Care in Diabetes 2016, [place] [employer]. Diabetes Care. 2016.39(Suppl 1). Performed By: #### 2 4320-, 00589-2 ####[facility] LABCLIA [id number] [place] [address] [place] Potassium [Moles/Vol] 4.7 mmol/L Normal 3.7-5.1 [facility] Comment on above: Order Comment: Yuryi brent Type: BLOOD SPECIMENOrdering Facility: [facility] Address: [address] [place] [address] Performed By: #### 2 4320-09, 44049-6 ####[facility] LABIA [id number] [place] [address] [place] Sodium [Moles/Vol] 133 mmol/L Low 136-144 [facility] Comment on above: Order Comment: Rasta kennedy Type: BLOOD SPECIMENOrdering Facility: [facility] Address: [address] [place] [address] Performed By: #### 2 4320-09, 75060-8 ####[facility] LABIA [id number] [place] [address] [place] Urea nitrogen [Mass/Vol] 16 mg/dL Normal 9-24 [facility] Comment on above: Order Comment: Yuryi brent Type: BLOOD SPECIMENOrdering Facility: [facility] Address: [address] [place] [address] Performed By: #### 2 4320-09, 51775-7 ####[facility] LABIA [id number] [place] [address] [place] CBC W Auto Differential pane l (Bld)on 01-20-2023 Basophils (Bld) [#/Vol] 0.07 10*3/uL Normal <0.11 [facility] Comment on above: Order Comment: Speci men Type: BLOOD SPECIMENOrdering Facility: [facility] Address: [address] [place] [address] Performed By: #### 5 7021-8 ####[facility] LABCLIA [id number] [place] [address] [place] Basophils/100 WBC (Bld) 1.0 % Normal [facility] Comment on above: Order Comment: Speci men Type: BLOOD SPECIMENOrdering Facility: [facility] Address: [address] [place] [address] Performed By: #### 5 7021-8 ####[facility] LABCLIA [id number] [place] [address] [place] Differential cell count method Nom (Bld) Auto Normal [facility] Comment on above: Order Comment: Speci men Type: BLOOD SPECIMENOrdering Facility: [facility] Address: [address] [place] [address] Performed By: #### 5 7021-8 ####[facility] LABCLIA [id number] [place] [address] [place] Eosinophils (Bld) [#/Vol] 0.28 10*3/uL Normal <0.46 [facility] Comment on above: Order Comment: Speci men Type: BLOOD SPECIMENOrdering Facility: [facility] Address: [address] [place] [address] Performed By: #### 5 7021-8 ####[facility] LABCLIA [id number] [place] [address] [place] Eosinophils/100 WBC (Bld) 4.1 % Normal [facility] Comment on above: Order Comment: Speci men Type: BLOOD SPECIMENOrdering Facility: [facility] Address: [address] Performed By: #### 5 7021-8 ####[facility] LABCLIA [id number] [place] [address] [place] Erythrocyte distribution width (RBC) [Ratio] 13.6 % Normal 11.5-15.0 [facility] Comment on above: Order Comment: Speci men Type: BLOOD SPECIMENOrdering Facility: [facility] Address: [address] Performed By: #### 5 7021-8 ####[facility] LABCLIA [id number] [place] [address] [place] Hematocrit (Bld) [Volume fraction] 31.6 % Low 39.0-51.0 [facility] Comment on above: Order Comment: Speci men Type: BLOOD SPECIMENOrdering Facility: [facility] Address: [address] Performed By: #### 5 7021-8 ####[facility] LABIA [id number] [place] [address] [place] Hemoglobin (Bld) [Mass/Vol] 11.1 g/dL Low 13.0-17.0 [facility] Comment on above: Order Comment: Speci men Type: BLOOD SPECIMENOrdering Facility: [facility] Address: [address] Performed By: #### 5 7021-8 ####[facility] LABCLIA [id number] [place] [address] [place] Immature granulocytes (Bld) [#/Vol] 10*3/uL Normal <0.10 [facility] Comment on above: Order Comment: Speci men Type: BLOOD SPECIMENOrdering Facility: [facility] Address: [address] Performed By: #### 5 7021-8 ####[facility] LABCLIA [id number] [address] [place] Immature granulocytes/100 WBC (Bld) 0.3 % Normal [facility] Comment on above: Order Comment: Speci men Type: BLOOD SPECIMENOrdering Facility: [facility] Address: [address] [place] [address] Performed By: #### 5 7021-8 ####[facility] LABCLIA [id number] [place] [address] [place] Lymphocytes (Bld) [#/Vol] 1.70 10*3/uL Normal 1.00-4.00 [facility] Comment on above: Order Comment: Speci men Type: BLOOD SPECIMENOrdering Facility: [facility] Address: [address] [place] [address] Performed By: #### 5 7021-8 ####[facility] LABCLIA [id number] [address] STATES OF [facility] Lymphocytes/100 WBC (Bld) 25.1 % Normal [facility] Comment on above: Order Comment: Speci men Type: BLOOD SPECIMENOrdering Facility: [facility] Address: [address] [place] [address] Performed By: #### 5 7021-8 ####[facility] LABCLIA [id number] [place] [address] [place] MCH (RBC) [Entitic mass] 36.3 pg High 26.0-34.0 [facility] Comment on above: Order Comment: Speci men Type: BLOOD SPECIMENOrdering Facility: [facility] Address: [address] [place] [address] Performed By: #### 5 7021-8 ####[facility] LABCLIA [id number] [place] [address] [place] MCHC (RBC) [Mass/Vol] 35.1 g/dL Normal 30.5-36.0 [facility] Comment on above: Order Comment: Speci men Type: BLOOD SPECIMENOrdering Facility: [facility] Address: [address] [address] Performed By: #### 5 7021-8 ####[facility] LABCLIA [id number] [place] [address] [place] MCV (RBC) [Entitic vol] 103.3 fL High 80.0-100.0 [facility] Comment on above: Order Comment: Speci men Type: BLOOD SPECIMENOrdering Facility: [facility] Address: [address] Performed By: #### 5 7021-8 ####[facility] LABIA [id number] [place] [address] [place] Monocytes (Bld) [#/Vol] 0.61 10*3/uL Normal <0.87 [facility] Comment on above: Order Comment: Speci men Type: BLOOD SPECIMENOrdering Facility: [facility] Address: [address] Performed By: #### 5 7021-8 ####[facility] LABIA [id number] [place] [address] [place] Monocytes/100 WBC (Bld) 9.0 % Normal [facility] Comment on above: Order Comment: Speci men Type: BLOOD SPECIMENOrdering Facility: [facility] Address: [address] Performed By: #### 5 7021-8 ####[facility] LABIA [id number] [place] [address] [place] Neutrophils (Bld) [#/Vol] 4.09 10*3/uL Normal 1.45-7.50 [facility] Comment on above: Order Comment: Speci men Type: BLOOD SPECIMENOrdering Facility: [facility] Address: [address] Performed By: #### 5 7021-8 ####[facility] LABCLIA [id number] [place] [address] [place] Neutrophils/100 WBC (Bld) 60.5 % Normal [facility] Comment on above: Order Comment: Speci men Type: BLOOD SPECIMENOrdering Facility: [facility] Address: [address] [place], [place] [address] Performed By: #### 5 7021-8 ####[facility] LABCLIA [id number] [place] [address] [place] Nucleated RBC (Bld) [#/Vol] 10*3/uL Normal <0.01 [facility] Comment on above: Order Comment: Speci men Type: BLOOD SPECIMENOrdering Facility: [facility] Address: [address] [place], [place] [address] Performed By: #### 5 7021-8 ####[facility] LABIA [id number] [place] [address] [place] Nucleated RBC/100 WBC (Bld) [Ratio] 0.0 /100 WBC Normal [facility] Comment on above: Order Comment: Speci men Type: BLOOD SPECIMENOrdering Facility: [facility] Address: [address] [place], [place] [address] Performed By: #### 5 7021-8 ####[facility] LABIA [id number] [place] [address] [place] Platelet mean volume (Bld) [Entitic vol] 9.6 fL Normal 9.0-12.7 [facility] Comment on above: Order Comment: Speci men Type: BLOOD SPECIMENOrdering Facility: [facility] Address: [address] [place], [place] [address] Performed By: #### 5 7021-8 ####[facility] LABIA [id number] [place] [address] [place] Platelets (Bld) [#/Vol] 109 10*3/uL Low 150-400 [facility] Comment on above: Order Comment: Speci men Type: BLOOD SPECIMENOrdering Facility: [facility] Address: [address] [place] [address] Result Comment: Resu lts checked and verified.No clot detected. Performed By: #### 5 7021-8 ####[facility] LABCLIA [id number] [place] [address] [place] RBC (Bld) [#/Vol] 3.06 10*6/uL Low 4.20-6.00 [facility] Comment on above: Order Comment: Speci men Type: BLOOD SPECIMENOrdering Facility: [facility] Address: [address] [place] [address] Performed By: #### 5 7021-8 ####[facility] LABCLIA [id number] [place] [address] [place] WBC (Bld) [#/Vol] 6.77 10*3/uL Normal 3.70-11.00 [facility] Comment on above: Order Comment: Speci men Type: BLOOD SPECIMENOrdering Facility: [facility] Address: [address] [place] [address] Performed By: #### 5 7021-8 ####[facility] LABCLIA [id number] [place] [address] [place] CT LIVER W IVCONon 3 CT LIVER W IVCON Normal [facility] Hepatic function 2000 panelo n 01-20-2023 Albumin [Mass/Vol] 3.8 g/dL Low 3.9-4.9 [facility] Comment on above: Order Comment: Speci men Type: BLOOD SPECIMENOrdering Facility: [facility] Address: [address] [place] [address] Performed By: #### 2 4321-2, 00575-3 ####[facility] LABCLIA [id number] [place] [address] [place] ALP [Catalytic activity/Vol] 110 U/L Normal 38-113 [facility] Comment on above: Order Comment: Speci men Type: BLOOD SPECIMENOrdering Facility: [facility] Address: [address] [place] [address] Performed By: #### 2 1-2, 14195-2 ####[facility] LABCLIA [id number] [place] [address] [place] ALT [Catalytic activity/Vol] 26 U/L Normal 10-54 [facility] Comment on above: Order Comment: Speci men Type: BLOOD SPECIMENOrdering Facility: [facility] Address: [address] [place] [address] Performed By: #### 2 4320-2, 25012-0 ####[facility] LABCLIA [id number] [address] [place] AST [Catalytic activity/Vol] 56 U/L High 14-40 [facility] Comment on above: Order Comment: Speci men Type: BLOOD SPECIMENOrdering Facility: [facility] Address: [address] [place] [address] Performed By: #### 2 4320-2, 40858-1 ####[facility] LABCLIA [id number] [place] [address] [place] Bilirubin [Mass/Vol] 4.0 mg/dL High 0.2-1.3 [facility] Comment on above: Order Comment: Speci men Type: BLOOD SPECIMENOrdering Facility: [facility] Address: [address] [place], [place] [address] Performed By: #### 2 4320-2, 42869-0 ####[facility] LABCLIA [id number] [place] [address] [place] Bilirubin.conjugated [Mass/Vol] 1.2 mg/dL High <0.2 [facility] Comment on above: Order Comment: Speci men Type: BLOOD SPECIMENOrdering Facility: [facility] Address: [address] [place] [address] Performed By: #### 2 4321-2, 75565-8 ####[facility] LABCLIA [id number] [place] [address] [place] Protein [Mass/Vol] 7.1 g/dL Normal 6.3-8.0 [facility] Comment on above: Order Comment: Speci men Type: BLOOD SPECIMENOrdering Facility: [facility] Address: [address] [place] [address] Performed By: #### 2 4321-2, 05752-3 ####[facility] LABCLIA [id number] [place] [address] [place] PHOSPHATIDYLETHANOL (PETH)on 01-20-2023 EER PETH See Note Normal [facility] Comment on above: Order Comment: Speci men Type: BLOOD SPECIMENOrdering Facility: [facility] Address: [address] [place] [address] Result Comment: Auth orized individuals can access the KORTNEYUn[facility] - Morgantonanced Report using the following link:[email or web address] By: KORTNEY [id number] [place], [place] [address]Imwletmlqi Director: Audi Bundy MD, PhD Performed By: #### P ETH ####[facility] [id number] [place] [address] PETH 16:0/18.2 (PLPETH) <10 Normal [facility] Comment on above: Order Comment: Speci men Type: BLOOD SPECIMENOrdering Facility: [facility] Address: [address] [place] [address] Performed By: #### P ETH ####[facility] [id number] [place] [address] PETH 16:0/18:1 (POPETH) <10 Normal [facility] Comment on above: Order Comment: Speci men Type: BLOOD SPECIMENOrdering Facility: [facility] Address: [place] [address] Result Comment: INTE RPRETIVE INFORMATION:Phosphatidylethanol (PEth), Whole BloodPhosphatidylethanol (PEth) homologues Result InterpretationPEth 16:0/18:1 (POPEth)Less than 10 ng/mL............Not detectedLess than 20 ng/mL............Abstinence or light alcohol ymeyydgzylk81 - 200 ng/mL................Moderate alcohol consumptionGreater than 200 [...] was developed and its performance characteristicsdetermined by [employer]. It has not been cleared orapproved by the U.S. Food and Drug Administration. This test wasperformed in a CLIA-certified laboratory and is intended forclinical purposes. Performed By: #### P ETH ####[facility] [id number] [place] [address] PT panel Coag (PPP)on 2022 INR Coag (PPP) [Relative time] 1.3 {INR} Normal 0.9-1.3 [facility] Comment on above: Order Comment: Speci men Type: BLOOD SPECIMENOrdering Facility: [facility] Address: [address] [id number] Result Comment: Binta min K Antagonist (VKA) Therapeutic Range: INR 2 to 3 (Target INR of 2.5)Note: For patients treated with VKA drugs, such as warfarin, the [employer] 2012 Guideline recommends [...] al. Chest 2012, 141:7S-47SNishimyumiko RA, et al. [facility] 2017, 70: 252-289 Performed By: #### 3 4528-0 ####[facility] [id number] [place] [address] [place] PT Coag (PPP) [Time] 13.4 s High 9.7-13.0 [facility] Comment on above: Order Comment: Speci men Type: BLOOD SPECIMENOrdering Facility: [facility] Address: [address] [place] [address] Performed By: #### 3 4528-0 ####[facility] LAB[facility]IA [id number] [place] [address] [place] TOX SCREEN ROUT URon 023 Amphetamines Confirm (U) [Mass/Vol] Negative Normal Negative [facility] Comment on above: Order Comment: Speci men Type: URINE SPECIMENOrdering Facility: [facility] Address: [address] [place] [address] Result Comment: Cuto ff threshold at 1000 ng/mL. Performed By: #### U TOX2 ####[facility] LAB[facility]IA [id number] [place] [address] [place] BARBITURATES, URINE Negative Normal Negative [facility] Comment on above: Order Comment: Speci men Type: URINE SPECIMENOrdering Facility: [facility] Address: [address] [place] [address] Result Comment: Cuto ff threshold at 200 ng/mL. Performed By: #### U TOX2 ####[facility] LAB[facility]IA [id number] [place] [address] [place] BENZODIAZEPINES, UR Negative Normal Negative [facility] Comment on above: Order Comment: Speci men Type: URINE SPECIMENOrdering Facility: [facility] Address: [address] [place] [address] Result Comment: Cuto ff threshold at 200 ng/mL. Performed By: #### U TOX2 ####[facility] [id number] [place] [address] [place] CANNABINOIDS,URINE Positive Abnormal Negative [facility] Comment on above: Order Comment: Speci men Type: URINE SPECIMENOrdering Facility: [facility] Address: [address] [place] [address] Result Comment: Cuto ff threshold at 50 ng/mL. Performed By: #### U TOX2 ####[facility] LABCLIA [id number] [place] [address] [place] Cocaine Ql (U) Negative Normal Negative [facility] Comment on above: Order Comment: Speci men Type: URINE SPECIMENOrdering Facility: [facility] Address: [address] [address] Result Comment: Cuto ff threshold at 300 ng/mL. Performed By: #### U TOX2 ####[facility] LABCLIA [id number] [place] [address] [place] Ethanol (U) [Mass/Vol] <11 Normal <11 [facility] Comment on above: Order Comment: Speci men Type: URINE SPECIMENOrdering Facility: [facility] Address: [address] [place] [address] Performed By: #### U TOX2 ####[facility] LABCLIA [id number] [address] [place] Opiates Screen Ql (U) Negative Normal Negative [facility] Comment on above: Order Comment: Speci men Type: URINE SPECIMENOrdering Facility: [facility] Address: [address] [place] [address] Result Comment: Cuto ff threshold at 300 ng/mL. Performed By: #### U TOX2 ####[facility]IA [id number] [address] [place] oxyCODONE cutoff Screen (U) [Mass/Vol] Negative Normal Negative [facility] Comment on above: Order Comment: Speci men Type: URINE SPECIMENOrdering Facility: [facility] Address: [address] [place] [address] Result Comment: Cuto ff threshold at 100 ng/mL. Performed By: #### U TOX2 ####[facility]CLIA [id number] [address] [place] Phencyclidine Ql (U) Negative Normal Negative [facility] Comment on above: Order Comment: Speci men Type: URINE SPECIMENOrdering Facility: [facility] Address: [address] [place] [address] Result Comment: Cuto ff threshold at 25 ng/mL. Performed By: #### U TOX2 ####[facility] LABCLIA [id number] [place] [address] [address] [place] CNPNon 12-11-2022 CNPN Normal [facility] Lab Reportson 12-11-2022 Lab Reports [id number]#1.00CD:127 Normal [facility] RAD - Ultrasound Reporton RAD - Ultrasound Report [id number]#1.00CD:127 Normal [facility] Coding Summary.on 12-10-2022 Coding Summary. CD:[id number] Ww+PGhl YWQ+AB9BLZPdL09jjBIxwI6eX2M MTElOSywgQVBQTElOSyIgbmFtZT 1kaXNjZXJu IC8+IF5jWPSeRzzgkAVef2X7vNV 2R54hdz1dECkjjLD7IKDqRsHbsf wmi1uhuPi5CCpuLflkBuFl FDAmrO46WYP3oN36Wg41lGNcqFV vs6ozoEg1ErXxTVUrOUF4cBqtSM byq3DhGDRmV92jeQIjl9G1 XRPkyNcfwROuMwQpsGU9qV9vPNg loxqkn9sckvruDsv8kd73bKHir0 A7gBG1P3FvqlT1JMAdtUKv LmmsvRSTdA0hfhjjb5djpeqlJeL kJISfXAp3ZTl1WSLcfPcsNlMuSC 21JUB4MUVsenYzC3GkKJUu bXroNvD5t6G8Ji7BD3CMQmrgX9D NTUFSWTwvdGQ+EP06sk62E9QyCq ovPfq6FFSpUNI7fQW3zO7n MQDpXGdvc9K8cUA3S2IwmnPznr5 fu2bcYKGzKMusO89frMEpp7V8OP OitJL8PTPdoQyrMeUftL74 Oyc+HLVeyJbcs9EhHdipa6jyv5s pyBp5EvisJMThcwXvxVsoICG1d6 IcTv0yTHMeaWJ6kTC2dW0t HpCiIfH1NIzuS631TrTwyZRwJhr lJ10tE2VoiBJ+TYSoBaq5HMEuoA yaXV4pA1WaRQJzaviipHVx vZjxGH4bNFYgplhoTXWtsD4uEIY oE6q5QiPfFqC3QHcyB1IhHTHxxs epCy55xO4lBsIjNpH1STxt P3GgdfB9HHCdgBNdXKluEIJ3R76 qp7X8RKAjHBClUVL0fTV6gR3boP lnbjogbGVmdDsgdmVydGlj LZpsMMbpJ668PDPbxYmpYfUhZHh uZyBEYXRlOiAgMDQvMTkvMjAyMz wvdGQ+MPHoHZB9wJdgETCo iFRoZUwoGl6irBedoYytXX5bHJD hjcutEMPeiZ1dYKTxnGHnkLloNK 4gPQSsrofar735XrTqTNA2 LPHwsDJfI1KqxS1mPgYkRLYlOKS kS5IxnBLpUJgeQ387CSlpAwF0CZ HuqbHsJ7ZiRJAyuIcgGqX4 g3H2Sn5Ic8ZcaakzR4SjrCLrZaF zPmkwKSy3F6OrCqnglNQ+PC90YW UwRF80HCw6WUP4cBvyXZib DXGpC4CerN8uUtTvZGRrRWVfMih +PHRhYmxlIHdpZHRoPScxMDAlJy ItpDvcFA6nGr9uJKRpZRUc cTizdIKkHsSjb5ajPDZsCQlmLX5 udEcuL1BanQO0TPSzf1f8Rl62O0 5iV6ZfiEA+GMLllXE3rWM1 eQ1cDtRzXxP4PPjrZ284KyKhpGK eWjsxc3obk2enmEk7WcU7QIWwib QvaWmiJZW2b7LcBj97H72s IHdpZHRoPSIxNSUiIHZhbGlnbj0 zrB5mAh6+FKNqxZL5jRM2nL8wPt WaNlV2AIofS459SuZjdJYy Kdidi6nqg8otwUz1YdUdHVAzieP yaCjnEOB7d9GdWk41U6YmrQbxi7 NbWcc5qs61nFNma2O3tRG3 D7QgEPZjdpaxxNPioIpyBO9bKET jsrtjEHJkfL0cATAfE2q7MnVxCs F6HUifE2LqbpD9BUGczJLp HFJyjXLTiR5jlyunq8sjpafdZiB qFYBoTOl2XBl5SJUcuIqxJnLlBX P2DmZ1SKS0xOMzvD8qfAfa wkdtwM3kSnl+BSN4aHEpfFKXEY7 lOjwvdGQ+ITEaACK6qZxfBOumJT IthC3rKHDrW0a9ChGaYjW6 BNjrC3UrmnW4LMFsyRVgLPVgbMS TjI2nzqcga7cladtcXrDkYAVyWI l9EJc4HYHgfHpuQoZxCTR5 QdV1FEQ3zNQpgV5vuDopkjrfcY3 wOyc+RtodgSykNJU1FQn5C0IzYr g1FYIguKydAV8xgBQhRDzp Hk1xwUirsBagFB2oWSRyxmpcp25 0IoCgu6krEKHgjWVzPTylTCB1U5 2zl9L9YTQkEJJnQMA2iEM6 mY4cqZejqorkaIPsxNubehIfhNq nNDhfKYwwJ644AYQazZhlZeIwYY e0X8BnYer6MNBacGhuAT1i fZIvNZwoMk8ueDcpwHfgHC7jCHG egmuvy948TaMxn2tdVQXlgXMzHK spEOL8S30eo3K2OTFvEKJb IRA5gDD4eC5ghErvyickeYUvxFa kbxPptDwxXNfjUQxhP268CBSwqP bqLhOqeCs8I6BqZrc7KOHv pIzfZJ9ltCBhSYfxFx0uqPfewKx bAN4zOXNcfhvcv861EnPtf1scOV PzqCFwXPckHDP8T97yr4F1 JMAdXBQwPIC6bEJ4jS5ddCuvgug gbGVmdDsgdmVydGljYWwtYWxpZ2 46IHRvcDsnPlBhdGllbnQg MOwjLBf1Q4ExDfxaqEG+HA02QWP uHL38vKMpmNOwj3jvoEs8HrPePY TiLWP4lSpsUXlco8JsAXIf B95ptCQds2I7HLZzpZrqjPNpYxH pdSX1uN0bGLtwmtrgm1goingmGp vgx7ucvc91rT43W09fQCqq YHVfPDUsFHEmMSFmpElelv5gzL0 wIi8+MQMejTI8tAV5fN7eFVUdPv L3OYrjQ203PjUbtNVzIpvb s0sht5ommUq3TkP2REAojxQpgPb fOVD2x1SrSp24U56jSPawAZTzFD SrZFBmDYLpxZzufw3yvN4k Ii8+DPGvxUF8gKF2uP5oOuSvCdB 6EIzuB576WmLjkUPmFmelM53kC7 JvdXA+LKMhDki5XSGrzUal TI0dnABhFUuqCm7jGQD9PxOhLkL fWQtrC0HjFOFzaotwdbhckKC0KN CcUSEsbI22Yv1bnOkuFXQf qAGZjN2npqfsk5xkbowiChNdMUK mRBg6VUa2QQKwgQqpHfFvIAE7Ho D3GQQ4uBWdsX8qyNfysknf cM9qR7MsSDHivhzmBi71vE1fCsB dSaL1UQesOuc+SFVOVCwgVEhPTU QQXPy8J0KvKox5OFLlkFhg DK9ihHWkOJktGt7hkEfwtYjvTF7 fRASfkxbzCFTnlE0lXZDtdQBldN mfJH3lYPDcslvlw521JzDj OOC2BOOkfOKfN7LcsV9aYoSoGEV tIFHeK4JqaJJcWUbwF519TMmxSc M8ACFzryOnV5JoVSHygCdy GmM7u7B3Xj5tYA9mEz9iCUedUP5 9SX18mEHgy3J8rSZ7G6LsNTGumm ttatluwYP1ZXXhMHUoyR48 oADhIDqoGw4kf6P1u568EFBbVXE ihC82Nr0xtDdsEZPwyAGTjN8efl hep6trgpvtDrSzSWEoGUk8 YWk1MLLmrHkzQeZwLWJ5PuT1EXC 6lENmtK8urCsbqltyqB4gHmu+ND FbJZAxxfT5L3AjFjl9LOLc jYbdEW7leTQcDFamLz6fiHttxVg yTY9fIILrxcqgGHRvaA2rFKZtiA PetGpwYP0nFBXajolfc652 AaMjIRW9SMZmqNHrH4BzhN3xSrH tAZAoCJHaE3PbqHCbFSkqB316TV doCpZ7UVUydtTsK7XdMQLw zTjdUcU6b3D3Qk7NAZjuUF58PH1 8pCQha9S2sUN8D5LmARVocbmkvl pqhDI9FYNiOSEyzY81iMCc HKueRg8pa5M3x687SDQjUDYiaD0 6If2uhCriDKGafYTVdR3fkdent8 bduvspPcNyVISdFVt7PAz3 YLYeeHibFwBnXVN6PaH9NUT9rMH kuP7fzRwijoykvK0vQgo+T3V0cG T5gMUoqSbijPG+RE31op48 H4YmAhxsNjp4WHWdJIQ4rIY3jH9 mZXLxHNgry2W8xRH7X7LffsEgfd 9lw8hlTPMeMKqjW65uhTGj p7R1QJGgwES9OZZwmWlcUbMpuV8 3Oyc+VOJguLygz6EmMfaoq1sgk8 hnbUu0ViEgKLYekfAonHba YGW8w5VvUe23T30vZCiaTQKiEMZ zWASzUVEuqSzxgl8raS6iWn5+PG YviLX7iBX4jV3hQqKfLlG1 HNhmS581VlKvhFJjCsihy3cvq8y eqUu4UzTvQHEtagFscHboQXU2x3 JqMj92G0SubDebr9VsMmw8 iz05dXToq3H9fUJ2V5BqWSIyvhe yhCGqiMkiCD8fTNSfemmgUQClmW 9qMQDzQ0y9PcRaDjB6GAgy G2CgnyU3SPMzuRGvURLbkFVSiU5 ladyyl9fxbylvImIvMDIqBOj5FU r8VUMhsTyiVhMfFVJ7MnR0 IOJ0eYChbK6iaLxpoaxgiN9hKra +LVu7d0oxwQZtGD8qiSW7YN23LP 65fKEfi1A5nKZ4D2LgNFAu cszxkbtrqAR2BQUaJFGzdW43Bz3 nhXrzDl0gZULpIBM5ITMeyYKwX3 AvaR7qWfScQBIzDUVvA2Zy sDBjZHbtB898RFdyAxK4YMUcdwO lL0DrWVBgwNuaOfP1t0Y4Re8GIW 15FK20WA12oOTbh3Z7aGR9 E4HoJDRffesinfhybRT8PNNkFOY jrB65Ii6fbZybDo7bEEWoDNT3EE YhgZLyX7NaeX5pEsJeANJk KBTfR6TpwSShQXzrX586BXamCuF 2ICQlabXtX3KkVKNwoXnoDpV3z6 I8Ee8TUy45HH52LZ56cDWu d4J7eNQ9L6CcHRBvtapaqkgtsRY 2NMWmAJAivL24Lf2hcGpnZk9qHM BgNAS5DTIgtQQjO2ThdG7o DfNgLGLaRVYdT2EcoQHdVSuhF79 2SWanJxG9NOUrgiWkY6QsBYEktJ aeOmO4o1F9Tp0EFRqnwqs8 V7RaApwrsFF+KQ56APRbDH72gHE yeVCus5zdkWz7MbTfOOEhYIY0yE ynQGqod1WdOTAzF44aoJMp r9K1NDSx (more content not included)... Normal [facility] Coding Summary.on 12-03-2022 Coding Summary. CD:[id number] Ww+PGhl YWQ+OK2QXJLcB33asEVltM7pA3F MTElOSywgQVBQTElOSyIgbmFtZT 1kaXNjZXJu IC8+QQ4uDEImAacynBRwj4H1wUC 7Y11icq5mSBewrRF9WSQfVlStnr wqt6owqIk8ABkbXfuzQfWe HSVqgS51ZLW6pO50Pg72lEJsqAU yq2ipgYu4IuCiXTQjSWA9fQieGW juy3RwBLXrA29zsMOyx7Z9 IUWrrDmkuNKbCoGucDC8hP4jGUz hujuda7dyqdruGce8cz80dQLyy5 T4qIL7F7FqolC0UDOzuJRc WkhubMPShX4kewuaw3xcahtfDfC eHMTmHYo1WFu3MSUdoXeqGtVjOA 33RWK5RUSqfyIrG2ErJWDd vCkiGlH5a6C9Mj7YF4YRKgbuA7F NTUFSWTwvdGQ+CH66jx22Y6VwSa pvUeq2RGYlADQ3cKC8pP0c DLHjMIswh3B4oBX0S6WxkgYwke6 io1bjDGUcECdgN41abZJlf0Q9YS PpuQF3QZZduWqiErXwaM35 Oyc+LOAwlDyvz2CdWliuk6ait0w ynJa4CvvgGZDqrxRyyKddGEE1q3 HpKf2oXEQjkYX7qVH0hZ3d ZpNbBoX2NRrvB584AbRsxDRaHyi tX50eU1TroLS+SPSeWpm6JJUqtJ lwEP6jZ6CyIJCemljovBJx uNjnMG4uZWZosyzqZIZidP1yDNK yS0f3FdOsFbH5XWzxG3MvTGHzgv xnPp34gU3mTuOwZkZ3HMxp C0KwraB6JJIuxLVyBUtrLVM3Z85 hy3F4AQNeBGXoAWN8sYM9rQ5miS lnbjogbGVmdDsgdmVydGlj YHrbQWnnY131JHQanPfzIrHeVVq uZyBEYXRlOiAgMDQvMTIvMjAyMz wvdGQ+CYMyTPY3fTrtRPTj aBOgWKiqFp0jsCzddIyqRM8vSLC pczniBAIldO7sIQIuqTFqkMwyPH 1pNPEjbzpip573GrXfRRG1 QBCqmGHlR5IkzV0cLnAiWCQdZBJ jN2DrtPOlYLokZ370TOnkJyC3PU YtqwQqT8CrXKChmQgfGmX4 p9S2Yg5Mx2SxzkjlI5SpuRYpQmS hZtikDMn5B4ZvMxejwPG+PC90YW AiQR72EOl0XSO0jPtjERfq RWJqB3RypH7tWlEfQJCwECTmEco +PHRhYmxlIHdpZHRoPScxMDAlJy XoiXrcQK1dSk3zDISjCBKf mFqkhZRsXhCsb9cyBVPpELdrFA6 cvUckE1PllKG1OZDcy9x1Jv44R0 9sQ5LeaKL+YHQhmZI5eNU1 lD1zXiCwNtO4BRaiQ977QdEekCA pXvenh9xun6fuvOv1IvF4BLBtdx LcaSgtZTX5z7MmOp91U50h IHdpZHRoPSIxNSUiIHZhbGlnbj0 omN8pBp7+NIKspKZ4qZA4tR1mCg OsKjN5CWrlE758PoKgaDZn Blext7dfb7wsyVg6HcPfYRGgvmK uiSseLHZ6f7HjIm29H3YfnDdbg7 AoWsg3zl36eZDak1O1rUA6 X5PhKRCbmpnntCHziXfiJQ6lTQK dyrtaPZIxbF8bNOMwD1k6TwDqWm W1RSmiM3OanxP7SYKgtIHx DZVspZTCeZ1idishr6xcnzfdItZ wSBFcYAo0IGh0HSEslXueGeLxKA V7ImE0RDI7cBLtlZ0wvZqu gqipfG5uEfg+HSZ1jRYiqFIBIA7 lOjwvdGQ+VQLzVHW0qFawOOnrYW MvnK5eOXRgK3j3RjBeYeW8 AQlcD1JtzqY6CALgmHUtJKAovYA KfE5xfetlh1lzybasKlWgBREaRR w8SQt3GWTgaBvxRpQnIRJ3 KyH2SEA8mZGqrI5laOpgdduwgE5 wOyc+CyxwcUdlUKO6HQc0U6IlOn x8VCWkeBkjGF0siQJrZLip El2spCubwSgbCR4cDVXjhnpav00 6PoFfr9lzBCVqzZUqIFaoONQ2G4 0cz5O4WVFpHVCcACB0jLP0 oT9flRcvablcmEBnmMdumoLxqXd xBDqdYRpzX807EKQxfPpcNpQfGB m6V2JiZxc5IJQdvTflHM9q oNSrXGwnWo8ezDqiuFweBZ5vTVV oaeahe738QsTkd1crNHKeiOUnCT jmPVU7E64kv7U4ZREnGEAy KFD7hWV2gI7bqSkitwlooNAiiQg vyoLrcJvuLBffGRyaO506TBWojT kqEpEevHs4B7GjFga6OMZt lOugHU1hsRPmRJhqTi5olJxhoZv mBM0yYQHzeymzd445BaFzj2laNV MupRHxDGylXBU3L93yk3V9 GUUuAIQsJPB9mYJ2aI2agSheoyt gbGVmdDsgdmVydGljYWwtYWxpZ2 46IHRvcDsnPlBhdGllbnQg ZFqdOEw1F1RqOjtdzML+VK73MDF rHJ54mGSumVDht7rtiJm8CxEiLE ZxKRQ0lQewILqjo8CzVTEx D98slRKmr6Y8HWXyhNktpTUoCrE kkTV6sP4jLMdynmonn9lpaubrWj txx2dhqu45rV07E04iGIcv UXKeQXKgXHIlEARtxEtfkf3acI9 wIi8+VJEkyOU4wPR2yA5tLAUeKr H8QGknI339AlSfrYQbEiwm j0yje9jelHr7IaN9VDScpgBbfHz pSEX4a3ZlVf00S14eYMcwXNXjQS ByTBHfYPUbjSjffe0evG6j Ii8+OPHxdRV7pMZ2yF1fZaYvBnH 2ZScxG129BlFpfOWlTilkX77eW1 JvdXA+QKAlXef3ZKCtcIus MS3zeAOxUPwiEs3hJKQ0EcTiJvP oRCneX6LxJXWhjlvriedbkEK9ZE EyLDTthI01Xg4tpNuvWESd fSOPdX7txgceh3hjsiycNeBfDEY dUNa8SMh1JTTyyUncQqRmZJJ6Wr N9WGI5aNQclX7ujNegotsk dE1kA9HcHLMufiedHd62tM9kAbA lOoL5NBrmJpq+SFVOVCwgVEhPTU LCCCt0Y5GmRfd4GHDrlIom ML1grOAeJXffPg0zwAotoVlpOM7 wDUOavtfpBNUklE6dBZLkmXVltG lvCJ8jJDKwfyadq763FpWr CLG2WNTpuGNkN0LylN0dTaEhSLQ hULEtI5JnmTSaZDwcA097FSqvZa N5LTTcimFaA1YkMZMqaWfn WcQ5u6Z5Hm3dZQ9nWf5jTKoySF7 5HR80cSRih5F1yLQ6F9ElVVIvwe wbyndkwLE6JBEmFSJloV76 uGDtPDlwTd4fr6M1t390UYImIUC nmT40Nu5dgQbaFUWleXNIrR0azw sol0manscsFgOiQJTnBSy3 ADg0GTAjcZadWkYvEDH9GsY5LZU 8sWOynR2pqIgrgdmgjC1yJka+ND QaJOEwjgQ6F0JfSgu5ZQZq tYbuMS2jvCUyWJfyUj0ugKrrjWm cVK3hGDLmcjnzKGWioH6cOOJijK LgxSgzOI0lTRCcsnktq375 VjGfDEL3MKJzrHZbV6RwoD0wLeT zXOBdGPRcC3XflOHzXVsnA062VE poLwF0HDXpvjGaC9BnAZPa nLckBvG2j4M2Az6ZFJalEM56IR0 6dVQyx1Y2wZH1G0AuKDHzlucqkc gaiJT8WHGqKHVxnN79xUOk SCpoCm3xs4Y2c604TATdWMBxaH2 3Cm4saSwjAUZybIOSlB9lrnisa3 hdvahwGzDeOXOrPLk0WBk7 CWKtdMqdDaJeUDF4FmB8OWP7zUM cwP5ypHsukafaiN8fKpr+T3V0cG K1lFLxaWzhqMN+EK98do66 I8OrJdnnUkr9CUTlTQA4xTL4wT1 iACHxFDwyt9E7gNX8S9BpnqAatd 1la4fxAVKoXCheL71qnHOk i9B4RLNjyUN8OXOtmOliAxZgaJ8 3Oyc+GDTlcQieg8RzYgfbz3bgi3 nnhLh8KjRnMSUolnGinOtp KSF3v5PjTp45S36gUBjhSGNnCNE xKTBjGQAfkJywmq1wyZ2qEf4+PG NqfRK4hCH9bA0kZpYaEjO7 BBqpJ874IqKucQDwOdnxg6jyy4i fbPx8TmFxNPOgruIpiBkkZHK0t6 QrWg60T2TpgWhbq6HgOdb1 af75eTPba9U8cSB3V7VlUDTsgqi zmJCnoDnkNG5uSHWcrqigTYLvgF 6nNUGqB5b6EjAmVdJ8CRdl N6EfixU7WNVbqPEfVAElqCPZzB4 coxzoz6pkymbmJxEpFRCnONk9EA i4CXOpoOcpCuKvCRE3FyQ1 HGI6xBQotT5xyTztlmtarA5sUtq +MDi8u3nogOYyTJ8anIE6QA32MR 67rSWek9E2gOC7X2PtTSIj jyuupivalOA4AUKmUZKoeK44Uj1 pwNcrGm0qJHCbDAY7VLSqqCLdL1 AsnU6pBcQkSJHpMAPgG1Gm eKDeHGhtR862NDpwYbS3PAUadsR oF2JzVUNivBdnChT5l4M6Pl0OZZ 35UK55JB90iAWyr7R3fNH1 T3YoJZGnitbraobipWA9IDMeQVH pwP71Al2exLqfIo1iKHXqLDH7LX FcpXJiO1BdsB6oMqHrHZBo XFRmS9TjqTToCNzaN965IHtqUcV 2CMCnfbCfU3KjIRXzpXzxZgN7h2 R2Ef8BXj77LL48MB86vOHv i6U8jZI3Q7MvAQHifvyfkyvjmXD 4PFClDZHshZ70Mj2hkZrrNm6wVL PiCHA6UDVrmJScJ0JdjE7o GbUbNVMbDQAtI8PupBMlGRblY78 6EHpsVgB6GRDgutHuR1FiCSOpwS jpHwU1y8M3Hp3XEJqhraz1 O7YgPrrasHO+UR76JJJdAG06rIS fuIMmb5yaoOq0QdNgYXPpFCI6bI toMSlfs8YvIHNsW72bvMFi b8M3FQOz (more content not included)... Normal [facility]/Clini c Noteon 12-01-2022 [...] step 1 diuretics. He was sent to [facility] for liver transplant evaluation. The patient [...] annually.4The patient is currently being evaluated at [facility] for potential listing.This [...] after patient or guardian consented to allow [employer] to record this visit. GORDY multi media specialist and provider reviewed before signing. GORDY: [...] 3 refills (more content not included)... Normal [facility] Comment on above: Result Comment: Elec [...] deficiency Your Care Team Attending Physician - Frances PEPE MD Primary Care Physician - JANAY EUGENE, KAUSHAL [...] Tablets By Mouth Every day Pickup at [facility]/pharmacy #6166 Unchanged spironolactone (spironolactone 100 mg Tab) 1 Tablets By Mouth Every day Pickup at [facility]/pharmacy #6143 Unchanged BMX Solution 5 Milliliter By Mouth [...] physician if questions or concerns Pharmacy Information [id number]: [address], [place] [id number] [phone] Allergies penicillins (unknown) Problems Ongoing - Any problem that you are currently receiving treatment for. ALC (alcoholic liver cirrhosis) Alcohol abuse Alcoholic cirrhosis Anemia Esophageal varices Forearm laceration Hematuria Illicit drug use Jaundice LFT elevation Lower back pain Lower extremity edema Lower leg edema Vitamin B 12 deficiency Normal [facility] CNPNon 11-27-2022 CNPN Normal [facility] AFP SerPl-mCncon 11-20-2022 AFP [Mass/Vol] 9.0 ng/mL Normal <11.0 [facility] Comment on above: Order Comment: Speci men Type: BLOOD SPECIMENOrdering Facility: [facility] Address: [address] [address] Result Comment: The test is typically used [...] Alpha-Fetoprotein test was performed using the Siemens Centaur XP chemiluminometric immunoassay method. Results obtained with different assay methods or kits cannot be used interchangeably. Performed By: #### 1 834-1 ####[facility] LABCLIA [id number] [facility] [id number] [address] [place] CBC panel Auto (Bld)on 11-20 Erythrocyte distribution width (RBC) [Ratio] 12.7 % Normal 11.5-15.0 [facility] Comment on above: Order Comment: Speci men Type: BLOOD SPECIMENOrdering Facility: [facility] Address: [address] [address] Performed By: #### 5 8410-2 ####[facility] [id number] [address] [place] Hematocrit (Bld) [Volume fraction] 36.5 % Low 39.0-51.0 [facility] Comment on above: Order Comment: Speci men Type: BLOOD SPECIMENOrdering Facility: [facility] Address: [address] [place] [address] Performed By: #### 5 8410-2 ####[facility] [id number] [address] [place] Hemoglobin (Bld) [Mass/Vol] 12.4 g/dL Low 13.0-17.0 [facility] Comment on above: Order Comment: Speci men Type: BLOOD SPECIMENOrdering Facility: [facility] Address: [address] [place] [address] Performed By: #### 5 8410-2 ####[facility] [id number] [address] [place] MCH (RBC) [Entitic mass] 34.3 pg High 26.0-34.0 [facility] Comment on above: Order Comment: Speci men Type: BLOOD SPECIMENOrdering Facility: [facility] Address: [address] [place] [address] Performed By: #### 5 8410-2 ####[facility] [id number] [address] [place] MCHC (RBC) [Mass/Vol] 34.0 g/dL Normal 30.5-36.0 [facility] Comment on above: Order Comment: Speci men Type: BLOOD SPECIMENOrdering Facility: [facility] Address: [address] [place] [address] Performed By: #### 5 8410-2 ####[facility] [id number] [address] [place] MCV (RBC) [Entitic vol] 101.1 fL High 80.0-100.0 [facility] Comment on above: Order Comment: Speci men Type: BLOOD SPECIMENOrdering Facility: [facility] Address: [address] [place], [place] [address] Performed By: #### 5 8410-2 ####[facility] LABCLIA [id number] [place] [address] [place] Nucleated RBC (Bld) [#/Vol] 10*3/uL Normal <0.01 [facility] Comment on above: Order Comment: Speci men Type: BLOOD SPECIMENOrdering Facility: [facility] Address: [address] [place], [place] [address] Performed By: #### 5 8410-2 ####[facility] LABIA [id number] [place] [address] [place] Platelet mean volume (Bld) [Entitic vol] 8.8 fL Low 9.0-12.7 [facility] Comment on above: Order Comment: Speci men Type: BLOOD SPECIMENOrdering Facility: [facility] Address: [address] [place], [place] [address] Performed By: #### 5 8410-2 ####[facility] LABIA [id number] [place] [address] [place] Platelets (Bld) [#/Vol] 97 10*3/uL Low 150-400 [facility] Comment on above: Order Comment: Speci men Type: BLOOD SPECIMENOrdering Facility: [facility] Address: [address] [place], [place] [address] Result Comment: Resu lts checked and verified.No clot detected. Performed By: #### 5 8410-2 ####[facility] LABCLIA [id number] [place] [address] [place] RBC (Bld) [#/Vol] 3.61 10*6/uL Low 4.20-6.00 [facility] Comment on above: Order Comment: Speci men Type: BLOOD SPECIMENOrdering Facility: [facility] Address: [address] [place], [place] [address] Performed By: #### 5 8410-2 ####[facility] LABCLIA [id number] [place] [address] [place] WBC (Bld) [#/Vol] 6.39 10*3/uL Normal 3.70-11.00 [facility] Comment on above: Order Comment: Speci men Type: BLOOD SPECIMENOrdering Facility: [facility] Address: [address] [place], [place] [address] Performed By: #### 5 8410-2 ####[facility] LABCLIA [id number] [place] [address] [place] CNSWon 11-20-2022 CNSW Normal [facility] Comprehensive metabolic 2000 panelon 11-20-2022 Albumin [Mass/Vol] 4.0 g/dL Normal 3.9-4.9 [facility] Comment on above: Order Comment: Speci men Type: BLOOD SPECIMENOrdering Facility: [facility] Address: [address] [place], [place] [address] Performed By: #### 2 4323-8 ####[facility] LABCLIA [id number] [place] [address] [place] ALP [Catalytic activity/Vol] 149 U/L High 38-113 [facility] Comment on above: Order Comment: Speci men Type: BLOOD SPECIMENOrdering Facility: [facility] Address: [address] [place], [place] [address] Performed By: #### 2 4323-8 ####[facility] LABCLIA [id number] [place] [address] [place] ALT [Catalytic activity/Vol] 28 U/L Normal 10-54 [facility] Comment on above: Order Comment: Speci men Type: BLOOD SPECIMENOrdering Facility: [facility] Address: [address] Performed By: #### 2 4323-8 ####[facility] LABCLIA [id number] [place] [address] [place] Anion gap [Moles/Vol] 11 mmol/L Normal 9-18 [facility] Comment on above: Order Comment: Speci men Type: BLOOD SPECIMENOrdering Facility: [facility] Address: [address] [address] Performed By: #### 2 4323-8 ####[facility] LABCLIA [id number] [place] [address] [place] AST [Catalytic activity/Vol] 56 U/L High 14-40 [facility] Comment on above: Order Comment: Speci men Type: BLOOD SPECIMENOrdering Facility: [facility] Address: [address] Performed By: #### 2 4323-8 ####[facility] LABCLIA [id number] [place] [address] [place] Bilirubin [Mass/Vol] 3.7 mg/dL High 0.2-1.3 [facility] Comment on above: Order Comment: Speci men Type: BLOOD SPECIMENOrdering Facility: [facility] Address: [address] Performed By: #### 2 4323-8 ####[facility] LABCLIA [id number] [place] [address] [place] Calcium [Mass/Vol] 9.9 mg/dL Normal 8.5-10.2 [facility] [place] Comment on above: Order Comment: Speci men Type: BLOOD SPECIMENOrdering Facility: [facility] Address: [address] Performed By: #### 2 4323-8 ####[facility] LABCLIA [id number] [address] OF [facility] Chloride [Moles/Vol] 94 mmol/L Low 97-105 [facility] Comment on above: Order Comment: Speci men Type: BLOOD SPECIMENOrdering Facility: [facility] Address: [address] [place] [address] Performed By: #### 2 4323-8 ####[facility] LABCLIA [id number] [address] CO2 [Moles/Vol] 25 mmol/L Normal 22-30 [facility] Comment on above: Order Comment: Speci men Type: BLOOD SPECIMENOrdering Facility: [facility] Address: [address] [place] [address] Performed By: #### 2 4323-8 ####[facility] LABCLIA [id number] [address] OF [facility] Creatinine [Mass/Vol] 0.85 mg/dL Normal 0.73-1.22 [facility] Comment on above: Order Comment: Speci men Type: BLOOD SPECIMENOrdering Facility: [facility] Address: [address] [place] [address] Performed By: #### 2 4323-8 ####[facility] LABIA [id number] [address] ESTIMATED GLOMERULAR FILTRATION RATE 112 mL/min/1.73m??? Normal >=60 [facility] Comment on above: Order Comment: Speci men Type: BLOOD SPECIMENOrdering Facility: [facility] Address: [address] [place] [address] Result Comment: Karma mated Glomerular Filtration Rate [...] actual GFR. Performed By: #### 2 4323-8 ####[facility] LABCLIA [id number] [place] [address] [place] Glucose [Mass/Vol] 102 mg/dL High 74-99 [facility] [place] Comment on above: Order Comment: Speci men Type: BLOOD SPECIMENOrdering Facility: [facility] Address: [address] [place] [address] Result Comment: The [place] Diabetes Association (ADA) provides guidance for cutoff [...] Standards of Medical Care in Diabetes 2016, [place] [employer]. Diabetes Care. 2016.39(Suppl 1). Performed By: #### 2 4323-8 ####[facility] LABIA [id number] [place] [address] [place] Potassium [Moles/Vol] 4.9 mmol/L Normal 3.7-5.1 [facility] Comment on above: Order Comment: Speci men Type: BLOOD SPECIMENOrdering Facility: [facility] Address: [address] [address] Performed By: #### 2 4323-8 ####[facility] LABIA [id number] [place] [address] [place] Protein [Mass/Vol] 7.7 g/dL Normal 6.3-8.0 [facility] [place] Comment on above: Order Comment: Speci men Type: BLOOD SPECIMENOrdering Facility: [facility] Address: [address] [place] [address] Performed By: #### 2 4323-8 ####[facility] LABCLIA [id number] [place] [address] [place] Sodium [Moles/Vol] 130 mmol/L Low 136-144 [facility] [place] Comment on above: Order Comment: Speci men Type: BLOOD SPECIMENOrdering Facility: [facility] Address: [address] [place] [address] Performed By: #### 2 4323-8 ####[facility] LABCLIA [id number] [place] [address] [place] Urea nitrogen [Mass/Vol] 14 mg/dL Normal 9-24 [facility] Comment on above: Order Comment: Speci men Type: BLOOD SPECIMENOrdering Facility: [facility] Address: [address] [place] [address] Performed By: #### 2 4323-8 ####[facility] LABCLIA [id number] [place] [address] [place] LIVER REC HLA AB SCREENon ALLOGEN RESULTS TO FOLLOW See Allogen report to follow Normal [facility] Comment on above: Order Comment: Speci men Type: BLOOD SPECIMENOrdering Facility: [facility] Address: [address] [place] [address] Performed By: #### L RECAB ####[facility]IESCLIA [id number] [place] [address] [place] PHOSPHATIDYLETHANOL (PETH)on 11-20-2022 PETH 16:0/18.2 (PLPETH) <10 Normal [facility] Comment on above: Order Comment: Speci men Type: BLOOD SPECIMENOrdering Facility: [facility] Address: [address] [place] [address] Result Comment: Perf ormed By: [place] [address]Pvlglisqlg Director: Audi Bundy MD, PhD Performed By: #### P ETH ####[facility]IESCLIA [id number] [place] [address] PETH 16:0/18:1 (POPETH) <10 Normal [facility] Comment on above: Order Comment: Speci men Type: BLOOD SPECIMENOrdering Facility: [facility] Address: [address] [place] [address] Result Comment: INTE RPRETIVE INFORMATION:Phosphatidylethanol (PEth), Whole BloodPhosphatidylethanol (PEth) homologues Result InterpretationPEth 16:0/18:1 (POPEth)Less than 10 ng/mL............Not detectedLess than 20 ng/mL............Abstinence or light alcohol [id number] - 200 ng/mL................Moderate alcohol consumptionGreater than 200 [...] was developed and its performance characteristicsdetermined by [employer]. It has not been cleared orapproved by the U.S. Food and Drug Administration. This test wasperformed in a CLIA-certified laboratory and is intended forclinical purposes. Performed By: #### P ETH ####[facility] LABORATORIESIA [id number] [place] [address] PT panel Coag (PPP)on 2022 INR Coag (PPP) [Relative time] 1.3 {INR} Normal 0.9-1.3 [facility] Comment on above: Order Comment: Rasta kennedy Type: BLOOD SPECIMENOrdering Facility: [facility] Address: [address] [address] Result Comment: Binta min K Antagonist (VKA) Therapeutic Range: INR 2 to 3 (Target INR of 2.5)Note: For patients treated with VKA drugs, such as warfarin, the [employer] 2012 Guideline recommends [...] al. Chest 2012, 141:7S-47SNishimyumiko RA, et al. [facility] 2017, 70: 252-289 Performed By: #### 3 4528-0 ####[facility] LABCLIA [id number] [facility] [place] [address] [place] PT Coag (PPP) [Time] 13.1 s High 9.7-13.0 [facility] Comment on above: Order Comment: Rasta kennedy Type: BLOOD SPECIMENOrdering Facility: [facility] Address: [address] [id number] Performed By: #### 3 4528-0 ####[facility] LABCLIA [id number] [place] [address] [place] TYPE + SCREENon 11-20-2022 ABO A Normal [facility] Comment on above: Order Comment: Speci men Type: BLOOD SPECIMENOrdering Facility: [facility] Address: [address] [place] [address] Performed By: #### T SCR ####[facility] BANKCLIA [id number] [address] OF [facility] HISTORICAL AB SCR STATUS Negative Normal [facility] Comment on above: Order Comment: Speci men Type: BLOOD SPECIMENOrdering Facility: [facility] Address: [address] [place] [address] Performed By: #### T SCR ####[facility] BLO[facility] BANKCLIA [id number] [address] [place] Rh Nom (Bld) Positive Normal [facility] Comment on above: Order Comment: Speci men Type: BLOOD SPECIMENOrdering Facility: [facility] Address: [address] [place] [address] Performed By: #### T SCR ####[facility] BLOOD BANKCLIA [id number] [address] OF [facility] TYPE AND SCREEN EXPIRATION 11/23/2022 23:59 Normal [facility] Comment on above: Order Comment: Speci men Type: BLOOD SPECIMENOrdering Facility: [facility] Address: [address] [place] [address] Performed By: #### T SCR ####[facility] BLOOD BANKCLIA [id number] [place] [address] [place] US ABD LIVER VASCULARon - US ABD LIVER VASCULAR Normal [facility] US DOPPLER COMPLETEon 2022 US DOPPLER COMPLETE Normal [facility] Coding Summary.on 11-12-2022 Coding Summary. CD:[id number] Ww+PGhl YWQ+OD3SGRLmG10obOSgvW9aV3O MTElOSywgQVBQTElOSyIgbmFtZT 1kaXNjZXJu IC8+LN2iQYYiLjjwsUTfd4U6nWT 3J31woy7nHQkqvPW0MWLtLsLrak dws8lndMp7PWmpVjoaSvGr NKFlmG56GQZ9uQ96Hb72kOYhsQH cn9lqrRi4BcJvIYLtQHP7lXncNU vua7IdTVUoG65cvRVyo7E0 YNMyxAzzhHPfFfSykCF6aA7yTFo gzdrpa3oshvzkHuz7st76qCMok3 C4uTW8P7LqtwP1KTWmzNCu OvdelBXNpB7oyngrf5crtjhuGuE tNYOrPAg3FYg1DLFocHcxAiFiZO 48AIC3HUVtihPhJ7ZlOYUs oNmaMvE0b3I1Lv5US2GSUfkrY9T NTUFSWTwvdGQ+WG63yn40G3VaUt emMgf1WGImLTA9aNZ5kJ5l MJOgNYquu4T0jHE5K9PyfhHlxr0 uj9sxSTPtOZplO77qwEIsz7M6YO AnbNO0JCOsfVzsYcJhoK34 Oyc+JIVexYzgy7XfKdqpn2bob8e lxMt8GvjiEKMjmqUhgKkoCMD5q2 BbDv5bBRDczHC3cSA7eF7d WcArTeC0XJbxP029QjQltWIfYvm mI94cL5EgmFX+TWTpZkl4LPUryJ uzVO0uA1HfHMQsgbdtzFJl aLisVK2gLIGkjqidHJBgkW5tGNI qF5d8JiOaAtP5IKivF5KjCWIjyh frSu52zM1aAdOfDcY0QZmt Q9AdieX0VKLgxDLeCRfyXBX4Q11 he8I4LCBlWRGfOXS9kJI3gH7tsW lnbjogbGVmdDsgdmVydGlj XNtnBBasR628ESCzvVxtPfTkBHo uZyBEYXRlOiAgMDMvMjIvMjAyMz wvdGQ+UAYyCYH0qYiiEEDu eEXqRHgqNr0dePmluDbzTX3yGRZ ksuyoFQRzbC5jJBSdtVGrdAnsXN 8hMUAjwmcdg522IoIiXXE7 BZMkvROkW2CebM6tRgUcJDApLIK cN1SwaQEgUWszX034WIrmRrX8UR ShymZzM8VkUHQhpXlfHwR6 z6H1Xy2Xf0KgjphvO7YphQPjTqS bYjoqUVg4P4DiKdljgHO+PC90YW KnAC73UAf8HKS9mTijAYur GBRfR2EqmQ3nCjIaAILzAMDjGre +PHRhYmxlIHdpZHRoPScxMDAlJy LypJgkPU8oMy8uYHVkTQRi zEvigHPoHwAml0dzNBLcRDzhJM0 vlUdaL0SgqTA3MXCdq5n6Yr68C6 7sM5OwmZO+VDMciYL1qWL7 yG6tXqOsOrT6DXyeR092TbVnrWK lEawpv4dvg6dbgGb0SlS5TOUmbt XbpSeqKDX8z7YjQn48A67f IHdpZHRoPSIxNSUiIHZhbGlnbj0 dcZ0mQq9+NHWqbKR0dKE2sH3uRo JcBiM7OBegX460FiPdyMVq Cdjnb4mpe1fkgNv6CrBtYUQmabB zmJrbDDY6j3CdCs23Q6RyqXbtp4 HtIeu3qm08iDLgp9D9qLA7 A6SoVNDnpytttMEgkWnkLH0tKZE qdyskLHUafN3xPWVbJ9k2YhBrPh C4UFbrE0PaydT1FYVccQIf UEMvsOQSfU1swtamn4lubcqzLlJ mGQAvLKn3ENi8MUBtzLdfIwOvUJ L4CaV5KGM6yEWsuC0geLje smivhD9kRiz+FNP2eRPvgULDVM7 lOjwvdGQ+ZZVsSYH9cGkqDUyyBD QdkC8aEQQsA7j7SvGpZfM6 SQuzF3EsirF7ELHxjJLuGEOpeJC LoA3gtbafo1izcpgzBmKtJSVuCJ f7HUd3RWLbxYihGtPwJOY0 NwF3PTD1vDMhhJ9djNqvgwkvgE9 wOyc+IqvfuIbvHNL9XFz8Y0XcEm u8WWFcyJqhIY3taUUgAIvp Me2nmRsmdCdzYC5yTPCbefxkw91 1WrSyo4eeNPHrjTJgBZnxTUS0F5 8eg4P7WFLoPXDjLVU2cYO2 qU9zcXeecpngcZCxdIavfqKqvKl gIJzsDPjtP272BHOksNdgUjQeIA d8J2UbGrd1LKZqmChpQV2p oHFgPTanUf8xyItenLbbFK9bSUG spwzfx307BoYnp0ruMXPpuXDrIY tlFNF8I81nx2E3MPYzJNUt TXR5lCX5lE8wxKmjfwxfgYVwvGq ctdPguRqoTVxvQCepC872YASpyU itHeTipGd0V9LeIqi8EQIa rHuuPH1mfRXdZGqqTa0lyGtrqAf bSA4pIIMsdomaj903FfOjp2rkZU MjnMWaPZtlPBK3W66um0I4 JAQpMTLpCBR5bES6kJ0saBbdwoc gbGVmdDsgdmVydGljYWwtYWxpZ2 46IHRvcDsnPlBhdGllbnQg FVwsKEg2O0RgWunuaIV+AW55PDK hUS16gNFhkIMen3maqEi3QzDiFF PbRHR9nUgzVWnsc9BvEUKk M63jkKTuw2F5YERfoFbeoZJeBlA slJQ7iJ9fMTurbldfx1lmyejqLi iwb0zxzx06dS87H89wYDhs KWCiKUMkVIQlOFJicPmqcy9kkQ9 wIi8+BJNmyNB2hBY1pQ3mOTLhNi Z3WMuuH645ChYmfODgGxhm m0yfb3aycXc9VyU5CIDlvmGxdRs sPEH6j9PvSo45W37dXCniKMQrWZ JpTKYyTQJtrRepiy2pnK1c Ii8+UKGznFV5vIC8kS6qFwRiMfE 7IOegO535IlRzaRVaTwpbS78hA3 JvdXA+NLXyAib5QQIrzHye TF9ncGIzZVnpPs5lSSO5TjNaSfV yLFfvH5OpLJUizhqjidwjdHU2WQ EnDHCdwC27Tn6qeTxnMYNi wVXZnA1jucqnj4duktnbCeRkUEK hWAa8OFc8VEZpiReiGbDbAFV7Uk U8GSY8qRNeeS6htAnjidei aP4sK5TxMADbwousOk34vK9cUnK yXuC4AAkhUud+SFVOVCwgVEhPTU ORIJl2Q4LyQbq9KWXzqJfk LN1loGSyZRhhAa1xsYjmqMewVC6 tQEWiryyzFIFrlN5uMFXlpUHfkF eoZS0fZVIgezvfw802KjJi CYB5RJNmhHHgM4AjeD4vEvItHMO lODDrA6WuoRVvVEygZ543XYenJu M3ZWXbzxVbY7BpFYWziYus XlZ3a3M0Sg4nYN9pMn8eEEbtRE9 0OR51oKNsl2G2vMZ5F3SxGZUbyk qgsecleXW9CETbOYCmvL84 yETqXPyhJm8bg4E2l985ZLHaHMV ghS19Bz1thKjnHFSetDNMvK7uwt wct3ppafjiGsSgTLUlGNu4 IDy4KZJkzDsqMsKeDMT2MbI8OMW 2pKAutC0yiNafaazvlF2fCgz+ND OfSXVbkdO4O7PdEez8IWYc bXfnNW8pzXCgTOggBn8maLzgiIr gCB8bZDIesvoqKQIchX6rGBEfqB DooMzfHO7xZINvtvluq640 UyYzOVW2OTHxrVVsO8LdiM2hTlG fMYMjUCUjC4VdgMRjFNuxE675GV xwDeF7XBPtrfQmZ8AkTHKd iSwnHdK1t9V6Hk2IZNbtLQ68DI0 5bMCac2D2xKB1K3GoIEZarebokb amqJC8BUGxZRClwE14yXMt TAunAs9ob0H2t635ZEFdBFDpdU6 5Jf9cjNbpJIPsrRXMtI3xmqahn2 rmwdmrXxCuDSAbTVo2UYp0 AHWcoYuxKtFwCMW8VnB2DFV3eFF cjB4aqBwllwicgJ0zGuw+T3V0cG D7gSGgtZjmwZY+MO14qx72 Q2DiEmywHop9WGWwXEW5gZP1nO3 oISYsYOohf5I6mKL6L9DppcSjmx 4nu3hmMOUfDUnmZ95lsKNi x6V0UVEjePZ4KSZhpEkfRwBjwT6 3Oyc+GPJcrOgob8UsGybea6ycj4 thqJb0DhJxSSXufpYjeYum VIT9x3FzEd43T94rXXloDEDlZRP dHHSkDVRbxXwtxx2qxL8yTh0+PG UngHR7dTF5oS1tNmIbPlA2 GMwbT648QoBxfVCwUhmpi6hzk5i ibOd6FsZfKJThiuBocVfmJIM1s2 FfPs12X3XpyDggm3RpWbc7 ut35xOPtr0X4oPN0T6WbENLheys rbBEfmTriAL4aENGkpailOKHgcS 8fTWNqL3m0VgTbSjF7MVby F5PyfuG8VHZyaYIpHQYqiVMVpQ7 hydwhc6rscrxpExQkPPXmFGy3KB o9SDYsmEpyLxYkONK2RjI2 ZVR0zPDdgN4ssKqwdsmfkT3yUop +PNn8g6sqfWRtDC3ldCK9JQ25TD 69iHBzc8I2wCB1L2DkUMKf xnxhlqplwRH4CFVsKIZwrL46Ak0 xyCejEu1lEPOaWNT7FZMjeZWvA1 IfyR9sYtRbEUDvFTCzV2Ua wMQmVNhbT788LDoqZtG5BHFsslY nL2YtLONtzZfzNdB0x3Y7Pr5NGX 55EU46NT02zFRmw5W0uKQ1 U8WnTKXizjvpwrybhTT7DDFoTDT duX78Aw7dbZycWh3sNYVlBRU5ZX YptCSxJ8IirG7iNhNaODZu JDXqC5BkgIGeZNjoF687EOucIbE 0UTDqqfYhU0CgULFveJkrAvJ8r8 B9Fc0NWx45QD13MH83tYWx m8G5pYI7Y1OhIURtphfpssfmuWL 4MLKmIOWjqV23Xe3acUnnZf8uTC KhGZJ3LNOwjQUfT8RuwK4z DwWkCGBxNVJaD0XbjNGzGZxgZ07 8OUprTpV7GUPctoBqI3BzDYTjzK bbPxM1s8B4Sz7MAMlkdav4 Y1YjZaoefDM+EM82UUUtTG60lGN lpFSpk9yibSk9ClKyRQYdYRV2bI ebLIsvn1UiQKJpT07snXSy m7T2SIQj (more content not included)... Normal [facility] US Abdomen, Limitedon 2022 US Abdomen, [...] DO Transcribed by: LILLI Technologist: HW Normal [facility] Consent for Treatmenton 10-22 Consent for Treatment [id number]:127 Normal [facility] Lab Miscellaneous-LCon 11-04 Lab Miscellaneous COMMENT Invalid Interpretation Code [facility] Comment on above: Result Comment: Test Ordered: [id number] Phosphatidylethanol (PEth) Phosphatidylethanol (PEth) Negative ng/mL MX Reference Range: NEGATIVE Analyzed compound: PEth 16:0/18:1. 7-itjglcnsr-3-wmlrwv-af-xsuhebu-3-phosphoethanol. Analysis performed by Liquid Chromatography with Tandem [...] developed and its performance characteristics determined by [email or web address]. It has not been cleared or approved by the Food and Drug Administration. Performed at: [facility] [id number] PhD Arcelia Banegas Performed By: #### 1 [id number] ####[facility] [address] [address] Coding Summary.on 11-01-2022 Coding Summary. CD:[id number] Gh0bWw+ PGhlYWQ+VI1ELVTqU26fiFDxrH5 hL2FSWIlPOqylSTLSASlMKxXxrr DqDE2tmJSjIXRv IC8+TE8vEFKlCjdyyHAbk3H8hQB 9H75bxt4cRAhkuEV9UTEsMqSoms gyy3vlaRp3JPdbFhpgWvQl AJCuiZ13USD4tB88Ac15hTUtoSI am7skmWz0PtMhHABiTLX4pCeqNX jfi8GaQUTfK78frTUyo0T3 DNSviHdqbNWgQwRvaIG4iZ2yPDy yoklve3vuxulcLvw2jo03fOLky4 E9lGW3B1VirmQ1DRJmtJDc LnwktXKVoV9ldcwvc1ewsxikLvN pLRTpQGh3JWt9NCXkqCmvSnAlRF 34VOO3GXCehuOpB9QaJKKh qEboUrM0q8U0Er7KF5SNMxkfB4W NTUFSWTwvdGQ+FX06jy42W2ZySv xxQnh2QFVcZEB4jGP1lN5b NAVbMRkjd6I4gBX3X4SghfPraf7 zk7ltGHWxQAhhX38jxQZnt2U5RE WnqVG3JJFacYxqKzEbuL33 Oyc+FWWhsMnwy0HxWpdxa3woj9u epVp1ArmcPZFupqFkqEcfOQN9g9 HaEd5mJPCvpMR6lOI2mL0k VlGhGxH7XSgvG048PnCkrAMhPfi cS77eG1WnxDN+BGQlHim0ASYvzR kjCB4mE7ElAWTlzqfidWWa rWdgTK4hVXWqdvnqEXCfzB8tCTF hQ4g6YaXjQrW8ITxdN7DiDXCnzh mcWj75aL5dPfXxClC9FPsd T1NmexM2REOtnYDfYHsnXES0Q78 tb6H7YXEfUOUzAAA2jPD9xS0ttT lnbjogbGVmdDsgdmVydGlj HKmyTJqcF591GHGesImqQcUjBOu uZyBEYXRlOiAgMDMvMTEvMjAyMz wvdGQ+LISxLEK3kVbmDEEg iHIeGZxnOd3rbIxlaLiwQE5hLUH dlplhUTPpdZ2bWDWncWUgcAabNK 8eMEBzrooax199GcKhKSM0 RSIrsPFdZ6UdpH0vMnInZJFtHRT cA5WoaOXqFAoyA391BIvbBeR5QC NkcnVhM4AcQSMioBcwLdN3 u1C6Xd9Dg8KerwzgJ5KzsKFcCwL vBkvaOPt6L9LnIsnuzSG+PC90YW AbMW52TXn4KWC1qUncPJan SUQxK0OouV4rEiUhSUAzJMEoVci +PHRhYmxlIHdpZHRoPScxMDAlJy EdwOasJY9nWe4qWWWpWGXz kGnudQLxVxOyx0gpYBSrARsqWF9 zdTzsZ6QxbZY3HUFkq5l9Dd84C3 1yE7NexYJ+XVEjnNU8aTI8 nA5kGvBoOlD6AQdpM611MfXnaCA wBwfsz1joy4vhkVc5DkF9HLXduw MpuAfgVVX3l6NgHa30I69a IHdpZHRoPSIxNSUiIHZhbGlnbj0 ckF5iDo1+ZHTitVO5wOF1aD7qGt LmMbF1EZvpQ454GiYmsIJr Mohdf2vlt3zqkMz4HzIwUNGscuR rzQqkKUY4i9QeAj62R1IwmSgth2 TvKob2bk09kSRuq2F2bAO0 M2RzWRNbjgikiUUzzYpnOS3rOYB vhandPAVaxZ1nTMUvM1u0CpQhEc T0EEmdJ7AmmpO6JFYnaSDs RNNisSVLkU4atqrjm8xvwydcGdQ xOGHwSMj2USw7UTCakHgfNxGsNZ Q3EmW5CUB3yTWtfM6kmGuq fkvmhC0wNqb+YQM2wOTkdYHGHM4 lOjwvdGQ+WQPzIHJ9uWsrSBqjFM MvjD1yFDHpC9v4QeRxImJ4 FDktV5ZxhfT6LZErwQThQLVxcSI MxG2chmpkz0dogcwjVzCrFFGsSD p4CAk2KSWkxNrsMdEnGMP8 XsD9NMS8dYJmrC3vrFgpbxynbO6 wOyc+HhxfrQxzYKH8WCk1I1KzEn a6ERUpwJlvTO8trMRhHSgu Xf4woOlzoXyrQQ8yPJQxkdvig57 2WoVty4ulLRBbeKDfDEocPFK9Y0 9jn9H1REYfMCRwVLG1zVI2 vK4eoJenmzgbzRMszPtlexSwxEh hYNvaBJnfG284CLQqkRblMzYtQZ e7E0BnFgs2LLEvmVoaPW3w jGAcSFxtCr3vjDbkvIgaAP6fKCK yjctrz497UxIeb0jjNSTjqIQoXD ixJJV4M42ga4I1QCCcYESe CJQ4fQO1hW9ihOfhleeusLJroJh vdmPreFfqYLrsWMspA283OWCpuV dlEiLrrBj7J1RcAsw8EEYg yPizED6rgQViMAzzVl1egEwnjGq cXB7zTVWdyrbmd295XuVtt4rfOS EycWNdDBzjUUL6P54pg6U6 IEQhBMPxVWP8xVE1oK6bhHwuajc gbGVmdDsgdmVydGljYWwtYWxpZ2 46IHRvcDsnPlBhdGllbnQg LGsaOZy7S2MsNmlrfXF+HS84UHD eLG66wTJioANwe0bvpFj1HiTtCA XtPYP5mRqvFGiog5XvCKDm Z64qpTDnn6U3HKUddSnbmLHmUbX kaKZ4cY1vPZuzlqmvi6kgetliQv gjk8aupn15zX14D13hTLjf FRXvMMBoFLBpJYBzkWqgkl4auW0 wIi8+PCVzjHT4lWC1uS6gDUBeWb C1QDviB332RtQwrQOyFqnv b7zan6vtlQa4AdN0LYYkszYyaLz mIGN1g1IrWd43Q72fRCagZRLtGN QoKTKhIMSffYkakf0vxQ4i Ii8+BFCdcCL1nZS5iY3cFqGbLzI 6BKdvM135KdGmoNAsFjwvV98cZ6 JvdXA+NFMtWpm0LAFliBsu QZ3agOUrQQhmFt5yOYA9MkAcFhS zLWbfN0WbJXPnwyqitlhsqWS4SA QuRBCuzF00Ql6guBqmNTXg hSOIhE8bglqra3bbwdlkVrFdFFT iHEo8AXi3JRKyoKhtNuEwARH5Fr T8BQF8qDRqgO4aqDvgcwjb oB2lG7UfHUChleydDb97pU5sNgR oItY5KGihNnu+SFVOVCwgVEhPTU SIRZt1J0CvPin0KOGdaOcx GA0rsTKgUDfhCi6kfAocqQfkJY1 fVCSplqctRNCimG5lCLDjmEIbwF ftBO1bPLYsuanzh250OvPu TMV5ZJNroTSzZ4QpiB3bLjGuAEA xTVQtV1HroJZwUVadV753XQugOk K2MTXlriGfH4KvQECzxIic HwM6y0O7Ju1gLX0kYr2yGUhkZW2 2GO16eIGpe4D8vJG7F7YvIRNduk rjohlnpRR0VRTgUPJwiB65 mVHdDJtcPj2zy1V3g270HKIcHHN pqX54Ex1buPiwASXjvBCYtA8pqw iov4tdzulpBhMkWUKvITa9 EWa8FNLwrUerUnCmIZU3FbJ4WYE 7fHAmdQ0xyOroivkcqB2dFfu+ND RhVJSrcfS1A6BgRck8FQSl zGoiZH2fcMQdMHncCn8dxIbejXz jHA1qUCWhbvgmPQNvcM6zFLLsgR XsnPlhXH4xALEaoltcs469 MqOdLGJ6NMIpxSTzW0NcfP7yQxF oLWKkVGLyZ2YcoHLvNSdhR869XH zfTpG0LNRuxeAjX0FwEETk uMpsXpW0e0Q7Fe8KBJagSK29MM0 9cKUjl3T2nQS1A5RzZUMpixepsa cbcVS0DZVnHFHjqL64iVFk NZkmSh1ef6O1v007HLWfIMTnoR2 6Ls6qsBqaIZGtzMTEbM3vlsega5 nrvoudOmIdGMFgSNa0BEr1 WAHpdMpzEzEoFYX5TrR9VDJ2cSO wqJ2awWlqsdazgL5hHzg+T3V0cG T1kOZguFusnBE+FA77uf51 A4XkXgtgNkv4ZTFlPDL8gKS6qY8 cDARwROdfz1O5dWV7X0TuswPalj 1uf7lkMRQyYNugI69kuQOj f7Q9MFPgbAS2TMYagNokMfCauJ2 3Oyc+XYSxnKxuz6OoVpihq3abi7 vzvRt7XxUkZQKxgtUylKph QTR7h7QjTo12M90uPWnxTEDmCGS vKYLqOVLgtZmzhl1cgB1dKw5+PG VxpYY6tLQ8vR4oYjFzXkK4 TGaoO125ZgEbnGWwYjazg7eav2b aeGc1VhYbLZNkufVenRjdFGI4i5 XrCz40T3CixAbrm8DrDsg2 gw27qSOfw7G8nUW2U5GoTOUhgou qsYXlfZsvPB6iYSQtscfuCHHcyA 4aSXTaU1x7XfTjWtW9LGyz R6DdnkW4RRCyhHWoFGGlyDGUlB8 woktqg5klczpoGhUmUIFwUEp2UA i8NEIdmUhkPsBzLCN1HpQ7 EXO0vFLcqM1aqRwuthuevF4bRoi +VKr1j6rzkPEoLF3xuYH5OA05JD 06nQCfx0P4mPH3S6XxLRPg wowimlmhwWX6FADjNGEnvD26Dl6 mvUtlNy8sWNAdQAQ5CMYivWJeN7 ZrsB1yHlAaUVWtZKEzP1Re nWEnEBoxG867HGmrLoO1PKJsqxV kC4HkNOSeeVhoKnD2e1L7Iu4BCK 40DM00NM77vFRop7H0iFS6 Z8RpQMAumluhfqzomVQ2VNWoMSR qaV30Ql0ceQdoFj8yTIMpZVP0NW GarHVrS9RlcO5pYrArCLNm YMYwN0DoaUYhANcpD545TMstClS 3FPLghqZjX7QwJSOixUvrJbP3g1 Y7Xt0VDm45IC35BC91eNMn l7Z8cOU7D0YsTNJpmcwedjvjmAV 1QZBfXCAgyV19Um3tpVtdHw1gRP MkVRO5FCJubUDlA0NugV7r AmDjDGUgYGZiP2VagZQwFBaiI98 0JFqnJzA1SKLuetPnU1SqXXWttM ooRzO5u6X5So3DSCqavdr5 V3KhMfbroOS+XX05LAJxGZ53yGC eyFGcz8cayNw4UuSaKNBuZOU2mY gmKPhpy4OoHIDkU86feGJe c2U6 (more content not included)... Normal [facility] Coding Summary.on 10-31-2022 Coding Summary. [id number] Gh0bWw+ PGhlYWQ+BK3UJPXlJ66uiGLixP6 qE6LAHNoKEllqNNCATYvFIkUowh YoQQ7nlZRoPGIm IC8+FJ6mGDRsInzdgDOxg5F2cSX 9P77mjj1rNAajgYO9YUAkAeYzvo hmw3axwZo3EHmcPxnhYlHc UCAfrB13UCN3sD49Sq04jLAqeJN oa7talPp6WsSxPEXnTCX3hHimXJ vho1UcXKGcV30xyWPso9G6 JOGeeEgnuFHcNeAygBM4yT3bFJo iwcorh0cdchfiSqo8ib17uDNff9 Q9sSW8C2FxivK3RYCtcNNa NfclvCTVsB9buojxl7pdjproKiT jPTVcLKv7VAy4KVKvzCluSvNvCT 19KKB3SBSvrlMqY4ZbFCCd zVehMfX4s4B1Jj7VK7SVZxmvF7O NTUFSWTwvdGQ+CC99zg93X1ZcQc kgMrb2SHQtGNS8kYJ7nQ9x YCJrECeml5B4fGA8A8AgrhYqwr3 jn4sdMRVvKFfeU04huOJsk6S5WF GfcYU2ULRqwIyqQuUmoO64 Oyc+MVMtbEdio0UsIqvuy5yxo8b xwNu5YbjdSPAyxhTfuBseZXK1a8 GfZw2lWJVhnUX0eJQ0rS9y NfXgVcP1EKmiL468PcCbuNPvPgw oL16nB7ZjxTV+LTFdCda7GAWjxY ijAP4yD6OwWNLcdnkxdTKf cNywSN4gNMQlloznTLIcgX6kSGA iL8t6JvGrOeH1FDngG7ByVAXnvp qxSg57xB5tGmExOqI5TIlf U5EgiwD0XWKcoYZkKDhlGTL6D74 as0T5CVIcORJkNSU9sUO2iZ4poL lnbjogbGVmdDsgdmVydGlj FFxwZGedD157GLWraMomSoEkWVh uZyBEYXRlOiAgMDMvMTAvMjAyMz wvdGQ+VDXpZXS5bKqiLTDj aLSgQPhtDk4onEhsvTovCY4wWTO puzdfTDLkxH7bHQCngOMtkKqyEK 7zAKPebnxdt944CvOeIQF0 PQIwzOXrC4RomK2zYpPlWMKlLIC hI0NpfJTcWXseO233QKdnSpI2JI XukeQuZ9ZrHLRdcPfxYnW6 c4Q8Pe5Nh6LikwcvY8LbpONwGoX aXtyyLVm1J2OwBmaebNZ+PC90YW JqWJ65WHi8JHI1lEvrLImm IIHvA6XbhR3hCzRjZWKwGGCqWff +PHRhYmxlIHdpZHRoPScxMDAlJy HuuNurMB2pUg8iGZZiDLJc nUaztCZcYjBvu1phOFItBBwwWI9 alElwG0MhnYJ6KOVsb6a0Xj63Z5 8gS4CrgEN+QWFeoTM5wXA2 xM8mWdDrYaI9DEvsQ098MlRpmXC jKpthg7zdj8udwMw2JaU4TPHvho TlwXqfHBV8e6VtOk48B34d IHdpZHRoPSIxNSUiIHZhbGlnbj0 stK1iZd7+AUCdtNC4oKQ0jE7uWx HuGyD0IJorU655YjYicHUi Eetns9qpr6bxsLq2HsEfSUVorwU pfCqpKEC5j6NxOu21H1XofTilr8 CoMmz2qf26iFJld0L0xYR3 Y3WuAELoagohoSOomDhxXT5iVLS hldncDJGrnY6pXARqF5v7HeZyYj I8PHstQ5VvtbB3WXWbiXMi LGXeyGQAxD6mvxxkj1wcasjgRlA wALFyFYt6XIn0FPCfpXvxXvDaSJ T8NcX6UBL5cZBceV1qhWqr zrrdmC9iFck+BHP5iOLogXYQPS2 lOjwvdGQ+KFWcPNI9uCnlQWhuLU CuwP4sLETyR0y6BbNpVoR2 WWrhV0SrulS4QYMiqRYcJLZmzFX UeR4ngsssa2halgzcSnBzOUMnEC z4ROq8URDgoOxiWiWxJCV6 AoX9YHD1gWOngH3iiDrlshjogD4 wOyc+OloxmWieDIX3AJt0Z2SuIk q3LUSqlDztIB1rjKBlWRjx Fo3uqSsejFsuVO3vFCKjccpta41 3EmUgn4hhSZMriDRgNUbvPKN4P2 7tc8J4HHGlEPWrRLT1iBE6 rX0ijZsodztrnHXelWipalVteDt dRWrfAUxzQ583IQUkfRktOiGpIY l1C6RcIpq7RXZuwBcfOB4s uQSpHEnhCs6acSuzgXnlJO1wUDQ xkiifm534HyDig7srSWIerNJjHE ikRSW4X96nk3L8OIZkQPXm RVQ2mCS5gG3zzRhbbwoszCIjyDq puiWizGfaWVfcQUulA676EDVwxE zcFdSzaVl7U3ElHoc6LYZi zNvuZY8hqLMtMPsnJe7dwYxbvYv eBV7gHYYednkny170AkVyx3nuEZ GtsSJrWXnpTVF0A91rb3U0 OLQeSJDdHZC9fTS1jA2idRvezju gbGVmdDsgdmVydGljYWwtYWxpZ2 46IHRvcDsnPlBhdGllbnQg MLfvACt4D5ZaQupmkFC+LK17HIP kRS41fXPvfMNwq2ketNp7QfPvLE LbEJQ7xEcgSTkmx8UrMRCd R79lxWDya1L5EWEhaOocrZLcHuK cqEZ3yN0gRUyvofiit4pcchfjIw ezu0fsor25jM96N46gEAuu JCYqTUIhSABgGYFyaDvaki3stZ6 wIi8+NNQwkMI6yBO0fK7rNLFiJu D4TWphM651EcCylZEiRbqi y8frf4qrkIv7VnZ5VMPajxBksUz oAZR7y2FsLg18E34iTNncFUAjCE KtFTOhFBTwkXadzt2haN4v Ii8+ZUNtcTN0yGV0rW0tXjAtXcN 1IPlvU750JjSnpLIvOvsiR92yR7 JvdXA+PDOdEre9XMUodIhc BX1bhKYwCPotGs8mSOJ9RtDoMuZ iNCpyI7MjELMmlqvrzhcnpJY1MA TrAIJpwT64Nc0uzChjNVWv eEWWkF9zfmxhl7sspgnsOnHiOPO zNSh8KZt9BKDciLrxYtMdZOJ4Pz L6SBM6dJBqoR7dwNuhkhyf yF2nX6IxKJKpkkciHh31bZ0xDeK mSfO9URnnPse+SFVOVCwgVEhPTU UJNLi0R2PuFrn0DYGcvVno IF4rpPPjMRcjLq2oyXdvwVajUX5 zZIFhwbbxGXPdxW6vNCDmnHJtrK svZO7kOALeejzfc233KcYz TDO1YJEsyIJsR6DfsY3pQgQqURN tVCOrF1CweUGzTImrZ142EBnoJg J1CJUuddLwA0GsKNZncFmt ThX6a5W8Hp6eNJ8bAe6zWDxuMH9 7ZL94tCTxw1J1nYN5W3GfUERxca arxgqygDG2GGJvNMIbwS95 fPGdTJjqYq8hd1B0s576JMZnHXB caJ52Ci8okPnyGWFzdDDSsJ7xtz wfk1rifqwzNrNnAPBtMCw5 BSa5HFGtnZdwOkDaPWS5XfR8ZSL 3uPNdeE5mvYfnobasbB4xAxn+ND IlIEPlvyT6D0IgGgm1XYRt fBojEB5vhWGbFJshCq8heDfmeDz dQU0dWQHyppttYMTxqF2hYPVprP TizNycVZ8pJEAajmbni331 NmUaDMQ3BJOpkCCoT4CmbD5iJzZ qDIYiLAJdG5TfgQJqASmjN504LP bfXtC5SZEgppDeL1FgXZXg iUkoUfE6a8J4Sw0MUNjwBB69BV3 2wGGbk8P9uCN3D8DkTFNxkugytv mpfZZ4PITfICOcyN42fOMl NQgdOj4ie0R2u476MLVmXUBmoL7 3Jr1wsZnvLNFetXUDjA0wrhkpg4 raeeypVwEiBIPePNq8PXz6 CJGpaIqhIlBsRCF7QwB8ASM5vDL sgA9goTviqxdruH2xMey+T3V0cG X8wEGygSxpbQI+JE40gj17 X5TuLadfJon8CUNsWLS0iJT6eK7 cHJBzUTeun3Y8uKU6W6RtfhVomp 6cg3uzAZAcLVvxL47srMWp q2X1TJZqeBD7RZOgaEpdSnDjyG6 3Oyc+BWMkyHsrh1NoDqjux4vou9 zrtMk1PgUzWZFyjoFjkIot IOI1i3QhQk14X05aWPriOHKqZAC yRTUkDPKrjSfnfk9uqM2oUv4+PG YclOR5qYO7hQ4kXiFxIiB7 XVskN811SuNmqWUgVnxkk7xmw7w zmXj2UmUhWKAagxYehQagQTZ6x7 LcJf17V6OikSqap5UgDcg8 xc95lQLdb7G9jLF3C9AgGRBuxsd xgGRwpLiaSP0kQQYmlxjvJQXvsV 5mGYWmW2x7KiBhZoZ2CDye Y4WdzqO6ZNPljLVyPGHloTQVjN0 hymeci4qckatlHsYoEBNlIHv9VR w8IUQkgVpoFwSaNCG1LqF5 EOH5lWQpmN4qrOwtealsuJ4rKet +DQe1z9imrHShDK3twHV6XP74PW 74vPDmf7J1zIM8F5JhKDCq gfvnukbipUB4LZGfWQGgsA11Kz2 hhGxmAz2lWKUvEFM3BPEhkXEbX4 DuvW1eTdIhMNWlWILkT1Tg xDUyHDdgS127SXyhOxK3WIHmtlE sA0PgBRRxjYipKtV1l0D7Bf8PLM 38AC86JJ32nIExu0E2aXY4 T5DgMONofytfagkapTO7OHGjXIW jkM51It6mpHwoZi5rSGWrRLZ7HE SdhJBsY7BzyG1nFhIaKUTe PSVsL9MkuUSdCPpaY156PCrfAmW 5PQRvssTzF2JsSGBtpUvcIxM0t8 G5Xt9HPb69HL13QT30nVGc l8Z9lTS7A9WpOHMfnflfdjrqrMP 1HXChSUPqyS70De3fyTwoKr1vFZ DqJHV1WSEieBQxH6JnsE7q FuUkJJDiOECzX1IfeDErTZevF70 7SPaxKoA0ZGLpuoZwX8FyFITtpX uyVoL4y2J3Xo7BZWauycm9 P5AcHypssHT+OK63XCDxGN94mYX ioWTct4fgbIr9VoVlIXWmGIN4rK biWLlbj0GkTQUmR05aiDYy c2U6 (more content not included)... Normal [facility] Physician Orderon 10-31-2022 Physician Order [id number]#[id number]:127 Normal [facility] Provider Letteron 10-29-2022 Provider Letter (Inserted Image. Moni ble to display) October 29, 2022 KATHY HAYNES [address] [place] [phone] KATHY HAYNES 1980 Dear Kathy Haynes, We have been trying to reach you with no success. It is important that you return our call regarding your lab results upon receiving this letter. Also, at the time of your call, please provide us with your current information. Thank you for your prompt attention to this matter. Sincerely, Chinedu Sethi, [facility] ([facility] [address] [place] [address] Normal [facility] CHEMISTRYOrdered By: SYSTEM SYSTEM on 10-28-2022 [...] mg/dL [facility] Bilirubin.indirect [Mass or moles/Vol] 4.5 mg/dL High 0.1 - 0.9 mg/dL [facility] Globulin (S) [Mass/Vol] 3.5 g/dL Normal 1.4 - 4.0 gm/dL [facility] Protein [Mass/Vol] 7.2 g/dL Normal 6.0 - 7.8 gm/dL [facility] Consent for Treatmenton Consent for Treatment [id number]#[id number]:127 Normal [facility] Hep Func Panelon 10-28-2022 Albumin [Mass/Vol] 3.7 g/dL Normal 3.3-5.0 [facility] Comment on above: Performed By: #### 2 [id number] ####[facility] [address] [place] [address] Albumin/Globulin (S) [Mass conc ratio] 1.1 Normal 1.1-2.2 [facility] Comment on above: Performed By: #### 2 [id number] ####[facility] [address] [place] [address] ALP [Catalytic activity/Vol] 103 Int._Unit/L High 21-98 [facility] Comment on above: Performed By: #### 2 293687 ####[facility] [address] [place] [address] ALT No additional P-5'-P [Catalytic activity/Vol] 26 Int._Unit/L Normal 6-46 [facility] Comment on above: Performed By: #### 2 455411 ####[facility] [address] [place] [address] AST [Catalytic activity/Vol] 51 Int._Unit/L High 5-43 [facility] Comment on above: Performed By: #### 2 770325 ####[facility] [address] [place] [address] Bilirubin [Mass/Vol] 6.3 mg/dL High 0.0-1.1 [facility] Comment on above: Performed By: #### 2 076873 ####[facility] [address] [place] [address] Bilirubin.direct [Mass/Vol] 1.8 mg/dL High 0.1-0.4 [facility] Comment on above: Performed By: #### 2 251449 ####[facility] [address] [place] [address] Bilirubin.indirect [Mass or moles/Vol] 4.5 mg/dL High 0.1-0.9 [facility] Comment on above: Performed By: #### 2 626058 ####[address] [address] Globulin (S) [Mass/Vol] 3.5 g/dL Normal 1.4-4.0 [facility] Comment on above: Performed By: #### 2 126910 ####[address] [address] Protein [Mass/Vol] 7.2 g/dL Normal 6.0-7.8 [facility] Comment on above: Performed By: #### 2 860165 ####[address] [address] Lab Miscellaneous-LCon 10-28 Test Code 705099 Invalid Interpretation Code [facility] Comment on above: Performed By: #### 1 [id number] ####[address] [address] Test Name PEt Invalid Interpretation Code [facility] Comment on above: Performed By: #### 1 [id number] ####[address] [address] Physician Orderon 10-28-2022 Physician Order [id number]#[id number]:127 Normal [facility] Reference Laboratory Testing Ordered By: Estelita Reddy on 10-28-2022 Test Code 147110 Invalid Interpretation Code [facility] SendOutsSS Test Name PEth Invalid Interpretation Code [facility] SendOutsSS Auto Diffon 10-23-2022 Basophils/100 WBC (Bld) 1.1 % Normal 0.0-2.0 [facility] Comment on above: Order Comment: Order Added by Discern Expert. Performed By: #### 1 1706212, 9198714, 4888458, 9443042, 8546814 ####[address] [address] Basophils/Leukocytes Auto (Bld) [Pure # fraction] 0.0 E9/L Normal 0.0-0.2 [facility] Comment on above: Order Comment: Order Added by Discern Expert. Performed By: #### 1 6502845, 2984760, 2972924, 4453402, 1805282 ####[facility] [address] [place] [address] Eosinophils/100 WBC (Bld) 2.8 % Normal 0.0-8.0 [facility] Comment on above: Order Comment: Order Added by Discern Expert. Performed By: #### 1 8920616, 2905505, 5405898, 1671063, 1580026 ####[address] [place] [address] Eosinophils/Leukocyt es Auto (Bld) [Pure # fraction] 0.1 E9/L Normal 0.0-0.5 [facility] Comment on above: Order Comment: Order Added by Discern Expert. Performed By: #### 1 8040756, 2143059, 5738388, 6011849, 9968990 ####[address] [address] Lymphocytes/100 WBC (Bld) 23.0 % Normal 14.0-50.0 [facility] Comment on above: Order Comment: Order Added by Discern Expert. Performed By: #### 1 5926374, 4028027, 8926273, 2279283, 4453756 ####[address] [address] Lymphocytes/Leukocyt es Auto (Bld) [Pure # fraction] 1.0 E9/L Normal 1.0-4.0 [facility] Comment on above: Order Comment: Order Added by Discern Expert. Performed By: #### 1 9713157, 5259642, 3847100, 9735407, 5664698 ####[address] [address] Monocytes/100 WBC (Bld) 11.8 % Normal 4.0-14.0 [facility] Comment on above: Order Comment: Order Added by Discern Expert. Performed By: #### 1 4154723, 8123859, 2410488, 3902976, 5182593 ####[facility] [address] [place] [address] Monocytes/Leukocytes Auto (Bld) [Pure # fraction] 0.5 E9/L Normal 0.2-1.0 [facility] Comment on above: Order Comment: Order Added by Discern Expert. Performed By: #### 1 5878667, 2725343, 8817978, 5325369, 3410579 ####[facility] [address] [place] [address] Neutrophils/100 WBC (Bld) 61.3 % Normal 36.0-75.0 [facility] Comment on above: Order Comment: Order Added by Discern Expert. Performed By: #### 1 2522904, 8326740, 4126269, 8760279, 5644820 ####[address] [place] [address] Neutrophils/Leukocyt es Auto (Bld) [Pure # fraction] 2.8 E9/L Normal 2.0-7.5 [facility] Comment on above: Order Comment: Order Added by Discern Expert. Performed By: #### 1 2234434, 8704685, 2485880, 9183115, 3353622 ####[facility] [address] [place] [address] BMPon 10-23-2022 Anion gap [Moles/Vol] 9 mmol/L Normal 6-16 [facility] Comment on above: Performed By: #### 1 5505858, 3110955, 3750935, 6760902, 8524621 ####[facility] [address] [place] [address] Calcium [Mass/Vol] 9.2 mg/dL Normal 8.9-11.1 [facility] Comment on above: Performed By: #### 1 5199877, 4896655, 5183849, 9281990, 9489705 ####[address] [place] [address] Chloride [Moles/Vol] 98 mmol/L Low 101-111 [facility] Comment on above: Performed By: #### 1 9046892, 8303504, 0203959, 6808703, 1273886 ####[facility] [address] [place] [address] CO2 [Moles/Vol] 28 mmol/L Normal 21-31 [facility] Comment on above: Performed By: #### 1 1465471, 9463226, 5454543, 0128321, 0925030 ####[facility] [address] [place] [address] Creatinine [Mass/Vol] 0.9 mg/dL Normal 0.5-1.3 [facility] Comment on above: Performed By: #### 1 2639555, 5324540, 5588475, 9710904, 1483465 ####[facility] [address] [place] [address] Glucose [Mass/Vol] 115 mg/dL Normal 55-199 [facility] Comment on above: Result Comment: If t his glucose result represents a fasting glucose, interpretation should refer to the following reference range: 55-99 mg/dL Performed By: #### 1 8775980, 1078063, 7833623, 7514016, 9045705 ####[facility] [address] [place] [address] Potassium [Moles/Vol] 4.3 mmol/L Normal 3.5-5.3 [facility] Comment on above: Performed By: #### 1 5784938, 3054506, 9845566, 5106005, 6645182 ####[facility] [address] [place] [address] Sodium [Moles/Vol] 131 mmol/L Low 135-145 [facility] Comment on above: Performed By: #### 1 2828518, 5067515, 7399374, 7281292, 7280979 ####[facility] [address] [place] [address] Urea nitrogen [Mass/Vol] 11 mg/dL Normal 5-21 [facility] Comment on above: Performed By: #### 1 5330649, 4580012, 0880187, 8714553, 2989644 ####[facility] [address] [place] [address] Urea nitrogen/Creatinine [Mass ratio] 12 No Units Normal 10-20 [facility] Comment on above: Performed By: #### 1 7417642, 6104590, 3457633, 5870163, 1438169 ####[facility] [address] [place] [address] CBC w/ Auto Diffon 3 Erythrocyte distribution width (RBC) [Ratio] 14.5 % High 10.9-14.2 [facility] Comment on above: Performed By: #### 1 3557211, 5122024, 4102278, 4309306, 6573487 ####[address] [place] [address] Hematocrit (Bld) [Volume fraction] 38.7 % Normal 37.7-49.0 [facility] Comment on above: Performed By: #### 1 3195749, 0403775, 7153089, 7121750, 6375687 ####[address] [place] [address] Hemoglobin (Bld) [Mass/Vol] 13.4 g/dL Low 13.5-17.5 [facility] Comment on above: Performed By: #### 1 1509996, 9864379, 3444194, 9423380, 1040449 ####[address] [place] [address] MCH (RBC) [Entitic mass] 36.1 pg High 27.0-34.0 [facility] Comment on above: Performed By: #### 1 4354851, 0008988, 8644995, 2770453, 6015378 ####[address] [place] [address] MCHC (RBC) [Mass/Vol] 34.7 g/dL Normal 31.4-36.0 [facility] Comment on above: Performed By: #### 1 7802561, 6382925, 2720984, 8963742, 2578252 ####[facility] [address] [place] [address] MCV (RBC) [Entitic vol] 104.0 fL High 80.0-100.0 [facility] Comment on above: Performed By: #### 1 3973781, 3837213, 7741235, 5693957, 7359001 ####[facility] [address] [place] [address] Platelet mean volume (Bld) [Entitic vol] 7.3 fL Normal 6.4-10.8 [facility] Comment on above: Performed By: #### 1 6065480, 6602181, 1521447, 9621523, 2274042 ####[address] [place] [address] Platelets (Bld) [#/Vol] 85.0 E9/L Low 150.0-500.0 [facility] Comment on above: Result Comment: Plat elet count verified using smear estimate Results Verified By Repeat Analysis Slide reviewed by BR. Performed By: #### 1 5829413, 6026923, 2794211, 5220680, 2170596 ####[address] [place] [address] RBC (Bld) [#/Vol] 3.7 E12/L Low 4.3-5.9 [facility] Comment on above: Performed By: #### 1 3199079, 0453494, 0438528, 0364370, 8230263 ####[facility] [address] [place] [address] WBC corrected for nucl RBC Auto (Bld) [#/Vol] 4.5 E9/L Normal 4.0-11.0 [facility] Comment on above: Performed By: #### 1 5832450, 8430399, 3848496, 7133255, 1449348 ####[facility] [address] [place] [address] CHEMISTRYOrdered By: SYSTEM SYSTEM on 10-23-2022 Anion [...] rate/Area] mL/min/1.73 m2 Normal >=59mL/min/1 .73 m2 [facility] Chem S GFR/1.73 sq M.predicted among non-blacks MDRD (S/P/Bld) [Vol rate/Area] mL/min/1.73 m2 Normal >=59mL/min/1 .73 m2 [facility] Chem S Glucose [Mass/Vol] 115 mg/dL Normal 55 - 199 mg/dL [facility] Potassium [Moles/Vol] 4.3 mmol/L Normal 3.5 - 5.3 mmol/L [facility] Sodium [Moles/Vol] 131 mmol/L Low 135 - 145 mmol/L [facility] Urea nitrogen [Mass/Vol] 11 mg/dL Normal 5 - 21 mg/dL [facility] Urea nitrogen/Creatinine [Mass ratio] 12 mg/mg Normal 10 - 20 [facility] COAGULATIONOrdered By: Lester Martínez on 10-23-2022 INR Coag (PPP) [Relative time] 1.8 {INR} Invalid Interpretation Code [facility] Auto Coag PT Coag (PPP) [Time] 20.0 s High 9.4 - 1 2.5 second(s) [facility] Auto Coag Consent for Treatmenton Consent for Treatment [id number]#[id number]:127 Normal [facility] HEMATOLOGYOrdered By: SYSTEM SYSTEM on 10-23-2022 Basophils/100 WBC (Bld) 1.1 % Normal 0.0 - 2.0 % [facility] HemeAutoSS Basophils/Leukocytes Auto (Bld) [Pure # fraction] [...] 13.4 g/dL Low 13.5 - 17.5 gm/dL [facility] HemeAutoSS MCH (RBC) [Entitic mass] 36.1 pg High 27.0 - 34.0 pg [facility] HemeAutoSS MCHC (RBC) [Mass/Vol] 34.7 g/dL Normal 31.4 - 36.0 gm/dL [facility] HemeAutoSS MCV (RBC) [Entitic vol] 104.0 fL High 80.0 - 100.0 fL [facility] HemeAutoSS Platelet mean volume (Bld) [Entitic vol] 7.3 fL Normal 6.4 - 10.8 fL [facility] HemeAutoSS Platelets (Bld) [#/Vol] 85.0 E9/L Low 150.0 - 500.0 E9/L [facility] HemeAutoSS Comment on above: Result Comment: Plat elet count verified using smear estimate Results Verified By Repeat Analysis Slide reviewed by BR. RBC (Bld) [#/Vol] 3.7 E12/L Low 4.3 - 5.9 E12/L [facility] HemeAutoSS WBC corrected for nucl RBC Auto (Bld) [#/Vol] 4.5 E9/L Normal 4.0 - 11.0 E9/L [facility] HemeAutoSS PTon 10-23-2022 INR Coag (PPP) [Relative time] 1.8 {INR} Invalid Interpretation Code [facility] Comment on above: Result Comment: INR results are specifically intended to assess patients stabilized on long-term Anticoagulation therapy suggested INR?s ?Less Intensive Anticoagulation? 2.0 ? 3.0 Conventional Range 3.0 ? 4.5 Performed By: #### 1 4821434, 4275406, 4561068, 7917771, 8491712 ####[facility] [address] [place] [address] PT Coag (PPP) [Time] 20.0 second(s) High 9.4-12.5 [facility] Comment on above: Result Comment: 15 [...] the same coagulation reagent and instrumentation as [facility]. Currently there are no coagulation studies available worldwide for children to 14 days, and no normal ranges. Performed By: #### 1 5384407, 2923533, 5134434, 8148947, 4878594 ####[facility] [address] [place] [address] Physician Orderon 10-23-2022 Physician Order [id number]#[id number]:127 Normal [facility] eGFRon 10-23-2022 GFR/1.73 sq M.predicted among blacks MDRD (S/P/Bld) [Vol rate/Area] mL/min/{1.73_m2} Normal >=59 [facility] Comment on above: Order Comment: Order added by Discern Expert. Result Comment: eGFR is race adjusted. AA=. Performed By: #### 1 4377403, 6086911, 7924204, 9724172, 9993689 ####[facility] [address] [place] [address] GFR/1.73 sq M.predicted among non-blacks MDRD (S/P/Bld) [Vol rate/Area] mL/min/{1.73_m2} Normal >=59 [facility] Comment on above: Order Comment: Order added by Discern Expert. Result Comment: Cream Separator Operator nishi kidney disease could be indicated at eGFR's of less than 60 mL/min/1.73m2. Kidney failure is indicated at less than 15 mL/min/1.73m2. Performed By: #### 1 6787977, 9131832, 8358773, 0751892, 2195843 ####[facility] [address] [place] [address] CNSWon 10-20-2022 CNSW Normal [facility] CNPNon 10-08-2022 CNPN Normal [facility] CHEMISTRYOrdered By: SYSTEM SYSTEM on 07-31-2022 Albumin [Mass/Vol] 4.0 g/dL [...] hemistry - challengeOrdered By: SYSTEM SYSTEM on 07-03-2022 Ferritin [Mass/Vol] 523 ng/mL High 24 - 336 ng/mL [facility] Iron [Mass/Vol] 192 ug/dL High 35 - 153 mcg/dL [facility] Iron binding capacity [Mass/Vol] 223 ug/dL Low 250 - 400 mcg/dL [facility] Transferrin [Mass/Vol] 160 mg/dL Low 200 - 370 mg/dL [facility] No Panel InformationOrdered By: [employer] DomainUser on 07-03-2022 Lab Miscellaneous COMMENT Invalid Interpretation Code [facility] SendOutsSS Comment on above: Result Comment: Test Ordered: [id number] Hered.Hemochromatosis, DNA Hereditary Hemochromatosis Comment TG Result: c.845G>A (p.Zbd133Yla) - Not Detected c.187C>G (p.Zby37Ofg) - Not Detected c.193A>T (p.Kwm50Pkm) - Not Detected Not associated with increased [...] for patients who are homozygous for c.845G>A (p.Vkg155Hpz) and have yet to experience clinical symptoms. Comments: The most common HFE variants associated with hereditary hemochromatosis are c.845G>A (p.Mop857Kcf), c.187C>G (p.Ail92Oku), c.193A>T (p.Yja29Cxk). While patients homozygous for c.845G>A (p.Lie530Hnv) are the most likely to present clinical symptoms, less than 10% develop clinically significant iron overload with tissue and organ damage. Genetic counseling is recommended to discuss the potential clinical implications of positive results, as well as recommendations for testing family members. Genetic Coordinators are available for health care providers to discuss results at [phone] ([phone] Test Details: Three variants analyzed: c.845G>A (p.Jhz872Yiu), commonly referred to as C282Y c.187C>G (p.Xhp50Dwu), commonly referred to as H63D c.193A>T (p.Fay03Kiy), commonly referred to as S65C Methods/Limitations: DNA [...] developed and its performance characteristics determined by [facility]. It has not been cleared or approved by the Food and Drug Administration. References: Chuy BR, Joshua PC, Chance KV, Farooq LW, Rodrigo ; [employer]. Diagnosis and management of hemochromatosis: 2011 practice guideline by the [employer]. Hepatology. 2011 Feb;54(1):328-43. doi: 10.1002/hep.53425. PMID: 95144715; PMCID: [id number]. Rajeev G, Eze P, Erika DW, Carrie H, Dawn O, Felipe S, Robles I, Judson M, Fede S. [facility] best practice guidelines for the molecular genetic diagnosis of hereditary hemochromatosis (HH). Eur J Hum Radha. 2016 Nov;24(4):479-95. doi: 10.1038/ejhg.2015.128. Epub 2014Feb 28. PMID: 00153952; PMCID: [id number]. Nadira Campoverde, PhD, FACMG Keo Root, PhD Nickolas Pereira, PhD, FACMG Tai Jensen, PhD, FACMG Carlitos Mckeon, PhD, FACMG W Jossy Salmon, PhD, FACMG Wanda Sorto, PhD, FACMG Sakina Delgado, PhD, FACMG Performed at: [address] [id number] PhD Arcelia Pinedo Panel InformationOrdered By: Aminah Jean on 07-03-2022 Test Code 356249 Invalid Interpretation Code [facility] SendOutsSS Test Name Hemochromotosis Invalid Interpretation Code [facility] SendOuts CHEMISTRYOrdered By: SYSTEM SYSTEM on 06-19-2022 CRP [Mass/Vol] mg/dL Normal <=1.9mg/dL [facility] Remisol CHEMISTRYOrdered By: Eric Chu on 06-19-2022 HbA1c (Bld) [Mass fraction] 4.0 % Normal <=5.9% [facility] ChemAutoSS HEMATOLOGYOrdered By: SYSTEM SYSTEM on 06-19-2022 [...] 14.4 % High 10.9 - 14.2 % [facility] HemeAutoSS Hematocrit (Bld) [Volume fraction] 31.9 % [...] [facility] Auto Coag No Panel Informationon 05-13 [facility] CHEMISTRYOrdered By: SYSTEM SYSTEM on 04-24-2022 [...] second(s) [facility] Auto Coag HEMATOLOGYOrdered By: Conchita castro Shortridge on 04-24-2022 Sed Rate Automated 57 mm/h High 0 - 19 mm/hr [facility] HemeAutoSS CHEMISTRYOrdered By: SYSTEM SYSTEM on 04-17-2022 [...] rate/Area] mL/min/1.73 m2 Normal >=59mL/min/1 .73 m2 [facility] Chem S GFR/1.73 sq M.predicted among non-blacks MDRD (S/P/Bld) [Vol rate/Area] mL/min/1.73 m2 Normal >=59mL/min/1 .73 m2 [facility] Chem S Globulin (S) [Mass/Vol] 4.6 g/dL High 1.4 - 4.0 gm/dL [facility] Glucose [Mass/Vol] 96 mg/dL Normal 55 - 199 mg/dL [facility] Potassium [Moles/Vol] 4.0 mmol/L Normal 3.5 - 5.3 mmol/L [facility] Protein [Mass/Vol] 7.3 g/dL Normal 6.0 [...] Result S_TBIL:[id number] Called to [facility] by ARON MARTÍNEZ And Read Back For Confirmation at: 04/09/2022 14:30:05 Calcium [Mass/Vol] 9.0 mg/dL Normal 8.9 - 11. 1 mg/dL [facility] Chloride [Moles/Vol] 99 mmol/L Low 101 [...] rate/Area] mL/min/1.73 m2 Normal >=59mL/min/1 .73 m2 [facility] Chem S Globulin (S) [Mass/Vol] 5.0 g/dL High 1.4 - 4.0 gm/dL [facility] Glucose [Mass/Vol] 115 mg/dL Normal 55 - 199 mg/dL [facility] Potassium [Moles/Vol] 3.7 mmol/L Normal 3.5 - 5.3 mmol/L [facility] Protein [Mass/Vol] 7.6 g/dL Normal 6.0 - 7.8 gm/dL [facility] Sodium [Moles/Vol] 136 mmol/L Normal 135 - 145 mmol/L [facility] Urea nitrogen [Mass/Vol] 5 mg/dL Normal 5 - 21 mg/dL [facility] Urea nitrogen/Creatinine [Mass ratio] 8 mg/mg Low 10 - 20 [facility] COAGULATIONOrdered By: Celena Chu on 04-09-2022 INR Coag (PPP) [Relative time] 1.8 {INR} Invalid Interpretation Code [facility] Auto Coag PT Coag (PPP) [Time] 20.5 s High 9.4 - 1 2.5 second(s) [facility] Auto Coag HEMATOLOGYOrdered By: SYSTEM SYSTEM on 04-09-2022 Basophils/100 WBC (Bld) 0.8 % Normal 0.0 - 2.0 % [facility] HemeAutoSS Basophils/Leukocytes Auto (Bld) [Pure # fraction] [...] [Interp] See Morphology (04/09/22 11:36 AM) Normal [facility] HemeManSS Platelet mean volume (Bld) [Entitic vol] 7.2 fL Normal 6.4 - 10.8 fL [facility] HemeAutoSS Platelets (Bld) [#/Vol] 100.0 E9/L Low 150.0 - 500.0 E9/L [facility] HemeAutoSS Comment on above: Result Comment: Plat elet count verified using smear estimate RBC (Bld) [#/Vol] 3.4 E12/L Low 4.3 - 5.9 E12/L [facility] HemeAutoSS WBC corrected for nucl RBC Auto (Bld) [#/Vol] 6.3 E9/L Normal 4.0 - 11.0 E9/L [facility] HemeAutoSS CBC AUTO DIFFon 03-21-2022 BASO # 0.0 103/ul Normal 0.0-0.1 [facility] Comment on above: Performed By: #### C BC #### [facility] [address] [address] [address] Geovany Cotter Basophils/100 WBC (Bld) 0.0 % Critically low 0.2-2.0 [facility] Comment on above: Performed By: #### C BC #### [facility] [address] [address] [address] Geovany Cotter EO # 0.0 103/ul Normal 0.0-0.7 [facility] Comment on above: Performed By: #### C BC #### [facility] [address] [address] [address] Geovany Cotter Eosinophils/100 WBC (Bld) 0.3 % Critically low 0.9-7.0 [facility] Comment on above: Performed By: #### C BC #### [facility] [address] [address] [address] Geovany Cotter Erythrocyte distribution width (RBC) [Ratio] 15.9 % Critically high 11.0-15.0 [facility] Comment on above: Performed By: #### C BC #### [facility] [address] [address] [address] Geovany Cotter Hematocrit (Bld) [Volume fraction] 36.2 % Critically low 42.0-54.0 [facility] Comment on above: Performed By: #### C BC #### [facility] [address] [address] [address] Geovany Cotter Hemoglobin (Bld) [Mass/Vol] 12.9 g/dL Critically low 14.0-18.0 [facility] Comment on above: Performed By: #### C BC #### [facility] [address] [address] [address] Geovany Cotter IG # 0.01 10e3/ul Normal 0.00-0.03 [facility] Comment on above: Performed By: #### C BC #### [facility] [address] [place] [address] Dr. Geovany Cotter IG % 0.2 % Normal 0.0-0.5 [facility] Comment on above: Performed By: #### C BC #### [facility] [address] [place] [address] Dr. Geovany Cotter LYMPH # 0.6 103/ul Critically low 1.2-3.8 [facility] Comment on above: Performed By: #### C BC #### [facility] [address] [place] [address] Dr. Geovany Cotter Lymphocytes/100 WBC (Bld) 9.6 % Critically low 20.5-60.0 [facility] Comment on above: Performed By: #### C BC #### [facility] [address] [place] [address] Dr. Geovany Cotter MANUAL DIFF REQ NO Normal [facility] Comment on above: Performed By: #### C BC #### [facility] [address] [place] [address] Dr. Geovany Cotter MCH (RBC) [Entitic mass] 37.5 pg Critically high 25.9-34.0 [facility] Comment on above: Performed By: #### C BC #### [facility] [address] [place] [address] Dr. Geovany Cotter MCHC (RBC) [Mass/Vol] 35.6 g/dL Critically high 29.9-35.2 [facility] Comment on above: Performed By: #### C BC #### [facility] [address] [address] [address] Geovany Cotter MCV (RBC) [Entitic vol] 105.2 fL Critically high 80.0-94.0 [facility] Comment on above: Performed By: #### C BC #### [facility] [address] [address] [address] Geovany Cotter MONO # 0.4 103/ul Normal 0.3-0.8 [facility] Comment on above: Performed By: #### C BC #### [facility] [address] [address] [address] Geovany Cotter Monocytes/100 WBC (Bld) 7.2 % Normal 1.7-12.0 [facility] Comment on above: Performed By: #### C BC #### [facility] [address] [address] [address] Geovany Cotter NEUT # 4.8 103/ul Normal 1.4-6.5 [facility] Comment on above: Performed By: #### C BC #### [facility] [address] [address] [address] Geovany Cotter Neutrophils/100 WBC (Bld) 82.7 % Critically high 43.0-75.0 [facility] Comment on above: Performed By: #### C BC #### [facility] [address] [address] [address] Geovany Cotter Platelet mean volume (Bld) [Entitic vol] 10.2 fL Normal 9.5-13.5 [facility] Comment on above: Performed By: #### C BC #### [facility] [address] [address] [address] Geovany Cotter PLT 80 103/ul Critically low 150-450 [facility] Comment on above: Performed By: #### C BC #### [facility] [address] [address] [address] Geovany Cotter RBC 3.44 106/ul Critically low 4.70-6.10 [facility] Comment on above: Performed By: #### C BC #### [facility] [address] [place] [address] Dr. Geovany Cotter WBC 5.9 103/ul Normal 4.0-11.0 [facility] Comment on above: Performed By: #### C BC #### [facility] [address] [place] [address] Dr. Geovany Cotter CRPon 03-21-2022 CRP 3.2 mg/dL Critically high <=1.0 [facility] Comment on above: Performed By: #### C RP, CMP #### [facility] [address] [place] [address] Dr. Geovany Cotter PROF 14(COMP METB)on 022 Albumin [Mass/Vol] 2.5 g/dL Critically low 3.4-5.0 [facility] Comment on above: Performed By: #### C RP, CMP #### [facility] [address] [place] [address] Dr. Geovany Cotter Albumin/Globulin [Mass ratio] 0.5 {ratio} Normal [facility] Comment on above: Performed By: #### C RP, CMP #### [facility] [address] [place] [address] Dr. Geovany Cotter ALP [Catalytic activity/Vol] 166 U/L Critically high 46-116 [facility] Comment on above: Performed By: #### C RP, CMP #### [facility] [address] [place] [address] Dr. Geovany Cotter ALT [Catalytic activity/Vol] 37 U/L Normal 16-63 [facility] Comment on above: Performed By: #### C RP, CMP #### [facility] [address] [place] [address] Dr. Geovany Cotter Anion gap [Moles/Vol] 11.6 mmol/L Normal [facility] Comment on above: Performed By: #### C RP, CMP #### [facility] [address] [place] [address] Dr. Geovany Cotter AST [Catalytic activity/Vol] 123 U/L Critically high 15-37 [facility] Comment on above: Performed By: #### C RP, CMP #### [facility] [address] [place] [address] Dr. Geovany Cotter Bilirubin [Mass/Vol] 10.6 mg/dL Critically high 0.2-1.0 [facility] Comment on above: Performed By: #### C RP, CMP #### [facility] [address] [place] [address] Dr. Geovany Cotter Calcium [Mass/Vol] 8.3 mg/dL Critically low 8.5-10.1 [facility] Comment on above: Performed By: #### C RP, CMP #### [facility] [address] [place] [address] Dr. Geovany Cotter Chloride [Moles/Vol] 97 mmol/L Critically low 98-107 [facility] Comment on above: Performed By: #### C RP, CMP #### [facility] [address] [place] [address] Dr. Geovany Cotter CO2 [Moles/Vol] 28.3 mmol/L Normal 21.0-32.0 [facility] Comment on above: Performed By: #### C RP, CMP #### [facility] [address] [place] [address] Dr. Geovany Cotter Creatinine [Mass/Vol] 1.21 mg/dL Normal 0.70-1.30 [facility] Comment on above: Performed By: #### C RP, CMP #### [facility] [address] [place] [address] Dr. Geovany Cotter EGFR-AF GUATEMALAN >60 Normal >=60 [facility] Comment on above: Performed By: #### C RP, CMP #### [facility] [address] [place] [address] Dr. Geovany Cotetr EGFR-NON AF GUATEMALAN >60 Normal >=60 [facility] Comment on above: Performed By: #### C RP, CMP #### [facility] [address] [place] [address] Dr. Geovany Cotter Globulin (S) [Mass/Vol] 4.7 g/dL Normal [facility] Comment on above: Performed By: #### C RP, CMP #### [facility] [address] [address] [address] Geovany Cotter Glucose [Mass/Vol] 107 mg/dL Critically high 74-106 T [facility] Comment on above: Performed By: #### C RP, CMP #### [facility] [address] [address] [address] Geovany Cotter Potassium [Moles/Vol] 3.9 mmol/L Normal 3.5-5.1 [facility] Comment on above: Performed By: #### C RP, CMP #### [facility] [address] [place] [address] Dr. Geovany Cotter Protein [Mass/Vol] 7.2 g/dL Normal 6.4-8.2 [facility] Comment on above: Performed By: #### C RP, CMP #### [facility] [address] [place] [address] Dr. Geovany Cotter Sodium [Moles/Vol] 133 mmol/L Critically low 136-145 [facility] Comment on above: Performed By: #### C RP, CMP #### [facility] [address] [place] [address] Dr. Geovany Cotter Urea nitrogen [Mass/Vol] 11.0 mg/dL Normal 7.0-18.0 [facility] Comment on above: Performed By: #### C RP, CMP #### [facility] [address] [place] [address] Dr. Geovany Cotter Urea nitrogen/Creatinine [Mass ratio] 9.0 mg/mg Normal [facility] Comment on above: Performed By: #### C RP, CMP #### [facility] [address] [place] [address] Dr. Geovany Cotter PROTIMEon 03-21-2022 INR Coag (PPP) [Relative time] 1.53 {INR} Normal [facility] Comment on above: Performed By: #### P T #### [facility] [address] [place] [address] Dr. Geovany Cotter INR GUIDELINES SEE BELOW Normal [facility] Comment on above: Result Comment: WILLIAMS RED INR: 2.0 - 3.0 CONDITIONS NOT LISTED BELOW 2.5 - 3.5 FOR PROSTHETIC HEART VALVE REPLACEMENT 2.5 - 3.5 RECURRENT THROMBOSIS Performed By: #### P T #### [facility] [address] [place] [address] Dr. Geovany Cotter PT Coag (PPP) [Time] 16.1 s Critically high 9.0-11.6 [facility] Comment on above: Performed By: #### P T #### [facility] [address] [place] [address] Dr. Geovany Cotter SED RATE [facility] 2021 SED RATE 24 mm/hr Critically high <=15 [facility] Comment on above: Performed By: #### S EDR #### [facility] [address] [place] [address] Dr. Geovany Cotter UA RANDOMon 03-21-2022 Bilirubin Ql (U) LARGE Abnormal NEGATIVE [facility] Comment on above: Performed By: #### U A #### [facility] [address] [place] [address] Dr. Geovany Cotter Clarity (U) CLOUDY Abnormal CLEAR [facility] Comment on above: Performed By: #### U A #### [facility] [address] [place] [address] Dr. Geovany Cotter Color (U) DK. [place] Abnormal YELLOW [facility] Comment on above: Performed By: #### U A #### [facility] [address] [place] [address] Dr. Geovany Cotter Glucose Ql (U) Negative Normal NEGATIVE [facility] Comment on above: Performed By: #### U A #### [facility] [address] [place] [address] Dr. Geovany Cotter Hemoglobin Ql (U) LARGE Abnormal NEGATIVE [facility] Comment on above: Performed By: #### U A #### [facility] [address] [place] [address] Dr. Geovany Cotter Ketones Ql (U) Negative Normal NEGATIVE [facility] Comment on above: Performed By: #### U A #### [facility] [address] [place] [address] Dr. Geovany Cotter LEUKOCYTES Negative Normal NEGATIVE [facility] Comment on above: Performed By: #### U A #### [facility] [address] [place] [address] Dr. Geovany Cotter Nitrite Ql (U) Negative Normal NEGATIVE [facility] Comment on above: Performed By: #### U A #### [facility] [address] [place] [address] Dr. Geovany Cotter pH (U) 5.5 [pH] Normal 5-9 [facility] Comment on above: Performed By: #### U A #### [facility] [address] [place] [address] Dr. Geovany Cotter SPEC GRAVITY >=1.030 Abnormal 1.005-<=1.02 5 [facility] Comment on above: Performed By: #### U A #### [facility] [address] [place] [address] Dr. Geovany Cotter UA PROTEIN TRACE Normal NEGATIVE/ TRACE [facility] Comment on above: Performed By: #### U A #### [facility] [address] [place] [address] Dr. Geovany Cotter Urobilinogen Qn (U) 1.0 {Ruben'U}/dL Normal 0.2 - 1. 0 [facility] Comment on above: Performed By: #### U A #### [facility] [address] [place] [address] Dr. Geovany Cotter XR KUB 1 VIEWon [...] by: DORI YOO Date: 2022-03-21 17:58 Normal [facility] Vital Signs Date Time Vital Sign Value Performing Clinician Facility 09-15-2023 13:24-0500 Blood Pressure Location MAGGY SUARE[facility] 09-15-2023 13:24-0500 Diastolic blood pressure 77 mm[Hg] MAGGY SUAREZ [facility] 09-15-2023 13:24-0500 Heart rate 68 /min MAGGY SUAREZ [facility] 09-15-2023 13:24-0500 Respiratory rate 16 /min MAGGY SUAREZ [facility] 09-15-2023 13:24-0500 Systolic blood pressure 116 mm[Hg] MAGGY SUAREZ [facility] 05-22-2023 12:10-0400 Body height 195.6 cm Amanda Villarreal MD Work Phone: [facility] 05-22-2023 12:10-0400 Body weight 92.08 kg Amanda Villarreal MD Work Phone: [facility] 05-22-2023 12:10-0400 Diastolic blood pressure 89 mm[Hg] Amanda Villarreal MD Work Phone: [facility] 05-22-2023 12:10-0400 Heart rate 60 /min Amanda Villarreal MD Work Phone: [facility] 05-22-2023 12:10-0400 SaO2% (BldA) [Mass fraction] 98 % Amanda Villarreal MD Work Phone: [facility] 05-22-2023 12:10-0400 Systolic blood pressure 138 mm[Hg] Amanda Villarreal MD Work Phone: [facility] 04-30-2023 15:57-0400 Body height 195.6 cm Rose Saucedo [employer] Work Phone: [facility] 04-30-2023 15:57-0400 Body temperature 97 [degF] Rose Saucedo [employer] Work Phone: [facility] 04-30-2023 15:57-0400 Body weight 100.7 kg Rose Saucedo [employer] Work Phone: [facility] 04-30-2023 15:57-0400 Diastolic blood pressure 77 mm[Hg] Rose Saucedo [employer] Work Phone: [facility] 04-30-2023 15:57-0400 Heart rate 76 /min Rose Saucedo [employer] Work Phone: [facility] 04-30-2023 15:57-0400 Respiratory rate 16 /min Rose Saucedo [employer] Work Phone: [facility] 04-30-2023 15:57-0400 SaO2% (BldA) [Mass fraction] 99 % Rose Saucedo [employer] Work Phone: [facility] 04-30-2023 15:57-0400 Systolic blood pressure 122 mm[Hg] Rose Saucedo [employer] Work Phone: [facility] 04-15-2023 13:32-0400 Body height 195.6 cm Selma Decker MD Work Phone: [facility] 04-15-2023 13:32-0400 Body temperature 97.11 [degF] Selma Decker MD Work Phone: [facility] 04-15-2023 13:32-0400 Body weight 92.99 kg Selma Decker MD Work Phone: [facility] 04-15-2023 13:32-0400 Diastolic blood pressure 75 mm[Hg] Selma Decker MD Work Phone: [facility] 04-15-2023 13:32-0400 Heart rate 74 /min Selma Decker MD Work Phone: [facility] 04-15-2023 13:32-0400 Respiratory rate 16 /min Selma Decker MD Work Phone: [facility] 04-15-2023 13:32-0400 SaO2% (BldA) [Mass fraction] 99 % Selma Decker MD Work Phone: [facility] 04-15-2023 13:32-0400 Systolic blood pressure 124 mm[Hg] Selma Gastelum Work Phone: [facility] 04-05-2023 02:02-0400 SaO2% (BldA) [Mass fraction] 100 % ROSE SAUCEDO [facility] Comment on above: Order Comment: Specimen Type: ARTERIAL B LOOD SPECIMENOrdering Facility: [facility] Address: [address] [place] [address] Performed By: #### A LLBG ####[facility] LABCLIA [id number] [address] 04-04-2023 19:48-0400 SaO2% (BldA) [Mass fraction] 99 % ROSE SAUCEDO [facility] Comment on above: Order Comment: Specimen Type: ARTERIAL B LOOD SPECIMENOrdering Facility: [facility] Address: [address] [place] [address] Performed By: #### A LLBG ####[facility] LABCLIA [id number] [address] 04-04-2023 18:32-0400 SaO2% (BldA) [Mass fraction] 99 % ROSE SAUCEDO [facility] Comment on above: Order Comment: Specimen Type: ARTERIAL B LOOD SPECIMENOrdering Facility: [facility] Address: [address] [place] [address] Performed By: #### A LLBG ####[facility]CL[facility] [id number] [address] 04-04-2023 17:18-0400 SaO2% (BldA) [Mass fraction] 100 % ROSE SAUCEDO [facility] Comment on above: Order Comment: Specimen Type: ARTERIAL B LOOD SPECIMENOrdering Facility: [facility] Address: [address] [place], [place] [id number] Performed By: #### A LLMG ####[facility] LABCLIA [id number] [address] [id number] [facility] 04-04-2023 15:52-0400 SaO2% (BldA) [Mass fraction] 99 % ROSE SAUCEDO [facility] Comment on above: Order Comment: Specimen Type: ARTERIAL B LOOD SPECIMENOrdering Facility: [facility] Address: [address] [place] [address] Performed By: #### A LLMG ####[facility] [id number] [address] 04-04-2023 15:20-0400 SaO2% (BldA) [Mass fraction] 99 % ROSE SAUCEDO [facility] Comment on above: Order Comment: Specimen Type: ARTERIAL B LOOD SPECIMENOrdering Facility: [facility] Address: [address] [place], [place] [id number] Performed By: #### A LLBG ####[facility]CLIA [id number] [address] 04-04-2023 14:44-0400 SaO2% (BldA) [Mass fraction] 99 % ROSE SAUCEDO [facility] Comment on above: Order Comment: Specimen Type: ARTERIAL B LOOD SPECIMENOrdering Facility: [facility] Address: [address] [place], [place] [id number] Performed By: #### A LLMG ####[facility] LABCLIA [id number] [address] [id number] [facility] 04-04-2023 13:28-0400 SaO2% (BldA) [Mass fraction] 99 % ROSE SAUCEDO [facility] Comment on above: Order Comment: Specimen Type: ARTERIAL B LOOD SPECIMENOrdering Facility: [facility] Address: [address] [place] [address] Performed By: #### A LLMG ####[facility]CLIA [id number] [address] 04-04-2023 12:05-0400 SaO2% (BldA) [Mass fraction] 100 % ROSE SAUCEDO [facility] Comment on above: Order Comment: Specimen Type: ARTERIAL B LOOD SPECIMENOrdering Facility: [facility] Address: [address] [place] [address] Performed By: #### A LLMG ####[facility]CLIA [id number] [address] 07-18-2022 10:50-0500 Blood Pressure Location Daniels [employer] [facility] 07-18-2022 10:50-0500 Diastolic blood pressure 58 mm[Hg] Daniels SALAM [facility] 07-18-2022 10:50-0500 Heart rate 71 /min Daniels SALAM [facility] 07-18-2022 10:50-0500 Respiratory rate 14 /min Daniels SALAM [facility] 07-18-2022 10:50-0500 SaO2% (BldA) [Mass fraction] 100 % Daniels SALAM [facility] 07-18-2022 10:50-0500 Systolic blood pressure 144 mm[Hg] Daniels SALAM [facility] 07-18-2022 10:35-0500 Blood Pressure Location Daniels SALAM [facility] 07-18-2022 10:35-0500 Diastolic blood pressure 73 mm[Hg] Daniels SALAM [facility] 07-18-2022 10:35-0500 Heart rate 70 /min Daniels SALAM [facility] 07-18-2022 10:35-0500 Respiratory rate 13 /min Daniels SALAM [facility] 07-18-2022 10:35-0500 SaO2% (BldA) [Mass fraction] 99 % Daniels SALAM [facility] 07-18-2022 10:35-0500 Systolic blood pressure 130 mm[Hg] Daniels SALAM [facility] 07-18-2022 10:30-0500 Blood Pressure Location Daniels SALAM [facility] 07-18-2022 10:30-0500 Diastolic blood pressure 74 mm[Hg] Daniels SALAM [facility] 07-18-2022 10:30-0500 Heart rate 64 /min Daniels SALAM [facility] 07-18-2022 10:30-0500 Respiratory rate 16 /min Daniels SALAM [facility] 07-18-2022 10:30-0500 SaO2% (BldA) [Mass fraction] 97 % Daniels SALAM [facility] 07-18-2022 10:30-0500 Systolic blood pressure 119 mm[Hg] Daniels SALAM [facility] 07-18-2022 10:22-0500 Body temperature 99.68 [degF] Daniels SALAM [facility] 07-18-2022 10:11-0500 Body temperature 98.6 [degF] Daniels SALAM [facility] 06-12-2022 14:14-0400 Blood Pressure Location Daniels SALAM [facility] 06-12-2022 14:14-0400 Diastolic blood pressure 84 mm[Hg] Daniels SALAM [facility] 06-12-2022 14:14-0400 Heart rate 70 /min Daniels SALAM [facility] 06-12-2022 14:14-0400 Respiratory rate 16 /min Daniels SALAM [facility] 06-12-2022 14:14-0400 Systolic blood pressure 132 mm[Hg] Daniels SALAM [facility] 05-23-2022 13:30-0400 Blood Pressure Location Daniels SALAM [facility] 05-23-2022 13:30-0400 Diastolic blood pressure 79 mm[Hg] Daniels SALAM [facility] 05-23-2022 13:30-0400 Heart rate 67 /min Daniels SALAM [facility] 05-23-2022 13:30-0400 Respiratory rate 12 /min Daniels SALAM [facility] 05-23-2022 13:30-0400 SaO2% (BldA) [Mass fraction] 99 % Daniels SALAM [facility] 05-23-2022 13:30-0400 Systolic blood pressure 131 mm[Hg] Daniels SALAM [facility] 05-23-2022 13:20-0400 Blood Pressure Location Daniels SALAM [facility] 05-23-2022 13:20-0400 Diastolic blood pressure 89 mm[Hg] Daniels SALAM [facility] 05-23-2022 13:20-0400 Heart rate 71 /min Daniels SALAM [facility] 05-23-2022 13:20-0400 Respiratory rate 12 /min Daniels SALAM [facility] 05-23-2022 13:20-0400 SaO2% (BldA) [Mass fraction] 100 % Daniels SALAM [facility] 05-23-2022 13:20-0400 Systolic blood pressure 131 mm[Hg] Daniels SALAM [facility] 05-23-2022 13:15-0400 Blood Pressure Location Daniels SALAM [facility] 05-23-2022 13:15-0400 Diastolic blood pressure 62 mm[Hg] Daniels SALAM [facility] 05-23-2022 13:15-0400 Heart rate 70 /min Daniels SALAM [facility] 05-23-2022 13:15-0400 Respiratory rate 14 /min Daniels SALAM [facility] 05-23-2022 13:15-0400 SaO2% (BldA) [Mass fraction] 99 % Daniels SALAM [facility] 05-23-2022 13:15-0400 Systolic blood pressure 102 mm[Hg] Daniels SALAM [facility] 05-23-2022 13:07-0400 Body temperature 97.34 [degF] Daniels SALAM [facility] 05-23-2022 12:00-0400 Body temperature 98.96 [degF] Frances PEPE [facility] 05-14-2022 15:33-0400 Body height 195.[address] Work Phone: [facility] 05-14-2022 15:33-0400 Body weight 92.[address] Work Phone: [facility] 05-14-2022 08:25-0400 Body height 195.6 cm [facility] Work Phone: [facility] 05-14-2022 08:25-0400 Body temperature 98.4 [degF] [facility] Work Phone: [facility] 05-14-2022 08:25-0400 Body weight 92.58 kg [facility] Work Phone: [facility] 05-14-2022 08:25-0400 Diastolic blood pressure 70 mm[Hg] [facility] Work Phone: [facility] 05-14-2022 08:25-0400 Heart rate 82 /min [facility] Work Phone: [facility] 05-14-2022 08:25-0400 Respiratory rate 14 /min [facility] Work Phone: [facility] 05-14-2022 08:25-0400 SaO2% (BldA) [Mass fraction] 95 % [facility] Work Phone: [facility] 05-14-2022 08:25-0400 Systolic blood pressure 124 mm[Hg] [facility] Work Phone: [facility] 05-12-2022 14:01-0400 Body height 195.6 cm Treva Wolff MD Work Phone: [facility] 05-12-2022 14:01-0400 Body temperature 98.2 [degF] Treva Wolff MD Work Phone: [facility] 05-12-2022 14:01-0400 Body weight 93.76 kg Treva Wolff MD Work Phone: [facility] 05-12-2022 14:01-0400 Diastolic blood pressure 68 mm[Hg] Treva Wolff MD Work Phone: [facility] 05-12-2022 14:01-0400 Heart rate 75 /min Treva Wolff MD Work Phone: [facility] 05-12-2022 14:01-0400 SaO2% (BldA) [Mass fraction] 100 % Treva Wolff MD Work Phone: [facility] 05-12-2022 14:01-0400 Systolic blood pressure 130 mm[Hg] Treva Wolff MD Work Phone: [facility] 04-30-2022 14:50-0400 Diastolic blood pressure 92 mm[Hg] Daniels SALAM [facility] 04-30-2022 14:50-0400 Heart rate 66 /min Daniels SALAM [facility] 04-30-2022 14:50-0400 Respiratory rate 11 /min Daniels SALAM [facility] 04-30-2022 14:50-0400 SaO2% (BldA) [Mass fraction] 99 % Daniels SALAM [facility] 04-30-2022 14:50-0400 Systolic blood pressure 154 mm[Hg] Daniels SALAM [facility] 04-30-2022 14:40-0400 Diastolic blood pressure 99 mm[Hg] Daniels SALAM [facility] 04-30-2022 14:40-0400 Heart rate 75 /min Daniels SALAM [facility] 04-30-2022 14:40-0400 Respiratory rate 22 /min Daniels SALAM [facility] 04-30-2022 14:40-0400 SaO2% (BldA) [Mass fraction] 99 % Daniels SALAM [facility] 04-30-2022 14:40-0400 Systolic blood pressure 136 mm[Hg] Daniels SALAM [facility] 04-30-2022 14:35-0400 Diastolic blood pressure 99 mm[Hg] Daniels SALAM [facility] 04-30-2022 14:35-0400 Heart rate 84 /min Daniels SALAM [facility] 04-30-2022 14:35-0400 Respiratory rate 76 /min Daniels SALAM [facility] 04-30-2022 14:35-0400 SaO2% (BldA) [Mass fraction] 98 % Daniels SALAM [facility] 04-30-2022 14:35-0400 Systolic blood pressure 142 mm[Hg] Daniels SALAM [facility] 04-30-2022 14:27-0400 Blood Pressure Location Daniels SALAM [facility] 04-30-2022 14:27-0400 Body temperature 97.52 [degF] Daniels SALAM [facility] 04-30-2022 14:27-0400 Respiratory rate 18 /min Daniels SALAM [facility] 04-30-2022 14:23-0400 Respiratory rate 20 /min Daniels SALAM [facility] 04-30-2022 14:21-0400 Respiratory rate 20 /min Daniels SALAM [facility] 04-30-2022 14:15-0400 Blood Pressure Location Daniels SALAM [facility] 04-30-2022 14:15-0400 Body temperature 97.52 [degF] Daniels SALAM [facility] 04-09-2022 10:30-0400 Blood Pressure Location Daniels SALAM [facility] 04-09-2022 10:30-0400 Diastolic blood pressure 80 mm[Hg] Daniels SALAM [facility] 04-09-2022 10:30-0400 Heart rate 85 /min Daniels SALAM [facility] 04-09-2022 10:30-0400 Respiratory rate 14 /min Daniels SALAM [facility] 04-09-2022 10:30-0400 Systolic blood pressure 130 mm[Hg] Daniels SALAM [facility] 03-20-2022 16:08-0400 Blood Pressure Location CHINEDU SIDELL [facility] 03-20-2022 16:08-0400 Body temperature 98.42 [degF] CHINEDU SIDELL [facility] 03-20-2022 16:08-0400 Diastolic blood pressure 80 mm[Hg] CHINEDU SIDELL [facility] 03-20-2022 16:08-0400 Heart rate 89 /min CHINEDU SETHI [facility] 03-20-2022 16:08-0400 SaO2% (BldA) [Mass fraction] 99 % CHINEDU SETHI [facility] 03-20-2022 16:08-0400 Systolic blood pressure 134 mm[Hg] CHINEDU SETHI [facility] Encounters Encounter Date Encounter Type Care Provider Facility Start: 09-25-2023 ambulatory Frances PEPE Facility:[facility] [place] Start: 09-15-2023 End: 09-16-2023 ambulatory MAGGY SUAREZ Facility:[facility] [place] Start: 09-15-2023 End: 09-15-2023 Patient encounter procedure MAGGYCRISTI SUAREZ [facility] Start: 07-24-2023 End: 07-24-2023 ambulatory LUIS E BROOKS Facility:[facility] Start: 07-21-2023 ambulatory Luis E castro MD Work Phone: [facility] Comment on above: Still some bloating Start: 07-21-2023 Patient encounter procedure Luis E Brooks MD Work Phone: [facility] Comment on above: Coming up appointmen t Start: 07-13-2023 ambulatory Christine To RN [facility] Comment on above: Happy Thanksgiving! Start: 07-13-2023 E-mail encounter fro m caregiver Christine To RN [facility] Start: 07-07-2023 Refill Rose harmon APRN.POULTRY SLAUGHTERER Work Phone: [facility] Center Comment on above: Refill Request Start: 07-06-2023 Refill Rose harmon APRN.POULTRY SLAUGHTERER Work Phone: [facility] Center Comment on above: [...] Start: 05-28-2023 End: 05-29-2023 ambulatory Amrik Jeffrey Facility:[facility] Start: 05-22-2023 End: 05-22-2023 ambulatory KAUSHAL STEWART Facility:[facility] Start: 05-22-2023 End: 05-23-2023 ambulatory LUIS E BROOKS Facility:[facility] Start: 05-22-2023 End: 05-22-2023 Patient encounter procedure Amanda Villarreal MD Work Phone: Cardiology Comment on above: Cardiomyopathy, da schemic (HCC) (Primary Dx); Liver transplant recipient (HCC); Chronic systolic heart failure (HCC) Start: 05-18-2023 End: 05-18-2023 ambulatory KAUSHAL STEWART Facility:[facility] Start: 05-05-2023 End: 05-05-2023 ambulatory TREVA WOLFF Facility:[facility] Start: 04-30-2023 End: 05-01-2023 ambulatory DEANGELO BOLAND Facility:[facility] Start: 04-30-2023 End: 04-30-2023 Patient encounter procedure Rose Saucedo APRN.POULTRY SLAUGHTERER Work Phone: Transplant Center Comment on above: Liver replaced by tr ansplant (HCC) (Primary Dx); Immunosuppressed status (HCC) Start: 04-22-2023 End: 04-22-2023 Refill Christine To RN [facility] Comment on above: Refill Request (Inc 4/4) Refill Request Start: 04-17-2023 Telephone encounter Liver Txp Coordinator Work Phone: Transplant Center Comment on above: Medication Question (lasix) Start: 04-16-2023 Telephone encounter Liver Txp Coordinator Work Phone: Transplant Center Start: 04-15-2023 End: 04-16-2023 ambulatory [facility] Facility:[facility] Start: 04-15-2023 End: 04-15-2023 Patient encounter procedure Selma Decker MD Work Phone: Transplant Center Comment on above: Encounter for afterc are following liver transplant (HCC) (Primary Dx); Liver replaced by transplant (HCC); Need for prophylactic immunotherapy; Encounter for monitoring tacrolimus therapy; Encounter for medication review and counseling; Hyponatremia Start: 04-15-2023 End: 04-16-2023 ambulatory [facility] Facility:[facility] Start: 04-14-2023 Telephone encounter Liver Txp [...] End: 04-13-2023 Evaluation and management of inpatient [facility] Facility:[facility] Start: 04-03-2023 Orders Only Johnnie marion MD Work Phone: Pulmonary Medicine Comment on above: ALISON (acute kidney in jury) (HCC) (Primary Dx) Start: 04-01-2023 Orders Only Hortensia Angeles RN Transpl [facility] Center Comment on above: Alcoholic cirrhosis of liver with ascites (HCC) (Primary Dx) Start: 04-01-2023 End: 04-03-2023 Evaluation and management of inpatient [facility]ÁZQUEZ [facility] Facility:[facility] Start: 03-31-2023 Telephone encounter Hortensia Angeles RN [facility] Center Comment on above: Listed For Liver Tra nsplant ALISON vs HRS; Follow U p Start: 03-30-2023 End: 03-31-2023 ambulatory TREVA HART Facility:[facility] Start: 03-30-2023 End: 03-30-2023 Patient encounter procedure TREVA RADHAJarekLICHAWOLFF [facility] Start: 03-26-2023 Orders Only Hortensia Angeles RN [facility] Comment on above: Alcoholic cirrhosis of liver with ascites (HCC) (Primary Dx) Start: 03-23-2023 End: 03-23-2023 ambulatory Treva Wolff MD Work Phone: Gastroenterology Comment on above: Alcoholic cirrhosis of liver with ascites (HCC) (Primary Dx) Start: 03-23-2023 End: 03-23-2023 Telemedicine consultation with patient Treva Wolff MD Work Phone: [facility] Start: 03-12-2023 End: 03-13-2023 ambulatory TREVA HART Facility:[facility] Start: 03-12-2023 End: 03-12-2023 Patient encounter procedure TREVA HART [facility] Start: 01-20-2023 End: 01-21-2023 ambulatory TREVA WOLFF Facility:[facility] Start: 01-20-2023 End: 01-20-2023 Subsequent hospital visit by physician Ct 2 Main Qb (I-Stat) Radiology Comment on above: Alcoholic cirrhosis of liver with ascites (HCC) [K70.31] Start: 12-11-2022 Telephone encounter Hortensia Angeles RN [facility] Comment on above: Liver Transplant Isabel ection Committee Outcome Patient Notifi Abnormal results of liver function studies (Primary Dx); Alcoholic cirrhosis of liver with ascites (HCC) Start: 11-27-2022 End: 11-28-2022 ambulatory [facility] Facility:[facility] Start: 11-27-2022 Telephone encounter Hortensia Angeles RN [facility] Comment on above: CHEMICAL DEPENDENCY SUBCOMMITTEE OUTCOME PATIENT NOTIFICATI Start: 11-20-2022 End: 11-21-2022 ambulatory STACY WILSON ELMAGD Facility:[facility] Start: 11-20-2022 End: 11-20-2022 Subsequent hospital visit by physician Main A21 1 Radiology Comment on above: Alcoholic cirrhosis of liver with ascites (HCC) [K70.31] Start: 11-04-2022 End: 11-05-2022 ambulatory Frances ROMOAM Facility:[facility] Start: 11-04-2022 End: 11-04-2022 Patient encounter procedure Frances PEPE [facility] Start: 10-28-2022 End: 10-29-2022 ambulatory TREVA PUTNAMELLIOTTJarekSophiaMARIELLA Facility:[facility] Start: 10-28-2022 End: 10-28-2022 Patient encounter procedure TREVA PUTNAMELLIOTTJarekLICHAWOLFF [facility] Start: 10-23-2022 End: 10-24-2022 ambulatory HORTENSIA LIMA Facility:[facility] Start: 10-23-2022 End: 10-23-2022 Patient encounter procedure HORTENSIA LIMA [facility] Start: 10-21-2022 Orders Only Hortensia Angeles RN Transpl ant Center Comment on above: Alcoholic cirrhosis of liver with ascites (HCC) (Primary Dx) Start: 10-20-2022 Social Work Lobo Crabtreeyfky Yuriy ISW Work Phone: Transplant Center Start: 10-14-2022 Orders Only Hortensia Angeles RN Transpl ant [...] Update Start: 09-18-2022 Telephone encounter Hortensia Angeles RN [facility] Comment on above: Patient Update Start: 09-04-2022 Telephone encounter Hortensia Angeles RN [facility] Center Comment on above: CHEMICAL DEPENDENCY OUTCOME PATIENT CALL Start: 09-03-2022 ambulatory Melly Lr MD Work Phone: Transplant Center Comment on above: CHEMICAL DEPENDENCY TRANSPLANT SELECTION MEETING OUTCOME Start: 08-29-2022 Telephone encounter Kina Corona (Pss) Gastroenterology Comment on above: Appointment Start: 08-07-2022 Telephone encounter Hortensia Angeles [facility] therapist Center Comment on above: CHEMICAL DEPENDENCY SUBCOMITTEE OUTCOME PATIENT CALL Start: 08-06-2022 ambulatory Melly Lr MD Work Phone: Transplant Center Comment on above: CHEMICAL DEPENDENCY SUBCOMMITTEE Start: 07-31-2022 End: 07-31-2022 Patient encounter procedure Daniels SALAM [facility] Start: 07-25-2022 Telephone encounter Liver Txp Coordinator Work Phone: Transplant Center Comment on above: Care Everywhere Start: 07-18-2022 End: 07-18-2022 Patient encounter procedure Daniels SALAM [facility] Start: 07-02-2022 Telephone encounter Hortensia Angeles RN [facility] Center Comment on above: POSITIVE PETH RESULT S Start: 06-26-2022 Telephone encounter Hortensia Angeles RN [facility] Comment on above: CHEMCICAL DEPENDENCY MEETING OUTCOME PATIENT CALL Alcoholic cirrhosis of liver with ascites (HCC) (Primary Dx) Start: 06-25-2022 ambulatory Melly Lr MD Work Phone: Transplant Center Comment on above: CHEMICAL DEPENDENCY SELECTION COMMITTEE Start: 06-19-2022 End: 06-19-2022 Patient encounter procedure CHINEDU SETHI [facility] Start: 06-12-2022 End: 10-09-2022 Recurring Daniels SALAM [facility] Start: 06-12-2022 End: 06-12-2022 Patient encounter procedure Frances PEPE [facility] Start: 06-05-2022 Orders Only Hortensia Angeles RN Transpl [facility] Comment on above: Alcoholic cirrhosis of liver with ascites (HCC) (Primary Dx) Start: 06-04-2022 ambulatory Melly Lr MD Work Phone: Transplant Center Comment on above: CHEMCIAL DEPENDENCY MEETING Start: 06-02-2022 End: 06-02-2022 Social Work Lobo Cronin SUPERVISORY IT SPECIALIST Work Phone: Transplant Center Start: 05-23-2022 End: 05-23-2022 [facility] Start: 05-22-2022 Orders Only Hortensia Angeles RN Transpl [facility] Comment on above: Alcoholic cirrhosis of liver with ascites (HCC) (Primary Dx); Alcoholic cirrhosis, unspecified whether ascites present (HCC) Start: 05-14-2022 End: 05-14-[address] Work Phone: Nutrition Therapy Comment on [...] 05-14-2022 End: 05-14-2022 Patient encounter status Javi Gopi MD Work Phone: Transplant Center Start: 05-13-2022 End: 05-13-2022 Orders Only Hortensia Angeles [facility] therapist Center Comment on above: Alcoholic cirrhosis of [...] with patient Liver Txp Coordinator Work Phone: [facility] Start: 05-08-2022 End: 08-19-2022 Recurring Daniels TONY [facility] Start: 05-08-2022 End: 11-04-2022 Recurring Daniels SALAM [facility] Start: 05-07-2022 Telephone encounter Liver Txp Coordinator Work Phone: Transplant Center Comment on above: Reminder Call Start: 04-30-2022 Telephone encounter Gracie Loving RN Transplant Center Comment on above: Referral - Liver Txp (Evaluation scheduling) Start: 04-30-2022 End: 04-30-2022 Patient encounter procedure Frances PEPE [facility] Start: 04-29-2022 Telephone encounter Gracie Loving RN Transplant Center Comment on above: Referral - Liver Txp (Intake-pt to call back about scheduling) Start: 04-24-2022 End: 04-24-2022 Patient encounter procedure Danielsazalea PEPE [facility] Start: 04-24-2022 End: 07-24-2022 Recurring Frances PEPE [facility] Start: 04-18-2022 Telephone encounter Liver Txp Coordinator Work Phone: Transplant Center Comment on above: Referral - Liver Txp Start: 04-17-2022 End: 04-17-2022 Patient encounter procedure Danielsazalea PEPE [facility] Start: 04-14-2022 End: 04-14-2022 Patient encounter procedure Danielsazalea PEPE [facility] Start: 04-11-2022 End: 04-11-2022 Patient encounter procedure Frances PEPE [facility] Start: 04-09-2022 End: 04-09-2022 Patient encounter procedure Frances PEPE [facility] Start: 03-21-2022 End: 03-22-[address] DOCTOR MERIDA Facility:[facility] Start: 03-20-2022 End: 03-20-2022 Patient encounter procedure CHINEDU SETHI [facility] [place] Procedures Date Procedure Procedure Detail Performing Clinician Start: 05-05-2023 Echocardiography ROSE SAUCEDO Start: 04-13-2023 Antibody screen ROSE SAUCEDO Comment on above: Order Comment: Specimen Type: BLOOD SPEC IMENOrdering Facility: [facility] Address: [address] [place] [id number] Performed By: #### T SCR ####CC MAIN BLOOD BANKCLIA [id number] [address] Start: 04-11-2023 Lipid 1996 panel - Serum or Plasma Liver Coordinator Work Phone: Start: 04-10-2023 Antibody screen ROSE SAUCEDO Comment on above: Order Comment: Specimen Type: BLOOD SPEC IMENOrdering Facility: [facility] Address: [address] [place] [address] Performed By: #### T SCR ####CC MAIN BLOOD BANKCLIA [id number] [address] Start: 04-08-2023 Echocardiography ROSE SAUCEDO Start: 04-07-2023 Echocardiography ROSE SAUCEDO Start: 04-07-2023 Antibody screen ROSE SAUCEDO Comment on above: Order Comment: Specimen Type: BLOOD SPEC IMENOrdering Facility: [facility] Address: [address] [place] [address] Performed By: #### T SCR ####CC MAIN BLOOD BANKCLIA [id number] [address] Start: 04-06-2023 H/O: liver recipient Liver transplant recipient Liver Coordinator Work Phone: Start: 04-04-2023 Antibody screen ROSE SAUCEDO Comment on above: Order Comment: Specimen Type: BLOOD SPEC IMENOrdering Facility: [facility] Address: [address] [place], [place] [id number] Performed By: #### T SCR ####CC MAIN BLOOD BANKCLIA [id number] [address] Start: 01-20-2023 Ct abdomen w/contrast material Hortensia frye RN Start: 11-20-2022 Antibody screen ROSE SAUCEDO Comment on above: Order Comment: Specimen Type: BLOOD SPEC IMENOrdering Facility: [facility] Address: [address] [place], [place] [id number] Performed By: #### T SCR ####CC MAIN BLOOD BANKCLIA [id number] [address] [place] [address] [place] Start: 11-20-2022 Dup-scan artl prudence abdl/pel/scrot&/rpr orgn com Hortensia Angeles RN Start: 11-20-2022 US ABD LIVER VASCULAR Hortensia Angeles RN Start: 07-18-2022 Esophagogastroduodenoscopy Frances PEPE Start: 05-23-2022 Esophagogastroduodenoscopy Daniels [email or web address] Start: 05-13-2022 Ct abdomen w/contrast material Treva Wolff MD Work Phone: Start: 05-13-2022 Ct thorax w/contrast material Treva Wolff MD Work Phone: Start: 04-30-2022 Esophagogastroduodenoscopy Daniels Blip Entire transplanted liver (body structure) MAGGY SUAREZ H/O: liver recipient Liver repla andrew by transplant (HCC) Liver Txp Coordinator Work Phone: H/O: liver recipient Liver repla andrew by transplant (HCC) Selma eDcker MD Work Phone: H/O: liver recipient Liver trans plant recipient (HCC) Thea Garcia PA-C Work Phone: H/O: liver recipient Liver repla andrew by transplant (HCC) Rose Saucedo APRN.POULTRY SLAUGHTERER Work Phone: H/O: liver recipient Liver trans plant recipient (HCC) Amanda Villarreal MD Work Phone: Plan of Treatment Date Care Activity Detail Author Start: 03-13-2032 [facility] Start: 04-11-2028 Lipid 1996 panel - Serum or Plasma Lipid Screening [facility] Start: 04-11-2028 LIPID SCREEN LIPID SCREEN [facility] Start: 05-12-2027 LIPID SCREEN LIPID SCREEN [facility] Start: 04-30-2024 BP CONTROLLED (<130/80) BP CONTROLLED (<130/80) [facility] Start: 04-15-2024 BP CONTROLLED (<130/80) BP CONTROLLED (<130/80) [place] [facility] Start: 05-14-2023 BP CONTROLLED (<130/80) BP CONTROLLED (<130/80) [place] [facility] Start: 05-04-2023 End: 04-01-2024 Echocardiography ECHO Cardiology Routine Alcoholic cirrhosis of liver with ascites (HCC) Expected: 05/04/2023, Expires: 04/01/2024 [facility] Work Phone: Comment on above: Expected: 05/04/2023, Expires: 4 Start: 04-24-2023 Influenza vaccination [facility] Start: 04-15-2023 End: 06-15-2023 CBC W Auto Differential panel - Blood CBC + DIFF Lab Routine Liver replaced by transplant (HCC) Expected: 04/15/2023, Expires: 06/15/2023 [facility] Work Phone: Comment on above: Expected: 04/15/2023, Expires: 3 Start: 04-15-2023 End: 06-15-2023 Comprehensive metabolic 2000 panel - Serum or Plasma COMP METABOLIC PANEL Lab Routine Liver replaced by transplant (HCC) Expected: 04/15/2023, Expires: 06/15/2023 [facility] Work Phone: Comment on above: Expected: 04/15/2023, Expires: 3 Start: 04-15-2023 End: 06-15-2023 Gamma glutamyl transferase [Enzymatic activity/volume] in Serum or Plasma GGT BLD Lab Routine Liver replaced by transplant (HCC) Expected: 04/15/2023, Expires: 06/15/2023 [facility] Work Phone: Comment on above: Expected: 04/15/2023, Expires: 3 Start: 04-15-2023 End: 06-15-2023 Magnesium [Mass/volume] in Serum or Plasma MAGNESIUM BLD Lab Routine Liver replaced by transplant (HCC) Expected: 04/15/2023, Expires: 06/15/2023 [facility] Work Phone: Comment on above: Expected: 04/15/2023, Expires: Start: 04-15-2023 End: 06-15-2023 Phosphate [Mass/volume] in Serum or Plasma PHOSPHORUS INORGANIC Lab Routine Liver replaced by transplant (HCC) Expected: 04/15/2023, Expires: 06/15/2023 [facility] Work Phone: Comment on above: Expected: 04/15/2023, Expires: 3 Start: 04-15-2023 End: 06-15-2023 Tacrolimus [Mass/volume] in Blood TACROLIMUS/[id number] BL Lab Routine Liver replaced by transplant (HCC) Expected: 04/15/2023, Expires: 06/15/2023 [facility] Work Phone: Comment on above: Expected: 04/15/2023, Expires: Start: 04-06-2023 End: 06-06-2023 Comprehensive metabolic 2000 panel - Serum or Plasma COMP METABOLIC PANEL Lab Routine ALISON (acute kidney injury) (HCC) Expected: 04/06/2023, Expires: 06/06/2023 [facility] Work Phone: Comment on above: Expected: 04/06/2023, Expires: 3 Start: 01-10-2023 End: 01-10-2024 Ct abdomen w/contrast material CT LIVER W IVCON Radiology Routine Abnormal results of liver function studies Alcoholic cirrhosis of liver with ascites (HCC) Expected: 01/10/2023, Expires: 01/10/2024 [facility] Work Phone: Comment on above: Expected: 01/10/2023, Expires: 4 Start: 01-10-2023 End: 03-12-2023 TOX SCREEN ROUT UR TOX SCREEN ROUT UR Lab Routine Alcoholic cirrhosis of liver with ascites (HCC) Expected: 01/10/2023, Expires: 03/12/2023 [facility] Work Phone: Comment on above: Expected: 01/10/2023, Expires: 3 Start: 12-11-2022 End: 02-10-2023 [id number] [Mass/volume] in Serum or Plasma ALPHA FETOPROTEIN BL Lab Routine Alcoholic cirrhosis of liver with ascites (HCC) Expected: 12/11/2022 (Approximate), Expires: 02/10/2023 [facility] Work Phone: Comment on above: Expected: 12/11/2022 (Approximate), Expi res: 02/10/2023 Start: 12-11-2022 End: 02-10-2023 Basic metabolic 2000 panel - Serum or Plasma BASIC METABOLIC PNL Lab Routine Alcoholic cirrhosis of liver with ascites (HCC) Expected: 12/11/2022, Expires: 02/10/2023 [facility] Work Phone: Comment on above: Expected: 12/11/2022, Expires: 3 Start: 12-11-2022 End: 02-10-2023 CBC W Auto Differential panel - Blood CBC + DIFF Lab STAT Alcoholic cirrhosis of liver with ascites (HCC) Expected: 12/11/2022 (Approximate), Expires: 02/10/2023 [facility] Work Phone: Comment on above: Expected: 12/11/2022 (Approximate), Expi res: 02/10/2023 Start: 12-11-2022 End: 02-10-2023 Hepatic function 2000 panel - Serum or Plasma HEPATIC FUNCTION PNL Lab Routine Alcoholic cirrhosis of liver with ascites (HCC) Expected: 12/11/2022, Expires: 02/10/2023 [facility] Work Phone: Comment on above: Expected: 12/11/2022, Expires: 3 Start: 12-11-2022 End: 02-10-2023 PHOSPHATIDYLETHANOL (PETH) PHOSPHATIDYLETHANOL (PETH) Lab Routine Alcoholic cirrhosis of liver with ascites (HCC) Expected: 12/11/2022, Expires: 02/10/2023 [facility] Work Phone: Comment on above: Expected: 12/11/2022, Expires: 3 Start: 11-11-2022 Hepatitis A Vaccine (2 of 3 - Hep A Twinrix risk 3-dose series) Hepatitis A Vaccine (2 of 3 - Hep A Twinrix risk 3-dose series) [facility] Start: 11-11-2022 Hepatitis B Vaccine (2 of 3 - Hep B Twinrix 3-dose series) Hepatitis B Vaccine (2 of 3 - Hep B Twinrix 3-dose series) [facility] Start: 10-29-2022 End: 12-29-2022 [id number] [Mass/volume] in Serum or Plasma ALPHA FETOPROTEIN BL Lab Routine Alcoholic cirrhosis of liver with ascites (HCC) Expected: 10/29/2022 (Approximate), Expires: 12/29/2022 [facility] Work Phone: Comment on above: Expected: 10/29/2022 (Approximate), Expi res: 12/29/2022 Start: 10-29-2022 End: 12-29-2022 CBC panel - Blood by Automated count CBC Lab Routine Alcoholic cirrhosis of liver with ascites (HCC) Expected: 10/29/2022 (Approximate), Expires: 12/29/2022 [facility] Work Phone: Comment on above: Expected: 10/29/2022 (Approximate), Expi res: 12/29/2022 Start: 10-29-2022 End: 12-29-2022 Comprehensive metabolic 2000 panel - Serum or Plasma COMP METABOLIC PANEL Lab Routine Alcoholic cirrhosis of liver with ascites (HCC) Expected: 10/29/2022 (Approximate), Expires: 12/29/2022 [facility] Work Phone: Comment on above: Expected: 10/29/2022 (Approximate), Expi res: 12/29/2022 Start: 10-29-2022 End: 11-08-2023 Dup-scan artl prudence abdl/pel/scrot&/rpr orgn com US DOPPLER COMPLETE Radiology Routine Alcoholic cirrhosis of liver with ascites (HCC) Expected: 10/29/2022 (Approximate), Expires: 11/08/2023 [facility] Work Phone: Comment on above: Expected: 10/29/2022 (Approximate), Expi res: 11/08/2023 Start: 10-29-2022 End: 12-29-2022 PHOSPHATIDYLETHANOL (PETH) PHOSPHATIDYLETHANOL (PETH) Lab Routine Alcoholic cirrhosis of liver with ascites (HCC) Expected: 10/29/2022 (Approximate), Expires: 12/29/2022 [facility] Work Phone: Comment on above: Expected: 10/29/2022 (Approximate), Expi res: 12/29/2022 Start: 10-29-2022 End: 12-29-2022 PT panel - Platelet poor plasma by Coagulation assay PROTHROMBIN TIME/PT Lab Routine Alcoholic cirrhosis of liver with ascites (HCC) Expected: 10/29/2022 (Approximate), Expires: 12/29/2022 [facility] Work Phone: Comment on above: Expected: 10/29/2022 (Approximate), Expi res: 12/29/2022 Start: 10-29-2022 End: 12-29-2022 TOX SCREEN ROUT UR TOX SCREEN ROUT UR Lab Routine Alcoholic cirrhosis of liver with ascites (HCC) Expected: 10/29/2022 (Approximate), Expires: 12/29/2022 [facility] Work Phone: Comment on above: Expected: 10/29/2022 (Approximate), Expi res: 12/29/2022 Start: 10-29-2022 End: 12-29-2022 TYPE + SCREEN TYPE + SCREEN Blood Bank Routine Alcoholic cirrhosis of liver with ascites (HCC) Expected: 10/29/2022 (Approximate), Expires: 12/29/2022 [facility] Work Phone: Comment on above: Expected: 10/29/2022 (Approximate), Expi res: 12/29/2022 Start: 10-29-2022 End: 11-08-2023 US ABD LIVER VASCULAR US ABD LIVER VASCULAR Radiology Routine Alcoholic cirrhosis of liver with ascites (HCC) Expected: 10/29/2022 (Approximate), Expires: 11/08/2023 [facility] Work Phone: Comment on above: Expected: 10/29/2022 (Approximate), Expi res: 11/08/2023 Start: 10-21-2022 End: 12-21-2022 CBC panel - Blood by Automated count CBC Lab Routine Alcoholic cirrhosis of liver with ascites (HCC) Expected: 10/21/2022, Expires: 12/21/2022 [facility] Work Phone: Comment on above: Expected: 10/21/2022, Expires: 3 Start: 10-21-2022 End: 12-21-2022 Comprehensive metabolic 2000 panel - Serum or Plasma COMP METABOLIC PANEL Lab Routine Alcoholic cirrhosis of liver with ascites (HCC) Expected: 10/21/2022, Expires: 12/21/2022 [facility] Work Phone: Comment on above: Expected: 10/21/2022, Expires: 3 Start: 10-21-2022 End: 12-21-2022 PHOSPHATIDYLETHANOL (PETH) PHOSPHATIDYLETHANOL (PETH) Lab Routine Alcoholic cirrhosis of liver with ascites (HCC) Expected: 10/21/2022, Expires: 12/21/2022 [facility] Work Phone: Comment on above: Expected: 10/21/2022, Expires: 3 Start: 10-21-2022 End: 12-21-2022 PT panel - Platelet poor plasma by Coagulation assay PROTHROMBIN TIME/PT Lab Routine Alcoholic cirrhosis of liver with ascites (HCC) Expected: 10/21/2022, Expires: 12/21/2022 [facility] Work Phone: Comment on above: Expected: 10/21/2022, Expires: 3 Start: 08-24-2022 DEPRESSION ASSESSMENT DEPRESSION ASSESSMENT [facility] Start: 07-31-2022 End: 09-30-2022 CBC panel - Blood by Automated count CBC Lab Routine Alcoholic cirrhosis of liver with ascites (HCC) Expected: 07/31/2022 (Approximate), Expires: 09/30/2022 [facility] Work Phone: Comment on above: Expected: 07/31/2022 (Approximate), Expi res: 09/30/2022 Start: 07-31-2022 End: 09-30-2022 Comprehensive metabolic 2000 panel - Serum or Plasma COMP METABOLIC PANEL Lab Routine Alcoholic cirrhosis of liver with ascites (HCC) Expected: 07/31/2022 (Approximate), Expires: 09/30/2022 [facility] Work Phone: Comment on above: Expected: 07/31/2022 (Approximate), Expi res: 09/30/2022 Start: 07-31-2022 End: 09-30-2022 HERPES SIMPLEX TYPE 1 AND 2 IG HERPES SIMPLEX TYPE 1 AND 2 IG Lab Routine Alcoholic cirrhosis of liver with ascites (HCC) Expected: 07/31/2022 (Approximate), Expires: 09/30/2022 [facility] Work Phone: Comment on above: Expected: 07/31/2022 (Approximate), Expi res: 09/30/2022 Start: 07-31-2022 End: 06-26-2023 LIVER REC HLA AB SCREEN LIVER REC HLA AB SCREEN ALLOGEN JOSS Alcoholic cirrhosis of liver with ascites (HCC) Expected: 07/31/2022 (Approximate), Expires: 06/26/2023 [facility] Work Phone: Comment on above: Expected: 07/31/2022 (Approximate), Expi res: 06/26/2023 Start: 07-31-2022 End: 09-30-2022 PHOSPHATIDYLETHANOL (PETH) PHOSPHATIDYLETHANOL (PETH) Lab Routine Alcoholic cirrhosis of liver with ascites (HCC) Expected: 07/31/2022 (Approximate), Expires: 09/30/2022 [facility] Work Phone: Comment on above: Expected: 07/31/2022 (Approximate), Expi res: 09/30/2022 Start: 07-31-2022 End: 09-30-2022 PT panel - Platelet poor plasma by Coagulation assay PROTHROMBIN TIME/PT Lab Routine Alcoholic cirrhosis of liver with ascites (HCC) Expected: 07/31/2022 (Approximate), Expires: 09/30/2022 [facility] Work Phone: Comment on above: Expected: 07/31/2022 (Approximate), Expi res: 09/30/2022 Start: 07-31-2022 End: 09-30-2022 TYPE + SCREEN TYPE + SCREEN Blood Bank Routine Alcoholic cirrhosis of liver with ascites (HCC) Expected: 07/31/2022 (Approximate), Expires: 09/30/2022 [facility] Work Phone: Comment on above: Expected: 07/31/2022 (Approximate), Expi res: 09/30/2022 Start: 05-12-2022 End: 04-30-2023 25-hydroxyvitamin D3 [Mass/volume] in Serum or Plasma VITAMIN D 25 HYDROXY Lab Routine Alcoholic cirrhosis of liver with ascites (HCC) Liver transplant candidate Expected: 05/12/2022, Expires: 04/30/2023 [facility] Work Phone: Comment on above: Expected: 05/12/2022, Expires: 3 Start: 05-12-2022 End: 04-30-2023 ALPHA 1 ANTITRYPSIN PHENOTYPE ALPHA 1 ANTITRYPSIN PHENOTYPE Lab Routine Alcoholic cirrhosis of liver with ascites (HCC) Liver transplant candidate Expected: 05/12/2022, Expires: 04/30/2023 [facility] Work Phone: Comment on above: Expected: 05/12/2022, Expires: 3 Start: 05-12-2022 End: 04-30-2023 Alpha tocopherol [Mass/volume] in Serum or Plasma VITAMIN E/TOCOPHEROL Lab Routine Alcoholic cirrhosis of liver with ascites (HCC) Liver transplant candidate Expected: 05/12/2022, Expires: 04/30/2023 [facility] Work Phone: Comment on above: Expected: 05/12/2022, Expires: 3 Start: 05-12-2022 End: 04-30-2023 [id number] [Mass/volume] in Serum or Plasma ALPHA FETOPROTEIN BL Lab Routine Alcoholic cirrhosis of liver with ascites (HCC) Liver transplant candidate Expected: 05/12/2022, Expires: 04/30/2023 [facility] Work Phone: Comment on above: Expected: 05/12/2022, Expires: 3 Start: 05-12-2022 End: 04-30-2023 aPTT in Platelet poor plasma by Coagulation assay ACTIVATED PTT Lab Routine Alcoholic cirrhosis of liver with ascites (HCC) Liver transplant candidate Expected: 05/12/2022, Expires: 04/30/2023 [facility] Work Phone: Comment on above: Expected: 05/12/2022, Expires: 3 Start: 05-12-2022 End: 04-30-2023 Basic metabolic 2000 panel - Serum or Plasma BASIC METABOLIC PNL Lab Routine Alcoholic cirrhosis of liver with ascites (HCC) Liver transplant candidate Expected: 05/12/2022, Expires: 04/30/2023 [facility] Work Phone: Comment on above: Expected: 05/12/2022, Expires: 3 Start: 05-12-2022 End: 04-30-2023 BLOOD TB SCREEN BLOOD TB SCREEN Lab Routine Alcoholic cirrhosis of liver with ascites (HCC) Liver transplant candidate Expected: 05/12/2022, Expires: 04/30/2023 [facility] Work Phone: Comment on above: Expected: 05/12/2022, Expires: 3 Start: 05-12-2022 End: 04-30-2023 CBC W Auto Differential panel - Blood CBC + DIFF Lab STAT Alcoholic cirrhosis of liver with ascites (HCC) Liver transplant candidate Expected: 05/12/2022, Expires: 04/30/2023 [facility] Work Phone: Comment on above: Expected: 05/12/2022, Expires: 3 Start: 05-12-2022 End: 04-30-2023 Chronic hepatitis differentiation between hepatitis B and C virus panel - Serum or Plasma HEP REMOTE PANEL BL Lab Routine Alcoholic cirrhosis of liver with ascites (HCC) Liver transplant candidate Expected: 05/12/2022, Expires: 04/30/2023 [facility] Work Phone: Comment on above: Expected: 05/12/2022, Expires: 3 Start: 05-12-2022 End: 05-30-2023 Ct abdomen w/contrast material CT LIVER W IVCON Radiology Routine Alcoholic cirrhosis of liver with ascites (HCC) Liver transplant candidate Expected: 05/12/2022, Expires: 05/30/2023 [facility] Work Phone: Comment on above: Expected: 05/12/2022, Expires: 3 Start: 05-12-2022 End: 05-30-2023 Ct thorax w/o contrast material CT CHEST WO IVCON Radiology Routine Alcoholic cirrhosis of liver with ascites (HCC) Liver transplant candidate Expected: 05/12/2022, Expires: 05/30/2023 [facility] Work Phone: Comment on above: Expected: 05/12/2022, Expires: 3 Start: 05-12-2022 End: 04-30-2023 Cytomegalovirus IgG Ab [Units/volume] in Serum or Plasma CMV IGG ANTIBODY BL Lab Routine Alcoholic cirrhosis of liver with ascites (HCC) Liver transplant candidate Expected: 05/12/2022, Expires: 04/30/2023 [facility] Work Phone: Comment on above: Expected: 05/12/2022, Expires: 3 Start: 05-12-2022 End: 04-30-2023 ECG COMPLETE ECG COMPLETE ECG Routine Alcoholic cirrhosis of liver with ascites (HCC) Liver transplant candidate Expected: 05/12/2022, Expires: 04/30/2023 [facility] Work Phone: Comment on above: Expected: 05/12/2022, Expires: 3 Start: 05-12-2022 End: 04-30-2023 Echocardiography ECHO Cardiology Routine Alcoholic cirrhosis of liver with ascites (HCC) Liver transplant candidate Expected: 05/12/2022, Expires: 04/30/2023 [facility] Work Phone: Comment on above: Expected: 05/12/2022, Expires: 3 Start: 05-12-2022 End: 04-30-2023 Татьяна Marino virus capsid IgG Ab [Units/volume] in Serum ТАТЬЯНА-MARINO VCA IGG Lab Routine Alcoholic cirrhosis of liver with ascites (HCC) Liver transplant candidate Expected: 05/12/2022, Expires: 04/30/2023 [facility] Work Phone: Comment on above: Expected: 05/12/2022, Expires: 3 Start: 05-12-2022 End: 04-30-2023 Ferritin [Mass/volume] in Serum or Plasma FERRITIN BLD Lab Routine Alcoholic cirrhosis of liver with ascites (HCC) Liver transplant candidate Expected: 05/12/2022, Expires: 04/30/2023 [facility] Work Phone: Comment on above: Expected: 05/12/2022, Expires: 3 Start: 05-12-2022 End: 04-30-2023 Hepatic function 2000 panel - Serum or Plasma HEPATIC FUNCTION PNL Lab Routine Alcoholic cirrhosis of liver with ascites (HCC) Liver transplant candidate Expected: 05/12/2022, Expires: 04/30/2023 [facility] Work Phone: Comment on above: Expected: 05/12/2022, Expires: 3 Start: 05-12-2022 End: 04-30-2023 HEPATITIS A ANTIBODY, IGG HEPATITIS A ANTIBODY, IGG Lab Routine Alcoholic cirrhosis of liver with ascites (HCC) Liver transplant candidate Expected: 05/12/2022, Expires: 04/30/2023 [facility] Work Phone: Comment on above: Expected: 05/12/2022, Expires: 3 Start: 05-12-2022 End: 04-30-2023 HIV 1+2 Ab [Presence] in Serum or Plasma by Immunoassay HIV 1 2 COMBO(AG/AB),WITH REFLEX TO DIFFERENTIATION Lab Routine Alcoholic cirrhosis of liver with ascites (HCC) Liver transplant candidate Expected: 05/12/2022, Expires: 04/30/2023 [facility] Work Phone: Comment on above: Expected: 05/12/2022, Expires: 3 Start: 05-12-2022 End: 04-30-2023 Iron and Iron binding capacity panel - Serum or Plasma IRON + TIBC Lab Routine Alcoholic cirrhosis of liver with ascites (HCC) Liver transplant candidate Expected: 05/12/2022, Expires: 04/30/2023 [facility] Work Phone: Comment on above: Expected: 05/12/2022, Expires: 3 Start: 05-12-2022 End: 04-30-2023 Lipid 1996 panel - Serum or Plasma LIPID PANEL BASIC Lab Routine Alcoholic cirrhosis of liver with ascites (HCC) Liver transplant candidate Expected: 05/12/2022, Expires: 04/30/2023 [facility] Work Phone: Comment on above: Expected: 05/12/2022, Expires: 3 Start: 05-12-2022 End: 04-30-2023 LIVER REC INIT W/U LIVER REC INIT W/U ALLOGEN Routine Alcoholic cirrhosis of liver with ascites (HCC) Liver transplant candidate Expected: 05/12/2022, Expires: 04/30/2023 [facility] Work Phone: Comment on above: Expected: 05/12/2022, Expires: 3 Start: 05-12-2022 End: 07-12-2022 PHOSPHATIDYLETHANOL (PETH) PHOSPHATIDYLETHANOL (PETH) Lab Routine Alcoholic cirrhosis of liver with ascites (HCC) Liver transplant candidate Expected: 05/12/2022, Expires: 07/12/2022 [facility] Work Phone: Comment on above: Expected: 05/12/2022, Expires: 2 Start: 05-12-2022 End: 04-30-2023 PT panel - Platelet poor plasma by Coagulation assay PROTHROMBIN TIME/PT Lab STAT Alcoholic cirrhosis of liver with ascites (HCC) Liver transplant candidate Expected: 05/12/2022, Expires: 04/30/2023 [facility] Work Phone: Comment on above: Expected: 05/12/2022, Expires: 3 Start: 05-12-2022 End: 04-30-2023 Retinol [Mass/volume] in Serum or Plasma VITAMIN A/RETINOL Lab Routine Alcoholic cirrhosis of liver with ascites (HCC) Liver transplant candidate Expected: 05/12/2022, Expires: 04/30/2023 [facility] Work Phone: Comment on above: Expected: 05/12/2022, Expires: 3 Start: 05-12-2022 End: 04-30-2023 RUBEOLA (MEASLES)IGG RUBEOLA (MEASLES)IGG Lab Routine Alcoholic cirrhosis of liver with ascites (HCC) Liver transplant candidate Expected: 05/12/2022, Expires: 04/30/2023 [facility] Work Phone: Comment on above: Expected: 05/12/2022, Expires: 3 Start: 05-12-2022 End: 05-30-2023 SPIROMETRY BASELINE ONLY SPIROMETRY BASELINE ONLY PFT Routine Alcoholic cirrhosis of liver with ascites (HCC) Liver transplant candidate Expected: 05/12/2022, Expires: 05/30/2023 [facility] Work Phone: Comment on above: Expected: 05/12/2022, Expires: 3 Start: 05-12-2022 End: 04-30-2023 SYPHILIS TOTAL W/REFLEX SYPHILIS TOTAL W/REFLEX Lab Routine Alcoholic cirrhosis of liver with ascites (HCC) Liver transplant candidate Expected: 05/12/2022, Expires: 04/30/2023 [facility] Work Phone: Comment on above: Expected: 05/12/2022, Expires: 3 Start: 05-12-2022 End: 04-30-2023 Thyrotropin [Units/volume] in Serum or Plasma TSH BLD Lab Routine Alcoholic cirrhosis of liver with ascites (HCC) Liver transplant candidate Expected: 05/12/2022, Expires: 04/30/2023 [facility] Work Phone: Comment on above: Expected: 05/12/2022, Expires: 3 Start: 05-12-2022 End: 07-12-2022 TOX SCREEN ROUT UR TOX SCREEN ROUT UR Lab Routine Alcoholic cirrhosis of liver with ascites (HCC) Liver transplant candidate Expected: 05/12/2022, Expires: 07/12/2022 [facility] Work Phone: Comment on above: Expected: 05/12/2022, Expires: 2 Start: 05-12-2022 End: 04-30-2023 TOXICOLOGY PANEL BLD TOXICOLOGY PANEL BLD Lab Routine Alcoholic cirrhosis of liver with ascites (HCC) Liver transplant candidate Expected: 05/12/2022, Expires: 04/30/2023 [facility] Work Phone: Comment on above: Expected: 05/12/2022, Expires: 3 Start: 05-12-2022 End: 04-30-2023 TRANSPLANT CONFIRM ABO/RH TRANSPLANT CONFIRM ABO/RH Blood Bank Routine Alcoholic cirrhosis of liver with ascites (HCC) Liver transplant candidate Expected: 05/12/2022, Expires: 04/30/2023 [facility] Work Phone: Comment on above: Expected: 05/12/2022, Expires: 3 Start: 05-12-2022 End: 04-30-2023 TYPE + SCREEN TYPE + SCREEN Blood Bank STAT Alcoholic cirrhosis of liver with ascites (HCC) Liver transplant candidate Expected: 05/12/2022, Expires: 04/30/2023 [facility] Work Phone: Comment on above: Expected: 05/12/2022, Expires: 3 Start: 05-12-2022 End: 04-30-2023 VARICELLA ZOSTER IGG VARICELLA ZOSTER IGG Lab Routine Alcoholic cirrhosis of liver with ascites (HCC) Liver transplant candidate Expected: 05/12/2022, Expires: 04/30/2023 [facility] Work Phone: Comment on above: Expected: 05/12/2022, Expires: 3 Start: 04-24-2022 Influenza vaccination INFLUENZA (#1) [facility] Start: 08-24-2021 DEPRESSION ASSESSMENT DEPRESSION ASSESSMENT [facility] Start: 2016 LIPID SCREEN LIPID SCREEN [facility] Start: 2000 HEPATITIS A (1 of 2 - Risk 2-dose series) HEPATITIS A (1 of 2 - Risk 2-dose series) [facility] Start: 2000 Hepatitis A Vaccine (1 of 2 - Risk 2-dose series) Hepatitis A Vaccine (1 of 2 - Risk 2-dose series) [facility] Start: 2000 SHINGRIX VACCINE (1 of 2) SHINGRIX VACCINE (1 of 2) [facility] Start: 1999 ANNUAL PCP TEAM CHRONIC DISEASE VISIT ANNUAL PCP TEAM CHRONIC DISEASE VISIT [facility] Start: 1999 BP CONTROLLED (<130/80) BP CONTROLLED (<130/80) [facility] Start: 1999 HEPATITIS C SCREENING HEPATITIS C SCREENING [facility] [facility] Start: 1999 HIV SCREENING HIV SCREENING [facility] Start: 1993 Adult depression screening assessment DEPRESSION SCREENING [facility] Start: 1987 PNEUMOCOCCAL (1 - PCV) PNEUMOCOCCAL (1 - PCV) [facility] Start: 1987 Pneumococcal vaccination Pneumococcal Vaccine (1 - PCV) [facility] Start: 1986 COVID-19 VACCINE (#1) COVID-19 VACCINE (#1) [facility] Start: 1982 HEPATITIS A (1 of 2 - Risk 2-dose series) HEPATITIS A (1 of 2 - Risk 2-dose series) [facility] Start: 1981 COVID-19 VACCINE (#1) COVID-19 VACCINE (#1) [facility] Start: 1981 HEPATITIS B (1 of 3 - 3-dose series) HEPATITIS B (1 of 3 - 3-dose series) [facility] Start: 1981 Hepatitis B Vaccine (1 of 3 - 3-dose series) Hepatitis B Vaccine (1 of 3 - 3-dose series) [facility] ALLOGEN HLA-AB SUM RPT ALLOGEN H LA-AB SUM RPT Lab Routine 11/20/2022 1:04 PM EDT [facility] TOX SCREEN ROUT UR TOX SCREEN RO UT UR Lab Routine Alcoholic cirrhosis of liver with ascites (HCC) Ordered: 10/21/2022 [facility] Work Phone: Comment on above: Ordered[facility] 10/21/2022 [facility] Immunizations Immunization Date Immunization Notes Care Provider Alexey villalta 10-14-2022 hepatitis A and hepatitis B vaccine TREVA HART [facility] 03-13-2022 tetanus toxoid, reduced diphtheria toxoid, and acellular pertussis vaccine, adsorbed Daniels SALAM [facility] NEGATED: Highlighted row has not occurred!05-28-2023 influenza virus vaccine, unspecified formulation MAGGY SUAREZ [facility] NEGATED: Highlighted row has not occurred!06-12-2022 influenza virus vaccine, unspecified formulation Daniels SALAM [facility] NEGATED: Highlighted row has not occurred!05-08-2022 influenza virus vaccine, unspecified formulation Daniels SALAM [facility] NEGATED: Highlighted row has not occurred!04-24-2022 influenza virus vaccine, unspecified formulation Daniels SALAM [facility] Payers Date Payer Category Payer Unknown [id number] 2022 Unknown [id number] 1981 Unknown [id number] [id number] 1981 Unknown [id number] 2.16.8 [id number] 1981 Unknown [id number] 2.16.8 [id number] 1981 Unknown [id number] 2.16.8 [id number] 1981 Unknown [id number] 2.16.8 [id number] 1981 Unknown [id number] 2.16.8 [id number] 1981 Unknown [id number] 2.16.8 [id number] 1981 Unknown [id number] 2.16.8 [id number] 1981 Unknown [id number] 2.16.8 [id number] 1959 Self-pay [id number] Social History Date Type Detail Facility Start: 03-20-2022 End: 09-15-2023 Tobacco smoking status Heavy tobacco smoker (finding) [facility] Tobacco smoking status Never [facility] Start: 05-12-2022 End: 04-15-2023 Sex Assigned At Male [facility] Tobacco smoking stat [facility] Tobacco smoking consumption unknown [facility] Start: 1981 Sex Assigned At Not on file [facility] Start: 04-27-2022 End: 05-23-2022 Exposure to SARS-CoV-2 (event) Unable to assess [facility] Start: 05-12-2022 [facility] Work Phone: End: 04-03-2023 History of tobacco use Cigarette Smoker [facility] Work Phone: Start: 05-12-2022 End: 04-15-2023 Cigarettes smoked current (pack per day) - Reported 1 [facility] Start: 05-12-2022 End: 05-22-2023 Tobacco use and exposure Smokeless tobacco non-user [facility] Work Phone: Start: 05-12-2022 End: 05-22-2023 Alcohol intake Ex-drinker (finding) [facility] Start: 05-02-2022 End: 05-14-2022 Exposure to SARS-CoV-2 (event) Not sure [facility] How hard is it for y ou to pay for the very basics like food, housing, medical care, and heating Not very hard [facility] (I/We) worried roro (my/our) food would run out before (I/we) got money to buy more. Never true [facility] In the past 12 month s, was there a time when you were not able to pay the mortgage or rent on time? No [facility] Start: 05-22-2023 [facility] End: 04-03-2023 History of tobacco use Current smoker [facility] Functional Status Date Assessment Result Facility 09-15-2023 Functional Status N/A [facility] 07-18-2022 Functional Status N/A [facility] 06-12-2022 Functional Status N/A [facility] 05-23-2022 Functional Status N/A [facility] 04-30-2022 Functional Status N/A [facility] 04-09-2022 No [facility] 03-20-2022 Functional Status N/A [facility] [place] Clinical Notes 03-20-2022 to 09-15-2023 Telephone Encounter - Christine To RN - 07/07/2023 11:31 AM ESTTelephone Encounter - Fariba Lopez RPh - 07/07/2023 11:27 AM ESTPatient Amanda Alvarez [...] drinks. ?Hard candy. ?Chewing gum. Medicines Take ecxi-gqg-zqnwwyo and prescription medicines only as told by [...] provider. Document Revised: 03/12/2021 Document Reviewed: 03/12/2021 [employer] Patient Education 2022 [employer]. Follow Up Care 07/31/2023 10:35:13 With:MAGGY SUAREZ PA-C, URL Address: [address] [place] [address] When: Unknown [facility] [place] 08-26-2023 Note [facility] 07-07-2023 Miscellaneous Notes Patient's request for medication [...] approved, please e-script the attached order to [facility]. Thank you, Fariba Lopez [facility] [phone] documented in this encounter [facility] 07-06-2023 Miscellaneous Notes Patient's request for [...] approved, please e-script the attached order to [facility]. Thank you, Jenny Singh [facility] [phone] documented in this encounter [facility] 07-03-2023 Miscellaneous Notes Noted tacrolimus levels [...] Christine To RN documented in this encounter [facility] 06-08-2023 Miscellaneous Notes Noted that there [...] to pharmacy. BAO Washington RN (Molly), BSN, [facility] Liver Dry End Operator documented in this encounter [facility] 06-06-2023 Note HNO ID: [id number] Author: Note, Interface Service: ? Author Type: ? Type: Progress Notes Filed: 06/06/2023 2:30 AM Note Text: Epic Scheduled Downtime: 06/06/2023 1:00:00 AM to 06/06/2023 1:28:00 AM [facility] 06-04-2023 Note [facility] 05-22-2023 Note [facility] 05-22-2023 Instructions Amanda Villarreal MD - 05/22/2023 1:12 PM EDT Nice to meet you. Your ejection fraction has improved to normal. Continue your carvedilol twice a day. Stop hydralazine and isosorbide, both. Restart losartan 50 mg once a day. Get labs checked in a week. Otherwise I can see you in 6 months time. Goal BP is < 130/80. documented in this encounter [facility] 05-22-2023 History of Presen t illness Narrative Images from the original note were not included. [facility] SECTION OF HEART FAILURE and CARDIAC TRANSPLANT MEDICINE OUTPATIENT VISIT DATE May 22, 2023 OUTPATIENT VISIT TYPE New patient PRIMARY CARE PHYSICIAN: Kaushal Stewart MD [address] [place] [address] CHIEF COMPLAINT: Follow-up NURSING INTAKE (Patient s concerns and/or recent hospitalizations/ER visits): Kathy Haynes is a 43 year old male from [place], [place] here for cardiac evaluation after hospitalization 04/04-04/13/2023: HOSPITAL COURSE: Kathy Haynes is a 42 year old male with history of HTN, current smoker, and EtOH cirrhosis c/b portal HTN, ascites, splenomegaly, thrombocytopenia, EV s/p banding (04/2022) who 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 He is s/p DBD OLT, piggyback, PV main to PV main, donor AQUILES to donor AQUILES, [id number], NMP with organox on 04/04/23. MELD at [...] carvedilol, and isordil. Patient was transferred to [facility] on 04/09/23. Consult with allergy medicine who [...] ABNORMAL ECG Confirmed by STAN GRACE MD ([id number]) on 04/18/2023 6:09:49 PM Component Latest Ref [...] non-medical management as above. Amanda Villarreal MD, [facility] Section Of Heart Failure and Cardiac Transplant Medicine [facility] Desk [id number] [place] [address] documented in this encounter [facility] 04-30-2023 Note [facility] 04-30-2023 History of Presen t illness Narrative POST LIVER TRANSPLANT FOLLOW UP Kathy Haynes [id number] Date of Transplant: 04/04/23 Original liver diagnosis: [...] rubs. No ectopy Abdomen: soft, ND, NT Johana removed today Extremities: Extremities normal. No deformities, [...] *Pt. d/w Dr. Jeronimo Rose S CLARA Saucedo.POULTRY SLAUGHTERER documented in this encounter [facility] 04-22-2023 Note [facility] 04-22-2023 Miscellaneous Notes Patient's request for medication [...] to pharmacy. Christine To RN (Molly), BSN, [facility] Liver Dry End Operator documented in this encounter [facility] 04-17-2023 Miscellaneous Notes Received a call [...] frequent soft stools. Reached out to Dr. Decker to clarify on lasix dose and will update Rosa. Instructed to follow d/c instructions for lasix per cardiology recs at this time unless instructed otherwise by Dr. Decker. Noted cards appt scheduled for next week, instructed Rosa details in MyChart Instructed to call for any further issues or questions. Annamaria Hickey RN, BSN Liver Dry End Operator documented in this encounter [facility] 04-16-2023 Miscellaneous Notes Reached out to Kathy Haynes's s/o Rosa and drainage from drain removal [...] or questions. Annamaria Hickey RN, BSN Liver Dry End Operator documented in this encounter [facility] 04-15-2023 Note [facility] 04-15-2023 History of Presen t illness Narrative [...] 40 04/15/2023 Explant Pathology: FINAL DIAGNOSIS A. [place] liver and gallbladder, total hepatectomy and cholecystectomy: [...] in 2 weeks for staple removal Selma Decker MD documented in this encounter [facility] 04-14-2023 Miscellaneous Notes Follow up phone call to Rosa where Kathy Haynes was recently discharged Reviewed and verified that they will be going to lab tomorrow 04/15/23 as in-pt team would like to see labs prior to appt. Rosa provided list of lab locations, likely will go to [place] or [place] location. Reminded to go in the morning [...] Center 04/15/2023 1:15 PM Surgeons, Liver TXCTMN Mn A [facility] 04/22/2023 3:00 PM Deangelo Boland APRN.POULTRY SLAUGHTERER CARD [facility] ALAN Mn J [facility] 04/30/2023 3:30 PM Selma Decker MD TXCTMN Mn A [facility] 05/05/2023 12:30 PM CARD SURGICAL ECHO MAIN JB2 CAFSMN Mn J [facility] 05/22/2023 12:15 PM Amanda Villarreal MD CARD [facility] J [facility] Reviewed wounds, drains and dressing changes. - drain site removal leaking, Rosa thinks could use additional stitch- will assess tomorrow 04/15/23 and instructed to change dressing as needed. No s/s infection Reviewed nutritional status and supplements currently being used. - eating well with no nausea, no diarrhea. Drinking at least 64oz water/ day Reviewed office contact and after hours contact; [phone], coordinator contact Annamaria Hickey, BAO Liver Dry End Operator documented in this encounter [facility] 04-13-2023 Note [facility] 04-12-2023 Note [facility] 04-12-2023 Note [facility] 04-11-2023 Note [facility] 04-10-2023 Note [facility] 04-09-2023 Note [facility] 04-09-2023 Note [facility] 04-08-2023 Note [facility] 04-08-2023 Note [facility] 04-07-2023 Note [facility] 04-07-2023 Note [facility] 04-06-2023 Note [facility] 04-06-2023 Note [facility] 04-06-2023 Note [facility] 04-05-2023 Note [facility] 04-05-2023 Note [facility] 04-05-2023 Note [facility] 04-04-2023 Note [facility] 04-04-2023 Note [facility] 04-04-2023 Note [facility] 04-04-2023 Note [facility] 04-04-2023 Note [facility] 04-04-2023 Note [facility] 04-04-2023 Note HNO ID: [id number] Author: Note, Interface Service: ? Author Type: ? Type: Progress Notes Filed: 04/04/2023 2:25 AM Note Text: Epic Scheduled Downtime: 04/04/2023 1:00:13 AM to 04/04/2023 2:13:13 AM [facility] 04-04-2023 Miscellaneous Notes Called and informed pt of a liver offer per Dr. Decker. Informed pt that donors are tested prior [...] transplant. Pt agreed to come to the [facility] for potential liver transplant. Explained the [...] COVID testing. Gave them contact info to [facility] [phone] and [facility] [phone]. Pt informed to bring medications from home. All questions answered at this time. Contact information was provided to the patient. K score 80% Pawel Machuca RN documented in this encounter [facility] 04-03-2023 Note [facility] 04-02-2023 History of Past i llness Narrative Problem Noted Date Diagnosed Date Resolved Date Nicotine use disorder, F17.2 04/02/2023 05/22/2023 Last Assessment & Plan: Assessment: active tobacco use, 2 packs per day up to the day of transplant Plan: nicotine patch encourage cessation nicotine gum PRN documented as of this encounter (statuses as of 06/02/2023) [facility]08-10-2023 History of Past illness Narrative* Problem Noted Date Diagnosed Date Resolved Date Nicotine use disorder, F17.2 04/02/2023 05/22/2023 Last Assessment & Plan: Assessment: active tobacco use, 2 packs per day up to the day of transplant Plan: nicotine patch encourage cessation nicotine gum PRN documented as of this encounter (statuses as of 06/09/2023) [facility]08-10-2023 History of Past illness Narrative* Problem Noted Date Diagnosed Date Resolved Date Nicotine use disorder, F17.2 04/02/2023 05/22/2023 Last Assessment & Plan: Assessment: active tobacco use, 2 packs per day up to the day of transplant Plan: nicotine patch encourage cessation nicotine gum PRN documented as of this encounter (statuses as of 07/03/2023) [facility]08-10-2023 History of Past illness Narrative* Problem Noted Date Diagnosed Date Resolved Date Nicotine use disorder, F17.2 04/02/2023 05/22/2023 Last Assessment & Plan: Assessment: active tobacco use, 2 packs per day up to the day of transplant Plan: nicotine patch encourage cessation nicotine gum PRN documented as of this encounter (statuses as of 07/07/2023) [facility]08-10-20[facility] History of Past illness Narrative* Problem Noted Date Diagnosed Date Resolved Date Nicotine use disorder, F17.2 04/02/2023 05/22/2023 Last Assessment & Plan: Assessment: active tobacco use, 2 packs per day up to the day of transplant Plan: nicotine patch encourage cessation nicotine gum PRN documented as of this encounter (statuses as of 07/07/2023) [facility]-10-20[facility] History of Past illness Narrative* Problem Noted Date Diagnosed Date Resolved Date Nicotine use disorder, F17.2 04/02/2023 05/22/2023 Last Assessment & Plan: Assessment: active tobacco use, 2 packs per day up to the day of transplant Plan: nicotine patch encourage cessation nicotine gum PRN documented as of this encounter (statuses as of 07/19/2023) [facility]-10[facility]20[facility] History of Past illness Narrative* Problem Noted Date Diagnosed Date Resolved Date Nicotine use disorder, F17.2 04/02/2023 05/22/2023 Last Assessment & Plan: Assessment: active tobacco use, 2 packs per day up to the day of transplant Plan: nicotine patch encourage cessation nicotine gum PRN documented as of this encounter (statuses as of 07/22/2023) [facility]08-10-2023 History of Past illness Narrative* Problem Noted Date Diagnosed Date Resolved Date Nicotine use disorder, F17.2 04/02/2023 05/22/2023 Last Assessment & Plan: Assessment: active tobacco use, 2 packs per day up to the day of transplant Plan: nicotine patch encourage cessation nicotine gum PRN documented as of this encounter (statuses as of 07/23/2023) [address]10-2023 History of Past illness Narrative* Problem Noted Date Diagnosed Date Resolved Date Nicotine use disorder, F17.2 04/02/2023 05/22/2023 Last Assessment & Plan: Assessment: active tobacco use, 2 packs per day up to the day of transplant Plan: nicotine patch encourage cessation nicotine gum PRN documented as of this encounter (statuses as of 07/23/2023) [facility] History of Past illness Narrative* Problem Noted Date Diagnosed Date Resolved Date ALISON (acute kidney injury) 04/01/2023 documented as of this encounter (statuses as of 04/04/2023) [facility]08-09-2023 History of Past illness Narrative* Problem Noted Date Diagnosed Date Resolved Date ALISON (acute kidney injury) 04/01/2023 documented as of this encounter (statuses as of 04/04/2023) [facility]08-08-2023 Miscellaneous Notes* Telephone Encounter - Hortensia Angeles RN - 03/31/2023 3:26 PM EDT Patient had labs drawn at [facility] yesterday and they are scanned into [employer]. Creat went up to 2.2 which is [...] work today til 5pm. [facility] Miscellaneous Notes* Telephone Encounter - Hortensia Angeles RN - 03/31/2023 3:16 PM EDT Spoke with Girlfriennirav Madrigal, advised that patient is listed for liver transplant, MELD 25. Lab results used for listing obtained at [facility] dated 03/30/23: Na 134, Cr 2.2, TB [...] signs or symptoms of disease. 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 ABO Verification prior to Listing: Kathy Haynes's ABO blood type has been verified using [...] given to donor coordinator: Pawel Angeles RN Pre-Dry End Operator [facility] History of Present illness Narrative* Treva Loera MD - 03/23/2023 2:57 PM EDT virtual visit fup He has a PMHx of: - alcohol [...] plan for transplant Alcohol neuropathy, start neurontin Treva' Tanner EUGENE During this visit, I Spent 30 min reviewing labs, prior notes, imaging studies, and discussing diagnosis and differential diagnosis and plan of care . [facility] History of Present illness Narrative* Jazzmine Arango [...] January 20, 2023 TIME: 1:33 PM * Jerry Sweet, RT(R) - 01/20/2023 1:00 PM EDT Radiology Service [...] 20, 2023 1:54 PM [facility] Evaluation + Plan note Future Scheduled Tests Laboratory* Basic Metabolic Panel 12/15/22 * Ferritin 10/23/22 * Iron Level 10/23/22 * Vitamin B12 Level 10/23/22 * Vitamin B12 Level 11/27/22 [facility] 04-20-2023 Miscellaneous Notes* Telephone Encounter - Hortensia [...] and appreciated the call. documented in [facility] Miscellaneous Notes* Telephone Encounter - Hortensia Angeles [...] locally. All questions answered. documented in [facility] History of Present illness Narrative* Lobo Cronin, JULIETH - 11/26/2022 1:28 PM EDT OLTx Update to Original Psychosocial Evaluation Name: Kathy Haynes Medical Record: [id number] Assessment Date: November 26, 2022 Met with: [...] Patienthas completed substance use treatment program through [facility] and meets [facility]OTC guidelines. RECOMMENDATION: Recommend patient be approved for liver transplant pending completion of OLT evaluation, approval by Selection Committee, and confirmation of patient's suboxone prescription. CHEMICAL DEPENDENCY: Met with patient in clinic to discuss patient's progress in substance use treatment and developmentof insight. Patient states that he has completed his treatment program through [facility], and that he is set up [...] marijuana card, which he sent electronically. Patient's [place] [employer] ID# [id number] and expires 05/23/2023. Discussed with patient that his counselor from [facility] indicated that he tested positive for suboxone. [...] negative PEth 10/28 at [facility] and at [facility] on 11/20. Patient meets Standard [facility] Chemical Dependency Guidelines with three months sobriety and three months concurrent treatment. SHEILA Sen LISW-S, November 26, 2022 1:28 PM documented in this [facility] History of Present illness Narrative* JULIETH Sen - 10/20/2022 3:38 PM EST Spoke to patient's substance use treatment counselor Connie ([phone]), along with pt's RN Coordinator Lesley. Connie called to inquire about patient being prescribed suboxone, whichshe stated patient was positive for at last tox screen with [facility]. There is no record in pt's EMR [...] use treatment program as well as to CC. Connie stated she will provide updates on [...] substance use treatment and towards meeting standard OSOT chemical dependency guidelines. SHEILA Sen LISW-S, October 20, 2022 3:38 PM documented in this encounter[facility] [facility] Misc[facility] Notes* Addendum Note - Hortensia Angeles RN - 10/09/2022 11:26 AM ESTAddended by: HORTENSIA ANGELES on: 10/09/2022 11:26 AM Modules accepted: Orders documented in this encounterSelect Medical [facility] Miscellaneous Notes* Telephone Encounter - Hortensia Angeles [...] All other questions answered. documented in this encounterSelect Medical [facility]01-27-2023 Miscellaneous Notes* Telephone Encounter - Hortensia [...] he starts his rehab. documented in this encounterSelect Medical [facility]01-26-2023 History of Present illness Narrative* JULIETH Sen - 09/18/2022 4:07 PM EST OLTx Update to Original Psychosocial Evaluation Received return phone call from pt's substance use treatment counselor Connie ([phone] ex [phone]) with [facility]. Connie indicated that she is currently seeing [...] patient's relapse at the end of 05/2022, butalli was not aware that patient had a [...] required to [facility] the [facility] if there are any subsequent relapses or concerns regarding compliance. Recommendation: Recommend patient be deferred four (4) weeks from liver transplant listing in orderto begin substance use treatment participation and work towards meeting standard OSOTC chemical dependency guidelines. SHEILA Sen, JULIETH-S, September 18, 2022 4:07 PM documented in this encounterSelect Medical [facility]01-26-2023 Miscellaneous Notes* Telephone Encounter - Hortensia Angeles RN - 09/18/2022 9:37 AM EST I left a message for patients counselor Connie at [facility] [phone] ex [phone]- patient claims that she has been trying to reach our child welfare social worker Lobo. I asked that she call us back. I have also asked Lobo earlier in the week to reach out to her. Patient is interested in doing the 7 challenges as his rehab through [facility] and then they also have an aftercare program. documented in this encounterSelect Medical [facility]01-18-2023 Miscellaneous Notes* Telephone Encounter - Hortensia [...] await his return call. documented in this encounterSelect Medical [facility]01-12-2023 History of Present illness Narrative* Hortensia Angeles RN - 09/04/2022 12:37 PM EST The patient was re-presented at the Liver Transplant Chemical Dependency Subcommittee Meeting on 09/03/2022 and was deferred for 4 weeks. Patient does not meet chemical dependency guidelines set forth by the [place] [facility]. Narrative with diagnosis: [...] included: Yolis Mckeon MD Amanda Mey, BAO Martinez, BAO Romo, BAO Lamar, BAO Springer, Wanda Bruce MD Courtney Hale, JULIETH Correa, MD Lobo Cronin, JULIETH Velázquez, MD Cohen, Gloria Hayes, Geovanna Pritchett, JOSE Angeles, BAO English, MD Yudy Young, RD Amee Colbert, MD Roro Quiles MD Jean Morgano, RN documented in this encounterSelect Medical [facility]01-06-2023 Miscellaneous Notes* Telephone Encounter - Kina Corona - 08/29/2022 2:44 PM EST Called Kathy Haynes to remind them of an appointment with Dr. Wolff on 09/01/22. Phone number provided was incorrect. Phone number in chart is a disconnected number. Did sent MyChart reminder documented in this encounterSelect Medical [facility]12-15-2022 Miscellaneous Notes* Telephone Encounter - Hortensia [...] IOP. All questions answered. documented in this encounterSelect Medical Ohio[facility]12-15-2022 History of Present illness Narrative* Hortensia Angeles RN - 08/07/2022 12:10 PM EST The patient was re-presented at the Liver Transplant Chemical Dependency Subcommittee Meeting on 08/06/2022 and was deferred for 4 weeks. He was also given strike 1 since he had a relapse of alcohol in May. Patient does not meet chemical dependency guidelines set forth by the [place] [facility]. Narrative with diagnosis: [...] 42 years Attendees included: Aminah Woods, Tonya Szymanski, Joselyn Cruz, Cale Briggs MD Hoff-Borling, Supriya Bruce, Fiona Lugo OLY MD Servando Rodriguez MD Sulemon Chaudhry, MD Kothadia, Sonya, MD Bijan Eghtesad, MD Jamie Eckardt, PharmD Claritza English, BAO Farfan, JULIETH Dumont, BAO Springer, JULIETH Bradford, RN Jeronimo, MD Gabriel Eckert MD Iryna Kalinina, POULTRY SLAUGHTERER MD Nirav Nick, MD Connie Joya MD Lauren Lux, PAHusam Lamar, BAO Najera, BAO Espinosa, PAMD Gonzalo Crook, Jasmin Hernandez MD Amanda Pescatrice, JULIETH Mina, PAHusam Angeles, Sandra Garcia MD Natashia Rush, BAO Saucedo, POULTRY SLAUGHTERER MD Svetlana Guillen, MD Jayson Esparza, MD Gee Herrmann MD Crtalic, Yudy GARCIA documented in this encounterSelect Medical [facility] Hospital11-25-2022 Hospital Discharge instructions Patient Education 07/18/2022 [...] transplant. Follow these instructions at home: Take wace-vpo-jceixgs and prescription medicines only as told by [...] 10/30/2004 Document Revised: 07/23/2018 Document Reviewed: 05/12/2018 Quickflix Patient Education 2020 CallApp. 07/18/2022 10:29:03 Endoscopy, Care After Procedure [facility] ([facility] Endoscopy Care After Procedure Please read the instructions outlined below and refer to this sheet in the next few weeks. These discharge instructions provide you with general information on caring [facility] Your doctor may also give you specific [...] 03/24/2005 Document Re-Released: 02/01/2007 ExitCare Patient Information 2009 JobHive. Follow Up Care 06/12/2022 14:54:10 With:Frances PEPE Address: [address] [place] [address] [employer] (1) When:1 to 2 weeks Comments:Call for any problems. [facility]11-[facility] Miscellaneous Notes* Telephone Encounter - Hortensia Angeles RN - 07/02/2022 1:55 PM EST I spoke with patient last evening regarding positive peth test from 06/19/2022 of 104. When confronted about this he stated he may have had a drink at a [employer] constitution party that had something in it but he wasn't sure. He said he would make sure that this doesn't happen again. I told him that with his history he needs definitely needs to make every attempt to make sure this doesn't happen again. I advised him to call his SW Lobo and discuss this with him also. documented in this encounterSelect Medical [facility]11-03-2022 Miscellaneous Notes* Telephone Encounter - Hortensia [...] plan. All questions answered. documented in this encounterSelect Medical [facility]11-03-2022 History of Present illness Narrative* Hortensia Angeles RN - 06/26/2022 9:31 AM EDT The patient was presented at the Liver Transplant Chemical Dependency Subcommittee Meeting on 06/25/2022 and was deferred for 4 weeks. Patient does not meet chemical dependency guidelines set forth by the [place] [facility]. Narrative with diagnosis: [...] MD Roro Rodriguez MD Steve Firkins, MD Claritza English, BAO Farfan, JULIETH Colon, JULIETH Agarwal, PAMD Elizabeth Montes, BAO Najera, BAO Yanes, CLARA Velázquez, MD Gonzalo Woods, BAO Robb, PAHusam Martinez, BAO Cronin, JULIETH Alvarado, ALLEGRA Angeles, BAO Colbert, BAO Saucedo, POULTRY SLAUGHTERER Gee Foss, MD Teresa Berrios, STEPAN Jimenes [facility] Wanda Camarena documented in this encounterSelect Medical [facility]health [facility]10-25-2022 Evaluation + Plan note Future Scheduled Tests Laboratory* Basic Metabolic Panel 06/17/22 * CBC w/ Auto Diff 06/17/22 * PT 03/20/22 Radiology* XR Abdomen 1 View 03/20/22 * XR Spine Lumbosacral Minimum 4 Views 03/20/22 [facility] History of Present illness Narrative* Hortensia Angeles RN - 06/05/2022 9:30 AM EDT The patient was presented at the Liver Transplant Chemical Dependency Subcommittee Meeting on 06/04/2022 and was deferred for 4 weeks. Patient does not meet chemical dependency guidelines set forth by the [place] [facility]. Narrative with diagnosis: [...] Geovanna Jimenez MD Dian Jung Chiang, MD Donna Ferchill, RN Maura George, BAO Farfan, BAO Momin MD Lauren HOff-Borling Beth Hooley, LISW Anusha Kakolu Harshita Kuna Barb Mastroianni, RN Amanda Mey, BAO Hutchinson, ALLEGRA Baez MD Jean Morgano, RN Amanda Pescatrice, RN Lobo Pokryfky, ALLEGRA Bean, BAO Colbert, DEANNA Zhou MD Annie Sobotka, BAO Duncan, MD Gee Nuñez MD Brittany Williams, PA documented in this encounterSelect Medical [facility]10-10-2022 History of Present illness Narrative* Lobo Cronin, JULIETH - 06/02/2022 1:00 PM EDT Orthotopic Liver [...] White// Heritage [place] Citizen: Yes Preferred Language: Mauritian Lives now: Kathy Haynes [id number] [place] [address] Impressions: Social Support- Patient lives at home with his partner and his partner's two children in a two story house in [place], [place]. Patient's partner Rosa Chow will serve as the primary caregiver, while pt's stepdaughter Carlos Cummings will serve as the secondary caregiver. Patient has his mother or niece available asadditional caregiver support as needed. Patient will stay at home or secure local lodging in [place] for their post-transplant recovery and follow-up period. Insurance/Financial- Patient has adequate insurance coverage for transplant through their [place] plan. Pt's insurance isbought and paid for [...] History: Born: [place] Grew up where: [place] Parents: Pt was raised by: Mother and father Siblings: Two brothers Pt is the: Oldest Describes upbringing as: It was alright Life changing events: Parents divorce when patient was a teenager. 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 and [employer] Service: None Honorable discharge: N/A VA benefits: N/A Retirement/Custodial: Yes, DUI at age 22 Currently on [...] current residence:Five years Set up of home: [employer] Working Utilities: Yes Pets: Two dogs and three cats-Pt's mother or children can help care for pets as needed. Hobbies/Interests: Watching racing, watching football, spending time with children Community Supports: Restorationism: No Other supports: spouse/partner, adult children, parent(s), and friends Functioning Abilities: ADL's: is independent with all ADL's. Ambulation: No current problems noted Community Services/Agencies: None Driving: Yes Valid Boats Renter's License: Yes Access to Transporation: Yes Caregiving [...] at this time. 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 Compliant: Good with consistent follow through Motivation for a transplant: I want to feel better and be able to see my girls graduate. Living Donor: Pt's partner, mother, and brother. Discussed MELD score, evaluation process, selection committee, listing, waiting, the call, surgery,hospital recovery time, hospital stay, discharge, terminologist recovery Financial: Insurance: Commercial [place]-Through pt's parents. Prescription Coverage : Yes Which pharmacy [facility] you use[facility] [place], [place] Coverage for anti-rejection medications: Yes Travel/Lodging Benefits: Unknown Sources of Household income: Patient has household income through pt's employment and partner's employment. Disability (Y/N): No, but may apply for SSDI moving forward. Current Financial Concerns: None Plan for time away from work: Patient may apply for SSDI. Plan for lodging arrangements if needed: Patient will stay at or home or locally in [place] for post-transplant lodging during their follow-up period. Fundraising discussed/encouraged: Discussed with patient and provided fundraising information. Potential financial barriers to transplant: None Social Support: Where will you stay for your initial recovery?: Patient will stay at home or secure local lodging for post-transplant lodging during their follow-up period. Primary support person: Rosa Chow-Partner Availability 16/03 Driving: Yes Medical/Health Concerns: History of Hepatitis C Secondary support people: Carlos Cummings-Pt's stepdaughter Contact #: [phone] Availability 16/03 Driving: Yes Medical/Health Concerns: None [...] Care -Partner(s) read and signed- Patient and Peach Grower Commitment: Discussed verbally with patient and caregivers. [...] participate in treatment. Patient is positive for 02/03 relapse risk factors. Advance Directives: Living Will: None Durable Power of Roller Structural Mill: None Information given: Discussed with patient and provided instructions on how to complete advanced directives. SHEILA Sen LISW-S June 02, 2022 12:56 PM documented in this encounterSelect Medical [facility] Hospital09-30-2022 Hospital Discharge instructions Patient Education 05/23/2022 13:15:54 Endoscopy, Care After Procedure [facility] ([facility] Endoscopy Care After Procedure Please read the instructions outlined below and refer to this sheet in the next few weeks. These discharge instructions provide you with general information on caring for [facility] Your doctor may also give you specific [...] 03/24/2005 Document Re-Released: 02/01/2007 ExitCare Patient Information 2009 JobHive. Follow Up Care 05/08/2022 12:26:51 With:Frances PEPE Address: [address] [place], [place] [address]. [address] [place] [address] Business (1) When:1 to 2 weeks Comments:Call for any problems. [facility]09-[facility] Evaluation + Plan noteExtracted from: Title:Anesthesia Pre-Op endo Author:Nirav Steve MD Date:05/23/22 Plan [place] Society of Anesthesiologists (ASA) physical status classification: [...] Date:06/12/2022 02:00:00 PM Scheduled Provider:Frances PEPE MD Location:[facility] Digestive [facility] Follow Up Future Scheduled Tests Laboratory* [...] XR Spine Lumbosacral Minimum 4 Views 03/20/22 [facility]09-[facility]-20[facility] History of Present illness Narrative* Forest Koenig - 05/15/2022 10:43 AM EDT Encounter closed per email 05/15/22 documented in this encounterSelect Medical Ohiohealth [facility] Hospital09-21-2022 Instructions* Patient Instructions* Yudy Parisi, JOSE - 05/14/2022 4:41 PM EDT Plate method [...] foods Personal: Home-made breakfast sandwich with egg, mozambican muffin, cheese OR cereal with milk 1% chocolate milk Zone [facility]'s Bar [facility] Protein Bar KIND Breakfast protein bar Restaurant/fast food 1x per week Reduced Sodium Lunchmeat - Perry or ham or PB&J Premier Protein - Chocolate Shake or Muscle Milk No salt added cans or reduced sodium cans and rinse them and drain them documented in this encounterSelect Medical [facility]09-21-2022 History of Present illness Narrative* Yudy [...] foods Personal: Home-made breakfast sandwich with egg, mozambican muffin, cheese OR cereal with milk 1% chocolate milk Zone Perfect Madhu's Bar [facility] Protein Bar KIND Breakfast protein bar Restaurant/fast food 1x per week Reduced Sodium Lunchmeat - Perry or ham or PB&J Premier Protein - [...] Physical limitations affecting learning: None Referred/Supervised by: Mariella/Andre BHARDWAJ Billing Type: Initial Assess/15 min 3 units SIGNATURE: Yudy Parisi RD PATIENT NAME: Kathy Haynes DATE: May 14, 2022 TIME: 3:34 PM PAGER: N/A documented in this encounterSelect Medical [facility]09-21-2022 History of Present illness Narrative* Hortensia Angeles RN - 05/14/2022 12:48 PM EDT AMBULATORY PATIENT EDUCATION NOTE Met with patient/family to discuss the following information: [x] SRTR information provided and questions answered. Informed patient to call move coordinator with any questions [x] Patient was provided the UNOS brochure on multiple listing and waiting time transfer [x]Evaluation process including presentation to selection committee, OSOTC approval and listing criteria reviewed [x]Surgical procedure, including post-operative management, hospitalization, lifelong immunosuppressive medications and their side effects (including the risk for hypertension, diabetes, kidney problems and cancers) and half-way follow up after transplant. Possibility of recurrent disease discussed with patient. [x]Patient is aware of the potential medical, surgical or psychosocial risks [x] Patient is aware that they will need a day care teacher to be available for the first 8-12 [...] protected health information would be released to OSOTC and UNOS in order linda placed on the UNOS [...] to listing. [x] Patient told that the [facility] is a teaching facility and part of care, under the guidance of my physicians, may be conducted by Residents, [place] and students. [x]Patient advised that transplants not [...] In Department: TRANSPLANT CENTER documented in this encounterSelect Medical Ohiohealth [facility]09-21-2022 History of Present illness Narrative* Stan Phan MD - 05/14/2022 9:00 AM EDT INITIAL CONSULT ANESTHESIA LIVER TRANSPLANT SERVICE DATE: 05/14/2022 SERVICE TIME: 844 Consulting Service: Transplant Surgery (Dr. Decker) Opinion/Advice Regarding: Anesthetic evaluation and preparation prior [...] positive home test, mild symptoms Current smoker 04/29/202210/25 PPD Hypertension Jaundice Low back pain PAST [...] FEF75 (L/sec) 1.90 0.92 3.69 1.30 68 FUI02-33 (L/sec) 4.83 2.80 7.40 3.85 79 PEF L/s (L/sec) 11.94 9.10 14.79 11.47 96 FIVC (L) 6.44 FIF50 (L/sec) 6.91 PIF (L/sec) 6.99 Time (sec) 12.60 NEEMA (L) 0.12 FET PEF (sec) 0.07 Outside Hospital Records: To be scanned into [facility] Laboratory and Testing: Lab Value Units [...] 14, 2022 TIME: 7:09 AM PAGER/CONTACT #: [phone] documented in this encounterSelect Medical Ohiohealth [facility]09-21-2022 History of Present illness Narrative* Javi [...] chest CT performed will be reported separately. Skiver Hand (topogram) images: No additional findings. Duplex Liver: [...] uses marijuana for appetite stimulation. 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 Patients states his [...] hepatic artery thrombosis, and . Short and terminologist outcomes data was discussed. I reviewed an [...] protocol. All of their questions were answered. [id number]: STUDY TITLE: A Multicenter, Prospective, Open-label, Randomized Controlled Clinical Trial to Compare the Safety and Effectiveness of the VitaSmartTM Liver Machine Perfusion System with Static Cold Storage for Organ Preservation Prior to Liver Transplantation (Bridge to HOPE) (Bridge to Life) IRB No: [id number] COMMERCIAL REAL ESTATE ASSISTANT: Javi Nguyễn MD, PhD Pager: COORDINATOR/Research Coordinator/Services Rep: Christine MS Racquel PI discussed the above mentioned research protocol [...] given to the patient, along with the Machine Oiler's contact information. PLAN: - Continue transplant evaluation. - Smoking cessation. Teresa Israel APRN.[facility] May 14, 2022 8:53 AM *Patient seen [...] 05/24/2022 Time: 1:55 AM documented in this encounterSelect Medical Ohiohealth [facility]09-20-2022 History of Present illness Narrative* Elise [...] 13, 2022 1:03 PM documented in this encounterSelect Medical [facility]09-19-2022 History of Present illness Narrative* Treva [...] 42 year old male who presents to [facility] pre transplant evaluation clinic for OLT [...] INR 1.53 and was referred to a satellite dish technician. He was seen by Dr. Pepe in [...] day for 10-12 years. 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 He lives with his girlfriend. Social support [...] stomach surgery as an (3 weeks old) Social History Social History [...] and plan will be discussed with Dr. 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, his girlfriend is supportive along with mother [...] has used topical steroids, never seen a roller staker Labs: INR 1.4, hgb 12.5, plat 123 [...] will improve with abstinence Adviced to see roller staker locally Reggie Hart MD documented in this encounterSelect Medical [facility]09-16-2022 History of Present illness Narrative* Gonzalo Woods RN - 05/09/2022 9:58 AM EDT The following information has been provided/discussed with the patient/family during Shared MedicalAppointment education class: Informed Consent for Organ Transplant Program Participation version June 24, 2021. SRTR information provided and questions answered. Informed patient to call move coordinator with any questions. UNOS information regarding multiple listings for organ transplantation A copy of [place] [facility]plant Consortium (OSOTC) criteria. The information was reviewed with patient and all questions answered. Evaluation process including presentation to selection committee, OSOTC approval and listing criteria Surgical procedure, including post-operative management, hospitalization, immunosuppressive medications and their side effects (including the risk for hypertension, diabetes, kidney problems and cancers) and half-way follow up after transplant. Possibility of recurrent [...] was also addressed Patient was provided with [facility] information sheet regarding transplantation of HepatitisC [...] B. INFORMED CONSENT Kathy Haynes Medical Record: [id number] Informed consent for Organ Transplant Program Participation [...] RN May 09, 2022 documented in this encounterSelect Medical [facility]09-14-2022 Miscellaneous Notes* Telephone Encounter - Wili Rojas - 05/07/2022 9:54 AM EDT Unable to leave patient vm at this time . documented in this encounterSelect Medical Ohio[facility]09-07-2022 Hospital Discharge instructions Patient Education 04/30/2022 [...] transplant. Follow these instructions at home: Take invy-xsq-irqxjfz and prescription medicines only as told by [...] 10/30/2004 Document Revised: 07/23/2018 Document Reviewed: 05/12/2018 Quickflix Patient Education 2020 CallApp. 04/30/2022 14:48:16 Upper Endoscopy, Adult, Care After [...] what activities are safe for you. Take dyoc-trn-kzukvft and prescription medicines only as told by [...] 02/08/2013 Document Revised: 02/01/2019 Document Reviewed: 01/10/2019 Quickflix Patient Education 2020 CallApp. [facility]09-07-[facility] Evaluation + Plan noteExtracted from: Title:Post-anesthesia - General Author:Maninder Harrington DO Date:04/30/22 Plan Transfer/ Discharge: Condition stable. Extracted from: Title:Pre-anesthesia - Endoscopy Author:Maninder Bañuelos Jr., DO Date:04/30/22 Plan [place] Society of Anesthesiologists (ASA) physical status classification: Class III. Anesthetic Preoperative Plan Anesthesia: General. . Anesthetic plan, risks, benefits, and alternatives discussed with the patient and/or family. Patient verbalized understanding. Future Appointments Appointment Date:05/08/2022 10:20:00 AM Scheduled Provider: Location:[facility] [place] Appointment Type: Nurse Visit Appointment Date:05/08/2022 12:00:00 PM Scheduled Provider:Frances PEPE MD Location:[facility] Digestive Health [facility] Follow Up Future Scheduled Tests Laboratory* Urinalysis 03/20/22 * CBC w/ Auto Diff 03/20/22 * Comprehensive Metabolic Panel 03/20/22 * C-Reactive Protein 03/20/22 * PT 03/20/22 Radiology* XR Abdomen 1 View 03/20/22 * XR Spine Lumbosacral Minimum 4 Views 03/20/22 [facility]09-07-2022 Miscellaneous Notes* Telephone Encounter - Gracie Loving RN - 04/30/2022 11:40 AM EDT See full intake note from 04/29/22. Spoke with pt's significant other. They would like to schedule transplant evaluation the week of 05/12/22. Advised that education class will be 05/09/22. Pt is now active on [employer]. Explained how to do virtual visits. Will submit orders for scheduling. Gracie Loving RN [facility] Miscellaneous Notes* Telephone Encounter - Gracie Loving RN - 04/29/2022 9:51 PM EDT [facility] Referral for Liver Transplant This is a [...] advised that it is a requirement at [facility] to be fully vaccinated to be [...] surgery as an infant (3 weeks old) Last Weight: 210 Lbs [...] Epic Gracie Loving RN documented in this encounter[facility] Miscellaneous Notes* Telephone Encounter - Angela Lozanopatricia - 04/18/2022 9:27 AM EDT LIVER TRANSPLANT REFERRAL Kathy Haynes [id number] Diagnosis: Cirrhosis-ETOH, Last Atncw-19-99-2022 Date of diagnosis: 04-07-2022 MELD Na: 25 Referring MD: Dr. Frances Nicole MD: Dr. Frances Pepe COVID-19: Are you vaccinated for COVID19? No-patient is willing to get vaccine in order to get list. MyCHART Is the patient signed up for MyChart? No If YES - send patient the OLT New Referral Message If NO - obtain their email address AND send mychart sign up information: email address: [email or web address] How long does it take you to drive to [facility]? 2 hours Who will accompany you to your transplant evaluation? Patient's fiance, mom Have you ever been evaluated for liver transplant? No If yes, where? N/A Status: N/A Outside Records Needed: Yes Where are outside records being requested from: [facility] Requested? Yes Full or Partial Evaluation? partial Do you have a potential living donor? No A nurse will call for medical intake, -who should she call? Patient -what phone number? [phone] Advise patient that the call may come from a restricted phone number for intake. Additional Comments: Patient DOES NOT have any insurance and is currently working on getting insurance (Medicaid) Angela Boss documented in this encounter[facility] Hospital Discharge instructions Follow Up Care 03/21/2022 10:56:46 With:TONY EUGENE, ISREAL Daniels, REGENCY MERIDIAN Address: [facility] [address] [place] [place] [address]- When:2 weeks [facility] [id number] Evaluation + Plan note Future Scheduled Tests Laboratory* Sedimentation Rate Automated 03/20/22 * Urinalysis 03/20/22 * CBC w/ Auto Diff 03/20/22 * Comprehensive Metabolic Panel 03/20/22 * C-Reactive Protein 03/20/22 * PT 03/20/22 Radiology* XR Abdomen 1 View 03/20/22 * XR Spine Lumbosacral Minimum 4 Views 03/20/22 [facility] [place] Evaluation + Plan note Future Appointments Appointment Date:04/11/2022 08:00:00 AM Scheduled Provider: Location:FT.[facility] Appointment Type:US Abdominal/Pelvis (FT) Appointment Date:04/17/2022 01:00:00 PM Scheduled Provider:Frances PEPE MD Location:[facility] Appointment Type:[facility] Follow Up Appointment Date:04/17/2022 03:30:00 PM Scheduled Provider:Jass Caruso DO Location:[facility] Occupational Health Appointment Type:IH Injury Follow up [facility] (FT) Future Scheduled Tests Laboratory* Sedimentation Rate Automated 03/20/22 * Urinalysis 03/20/22 * CBC w/ Auto Diff 03/20/22 * Comprehensive Metabolic Panel 03/20/22 * C-Reactive Protein 03/20/22 * PT 03/20/22 Radiology* XR Abdomen 1 View 03/20/22 * US Liver 04/11/22 * XR Spine Lumbosacral Minimum 4 Views 03/20/22 [facility] Evaluation + Plan note Future Appointments Appointment Date:04/11/2022 08:00:00 AM Scheduled Provider: [facility] Type:US Abdominal/Pelvis () Appointment Date:04/17/2022 01:00:00 PM Scheduled Provider:Frances PEPE MD Location:[facility] Appointment Type:[facility] Follow Up Appointment Date:04/17/2022 03:30:00 PM Scheduled Provider:Jass Caruso DO Location:[facility] Occupational Health Appointment Type:IH Injury Follow up [facility] () Diagnostic Tests Pending * HCV Antibody RFX [...] XR Spine Lumbosacral Minimum 4 Views 03/20/22 [facility] Future Appointments Appointment Date:04/17/2022 01:00:00 PM Scheduled Provider:Frances PEPE MD Location:[facility] Digestive Health Appointment Type:BADH Follow Up Appointment Date:04/17/2022 03:30:00 PM Scheduled Provider:Jass Caurso DO Location:[facility] Occupational Health Appointment Type:IH Injury Follow up [facility] () Future Scheduled Tests Laboratory* Sedimentation Rate Automated 03/20/22 * Urinalysis 03/20/22 * CBC w/ Auto Diff 03/20/22 * Comprehensive Metabolic Panel 03/20/22 * C-Reactive Protein 03/20/22 * PT 03/20/22 Radiology* XR Abdomen 1 View 03/20/22 * XR Spine Lumbosacral Minimum 4 Views 03/20/22 [facility] Future Appointments Appointment Date:04/24/2022 01:00:00 PM Scheduled Provider:Frances PEPE MD Location:[facility] Appointment Type:BAD Follow Up Future Scheduled Tests Laboratory* Sedimentation Rate Automated 03/20/22 * Urinalysis 03/20/22 * CBC w/ Auto Diff 03/20/22 * Comprehensive Metabolic Panel 03/20/22 * C-Reactive Protein 03/20/22 * PT 03/20/22 Radiology* XR Abdomen 1 View 03/20/22 * XR Spine Lumbosacral Minimum 4 Views 03/20/22 [facility] Future Appointments Appointment Date:04/30/2022 02:45:00 PM Scheduled Provider: Location:[facility] Appointment Type:Surgery FT Appointment Date:05/08/2022 12:00:00 PM Scheduled Provider:Frances PEPE MD Location:[facility] Appointment Type:BADH Follow Up Future Scheduled Tests Laboratory* Urinalysis 03/20/22 * CBC w/ Auto Diff 03/20/22 * Comprehensive Metabolic Panel 03/20/22 * C-Reactive Protein 03/20/22 * PT 03/20/22 Radiology* XR Abdomen 1 View 03/20/22 * XR Spine Lumbosacral Minimum 4 Views 03/20/22 [facility] Future Appointments Appointment Date:07/11/2022 03:15:00 PM Scheduled Provider: Location:[facility] Appointment Type:Surgery PAT COVID Testing Appointment Date:07/18/2022 11:00:00 AM Scheduled Provider: Location:[facility] Appointment Type:Surgery FT Future Scheduled Tests Laboratory* PT & PTT 05/15/22 * PT & PTT 06/06/22 * Urinalysis 03/20/22 * CBC w/ Auto Diff 03/20/22 * Comprehensive Metabolic Panel 03/20/22 * C-Reactive Protein 03/20/22 * Hepatic Function Panel 05/15/22 * Hepatic Function Panel 06/06/22 * PT 03/20/22 Radiology* XR Abdomen 1 View 03/20/22 * XR Spine Lumbosacral Minimum 4 Views 03/20/22 [facility] Evaluation + Plan note Future Appointments Appointment Date:07/11/2022 03:15:00 PM Scheduled Provider: Location:[facility] Appointment Type:Surgery PAT COVID Testing Appointment Date:07/18/2022 11:00:00 AM Scheduled Provider: Location:[facility] Appointment Type:Surgery FT Diagnostic Tests Pending * Urinalysis 06/19/22 Future Scheduled Tests Laboratory* PT & PTT 05/15/22 * PT & PTT 06/06/22 * Basic Metabolic Panel 06/17/22 * CBC w/ Auto Diff 06/17/22 * Hepatic Function Panel 05/15/22 * Hepatic Function Panel 06/06/22 * PT 03/20/22 Radiology* XR Abdomen 1 View 03/20/22 * XR Spine Lumbosacral Minimum 4 Views 03/20/22 [facility] Future Appointments Appointment Date:08/28/2022 02:15:00 PM Scheduled Provider:Frances PEPE MD Location:[facility] Dig[facility]ive Health Appointment Type:[facility] Follow Up Future Scheduled Tests Laboratory* PT & PTT 07/23/22 * Basic Metabolic Panel 06/17/22 * CBC w/ Auto Diff 06/17/22 * Hepatic Function Panel 07/23/22 * PT 03/20/22 Radiology* XR Abdomen 1 View 03/20/22 * XR Spine Lumbosacral Minimum 4 Views 03/20/22 [facility] Future Appointments Appointment Date:08/28/2022 02:15:00 PM Scheduled Provider:Frances PEPE MD Location:[facility] Appointment Type:BAD Follow Up Diagnostic Tests Pending * PT & PTT 07/31/22 * Hepatic Function Panel 07/31/22 Future Scheduled Tests Laboratory* Basic Metabolic Panel 06/17/22 * CBC w/ Auto Diff 06/17/22 * PT 03/20/22 Radiology* XR Abdomen 1 View 03/20/22 * XR Spine Lumbosacral Minimum 4 Views 03/20/22 [facility] Future Appointments Appointment Date:08/28/2022 02:15:00 PM Scheduled Provider:Frances PEPE MD Location:[facility] Appointment Type:BAD Follow Up Future Scheduled Tests Laboratory* Basic Metabolic Panel 06/17/22 * CBC w/ Auto Diff 06/17/22 * PT 03/20/22 Radiology* XR Abdomen 1 View 03/20/22 * XR Spine Lumbosacral Minimum 4 Views 03/20/22 [facility] Future Appointments Appointment Date:11/04/2022 07:30:00 AM Scheduled Provider: [facility] Type:US Abdominal/Pelvis (FT) Appointment Date:11/13/2022 01:30:00 PM Scheduled Provider:Frances PEPE MD Location:[facility] Appointment Type:BAD Follow Up Future Scheduled Tests Laboratory* Basic Metabolic Panel 06/17/22 * CBC w/ Auto Diff 06/17/22 * PT 03/20/22 Radiology* XR Abdomen 1 View 03/20/22 * US Liver 11/04/22 * XR Spine Lumbosacral Minimum 4 Views 03/20/22 [facility] Future Appointments Appointment Date:11/04/2022 07:30:00 AM Scheduled Provider: Location:.[facility] Appointment Type:US Abdominal/Pelvis (FT) Appointment Date:11/13/2022 01:30:00 PM Scheduled Provider:Frances PEPE MD Location:[facility] Appointment Type:BAD Follow Up Future Scheduled Tests Laboratory* Ferritin 10/23/22 * Iron Level 10/23/22 * Vitamin B12 Level 10/23/22 Radiology* XR Abdomen 1 View 03/20/22 * US Liver 11/04/22 * XR Spine Lumbosacral Minimum 4 Views 03/20/22 [facility] Future Appointments Appointment Date:11/04/2022 07:30:00 AM Scheduled Provider: [facility] Appoint[facility] Type:US Abdominal/Pelvis () Appointment Date:11/13/2022 01:30:00 PM Scheduled Provider:Frances PEPE MD Location:[facility] Appointment Type:[facility] Follow Up Diagnostic Tests Pending * Drug Screen Urine 10/28/22 Future Scheduled Tests Laboratory* Ferritin 10/23/22 * Iron Level 10/23/22 * Vitamin B12 Level 10/23/22 Radiology* XR Abdomen 1 View 03/20/22 * US Liver 11/04/22 * XR Spine Lumbosacral Minimum 4 Views 03/20/22 [facility] Future Appointments Appointment Date:11/13/2022 01:30:00 PM Scheduled Provider:Frances PEPE MD Location:[facility] Appointment Type:[facility] Follow Up Future Scheduled Tests Laboratory* Ferritin 10/23/22 * Iron Level 10/23/22 * Vitamin B12 Level 10/23/22 Radiology* XR Abdomen 1 View 03/20/22 * XR Spine Lumbosacral Minimum 4 Views 03/20/22 [facility] Future Appointments Appointment Date:05/28/2023 03:00:00 PM Scheduled Provider:Frances PEPE MD Location:[facility] Appointment Type:[facility] Follow Up Future Scheduled Tests Laboratory* Basic Metabolic Panel 12/15/22 * Ferritin 10/23/22 * Iron Level 10/23/22 * Vitamin B12 Level 10/23/22 * Vitamin B12 Level 11/27/22 Radiology* XR Abdomen 1 View 03/20/22 * XR Spine Lumbosacral Minimum 4 Views 03/20/22 [facility] Future Appointments Appointment Date:05/28/2023 03:00:00 PM Scheduled Provider:Amrik Jeffrey MD Location:[facility] Dig[facility]ive Health Appointment Type:BADH Follow Up Future Scheduled Tests Laboratory* Basic Metabolic Panel 12/15/22 * Ferritin 10/23/22 * Iron Level 10/23/22 * Vitamin B12 Level 10/23/22 * Vitamin B12 Level 11/27/22 [facility] Diagnosis Alcoholic cirrhosis of liver with ascites (HCC)- Primary Alcoholic cirrhosis of liver Liver transplant [facility] Diagnosis Encounter for education about transplantation- Primary documented in this encounter [facility] note* Diagnosis Alcoholic cirrhosis of liver with ascites (HCC)- Primary Alcoholic cirrhosis of liver documented in this encounter [facility] note* Diagnosis Alcoholic cirrhosis of liver with ascites (HCC) Alcoholic cirrhosis of liver Liver transplant candidate [facility] Diagnosis Alcoholic cirrhosis of liver with ascites (HCC)- Primary Alcoholic cirrhosis of liver Liver transplant candidate [facility] Diagnosis Encounter for education- Primary Counseling NOS documented in this encounter [facility] note* Diagnosis NO SHOW- Primary documented in this encounter [facility] note* Diagnosis Alcoholic cirrhosis of liver with ascites (HCC)- Primary Alcoholic cirrhosis of liver Liver transplant candidate Dietary counseling and surveillance Dietary surveillance and counseling Awaiting organ transplant Awaiting organ transplant status documented in this encounter [facility] note* Diagnosis Alcoholic cirrhosis of liver with ascites (HCC)- Primary Alcoholic cirrhosis of liver Liver transplant candidate [facility] Diagnosis Alcoholic cirrhosis, unspecified whether ascites present (HCC) [facility] Diagnosis Alcoholic cirrhosis of liver with ascites (HCC)- Primary Alcoholic cirrhosis of liver Pre-transplant evaluation for liver transplant [Z01.818 (ICD-10-CM)] Liver transplant candidate [facility] Diagnosis Alcoholic cirrhosis of liver with ascites (HCC)- Primary Alcoholic cirrhosis of liver [facility]* Diagnosis Alcoholic cirrhosis, unspecified whether ascites present (HCC) [facility] Diagnosis Alcoholic cirrhosis of liver with ascites (HCC)- Primary Alcoholic cirrhosis of liver [facility] Diagnosis Alcoholic cirrhosis of liver with ascites (HCC)- Primary Alcoholic cirrhosis of liver [facility] Diagnosis Alcoholic cirrhosis of liver with ascites (HCC) Alcoholic cirrhosis of liver [facility] Diagnosis Abnormal results of liver function studies- Primary Nonspecific abnormal results of liver function study Alcoholic cirrhosis of liver with ascites (HCC) Alcoholic cirrhosis of liver [facility] Diagnosis Abnormal results of liver function studies Nonspecific abnormal results of liver function study Alcoholic cirrhosis of liver with ascites (HCC) Alcoholic cirrhosis of liver [facility] Diagnosis Alcoholic cirrhosis of liver with ascites (HCC)- Primary Alcoholic cirrhosis of liver [facility] Diagnosis Alcoholic cirrhosis of liver with ascites (HCC)- Primary Alcoholic cirrhosis of liver [facility] Diagnosis Alcoholic cirrhosis of liver with ascites (HCC)- Primary Alcoholic cirrhosis of liver [facility] Diagnosis ALISON (acute kidney injury) (HCC)- Primary Acute kidney failure, unspecified [facility] Diagnosis Alcoholic cirrhosis of liver with ascites (HCC) Alcoholic cirrhosis of liver [facility] Diagnosis Liver replaced by transplant (HCC)- Primary Liver replaced by transplant [facility] Diagnosis Liver replaced by transplant (HCC)- Primary Liver replaced by transplant [facility] Diagnosis Encounter for aftercare following liver transplant (HCC)- Primary Aftercare following organ transplant Liver replaced by transplant (HCC) Liver replaced by transplant Need for prophylactic immunotherapy Encounter for monitoring tacrolimus therapy Encounter for therapeutic drug monitoring Encounter for medication review and counseling Other specified counseling Hyponatremia Hyposmolality and/or hyponatremia [facility] Diagnosis Postoperative pain Other acute postoperative pain Liver transplant recipient (HCC) [facility] Diagnosis Liver replaced by transplant (HCC)- Primary Liver replaced by transplant Immunosuppressed status (HCC) Unspecified disorder of immune mechanism [facility]* Diagnosis Cardiomyopathy, nonischemic (HCC)- Primary Other primary cardiomyopathies Liver transplant recipient (HCC) Chronic systolic heart failure (HCC) Chronic systolic heart failure [facility] N[facility] No data available for this section [facility] Hospital Discharge instructions No data available for this section [facility] Progress note No data available for this section [facility] Reason for referral (narrative)* Diagnostic Procedure Only (Routine) - Closed Specialty Diagnoses / Procedures Referred By Wendy small Referred To Contact CT IMAGING Diagnoses Alcoholic cirrhosis of liver with ascites (HCC) Liver transplant candidate Procedures CT LIVER W IVCON CT ABDOMEN W/CONTRAST Treva Loera MD [address] [place] [id number] Imaging Referral ID Status Reason Start Date Expiration Date V isits Requested Visits Authorized [id number] Closed Auto-Generate d Referral 04/30/2022 08/23/2022 1 1 [facility] for referral (narrative)* Diagnostic Procedure Only (Routine) - Pending Review Specialty Diagnoses / Procedures Referred By Wendy small Referred To Contact US IMAGING Diagnoses Alcoholic cirrhosis of liver with ascites (HCC) Procedures US DOPPLER COMPLETE DUP-SCAN ARTL PRUDENCE ABDL/PEL/SCROT&/RPR ORGN COM Treva Loera MD [address] [place] [address] Us Imaging Referral ID Status Reason Start Date Expiration Date Visits Requested Visits Authorized [id number] Pending Review Auto-Generat ed Referral 10/29/2022 11/08/2023 1 1 * Diagnostic Procedure Only (Routine) - Pending Review Specialty Diagnoses / Procedures Referred By Wendy small Referred To Contact US IMAGING Diagnoses Alcoholic cirrhosis of liver with ascites (HCC) Procedures US ABD LIVER VASCULAR US ABDOMINAL REAL TIME W/IMAGE LIMITED DUP-SCAN ARTL PRUDENCE ABDL/PEL/SCROT&/RPR ORGN COM Treva Loera MD [address] [place] [address] Us Imaging Referral ID Status Reason Start Date Expiration Date Visits Requested Visits Authorized [id number] Pending Review Auto-Generat ed Referral 10/29/2022 11/08/2023 1 1 [facility] for referral (narrative)* Diagnostic Procedure Only (Routine) - Closed Specialty Diagnoses / Procedures Referred By Contac t Referred To Contact US IMAGING Diagnoses Alcoholic cirrhosis of liver with ascites (HCC) Procedures US DOPPLER COMPLETE DUP-SCAN ARTL PRUDENCE ABDL/PEL/SCROT&/RPR ORGN COM Treva Loera MD [address] [place] [address] Us Imaging Referral ID Status Reason Start Date Expiration Date V isits Requested Visits Authorized [id number] Closed Auto-Generated Referral Patient Cleared - INN Insurance Found 10/29/2022 11/08/2023 1 1 * Diagnostic Procedure Only (Routine) - Closed Specialty Diagnoses / Procedures Referred By Wendy t Referred To Contact US IMAGING Diagnoses Alcoholic cirrhosis of liver with ascites (HCC) Procedures US ABD LIVER VASCULAR US ABDOMINAL REAL TIME W/IMAGE LIMITED DUP-SCAN ARTL PRUDENCE ABDL/PEL/SCROT&/RPR ORGN COM Treva Loera MD [address] [place] [address] Us Imaging Referral ID Status Reason Start Date Expiration Date V isits Requested Visits Authorized [id number] Closed Auto-Generated Referral Patient Cleared - INN Insurance Found 10/29/2022 11/08/2023 1 1 [facility] for referral (narrative)* Outpatient Procedure (Routine) - Pending Review Specialty Diagnoses / Procedures Referred By Wendy t [facility] Diagnoses Alcoholic cirrhosis of liver with ascites (HCC) Procedures ECHO ECHO TTHRC R-T 2D W/WOM-MODE COMPL SPEC&COLR D Treva Loera MD [address] [place] [address] [facility] [address] [place] [address] Referral ID Status Reason Start Date Expiration Date Visits Requested Visits Authorized [id number] Pending Review Auto-Generat ed Referral 05/04/2023 03/31/2024 1 1 [facility] Summary Purpose Family History No Family [...] Documents on File Type Date Recorded Patient Rag Boiler Expl anation Advance Directive(s) 04/02/2023 6:07 PM [...] AUTHORIZATION Treva Loera MD [address] [address] [facility] [address] [place] [address] Referral ID Status Reason Start Date Expiration Date Visits Requested Visits Authorized [id number] Pending Review PCP Requested Referral 03/26/2023 03/25/2024 99 99 Specialty Diagnoses / Procedures Referred By Contac t Referred To Contact CT IMAGING Diagnoses Abnormal results of liver function studies Alcoholic cirrhosis of liver with ascites (HCC) Procedures CT LIVER W IVCON CT ABDOMEN W/CONTRAST Treva Loera MD [address] [place] [id number] Imaging Referral ID Status Reason Start Date Expiration Date Visits Requested Visits Authorized [id number] Pending Review Auto-Generat ed Referral 01/10/2023 01/10/2024 1 1 Specialty Diagnoses / Procedures Referred By Contac t Referred To Contact Diagnoses Alcoholic cirrhosis of liver with ascites (HCC) Liver transplant candidate Procedures CONSULT TO HE[facility]OLOGY OFFICE[facility] 60-74 MINUTES Treva Loera MD [address] [address] Referral ID Status Reason Start Date Expiration Date Visits Requested Visits Authorized [id number] Pending Review PCP Requested Referral 05/12/2022 04/30/2023 1 1 Specialty Diagnoses / Procedures Referred By Contac t Referred To Contact [facility] Diagnoses Alcoholic cirrhosis of liver with ascites (HCC) Liver transplant candidate Procedures SPIROMETRY BASELINE ONLY SPMTRY W/VC EXPIRATORY PRUDENCE W/WO MXML VOL VNTJ Treva Loera MD [address] [address] Res[facility] Shepherd Formerly named [facility] [place] [address] Referral ID Status Reason Start Date Expiration Date Visits Requested Visits Authorized [id number] Pending Review Auto-Generat ed Referral 05/12/2022 05/30/2023 1 1 Specialty Diagnoses / Procedures Referred By Contac t Referred To Contact [facility] Diagnoses Alcoholic cirrhosis of liver with ascites (HCC) Liver transplant candidate Procedures ECG COMPLETE ECG ROUTINE ECG W/LEAST 12 LDS W/I&R Treva Loera MD [address] [place] [address] [facility] [address] [place] [address] Referral ID Status Reason Start Date Expiration Date Visits Requested Visits Authorized [id number] Pending Review Auto-Generat ed Referral 05/12/2022 04/30/2023 1 1 Specialty Diagnoses / Procedures Referred By Contac t Referred To Contact [facility] [place] Diagnoses Alcoholic cirrhosis of liver with ascites (HCC) Liver transplant candidate Procedures ECHO ECHO TTHRC R-T 2D W/WOM-MODE COMPL SPEC&COLR D Treva Loera MD [address] [place] [address] [facility] [address] [place] [address] Referral ID Status Reason Start Date Expiration Date Visits Requested Visits Authorized [id number] Pending Review Auto-Generat ed Referral 05/12/2022 04/30/2023 1 1 Specialty Diagnoses / Procedures Referred By Contac t Referred To Contact CT IMAGING Diagnoses Alcoholic cirrhosis of liver with ascites (HCC) Liver transplant candidate Procedures CT LIVER W IVCON CT ABDOMEN W/CONTRAST Treva Loera MD [address] [place] [address] Ct Imaging Referral ID Status Reason Start Date Expiration Date Visits Requested Visits Authorized [id number] Pending Review Auto-Generat ed Referral 05/12/2022 05/30/2023 1 1 Specialty Diagnoses / Procedures Referred By Contac t Referred To Contact CT IMAGING Diagnoses Alcoholic cirrhosis of liver with ascites (HCC) Liver transplant candidate Procedures CT CHEST WO IVCON DIAGNOSTIC COMPUTED TOMOGRAPHY THORAX W/O CNTRST Treva Loera MD [address] [place] [address] Ct Imaging Referral ID Status Reason Start Date Expiration Date Visits Requested Visits Authorized [id number] Pending Review Auto-Generat ed Referral 05/12/2022 05/30/2023 1 1 Specialty Diagnoses / Procedures Referred By Contac t Referred To Contact Nutrition Diagnoses Alcoholic cirrhosis of liver with ascites (HCC) Liver transplant candidate Procedures CONSULT TO NUTRITION THERAPY OFFICE/OUTPATIENT [facility] 60-74 MINUTES Treva Loera MD [address] [place] [address] Referral ID Status Reason Start Date Expiration Date Visits Requested Visits Authorized [id number] Pending Review PCP Requested Referral 05/12/2022 04/30/2023 1 1 Specialty Diagnoses / Procedures Referred By Contac t Referred To Contact Infectious Diseases Diagnoses Alcoholic cirrhosis of liver with ascites (HCC) Liver transplant candidate Procedures CONSULT TO INFECTIOUS DISEASES OFFICE/[facility] 60-74 MINUTES Treva Loera MD [address] [place] [id number] Referral ID Status Reason Start Date Expiration Date Visits Requested Visits Authorized [id number] Pending Review PCP Requested Referral 05/12/2022 04/30/2023 1 1 Specialty Diagnoses / Procedures Referred By Contac t Referred To Contact Anesthesiology Diagnoses Alcoholic cirrhosis of liver with ascites (HCC) Liver transplant candidate Procedures CONSULT TO ANESTHESIOLOGY OFFICE/[facility] 60-74 MINUTES Treva Loera MD [address] [address] Referral ID Status Reason Start Date Expiration Date Visits Requested Visits Authorized [id number] Pending Review PCP Requested Referral 05/12/2022 04/30/2023 1 1 Additional Source Comments Care Team (unrecognized sect ion and content) Nurse Practitioner Home Assessments Relationship Specialty Start Date End Date Kaushal Stewart V [address] [place] [address] PCP - General Internal Medicine 8/10/23 Teena Gonzalez CNP [address] [place] [address] Family Medicine 04/02/23 Nurse Practitioner Home Assessments Relationship Specialty Start Date End Date Kaushal Stewart V [address] [place], [place] [phone] PCP - General Internal Medicine 04/02/23 Teena Gonzalez CNP [address] [place] [address] Family Medicine 04/02/23 Nurse Practitioner Home Assessments Relationship Specialty Start Date End Date Kaushal Stewart V [address] [place] [address] PCP - General Internal Medicine 04/02/23 Teena Gonzalez CNP [address] [place] [address] Family Medicine 04/02/23 Christine To, RN [facility] [address] [place] [address] Registered Nurse Transplant Center 04/07/23 Nurse Practitioner Home Assessments Relationship Specialty Start Date End Date Kaushal Stewart V [address] [place] [address] PCP - General Internal Medicine 04/02/23 Teena Gonzalez CNP [address] [place] [address] Family [facility] 04/02/23 Christine To RN [facility] [address] [place] [address] Registered Nurse Transplant Center 04/07/23 Nurse Practitioner Home Assessments Relationship Specialty Start Date End Date Kaushal Stewart V [address] [place] [address] PCP - General Internal Medicine 04/02/23 Teena Gonzalez CNP [address] [place] [address] Family Medicine 04/02/23 Christine To RN [facility] [address] [place] [address] Registered Nurse Transplant Center 04/07/23 Nurse Practitioner Home Assessments Relationship Specialty Start Date End Date Kaushal Stewart Ramses [address] [place], [place] [phone] PCP - General Internal Medicine 04/02/23 Teena Gonzalez CNP [address] [place] [address] Family Medicine 04/02/23 Christine To RN [facility] [address] [place] [address] Registered Nurse Transplant Center 04/07/23 Nurse Practitioner Home Assessments Relationship Specialty Start Date End Date Kaushal StewartRamses [address] [place] [address] PCP - General Internal Medicine 04/02/23 Teena Gonzalez CNP [address] [place] [address] Family Medicine 04/02/23 Christine To RN [facility] [address] [place] [address] Registered Nurse Transplant Center 04/07/23 Nurse Practitioner Home Assessments Relationship Specialty Start Date End Date Kaushal StewartRamses [address] [place] [address] PCP - General Internal Medicine 04/02/23 Teena Gonzalez CNP [address] [place] [address] Family Medicine 04/02/23 Christine To, RN [facility] [address] [place] [address] Registered Nurse Transplant Center 04/07/23 Nurse Practitioner Home Assessments Relationship Specialty Start Date End Date Kaushal Stewart Ramses [address] [place] [phone] PCP - General Internal Medicine 04/02/23 Teena Gonzalez CNP [address] [place] [address] Family Medicine 04/02/23 Christine oT, RN [address] [address] Registered Nurse Transplant Center 04/07/23 Nurse Practitioner Home Assessments Relationship Specialty Start Date End Date Kaushal Stewart V [address] [place], [place] [phone] PCP - General Internal Medicine 04/02/23 Teena Gonzalez CNP [address] [place] [address] Family Medicine 04/02/23 Christine To, BAO [facility] [address] [place] [address] Registered Nurse Transplant Center 04/07/23 Nurse Practitioner Home Assessments Relationship Specialty Start Date End Date Kaushal Stewart V [address] [place] [address] PCP - General Internal Medicine 04/02/23 Teena Gonzalez CNP [address] [place] [address] Family Medicine 04/02/23 Christine To RN [facility] [address] [place] [address] Registered Nurse Transplant Center 04/07/23 Nurse Practitioner Home Assessments Relationship Specialty Start Date End Date Kaushal Stewart V [address] [place] [address] PCP - General Internal Medicine 04/02/23 Teena Gonzalez, STEPAN [address] [place] [phone] Family Medicine 04/02/23 Christine To RN [address] [address] Registered Nurse Transplant Center 04/07/23 Nurse Practitioner Home Assessments Relationship Specialty Start Date End Date Kaushal Stewart V, MD [address] [facility] [place] [phone] PCP - General Internal Medicine 04/02/23 Teena Gonzalez, STEPAN [address] [place] [phone] Family [facility] 04/02/23 Christine To RN [address] [address] Registered Nurse Transplant Center 04/07/23 Nurse Practitioner Home Assessments Relationship Specialty Start Date End Date Kaushal Stewart V, MD [address] [facility] [place] [address] PCP - General Internal Medicine 04/02/23 Teena Gonzalez, STEPAN [address] [place] [address] Family Medicine 04/02/23 Christine To RN [facility] [address] [place] [address] Registered Nurse Transplant Center 04/07/23 Nurse Practitioner Home Assessments Relationship Specialty Start Date End Date Kaushal Stewart V, MD [address] [place] [address] PCP - General Internal Medicine 04/02/23 Teena Gonzalez CNP [address] [place] [address] Family Medicine 04/02/23 Christine To, RN [facility] [address] [place] [address] Registered Nurse Transplant Center 04/07/23 Nurse Practitioner Home Assessments Relationship Specialty Start Date End Date Kaushal Stewart V, MD [address] [place] [address] PCP - General Internal Medicine 04/02/23 Teena Gonzalez, STEPAN [address] [place] [phone] Family Medicine 04/02/23 Christine To, RN [facility] [address] [place] [address] Registered Nurse Transplant Center 04/07/23 Nurse Practitioner Home Assessments Relationship Specialty Start Date End Date Kaushal Stewart V, MD [address] [place] [address] PCP - General Internal Medicine 04/02/23 Teena Gonzalez, STEPAN [address] [place] [address] Family Medicine 04/02/23 Christine To, RN [facility] [address] [place] [address] Registered Nurse Transplant Center 04/07/23 Nurse Practitioner Home Assessments Relationship Specialty Start Date End Date Kaushal Stewart V, MD [address] [place] [address] PCP - General Internal Medicine 04/02/23 Teena Gonzalez CNP [address] [facility] [place] [address] Family Medicine 04/02/23 Christine To RN [facility] [address] [place] [address] Registered Nurse Transplant Center 04/07/23 (unrecognized sect ion and content) No Status Records FoundNo Status Records FoundNo Status Records Found INFORMATION SOURCE (unrecogn ized section and content) DATE CREATED AUTHOR 03/28/2022 [facility] DATE CREATED AUTHOR AUTHOR'S ORGANIZ ATION 09/29/2023 [facility] DATE CREATED AUTHOR AUTHOR'S ORGANIZ ATION 09/30/2023 [facility] Source Comments (unrecognize d section and content) In the event this informatio n is protected by the Federal Confidentiality of Alcohol and Drug Abuse Patient Records regulations: The Federal rules restrict any use of the information to criminally investigate or prosecute any alcohol or drug abuse patient.[facility] Hospital[facility] the event this information is protected by the Federal Confidentiality of Alcohol and Drug Abuse Patient Records regulations: The Federal rules restrict any use of the information to criminally investigate or prosecute any alcohol or drug abuse patient.[facility] HospitalIn the event this information is protected by the Federal Confidentiality of Alcohol and Drug Abuse Patient Records regulations: The Federal rules restrict any use of the information to criminally investigate or prosecute any alcohol or drug abuse patient.[facility] HospitalIn the event this information is protected by the Federal Confidentiality of Alcohol and Drug Abuse Patient Records regulations: The Federal rules restrict any use of the information to criminally investigate or prosecute any alcohol or drug abuse patient.[facility] HospitalIn the event this information is protected by the Federal Confidentiality of Alcohol and Drug Abuse Patient Records regulations: The Federal rules restrict any use of the information to criminally investigate or prosecute any alcohol or drug abuse patient.[facility] HospitalIn the event this information is protected by the Federal Confidentiality of Alcohol and Drug Abuse Patient Records regulations: The Federal rules restrict any use of the information to criminally investigate or prosecute any alcohol or drug abuse patient.[facility] HospitalIn the event this information is protected by the Federal Confidentiality of Alcohol and Drug Abuse Patient Records regulations: The Federal rules restrict any use of the information to criminally investigate or prosecute any alcohol or drug abuse patient.[facility] HospitalIn the event this information is protected by the Federal Confidentiality of Alcohol and Drug Abuse Patient Records regulations: The Federal rules restrict any use of the information to criminally investigate or prosecute any alcohol or drug abuse patient.[facility] HospitalIn the event this information is protected by the Federal Confidentiality of Alcohol and Drug Abuse Patient Records regulations: The Federal rules restrict any use of the information to criminally investigate or prosecute any alcohol or drug abuse patient.[facility] HospitalIn the event this information is protected by the Federal Confidentiality of Alcohol and Drug Abuse Patient Records regulations: The Federal rules restrict any use of the information to criminally investigate or prosecute any alcohol or drug abuse patient.[facility] HospitalIn the event this information is protected by the Federal Confidentiality of Alcohol and Drug Abuse Patient Records regulations: The Federal rules restrict any use of the information to criminally investigate or prosecute any alcohol or drug abuse patient.[facility] HospitalIn the event this information is protected by the Federal Confidentiality of Alcohol and Drug Abuse Patient Records regulations: The Federal rules restrict any use of the information to criminally investigate or prosecute any alcohol or drug abuse patient.[facility] HospitalIn the event this information is protected by the Federal Confidentiality of Alcohol and Drug Abuse Patient Records regulations: The Federal rules restrict any use of the information to criminally investigate or prosecute any alcohol or drug abuse patient.[facility] HospitalIn the event this information is protected by the Federal Confidentiality of Alcohol and Drug Abuse Patient Records regulations: The Federal rules restrict any use of the information to criminally investigate or prosecute any alcohol or drug abuse patient.[facility] HospitalIn the event this information is protected by the Federal Confidentiality of Alcohol and Drug Abuse Patient Records regulations: The Federal rules restrict any use of the information to criminally investigate or prosecute any alcohol or drug abuse patient.[facility] HospitalIn the event this information is protected by the Federal Confidentiality of Alcohol and Drug Abuse Patient Records regulations: The Federal rules restrict any use of the information to criminally investigate or prosecute any alcohol or drug abuse patient.[facility] HospitalIn the event this information is protected by the Federal Confidentiality of Alcohol and Drug Abuse Patient Records regulations: The Federal rules restrict any use of the information to criminally investigate or prosecute any alcohol or drug abuse patient.[facility] HospitalIn the event this information is protected by the Federal Confidentiality of Alcohol and Drug Abuse Patient Records regulations: The Federal rules restrict any use of the information to criminally investigate or prosecute any alcohol or drug abuse patient.[facility] HospitalIn the event this information is protected by the Federal Confidentiality of Alcohol and Drug Abuse Patient Records regulations: The Federal rules restrict any use of the information to criminally investigate or prosecute any alcohol or drug abuse patient.[facility] HospitalIn the event this information is protected by the Federal Confidentiality of Alcohol and Drug Abuse Patient Records regulations: The Federal rules restrict any use of the information to criminally investigate or prosecute any alcohol or drug abuse patient.[facility] HospitalIn the event this information is protected by the Federal Confidentiality of Alcohol and Drug Abuse Patient Records regulations: The Federal rules restrict any use of the information to criminally investigate or prosecute any alcohol or drug abuse patient.[facility] HospitalIn the event this information is protected by the Federal Confidentiality of Alcohol and Drug Abuse Patient Records regulations: The Federal rules restrict any use of the information to criminally investigate or prosecute any alcohol or drug abuse patient.[facility] HospitalIn the event this information is protected by the Federal Confidentiality of Alcohol and Drug Abuse Patient Records regulations: The Federal rules restrict any use of the information to criminally investigate or prosecute any alcohol or drug abuse patient.[facility] HospitalIn the event this information is protected by the Federal Confidentiality of Alcohol and Drug Abuse Patient Records regulations: The Federal rules restrict any use of the information to criminally investigate or prosecute any alcohol or drug abuse patient.[facility] HospitalIn the event this information is protected by the Federal Confidentiality of Alcohol and Drug Abuse Patient Records regulations: The Federal rules restrict any use of the information to criminally investigate or prosecute any alcohol or drug abuse patient.[facility] HospitalIn the event this information is protected by the Federal Confidentiality of Alcohol and Drug Abuse Patient Records regulations: The Federal rules restrict any use of the information to criminally investigate or prosecute any alcohol or drug abuse patient.[facility] HospitalIn the event this information is protected by the Federal Confidentiality of Alcohol and Drug Abuse Patient Records regulations: The Federal rules restrict any use of the information to criminally investigate or prosecute any alcohol or drug abuse patient.[facility] HospitalIn the event this information is protected by the Federal Confidentiality of Alcohol and Drug Abuse Patient Records regulations: The Federal rules restrict any use of the information to criminally investigate or prosecute any alcohol or drug abuse patient.[facility] HospitalIn the event this information is protected by the Federal Confidentiality of Alcohol and Drug Abuse Patient Records regulations: The Federal rules restrict any use of the information to criminally investigate or prosecute any alcohol or drug abuse patient.[facility] HospitalIn the event this information is protected by the Federal Confidentiality of Alcohol and Drug Abuse Patient Records regulations: The Federal rules restrict any use of the information to criminally investigate or prosecute any alcohol or drug abuse patient.[facility] HospitalIn the event this information is protected by the Federal Confidentiality of Alcohol and Drug Abuse Patient Records regulations: The Federal rules restrict any use of the information to criminally investigate or prosecute any alcohol or drug abuse patient.[facility] HospitalIn the event this information is protected by the Federal Confidentiality of Alcohol and Drug Abuse Patient Records regulations: The Federal rules restrict any use of the information to criminally investigate or prosecute any alcohol or drug abuse patient.[facility] HospitalIn the event this information is protected by the Federal Confidentiality of Alcohol and Drug Abuse Patient Records regulations: The Federal rules restrict any use of the information to criminally investigate or prosecute any alcohol or drug abuse patient.[facility] HospitalIn the event this information is protected by the Federal Confidentiality of Alcohol and Drug Abuse Patient Records regulations: The Federal rules restrict any use of the information to criminally investigate or prosecute any alcohol or drug abuse patient.[facility] HospitalIn the event this information is protected by the Federal Confidentiality of Alcohol and Drug Abuse Patient Records regulations: The Federal rules restrict any use of the information to criminally investigate or prosecute any alcohol or drug abuse patient.[facility] HospitalIn the event this information is protected by the Federal Confidentiality of Alcohol and Drug Abuse Patient Records regulations: The Federal rules restrict any use of the information to criminally investigate or prosecute any alcohol or drug abuse patient.[facility] HospitalIn the event this information is protected by the Federal Confidentiality of Alcohol and Drug Abuse Patient Records regulations: The Federal rules restrict any use of the information to criminally investigate or prosecute any alcohol or drug abuse patient.[facility] HospitalIn the event this information is protected by the Federal Confidentiality of Alcohol and Drug Abuse Patient Records regulations: The Federal rules restrict any use of the information to criminally investigate or prosecute any alcohol or drug abuse patient.[facility] HospitalIn the event this information is protected by the Federal Confidentiality of Alcohol and Drug Abuse Patient Records regulations: The Federal rules restrict any use of the information to criminally investigate or prosecute any alcohol or drug abuse patient.[facility] HospitalIn the event this information is protected by the Federal Confidentiality of Alcohol and Drug Abuse Patient Records regulations: The Federal rules restrict any use of the information to criminally investigate or prosecute any alcohol or drug abuse patient.[facility] HospitalIn the event this information is protected by the Federal Confidentiality of Alcohol and Drug Abuse Patient Records regulations: The Federal rules restrict any use of the information to criminally investigate or prosecute any alcohol or drug abuse patient.[facility] HospitalIn the event this information is protected by the Federal Confidentiality of Alcohol and Drug Abuse Patient Records regulations: The Federal rules restrict any use of the information to criminally investigate or prosecute any alcohol or drug abuse patient.[facility] HospitalIn the event this information is protected by the Federal Confidentiality of Alcohol and Drug Abuse Patient Records regulations: The Federal rules restrict any use of the information to criminally investigate or prosecute any alcohol or drug abuse patient.[facility] HospitalIn the event this information is protected by the Federal Confidentiality of Alcohol and Drug Abuse Patient Records regulations: The Federal rules restrict any use of the information to criminally investigate or prosecute any alcohol or drug abuse patient.[facility] HospitalIn the event this information is protected by the Federal Confidentiality of Alcohol and Drug Abuse Patient Records regulations: The Federal rules restrict any use of the information to criminally investigate or prosecute any alcohol or drug abuse patient.[facility] HospitalIn the event this information is protected by the Federal Confidentiality of Alcohol and Drug Abuse Patient Records regulations: The Federal rules restrict any use of the information to criminally investigate or prosecute any alcohol or drug abuse patient.[facility] HospitalIn the event this information is protected by the Federal Confidentiality of Alcohol and Drug Abuse Patient Records regulations: The Federal rules restrict any use of the information to criminally investigate or prosecute any alcohol or drug abuse patient.[facility] HospitalIn the event this information is protected by the Federal Confidentiality of Alcohol and Drug Abuse Patient Records regulations: The Federal rules restrict any use of the information to criminally investigate or prosecute any alcohol or drug abuse patient.[facility] HospitalIn the event this information is protected by the Federal Confidentiality of Alcohol and Drug Abuse Patient Records regulations: The Federal rules restrict any use of the information to criminally investigate or prosecute any alcohol or drug abuse patient.[facility] the event this information is protected by the Federal Confidentiality of Alcohol and Drug Abuse Patient Records regulations: The Federal rules restrict any use of the information to criminally investigate or prosecute any alcohol or drug abuse patient.[facility] HospitalIn the event this information is protected by the Federal Confidentiality of Alcohol and Drug Abuse Patient Records regulations: The Federal rules restrict any use of the information to criminally investigate or prosecute any alcohol or drug abuse patient.[facility] HospitalIn the event this information is protected by the Federal Confidentiality of Alcohol and Drug Abuse Patient Records regulations: The Federal rules restrict any use of the information to criminally investigate or prosecute any alcohol or drug abuse patient.[facility] HospitalIn the event this information is protected by the Federal Confidentiality of Alcohol and Drug Abuse Patient Records regulations: The Federal rules restrict any use of the information to criminally investigate or prosecute any alcohol or drug abuse patient.[facility] HospitalIn the event this information is protected by the Federal Confidentiality of Alcohol and Drug Abuse Patient Records regulations: The Federal rules restrict any use of the information to criminally investigate or prosecute any alcohol or drug abuse patient.[facility] HospitalIn the event this information is protected by the Federal Confidentiality of Alcohol and Drug Abuse Patient Records regulations: The Federal rules restrict any use of the information to criminally investigate or prosecute any alcohol or drug abuse patient.[facility] HospitalIn the event this information is protected by the Federal Confidentiality of Alcohol and Drug Abuse Patient Records regulations: The Federal rules restrict any use of the information to criminally investigate or prosecute any alcohol or drug abuse patient.[facility] HospitalIn the event this information is protected by the Federal Confidentiality of Alcohol and Drug Abuse Patient Records regulations: The Federal rules restrict any use of the information to criminally investigate or prosecute any alcohol or drug abuse patient.[facility] HospitalIn the event this information is protected by the Federal Confidentiality of Alcohol and Drug Abuse Patient Records regulations: The Federal rules restrict any use of the information to criminally investigate or prosecute any alcohol or drug abuse patient.[facility] HospitalIn the event this information is protected by the Federal Confidentiality of Alcohol and Drug Abuse Patient Records regulations: The Federal rules restrict any use of the information to criminally investigate or prosecute any alcohol or drug abuse patient.[facility] HospitalIn the event this information is protected by the Federal Confidentiality of Alcohol and Drug Abuse Patient Records regulations: The Federal rules restrict any use of the information to criminally investigate or prosecute any alcohol or drug abuse patient.[facility] HospitalIn the event this information is protected by the Federal Confidentiality of Alcohol and Drug Abuse Patient Records regulations: The Federal rules restrict any use of the information to criminally investigate or prosecute any alcohol or drug abuse patient.[facility] HospitalIn the event this information is protected by the Federal Confidentiality of Alcohol and Drug Abuse Patient Records regulations: The Federal rules restrict any use of the information to criminally investigate or prosecute any alcohol or drug abuse patient.[facility] HospitalIn the event this information is protected by the Federal Confidentiality of Alcohol and Drug Abuse Patient Records regulations: The Federal rules restrict any use of the information to criminally investigate or prosecute any alcohol or drug abuse patient.[facility] HospitalIn the event this information is protected by the Federal Confidentiality of Alcohol and Drug Abuse Patient Records regulations: The Federal rules restrict any use of the information to criminally investigate or prosecute any alcohol or drug abuse patient.[facility] HospitalIn the event this information is protected by the Federal Confidentiality of Alcohol and Drug Abuse Patient Records regulations: The Federal rules restrict any use of the information to criminally investigate or prosecute any alcohol or drug abuse patient.[facility] HospitalIn the event this information is protected by the Federal Confidentiality of Alcohol and Drug Abuse Patient Records regulations: The Federal rules restrict any use of the information to criminally investigate or prosecute any alcohol or drug abuse patient.[facility] HospitalIn the event this information is protected by the Federal Confidentiality of Alcohol and Drug Abuse Patient Records regulations: The Federal rules restrict any use of the information to criminally investigate or prosecute any alcohol or drug abuse patient.[facility] HospitalIn the event this information is protected by the Federal Confidentiality of Alcohol and Drug Abuse Patient Records regulations: The Federal rules restrict any use of the information to criminally investigate or prosecute any alcohol or drug abuse patient.[facility] HospitalIn the event this information is protected by the Federal Confidentiality of Alcohol and Drug Abuse Patient Records regulations: The Federal rules restrict any use of the information to criminally investigate or prosecute any alcohol or drug abuse patient.[facility] HospitalIn the event this information is protected by the Federal Confidentiality of Alcohol and Drug Abuse Patient Records regulations: The Federal rules restrict any use of the information to criminally investigate or prosecute any alcohol or drug abuse patient.[facility] Reason for Visit (unrecogniz ed section and content) Reason Comments Radiology CT Specialty Diagnoses / Procedures Referred By Wendy t Referred To Contact CT IMAGING Diagnoses Abnormal results of liver function studies Alcoholic cirrhosis of liver with ascites (HCC) Procedures CT LIVER W IVCON CT ABDOMEN W/CONTRAST Treva Loera MD [address] [place] [address] Ct Imaging Referral ID Status Reason Start Date Expiration Date V isits Requested Visits Authorized [id number] Closed Auto-Generate d Referral Patient Cleared INN/SMCP Payor Auth Obtained 01/10/2023 01/10/2024 1 1 Reason Comments New Patient Specialty Diagnoses / Procedures Referred By Wendy t Referred To Contact TRANSPLANT Diagnoses Alcoholic [...] DENSITY STUDY 1/> SITES AXIAL SKEL OFFICE/OUTPATIENT NEW HIGH MDM 60-[address] ABDOMEN W & W/O CONTRAST CT ANGIOGRAPHY CHEST W/CONTRAST/NONCONTRAST MRI ABDOMEN W/O & W/CONTRAST MATERIAL COLLECTION VENOUS BLOOD VENIPUNCTURE Frances Pepe MD [address] [place] [address] [facility] [address] [place] [id number] Referral ID Status Reason Start Date Expiration Date Visits Requested Visits Authorized [id number] Authorized PCP Requested Referral Financial Clearance Required [...] DENSITY STUDY 1/> SITES AXIAL SKEL OFFICE/OUTPATIENT NEW HIGH MDM 60-[address] ABDOMEN W & W/O CONTRAST CT ANGIOGRAPHY CHEST W/CONTRAST/NONCONTRAST MRI ABDOMEN W/O & W/CONTRAST MATERIAL COLLECTION VENOUS BLOOD VENIPUNCTURE Frances Pepe MD [address] [place] [id number] [facility] [address] [place] [address] Reason Comments No Show Specialty Diagnoses / Procedures Referred By Contac t Referred To Contact Infectious Diseases Diagnoses Alcoholic cirrhosis of liver with ascites (HCC) Liver transplant candidate Procedures CONSULT TO INFECTIOUS DISEASES OFFICE/[facility]IENT [facility] 60-74 MINUTES Treva Loera MD [address] [address] [place] [address] Referral ID Status Reason Start Date Expiration Date Visits Requested Visits Authorized [id number] Authorized PCP Requested Referral 04/30/2022 08/23/2022 1 1 Reason Comments Patient Education Assessment Specialty Diagnoses / Procedures Referred By Contac t Referred To Contact Nutrition / NUTR MAIN Diagnoses Alcoholic cirrhosis of liver with ascites (HCC) Liver transplant candidate Procedures CONSULT TO NUTRITION THERAPY OFFICE/[facility]IENT [facility] 60-74 MINUTES Treva Loera MD [address] [place] [address] [facility] [address] [place] [address] Referral ID Status Reason Start Date Expiration Date V isits Requested Visits Authorized [id number] Closed PCP Requested Referral OON/Self Pay Override [...] (HCC) Procedures CONSULT TO [facility] OFFICE/[facility]IENT [facility] 60-74 MINUTES ECG ROUTINE ECG W/LEAST 12 LDS I&R ONLY ECHO TTHRC R-T 2D W/WOM-MODE COMPL SPEC&COLR D COLONOSCOPY W/BIOPSY SINGLE/MULTIPLE US ABDOMINAL REAL TIME W/IMAGE DOCUMENTATION ECHO TTHRC R-T 2D W/WO M-MODE COMPLETE REST&ST CYTP C/V AUTO THIN LYR PREPJ SCR MNL RESCR PHYS SCREENING MAMMOGRAM BILATERAL DXA BONE DENSITY STUDY 1/> SITES AXIAL SKEL OFFICE/OUTPATIENT NEW HIGH MDM 60-[address] ABDOMEN W & W/O CONTRAST CT ANGIOGRAPHY CHEST W/CONTRAST/NONCONTRAST MRI ABDOMEN W/O & W/CONTRAST MATERIAL COLLECTION VENOUS BLOOD VENIPUNCTURE Frances Pepe MD [address] [place] [address] [facility] [address] [place] [id number] Referral ID Status Reason Start Date Expiration Date Visits Requested Visits Authorized [id number] Authorized PCP Requested Referral Financial Clearance Required [...] DENSITY STUDY 1/> SITES AXIAL SKEL OFFICE/OUTPATIENT NEW HIGH MDM 60-[address] ABDOMEN W & W/O CONTRAST CT ANGIOGRAPHY CHEST W/CONTRAST/NONCONTRAST MRI ABDOMEN W/O & W/CONTRAST MATERIAL COLLECTION VENOUS BLOOD VENIPUNCTURE Frances Pepe MD [address] [facility] [address] [place] [address] [facility] [address] [place], [place] [phone] Reason Comments Refill Request [employer] 4 Reason Comments Refill Request Specialty Diagnoses / Procedures Referred By Contac t Referred To Contact TRANSPLANT Diagnoses Alcoholic cirrhosis of liver with ascites (HCC) Procedures REFERRAL FOR TRANSPLANT WAITLIST AUTHORIZATION Treva Loera MD [address] [facility] [address] [place] [phone] [facility] [address] [place] [address] Referral ID Status Reason Start Date Expiration Date Visits Requested Visits Authorized [id number] Authorized PCP Requested Referral 03/26/2023 03/28/2024 99 99 Reason Comments Medication Question lasix Reason Comments Rx Refills Increase fk back to 4mg bid Reason Comments Refill Request Lower tacrolimus Reason Comments Consult Specialty Diagnoses / Procedures Referred By Contact Referred To Contact Cardiology / CARDIOVASCULAR MEDICINE Diagnoses Follow-up exam Hospital D/C 2 week follow up new 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 [employer] provides no warranty or guarantee of the accuracy or completeness of information in this document.
[2023-11-03 08:29] LABS: Basophils Absolute Auto 0.1 10^3/uL (0.0-0.1); Basophils Percent Auto 1.1 % (0.2-2.0); Eosinophils Absolute Auto 0.3 10^3/uL (0.0-0.7); Eosinophils Percent Auto 5.3 % (0.9-7.0); Hematocrit 41.9 % (42.0-54.0); Hemoglobin 14.7 g/dL (14.0-18.0); Immature Granulocytes Abs Auto 0.01 10^3/uL (0.00-0.03); Immature Granulocytes Pct Auto 0.2 % (0.0-0.5); Lymphocytes Absolute Auto 2.1 10^3/uL (1.2-3.8); Lymphocytes Percent Auto 33.3 % (20.5-60.0); Mean Corpuscular HGB Conc 35.1 g/dL (29.9-35.2); Mean Corpuscular Hemoglobin 30.6 pg (25.9-34.0); Mean Corpuscular Volume 87.1 fL (80.0-94.0); Mean Platelet Volume 9.1 fL (9.5-13.5); Monocytes Absolute Auto 0.6 10^3/uL (0.3-0.8); Neutrophils Absolute Auto 3.3 10^3/uL (1.4-6.5); Neutrophils Percent Auto 51.1 % (43.0-75.0); Platelet Count 172 10^3/uL (150-450); Red Blood Count 4.81 10^6/uL (4.70-6.10); Red Cell Distribution Width 12.1 % (11.0-15.0); White Blood Count 6.4 10^3/uL (4.0-11.0)
[2023-11-03 08:35] LABS: BOX Test Sent Out Y
[2023-11-03 08:59] LABS: Alanine Aminotransferase 26 U/L (16-63); Albumin Globulin Ratio 1.1; Albumin Level 3.8 g/dL (3.4-5.0); Alkaline Phosphatase 136 U/L (46-116); Anion Gap 9.6; Aspartate Amino Transferase 17 U/L (15-37); BUN Creatinine Ratio 11.7; Bilirubin Total 0.4 mg/dL (0.2-1.0); Calcium 9.2 mg/dL (8.5-10.1); Carbon Dioxide 32.8 mmol/L (21.0-32.0); Chloride 99 mmol/L (98-107); Chol HDL Ratio 3.9; Cholesterol 171 mg/dL (<=200); Estimated GFR (African America >60 (>=60); Estimated GFR (Non-African Ame 57 (>=60); Gamma Glutamyl Transpeptidase 37 U/L (15-85); Globulin 3.5 g/dL; Glucose 95 mg/dL (74-106); HDL Cholesterol 44 mg/dL (40-60); Magnesium 1.7 mg/dL (1.8-2.4); Phosphorus 3.4 mg/dL (2.6-4.7); Potassium 4.4 mmol/L (3.5-5.1); Sodium 137 mmol/L (136-145); Total Protein 7.3 g/dL (6.4-8.2); Triglycerides 214 mg/dL (<=150); VLDL CHOLESTEROL 42.8 mg/dL
== END 2023-11-03 08:01 | disposition home or self-care (01) ==
LOC: LAB 08:01
DX: K76.9 Liver disease, unspecified (principal); Z48.23 Encounter for aftercare following liver transplant; Z94.4 Liver transplant status; Z41.8 Encounter for other procedures for purposes other than remedying health state; E83.30 Disorder of phosphorus metabolism, unspecified; R73.02 Impaired glucose tolerance (oral)
CPT/HCPCS: 36415; 80053; 80061; 82977; 83735; 84100; 85025

== ENCOUNTER 2023-12-07 08:04 | Outpatient (OUT) | payer OTHER, SELFPAY ==
[2023-12-07 08:35] LABS: BOX Test Sent Out DONE
[2023-12-07 08:44] LABS: Basophils Absolute Auto 0.1 10^3/uL (0.0-0.1); Basophils Percent Auto 1.5 % (0.2-2.0); Eosinophils Absolute Auto 0.3 10^3/uL (0.0-0.7); Eosinophils Percent Auto 5.7 % (0.9-7.0); Hematocrit 42.4 % (42.0-54.0); Hemoglobin 14.1 g/dL (14.0-18.0); Immature Granulocytes Abs Auto 0.01 10^3/uL (0.00-0.03); Immature Granulocytes Pct Auto 0.2 % (0.0-0.5); Lymphocytes Absolute Auto 2.2 10^3/uL (1.2-3.8); Mean Corpuscular HGB Conc 33.3 g/dL (29.9-35.2); Mean Corpuscular Hemoglobin 29.5 pg (25.9-34.0); Mean Corpuscular Volume 88.7 fL (80.0-94.0); Mean Platelet Volume 8.9 fL (9.5-13.5); Monocytes Absolute Auto 0.6 10^3/uL (0.3-0.8); Neutrophils Absolute Auto 1.7 10^3/uL (1.4-6.5); Neutrophils Percent Auto 34.6 % (43.0-75.0); Platelet Count 167 10^3/uL (150-450); Red Blood Count 4.78 10^6/uL (4.70-6.10); Red Cell Distribution Width 12.6 % (11.0-15.0); White Blood Count 4.8 10^3/uL (4.0-11.0)
[2023-12-07 09:33] LABS: Alanine Aminotransferase 28 U/L (16-63); Albumin Globulin Ratio 1.2; Albumin Level 3.9 g/dL (3.4-5.0); Alkaline Phosphatase 146 U/L (46-116); Anion Gap 11.7; Aspartate Amino Transferase 20 U/L (15-37); BUN Creatinine Ratio 10.7; Bilirubin Total 0.6 mg/dL (0.2-1.0); Calcium 9.7 mg/dL (8.5-10.1); Carbon Dioxide 30.9 mmol/L (21.0-32.0); Chloride 102 mmol/L (98-107); Estimated GFR (African America >60 (>=60); Estimated GFR (Non-African Ame >60 (>=60); Gamma Glutamyl Transpeptidase 55 U/L (15-85); Globulin 3.3 g/dL; Glucose 110 mg/dL (74-106); Magnesium 1.8 mg/dL (1.8-2.4); Phosphorus 2.9 mg/dL (2.6-4.7); Potassium 4.6 mmol/L (3.5-5.1); Sodium 140 mmol/L (136-145); Total Protein 7.2 g/dL (6.4-8.2)
== END 2023-12-07 08:05 | disposition home or self-care (01) ==
LOC: LAB 08:05
DX: R73.02 Impaired glucose tolerance (oral) (principal); Z94.4 Liver transplant status; K70.40 Alcoholic hepatic failure without coma; K76.9 Liver disease, unspecified; Z48.23 Encounter for aftercare following liver transplant; Z41.8 Encounter for other procedures for purposes other than remedying health state; E83.30 Disorder of phosphorus metabolism, unspecified
CPT/HCPCS: 36415; 80053; 82977; 83735; 84100; 85025

== ENCOUNTER 2024-02-09 09:49 | Outpatient (OUT) | payer OTHER, SELFPAY ==
[2024-02-09 11:08] LABS: Basophils Absolute Auto 0.1 10^3/uL (0.0-0.1); Eosinophils Absolute Auto 0.3 10^3/uL (0.0-0.7); Eosinophils Percent Auto 3.8 % (0.9-7.0); Hematocrit 41.3 % (42.0-54.0); Hemoglobin 14.5 g/dL (14.0-18.0); Immature Granulocytes Abs Auto 0.01 10^3/uL (0.00-0.03); Immature Granulocytes Pct Auto 0.1 % (0.0-0.5); Lymphocytes Absolute Auto 2.3 10^3/uL (1.2-3.8); Lymphocytes Percent Auto 33.2 % (20.5-60.0); Mean Corpuscular HGB Conc 35.1 g/dL (29.9-35.2); Mean Corpuscular Hemoglobin 30.9 pg (25.9-34.0); Mean Corpuscular Volume 87.9 fL (80.0-94.0); Mean Platelet Volume 9.3 fL (9.5-13.5); Monocytes Absolute Auto 0.5 10^3/uL (0.3-0.8); Monocytes Percent Auto 7.6 % (1.7-12.0); Neutrophils Absolute Auto 3.7 10^3/uL (1.4-6.5); Neutrophils Percent Auto 54.3 % (43.0-75.0); Platelet Count 188 10^3/uL (150-450); Red Cell Distribution Width 12.3 % (11.0-15.0); White Blood Count 6.8 10^3/uL (4.0-11.0)
[2024-02-09 11:30] LABS: Alanine Aminotransferase 34 U/L (16-63); Albumin Globulin Ratio 1.1; Alkaline Phosphatase 147 U/L (46-116); Anion Gap 12.8; Aspartate Amino Transferase 21 U/L (15-37); BUN Creatinine Ratio 13.6; Bilirubin Total 0.9 mg/dL (0.2-1.0); Calcium 9.5 mg/dL (8.5-10.1); Carbon Dioxide 29.3 mmol/L (21.0-32.0); Chloride 100 mmol/L (98-107); Chol HDL Ratio 4.2; Cholesterol 193 mg/dL (<=200); Estimated GFR (African America >60 (>=60); Estimated GFR (Non-African Ame 56 (>=60); Gamma Glutamyl Transpeptidase 56 U/L (15-85); Globulin 3.6 g/dL; Glucose 110 mg/dL (74-106); HDL Cholesterol 46 mg/dL (40-60); Magnesium 1.8 mg/dL (1.8-2.4); Phosphorus 1.9 mg/dL (2.6-4.7); Potassium 4.1 mmol/L (3.5-5.1); Sodium 138 mmol/L (136-145); Total Protein 7.6 g/dL (6.4-8.2); Triglycerides 155 mg/dL (<=150)
== END 2024-02-09 09:50 | disposition home or self-care (01) ==
LOC: LAB 09:52
DX: R73.02 Impaired glucose tolerance (oral) (principal); Z94.4 Liver transplant status; K70.40 Alcoholic hepatic failure without coma; K76.9 Liver disease, unspecified; Z48.23 Encounter for aftercare following liver transplant; Z41.8 Encounter for other procedures for purposes other than remedying health state; E61.2 Magnesium deficiency
CPT/HCPCS: 36415; 80053; 80061; 80197; 80321; 82977; 83735; 84100; 85025; 87497

== ENCOUNTER 2024-04-19 09:04 | Outpatient (OUT) | payer OTHER, SELFPAY ==
[2024-04-19 09:37] LABS: Basophils Absolute Auto 0.1 10^3/uL (0.0-0.1); Basophils Percent Auto 1.1 % (0.2-2.0); Eosinophils Absolute Auto 0.2 10^3/uL (0.0-0.7); Eosinophils Percent Auto 3.1 % (0.9-7.0); Hematocrit 40.5 % (42.0-54.0); Hemoglobin 14.5 g/dL (14.0-18.0); Lymphocytes Absolute Auto 1.7 10^3/uL (1.2-3.8); Lymphocytes Percent Auto 30.1 % (20.5-60.0); Mean Corpuscular HGB Conc 35.8 g/dL (29.9-35.2); Mean Corpuscular Hemoglobin 31.7 pg (25.9-34.0); Mean Corpuscular Volume 88.4 fL (80.0-94.0); Mean Platelet Volume 8.7 fL (9.5-13.5); Monocytes Absolute Auto 0.5 10^3/uL (0.3-0.8); Monocytes Percent Auto 8.6 % (1.7-12.0); Neutrophils Absolute Auto 3.1 10^3/uL (1.4-6.5); Neutrophils Percent Auto 57.1 % (43.0-75.0); Platelet Count 180 10^3/uL (150-450); Red Blood Count 4.58 10^6/uL (4.70-6.10); White Blood Count 5.5 10^3/uL (4.0-11.0)
[2024-04-19 10:32] LABS: Alanine Aminotransferase 24 U/L (16-63); Albumin Globulin Ratio 1.2; Albumin Level 4.2 g/dL (3.4-5.0); Alkaline Phosphatase 141 U/L (46-116); Anion Gap 15.4; Aspartate Amino Transferase 19 U/L (15-37); BUN Creatinine Ratio 13.9; Bilirubin Total 0.9 mg/dL (0.2-1.0); Calcium 9.4 mg/dL (8.5-10.1); Carbon Dioxide 26.3 mmol/L (21.0-32.0); Chloride 99 mmol/L (98-107); Estimated GFR (African America >60 (>=60); Estimated GFR (Non-African Ame 54 (>=60); Globulin 3.4 g/dL; Glucose 107 mg/dL (74-106); Potassium 3.7 mmol/L (3.5-5.1); Sodium 137 mmol/L (136-145); Total Protein 7.6 g/dL (6.4-8.2)
[2024-04-19 11:47] LABS: BOX Test Sent Out Y
== END 2024-04-19 09:05 | disposition home or self-care (01) ==
LOC: LAB 09:06
DX: K76.9 Liver disease, unspecified (principal); Z48.23 Encounter for aftercare following liver transplant; Z94.4 Liver transplant status; Z41.8 Encounter for other procedures for purposes other than remedying health state; E83.30 Disorder of phosphorus metabolism, unspecified; R73.02 Impaired glucose tolerance (oral); Z11.59 Encounter for screening for other viral diseases; T86.49 Other complications of liver transplant
CPT/HCPCS: 36415; 80053; 80197; 80321; 85025; 87517